=== PATIENT | male | born 1960 | race Caucasian/White ===

== ENCOUNTER 2023-04-08 11:30 | Outpatient (REF) | payer OTHER, SELFPAY ==
[2023-04-08 15:48] LABS: Bilirubin Urine NEGATIVE (NEGATIVE); Blood Urine TRACE-I (NEGATIVE); Clarity Urine CLEAR (CLEAR); Color Urine LT. YELLOW (YELLOW); Glucose Urine UA NEGATIVE (NEGATIVE); Ketones Urine NEGATIVE (NEGATIVE); Leukocyte Esterase Urine TRACE (NEGATIVE); Nitrite Urine NEGATIVE (NEGATIVE); Protein Urine NEGATIVE (NEG/TRACE); Specific Gravity Urine 1.025 (1.005-1.025); Urobilinogen Urine 0.2 EU/dL (0.2-1.0); pH Urine 5.5 (5.0-9.0)
[2023-04-08 15:54] LABS: Bacteria Urine TRACE #/HPF (NONE SEEN); Crystals Seen? Seen #/HPF (None Seen); Mucus Urine NONE SEEN (NONE SEEN); Squamous Epithelial Cell Urine RARE #/LPF (NONE/RARE)
[2023-04-08 15:55] LABS: Calcium Oxalate Crystals Urine FEW; Cast Seen? NONE SEEN #/LPF (NONE SEEN); Urine Culture Indicated ALREADY ORDERED
== END 2023-04-08 11:53 ==
LOC: LAB 11:30
PROVIDERS: PCP Family Medicine; Visit Provider Family Medicine
DX: N31.9 Neuromuscular dysfunction of bladder, unspecified (principal)
CPT/HCPCS: 81001; 81003; 87086

== ENCOUNTER 2023-04-22 08:00 | Outpatient (REF) | payer OTHER, SELFPAY | END 2023-04-22 08:01 | LOC: LAB 08:00 | PROVIDERS: PCP Family Medicine; Visit Provider Family Medicine | DX: N31.9 Neuromuscular dysfunction of bladder, unspecified (principal) | CPT/HCPCS: 87086; 87150; 87186 ==

== ENCOUNTER 2023-05-14 14:20 | Outpatient (REF) | payer OTHER, SELFPAY ==
[2023-05-14 15:00] LABS: Bilirubin Urine NEGATIVE (NEGATIVE); Blood Urine TRACE-I (NEGATIVE); Clarity Urine CLEAR (CLEAR); Color Urine LT. YELLOW (YELLOW); Glucose Urine UA NEGATIVE (NEGATIVE); Ketones Urine NEGATIVE (NEGATIVE); Leukocyte Esterase Urine SMALL (NEGATIVE); Nitrite Urine NEGATIVE (NEGATIVE); Protein Urine NEGATIVE (NEG/TRACE); Specific Gravity Urine 1.015 (1.005-1.025); Urobilinogen Urine 0.2 EU/dL (0.2-1.0); pH Urine 5.5 (5.0-9.0)
[2023-05-14 15:44] LABS: Bacteria Urine SMALL #/HPF (NONE SEEN); Mucus Urine NONE SEEN (NONE SEEN); Squamous Epithelial Cell Urine FEW #/LPF (NONE/RARE); WBC Urine 20-50 #/HPF (NONE SEEN)
[2023-05-14 15:45] LABS: Cast Seen? NONE SEEN #/LPF (NONE SEEN); Crystals Seen? None Seen #/HPF (None Seen)
[2023-05-14 15:46] LABS: Urine Culture Indicated ALREADY ORDERED
== END 2023-05-14 14:21 | disposition home or self-care (01) ==
LOC: LAB 14:20
PROVIDERS: PCP Family Medicine; Visit Provider Family Medicine
DX: N31.9 Neuromuscular dysfunction of bladder, unspecified (principal)
CPT/HCPCS: 81001; 87086; 87150; 87186

== ENCOUNTER 2023-06-05 12:43 | Outpatient (REF) | payer OTHER, SELFPAY ==
[2023-06-05 12:51] LABS: Bilirubin Urine NEGATIVE (NEGATIVE); Blood Urine MODERATE (NEGATIVE); Clarity Urine CLEAR (CLEAR); Color Urine LT. YELLOW (YELLOW); Glucose Urine UA NEGATIVE (NEGATIVE); Ketones Urine NEGATIVE (NEGATIVE); Leukocyte Esterase Urine LARGE (NEGATIVE); Nitrite Urine NEGATIVE (NEGATIVE); Protein Urine NEGATIVE (NEG/TRACE); Urobilinogen Urine 0.2 EU/dL (0.2-1.0); pH Urine 5.5 (5.0-9.0)
[2023-06-05 13:09] LABS: Bacteria Urine SMALL #/HPF (NONE SEEN); Mucus Urine NONE SEEN (NONE SEEN); Squamous Epithelial Cell Urine NONE SEEN #/LPF (NONE/RARE); WBC Urine 20-50 #/HPF (NONE SEEN)
[2023-06-05 13:10] LABS: Cast Seen? NONE SEEN #/LPF (NONE SEEN); Crystals Seen? None Seen #/HPF (None Seen)
== END 2023-06-05 12:44 | disposition home or self-care (01) ==
LOC: LAB 12:43
PROVIDERS: PCP Family Medicine; Visit Provider Family Medicine
DX: N31.9 Neuromuscular dysfunction of bladder, unspecified (principal)
CPT/HCPCS: 81001; 87086; 87150; 87186

== ENCOUNTER 2023-06-25 14:51 | Outpatient (REF) | payer OTHER, SELFPAY ==
[2023-06-25 15:01] LABS: Bilirubin Urine NEGATIVE (NEGATIVE); Blood Urine SMALL (NEGATIVE); Clarity Urine CLEAR (CLEAR); Color Urine LT. YELLOW (YELLOW); Glucose Urine UA NEGATIVE (NEGATIVE); Ketones Urine NEGATIVE (NEGATIVE); Leukocyte Esterase Urine LARGE (NEGATIVE); Nitrite Urine NEGATIVE (NEGATIVE); Protein Urine TRACE mg/dL (NEG/TRACE); Urobilinogen Urine 0.2 EU/dL (0.2-1.0); pH Urine 5.5 (5.0-9.0)
[2023-06-25 15:06] LABS: Bacteria Urine TRACE #/HPF (NONE SEEN); Mucus Urine NONE SEEN (NONE SEEN); RBC Urine 0-2 #/HPF (0-2); WBC Urine 75-100 #/HPF (NONE SEEN)
[2023-06-25 15:07] LABS: Cast Seen? NONE SEEN #/LPF (NONE SEEN); Crystals Seen? None Seen #/HPF (None Seen); Squamous Epithelial Cell Urine NONE SEEN #/LPF (NONE/RARE); Urine Culture Indicated ALREADY ORDERED
== END 2023-06-25 14:52 | disposition home or self-care (01) ==
LOC: LAB 14:51
PROVIDERS: PCP Family Medicine; Visit Provider Family Medicine
DX: N31.9 Neuromuscular dysfunction of bladder, unspecified (principal)
CPT/HCPCS: 81001; 87086

== ENCOUNTER 2023-07-10 10:06 | Outpatient (REF) | payer OTHER, SELFPAY ==
[2023-07-10 16:01] LABS: Bilirubin Urine NEGATIVE (NEGATIVE); Blood Urine TRACE-I (NEGATIVE); Clarity Urine CLEAR (CLEAR); Color Urine LT. YELLOW (YELLOW); Glucose Urine UA NEGATIVE (NEGATIVE); Ketones Urine NEGATIVE (NEGATIVE); Leukocyte Esterase Urine MODERATE (NEGATIVE); Nitrite Urine NEGATIVE (NEGATIVE); Protein Urine NEGATIVE (NEG/TRACE); Urobilinogen Urine 0.2 EU/dL (0.2-1.0); pH Urine 5.5 (5.0-9.0)
[2023-07-10 16:53] LABS: Bacteria Urine MODERATE #/HPF (NONE SEEN); Crystals Seen? None Seen #/HPF (None Seen); Mucus Urine NONE SEEN (NONE SEEN); RBC Urine 0-2 #/HPF (0-2); Squamous Epithelial Cell Urine FEW #/LPF (NONE/RARE); WBC Urine 20-50 #/HPF (NONE SEEN)
[2023-07-10 16:54] LABS: Cast Seen? NONE SEEN #/LPF (NONE SEEN); Urine Culture Indicated ALREADY ORDERED
== END 2023-07-10 10:07 | disposition home or self-care (01) ==
LOC: LAB 10:06
PROVIDERS: PCP Family Medicine; Visit Provider Family Medicine
DX: N31.9 Neuromuscular dysfunction of bladder, unspecified (principal); R82.998 Other abnormal findings in urine
CPT/HCPCS: 81001; 87086; 87150; 87186

== ENCOUNTER 2023-07-31 13:07 | Outpatient (REF) | payer OTHER, SELFPAY ==
[2023-07-31 13:26] LABS: Bilirubin Urine NEGATIVE (NEGATIVE); Blood Urine SMALL (NEGATIVE); Clarity Urine CLEAR (CLEAR); Color Urine LT. YELLOW (YELLOW); Glucose Urine UA NEGATIVE (NEGATIVE); Ketones Urine NEGATIVE (NEGATIVE); Leukocyte Esterase Urine LARGE (NEGATIVE); Nitrite Urine NEGATIVE (NEGATIVE); Protein Urine NEGATIVE (NEG/TRACE); Specific Gravity Urine <=1.005 (1.005-1.025); Urobilinogen Urine 0.2 EU/dL (0.2-1.0)
[2023-07-31 13:47] LABS: Bacteria Urine MODERATE #/HPF (NONE SEEN); WBC Urine >100 #/HPF (NONE SEEN)
[2023-07-31 13:48] LABS: Mucus Urine NONE SEEN (NONE SEEN); Squamous Epithelial Cell Urine FEW #/LPF (NONE/RARE); Urine Culture Indicated ALREADY ORDERED
== END 2023-07-31 13:08 | disposition home or self-care (01) ==
LOC: LAB 13:07
PROVIDERS: PCP Family Medicine; Visit Provider Family Medicine
DX: N31.9 Neuromuscular dysfunction of bladder, unspecified (principal)
CPT/HCPCS: 81001; 87086

== ENCOUNTER 2023-08-25 14:55 | Outpatient (OUT) | payer OTHER, SELFPAY ==
--- NOTE | 2023-08-25 14:59 | XR_ITS ---
The [address] [address] Patient Name: JESSICA PIZARRO MRN: [id number] date: 1960 Sex: M Assigned Patient Location: RAD Current Patient Location: Accession/Order Number: [id number] Exam Date: 08/25/2023 15:12 Report Date: 08/27/2023 09:15 At the request of: IHSAN PAREKH Procedure: XR foot LT min 3V PROCEDURE: XR foot LT min 3V HISTORY: Left Heel Ulcer COMPARISON: XR healed left 04/11/2021 FINDINGS: BONES:Multifocal mild degenerative joint disease. No appreciable bone destruction or bone erosion. SOFT TISSUES:Marked soft tissue swelling of the foot. Suspect skin surface defect along the plantar surface of heel. EFFUSION:None visible. OTHER: Negative. XR/XR foot LT min 3V IMPRESSION: 1. Marked soft tissue swelling. 2. No acute bone abnormality or findings to suggest osteomyelitis. Electronically authenticated by: ELENO PARKER Date: 08/27/2023 09:15
== END 2023-08-25 14:56 | disposition home or self-care (01) ==
LOC: RAD 14:55
PROVIDERS: PCP Family Medicine; Visit Provider Nurse Practitioner Adult Health
DX: L97.529 Non-pressure chronic ulcer of other part of left foot with unspecified severity (principal)
CPT/HCPCS: 73630

== ENCOUNTER 2023-09-08 13:49 | Outpatient (REF) | payer OTHER, SELFPAY ==
[2023-09-08 14:01] LABS: Bilirubin Urine NEGATIVE (NEGATIVE); Blood Urine SMALL (NEGATIVE); Color Urine LT. YELLOW (YELLOW); Glucose Urine UA NEGATIVE (NEGATIVE); Ketones Urine NEGATIVE (NEGATIVE); Leukocyte Esterase Urine LARGE (NEGATIVE); Nitrite Urine NEGATIVE (NEGATIVE); Protein Urine NEGATIVE (NEG/TRACE); Specific Gravity Urine 1.015 (1.005-1.025); Urobilinogen Urine 0.2 EU/dL (0.2-1.0)
[2023-09-08 14:02] LABS: Clarity Urine SLIGHTLY CLOUDY (CLEAR)
[2023-09-08 14:07] LABS: Bacteria Urine SMALL #/HPF (NONE SEEN); Cast Seen? NONE SEEN #/LPF (NONE SEEN); Crystals Seen? None Seen #/HPF (None Seen); Mucus Urine NONE SEEN (NONE SEEN); RBC Urine 0-2 #/HPF (0-2); Squamous Epithelial Cell Urine RARE #/LPF (NONE/RARE)
== END 2023-09-08 13:50 | disposition home or self-care (01) ==
LOC: LAB 13:49
PROVIDERS: PCP Family Medicine; Visit Provider Family Medicine
DX: N31.9 Neuromuscular dysfunction of bladder, unspecified (principal)
CPT/HCPCS: 81001; 87086; 87150; 87186

== ENCOUNTER 2023-09-24 13:42 | Outpatient (REF) | payer OTHER, SELFPAY ==
[2023-09-24 13:51] LABS: Bilirubin Urine NEGATIVE (NEGATIVE); Blood Urine TRACE-L (NEGATIVE); Clarity Urine CLEAR (CLEAR); Color Urine LT. YELLOW (YELLOW); Glucose Urine UA NEGATIVE (NEGATIVE); Ketones Urine NEGATIVE (NEGATIVE); Leukocyte Esterase Urine MODERATE (NEGATIVE); Nitrite Urine NEGATIVE (NEGATIVE); Protein Urine NEGATIVE (NEG/TRACE); Specific Gravity Urine 1.015 (1.005-1.025); Urobilinogen Urine 0.2 EU/dL (0.2-1.0)
[2023-09-24 13:57] LABS: Bacteria Urine TRACE #/HPF (NONE SEEN); Cast Seen? NONE SEEN #/LPF (NONE SEEN); Crystals Seen? None Seen #/HPF (None Seen); Mucus Urine NONE SEEN (NONE SEEN); Squamous Epithelial Cell Urine RARE #/LPF (NONE/RARE)
== END 2023-09-24 13:43 | disposition home or self-care (01) ==
LOC: LAB 13:42
PROVIDERS: PCP Family Medicine; Visit Provider Family Medicine
DX: N31.9 Neuromuscular dysfunction of bladder, unspecified (principal)
CPT/HCPCS: 81001; 87086

== ENCOUNTER 2023-10-02 14:23 | Outpatient (REF) | payer OTHER, SELFPAY ==
[2023-10-02 14:59] LABS: Bilirubin Urine NEGATIVE (NEGATIVE); Blood Urine SMALL (NEGATIVE); Clarity Urine CLEAR (CLEAR); Color Urine LT. YELLOW (YELLOW); Glucose Urine UA NEGATIVE (NEGATIVE); Ketones Urine NEGATIVE (NEGATIVE); Leukocyte Esterase Urine MODERATE (NEGATIVE); Nitrite Urine POSITIVE (NEGATIVE); Protein Urine NEGATIVE (NEG/TRACE); Specific Gravity Urine 1.015 (1.005-1.025); Urobilinogen Urine 0.2 EU/dL (0.2-1.0)
[2023-10-02 15:49] LABS: Bacteria Urine LARGE #/HPF (NONE SEEN); Mucus Urine NONE SEEN (NONE SEEN); Squamous Epithelial Cell Urine FEW #/LPF (NONE/RARE)
[2023-10-02 15:50] LABS: Cast Seen? NONE SEEN #/LPF (NONE SEEN); Crystals Seen? None Seen #/HPF (None Seen); Urine Culture Indicated ALREADY ORDERED
== END 2023-10-02 14:24 | disposition home or self-care (01) ==
LOC: LAB 14:23
PROVIDERS: PCP Family Medicine; Visit Provider Family Medicine
DX: N31.9 Neuromuscular dysfunction of bladder, unspecified (principal)
CPT/HCPCS: 81001; 87086; 87186

== ENCOUNTER 2023-10-21 12:59 | Outpatient (OUT) | payer OTHER, SELFPAY ==
[2023-10-21 13:11] LABS: Bilirubin Urine NEGATIVE (NEGATIVE); Blood Urine TRACE-I (NEGATIVE); Clarity Urine SLIGHTLY CLOUDY (CLEAR); Color Urine LT. YELLOW (YELLOW); Glucose Urine UA NEGATIVE (NEGATIVE); Ketones Urine NEGATIVE (NEGATIVE); Leukocyte Esterase Urine LARGE (NEGATIVE); Nitrite Urine NEGATIVE (NEGATIVE); Protein Urine NEGATIVE (NEG/TRACE); Urobilinogen Urine 0.2 EU/dL (0.2-1.0)
[2023-10-21 13:17] LABS: Bacteria Urine SMALL #/HPF (NONE SEEN); Cast Seen? NONE SEEN #/LPF (NONE SEEN); Crystals Seen? None Seen #/HPF (None Seen); Mucus Urine NONE SEEN (NONE SEEN); RBC Urine 0-2 #/HPF (0-2); Squamous Epithelial Cell Urine NONE SEEN #/LPF (NONE/RARE)
== END 2023-10-21 13:00 | disposition home or self-care (01) ==
LOC: LAB 10-22 13:00
PROVIDERS: PCP Family Medicine; Visit Provider Family Medicine
DX: N31.9 Neuromuscular dysfunction of bladder, unspecified (principal)
CPT/HCPCS: 81001; 87086; 87150; 87186

== ENCOUNTER 2023-11-10 14:34 | Outpatient (OUT) | payer OTHER, SELFPAY ==
--- OUTSIDE RECORDS SUMMARY | 2023-11-10 14:38 | XMS_ITS | CCD ---
Author Name Unknown Address [address] [facility] [facility] [address] [place] [address] Organization [facility] Care Team Providers Care Sprinkler Helper Name Role Phone HOY ., DR WEBBER Consulting Unavailable HOY ., DR WEBBER Admitting Unavailable HOY ., DR WEBBER Attending Unavailable HOY ., DR WEBBER Primary Care Unavailable HOY ., DR WEBBER Consulting Unavailable HOY ., DR WEBBER Attending Unavailable HOY ., DR WEBBER Admherman Unavailable HOY ., DR WEBBER Primary Care Unavailable HOY ., DR WEBBER Consulting Unavailable HOY ., DR WEBBER Attending Unavailable HOY ., DR WEBBER Primary Care Unavailable HOY ., DR WEBBER Admherman Unavailable WEST, DR MAGY [place] Consulting Unavailable HOY ., DR WEBBER Consulting Unavailable HOY ., DR WEBBER Attending Unavailable HOY ., DR WEBBER Admherman Unavailable HOY ., DR WEBBER Primary Care Unavailable HOY ., DR WEBBER Consulting Unavailable HOY ., DR WEBBER Attending Unavailable HOY ., DR WEBBER Admherman Unavailable HOY ., DR WEBBER Primary Care Unavailable HOY ., DR WEBBER Consulting Unavailable HOY ., DR WEBBER Admherman Unavailable HOY ., DR WEBBER Attending Unavailable HOY ., DR WEBBER Primary Care Unavailable HOY ., DR WEBBER Consulting Unavailable HOY ., DR WEBBER Attending Unavailable HOY ., DR WEBBER Primary Care Unavailable HOY ., DR WEBBER Admherman Unavailable HOY ., DR WEBBER Consulting Unavailable HOY ., DR WEBBER Attending Unavailable HOY ., DR WEBBER Primary Care Unavailable HOY ., DR WEBBER Admitting Unavailable HOY ., DR WEBBER Consulting Unavailable HOY ., DR WEBBER Admherman Unavailable HOY ., DR WEBBER Attending Unavailable HOY ., DR WEBBER Primary Care Unavailable HOY ., DR WEBBER Primary Care Unavailable HOY ., DR WEBBER Admherman Unavailable HOY ., DR WEBBER Attending Unavailable HOY ., DR WEBBER Consulting Unavailable HOY ., DR WEBBER Admitting Unavailable HOY ., DR WEBBER Attending Unavailable HOY ., DR WEBBER Primary Care Unavailable HOY ., DR WEBBER Consulting Unavailable HOY ., DR WEBBER Admitting Unavailable HOY ., DR WEBBER Attending Unavailable HOY ., DR WEBBER Consulting Unavailable HOY ., DR WEBBER Primary Care Unavailable HOY ., DR WEBBER Primary Care Unavailable HOY ., DR WEBBER Admitting Unavailable HOY ., DR WEBBER Attending Unavailable HOY ., DR WEBBER Consulting Unavailable HOY ., DR WEBBER Primary Care Unavailable HOY ., DR WEBBER Admitting Unavailable HOY ., DR WEBBER Attending Unavailable HOY ., DR WEBBER Consulting Unavailable HOY ., DR WEBBER Admitting Unavailable HOY ., DR WEBBER Attending Unavailable HOY ., DR WEBBER Primary Care Unavailable HOY ., DR WEBBER Consulting Unavailable HOY ., DR WEBBER Primary Care Unavailable HOY ., DR WEBBER Admitting Unavailable HOY ., DR WEBBER Attending Unavailable HOY ., DR WEBBER Consulting Unavailable HOY ., DR WEBBER Consulting Unavailable HOY ., DR WEBBER Attending Unavailable HOY ., DR WEBBER Primary Care Unavailable HOY ., DR WEBBER Admitting Unavailable ZIEBER, DR ELENO Vo Consulting Unavailable HOY ., DR WEBBER Consulting Unavailable HOY ., DR WEBBER Attending Unavailable HOY ., DR WEBBER Primary Care Unavailable HOY ., DR WEBBER Admitting Unavailable HOY ., DR WEBBER Consulting Unavailable HOY ., DR WEBBER Attending Unavailable HOY ., DR WEBBER Admitting Unavailable HOY ., DR WEBBER Primary Care Unavailable DAREN, FIRAS Referring Unavailable Allergies Allergy Classification Reported Allergen(s) Allergy Type Date of Onset Reaction(s) Facility (1 source) ceFAZolin Drug Allergy 04-21-[address] [facility] Repository (1 source) Cilastatin / Imipenem Drug Allergy 04-21-[address] [facility] Repository (1 source) Readi-Cat Drug allergy (disorder) 04-21-[address] [facility] Repository (1 source) ceFAZolin; Translations: [CEFAZOLIN] Drug Allergy 12-01-19 13 [facility] Repository (1 source) Cephalexin; Translations: [CEPHALEXIN MONOHYDRATE] Drug Allergy 08-03-20 09 [facility] Repository (1 source) Promazine; Translations: [PROMAZINE] Drug Allergy 12-01-19 13 [facility] Repository (1 source) Sulfamethoxazole / Trimethoprim; Translations: [SULFAMETHOXAZOLE-TR IMETHOPRIM] Drug Allergy 03-10-20 23 [facility] Repository (1 source) IODINATED CONTRAST MEDIA; Translations: [IODINATED CONTRAST MEDIA] Propensity to adverse reactions to drug (disorder) 12-01-19 13 [facility] Repository Problems Active Problems Problem Classification Problem Date Documented Date Episodic/Chronic Other diseases of bladder and urethra (5 sources) Neuromuscular dysfunction of bladder, unspecified; Translations: [NEUROMUSCULR DYSFNCTION BLADDER UNS] Onset: 10-01-2022 Chronic Other diseases of bladder and urethra (2 sources) Bladder disorder, unspecified; Translations: [Bladder disorder, unspecified] Onset: 03-10-2023 Chronic Other diseases of kidney and ureters (1 source) Disorder of kidney and ureter, unspecified; Translations: [DISORDER KIDNEY AND URETER UNS] Onset: 12-05-2022 Episodic Other liver diseases (1 source) Hepatomegaly, not elsewhere classified; Translations: [HEPATOMEGALY NEC] Onset: 12-05-2022 Episodic Other screening for suspected conditions (not mental disorders or infectious disease) (1 source) Abnormal findings on diagnostic imaging of other abdominal regions, including retroperitoneum; Translations: [ABN FIND DX IMAG OTH AB REGION W/RP] Onset: 12-05-2022 Episodic Past or Other Problems Problem Classification Problem Date Documented Da te Episodic/Chronic Urinary tract infections (5 sources) Urinary tract infection, site not specified; Translations: [UTI SITE NOT SPECIFIED] Onset: 09-24-2022 Episodic Results Test Name Value Interpretation Reference Range Facil ity Aerobic Cultureon 06-03-2023 Aerobic Culture ORGANISM: Staphylococcus aureus (O:STAAUR) Quantity of Growth Light Growth ORGANISM: Alcaligenes faecalis (O:ALCFAE) Quantity of Growth Light Growth No Anaerobes Isolated 3 Days Gram Stain Result No Bacteria Seen Aerobic GUSTABO Charge (PCMIC38) ---- SUSCEPTIBILITY --- ORGANISM: O:STAAUR ANTIBIOTIC INTERPRETATION GUSTABO Azithromycin R >4 Ceftaroline S <0.5 Ciprofloxacin R >2 Clindamycin S <0.25 Daptomycin S <0.5 Levofloxacin R >4 Linezolid S 2 Oxacillin S 0.5 Penicillin COREY >2 Tetracycline S <4 Trimethoprim/Sulfamet hoxazole R >2 Vancomycin S 1 Aerobic GUSTABO Charge (NMIC56) ---- SUSCEPTIBILITY --- ORGANISM: O:ALCFAE ANTIBIOTIC INTERPRETATION GUSTABO Amikacin S <16 Aztreonam R >16 Cefepime S 8 Ceftazidime S 4 Ceftriaxone S <1 Gentamicin S <2 Piperacillin/Tazobact am S <8 Tetracycline S <4 Tobramycin S 4 Trimethoprim/Sulfamet hoxazole S <0.5 S = SUSCEPTIBLE I = INTERMEDIATE R = RESISTANT BLANK = DATA NOT AVAILABLE, OR DRUG NOT ADVISABLE OR TESTED R* = RESISTANCE DUE TO EXTENDED SPECTRUM BETA-LACTAMASES ESBL = EXTENDED SPECTRUM BETA-LACTAMASE TFG = THYMIDINE-DEPENDENT STRAIN COREY = BETA-LACTAMASE POSITIVE IB = INDUCIBLE BETA-LACTAMASE. APPEARS IN PLACE OF 'S' WITH SPECIES KNOWN TO POSSESS INDUCIBLE BETA-LACTAMASES. POTENTIALLY THEY MAY BECOME RESISTANT TO ALL B-LACTAM DRUGS. PERFORMED BY: [place] [address] PATHOLOGIST RADIO TECHNICIAN MARLA VEGA M.D. [facility] Comment on above: Performed By: #### A MAI LAYNE #### [address] Gram Stainon 06-03-2023 Microscopic observation Gram stain Nom (Unsp spec) Gram Stain Result No Bacteria Seen PERFORMED BY: [place] [address] PATHOLOGIST RADIO TECHNICIAN MARLA VEGA M.D. [facility] Comment on above: Performed By: #### A MAI LAYNE #### [address] [place] [address] [facility] CULTURE URINEon 03-06-2023 CULTURE URINE Isolate 1 Serratia marcescens >100,000 cfu/mL of Isolate 2 Pseudomonas aeruginosa >100,000 cfu/mL of ORGANISM 1 Serratia marcescens ANTIBIOTIC M.I.C RX STATUS Cefazolin >=64 R F Ceftazidime <=1 S F Ceftriaxone <=1 S F Ertapenem <=0.5 S F Amikacin <=2 S F Gentamicin <=1 S F Tobramycin <=1 S F Ciprofloxacin <=0.25 S F Levofloxacin <=0.12 S F Nitrofurantoin 128 R F Trimethoprim/Sulfamet hoxazole <=20 S F ORGANISM 2 Pseudomonas aeruginosa ANTIBIOTIC M.I.C RX STATUS Piperacillin/Tazobact am 32 S F Ceftazidime 8 S F Imipenem 1 S F Amikacin <=2 S F Gentamicin <=1 S F Tobramycin <=1 S F Ciprofloxacin 0.5 S F Levofloxacin 2 S F Normal [facility] Comment on above: Performed By: #### U RCX #### [facility] [address] [place] [address] Dr. Marvin Reis UA RANDOM W/MICROSCOPICon BACTERIA SMALL Abnormal NONE SEEN [facility] Comment on above: Performed By: #### U AMIC #### [facility] [address] [place] [address] Dr. Marvin Reis Bilirubin Ql (U) Negative Normal NEGATIVE [facility] Comment on above: Performed By: #### U AMIC #### [facility] [address] [place] [address] Dr. Marvin Reis CAST NONE SEEN Normal NONE SEEN [facility] Comment on above: Performed By: #### U AMIC #### [facility] [address] [place] [address] Dr. Marvin Reis Clarity (U) CLEAR Normal CLEAR [facility] Comment on above: Performed By: #### U AMIC #### [facility] [address] [place] [address] Dr. Marvin Reis Color (U) LT. YELLOW Normal YELLOW [facility] Comment on above: Performed By: #### U AMIC #### [facility] [address] [address] [address] Marvin Reis Crystals LM Nom (Urine sed) NONE SEEN Normal NONE SEEN [facility] Comment on above: Performed By: #### U AMIC #### [facility] [address] [address] [address] Marvin Reis Epithelial cells LM Ql (Urine sed) RARE Normal NONE SEEN /RARE [facility] Comment on above: Performed By: #### U AMIC #### [facility] [address] [address] [address] Marvin Reis Glucose Ql (U) Negative Normal NEGATIVE [facility] Comment on above: Performed By: #### U AMIC #### [facility] [address] [address] [address] Marvin Reis Hemoglobin Ql (U) Negative Normal NEGATIVE [facility] Comment on above: Performed By: #### U AMIC #### [facility] [address] [address] [address] Marvin Reis Ketones Ql (U) Negative Normal NEGATIVE [facility] Comment on above: Performed By: #### U AMIC #### [facility] [address] [address] [address] Marvin Reis LEUKOCYTES SMALL Abnormal NEGATIVE [facility] Comment on above: Performed By: #### U AMIC #### [facility] [address] [address] [address] Marvin Reis MUCOUS NONE SEEN Normal NONE SEEN [facility] Comment on above: Performed By: #### U AMIC #### [facility] [address] [address] [address] Marvin Reis Nitrite Ql (U) Negative Normal NEGATIVE [facility] Comment on above: Performed By: #### U AMIC #### [facility] [address] [address] [address] Marvin Reis pH (U) 6.0 [pH] Normal 5-[address] [facility] Comment on above: Performed By: #### U AMIC #### [facility] [address] [place] [address] Dr. Marvin Reis RBC 0-2 Normal 0-[address] [facility] Comment on above: Performed By: #### U AMIC #### [facility] [address] [place] [address] Dr. Marvin Reis SPEC GRAVITY 1.010 Normal 1.005-<=1.025 [facility] Comment on above: Performed By: #### U AMIC #### [facility] [address] [place] [address] Dr. Marvin Reis UA PROTEIN Negative Normal NEGATIVE/ TRACE [facility] Comment on above: Performed By: #### U AMIC #### [facility] [address] [place] [address] Dr. Marvin Reis Urobilinogen Qn (U) 0.2 {Robbie'U}/dL Normal 0.2 - 1. 0 [facility] Comment on above: Performed By: #### U AMIC #### [facility] [address] [place] [address] Dr. Marvin Reis WBC 5-10 Abnormal NONE SEEN [facility] Comment on above: Performed By: #### U AMIC #### [facility] [address] [place] [address] Dr. Marvin Reis CULTURE URINEon 02-13-2023 CULTURE URINE Isolate 1 Klebsiella pneumoniae >100,000 cfu/mL of Isolate 2 Pseudomonas aeruginosa >100,000 cfu/ml of ORGANISM 1 Klebsiella pneumoniae ANTIBIOTIC M.I.C RX STATUS Ampicillin >=32 R F Ampicillin/Sulbactam 4 S F Piperacillin/Tazobact am 8 S F Cefazolin <=4 S F Ceftazidime <=1 S F Ceftriaxone <=1 S F Ertapenem <=0.5 S F Imipenem <=0.25 S F Amikacin <=2 S F Gentamicin <=1 S F Tobramycin <=1 S F Ciprofloxacin 1 S F Levofloxacin 1 S F Nitrofurantoin 128 R F Trimethoprim/Sulfamet hoxazole <=20 S F ORGANISM 2 Pseudomonas aeruginosa ANTIBIOTIC M.I.C RX STATUS Piperacillin/Tazobact am 32 S F Ceftazidime 4 S F Imipenem 1 S F Amikacin <=2 S F Gentamicin <=1 S F Tobramycin <=1 S F Ciprofloxacin 1 S F Levofloxacin 2 S F Normal [facility] Comment on above: Performed By: #### U RCX #### [facility] [address] [place] [address] Dr. Marvin Reis UA RANDOM W/MICROSCOPICon BACTERIA MODERATE Abnormal NONE SEEN [facility] Comment on above: Performed By: #### U AMIC #### [facility] [address] [place] [address] Dr. Marvin Reis Bilirubin Ql (U) Negative Normal NEGATIVE [facility] Comment on above: Performed By: #### U AMIC #### [facility] [address] [place] [address] Dr. Marvin Reis CAST NONE SEEN Normal NONE SEEN [facility] Comment on above: Performed By: #### U AMIC #### [facility] [address] [place] [address] Dr. Marvin Reis Clarity (U) CLEAR Normal CLEAR [facility] Comment on above: Performed By: #### U AMIC #### [facility] [address] [place] [address] Dr. Marvin Reis Color (U) LT. YELLOW Normal YELLOW [facility] Comment on above: Performed By: #### U AMIC #### [facility] [address] [place] [address] Dr. Marvin Reis Crystals LM Nom (Urine sed) NONE SEEN Normal NONE SEEN [facility] Comment on above: Performed By: #### U AMIC #### [facility] [address] [place] [address] Dr. Marvin Reis Epithelial cells LM Ql (Urine sed) MODERATE Abnormal NONE SEEN /RARE [facility] Comment on above: Performed By: #### U AMIC #### [facility] [address] [place] [address] Dr. Marvin Reis Glucose Ql (U) Negative Normal NEGATIVE [facility] Comment on above: Performed By: #### U AMIC #### [facility] [address] [address] [address] Marvin Reis Hemoglobin Ql (U) SMALL Abnormal NEGATIVE [facility] Comment on above: Performed By: #### U AMIC #### [facility] [address] [address] [address] Marvin Reis Ketones Ql (U) Negative Normal NEGATIVE [facility] Comment on above: Performed By: #### U AMIC #### [facility] [address] [place] [address] Dr. Marvin Reis LEUKOCYTES LARGE Abnormal NEGATIVE [facility] Comment on above: Performed By: #### U AMIC #### [facility] [address] [place] [address] Dr. Marvin Reis MUCOUS NONE SEEN Normal NONE SEEN [facility] Comment on above: Performed By: #### U AMIC #### [facility] [address] [place] [address] Dr. Marvin Reis Nitrite Ql (U) Positive Abnormal NEGATIVE [facility] Comment on above: Performed By: #### U AMIC #### [facility] [address] [place] [address] Dr. Marvin Reis pH (U) 5.5 [pH] Normal 5-[address] [facility] Comment on above: Performed By: #### U AMIC #### [facility] [address] [place] [address] Dr. Marvin Reis RBC 5-10 Abnormal 0-[address] [facility] Comment on above: Performed By: #### U AMIC #### [facility] [address] [place] [address] Dr. Marvin Reis SPEC GRAVITY 1.015 Normal 1.005-<=1.025 [facility] Comment on above: Performed By: #### U AMIC #### [facility] [address] [place] [address] Dr. Marvin Reis UA PROTEIN Negative Normal NEGATIVE/ TRACE [facility] Comment on above: Performed By: #### U AMIC #### [facility] [address] [place] [address] Dr. Marvin Reis Urobilinogen Qn (U) 0.2 {Robbie'U}/dL Normal 0.2 - 1. [address] [facility] Comment on above: Performed By: #### U AMIC #### [facility] [address] [place] [address] Dr. Marvin Reis WBC 50-75 Abnormal [address] SEEN [facility] Comment on above: Performed By: #### U AMIC #### [facility] [address] [place] [address] Dr. Marvin Reis CULTURE URINEon 01-23-2023 CULTURE URINE Isolate 1 Staphylococcus haemolyticus >100,000 cfu/mL of Isolate 2 Enterococcus faecium >100,000 cfu/mL of ORGANISM 2 Enterococcus faecium ANTIBIOTIC M.I.C RX STATUS Beta-Lactamase Neg NEG F Benzylpenicillin 1 S F Ampicillin <=2 S F Gentamicin High Level (synergy) SYN-S S F Streptomycin High Level (synergy) SYN-S S F Ciprofloxacin <=0.5 S F Levofloxacin 0.5 S F Quinupristin/Dalfopri stin 1 S F Linezolid 2 S F Vancomycin <=0.5 S F Tetracycline >=16 R F Nitrofurantoin 64 I F ORGANISM 1 Staphylococcus haemolyticus ANTIBIOTIC M.I.C RX STATUS Beta-Lactamase Pos POS F Cefoxitin Screen Pos POS F Benzylpenicillin >=0.5 R F Oxacillin >=4 R F Gentamicin <=0.5 S F Ciprofloxacin <=0.5 S F Levofloxacin <=0.12 S F Inducible Clindamycin Resistance Pos POS F Quinupristin/Dalfopri stin <=0.25 S F Linezolid 1 S F Vancomycin <=0.5 S F Tetracycline >=16 R F Nitrofurantoin <=16 S F Rifampicin <=0.5 S F Trimethoprim/Sulfamet hoxazole <=10 S F Normal [address] [facility] Comment on above: Performed By: #### U AMIC #### [facility] [address] [place] [address] Dr. Marvin Reis UA RANDOM W/MICROSCOPICon BACTERIA TRACE Abnormal NONE SEEN [facility] Comment on above: Performed By: #### U AMIC #### [facility] [address] [address] [address] Marvin Reis Bilirubin Ql (U) Negative Normal NEGATIVE [facility] Comment on above: Performed By: #### U AMIC #### [facility] [address] [address] [address] Marvin Reis CAST NONE SEEN Normal NONE SEEN [facility] Comment on above: Performed By: #### U AMIC #### [facility] [address] [address] [address] Marvin Reis Clarity (U) SL CLOUDY Abnormal CLEAR [facility] Comment on above: Performed By: #### U AMIC #### [facility] [address] [address] [address] Marvin Reis Color (U) LT. YELLOW Normal YELLOW [facility] Comment on above: Performed By: #### U AMIC #### [facility] [address] [place] [address] Dr. Marvin Reis Crystals LM Nom (Urine sed) NONE SEEN Normal NONE SEEN [facility] Comment on above: Performed By: #### U AMIC #### [facility] [address] [place] [address] Dr. Marvin Reis Epithelial cells LM Ql (Urine sed) NONE SEEN Normal NONE SEEN /RARE [facility] Comment on above: Performed By: #### U AMIC #### [facility] [address] [place] [address] Dr. Marvin Reis Glucose Ql (U) Negative Normal NEGATIVE [facility] Comment on above: Performed By: #### U AMIC #### [facility] [address] [place] [address] Dr. Marvin Reis Hemoglobin Ql (U) Negative Normal NEGATIVE [facility] Comment on above: Performed By: #### U AMIC #### [facility] [address] [place] [address] Dr. Marvin Reis Ketones Ql (U) Negative Normal NEGATIVE [facility] Comment on above: Performed By: #### U AMIC #### [facility] [address] [place] [address] Dr. Marvin Reis LEUKOCYTES TRACE Abnormal NEGATIVE [facility] Comment on above: Performed By: #### U AMIC #### [facility] [address] [address] [address] Marvin Reis MUCOUS NONE SEEN Normal NONE SEEN [facility] Comment on above: Performed By: #### U AMIC #### [facility] [address] [address] [address] Marvin Reis Nitrite Ql (U) Negative Normal NEGATIVE [facility] Comment on above: Performed By: #### U AMIC #### [facility] [address] [place] [address] Dr. Marvin Reis pH (U) 6.0 [pH] Normal 5-[address] [facility] Comment on above: Performed By: #### U AMIC #### [facility] [address] [place] [address] Dr. Marvin Reis RBC NONE SEEN Abnormal 0-[address] [facility] Comment on above: Performed By: #### U AMIC #### [facility] [address] [place] [address] Dr. Marvin Reis SPEC GRAVITY 1.020 Normal 1.005-<=1.025 [facility] Comment on above: Performed By: #### U AMIC #### [facility] [address] [place] [address] Dr. Marvin Reis UA PROTEIN Negative Normal NEGATIVE/ TRACE [facility] Comment on above: Performed By: #### U AMIC #### [facility] [address] [place] [address] Dr. Marvin Reis Urobilinogen Qn (U) 0.2 {Robbie'U}/dL Normal 0.2 - 1. [address] [facility] Comment on above: Performed By: #### U AMIC #### [facility] [address] [place] [address] Dr. Marvin Reis WBC 10-20 Abnormal N[address] SEEN [facility] Comment on above: Performed By: #### U AMIC #### [facility] [address] [place] [place] [address] Dr. Marvin Reis CULTURE URINEon 01-07-2023 CULTURE URINE Isolate 1 Dawna albicans 10,000 cfu/mL of Normal [facility] Comment on above: Performed By: #### U RCX #### [facility] [address] [place] [address] Dr. Marvin Reis UA RANDOM W/MICROSCOPICon BACTERIA TRACE Abnormal NONE SEEN [facility] Comment on above: Performed By: #### U AMIC #### [facility] [address] [place] [address] Dr. Marvin Reis Bilirubin Ql (U) Negative Normal NEGATIVE [facility] Comment on above: Performed By: #### U AMIC #### [facility] [address] [place] [address] Dr. Marvin Reis CA OX CRYSTALS RARE Normal [facility] Comment on above: Performed By: #### U AMIC #### [facility] [address] [place] [address] Dr. Marvin Reis CAST NONE SEEN Normal NONE SEEN [facility] Comment on above: Performed By: #### U AMIC #### [facility] [address] [place] [address] Dr. Marvin Reis Clarity (U) CLEAR Normal CLEAR [facility] Comment on above: Performed By: #### U AMIC #### [facility] [address] [place] [address] Dr. Marvin Reis Color (U) LT. YELLOW Normal YELLOW [facility] Comment on above: Performed By: #### U AMIC #### [facility] [address] [place] [address] Dr. Marvin Reis Crystals LM Nom (Urine sed) SEEN Abnormal NONE SEEN [facility] Comment on above: Performed By: #### U AMIC #### [facility] [address] [place] [address] Dr. Marvin Reis Epithelial cells LM Ql (Urine sed) FEW Abnormal NONE SEEN /RARE [facility] Comment on above: Performed By: #### U AMIC #### [facility] [address] [place] [address] Dr. Marvin Reis Glucose Ql (U) Negative Normal NEGATIVE [facility] Comment on above: Performed By: #### U AMIC #### [facility] [address] [address] [address] Marvin Reis Hemoglobin Ql (U) Negative Normal NEGATIVE [facility] Comment on above: Performed By: #### U AMIC #### [facility] [address] [address] [address] Marivn Reis Ketones Ql (U) Negative Normal NEGATIVE [facility] Comment on above: Performed By: #### U AMIC #### [facility] [address] [address] [address] Marvin Reis LEUKOCYTES SMALL Abnormal NEGATIVE [facility] Comment on above: Performed By: #### U AMIC #### [facility] [address] [address] [address] Marvin Reis MUCOUS NONE SEEN Normal NONE SEEN [facility] Comment on above: Performed By: #### U AMIC #### [facility] [address] [address] [address] Marvin Reis Nitrite Ql (U) Negative Normal NEGATIVE [facility] Comment on above: Performed By: #### U AMIC #### [facility] [address] [address] [address] Marvin Reis pH (U) 5.5 [pH] Normal 5-9 [facility] Comment on above: Performed By: #### U AMIC #### [facility] [address] [address] [address] Marvin Reis RBC 0-2 Normal 0-2 [facility] Comment on above: Performed By: #### U AMIC #### [facility] [address] [address] [address] Marvin Reis SPEC GRAVITY 1.015 Normal 1.005-<=1.025 [facility] Comment on above: Performed By: #### U AMIC #### [facility] [address] [address] [address] Marvin Reis UA PROTEIN Negative Normal NEGATIVE/ TRACE [facility] Comment on above: Performed By: #### U AMIC #### [facility] [address] [address] [address] Marvin Reis Urobilinogen Qn (U) 0.2 {Robbie'U}/dL Normal 0.2 - 1. [address] [facility] Comment on above: Performed By: #### U AMIC #### [facility] [address] [place] [address] Dr. Marvin Reis WBC 50-75 Abnormal NONE SEEN [facility] Comment on above: Performed By: #### U AMIC #### [facility] [address] [place] [address] Dr. Marvin Reis YEAST PRESENT Abnormal NONE SEEN [facility] Comment on above: Performed By: #### U AMIC #### [facility] [address] [place] [address] Dr. Marvin Reis CULTURE URINEon 12-25-2022 CULTURE URINE Culture Observations : METHICILLIN RESISTANT STAPH AUREUS ISOLATED. PLEASE FOLLOW APPROPRIATE ISOLATION PROCEDURES. Isolate 1 Staphylococcus aureus >100,000 cfu/mL of ORGANISM 1 Staphylococcus aureus ANTIBIOTIC M.I.C RX STATUS Beta-Lactamase Pos POS F Cefoxitin Screen Pos POS F Benzylpenicillin >=0.5 R F Oxacillin >=4 R F Ciprofloxacin >=8 R F Levofloxacin >=8 R F Inducible Clindamycin Resistance Neg NEG F Quinupristin/Dalfopri stin <=0.25 S F Linezolid 2 S F Vancomycin <=0.5 S F Tetracycline <=1 S F Nitrofurantoin <=16 S F Rifampicin <=0.5 S F Trimethoprim/Sulfamet hoxazole >=320 R F Normal [facility] Comment on above: Performed By: #### U RCX #### [facility] [address] [place] [address] Dr. Marvin Reis UA RANDOM W/MICROSCOPICon BACTERIA NONE SEEN Normal NONE SEEN [facility] Comment on above: Performed By: #### U AMIC #### [facility] [address] [place] [address] Dr. Marvin Reis Bilirubin Ql (U) Negative Normal NEGATIVE [facility] Comment on above: Performed By: #### U AMIC #### [facility] [address] [address] [address] Marvin Reis CAST NONE SEEN Normal NONE SEEN [facility] Comment on above: Performed By: #### U AMIC #### [facility] [address] [address] [address] Marvin Reis Clarity (U) CLEAR Normal CLEAR [facility] Comment on above: Performed By: #### U AMIC #### [facility] [address] [address] [address] Marvin Reis Color (U) LT. YELLOW Normal YELLOW [facility] Comment on above: Performed By: #### U AMIC #### [facility] [address] [address] [address] Marvin Reis Crystals LM Nom (Urine sed) NONE SEEN Normal NONE SEEN [facility] Comment on above: Performed By: #### U AMIC #### [facility] [address] [place] [address] Dr. Marvin Reis Epithelial cells LM Ql (Urine sed) RARE Normal NONE SEEN /RARE [facility] Comment on above: Performed By: #### U AMIC #### [facility] [address] [address] [address] Marvin Reis Glucose Ql (U) Negative Normal NEGATIVE [facility] Comment on above: Performed By: #### U AMIC #### [facility] [address] [place] [address] Dr. Marvin Reis Hemoglobin Ql (U) Negative Normal NEGATIVE [facility] Comment on above: Performed By: #### U AMIC #### [facility] [address] [address] [address] Marvin Reis Ketones Ql (U) Negative Normal NEGATIVE [facility] Comment on above: Performed By: #### U AMIC #### [facility] [address] [address] [address] Marvin Reis LEUKOCYTES MODERATE Abnormal NEGATIVE [facility] Comment on above: Performed By: #### U AMIC #### [facility] [address] [place] [address] Dr. Marvin Reis MUCOUS NONE SEEN Normal NONE SEEN [facility] Comment on above: Performed By: #### U AMIC #### [facility] [address] [address] [address] Marvin Reis Nitrite Ql (U) Negative Normal NEGATIVE [facility] Comment on above: Performed By: #### U AMIC #### [facility] [address] [place] [address] Dr. Marvin Reis pH (U) 5.5 [pH] Normal 5-[address] [facility] Comment on above: Performed By: #### U AMIC #### [facility] [address] [place] [address] Dr. Marvin Reis RBC NONE SEEN Abnormal 0-[address] [facility] Comment on above: Performed By: #### U AMIC #### [facility] [address] [place] [address] Dr. Marvin Reis SPEC GRAVITY 1.015 Normal 1.005-<=1.025 [facility] Comment on above: Performed By: #### U AMIC #### [facility] [address] [place] [address] Dr. Marvin Reis UA PROTEIN Negative Normal NEGATIVE/ TRACE [facility] Comment on above: Performed By: #### U AMIC #### [facility] [address] [place] [address] Dr. Marvin Reis Urobilinogen Qn (U) 0.2 {Robbie'U}/dL Normal 0.2 - 1. [address] [facility] Comment on above: Performed By: #### U AMIC #### [facility] [address] [place] [address] Dr. Marvin Reis WBC 10-20 Abnormal NONE SEEN [facility] Comment on above: Performed By: #### U AMIC #### [facility] [address] [place] [address] Dr. Marvin Reis CULTURE URINEon 12-05-2022 CULTURE URINE Isolate 1 Enterobacter aerogenes >100,000 cfu/ml of ORGANISM 1 Enterobacter aerogenes ANTIBIOTIC M.I.C RX STATUS Piperacillin/Tazobact am 32 I F Cefazolin >=64 R F Ceftazidime 16 I F Ceftriaxone 16 I F Ertapenem <=0.5 S F Imipenem 0.5 S F Amikacin <=2 S F Gentamicin <=1 S F Tobramycin <=1 S F Ciprofloxacin <=0.25 S F Levofloxacin <=0.12 S F Nitrofurantoin 128 R F Trimethoprim/Sulfamet hoxazole <=[address] F [address] [facility] Comment on above: Performed By: #### U RCX #### [facility] [address] [place] [address] Dr. Marvin Reis CREATININEon 12-03-2022 Creatinine [Mass/Vol] 0.88 mg/dL Normal 0.70-1.30 [facility] Comment on above: Performed By: #### U RCX #### [facility] [address] [place] [address] Dr. Marvin Reis EGFR-AF KOSOVAN >60 Normal >=60 [facility] Comment on above: Performed By: #### U RCX #### [facility] [address] [place] [address] Dr. Marvin Reis EGFR-NON AF KOSOVAN >60 Normal >=60 [facility] Comment on above: Performed By: #### U RCX #### [facility] [address] [place] [address] ABDOMEN WO/W CONon 2022 CT ABDOMEN WO/W CON EXAMINATION: CT ABDOMEN WO/W CON HISTORY: Liver structure ; right hepatic lobe lesion; right renal lesion COMPARISON: CT abdomen pelvis 11/20/2022 TECHNIQUE: Axial, Coronal, and Sagittal images were created without and with non-ionic intravenous contrast material. Dose reduction techniques were achieved by using automated exposure control and/or adjustment of mA and/or kV according to patient size and/or use of iterative reconstruction technique. FINDINGS: LUNG BASES: No visible pulmonary or pleural disease. LIVER: Small cleft within posterior lateral right hepatic lobe likely accounting for slightly decreased vascularity and appearance on prior study. No enlargement, atrophy, abnormal density, or significant focal lesion. BILIARY: A few tiny stones within noninflamed gallbladder. PANCREAS: No lesion, fluid collection, ductal dilatation, or atrophy. SPLEEN: No enlargement or focal lesion. ADRENALS: No mass or enlargement. KIDNEYS: Multiple small nonobstructing stones bilaterally. Multiple benign-appearing cysts bilaterally. 2.0 cm dense cysts within medial inferior pole of right kidney is nonenhancing and most compatible with a hemorrhagic cyst. Moderate-marked cortical thinning bilaterally. BOWEL/MESENTERY: No visible mass, obstruction, or bowel wall thickening. AORTA/VASCULAR: No aneurysm or dissection. Filter within the IVC. RETROPERITONEUM: No mass or adenopathy. ABDOMINAL WALL: No mass or hernia. BONES: No bony lesion or fracture. OTHER: Negative. IMPRESSION: 1. No suspicious liver lesion. 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 2. Multiple renal cysts bilaterally favoring benign etiology. 3. Bilateral nonobstructing nephrolithiasis. Electronically authenticated by: ELENO PARKER Date: 2022-12-03 14:[address] [facility] UA RANDOM W/MICROSCOPICon BACTERIA TRACE Abnormal NONE SEEN [facility] Comment on above: Performed By: #### U RCX #### [facility] [address] [place] [address] Dr. Marvin Reis Bilirubin Ql (U) Negative Normal NEGATIVE [facility] Comment on above: Performed By: #### U RCX #### [facility] [address] [place] [address] Dr. Marvin Reis CAST NONE SEEN Normal NONE SEEN [facility] Comment on above: Performed By: #### U RCX #### [facility] [address] [place] [address] Dr. Marvin Reis Clarity (U) CLEAR Normal CLEAR [facility] Comment on above: Performed By: #### U RCX #### [facility] [address] [place] [address] Dr. Marvin Reis Color (U) LT. YELLOW Normal YELLOW [facility] Comment on above: Performed By: #### U RCX #### [facility] [address] [place] [address] Dr. Marvin Reis Crystals LM Nom (Urine sed) NONE SEEN Normal NONE SEEN [facility] Comment on above: Performed By: #### U RCX #### [facility] [address] [place] [address] Dr. Marvin Reis Epithelial cells LM Ql (Urine sed) RARE Normal NONE SEEN /RARE [facility] Comment on above: Performed By: #### U RCX #### [facility] [address] [place] [address] Dr. Marvin Reis Glucose Ql (U) Negative Normal NEGATIVE [facility] Comment on above: Performed By: #### U RCX #### [facility] [address] [place] [address] Dr. Marvin Reis Hemoglobin Ql (U) TRACE-INTACT Abnormal NEGATIVE [facility] Comment on above: Performed By: #### U RCX #### [facility] [address] [place] [address] Dr. Marvin Reis Ketones Ql (U) Negative Normal NEGATIVE [facility] Comment on above: Performed By: #### U RCX #### [facility] [address] [place] [address] Dr. Marvin Reis LEUKOCYTES TRACE Abnormal NEGATIVE [facility] Comment on above: Performed By: #### U RCX #### [facility] [address] [place] [address] Dr. Marvin Reis MUCOUS TRACE Abnormal NONE SEEN [facility] Comment on above: Performed By: #### U RCX #### [facility] [address] [place] [address] Dr. Marvin Reis Nitrite Ql (U) Negative Normal NEGATIVE [facility] Comment on above: Performed By: #### U RCX #### [facility] [address] [place] [address] Dr. Marvin Reis pH (U) 5.0 [pH] Normal 5-9 [facility] Comment on above: Performed By: #### U RCX #### [facility] [address] [place] [address] Dr. Marvin Reis RBC 0-2 Normal 0-2 [facility] Comment on above: Performed By: #### U RCX #### [facility] [address] [place] [address] Dr. Marvin Reis SPEC GRAVITY 1.010 Normal 1.005-<=1.025 [facility] Comment on above: Performed By: #### U RCX #### [facility] [address] [address] [address] Marvin Reis UA PROTEIN TRACE Normal NEGATIVE/ TRACE [facility] Comment on above: Performed By: #### U RCX #### [facility] [address] [address] [address] Marvin Reis Urobilinogen Qn (U) 0.2 {Robbie'U}/dL Normal 0.2 - 1. [address] [facility] Comment on above: Performed By: #### U RCX #### [facility] [address] [address] [address] Marvin Reis WBC 2-5 Abnormal NONE SEEN [facility] Comment on above: Performed By: #### U RCX #### [facility] [address] [address] ABD/PELVIS WO CONon 11-20 CT ABD/PELVIS WO CON EXAMINATION: CT ABD/PELVIS WO CON, 11/20/2022 12:48 PM EST HISTORY: Neurogenic dysfunction of the urinary bladder , hematuria, urinary tract infection COMPARISON: None. TECHNIQUE: CT scan of the abdomen and pelvis was performed without IV contrast. CT dose reduction technique was used, including Automated Exposure Control. FINDINGS: LUNG BASES: Cardiomegaly. Mild bibasilar atelectasis LIVER: Contour deformity of the inferior right hepatic lobe with a focal area of hypodensity best seen on axial image 45 coronal image 37. Perihepatic loculated fluid collection measuring 11.1 x 2.2 cm in axial image 36 BILIARY: The gallbladder is nonvisualized PANCREAS: Diffuse atrophy SPLEEN: No enlargement or focal lesion. ADRENALS: No mass or enlargement. KIDNEYS: Bilateral renal cortical atrophy. Hyperdense lesion lower pole right cortex measuring 2.2 cm axial image 73. Bilateral cortical hypodensities, cysts are favored. No hydronephrosis or obstructing nephrolithiasis BOWEL/MESENTERY: Right lower quadrant diverting colostomy. Periosteal hernia containing colon and mesenteric fat without strangulation AORTA/VASCULAR: No aortic aneurysm. Moderate atherosclerosis. IVC filter. RETROPERITONEUM: No mass or adenopathy. LYMPH NODES: No adenopathy. URINARY BLADDER: 9 mm layering calcification axial image 132. Wall thickening measuring up to 10 mm on the left axial image 127 PELVIC ORGANS: Ill-defined prostate gland which appears lower in position with calcifications ABDOMINAL WALL: No mass or hernia. BONES: No bony lesion or fracture. OTHER: Bilateral presacral and left buttock skin thickening with left subcutaneous stranding partially visualized axial image 150. The skin measures up to 1.9 cm thick IMPRESSION: Hypodensity in the inferior right hepatic lobe. Consider multiphase CT scanning for further evaluation of enhancement characteristics Perihepatic fluid collection 2.1 cm right renal cortical hyperdense mass, postcontrast CT required for further evaluation Bladder wall thickening suggesting cystitis Ill-defined prostate gland Bilateral presacral and left buttocks skin thickening Electronically authenticated by: MAGY COMER Date: 2022-11-20 14:[address] [facility] CULTURE URINEon 11-11-2022 CULTURE URINE Culture Observations : GUSTABO TO FOLLOW. Isolate 1 Enterobacter aerogenes >100,000 cfu/mL of Normal [facility] Comment on above: Performed By: #### U RCX #### [facility] [address] [place] [address] Dr. Marvin Reis UA RANDOM W/MICROSCOPICon BACTERIA SMALL Abnormal NONE SEEN [facility] Comment on above: Performed By: #### U AMIC #### [facility] [address] [place] [address] Dr. Marvin Reis Bilirubin Ql (U) Negative Normal NEGATIVE [facility] Comment on above: Performed By: #### U AMIC #### [facility] [address] [place] [address] Dr. Marvin Reis CAST NONE SEEN Normal NONE SEEN [facility] Comment on above: Performed By: #### U AMIC #### [facility] [address] [place] [address] Dr. Marvin Reis Clarity (U) CLOUDY Abnormal CLEAR [facility] Comment on above: Performed By: #### U AMIC #### [facility] [address] [place] [address] Dr. Marvin Reis Color (U) LT. YELLOW Normal YELLOW [facility] Comment on above: Performed By: #### U AMIC #### [facility] [address] [address] [address] Marvin Reis Crystals LM Nom (Urine sed) NONE SEEN Normal NONE SEEN [facility] Comment on above: Performed By: #### U AMIC #### [facility] [address] [address] [address] Marvin Reis Epithelial cells LM Ql (Urine sed) NONE SEEN Normal NONE SEEN /RARE [facility] Comment on above: Performed By: #### U AMIC #### [facility] [address] [address] [address] Marvin Reis Glucose Ql (U) Negative Normal NEGATIVE [facility] Comment on above: Performed By: #### U AMIC #### [facility] [address] [address] [address] Marvin Reis Hemoglobin Ql (U) TRACE-INTACT Abnormal NEGATIVE [facility] Comment on above: Performed By: #### U AMIC #### [facility] [address] [address] [address] Marvin Reis Ketones Ql (U) Negative Normal NEGATIVE [facility] Comment on above: Performed By: #### U AMIC #### [facility] [address] [address] [address] Marvin Reis LEUKOCYTES LARGE Abnormal NEGATIVE [facility] Comment on above: Performed By: #### U AMIC #### [facility] [address] [address] [address] Marvin Reis MUCOUS NONE SEEN Normal NONE SEEN [facility] Comment on above: Performed By: #### U AMIC #### [facility] [address] [address] [address] Marvin Reis Nitrite Ql (U) Positive Abnormal NEGATIVE [facility] Comment on above: Performed By: #### U AMIC #### [facility] [address] [address] [address] Marvin Reis pH (U) 5.5 [pH] Normal 5-[address] [facility] Comment on above: Performed By: #### U AMIC #### [facility] [address] [address] [address] Marvin Reis RBC 0-2 Normal 0-2 [facility] Comment on above: Performed By: #### U AMIC #### [facility] [address] [address] [address] Marvin Reis SPEC GRAVITY 1.015 Normal 1.005-<=1.025 [facility] Comment on above: Performed By: #### U AMIC #### [facility] [address] [place] [address] Dr. Marvin Reis UA PROTEIN Negative Normal NEGATIVE/ TRACE [facility] Comment on above: Performed By: #### U AMIC #### [facility] [address] [place] [address] Dr. Marvin Reis Urobilinogen Qn (U) 0.2 {Robbie'U}/dL Normal 0.2 - 1. 0 [facility] Comment on above: Performed By: #### U AMIC #### [facility] [address] [place] [address] Dr. Marvin Reis WBC 10-20 Abnormal NONE SEEN The [facility] Comment on above: Performed By: #### U AMIC #### [facility] [address] [place] [address] Dr. Marvin Reis CULTURE URINEon 10-24-2022 CULTURE URINE Isolate 1 Serratia marcescens >100,000 cfu/mL of ORGANISM 1 Serratia marcescens ANTIBIOTIC M.I.C RX STATUS Cefazolin >=64 R F Ceftazidime <=1 S F Ceftriaxone <=1 S F Ertapenem <=0.5 S F Amikacin <=2 S F Gentamicin <=1 S F Tobramycin <=1 S F Ciprofloxacin <=0.25 S F Levofloxacin <=0.12 S F Nitrofurantoin 128 R F Trimethoprim/Sulfamet hoxazole <=20 S F Normal [address] [facility] Comment on above: Performed By: #### U RCX #### [facility] [address] [place] [address] Dr. Marvin Reis UA RANDOM W/MICROSCOPICon BACTERIA LARGE Abnormal NONE SEEN The [facility] Comment on above: Performed By: #### U AMIC #### [facility] [address] [place] [address] Dr. Marvin Reis Bilirubin Ql (U) Negative Normal NEGATIVE [facility] Comment on above: Performed By: #### U AMIC #### [facility] [address] [address] [address] Marvin Reis CAST NONE SEEN Normal NONE SEEN [facility] Comment on above: Performed By: #### U AMIC #### [facility] [address] [address] [address] Marvin Reis Clarity (U) SL CLOUDY Abnormal CLEAR [facility] Comment on above: Performed By: #### U AMIC #### [facility] [address] [place] [address] Dr. Marvin Reis Color (U) YELLOW Normal YELLOW [facility] Comment on above: Performed By: #### U AMIC #### [facility] [address] [place] [address] Dr. Marvin Reis Crystals LM Nom (Urine sed) NONE SEEN Normal NONE SEEN [facility] Comment on above: Performed By: #### U AMIC #### [facility] [address] [place] [address] Dr. Marvin Reis Epithelial cells LM Ql (Urine sed) FEW Abnormal NONE SEEN /RARE [facility] Comment on above: Performed By: #### U AMIC #### [facility] [address] [address] [address] Marvin Reis Glucose Ql (U) Negative Normal NEGATIVE [facility] Comment on above: Performed By: #### U AMIC #### [facility] [address] [place] [address] Dr. Marvin Reis Hemoglobin Ql (U) TRACE-INTACT Abnormal NEGATIVE [facility] Comment on above: Performed By: #### U AMIC #### [facility] [address] [place] [address] Dr. Marvin Reis Ketones Ql (U) Negative Normal NEGATIVE [facility] Comment on above: Performed By: #### U AMIC #### [facility] [address] [address] [address] Marvin Reis LEUKOCYTES LARGE Abnormal NEGATIVE [facility] Comment on above: Performed By: #### U AMIC #### [facility] [address] [address] [address] Marvin Reis MUCOUS NONE SEEN Normal NONE SEEN [facility] Comment on above: Performed By: #### U AMIC #### [facility] [address] [address] [address] Marvin Reis Nitrite Ql (U) Negative Normal NEGATIVE [facility] Comment on above: Performed By: #### U AMIC #### [facility] [address] [place] [address] Dr. Marvin Reis pH (U) 5.0 [pH] Normal 5-[address] [facility] Comment on above: Performed By: #### U AMIC #### [facility] [address] [address] [address] Marvin Reis RBC 5-10 Abnormal 0-2 [facility] Comment on above: Performed By: #### U AMIC #### [facility] [address] [place] [address] Dr. Marvin Reis SPEC GRAVITY 1.010 Normal 1.005-<=1.025 [facility] Comment on above: Performed By: #### U AMIC #### [facility] [address] [place] [address] Dr. Marvin Reis UA PROTEIN Negative Normal NEGATIVE/ TRACE [facility] Comment on above: Performed By: #### U AMIC #### [facility] [address] [place] [address] Dr. Marvin Reis Urobilinogen Qn (U) 0.2 {Robbie'U}/dL Normal 0.2 - 1. 0 [facility] Comment on above: Performed By: #### U AMIC #### [facility] [address] [place] [address] Dr. Marvin Reis WBC 50-75 Abnormal NONE SEEN [facility] Comment on above: Performed By: #### U AMIC #### [facility] [address] [address] [address] Marvin Reis CULTURE URINEon 10-01-2022 CULTURE URINE Culture Observations : NO GROWTH. Normal [facility] Comment on above: Performed By: #### U AMIC #### [facility] [address] [address] [address] Marvin Reis UA RANDOM W/MICROSCOPICon BACTERIA SMALL Abnormal NONE SEEN [facility] Comment on above: Performed By: #### U AMIC #### [facility] [address] [address] [address] Marvin Reis Bilirubin Ql (U) Negative Normal NEGATIVE [facility] Comment on above: Performed By: #### U AMIC #### [facility] [address] [address] [address] Marvin Reis CAST SEEN Abnormal NONE SEEN [facility] Comment on above: Performed By: #### U AMIC #### [facility] [address] [address] [address] Marvin Reis Clarity (U) CLEAR Normal CLEAR [facility] Comment on above: Performed By: #### U AMIC #### [facility] [address] [address] [address] Marvin Reis Color (U) LT. YELLOW Normal YELLOW [facility] Comment on above: Performed By: #### U AMIC #### [facility] [address] [address] [address] Marvin Reis Crystals LM Nom (Urine sed) NONE SEEN Normal NONE SEEN [facility] Comment on above: Performed By: #### U AMIC #### [facility] [address] [address] [address] Marvin Reis Epithelial cells LM Ql (Urine sed) FEW Abnormal NONE SEEN /RARE [facility] Comment on above: Performed By: #### U AMIC #### [facility] [address] [address] [address] Marvin Reis Glucose Ql (U) Negative Normal NEGATIVE [facility] Comment on above: Performed By: #### U AMIC #### [facility] [address] [address] [address] Marvin Reis Hemoglobin Ql (U) TRACE-INTACT Abnormal NEGATIVE [facility] Comment on above: Performed By: #### U AMIC #### [facility] [address] [address] [address] Marvin Resi HYALINE CAST FEW Normal [facility] Comment on above: Performed By: #### U AMIC #### [facility] [address] [address] [address] Marvin Reis Ketones Ql (U) Negative Normal NEGATIVE [facility] Comment on above: Performed By: #### U AMIC #### [facility] [address] [address] [address] Marvin Reis LEUKOCYTES MODERATE Abnormal NEGATIVE [facility] Comment on above: Performed By: #### U AMIC #### [facility] [address] [address] [address] Marvin Reis MUCOUS SMALL Abnormal NONE SEEN [facility] Comment on above: Performed By: #### U AMIC #### [facility] [address] [address] [address] Marvin Reis Nitrite Ql (U) Negative Normal NEGATIVE [facility] Comment on above: Performed By: #### U AMIC #### [facility] [address] [address] [address] Marvin Reis pH (U) 5.5 [pH] Normal 5-9 [facility] Comment on above: Performed By: #### U AMIC #### [facility] [address] [place] [address] Dr. Marvin Reis RBC 0-2 Normal 0-2 [facility] Comment on above: Performed By: #### U AMIC #### [facility] [address] [place] [address] Dr. Marvin Reis SPEC GRAVITY 1.020 Normal 1.005-<=1.025 [facility] Comment on above: Performed By: #### U AMIC #### [facility] [address] [place] [address] Dr. Marvin Reis UA PROTEIN Negative Normal NEGATIVE/ TRACE [facility] Comment on above: Performed By: #### U AMIC #### [facility] [address] [place] [address] Dr. Marvin Reis Urobilinogen Qn (U) 0.2 {Robbie'U}/dL Normal 0.2 - 1. [address] [facility] Comment on above: Performed By: #### U AMIC #### [facility] [address] [place] [address] Dr. Marvin Reis WBC 10-20 Abnormal NONE SEEN [facility] Comment on above: Performed By: #### U AMIC #### [facility] [address] [place] [address] Dr. Marvin Reis CULTURE URINEon 09-26-2022 CULTURE URINE Isolate 1 Enterobacter aerogenes >100,000 cfu/mL of ORGANISM 1 Enterobacter aerogenes ANTIBIOTIC M.I.C RX STATUS Piperacillin/Tazobact am 16 S F Cefazolin <=4 R F Ceftazidime <=1 S F Ceftriaxone <=1 S F Ertapenem <=0.5 S F Imipenem <=0.25 S F Amikacin <=2 S F Gentamicin <=1 S F Tobramycin <=1 S F Ciprofloxacin <=0.25 S F Levofloxacin 1 S F Nitrofurantoin 64 I F Trimethoprim/Sulfamet hoxazole <=20 S F Normal [address] [facility] Comment on above: Performed By: #### U RCX #### [facility] [address] [place] [address] Dr. Marvin Reis CBC W MANUAL DIFFon 09-25-20 ANISOCYTOSIS SLIGHT Normal [facility] Comment on above: Performed By: #### U RCX #### [facility] [address] [place] [address] Dr. Marvin Reis ATYPICAL LYMPH # Normal [facility] Comment on above: Performed By: #### U RCX #### [facility] [address] [place] [address] Dr. Marvin Reis ATYPICAL LYMPH % Normal [facility] Comment on above: Performed By: #### U RCX #### [facility] [address] [address] [address] Marvin Reis BAND # Normal 0.0-0.[address] [facility] Comment on above: Performed By: #### U RCX #### [facility] [address] [place] [address] Dr. Marvin Reis BAND % Normal 0-[address] [facility] Comment on above: Performed By: #### U RCX #### [facility] [address] [address] [address] Marvin Reis BASOM # 0.00 103/ul Normal 0.00-0.[address] [facility] Comment on above: Performed By: #### U RCX #### [facility] [address] [place] [address] Dr. Marvin Reis BASOM % 0.0 % Critically low 0.2-2.[address] [facility] Comment on above: Performed By: #### U RCX #### [facility] [address] [place] [address] Dr. Marvin Reis BLAST # Normal [facility] Comment on above: Performed By: #### U RCX #### [facility] [address] [place] [address] Dr. Marvin Reis BLAST % Normal [facility] Comment on above: Performed By: #### U RCX #### [facility] [address] [place] [address] Dr. Marvin Reis CORRECTED WBC Normal 4.0-11.0 [facility] Comment on above: Performed By: #### U RCX #### [facility] [address] [place] [address] Dr. Marvin Reis EOS # 0.00 103/ul Normal 0.00-0.[address] [facility] Comment on above: Performed By: #### U RCX #### [facility] [address] [place] [address] Dr. Marvin Reis EOS% 0.0 % Critically low 0.9-7.[address] [facility] Comment on above: Performed By: #### U RCX #### [facility] [address] [address] [address] Marvin Reis HCT 32.1 % Critically low 42.0-54.0 [facility] Comment on above: Performed By: #### U RCX #### [facility] [address] [address] [address] Marvin Reis HGB 10.2 g/dl Critically low 14.0-18.0 [facility] Comment on above: Performed By: #### U RCX #### [facility] [address] [address] [address] Marvin Reis LYMPHM # 0.76 103/ul Critically low 1.20-3.80 [facility] Comment on above: Performed By: #### U RCX #### [facility] [address] [place] [address] Dr. Marvin Reis LYMPHM% 14.0 % Critically low 20.5-60.0 [facility] Comment on above: Performed By: #### U RCX #### [facility] [address] [place] [address] Dr. Marvin Reis MCH 26.5 pg Normal 25.9-34.0 [facility] Comment on above: Performed By: #### U RCX #### [facility] [address] [place] [address] Dr. Marvin Reis MCHC 31.8 g/dl Normal 29.9-35.[address] [facility] Comment on above: Performed By: #### U RCX #### [facility] [address] [address] [address] Marvin Reis MCV 83.4 fL Normal 80.0-94.[address] [facility] Comment on above: Performed By: #### U RCX #### [facility] [address] [place] [address] Dr. Marvin Reis METAMYELOCYTE # Normal [facility] Comment on above: Performed By: #### U RCX #### [facility] [address] [address] [address] Marvin Reis METAMYELOCYTE % Normal [facility] Comment on above: Performed By: #### U RCX #### [facility] [address] [address] [address] Marvin Reis MONOM# 0.27 103/ul Critically low 0.30-0.80 [facility] Comment on above: Performed By: #### U RCX #### [facility] [address] [address] [address] Marvin Reis MONOM% 5.0 % Normal 1.7-12.0 [facility] Comment on above: Performed By: #### U RCX #### [facility] [address] [address] [address] Marvin Reis MPV 9.8 fL Normal 9.5-13.5 [facility] Comment on above: Performed By: #### U RCX #### [facility] [address] [place] [address] Dr. Marvin Reis MYELOCYTE # Normal [facility] Comment on above: Performed By: #### U RCX #### [facility] [address] [address] [address] Marvin Reis MYELOCYTE % Normal [facility] Comment on above: Performed By: #### U RCX #### [facility] [address] [address] [address] Marvin Reis NRBC Normal [facility] Comment on above: Performed By: #### U RCX #### [facility] [address] [address] [address] Marvin Reis PLT 78 103/ul Critically low 150-450 [facility] Comment on above: Performed By: #### U RCX #### [facility] [address] [address] [address] Marvin Reis RBC 3.85 106/ul Critically low 4.70-6.10 [facility] Comment on above: Performed By: #### U RCX #### [facility] [address] [place] [address] Dr. Marvin Reis RDW 15.8 % Critically high 11.0-15.0 [facility] Comment on above: Performed By: #### U RCX #### [facility] [address] [address] [address] Marvin Reis SEG # 4.37 103/ul Normal 1.40-6.50 [facility] Comment on above: Performed By: #### U RCX #### [facility] [address] [address] [address] Marvin Reis SEG % 81.0 % Critically high 43.0-75.0 [facility] Comment on above: Performed By: #### U RCX #### [facility] [address] [address] [address] Marvin Reis WBC 5.4 103/ul Normal 4.0-11.0 [facility] Comment on above: Performed By: #### U RCX #### [facility] [address] [place] [address] Dr. Marvin Reis CRPon 09-25-2022 CRP 8.9 mg/dL Critically high <=1.0 [facility] Comment on above: Performed By: #### U AMIC #### [facility] [address] [place] [address] Dr. Marvin Reis LACTATE/LACTIC ACIDon 2021 Lactate [Moles/Vol] 0.9 mmol/L Normal 0.4-1.9 [facility] Comment on above: Performed By: #### U RCX #### [facility] [address] [address] [address] Marvin Reis PROF 14(COMP METB)on 022 Albumin [Mass/Vol] 2.6 g/dL Critically low 3.4-5.0 [facility] Comment on above: Performed By: #### U AMIC #### [facility] [address] [place] [address] Dr. Marvin Reis Albumin/Globulin [Mass ratio] 0.7 {ratio} Normal [facility] Comment on above: Performed By: #### U AMIC #### [facility] [address] [place] [address] Dr. Marvin Reis ALP [Catalytic activity/Vol] 75 U/L Normal 46-116 [facility] Comment on above: Performed By: #### U AMIC #### [facility] [address] [address] [address] Marvin Reis ALT [Catalytic activity/Vol] 23 U/L Normal 16-63 [facility] Comment on above: Performed By: #### U AMIC #### [facility] [address] [address] [address] Marvin Reis Anion gap [Moles/Vol] 11.8 mmol/L Normal [facility] Comment on above: Performed By: #### U AMIC #### [facility] [address] [address] [address] Marvin Reis AST [Catalytic activity/Vol] 21 U/L Normal 15-37 [facility] Comment on above: Performed By: #### U AMIC #### [facility] [address] [address] [address] Marvin Reis Bilirubin [Mass/Vol] 0.8 mg/dL Normal 0.2-1.0 [facility] Comment on above: Performed By: #### U AMIC #### [facility] [address] [place] [address] Dr. Marvin Reis Calcium [Mass/Vol] 8.7 mg/dL Normal 8.5-10.1 [facility] Comment on above: Performed By: #### U AMIC #### [facility] [address] [address] [address] Marvin Reis Chloride [Moles/Vol] 105 mmol/L Normal 98-107 [facility] Comment on above: Performed By: #### U AMIC #### [facility] [address] [address] [address] Marvin Reis CO2 [Moles/Vol] 26.1 mmol/L Normal 21.0-32.0 [facility] Comment on above: Performed By: #### U AMIC #### [facility] [address] [address] [address] Marvin Reis Creatinine [Mass/Vol] 0.88 mg/dL Normal 0.70-1.30 [facility] Comment on above: Performed By: #### U AMIC #### [facility] [address] [address] [address] Marvin Reis EGFR-AF KOSOVAN >60 Normal >=60 [facility] Comment on above: Performed By: #### U AMIC #### [facility] [address] [address] [address] Marvin Reis EGFR-NON AF KOSOVAN >60 Normal >=60 [facility] Comment on above: Performed By: #### U AMIC #### [facility] [address] [address] [address] Marvin Reis Globulin (S) [Mass/Vol] 3.7 g/dL Normal [facility] Comment on above: Performed By: #### U AMIC #### [facility] [address] [address] [address] Marvin Reis Glucose [Mass/Vol] 93 mg/dL Normal 74-106 [facility] Comment on above: Performed By: #### U AMIC #### [facility] [address] [address] [address] Marvin Reis Potassium [Moles/Vol] 3.9 mmol/L Normal 3.5-5.1 [facility] Comment on above: Performed By: #### U AMIC #### [facility] [address] [address] [address] Marvin Reis Protein [Mass/Vol] 6.3 g/dL Critically low 6.4-8.2 [facility] Comment on above: Performed By: #### U AMIC #### [facility] [address] [address] [address] Marvin Reis Sodium [Moles/Vol] 139 mmol/L Normal 136-145 [facility] Comment on above: Performed By: #### U AMIC #### [facility] [address] [address] [address] Marvin Reis Urea nitrogen [Mass/Vol] 20.0 mg/dL Critically high 7.0-18.0 [facility] Comment on above: Performed By: #### U AMIC #### [facility] [address] [address] [address] Marvin Reis Urea nitrogen/Creatinine [Mass ratio] 22.7 mg/mg Normal [facility] Comment on above: Performed By: #### U AMIC #### [facility] [address] [address] [address] Marvin Reis SED RATE WESTERGREN 2021 SED RATE 49 mm/hr Critically high <=20 [facility] Comment on above: Performed By: #### U AMIC #### [facility] [address] [address] [address] Marvin Reis CBC W MANUAL DIFFon 09-24-20 ATYPICAL LYMPH # Normal [facility] Comment on above: Performed By: #### U RCX #### [facility] [address] [place] [address] Dr. Marvin Reis ATYPICAL LYMPH % Normal [facility] Comment on above: Performed By: #### U RCX #### [facility] [address] [place] [address] Dr. Marvin Reis BAND # Normal 0.0-0.[address] [facility] Comment on above: Performed By: #### U RCX #### [facility] [address] [place] [address] Dr. Marvin Reis BAND % Normal 0-[address] [facility] Comment on above: Performed By: #### U RCX #### [facility] [address] [address] [address] Marvin Reis BASOM # 0.00 103/ul Normal 0.00-0.[address] [facility] Comment on above: Performed By: #### U RCX #### [facility] [address] [place] [address] Dr. Marvin Reis BASOM % 0.0 % Critically low 0.2-2.0 [facility] Comment on above: Performed By: #### U RCX #### [facility] [address] [place] [address] Dr. Marvin Reis BLAST # Normal [facility] Comment on above: Performed By: #### U RCX #### [facility] [address] [address] [address] Marvin Reis BLAST % Normal [facility] Comment on above: Performed By: #### U RCX #### [facility] [address] [address] [address] Marvin Reis CORRECTED WBC Normal 4.0-11.0 [facility] Comment on above: Performed By: #### U RCX #### [facility] [address] [address] [address] Marvin Reis EOS # 0.00 103/ul Normal 0.00-0.70 [facility] Comment on above: Performed By: #### U RCX #### [facility] [address] [address] [address] Marvin Reis EOS% 0.0 % Critically low 0.9-7.0 [facility] Comment on above: Performed By: #### U RCX #### [facility] [address] [address] [address] Marvin Reis HCT 33.5 % Critically low 42.0-54.0 [facility] Comment on above: Performed By: #### U RCX #### [facility] [address] [place] [address] Dr. Marvin Reis HGB 10.9 g/dl Critically low 14.0-18.[address] [facility] Comment on above: Performed By: #### U RCX #### [facility] [address] [address] [address] Marvin Reis LYMPHM # 0.52 103/ul Critically low 1.20-3.80 [facility] Comment on above: Performed By: #### U RCX #### [facility] [address] [address] [address] Marvin Reis LYMPHM% 4.0 % Critically low 20.5-60.0 [facility] Comment on above: Performed By: #### U RCX #### [facility] [address] [address] [address] Marvin Reis MCH 27.2 pg Normal 25.9-34.0 [facility] Comment on above: Performed By: #### U RCX #### [facility] [address] [place] [address] Dr. Marvin Reis MCHC 32.5 g/dl Normal 29.9-35.2 [facility] Comment on above: Performed By: #### U RCX #### [facility] [address] [address] [address] Marvin Reis MCV 83.5 fL Normal 80.0-94.0 [facility] Comment on above: Performed By: #### U RCX #### [facility] [address] [place] [address] Dr. Marvin Reis METAMYELOCYTE # Normal [facility] Comment on above: Performed By: #### U RCX #### [facility] [address] [place] [address] Dr. Marvin Reis METAMYELOCYTE % Normal [facility] Comment on above: Performed By: #### U RCX #### [facility] [address] [place] [address] Dr. Marvin Reis MONOM# 0.39 103/ul Normal 0.30-0.80 [facility] Comment on above: Performed By: #### U RCX #### [facility] [address] [place] [address] Dr. Marvin Reis MONOM% 3.0 % Normal 1.7-12.0 [facility] Comment on above: Performed By: #### U RCX #### [facility] [address] [place] [address] Dr. Marvin Reis MPV 10.5 fL Normal 9.5-13.[address] [facility] Comment on above: Performed By: #### U RCX #### [facility] [address] [place] [address] Dr. Marvin Reis MYELOCYTE # Normal [facility] Comment on above: Performed By: #### U RCX #### [facility] [address] [place], [place] [id number] Dr. Marvin Reis MYELOCYTE % Normal [facility] Comment on above: Performed By: #### U RCX #### [facility] [address] [address] [address] Marvin Reis NRBC Normal [facility] Comment on above: Performed By: #### U RCX #### [facility] [address] [address] [address] Marvin Reis PLT 96 103/ul Critically low 150-450 [facility] Comment on above: Performed By: #### U RCX #### [facility] [address] [address] [address] Marvin Reis RBC 4.01 106/ul Critically low 4.70-6.10 [facility] Comment on above: Performed By: #### U RCX #### [facility] [address] [address] [address] Marvin Reis RDW 15.8 % Critically high 11.0-15.0 [facility] Comment on above: Performed By: #### U RCX #### [facility] [address] [address] [address] Marvin Reis SEG # 12.00 103/ul Critically high 1.40-6.50 [facility] Comment on above: Performed By: #### U RCX #### [facility] [address] [address] [address] Marvin Reis SEG % 93.0 % Critically high 43.0-75.0 [facility] Comment on above: Performed By: #### U RCX #### [facility] [address] [address] [address] Marvni Reis WBC 12.9 103/ul Critically high 4.0-11.0 [facility] Comment on above: Performed By: #### U RCX #### [facility] [address] [address] [address] Marvin Reis CRPon 09-24-2022 CRP 8.4 mg/dL Critically high <=1.0 [facility] Comment on above: Performed By: #### U AMIC #### [facility] [address] [place] [address] Dr. Marvin Reis LACTATE/LACTIC ACIDon 2021 Lactate [Moles/Vol] 2.2 mmol/L Critically high 0.4-1.9 [facility] Comment on above: Performed By: #### L ACT #### [facility] [address] [address] [address] Marvin Reis PROF 14(COMP METB)on 022 Albumin [Mass/Vol] 2.8 g/dL Critically low 3.4-5.0 [facility] Comment on above: Performed By: #### U AMIC #### [facility] [address] [place] [address] Dr. Marvin Reis Albumin/Globulin [Mass ratio] 0.7 {ratio} Normal [facility] Comment on above: Performed By: #### U AMIC #### [facility] [address] [place] [address] Dr. Marvin Reis ALP [Catalytic activity/Vol] 80 U/L Normal 46-116 [facility] Comment on above: Performed By: #### U AMIC #### [facility] [address] [place] [address] Dr. Marvin Reis ALT [Catalytic activity/Vol] 20 U/L Normal 16-63 [facility] Comment on above: Performed By: #### U AMIC #### [facility] [address] [place] [address] Dr. Marvin Reis Anion gap [Moles/Vol] 12.3 mmol/L Normal [facility] Comment on above: Performed By: #### U AMIC #### [facility] [address] [place] [address] Dr. Marvin Reis AST [Catalytic activity/Vol] 17 U/L Normal 15-37 [facility] Comment on above: Performed By: #### U AMIC #### [facility] [address] [place] [address] Dr. Marvin Reis Bilirubin [Mass/Vol] 1.0 mg/dL Normal 0.2-1.0 [facility] Comment on above: Performed By: #### U AMIC #### [facility] [address] [address] [address] Marvin Reis Calcium [Mass/Vol] 9.0 mg/dL Normal 8.5-10.1 [facility] Comment on above: Performed By: #### U AMIC #### [facility] [address] [address] [address] Marvin Reis Chloride [Moles/Vol] 106 mmol/L Normal 98-107 [facility] Comment on above: Performed By: #### U AMIC #### [facility] [address] [address] [address] Marvin Reis CO2 [Moles/Vol] 25.8 mmol/L Normal 21.0-32.0 [facility] Comment on above: Performed By: #### U AMIC #### [facility] [address] [address] [address] Marvin Reis Creatinine [Mass/Vol] 1.08 mg/dL Normal 0.70-1.30 [facility] Comment on above: Performed By: #### U AMIC #### [facility] [address] [address] [address] Marvin Reis EGFR-AF KOSOVAN >60 Normal >=60 [facility] Comment on above: Performed By: #### U AMIC #### [facility] [address] [address] [address] Marvin Reis EGFR-NON AF KOSOVAN >60 Normal >=60 [facility] Comment on above: Performed By: #### U AMIC #### [facility] [address] [address] [address] Marvin Reis Globulin (S) [Mass/Vol] 3.8 g/dL Normal [facility] Comment on above: Performed By: #### U AMIC #### [facility] [address] [address] [address] Marvin Reis Glucose [Mass/Vol] 117 mg/dL Critically high 74-106 [facility] Comment on above: Performed By: #### U AMIC #### [facility] [address] [address] [address] Marvin Reis Potassium [Moles/Vol] 4.1 mmol/L Normal 3.5-5.1 [facility] Comment on above: Performed By: #### U AMIC #### [facility] [address] [address] [address] Marvin Reis Protein [Mass/Vol] 6.6 g/dL Normal 6.4-8.2 [facility] Comment on above: Performed By: #### U AMIC #### [facility] [address] [address] [address] Marvin Reis Sodium [Moles/Vol] 140 mmol/L Normal 136-145 [facility] Comment on above: Performed By: #### U AMIC #### [facility] [address] [address] [address] Marvin Reis Urea nitrogen [Mass/Vol] 23.0 mg/dL Critically high 7.0-18.0 [facility] Comment on above: Performed By: #### U AMIC #### [facility] [address] [address] [address] Marvin Reis Urea nitrogen/Creatinine [Mass ratio] 21.3 mg/mg Normal [facility] Comment on above: Performed By: #### U AMIC #### [facility] [address] [address] [address] Marvin Reis SED RATE [facility] 2021 SED RATE 51 mm/hr Critically high <=20 [facility] Comment on above: Performed By: #### U RCX #### [facility] [address] [address] [address] Marvin Reis UA RANDOMon 09-24-2022 Bilirubin Ql (U) Negative Normal NEGATIVE [facility] Comment on above: Performed By: #### U AMIC #### [facility] [address] [address] [address] Marvin Reis Clarity (U) CLEAR Normal CLEAR [facility] Comment on above: Performed By: #### U AMIC #### [facility] [address] [address] [address] Marvin Reis Color (U) LT. YELLOW Normal YELLOW [facility] Comment on above: Performed By: #### U AMIC #### [facility] [address] [address] [address] Marvin Reis Glucose Ql (U) Negative Normal NEGATIVE [facility] Comment on above: Performed By: #### U AMIC #### [facility] [address] [address] [address] Marvin Reis Hemoglobin Ql (U) LARGE Abnormal NEGATIVE [facility] Comment on above: Performed By: #### U AMIC #### [facility] [address] [address] [address] Marvin Reis Ketones Ql (U) Negative Normal NEGATIVE [facility] Comment on above: Performed By: #### U AMIC #### [facility] [address] [place] [address] Dr. Marvin Reis LEUKOCYTES MODERATE Abnormal NEGATIVE [facility] Comment on above: Performed By: #### U AMIC #### [facility] [address] [address] [address] Marvin Reis Nitrite Ql (U) Negative Normal NEGATIVE [facility] Comment on above: Performed By: #### U AMIC #### [facility] [address] [place] [address] Dr. Marvin Reis pH (U) 5.5 [pH] Normal 5-[address] [facility] Comment on above: Performed By: #### U AMIC #### [facility] [address] [place] [address] Dr. Marvin Reis SPEC GRAVITY 1.020 Normal 1.005-<=1.025 [facility] Comment on above: Performed By: #### U AMIC #### [facility] [address] [place] [address] Dr. Marvin Reis UA PROTEIN Negative Normal NEGATIVE/ TRACE [facility] Comment on above: Performed By: #### U AMIC #### [facility] [address] [place] [address] Dr. Marvin Reis Urobilinogen Qn (U) 0.2 {Robbie'U}/dL Normal 0.2 - 1. [address] [facility] Comment on above: Performed By: #### U AMIC #### [facility] [address] [place] [address] Dr. Marvin Reis CULTURE URINEon 09-13-2022 CULTURE URINE Culture Observations : METHICILLIN RESISTANT STAPH AUREUS ISOLATED. PLEASE FOLLOW APPROPRIATE ISOLATION PROCEDURES. Isolate 1 Staphylococcus aureus <10,000 cfu/mL of ORGANISM 1 Staphylococcus aureus ANTIBIOTIC M.I.C RX STATUS Beta-Lactamase Pos POS F Cefoxitin Screen Pos POS F Benzylpenicillin >=0.5 R F Ciprofloxacin >=8 R F Levofloxacin >=8 R F Inducible Clindamycin Resistance Neg NEG F Quinupristin/Dalfopri stin <=0.25 S F Linezolid 1 S F Vancomycin <=0.5 S F Tetracycline <=1 S F Nitrofurantoin <=16 S F Rifampicin <=0.5 S F Trimethoprim/Sulfamet hoxazole >=320 R F Oxacillin >=4 R F Normal [address] [facility] Comment on above: Performed By: #### U RCX #### [facility] [address] [place] [address] Dr. Marvin Reis UA RANDOM W/MICROSCOPICon BACTERIA TRACE Abnormal NONE SEEN [facility] Comment on above: Performed By: #### U AMIC #### [facility] [address] [place] [address] Dr. Marvin Reis Bilirubin Ql (U) Negative Normal NEGATIVE [facility] Comment on above: Performed By: #### U AMIC #### [facility] [address] [place] [address] Dr. Marvin Reis CAST NONE SEEN Normal NONE SEEN [facility] Comment on above: Performed By: #### U AMIC #### [facility] [address] [place] [address] Dr. Marvin Reis Clarity (U) CLEAR Normal CLEAR [facility] Comment on above: Performed By: #### U AMIC #### [facility] [address] [place] [address] Dr. Marvin Reis Color (U) LT. YELLOW Normal YELLOW [facility] Comment on above: Performed By: #### U AMIC #### [facility] [address] [address] [address] Marvin Reis Crystals LM Nom (Urine sed) NONE SEEN Normal NONE SEEN [facility] Comment on above: Performed By: #### U AMIC #### [facility] [address] [address] [address] Marvin Reis Epithelial cells LM Ql (Urine sed) FEW Abnormal NONE SEEN /RARE [facility] Comment on above: Performed By: #### U AMIC #### [facility] [address] [address] [address] Marvin Reis Glucose Ql (U) Negative Normal NEGATIVE [facility] Comment on above: Performed By: #### U AMIC #### [facility] [address] [address] [address] Marvin Reis Hemoglobin Ql (U) Negative Normal NEGATIVE [facility] Comment on above: Performed By: #### U AMIC #### [facility] [address] [address] [address] Marvin Reis Ketones Ql (U) Negative Normal NEGATIVE [facility] Comment on above: Performed By: #### U AMIC #### [facility] [address] [address] [address] Marvin Reis LEUKOCYTES LARGE Abnormal NEGATIVE [facility] Comment on above: Performed By: #### U AMIC #### [facility] [address] [address] [address] Marvin Reis MUCOUS NONE SEEN Normal NONE SEEN [facility] Comment on above: Performed By: #### U AMIC #### [facility] [address] [address] [address] Marvin Reis Nitrite Ql (U) Negative Normal NEGATIVE [facility] Comment on above: Performed By: #### U AMIC #### [facility] [address] [address] [address] Marvin Reis pH (U) 5.5 [pH] Normal 5-[address] [facility] Comment on above: Performed By: #### U AMIC #### [facility] [address] [address] [address] Marvin Reis RBC 0-2 Normal 0-[address] [facility] Comment on above: Performed By: #### U AMIC #### [facility] [address] [address] [address] Marvin Reis SPEC GRAVITY 1.025 Normal 1.005-<=1.025 [facility] Comment on above: Performed By: #### U AMIC #### [facility] [address] [place] [address] Dr. Marvin COOLEY PROTEIN Negative Normal NEGATIVE/ TRACE [facility] Comment on above: Performed By: #### U AMIC #### [facility] [address] [place] [address] Dr. Marvin Reis Urobilinogen Qn (U) 0.2 {Robbie'U}/dL Normal 0.2 - 1. 0 [facility] Comment on above: Performed By: #### U AMIC #### [facility] [address] [place] [address] Dr. Marvin Reis WBC 10-20 Abnormal NONE SEEN [facility] Comment on above: Performed By: #### U AMIC #### [facility] [address] [place] [address] Dr. Marvin Reis CULTURE URINEon 08-17-2022 CULTURE URINE Isolate 1 Enterobacter aerogenes >100,000 cfu/ml of ORGANISM 1 Enterobacter aerogenes ANTIBIOTIC M.I.C RX STATUS Piperacillin/Tazobact am 32 I F Cefazolin >=64 R F Ceftazidime 16 I F Ceftriaxone 8 S F Imipenem 0.5 S F Amikacin <=2 S F Gentamicin <=1 S F Tobramycin <=1 S F Ciprofloxacin <=0.25 S F Levofloxacin 1 S F Nitrofurantoin 64 I F Trimethoprim/Sulfamet hoxazole <=20 S F Normal [address] [facility] Comment on above: Performed By: #### U RCX #### [facility] [address] [place] [address] Dr. Marvin Reis UA RANDOM W/MICROSCOPICon BACTERIA MODERATE Abnormal NONE SEEN [facility] Comment on above: Performed By: #### U RCX #### [facility] [address] [place] [address] Dr. Marvin Reis Bilirubin Ql (U) Negative Normal NEGATIVE [facility] Comment on above: Performed By: #### U RCX #### [facility] [address] [place] [address] Dr. Marvin Reis CAST NONE SEEN Normal NONE SEEN [facility] Comment on above: Performed By: #### U RCX #### [facility] [address] [address] [address] Marvin Reis Clarity (U) SL CLOUDY Abnormal CLEAR [facility] Comment on above: Performed By: #### U RCX #### [facility] [address] [place] [address] Dr. Marvin Reis Color (U) LT. YELLOW Normal YELLOW [facility] Comment on above: Performed By: #### U RCX #### [facility] [address] [place] [address] Dr. Marvin Reis Crystals LM Nom (Urine sed) NONE SEEN Normal NONE SEEN [facility] Comment on above: Performed By: #### U RCX #### [facility] [address] [place] [address] Dr. Marvin Reis Epithelial cells LM Ql (Urine sed) RARE Normal NONE SEEN /RARE [facility] Comment on above: Performed By: #### U RCX #### [facility] [address] [place] [address] Dr. Marvin Reis Glucose Ql (U) Negative Normal NEGATIVE [facility] Comment on above: Performed By: #### U RCX #### [facility] [address] [place] [address] Dr. Marvin Reis Hemoglobin Ql (U) SMALL Abnormal NEGATIVE [facility] Comment on above: Performed By: #### U RCX #### [facility] [address] [place] [address] Dr. Marvin Reis Ketones Ql (U) Negative Normal NEGATIVE [facility] Comment on above: Performed By: #### U RCX #### [facility] [address] [address] [address] Marvin Reis LEUKOCYTES MODERATE Abnormal NEGATIVE [facility] Comment on above: Performed By: #### U RCX #### [facility] [address] [address] [address] Marvin Reis MUCOUS NONE SEEN Normal NONE SEEN [facility] Comment on above: Performed By: #### U RCX #### [facility] [address] [place] [address] Dr. Marvin Reis Nitrite Ql (U) Positive Abnormal NEGATIVE [facility] Comment on above: Performed By: #### U RCX #### [facility] [address] [place] [address] Dr. Marvin Reis pH (U) 6.0 [pH] Normal 5-[address] [facility] Comment on above: Performed By: #### U RCX #### [facility] [address] [place] [address] Dr. Marvin Reis RBC 0-2 Normal 0-2 [facility] Comment on above: Performed By: #### U RCX #### [facility] [address] [place] [address] Dr. Marvin Reis SPEC GRAVITY 1.015 Normal 1.005-<=1.025 [facility] Comment on above: Performed By: #### U RCX #### [facility] [address] [place] [address] Dr. Marvin Reis UA PROTEIN Negative Normal NEGATIVE/ TRACE [facility] Comment on above: Performed By: #### U RCX #### [facility] [address] [place] [address] Dr. Marvin Reis Urobilinogen Qn (U) 0.2 {Robbie'U}/dL Normal 0.2 - 1. 0 [facility] Comment on above: Performed By: #### U RCX #### [facility] [address] [place] [address] Dr. Marvin Reis WBC 10-20 Abnormal NONE SEEN [facility] Comment on above: Performed By: #### U RCX #### [facility] [address] [place] [address] Dr. Marvin Reis CULTURE URINEon 08-02-2022 CULTURE URINE Isolate 1 Enterobacter aerogenes >100,000 cfu/mL of ORGANISM 1 Enterobacter aerogenes ANTIBIOTIC M.I.C RX STATUS Piperacillin/Tazobact am 16 S F Cefazolin <=4 R F Ceftazidime <=1 S F Ceftriaxone <=1 S F Ertapenem <=0.5 S F Imipenem <=0.25 S F Amikacin <=2 S F Gentamicin <=1 S F Tobramycin <=1 S F Ciprofloxacin <=0.25 S F Levofloxacin 1 S F Nitrofurantoin 64 I F Trimethoprim/Sulfamet hoxazole <=20 S F Normal [address] [facility] Comment on above: Performed By: #### U RCX #### [facility] [address] [place] [address] Dr. Marvin Reis UA RANDOM W/MICROSCOPICon BACTERIA MODERATE Abnormal NONE SEEN [facility] Comment on above: Performed By: #### U AMIC #### [facility] [address] [place] [address] Dr. Marvin Reis Bilirubin Ql (U) Negative Normal NEGATIVE [facility] Comment on above: Performed By: #### U AMIC #### [facility] [address] [place] [address] Dr. Marvin Reis CAST NONE SEEN Normal NONE SEEN [facility] Comment on above: Performed By: #### U AMIC #### [facility] [address] [place] [address] Dr. Marvin Reis Clarity (U) SL CLOUDY Abnormal CLEAR [facility] Comment on above: Performed By: #### U AMIC #### [facility] [address] [place] [address] Dr. Marvin Reis Color (U) LT. YELLOW Normal YELLOW [facility] Comment on above: Performed By: #### U AMIC #### [facility] [address] [place] [address] Dr. Marvin Reis Crystals LM Nom (Urine sed) NONE SEEN Normal NONE SEEN [facility] Comment on above: Performed By: #### U AMIC #### [facility] [address] [address] [address] Marvin Reis Epithelial cells LM Ql (Urine sed) NONE SEEN Normal NONE SEEN /RARE [facility] Comment on above: Performed By: #### U AMIC #### [facility] [address] [address] [address] Marvin Reis Glucose Ql (U) Negative Normal NEGATIVE [facility] Comment on above: Performed By: #### U AMIC #### [facility] [address] [address] [address] Marvin Reis Hemoglobin Ql (U) TRACE-INTACT Abnormal NEGATIVE [facility] Comment on above: Performed By: #### U AMIC #### [facility] [address] [place] [address] Dr. Marvin Reis Ketones Ql (U) Negative Normal NEGATIVE [facility] Comment on above: Performed By: #### U AMIC #### [facility] [address] [address] [address] Marvin Reis LEUKOCYTES MODERATE Abnormal NEGATIVE [facility] Comment on above: Performed By: #### U AMIC #### [facility] [address] [address] [address] Marvin Reis MUCOUS NONE SEEN Normal NONE SEEN [facility] Comment on above: Performed By: #### U AMIC #### [facility] [address] [address] [address] Marvin Reis Nitrite Ql (U) Positive Abnormal NEGATIVE [facility] Comment on above: Performed By: #### U AMIC #### [facility] [address] [address] [address] Marvin Reis pH (U) 6.0 [pH] Normal 5-9 [facility] Comment on above: Performed By: #### U AMIC #### [facility] [address] [place] [address] Dr. Marvin Reis RBC 0-2 Normal 0-2 [facility] Comment on above: Performed By: #### U AMIC #### [facility] [address] [address] [address] Marvin Reis SPEC GRAVITY 1.015 Normal 1.005-<=1.025 [facility] Comment on above: Performed By: #### U AMIC #### [facility] [address] [address] [address] Marvin Reis UA PROTEIN Negative Normal NEGATIVE/ TRACE [facility] Comment on above: Performed By: #### U AMIC #### [facility] [address] [address] [address] Mavrin Reis Urobilinogen Qn (U) 0.2 {Robbie'U}/dL Normal 0.2 - 1. 0 [facility] Comment on above: Performed By: #### U AMIC #### [facility] [address] [place] [address] Dr. Marvin Reis WBC 20-50 Abnormal NONE SEEN [facility] Comment on above: Performed By: #### U AMIC #### [facility] [address] [place] [address] Dr. Marvin Reis CULTURE URINEon 06-27-2022 CULTURE URINE Culture Observations : METHICILLIN RESISTANT STAPH AUREUS ISOLATED. PLEASE FOLLOW APPROPRIATE ISOLATION PROCEDURES. Isolate 1 Staphylococcus aureus 100,000 cfu/mL of ORGANISM 1 Staphylococcus aureus ANTIBIOTIC M.I.C RX STATUS Beta-Lactamase Pos POS F Cefoxitin Screen Pos POS F Benzylpenicillin >=0.5 R F Ciprofloxacin >=8 R F Levofloxacin >=8 R F Inducible Clindamycin Resistance Neg NEG F Quinupristin/Dalfopri stin <=0.25 S F Linezolid 2 S F Vancomycin <=0.5 S F Tetracycline <=1 S F Nitrofurantoin <=16 S F Rifampicin <=0.5 S F Trimethoprim/Sulfamet hoxazole >=320 R F Oxacillin >=4 R F Normal [address] [facility] Comment on above: Performed By: #### U AMIC #### [facility] [address] [place] [address] Dr. Marvin Reis UA RANDOM W/MICROSCOPICon BACTERIA LARGE Abnormal NONE SEEN [facility] Comment on above: Performed By: #### U RCX #### [facility] [address] [place] [address] Dr. Marvin Reis Bilirubin Ql (U) Negative Normal NEGATIVE [facility] Comment on above: Performed By: #### U RCX #### [facility] [address] [place] [address] Dr. Marvin Reis CAST NONE SEEN Normal NONE SEEN [facility] Comment on above: Performed By: #### U RCX #### [facility] [address] [place] [address] Dr. Marvin Reis Clarity (U) CLEAR Normal CLEAR [facility] Comment on above: Performed By: #### U RCX #### [facility] [address] [place] [address] Dr. Marvin Reis Color (U) LT. YELLOW Normal YELLOW [facility] Comment on above: Performed By: #### U RCX #### [facility] [address] [place] [address] Dr. Marvin Reis Crystals LM Nom (Urine sed) NONE SEEN Normal NONE SEEN [facility] Comment on above: Performed By: #### U RCX #### [facility] [address] [place] [address] Dr. Marvin Reis Epithelial cells LM Ql (Urine sed) FEW Abnormal NONE SEEN /RARE [facility] Comment on above: Performed By: #### U RCX #### [facility] [address] [place] [address] Dr. Marvin Reis Glucose Ql (U) Negative Normal NEGATIVE [facility] Comment on above: Performed By: #### U RCX #### [facility] [address] [place] [address] Dr. Marvin Reis Hemoglobin Ql (U) TRACE-INTACT Abnormal NEGATIVE [facility] Comment on above: Performed By: #### U RCX #### [facility] [address] [place] [address] Dr. Marvin Reis Ketones Ql (U) Negative Normal NEGATIVE [facility] Comment on above: Performed By: #### U RCX #### [facility] [address] [place] [address] Dr. Marvin Reis LEUKOCYTES LARGE Abnormal NEGATIVE [facility] Comment on above: Performed By: #### U RCX #### [facility] [address] [place] [address] Dr. Marvin Reis MUCOUS NONE SEEN Normal NONE SEEN [facility] Comment on above: Performed By: #### U RCX #### [facility] [address] [place] [address] Dr. Marvin Reis Nitrite Ql (U) Positive Abnormal NEGATIVE [facility] Comment on above: Performed By: #### U RCX #### [facility] [address] [place] [address] Dr. Marvin Reis pH (U) 5.5 [pH] Normal 5-9 [facility] Comment on above: Performed By: #### U RCX #### [facility] [address] [place] [address] Dr. Marvin Reis RBC 2-5 Abnormal 0-[address] [facility] Comment on above: Performed By: #### U RCX #### [facility] [address] [place] [address] Dr. Marvin Reis SPEC GRAVITY 1.015 Normal 1.005-<=1.025 [facility] Comment on above: Performed By: #### U RCX #### [facility] [address] [place] [address] Dr. Marvin Reis UA PROTEIN Negative Normal NEGATIVE/ TRACE [facility] Comment on above: Performed By: #### U RCX #### [facility] [address] [place] [address] Dr. Marvin Reis Urobilinogen Qn (U) 0.2 {Robbie'U}/dL Normal 0.2 - 1. 0 [facility] Comment on above: Performed By: #### U RCX #### [facility] [address] [place] [address] Dr. Marvin Reis WBC (U) [#/Vol] /uL Abnormal NONE SEEN [facility] Comment on above: Performed By: #### U RCX #### [facility] [address] [place] [address] Dr. Marvin Reis CULTURE URINEon 05-27-2022 CULTURE URINE Culture Observations : METHICILLIN RESISTANT STAPH AUREUS ISOLATED. PLEASE FOLLOW APPROPRIATE ISOLATION PROCEDURES. Isolate 1 Staphylococcus aureus >100,000 cfu/mL of ORGANISM 1 Staphylococcus aureus ANTIBIOTIC M.I.C RX STATUS Beta-Lactamase Pos POS F Cefoxitin Screen Pos POS F Benzylpenicillin >=0.5 R F Ciprofloxacin >=8 R F Levofloxacin >=8 R F Moxifloxacin 4 I F Inducible Clindamycin Resistance Neg NEG F Quinupristin/Dalfopri stin <=0.25 S F Linezolid 2 S F Vancomycin <=0.5 S F Tetracycline <=1 S F Nitrofurantoin <=16 S F Rifampicin <=0.5 S F Trimethoprim/Sulfamet hoxazole >=320 R F Oxacillin >=4 R F Normal [address] [facility] Comment on above: Performed By: #### U RCX #### [facility] [address] [place] [address] Dr. Marvin Reis UA RANDOM W/MICROSCOPICon BACTERIA MODERATE Abnormal NONE SEEN [facility] Comment on above: Performed By: #### U RCX #### [facility] [address] [place] [address] Dr. Marvin Reis Bilirubin Ql (U) Negative Normal NEGATIVE [facility] Comment on above: Performed By: #### U RCX #### [facility] [address] [place] [address] Dr. Marvin Reis CAST NONE SEEN Normal NONE SEEN [facility] Comment on above: Performed By: #### U RCX #### [facility] [address] [place] [address] Dr. Marvin Reis Clarity (U) SL CLOUDY Abnormal CLEAR [facility] Comment on above: Performed By: #### U RCX #### [facility] [address] [place] [address] Dr. Marvin Reis Color (U) LT. YELLOW Normal YELLOW [facility] Comment on above: Performed By: #### U RCX #### [facility] [address] [address] [address] Marvin Reis Crystals LM Nom (Urine sed) NONE SEEN Normal NONE SEEN [facility] Comment on above: Performed By: #### U RCX #### [facility] [address] [place] [address] Dr. Marvin Reis Epithelial cells LM Ql (Urine sed) FEW Abnormal NONE SEEN /RARE [facility] Comment on above: Performed By: #### U RCX #### [facility] [address] [place] [address] Dr. Marvin Reis Glucose Ql (U) Negative Normal NEGATIVE [facility] Comment on above: Performed By: #### U RCX #### [facility] [address] [place] [address] Dr. Marvin Reis Hemoglobin Ql (U) SMALL Abnormal NEGATIVE [facility] Comment on above: Performed By: #### U RCX #### [facility] [address] [place] [address] Dr. Marvin Reis Ketones Ql (U) Negative Normal NEGATIVE [facility] Comment on above: Performed By: #### U RCX #### [facility] [address] [address] [address] Marvin Reis LEUKOCYTES LARGE Abnormal NEGATIVE [facility] Comment on above: Performed By: #### U RCX #### [facility] [address] [address] [address] Marvin Reis MUCOUS TRACE Abnormal NONE SEEN [facility] Comment on above: Performed By: #### U RCX #### [facility] [address] [place] [address] Dr. Marvin Reis Nitrite Ql (U) Negative Normal NEGATIVE [facility] Comment on above: Performed By: #### U RCX #### [facility] [address] [place] [address] Dr. Marvin Reis pH (U) 6.0 [pH] Normal 5-[address] [facility] Comment on above: Performed By: #### U RCX #### [facility] [address] [place] [address] Dr. Marvin Reis RBC 2-5 Abnormal 0-[address] [facility] Comment on above: Performed By: #### U RCX #### [facility] [address] [place] [address] Dr. Marvin Reis SPEC GRAVITY 1.010 Normal 1.005-<=1.025 [facility] Comment on above: Performed By: #### U RCX #### [facility] [address] [place] [address] Dr. Marvin Reis UA PROTEIN Negative Normal NEGATIVE/ TRACE [facility] Comment on above: Performed By: #### U RCX #### [facility] [address] [place] [address] Dr. Marvin Reis Urobilinogen Qn (U) 0.2 {Robbie'U}/dL Normal 0.2 - 1. 0 [facility] Comment on above: Performed By: #### U RCX #### [facility] [address] [place] [address] Dr. Marvin Reis WBC 50-75 Abnormal NONE SEEN [facility] Comment on above: Performed By: #### U RCX #### [facility] [address] [place] [address] Dr. Marvin Reis CULTURE URINEon 04-18-2022 CULTURE URINE Culture Observations : METHICILLIN RESISTANT STAPH AUREUS ISOLATED. PLEASE FOLLOW APPROPRIATE ISOLATION PROCEDURES. Culture Observations: MRSA called to Sonal Tidwell LPN at office 04/18/22 @1112 Isolate 1 Staphylococcus aureus >100,000 cfu/mL of ORGANISM 1 Staphylococcus aureus ANTIBIOTIC M.I.C RX STATUS Beta-Lactamase Pos POS F Cefoxitin Screen Pos POS F Benzylpenicillin >=0.5 R F Gentamicin <=0.5 S F Ciprofloxacin >=8 R F Levofloxacin >=8 R F Moxifloxacin 4 I F Inducible Clindamycin Resistance Neg NEG F Quinupristin/Dalfopri stin <=0.25 S F Linezolid 2 S F Vancomycin 1 S F Tetracycline <=1 S F Nitrofurantoin <=16 S F Rifampicin <=0.5 S F Trimethoprim/Sulfamet hoxazole >=320 R F Oxacillin >=4 R F Normal [address] [facility] Comment on above: Performed By: #### U RCX #### [facility] [address] [address] [address] Marvin Reis UA RANDOM W/MICROSCOPICon BACTERIA TRACE Abnormal NONE SEEN [facility] Comment on above: Performed By: #### U AMIC #### [facility] [address] [place] [address] Dr. Marvin Reis Bilirubin Ql (U) Negative Normal NEGATIVE [facility] Comment on above: Performed By: #### U AMIC #### [facility] [address] [address] [address] Marvin Reis CAST NONE SEEN Normal NONE SEEN [facility] Comment on above: Performed By: #### U AMIC #### [facility] [address] [place] [address] Dr. Marvin Reis Clarity (U) CLEAR Normal CLEAR [facility] Comment on above: Performed By: #### U AMIC #### [facility] [address] [address] [address] Marvin Reis Color (U) LT. YELLOW Normal YELLOW [facility] Comment on above: Performed By: #### U AMIC #### [facility] [address] [address] [address] Marvin Reis Crystals LM Nom (Urine sed) NONE SEEN Normal NONE SEEN [facility] Comment on above: Performed By: #### U AMIC #### [facility] [address] [address] [address] Marvin Reis Epithelial cells LM Ql (Urine sed) FEW Abnormal NONE SEEN /RARE [facility] Comment on above: Performed By: #### U AMIC #### [facility] [address] [address] [address] Marivn Reis Glucose Ql (U) Negative Normal NEGATIVE [facility] Comment on above: Performed By: #### U AMIC #### [facility] [address] [place] [address] Dr. Marvin Reis Hemoglobin Ql (U) TRACE-INTACT Abnormal NEGATIVE [facility] Comment on above: Performed By: #### U AMIC #### [facility] [address] [address] [address] Marvin Reis Ketones Ql (U) Negative Normal NEGATIVE [facility] Comment on above: Performed By: #### U AMIC #### [facility] [address] [address] [address] Marvin Reis LEUKOCYTES SMALL Abnormal NEGATIVE [facility] Comment on above: Performed By: #### U AMIC #### [facility] [address] [address] [address] Marvin Reis MUCOUS NONE SEEN Normal NONE SEEN [facility] Comment on above: Performed By: #### U AMIC #### [facility] [address] [place] [address] Dr. Marvin Reis Nitrite Ql (U) Negative Normal NEGATIVE [facility] Comment on above: Performed By: #### U AMIC #### [facility] [address] [place] [address] Dr. Marvin Reis pH (U) 6.0 [pH] Normal 5-[address] [facility] Comment on above: Performed By: #### U AMIC #### [facility] [address] [address] [address] Marvin Reis RBC 0-2 Normal 0-2 [facility] Comment on above: Performed By: #### U AMIC #### [facility] [address] [place] [address] Dr. Marvin Reis SPEC GRAVITY 1.010 Normal 1.005-<=1.025 [facility] Comment on above: Performed By: #### U AMIC #### [facility] [address] [place] [address] Dr. Marvin Reis UA PROTEIN Negative Normal NEGATIVE/ TRACE [facility] Comment on above: Performed By: #### U AMIC #### [facility] [address] [place] [address] Dr. Marvin Reis Urobilinogen Qn (U) 0.2 {Robbie'U}/dL Normal 0.2 - 1. 0 [facility] Comment on above: Performed By: #### U AMIC #### [facility] [address] [address] [address] Marvin Reis WBC 2-5 Abnormal NONE SEEN [facility] Comment on above: Performed By: #### U AMIC #### [facility] [address] [address] [address] Marvin Reis CULTURE URINEon 03-27-2022 CULTURE URINE Culture Observations : METHICILLIN RESISTANT STAPH AUREUS ISOLATED. PLEASE FOLLOW APPROPRIATE ISOLATION PROCEDURES. Culture Observations: MRSA called to Sophy You LPN at office 03/27/22 @0820 Isolate 1 Staphylococcus aureus >100,000 cfu/ml of ORGANISM 1 Staphylococcus aureus ANTIBIOTIC M.I.C RX STATUS Beta-Lactamase Pos POS F Cefoxitin Screen Pos POS F Benzylpenicillin >=0.5 R F Gentamicin <=0.5 S F Ciprofloxacin >=8 R F Levofloxacin >=8 R F Moxifloxacin 4 I F Inducible Clindamycin Resistance Neg NEG F Quinupristin/Dalfopri stin <=0.25 S F Linezolid 2 S F Vancomycin 1 S F Tetracycline <=1 S F Nitrofurantoin <=16 S F Rifampicin <=0.5 S F Trimethoprim/Sulfamet hoxazole >=320 R F Normal [address] [facility] Comment on above: Performed By: #### U RCX #### [facility] [address] [place] [address] Dr. Marvin Reis UA RANDOM W/MICROSCOPICon BACTERIA TRACE Abnormal NONE SEEN [facility] Comment on above: Performed By: #### U RCX #### [facility] [address] [place] [address] Dr. Marvin Reis Bilirubin Ql (U) Negative Normal NEGATIVE [facility] Comment on above: Performed By: #### U RCX #### [facility] [address] [place] [address] Dr. Marvin Reis CAST NONE SEEN Normal NONE SEEN [facility] Comment on above: Performed By: #### U RCX #### [facility] [address] [place] [address] Dr. Marvin Reis Clarity (U) CLEAR Normal CLEAR [facility] Comment on above: Performed By: #### U RCX #### [facility] [facility] [address] [address] [address] Marvin Reis Color (U) LT. YELLOW Normal YELLOW [facility] Comment on above: Performed By: #### U RCX #### [facility] [address] [address] [address] Marvin Reis Crystals LM Nom (Urine sed) NONE SEEN Normal NONE SEEN [facility] Comment on above: Performed By: #### U RCX #### [facility] [address] [address] [address] Marvin Reis Epithelial cells LM Ql (Urine sed) FEW Abnormal NONE SEEN /RARE [facility] Comment on above: Performed By: #### U RCX #### [facility] [address] [place] [address] Dr. Marvin Reis Glucose Ql (U) Negative Normal NEGATIVE [facility] Comment on above: Performed By: #### U RCX #### [facility] [address] [place] [address] Dr. Marvin Reis Hemoglobin Ql (U) SMALL Abnormal NEGATIVE [facility] Comment on above: Performed By: #### U RCX #### [facility] [address] [address] [address] Marvin Reis Ketones Ql (U) Negative Normal NEGATIVE [facility] Comment on above: Performed By: #### U RCX #### [facility] [address] [address] [address] Marvin Reis LEUKOCYTES MODERATE Abnormal NEGATIVE [facility] Comment on above: Performed By: #### U RCX #### [facility] [address] [address] [address] Marvin Reis MUCOUS NONE SEEN Normal NONE SEEN [facility] Comment on above: Performed By: #### U RCX #### [facility] [address] [place] [address] Dr. Marvin Reis Nitrite Ql (U) Negative Normal NEGATIVE [facility] Comment on above: Performed By: #### U RCX #### [facility] [address] [place] [address] Dr. Marvin Reis pH (U) 5.5 [pH] Normal 5-[address] [facility] Comment on above: Performed By: #### U RCX #### [facility] [address] [place] [address] Dr. Marvin Reis RBC NONE SEEN Abnormal 0-[address] [facility] Comment on above: Performed By: #### U RCX #### [facility] [address] [place] [address] Dr. Marvin Reis SPEC GRAVITY 1.015 Normal 1.005-<=1.025 The [facility] Comment on above: Performed By: #### U RCX #### [facility] [address] [place] [address] Dr. Marvin Reis UA PROTEIN Negative Normal NEGATIVE/ TRACE [facility] Comment on above: Performed By: #### U RCX #### [facility] [address] [place] [address] Dr. Marvin Reis Urobilinogen Qn (U) 0.2 {Robbie'U}/dL Normal 0.2 - 1. 0 [facility] Comment on above: Performed By: #### U RCX #### [facility] [address] [place] [address] Dr. Marvin Reis WBC 20-50 Abnormal NONE SEEN [facility] Comment on above: Performed By: #### U RCX #### [facility] [address] [place] [address] Dr. Marvin Reis YEAST PRESENT Abnormal NONE SEEN [facility] Comment on above: Performed By: #### U RCX #### [facility] [address] [place] [address] Dr. Marvin Reis CULTURE URINEon 03-18-2022 CULTURE URINE Culture Observations : No growth Normal [facility] Comment on above: Performed By: #### U RCX #### [facility] [address] [place] [address] Dr. Marvin Reis UA RANDOM W/MICROSCOPICon BACTERIA NONE SEEN Normal NONE SEEN [facility] Comment on above: Performed By: #### U AMIC #### [facility] [address] [address] [address] Marvin Reis Bilirubin Ql (U) Negative Normal NEGATIVE [facility] Comment on above: Performed By: #### U AMIC #### [facility] [address] [address] [address] Marvin Reis CAST NONE SEEN Normal NONE SEEN [facility] Comment on above: Performed By: #### U AMIC #### [facility] [address] [address] [address] Marvin Reis Clarity (U) CLOUDY Abnormal CLEAR [facility] Comment on above: Performed By: #### U AMIC #### [facility] [address] [address] [address] Marvin Reis Color (U) LT. YELLOW Normal YELLOW [facility] Comment on above: Performed By: #### U AMIC #### [facility] [address] [address] [address] Marvin Reis Crystals LM Nom (Urine sed) NONE SEEN Normal NONE SEEN [facility] Comment on above: Performed By: #### U AMIC #### [facility] [address] [address] [address] Marvin Reis Epithelial cells LM Ql (Urine sed) RARE Normal NONE SEEN /RARE [facility] Comment on above: Performed By: #### U AMIC #### [facility] [address] [address] [address] Marvin Reis Glucose Ql (U) Negative Normal NEGATIVE [facility] Comment on above: Performed By: #### U AMIC #### [facility] [address] [address] [address] Marvin Reis Hemoglobin Ql (U) TRACE-INTACT Abnormal NEGATIVE [facility] Comment on above: Performed By: #### U AMIC #### [facility] [address] [address] [address] Marvin Reis Ketones Ql (U) Negative Normal NEGATIVE [facility] Comment on above: Performed By: #### U AMIC #### [facility] [address] [address] [address] Marvin Reis LEUKOCYTES MODERATE Abnormal NEGATIVE [facility] Comment on above: Performed By: #### U AMIC #### [facility] [address] [address] [address] Marvin Reis MUCOUS NONE SEEN Normal NONE SEEN [facility] Comment on above: Performed By: #### U AMIC #### [facility] [address] [address] [address] Marvin Reis Nitrite Ql (U) Negative Normal NEGATIVE [facility] Comment on above: Performed By: #### U AMIC #### [facility] [address] [place] [address] Dr. Marvin Reis pH (U) 6.0 [pH] Normal 5-[address] [facility] Comment on above: Performed By: #### U AMIC #### [facility] [address] [place] [address] Dr. Marvin Reis RBC NONE SEEN Abnormal 0-[address] [facility] Comment on above: Performed By: #### U AMIC #### [facility] [address] [place] [address] Dr. Marvin Reis SPEC GRAVITY 1.015 Normal 1.005-<=1.025 [facility] Comment on above: Performed By: #### U AMIC #### [facility] [address] [place] [address] Dr. Marvin Reis UA PROTEIN Negative Normal NEGATIVE/ TRACE [facility] Comment on above: Performed By: #### U AMIC #### [facility] [address] [place] [address] Dr. Marvin Reis Urobilinogen Qn (U) 0.2 {Robbie'U}/dL Normal 0.2 - 1. [address] [facility] Comment on above: Performed By: #### U AMIC #### [facility] [address] [place] [address] Dr. Marvin Reis WBC 10-20 Abnormal NONE SEEN [facility] Comment on above: Performed By: #### U AMIC #### [facility] [address] [place] [address] Dr. Marvin Reis Coding Summary.on 06-21-2020 Coding Summary. CODING DATE: 06/21/2020 FINAL [facility] STATUS: PAYOR: Worker's Compensation ADMIT DX: REASON FOR VISIT DX: G82.51 Quadriplegia, C1-C4 complete FINAL DX: PRINCIPAL: G82.51 Quadriplegia, C1-C4 complete SECONDARY: Z46.89 Encounter for fitting and adjustment of other specified devices PYMT PROC APC STAT DESCRIPTION DOCTOR NAME DATE NOTE: The code number assigned matches the documented diagnosis and / or procedure in the patient's chart. However, the narrative phrase printed from the coding software may appear abbreviated, or result in slightly different terminology. Coded By: Erika Hopper CphT Date Saved: 06/21/2020 12:01 pm [facility] PT - Assessmentson 0 PT - Assessments [id number]# 1.00CD:127 [facility] PT - Orderson 06-20-2020 PT - Orders [id number] 1.00CD:127 [facility] PT - Workers Compon 06-20-20 20 PT - Workers Comp [id number] 1.00CD:127 [facility] Encounters Encounter Date Encounter Type Care Provider Facility Start: 03-10-2023 End: 03-11-2023 ambulatory [facility] Start: 03-03-2023 End: 03-03-[address] LAWANDA GROVE . Facility[facility] Start: 02-10-2023 End: 02-10-[address] LAWANDA GROVE . Facility[facility] Start: 01-21-2023 End: 01-21-[address] LAWANDA GROVE . Facility[facility] Start: 01-07-2023 End: 01-07-[address] LAWANDA GROVE . Facility[facility] Start: 12-23-2022 End: 12-23-[address] LAWANDA GROVE . Facility:[facility] Start: 12-03-2022 End: 12-04-[address] LAWANDA GROVE . Facility:[facility] Start: 11-20-2022 End: 11-21-[address] LAWANDA GROVE . Facility:[facility] Start: 11-11-2022 End: 11-11-[address] LAWANDA GROVE . Facility:[facility] Start: 10-21-2022 End: 10-21-[address] LAWANDA GROVE . Facility:[facility] Start: 10-01-2022 End: 10-02-[address] LAWANDA GROVE . Facility:[facility] Start: 09-24-2022 End: 09-25-[address] LAWANDA GROVE . Facility:[facility] Start: 09-11-2022 End: 09-11-[address] LAWANDA GROVE . Facility:[facility] Start: 08-15-2022 End: 08-16-[address] LAWANDA GROVE . Facility:[facility] Start: 07-31-2022 End: 07-31-[address] LAWANDA GROVE . Facility:[facility] Start: 06-25-2022 End: 06-26-[address] LAWANDA GROVE . Facility:[facility] Start: 05-23-2022 End: 05-23-[address] LAWANDA GROVE . Facility:[facility] Start: 04-16-2022 End: 04-16-[address] LAWANDA GROVE . Facility:[facility] Start: 03-25-2022 End: 03-25-[address] LAWANDA GROVE . Facility:[facility] Start: 03-18-2022 End: 03-18-[address] LAWANDA GROVE . Facility[facility] Payers Date Payer Category Payer Medicare [id number] 1961 Unknown [id number] 1960 Unknown [id number] 2.16.84 0.1.912118.3.579.2.593 1960 Unknown [id number] 2.16.84 0.1.256648.3.579.2.593 1958 Unknown [id number] 2.16.84 0.1.671634.3.579.2.593 1958 Unknown [id number] 2.16.84 0.1.520040.3.579.2.593 1958 Unknown [id number] 2.16.84 0.1.182254.3.579.2.593 1958 Unknown [id number] 2.16.84 0.1.212297.3.579.2.593 1958 Unknown [id number] 2.16.84 0.1.590081.3.579.2.593 1958 Unknown [id number] 2.16.84 0.1.399811.3.579.2.593 1958 Unknown [id number] 2.16.84 0.1.195112.3.579.2.593 1958 Unknown [id number] 2.16.84 0.1.395099.3.579.2.593 1958 Unknown [id number] 2.16.84 0.1.461722.3.579.2.593 1958 Unknown [id number] 2.16.84 0.1.351029.3.579.2.593 1958 Unknown [id number] 2.16.84 0.1.866837.3.579.2.593 1958 Unknown [id number] 2.16.84 0.1.559489.3.579.2.593 1958 Unknown [id number] 2.16.84 0.1.560646.3.579.2.593 1958 Unknown [id number] 2.16.84 0.1.688182.3.579.2.593 1958 Unknown [id number] 2.16.84 0.1.020744.3.579.2.593 1958 Unknown [id number] 2.16.84 0.1.062090.3.579.2.593 1958 Unknown [id number] 2.16.84 0.1.007001.3.579.2.593 Summary Purpose Family History No Family History Records FoundNo Family History Records FoundNo Family History Records FoundNo Family History Records Found Advance Directives No Advanced Directives Records FoundNo Advanced Directives Records FoundNo Advanced Directives Records FoundNo Advanced Directives Records Found Additional Source Comments (unrecognized sect ion and content) No Status Records FoundNo Status Records FoundNo Status Records FoundNo Status Records Found INFORMATION SOURCE (unrecogn ized section and content) DATE CREATED AUTHOR 09/19/2020 [facility] DATE CREATED AUTHOR AUTHOR'S ORGANIZ ATION 03/06/2023 [facility] DATE CREATED AUTHOR AUTHOR'S ORGANIZ ATION 03/11/2023 [facility] DATE CREATED AUTHOR AUTHOR'S ORGANIZ ATION 06/07/2023 [facility] FOR RECORDS PERTAINING TO PATIENTS WHO ARE OR HAVE BEEN ENROLLED IN A CHEMICAL DEPENDENCY/SUBSTANCEABUSE PROGRAM, SOME INFORMATION MAY BE OMITTED. This clinical summary was aggregated from multiple sources. Caution should be exercised in using it in the provision of clinical care. This summary normalizes information from multiple sources, and as a consequence, information in this document may materially change the coding, format and clinical context of patient data. In addition, data may be omitted in some cases. CLINICAL DECISIONS SHOULD BE BASED ON THE PRIMARY CLINICAL RECORDS. [employer] provides no warranty or guarantee of the accuracy or completeness of information in this document.
[2023-11-10 14:40] LABS: Bilirubin Urine NEGATIVE (NEGATIVE); Blood Urine TRACE-I (NEGATIVE); Clarity Urine CLEAR (CLEAR); Color Urine LT. YELLOW (YELLOW); Glucose Urine UA NEGATIVE (NEGATIVE); Ketones Urine NEGATIVE (NEGATIVE); Leukocyte Esterase Urine MODERATE (NEGATIVE); Nitrite Urine NEGATIVE (NEGATIVE); Protein Urine TRACE mg/dL (NEG/TRACE); Urobilinogen Urine 0.2 EU/dL (0.2-1.0)
[2023-11-10 14:48] LABS: WBC Urine 20-50 #/HPF (NONE SEEN)
[2023-11-10 14:49] LABS: Bacteria Urine SMALL #/HPF (NONE SEEN); Cast Seen? NONE SEEN #/LPF (NONE SEEN); Crystals Seen? None Seen #/HPF (None Seen); Mucus Urine NONE SEEN (NONE SEEN); Squamous Epithelial Cell Urine FEW #/LPF (NONE/RARE)
== END 2023-11-10 14:35 | disposition home or self-care (01) ==
LOC: LAB 14:34
PROVIDERS: PCP Family Medicine; Visit Provider Family Medicine
DX: N31.2 Flaccid neuropathic bladder, not elsewhere classified (principal)
CPT/HCPCS: 81001; 87086; 87150; 87186

== ENCOUNTER 2023-11-25 14:53 | Outpatient (OUT) | payer OTHER, SELFPAY ==
--- OUTSIDE RECORDS SUMMARY | 2023-11-25 14:56 | XMS_ITS | CCD ---
Author Name Unknown Address [address] [place] [address] Organization [facility] Care Team Providers Care Tile Classifier Name Role Phone HOY ., DR WEBBER [...] source) ceFAZolin Drug Allergy 04-21-20 13 [facility] Repository (1 source) Cilastatin / Imipenem Drug Allergy 04-21-20 13 [facility] Rep[facility] (1 source) Readi-Cat Drug allergy (disorder) 04-21-20 13 [facility] Rep[facility] (1 source) ceFAZolin; Translations: [CEFAZOLIN] Drug Allergy 12-01-19 13 [facility] Repository (1 source) Cephalexin; Translations: [CEPHALEXIN MONOHYDRATE] Drug Allergy 08-03-20 09 [facility] Repository (1 source) Promazine; Translations: [PROMAZINE] Drug Allergy 12-01-19 13 [facility] Repository (1 source) Sulfamethoxazole / Trimethoprim; Translations: [SULFAMETHOXAZOLE-TR IMETHOPRIM] Drug Allergy 03-10-20 23 [facility] Repository (1 source) IODINATED CONTRAST MEDIA; Translations: [IODINATED CONTRAST MEDIA] Propensity to adverse reactions to drug (disorder) 12-01-19 13 [facility] Repository Problems Active Problems Problem Classification Problem [...] RESISTANT TO ALL B-LACTAM DRUGS. PERFORMED BY: [place] [address] PATHOLOGIST SENIOR MARKETING MANAGER MARLA VEGA M.D. [facility] Comment on above: Performed By: #### A MAI LAYNE #### [address] Gram Stainon 06-03-2023 Microscopic observation Gram stain Nom (Unsp spec) Gram Stain Result No Bacteria Seen PERFORMED BY: [place] [address] PATHOLOGIST SENIOR MARKETING MANAGER MARLA VEGA M.D. [facility] Comment on above: Performed By: #### A MAI LAYNE #### [address] [place] [address] [facility] CULTURE URINEon 03-06-2023 CULTURE URINE Isolate [...] F Levofloxacin 2 S F Normal [facility] Comment on above: Performed By: #### U RCX #### [facility] [address] [place] [address] Dr. Marvin Ries UA RANDOM W/MICROSCOPICon BACTERIA SMALL Abnormal NONE SEEN [facility] Comment on above: Performed By: #### U AMIC #### [facility] [address] [place] [address] Dr. Marvin Reis Bilirubin Ql (U) Negative Normal NEGATIVE [facility] Comment on above: Performed By: #### U AMIC #### [facility] [address] [place] [address] Dr. Marvin Reis CAST NONE SEEN Normal NONE SEEN [facility] Comment on above: Performed By: #### U AMIC #### [facility] [address] [place] [address] Dr. Marvin Reis Clarity (U) CLEAR Normal CLEAR [facility] Comment on above: Performed By: #### U AMIC #### [facility] [address] [place] [address] Dr. Marvin Reis Color (U) LT. YELLOW Normal YELLOW [facility] Comment on above: Performed By: #### U AMIC #### [facility] [address] [address] [address] Marvin Reis Crystals LM Nom (Urine sed) NONE SEEN Normal NONE SEEN [facility] Comment on above: Performed By: #### U AMIC #### [facility] [address] [address] [address] Marvin Reis Epithelial cells LM Ql (Urine sed) RARE Normal NONE SEEN /RARE [facility] Comment on above: Performed By: #### U AMIC #### [facility] [address] [address] [address] Marvin Reis Glucose Ql (U) Negative Normal NEGATIVE [facility] Comment on above: Performed By: #### U AMIC #### [facility] [address] [address] [address] Marvin Reis Hemoglobin Ql (U) Negative Normal NEGATIVE [facility] Comment on above: Performed By: #### U AMIC #### [facility] [address] [address] [address] Marvin Reis Ketones Ql (U) Negative Normal NEGATIVE [facility] Comment on above: Performed By: #### U AMIC #### [facility] [address] [address] [address] Marvin Reis LEUKOCYTES SMALL Abnormal NEGATIVE [facility] Comment on above: Performed By: #### U AMIC #### [facility] [address] [address] [address] Marvin Reis MUCOUS NONE SEEN Normal NONE SEEN [facility] Comment on above: Performed By: #### U AMIC #### [facility] [address] [address] [address] Marvin Reis Nitrite Ql (U) Negative Normal NEGATIVE [facility] Comment on above: Performed By: #### U AMIC #### [facility] [address] [address] [address] Marvin Reis pH (U) 6.0 [pH] Normal 5-9 [facility] Comment on above: Performed By: #### U AMIC #### [facility] [address] [place] [address] Dr. Marvin Reis RBC 0-2 Normal 0-2 [facility] Comment on above: Performed By: #### U AMIC #### [facility] [address] [place] [address] Dr. Marvin Reis SPEC GRAVITY 1.010 Normal 1.005-<=1.025 [facility] Comment on above: Performed By: #### U AMIC #### [facility] [address] [place] [address] Dr. Marvin Reis UA PROTEIN Negative Normal NEGATIVE/ TRACE [facility] Comment on above: Performed By: #### U AMIC #### [facility] [address] [place] [address] Dr. Marvin Reis Urobilinogen Qn (U) 0.2 {Robbie'U}/dL Normal 0.2 - 1. 0 [facility] Comment on above: Performed By: #### U AMIC #### [facility] [address] [place] [address] Dr. Marvin Reis WBC 5-10 Abnormal NONE SEEN [facility] Comment on above: Performed By: #### U AMIC #### [facility] [address] [place] [address] Dr. Marvin Reis CULTURE URINEon 02-13-2023 CULTURE [...] F Levofloxacin 2 S F Normal [facility] Comment on above: Performed By: #### U RCX #### [facility] [address] [place] [address] Dr. Marvin Reis UA RANDOM W/MICROSCOPICon BACTERIA MODERATE Abnormal NONE SEEN [facility] Comment on above: Performed By: #### U AMIC #### [facility] [address] [place] [address] Dr. Marvin Reis Bilirubin Ql (U) Negative Normal NEGATIVE [facility] Comment on above: Performed By: #### U AMIC #### [facility] [address] [place] [address] Dr. Marvin Reis CAST NONE SEEN Normal NONE SEEN [facility] Comment on above: Performed By: #### U AMIC #### [facility] [address] [place] [address] Dr. Marvin Reis Clarity (U) CLEAR Normal CLEAR [facility] Comment on above: Performed By: #### U AMIC #### [facility] [address] [place] [address] Dr. Marvin Reis Color (U) LT. YELLOW Normal YELLOW [facility] Comment on above: Performed By: #### U AMIC #### [facility] [address] [place] [address] Dr. Marvin Reis Crystals LM Nom (Urine sed) NONE SEEN Normal NONE SEEN [facility] Comment on above: Performed By: #### U AMIC #### [facility] [address] [place] [address] Dr. Marvin Resi Epithelial cells LM Ql (Urine sed) MODERATE Abnormal NONE SEEN /RARE [facility] Comment on above: Performed By: #### U AMIC #### [facility] [address] [place] [address] Dr. Marvin Reis Glucose Ql (U) Negative Normal NEGATIVE [facility] Comment on above: Performed By: #### U AMIC #### [facility] [address] [address] [address] Marvin Reis Hemoglobin Ql (U) SMALL Abnormal NEGATIVE [facility] Comment on above: Performed By: #### U AMIC #### [facility] [address] [address] [address] Marvin Reis Ketones Ql (U) Negative Normal NEGATIVE [facility] Comment on above: Performed By: #### U AMIC #### [facility] [address] [place] [address] Dr. Marvin Reis LEUKOCYTES LARGE Abnormal NEGATIVE [facility] Comment on above: Performed By: #### U AMIC #### [facility] [address] [place] [address] Dr. Marvin Reis MUCOUS NONE SEEN Normal NONE SEEN [facility] Comment on above: Performed By: #### U AMIC #### [facility] [address] [place] [address] Dr. Marvin Reis Nitrite Ql (U) Positive Abnormal NEGATIVE [facility] Comment on above: Performed By: #### U AMIC #### [facility] [address] [place] [address] Dr. Marvin Reis pH (U) 5.5 [pH] Normal 5-9 [facility] Comment on above: Performed By: #### U AMIC #### [facility] [address] [place] [address] Dr. Marvin Reis RBC 5-10 Abnormal 0-2 [facility] Comment on above: Performed By: #### U AMIC #### [facility] [address] [place] [address] Dr. Marvin Reis SPEC GRAVITY 1.015 Normal 1.005-<=1.025 [facility] Comment on above: Performed By: #### U AMIC #### [facility] [address] [place] [address] Dr. Marvin Reis UA PROTEIN Negative Normal NEGATIVE/ TRACE [facility] Comment on above: Performed By: #### U AMIC #### [facility] [address] [place] [address] Dr. Marvin Reis Urobilinogen Qn (U) 0.2 {Robbie'U}/dL Normal 0.2 - 1. 0 [facility] Comment on above: Performed By: #### U AMIC #### [facility] [address] [place] [address] Dr. Marvin Reis WBC 50-75 Abnormal NONE SEEN [facility] Comment on above: Performed By: #### U AMIC #### [facility] [address] [place] [address] Dr. Marvin Reis CULTURE URINEon 01-23-2023 CULTURE [...] Trimethoprim/Sulfamet hoxazole <=10 S F Normal [facility] Comment on above: Performed By: #### U AMIC #### [facility] [address] [place] [address] Dr. Marvin Reis UA RANDOM W/MICROSCOPICon BACTERIA TRACE Abnormal NONE SEEN [facility] Comment on above: Performed By: #### U AMIC #### [facility] [address] [address] [address] Marvin Reis Bilirubin Ql (U) Negative Normal NEGATIVE [facility] Comment on above: Performed By: #### U AMIC #### [facility] [address] [address] [address] Marvni Reis CAST NONE SEEN Normal NONE SEEN [facility] Comment on above: Performed By: #### U AMIC #### [facility] [address] [address] [address] Marvin Reis Clarity (U) SL CLOUDY Abnormal CLEAR [facility] Comment on above: Performed By: #### U AMIC #### [facility] [address] [address] [address] Marvin Reis Color (U) LT. YELLOW Normal YELLOW [facility] Comment on above: Performed By: #### U AMIC #### [facility] [address] [place] [address] Dr. Marvin Reis Crystals LM Nom (Urine sed) NONE SEEN Normal NONE SEEN [facility] Comment on above: Performed By: #### U AMIC #### [facility] [address] [place] [address] Dr. Marvin Reis Epithelial cells LM Ql (Urine sed) NONE SEEN Normal NONE SEEN /RARE [facility] Comment on above: Performed By: #### U AMIC #### [facility] [address] [place] [address] Dr. Marvin Reis Glucose Ql (U) Negative Normal NEGATIVE [facility] Comment on above: Performed By: #### U AMIC #### [facility] [address] [place] [address] Dr. Marvin Reis Hemoglobin Ql (U) Negative Normal NEGATIVE [facility] Comment on above: Performed By: #### U AMIC #### [facility] [address] [place] [address] Dr. Marvin Reis Ketones Ql (U) Negative Normal NEGATIVE [facility] Comment on above: Performed By: #### U AMIC #### [facility] [address] [place] [address] Dr. Marvin Reis LEUKOCYTES TRACE Abnormal NEGATIVE [facility] Comment on above: Performed By: #### U AMIC #### [facility] [address] [address] [address] Marvin Reis MUCOUS NONE SEEN Normal NONE SEEN [facility] Comment on above: Performed By: #### U AMIC #### [facility] [address] [address] [address] Marvin Reis Nitrite Ql (U) Negative Normal NEGATIVE [facility] Comment on above: Performed By: #### U AMIC #### [facility] [address] [place] [address] Dr. Marvin Reis pH (U) 6.0 [pH] Normal 5-9 [facility] Comment on above: Performed By: #### U AMIC #### [facility] [address] [place] [address] Dr. Marvin Reis RBC NONE SEEN Abnormal 0-2 [facility] Comment on above: Performed By: #### U AMIC #### [facility] [address] [place] [address] Dr. Marvin Reis SPEC GRAVITY 1.020 Normal 1.005-<=1.025 [facility] Comment on above: Performed By: #### U AMIC #### [facility] [address] [place] [address] Dr. Marvin Reis UA PROTEIN Negative Normal NEGATIVE/ TRACE [facility] Comment on above: Performed By: #### U AMIC #### [facility] [address] [place] [address] Dr. Marvin Reis Urobilinogen Qn (U) 0.2 {Robbie'U}/dL Normal 0.2 - 1. 0 [facility] Comment on above: Performed By: #### U AMIC #### [facility] [address] [place] [address] Dr. Marvin Reis WBC 10-20 Abnormal NONE SEEN [facility] Comment on above: Performed By: #### U AMIC #### [facility] [address] [place] [address] Dr. Marvin Reis CULTURE URINEon 01-07-2023 CULTURE URINE Isolate 1 Dawna albicans 10,000 cfu/mL of Normal [facility] Comment on above: Performed By: #### U RCX #### [facility] [address] [place] [address] Dr. Marvin Reis UA RANDOM W/MICROSCOPICon BACTERIA TRACE Abnormal NONE SEEN [facility] Comment on above: Performed By: #### U AMIC #### [facility] [address] [place] [address] Dr. Marvin Reis Bilirubin Ql (U) Negative Normal NEGATIVE [facility] Comment on above: Performed By: #### U AMIC #### [facility] [address] [place] [address] Dr. Marvin Reis CA OX CRYSTALS RARE Normal [facility] Comment on above: Performed By: #### U AMIC #### [facility] [address] [place] [address] Dr. Marvin Reis CAST NONE SEEN Normal NONE SEEN [facility] Comment on above: Performed By: #### U AMIC #### [facility] [address] [place] [address] Dr. Marvin Reis Clarity (U) CLEAR Normal CLEAR [facility] Comment on above: Performed By: #### U AMIC #### [facility] [address] [place] [address] Dr. Marvin Reis Color (U) LT. YELLOW Normal YELLOW [facility] Comment on above: Performed By: #### U AMIC #### [facility] [address] [place] [address] Dr. Marvin Reis Crystals LM Nom (Urine sed) SEEN Abnormal NONE SEEN [facility] Comment on above: Performed By: #### U AMIC #### [facility] [address] [place] [address] Dr. Marvin Reis Epithelial cells LM Ql (Urine sed) FEW Abnormal NONE SEEN /RARE [facility] Comment on above: Performed By: #### U AMIC #### [facility] [address] [place] [address] Dr. Marvin Reis Glucose Ql (U) Negative Normal NEGATIVE [facility] Comment on above: Performed By: #### U AMIC #### [facility] [address] [address] [address] Marvin Reis Hemoglobin Ql (U) Negative Normal NEGATIVE [facility] Comment on above: Performed By: #### U AMIC #### [facility] [address] [address] [address] Marvin eRis Ketones Ql (U) Negative Normal NEGATIVE [facility] Comment on above: Performed By: #### U AMIC #### [facility] [address] [address] [address] Marvin Reis LEUKOCYTES SMALL Abnormal NEGATIVE [facility] Comment on above: Performed By: #### U AMIC #### [facility] [address] [address] [address] Marvin Reis MUCOUS NONE SEEN Normal NONE SEEN [facility] Comment on above: Performed By: #### U AMIC #### [facility] [address] [address] [address] Marvin Reis Nitrite Ql (U) Negative Normal NEGATIVE [facility] Comment on above: Performed By: #### U AMIC #### [facility] [address] [address] [address] Marvin Reis pH (U) 5.5 [pH] Normal 5-9 [facility] Comment on above: Performed By: #### U AMIC #### [facility] [address] [address] [address] Marvin Reis RBC 0-2 Normal 0-2 [facility] Comment on above: Performed By: #### U AMIC #### [facility] [address] [address] [address] Marvin Reis SPEC GRAVITY 1.015 Normal 1.005-<=1.025 [facility] Comment on above: Performed By: #### U AMIC #### [facility] [address] [address] [address] Marvin Reis UA PROTEIN Negative Normal NEGATIVE/ TRACE [facility] Comment on above: Performed By: #### U AMIC #### [facility] [address] [address] [address] Marvin Reis Urobilinogen Qn (U) 0.2 {Robbie'U}/dL Normal 0.2 - 1. 0 [facility] Comment on above: Performed By: #### U AMIC #### [facility] [address] [place] [address] Dr. Marvin Reis WBC 50-75 Abnormal NONE SEEN [facility] Comment on above: Performed By: #### U AMIC #### [facility] [address] [place] [address] Dr. Marvin Reis YEAST PRESENT Abnormal NONE SEEN [facility] Comment on above: Performed By: #### U AMIC #### [facility] [address] [place] [address] Dr. Marvin Reis CULTURE URINEon 12-25-2022 CULTURE [...] Trimethoprim/Sulfamet hoxazole >=320 R F Normal [facility] Comment on above: Performed By: #### U RCX #### [facility] [address] [place] [address] Dr. Marvin Reis UA RANDOM W/MICROSCOPICon BACTERIA NONE SEEN Normal NONE SEEN [facility] Comment on above: Performed By: #### U AMIC #### [facility] [address] [place] [address] Dr. Marvin Reis Bilirubin Ql (U) Negative Normal NEGATIVE [facility] Comment on above: Performed By: #### U AMIC #### [facility] [address] [address] [address] Marvin Reis CAST NONE SEEN Normal NONE SEEN [facility] Comment on above: Performed By: #### U AMIC #### [facility] [address] [address] [address] Marvin Reis Clarity (U) CLEAR Normal CLEAR [facility] Comment on above: Performed By: #### U AMIC #### [facility] [address] [address] [address] Marvin Reis Color (U) LT. YELLOW Normal YELLOW [facility] Comment on above: Performed By: #### U AMIC #### [facility] [address] [address] [address] Marvin Reis Crystals LM Nom (Urine sed) NONE SEEN Normal NONE SEEN [facility] Comment on above: Performed By: #### U AMIC #### [facility] [address] [place] [address] Dr. Marvin Reis Epithelial cells LM Ql (Urine sed) RARE Normal NONE SEEN /RARE [facility] Comment on above: Performed By: #### U AMIC #### [facility] [address] [address] [address] Marvin Reis Glucose Ql (U) Negative Normal NEGATIVE [facility] Comment on above: Performed By: #### U AMIC #### [facility] [address] [place] [address] Dr. Marvin Reis Hemoglobin Ql (U) Negative Normal NEGATIVE [facility] Comment on above: Performed By: #### U AMIC #### [facility] [address] [address] [address] Marvin Reis Ketones Ql (U) Negative Normal NEGATIVE [facility] Comment on above: Performed By: #### U AMIC #### [facility] [address] [address] [address] Marvin Reis LEUKOCYTES MODERATE Abnormal NEGATIVE [facility] Comment on above: Performed By: #### U AMIC #### [facility] [address] [place] [address] Dr. Marvin Reis MUCOUS NONE SEEN Normal NONE SEEN [facility] Comment on above: Performed By: #### U AMIC #### [facility] [address] [address] [address] Marvin Reis Nitrite Ql (U) Negative Normal NEGATIVE [facility] Comment on above: Performed By: #### U AMIC #### [facility] [address] [place] [address] Dr. Marvin Reis pH (U) 5.5 [pH] Normal 5-9 [facility] Comment on above: Performed By: #### U AMIC #### [facility] [address] [place] [address] Dr. Marvin Reis RBC NONE SEEN Abnormal 0-2 [facility] Comment on above: Performed By: #### U AMIC #### [facility] [address] [place] [address] Dr. Marvin Reis SPEC GRAVITY 1.015 Normal 1.005-<=1.025 [facility] Comment on above: Performed By: #### U AMIC #### [facility] [address] [place] [address] Dr. Marvin Reis UA PROTEIN Negative Normal NEGATIVE/ TRACE [facility] Comment on above: Performed By: #### U AMIC #### [facility] [address] [place] [address] Dr. Marvin Reis Urobilinogen Qn (U) 0.2 {Robbie'U}/dL Normal 0.2 - 1. 0 [facility] [facility] Comment on above: Performed By: #### U AMIC #### [facility] [address] [place] [address] Dr. Marvin Reis WBC 10-20 Abnormal NONE SEEN [facility] Comment on above: Performed By: #### U AMIC #### [facility] [address] [place] [address] Dr. Marvin Reis CULTURE URINEon 12-05-2022 CULTURE [...] Trimethoprim/Sulfamet hoxazole <=20 S F Normal [facility] Comment on above: Performed By: #### U RCX #### [facility] [address] [place] [address] Dr. Marvin Reis CREATININEon 12-03-2022 Creatinine [Mass/Vol] 0.88 mg/dL Normal 0.70-1.30 [facility] Comment on above: Performed By: #### U RCX #### [facility] [address] [place] [address] Dr. Marvin Reis EGFR-AF BOTSWANAN >60 Normal >=60 [facility] Comment on above: Performed By: #### U RCX #### [facility] [address] [place] [address] Dr. Marvin Reis EGFR-NON AF BOTSWANAN >60 Normal >=60 [facility] Comment on above: Performed By: #### U RCX #### [facility] [address] [place] [address] ABDOMEN WO/W CONon [...] ELENO PARKER Date: 2022-12-03 14:51 Normal [facility] UA RANDOM W/MICROSCOPICon BACTERIA TRACE Abnormal NONE SEEN [facility] Comment on above: Performed By: #### U RCX #### [facility] [address] [place] [address] Dr. Marvin Ries Bilirubin Ql (U) Negative Normal NEGATIVE [facility] Comment on above: Performed By: #### U RCX #### [facility] [address] [place] [address] Dr. Marvin Reis CAST NONE SEEN Normal NONE SEEN [facility] Comment on above: Performed By: #### U RCX #### [facility] [address] [place] [address] Dr. Marvin Reis Clarity (U) CLEAR Normal CLEAR [facility] Comment on above: Performed By: #### U RCX #### [facility] [address] [place] [address] Dr. Marvin Reis Color (U) LT. YELLOW Normal YELLOW [facility] Comment on above: Performed By: #### U RCX #### [facility] [address] [place] [address] Dr. Marvin Reis Crystals LM Nom (Urine sed) NONE SEEN Normal NONE SEEN [facility] Comment on above: Performed By: #### U RCX #### [facility] [address] [place] [address] Dr. Marvin Reis Epithelial cells LM Ql (Urine sed) RARE Normal NONE SEEN /RARE [facility] Comment on above: Performed By: #### U RCX #### [facility] [address] [place] [address] Dr. Marvin Reis Glucose Ql (U) Negative Normal NEGATIVE [facility] Comment on above: Performed By: #### U RCX #### [facility] [address] [place] [address] Dr. Marvin Reis Hemoglobin Ql (U) TRACE-INTACT Abnormal NEGATIVE [facility] Comment on above: Performed By: #### U RCX #### [facility] [address] [place] [address] Dr. Marvin Reis Ketones Ql (U) Negative Normal NEGATIVE [facility] Comment on above: Performed By: #### U RCX #### [facility] [address] [place] [address] Dr. Marvin Reis LEUKOCYTES TRACE Abnormal NEGATIVE [facility] Comment on above: Performed By: #### U RCX #### [facility] [address] [place] [address] Dr. Marvin Reis MUCOUS TRACE Abnormal NONE SEEN [facility] Comment on above: Performed By: #### U RCX #### [facility] [address] [place] [address] Dr. Marvin Reis Nitrite Ql (U) Negative Normal NEGATIVE [facility] Comment on above: Performed By: #### U RCX #### [facility] [address] [place] [address] Dr. Marvin Reis pH (U) 5.0 [pH] Normal 5-9 [facility] Comment on above: Performed By: #### U RCX #### [facility] [address] [place] [address] Dr. Marvin Reis RBC 0-2 Normal 0-2 [facility] Comment on above: Performed By: #### U RCX #### [facility] [address] [place] [address] Dr. Marvin Reis SPEC GRAVITY 1.010 Normal 1.005-<=1.025 [facility] Comment on above: Performed By: #### U RCX #### [facility] [address] [address] [address] Marvin Reis UA PROTEIN TRACE Normal NEGATIVE/ TRACE [facility] Comment on above: Performed By: #### U RCX #### [facility] [address] [address] [address] Marvin Reis Urobilinogen Qn (U) 0.2 {Robbie'U}/dL Normal 0.2 - 1. 0 [facility] Comment on above: Performed By: #### U RCX #### [facility] [address] [address] [address] Marvin Reis WBC 2-5 Abnormal NONE SEEN [facility] Comment on above: Performed By: #### U RCX #### [facility] [address] [address] ABD/PELVIS WO CONon [...] MAGY COMER Date: 2022-11-20 14:51 Normal [facility] CULTURE URINEon 11-11-2022 CULTURE URINE Culture Observations : GUSTABO TO FOLLOW. Isolate 1 Enterobacter aerogenes >100,000 cfu/mL of Normal [facility] Comment on above: Performed By: #### U RCX #### [facility] [address] [place] [address] Dr. Marvin Reis UA RANDOM W/MICROSCOPICon BACTERIA SMALL Abnormal NONE SEEN [facility] Comment on above: Performed By: #### U AMIC #### [facility] [address] [place] [address] Dr. Marvin Reis Bilirubin Ql (U) Negative Normal NEGATIVE [facility] Comment on above: Performed By: #### U AMIC #### [facility] [address] [place] [address] Dr. Marvin Reis CAST NONE SEEN Normal NONE SEEN [facility] Comment on above: Performed By: #### U AMIC #### [facility] [address] [place] [address] Dr. Marvin Reis Clarity (U) CLOUDY Abnormal CLEAR [facility] Comment on above: Performed By: #### U AMIC #### [facility] [address] [place] [address] Dr. Marvin Reis Color (U) LT. YELLOW Normal YELLOW [facility] Comment on above: Performed By: #### U AMIC #### [facility] [address] [address] [address] Marvin Reis Crystals LM Nom (Urine sed) NONE SEEN Normal NONE SEEN [facility] Comment on above: Performed By: #### U AMIC #### [facility] [address] [address] [address] Marvin Reis Epithelial cells LM Ql (Urine sed) NONE SEEN Normal NONE SEEN /RARE [facility] Comment on above: Performed By: #### U AMIC #### [facility] [address] [address] [address] Marvin Reis Glucose Ql (U) Negative Normal NEGATIVE [facility] Comment on above: Performed By: #### U AMIC #### [facility] [address] [address] [address] Marvin Reis Hemoglobin Ql (U) TRACE-INTACT Abnormal NEGATIVE [facility] Comment on above: Performed By: #### U AMIC #### [facility] [address] [address] [address] Marvin Reis Ketones Ql (U) Negative Normal NEGATIVE [facility] Comment on above: Performed By: #### U AMIC #### [facility] [address] [address] [address] Marvin Reis LEUKOCYTES LARGE Abnormal NEGATIVE [facility] Comment on above: Performed By: #### U AMIC #### [facility] [address] [address] [address] Marvin Reis MUCOUS NONE SEEN Normal NONE SEEN [facility] Comment on above: Performed By: #### U AMIC #### [facility] [address] [address] [address] Marvin Reis Nitrite Ql (U) Positive Abnormal NEGATIVE [facility] Comment on above: Performed By: #### U AMIC #### [facility] [address] [address] [address] Marvin Reis pH (U) 5.5 [pH] Normal 5-9 [facility] Comment on above: Performed By: #### U AMIC #### [facility] [address] [address] [address] Marvin Reis RBC 0-2 Normal 0-2 [facility] Comment on above: Performed By: #### U AMIC #### [facility] [address] [address] [address] Marvin Reis SPEC GRAVITY 1.015 Normal 1.005-<=1.025 [facility] Comment on above: Performed By: #### U AMIC #### [facility] [address] [place] [address] Dr. Marvin Reis UA PROTEIN Negative Normal NEGATIVE/ TRACE [facility] Comment on above: Performed By: #### U AMIC #### [facility] [address] [place] [address] Dr. Marvin Reis Urobilinogen Qn (U) 0.2 {Robbie'U}/dL Normal 0.2 - 1. 0 [facility] Comment on above: Performed By: #### U AMIC #### [facility] [address] [place] [address] Dr. Marvin Reis WBC 10-20 Abnormal NONE SEEN [facility] Comment on above: Performed By: #### U AMIC #### [facility] [address] [place] [address] Dr. Marvin Reis CULTURE URINEon 10-24-2022 CULTURE [...] Trimethoprim/Sulfamet hoxazole <=20 S F Normal [facility] Comment on above: Performed By: #### U RCX #### [facility] [address] [place] [address] Dr. Marvin Reis UA RANDOM W/MICROSCOPICon BACTERIA LARGE Abnormal NONE SEEN [facility] Comment on above: Performed By: #### U AMIC #### [facility] [address] [place] [address] Dr. Marvin Reis Bilirubin Ql (U) Negative Normal NEGATIVE [facility] Comment on above: Performed By: #### U AMIC #### [facility] [address] [address] [address] Marvin Reis CAST NONE SEEN Normal NONE SEEN [facility] Comment on above: Performed By: #### U AMIC #### [facility] [address] [address] [address] Marvin Reis Clarity (U) SL CLOUDY Abnormal CLEAR [facility] Comment on above: Performed By: #### U AMIC #### [facility] [address] [place] [address] Dr. Marvin eRis Color (U) YELLOW Normal YELLOW [facility] Comment on above: Performed By: #### U AMIC #### [facility] [address] [place] [address] Dr. Marvin Reis Crystals LM Nom (Urine sed) NONE SEEN Normal NONE SEEN [facility] Comment on above: Performed By: #### U AMIC #### [facility] [address] [place] [address] Dr. Marvin Reis Epithelial cells LM Ql (Urine sed) FEW Abnormal NONE SEEN /RARE [facility] Comment on above: Performed By: #### U AMIC #### [facility] [address] [address] [address] Marvin Reis Glucose Ql (U) Negative Normal NEGATIVE [facility] Comment on above: Performed By: #### U AMIC #### [facility] [address] [place] [address] Dr. Marvin Reis Hemoglobin Ql (U) TRACE-INTACT Abnormal NEGATIVE [facility] Comment on above: Performed By: #### U AMIC #### [facility] [address] [place] [address] Dr. Marvin Reis Ketones Ql (U) Negative Normal NEGATIVE [facility] Comment on above: Performed By: #### U AMIC #### [facility] [address] [address] [address] Marvin Reis LEUKOCYTES LARGE Abnormal NEGATIVE [facility] Comment on above: Performed By: #### U AMIC #### [facility] [address] [address] [address] Marvin Reis MUCOUS NONE SEEN Normal NONE SEEN [facility] Comment on above: Performed By: #### U AMIC #### [facility] [address] [address] [address] Marvni Reis Nitrite Ql (U) Negative Normal NEGATIVE [facility] Comment on above: Performed By: #### U AMIC #### [facility] [address] [place] [address] Dr. Marvin Reis pH (U) 5.0 [pH] Normal 5-9 [facility] Comment on above: Performed By: #### U AMIC #### [facility] [address] [address] [address] Marvin Reis RBC 5-10 Abnormal 0-2 [facility] Comment on above: Performed By: #### U AMIC #### [facility] [address] [place] [address] Dr. Marvin Reis SPEC GRAVITY 1.010 Normal 1.005-<=1.025 [facility] Comment on above: Performed By: #### U AMIC #### [facility] [address] [place] [address] Dr. Marvin Reis UA PROTEIN Negative Normal NEGATIVE/ TRACE [facility] Comment on above: Performed By: #### U AMIC #### [facility] [address] [place] [address] Dr. Marvin Reis Urobilinogen Qn (U) 0.2 {Robbie'U}/dL Normal 0.2 - 1. 0 [facility] Comment on above: Performed By: #### U AMIC #### [facility] [address] [place] [address] Dr. Marvin Reis WBC 50-75 Abnormal NONE SEEN [facility] Comment on above: Performed By: #### U AMIC #### [facility] [address] [address] [address] Marvin Reis CULTURE URINEon 10-01-2022 CULTURE URINE Culture Observations : NO GROWTH. Normal [facility] Comment on above: Performed By: #### U AMIC #### [facility] [address] [address] [address] Marvin Reis UA RANDOM W/MICROSCOPICon BACTERIA SMALL Abnormal NONE SEEN [facility] Comment on above: Performed By: #### U AMIC #### [facility] [address] [address] [address] Marvin Reis Bilirubin Ql (U) Negative Normal NEGATIVE [facility] Comment on above: Performed By: #### U AMIC #### [facility] [address] [address] [address] Marvin Reis CAST SEEN Abnormal NONE SEEN [facility] Comment on above: Performed By: #### U AMIC #### [facility] [address] [address] [address] Marvin Reis Clarity (U) CLEAR Normal CLEAR [facility] Comment on above: Performed By: #### U AMIC #### [facility] [address] [address] [address] Marvin Reis Color (U) LT. YELLOW Normal YELLOW [facility] Comment on above: Performed By: #### U AMIC #### [facility] [address] [address] [address] Marvin Reis Crystals LM Nom (Urine sed) NONE SEEN Normal NONE SEEN [facility] Comment on above: Performed By: #### U AMIC #### [facility] [address] [address] [address] Marvin Reis Epithelial cells LM Ql (Urine sed) FEW Abnormal NONE SEEN /RARE [facility] Comment on above: Performed By: #### U AMIC #### [facility] [address] [address] [address] Marvin Reis Glucose Ql (U) Negative Normal NEGATIVE [facility] Comment on above: Performed By: #### U AMIC #### [facility] [address] [address] [address] Marvin Reis Hemoglobin Ql (U) TRACE-INTACT Abnormal NEGATIVE [facility] Comment on above: Performed By: #### U AMIC #### [facility] [address] [address] [address] Marvin Reis HYALINE CAST FEW Normal [facility] Comment on above: Performed By: #### U AMIC #### [facility] [address] [address] [address] Marvin Reis Ketones Ql (U) Negative Normal NEGATIVE [facility] Comment on above: Performed By: #### U AMIC #### [facility] [address] [address] [address] Marvin Reis LEUKOCYTES MODERATE Abnormal NEGATIVE [facility] Comment on above: Performed By: #### U AMIC #### [facility] [address] [address] [address] Marvin Reis MUCOUS SMALL Abnormal NONE SEEN [facility] Comment on above: Performed By: #### U AMIC #### [facility] [address] [address] [address] Marvin Reis Nitrite Ql (U) Negative Normal NEGATIVE [facility] Comment on above: Performed By: #### U AMIC #### [facility] [address] [address] [address] Marvin Reis pH (U) 5.5 [pH] Normal 5-9 [facility] Comment on above: Performed By: #### U AMIC #### [facility] [address] [place] [address] Dr. Marvin Reis RBC 0-2 Normal 0-2 [facility] Comment on above: Performed By: #### U AMIC #### [facility] [address] [place] [address] Dr. Marvin Reis SPEC GRAVITY 1.020 Normal 1.005-<=1.025 [facility] Comment on above: Performed By: #### U AMIC #### [facility] [address] [place] [address] Dr. Marvin Reis UA PROTEIN Negative Normal NEGATIVE/ TRACE [facility] Comment on above: Performed By: #### U AMIC #### [facility] [address] [place] [address] Dr. Marvin Reis Urobilinogen Qn (U) 0.2 {Robbie'U}/dL Normal 0.2 - 1. 0 [facility] Comment on above: Performed By: #### U AMIC #### [facility] [address] [place] [address] Dr. Marvin Reis WBC 10-20 Abnormal NONE SEEN [facility] Comment on above: Performed By: #### U AMIC #### [facility] [address] [place] [address] Dr. Marvin Reis CULTURE URINEon 09-26-2022 CULTURE [...] Trimethoprim/Sulfamet hoxazole <=20 S F Normal [facility] Comment on above: Performed By: #### U RCX #### [facility] [address] [place] [address] Dr. Marvin Reis CBC W MANUAL DIFFon 09-25-20 ANISOCYTOSIS SLIGHT Normal [facility] Comment on above: Performed By: #### U RCX #### [facility] [address] [place] [address] Dr. Marvin Reis ATYPICAL LYMPH # Normal [facility] Comment on above: Performed By: #### U RCX #### [facility] [address] [place] [address] Dr. Marvin Reis ATYPICAL LYMPH % Normal [facility] Comment on above: Performed By: #### U RCX #### [facility] [address] [address] [address] Marvin Reis BAND # Normal 0.0-0.3 [facility] Comment on above: Performed By: #### U RCX #### [facility] [address] [place] [address] Dr. Marvin Reis BAND % Normal 0-5 [facility] Comment on above: Performed By: #### U RCX #### [facility] [address] [address] [address] Marvin Reis BASOM # 0.00 103/ul Normal 0.00-0.10 [facility] Comment on above: Performed By: #### U RCX #### [facility] [address] [place] [address] Dr. Marvin Reis BASOM % 0.0 % Critically low 0.2-2.0 [facility] Comment on above: Performed By: #### U RCX #### [facility] [address] [place] [address] Dr. Marvin Reis BLAST # Normal [facility] Comment on above: Performed By: #### U RCX #### [facility] [address] [place] [address] Dr. Marvin Reis BLAST % Normal [facility] Comment on above: Performed By: #### U RCX #### [facility] [address] [place] [address] Dr. Marvin Reis CORRECTED WBC Normal 4.0-11.0 [facility] Comment on above: Performed By: #### U RCX #### [facility] [address] [place] [address] Dr. Marvin Reis EOS # 0.00 103/ul Normal 0.00-0.70 [facility] Comment on above: Performed By: #### U RCX #### [facility] [address] [place] [address] Dr. Marvin Reis EOS% 0.0 % Critically low 0.9-7.0 [facility] Comment on above: Performed By: #### U RCX #### [facility] [address] [address] [address] Marvin Reis HCT 32.1 % Critically low 42.0-54.0 [facility] Comment on above: Performed By: #### U RCX #### [facility] [address] [address] [address] Marvin Reis HGB 10.2 g/dl Critically low 14.0-18.0 [facility] Comment on above: Performed By: #### U RCX #### [facility] [address] [address] [address] Marvin Reis LYMPHM # 0.76 103/ul Critically low 1.20-3.80 [facility] Comment on above: Performed By: #### U RCX #### [facility] [address] [place] [address] Dr. Marvin Reis LYMPHM% 14.0 % Critically low 20.5-60.0 [facility] Comment on above: Performed By: #### U RCX #### [facility] [address] [place] [address] Dr. Marvin Reis MCH 26.5 pg Normal 25.9-34.0 [facility] Comment on above: Performed By: #### U RCX #### [facility] [address] [place] [address] Dr. Marvin Reis MCHC 31.8 g/dl Normal 29.9-35.2 [facility] Comment on above: Performed By: #### U RCX #### [facility] [address] [address] [address] Marvin Reis MCV 83.4 fL Normal 80.0-94.0 [facility] Comment on above: Performed By: #### U RCX #### [facility] [address] [place] [address] Dr. Marvin Reis METAMYELOCYTE # Normal [facility] Comment on above: Performed By: #### U RCX #### [facility] [address] [address] [address] Marvin Reis METAMYELOCYTE % Normal [facility] Comment on above: Performed By: #### U RCX #### [facility] [address] [address] [address] Marvin Reis MONOM# 0.27 103/ul Critically low 0.30-0.80 [facility] Comment on above: Performed By: #### U RCX #### [facility] [address] [address] [address] Marvin Reis MONOM% 5.0 % Normal 1.7-12.0 [facility] Comment on above: Performed By: #### U RCX #### [facility] [address] [address] [address] Marvin Reis MPV 9.8 fL Normal 9.5-13.5 [facility] Comment on above: Performed By: #### U RCX #### [facility] [address] [place] [address] Dr. Marvin Reis MYELOCYTE # Normal [facility] Comment on above: Performed By: #### U RCX #### [facility] [facility] [address] [address] [address] Marvin Reis MYELOCYTE % Normal [facility] Comment on above: Performed By: #### U RCX #### [facility] [address] [address] [address] Marvin Reis NRBC Normal [facility] Comment on above: Performed By: #### U RCX #### [facility] [address] [address] [address] Marvin Reis PLT 78 103/ul Critically low 150-450 [facility] Comment on above: Performed By: #### U RCX #### [facility] [address] [address] [address] Marvin Reis RBC 3.85 106/ul Critically low 4.70-6.10 [facility] Comment on above: Performed By: #### U RCX #### [facility] [address] [place] [address] Dr. Marvin Reis RDW 15.8 % Critically high 11.0-15.0 [facility] Comment on above: Performed By: #### U RCX #### [facility] [address] [address] [address] Marvin Reis SEG # 4.37 103/ul Normal 1.40-6.50 [facility] Comment on above: Performed By: #### U RCX #### [facility] [address] [address] [address] Marvin Reis SEG % 81.0 % Critically high 43.0-75.0 [facility] Comment on above: Performed By: #### U RCX #### [facility] [address] [address] [address] Marvin Reis WBC 5.4 103/ul Normal 4.0-11.0 [facility] Comment on above: Performed By: #### U RCX #### [facility] [address] [place] [address] Dr. Marvin Reis CRPon 09-25-2022 CRP 8.9 mg/dL Critically high <=1.0 [facility] Comment on above: Performed By: #### U AMIC #### [facility] [address] [place] [address] Dr. Marvin Reis LACTATE/LACTIC ACIDon 2021 Lactate [Moles/Vol] 0.9 mmol/L Normal 0.4-1.9 [facility] Comment on above: Performed By: #### U RCX #### [facility] [address] [address] [address] Marvin Reis PROF 14(COMP METB)on 022 Albumin [Mass/Vol] 2.6 g/dL Critically low 3.4-5.0 [facility] Comment on above: Performed By: #### U AMIC #### [facility] [address] [place] [address] Dr. Marvin Reis Albumin/Globulin [Mass ratio] 0.7 {ratio} Normal [facility] Comment on above: Performed By: #### U AMIC #### [facility] [address] [place] [address] Dr. Marvin Reis ALP [Catalytic activity/Vol] 75 U/L Normal 46-116 [facility] Comment on above: Performed By: #### U AMIC #### [facility] [address] [address] [address] Marvin Reis ALT [Catalytic activity/Vol] 23 U/L Normal 16-63 [facility] Comment on above: Performed By: #### U AMIC #### [facility] [address] [address] [address] Marvin Reis Anion gap [Moles/Vol] 11.8 mmol/L Normal [facility] Comment on above: Performed By: #### U AMIC #### [facility] [address] [address] [address] Marvin Reis AST [Catalytic activity/Vol] 21 U/L Normal 15-37 [facility] Comment on above: Performed By: #### U AMIC #### [facility] [address] [address] [address] Marvin Reis Bilirubin [Mass/Vol] 0.8 mg/dL Normal 0.2-1.0 [facility] Comment on above: Performed By: #### U AMIC #### [facility] [address] [place] [address] Dr. Marvin Reis Calcium [Mass/Vol] 8.7 mg/dL Normal 8.5-10.1 [facility] Comment on above: Performed By: #### U AMIC #### [facility] [address] [address] [address] Marvin Reis Chloride [Moles/Vol] 105 mmol/L Normal 98-107 [facility] Comment on above: Performed By: #### U AMIC #### [facility] [address] [address] [address] Marvin Reis CO2 [Moles/Vol] 26.1 mmol/L Normal 21.0-32.0 [facility] Comment on above: Performed By: #### U AMIC #### [facility] [address] [address] [address] Marvin Reis Creatinine [Mass/Vol] 0.88 mg/dL Normal 0.70-1.30 [facility] Comment on above: Performed By: #### U AMIC #### [facility] [address] [address] [address] Marvin Reis EGFR-AF BOTSWANAN >60 Normal >=60 [facility] Comment on above: Performed By: #### U AMIC #### [facility] [address] [address] [address] Marvin Reis EGFR-NON AF BOTSWANAN >60 Normal >=60 [facility] Comment on above: Performed By: #### U AMIC #### [facility] [address] [address] [address] Marvin Reis Globulin (S) [Mass/Vol] 3.7 g/dL Normal [facility] Comment on above: Performed By: #### U AMIC #### [facility] [address] [address] [address] Marvin Reis Glucose [Mass/Vol] 93 mg/dL Normal 74-106 [facility] Comment on above: Performed By: #### U AMIC #### [facility] [address] [address] [address] Mavrin Reis Potassium [Moles/Vol] 3.9 mmol/L Normal 3.5-5.1 [facility] Comment on above: Performed By: #### U AMIC #### [facility] [address] [address] [address] Marvin Reis Protein [Mass/Vol] 6.3 g/dL Critically low 6.4-8.2 [facility] Comment on above: Performed By: #### U AMIC #### [facility] [address] [address] [address] Marvin Reis Sodium [Moles/Vol] 139 mmol/L Normal 136-145 [facility] Comment on above: Performed By: #### U AMIC #### [facility] [address] [address] [address] Marvin Reis Urea nitrogen [Mass/Vol] 20.0 mg/dL Critically high 7.0-18.0 [facility] Comment on above: Performed By: #### U AMIC #### [facility] [address] [address] [address] Marvin Reis Urea nitrogen/Creatinine [Mass ratio] 22.7 mg/mg Normal [facility] Comment on above: Performed By: #### U AMIC #### [facility] [address] [address] [address] Marvin Reis SED RATE WESTERGREN 2021 SED RATE 49 mm/hr Critically high <=20 [facility] Comment on above: Performed By: #### U AMIC #### [facility] [address] [address] [address] Marvin Reis CBC W MANUAL DIFFon 09-24-20 ATYPICAL LYMPH # Normal [facility] Comment on above: Performed By: #### U RCX #### [facility] [address] [place] [address] Dr. Marvin Reis ATYPICAL LYMPH % Normal [facility] Comment on above: Performed By: #### U RCX #### [facility] [address] [place] [address] Dr. Marvin Reis BAND # Normal 0.0-0.3 [facility] Comment on above: Performed By: #### U RCX #### [facility] [address] [place] [address] Dr. Marvin Reis BAND % Normal 0-5 [facility] Comment on above: Performed By: #### U RCX #### [facility] [address] [address] [address] Marvin Reis BASOM # 0.00 103/ul Normal 0.00-0.10 [facility] Comment on above: Performed By: #### U RCX #### [facility] [address] [place] [address] Dr. Marvin Reis BASOM % 0.0 % Critically low 0.2-2.0 [facility] Comment on above: Performed By: #### U RCX #### [facility] [address] [place] [address] Dr. Marvin Reis BLAST # Normal [facility] Comment on above: Performed By: #### U RCX #### [facility] [address] [address] [address] Marvin Reis BLAST % Normal [facility] Comment on above: Performed By: #### U RCX #### [facility] [address] [address] [address] Marvin Reis CORRECTED WBC Normal 4.0-11.0 [facility] Comment on above: Performed By: #### U RCX #### [facility] [address] [address] [address] Marvin Reis EOS # 0.00 103/ul Normal 0.00-0.70 [facility] Comment on above: Performed By: #### U RCX #### [facility] [address] [address] [address] Marvin Reis EOS% 0.0 % Critically low 0.9-7.0 [facility] Comment on above: Performed By: #### U RCX #### [facility] [address] [address] [address] Marvin Reis HCT 33.5 % Critically low 42.0-54.0 [facility] Comment on above: Performed By: #### U RCX #### [facility] [address] [place] [address] Dr. Marvin Reis HGB 10.9 g/dl Critically low 14.0-18.0 [facility] Comment on above: Performed By: #### U RCX #### [facility] [address] [address] [address] Marvin Reis LYMPHM # 0.52 103/ul Critically low 1.20-3.80 [facility] Comment on above: Performed By: #### U RCX #### [facility] [address] [address] [address] Marvin Reis LYMPHM% 4.0 % Critically low 20.5-60.0 [facility] Comment on above: Performed By: #### U RCX #### [facility] [address] [address] [address] Marvin Reis MCH 27.2 pg Normal 25.9-34.0 [facility] Comment on above: Performed By: #### U RCX #### [facility] [address] [place] [address] Dr. Marvin Reis MCHC 32.5 g/dl Normal 29.9-35.2 [facility] Comment on above: Performed By: #### U RCX #### [facility] [address] [address] [address] Marvin Reis MCV 83.5 fL Normal 80.0-94.0 [facility] Comment on above: Performed By: #### U RCX #### [facility] [address] [place] [address] Dr. Marvin Reis METAMYELOCYTE # Normal [facility] Comment on above: Performed By: #### U RCX #### [facility] [address] [place] [address] Dr. Marvin Reis METAMYELOCYTE % Normal [facility] Comment on above: Performed By: #### U RCX #### [facility] [address] [place] [address] Dr. Marvin Reis MONOM# 0.39 103/ul Normal 0.30-0.80 [facility] Comment on above: Performed By: #### U RCX #### [facility] [address] [place] [address] Dr. Marvin Reis MONOM% 3.0 % Normal 1.7-12.0 [facility] Comment on above: Performed By: #### U RCX #### [facility] [address] [place] [address] Dr. Marvin Reis MPV 10.5 fL Normal 9.5-13.5 [facility] Comment on above: Performed By: #### U RCX #### [facility] [address] [place] [address] Dr. Marvin Reis MYELOCYTE # Normal [facility] Comment on above: Performed By: #### U RCX #### [facility] [address] [place], [place] [id number] Dr. Marvin Reis MYELOCYTE % Normal [facility] Comment on above: Performed By: #### U RCX #### [facility] [address] [address] [address] Marvin Reis NRBC Normal [facility] Comment on above: Performed By: #### U RCX #### [facility] [address] [address] [address] Marvin Reis PLT 96 103/ul Critically low 150-450 [facility] Comment on above: Performed By: #### U RCX #### [facility] [address] [address] [address] Marvin Reis RBC 4.01 106/ul Critically low 4.70-6.10 [facility] Comment on above: Performed By: #### U RCX #### [facility] [address] [address] [address] Marvin Reis RDW 15.8 % Critically high 11.0-15.0 [facility] Comment on above: Performed By: #### U RCX #### [facility] [address] [address] [address] Marvin Reis SEG # 12.00 103/ul Critically high 1.40-6.50 [facility] Comment on above: Performed By: #### U RCX #### [facility] [address] [address] [address] Marvin Reis SEG % 93.0 % Critically high 43.0-75.0 [facility] Comment on above: Performed By: #### U RCX #### [facility] [address] [address] [address] Marvin Reis WBC 12.9 103/ul Critically high 4.0-11.0 [facility] Comment on above: Performed By: #### U RCX #### [facility] [address] [address] [address] Marvin Reis CRPon 09-24-2022 CRP 8.4 mg/dL Critically high <=1.0 [facility] Comment on above: Performed By: #### U AMIC #### [facility] [address] [place] [address] Dr. Marvin Reis LACTATE/LACTIC ACIDon 2021 Lactate [Moles/Vol] 2.2 mmol/L Critically high 0.4-1.9 [facility] Comment on above: Performed By: #### L ACT #### [facility] [address] [address] [address] Marvin Reis PROF 14(COMP METB)on 022 Albumin [Mass/Vol] 2.8 g/dL Critically low 3.4-5.0 [facility] Comment on above: Performed By: #### U AMIC #### [facility] [address] [place] [address] Dr. Marvin Reis Albumin/Globulin [Mass ratio] 0.7 {ratio} Normal [facility] Comment on above: Performed By: #### U AMIC #### [facility] [address] [place] [address] Dr. Marvin Reis ALP [Catalytic activity/Vol] 80 U/L Normal 46-116 [facility] Comment on above: Performed By: #### U AMIC #### [facility] [address] [place] [address] Dr. Marvin Reis ALT [Catalytic activity/Vol] 20 U/L Normal 16-63 [facility] Comment on above: Performed By: #### U AMIC #### [facility] [address] [place] [address] Dr. Marvin Reis Anion gap [Moles/Vol] 12.3 mmol/L Normal [facility] Comment on above: Performed By: #### U AMIC #### [facility] [address] [place] [address] Dr. Marvin Reis AST [Catalytic activity/Vol] 17 U/L Normal 15-37 [facility] Comment on above: Performed By: #### U AMIC #### [facility] [address] [place] [address] Dr. Marvin Reis Bilirubin [Mass/Vol] 1.0 mg/dL Normal 0.2-1.0 [facility] Comment on above: Performed By: #### U AMIC #### [facility] [address] [address] [address] Marvin Reis Calcium [Mass/Vol] 9.0 mg/dL Normal 8.5-10.1 [facility] Comment on above: Performed By: #### U AMIC #### [facility] [address] [address] [address] Marvin Reis Chloride [Moles/Vol] 106 mmol/L Normal 98-107 [facility] Comment on above: Performed By: #### U AMIC #### [facility] [address] [address] [address] Marvin Reis CO2 [Moles/Vol] 25.8 mmol/L Normal 21.0-32.0 [facility] Comment on above: Performed By: #### U AMIC #### [facility] [address] [address] [address] Marvin Reis Creatinine [Mass/Vol] 1.08 mg/dL Normal 0.70-1.30 [facility] Comment on above: Performed By: #### U AMIC #### [facility] [address] [address] [address] Marvin Reis EGFR-AF BOTSWANAN >60 Normal >=60 [facility] Comment on above: Performed By: #### U AMIC #### [facility] [address] [address] [address] Marvin Reis EGFR-NON AF BOTSWANAN >60 Normal >=60 [facility] Comment on above: Performed By: #### U AMIC #### [facility] [address] [address] [address] Marvin Reis Globulin (S) [Mass/Vol] 3.8 g/dL Normal [facility] Comment on above: Performed By: #### U AMIC #### [facility] [address] [address] [address] Marvin Reis Glucose [Mass/Vol] 117 mg/dL Critically high 74-106 [facility] Comment on above: Performed By: #### U AMIC #### [facility] [address] [address] [address] Marvin Reis Potassium [Moles/Vol] 4.1 mmol/L Normal 3.5-5.1 [facility] Comment on above: Performed By: #### U AMIC #### [facility] [address] [address] [address] Marvin Reis Protein [Mass/Vol] 6.6 g/dL Normal 6.4-8.2 [facility] Comment on above: Performed By: #### U AMIC #### [facility] [address] [address] [address] Marvin Reis Sodium [Moles/Vol] 140 mmol/L Normal 136-145 [facility] Comment on above: Performed By: #### U AMIC #### [facility] [address] [address] [address] Marvin Reis Urea nitrogen [Mass/Vol] 23.0 mg/dL Critically high 7.0-18.0 [facility] Comment on above: Performed By: #### U AMIC #### [facility] [address] [address] [address] Marvin Reis Urea nitrogen/Creatinine [Mass ratio] 21.3 mg/mg Normal [facility] Comment on above: Performed By: #### U AMIC #### [facility] [address] [address] [address] Marvin Reis SED RATE Merged with [facility] 2021 SED RATE 51 mm/hr Critically high <=20 [facility] Comment on above: Performed By: #### U RCX #### [facility] [address] [address] [address] Marvin Reis UA RANDOMon 09-24-2022 Bilirubin Ql (U) Negative Normal NEGATIVE [facility] Comment on above: Performed By: #### U AMIC #### [facility] [address] [address] [address] Marvin Reis Clarity (U) CLEAR Normal CLEAR [facility] Comment on above: Performed By: #### U AMIC #### [facility] [address] [address] [address] Marvin Reis Color (U) LT. YELLOW Normal YELLOW [facility] Comment on above: Performed By: #### U AMIC #### [facility] [address] [address] [address] Marvin Reis Glucose Ql (U) Negative Normal NEGATIVE [facility] Comment on above: Performed By: #### U AMIC #### [facility] [address] [address] [address] Marvin Reis Hemoglobin Ql (U) LARGE Abnormal NEGATIVE [facility] Comment on above: Performed By: #### U AMIC #### [facility] [address] [address] [address] Marvin Reis Ketones Ql (U) Negative Normal NEGATIVE [facility] Comment on above: Performed By: #### U AMIC #### [facility] [address] [place] [address] Dr. Marvin Reis LEUKOCYTES MODERATE Abnormal NEGATIVE [facility] Comment on above: Performed By: #### U AMIC #### [facility] [address] [address] [address] Marvin Reis Nitrite Ql (U) Negative Normal NEGATIVE [facility] Comment on above: Performed By: #### U AMIC #### [facility] [address] [place] [address] Dr. Marvin Reis pH (U) 5.5 [pH] Normal 5-9 [facility] Comment on above: Performed By: #### U AMIC #### [facility] [address] [place] [address] Dr. Marvin Reis SPEC GRAVITY 1.020 Normal 1.005-<=1.025 [facility] Comment on above: Performed By: #### U AMIC #### [facility] [address] [place] [address] Dr. Marvin Reis UA PROTEIN Negative Normal NEGATIVE/ TRACE [facility] Comment on above: Performed By: #### U AMIC #### [facility] [address] [place] [address] Dr. Marvin Reis Urobilinogen Qn (U) 0.2 {Robbie'U}/dL Normal 0.2 - 1. 0 [facility] Comment on above: Performed By: #### U AMIC #### [facility] [address] [place] [address] Dr. Marvin Reis CULTURE URINEon 09-13-2022 CULTURE [...] F Oxacillin >=4 R F Normal [facility] Comment on above: Performed By: #### U RCX #### [facility] [address] [place] [address] Dr. Marvin Reis UA RANDOM W/MICROSCOPICon BACTERIA TRACE Abnormal NONE SEEN [facility] Comment on above: Performed By: #### U AMIC #### [facility] [address] [place] [address] Dr. Marvin Reis Bilirubin Ql (U) Negative Normal NEGATIVE [facility] Comment on above: Performed By: #### U AMIC #### [facility] [address] [place] [address] Dr. Marvin Reis CAST NONE SEEN Normal NONE SEEN [facility] Comment on above: Performed By: #### U AMIC #### [facility] [address] [place] [address] Dr. Marvin Reis Clarity (U) CLEAR Normal CLEAR [facility] Comment on above: Performed By: #### U AMIC #### [facility] [address] [place] [address] Dr. Marvin Reis Color (U) LT. YELLOW Normal YELLOW [facility] Comment on above: Performed By: #### U AMIC #### [facility] [address] [address] [address] Marvin Reis Crystals LM Nom (Urine sed) NONE SEEN Normal NONE SEEN [facility] Comment on above: Performed By: #### U AMIC #### [facility] [address] [address] [address] Marvin Reis Epithelial cells LM Ql (Urine sed) FEW Abnormal NONE SEEN /RARE [facility] Comment on above: Performed By: #### U AMIC #### [facility] [address] [address] [address] Marvin Reis Glucose Ql (U) Negative Normal NEGATIVE [facility] Comment on above: Performed By: #### U AMIC #### [facility] [address] [address] [address] Marvin Reis Hemoglobin Ql (U) Negative Normal NEGATIVE [facility] Comment on above: Performed By: #### U AMIC #### [facility] [address] [address] [address] Marvin Reis Ketones Ql (U) Negative Normal NEGATIVE [facility] Comment on above: Performed By: #### U AMIC #### [facility] [address] [address] [address] Marvin Reis LEUKOCYTES LARGE Abnormal NEGATIVE [facility] Comment on above: Performed By: #### U AMIC #### [facility] [address] [address] [address] Marvin Reis MUCOUS NONE SEEN Normal NONE SEEN [facility] Comment on above: Performed By: #### U AMIC #### [facility] [address] [address] [address] Marvin Reis Nitrite Ql (U) Negative Normal NEGATIVE [facility] Comment on above: Performed By: #### U AMIC #### [facility] [address] [address] [address] Marvin Reis pH (U) 5.5 [pH] Normal 5-9 [facility] Comment on above: Performed By: #### U AMIC #### [facility] [address] [address] [address] Marvin Reis RBC 0-2 Normal 0-2 [facility] Comment on above: Performed By: #### U AMIC #### [facility] [address] [address] [address] Marvin Reis SPEC GRAVITY 1.025 Normal 1.005-<=1.025 [facility] Comment on above: Performed By: #### U AMIC #### [facility] [address] [place] [address] Dr. Marvin COOLEY PROTEIN Negative Normal NEGATIVE/ TRACE [facility] Comment on above: Performed By: #### U AMIC #### [facility] [address] [place] [address] Dr. Marvin Reis Urobilinogen Qn (U) 0.2 {Robbie'U}/dL Normal 0.2 - 1. 0 [facility] Comment on above: Performed By: #### U AMIC #### [facility] [address] [place] [address] Dr. Marvin Reis WBC 10-20 Abnormal NONE SEEN [facility] Comment on above: Performed By: #### U AMIC #### [facility] [address] [place] [address] Dr. Marvin Reis CULTURE URINEon 08-17-2022 CULTURE [...] Trimethoprim/Sulfamet hoxazole <=20 S F Normal [facility] Comment on above: Performed By: #### U RCX #### [facility] [address] [place] [address] Dr. Marvin Reis UA RANDOM W/MICROSCOPICon BACTERIA MODERATE Abnormal NONE SEEN [facility] Comment on above: Performed By: #### U RCX #### [facility] [address] [place] [address] Dr. Marvin Reis Bilirubin Ql (U) Negative Normal NEGATIVE [facility] Comment on above: Performed By: #### U RCX #### [facility] [address] [place] [address] Dr. Marvin Reis CAST NONE SEEN Normal NONE SEEN [facility] Comment on above: Performed By: #### U RCX #### [facility] [address] [address] [address] Marvin Reis Clarity (U) SL CLOUDY Abnormal CLEAR [facility] Comment on above: Performed By: #### U RCX #### [facility] [address] [place] [address] Dr. Marvin Reis Color (U) LT. YELLOW Normal YELLOW [facility] Comment on above: Performed By: #### U RCX #### [facility] [address] [place] [address] Dr. Marvin Reis Crystals LM Nom (Urine sed) NONE SEEN Normal NONE SEEN [facility] Comment on above: Performed By: #### U RCX #### [facility] [address] [place] [address] Dr. Marvin Reis Epithelial cells LM Ql (Urine sed) RARE Normal NONE SEEN /RARE [facility] Comment on above: Performed By: #### U RCX #### [facility] [address] [place] [address] Dr. Marvin Reis Glucose Ql (U) Negative Normal NEGATIVE [facility] Comment on above: Performed By: #### U RCX #### [facility] [address] [place] [address] Dr. Marvin Reis Hemoglobin Ql (U) SMALL Abnormal NEGATIVE [facility] Comment on above: Performed By: #### U RCX #### [facility] [address] [place] [address] Dr. Marvin Reis Ketones Ql (U) Negative Normal NEGATIVE [facility] Comment on above: Performed By: #### U RCX #### [facility] [address] [address] [address] Marvin Reis LEUKOCYTES MODERATE Abnormal NEGATIVE [facility] Comment on above: Performed By: #### U RCX #### [facility] [address] [address] [address] Marvin Reis MUCOUS NONE SEEN Normal NONE SEEN [facility] Comment on above: Performed By: #### U RCX #### [facility] [address] [place] [address] Dr. Marvin Reis Nitrite Ql (U) Positive Abnormal NEGATIVE [facility] Comment on above: Performed By: #### U RCX #### [facility] [address] [place] [address] Dr. Marvin Reis pH (U) 6.0 [pH] Normal 5-9 [facility] Comment on above: Performed By: #### U RCX #### [facility] [address] [place] [address] Dr. Marvin Reis RBC 0-2 Normal 0-2 [facility] Comment on above: Performed By: #### U RCX #### [facility] [address] [place] [address] Dr. Marvin Reis SPEC GRAVITY 1.015 Normal 1.005-<=1.025 [facility] Comment on above: Performed By: #### U RCX #### [facility] [address] [place] [address] Dr. Marvin Reis UA PROTEIN Negative Normal NEGATIVE/ TRACE [facility] Comment on above: Performed By: #### U RCX #### [facility] [address] [place] [address] Dr. Marvin Reis Urobilinogen Qn (U) 0.2 {Robbie'U}/dL Normal 0.2 - 1. 0 [facility] Comment on above: Performed By: #### U RCX #### [facility] [address] [place] [address] Dr. Marvin Reis WBC 10-20 Abnormal NONE SEEN [facility] Comment on above: Performed By: #### U RCX #### [facility] [address] [place] [address] Dr. Marvin Reis CULTURE URINEon 08-02-2022 CULTURE [...] Trimethoprim/Sulfamet hoxazole <=20 S F Normal [facility] Comment on above: Performed By: #### U RCX #### [facility] [address] [place] [address] Dr. Marvin Reis UA RANDOM W/MICROSCOPICon BACTERIA MODERATE Abnormal NONE SEEN [facility] Comment on above: Performed By: #### U AMIC #### [facility] [address] [place] [address] Dr. Marvin Reis Bilirubin Ql (U) Negative Normal NEGATIVE [facility] Comment on above: Performed By: #### U AMIC #### [facility] [address] [place] [address] Dr. Marvin Reis CAST NONE SEEN Normal NONE SEEN [facility] Comment on above: Performed By: #### U AMIC #### [facility] [address] [place] [address] Dr. Marvin Reis Clarity (U) SL CLOUDY Abnormal CLEAR [facility] Comment on above: Performed By: #### U AMIC #### [facility] [address] [place] [address] Dr. Marvin Reis Color (U) LT. YELLOW Normal YELLOW [facility] Comment on above: Performed By: #### U AMIC #### [facility] [address] [place] [address] Dr. Marvin Reis Crystals LM Nom (Urine sed) NONE SEEN Normal NONE SEEN [facility] Comment on above: Performed By: #### U AMIC #### [facility] [address] [address] [address] Marvin Reis Epithelial cells LM Ql (Urine sed) NONE SEEN Normal NONE SEEN /RARE [facility] Comment on above: Performed By: #### U AMIC #### [facility] [address] [address] [address] Marvin Reis Glucose Ql (U) Negative Normal NEGATIVE [facility] Comment on above: Performed By: #### U AMIC #### [facility] [address] [address] [address] Marvin Reis Hemoglobin Ql (U) TRACE-INTACT Abnormal NEGATIVE [facility] Comment on above: Performed By: #### U AMIC #### [facility] [address] [place] [address] Dr. Marvin Reis Ketones Ql (U) Negative Normal NEGATIVE [facility] Comment on above: Performed By: #### U AMIC #### [facility] [address] [address] [address] Marvin Reis LEUKOCYTES MODERATE Abnormal NEGATIVE [facility] Comment on above: Performed By: #### U AMIC #### [facility] [address] [address] [address] Marvin Reis MUCOUS NONE SEEN Normal NONE SEEN [facility] Comment on above: Performed By: #### U AMIC #### [facility] [address] [address] [address] Marvin Reis Nitrite Ql (U) Positive Abnormal NEGATIVE [facility] Comment on above: Performed By: #### U AMIC #### [facility] [address] [address] [address] Marvin Reis pH (U) 6.0 [pH] Normal 5-9 [facility] Comment on above: Performed By: #### U AMIC #### [facility] [address] [place] [address] Dr. Marvin Reis RBC 0-2 Normal 0-2 [facility] Comment on above: Performed By: #### U AMIC #### [facility] [address] [address] [address] Marvin Reis SPEC GRAVITY 1.015 Normal 1.005-<=1.025 [facility] Comment on above: Performed By: #### U AMIC #### [facility] [address] [address] [address] Marvin Reis UA PROTEIN Negative Normal NEGATIVE/ TRACE [facility] Comment on above: Performed By: #### U AMIC #### [facility] [address] [address] [address] Marvin Reis Urobilinogen Qn (U) 0.2 {Robbie'U}/dL Normal 0.2 - 1. 0 [facility] Comment on above: Performed By: #### U AMIC #### [facility] [address] [place] [address] Dr. Marvin Reis WBC 20-50 Abnormal NONE SEEN [facility] Comment on above: Performed By: #### U AMIC #### [facility] [address] [place] [address] Dr. Marvin Reis CULTURE URINEon 06-27-2022 CULTURE [...] F Oxacillin >=4 R F Normal [facility] Comment on above: Performed By: #### U AMIC #### [facility] [address] [place] [address] Dr. Marvin Reis UA RANDOM W/MICROSCOPICon BACTERIA LARGE Abnormal NONE SEEN [facility] Comment on above: Performed By: #### U RCX #### [facility] [address] [place] [address] Dr. Marvin Reis Bilirubin Ql (U) Negative Normal NEGATIVE [facility] Comment on above: Performed By: #### U RCX #### [facility] [address] [place] [address] Dr. Marvin Reis CAST NONE SEEN Normal NONE SEEN [facility] Comment on above: Performed By: #### U RCX #### [facility] [address] [place] [address] Dr. Marvin Reis Clarity (U) CLEAR Normal CLEAR [facility] Comment on above: Performed By: #### U RCX #### [facility] [address] [place] [address] Dr. Marvin Reis Color (U) LT. YELLOW Normal YELLOW [facility] Comment on above: Performed By: #### U RCX #### [facility] [address] [place] [address] Dr. Marvin Reis Crystals LM Nom (Urine sed) NONE SEEN Normal NONE SEEN [facility] Comment on above: Performed By: #### U RCX #### [facility] [address] [place] [address] Dr. Marvin Reis Epithelial cells LM Ql (Urine sed) FEW Abnormal NONE SEEN /RARE [facility] Comment on above: Performed By: #### U RCX #### [facility] [address] [place] [address] Dr. Marvin Reis Glucose Ql (U) Negative Normal NEGATIVE [facility] Comment on above: Performed By: #### U RCX #### [facility] [address] [place] [address] Dr. Marvin Reis Hemoglobin Ql (U) TRACE-INTACT Abnormal NEGATIVE [facility] Comment on above: Performed By: #### U RCX #### [facility] [address] [place] [address] Dr. Marvin Reis Ketones Ql (U) Negative Normal NEGATIVE [facility] Comment on above: Performed By: #### U RCX #### [facility] [address] [place] [address] Dr. Marvin Reis LEUKOCYTES LARGE Abnormal NEGATIVE [facility] Comment on above: Performed By: #### U RCX #### [facility] [address] [place] [address] Dr. Marvin Reis MUCOUS NONE SEEN Normal NONE SEEN [facility] Comment on above: Performed By: #### U RCX #### [facility] [address] [place] [address] Dr. Marvin Reis Nitrite Ql (U) Positive Abnormal NEGATIVE [facility] Comment on above: Performed By: #### U RCX #### [facility] [address] [place] [address] Dr. Marvin Reis pH (U) 5.5 [pH] Normal 5-9 [facility] Comment on above: Performed By: #### U RCX #### [facility] [address] [place] [address] Dr. Marvin Reis RBC 2-5 Abnormal 0-2 [facility] Comment on above: Performed By: #### U RCX #### [facility] [address] [place] [address] Dr. Marvin Reis SPEC GRAVITY 1.015 Normal 1.005-<=1.025 [facility] Comment on above: Performed By: #### U RCX #### [facility] [address] [place] [address] Dr. Marvin Reis UA PROTEIN Negative Normal NEGATIVE/ TRACE [facility] Comment on above: Performed By: #### U RCX #### [facility] [address] [place] [address] Dr. Marvin Reis Urobilinogen Qn (U) 0.2 {Robbie'U}/dL Normal 0.2 - 1. 0 [facility] Comment on above: Performed By: #### U RCX #### [facility] [address] [place] [address] Dr. Marvin Reis WBC (U) [#/Vol] /uL Abnormal NONE SEEN [facility] Comment on above: Performed By: #### U RCX #### [facility] [address] [place] [address] Dr. Marvin Reis CULTURE URINEon 05-27-2022 CULTURE [...] F Oxacillin >=4 R F Normal [facility] Comment on above: Performed By: #### U RCX #### [facility] [address] [place] [address] Dr. Marvin Reis UA RANDOM W/MICROSCOPICon BACTERIA MODERATE Abnormal NONE SEEN [facility] Comment on above: Performed By: #### U RCX #### [facility] [address] [place] [address] Dr. Marvin Reis Bilirubin Ql (U) Negative Normal NEGATIVE [facility] Comment on above: Performed By: #### U RCX #### [facility] [address] [place] [address] Dr. Marvin Reis CAST NONE SEEN Normal NONE SEEN [facility] Comment on above: Performed By: #### U RCX #### [facility] [address] [place] [address] Dr. Marvin Reis Clarity (U) SL CLOUDY Abnormal CLEAR [facility] Comment on above: Performed By: #### U RCX #### [facility] [address] [place] [address] Dr. Marvin Reis Color (U) LT. YELLOW Normal YELLOW [facility] Comment on above: Performed By: #### U RCX #### [facility] [address] [address] [address] Marvin Reis Crystals LM Nom (Urine sed) NONE SEEN Normal NONE SEEN [facility] Comment on above: Performed By: #### U RCX #### [facility] [address] [place] [address] Dr. Marvin Reis Epithelial cells LM Ql (Urine sed) FEW Abnormal NONE SEEN /RARE [facility] Comment on above: Performed By: #### U RCX #### [facility] [address] [place] [address] Dr. Marvin Reis Glucose Ql (U) Negative Normal NEGATIVE [facility] Comment on above: Performed By: #### U RCX #### [facility] [address] [place] [address] Dr. Marvin Reis Hemoglobin Ql (U) SMALL Abnormal NEGATIVE [facility] Comment on above: Performed By: #### U RCX #### [facility] [address] [place] [address] Dr. Marvin Reis Ketones Ql (U) Negative Normal NEGATIVE [facility] Comment on above: Performed By: #### U RCX #### [facility] [address] [address] [address] Marvin Reis LEUKOCYTES LARGE Abnormal NEGATIVE [facility] Comment on above: Performed By: #### U RCX #### [facility] [address] [address] [address] Marvin Reis MUCOUS TRACE Abnormal NONE SEEN [facility] Comment on above: Performed By: #### U RCX #### [facility] [address] [place] [address] Dr. Marvin Reis Nitrite Ql (U) Negative Normal NEGATIVE [facility] Comment on above: Performed By: #### U RCX #### [facility] [address] [place] [address] Dr. Marvin Reis pH (U) 6.0 [pH] Normal 5-9 [facility] Comment on above: Performed By: #### U RCX #### [facility] [address] [place] [address] Dr. Marvin Reis RBC 2-5 Abnormal 0-2 [facility] Comment on above: Performed By: #### U RCX #### [facility] [address] [place] [address] Dr. Marvin Reis SPEC GRAVITY 1.010 Normal 1.005-<=1.025 [facility] Comment on above: Performed By: #### U RCX #### [facility] [address] [place] [address] Dr. Marvin Reis UA PROTEIN Negative Normal NEGATIVE/ TRACE [facility] Comment on above: Performed By: #### U RCX #### [facility] [address] [place] [address] Dr. Marvin Reis Urobilinogen Qn (U) 0.2 {Robbie'U}/dL Normal 0.2 - 1. 0 [facility] Comment on above: Performed By: #### U RCX #### [facility] [address] [place] [address] Dr. Marvin Reis WBC 50-75 Abnormal NONE SEEN [facility] Comment on above: Performed By: #### U RCX #### [facility] [address] [place] [address] Dr. Marvin Reis CULTURE URINEon 04-18-2022 CULTURE [...] F Oxacillin >=4 R F Normal [facility] Comment on above: Performed By: #### U RCX #### [facility] [address] [address] [address] Marvin Reis UA RANDOM W/MICROSCOPICon BACTERIA TRACE Abnormal NONE SEEN [facility] Comment on above: Performed By: #### U AMIC #### [facility] [address] [place] [address] Dr. Marvin Reis Bilirubin Ql (U) Negative Normal NEGATIVE [facility] Comment on above: Performed By: #### U AMIC #### [facility] [address] [address] [address] Marvin Reis CAST NONE SEEN Normal NONE SEEN [facility] Comment on above: Performed By: #### U AMIC #### [facility] [address] [place] [address] Dr. Marvin Reis Clarity (U) CLEAR Normal CLEAR [facility] Comment on above: Performed By: #### U AMIC #### [facility] [address] [address] [address] Marvin Reis Color (U) LT. YELLOW Normal YELLOW [facility] Comment on above: Performed By: #### U AMIC #### [facility] [address] [address] [address] Marvin Reis Crystals LM Nom (Urine sed) NONE SEEN Normal NONE SEEN [facility] Comment on above: Performed By: #### U AMIC #### [facility] [address] [address] [address] Marvin Reis Epithelial cells LM Ql (Urine sed) FEW Abnormal NONE SEEN /RARE [facility] Comment on above: Performed By: #### U AMIC #### [facility] [address] [address] [address] Marvin Reis Glucose Ql (U) Negative Normal NEGATIVE [facility] Comment on above: Performed By: #### U AMIC #### [facility] [address] [place] [address] Dr. Marvin Reis Hemoglobin Ql (U) TRACE-INTACT Abnormal NEGATIVE [facility] Comment on above: Performed By: #### U AMIC #### [facility] [address] [address] [address] Marvin Reis Ketones Ql (U) Negative Normal NEGATIVE [facility] Comment on above: Performed By: #### U AMIC #### [facility] [address] [address] [address] Marvin Reis LEUKOCYTES SMALL Abnormal NEGATIVE [facility] Comment on above: Performed By: #### U AMIC #### [facility] [address] [address] [address] Marvin Reis MUCOUS NONE SEEN Normal NONE SEEN [facility] Comment on above: Performed By: #### U AMIC #### [facility] [address] [place] [address] Dr. Marvin Reis Nitrite Ql (U) Negative Normal NEGATIVE [facility] Comment on above: Performed By: #### U AMIC #### [facility] [address] [place] [address] Dr. Marvin Reis pH (U) 6.0 [pH] Normal 5-9 [facility] Comment on above: Performed By: #### U AMIC #### [facility] [address] [address] [address] Marvin Reis RBC 0-2 Normal 0-2 [facility] Comment on above: Performed By: #### U AMIC #### [facility] [address] [place] [address] Dr. Marvin Reis SPEC GRAVITY 1.010 Normal 1.005-<=1.025 [facility] Comment on above: Performed By: #### U AMIC #### [facility] [address] [place] [address] Dr. Marvin Reis UA PROTEIN Negative Normal NEGATIVE/ TRACE [facility] Comment on above: Performed By: #### U AMIC #### [facility] [address] [place] [address] Dr. Marvin Reis Urobilinogen Qn (U) 0.2 {Robbie'U}/dL Normal 0.2 - 1. 0 [facility] Comment on above: Performed By: #### U AMIC #### [facility] [address] [address] [address] Marvin Reis WBC 2-5 Abnormal NONE SEEN [facility] Comment on above: Performed By: #### U AMIC #### [facility] [address] [address] [address] Marvin Reis CULTURE URINEon 03-27-2022 CULTURE [...] Trimethoprim/Sulfamet hoxazole >=320 R F Normal [facility] Comment on above: Performed By: #### U RCX #### [facility] [address] [place] [address] Dr. Marvin Reis UA RANDOM W/MICROSCOPICon BACTERIA TRACE Abnormal NONE SEEN [facility] Comment on above: Performed By: #### U RCX #### [facility] [address] [place] [address] Dr. Marvin Reis Bilirubin Ql (U) Negative Normal NEGATIVE [facility] Comment on above: Performed By: #### U RCX #### [facility] [address] [place] [address] Dr. Marvin Reis CAST NONE SEEN Normal NONE SEEN [facility] Comment on above: Performed By: #### U RCX #### [facility] [address] [place] [address] Dr. Marvin Reis Clarity (U) CLEAR Normal CLEAR [facility] Comment on above: Performed By: #### U RCX #### [facility] [address] [address] [address] Marvin Reis Color (U) LT. YELLOW Normal YELLOW [facility] Comment on above: Performed By: #### U RCX #### [facility] [address] [address] [address] Marvin Reis Crystals LM Nom (Urine sed) NONE SEEN Normal NONE SEEN [facility] Comment on above: Performed By: #### U RCX #### [facility] [address] [address] [address] Marvin Reis Epithelial cells LM Ql (Urine sed) FEW Abnormal NONE SEEN /RARE [facility] Comment on above: Performed By: #### U RCX #### [facility] [facility] [address] [place] [address] Dr. Marvin Reis Glucose Ql (U) Negative Normal NEGATIVE [facility] Comment on above: Performed By: #### U RCX #### [facility] [address] [place] [address] Dr. Marvin Reis Hemoglobin Ql (U) SMALL Abnormal NEGATIVE [facility] Comment on above: Performed By: #### U RCX #### [facility] [address] [address] [address] Marvin Reis Ketones Ql (U) Negative Normal NEGATIVE [facility] Comment on above: Performed By: #### U RCX #### [facility] [address] [address] [address] Marvin Reis LEUKOCYTES MODERATE Abnormal NEGATIVE [facility] Comment on above: Performed By: #### U RCX #### [facility] [address] [address] [address] Marvin Reis MUCOUS NONE SEEN Normal NONE SEEN [facility] Comment on above: Performed By: #### U RCX #### [facility] [address] [place] [address] Dr. Marvin Reis Nitrite Ql (U) Negative Normal NEGATIVE [facility] Comment on above: Performed By: #### U RCX #### [facility] [address] [place] [address] Dr. Marvin Reis pH (U) 5.5 [pH] Normal 5-9 [facility] Comment on above: Performed By: #### U RCX #### [facility] [address] [place] [address] Dr. Marvin Reis RBC NONE SEEN Abnormal 0-2 [facility] Comment on above: Performed By: #### U RCX #### [facility] [address] [place] [address] Dr. Marvin Reis SPEC GRAVITY 1.015 Normal 1.005-<=1.025 [facility] Comment on above: Performed By: #### U RCX #### [facility] [address] [place] [address] Dr. Marvin Reis UA PROTEIN Negative Normal NEGATIVE/ TRACE [facility] Comment on above: Performed By: #### U RCX #### [facility] [address] [place] [address] Dr. Marvin Reis Urobilinogen Qn (U) 0.2 {Robbie'U}/dL Normal 0.2 - 1. 0 [facility] Comment on above: Performed By: #### U RCX #### [facility] [address] [place] [address] Dr. Marvin Reis WBC 20-50 Abnormal NONE SEEN [facility] Comment on above: Performed By: #### U RCX #### [facility] [address] [place] [address] Dr. Marvin Reis YEAST PRESENT Abnormal NONE SEEN [facility] Comment on above: Performed By: #### U RCX #### [facility] [address] [place] [address] Dr. Marvin Reis CULTURE URINEon 03-18-2022 CULTURE URINE Culture Observations : No growth Normal [facility] Comment on above: Performed By: #### U RCX #### [facility] [address] [place] [address] Dr. Marvin Reis UA RANDOM W/MICROSCOPICon BACTERIA NONE SEEN Normal NONE SEEN [facility] Comment on above: Performed By: #### U AMIC #### [facility] [address] [address] [address] Marvin Reis Bilirubin Ql (U) Negative Normal NEGATIVE [facility] Comment on above: Performed By: #### U AMIC #### [facility] [address] [address] [address] Marvin Reis CAST NONE SEEN Normal NONE SEEN [facility] Comment on above: Performed By: #### U AMIC #### [facility] [address] [address] [address] Marvin Reis Clarity (U) CLOUDY Abnormal CLEAR [facility] Comment on above: Performed By: #### U AMIC #### [facility] [address] [address] [address] Marvin Reis Color (U) LT. YELLOW Normal YELLOW [facility] Comment on above: Performed By: #### U AMIC #### [facility] [address] [address] [address] Marvin Reis Crystals LM Nom (Urine sed) NONE SEEN Normal NONE SEEN [facility] Comment on above: Performed By: #### U AMIC #### [facility] [address] [address] [address] Marvin Reis Epithelial cells LM Ql (Urine sed) RARE Normal NONE SEEN /RARE [facility] Comment on above: Performed By: #### U AMIC #### [facility] [address] [address] [address] Marvin Reis Glucose Ql (U) Negative Normal NEGATIVE [facility] Comment on above: Performed By: #### U AMIC #### [facility] [address] [address] [address] Marvin Reis Hemoglobin Ql (U) TRACE-INTACT Abnormal NEGATIVE [facility] Comment on above: Performed By: #### U AMIC #### [facility] [address] [address] [address] Marvin Reis Ketones Ql (U) Negative Normal NEGATIVE [facility] Comment on above: Performed By: #### U AMIC #### [facility] [address] [address] [address] Marvin Reis LEUKOCYTES MODERATE Abnormal NEGATIVE [facility] Comment on above: Performed By: #### U AMIC #### [facility] [address] [address] [address] Marvin Reis MUCOUS NONE SEEN Normal NONE SEEN [facility] Comment on above: Performed By: #### U AMIC #### [facility] [address] [address] [address] Marvin Reis Nitrite Ql (U) Negative Normal NEGATIVE [facility] Comment on above: Performed By: #### U AMIC #### [facility] [address] [place] [address] Dr. Marvin Reis pH (U) 6.0 [pH] Normal 5-9 [facility] Comment on above: Performed By: #### U AMIC #### [facility] [address] [place] [address] Dr. Marvin Reis RBC NONE SEEN Abnormal 0-2 [facility] Comment on above: Performed By: #### U AMIC #### [facility] [address] [place] [address] Dr. Marvin Reis SPEC GRAVITY 1.015 Normal 1.005-<=1.025 [facility] Comment on above: Performed By: #### U AMIC #### [facility] [address] [place] [address] Dr. Marvin Reis UA PROTEIN Negative Normal NEGATIVE/ TRACE [facility] Comment on above: Performed By: #### U AMIC #### [facility] [address] [place] [address] Dr. Marvin Reis Urobilinogen Qn (U) 0.2 {Robbie'U}/dL Normal 0.2 - 1. 0 [facility] Comment on above: Performed By: #### U AMIC #### [facility] [address] [place] [address] Dr. Marvin Reis WBC 10-20 Abnormal NONE SEEN [facility] Comment on above: Performed By: #### U AMIC #### [facility] [address] [place] [address] Dr. Marvin Reis Coding Summary.on 06-21-2020 Coding Summary. CODING DATE: 06/21/2020 FINAL [facility] STATUS: PAYOR: Worker's Compensation ADMIT DX: [...] Hopper CphT Date Saved: 06/21/2020 12:01 pm [facility] PT - Assessmentson 0 PT - Assessments [id number]# 1.00CD:127 [facility] PT - Orderson 06-20-2020 PT - Orders [id number]# 1.00CD:127 [facility] PT - Workers Compon 06-20-20 20 PT - Workers Comp [id number]# 1.00CD:127 [facility] Encounters Encounter Date Encounter Type Care Provider Facility Start: 03-10-2023 End: 03-11-2023 ambulatory RACHEL [facility] Start: 03-03-2023 End: 03-03-[address] LAWANDA [...] Facility:[facility] Payers Date Payer Category Payer Medicare [id number] 1961 Unknown [id number] 1960 Unknown [id number] 2.16.84 0.1.113222.3.579.2.593 1960 Unknown [id number] 2.16.84 0.1.215690.3.579.2.593 1958 Unknown [id number] 2.16.84 0.1.770237.3.579.2.593 1958 Unknown [id number] 2.16.84 0.1.688897.3.579.2.593 1958 Unknown [id number] 2.16.84 0.1.092235.3.579.2.593 1958 Unknown [id number] 2.16.84 0.1.931219.3.579.2.593 1958 Unknown [id number] 2.16.84 0.1.703544.3.579.2.593 1958 Unknown [id number] 2.16.84 0.1.340305.3.579.2.593 1958 Unknown [id number] 2.16.84 0.1.964732.3.579.2.593 1958 Unknown [id number] 2.16.84 0.1.941495.3.579.2.593 1958 Unknown [id number] 2.16.84 0.1.650614.3.579.2.593 1958 Unknown [id number] 2.16.84 0.1.949792.3.579.2.593 1958 Unknown [id number] 2.16.84 0.1.754080.3.579.2.593 1958 Unknown [id number] 2.16.84 0.1.139062.3.579.2.593 1958 Unknown [id number] 2.16.84 0.1.959416.3.579.2.593 1958 Unknown [id number] 2.16.84 0.1.816406.3.579.2.593 1958 Unknown [id number] 2.16.84 0.1.293869.3.579.2.593 1958 Unknown [id number] 2.16.84 0.1.110998.3.579.2.593 1958 Unknown [id number] 2.16.84 0.1.509909.3.579.2.593 Summary Purpose Family History No Family History [...] section and content) DATE CREATED AUTHOR 09/19/2020 [facility] DATE CREATED AUTHOR AUTHOR'S ORGANIZ ATION 03/06/2023 [facility] DATE CREATED AUTHOR AUTHOR'S ORGANIZ ATION 03/11/2023 [facility] DATE CREATED AUTHOR AUTHOR'S ORGANIZ ATION 06/07/2023 [facility] FOR RECORDS PERTAINING TO PATIENTS WHO [...] BE BASED ON THE PRIMARY CLINICAL RECORDS. [employer] provides no warranty or guarantee of the accuracy or completeness of information in this document.
[2023-11-25 15:08] LABS: Bilirubin Urine NEGATIVE (NEGATIVE); Blood Urine TRACE-I (NEGATIVE); Clarity Urine SL CLOUDY (CLEAR); Color Urine LT. YELLOW (YELLOW); Glucose Urine UA NEGATIVE (NEGATIVE); Ketones Urine NEGATIVE (NEGATIVE); Leukocyte Esterase Urine MODERATE (NEGATIVE); Nitrite Urine NEGATIVE (NEGATIVE); Protein Urine NEGATIVE (NEG/TRACE); Specific Gravity Urine 1.015 (1.005-1.025); Urobilinogen Urine 0.2 EU/dL (0.2-1.0)
[2023-11-25 15:36] LABS: WBC Urine 50-75 #/HPF (NONE SEEN)
[2023-11-25 15:37] LABS: Bacteria Urine SMALL #/HPF (NONE SEEN); Cast Seen? NONE SEEN #/LPF (NONE SEEN); Crystals Seen? None Seen #/HPF (None Seen); Mucus Urine NONE SEEN (NONE SEEN); Squamous Epithelial Cell Urine FEW #/LPF (NONE/RARE)
== END 2023-11-25 14:54 | disposition home or self-care (01) ==
LOC: LAB 14:53
PROVIDERS: PCP Family Medicine; Visit Provider Family Medicine
DX: N31.9 Neuromuscular dysfunction of bladder, unspecified (principal)
CPT/HCPCS: 81001; 87086

== ENCOUNTER 2023-12-01 14:16 | Outpatient (OUT) | payer OTHER, SELFPAY ==
--- OUTSIDE RECORDS SUMMARY | 2023-12-01 14:21 | XMS_ITS | CCD ---
Author Name Unknown Address [address] [place] [address] Organization [facility] Care Team Providers Care Explosives Operator Name Role Phone HOY ., DR WEBBER [...] source) ceFAZolin Drug Allergy 04-21-20 13 [facility] Repository (1 source) Cilastatin / Imipenem Drug Allergy 04-21-20 13 [facility] Rep[facility] (1 source) Readi-Cat Drug allergy (disorder) 04-21-20 13 [facility] Repository (1 source) ceFAZolin; Translations: [CEFAZOLIN] Drug Allergy 12-01-19 13 [facility] Repository (1 source) Cephalexin; Translations: [CEPHALEXIN MONOHYDRATE] Drug Allergy 08-03-20 09 [facility] Repository (1 source) Promazine; Translations: [PROMAZINE] Drug Allergy 12-01-19 13 [facility] Repository (1 source) Sulfamethoxazole / Trimethoprim; Translations: [SULFAMETHOXAZOLE-TR IMETHOPRIM] Drug Allergy 03-10-20 23 [facility] Repository (1 source) IODINATED CONTRAST MEDIA; Translations: [IODINATED CONTRAST MEDIA] Propensity to adverse reactions to drug (disorder) 12-01-19 13 [facility] Repository Problems Active Problems Problem Classification [...] RESISTANT TO ALL B-LACTAM DRUGS. PERFORMED BY: [place] [address] PATHOLOGIST DOCTOR CHIROPRACTIC MARLA VEGA M.D. [facility] Comment on above: Performed By: #### A MAI LAYNE #### [address] Gram Stainon 06-03-2023 Microscopic observation Gram stain Nom (Unsp spec) Gram Stain Result No Bacteria Seen PERFORMED BY: [place] [address] PATHOLOGIST DOCTOR CHIROPRACTIC MARLA VEGA M.D. [facility] Comment on above: Performed By: #### A MAI LAYNE #### [address] [place] [address] [facility] CULTURE URINEon 03-06-2023 CULTURE URINE Isolate 1 [...] F Levofloxacin 2 S F Normal [facility] Comment on above: Performed By: #### U RCX #### [facility] [address] [place] [address] Dr. Marvin Reis UA RANDOM W/MICROSCOPICon BACTERIA SMALL Abnormal NONE SEEN [facility] Comment on above: Performed By: #### U AMIC #### [facility] [address] [place] [address] Dr. Marvin Reis Bilirubin Ql (U) Negative Normal NEGATIVE [facility] Comment on above: Performed By: #### U AMIC #### [facility] [address] [place] [address] Dr. Marvin Reis CAST NONE SEEN Normal NONE SEEN [facility] Comment on above: Performed By: #### U AMIC #### [facility] [address] [place] [address] Dr. Marvin Reis Clarity (U) CLEAR Normal CLEAR [facility] Comment on above: Performed By: #### U AMIC #### [facility] [address] [place] [address] Dr. Marvin Reis Color (U) LT. YELLOW Normal YELLOW [facility] Comment on above: Performed By: #### U AMIC #### [facility] [address] [address] [address] Marvin Reis Crystals LM Nom (Urine sed) NONE SEEN Normal NONE SEEN [facility] Comment on above: Performed By: #### U AMIC #### [facility] [address] [address] [address] Marvin Reis Epithelial cells LM Ql (Urine sed) RARE Normal NONE SEEN /RARE [facility] Comment on above: Performed By: #### U AMIC #### [facility] [address] [address] [address] Marvin Reis Glucose Ql (U) Negative Normal NEGATIVE [facility] Comment on above: Performed By: #### U AMIC #### [facility] [address] [address] [address] Marvin Reis Hemoglobin Ql (U) Negative Normal NEGATIVE The [facility] Comment on above: Performed By: #### U AMIC #### [facility] [address] [address] [address] Marvin Reis Ketones Ql (U) Negative Normal NEGATIVE [facility] Comment on above: Performed By: #### U AMIC #### [facility] [address] [address] [address] Marvin Reis LEUKOCYTES SMALL Abnormal NEGATIVE [facility] Comment on above: Performed By: #### U AMIC #### [facility] [address] [address] [address] Marvin Reis MUCOUS NONE SEEN Normal NONE SEEN [facility] Comment on above: Performed By: #### U AMIC #### [facility] [address] [address] [address] Marvin Reis Nitrite Ql (U) Negative Normal NEGATIVE [facility] Comment on above: Performed By: #### U AMIC #### [facility] [address] [address] [address] Marvin Reis pH (U) 6.0 [pH] Normal 5-9 [facility] Comment on above: Performed By: #### U AMIC #### [facility] [address] [place] [address] Dr. Marvin Reis RBC 0-2 Normal 0-2 [facility] Comment on above: Performed By: #### U AMIC #### [facility] [address] [place] [address] Dr. Marvin Reis SPEC GRAVITY 1.010 Normal 1.005-<=1.[address] [facility] Comment on above: Performed By: #### U AMIC #### [facility] [address] [place] [address] Dr. Marvin Reis UA PROTEIN Negative Normal NEGATIVE/ TRACE [facility] Comment on above: Performed By: #### U AMIC #### [facility] [address] [place] [address] Dr. Marvin Reis Urobilinogen Qn (U) 0.2 {Robbie'U}/dL Normal 0.2 - 1. 0 [facility] Comment on above: Performed By: #### U AMIC #### [facility] [address] [place] [address] Dr. Marvin Reis WBC 5-10 Abnormal NONE SEEN [facility] Comment on above: Performed By: #### U AMIC #### [facility] [address] [place] [address] Dr. Marvin Reis CULTURE URINEon 02-13-2023 CULTURE [...] F Levofloxacin 2 S F Normal [facility] Comment on above: Performed By: #### U RCX #### [facility] [address] [place] [address] Dr. Marvin Reis UA RANDOM W/MICROSCOPICon BACTERIA MODERATE Abnormal NONE SEEN [facility] Comment on above: Performed By: #### U AMIC #### [facility] [address] [place] [address] Dr. Marvin Reis Bilirubin Ql (U) Negative Normal NEGATIVE [facility] Comment on above: Performed By: #### U AMIC #### [facility] [address] [place] [address] Dr. Marvin Reis CAST NONE SEEN Normal NONE SEEN [facility] Comment on above: Performed By: #### U AMIC #### [facility] [address] [place] [address] Dr. Marvin Reis Clarity (U) CLEAR Normal CLEAR [facility] Comment on above: Performed By: #### U AMIC #### [facility] [address] [place] [address] Dr. Marvin Reis Color (U) LT. YELLOW Normal YELLOW [facility] Comment on above: Performed By: #### U AMIC #### [facility] [address] [place] [address] Dr. Marvin Reis Crystals LM Nom (Urine sed) NONE SEEN Normal NONE SEEN [facility] Comment on above: Performed By: #### U AMIC #### [facility] [address] [place] [address] Dr. Marvin Reis Epithelial cells LM Ql (Urine sed) MODERATE Abnormal NONE SEEN /RARE [facility] Comment on above: Performed By: #### U AMIC #### [facility] [address] [place] [address] Dr. Marvin Reis Glucose Ql (U) Negative Normal NEGATIVE [facility] Comment on above: Performed By: #### U AMIC #### [facility] [address] [address] [address] Marvin Reis Hemoglobin Ql (U) SMALL Abnormal NEGATIVE [facility] Comment on above: Performed By: #### U AMIC #### [facility] [address] [address] [address] Marvin Reis Ketones Ql (U) Negative Normal NEGATIVE [facility] Comment on above: Performed By: #### U AMIC #### [facility] [address] [place] [address] Dr. Marvin Reis LEUKOCYTES LARGE Abnormal NEGATIVE [facility] Comment on above: Performed By: #### U AMIC #### [facility] [address] [place] [address] Dr. Marvin Reis MUCOUS NONE SEEN Normal NONE SEEN [facility] Comment on above: Performed By: #### U AMIC #### [facility] [address] [place] [address] Dr. Marvin Reis Nitrite Ql (U) Positive Abnormal NEGATIVE [facility] Comment on above: Performed By: #### U AMIC #### [facility] [address] [place] [address] Dr. Marvin Reis pH (U) 5.5 [pH] Normal 5-9 [facility] Comment on above: Performed By: #### U AMIC #### [facility] [address] [place] [address] Dr. Marvin Reis RBC 5-10 Abnormal 0-2 [facility] Comment on above: Performed By: #### U AMIC #### [facility] [address] [place] [address] Dr. Marvin Reis SPEC GRAVITY 1.015 Normal 1.005-<=1.[address] [facility] Comment on above: Performed By: #### U AMIC #### [facility] [address] [place] [address] Dr. aMrvin Reis UA PROTEIN Negative Normal NEGATIVE/ TRACE [facility] Comment on above: Performed By: #### U AMIC #### [facility] [address] [place] [address] Dr. Marvin Reis Urobilinogen Qn (U) 0.2 {Robbie'U}/dL Normal 0.2 - 1. 0 [facility] Comment on above: Performed By: #### U AMIC #### [facility] [address] [place] [address] Dr. Marvin Reis WBC 50-75 Abnormal NONE SEEN [facility] Comment on above: Performed By: #### U AMIC #### [facility] [address] [place] [address] Dr. Marvin Reis CULTURE URINEon 01-23-2023 CULTURE [...] Trimethoprim/Sulfamet hoxazole <=10 S F Normal [facility] Comment on above: Performed By: #### U AMIC #### [facility] [address] [place] [address] Dr. Marvin Reis UA RANDOM W/MICROSCOPICon BACTERIA TRACE Abnormal NONE SEEN [facility] Comment on above: Performed By: #### U AMIC #### [facility] [address] [address] [address] Marvin Reis Bilirubin Ql (U) Negative Normal NEGATIVE [facility] Comment on above: Performed By: #### U AMIC #### [facility] [address] [address] [address] Marvin Reis CAST NONE SEEN Normal NONE SEEN [facility] Comment on above: Performed By: #### U AMIC #### [facility] [address] [address] [address] Marvin Reis Clarity (U) SL CLOUDY Abnormal CLEAR [facility] Comment on above: Performed By: #### U AMIC #### [facility] [address] [address] [address] Marvin Reis Color (U) LT. YELLOW Normal YELLOW [facility] Comment on above: Performed By: #### U AMIC #### [facility] [address] [place] [address] Dr. Marvin Reis Crystals LM Nom (Urine sed) NONE SEEN Normal NONE SEEN [facility] Comment on above: Performed By: #### U AMIC #### [facility] [address] [place] [address] Dr. Marvin Reis Epithelial cells LM Ql (Urine sed) NONE SEEN Normal NONE SEEN /RARE [facility] Comment on above: Performed By: #### U AMIC #### [facility] [address] [place] [address] Dr. Marvin Reis Glucose Ql (U) Negative Normal NEGATIVE [facility] Comment on above: Performed By: #### U AMIC #### [facility] [address] [place] [address] Dr. Marvin Reis Hemoglobin Ql (U) Negative Normal NEGATIVE [facility] Comment on above: Performed By: #### U AMIC #### [facility] [address] [place] [address] Dr. Marvin Reis Ketones Ql (U) Negative Normal NEGATIVE [facility] Comment on above: Performed By: #### U AMIC #### [facility] [address] [place] [address] Dr. Marvin Reis LEUKOCYTES TRACE Abnormal NEGATIVE [facility] Comment on above: Performed By: #### U AMIC #### [facility] [address] [address] [address] Marvin Reis MUCOUS NONE SEEN Normal NONE SEEN [facility] Comment on above: Performed By: #### U AMIC #### [facility] [address] [address] [address] Marvin Reis Nitrite Ql (U) Negative Normal NEGATIVE [facility] Comment on above: Performed By: #### U AMIC #### [facility] [address] [place] [address] Dr. Marvin Reis pH (U) 6.0 [pH] Normal 5-9 [facility] Comment on above: Performed By: #### U AMIC #### [facility] [address] [place] [address] Dr. Marvin Reis RBC NONE SEEN Abnormal 0-2 [facility] Comment on above: Performed By: #### U AMIC #### [facility] [address] [place] [address] Dr. Marvin Reis SPEC GRAVITY 1.020 Normal 1.005-<=1.[address] [facility] Comment on above: Performed By: #### U AMIC #### [facility] [address] [place] [address] Dr. Marvin Resi UA PROTEIN Negative Normal NEGATIVE/ TRACE [facility] Comment on above: Performed By: #### U AMIC #### [facility] [address] [place] [address] Dr. Marvin Reis Urobilinogen Qn (U) 0.2 {Robbie'U}/dL Normal 0.2 - 1. 0 [facility] Comment on above: Performed By: #### U AMIC #### [facility] [address] [place] [address] Dr. Marvin Reis WBC 10-20 Abnormal NONE SEEN [facility] Comment on above: Performed By: #### U AMIC #### [facility] [address] [place] [address] Dr. Marvin Reis CULTURE URINEon 01-07-2023 CULTURE URINE Isolate 1 Dawna albicans 10,000 cfu/mL of Normal [facility] Comment on above: Performed By: #### U RCX #### [facility] [address] [place] [address] Dr. Marvin Reis UA RANDOM W/MICROSCOPICon BACTERIA TRACE Abnormal NONE SEEN [facility] Comment on above: Performed By: #### U AMIC #### [facility] [address] [place] [address] Dr. Marvin Reis Bilirubin Ql (U) Negative Normal NEGATIVE [facility] Comment on above: Performed By: #### U AMIC #### [facility] [address] [place] [address] Dr. Marvin Reis CA OX CRYSTALS RARE Normal [facility] Comment on above: Performed By: #### U AMIC #### [facility] [address] [place] [address] Dr. Marvin Reis CAST NONE SEEN Normal NONE SEEN [facility] Comment on above: Performed By: #### U AMIC #### [facility] [address] [place] [address] Dr. Marvin Reis Clarity (U) CLEAR Normal CLEAR [facility] Comment on above: Performed By: #### U AMIC #### [facility] [address] [place] [address] Dr. Marvin Reis Color (U) LT. YELLOW Normal YELLOW [facility] Comment on above: Performed By: #### U AMIC #### [facility] [address] [place] [address] Dr. Marvin Reis Crystals LM Nom (Urine sed) SEEN Abnormal NONE SEEN [facility] Comment on above: Performed By: #### U AMIC #### [facility] [address] [place] [address] Dr. Marvin Reis Epithelial cells LM Ql (Urine sed) FEW Abnormal NONE SEEN /RARE [facility] Comment on above: Performed By: #### U AMIC #### [facility] [address] [place] [address] Dr. Marvin Reis Glucose Ql (U) Negative Normal NEGATIVE [facility] Comment on above: Performed By: #### U AMIC #### [facility] [address] [address] [address] Marvin Reis Hemoglobin Ql (U) Negative Normal NEGATIVE [facility] Comment on above: Performed By: #### U AMIC #### [facility] [address] [address] [address] Marvin Reis Ketones Ql (U) Negative Normal NEGATIVE [facility] Comment on above: Performed By: #### U AMIC #### [facility] [address] [address] [address] Marvin Reis LEUKOCYTES SMALL Abnormal NEGATIVE [facility] Comment on above: Performed By: #### U AMIC #### [facility] [address] [address] [address] Marvin Reis MUCOUS NONE SEEN Normal NONE SEEN [facility] Comment on above: Performed By: #### U AMIC #### [facility] [address] [address] [address] Marvin Reis Nitrite Ql (U) Negative Normal NEGATIVE [facility] Comment on above: Performed By: #### U AMIC #### [facility] [address] [address] [address] Marvin Reis pH (U) 5.5 [pH] Normal 5-9 [facility] Comment on above: Performed By: #### U AMIC #### [facility] [address] [address] [address] Marvin Reis RBC 0-2 Normal 0-2 [facility] Comment on above: Performed By: #### U AMIC #### [facility] [address] [address] [address] Marvin Reis SPEC GRAVITY 1.015 Normal 1.005-<=1.025 [facility] Comment on above: Performed By: #### U AMIC #### [facility] [address] [address] [address] Marvin Reis UA PROTEIN Negative Normal NEGATIVE/ TRACE [facility] Comment on above: Performed By: #### U AMIC #### [facility] [address] [address] [address] Marvin Reis Urobilinogen Qn (U) 0.2 {Robbie'U}/dL Normal 0.2 - 1. 0 [facility] Comment on above: Performed By: #### U AMIC #### [facility] [address] [place] [address] Dr. Marvin Reis WBC 50-75 Abnormal NONE SEEN [facility] Comment on above: Performed By: #### U AMIC #### [facility] [address] [place] [address] Dr. Marvin Reis YEAST PRESENT Abnormal NONE SEEN [facility] Comment on above: Performed By: #### U AMIC #### [facility] [address] [place] [address] Dr. Marvin Reis CULTURE URINEon 12-25-2022 CULTURE [...] Trimethoprim/Sulfamet hoxazole >=320 R F Normal [facility] Comment on above: Performed By: #### U RCX #### [facility] [address] [place] [address] Dr. Marvin Reis UA RANDOM W/MICROSCOPICon BACTERIA NONE SEEN Normal NONE SEEN [facility] Comment on above: Performed By: #### U AMIC #### [facility] [address] [place] [address] Dr. Marvin Reis Bilirubin Ql (U) Negative Normal NEGATIVE [facility] Comment on above: Performed By: #### U AMIC #### [facility] [address] [address] [address] Marvin Reis CAST NONE SEEN Normal NONE SEEN [facility] Comment on above: Performed By: #### U AMIC #### [facility] [address] [address] [address] Marvin Reis Clarity (U) CLEAR Normal CLEAR [facility] Comment on above: Performed By: #### U AMIC #### [facility] [address] [address] [address] Marvin Reis Color (U) LT. YELLOW Normal YELLOW [facility] Comment on above: Performed By: #### U AMIC #### [facility] [address] [address] [address] Marvin Reis Crystals LM Nom (Urine sed) NONE SEEN Normal NONE SEEN [facility] Comment on above: Performed By: #### U AMIC #### [facility] [address] [place] [address] Dr. Marvin Reis Epithelial cells LM Ql (Urine sed) RARE Normal NONE SEEN /RARE [facility] Comment on above: Performed By: #### U AMIC #### [facility] [address] [address] [address] Marvin Reis Glucose Ql (U) Negative Normal NEGATIVE [facility] Comment on above: Performed By: #### U AMIC #### [facility] [address] [place] [address] Dr. Marvin Reis Hemoglobin Ql (U) Negative Normal NEGATIVE [facility] Comment on above: Performed By: #### U AMIC #### [facility] [address] [address] [address] Marvin Reis Ketones Ql (U) Negative Normal NEGATIVE [facility] Comment on above: Performed By: #### U AMIC #### [facility] [address] [address] [address] Marvin Reis LEUKOCYTES MODERATE Abnormal NEGATIVE [facility] Comment on above: Performed By: #### U AMIC #### [facility] [address] [place] [address] Dr. Marvin Reis MUCOUS NONE SEEN Normal NONE SEEN [facility] Comment on above: Performed By: #### U AMIC #### [facility] [address] [address] [address] Marvin Reis Nitrite Ql (U) Negative Normal NEGATIVE [facility] Comment on above: Performed By: #### U AMIC #### [facility] [address] [place] [address] Dr. Marvin Reis pH (U) 5.5 [pH] Normal 5-9 [facility] Comment on above: Performed By: #### U AMIC #### [facility] [address] [place] [address] Dr. Marvin Reis RBC NONE SEEN Abnormal 0-2 [facility] Comment on above: Performed By: #### U AMIC #### [facility] [address] [place] [address] Dr. Marvin Reis SPEC GRAVITY 1.015 Normal 1.005-<=1.[address] [facility] Comment on above: Performed By: #### U AMIC #### [facility] [address] [place] [address] Dr. Marvin Reis UA PROTEIN Negative Normal NEGATIVE/ TRACE [facility] Comment on above: Performed By: #### U AMIC #### [facility] [address] [place] [address] Dr. Marvin Reis Urobilinogen Qn (U) 0.2 {Robbie'U}/dL Normal 0.2 - 1. 0 [facility] Comment on above: Performed By: #### U AMIC #### [facility] [address] [place] [address] Dr. Marvin Reis WBC 10-20 Abnormal NONE SEEN [facility] Comment on above: Performed By: #### U AMIC #### [facility] [address] [place] [address] Dr. Marvin Reis CULTURE URINEon 12-05-2022 CULTURE [...] Trimethoprim/Sulfamet hoxazole <=20 S F Normal [facility] Comment on above: Performed By: #### U RCX #### [facility] [address] [place] [address] Dr. Marvin Reis CREATININEon 12-03-2022 Creatinine [Mass/Vol] 0.88 mg/dL Normal 0.70-1.30 [facility] Comment on above: Performed By: #### U RCX #### [facility] [address] [place] [address] Dr. Marvin Reis EGFR-AF IRAQI >60 Normal >=60 [facility] Comment on above: Performed By: #### U RCX #### [facility] [address] [place] [address] Dr. Marvin Reis EGFR-NON AF IRAQI >60 Normal >=60 [facility] Comment on above: Performed By: #### U RCX #### [facility] [address] [place] [address] ABDOMEN WO/W CONon [...] ELENO PARKER Date: 2022-12-03 14:51 Normal [facility] UA RANDOM W/MICROSCOPICon BACTERIA TRACE Abnormal NONE SEEN [facility] Comment on above: Performed By: #### U RCX #### [facility] [address] [place] [address] Dr. Marvin Reis Bilirubin Ql (U) Negative Normal NEGATIVE [facility] Comment on above: Performed By: #### U RCX #### [facility] [address] [place] [address] Dr. Marvin Reis CAST NONE SEEN Normal NONE SEEN [facility] Comment on above: Performed By: #### U RCX #### [facility] [address] [place] [address] Dr. Marvin Reis Clarity (U) CLEAR Normal CLEAR [facility] Comment on above: Performed By: #### U RCX #### [facility] [address] [place] [address] Dr. Marvin Reis Color (U) LT. YELLOW Normal YELLOW [facility] Comment on above: Performed By: #### U RCX #### [facility] [address] [place] [address] Dr. Marvni Reis Crystals LM Nom (Urine sed) NONE SEEN Normal NONE SEEN [facility] Comment on above: Performed By: #### U RCX #### [facility] [address] [place] [address] Dr. Marvin Reis Epithelial cells LM Ql (Urine sed) RARE Normal NONE SEEN /RARE [facility] Comment on above: Performed By: #### U RCX #### [facility] [address] [place] [address] Dr. Marvin Reis Glucose Ql (U) Negative Normal NEGATIVE [facility] Comment on above: Performed By: #### U RCX #### [facility] [address] [place] [address] Dr. Marvin Reis Hemoglobin Ql (U) TRACE-INTACT Abnormal NEGATIVE [facility] Comment on above: Performed By: #### U RCX #### [facility] [address] [place] [address] Dr. Marvin Reis Ketones Ql (U) Negative Normal NEGATIVE [facility] Comment on above: Performed By: #### U RCX #### [facility] [address] [place] [address] Dr. Marvin Reis LEUKOCYTES TRACE Abnormal NEGATIVE [facility] Comment on above: Performed By: #### U RCX #### [facility] [address] [place] [address] Dr. Marvin Reis MUCOUS TRACE Abnormal NONE SEEN [facility] Comment on above: Performed By: #### U RCX #### [facility] [address] [place] [address] Dr. Marvin Reis Nitrite Ql (U) Negative Normal NEGATIVE [facility] Comment on above: Performed By: #### U RCX #### [facility] [address] [place] [address] Dr. Marvin Reis pH (U) 5.0 [pH] Normal 5-9 [facility] Comment on above: Performed By: #### U RCX #### [facility] [address] [place] [address] Dr. Marvin Reis RBC 0-2 Normal 0-2 [facility] Comment on above: Performed By: #### U RCX #### [facility] [address] [place] [address] Dr. Marvin Reis SPEC GRAVITY 1.010 Normal 1.005-<=1.[address] [facility] Comment on above: Performed By: #### U RCX #### [facility] [address] [address] [address] Marvin Reis UA PROTEIN TRACE Normal NEGATIVE/ TRACE [facility] Comment on above: Performed By: #### U RCX #### [facility] [address] [address] [address] Marvin Reis Urobilinogen Qn (U) 0.2 {Robbie'U}/dL Normal 0.2 - 1. 0 [facility] Comment on above: Performed By: #### U RCX #### [facility] [address] [address] [address] Marvin Reis WBC 2-5 Abnormal NONE SEEN [facility] Comment on above: Performed By: #### U RCX #### [facility] [address] ABD/PELVIS WO CONon [...] MAGY COMER Date: 2022-11-20 14:51 Normal [facility] CULTURE URINEon 11-11-2022 CULTURE URINE Culture Observations : GUSTABO TO FOLLOW. Isolate 1 Enterobacter aerogenes >100,000 cfu/mL of Normal [facility] Comment on above: Performed By: #### U RCX #### [facility] [address] [place] [address] Dr. Marvin Reis UA RANDOM W/MICROSCOPICon BACTERIA SMALL Abnormal NONE SEEN [facility] Comment on above: Performed By: #### U AMIC #### [facility] [address] [place] [address] Dr. Marvin Reis Bilirubin Ql (U) Negative Normal NEGATIVE [facility] Comment on above: Performed By: #### U AMIC #### [facility] [address] [place] [address] Dr. Marvin Reis CAST NONE SEEN Normal NONE SEEN [facility] Comment on above: Performed By: #### U AMIC #### [facility] [address] [place] [address] Dr. Marvin Reis Clarity (U) CLOUDY Abnormal CLEAR [facility] Comment on above: Performed By: #### U AMIC #### [facility] [address] [place] [address] Dr. Marvin Reis Color (U) LT. YELLOW Normal YELLOW [facility] Comment on above: Performed By: #### U AMIC #### [facility] [address] [address] [address] Marvin Reis Crystals LM Nom (Urine sed) NONE SEEN Normal NONE SEEN [facility] Comment on above: Performed By: #### U AMIC #### [facility] [address] [address] [address] Marvin Reis Epithelial cells LM Ql (Urine sed) NONE SEEN Normal NONE SEEN /RARE [facility] Comment on above: Performed By: #### U AMIC #### [facility] [address] [address] [address] Marvin Reis Glucose Ql (U) Negative Normal NEGATIVE [facility] Comment on above: Performed By: #### U AMIC #### [facility] [address] [address] [address] Marvin Reis Hemoglobin Ql (U) TRACE-INTACT Abnormal NEGATIVE [facility] Comment on above: Performed By: #### U AMIC #### [facility] [address] [address] [address] Marvin Reis Ketones Ql (U) Negative Normal NEGATIVE [facility] Comment on above: Performed By: #### U AMIC #### [facility] [address] [address] [address] Marvin Reis LEUKOCYTES LARGE Abnormal NEGATIVE [facility] Comment on above: Performed By: #### U AMIC #### [facility] [address] [address] [address] Marvin Reis MUCOUS NONE SEEN Normal NONE SEEN [facility] Comment on above: Performed By: #### U AMIC #### [facility] [address] [address] [address] Marvin Reis Nitrite Ql (U) Positive Abnormal NEGATIVE [facility] Comment on above: Performed By: #### U AMIC #### [facility] [address] [address] [address] Marvin Reis pH (U) 5.5 [pH] Normal 5-9 [facility] Comment on above: Performed By: #### U AMIC #### [facility] [address] [address] [address] Marvin Reis RBC 0-2 Normal 0-2 [facility] Comment on above: Performed By: #### U AMIC #### [facility] [address] [address] [address] Marvin Reis SPEC GRAVITY 1.015 Normal 1.005-<=1.[address] [facility] Comment on above: Performed By: #### U AMIC #### [facility] [address] [place] [address] Dr. Marvin Reis UA PROTEIN Negative Normal NEGATIVE/ TRACE [facility] Comment on above: Performed By: #### U AMIC #### [facility] [address] [place] [address] Dr. Marvin Reis Urobilinogen Qn (U) 0.2 {Robbie'U}/dL Normal 0.2 - 1. 0 [facility] Comment on above: Performed By: #### U AMIC #### [facility] [address] [place] [address] Dr. Marvin Reis WBC 10-20 Abnormal NONE SEEN [facility] Comment on above: Performed By: #### U AMIC #### [facility] [address] [place] [address] Dr. Marvin Reis CULTURE URINEon 10-24-2022 CULTURE [...] Trimethoprim/Sulfamet hoxazole <=20 S F Normal [facility] Comment on above: Performed By: #### U RCX #### [facility] [address] [place] [address] Dr. Marvin Reis UA RANDOM W/MICROSCOPICon BACTERIA LARGE Abnormal NONE SEEN [facility] Comment on above: Performed By: #### U AMIC #### [facility] [address] [place] [address] Dr. Marvin Reis Bilirubin Ql (U) Negative Normal NEGATIVE [facility] Comment on above: Performed By: #### U AMIC #### [facility] [address] [address] [address] Marvin Reis CAST NONE SEEN Normal NONE SEEN [facility] Comment on above: Performed By: #### U AMIC #### [facility] [address] [address] [address] Marvin Reis Clarity (U) SL CLOUDY Abnormal CLEAR [facility] Comment on above: Performed By: #### U AMIC #### [facility] [address] [place] [address] Dr. Marvin Reis Color (U) YELLOW Normal YELLOW [facility] Comment on above: Performed By: #### U AMIC #### [facility] [address] [place] [address] Dr. Marvin Reis Crystals LM Nom (Urine sed) NONE SEEN Normal NONE SEEN [facility] Comment on above: Performed By: #### U AMIC #### [facility] [address] [place] [address] Dr. Marvin Reis Epithelial cells LM Ql (Urine sed) FEW Abnormal NONE SEEN /RARE [facility] Comment on above: Performed By: #### U AMIC #### [facility] [address] [address] [address] Marvin Reis Glucose Ql (U) Negative Normal NEGATIVE [facility] Comment on above: Performed By: #### U AMIC #### [facility] [address] [place] [address] Dr. Marvin Reis Hemoglobin Ql (U) TRACE-INTACT Abnormal NEGATIVE [facility] Comment on above: Performed By: #### U AMIC #### [facility] [address] [place] [address] Dr. Marvin Reis Ketones Ql (U) Negative Normal NEGATIVE [facility] Comment on above: Performed By: #### U AMIC #### [facility] [address] [address] [address] Marvin Reis LEUKOCYTES LARGE Abnormal NEGATIVE [facility] Comment on above: Performed By: #### U AMIC #### [facility] [address] [address] [address] Marvin Reis MUCOUS NONE SEEN Normal NONE SEEN [facility] Comment on above: Performed By: #### U AMIC #### [facility] [address] [address] [address] Marvin Reis Nitrite Ql (U) Negative Normal NEGATIVE [facility] Comment on above: Performed By: #### U AMIC #### [facility] [address] [place] [address] Dr. Marvin Reis pH (U) 5.0 [pH] Normal 5-9 [facility] Comment on above: Performed By: #### U AMIC #### [facility] [address] [address] [address] Marvin Reis RBC 5-10 Abnormal 0-2 [facility] Comment on above: Performed By: #### U AMIC #### [facility] [address] [place] [address] Dr. Marvin Ries SPEC GRAVITY 1.010 Normal 1.005-<=1.025 [facility] Comment on above: Performed By: #### U AMIC #### [facility] [address] [place] [address] Dr. Marvin Resi UA PROTEIN Negative Normal NEGATIVE/ TRACE [facility] Comment on above: Performed By: #### U AMIC #### [facility] [address] [place] [address] Dr. Marvin Reis Urobilinogen Qn (U) 0.2 {Robbie'U}/dL Normal 0.2 - 1. 0 [facility] Comment on above: Performed By: #### U AMIC #### [facility] [address] [place] [address] Dr. Marvin Reis WBC 50-75 Abnormal NONE SEEN [facility] Comment on above: Performed By: #### U AMIC #### [facility] [address] [address] [address] Marvin Reis CULTURE URINEon 10-01-2022 CULTURE URINE Culture Observations : NO GROWTH. Normal [facility] Comment on above: Performed By: #### U AMIC #### [facility] [address] [address] [address] Marvin Reis UA RANDOM W/MICROSCOPICon BACTERIA SMALL Abnormal NONE SEEN [facility] Comment on above: Performed By: #### U AMIC #### [facility] [address] [address] [address] Marvin Reis Bilirubin Ql (U) Negative Normal NEGATIVE [facility] Comment on above: Performed By: #### U AMIC #### [facility] [address] [address] [address] Marvin Reis CAST SEEN Abnormal NONE SEEN [facility] Comment on above: Performed By: #### U AMIC #### [facility] [address] [address] [address] Marvin Reis Clarity (U) CLEAR Normal CLEAR [facility] Comment on above: Performed By: #### U AMIC #### [facility] [address] [address] [address] Marvin Reis Color (U) LT. YELLOW Normal YELLOW [facility] Comment on above: Performed By: #### U AMIC #### [facility] [address] [address] [address] Marvin Reis Crystals LM Nom (Urine sed) NONE SEEN Normal NONE SEEN [facility] Comment on above: Performed By: #### U AMIC #### [facility] [address] [address] [address] Marvin Reis Epithelial cells LM Ql (Urine sed) FEW Abnormal NONE SEEN /RARE [facility] Comment on above: Performed By: #### U AMIC #### [facility] [address] [address] [address] Marvin Reis Glucose Ql (U) Negative Normal NEGATIVE [facility] Comment on above: Performed By: #### U AMIC #### [facility] [address] [address] [address] Marvin Reis Hemoglobin Ql (U) TRACE-INTACT Abnormal NEGATIVE [facility] Comment on above: Performed By: #### U AMIC #### [facility] [address] [address] [address] Marvin Reis HYALINE CAST FEW Normal [facility] Comment on above: Performed By: #### U AMIC #### [facility] [address] [address] [address] Marvin Reis Ketones Ql (U) Negative Normal NEGATIVE [facility] Comment on above: Performed By: #### U AMIC #### [facility] [address] [address] [address] Marvin Reis LEUKOCYTES MODERATE Abnormal NEGATIVE [facility] Comment on above: Performed By: #### U AMIC #### [facility] [address] [address] [address] Marvin Reis MUCOUS SMALL Abnormal NONE SEEN [facility] Comment on above: Performed By: #### U AMIC #### [facility] [address] [address] [address] Marvin Reis Nitrite Ql (U) Negative Normal NEGATIVE [facility] Comment on above: Performed By: #### U AMIC #### [facility] [address] [address] [address] Marvin Reis pH (U) 5.5 [pH] Normal 5-9 [facility] Comment on above: Performed By: #### U AMIC #### [facility] [address] [place] [address] Dr. Marvin Reis RBC 0-2 Normal 0-2 [facility] Comment on above: Performed By: #### U AMIC #### [facility] [address] [place] [address] Dr. Mavrin Reis SPEC GRAVITY 1.020 Normal 1.005-<=1.025 [facility] Comment on above: Performed By: #### U AMIC #### [facility] [address] [place] [address] Dr. Marvin Reis UA PROTEIN Negative Normal NEGATIVE/ TRACE [facility] Comment on above: Performed By: #### U AMIC #### [facility] [address] [place] [address] Dr. Marvin Reis Urobilinogen Qn (U) 0.2 {Robbie'U}/dL Normal 0.2 - 1. 0 [facility] Comment on above: Performed By: #### U AMIC #### [facility] [address] [place] [address] Dr. Marvin Reis WBC 10-20 Abnormal NONE SEEN [facility] Comment on above: Performed By: #### U AMIC #### [facility] [address] [place] [address] Dr. Marvin Reis CULTURE URINEon 09-26-2022 CULTURE [...] Trimethoprim/Sulfamet hoxazole <=20 S F Normal [facility] Comment on above: Performed By: #### U RCX #### [facility] [address] [place] [address] Dr. Marvin Reis CBC W MANUAL DIFFon 09-25-20 ANISOCYTOSIS SLIGHT Normal [facility] Comment on above: Performed By: #### U RCX #### [facility] [address] [place] [address] Dr. Marvin Reis ATYPICAL LYMPH # Normal [facility] Comment on above: Performed By: #### U RCX #### [facility] [address] [place] [address] Dr. Marvin Reis ATYPICAL LYMPH % Normal [facility] Comment on above: Performed By: #### U RCX #### [facility] [address] [address] [address] Marvin Reis BAND # Normal 0.0-0.3 [facility] Comment on above: Performed By: #### U RCX #### [facility] [address] [place] [address] Dr. Marvin Reis BAND % Normal 0-5 [facility] Comment on above: Performed By: #### U RCX #### [facility] [address] [address] [address] Marvin Reis BASOM # 0.00 103/ul Normal 0.00-0.10 [facility] Comment on above: Performed By: #### U RCX #### [facility] [address] [place] [address] Dr. Marvin Reis BASOM % 0.0 % Critically low 0.2-2.0 [facility] Comment on above: Performed By: #### U RCX #### [facility] [address] [place] [address] Dr. Marvin Reis BLAST # Normal [facility] Comment on above: Performed By: #### U RCX #### [facility] [address] [place] [address] Dr. Marvin Reis BLAST % Normal [facility] Comment on above: Performed By: #### U RCX #### [facility] [address] [place] [address] Dr. Marvin Reis CORRECTED WBC Normal 4.0-11.0 [facility] Comment on above: Performed By: #### U RCX #### [facility] [address] [place] [address] Dr. Marvin Reis EOS # 0.00 103/ul Normal 0.00-0.70 [facility] Comment on above: Performed By: #### U RCX #### [facility] [address] [place] [address] Dr. Marvin Reis EOS% 0.0 % Critically low 0.9-7.0 [facility] Comment on above: Performed By: #### U RCX #### [facility] [address] [address] [address] Marvin Reis HCT 32.1 % Critically low 42.0-54.0 [facility] Comment on above: Performed By: #### U RCX #### [facility] [address] [address] [address] Marvin Reis HGB 10.2 g/dl Critically low 14.0-18.0 [facility] Comment on above: Performed By: #### U RCX #### [facility] [address] [address] [address] Marvin Reis LYMPHM # 0.76 103/ul Critically low 1.20-3.80 [facility] Comment on above: Performed By: #### U RCX #### [facility] [address] [place] [address] Dr. Marvin Reis LYMPHM% 14.0 % Critically low 20.5-60.0 [facility] Comment on above: Performed By: #### U RCX #### [facility] [address] [place] [address] Dr. Marvin Reis MCH 26.5 pg Normal 25.9-34.0 [facility] Comment on above: Performed By: #### U RCX #### [facility] [address] [place] [address] Dr. Marvin Reis MCHC 31.8 g/dl Normal 29.9-35.2 [facility] Comment on above: Performed By: #### U RCX #### [facility] [address] [address] [address] Marvin Reis MCV 83.4 fL Normal 80.0-94.0 [facility] Comment on above: Performed By: #### U RCX #### [facility] [address] [place] [address] Dr. Marvin Reis METAMYELOCYTE # Normal [facility] Comment on above: Performed By: #### U RCX #### [facility] [address] [address] [address] Marvin Reis METAMYELOCYTE % Normal [facility] Comment on above: Performed By: #### U RCX #### [facility] [address] [address] [address] Marvin Reis MONOM# 0.27 103/ul Critically low 0.30-0.80 [facility] Comment on above: Performed By: #### U RCX #### [facility] [address] [address] [address] Marvin Reis MONOM% 5.0 % Normal 1.7-12.0 [facility] Comment on above: Performed By: #### U RCX #### [facility] [address] [address] [address] Marvin Reis MPV 9.8 fL Normal 9.5-13.5 [facility] Comment on above: Performed By: #### U RCX #### [facility] [address] [place] [address] Dr. Marvin Reis MYELOCYTE # Normal [facility] Comment on above: Performed By: #### U RCX #### [facility] [address] [address] [address] Marvin Reis MYELOCYTE % Normal [facility] Comment on above: Performed By: #### U RCX #### [facility] [address] [address] [address] Marvin Reis NRBC Normal [facility] Comment on above: Performed By: #### U RCX #### [facility] [address] [address] [address] Marvin Reis PLT 78 103/ul Critically low 150-450 [facility] Comment on above: Performed By: #### U RCX #### [facility] [address] [address] [address] Marvin Reis RBC 3.85 106/ul Critically low 4.70-6.10 [facility] Comment on above: Performed By: #### U RCX #### [facility] [address] [place] [address] Dr. Marvin Reis RDW 15.8 % Critically high 11.0-15.0 [facility] Comment on above: Performed By: #### U RCX #### [facility] [address] [address] [address] Marvin Reis SEG # 4.37 103/ul Normal 1.40-6.50 [facility] Comment on above: Performed By: #### U RCX #### [facility] [address] [address] [address] Marvin Reis SEG % 81.0 % Critically high 43.0-75.0 [facility] Comment on above: Performed By: #### U RCX #### [facility] [address] [address] [address] Marvin Reis WBC 5.4 103/ul Normal 4.0-11.0 [facility] Comment on above: Performed By: #### U RCX #### [facility] [address] [place] [address] Dr. Marvin Reis CRPon 09-25-2022 CRP 8.9 mg/dL Critically high <=1.0 [facility] Comment on above: Performed By: #### U AMIC #### [facility] [address] [place] [address] Dr. Marvin Reis LACTATE/LACTIC ACIDon 2021 Lactate [Moles/Vol] 0.9 mmol/L Normal 0.4-1.9 [facility] Comment on above: Performed By: #### U RCX #### [facility] [address] [address] [address] Marvin Reis PROF 14(COMP METB)on 022 Albumin [Mass/Vol] 2.6 g/dL Critically low 3.4-5.0 [facility] Comment on above: Performed By: #### U AMIC #### [facility] [address] [place] [address] Dr. Marvin Reis Albumin/Globulin [Mass ratio] 0.7 {ratio} Normal [facility] Comment on above: Performed By: #### U AMIC #### [facility] [address] [place] [address] Dr. Marvin Reis ALP [Catalytic activity/Vol] 75 U/L Normal 46-116 [facility] Comment on above: Performed By: #### U AMIC #### [facility] [address] [address] [address] Marvin Reis ALT [Catalytic activity/Vol] 23 U/L Normal 16-63 [facility] Comment on above: Performed By: #### U AMIC #### [facility] [address] [address] [address] Marvin Reis Anion gap [Moles/Vol] 11.8 mmol/L Normal [facility] Comment on above: Performed By: #### U AMIC #### [facility] [address] [address] [address] Marvin Reis AST [Catalytic activity/Vol] 21 U/L Normal 15-37 [facility] Comment on above: Performed By: #### U AMIC #### [facility] [address] [address] [address] Marvin Reis Bilirubin [Mass/Vol] 0.8 mg/dL Normal 0.2-1.0 [facility] Comment on above: Performed By: #### U AMIC #### [facility] [address] [place] [address] Dr. Marvin Reis Calcium [Mass/Vol] 8.7 mg/dL Normal 8.5-10.1 [facility] Comment on above: Performed By: #### U AMIC #### [facility] [address] [address] [address] Marvin Reis Chloride [Moles/Vol] 105 mmol/L Normal 98-107 [facility] Comment on above: Performed By: #### U AMIC #### [facility] [address] [address] [address] Marvin Reis CO2 [Moles/Vol] 26.1 mmol/L Normal 21.0-32.0 [facility] Comment on above: Performed By: #### U AMIC #### [facility] [address] [address] [address] Marvin Reis Creatinine [Mass/Vol] 0.88 mg/dL Normal 0.70-1.30 [facility] Comment on above: Performed By: #### U AMIC #### [facility] [address] [address] [address] Marvin Reis EGFR-AF IRAQI >60 Normal >=60 [facility] Comment on above: Performed By: #### U AMIC #### [facility] [address] [address] [address] Marvin Reis EGFR-NON AF IRAQI >60 Normal >=60 [facility] Comment on above: Performed By: #### U AMIC #### [facility] [address] [address] [address] Marvin Reis Globulin (S) [Mass/Vol] 3.7 g/dL Normal [facility] Comment on above: Performed By: #### U AMIC #### [facility] [address] [address] [address] Marvin Reis Glucose [Mass/Vol] 93 mg/dL Normal 74-106 [facility] Comment on above: Performed By: #### U AMIC #### [facility] [address] [address] [address] Marvin Reis Potassium [Moles/Vol] 3.9 mmol/L Normal 3.5-5.1 [facility] Comment on above: Performed By: #### U AMIC #### [facility] [address] [address] [address] Marvin Reis Protein [Mass/Vol] 6.3 g/dL Critically low 6.4-8.2 [facility] Comment on above: Performed By: #### U AMIC #### [facility] [address] [address] [address] Marvin Reis Sodium [Moles/Vol] 139 mmol/L Normal 136-145 [facility] Comment on above: Performed By: #### U AMIC #### [facility] [address] [address] [address] Marvin Reis Urea nitrogen [Mass/Vol] 20.0 mg/dL Critically high 7.0-18.0 [facility] Comment on above: Performed By: #### U AMIC #### [facility] [address] [address] [address] Marvin Reis Urea nitrogen/Creatinine [Mass ratio] 22.7 mg/mg Normal [facility] Comment on above: Performed By: #### U AMIC #### [facility] [address] [address] [address] Marvin Reis SED RATE WESTERGREN 2021 SED RATE 49 mm/hr Critically high <=[address] [facility] Comment on above: Performed By: #### U AMIC #### [facility] [address] [address] [address] Marvin Reis CBC W MANUAL DIFFon 09-24-20 ATYPICAL LYMPH # Normal [facility] Comment on above: Performed By: #### U RCX #### [facility] [address] [place] [address] Dr. Marvin Reis ATYPICAL LYMPH % Normal [facility] Comment on above: Performed By: #### U RCX #### [facility] [address] [place] [address] Dr. Marvin Reis BAND # Normal 0.0-0.3 [facility] Comment on above: Performed By: #### U RCX #### [facility] [address] [place] [address] Dr. Marvin Reis BAND % Normal 0-5 [facility] Comment on above: Performed By: #### U RCX #### [facility] [address] [address] [address] Marvin Reis BASOM # 0.00 103/ul Normal 0.00-0.10 [facility] Comment on above: Performed By: #### U RCX #### [facility] [address] [place] [address] Dr. Marvin Reis BASOM % 0.0 % Critically low 0.2-2.0 [facility] Comment on above: Performed By: #### U RCX #### [facility] [address] [place] [address] Dr. Marvin Reis BLAST # Normal [facility] Comment on above: Performed By: #### U RCX #### [facility] [address] [address] [address] Marvin Reis BLAST % Normal [facility] Comment on above: Performed By: #### U RCX #### [facility] [address] [address] [address] Marvin Reis CORRECTED WBC Normal 4.0-11.0 [facility] Comment on above: Performed By: #### U RCX #### [facility] [address] [address] [address] Marvin Reis EOS # 0.00 103/ul Normal 0.00-0.70 [facility] Comment on above: Performed By: #### U RCX #### [facility] [address] [address] [address] Marvin Reis EOS% 0.0 % Critically low 0.9-7.0 [facility] Comment on above: Performed By: #### U RCX #### [facility] [address] [address] [address] Marvin Reis HCT 33.5 % Critically low 42.0-54.0 [facility] Comment on above: Performed By: #### U RCX #### [facility] [address] [place] [address] Dr. Marvin Reis HGB 10.9 g/dl Critically low 14.0-18.0 [facility] Comment on above: Performed By: #### U RCX #### [facility] [address] [address] [address] Marvin Reis LYMPHM # 0.52 103/ul Critically low 1.20-3.[address] [facility] Comment on above: Performed By: #### U RCX #### [facility] [address] [address] [address] Marvin Reis LYMPHM% 4.0 % Critically low 20.5-60.0 [facility] Comment on above: Performed By: #### U RCX #### [facility] [address] [address] [address] Marvin Reis MCH 27.2 pg Normal 25.9-34.0 [facility] Comment on above: Performed By: #### U RCX #### [facility] [address] [place] [address] Dr. Marvin Reis MCHC 32.5 g/dl Normal 29.9-35.2 [facility] Comment on above: Performed By: #### U RCX #### [facility] [address] [address] [address] Marvin Reis MCV 83.5 fL Normal 80.0-94.0 [facility] Comment on above: Performed By: #### U RCX #### [facility] [address] [place] [address] Dr. Marvin Reis METAMYELOCYTE # Normal [facility] Comment on above: Performed By: #### U RCX #### [facility] [address] [place] [address] Dr. Marvin Reis METAMYELOCYTE % Normal [facility] Comment on above: Performed By: #### U RCX #### [facility] [address] [place] [address] Dr. Marvin Reis MONOM# 0.39 103/ul Normal 0.30-0.80 [facility] Comment on above: Performed By: #### U RCX #### [facility] [address] [place] [address] Dr. Marvin Reis MONOM% 3.0 % Normal 1.7-12.0 [facility] Comment on above: Performed By: #### U RCX #### [facility] [address] [place] [address] Dr. Marvin Reis MPV 10.5 fL Normal 9.5-13.5 [facility] Comment on above: Performed By: #### U RCX #### [facility] [address] [place] [address] Dr. Marvin Reis MYELOCYTE # Normal [facility] Comment on above: Performed By: #### U RCX #### [facility] [address] [place], [place] [id number] Dr. Marvin Reis MYELOCYTE % Normal [facility] Comment on above: Performed By: #### U RCX #### [facility] [address] [address] [address] Marvin Reis NRBC Normal [facility] Comment on above: Performed By: #### U RCX #### [facility] [address] [address] [address] Marvin Reis PLT 96 103/ul Critically low 150-450 [facility] Comment on above: Performed By: #### U RCX #### [facility] [address] [address] [address] Marvin Reis RBC 4.01 106/ul Critically low 4.70-6.[address] [facility] Comment on above: Performed By: #### U RCX #### [facility] [address] [address] [address] Marvin Reis RDW 15.8 % Critically high 11.0-15.0 [facility] Comment on above: Performed By: #### U RCX #### [facility] [address] [address] [address] Marvin Reis SEG # 12.00 103/ul Critically high 1.40-6.50 [facility] Comment on above: Performed By: #### U RCX #### [facility] [address] [address] [address] Marvin Reis SEG % 93.0 % Critically high 43.0-75.0 [facility] Comment on above: Performed By: #### U RCX #### [facility] [address] [address] [address] Marvin Reis WBC 12.9 103/ul Critically high 4.0-11.0 [facility] Comment on above: Performed By: #### U RCX #### [facility] [address] [address] [address] Marvin Reis CRPon 09-24-2022 CRP 8.4 mg/dL Critically high <=1.0 [facility] Comment on above: Performed By: #### U AMIC #### [facility] [address] [place] [address] Dr. Marvin Reis LACTATE/LACTIC ACIDon 2021 Lactate [Moles/Vol] 2.2 mmol/L Critically high 0.4-1.9 [facility] Comment on above: Performed By: #### L ACT #### [facility] [address] [address] [address] Marvin Reis PROF 14(COMP METB)on 022 Albumin [Mass/Vol] 2.8 g/dL Critically low 3.4-5.0 [facility] Comment on above: Performed By: #### U AMIC #### [facility] [address] [place] [address] Dr. Marvin Reis Albumin/Globulin [Mass ratio] 0.7 {ratio} Normal [facility] Comment on above: Performed By: #### U AMIC #### [facility] [address] [place] [address] Dr. Marvin Reis ALP [Catalytic activity/Vol] 80 U/L Normal 46-116 [facility] Comment on above: Performed By: #### U AMIC #### [facility] [address] [place] [address] Dr. Marvin Reis ALT [Catalytic activity/Vol] 20 U/L Normal 16-63 [facility] Comment on above: Performed By: #### U AMIC #### [facility] [address] [place] [address] Dr. Marvin Reis Anion gap [Moles/Vol] 12.3 mmol/L Normal [facility] Comment on above: Performed By: #### U AMIC #### [facility] [address] [place] [address] Dr. Marvin Reis AST [Catalytic activity/Vol] 17 U/L Normal 15-37 [facility] Comment on above: Performed By: #### U AMIC #### [facility] [address] [place] [address] Dr. Marvin Reis Bilirubin [Mass/Vol] 1.0 mg/dL Normal 0.2-1.0 [facility] Comment on above: Performed By: #### U AMIC #### [facility] [address] [address] [address] Marvin Reis Calcium [Mass/Vol] 9.0 mg/dL Normal 8.5-10.1 [facility] Comment on above: Performed By: #### U AMIC #### [facility] [address] [address] [address] Marvin Reis Chloride [Moles/Vol] 106 mmol/L Normal 98-107 [facility] Comment on above: Performed By: #### U AMIC #### [facility] [address] [address] [address] Marvin Reis CO2 [Moles/Vol] 25.8 mmol/L Normal 21.0-32.0 [facility] Comment on above: Performed By: #### U AMIC #### [facility] [address] [address] [address] Marvin Reis Creatinine [Mass/Vol] 1.08 mg/dL Normal 0.70-1.30 [facility] Comment on above: Performed By: #### U AMIC #### [facility] [address] [address] [address] Marvin Reis EGFR-AF IRAQI >60 Normal >=60 [facility] Comment on above: Performed By: #### U AMIC #### [facility] [address] [address] [address] Marvin Reis EGFR-NON AF IRAQI >60 Normal >=60 [facility] Comment on above: Performed By: #### U AMIC #### [facility] [address] [address] [address] Marvin Reis Globulin (S) [Mass/Vol] 3.8 g/dL Normal [facility] Comment on above: Performed By: #### U AMIC #### [facility] [address] [address] [address] Marvin Ries Glucose [Mass/Vol] 117 mg/dL Critically high 74-106 [facility] Comment on above: Performed By: #### U AMIC #### [facility] [address] [address] [address] Marvin Reis Potassium [Moles/Vol] 4.1 mmol/L Normal 3.5-5.1 [facility] Comment on above: Performed By: #### U AMIC #### [facility] [address] [address] [address] Marvin Reis Protein [Mass/Vol] 6.6 g/dL Normal 6.4-8.2 [facility] Comment on above: Performed By: #### U AMIC #### [facility] [address] [address] [address] Marvin Reis Sodium [Moles/Vol] 140 mmol/L Normal 136-145 [facility] Comment on above: Performed By: #### U AMIC #### [facility] [address] [address] [address] Marvin Reis Urea nitrogen [Mass/Vol] 23.0 mg/dL Critically high 7.0-18.0 [facility] Comment on above: Performed By: #### U AMIC #### [facility] [address] [address] [address] Marvin Reis Urea nitrogen/Creatinine [Mass ratio] 21.3 mg/mg Normal [facility] Comment on above: Performed By: #### U AMIC #### [facility] [address] [address] [address] Marvin Reis SED RATE [facility] 2021 SED RATE 51 mm/hr Critically high <=[address] [facility] Comment on above: Performed By: #### U RCX #### [facility] [address] [address] [address] Marvin Reis UA RANDOMon 09-24-2022 Bilirubin Ql (U) Negative Normal NEGATIVE [facility] Comment on above: Performed By: #### U AMIC #### [facility] [address] [address] [address] Marvin Reis Clarity (U) CLEAR Normal CLEAR [facility] Comment on above: Performed By: #### U AMIC #### [facility] [address] [address] [address] Marvin Reis Color (U) LT. YELLOW Normal YELLOW [facility] Comment on above: Performed By: #### U AMIC #### [facility] [address] [address] [address] Marvin Reis Glucose Ql (U) Negative Normal NEGATIVE [facility] Comment on above: Performed By: #### U AMIC #### [facility] [address] [address] [address] Marvin Reis Hemoglobin Ql (U) LARGE Abnormal NEGATIVE [facility] Comment on above: Performed By: #### U AMIC #### [facility] [address] [address] [address] Marvin Reis Ketones Ql (U) Negative Normal NEGATIVE [facility] Comment on above: Performed By: #### U AMIC #### [facility] [address] [place] [address] Dr. Marvin Reis LEUKOCYTES MODERATE Abnormal NEGATIVE [facility] Comment on above: Performed By: #### U AMIC #### [facility] [address] [address] [address] Marvin Reis Nitrite Ql (U) Negative Normal NEGATIVE [facility] Comment on above: Performed By: #### U AMIC #### [facility] [address] [place] [address] Dr. Marvin Reis pH (U) 5.5 [pH] Normal 5-9 [facility] Comment on above: Performed By: #### U AMIC #### [facility] [address] [place] [address] Dr. Marvin Reis SPEC GRAVITY 1.020 Normal 1.005-<=1.[address] [facility] Comment on above: Performed By: #### U AMIC #### [facility] [address] [place] [address] Dr. Marvin Reis UA PROTEIN Negative Normal NEGATIVE/ TRACE [facility] Comment on above: Performed By: #### U AMIC #### [facility] [address] [place] [address] Dr. Marvin Reis Urobilinogen Qn (U) 0.2 {Robbie'U}/dL Normal 0.2 - 1. 0 [facility] Comment on above: Performed By: #### U AMIC #### [facility] [address] [place] [address] Dr. Marvin Reis CULTURE URINEon 09-13-2022 CULTURE [...] F Oxacillin >=4 R F Normal [facility] Comment on above: Performed By: #### U RCX #### [facility] [address] [place] [address] Dr. Marvin Reis UA RANDOM W/MICROSCOPICon BACTERIA TRACE Abnormal NONE SEEN [facility] Comment on above: Performed By: #### U AMIC #### [facility] [address] [place] [address] Dr. Marvin Reis Bilirubin Ql (U) Negative Normal NEGATIVE [facility] Comment on above: Performed By: #### U AMIC #### [facility] [address] [place] [address] Dr. Marvin Reis CAST NONE SEEN Normal NONE SEEN [facility] Comment on above: Performed By: #### U AMIC #### [facility] [address] [place] [address] Dr. Marvin Reis Clarity (U) CLEAR Normal CLEAR [facility] Comment on above: Performed By: #### U AMIC #### [facility] [address] [place] [address] Dr. Marvin Reis Color (U) LT. YELLOW Normal YELLOW [facility] Comment on above: Performed By: #### U AMIC #### [facility] [address] [address] [address] Marvin Reis Crystals LM Nom (Urine sed) NONE SEEN Normal NONE SEEN [facility] Comment on above: Performed By: #### U AMIC #### [facility] [address] [address] [address] Marvin Reis Epithelial cells LM Ql (Urine sed) FEW Abnormal NONE SEEN /RARE [facility] Comment on above: Performed By: #### U AMIC #### [facility] [address] [address] [address] Marvin Reis Glucose Ql (U) Negative Normal NEGATIVE [facility] Comment on above: Performed By: #### U AMIC #### [facility] [address] [address] [address] Marvin Reis Hemoglobin Ql (U) Negative Normal NEGATIVE [facility] Comment on above: Performed By: #### U AMIC #### [facility] [address] [address] [address] Marvin Reis Ketones Ql (U) Negative Normal NEGATIVE [facility] Comment on above: Performed By: #### U AMIC #### [facility] [address] [address] [address] Marvin Reis LEUKOCYTES LARGE Abnormal NEGATIVE [facility] Comment on above: Performed By: #### U AMIC #### [facility] [address] [address] [address] Marvin Reis MUCOUS NONE SEEN Normal NONE SEEN [facility] Comment on above: Performed By: #### U AMIC #### [facility] [address] [address] [address] Marvin Reis Nitrite Ql (U) Negative Normal NEGATIVE [facility] Comment on above: Performed By: #### U AMIC #### [facility] [address] [address] [address] Marvin Reis pH (U) 5.5 [pH] Normal 5-9 [facility] Comment on above: Performed By: #### U AMIC #### [facility] [address] [address] [address] Marvin Reis RBC 0-2 Normal 0-2 [facility] Comment on above: Performed By: #### U AMIC #### [facility] [address] [address] [address] Marvin Reis SPEC GRAVITY 1.025 Normal 1.005-<=1.[address] [facility] Comment on above: Performed By: #### U AMIC #### [facility] [address] [place] [address] Dr. Marvin COOLEY PROTEIN Negative Normal NEGATIVE/ TRACE [facility] Comment on above: Performed By: #### U AMIC #### [facility] [address] [place] [address] Dr. Marvin Reis Urobilinogen Qn (U) 0.2 {Robbie'U}/dL Normal 0.2 - 1. 0 [facility] Comment on above: Performed By: #### U AMIC #### [facility] [address] [place] [address] Dr. Marvin Reis WBC 10-20 Abnormal NONE SEEN [facility] Comment on above: Performed By: #### U AMIC #### [facility] [address] [place] [address] Dr. Marvin Reis CULTURE URINEon 08-17-2022 CULTURE [...] Trimethoprim/Sulfamet hoxazole <=20 S F Normal [facility] Comment on above: Performed By: #### U RCX #### [facility] [address] [place] [address] Dr. Marvin Reis UA RANDOM W/MICROSCOPICon BACTERIA MODERATE Abnormal NONE SEEN [facility] Comment on above: Performed By: #### U RCX #### [facility] [address] [place] [address] Dr. Marvin Reis Bilirubin Ql (U) Negative Normal NEGATIVE [facility] Comment on above: Performed By: #### U RCX #### [facility] [address] [place] [address] Dr. Marvin Reis CAST NONE SEEN Normal NONE SEEN [facility] Comment on above: Performed By: #### U RCX #### [facility] [address] [address] [address] Marvin Reis Clarity (U) SL CLOUDY Abnormal CLEAR [facility] Comment on above: Performed By: #### U RCX #### [facility] [address] [place] [address] Dr. Marvin Reis Color (U) LT. YELLOW Normal YELLOW [facility] Comment on above: Performed By: #### U RCX #### [facility] [address] [place] [address] Dr. Marvin Reis Crystals LM Nom (Urine sed) NONE SEEN Normal NONE SEEN [facility] Comment on above: Performed By: #### U RCX #### [facility] [address] [place] [address] Dr. Marvin Reis Epithelial cells LM Ql (Urine sed) RARE Normal NONE SEEN /RARE [facility] Comment on above: Performed By: #### U RCX #### [facility] [address] [place] [address] Dr. Marvin Reis Glucose Ql (U) Negative Normal NEGATIVE [facility] Comment on above: Performed By: #### U RCX #### [facility] [address] [place] [address] Dr. Marvin Reis Hemoglobin Ql (U) SMALL Abnormal NEGATIVE [facility] Comment on above: Performed By: #### U RCX #### [facility] [address] [place] [address] Dr. Marvin Reis Ketones Ql (U) Negative Normal NEGATIVE [facility] Comment on above: Performed By: #### U RCX #### [facility] [address] [address] [address] Marvin Reis LEUKOCYTES MODERATE Abnormal NEGATIVE [facility] Comment on above: Performed By: #### U RCX #### [facility] [address] [address] [address] Marvin Reis MUCOUS NONE SEEN Normal NONE SEEN [facility] Comment on above: Performed By: #### U RCX #### [facility] [address] [place] [address] Dr. Marvin Reis Nitrite Ql (U) Positive Abnormal NEGATIVE [facility] Comment on above: Performed By: #### U RCX #### [facility] [address] [place] [address] Dr. Marvin Reis pH (U) 6.0 [pH] Normal 5-9 [facility] Comment on above: Performed By: #### U RCX #### [facility] [address] [place] [address] Dr. Marvin Reis RBC 0-2 Normal 0-2 [facility] Comment on above: Performed By: #### U RCX #### [facility] [address] [place] [address] Dr. Marvin Reis SPEC GRAVITY 1.015 Normal 1.005-<=1.025 [facility] Comment on above: Performed By: #### U RCX #### [facility] [address] [place] [address] Dr. Marvin Reis UA PROTEIN Negative Normal NEGATIVE/ TRACE [facility] Comment on above: Performed By: #### U RCX #### [facility] [address] [place] [address] Dr. Marvin Reis Urobilinogen Qn (U) 0.2 {Robbie'U}/dL Normal 0.2 - 1. 0 [facility] Comment on above: Performed By: #### U RCX #### [facility] [address] [place] [address] Dr. Marvin Reis WBC 10-20 Abnormal NONE SEEN [facility] Comment on above: Performed By: #### U RCX #### [facility] [address] [place] [address] Dr. Marvin Reis CULTURE URINEon 08-02-2022 CULTURE [...] Trimethoprim/Sulfamet hoxazole <=20 S F Normal [facility] Comment on above: Performed By: #### U RCX #### [facility] [address] [place] [address] Dr. Marvin Reis UA RANDOM W/MICROSCOPICon BACTERIA MODERATE Abnormal NONE SEEN [facility] Comment on above: Performed By: #### U AMIC #### [facility] [address] [place] [address] Dr. Marvin Reis Bilirubin Ql (U) Negative Normal NEGATIVE [facility] Comment on above: Performed By: #### U AMIC #### [facility] [address] [place] [address] Dr. Marvin Reis CAST NONE SEEN Normal NONE SEEN [facility] Comment on above: Performed By: #### U AMIC #### [facility] [address] [place] [address] Dr. Marvin Reis Clarity (U) SL CLOUDY Abnormal CLEAR [facility] Comment on above: Performed By: #### U AMIC #### [facility] [address] [place] [address] Dr. Marvin Reis Color (U) LT. YELLOW Normal YELLOW [facility] Comment on above: Performed By: #### U AMIC #### [facility] [address] [place] [address] Dr. Marvin Reis Crystals LM Nom (Urine sed) NONE SEEN Normal NONE SEEN [facility] Comment on above: Performed By: #### U AMIC #### [facility] [address] [address] [address] Marvin Reis Epithelial cells LM Ql (Urine sed) NONE SEEN Normal NONE SEEN /RARE [facility] Comment on above: Performed By: #### U AMIC #### [facility] [address] [address] [address] Marvin Reis Glucose Ql (U) Negative Normal NEGATIVE [facility] Comment on above: Performed By: #### U AMIC #### [facility] [address] [address] [address] Marvin Reis Hemoglobin Ql (U) TRACE-INTACT Abnormal NEGATIVE [facility] Comment on above: Performed By: #### U AMIC #### [facility] [address] [place] [address] Dr. Marvin Reis Ketones Ql (U) Negative Normal NEGATIVE [facility] Comment on above: Performed By: #### U AMIC #### [facility] [address] [address] [address] Marvin Reis LEUKOCYTES MODERATE Abnormal NEGATIVE [facility] Comment on above: Performed By: #### U AMIC #### [facility] [address] [address] [address] Marvin Reis MUCOUS NONE SEEN Normal NONE SEEN [facility] Comment on above: Performed By: #### U AMIC #### [facility] [address] [address] [address] Marvin Reis Nitrite Ql (U) Positive Abnormal NEGATIVE [facility] Comment on above: Performed By: #### U AMIC #### [facility] [address] [address] [address] Marvin Reis pH (U) 6.0 [pH] Normal 5-9 [facility] Comment on above: Performed By: #### U AMIC #### [facility] [address] [place] [address] Dr. Marvin Reis RBC 0-2 Normal 0-2 [facility] Comment on above: Performed By: #### U AMIC #### [facility] [address] [address] [address] Marvin Reis SPEC GRAVITY 1.015 Normal 1.005-<=1.[address] [facility] Comment on above: Performed By: #### U AMIC #### [facility] [address] [address] [address] Marvin Reis UA PROTEIN Negative Normal NEGATIVE/ TRACE [facility] Comment on above: Performed By: #### U AMIC #### [facility] [address] [address] [address] Marvin Reis Urobilinogen Qn (U) 0.2 {Robbie'U}/dL Normal 0.2 - 1. 0 [facility] Comment on above: Performed By: #### U AMIC #### [facility] [address] [place] [address] Dr. Marvin Reis WBC 20-50 Abnormal NONE SEEN [facility] Comment on above: Performed By: #### U AMIC #### [facility] [address] [place] [address] Dr. Marvin Reis CULTURE URINEon 06-27-2022 CULTURE [...] F Oxacillin >=4 R F Normal [facility] Comment on above: Performed By: #### U AMIC #### [facility] [address] [place] [address] Dr. Marvin Reis UA RANDOM W/MICROSCOPICon BACTERIA LARGE Abnormal NONE SEEN [facility] Comment on above: Performed By: #### U RCX #### [facility] [address] [place] [address] Dr. Marvin Reis Bilirubin Ql (U) Negative Normal NEGATIVE [facility] Comment on above: Performed By: #### U RCX #### [facility] [address] [place] [address] Dr. Marvin Reis CAST NONE SEEN Normal NONE SEEN [facility] Comment on above: Performed By: #### U RCX #### [facility] [address] [place] [address] Dr. Marvin Reis Clarity (U) CLEAR Normal CLEAR [facility] Comment on above: Performed By: #### U RCX #### [facility] [address] [place] [address] Dr. Marvin Reis Color (U) LT. YELLOW Normal YELLOW [facility] Comment on above: Performed By: #### U RCX #### [facility] [address] [place] [address] Dr. Marvin Reis Crystals LM Nom (Urine sed) NONE SEEN Normal NONE SEEN [facility] Comment on above: Performed By: #### U RCX #### [facility] [address] [place] [address] Dr. Marvin Reis Epithelial cells LM Ql (Urine sed) FEW Abnormal NONE SEEN /RARE [facility] Comment on above: Performed By: #### U RCX #### [facility] [address] [place] [address] Dr. Marvin Reis Glucose Ql (U) Negative Normal NEGATIVE [facility] Comment on above: Performed By: #### U RCX #### [facility] [address] [place] [address] Dr. Marvin Reis Hemoglobin Ql (U) TRACE-INTACT Abnormal NEGATIVE [facility] Comment on above: Performed By: #### U RCX #### [facility] [address] [place] [address] Dr. Marvin Reis Ketones Ql (U) Negative Normal NEGATIVE [facility] Comment on above: Performed By: #### U RCX #### [facility] [address] [place] [address] Dr. Marvin Reis LEUKOCYTES LARGE Abnormal NEGATIVE [facility] Comment on above: Performed By: #### U RCX #### [facility] [address] [place] [address] Dr. Marvin Reis MUCOUS NONE SEEN Normal NONE SEEN [facility] Comment on above: Performed By: #### U RCX #### [facility] [address] [place] [address] Dr. Marvin Reis Nitrite Ql (U) Positive Abnormal NEGATIVE [facility] Comment on above: Performed By: #### U RCX #### [facility] [address] [place] [address] Dr. Marvin Reis pH (U) 5.5 [pH] Normal 5-9 [facility] Comment on above: Performed By: #### U RCX #### [facility] [address] [place] [address] Dr. Marvin Reis RBC 2-5 Abnormal 0-2 [facility] Comment on above: Performed By: #### U RCX #### [facility] [address] [place] [address] Dr. Marvin Reis SPEC GRAVITY 1.015 Normal 1.005-<=1.[address] [facility] Comment on above: Performed By: #### U RCX #### [facility] [address] [place] [address] Dr. Marvin Reis UA PROTEIN Negative Normal NEGATIVE/ TRACE [facility] Comment on above: Performed By: #### U RCX #### [facility] [address] [place] [address] Dr. Marvin Reis Urobilinogen Qn (U) 0.2 {Robbie'U}/dL Normal 0.2 - 1. 0 [facility] Comment on above: Performed By: #### U RCX #### [facility] [address] [place] [address] Dr. Marvin Reis WBC (U) [#/Vol] /uL Abnormal NONE SEEN [facility] Comment on above: Performed By: #### U RCX #### [facility] [address] [place] [address] Dr. Marvin Reis CULTURE URINEon 05-27-2022 CULTURE [...] F Oxacillin >=4 R F Normal [facility] Comment on above: Performed By: #### U RCX #### [facility] [address] [place] [address] Dr. Marvin Reis UA RANDOM W/MICROSCOPICon BACTERIA MODERATE Abnormal NONE SEEN [facility] Comment on above: Performed By: #### U RCX #### [facility] [address] [place] [address] Dr. Marvin Reis Bilirubin Ql (U) Negative Normal NEGATIVE [facility] Comment on above: Performed By: #### U RCX #### [facility] [address] [place] [address] Dr. Marvin Reis CAST NONE SEEN Normal NONE SEEN [facility] Comment on above: Performed By: #### U RCX #### [facility] [address] [place] [address] Dr. Marvin Reis Clarity (U) SL CLOUDY Abnormal CLEAR [facility] Comment on above: Performed By: #### U RCX #### [facility] [address] [place] [address] Dr. Marvin Reis Color (U) LT. YELLOW Normal YELLOW [facility] Comment on above: Performed By: #### U RCX #### [facility] [address] [address] [address] Marvin Reis Crystals LM Nom (Urine sed) NONE SEEN Normal NONE SEEN [facility] Comment on above: Performed By: #### U RCX #### [facility] [address] [place] [address] Dr. Marvin Reis Epithelial cells LM Ql (Urine sed) FEW Abnormal NONE SEEN /RARE [facility] Comment on above: Performed By: #### U RCX #### [facility] [address] [place] [address] Dr. Marvin Reis Glucose Ql (U) Negative Normal NEGATIVE [facility] Comment on above: Performed By: #### U RCX #### [facility] [address] [place] [address] Dr. Marvin Reis Hemoglobin Ql (U) SMALL Abnormal NEGATIVE [facility] Comment on above: Performed By: #### U RCX #### [facility] [address] [place] [address] Dr. Marvin Reis Ketones Ql (U) Negative Normal NEGATIVE [facility] Comment on above: Performed By: #### U RCX #### [facility] [address] [address] [address] Marvin Reis LEUKOCYTES LARGE Abnormal NEGATIVE [facility] Comment on above: Performed By: #### U RCX #### [facility] [address] [address] [address] Marvin Reis MUCOUS TRACE Abnormal NONE SEEN [facility] Comment on above: Performed By: #### U RCX #### [facility] [address] [place] [address] Dr. Marvin Reis Nitrite Ql (U) Negative Normal NEGATIVE [facility] Comment on above: Performed By: #### U RCX #### [facility] [address] [place] [address] Dr. Marvin Reis pH (U) 6.0 [pH] Normal 5-9 [facility] Comment on above: Performed By: #### U RCX #### [facility] [address] [place] [address] Dr. Marvin Reis RBC 2-5 Abnormal 0-2 [facility] Comment on above: Performed By: #### U RCX #### [facility] [address] [place] [address] Dr. Marvin Reis SPEC GRAVITY 1.010 Normal 1.005-<=1.025 [facility] Comment on above: Performed By: #### U RCX #### [facility] [address] [place] [address] Dr. Marvin Reis UA PROTEIN Negative Normal NEGATIVE/ TRACE [facility] Comment on above: Performed By: #### U RCX #### [facility] [address] [place] [address] Dr. Marvin Reis Urobilinogen Qn (U) 0.2 {Robbie'U}/dL Normal 0.2 - 1. 0 [facility] Comment on above: Performed By: #### U RCX #### [facility] [address] [place] [address] Dr. Marvin Reis WBC 50-75 Abnormal NONE SEEN [facility] Comment on above: Performed By: #### U RCX #### [facility] [address] [place] [address] Dr. Marvin Reis CULTURE URINEon 04-18-2022 CULTURE [...] F Oxacillin >=4 R F Normal [facility] Comment on above: Performed By: #### U RCX #### [facility] [address] [address] [address] Marvin Reis UA RANDOM W/MICROSCOPICon BACTERIA TRACE Abnormal NONE SEEN [facility] Comment on above: Performed By: #### U AMIC #### [facility] [address] [place] [address] Dr. Marvin Reis Bilirubin Ql (U) Negative Normal NEGATIVE [facility] Comment on above: Performed By: #### U AMIC #### [facility] [address] [address] [address] Marvin Reis CAST NONE SEEN Normal NONE SEEN [facility] Comment on above: Performed By: #### U AMIC #### [facility] [address] [place] [address] Dr. Marvin Reis Clarity (U) CLEAR Normal CLEAR [facility] Comment on above: Performed By: #### U AMIC #### [facility] [address] [address] [address] Marvin Reis Color (U) LT. YELLOW Normal YELLOW [facility] Comment on above: Performed By: #### U AMIC #### [facility] [address] [address] [address] Marvin Reis Crystals LM Nom (Urine sed) NONE SEEN Normal NONE SEEN [facility] Comment on above: Performed By: #### U AMIC #### [facility] [address] [address] [address] Marvin Reis Epithelial cells LM Ql (Urine sed) FEW Abnormal NONE SEEN /RARE [facility] Comment on above: Performed By: #### U AMIC #### [facility] [address] [address] [address] Marvin Reis Glucose Ql (U) Negative Normal NEGATIVE [facility] Comment on above: Performed By: #### U AMIC #### [facility] [address] [place] [address] Dr. Marvin Reis Hemoglobin Ql (U) TRACE-INTACT Abnormal NEGATIVE [facility] Comment on above: Performed By: #### U AMIC #### [facility] [address] [address] [address] Marvin Reis Ketones Ql (U) Negative Normal NEGATIVE [facility] Comment on above: Performed By: #### U AMIC #### [facility] [address] [address] [address] Marvin Reis LEUKOCYTES SMALL Abnormal NEGATIVE [facility] Comment on above: Performed By: #### U AMIC #### [facility] [address] [address] [address] Marvin Reis MUCOUS NONE SEEN Normal NONE SEEN [facility] Comment on above: Performed By: #### U AMIC #### [facility] [address] [place] [address] Dr. Marvin Reis Nitrite Ql (U) Negative Normal NEGATIVE [facility] Comment on above: Performed By: #### U AMIC #### [facility] [address] [place] [address] Dr. Marvin Reis pH (U) 6.0 [pH] Normal 5-9 [facility] Comment on above: Performed By: #### U AMIC #### [facility] [address] [address] [address] Marvin Reis RBC 0-2 Normal 0-2 [facility] Comment on above: Performed By: #### U AMIC #### [facility] [address] [place] [address] Dr. Marvin Reis SPEC GRAVITY 1.010 Normal 1.005-<=1.[address] [facility] Comment on above: Performed By: #### U AMIC #### [facility] [address] [place] [address] Dr. Marvin Reis UA PROTEIN Negative Normal NEGATIVE/ TRACE [facility] Comment on above: Performed By: #### U AMIC #### [facility] [address] [place] [address] Dr. Marvin Reis Urobilinogen Qn (U) 0.2 {Robbie'U}/dL Normal 0.2 - 1. 0 [facility] Comment on above: Performed By: #### U AMIC #### [facility] [address] [address] [address] Marvin Reis WBC 2-5 Abnormal NONE SEEN [facility] Comment on above: Performed By: #### U AMIC #### [facility] [address] [address] [address] Marvin Reis CULTURE URINEon 03-27-2022 CULTURE [...] Trimethoprim/Sulfamet hoxazole >=320 R F Normal [facility] Comment on above: Performed By: #### U RCX #### [facility] [address] [place] [address] Dr. Marvin Reis UA RANDOM W/MICROSCOPICon BACTERIA TRACE Abnormal NONE SEEN [facility] Comment on above: Performed By: #### U RCX #### [facility] [address] [place] [address] Dr. Marvin Reis Bilirubin Ql (U) Negative Normal NEGATIVE [facility] Comment on above: Performed By: #### U RCX #### [facility] [address] [place] [address] Dr. Marvin Reis CAST NONE SEEN Normal NONE SEEN [facility] Comment on above: Performed By: #### U RCX #### [facility] [address] [place] [address] Dr. Marvin Reis Clarity (U) CLEAR Normal CLEAR [facility] Comment on above: Performed By: #### U RCX #### [facility] [address] [address] [address] Marvin Reis Color (U) LT. YELLOW Normal YELLOW [facility] Comment on above: Performed By: #### U RCX #### [facility] [address] [address] [address] Marvin Reis Crystals LM Nom (Urine sed) NONE SEEN Normal NONE SEEN [facility] Comment on above: Performed By: #### U RCX #### [facility] [address] [address] [address] Marvin Reis Epithelial cells LM Ql (Urine sed) FEW Abnormal NONE SEEN /RARE [facility] Comment on above: Performed By: #### U RCX #### [facility] [address] [place] [address] Dr. Marvin Reis Glucose Ql (U) Negative Normal NEGATIVE [facility] Comment on above: Performed By: #### U RCX #### [facility] [address] [place] [address] Dr. Marvin Reis Hemoglobin Ql (U) SMALL Abnormal NEGATIVE [facility] Comment on above: Performed By: #### U RCX #### [facility] [address] [address] [address] Marvin Reis Ketones Ql (U) Negative Normal NEGATIVE [facility] Comment on above: Performed By: #### U RCX #### [facility] [address] [address] [address] Marvin Reis LEUKOCYTES MODERATE Abnormal NEGATIVE [facility] Comment on above: Performed By: #### U RCX #### [facility] [address] [address] [address] Marvin Reis MUCOUS NONE SEEN Normal NONE SEEN [facility] Comment on above: Performed By: #### U RCX #### [facility] [address] [place] [address] Dr. Marvin Reis Nitrite Ql (U) Negative Normal NEGATIVE [facility] Comment on above: Performed By: #### U RCX #### [facility] [address] [place] [address] Dr. Marvin Reis pH (U) 5.5 [pH] Normal 5-9 [facility] Comment on above: Performed By: #### U RCX #### [facility] [address] [place] [address] Dr. Marvin Reis RBC NONE SEEN Abnormal 0-2 [facility] Comment on above: Performed By: #### U RCX #### [facility] [address] [place] [address] Dr. Marvin Reis SPEC GRAVITY 1.015 Normal 1.005-<=1.[address] [facility] Comment on above: Performed By: #### U RCX #### [facility] [address] [place] [address] Dr. Marvin Reis UA PROTEIN Negative Normal NEGATIVE/ TRACE [facility] Comment on above: Performed By: #### U RCX #### [facility] [address] [place] [address] Dr. Marvin Reis Urobilinogen Qn (U) 0.2 {Robbie'U}/dL Normal 0.2 - 1. 0 [facility] Comment on above: Performed By: #### U RCX #### [facility] [address] [place] [address] Dr. Marvin Reis WBC 20-50 Abnormal NONE SEEN [facility] Comment on above: Performed By: #### U RCX #### [facility] [address] [place] [address] Dr. Marvin Reis YEAST PRESENT Abnormal NONE SEEN [facility] Comment on above: Performed By: #### U RCX #### [facility] [address] [place] [address] Dr. Marvin Reis CULTURE URINEon 03-18-2022 CULTURE URINE Culture Observations : No growth Normal [facility] Comment on above: Performed By: #### U RCX #### [facility] [address] [place] [address] Dr. Marvin Reis UA RANDOM W/MICROSCOPICon BACTERIA NONE SEEN Normal NONE SEEN [facility] Comment on above: Performed By: #### U AMIC #### [facility] [address] [address] [address] Marvin Reis Bilirubin Ql (U) Negative Normal NEGATIVE [facility] Comment on above: Performed By: #### U AMIC #### [facility] [address] [address] [address] Marvin Reis CAST NONE SEEN Normal NONE SEEN [facility] Comment on above: Performed By: #### U AMIC #### [facility] [address] [address] [address] Marvin Reis Clarity (U) CLOUDY Abnormal CLEAR [facility] Comment on above: Performed By: #### U AMIC #### [facility] [address] [address] [address] Marvin Reis Color (U) LT. YELLOW Normal YELLOW [facility] Comment on above: Performed By: #### U AMIC #### [facility] [address] [address] [address] Marvin Reis Crystals LM Nom (Urine sed) NONE SEEN Normal NONE SEEN [facility] Comment on above: Performed By: #### U AMIC #### [facility] [address] [address] [address] Marvin Reis Epithelial cells LM Ql (Urine sed) RARE Normal NONE SEEN /RARE [facility] Comment on above: Performed By: #### U AMIC #### [facility] [address] [address] [address] Marvin Reis Glucose Ql (U) Negative Normal NEGATIVE [facility] Comment on above: Performed By: #### U AMIC #### [facility] [address] [address] [address] Marvin Reis Hemoglobin Ql (U) TRACE-INTACT Abnormal NEGATIVE [facility] Comment on above: Performed By: #### U AMIC #### [facility] [address] [address] [address] Marvin Reis Ketones Ql (U) Negative Normal NEGATIVE [facility] Comment on above: Performed By: #### U AMIC #### [facility] [address] [address] [address] Marvin Reis LEUKOCYTES MODERATE Abnormal NEGATIVE [facility] Comment on above: Performed By: #### U AMIC #### [facility] [address] [address] [address] Marvin Reis MUCOUS NONE SEEN Normal NONE SEEN [facility] Comment on above: Performed By: #### U AMIC #### [facility] [address] [address] [address] Marvin Reis Nitrite Ql (U) Negative Normal NEGATIVE [facility] Comment on above: Performed By: #### U AMIC #### [facility] [address] [place] [address] Dr. Marvin Reis pH (U) 6.0 [pH] Normal 5-9 [facility] Comment on above: Performed By: #### U AMIC #### [facility] [address] [place] [address] Dr. Marvin Reis RBC NONE SEEN Abnormal 0-2 [facility] Comment on above: Performed By: #### U AMIC #### [facility] [address] [place] [address] Dr. Marvin Reis SPEC GRAVITY 1.015 Normal 1.005-<=1.[address] [facility] Comment on above: Performed By: #### U AMIC #### [facility] [address] [place] [address] Dr. Marvin Reis UA PROTEIN Negative Normal NEGATIVE/ TRACE [facility] Comment on above: Performed By: #### U AMIC #### [facility] [address] [place] [address] Dr. Marvin Reis Urobilinogen Qn (U) 0.2 {Robbie'U}/dL Normal 0.2 - 1. 0 [facility] Comment on above: Performed By: #### U AMIC #### [facility] [address] [place] [address] Dr. Marvin Reis WBC 10-20 Abnormal NONE SEEN [facility] Comment on above: Performed By: #### U AMIC #### [facility] [address] [place] [address] Dr. Marvin Reis Coding Summary.on 06-21-2020 Coding Summary. CODING DATE: 06/21/2020 FINAL [facility] STATUS: PAYOR: Worker's Compensation ADMIT DX: REASON [...] Hopper CphT Date Saved: 06/21/2020 12:01 pm [facility] PT - Assessmentson 0 PT - Assessments [id number]# 1.00CD:127 [facility] PT - Orderson 06-20-2020 PT - Orders [id number]# 1.00CD:127 [facility] PT - Workers Compon 06-20-20 20 PT - Workers Comp [id number]# 1.00CD:127 [facility] Encounters Encounter Date Encounter Type Care Provider Facility Start: 03-10-2023 End: 03-11-2023 ambulatory [facility] Start: 03-03-2023 End: 03-03-[address] [...] Facility:[facility] Payers Date Payer Category Payer Medicare [id number] 1961 Unknown [id number] 1960 Unknown [id number] 2.16.84 0.1.949473.3.579.2.593 1958 Unknown [id number] 2.16.84 0.1.127674.3.579.2.593 1958 Unknown [id number] 2.16.84 0.1.176839.3.579.2.593 1958 Unknown [id number] 2.16.84 0.1.404057.3.579.2.593 1958 Unknown [id number] 2.16.84 0.1.658653.3.579.2.593 1958 Unknown [id number] 2.16.84 0.1.631898.3.579.2.593 1958 Unknown [id number] 2.16.84 0.1.001912.3.579.2.593 1958 Unknown [id number] 2.16.84 0.1.429216.3.579.2.593 1958 Unknown [id number] 2.16.84 0.1.772953.3.579.2.593 1958 Unknown [id number] 2.16.84 0.1.101252.3.579.2.593 1958 Unknown [id number] 2.16.84 0.1.460169.3.579.2.593 1958 Unknown [id number] 2.16.84 0.1.647734.3.579.2.593 1958 Unknown [id number] 2.16.84 0.1.141292.3.579.2.593 1958 Unknown [id number] 2.16.84 0.1.918407.3.579.2.593 1958 Unknown [id number] 2.16.84 0.1.704288.3.579.2.593 1958 Unknown [id number] 2.16.84 0.1.875115.3.579.2.593 1958 Unknown [id number] 2.16.84 0.1.325262.3.579.2.593 1958 Unknown [id number] 2.16.84 0.1.693208.3.579.2.593 1958 Unknown [id number] 2.16.84 0.1.471902.3.579.2.593 Summary Purpose Family History No Family History [...] section and content) DATE CREATED AUTHOR 09/19/2020 [facility] DATE CREATED AUTHOR AUTHOR'S ORGANIZ ATION 03/06/2023 [facility] DATE CREATED AUTHOR AUTHOR'S ORGANIZ ATION 03/11/2023 [facility] DATE CREATED AUTHOR AUTHOR'S ORGANIZ ATION 06/07/2023 [facility] FOR RECORDS PERTAINING TO PATIENTS WHO ARE [...] BE BASED ON THE PRIMARY CLINICAL RECORDS. [employer] provides no warranty or guarantee of the accuracy or completeness of information in this document.
[2023-12-01 14:38] LABS: Bilirubin Urine NEGATIVE (NEGATIVE); Blood Urine NEGATIVE (NEGATIVE); Clarity Urine CLEAR (CLEAR); Color Urine LT. YELLOW (YELLOW); Glucose Urine UA NEGATIVE (NEGATIVE); Ketones Urine NEGATIVE (NEGATIVE); Leukocyte Esterase Urine SMALL (NEGATIVE); Nitrite Urine NEGATIVE (NEGATIVE); Protein Urine NEGATIVE (NEG/TRACE); Specific Gravity Urine 1.015 (1.005-1.025); Urobilinogen Urine 0.2 EU/dL (0.2-1.0)
[2023-12-01 14:51] LABS: Bacteria Urine MODERATE #/HPF (NONE SEEN); Mucus Urine NONE SEEN (NONE SEEN); RBC Urine NONE SEEN #/HPF (0-2)
[2023-12-01 14:52] LABS: Cast Seen? NONE SEEN #/LPF (NONE SEEN); Crystals Seen? None Seen #/HPF (None Seen); Squamous Epithelial Cell Urine RARE #/LPF (NONE/RARE)
== END 2023-12-01 14:17 | disposition home or self-care (01) ==
LOC: LAB 14:16
PROVIDERS: PCP Family Medicine; Visit Provider Family Medicine
DX: N31.9 Neuromuscular dysfunction of bladder, unspecified (principal)
CPT/HCPCS: 81001; 87086; 87150; 87186

== ENCOUNTER 2023-12-30 14:39 | Outpatient (OUT) | payer OTHER, SELFPAY ==
[2023-12-30 15:13] LABS: Bilirubin Urine NEGATIVE (NEGATIVE); Blood Urine MODERATE (NEGATIVE); Clarity Urine CLOUDY (CLEAR); Color Urine YELLOW (YELLOW); Glucose Urine UA NEGATIVE (NEGATIVE); Ketones Urine NEGATIVE (NEGATIVE); Leukocyte Esterase Urine LARGE (NEGATIVE); Nitrite Urine POSITIVE (NEGATIVE); Protein Urine 30 mg/dL (NEG/TRACE); Specific Gravity Urine 1.015 (1.005-1.025); Urobilinogen Urine 0.2 EU/dL (0.2-1.0)
[2023-12-30 15:26] LABS: Bacteria Urine LARGE #/HPF (NONE SEEN); Cast Seen? NONE SEEN #/LPF (NONE SEEN); Crystals Seen? None Seen #/HPF (None Seen); Mucus Urine NONE SEEN (NONE SEEN); Squamous Epithelial Cell Urine RARE #/LPF (NONE/RARE); WBC Urine >100 #/HPF (NONE SEEN)
== END 2023-12-30 14:40 | disposition home or self-care (01) ==
PROVIDERS: PCP Family Medicine; Visit Provider Family Medicine
DX: N31.9 Neuromuscular dysfunction of bladder, unspecified (principal)
CPT/HCPCS: 81001; 87086; 87150; 87186

== ENCOUNTER 2024-01-20 15:30 | Outpatient (REF) | payer OTHER, SELFPAY ==
[2024-01-20 15:54] LABS: Bilirubin Urine NEGATIVE (NEGATIVE); Blood Urine SMALL (NEGATIVE); Clarity Urine SL CLOUDY (CLEAR); Color Urine LT. YELLOW (YELLOW); Glucose Urine UA NEGATIVE (NEGATIVE); Ketones Urine NEGATIVE (NEGATIVE); Leukocyte Esterase Urine MODERATE (NEGATIVE); Nitrite Urine NEGATIVE (NEGATIVE); Protein Urine TRACE mg/dL (NEG/TRACE); Urobilinogen Urine 0.2 EU/dL (0.2-1.0); pH Urine 5.5 (5.0-9.0)
[2024-01-20 16:19] LABS: Bacteria Urine SMALL #/HPF (NONE SEEN); Crystals Seen? None Seen #/HPF (None Seen); Mucus Urine NONE SEEN (NONE SEEN); Squamous Epithelial Cell Urine FEW #/LPF (NONE/RARE); WBC Urine 75-100 #/HPF (NONE SEEN)
[2024-01-20 16:20] LABS: Cast Seen? NONE SEEN #/LPF (NONE SEEN)
== END 2024-01-20 15:31 | disposition home or self-care (01) ==
LOC: LAB 15:30
PROVIDERS: PCP Family Medicine; Visit Provider Family Medicine
DX: N31.9 Neuromuscular dysfunction of bladder, unspecified (principal)
CPT/HCPCS: 81001; 87086; 87106

== ENCOUNTER 2024-02-19 14:47 | Outpatient (REF) | payer SELFPAY ==
[2024-02-19 15:05] LABS: Bilirubin Urine NEGATIVE (NEGATIVE); Blood Urine TRACE-L (NEGATIVE); Clarity Urine CLEAR (CLEAR); Color Urine LT. YELLOW (YELLOW); Glucose Urine UA NEGATIVE (NEGATIVE); Ketones Urine NEGATIVE (NEGATIVE); Leukocyte Esterase Urine LARGE (NEGATIVE); Nitrite Urine POSITIVE (NEGATIVE); Protein Urine TRACE mg/dL (NEG/TRACE); Specific Gravity Urine 1.015 (1.005-1.025); Urobilinogen Urine 0.2 EU/dL (0.2-1.0); pH Urine 5.5 (5.0-9.0)
[2024-02-19 15:15] LABS: Bacteria Urine MODERATE #/HPF (NONE SEEN); Mucus Urine NONE SEEN (NONE SEEN); RBC Urine 0-2 #/HPF (0-2); Squamous Epithelial Cell Urine FEW #/LPF (NONE/RARE); WBC Urine 20-50 #/HPF (NONE SEEN)
[2024-02-19 15:16] LABS: Urine Culture Indicated ALREADY ORDERED
== END 2024-02-19 14:48 | disposition home or self-care (01) ==
LOC: LAB 14:47
PROVIDERS: PCP Family Medicine; Visit Provider Family Medicine
DX: N39.0 Urinary tract infection, site not specified (principal)
CPT/HCPCS: 81001; 87086; 87150; 87186

== ENCOUNTER 2024-03-09 14:30 | Outpatient (REF) | payer OTHER, SELFPAY ==
[2024-03-09 14:38] LABS: Bilirubin Urine NEGATIVE (NEGATIVE); Blood Urine TRACE-I (NEGATIVE); Clarity Urine CLEAR (CLEAR); Color Urine LT. YELLOW (YELLOW); Glucose Urine UA NEGATIVE (NEGATIVE); Ketones Urine NEGATIVE (NEGATIVE); Leukocyte Esterase Urine MODERATE (NEGATIVE); Nitrite Urine POSITIVE (NEGATIVE); Protein Urine NEGATIVE (NEG/TRACE); Specific Gravity Urine 1.015 (1.005-1.025); Urobilinogen Urine 0.2 EU/dL (0.2-1.0)
[2024-03-09 14:47] LABS: Bacteria Urine MODERATE #/HPF (NONE SEEN); Mucus Urine NONE SEEN (NONE SEEN); Squamous Epithelial Cell Urine FEW #/LPF (NONE/RARE)
[2024-03-09 14:48] LABS: Urine Culture Indicated ALREADY ORDERED
== END 2024-03-09 14:31 | disposition home or self-care (01) ==
LOC: LAB 14:30
PROVIDERS: PCP Family Medicine; Visit Provider Family Medicine
DX: N39.0 Urinary tract infection, site not specified (principal)
CPT/HCPCS: 81001; 87086; 87150; 87186

== ENCOUNTER 2024-03-26 13:02 | Outpatient (REF) | payer OTHER, SELFPAY ==
--- OUTSIDE RECORDS SUMMARY | 2024-03-26 13:15 | XMS_ITS | CCD ---
Author Organization [facility] Care Team Providers Care Straightening Machine Feeder Name Role Phone HOY ., DR WEBBER [...] Unavailable HOY ., DR WEBBER Admherman Unavailable [place], DR MAGY [employer] Unavailable HOY ., [...] source) ceFAZolin Drug Allergy 04-21-20 13 [facility] (1 source) Cilastatin / Imipenem Drug Allergy 04-21-20 13 [facility] (1 source) Readi-Cat Drug allergy (disorder) 04-21-20 13 [facility] (1 source) ceFAZolin; Translations: [CEFAZOLIN] Drug Allergy 12-01-19 13 [facility] (1 source) Cephalexin; Translations: [CEPHALEXIN MONOHYDRATE] Drug Allergy 08-03-20 09 [facility] (1 source) Promazine; Translations: [PROMAZINE] Drug Allergy 12-01-19 13 [facility] (1 source) Sulfamethoxazole / Trimethoprim; Translations: [SULFAMETHOXAZOLE-TR IMETHOPRIM] Drug Allergy 03-10-20 23 [facility] (1 source) IODINATED CONTRAST MEDIA; Translations: [IODINATED CONTRAST MEDIA] Propensity to adverse reactions to drug (disorder) 12-01-19 13 [facility] Problems Active Problems Problem Classification Problem [...] RESISTANT TO ALL B-LACTAM DRUGS. PERFORMED BY: [place] [address] PATHOLOGIST DIETARY AIDE MARLA VEGA M.D. [facility] Comment on above: Performed By: #### A MAI LAYNE #### [place] [id number] [place] Gram Stainon 06-03-2023 Microscopic observation Gram stain Nom (Unsp spec) Gram Stain Result No Bacteria Seen PERFORMED BY: [place] [address] PATHOLOGIST DIETARY AIDE MARLA VEAG M.D. [facility] Comment on above: Performed By: #### A MAI LAYNE #### [place] [id number] [place] CULTURE URINEon 03-06-2023 CULTURE URINE Isolate 1 [...] F Levofloxacin 2 S F Normal [facility] Comment on above: Performed By: #### U RCX #### [facility] [address] [place] [address] Dr. Marvin Reis UA RANDOM W/MICROSCOPICon BACTERIA SMALL Abnormal NONE SEEN [facility] Comment on above: Performed By: #### U AMIC #### [facility] [address] [place] [address] Dr. Marvin Reis Bilirubin Ql (U) Negative Normal NEGATIVE [facility] Comment on above: Performed By: #### U AMIC #### [facility] [address] [place] [address] Dr. Marvin Reis CAST NONE SEEN Normal NONE SEEN [facility] Comment on above: Performed By: #### U AMIC #### [facility] [address] [place] [address] Dr. Marvin Reis Clarity (U) CLEAR Normal CLEAR [facility] Comment on above: Performed By: #### U AMIC #### [facility] [address] [place] [address] Dr. Marvin Reis Color (U) LT. YELLOW Normal YELLOW [facility] Comment on above: Performed By: #### U AMIC #### [facility] [address] [address] [address] Marvin Reis Crystals LM Nom (Urine sed) NONE SEEN Normal NONE SEEN [facility] Comment on above: Performed By: #### U AMIC #### [facility] [address] [place] [address] Dr. Marvin Reis Epithelial cells LM Ql (Urine sed) RARE Normal NONE SEEN /RARE [facility] Comment on above: Performed By: #### U AMIC #### [facility] [address] [address] [address] Marvin Reis Glucose Ql (U) Negative Normal NEGATIVE [facility] Comment on above: Performed By: #### U AMIC #### [facility] [address] [place] [address] Dr. Marvin Reis Hemoglobin Ql (U) Negative Normal NEGATIVE [facility] Comment on above: Performed By: #### U AMIC #### [facility] [address] [place] [address] Dr. Marvin Reis Ketones Ql (U) Negative Normal NEGATIVE [facility] Comment on above: Performed By: #### U AMIC #### [facility] [address] [place] [address] Dr. Marvin Reis LEUKOCYTES SMALL Abnormal NEGATIVE [facility] Comment on above: Performed By: #### U AMIC #### [facility] [address] [place] [address] Dr. Marvin Reis MUCOUS NONE SEEN Normal NONE SEEN [facility] Comment on above: Performed By: #### U AMIC #### [facility] [address] [place] [address] Dr. Marvin Reis Nitrite Ql (U) Negative Normal NEGATIVE [facility] Comment on above: Performed By: #### U AMIC #### [facility] [address] [place] [address] Dr. Marvin Reis pH (U) 6.0 [pH] Normal 5-9 [facility] Comment on above: Performed By: #### U AMIC #### [facility] [address] [place] [address] Dr. Marvin Reis RBC 0-2 Normal 0-2 [facility] Comment on above: Performed By: #### U AMIC #### [facility] [address] [place] [address] Dr. Marvin Reis SPEC GRAVITY 1.010 Normal 1.005-<=1.025 [facility] Comment on above: Performed By: #### U AMIC #### [facility] [address] [address] [address] Marvin Reis UA PROTEIN Negative Normal NEGATIVE/ TRACE [facility] Comment on above: Performed By: #### U AMIC #### [facility] [address] [place] [address] Dr. Marvin Reis Urobilinogen Qn (U) 0.2 {Robbie'U}/dL Normal 0.2 - 1. 0 [facility] Comment on above: Performed By: #### U AMIC #### [facility] [address] [place] [address] Dr. Marvin Reis WBC 5-10 Abnormal NONE SEEN [facility] Comment on above: Performed By: #### U AMIC #### [facility] [address] [place] [address] Dr. Marvin Reis CULTURE URINEon 02-13-2023 CULTURE [...] F Levofloxacin 2 S F Normal [facility] Comment on above: Performed By: #### U RCX #### [facility] [address] [place] [address] Dr. Marvin Reis UA RANDOM W/MICROSCOPICon BACTERIA MODERATE Abnormal NONE SEEN [facility] Comment on above: Performed By: #### U AMIC #### [facility] [address] [place] [address] Dr. Marvin Reis Bilirubin Ql (U) Negative Normal NEGATIVE [facility] Comment on above: Performed By: #### U AMIC #### [facility] [address] [place] [address] Dr. Marvin Reis CAST NONE SEEN Normal NONE SEEN [facility] Comment on above: Performed By: #### U AMIC #### [facility] [address] [place] [address] Dr. Marvin Reis Clarity (U) CLEAR Normal CLEAR [facility] Comment on above: Performed By: #### U AMIC #### [facility] [address] [place] [address] Dr. Marvin Reis Color (U) LT. YELLOW Normal YELLOW [facility] Comment on above: Performed By: #### U AMIC #### [facility] [address] [place] [address] Dr. Marvin Reis Crystals LM Nom (Urine sed) NONE SEEN Normal NONE SEEN [facility] Comment on above: Performed By: #### U AMIC #### [facility] [address] [place] [address] Dr. Marvin Reis Epithelial cells LM Ql (Urine sed) MODERATE Abnormal NONE SEEN /RARE [facility] Comment on above: Performed By: #### U AMIC #### [facility] [address] [place] [address] Dr. Marvin Reis Glucose Ql (U) Negative Normal NEGATIVE [facility] Comment on above: Performed By: #### U AMIC #### [facility] [address] [place] [address] Dr. Marvin Reis Hemoglobin Ql (U) SMALL Abnormal NEGATIVE [facility] Comment on above: Performed By: #### U AMIC #### [facility] [address] [address] [address] Marvin Reis Ketones Ql (U) Negative Normal NEGATIVE [facility] Comment on above: Performed By: #### U AMIC #### [facility] [address] [address] [address] Marvin Reis LEUKOCYTES LARGE Abnormal NEGATIVE [facility] Comment on above: Performed By: #### U AMIC #### [facility] [address] [address] [address] Marvin Reis MUCOUS NONE SEEN Normal NONE SEEN [facility] Comment on above: Performed By: #### U AMIC #### [facility] [address] [place] [address] Dr. Marvin Reis Nitrite Ql (U) Positive Abnormal NEGATIVE [facility] Comment on above: Performed By: #### U AMIC #### [facility] [address] [address] [address] Marvin Reis pH (U) 5.5 [pH] Normal 5-9 [facility] Comment on above: Performed By: #### U AMIC #### [facility] [address] [address] [address] Marvin Reis RBC 5-10 Abnormal 0-2 [facility] Comment on above: Performed By: #### U AMIC #### [facility] [address] [address] [address] Marvin Reis SPEC GRAVITY 1.015 Normal 1.005-<=1.025 [facility] Comment on above: Performed By: #### U AMIC #### [facility] [address] [address] [address] Marvin Reis UA PROTEIN Negative Normal NEGATIVE/ TRACE [facility] Comment on above: Performed By: #### U AMIC #### [facility] [address] [place] [address] Dr. Marvin Reis Urobilinogen Qn (U) 0.2 {Robbie'U}/dL Normal 0.2 - 1. 0 [facility] Comment on above: Performed By: #### U AMIC #### [facility] [address] [place] [address] Dr. Marvin Reis WBC 50-75 Abnormal NONE SEEN [facility] Comment on above: Performed By: #### U AMIC #### [facility] [id number] Marvin Reis CULTURE URINEon 01-23-2023 CULTURE [...] Trimethoprim/Sulfamet hoxazole <=10 S F Normal [facility] Comment on above: Performed By: #### U AMIC #### [facility] [address] [place] [address] Dr. Marvin Reis UA RANDOM W/MICROSCOPICon BACTERIA TRACE Abnormal NONE SEEN [facility] Comment on above: Performed By: #### U AMIC #### [facility] [address] [place] [address] Dr. Marvin Reis Bilirubin Ql (U) Negative Normal NEGATIVE [facility] Comment on above: Performed By: #### U AMIC #### [facility] [address] [address] [address] Marvin Reis CAST NONE SEEN Normal NONE SEEN [facility] Comment on above: Performed By: #### U AMIC #### [facility] [address] [address] [address] Marvin Reis Clarity (U) SL CLOUDY Abnormal CLEAR [facility] Comment on above: Performed By: #### U AMIC #### [facility] [address] [address] [address] Marvin Reis Color (U) LT. YELLOW Normal YELLOW [facility] Comment on above: Performed By: #### U AMIC #### [facility] [address] [place] [address] Dr. Marvin Reis Crystals LM Nom (Urine sed) NONE SEEN Normal NONE SEEN [facility] Comment on above: Performed By: #### U AMIC #### [facility] [address] [place] [address] Dr. Marvin Reis Epithelial cells LM Ql (Urine sed) NONE SEEN Normal NONE SEEN /RARE [facility] Comment on above: Performed By: #### U AMIC #### [facility] [address] [place] [address] Dr. Marvin Reis Glucose Ql (U) Negative Normal NEGATIVE [facility] Comment on above: Performed By: #### U AMIC #### [facility] [address] [address] [address] Marvin Reis Hemoglobin Ql (U) Negative Normal NEGATIVE [facility] Comment on above: Performed By: #### U AMIC #### [facility] [address] [address] [address] Marvin Reis Ketones Ql (U) Negative Normal NEGATIVE [facility] Comment on above: Performed By: #### U AMIC #### [facility] [address] [place] [address] Dr. Marvin Reis LEUKOCYTES TRACE Abnormal NEGATIVE [facility] Comment on above: Performed By: #### U AMIC #### [facility] [address] [address] [address] Marvin Reis MUCOUS NONE SEEN Normal NONE SEEN [facility] Comment on above: Performed By: #### U AMIC #### [facility] [address] [place] [address] Dr. Marvin Reis Nitrite Ql (U) Negative Normal NEGATIVE [facility] Comment on above: Performed By: #### U AMIC #### [facility] [address] [place] [address] Dr. Marvin Reis pH (U) 6.0 [pH] Normal 5-9 [facility] Comment on above: Performed By: #### U AMIC #### [facility] [address] [place] [address] Dr. Marvin Reis RBC NONE SEEN Abnormal 0-2 [facility] Comment on above: Performed By: #### U AMIC #### [facility] [address] [place] [address] Dr. Marvin Reis SPEC GRAVITY 1.020 Normal 1.005-<=1.025 [facility] Comment on above: Performed By: #### U AMIC #### [facility] [address] [place] [address] Dr. Marvin Reis UA PROTEIN Negative Normal NEGATIVE/ TRACE [facility] Comment on above: Performed By: #### U AMIC #### [facility] [address] [place] [address] Dr. Marvin Reis Urobilinogen Qn (U) 0.2 {Robbie'U}/dL Normal 0.2 - 1. 0 [facility] Comment on above: Performed By: #### U AMIC #### [facility] [address] [place] [address] Dr. Marvin Reis WBC 10-20 Abnormal NONE SEEN [facility] Comment on above: Performed By: #### U AMIC #### [facility] [address] [place] [address] Dr. Marvin Reis CULTURE URINEon 01-07-2023 CULTURE URINE Isolate 1 Dawna albicans 10,000 cfu/mL of Normal [facility] Comment on above: Performed By: #### U RCX #### [facility] [address] [address] [address] Marvin Reis UA RANDOM W/MICROSCOPICon BACTERIA TRACE Abnormal NONE SEEN [facility] Comment on above: Performed By: #### U AMIC #### [facility] [address] [address] [address] Marvin Reis Bilirubin Ql (U) Negative Normal NEGATIVE [facility] Comment on above: Performed By: #### U AMIC #### [facility] [address] [address] [address] Marvin Reis CA OX CRYSTALS RARE Normal [facility] Comment on above: Performed By: #### U AMIC #### [facility] [address] [address] [address] Marvin Reis CAST NONE SEEN Normal NONE SEEN [facility] Comment on above: Performed By: #### U AMIC #### [facility] [address] [address] [address] Marvin Reis Clarity (U) CLEAR Normal CLEAR [facility] Comment on above: Performed By: #### U AMIC #### [facility] [address] [address] [address] Marvin Reis Color (U) LT. YELLOW Normal YELLOW [facility] Comment on above: Performed By: #### U AMIC #### [facility] [address] [address] [address] Marvin Reis Crystals LM Nom (Urine sed) SEEN Abnormal NONE SEEN [facility] Comment on above: Performed By: #### U AMIC #### [facility] [address] [address] [address] Marvin Reis Epithelial cells LM Ql (Urine sed) FEW Abnormal NONE SEEN /RARE [facility] Comment on above: Performed By: #### U AMIC #### [facility] [address] [address] [address] Marvin Reis Glucose Ql (U) Negative Normal NEGATIVE [facility] Comment on above: Performed By: #### U AMIC #### [facility] [address] [address] [address] Marvin Reis Hemoglobin Ql (U) Negative Normal NEGATIVE [facility] Comment on above: Performed By: #### U AMIC #### [facility] [address] [address] [address] Marvin Reis Ketones Ql (U) Negative Normal NEGATIVE [facility] Comment on above: Performed By: #### U AMIC #### [facility] [address] [address] [address] Marvin Reis LEUKOCYTES SMALL Abnormal NEGATIVE [facility] Comment on above: Performed By: #### U AMIC #### [facility] [address] [place] [address] Dr. Marvin Reis MUCOUS NONE SEEN Normal NONE SEEN [facility] Comment on above: Performed By: #### U AMIC #### [facility] [address] [place] [address] Dr. Marvin Reis Nitrite Ql (U) Negative Normal NEGATIVE [facility] Comment on above: Performed By: #### U AMIC #### [facility] [address] [place] [address] Dr. Marvin Reis pH (U) 5.5 [pH] Normal 5-9 [facility] Comment on above: Performed By: #### U AMIC #### [facility] [address] [place] [address] Dr. Marvin Reis RBC 0-2 Normal 0-2 [facility] Comment on above: Performed By: #### U AMIC #### [facility] [address] [place] [address] Dr. Marvin Reis SPEC GRAVITY 1.015 Normal 1.005-<=1.025 [facility] Comment on above: Performed By: #### U AMIC #### [facility] [address] [place] [address] Dr. Marvin Reis UA PROTEIN Negative Normal NEGATIVE/ TRACE [facility] Comment on above: Performed By: #### U AMIC #### [facility] [address] [place] [address] Dr. Marvin Reis Urobilinogen Qn (U) 0.2 {Robbie'U}/dL Normal 0.2 - 1. 0 [facility] Comment on above: Performed By: #### U AMIC #### [facility] [address] [place] [address] Dr. Marvin Reis WBC 50-75 Abnormal NONE SEEN [facility] Comment on above: Performed By: #### U AMIC #### [facility] [address] [place] [address] Dr. Marvin Reis YEAST PRESENT Abnormal NONE SEEN [facility] Comment on above: Performed By: #### U AMIC #### [facility] [address] [place] [address] Dr. Marvin Reis CULTURE URINEon 12-25-2022 CULTURE [...] Trimethoprim/Sulfamet hoxazole >=320 R F Normal [facility] Comment on above: Performed By: #### U RCX #### [facility] [address] [place] [address] Dr. Marvin Reis UA RANDOM W/MICROSCOPICon BACTERIA NONE SEEN Normal NONE SEEN [facility] Comment on above: Performed By: #### U AMIC #### [facility] [address] [place] [address] Dr. Marvin Reis Bilirubin Ql (U) Negative Normal NEGATIVE [facility] Comment on above: Performed By: #### U AMIC #### [facility] [address] [place] [address] Dr. Marvin Reis CAST NONE SEEN Normal NONE SEEN [facility] Comment on above: Performed By: #### U AMIC #### [facility] [address] [place] [address] Dr. Marvin Reis Clarity (U) CLEAR Normal CLEAR [facility] Comment on above: Performed By: #### U AMIC #### [facility] [address] [address] [address] Marvin Reis Color (U) LT. YELLOW Normal YELLOW [facility] Comment on above: Performed By: #### U AMIC #### [facility] [address] [place] [address] Dr. Marvin Reis Crystals LM Nom (Urine sed) NONE SEEN Normal NONE SEEN [facility] Comment on above: Performed By: #### U AMIC #### [facility] [address] [place] [address] Dr. Marvin Reis Epithelial cells LM Ql (Urine sed) RARE Normal NONE SEEN /RARE [facility] Comment on above: Performed By: #### U AMIC #### [facility] [address] [place] [address] Dr. Marvin Reis Glucose Ql (U) Negative Normal NEGATIVE [facility] Comment on above: Performed By: #### U AMIC #### [facility] [address] [place] [address] Dr. Marvin Reis Hemoglobin Ql (U) Negative Normal NEGATIVE [facility] Comment on above: Performed By: #### U AMIC #### [facility] [address] [address] [address] Marvin Reis Ketones Ql (U) Negative Normal NEGATIVE [facility] Comment on above: Performed By: #### U AMIC #### [facility] [address] [place] [address] Dr. Marvin Reis LEUKOCYTES MODERATE Abnormal NEGATIVE [facility] Comment on above: Performed By: #### U AMIC #### [facility] [address] [place] [address] Dr. Marvin Reis MUCOUS NONE SEEN Normal NONE SEEN [facility] Comment on above: Performed By: #### U AMIC #### [facility] [address] [place] [address] Dr. Marvin Reis Nitrite Ql (U) Negative Normal NEGATIVE [facility] Comment on above: Performed By: #### U AMIC #### [facility] [address] [place] [address] Dr. Marvin Reis pH (U) 5.5 [pH] Normal 5-9 [facility] Comment on above: Performed By: #### U AMIC #### [facility] [address] [place] [address] Dr. Marvin Reis RBC NONE SEEN Abnormal 0-2 [facility] Comment on above: Performed By: #### U AMIC #### [facility] [address] [place] [address] Dr. Marvin Reis SPEC GRAVITY 1.015 Normal 1.005-<=1.025 [facility] Comment on above: Performed By: #### U AMIC #### [facility] [address] [place] [address] Dr. Marvin Reis UA PROTEIN Negative Normal NEGATIVE/ TRACE [facility] Comment on above: Performed By: #### U AMIC #### [facility] [address] [place] [address] Dr. Marvin Reis Urobilinogen Qn (U) 0.2 {Robbie'U}/dL Normal 0.2 - 1. 0 [facility] Comment on above: Performed By: #### U AMIC #### [facility] [address] [place] [address] Dr. Marvin Reis WBC 10-20 Abnormal NONE SEEN [facility] Comment on above: Performed By: #### U AMIC #### [facility] [address] [place] [address] Dr. Marvin Reis CULTURE URINEon 12-05-2022 CULTURE [...] Trimethoprim/Sulfamet hoxazole <=20 S F Normal [facility] Comment on above: Performed By: #### U RCX #### [facility] [address] [place] [address] Dr. Marvin Reis CREATININEon 12-03-2022 Creatinine [Mass/Vol] 0.88 mg/dL Normal 0.70-1.30 [facility] Comment on above: Performed By: #### U RCX #### [facility] [address] [place] [address] Dr. Marvin Reis EGFR-AF MALAYSIAN >60 Normal >=60 [facility] Comment on above: Performed By: #### U RCX #### [facility] [address] [place] [address] Dr. Marvin Reis EGFR-NON AF MALAYSIAN >60 Normal >=60 [facility] Comment on above: Performed By: #### U RCX #### [facility] [address] [place] [address] ABDOMEN WO/W CONon [...] ELENO PARKER Date: 2022-12-03 14:51 Normal [facility] UA RANDOM W/MICROSCOPICon BACTERIA TRACE Abnormal NONE SEEN [facility] Comment on above: Performed By: #### U RCX #### [facility] [address] [place] [address] Dr. Marvin Reis Bilirubin Ql (U) Negative Normal NEGATIVE [facility] Comment on above: Performed By: #### U RCX #### [facility] [address] [place] [address] Dr. Marvin Reis CAST NONE SEEN Normal NONE SEEN [facility] Comment on above: Performed By: #### U RCX #### [facility] [address] [place] [address] Dr. Marvin Reis Clarity (U) CLEAR Normal CLEAR [facility] Comment on above: Performed By: #### U RCX #### [facility] [address] [place] [address] Dr. Marvin Reis Color (U) LT. YELLOW Normal YELLOW [facility] Comment on above: Performed By: #### U RCX #### [facility] [address] [place] [address] Dr. Marvin Reis Crystals LM Nom (Urine sed) NONE SEEN Normal NONE SEEN [facility] Comment on above: Performed By: #### U RCX #### [facility] [address] [place] [address] Dr. Marvin Reis Epithelial cells LM Ql (Urine sed) RARE Normal NONE SEEN /RARE [facility] Comment on above: Performed By: #### U RCX #### [facility] [address] [address] [address] Marvin Reis Glucose Ql (U) Negative Normal NEGATIVE [facility] Comment on above: Performed By: #### U RCX #### [facility] [address] [address] [address] Marvin Reis Hemoglobin Ql (U) TRACE-INTACT Abnormal NEGATIVE [facility] Comment on above: Performed By: #### U RCX #### [facility] [address] [address] [address] Marvin Reis Ketones Ql (U) Negative Normal NEGATIVE [facility] Comment on above: Performed By: #### U RCX #### [facility] [address] [place] [address] Dr. Marvin Reis LEUKOCYTES TRACE Abnormal NEGATIVE [facility] Comment on above: Performed By: #### U RCX #### [facility] [address] [address] [address] Marvin Reis MUCOUS TRACE Abnormal NONE SEEN [facility] Comment on above: Performed By: #### U RCX #### [facility] [address] [place] [address] Dr. Marvin Reis Nitrite Ql (U) Negative Normal NEGATIVE [facility] Comment on above: Performed By: #### U RCX #### [facility] [address] [address] [address] Marvin Reis pH (U) 5.0 [pH] Normal 5-9 [facility] Comment on above: Performed By: #### U RCX #### [facility] [address] [address] [address] Marvin Reis RBC 0-2 Normal 0-2 [facility] Comment on above: Performed By: #### U RCX #### [facility] [address] [place] [address] Dr. Marvin Reis SPEC GRAVITY 1.010 Normal 1.005-<=1.025 [facility] Comment on above: Performed By: #### U RCX #### [facility] [address], [place] [address] Dr. Marvin Reis UA PROTEIN TRACE Normal NEGATIVE/ TRACE [facility] Comment on above: Performed By: #### U RCX #### [facility] [address], [place] [address] Dr. Marvin Reis Urobilinogen Qn (U) 0.2 {Robbie'U}/dL Normal 0.2 - 1. 0 [facility] Comment on above: Performed By: #### U RCX #### [facility] [address] [address] [address] Marvin Reis WBC 2-5 Abnormal NONE SEEN [facility] Comment on above: Performed By: #### U RCX #### [facility] [address] ABD/PELVIS WO CONon [...] MAGY COMER Date: 2022-11-20 14:51 Normal [facility] CULTURE URINEon 11-11-2022 CULTURE URINE Culture Observations : GUSTABO TO FOLLOW. Isolate 1 Enterobacter aerogenes >100,000 cfu/mL of Normal [facility] Comment on above: Performed By: #### U RCX #### [facility] [address] [place] [address] Dr. Marvin Reis UA RANDOM W/MICROSCOPICon BACTERIA SMALL Abnormal NONE SEEN [facility] Comment on above: Performed By: #### U AMIC #### [facility] [address] [place] [address] Dr. Marvin Reis Bilirubin Ql (U) Negative Normal NEGATIVE [facility] Comment on above: Performed By: #### U AMIC #### [facility] [address] [place] [address] Dr. Marvin Reis CAST NONE SEEN Normal NONE SEEN [facility] Comment on above: Performed By: #### U AMIC #### [facility] [address] [place] [address] Dr. Marvin Reis Clarity (U) CLOUDY Abnormal CLEAR [facility] Comment on above: Performed By: #### U AMIC #### [facility] [address] [place] [address] Dr. Marvin Reis Color (U) LT. YELLOW Normal YELLOW [facility] Comment on above: Performed By: #### U AMIC #### [facility] [address] [address] [address] Marvin Reis Crystals LM Nom (Urine sed) NONE SEEN Normal NONE SEEN [facility] Comment on above: Performed By: #### U AMIC #### [facility] [address] [address] [address] Marvin Reis Epithelial cells LM Ql (Urine sed) NONE SEEN Normal NONE SEEN /RARE [facility] Comment on above: Performed By: #### U AMIC #### [facility] [address] [address] [address] Marvin Reis Glucose Ql (U) Negative Normal NEGATIVE [facility] Comment on above: Performed By: #### U AMIC #### [facility] [address] [place] [address] Dr. Marvin Reis Hemoglobin Ql (U) TRACE-INTACT Abnormal NEGATIVE [facility] Comment on above: Performed By: #### U AMIC #### [facility] [address] [address] [address] Marvin Reis Ketones Ql (U) Negative Normal NEGATIVE [facility] Comment on above: Performed By: #### U AMIC #### [facility] [address] [address] [address] Marvin Reis LEUKOCYTES LARGE Abnormal NEGATIVE [facility] Comment on above: Performed By: #### U AMIC #### [facility] [address] [address] [address] Marvin Reis MUCOUS NONE SEEN Normal NONE SEEN [facility] Comment on above: Performed By: #### U AMIC #### [facility] [address] [place] [address] Dr. Marvin Reis Nitrite Ql (U) Positive Abnormal NEGATIVE [facility] Comment on above: Performed By: #### U AMIC #### [facility] [address] [place] [address] Dr. Marvin Reis pH (U) 5.5 [pH] Normal 5-9 [facility] Comment on above: Performed By: #### U AMIC #### [facility] [address] [place] [address] Dr. Marvin Reis RBC 0-2 Normal 0-2 [facility] Comment on above: Performed By: #### U AMIC #### [facility] [address] [place] [address] Dr. Marvin Reis SPEC GRAVITY 1.015 Normal 1.005-<=1.025 [facility] Comment on above: Performed By: #### U AMIC #### [facility] [address] [place] [address] Dr. Marvin Reis UA PROTEIN Negative Normal NEGATIVE/ TRACE [facility] Comment on above: Performed By: #### U AMIC #### [facility] [address] [place] [address] Dr. Marvin Reis Urobilinogen Qn (U) 0.2 {Robbie'U}/dL Normal 0.2 - 1. 0 [facility] Comment on above: Performed By: #### U AMIC #### [facility] [address] [place] [address] Dr. Marvin Reis WBC 10-20 Abnormal NONE SEEN [facility] Comment on above: Performed By: #### U AMIC #### [facility] [address] [place] [address] Dr. Marvin Reis CULTURE URINEon 10-24-2022 CULTURE [...] Trimethoprim/Sulfamet hoxazole <=20 S F Normal [facility] Comment on above: Performed By: #### U RCX #### [facility] [address] [place] [address] Dr. Marvin Resi UA RANDOM W/MICROSCOPICon BACTERIA LARGE Abnormal NONE SEEN [facility] Comment on above: Performed By: #### U AMIC #### [facility] [address] [address] [address] Marvin Reis Bilirubin Ql (U) Negative Normal NEGATIVE [facility] Comment on above: Performed By: #### U AMIC #### [facility] [address] [address] [address] Marvin Reis CAST NONE SEEN Normal NONE SEEN [facility] Comment on above: Performed By: #### U AMIC #### [facility] [address] [address] [address] Marvin Reis Clarity (U) SL CLOUDY Abnormal CLEAR [facility] Comment on above: Performed By: #### U AMIC #### [facility] [address] [address] [address] Marvin Reis Color (U) YELLOW Normal YELLOW [facility] Comment on above: Performed By: #### U AMIC #### [facility] [address] [address] [address] Marvin Reis Crystals LM Nom (Urine sed) NONE SEEN Normal NONE SEEN [facility] Comment on above: Performed By: #### U AMIC #### [facility] [address] [address] [address] Marvin Reis Epithelial cells LM Ql (Urine sed) FEW Abnormal NONE SEEN /RARE [facility] Comment on above: Performed By: #### U AMIC #### [facility] [address] [address] [address] Marvin Reis Glucose Ql (U) Negative Normal NEGATIVE [facility] Comment on above: Performed By: #### U AMIC #### [facility] [address] [address] [address] Marvin Reis Hemoglobin Ql (U) TRACE-INTACT Abnormal NEGATIVE [facility] Comment on above: Performed By: #### U AMIC #### [facility] [address] [address] [address] Marvin Reis Ketones Ql (U) Negative Normal NEGATIVE [facility] Comment on above: Performed By: #### U AMIC #### [facility] [address] [address] [address] Marvin Reis LEUKOCYTES LARGE Abnormal NEGATIVE [facility] Comment on above: Performed By: #### U AMIC #### [facility] [address] [address] [address] Marvin Reis MUCOUS NONE SEEN Normal NONE SEEN [facility] Comment on above: Performed By: #### U AMIC #### [facility] [address] [address] [address] Marvin Reis Nitrite Ql (U) Negative Normal NEGATIVE [facility] Comment on above: Performed By: #### U AMIC #### [facility] [address] [address] [address] Marvin Reis pH (U) 5.0 [pH] Normal 5-9 [facility] Comment on above: Performed By: #### U AMIC #### [facility] [address] [address] [address] Marvin Reis RBC 5-10 Abnormal 0-2 [facility] Comment on above: Performed By: #### U AMIC #### [facility] [address] [address] [address] Marvin Reis SPEC GRAVITY 1.010 Normal 1.005-<=1.025 [facility] Comment on above: Performed By: #### U AMIC #### [facility] [address] [place] [address] Dr. Marvin Reis UA PROTEIN Negative Normal NEGATIVE/ TRACE [facility] Comment on above: Performed By: #### U AMIC #### [facility] [address] [place] [address] Dr. Marvin Reis Urobilinogen Qn (U) 0.2 {Robbie'U}/dL Normal 0.2 - 1. 0 [facility] Comment on above: Performed By: #### U AMIC #### [facility] [address] [address] [address] Marvin Reis WBC 50-75 Abnormal NONE SEEN [facility] Comment on above: Performed By: #### U AMIC #### [facility] [address] [address] [address] Marvin Reis CULTURE URINEon 10-01-2022 CULTURE URINE Culture Observations : NO GROWTH. Normal [facility] Comment on above: Performed By: #### U AMIC #### [facility] [address] [address] [address] Marvin Reis UA RANDOM W/MICROSCOPICon BACTERIA SMALL Abnormal NONE SEEN [facility] Comment on above: Performed By: #### U AMIC #### [facility] [address] [address] [address] Marvin Reis Bilirubin Ql (U) Negative Normal NEGATIVE [facility] Comment on above: Performed By: #### U AMIC #### [facility] [address] [address] [address] Marvin Reis CAST SEEN Abnormal NONE SEEN [facility] Comment on above: Performed By: #### U AMIC #### [facility] [address] [address] [address] Marvin Reis Clarity (U) CLEAR Normal CLEAR [facility] Comment on above: Performed By: #### U AMIC #### [facility] [address] [address] [address] Marvin Reis Color (U) LT. YELLOW Normal YELLOW [facility] Comment on above: Performed By: #### U AMIC #### [facility] [address] [address] [address] Marvin Reis Crystals LM Nom (Urine sed) NONE SEEN Normal NONE SEEN [facility] Comment on above: Performed By: #### U AMIC #### [facility] [address] [address] [address] Marvin Reis Epithelial cells LM Ql (Urine sed) FEW Abnormal NONE SEEN /RARE [facility] Comment on above: Performed By: #### U AMIC #### [facility] [address] [place] [address] Dr. Marvin Reis Glucose Ql (U) Negative Normal NEGATIVE [facility] Comment on above: Performed By: #### U AMIC #### [facility] [address] [place] [address] Dr. Marvin Reis Hemoglobin Ql (U) TRACE-INTACT Abnormal NEGATIVE [facility] Comment on above: Performed By: #### U AMIC #### [facility] [address] [address] [address] Marvin Reis HYALINE CAST FEW Normal [facility] Comment on above: Performed By: #### U AMIC #### [facility] [address] [place] [address] Dr. Marvin Reis Ketones Ql (U) Negative Normal NEGATIVE [facility] Comment on above: Performed By: #### U AMIC #### [facility] [address] [place] [address] Dr. Marvin Reis LEUKOCYTES MODERATE Abnormal NEGATIVE [facility] Comment on above: Performed By: #### U AMIC #### [facility] [address] [place] [address] Dr. Marvin Reis MUCOUS SMALL Abnormal NONE SEEN [facility] Comment on above: Performed By: #### U AMIC #### [facility] [address] [place] [address] Dr. Marvin Reis Nitrite Ql (U) Negative Normal NEGATIVE [facility] Comment on above: Performed By: #### U AMIC #### [facility] [address] [place] [address] Dr. Marvin Reis pH (U) 5.5 [pH] Normal 5-9 [facility] Comment on above: Performed By: #### U AMIC #### [facility] [address] [place] [address] Dr. Marvin Reis RBC 0-2 Normal 0-2 [facility] Comment on above: Performed By: #### U AMIC #### [facility] [address] [place] [address] Dr. Marvin Reis SPEC GRAVITY 1.020 Normal 1.005-<=1.025 [facility] Comment on above: Performed By: #### U AMIC #### [facility] [address] [place] [address] Dr. Marvin Reis UA PROTEIN Negative Normal NEGATIVE/ TRACE [facility] Comment on above: Performed By: #### U AMIC #### [facility] [address] [address] [address] Marvin Reis Urobilinogen Qn (U) 0.2 {Robbie'U}/dL Normal 0.2 - 1. 0 [facility] Comment on above: Performed By: #### U AMIC #### [facility] [address] [address] [address] Marvin Reis WBC 10-20 Abnormal NONE SEEN [facility] Comment on above: Performed By: #### U AMIC #### [facility] [address] [address] [address] Marvin Reis CULTURE URINEon 09-26-2022 CULTURE [...] Trimethoprim/Sulfamet hoxazole <=20 S F Normal [facility] Comment on above: Performed By: #### U RCX #### [facility] [address] [place] [address] Dr. Marvin Reis CBC W MANUAL DIFFon 09-25-20 ANISOCYTOSIS SLIGHT Normal [facility] Comment on above: Performed By: #### U RCX #### [facility] [address] [place] [address] Dr. Marvin Reis ATYPICAL LYMPH # Normal [facility] Comment on above: Performed By: #### U RCX #### [facility] [address] [place] [address] Dr. Marvin Reis ATYPICAL LYMPH % Normal [facility] Comment on above: Performed By: #### U RCX #### [facility] [address] [place] [address] Dr. Marvin Reis BAND # Normal 0.0-0.3 [facility] Comment on above: Performed By: #### U RCX #### [facility] [address] [place] [address] Dr. Marvin Reis BAND % Normal 0-5 [facility] Comment on above: Performed By: #### U RCX #### [facility] [address] [place] [address] Dr. Marvin Reis BASOM # 0.00 103/ul Normal 0.00-0.10 [facility] Comment on above: Performed By: #### U RCX #### [facility] [address] [place] [address] Dr. Marvin Reis BASOM % 0.0 % Critically low 0.2-2.0 [facility] Comment on above: Performed By: #### U RCX #### [facility] [address] [place] [address] Dr. Marvin Reis BLAST # Normal [facility] Comment on above: Performed By: #### U RCX #### [facility] [address] [place] [address] Dr. Marvin Reis BLAST % Normal [facility] Comment on above: Performed By: #### U RCX #### [facility] [address] [place] [address] Dr. Marvin Reis CORRECTED WBC Normal 4.0-11.0 [facility] Comment on above: Performed By: #### U RCX #### [facility] [address] [place] [address] Dr. Marvin Reis EOS # 0.00 103/ul Normal 0.00-0.70 [facility] Comment on above: Performed By: #### U RCX #### [facility] [address] [place] [address] Dr. Marvin Reis EOS% 0.0 % Critically low 0.9-7.0 [facility] Comment on above: Performed By: #### U RCX #### [facility] [address] [place] [address] Dr. Marvin Reis HCT 32.1 % Critically low 42.0-54.0 [facility] Comment on above: Performed By: #### U RCX #### [facility] [address] [address] [address] Marvin Reis HGB 10.2 g/dl Critically low 14.0-18.0 [facility] Comment on above: Performed By: #### U RCX #### [facility] [address] [address] [address] Marvin Reis LYMPHM # 0.76 103/ul Critically low 1.20-3.80 [facility] Comment on above: Performed By: #### U RCX #### [facility] [address] [place] [address] Dr. Marvin Reis LYMPHM% 14.0 % Critically low 20.5-60.0 [facility] Comment on above: Performed By: #### U RCX #### [facility] [address] [place] [address] Dr. Marvin Reis MCH 26.5 pg Normal 25.9-34.0 [facility] Comment on above: Performed By: #### U RCX #### [facility] [address] [place] [address] Dr. Marvin Reis MCHC 31.8 g/dl Normal 29.9-35.2 [facility] Comment on above: Performed By: #### U RCX #### [facility] [address] [place] [address] Dr. Marvin Reis MCV 83.4 fL Normal 80.0-94.0 [facility] Comment on above: Performed By: #### U RCX #### [facility] [address] [address] [address] Marvin Reis METAMYELOCYTE # Normal [facility] Comment on above: Performed By: #### U RCX #### [facility] [address] [place] [address] Dr. Marvin Reis METAMYELOCYTE % Normal [facility] Comment on above: Performed By: #### U RCX #### [facility] [address] [address] [address] Marvin Reis MONOM# 0.27 103/ul Critically low 0.30-0.80 [facility] Comment on above: Performed By: #### U RCX #### [facility] [address] [address] [address] Marvin Reis MONOM% 5.0 % Normal 1.7-12.0 [facility] Comment on above: Performed By: #### U RCX #### [facility] [address] [address] [address] Marvin Reis MPV 9.8 fL Normal 9.5-13.5 [facility] Comment on above: Performed By: #### U RCX #### [facility] [address] [place] [address] Dr. Marvin Reis MYELOCYTE # Normal [facility] Comment on above: Performed By: #### U RCX #### [facility] [address] [address] [address] Marvin Reis MYELOCYTE % Normal [facility] Comment on above: Performed By: #### U RCX #### [facility] [address] [place] [address] Dr. Marvin Reis NRBC Normal [facility] Comment on above: Performed By: #### U RCX #### [facility] [address] [place] [address] Dr. Marvin Reis PLT 78 103/ul Critically low 150-450 [facility] Comment on above: Performed By: #### U RCX #### [facility] [address] [address] [address] Marvin Reis RBC 3.85 106/ul Critically low 4.70-6.10 [facility] Comment on above: Performed By: #### U RCX #### [facility] [address] [place] [address] Dr. Marvin Reis RDW 15.8 % Critically high 11.0-15.0 [facility] Comment on above: Performed By: #### U RCX #### [facility] [address] [address] [address] Marvin Reis SEG # 4.37 103/ul Normal 1.40-6.50 [facility] Comment on above: Performed By: #### U RCX #### [facility] [address] [address] [address] Marvin Reis SEG % 81.0 % Critically high 43.0-75.0 [facility] Comment on above: Performed By: #### U RCX #### [facility] [address] [place] [address] Dr. Marvin Reis WBC 5.4 103/ul Normal 4.0-11.0 [facility] Comment on above: Performed By: #### U RCX #### [facility] [address] [place] [address] Dr. Marvin Reis CRPon 09-25-2022 CRP 8.9 mg/dL Critically high <=1.0 [facility] Comment on above: Performed By: #### U AMIC #### [facility] [address] [place] [address] Dr. Marvin Reis LACTATE/LACTIC ACIDon 2021 Lactate [Moles/Vol] 0.9 mmol/L Normal 0.4-1.9 [facility] Comment on above: Performed By: #### U RCX #### [facility] [address] [place] [address] Dr. Marvin Reis PROF 14(COMP METB)on 022 Albumin [Mass/Vol] 2.6 g/dL Critically low 3.4-5.0 [facility] Comment on above: Performed By: #### U AMIC #### [facility] [address] [address] [address] Marvin Reis Albumin/Globulin [Mass ratio] 0.7 {ratio} Normal [facility] Comment on above: Performed By: #### U AMIC #### [facility] [address] [address] [address] Marvin Reis ALP [Catalytic activity/Vol] 75 U/L Normal 46-116 [facility] Comment on above: Performed By: #### U AMIC #### [facility] [address] [address] [address] Marvin Reis ALT [Catalytic activity/Vol] 23 U/L Normal 16-63 [facility] Comment on above: Performed By: #### U AMIC #### [facility] [address] [address] [address] Marvin Reis Anion gap [Moles/Vol] 11.8 mmol/L Normal [facility] Comment on above: Performed By: #### U AMIC #### [facility] [address] [address] [address] Marvin Reis AST [Catalytic activity/Vol] 21 U/L Normal 15-37 [facility] Comment on above: Performed By: #### U AMIC #### [facility] [address] [address] [address] Marvin Reis Bilirubin [Mass/Vol] 0.8 mg/dL Normal 0.2-1.0 [facility] Comment on above: Performed By: #### U AMIC #### [facility] [address] [address] [address] Marvin Reis Calcium [Mass/Vol] 8.7 mg/dL Normal 8.5-10.1 [facility] Comment on above: Performed By: #### U AMIC #### [facility] [address] [address] [address] Marvin Reis Chloride [Moles/Vol] 105 mmol/L Normal 98-107 [facility] Comment on above: Performed By: #### U AMIC #### [facility] [address] [address] [address] Marvin Reis CO2 [Moles/Vol] 26.1 mmol/L Normal 21.0-32.0 [facility] Comment on above: Performed By: #### U AMIC #### [facility] [address] [address] [address] Marvin Reis Creatinine [Mass/Vol] 0.88 mg/dL Normal 0.70-1.30 [facility] Comment on above: Performed By: #### U AMIC #### [facility] [address] [address] [address] Marvin Reis EGFR-AF MALAYSIAN >60 Normal >=60 [facility] Comment on above: Performed By: #### U AMIC #### [facility] [address] [address] [address] Marvin Reis EGFR-NON AF MALAYSIAN >60 Normal >=60 [facility] Comment on above: Performed By: #### U AMIC #### [facility] [address] [address] [address] Marvin Reis Globulin (S) [Mass/Vol] 3.7 g/dL Normal [facility] Comment on above: Performed By: #### U AMIC #### [facility] [address] [address] [address] Marvin eRis Glucose [Mass/Vol] 93 mg/dL Normal 74-106 [facility] Comment on above: Performed By: #### U AMIC #### [facility] [address] [place] [address] Dr[address] Marvin Reis Potassium [Moles/Vol] 3.9 mmol/L Normal 3.5-5.1 [facility] Comment on above: Performed By: #### U AMIC #### [facility] [address] [address] [address] Marvin Reis Protein [Mass/Vol] 6.3 g/dL Critically low 6.4-8.[address] [facility] Comment on above: Performed By: #### U AMIC #### [facility] [address] [address] [address] Marvin Reis Sodium [Moles/Vol] 139 mmol/L Normal 136-145 [facility] Comment on above: Performed By: #### U AMIC #### [facility] [address] [address] [address] Marvin Reis Urea nitrogen [Mass/Vol] 20.0 mg/dL Critically high 7.0-18.0 [facility] Comment on above: Performed By: #### U AMIC #### [facility] [address] [place] [address] Dr. Marvin Reis Urea nitrogen/Creatinine [Mass ratio] 22.7 mg/mg Normal [facility] Comment on above: Performed By: #### U AMIC #### [facility] [address] [place] [address] Dr. Marvin Reis SED RATE WESTERGRENon 2021 SED RATE 49 mm/hr Critically high <=20 [facility] Comment on above: Performed By: #### U AMIC #### [facility] [address] [place] [address] Dr. Marvin Reis CBC W MANUAL DIFFon 09-24-20 ATYPICAL LYMPH # Normal [facility] Comment on above: Performed By: #### U RCX #### [facility] [address] [place] [address] Dr. Marvin Reis ATYPICAL LYMPH % Normal [facility] Comment on above: Performed By: #### U RCX #### [facility] [address] [place] [address] Dr. Marvin Reis BAND # Normal 0.0-0.3 [facility] Comment on above: Performed By: #### U RCX #### [facility] [address] [place] [address] Dr. Marvin Reis BAND % Normal 0-5 [facility] Comment on above: Performed By: #### U RCX #### [facility] [address] [place] [address] Dr. Marvin Reis BASOM # 0.00 103/ul Normal 0.00-0.10 [facility] Comment on above: Performed By: #### U RCX #### [facility] [address] [address] [address] Marvin Reis BASOM % 0.0 % Critically low 0.2-2.0 [facility] Comment on above: Performed By: #### U RCX #### [facility] [address] [place] [address] Dr. Marvin Reis BLAST # Normal [facility] Comment on above: Performed By: #### U RCX #### [facility] [address] [address] [address] Marvin Reis BLAST % Normal [facility] Comment on above: Performed By: #### U RCX #### [facility] [address] [place] [address] Dr. Marvin Reis CORRECTED WBC Normal 4.0-11.0 [facility] Comment on above: Performed By: #### U RCX #### [facility] [address] [address] [address] Marvin Reis EOS # 0.00 103/ul Normal 0.00-0.70 [facility] Comment on above: Performed By: #### U RCX #### [facility] [address] [place] [address] Dr. Marvin Reis EOS% 0.0 % Critically low 0.9-7.0 [facility] Comment on above: Performed By: #### U RCX #### [facility] [address] [place] [address] Dr. Marvin Reis HCT 33.5 % Critically low 42.0-54.0 [facility] Comment on above: Performed By: #### U RCX #### [facility] [address] [place] [address] Dr. Marvin Reis HGB 10.9 g/dl Critically low 14.0-18.0 [facility] Comment on above: Performed By: #### U RCX #### [facility] [address] [place] [address] Dr. Marvin Reis LYMPHM # 0.52 103/ul Critically low 1.20-3.80 [facility] Comment on above: Performed By: #### U RCX #### [facility] [address] [place] [address] Dr. Marvin Reis LYMPHM% 4.0 % Critically low 20.5-60.0 [facility] Comment on above: Performed By: #### U RCX #### [facility] [address] [place] [address] Dr. Marvin Reis MCH 27.2 pg Normal 25.9-34.0 [facility] Comment on above: Performed By: #### U RCX #### [facility] [address] [place] [address] Dr. Marvin Reis MCHC 32.5 g/dl Normal 29.9-35.2 [facility] Comment on above: Performed By: #### U RCX #### [facility] [address] [address] [address] Marvin Reis MCV 83.5 fL Normal 80.0-94.0 [facility] Comment on above: Performed By: #### U RCX #### [facility] [address] [place] [address] Dr. Marvin Reis METAMYELOCYTE # Normal [facility] Comment on above: Performed By: #### U RCX #### [facility] [address] [place] [address] Dr. Marvin Reis METAMYELOCYTE % Normal [facility] Comment on above: Performed By: #### U RCX #### [facility] [address] [place] [address] Dr. Marvin Reis MONOM# 0.39 103/ul Normal 0.30-0.80 [facility] Comment on above: Performed By: #### U RCX #### [facility] [address] [place] [address] Dr. Marvin Reis MONOM% 3.0 % Normal 1.7-12.0 [facility] Comment on above: Performed By: #### U RCX #### [facility] [address] [place] [address] Dr. Marvin Reis MPV 10.5 fL Normal 9.5-13.5 [facility] Comment on above: Performed By: #### U RCX #### [facility] [address] [place] [address] Dr. Marvin Reis MYELOCYTE # Normal [facility] Comment on above: Performed By: #### U RCX #### [facility] [address] [place] [address] Dr. Marvin Reis MYELOCYTE % Normal [facility] Comment on above: Performed By: #### U RCX #### [facility] [address] [address] [address] Marvin Reis NRBC Normal [facility] Comment on above: Performed By: #### U RCX #### [facility] [address] [address] [address] Marvin Reis PLT 96 103/ul Critically low 150-450 [facility] Comment on above: Performed By: #### U RCX #### [facility] [address] [address] [address] Marvin Reis RBC 4.01 106/ul Critically low 4.70-6.10 [facility] Comment on above: Performed By: #### U RCX #### [facility] [address] [address] [address] Marvin Reis RDW 15.8 % Critically high 11.0-15.0 [facility] Comment on above: Performed By: #### U RCX #### [facility] [address] [address] [address] Marvin Reis SEG # 12.00 103/ul Critically high 1.40-6.50 [facility] Comment on above: Performed By: #### U RCX #### [facility] [address] [address] [address] Marvin Reis SEG % 93.0 % Critically high 43.0-75.0 [facility] Comment on above: Performed By: #### U RCX #### [facility] [address] [address] [address] Marvin Reis WBC 12.9 103/ul Critically high 4.0-11.0 [facility] Comment on above: Performed By: #### U RCX #### [facility] [address] [address] [address] Marvin Reis CRPon 09-24-2022 CRP 8.4 mg/dL Critically high <=1.0 [facility] Comment on above: Performed By: #### U AMIC #### [facility] [address] [address] [address] Marvin Reis LACTATE/LACTIC ACIDon 2021 Lactate [Moles/Vol] 2.2 mmol/L Critically high 0.4-1.9 [facility] Comment on above: Performed By: #### L ACT #### [facility] [address] [address] [address] Marvin Reis PROF 14(COMP METB)on 022 Albumin [Mass/Vol] 2.8 g/dL Critically low 3.4-5.[address] [facility] Comment on above: Performed By: #### U AMIC #### [facility] [address] [place] [address] Dr. Marvin Reis Albumin/Globulin [Mass ratio] 0.7 {ratio} Normal [facility] Comment on above: Performed By: #### U AMIC #### [facility] [address] [place] [address] Dr. Marvin Reis ALP [Catalytic activity/Vol] 80 U/L Normal 46-116 [facility] Comment on above: Performed By: #### U AMIC #### [facility] [address] [place] [address] Dr. Marvin Reis ALT [Catalytic activity/Vol] 20 U/L Normal 16-63 [facility] Comment on above: Performed By: #### U AMIC #### [facility] [address] [place] [address] Dr. Marvin Reis Anion gap [Moles/Vol] 12.3 mmol/L Normal [facility] Comment on above: Performed By: #### U AMIC #### [facility] [address] [place] [address] Dr. Marvin Reis AST [Catalytic activity/Vol] 17 U/L Normal 15-37 [facility] Comment on above: Performed By: #### U AMIC #### [facility] [address] [place] [address] Dr. Marvin Reis Bilirubin [Mass/Vol] 1.0 mg/dL Normal 0.2-1.0 [facility] Comment on above: Performed By: #### U AMIC #### [facility] [address] [address] [address] Marvin Reis Calcium [Mass/Vol] 9.0 mg/dL Normal 8.5-10.1 [facility] Comment on above: Performed By: #### U AMIC #### [facility] [address] [address] [address] Marvin Reis Chloride [Moles/Vol] 106 mmol/L Normal 98-107 [facility] Comment on above: Performed By: #### U AMIC #### [facility] [address] [address] [address] Marvin Reis CO2 [Moles/Vol] 25.8 mmol/L Normal 21.0-32.0 [facility] Comment on above: Performed By: #### U AMIC #### [facility] [address] [place] [address] Dr. Marvin Reis Creatinine [Mass/Vol] 1.08 mg/dL Normal 0.70-1.30 [facility] Comment on above: Performed By: #### U AMIC #### [facility] [address] [address] [address] Marvin Reis EGFR-AF MALAYSIAN >60 Normal >=60 [facility] Comment on above: Performed By: #### U AMIC #### [facility] [address] [address] [address] Marvin Reis EGFR-NON AF MALAYSIAN >60 Normal >=60 [facility] Comment on above: Performed By: #### U AMIC #### [facility] [address] [address] [address] Marvin Reis Globulin (S) [Mass/Vol] 3.8 g/dL Normal [facility] Comment on above: Performed By: #### U AMIC #### [facility] [address] [address] [address] Marvin Reis Glucose [Mass/Vol] 117 mg/dL Critically high 74-106 [facility] Comment on above: Performed By: #### U AMIC #### [facility] [address] [address] [address] Marvin Reis Potassium [Moles/Vol] 4.1 mmol/L Normal 3.5-5.1 [facility] Comment on above: Performed By: #### U AMIC #### [facility] [address] [address] [address] Marvin Reis Protein [Mass/Vol] 6.6 g/dL Normal 6.4-8.2 [facility] Comment on above: Performed By: #### U AMIC #### [facility] [address] [address] [address] Marvin Reis Sodium [Moles/Vol] 140 mmol/L Normal 136-145 [facility] Comment on above: Performed By: #### U AMIC #### [facility] [address] [place] [address] Dr. Marvin Reis Urea nitrogen [Mass/Vol] 23.0 mg/dL Critically high 7.0-18.0 [facility] Comment on above: Performed By: #### U AMIC #### [facility] [address] [place] [address] Dr. Marvin Reis Urea nitrogen/Creatinine [Mass ratio] 21.3 mg/mg Normal [facility] Comment on above: Performed By: #### U AMIC #### [facility] [address] [place] [address] Dr. Marvin Reis SED RATE [facility] 2021 SED RATE 51 mm/hr Critically high <=20 [facility] Comment on above: Performed By: #### U RCX #### [facility] [address] [place] [address] Dr. Marvin Reis UA RANDOMon 09-24-2022 Bilirubin Ql (U) Negative Normal NEGATIVE [facility] Comment on above: Performed By: #### U AMIC #### [facility] [address] [place] [address] Dr. Marvin Reis Clarity (U) CLEAR Normal CLEAR [facility] Comment on above: Performed By: #### U AMIC #### [facility] [address] [place] [address] Dr. Marvin Reis Color (U) LT. YELLOW Normal YELLOW [facility] Comment on above: Performed By: #### U AMIC #### [facility] [address] [address] [address] Marvin Reis Glucose Ql (U) Negative Normal NEGATIVE [facility] Comment on above: Performed By: #### U AMIC #### [facility] [address] [address] [address] Marvin Reis Hemoglobin Ql (U) LARGE Abnormal NEGATIVE [facility] Comment on above: Performed By: #### U AMIC #### [facility] [address] [address] [address] Marvin Reis Ketones Ql (U) Negative Normal NEGATIVE [facility] Comment on above: Performed By: #### U AMIC #### [facility] [address] [place] [address] Dr. Marvin Reis LEUKOCYTES MODERATE Abnormal NEGATIVE [facility] Comment on above: Performed By: #### U AMIC #### [facility] [address] [place] [address] Dr. Marvin Reis Nitrite Ql (U) Negative Normal NEGATIVE [facility] Comment on above: Performed By: #### U AMIC #### [facility] [address] [address] [address] Marvin Reis pH (U) 5.5 [pH] Normal 5-9 [facility] Comment on above: Performed By: #### U AMIC #### [facility] [address] [address] [address] Marvin Reis SPEC GRAVITY 1.020 Normal 1.005-<=1.025 [facility] Comment on above: Performed By: #### U AMIC #### [facility] [address] [place] [address] Dr. Marvin Reis UA PROTEIN Negative Normal NEGATIVE/ TRACE [facility] Comment on above: Performed By: #### U AMIC #### [facility] [address] [place] [address] Dr. Marvin Reis Urobilinogen Qn (U) 0.2 {Robbie'U}/dL Normal 0.2 - 1. 0 [facility] Comment on above: Performed By: #### U AMIC #### [facility] [address] [place] [address] Dr. Marvin Reis CULTURE URINEon 09-13-2022 CULTURE [...] F Oxacillin >=4 R F Normal [facility] Comment on above: Performed By: #### U RCX #### [facility] [address] [place] [address] Dr. Marvin Reis UA RANDOM W/MICROSCOPICon BACTERIA TRACE Abnormal NONE SEEN [facility] Comment on above: Performed By: #### U AMIC #### [facility] [address] [place] [address] Dr. Marvin Reis Bilirubin Ql (U) Negative Normal NEGATIVE [facility] Comment on above: Performed By: #### U AMIC #### [facility] [address] [place] [address] Dr. Marvin Reis CAST NONE SEEN Normal NONE SEEN [facility] Comment on above: Performed By: #### U AMIC #### [facility] [address] [place] [address] Dr. Marvin Reis Clarity (U) CLEAR Normal CLEAR [facility] Comment on above: Performed By: #### U AMIC #### [facility] [address] [place] [address] Dr. Marvin Reis Color (U) LT. YELLOW Normal YELLOW [facility] Comment on above: Performed By: #### U AMIC #### [facility] [address] [address] [address] Marvin Reis Crystals LM Nom (Urine sed) NONE SEEN Normal NONE SEEN [facility] Comment on above: Performed By: #### U AMIC #### [facility] [address] [address] [address] Marvin Reis Epithelial cells LM Ql (Urine sed) FEW Abnormal NONE SEEN /RARE [facility] Comment on above: Performed By: #### U AMIC #### [facility] [address] [address] [address] Marvin Reis Glucose Ql (U) Negative Normal NEGATIVE [facility] Comment on above: Performed By: #### U AMIC #### [facility] [address] [address] [address] Marvin Reis Hemoglobin Ql (U) Negative Normal NEGATIVE [facility] Comment on above: Performed By: #### U AMIC #### [facility] [address] [address] [address] Marvin Reis Ketones Ql (U) Negative Normal NEGATIVE [facility] Comment on above: Performed By: #### U AMIC #### [facility] [address] [address] [address] Marvin Reis LEUKOCYTES LARGE Abnormal NEGATIVE [facility] Comment on above: Performed By: #### U AMIC #### [facility] [address] [address] [address] Marvin Reis MUCOUS NONE SEEN Normal NONE SEEN [facility] Comment on above: Performed By: #### U AMIC #### [facility] [address] [address] [address] Marvin Reis Nitrite Ql (U) Negative Normal NEGATIVE [facility] Comment on above: Performed By: #### U AMIC #### [facility] [address] [address] [address] Marvin Reis pH (U) 5.5 [pH] Normal 5-9 [facility] Comment on above: Performed By: #### U AMIC #### [facility] [address] [address] [address] Marvin Reis RBC 0-2 Normal 0-2 [facility] Comment on above: Performed By: #### U AMIC #### [facility] [address] [place] [address] Dr. Marvin Reis SPEC GRAVITY 1.025 Normal 1.005-<=1.025 [facility] Comment on above: Performed By: #### U AMIC #### [facility] [address] [place] [address] Dr. Marvin Reis UA PROTEIN Negative Normal NEGATIVE/ TRACE [facility] Comment on above: Performed By: #### U AMIC #### [facility] [address] [place] [address] Dr. Marvin Reis Urobilinogen Qn (U) 0.2 {Robbie'U}/dL Normal 0.2 - 1. 0 [facility] Comment on above: Performed By: #### U AMIC #### [facility] [address] [place] [address] Dr. Marvin Reis WBC 10-20 Abnormal NONE SEEN [facility] Comment on above: Performed By: #### U AMIC #### [facility] [address] [place] [address] Dr. Marvin Reis CULTURE URINEon 08-17-2022 CULTURE [...] Trimethoprim/Sulfamet hoxazole <=20 S F Normal [facility] Comment on above: Performed By: #### U RCX #### [facility] [address] [place] [address] Dr. Marvin Reis UA RANDOM W/MICROSCOPICon 10 -13-2022 BACTERIA MODERATE Abnormal NONE SEEN [facility] Comment on above: Performed By: #### U RCX #### [facility] [address] [address] [address] Marvin Reis Bilirubin Ql (U) Negative Normal NEGATIVE [facility] Comment on above: Performed By: #### U RCX #### [facility] [address] [place] [address] Dr. Marvin Reis CAST NONE SEEN Normal NONE SEEN [facility] Comment on above: Performed By: #### U RCX #### [facility] [address] [address] [address] Marvin Reis Clarity (U) SL CLOUDY Abnormal CLEAR [facility] Comment on above: Performed By: #### U RCX #### [facility] [address] [place] [address] Dr. Marvin Reis Color (U) LT. YELLOW Normal YELLOW [facility] Comment on above: Performed By: #### U RCX #### [facility] [address] [address] [address] Marvin Reis Crystals LM Nom (Urine sed) NONE SEEN Normal NONE SEEN [facility] Comment on above: Performed By: #### U RCX #### [facility] [address] [place] [address] Dr. Marvin Reis Epithelial cells LM Ql (Urine sed) RARE Normal NONE SEEN /RARE [facility] Comment on above: Performed By: #### U RCX #### [facility] [address] [place] [address] Dr. Marvin Reis Glucose Ql (U) Negative Normal NEGATIVE [facility] Comment on above: Performed By: #### U RCX #### [facility] [address] [address] [address] Marvin Reis Hemoglobin Ql (U) SMALL Abnormal NEGATIVE [facility] Comment on above: Performed By: #### U RCX #### [facility] [address] [place] [address] Dr. Marvin Reis Ketones Ql (U) Negative Normal NEGATIVE [facility] Comment on above: Performed By: #### U RCX #### [facility] [address] [address] [address] Marvin Reis LEUKOCYTES MODERATE Abnormal NEGATIVE [facility] Comment on above: Performed By: #### U RCX #### [facility] [address] [place] [address] Dr. Marvin Reis MUCOUS NONE SEEN Normal NONE SEEN [facility] Comment on above: Performed By: #### U RCX #### [facility] [address] [address] [address] Marvin Reis Nitrite Ql (U) Positive Abnormal NEGATIVE [facility] Comment on above: Performed By: #### U RCX #### [facility] [address] [place] [address] Dr. Marvin Reis pH (U) 6.0 [pH] Normal 5-9 [facility] Comment on above: Performed By: #### U RCX #### [facility] [address] [place] [address] Dr. Marvin Reis RBC 0-2 Normal 0-2 [facility] Comment on above: Performed By: #### U RCX #### [facility] [address] [address] [address] Marvin Reis SPEC GRAVITY 1.015 Normal 1.005-<=1.025 [facility] Comment on above: Performed By: #### U RCX #### [facility] [address] [place] [address] Dr. Marvin Reis UA PROTEIN Negative Normal NEGATIVE/ TRACE [facility] Comment on above: Performed By: #### U RCX #### [facility] [address] [place] [address] Dr. Marvin Reis Urobilinogen Qn (U) 0.2 {Robbie'U}/dL Normal 0.2 - 1. 0 [facility] Comment on above: Performed By: #### U RCX #### [facility] [address] [place] [address] Dr. Marvin Reis WBC 10-20 Abnormal NONE SEEN [facility] Comment on above: Performed By: #### U RCX #### [facility] [address] [place] [address] Dr. Marvin Reis CULTURE URINEon 08-02-2022 CULTURE [...] Trimethoprim/Sulfamet hoxazole <=20 S F Normal [facility] Comment on above: Performed By: #### U RCX #### [facility] [address] [place] [address] Dr. Marvin Reis UA RANDOM W/MICROSCOPICon BACTERIA MODERATE Abnormal NONE SEEN [facility] Comment on above: Performed By: #### U AMIC #### [facility] [address] [place] [address] Dr. Marvin Reis Bilirubin Ql (U) Negative Normal NEGATIVE [facility] Comment on above: Performed By: #### U AMIC #### [facility] [address] [place] [address] Dr. Marvin Reis CAST NONE SEEN Normal NONE SEEN [facility] Comment on above: Performed By: #### U AMIC #### [facility] [address] [place] [address] Dr. Marvin Reis Clarity (U) SL CLOUDY Abnormal CLEAR [facility] Comment on above: Performed By: #### U AMIC #### [facility] [address] [place] [address] Dr. Marvin Reis Color (U) LT. YELLOW Normal YELLOW [facility] Comment on above: Performed By: #### U AMIC #### [facility] [address] [place] [address] Dr. Marvin Reis Crystals LM Nom (Urine sed) NONE SEEN Normal NONE SEEN [facility] Comment on above: Performed By: #### U AMIC #### [facility] [address] [address] [address] Marvin Reis Epithelial cells LM Ql (Urine sed) NONE SEEN Normal NONE SEEN /RARE [facility] Comment on above: Performed By: #### U AMIC #### [facility] [address] [address] [address] Marvin Reis Glucose Ql (U) Negative Normal NEGATIVE [facility] Comment on above: Performed By: #### U AMIC #### [facility] [address] [address] [address] Marvin Reis Hemoglobin Ql (U) TRACE-INTACT Abnormal NEGATIVE [facility] Comment on above: Performed By: #### U AMIC #### [facility] [address] [place] [address] Dr. Marvin Reis Ketones Ql (U) Negative Normal NEGATIVE [facility] Comment on above: Performed By: #### U AMIC #### [facility] [address] [address] [address] Marvin Reis LEUKOCYTES MODERATE Abnormal NEGATIVE [facility] Comment on above: Performed By: #### U AMIC #### [facility] [address] [address] [address] Marvin Reis MUCOUS NONE SEEN Normal NONE SEEN [facility] Comment on above: Performed By: #### U AMIC #### [facility] [address] [address] [address] Marvin eRis Nitrite Ql (U) Positive Abnormal NEGATIVE [facility] Comment on above: Performed By: #### U AMIC #### [facility] [address] [address] [address] Marvin Reis pH (U) 6.0 [pH] Normal 5-9 [facility] Comment on above: Performed By: #### U AMIC #### [facility] [address] [address] [address] Marvin Reis RBC 0-2 Normal 0-2 [facility] Comment on above: Performed By: #### U AMIC #### [facility] [address] [place] [address] Dr. Marvin Reis SPEC GRAVITY 1.015 Normal 1.005-<=1.025 [facility] Comment on above: Performed By: #### U AMIC #### [facility] [address] [place] [address] Dr. Marvin Reis UA PROTEIN Negative Normal NEGATIVE/ TRACE [facility] Comment on above: Performed By: #### U AMIC #### [facility] [address] [place] [address] Dr. Marvin Reis Urobilinogen Qn (U) 0.2 {Robbie'U}/dL Normal 0.2 - 1. 0 [facility] Comment on above: Performed By: #### U AMIC #### [facility] [address] [place] [address] Dr. Marvin Reis WBC 20-50 Abnormal NONE SEEN [facility] Comment on above: Performed By: #### U AMIC #### [facility] [address] [place] [address] Dr. Marvin Reis CULTURE URINEon 06-27-2022 CULTURE [...] F Oxacillin >=4 R F Normal [facility] Comment on above: Performed By: #### U AMIC #### [facility] [address] [place] [address] Dr. Marvin Reis UA RANDOM W/MICROSCOPICon BACTERIA LARGE Abnormal NONE SEEN [facility] Comment on above: Performed By: #### U RCX #### [facility] [address] [address] [address] Marvin Reis Bilirubin Ql (U) Negative Normal NEGATIVE [facility] Comment on above: Performed By: #### U RCX #### [facility] [address] [address] [address] Marvin Reis CAST NONE SEEN Normal NONE SEEN [facility] Comment on above: Performed By: #### U RCX #### [facility] [address] [address] [address] Marvin Reis Clarity (U) CLEAR Normal CLEAR [facility] Comment on above: Performed By: #### U RCX #### [facility] [address] [place] [address] Dr. Marvin Reis Color (U) LT. YELLOW Normal YELLOW [facility] Comment on above: Performed By: #### U RCX #### [facility] [address] [place] [address] Dr. Marvin Reis Crystals LM Nom (Urine sed) NONE SEEN Normal NONE SEEN [facility] Comment on above: Performed By: #### U RCX #### [facility] [address] [address] [address] Marvin Reis Epithelial cells LM Ql (Urine sed) FEW Abnormal NONE SEEN /RARE [facility] Comment on above: Performed By: #### U RCX #### [facility] [address] [place] [address] Dr. Marvin Reis Glucose Ql (U) Negative Normal NEGATIVE [facility] Comment on above: Performed By: #### U RCX #### [facility] [address] [address] [address] Marvin Reis Hemoglobin Ql (U) TRACE-INTACT Abnormal NEGATIVE [facility] Comment on above: Performed By: #### U RCX #### [facility] [address] [place] [address] Dr. Marvin Reis Ketones Ql (U) Negative Normal NEGATIVE [facility] Comment on above: Performed By: #### U RCX #### [facility] [address] [address] [address] Marvin Reis LEUKOCYTES LARGE Abnormal NEGATIVE [facility] Comment on above: Performed By: #### U RCX #### [facility] [address] [place] [address] Dr. Marvin Reis MUCOUS NONE SEEN Normal NONE SEEN [facility] Comment on above: Performed By: #### U RCX #### [facility] [address] [place] [address] Dr. Marvin Reis Nitrite Ql (U) Positive Abnormal NEGATIVE [facility] Comment on above: Performed By: #### U RCX #### [facility] [address] [place] [address] Dr. Marvin Reis pH (U) 5.5 [pH] Normal 5-9 [facility] Comment on above: Performed By: #### U RCX #### [facility] [address] [place] [address] Dr. Marvin Reis RBC 2-5 Abnormal 0-2 [facility] Comment on above: Performed By: #### U RCX #### [facility] [address] [place] [address] Dr. Marvin Reis SPEC GRAVITY 1.015 Normal 1.005-<=1.025 [facility] Comment on above: Performed By: #### U RCX #### [facility] [address] [place] [address] Dr. Marvin Reis UA PROTEIN Negative Normal NEGATIVE/ TRACE [facility] Comment on above: Performed By: #### U RCX #### [facility] [address] [place] [address] Dr. Marvin Reis Urobilinogen Qn (U) 0.2 {Robbie'U}/dL Normal 0.2 - 1. 0 [facility] Comment on above: Performed By: #### U RCX #### [facility] [address] [place] [address] Dr. Marvin Reis WBC (U) [#/Vol] /uL Abnormal NONE SEEN [facility] Comment on above: Performed By: #### U RCX #### [facility] [address] [place] [address] Dr. Marvin Reis CULTURE URINEon 05-27-2022 CULTURE [...] F Oxacillin >=4 R F Normal [facility] Comment on above: Performed By: #### U RCX #### [facility] [address] [place] [address] Dr. Marvin Reis UA RANDOM W/MICROSCOPICon BACTERIA MODERATE Abnormal NONE SEEN [facility] Comment on above: Performed By: #### U RCX #### [facility] [address] [place] [address] Dr. Marvin Reis Bilirubin Ql (U) Negative Normal NEGATIVE [facility] Comment on above: Performed By: #### U RCX #### [facility] [address] [place] [address] Dr. Marvin Reis CAST NONE SEEN Normal NONE SEEN [facility] Comment on above: Performed By: #### U RCX #### [facility] [address] [place] [address] Dr. Marvin Reis Clarity (U) SL CLOUDY Abnormal CLEAR [facility] Comment on above: Performed By: #### U RCX #### [facility] [address] [place] [address] Dr. Marvin Reis Color (U) LT. YELLOW Normal YELLOW [facility] Comment on above: Performed By: #### U RCX #### [facility] [address] [place] [address] Dr. Marvin Reis Crystals LM Nom (Urine sed) NONE SEEN Normal NONE SEEN [facility] Comment on above: Performed By: #### U RCX #### [facility] [address] [address] [address] Marvin Reis Epithelial cells LM Ql (Urine sed) FEW Abnormal NONE SEEN /RARE [facility] Comment on above: Performed By: #### U RCX #### [facility] [address] [address] [address] Marvin Reis Glucose Ql (U) Negative Normal NEGATIVE [facility] Comment on above: Performed By: #### U RCX #### [facility] [address] [address] [address] Marvin Reis Hemoglobin Ql (U) SMALL Abnormal NEGATIVE [facility] Comment on above: Performed By: #### U RCX #### [facility] [address] [place] [address] Dr. Marvin Reis Ketones Ql (U) Negative Normal NEGATIVE [facility] Comment on above: Performed By: #### U RCX #### [facility] [address] [address] [address] Marvin Reis LEUKOCYTES LARGE Abnormal NEGATIVE [facility] Comment on above: Performed By: #### U RCX #### [facility] [address] [address] [address] Marvin Reis MUCOUS TRACE Abnormal NONE SEEN [facility] Comment on above: Performed By: #### U RCX #### [facility] [address] [address] [address] Marvin Reis Nitrite Ql (U) Negative Normal NEGATIVE [facility] Comment on above: Performed By: #### U RCX #### [facility] [address] [address] [address] Marvin Reis pH (U) 6.0 [pH] Normal 5-9 [facility] Comment on above: Performed By: #### U RCX #### [facility] [address] [address] [address] Marvin Reis RBC 2-5 Abnormal 0-2 [facility] Comment on above: Performed By: #### U RCX #### [facility] [address] [address] [address] Marvin Reis SPEC GRAVITY 1.010 Normal 1.005-<=1.025 [facility] Comment on above: Performed By: #### U RCX #### [facility] [address] [address] [address] Marvin Reis UA PROTEIN Negative Normal NEGATIVE/ TRACE [facility] Comment on above: Performed By: #### U RCX #### [facility] [address] [address] [address] Marvin Reis Urobilinogen Qn (U) 0.2 {Robbie'U}/dL Normal 0.2 - 1. 0 [facility] Comment on above: Performed By: #### U RCX #### [facility] [address] [place] [address] Dr. Marvin Reis WBC 50-75 Abnormal NONE SEEN [facility] Comment on above: Performed By: #### U RCX #### [facility] [address] [place] [address] Dr. Marvin Reis CULTURE URINEon 04-18-2022 CULTURE [...] F Oxacillin >=4 R F Normal [facility] Comment on above: Performed By: #### U RCX #### [facility] [address] [address] [address] Marvin Reis UA RANDOM W/MICROSCOPICon BACTERIA TRACE Abnormal NONE SEEN [facility] Comment on above: Performed By: #### U AMIC #### [facility] [address] [address] [address] Marvin Reis Bilirubin Ql (U) Negative Normal NEGATIVE [facility] Comment on above: Performed By: #### U AMIC #### [facility] [address] [address] [address] Marvin Reis CAST NONE SEEN Normal NONE SEEN [facility] Comment on above: Performed By: #### U AMIC #### [facility] [address] [address] [address] Marvin Reis Clarity (U) CLEAR Normal CLEAR [facility] Comment on above: Performed By: #### U AMIC #### [facility] [address] [address] [address] Marvin Reis Color (U) LT. YELLOW Normal YELLOW [facility] Comment on above: Performed By: #### U AMIC #### [facility] [address] [address] [address] Marvin Reis Crystals LM Nom (Urine sed) NONE SEEN Normal NONE SEEN [facility] Comment on above: Performed By: #### U AMIC #### [facility] [address] [address] [address] Marvin Reis Epithelial cells LM Ql (Urine sed) FEW Abnormal NONE SEEN /RARE [facility] Comment on above: Performed By: #### U AMIC #### [facility] [address] [address] [address] Marvin Reis Glucose Ql (U) Negative Normal NEGATIVE [facility] Comment on above: Performed By: #### U AMIC #### [facility] [address] [address] [address] Marvin Reis Hemoglobin Ql (U) TRACE-INTACT Abnormal NEGATIVE [facility] Comment on above: Performed By: #### U AMIC #### [facility] [address] [address] [address] Marvin Reis Ketones Ql (U) Negative Normal NEGATIVE [facility] Comment on above: Performed By: #### U AMIC #### [facility] [address] [place] [address] Dr. Marvin Reis LEUKOCYTES SMALL Abnormal NEGATIVE [facility] Comment on above: Performed By: #### U AMIC #### [facility] [address] [place] [address] Dr. Marvin Reis MUCOUS NONE SEEN Normal NONE SEEN [facility] Comment on above: Performed By: #### U AMIC #### [facility] [address] [place] [address] Dr. Marvin Reis Nitrite Ql (U) Negative Normal NEGATIVE [facility] Comment on above: Performed By: #### U AMIC #### [facility] [address] [place] [address] Dr. Marvin Reis pH (U) 6.0 [pH] Normal 5-9 [facility] Comment on above: Performed By: #### U AMIC #### [facility] [address] [place] [address] Dr. Marvin Reis RBC 0-2 Normal 0-2 [facility] Comment on above: Performed By: #### U AMIC #### [facility] [address] [place] [address] Dr. Marvin Reis SPEC GRAVITY 1.010 Normal 1.005-<=1.025 [facility] Comment on above: Performed By: #### U AMIC #### [facility] [address] [place] [address] Dr. Marvin Reis UA PROTEIN Negative Normal NEGATIVE/ TRACE [facility] Comment on above: Performed By: #### U AMIC #### [facility] [address] [place] [address] Dr. Marvin Reis Urobilinogen Qn (U) 0.2 {Robbie'U}/dL Normal 0.2 - 1. 0 [facility] Comment on above: Performed By: #### U AMIC #### [facility] [address] [place] [address] Dr. Marvin Reis WBC 2-5 Abnormal NONE SEEN [facility] Comment on above: Performed By: #### U AMIC #### [facility] [address] [place] [address] Dr. Marvin Reis CULTURE URINEon 03-27-2022 CULTURE [...] Trimethoprim/Sulfamet hoxazole >=320 R F Normal [facility] Comment on above: Performed By: #### U RCX #### [facility] [address] [place] [address] Dr. Marvin Reis UA RANDOM W/MICROSCOPICon BACTERIA TRACE Abnormal NONE SEEN [facility] Comment on above: Performed By: #### U RCX #### [facility] [address] [place] [address] Dr. Marvin Reis Bilirubin Ql (U) Negative Normal NEGATIVE [facility] Comment on above: Performed By: #### U RCX #### [facility] [address] [place] [address] Dr. Marvin Reis CAST NONE SEEN Normal NONE SEEN [facility] Comment on above: Performed By: #### U RCX #### [facility] [address] [place] [address] Dr. Marvin Reis Clarity (U) CLEAR Normal CLEAR [facility] Comment on above: Performed By: #### U RCX #### [facility] [address] [address] [address] Marvin Reis Color (U) LT. YELLOW Normal YELLOW [facility] Comment on above: Performed By: #### U RCX #### [facility] [address] [place] [address] Dr. Marvin Reis Crystals LM Nom (Urine sed) NONE SEEN Normal NONE SEEN [facility] Comment on above: Performed By: #### U RCX #### [facility] [address] [address] [address] Marvin Reis Epithelial cells LM Ql (Urine sed) FEW Abnormal NONE SEEN /RARE [facility] Comment on above: Performed By: #### U RCX #### [facility] [address] [place] [address] Dr. Marvin Reis Glucose Ql (U) Negative Normal NEGATIVE [facility] Comment on above: Performed By: #### U RCX #### [facility] [address] [place] [address] Dr. Marvin Reis Hemoglobin Ql (U) SMALL Abnormal NEGATIVE [facility] Comment on above: Performed By: #### U RCX #### [facility] [address] [place] [address] Dr. Marvin Reis Ketones Ql (U) Negative Normal NEGATIVE [facility] Comment on above: Performed By: #### U RCX #### [facility] [address] [place] [address] Dr. Marvin Reis LEUKOCYTES MODERATE Abnormal NEGATIVE [facility] Comment on above: Performed By: #### U RCX #### [facility] [address] [place] [address] Dr. Marvin Reis MUCOUS NONE SEEN Normal NONE SEEN [facility] Comment on above: Performed By: #### U RCX #### [facility] [address] [place] [address] Dr. Marvin Reis Nitrite Ql (U) Negative Normal NEGATIVE [facility] Comment on above: Performed By: #### U RCX #### [facility] [address] [place] [address] Dr. Marvin Reis pH (U) 5.5 [pH] Normal 5-9 [facility] Comment on above: Performed By: #### U RCX #### [facility] [address] [place] [address] Dr. Marvin Reis RBC NONE SEEN Abnormal 0-2 [facility] Comment on above: Performed By: #### U RCX #### [facility] [address] [place] [address] Dr. Marvin Reis SPEC GRAVITY 1.015 Normal 1.005-<=1.025 [facility] Comment on above: Performed By: #### U RCX #### [facility] [address] [place] [address] Dr. Marvin Reis UA PROTEIN Negative Normal NEGATIVE/ TRACE [facility] Comment on above: Performed By: #### U RCX #### [facility] [address] [place] [address] Dr. Marvin Reis Urobilinogen Qn (U) 0.2 {Robbie'U}/dL Normal 0.2 - 1. 0 [facility] Comment on above: Performed By: #### U RCX #### [facility] [address] [place] [address] Dr. Marvin Reis WBC 20-50 Abnormal NONE SEEN [facility] Comment on above: Performed By: #### U RCX #### [facility] [address] [place] [address] Dr. Marvin Reis YEAST PRESENT Abnormal NONE SEEN [facility] Comment on above: Performed By: #### U RCX #### [facility] [address] [place] [address] Dr. Marvin Reis CULTURE URINEon 03-18-2022 CULTURE URINE Culture Observations : No growth Normal [facility] Comment on above: Performed By: #### U RCX #### [facility] [address] [place] [address] Dr. Marvin Reis UA RANDOM W/MICROSCOPICon BACTERIA NONE SEEN Normal NONE SEEN [facility] Comment on above: Performed By: #### U AMIC #### [facility] [address] [address] [address] Marvin Reis Bilirubin Ql (U) Negative Normal NEGATIVE [facility] Comment on above: Performed By: #### U AMIC #### [facility] [address] [address] [address] Marvin Reis CAST NONE SEEN Normal NONE SEEN [facility] Comment on above: Performed By: #### U AMIC #### [facility] [address] [place] [address] Dr. Marvin Reis Clarity (U) CLOUDY Abnormal CLEAR [facility] Comment on above: Performed By: #### U AMIC #### [facility] [address] [address] [address] Marvin Reis Color (U) LT. YELLOW Normal YELLOW [facility] Comment on above: Performed By: #### U AMIC #### [facility] [address] [place] [address] Dr. Marvin Reis Crystals LM Nom (Urine sed) NONE SEEN Normal NONE SEEN [facility] Comment on above: Performed By: #### U AMIC #### [facility] [address] [place] [address] Dr. Marvin Reis Epithelial cells LM Ql (Urine sed) RARE Normal NONE SEEN /RARE [facility] Comment on above: Performed By: #### U AMIC #### [facility] [address] [place] [address] Dr. Marvin Reis Glucose Ql (U) Negative Normal NEGATIVE [facility] Comment on above: Performed By: #### U AMIC #### [facility] [address] [place] [address] Dr. Marvin Reis Hemoglobin Ql (U) TRACE-INTACT Abnormal NEGATIVE [facility] Comment on above: Performed By: #### U AMIC #### [facility] [address] [place] [address] Dr. Marvin Reis Ketones Ql (U) Negative Normal NEGATIVE [facility] Comment on above: Performed By: #### U AMIC #### [facility] [address] [place] [address] Dr. Marvin Reis LEUKOCYTES MODERATE Abnormal NEGATIVE [facility] Comment on above: Performed By: #### U AMIC #### [facility] [address] [address] [address] Marvin Reis MUCOUS NONE SEEN Normal NONE SEEN [facility] Comment on above: Performed By: #### U AMIC #### [facility] [address] [address] [address] Marvin Reis Nitrite Ql (U) Negative Normal NEGATIVE [facility] Comment on above: Performed By: #### U AMIC #### [facility] [address] [address] [address] Marvin Reis pH (U) 6.0 [pH] Normal 5-9 [facility] Comment on above: Performed By: #### U AMIC #### [facility] [address] [place] [address] Dr. Marvin Reis RBC NONE SEEN Abnormal 0-2 [facility] Comment on above: Performed By: #### U AMIC #### [facility] [address] [place] [address] Dr. Marvin Reis SPEC GRAVITY 1.015 Normal 1.005-<=1.025 [facility] Comment on above: Performed By: #### U AMIC #### [facility] [address] [address] [address] Marvin Reis UA PROTEIN Negative Normal NEGATIVE/ TRACE [facility] Comment on above: Performed By: #### U AMIC #### [facility] [address] [address] [address] Marvin Reis Urobilinogen Qn (U) 0.2 {Robbie'U}/dL Normal 0.2 - 1. 0 [facility] Comment on above: Performed By: #### U AMIC #### [facility] [address] [place] [address] Dr. Marvin Reis WBC 10-20 Abnormal NONE SEEN [facility] Comment on above: Performed By: #### U AMIC #### [facility] [address] [place] [address] Dr. Marvin Reis Coding Summary.on 06-21-2020 Coding Summary. CODING DATE: 06/21/2020 FINAL [facility] STATUS: PAYOR: Worker's Compensation ADMIT DX: [...] Hopper CphT Date Saved: 06/21/2020 12:01 pm [facility] PT - Assessmentson 0 PT - Assessments [id number]# 1.00CD:127 [facility] PT - Orderson 06-20-2020 PT - Orders [id number]# 1.00CD:127 [facility] PT - Workers Compon 06-20-20 20 PT - Workers Comp [id number] 1.00CD:127 [facility] Encounters Encounter Date Encounter Type Care Provider Facility Start: 03-10-2023 End: 03-11-2023 [facility] Start: 03-03-2023 End: 03-03-[address] [...] Facility:[facility] Payers Date Payer Category Payer Medicare [id number] 1961 Unknown [id number] 1960 Unknown [id number] 2.16.84 0.1.868552.3.579.2.593 1960 Unknown [id number] 2.16.84 0.1.695108.3.579.2.593 1958 Unknown [id number] 2.16.84 0.1.841169.3.579.2.593 1958 Unknown [id number] 2.16.84 0.1.749071.3.579.2.593 1958 Unknown [id number] 2.16.84 0.1.129977.3.579.2.593 1958 Unknown [id number] 2.16.84 0.1.981868.3.579.2.593 1958 Unknown [id number] 2.16.84 0.1.474216.3.579.2.593 1958 Unknown [id number] 2.16.84 0.1.307358.3.579.2.593 1958 Unknown [id number] 2.16.84 0.1.362848.3.579.2.593 1958 Unknown [id number] 2.16.84 0.1.700837.3.579.2.593 1958 Unknown [id number] 2.16.84 0.1.985435.3.579.2.593 1958 Unknown [id number] 2.16.84 0.1.520985.3.579.2.593 1958 Unknown [id number] 2.16.84 0.1.492720.3.579.2.593 1958 Unknown [id number] 2.16.84 0.1.335135.3.579.2.593 1958 Unknown [id number] 2.16.84 0.1.836491.3.579.2.593 1958 Unknown [id number] 2.16.84 0.1.616324.3.579.2.593 1958 Unknown [id number] 2.16.84 0.1.451514.3.579.2.593 1958 Unknown [id number] 2.16.84 0.1.250967.3.579.2.593 1958 Unknown [id number] 2.16.84 0.1.882496.3.579.2.593 Summary Purpose Family History No Family History [...] section and content) DATE CREATED AUTHOR 09/19/2020 [facility] DATE CREATED AUTHOR AUTHOR'S ORGANIZ ATION 03/06/2023 [facility] DATE CREATED AUTHOR AUTHOR'S ORGANIZ ATION 03/11/[address] [facility] DATE CREATED AUTHOR AUTHOR'S ORGANIZ ATION 06/07/2023 [facility] FOR RECORDS PERTAINING TO PATIENTS WHO [...] BE BASED ON THE PRIMARY CLINICAL RECORDS. [facility]. provides no warranty or guarantee [id number] the accuracy [phone] completeness of information in this [id number]
--- OUTSIDE RECORDS SUMMARY | 2024-03-26 13:16 | XMS_ITS ---
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 Name Role Phone HOY ., DR WEBBER [...] DR WEBBER Attending Unavailable HOY ., DR LAWANDA Rincon Unavailable HOY ., DR WEBBER Primary Care [...] source) ceFAZolin Drug Allergy 04-21-20 13 [facility] (1 source) Cilastatin / Imipenem Drug Allergy 04-21-20 13 [facility] (1 source) Readi-Cat Drug allergy (disorder) 04-21-20 13 [facility] (1 source) ceFAZolin; Translations: [CEFAZOLIN] Drug Allergy 12-01-19 13 [facility] (1 source) Cephalexin; Translations: [CEPHALEXIN MONOHYDRATE] Drug Allergy 08-03-20 09 [facility] (1 source) Promazine; Translations: [PROMAZINE] Drug Allergy 12-01-19 13 [facility] (1 source) Sulfamethoxazole / Trimethoprim; Translations: [SULFAMETHOXAZOLE-TR IMETHOPRIM] Drug Allergy 03-10-20 23 [facility] (1 source) IODINATED CONTRAST MEDIA; Translations: [IODINATED CONTRAST MEDIA] Propensity to adverse reactions to drug (disorder) 12-01-19 13 [facility] Encounters Encounter Date Encounter Type Care Provider Facility Start: 03-10-2023 End: 03-11-2023 ambulatory RACHEL MERCEDES [facility] Start: 03-03-2023 End: 03-03-[address] LAWANDA GROVE . Facility:[facility] Start: 02-10-2023 End: 02-10-[address] LAWANDA GROVE . Facility:[facility] Start: 01-21-2023 End: 01-21-[address] LAWANDA GROVE . Facility:[facility] Start: 01-07-2023 End: 01-07-[address] LAWANDA GROVE . Facility:[facility] Start: 12-23-2022 End: 12-23-[address] LAWANDA GROVE . Facility:[facility] Start: 12-03-2022 End: 12-04-[address] LAWANAD GROVE . Facility:[facility] Start: 11-20-2022 End: 11-21-2022 [...] Facility:[facility] Payers Date Payer Category Payer Medicare [id number] 1961 Unknown [id number] 1960 Unknown [id number] 2.16.84 [id number] 1960 Unknown [id number] 2.16.84 0.1.512747.3.579.2.593 1960 Unknown [id number] 2.16.84 0.1.884483.3.579.2.593 1960 Unknown [id number] 2.16.84 0.1.407265.3.579.2.593 1960 Unknown [id number] 2.16.84 0.1.064148.3.579.2.593 1960 Unknown [id number] 2.16.84 0.1.552914.3.579.2.593 1960 Unknown [id number] 2.16.84 0.1.941424.3.579.2.593 1960 Unknown [id number] 2.16.84 0.1.058075.3.579.2.593 1960 Unknown [id number] 2.16.84 0.1.688313.3.579.2.593 1960 Unknown [id number] 2.16.84 0.1.323007.3.579.2.593 1960 Unknown [id number] 2.16.84 0.1.449273.3.579.2.593 1960 Unknown [id number] 2.16.84 0.1.853250.3.579.2.593 1960 Unknown [id number] 2.16.84 0.1.520715.3.579.2.593 1960 Unknown [id number] 2.16.84 0.1.148115.3.579.2.593 1960 Unknown [id number] 2.16.84 0.1.564275.3.579.2.593 1960 Unknown [id number] 2.16.84 0.1.779321.3.579.2.593 1960 Unknown [id number] 2.16.84 0.1.316768.3.579.2.593 1958 Unknown [id number] 2.16.84 0.1.356604.3.579.2.593 1960 Unknown [id number] 2.16.84 0.1.243821.3.579.2.593 Problems Active Problems Problem Classification Problem Date [...] RESISTANT TO ALL B-LACTAM DRUGS. PERFORMED BY: [facility] [address] [place] [address] PATHOLOGIST PHYSICIAN PEDIATRICIAN MARLA VEGA M.D. [facility] [place] Comment on above: Performed By: #### A MAI LAYNE #### [address] Gram Stainon 06-03-2023 Microscopic observation Gram stain Nom (Unsp spec) Gram Stain Result No Bacteria Seen PERFORMED BY: [place] [address] PATHOLOGIST PHYSICIAN PEDIATRICIAN MARLA VEGA M.D. [facility] [place] Comment on above: Performed By: #### A ROVERTO, MAI #### [address] CULTURE URINEon 03-06-2023 CULTURE URINE Isolate 1 [...] F Levofloxacin 2 S F Normal [facility] Comment on above: Performed By: #### U RCX #### [facility] [address] [place] [address] Dr. Marvin Reis UA RANDOM W/MICROSCOPICon BACTERIA SMALL Abnormal NONE SEEN [facility] Comment on above: Performed By: #### U AMIC #### [facility] [id number] Marvin Reis Bilirubin Ql (U) Negative Normal NEGATIVE [facility] Comment on above: Performed By: #### U AMIC #### [facility] [address] [address] [address] Marvin Reis CAST NONE SEEN Normal NONE SEEN [facility] Comment on above: Performed By: #### U AMIC #### [facility] [address] [address] [address] Marvin Reis Clarity (U) CLEAR Normal CLEAR [facility] Comment on above: Performed By: #### U AMIC #### [facility] [address] [address] [address] Marvin Reis Color (U) LT. YELLOW Normal YELLOW [facility] Comment on above: Performed By: #### U AMIC #### [facility] [address] [address] [address] Marvin Reis Crystals LM Nom (Urine sed) NONE SEEN Normal NONE SEEN [facility] Comment on above: Performed By: #### U AMIC #### [facility] [address] [address] [address] Marvin Reis Epithelial cells LM Ql (Urine sed) RARE Normal NONE SEEN /RARE [facility] Comment on above: Performed By: #### U AMIC #### [facility] [address] [place] [address] Dr. Marvin Reis Glucose Ql (U) Negative Normal NEGATIVE [facility] Comment on above: Performed By: #### U AMIC #### [facility] [address] [place] [address] Dr. Marvin Reis Hemoglobin Ql (U) Negative Normal NEGATIVE [facility] Comment on above: Performed By: #### U AMIC #### [facility] [address] [address] [address] Marvin Reis Ketones Ql (U) Negative Normal NEGATIVE [facility] Comment on above: Performed By: #### U AMIC #### [facility] [address] [address] [address] Marvin Reis LEUKOCYTES SMALL Abnormal NEGATIVE [facility] Comment on above: Performed By: #### U AMIC #### [facility] [address] [address] [address] Marvin Reis MUCOUS NONE SEEN Normal NONE SEEN [facility] Comment on above: Performed By: #### U AMIC #### [facility] [address] [address] [address] Marvin Reis Nitrite Ql (U) Negative Normal NEGATIVE [facility] Comment on above: Performed By: #### U AMIC #### [facility] [address] [place] [address] Dr. Marvin Reis pH (U) 6.0 [pH] Normal 5-9 [facility] Comment on above: Performed By: #### U AMIC #### [facility] [address] [place] [address] Dr. Marvin Reis RBC 0-2 Normal 0-2 [facility] Comment on above: Performed By: #### U AMIC #### [facility] [address] [place] [address] Dr. Marvin Reis SPEC GRAVITY 1.010 Normal 1.005-<=1.025 [facility] Comment on above: Performed By: #### U AMIC #### [facility] [address] [address] [address] Marvin Reis UA PROTEIN Negative Normal NEGATIVE/ TRACE [facility] Comment on above: Performed By: #### U AMIC #### [facility] [address] [place] [address] Dr. Marvin Reis Urobilinogen Qn (U) 0.2 {Robbie'U}/dL Normal 0.2 - 1. 0 [facility] Comment on above: Performed By: #### U AMIC #### [facility] [address] [place] [address] Dr. Marvin Reis WBC 5-10 Abnormal NONE SEEN [facility] Comment on above: Performed By: #### U AMIC #### [facility] [address] [place] [address] Dr. Marvin Reis CULTURE URINEon 02-13-2023 CULTURE [...] F Levofloxacin 2 S F Normal [facility] Comment on above: Performed By: #### U RCX #### [facility] [address] [place] [address] Dr. Marvin Reis UA RANDOM W/MICROSCOPICon BACTERIA MODERATE Abnormal NONE SEEN [facility] Comment on above: Performed By: #### U AMIC #### [facility] [address] [place] [address] Dr. Marvin Reis Bilirubin Ql (U) Negative Normal NEGATIVE [facility] Comment on above: Performed By: #### U AMIC #### [facility] [address] [place] [address] Dr. Marvin Reis CAST NONE SEEN Normal NONE SEEN [facility] Comment on above: Performed By: #### U AMIC #### [facility] [address] [place] [address] Dr. Marvin Reis Clarity (U) CLEAR Normal CLEAR [facility] Comment on above: Performed By: #### U AMIC #### [facility] [address] [place] [address] Dr. Marvin Reis Color (U) LT. YELLOW Normal YELLOW [facility] Comment on above: Performed By: #### U AMIC #### [facility] [address] [place] [address] Dr. Marvin Reis Crystals LM Nom (Urine sed) NONE SEEN Normal NONE SEEN [facility] Comment on above: Performed By: #### U AMIC #### [facility] [address] [address] [address] Marvin Reis Epithelial cells LM Ql (Urine sed) MODERATE Abnormal NONE SEEN /RARE [facility] Comment on above: Performed By: #### U AMIC #### [facility] [address] [address] [address] Marvin Reis Glucose Ql (U) Negative Normal NEGATIVE [facility] Comment on above: Performed By: #### U AMIC #### [facility] [address] [address] [address] Marvin Reis Hemoglobin Ql (U) SMALL Abnormal NEGATIVE [facility] Comment on above: Performed By: #### U AMIC #### [facility] [address] [place] [address] Dr. Marvin Reis Ketones Ql (U) Negative Normal NEGATIVE [facility] Comment on above: Performed By: #### U AMIC #### [facility] [address] [address] [address] Marvin Reis LEUKOCYTES LARGE Abnormal NEGATIVE [facility] Comment on above: Performed By: #### U AMIC #### [facility] [address] [address] [address] Marvin Reis MUCOUS NONE SEEN Normal NONE SEEN [facility] Comment on above: Performed By: #### U AMIC #### [facility] [address] [address] [address] Marvin Reis Nitrite Ql (U) Positive Abnormal NEGATIVE [facility] Comment on above: Performed By: #### U AMIC #### [facility] [address] [address] [address] Marvin Reis pH (U) 5.5 [pH] Normal 5-9 [facility] Comment on above: Performed By: #### U AMIC #### [facility] [address] [address] [address] Marvin Reis RBC 5-10 Abnormal 0-2 [facility] Comment on above: Performed By: #### U AMIC #### [facility] [address] [address] [address] Marvin Reis SPEC GRAVITY 1.015 Normal 1.005-<=1.025 [facility] Comment on above: Performed By: #### U AMIC #### [facility] [address] [address] [address] Marvin Reis UA PROTEIN Negative Normal NEGATIVE/ TRACE [facility] Comment on above: Performed By: #### U AMIC #### [facility] [address] [address] [address] Marvin Reis Urobilinogen Qn (U) 0.2 {Robbie'U}/dL Normal 0.2 - 1. 0 [facility] Comment on above: Performed By: #### U AMIC #### [facility] [address] [place] [address] Dr. Marvin Reis WBC 50-75 Abnormal NONE SEEN [facility] Comment on above: Performed By: #### U AMIC #### [facility] [address] [address] [address] Marvin Reis CULTURE URINEon 01-23-2023 CULTURE [...] Trimethoprim/Sulfamet hoxazole <=10 S F Normal [facility] Comment on above: Performed By: #### U AMIC #### [facility] [address] [address] [address] Marvin Reis UA RANDOM W/MICROSCOPICon BACTERIA TRACE Abnormal NONE SEEN [facility] Comment on above: Performed By: #### U AMIC #### [facility] [address] [address] [address] Marvin Reis Bilirubin Ql (U) Negative Normal NEGATIVE [facility] Comment on above: Performed By: #### U AMIC #### [facility] [address] [place] [address] Dr. Marvin Reis CAST NONE SEEN Normal NONE SEEN [facility] Comment on above: Performed By: #### U AMIC #### [facility] [address] [address] [address] Marvin Reis Clarity (U) SL CLOUDY Abnormal CLEAR [facility] Comment on above: Performed By: #### U AMIC #### [facility] [address] [address] [address] Marvin Reis Color (U) LT. YELLOW Normal YELLOW [facility] Comment on above: Performed By: #### U AMIC #### [facility] [address] [address] [address] Marvin Reis Crystals LM Nom (Urine sed) NONE SEEN Normal NONE SEEN [facility] Comment on above: Performed By: #### U AMIC #### [facility] [address] [place] [address] Dr. Marvin Reis Epithelial cells LM Ql (Urine sed) NONE SEEN Normal NONE SEEN /RARE [facility] Comment on above: Performed By: #### U AMIC #### [facility] [address] [place] [address] Dr. Marvin Reis Glucose Ql (U) Negative Normal NEGATIVE [facility] Comment on above: Performed By: #### U AMIC #### [facility] [address] [address] [address] Marvin Reis Hemoglobin Ql (U) Negative Normal NEGATIVE [facility] Comment on above: Performed By: #### U AMIC #### [facility] [address] [place] [address] Dr. Marvin Reis Ketones Ql (U) Negative Normal NEGATIVE [facility] Comment on above: Performed By: #### U AMIC #### [facility] [address] [address] [address] Marvin Reis LEUKOCYTES TRACE Abnormal NEGATIVE [facility] Comment on above: Performed By: #### U AMIC #### [facility] [address] [place] [address] Dr. Marvin Reis MUCOUS NONE SEEN Normal NONE SEEN [facility] Comment on above: Performed By: #### U AMIC #### [facility] [address] [address] [address] Marvin Reis Nitrite Ql (U) Negative Normal NEGATIVE [facility] Comment on above: Performed By: #### U AMIC #### [facility] [address] [place] [address] Dr. Marvin Reis pH (U) 6.0 [pH] Normal 5-9 [facility] Comment on above: Performed By: #### U AMIC #### [facility] [address] [place] [address] Dr. Marvin Reis RBC NONE SEEN Abnormal 0-2 [facility] Comment on above: Performed By: #### U AMIC #### [facility] [address] [place] [address] Dr. Marvin Reis SPEC GRAVITY 1.020 Normal 1.005-<=1.025 [facility] Comment on above: Performed By: #### U AMIC #### [facility] [address] [place] [address] Dr. Marvin Reis UA PROTEIN Negative Normal NEGATIVE/ TRACE [facility] Comment on above: Performed By: #### U AMIC #### [facility] [address] [place] [address] Dr. Marvin Reis Urobilinogen Qn (U) 0.2 {Robbie'U}/dL Normal 0.2 - 1. 0 [facility] Comment on above: Performed By: #### U AMIC #### [facility] [address] [place] [address] Dr. Marvin Reis WBC 10-20 Abnormal NONE SEEN [facility] Comment on above: Performed By: #### U AMIC #### [facility] [address] [place] [address] Dr. Marvin Reis CULTURE URINEon 01-07-2023 CULTURE URINE Isolate 1 Dawna albicans 10,000 cfu/mL of Normal [facility] Comment on above: Performed By: #### U RCX #### [facility] [address] [place] [address] Dr. Marvin Reis UA RANDOM W/MICROSCOPICon BACTERIA TRACE Abnormal NONE SEEN [facility] Comment on above: Performed By: #### U AMIC #### [facility] [address] [place] [address] Dr. Marvin Reis Bilirubin Ql (U) Negative Normal NEGATIVE [facility] Comment on above: Performed By: #### U AMIC #### [facility] [address] [place] [address] Dr. Marvin Reis CA OX CRYSTALS RARE Normal [facility] Comment on above: Performed By: #### U AMIC #### [facility] [address] [place] [address] Dr. Marvin Reis CAST NONE SEEN Normal NONE SEEN [facility] Comment on above: Performed By: #### U AMIC #### [facility] [address] [place] [address] Dr. Marvin Reis Clarity (U) CLEAR Normal CLEAR [facility] Comment on above: Performed By: #### U AMIC #### [facility] [address] [place] [address] Dr. Marvin Reis Color (U) LT. YELLOW Normal YELLOW [facility] Comment on above: Performed By: #### U AMIC #### [facility] [address] [address] [address] Marvin Reis Crystals LM Nom (Urine sed) SEEN Abnormal NONE SEEN [facility] Comment on above: Performed By: #### U AMIC #### [facility] [address] [address] [address] Marvin Reis Epithelial cells LM Ql (Urine sed) FEW Abnormal NONE SEEN /RARE [facility] Comment on above: Performed By: #### U AMIC #### [facility] [address] [address] [address] Marvin Reis Glucose Ql (U) Negative Normal NEGATIVE [facility] Comment on above: Performed By: #### U AMIC #### [facility] [address] [place] [address] Dr. Marvin Reis Hemoglobin Ql (U) Negative Normal NEGATIVE [facility] Comment on above: Performed By: #### U AMIC #### [facility] [address] [address] [address] Marvin Reis Ketones Ql (U) Negative Normal NEGATIVE [facility] Comment on above: Performed By: #### U AMIC #### [facility] [address] [address] [address] Marvin Reis LEUKOCYTES SMALL Abnormal NEGATIVE [facility] Comment on above: Performed By: #### U AMIC #### [facility] [address] [address] [address] Marvin Reis MUCOUS NONE SEEN Normal NONE SEEN [facility] Comment on above: Performed By: #### U AMIC #### [facility] [address] [address] [address] Marvin Reis Nitrite Ql (U) Negative Normal NEGATIVE [facility] Comment on above: Performed By: #### U AMIC #### [facility] [address] [place] [address] Dr. Marvin Reis pH (U) 5.5 [pH] Normal 5-9 [facility] Comment on above: Performed By: #### U AMIC #### [facility] [address] [place] [address] Dr. Marvin Reis RBC 0-2 Normal 0-2 [facility] Comment on above: Performed By: #### U AMIC #### [facility] [address] [place] [address] Dr. Marvin Reis SPEC GRAVITY 1.015 Normal 1.005-<=1.025 [facility] Comment on above: Performed By: #### U AMIC #### [facility] [address] [place] [address] Dr. Marvin Reis UA PROTEIN Negative Normal NEGATIVE/ TRACE [facility] Comment on above: Performed By: #### U AMIC #### [facility] [address] [place] [address] Dr. Marvin Reis Urobilinogen Qn (U) 0.2 {Robbie'U}/dL Normal 0.2 - 1. 0 [facility] Comment on above: Performed By: #### U AMIC #### [facility] [address] [place] [address] Dr. Marvin Reis WBC 50-75 Abnormal NONE SEEN [facility] Comment on above: Performed By: #### U AMIC #### [facility] [address] [place] [address] Dr. Marvin Reis YEAST PRESENT Abnormal NONE SEEN [facility] Comment on above: Performed By: #### U AMIC #### [facility] [address] [place] [address] Dr. Marvin Reis CULTURE URINEon 12-25-2022 CULTURE [...] Trimethoprim/Sulfamet hoxazole >=320 R F Normal [facility] Comment on above: Performed By: #### U RCX #### [facility] [address] [place] [address] Dr. Marvin Reis UA RANDOM W/MICROSCOPICon BACTERIA NONE SEEN Normal NONE SEEN [facility] Comment on above: Performed By: #### U AMIC #### [facility] [address] [place] [address] Dr. Marvin Reis Bilirubin Ql (U) Negative Normal NEGATIVE [facility] Comment on above: Performed By: #### U AMIC #### [facility] [address] [place] [address] Dr. Marvin Reis CAST NONE SEEN Normal NONE SEEN [facility] Comment on above: Performed By: #### U AMIC #### [facility] [address] [place] [address] Dr. Marvin Reis Clarity (U) CLEAR Normal CLEAR [facility] Comment on above: Performed By: #### U AMIC #### [facility] [address] [place] [address] Dr. Marvin Reis Color (U) LT. YELLOW Normal YELLOW [facility] Comment on above: Performed By: #### U AMIC #### [facility] [address] [place] [address] Dr. Marvin Reis Crystals LM Nom (Urine sed) NONE SEEN Normal NONE SEEN [facility] Comment on above: Performed By: #### U AMIC #### [facility] [address] [place] [address] Dr. Marvin Reis Epithelial cells LM Ql (Urine sed) RARE Normal NONE SEEN /RARE [facility] Comment on above: Performed By: #### U AMIC #### [facility] [address] [place] [address] Dr. Marvin Reis Glucose Ql (U) Negative Normal NEGATIVE [facility] Comment on above: Performed By: #### U AMIC #### [facility] [address] [place] [address] Dr. Marvin Reis Hemoglobin Ql (U) Negative Normal NEGATIVE [facility] Comment on above: Performed By: #### U AMIC #### [facility] [address] [address] [address] Marvin Reis Ketones Ql (U) Negative Normal NEGATIVE [facility] Comment on above: Performed By: #### U AMIC #### [facility] [address] [address] [address] Marvin Reis LEUKOCYTES MODERATE Abnormal NEGATIVE [facility] Comment on above: Performed By: #### U AMIC #### [facility] [address] [address] [address] Marvin Reis MUCOUS NONE SEEN Normal NONE SEEN [facility] Comment on above: Performed By: #### U AMIC #### [facility] [address] [place] [address] Dr. Marvin Reis Nitrite Ql (U) Negative Normal NEGATIVE [facility] Comment on above: Performed By: #### U AMIC #### [facility] [address] [place] [address] Dr. Marvin Reis pH (U) 5.5 [pH] Normal 5-9 [facility] Comment on above: Performed By: #### U AMIC #### [facility] [address] [address] [address] Marvin Reis RBC NONE SEEN Abnormal 0-2 [facility] Comment on above: Performed By: #### U AMIC #### [facility] [address] [place] [address] Dr. Marvin Reis SPEC GRAVITY 1.015 Normal 1.005-<=1.025 [facility] Comment on above: Performed By: #### U AMIC #### [facility] [address] [address] [address] Marvin Reis UA PROTEIN Negative Normal NEGATIVE/ TRACE [facility] Comment on above: Performed By: #### U AMIC #### [facility] [address] [place] [address] Dr. Marvin Reis Urobilinogen Qn (U) 0.2 {Robbie'U}/dL Normal 0.2 - 1. 0 [facility] Comment on above: Performed By: #### U AMIC #### [facility] [address] [place] [address] Dr. Marvin Reis WBC 10-20 Abnormal NONE SEEN [facility] Comment on above: Performed By: #### U AMIC #### [facility] [address] [place] [address] Dr. Marvin Reis CULTURE URINEon 12-05-2022 CULTURE [...] Trimethoprim/Sulfamet hoxazole <=20 S F Normal [facility] Comment on above: Performed By: #### U RCX #### [facility] [address] [place] [address] Dr. Marvin Reis CREATININEon 12-03-2022 Creatinine [Mass/Vol] 0.88 mg/dL Normal 0.70-1.30 [facility] Comment on above: Performed By: #### U RCX #### [facility] [address] [place] [address] Dr. Marvin Reis EGFR-AF COLOMBIAN >60 Normal >=60 [facility] Comment on above: Performed By: #### U RCX #### [facility] [address] [place] [address] Dr. Marvin Reis EGFR-NON AF COLOMBIAN >60 Normal >=60 [facility] Comment on above: Performed By: #### U RCX #### [facility] [address] [place] [address] ABDOMEN WO/W CONon [...] ELENO PARKER Date: 2022-12-03 14:51 Normal [facility] UA RANDOM W/MICROSCOPICon BACTERIA TRACE Abnormal NONE SEEN [facility] Comment on above: Performed By: #### U RCX #### [facility] [address], [place] [address] Dr. Marvin Reis Bilirubin Ql (U) Negative Normal NEGATIVE [facility] Comment on above: Performed By: #### U RCX #### [facility] [address], [place] [address] Dr. Marvin Reis CAST NONE SEEN Normal NONE SEEN [facility] Comment on above: Performed By: #### U RCX #### [facility] [address] [address] [address] Marvin Reis Clarity (U) CLEAR Normal CLEAR [facility] Comment on above: Performed By: #### U RCX #### [facility] [address] [place] [address] Dr. Marvin Reis Color (U) LT. YELLOW Normal YELLOW [facility] Comment on above: Performed By: #### U RCX #### [facility] [address] [place] [address] Dr. Marvin Reis Crystals LM Nom (Urine sed) NONE SEEN Normal NONE SEEN [facility] Comment on above: Performed By: #### U RCX #### [facility] [address] [place] [address] Dr. Marvin Reis Epithelial cells LM Ql (Urine sed) RARE Normal NONE SEEN /RARE [facility] Comment on above: Performed By: #### U RCX #### [facility] [address] [place] [address] Dr. Marvin Reis Glucose Ql (U) Negative Normal NEGATIVE [facility] Comment on above: Performed By: #### U RCX #### [facility] [address] [place] [address] Dr. Marvin Reis Hemoglobin Ql (U) TRACE-INTACT Abnormal NEGATIVE [facility] Comment on above: Performed By: #### U RCX #### [facility] [address] [place] [address] Dr. Marvin Reis Ketones Ql (U) Negative Normal NEGATIVE [facility] Comment on above: Performed By: #### U RCX #### [facility] [address] [place] [address] Dr. Marvin Reis LEUKOCYTES TRACE Abnormal NEGATIVE [facility] Comment on above: Performed By: #### U RCX #### [facility] [address] [place] [address] Dr. Marvin Reis MUCOUS TRACE Abnormal NONE SEEN [facility] Comment on above: Performed By: #### U RCX #### [facility] [address] [place] [address] Dr. Marvin Reis Nitrite Ql (U) Negative Normal NEGATIVE [facility] Comment on above: Performed By: #### U RCX #### [facility] [address] [place] [address] Dr. Marvin Reis pH (U) 5.0 [pH] Normal 5-9 [facility] Comment on above: Performed By: #### U RCX #### [facility] [address] [place] [address] Dr. Marvin Reis RBC 0-2 Normal 0-2 [facility] Comment on above: Performed By: #### U RCX #### [facility] [address] [place] [address] Dr. Marvin Reis SPEC GRAVITY 1.010 Normal 1.005-<=1.025 [facility] Comment on above: Performed By: #### U RCX #### [facility] [address] [place] [address] Dr. Marvin Reis UA PROTEIN TRACE Normal NEGATIVE/ TRACE [facility] Comment on above: Performed By: #### U RCX #### [facility] [address] [place] [address] Dr. Marvin Reis Urobilinogen Qn (U) 0.2 {Robbie'U}/dL Normal 0.2 - 1. 0 [facility] Comment on above: Performed By: #### U RCX #### [facility] [address] [place] [address] Dr. Marvin Reis WBC 2-5 Abnormal NONE SEEN [facility] Comment on above: Performed By: #### U RCX #### [facility] [address] [place] [address] ABD/PELVIS WO CONon [...] MAGY COMER Date: 2022-11-20 14:51 Normal [facility] CULTURE URINEon 11-11-2022 CULTURE URINE Culture Observations : GUSTABO TO FOLLOW. Isolate 1 Enterobacter aerogenes >100,000 cfu/mL of Normal [facility] Comment on above: Performed By: #### U RCX #### [facility] [address] [address] [address] Marvin Reis UA RANDOM W/MICROSCOPICon BACTERIA SMALL Abnormal NONE SEEN [facility] Comment on above: Performed By: #### U AMIC #### [facility] [address] [place], [place] [id number] Dr. Marvin Reis Bilirubin Ql (U) Negative Normal NEGATIVE [facility] Comment on above: Performed By: #### U AMIC #### [facility] [address] [address] [address] Marvin Reis CAST NONE SEEN Normal NONE SEEN [facility] Comment on above: Performed By: #### U AMIC #### [facility] [address] [place] [address] Dr. Marvin Reis Clarity (U) CLOUDY Abnormal CLEAR [facility] Comment on above: Performed By: #### U AMIC #### [facility] [address] [address] [address] Marvin Reis Color (U) LT. YELLOW Normal YELLOW [facility] Comment on above: Performed By: #### U AMIC #### [facility] [address] [place] [address] Dr. Marvin Reis Crystals LM Nom (Urine sed) NONE SEEN Normal NONE SEEN [facility] Comment on above: Performed By: #### U AMIC #### [facility] [address] [place] [address] Dr. Marvin Reis Epithelial cells LM Ql (Urine sed) NONE SEEN Normal NONE SEEN /RARE [facility] Comment on above: Performed By: #### U AMIC #### [facility] [address] [place] [address] Dr. Marvin Reis Glucose Ql (U) Negative Normal NEGATIVE [facility] Comment on above: Performed By: #### U AMIC #### [facility] [address] [place] [address] Dr. Marvin Reis Hemoglobin Ql (U) TRACE-INTACT Abnormal NEGATIVE [facility] Comment on above: Performed By: #### U AMIC #### [facility] [address] [address] [address] Marvin Reis Ketones Ql (U) Negative Normal NEGATIVE [facility] Comment on above: Performed By: #### U AMIC #### [facility] [address] [place] [address] Dr. Marvin Reis LEUKOCYTES LARGE Abnormal NEGATIVE [facility] Comment on above: Performed By: #### U AMIC #### [facility] [address] [address] [address] Marvin Reis MUCOUS NONE SEEN Normal NONE SEEN [facility] Comment on above: Performed By: #### U AMIC #### [facility] [address] [place] [address] Dr. Marvin Reis Nitrite Ql (U) Positive Abnormal NEGATIVE [facility] Comment on above: Performed By: #### U AMIC #### [facility] [address] [place] [address] Dr. Marvin Reis pH (U) 5.5 [pH] Normal 5-9 [facility] Comment on above: Performed By: #### U AMIC #### [facility] [address] [place] [address] Dr. Marvin Reis RBC 0-2 Normal 0-2 [facility] Comment on above: Performed By: #### U AMIC #### [facility] [address] [place] [address] Dr. Marvin Reis SPEC GRAVITY 1.015 Normal 1.005-<=1.025 [facility] Comment on above: Performed By: #### U AMIC #### [facility] [address] [place] [address] Dr. Marvin Reis UA PROTEIN Negative Normal NEGATIVE/ TRACE [facility] Comment on above: Performed By: #### U AMIC #### [facility] [address] [place] [address] Dr. Marvin Reis Urobilinogen Qn (U) 0.2 {Robbie'U}/dL Normal 0.2 - 1. 0 [facility] Comment on above: Performed By: #### U AMIC #### [facility] [address] [place] [address] Dr. Marvin Reis WBC 10-20 Abnormal NONE SEEN [facility] Comment on above: Performed By: #### U AMIC #### [facility] [address] [place] [address] Dr. Marvin Reis CULTURE URINEon 10-24-2022 CULTURE [...] Trimethoprim/Sulfamet hoxazole <=20 S F Normal [facility] Comment on above: Performed By: #### U RCX #### [facility] [address] [place] [address] Dr. Marvin Reis UA RANDOM W/MICROSCOPICon BACTERIA LARGE Abnormal NONE SEEN [facility] Comment on above: Performed By: #### U AMIC #### [facility] [address] [place] [address] Dr. Marvin Reis Bilirubin Ql (U) Negative Normal NEGATIVE [facility] Comment on above: Performed By: #### U AMIC #### [facility] [address] [place] [address] Dr. Marvin Reis CAST NONE SEEN Normal NONE SEEN [facility] Comment on above: Performed By: #### U AMIC #### [facility] [address] [place] [address] Dr. Marvin Reis Clarity (U) SL CLOUDY Abnormal CLEAR [facility] Comment on above: Performed By: #### U AMIC #### [facility] [address] [place] [address] Dr. Marvin Reis Color (U) YELLOW Normal YELLOW [facility] Comment on above: Performed By: #### U AMIC #### [facility] [address] [place] [address] Dr. Marvin Reis Crystals LM Nom (Urine sed) NONE SEEN Normal NONE SEEN [facility] Comment on above: Performed By: #### U AMIC #### [facility] [address] [place] [address] Dr. Marvin Reis Epithelial cells LM Ql (Urine sed) FEW Abnormal NONE SEEN /RARE [facility] Comment on above: Performed By: #### U AMIC #### [facility] [address] [address] [address] Marvin Reis Glucose Ql (U) Negative Normal NEGATIVE [facility] Comment on above: Performed By: #### U AMIC #### [facility] [address] [address] [address] Marvin Reis Hemoglobin Ql (U) TRACE-INTACT Abnormal NEGATIVE [facility] Comment on above: Performed By: #### U AMIC #### [facility] [address] [address] [address] Marvin Reis Ketones Ql (U) Negative Normal NEGATIVE [facility] Comment on above: Performed By: #### U AMIC #### [facility] [address] [address] [address] Marvin Reis LEUKOCYTES LARGE Abnormal NEGATIVE [facility] Comment on above: Performed By: #### U AMIC #### [facility] [address] [address] [address] Marvin Reis MUCOUS NONE SEEN Normal NONE SEEN [facility] Comment on above: Performed By: #### U AMIC #### [facility] [address] [address] [address] Marvin Reis Nitrite Ql (U) Negative Normal NEGATIVE [facility] Comment on above: Performed By: #### U AMIC #### [facility] [address] [address] [address] Marvin Reis pH (U) 5.0 [pH] Normal 5-9 [facility] Comment on above: Performed By: #### U AMIC #### [facility] [address] [address] [address] Marvin Reis RBC 5-10 Abnormal 0-2 [facility] Comment on above: Performed By: #### U AMIC #### [facility] [address] [place] [address] Dr. Marvin Reis SPEC GRAVITY 1.010 Normal 1.005-<=1.025 [facility] Comment on above: Performed By: #### U AMIC #### [facility] [address] [address] [address] Marvin Reis UA PROTEIN Negative Normal NEGATIVE/ TRACE [facility] Comment on above: Performed By: #### U AMIC #### [facility] [address] [address] [address] Marvin Reis Urobilinogen Qn (U) 0.2 {Robbie'U}/dL Normal 0.2 - 1. 0 [facility] Comment on above: Performed By: #### U AMIC #### [facility] [address] [place] [address] Dr. Marvin Reis WBC 50-75 Abnormal NONE SEEN [facility] Comment on above: Performed By: #### U AMIC #### [facility] [address] [place] [address] Dr. Marvin Reis CULTURE URINEon 10-01-2022 CULTURE URINE Culture Observations : NO GROWTH. Normal [facility] Comment on above: Performed By: #### U AMIC #### [facility] [address] [place] [address] Dr. Marvin Reis UA RANDOM W/MICROSCOPICon BACTERIA SMALL Abnormal NONE SEEN [facility] Comment on above: Performed By: #### U AMIC #### [facility] [address] [place] [address] Dr. Marvin Reis Bilirubin Ql (U) Negative Normal NEGATIVE [facility] Comment on above: Performed By: #### U AMIC #### [facility] [address] [place] [address] Dr. Marvin Reis CAST SEEN Abnormal NONE SEEN [facility] Comment on above: Performed By: #### U AMIC #### [facility] [address] [place] [address] Dr. Marvin Reis Clarity (U) CLEAR Normal CLEAR [facility] Comment on above: Performed By: #### U AMIC #### [facility] [address] [place] [address] Dr. Marvin Reis Color (U) LT. YELLOW Normal YELLOW [facility] Comment on above: Performed By: #### U AMIC #### [facility] [address] [address] [address] Marvin Reis Crystals LM Nom (Urine sed) NONE SEEN Normal NONE SEEN [facility] Comment on above: Performed By: #### U AMIC #### [facility] [address] [address] [address] Marvin Reis Epithelial cells LM Ql (Urine sed) FEW Abnormal NONE SEEN /RARE [facility] Comment on above: Performed By: #### U AMIC #### [facility] [address] [address] [address] Marvin Reis Glucose Ql (U) Negative Normal NEGATIVE [facility] Comment on above: Performed By: #### U AMIC #### [facility] [address] [address] [address] Marvin Reis Hemoglobin Ql (U) TRACE-INTACT Abnormal NEGATIVE [facility] Comment on above: Performed By: #### U AMIC #### [facility] [address] [address] [address] Marvin Reis HYALINE CAST FEW Normal [facility] Comment on above: Performed By: #### U AMIC #### [facility] [address] [address] [address] Marvin Reis Ketones Ql (U) Negative Normal NEGATIVE [facility] Comment on above: Performed By: #### U AMIC #### [facility] [address] [address] [address] Marvin Reis LEUKOCYTES MODERATE Abnormal NEGATIVE [facility] Comment on above: Performed By: #### U AMIC #### [facility] [address] [place] [address] Dr. Marvin Reis MUCOUS SMALL Abnormal NONE SEEN [facility] Comment on above: Performed By: #### U AMIC #### [facility] [address] [address] [address] Marvin Reis Nitrite Ql (U) Negative Normal NEGATIVE [facility] Comment on above: Performed By: #### U AMIC #### [facility] [address] [address] [address] Marvin Reis pH (U) 5.5 [pH] Normal 5-9 [facility] Comment on above: Performed By: #### U AMIC #### [facility] [address] [address] [address] Marvin Reis RBC 0-2 Normal 0-2 [facility] Comment on above: Performed By: #### U AMIC #### [facility] [address] [address] [address] Marvin Reis SPEC GRAVITY 1.020 Normal 1.005-<=1.025 [facility] Comment on above: Performed By: #### U AMIC #### [facility] [address] [address] [address] Marvin Reis UA PROTEIN Negative Normal NEGATIVE/ TRACE [facility] Comment on above: Performed By: #### U AMIC #### [facility] [address] [place] [address] Dr. Marvin Reis Urobilinogen Qn (U) 0.2 {Robbie'U}/dL Normal 0.2 - 1. 0 [facility] Comment on above: Performed By: #### U AMIC #### [facility] [address] [address] [address] Marvin Reis WBC 10-20 Abnormal NONE SEEN [facility] Comment on above: Performed By: #### U AMIC #### [facility] [address] [address] [address] Marvin Reis CULTURE URINEon 09-26-2022 CULTURE [...] Trimethoprim/Sulfamet hoxazole <=20 S F Normal [facility] Comment on above: Performed By: #### U RCX #### [facility] [address] [address] [address] Marvin Reis CBC W MANUAL DIFFon 09-25-20 ANISOCYTOSIS SLIGHT Normal [facility] Comment on above: Performed By: #### U RCX #### [facility] [address] [address] [address] Marvin Reis ATYPICAL LYMPH # Normal [facility] Comment on above: Performed By: #### U RCX #### [facility] [address] [address] [address] Marvin Reis ATYPICAL LYMPH % Normal [facility] Comment on above: Performed By: #### U RCX #### [facility] [address] [place] [address] Dr. Marvin Reis BAND # Normal 0.0-0.3 [facility] Comment on above: Performed By: #### U RCX #### [facility] [address] [place] [address] Dr. Marvin Reis BAND % Normal 0-5 [facility] Comment on above: Performed By: #### U RCX #### [facility] [address] [place] [address] Dr. Marvin Reis BASOM # 0.00 103/ul Normal 0.00-0.10 [facility] Comment on above: Performed By: #### U RCX #### [facility] [address] [place] [address] Dr. Marvin Reis BASOM % 0.0 % Critically low 0.2-2.0 [facility] Comment on above: Performed By: #### U RCX #### [facility] [address] [place] [address] Dr. Marvin Reis BLAST # Normal [facility] Comment on above: Performed By: #### U RCX #### [facility] [address] [place] [address] Dr. Marvin Reis BLAST % Normal [facility] Comment on above: Performed By: #### U RCX #### [facility] [address] [place] [address] Dr. Marvin Reis CORRECTED WBC Normal 4.0-11.0 [facility] Comment on above: Performed By: #### U RCX #### [facility] [address] [place] [address] Dr. Marvin Reis EOS # 0.00 103/ul Normal 0.00-0.70 [facility] Comment on above: Performed By: #### U RCX #### [facility] [address] [address] [address] Marvin Reis EOS% 0.0 % Critically low 0.9-7.0 [facility] Comment on above: Performed By: #### U RCX #### [facility] [address] [place] [address] Dr. Marvin Reis HCT 32.1 % Critically low 42.0-54.0 [facility] Comment on above: Performed By: #### U RCX #### [facility] [address] [place] [address] Dr. Marvin Reis HGB 10.2 g/dl Critically low 14.0-18.0 [facility] Comment on above: Performed By: #### U RCX #### [facility] [address] [place] [address] Dr. Marvin Reis LYMPHM # 0.76 103/ul Critically low 1.20-3.80 [facility] Comment on above: Performed By: #### U RCX #### [facility] [address] [address] [address] Marvin Reis LYMPHM% 14.0 % Critically low 20.5-60.0 [facility] Comment on above: Performed By: #### U RCX #### [facility] [address] [address] [address] Marvin Reis MCH 26.5 pg Normal 25.9-34.0 [facility] Comment on above: Performed By: #### U RCX #### [facility] [address] [place] [address] Dr. Marvin Reis MCHC 31.8 g/dl Normal 29.9-35.2 [facility] Comment on above: Performed By: #### U RCX #### [facility] [address] [address] [address] Marvin Reis MCV 83.4 fL Normal 80.0-94.0 [facility] Comment on above: Performed By: #### U RCX #### [facility] [address] [address] [address] Marvin Reis METAMYELOCYTE # Normal [facility] Comment on above: Performed By: #### U RCX #### [facility] [address] [address] [address] Marvin Reis METAMYELOCYTE % Normal [facility] Comment on above: Performed By: #### U RCX #### [facility] [address] [place] [address] Dr. Marvin Reis MONOM# 0.27 103/ul Critically low 0.30-0.80 [facility] Comment on above: Performed By: #### U RCX #### [facility] [address] [place] [address] Dr. Marvin Reis MONOM% 5.0 % Normal 1.7-12.0 [facility] Comment on above: Performed By: #### U RCX #### [facility] [address] [place] [address] Dr. Marvin Reis MPV 9.8 fL Normal 9.5-13.5 [facility] Comment on above: Performed By: #### U RCX #### [facility] [address] [place] [address] Dr. Marvin Reis MYELOCYTE # Normal [facility] Comment on above: Performed By: #### U RCX #### [facility] [address] [place] [address] Dr. Marvin Reis MYELOCYTE % Normal [facility] Comment on above: Performed By: #### U RCX #### [facility] [address] [place] [address] Dr. Marvin Reis NRBC Normal [facility] Comment on above: Performed By: #### U RCX #### [facility] [address] [address] [address] Marvin Reis PLT 78 103/ul Critically low 150-450 [facility] Comment on above: Performed By: #### U RCX #### [facility] [address] [address] [address] Marvin Reis RBC 3.85 106/ul Critically low 4.70-6.10 [facility] Comment on above: Performed By: #### U RCX #### [facility] [address] [address] [address] Marvin Reis RDW 15.8 % Critically high 11.0-15.0 [facility] Comment on above: Performed By: #### U RCX #### [facility] [address] [address] [address] Marvin Reis SEG # 4.37 103/ul Normal 1.40-6.50 [facility] Comment on above: Performed By: #### U RCX #### [facility] [address] [address] [address] Marvin Reis SEG % 81.0 % Critically high 43.0-75.0 [facility] Comment on above: Performed By: #### U RCX #### [facility] [address] [address] [address] Marvin Reis WBC 5.4 103/ul Normal 4.0-11.0 [facility] Comment on above: Performed By: #### U RCX #### [facility] [address] [address] [address] Marvin Reis CRPon 09-25-2022 CRP 8.9 mg/dL Critically high <=1.0 [facility] Comment on above: Performed By: #### U AMIC #### [facility] [address] [address] [address] Marvin Reis LACTATE/LACTIC ACIDon 2021 Lactate [Moles/Vol] 0.9 mmol/L Normal 0.4-1.9 [facility] Comment on above: Performed By: #### U RCX #### [facility] [address] [address] [address] Marvin Reis PROF 14(COMP METB)on 022 Albumin [Mass/Vol] 2.6 g/dL Critically low 3.4-5.0 [facility] e [facility] Comment on above: Performed By: #### U AMIC #### [facility] [address] [address] [address] Marvin Reis Albumin/Globulin [Mass ratio] 0.7 {ratio} Normal [facility] Comment on above: Performed By: #### U AMIC #### [facility] [address] [address] [address] Marvin Reis ALP [Catalytic activity/Vol] 75 U/L Normal 46-116 [facility] Comment on above: Performed By: #### U AMIC #### [facility] [address] [place] [address] Dr. Marvin Reis ALT [Catalytic activity/Vol] 23 U/L Normal 16-63 [facility] Comment on above: Performed By: #### U AMIC #### [facility] [address] [place] [address] Dr. Marvin Reis Anion gap [Moles/Vol] 11.8 mmol/L Normal [facility] Comment on above: Performed By: #### U AMIC #### [facility] [address] [address] [address] Marvin Reis AST [Catalytic activity/Vol] 21 U/L Normal 15-37 [facility] Comment on above: Performed By: #### U AMIC #### [facility] [address] [place] [address] Dr. Marvin Reis Bilirubin [Mass/Vol] 0.8 mg/dL Normal 0.2-1.0 [facility] Comment on above: Performed By: #### U AMIC #### [facility] [address] [address] [address] Marvin Reis Calcium [Mass/Vol] 8.7 mg/dL Normal 8.5-10.1 [facility] Comment on above: Performed By: #### U AMIC #### [facility] [address] [address] [address] Marvin Reis Chloride [Moles/Vol] 105 mmol/L Normal 98-107 [facility] Comment on above: Performed By: #### U AMIC #### [facility] [address] [address] [address] Marvin Reis CO2 [Moles/Vol] 26.1 mmol/L Normal 21.0-32.0 [facility] Comment on above: Performed By: #### U AMIC #### [facility] [address] [address] [address] Marvin Reis Creatinine [Mass/Vol] 0.88 mg/dL Normal 0.70-1.30 [facility] Comment on above: Performed By: #### U AMIC #### [facility] [address] [address] [address] Marvin Reis EGFR-AF COLOMBIAN >60 Normal >=60 [facility] Comment on above: Performed By: #### U AMIC #### [facility] [address] [address] [address] Marvin Reis EGFR-NON AF COLOMBIAN >60 Normal >=60 [facility] Comment on above: Performed By: #### U AMIC #### [facility] [address] [address] [address] Marvin Reis Globulin (S) [Mass/Vol] 3.7 g/dL Normal [facility] Comment on above: Performed By: #### U AMIC #### [facility] [address] [address] [address] Marvin Reis Glucose [Mass/Vol] 93 mg/dL Normal 74-106 [facility] Comment on above: Performed By: #### U AMIC #### [facility] [address] [address] [address] Marvin Reis Potassium [Moles/Vol] 3.9 mmol/L Normal 3.5-5.1 [facility] Comment on above: Performed By: #### U AMIC #### [facility] [address] [address] [address] Marvin Reis Protein [Mass/Vol] 6.3 g/dL Critically low 6.4-8.2 [facility] Comment on above: Performed By: #### U AMIC #### [facility] [address] [address] [address] Marvin Reis Sodium [Moles/Vol] 139 mmol/L Normal 136-145 [facility] Comment on above: Performed By: #### U AMIC #### [facility] [address] [address] [address] Marvin Reis Urea nitrogen [Mass/Vol] 20.0 mg/dL Critically high 7.0-18.0 [facility] Comment on above: Performed By: #### U AMIC #### [facility] [address] [place] [address] Dr. Marvin Reis Urea nitrogen/Creatinine [Mass ratio] 22.7 mg/mg Normal [facility] Comment on above: Performed By: #### U AMIC #### [facility] [address] [place] [address] Dr. Marvin Reis SED RATE [facility] 2021 SED RATE 49 mm/hr Critically high <=20 [facility] Comment on above: Performed By: #### U AMIC #### [facility] [address] [place] [address] Dr. Marvin Reis CBC W MANUAL DIFFon 09-24-20 22 ATYPICAL LYMPH # Normal [facility] Comment on above: Performed By: #### U RCX #### [facility] [address] [place] [address] Dr. Marvin Reis ATYPICAL LYMPH % Normal [facility] Comment on above: Performed By: #### U RCX #### [facility] [address] [place] [address] Dr. Marvin Reis BAND # Normal 0.0-0.3 [facility] Comment on above: Performed By: #### U RCX #### [facility] [address] [place] [address] Dr. Marvin Reis BAND % Normal 0-5 [facility] Comment on above: Performed By: #### U RCX #### [facility] [address] [address] [address] Marvin Reis BASOM # 0.00 103/ul Normal 0.00-0.10 [facility] Comment on above: Performed By: #### U RCX #### [facility] [address] [address] [address] Marvin Reis BASOM % 0.0 % Critically low 0.2-2.0 [facility] Comment on above: Performed By: #### U RCX #### [facility] [address] [address] [address] Marvin Reis BLAST # Normal [facility] Comment on above: Performed By: #### U RCX #### [facility] [address] [place] [address] Dr. Marvin Reis BLAST % Normal [facility] Comment on above: Performed By: #### U RCX #### [facility] [address] [address] [address] Marvin Reis CORRECTED WBC Normal 4.0-11.0 [facility] Comment on above: Performed By: #### U RCX #### [facility] [address] [place] [address] Dr. Marvin Reis EOS # 0.00 103/ul Normal 0.00-0.70 [facility] Comment on above: Performed By: #### U RCX #### [facility] [address] [place] [address] Dr. Marvin Reis EOS% 0.0 % Critically low 0.9-7.0 [facility] Comment on above: Performed By: #### U RCX #### [facility] [address] [address] [address] Marvin Reis HCT 33.5 % Critically low 42.0-54.0 [facility] Comment on above: Performed By: #### U RCX #### [facility] [address] [place] [address] Dr. Marvin Reis HGB 10.9 g/dl Critically low 14.0-18.0 [facility] Comment on above: Performed By: #### U RCX #### [facility] [address] [address] [address] Marvin Reis LYMPHM # 0.52 103/ul Critically low 1.20-3.80 [facility] Comment on above: Performed By: #### U RCX #### [facility] [address] [address] [address] Marvin Reis LYMPHM% 4.0 % Critically low 20.5-60.0 [facility] Comment on above: Performed By: #### U RCX #### [facility] [address] [address] [address] Marvin Reis MCH 27.2 pg Normal 25.9-34.0 [facility] Comment on above: Performed By: #### U RCX #### [facility] [address] [place] [address] Dr. Marvin Reis MCHC 32.5 g/dl Normal 29.9-35.2 [facility] Comment on above: Performed By: #### U RCX #### [facility] [address] [place] [address] Dr. Marvin Reis MCV 83.5 fL Normal 80.0-94.0 [facility] Comment on above: Performed By: #### U RCX #### [facility] [address] [place] [address] Dr. Marvin Reis METAMYELOCYTE # Normal [facility] Comment on above: Performed By: #### U RCX #### [facility] [address] [place] [address] Dr. Marvin Reis METAMYELOCYTE % Normal [facility] Comment on above: Performed By: #### U RCX #### [facility] [address] [place] [address] Dr. Marvin Reis MONOM# 0.39 103/ul Normal 0.30-0.80 [facility] Comment on above: Performed By: #### U RCX #### [facility] [address] [place] [address] Dr. Marvin Reis MONOM% 3.0 % Normal 1.7-12.0 [facility] Comment on above: Performed By: #### U RCX #### [facility] [address] [place] [address] Dr. Marvin Reis MPV 10.5 fL Normal 9.5-13.5 [facility] Comment on above: Performed By: #### U RCX #### [facility] [address] [place] [address] Dr. Marvin Reis MYELOCYTE # Normal [facility] Comment on above: Performed By: #### U RCX #### [facility] [address] [place] [address] Dr. Marvin Reis MYELOCYTE % Normal [facility] Comment on above: Performed By: #### U RCX #### [facility] [address] [place] [address] Dr. Marvin Reis NRBC Normal [facility] Comment on above: Performed By: #### U RCX #### [facility] [address] [place] [address] Dr. Marvin Reis PLT 96 103/ul Critically low 150-450 [facility] Comment on above: Performed By: #### U RCX #### [facility] [address] [place] [address] Dr. Marvin Reis RBC 4.01 106/ul Critically low 4.70-6.10 [facility] Comment on above: Performed By: #### U RCX #### [facility] [address] [place] [address] Dr. Marvin Reis RDW 15.8 % Critically high 11.0-15.0 [facility] Comment on above: Performed By: #### U RCX #### [facility] [address] [place] [address] Dr. Marvin Reis SEG # 12.00 103/ul Critically high 1.40-6.50 [facility] Comment on above: Performed By: #### U RCX #### [facility] [address] [place] [address] Dr. Marvin Reis SEG % 93.0 % Critically high 43.0-75.0 [facility] Comment on above: Performed By: #### U RCX #### [facility] [address] [place] [address] Dr. Marvin Reis WBC 12.9 103/ul Critically high 4.0-11.0 [facility] Comment on above: Performed By: #### U RCX #### [facility] [address] [place] [address] Dr. Marvin Reis CRPon 09-24-2022 CRP 8.4 mg/dL Critically high <=1.0 [facility] Comment on above: Performed By: #### U AMIC #### [facility] [address] [place] [address] Dr. Marvin Reis LACTATE/LACTIC ACIDon 2021 Lactate [Moles/Vol] 2.2 mmol/L Critically high 0.4-1.9 [facility] Comment on above: Performed By: #### L ACT #### [facility] [address] [place] [address] Dr. Marvin Reis PROF 14(COMP METB)on 022 Albumin [Mass/Vol] 2.8 g/dL Critically low 3.4-5.0 [facility] Comment on above: Performed By: #### U AMIC #### [facility] [address] [place] [address] Dr. Marvin Reis Albumin/Globulin [Mass ratio] 0.7 {ratio} Normal [facility] Comment on above: Performed By: #### U AMIC #### [facility] [address] [place] [address] Dr. Marvin Reis ALP [Catalytic activity/Vol] 80 U/L Normal 46-116 [facility] Comment on above: Performed By: #### U AMIC #### [facility] [address] [place] [address] Dr. Marvin Reis ALT [Catalytic activity/Vol] 20 U/L Normal 16-63 [facility] Comment on above: Performed By: #### U AMIC #### [facility] [address] [address] [address] Marvin Reis Anion gap [Moles/Vol] 12.3 mmol/L Normal [facility] Comment on above: Performed By: #### U AMIC #### [facility] [address] [address] [address] Marvin Reis AST [Catalytic activity/Vol] 17 U/L Normal 15-37 [facility] Comment on above: Performed By: #### U AMIC #### [facility] [address] [address] [address] Marvin Reis Bilirubin [Mass/Vol] 1.0 mg/dL Normal 0.2-1.0 [facility] Comment on above: Performed By: #### U AMIC #### [facility] [address] [place] [address] Dr. Marvin Reis Calcium [Mass/Vol] 9.0 mg/dL Normal 8.5-10.1 [facility] Comment on above: Performed By: #### U AMIC #### [facility] [address] [place] [address] Dr. Marvin Reis Chloride [Moles/Vol] 106 mmol/L Normal 98-107 [facility] Comment on above: Performed By: #### U AMIC #### [facility] [address] [place] [address] Dr. Marvin Reis CO2 [Moles/Vol] 25.8 mmol/L Normal 21.0-32.0 [facility] Comment on above: Performed By: #### U AMIC #### [facility] [address] [place] [address] Dr. Marvin Reis Creatinine [Mass/Vol] 1.08 mg/dL Normal 0.70-1.30 [facility] Comment on above: Performed By: #### U AMIC #### [facility] [address] [place] [address] Dr. Marvin Reis EGFR-AF COLOMBIAN >60 Normal >=60 [facility] Comment on above: Performed By: #### U AMIC #### [facility] [address] [place] [address] Dr. Marvin Reis EGFR-NON AF COLOMBIAN >60 Normal >=60 [facility] Comment on above: Performed By: #### U AMIC #### [facility] [address] [address] [address] Marvin Reis Globulin (S) [Mass/Vol] 3.8 g/dL Normal [facility] Comment on above: Performed By: #### U AMIC #### [facility] [address] [address] [address] Marvin Reis Glucose [Mass/Vol] 117 mg/dL Critically high 74-106 [facility] Comment on above: Performed By: #### U AMIC #### [facility] [address] [address] [address] Marvin Reis Potassium [Moles/Vol] 4.1 mmol/L Normal 3.5-5.1 [facility] Comment on above: Performed By: #### U AMIC #### [facility] [address] [address] [address] Marvin Reis Protein [Mass/Vol] 6.6 g/dL Normal 6.4-8.2 [facility] Comment on above: Performed By: #### U AMIC #### [facility] [address] [place] [address] Dr. Marvin Reis Sodium [Moles/Vol] 140 mmol/L Normal 136-145 [facility] Comment on above: Performed By: #### U AMIC #### [facility] [address] [address] [address] Marvin Reis Urea nitrogen [Mass/Vol] 23.0 mg/dL Critically high 7.0-18.0 [facility] Comment on above: Performed By: #### U AMIC #### [facility] [address] [place] [address] Dr. Marvin Reis Urea nitrogen/Creatinine [Mass ratio] 21.3 mg/mg Normal [facility] Comment on above: Performed By: #### U AMIC #### [facility] [address] [address] [address] Marvin Reis SED RATE [facility] 2021 SED RATE 51 mm/hr Critically high <=20 [facility] Comment on above: Performed By: #### U RCX #### [facility] [address] [place] [address] Dr. Marvin Reis UA RANDOMon 09-24-2022 Bilirubin Ql (U) Negative Normal NEGATIVE [facility] Comment on above: Performed By: #### U AMIC #### [facility] [address] [address] [address] Marvin Reis Clarity (U) CLEAR Normal CLEAR [facility] Comment on above: Performed By: #### U AMIC #### [facility] [address] [address] [address] Marvin Reis Color (U) LT. YELLOW Normal YELLOW [facility] Comment on above: Performed By: #### U AMIC #### [facility] [address] [address] [address] Marvin Reis Glucose Ql (U) Negative Normal NEGATIVE [facility] Comment on above: Performed By: #### U AMIC #### [facility] [address] [address] [address] Marvin Reis Hemoglobin Ql (U) LARGE Abnormal NEGATIVE [facility] Comment on above: Performed By: #### U AMIC #### [facility] [address] [address] [address] Marvin Reis Ketones Ql (U) Negative Normal NEGATIVE [facility] Comment on above: Performed By: #### U AMIC #### [facility] [address] [address] [address] Marvin Reis LEUKOCYTES MODERATE Abnormal NEGATIVE [facility] Comment on above: Performed By: #### U AMIC #### [facility] [address] [place] [address] Dr. Marvin Reis Nitrite Ql (U) Negative Normal NEGATIVE [facility] Comment on above: Performed By: #### U AMIC #### [facility] [address] [address] [address] Marvin Reis pH (U) 5.5 [pH] Normal 5-9 [facility] Comment on above: Performed By: #### U AMIC #### [facility] [address] [address] [address] Marvin Reis SPEC GRAVITY 1.020 Normal 1.005-<=1.025 [facility] Comment on above: Performed By: #### U AMIC #### [facility] [address] [address] [address] Marvin Reis UA PROTEIN Negative Normal NEGATIVE/ TRACE [facility] Comment on above: Performed By: #### U AMIC #### [facility] [address] [address] [address] Marvin Reis Urobilinogen Qn (U) 0.2 {Robbie'U}/dL Normal 0.2 - 1. 0 [facility] Comment on above: Performed By: #### U AMIC #### [facility] [address] [place] [address] Dr. Marvin Reis CULTURE URINEon 09-13-2022 CULTURE [...] F Oxacillin >=4 R F Normal [facility] Comment on above: Performed By: #### U RCX #### [facility] [address] [place] [address] Dr. Marvin Reis UA RANDOM W/MICROSCOPICon BACTERIA TRACE Abnormal NONE SEEN [facility] Comment on above: Performed By: #### U AMIC #### [facility] [address] [place] [address] Dr. Marvin Reis Bilirubin Ql (U) Negative Normal NEGATIVE [facility] Comment on above: Performed By: #### U AMIC #### [facility] [address] [address] [address] Marvin Reis CAST NONE SEEN Normal NONE SEEN [facility] Comment on above: Performed By: #### U AMIC #### [facility] [address] [address] [address] Marvin Reis Clarity (U) CLEAR Normal CLEAR [facility] Comment on above: Performed By: #### U AMIC #### [facility] [address] [address] [address] Marvin Reis Color (U) LT. YELLOW Normal YELLOW [facility] Comment on above: Performed By: #### U AMIC #### [facility] [address] [place] [address] Dr. Marvin Reis Crystals LM Nom (Urine sed) NONE SEEN Normal NONE SEEN [facility] Comment on above: Performed By: #### U AMIC #### [facility] [address] [address] [address] Marvin Reis Epithelial cells LM Ql (Urine sed) FEW Abnormal NONE SEEN /RARE [facility] Comment on above: Performed By: #### U AMIC #### [facility] [address] [address] [address] Marvin Reis Glucose Ql (U) Negative Normal NEGATIVE [facility] Comment on above: Performed By: #### U AMIC #### [facility] [address] [address] [address] Marvin Reis Hemoglobin Ql (U) Negative Normal NEGATIVE [facility] Comment on above: Performed By: #### U AMIC #### [facility] [address] [address] [address] Marvin Reis Ketones Ql (U) Negative Normal NEGATIVE [facility] [facility] Comment on above: Performed By: #### U AMIC #### [facility] [address] [address] [address] Marvin Reis LEUKOCYTES LARGE Abnormal NEGATIVE [facility] Comment on above: Performed By: #### U AMIC #### [facility] [address] [address] [address] Marvin Reis MUCOUS NONE SEEN Normal NONE SEEN [facility] Comment on above: Performed By: #### U AMIC #### [facility] [address] [address] [address] Marvin Reis Nitrite Ql (U) Negative Normal NEGATIVE [facility] Comment on above: Performed By: #### U AMIC #### [facility] [address] [place] [address] Dr. Marvin Reis pH (U) 5.5 [pH] Normal 5-9 [facility] Comment on above: Performed By: #### U AMIC #### [facility] [address] [place] [address] Dr. Marvin Reis RBC 0-2 Normal 0-2 [facility] Comment on above: Performed By: #### U AMIC #### [facility] [address] [place] [address] Dr. Marvin Reis SPEC GRAVITY 1.025 Normal 1.005-<=1.025 [facility] Comment on above: Performed By: #### U AMIC #### [facility] [address] [place] [address] Dr. Marvin Reis UA PROTEIN Negative Normal NEGATIVE/ TRACE [facility] Comment on above: Performed By: #### U AMIC #### [facility] [address] [place] [address] Dr. Marvin Reis Urobilinogen Qn (U) 0.2 {Robbie'U}/dL Normal 0.2 - 1. 0 [facility] Comment on above: Performed By: #### U AMIC #### [facility] [address] [place] [address] Dr. Marvin Reis WBC 10-20 Abnormal NONE SEEN [facility] Comment on above: Performed By: #### U AMIC #### [facility] [address] [place] [address] Dr. Marvin Reis CULTURE URINEon 08-17-2022 CULTURE [...] Trimethoprim/Sulfamet hoxazole <=20 S F Normal [facility] Comment on above: Performed By: #### U RCX #### [facility] [address] [place] [address] Dr. Marvin Reis UA RANDOM W/MICROSCOPICon BACTERIA MODERATE Abnormal NONE SEEN [facility] Comment on above: Performed By: #### U RCX #### [facility] [address] [place] [address] Dr. Marvin Reis Bilirubin Ql (U) Negative Normal NEGATIVE [facility] Comment on above: Performed By: #### U RCX #### [facility] [address] [place] [address] Dr. Marvin Reis CAST NONE SEEN Normal NONE SEEN [facility] Comment on above: Performed By: #### U RCX #### [facility] [address] [place] [address] Dr. Marvin Reis Clarity (U) SL CLOUDY Abnormal CLEAR [facility] Comment on above: Performed By: #### U RCX #### [facility] [address] [place] [address] Dr. Marvin Reis Color (U) LT. YELLOW Normal YELLOW [facility] Comment on above: Performed By: #### U RCX #### [facility] [address] [place] [address] Dr. Marvin Reis Crystals LM Nom (Urine sed) NONE SEEN Normal NONE SEEN [facility] Comment on above: Performed By: #### U RCX #### [facility] [address] [place] [address] Dr. Marvin Reis Epithelial cells LM Ql (Urine sed) RARE Normal NONE SEEN /RARE [facility] Comment on above: Performed By: #### U RCX #### [facility] [address] [address] [address] Marvin Reis Glucose Ql (U) Negative Normal NEGATIVE [facility] Comment on above: Performed By: #### U RCX #### [facility] [address] [address] [address] Marvin Reis Hemoglobin Ql (U) SMALL Abnormal NEGATIVE [facility] Comment on above: Performed By: #### U RCX #### [facility] [address] [address] [address] Marvin Reis Ketones Ql (U) Negative Normal NEGATIVE [facility] Comment on above: Performed By: #### U RCX #### [facility] [address] [address] [address] Marvin Reis LEUKOCYTES MODERATE Abnormal NEGATIVE [facility] Comment on above: Performed By: #### U RCX #### [facility] [address] [address] [address] Marvin Reis MUCOUS NONE SEEN Normal NONE SEEN [facility] Comment on above: Performed By: #### U RCX #### [facility] [address] [address] [address] Marvin Reis Nitrite Ql (U) Positive Abnormal NEGATIVE [facility] Comment on above: Performed By: #### U RCX #### [facility] [address] [address] [address] Marvin Reis pH (U) 6.0 [pH] Normal 5-9 [facility] Comment on above: Performed By: #### U RCX #### [facility] [address] [address] [address] Marvin Reis RBC 0-2 Normal 0-2 [facility] Comment on above: Performed By: #### U RCX #### [facility] [address] [address] [address] Marvin Reis SPEC GRAVITY 1.015 Normal 1.005-<=1.025 [facility] Comment on above: Performed By: #### U RCX #### [facility] [address] [place] [address] Dr. Marvin Reis UA PROTEIN Negative Normal NEGATIVE/ TRACE [facility] Comment on above: Performed By: #### U RCX #### [facility] [address] [place] [address] Dr. Marvin Reis Urobilinogen Qn (U) 0.2 {Robbie'U}/dL Normal 0.2 - 1. 0 [facility] Comment on above: Performed By: #### U RCX #### [facility] [address] [place] [address] Dr. Marvin Reis WBC 10-20 Abnormal NONE SEEN [facility] Comment on above: Performed By: #### U RCX #### [facility] [address] [place] [address] Dr. Marvin Reis CULTURE URINEon 08-02-2022 CULTURE [...] Trimethoprim/Sulfamet hoxazole <=20 S F Normal [facility] Comment on above: Performed By: #### U RCX #### [facility] [address] [place] [address] Dr. Marvin Reis UA RANDOM W/MICROSCOPICon BACTERIA MODERATE Abnormal NONE SEEN [facility] Comment on above: Performed By: #### U AMIC #### [facility] [address] [place] [address] Dr. Marvin Reis Bilirubin Ql (U) Negative Normal NEGATIVE [facility] Comment on above: Performed By: #### U AMIC #### [facility] [address] [place] [address] Dr. Marvin Reis CAST NONE SEEN Normal NONE SEEN [facility] Comment on above: Performed By: #### U AMIC #### [facility] [address] [address] [address] Marvin Reis Clarity (U) SL CLOUDY Abnormal CLEAR [facility] Comment on above: Performed By: #### U AMIC #### [facility] [address] [place] [address] Dr. Marvin Reis Color (U) LT. YELLOW Normal YELLOW [facility] Comment on above: Performed By: #### U AMIC #### [facility] [address] [address] [address] Marvin Reis Crystals LM Nom (Urine sed) NONE SEEN Normal NONE SEEN [facility] Comment on above: Performed By: #### U AMIC #### [facility] [address] [place] [address] Dr. Marvin Reis Epithelial cells LM Ql (Urine sed) NONE SEEN Normal NONE SEEN /RARE [facility] Comment on above: Performed By: #### U AMIC #### [facility] [address] [place] [address] Dr. Marvin Reis Glucose Ql (U) Negative Normal NEGATIVE [facility] Comment on above: Performed By: #### U AMIC #### [facility] [address] [place] [address] Dr. Marvin Reis Hemoglobin Ql (U) TRACE-INTACT Abnormal NEGATIVE The [facility] Comment on above: Performed By: #### U AMIC #### [facility] [address] [address] [address] Marvin Reis Ketones Ql (U) Negative Normal NEGATIVE [facility] Comment on above: Performed By: #### U AMIC #### [facility] [address] [place] [address] Dr. Marvin Reis LEUKOCYTES MODERATE Abnormal NEGATIVE [facility] Comment on above: Performed By: #### U AMIC #### [facility] [address] [place] [address] Dr. Marvin Reis MUCOUS NONE SEEN Normal NONE SEEN [facility] Comment on above: Performed By: #### U AMIC #### [facility] [address] [address] [address] Marvin Reis Nitrite Ql (U) Positive Abnormal NEGATIVE [facility] Comment on above: Performed By: #### U AMIC #### [facility] [address] [place] [address] Dr. Marvin Reis pH (U) 6.0 [pH] Normal 5-9 [facility] Comment on above: Performed By: #### U AMIC #### [facility] [address] [place] [address] Dr. Marvin Reis RBC 0-2 Normal 0-2 [facility] Comment on above: Performed By: #### U AMIC #### [facility] [address] [place] [address] Dr. Marvin Reis SPEC GRAVITY 1.015 Normal 1.005-<=1.025 [facility] Comment on above: Performed By: #### U AMIC #### [facility] [address] [place] [address] Dr. Marvin Reis UA PROTEIN Negative Normal NEGATIVE/ TRACE [facility] Comment on above: Performed By: #### U AMIC #### [facility] [address] [place] [address] Dr. Marvin Reis Urobilinogen Qn (U) 0.2 {Robbie'U}/dL Normal 0.2 - 1. 0 [facility] Comment on above: Performed By: #### U AMIC #### [facility] [address] [place] [address] Dr. Marvin Reis WBC 20-50 Abnormal NONE SEEN [facility] Comment on above: Performed By: #### U AMIC #### [facility] [address] [place] [address] Dr. Marvin Reis CULTURE URINEon 06-27-2022 CULTURE [...] F Oxacillin >=4 R F Normal [facility] Comment on above: Performed By: #### U AMIC #### [facility] [address] [place] [address] Dr. Marvin Reis UA RANDOM W/MICROSCOPICon BACTERIA LARGE Abnormal NONE SEEN [facility] Comment on above: Performed By: #### U RCX #### [facility] [address] [place] [address] Dr. Marvin Reis Bilirubin Ql (U) Negative Normal NEGATIVE [facility] Comment on above: Performed By: #### U RCX #### [facility] [address] [address] [address] Marvin Reis CAST NONE SEEN Normal NONE SEEN [facility] Comment on above: Performed By: #### U RCX #### [facility] [address] [address] [address] Marvin Reis Clarity (U) CLEAR Normal CLEAR [facility] Comment on above: Performed By: #### U RCX #### [facility] [address] [address] [address] Marvin Reis Color (U) LT. YELLOW Normal YELLOW [facility] Comment on above: Performed By: #### U RCX #### [facility] [address] [address] [address] Marvin Reis Crystals LM Nom (Urine sed) NONE SEEN Normal NONE SEEN [facility] Comment on above: Performed By: #### U RCX #### [facility] [address] [place] [address] Dr. Marvin Reis Epithelial cells LM Ql (Urine sed) FEW Abnormal NONE SEEN /RARE [facility] Comment on above: Performed By: #### U RCX #### [facility] [address] [place] [address] Dr. Marvin Reis Glucose Ql (U) Negative Normal NEGATIVE [facility] Comment on above: Performed By: #### U RCX #### [facility] [address] [place] [address] Dr. Marvin Reis Hemoglobin Ql (U) TRACE-INTACT Abnormal NEGATIVE [facility] Comment on above: Performed By: #### U RCX #### [facility] [address] [address] [address] Marivn Reis Ketones Ql (U) Negative Normal NEGATIVE [facility] Comment on above: Performed By: #### U RCX #### [facility] [address] [place] [address] Dr. Marvin Reis LEUKOCYTES LARGE Abnormal NEGATIVE [facility] Comment on above: Performed By: #### U RCX #### [facility] [address] [place] [address] Dr. Marvin Reis MUCOUS NONE SEEN Normal NONE SEEN [facility] Comment on above: Performed By: #### U RCX #### [facility] [address] [place] [address] Dr. Marvin Reis Nitrite Ql (U) Positive Abnormal NEGATIVE [facility] Comment on above: Performed By: #### U RCX #### [facility] [address] [place] [address] Dr. Marvin Reis pH (U) 5.5 [pH] Normal 5-9 [facility] Comment on above: Performed By: #### U RCX #### [facility] [address] [place] [address] Dr. Marvin Reis RBC 2-5 Abnormal 0-2 [facility] Comment on above: Performed By: #### U RCX #### [facility] [address] [place] [address] Dr. Marvin Reis SPEC GRAVITY 1.015 Normal 1.005-<=1.025 [facility] Comment on above: Performed By: #### U RCX #### [facility] [address] [place] [address] Dr. Marvin Reis UA PROTEIN Negative Normal NEGATIVE/ TRACE [facility] Comment on above: Performed By: #### U RCX #### [facility] [address] [place] [address] Dr. Marvin Reis Urobilinogen Qn (U) 0.2 {Robbie'U}/dL Normal 0.2 - 1. 0 [facility] Comment on above: Performed By: #### U RCX #### [facility] [address] [address] [address] Marvin Reis WBC (U) [#/Vol] /uL Abnormal NONE SEEN [facility] Comment on above: Performed By: #### U RCX #### [facility] [address] [place] [address] Dr. Marvin Reis CULTURE URINEon 05-27-2022 CULTURE [...] F Oxacillin >=4 R F Normal [facility] Comment on above: Performed By: #### U RCX #### [facility] [address] [place] [address] Dr. Marvin Reis UA RANDOM W/MICROSCOPICon BACTERIA MODERATE Abnormal NONE SEEN [facility] Comment on above: Performed By: #### U RCX #### [facility] [address] [place] [address] Dr. Marvin Reis Bilirubin Ql (U) Negative Normal NEGATIVE [facility] Comment on above: Performed By: #### U RCX #### [facility] [address] [address] [address] Marvin Reis CAST NONE SEEN Normal NONE SEEN [facility] Comment on above: Performed By: #### U RCX #### [facility] [address] [address] [address] Marvin Reis Clarity (U) SL CLOUDY Abnormal CLEAR [facility] Comment on above: Performed By: #### U RCX #### [facility] [address] [address] [address] Marvin Reis Color (U) LT. YELLOW Normal YELLOW [facility] Comment on above: Performed By: #### U RCX #### [facility] [address] [place] [address] Dr. Marvin Reis Crystals LM Nom (Urine sed) NONE SEEN Normal NONE SEEN [facility] Comment on above: Performed By: #### U RCX #### [facility] [address] [place] [address] Dr. Marvin Reis Epithelial cells LM Ql (Urine sed) FEW Abnormal NONE SEEN /RARE [facility] Comment on above: Performed By: #### U RCX #### [facility] [address] [place] [address] Dr. Marvin Reis Glucose Ql (U) Negative Normal NEGATIVE [facility] Comment on above: Performed By: #### U RCX #### [facility] [address] [place] [address] Dr. Marvin Reis Hemoglobin Ql (U) SMALL Abnormal NEGATIVE [facility] Comment on above: Performed By: #### U RCX #### [facility] [address] [place] [address] Dr. Marvin Reis Ketones Ql (U) Negative Normal NEGATIVE [facility] Comment on above: Performed By: #### U RCX #### [facility] [address] [place] [address] Dr. Marvin Reis LEUKOCYTES LARGE Abnormal NEGATIVE [facility] Comment on above: Performed By: #### U RCX #### [facility] [address] [place] [address] Dr. Marvin Reis MUCOUS TRACE Abnormal NONE SEEN [facility] Comment on above: Performed By: #### U RCX #### [facility] [address] [address] [address] Marvin Reis Nitrite Ql (U) Negative Normal NEGATIVE [facility] Comment on above: Performed By: #### U RCX #### [facility] [address] [address] [address] Marvin Reis pH (U) 6.0 [pH] Normal 5-9 [facility] Comment on above: Performed By: #### U RCX #### [facility] [address] [address] [address] Marvin Reis RBC 2-5 Abnormal 0-2 [facility] Comment on above: Performed By: #### U RCX #### [facility] [address] [place] [address] Dr. Marvin Reis SPEC GRAVITY 1.010 Normal 1.005-<=1.025 [facility] Comment on above: Performed By: #### U RCX #### [facility] [address] [address] [address] Marvin Reis UA PROTEIN Negative Normal NEGATIVE/ TRACE [facility] Comment on above: Performed By: #### U RCX #### [facility] [address] [place] [address] Dr. Marvin Reis Urobilinogen Qn (U) 0.2 {Robbie'U}/dL Normal 0.2 - 1. 0 [facility] Comment on above: Performed By: #### U RCX #### [facility] [address] [place] [address] Dr. Marvin Reis WBC 50-75 Abnormal NONE SEEN [facility] Comment on above: Performed By: #### U RCX #### [facility] [address] [place] [address] Dr. Marvin Reis CULTURE URINEon 04-18-2022 CULTURE URINE Culture Observations : METHICILLIN RESISTANT STAPH AUREUS ISOLATED. PLEASE FOLLOW APPROPRIATE ISOLATION PROCEDURES. Culture Observations: MRSA called to Sonal Tidwell LPN at office 04/18/22 @1112 bl Isolate 1 Staphylococcus aureus >100,000 cfu/mL of [...] F Oxacillin >=4 R F Normal [facility] Comment on above: Performed By: #### U RCX #### [facility] [address] [place] [address] Dr. Marvin Reis UA RANDOM W/MICROSCOPICon BACTERIA TRACE Abnormal NONE SEEN [facility] Comment on above: Performed By: #### U AMIC #### [facility] [address] [place] [address] Dr. Marvin Reis Bilirubin Ql (U) Negative Normal NEGATIVE [facility] Comment on above: Performed By: #### U AMIC #### [facility] [address] [place] [address] Dr. Marvin Reis CAST NONE SEEN Normal NONE SEEN [facility] Comment on above: Performed By: #### U AMIC #### [facility] [address] [place] [address] Dr. Marvin Reis Clarity (U) CLEAR Normal CLEAR [facility] Comment on above: Performed By: #### U AMIC #### [facility] [address] [place] [address] Dr. Marvin Reis Color (U) LT. YELLOW Normal YELLOW [facility] Comment on above: Performed By: #### U AMIC #### [facility] [address] [place] [address] Dr. Marvin Reis Crystals LM Nom (Urine sed) NONE SEEN Normal NONE SEEN [facility] Comment on above: Performed By: #### U AMIC #### [facility] [address] [address] [address] Marvin Reis Epithelial cells LM Ql (Urine sed) FEW Abnormal NONE SEEN /RARE [facility] Comment on above: Performed By: #### U AMIC #### [facility] [address] [place] [address] Dr. Marvin Reis Glucose Ql (U) Negative Normal NEGATIVE [facility] Comment on above: Performed By: #### U AMIC #### [facility] [address] [address] [address] Marvin Reis Hemoglobin Ql (U) TRACE-INTACT Abnormal NEGATIVE [facility] Comment on above: Performed By: #### U AMIC #### [facility] [address] [place] [address] Dr. Marvin Reis Ketones Ql (U) Negative Normal NEGATIVE [facility] Comment on above: Performed By: #### U AMIC #### [facility] [address] [place] [address] Dr. Marvin Reis LEUKOCYTES SMALL Abnormal NEGATIVE [facility] Comment on above: Performed By: #### U AMIC #### [facility] [address] [address] [address] Marvin Reis MUCOUS NONE SEEN Normal NONE SEEN [facility] Comment on above: Performed By: #### U AMIC #### [facility] [address] [place] [address] Dr. Marvin Reis Nitrite Ql (U) Negative Normal NEGATIVE [facility] Comment on above: Performed By: #### U AMIC #### [facility] [address] [place] [address] Dr. Marvin Reis pH (U) 6.0 [pH] Normal 5-9 [facility] Comment on above: Performed By: #### U AMIC #### [facility] [address] [place] [address] Dr. Marvin Reis RBC 0-2 Normal 0-2 [facility] Comment on above: Performed By: #### U AMIC #### [facility] [address] [place] [address] Dr. Marvin Reis SPEC GRAVITY 1.010 Normal 1.005-<=1.025 [facility] Comment on above: Performed By: #### U AMIC #### [facility] [address] [place] [address] Dr. Marvin Reis UA PROTEIN Negative Normal NEGATIVE/ TRACE [facility] Comment on above: Performed By: #### U AMIC #### [facility] [address] [address] [address] Marvin Reis Urobilinogen Qn (U) 0.2 {Robbie'U}/dL Normal 0.2 - 1. 0 [facility] Comment on above: Performed By: #### U AMIC #### [facility] [address] [place] [address] Dr. Marvin Reis WBC 2-5 Abnormal NONE SEEN [facility] Comment on above: Performed By: #### U AMIC #### [facility] [address] [place] [address] Dr. Marvin Reis CULTURE URINEon 03-27-2022 CULTURE URINE Culture Observations : METHICILLIN RESISTANT STAPH AUREUS ISOLATED. PLEASE FOLLOW APPROPRIATE ISOLATION PROCEDURES. Culture Observations: MRSA called to Sophy You LPN at office 03/27/22 @0820 bl Isolate 1 Staphylococcus aureus >100,000 cfu/ml of [...] Trimethoprim/Sulfamet hoxazole >=320 R F Normal The [facility] Comment on above: Performed By: #### U RCX #### [facility] [address] [place] [address] Dr. Marvin Reis UA RANDOM W/MICROSCOPICon BACTERIA TRACE Abnormal NONE SEEN [facility] Comment on above: Performed By: #### U RCX #### [facility] [address] [address] [address] Marvin Reis Bilirubin Ql (U) Negative Normal NEGATIVE The [facility] Comment on above: Performed By: #### U RCX #### [facility] [address] [address] [address] Marvin Reis CAST NONE SEEN Normal NONE SEEN [facility] Comment on above: Performed By: #### U RCX #### [facility] [address] [address] [address] Marvin Reis Clarity (U) CLEAR Normal CLEAR [facility] Comment on above: Performed By: #### U RCX #### [facility] [address] [address] [address] Marvin Reis Color (U) LT. YELLOW Normal YELLOW [facility] Comment on above: Performed By: #### U RCX #### [facility] [address] [address] [address] Marvin Reis Crystals LM Nom (Urine sed) NONE SEEN Normal NONE SEEN [facility] Comment on above: Performed By: #### U RCX #### [facility] [address] [place] [address] Dr. Marvin Reis Epithelial cells LM Ql (Urine sed) FEW Abnormal NONE SEEN /RARE [facility] Comment on above: Performed By: #### U RCX #### [facility] [address] [place] [address] Dr. Marvin Reis Glucose Ql (U) Negative Normal NEGATIVE The [facility] Comment on above: Performed By: #### U RCX #### [facility] [address] [address] [address] Marvin Reis Hemoglobin Ql (U) SMALL Abnormal NEGATIVE The [facility] Comment on above: Performed By: #### U RCX #### [facility] [address] [address] [address] Marvin Reis Ketones Ql (U) Negative Normal NEGATIVE [facility] Comment on above: Performed By: #### U RCX #### [facility] [address] [place] [address] Dr. Marvin Reis LEUKOCYTES MODERATE Abnormal NEGATIVE [facility] Comment on above: Performed By: #### U RCX #### [facility] [address] [address] [address] Marvin Reis MUCOUS NONE SEEN Normal NONE SEEN [facility] Comment on above: Performed By: #### U RCX #### [facility] [address] [place] [address] Dr. Marvin Reis Nitrite Ql (U) Negative Normal NEGATIVE [facility] Comment on above: Performed By: #### U RCX #### [facility] [address] [place] [address] Dr. Marvin Reis pH (U) 5.5 [pH] Normal 5-9 [facility] Comment on above: Performed By: #### U RCX #### [facility] [address] [place] [address] Dr. Marvin Reis RBC NONE SEEN Abnormal 0-2 [facility] Comment on above: Performed By: #### U RCX #### [facility] [address] [place] [address] Dr. Marvin Reis SPEC GRAVITY 1.015 Normal 1.005-<=1.025 The [facility] Comment on above: Performed By: #### U RCX #### [facility] [address] [place] [address] Dr. Marvin Reis UA PROTEIN Negative Normal NEGATIVE/ TRACE [facility] Comment on above: Performed By: #### U RCX #### [facility] [address] [place] [address] Dr. Marvin Reis Urobilinogen Qn (U) 0.2 {Robbie'U}/dL Normal 0.2 - 1. 0 [facility] Comment on above: Performed By: #### U RCX #### [facility] [address] [place] [address] Dr. Marvin Reis WBC 20-50 Abnormal NONE SEEN [facility] Comment on above: Performed By: #### U RCX #### [facility] [address] [place] [address] Dr. Marvin Reis YEAST PRESENT Abnormal NONE SEEN [facility] Comment on above: Performed By: #### U RCX #### [facility] [address] [place] [address] Dr. Marvin Reis CULTURE URINEon 03-18-2022 CULTURE URINE Culture Observations : No growth Normal [facility] Comment on above: Performed By: #### U RCX #### [facility] [address] [place] [address] Dr. Marvin Reis UA RANDOM W/MICROSCOPICon BACTERIA NONE SEEN Normal NONE SEEN [facility] Comment on above: Performed By: #### U AMIC #### [facility] [address] [place] [address] Dr. Marvin Reis Bilirubin Ql (U) Negative Normal NEGATIVE [facility] Comment on above: Performed By: #### U AMIC #### [facility] [address] [place] [address] Dr. Marvin Reis CAST NONE SEEN Normal NONE SEEN [facility] Comment on above: Performed By: #### U AMIC #### [facility] [address] [place] [address] Dr. Marvin Reis Clarity (U) CLOUDY Abnormal CLEAR [facility] Comment on above: Performed By: #### U AMIC #### [facility] [address] [place] [address] Dr. Marvin Reis Color (U) LT. YELLOW Normal YELLOW [facility] Comment on above: Performed By: #### U AMIC #### [facility] [address] [place] [address] Dr. Marvin Reis Crystals LM Nom (Urine sed) NONE SEEN Normal NONE SEEN [facility] Comment on above: Performed By: #### U AMIC #### [facility] [address] [place] [address] Dr. Marvin Reis Epithelial cells LM Ql (Urine sed) RARE Normal NONE SEEN /RARE [facility] Comment on above: Performed By: #### U AMIC #### [facility] [address] [place] [address] Dr. Marvin Reis Glucose Ql (U) Negative Normal NEGATIVE [facility] Comment on above: Performed By: #### U AMIC #### [facility] [address] [address] [address] Marvin Reis Hemoglobin Ql (U) TRACE-INTACT Abnormal NEGATIVE [facility] Comment on above: Performed By: #### U AMIC #### [facility] [address] [address] [address] Marvin Reis Ketones Ql (U) Negative Normal NEGATIVE [facility] Comment on above: Performed By: #### U AMIC #### [facility] [address] [address] [address] Marvin Reis LEUKOCYTES MODERATE Abnormal NEGATIVE [facility] Comment on above: Performed By: #### U AMIC #### [facility] [address] [place] [address] Dr. Marvin Reis MUCOUS NONE SEEN Normal NONE SEEN [facility] Comment on above: Performed By: #### U AMIC #### [facility] [address] [place] [address] Dr. Marvin Reis Nitrite Ql (U) Negative Normal NEGATIVE [facility] Comment on above: Performed By: #### U AMIC #### [facility] [address] [place] [address] Dr. Marvin Reis pH (U) 6.0 [pH] Normal 5-9 [facility] Comment on above: Performed By: #### U AMIC #### [facility] [address] [address] [address] Marvin Reis RBC NONE SEEN Abnormal 0-2 [facility] Comment on above: Performed By: #### U AMIC #### [facility] [address] [place] [address] Dr. Marvin eRis SPEC GRAVITY 1.015 Normal 1.005-<=1.025 [facility] Comment on above: Performed By: #### U AMIC #### [facility] [address] [place] [address] Dr. Marvin Reis UA PROTEIN Negative Normal NEGATIVE/ TRACE [facility] Comment on above: Performed By: #### U AMIC #### [facility] [address], [place] [address] Dr. Marvin Reis Urobilinogen Qn (U) 0.2 {Robbie'U}/dL Normal 0.2 - 1. 0 [facility] Comment on above: Performed By: #### U AMIC #### [facility] [id number] Marvin Reis WBC 10-20 Abnormal NONE SEEN [facility] Comment on above: Performed By: #### U AMIC #### [facility] [address], [place] [address] Dr. Marvin Reis Coding Summary.on 06-21-2020 Coding Summary. CODING DATE: 06/21/[address] [facility] STATUS: PAYOR: Worker's Compensation ADMIT DX: [...] Hopper CphT Date Saved: 06/21/2020 12:01 pm [facility] PT - Assessmentson 0 PT - Assessments [id number]# 1.00CD:127 [facility] PT - Orderson 06-20-2020 PT - Orders [id number]# 1.00CD:127 [facility] PT - Workers Compon 06-20-20 20 PT - Workers Comp [id number] [phone] [id number]# 1.00CD:127 [facility] Summary Purpose Family History No Family History [...] section and content) DATE CREATED AUTHOR 09/19/2020 Larry [facility] DATE CREATED AUTHOR AUTHOR'S ORGANIZ ATION 03/06/2023 [facility] DATE CREATED AUTHOR AUTHOR'S ORGANIZ ATION 03/11/2023 [facility] DATE CREATED AUTHOR AUTHOR'S ORGANIZ ATION 06/07/2023 [facility] FOR RECORDS PERTAINING TO PATIENTS WHO [...] BE BASED ON THE PRIMARY CLINICAL RECORDS. [facility] provides no warranty or guarantee of the accuracy or completeness of information in this document.
[2024-03-26 15:00] LABS: Bilirubin Urine NEGATIVE (NEGATIVE); Blood Urine TRACE-I (NEGATIVE); Clarity Urine CLEAR (CLEAR); Color Urine LT. YELLOW (YELLOW); Glucose Urine UA NEGATIVE (NEGATIVE); Ketones Urine NEGATIVE (NEGATIVE); Leukocyte Esterase Urine MODERATE (NEGATIVE); Nitrite Urine NEGATIVE (NEGATIVE); Protein Urine NEGATIVE (NEG/TRACE); Specific Gravity Urine 1.015 (1.005-1.025); Urobilinogen Urine 0.2 EU/dL (0.2-1.0)
[2024-03-26 15:34] LABS: Bacteria Urine SMALL #/HPF (NONE SEEN); Cast Seen? NONE SEEN #/LPF (NONE SEEN); Crystals Seen? None Seen #/HPF (None Seen); Mucus Urine NONE SEEN (NONE SEEN); Squamous Epithelial Cell Urine FEW #/LPF (NONE/RARE); WBC Urine 50-75 #/HPF (NONE SEEN)
== END 2024-03-26 13:03 | disposition home or self-care (01) ==
LOC: LAB 13:02
PROVIDERS: PCP Family Medicine; Visit Provider Family Medicine
DX: N31.8 Other neuromuscular dysfunction of bladder (principal); N39.0 Urinary tract infection, site not specified
CPT/HCPCS: 81001; 87086; 87150; 87186

== ENCOUNTER 2024-04-13 15:10 | Outpatient (OUT) | payer OTHER, SELFPAY ==
[2024-04-13 15:22] LABS: Bilirubin Urine NEGATIVE (NEGATIVE); Blood Urine MODERATE (NEGATIVE); Clarity Urine CLEAR (CLEAR); Color Urine LT. YELLOW (YELLOW); Glucose Urine UA NEGATIVE (NEGATIVE); Ketones Urine NEGATIVE (NEGATIVE); Leukocyte Esterase Urine LARGE (NEGATIVE); Nitrite Urine NEGATIVE (NEGATIVE); Protein Urine 100 mg/dL (NEG/TRACE); Urobilinogen Urine 0.2 EU/dL (0.2-1.0)
[2024-04-13 15:29] LABS: Bacteria Urine LARGE #/HPF (NONE SEEN); Mucus Urine NONE SEEN (NONE SEEN); Squamous Epithelial Cell Urine FEW #/LPF (NONE/RARE); Urine Culture Indicated ALREADY ORDERED; WBC Urine >100 #/HPF (NONE SEEN)
--- OUTSIDE RECORDS SUMMARY | 2024-04-13 15:29 | XMS_ITS | CCD ---
Author Organization [facility] Care Team Providers Care Etiology Teacher Name Role Phone HOY ., DR WEBBER [...] Unavailable HOY ., DR WEBBER Admherman Unavailable [place], DR MAGY [employer] Unavailable HOY ., [...] source) ceFAZolin Drug Allergy 04-21-20 13 [facility] (1 source) Cilastatin / Imipenem Drug Allergy 04-21-20 13 [facility] (1 source) Readi-Cat Drug allergy (disorder) 04-21-20 13 [facility] (1 source) ceFAZolin; Translations: [CEFAZOLIN] Drug Allergy 12-01-19 13 [facility] (1 source) Cephalexin; Translations: [CEPHALEXIN MONOHYDRATE] Drug Allergy 08-03-20 09 [facility] (1 source) Promazine; Translations: [PROMAZINE] Drug Allergy 12-01-19 13 [facility] (1 source) Sulfamethoxazole / Trimethoprim; Translations: [SULFAMETHOXAZOLE-TR IMETHOPRIM] Drug Allergy 03-10-20 23 [facility] (1 source) IODINATED CONTRAST MEDIA; Translations: [IODINATED CONTRAST MEDIA] Propensity to adverse reactions to drug (disorder) 12-01-19 13 [facility] Problems Active Problems Problem Classification [...] RESISTANT TO ALL B-LACTAM DRUGS. PERFORMED BY: [place] [address] PATHOLOGIST BELT LOOP MACHINE OPERATOR MARLA VEGA M.D. [facility] Comment on above: Performed By: #### A MAI LAYNE #### [place] [id number] [place] Gram Stainon 06-03-2023 Microscopic observation Gram stain Nom (Unsp spec) Gram Stain Result No Bacteria Seen PERFORMED BY: [place] [address] PATHOLOGIST BELT LOOP MACHINE OPERATOR MARLA VEGA M.D. [facility] Comment on above: Performed By: #### A MAI LAYNE #### [place] [id number] [place] CULTURE URINEon 03-06-2023 CULTURE URINE Isolate [...] F Levofloxacin 2 S F Normal [facility] Comment on above: Performed By: #### U RCX #### [facility] [address] [place] [address] Dr. Marvin Reis UA RANDOM W/MICROSCOPICon BACTERIA SMALL Abnormal NONE SEEN [facility] Comment on above: Performed By: #### U AMIC #### [facility] [address] [place] [address] Dr. Marvin Reis Bilirubin Ql (U) Negative Normal NEGATIVE [facility] Comment on above: Performed By: #### U AMIC #### [facility] [address] [place] [address] Dr. Marvin Reis CAST NONE SEEN Normal NONE SEEN [facility] Comment on above: Performed By: #### U AMIC #### [facility] [address] [place] [address] Dr. Marvin Reis Clarity (U) CLEAR Normal CLEAR [facility] Comment on above: Performed By: #### U AMIC #### [facility] [address] [place] [address] Dr. Marvin Reis Color (U) LT. YELLOW Normal YELLOW [facility] Comment on above: Performed By: #### U AMIC #### [facility] [address] [address] [address] Marvin Reis Crystals LM Nom (Urine sed) NONE SEEN Normal NONE SEEN [facility] Comment on above: Performed By: #### U AMIC #### [facility] [address] [place] [address] Dr. Marvin Reis Epithelial cells LM Ql (Urine sed) RARE Normal NONE SEEN /RARE [facility] Comment on above: Performed By: #### U AMIC #### [facility] [address] [address] [address] Marvin Reis Glucose Ql (U) Negative Normal NEGATIVE The [facility] Comment on above: Performed By: #### U AMIC #### [facility] [address] [place] [address] Dr. Marvin Reis Hemoglobin Ql (U) Negative Normal NEGATIVE [facility] Comment on above: Performed By: #### U AMIC #### [facility] [address] [place] [address] Dr. Marvin Reis Ketones Ql (U) Negative Normal NEGATIVE The [facility] Comment on above: Performed By: #### U AMIC #### [facility] [address] [place] [address] Dr. Marvin Reis LEUKOCYTES SMALL Abnormal NEGATIVE [facility] Comment on above: Performed By: #### U AMIC #### [facility] [address] [place] [address] Dr. Marvin Reis MUCOUS NONE SEEN Normal NONE SEEN [facility] Comment on above: Performed By: #### U AMIC #### [facility] [address] [place] [address] Dr. Marvin Reis Nitrite Ql (U) Negative Normal NEGATIVE The [facility] Comment on above: Performed By: #### U AMIC #### [facility] [address] [place] [address] Dr. Marvin Reis pH (U) 6.0 [pH] Normal 5-9 [facility] Comment on above: Performed By: #### U AMIC #### [facility] [address] [place] [address] Dr. Marvin Reis RBC 0-2 Normal 0-2 [facility] Comment on above: Performed By: #### U AMIC #### [facility] [address] [place] [address] Dr. Marvin Reis SPEC GRAVITY 1.010 Normal 1.005-<=1.025 [facility] Comment on above: Performed By: #### U AMIC #### [facility] [address] [address] [address] Marvin Reis UA PROTEIN Negative Normal NEGATIVE/ TRACE [facility] Comment on above: Performed By: #### U AMIC #### [facility] [address] [place] [address] Dr. Marvin Reis Urobilinogen Qn (U) 0.2 {Robbie'U}/dL Normal 0.2 - 1. 0 [facility] Comment on above: Performed By: #### U AMIC #### [facility] [address] [place] [address] Dr. Marvin Reis WBC 5-10 Abnormal NONE SEEN [facility] Comment on above: Performed By: #### U AMIC #### [facility] [address] [place] [address] Dr. Marvin Reis CULTURE URINEon 02-13-2023 CULTURE [...] F Levofloxacin 2 S F Normal [facility] Comment on above: Performed By: #### U RCX #### [facility] [address] [place] [address] Dr. Marvin Reis UA RANDOM W/MICROSCOPICon BACTERIA MODERATE Abnormal NONE SEEN [facility] Comment on above: Performed By: #### U AMIC #### [facility] [address] [place] [address] Dr. Marvin Reis Bilirubin Ql (U) Negative Normal NEGATIVE [facility] Comment on above: Performed By: #### U AMIC #### [facility] [address] [place] [address] Dr. Marvin Reis CAST NONE SEEN Normal NONE SEEN [facility] Comment on above: Performed By: #### U AMIC #### [facility] [address] [place] [address] Dr. Marvin Reis Clarity (U) CLEAR Normal CLEAR [facility] Comment on above: Performed By: #### U AMIC #### [facility] [address] [place] [address] Dr. Marvin Reis Color (U) LT. YELLOW Normal YELLOW [facility] Comment on above: Performed By: #### U AMIC #### [facility] [address] [place] [address] Dr. Marvin Reis Crystals LM Nom (Urine sed) NONE SEEN Normal NONE SEEN [facility] Comment on above: Performed By: #### U AMIC #### [facility] [address] [place] [address] Dr. Marvin Reis Epithelial cells LM Ql (Urine sed) MODERATE Abnormal NONE SEEN /RARE [facility] Comment on above: Performed By: #### U AMIC #### [facility] [address] [place] [address] Dr. Marvin Reis Glucose Ql (U) Negative Normal NEGATIVE The [facility] Comment on above: Performed By: #### U AMIC #### [facility] [address] [place] [address] Dr. Marvin Reis Hemoglobin Ql (U) SMALL Abnormal NEGATIVE [facility] Comment on above: Performed By: #### U AMIC #### [facility] [address] [address] [address] Marvin Reis Ketones Ql (U) Negative Normal NEGATIVE The [facility] Comment on above: Performed By: #### U AMIC #### [facility] [address] [address] [address] Marvin Reis LEUKOCYTES LARGE Abnormal NEGATIVE [facility] Comment on above: Performed By: #### U AMIC #### [facility] [address] [address] [address] Marvin Reis MUCOUS NONE SEEN Normal NONE SEEN [facility] Comment on above: Performed By: #### U AMIC #### [facility] [address] [place] [address] Dr. Marvin Reis Nitrite Ql (U) Positive Abnormal NEGATIVE The [facility] Comment on above: Performed By: #### U AMIC #### [facility] [address] [address] [address] Marvin Reis pH (U) 5.5 [pH] Normal 5-9 [facility] Comment on above: Performed By: #### U AMIC #### [facility] [address] [address] [address] Marvin Reis RBC 5-10 Abnormal 0-2 [facility] Comment on above: Performed By: #### U AMIC #### [facility] [address] [address] [address] Marvin Reis SPEC GRAVITY 1.015 Normal 1.005-<=1.025 [facility] Comment on above: Performed By: #### U AMIC #### [facility] [address] [address] [address] Marvin Reis UA PROTEIN Negative Normal NEGATIVE/ TRACE [facility] Comment on above: Performed By: #### U AMIC #### [facility] [address] [place] [address] Dr. Marvin Reis Urobilinogen Qn (U) 0.2 {Robbie'U}/dL Normal 0.2 - 1. 0 [facility] Comment on above: Performed By: #### U AMIC #### [facility] [address] [place] [address] Dr. Marvin Reis WBC 50-75 Abnormal NONE SEEN [facility] Comment on above: Performed By: #### U AMIC #### [facility] [id number] Marvin Reis CULTURE URINEon 01-23-2023 CULTURE [...] Trimethoprim/Sulfamet hoxazole <=10 S F Normal [facility] Comment on above: Performed By: #### U AMIC #### [facility] [address] [place] [address] Dr. Marvin Reis UA RANDOM W/MICROSCOPICon BACTERIA TRACE Abnormal NONE SEEN [facility] Comment on above: Performed By: #### U AMIC #### [facility] [address] [place] [address] Dr. Marvin Reis Bilirubin Ql (U) Negative Normal NEGATIVE [facility] Comment on above: Performed By: #### U AMIC #### [facility] [address] [address] [address] Marvin Reis CAST NONE SEEN Normal NONE SEEN [facility] Comment on above: Performed By: #### U AMIC #### [facility] [address] [address] [address] Marvin Reis Clarity (U) SL CLOUDY Abnormal CLEAR [facility] Comment on above: Performed By: #### U AMIC #### [facility] [address] [address] [address] Marvin Reis Color (U) LT. YELLOW Normal YELLOW [facility] Comment on above: Performed By: #### U AMIC #### [facility] [address] [place] [address] Dr. Marvin Reis Crystals LM Nom (Urine sed) NONE SEEN Normal NONE SEEN [facility] Comment on above: Performed By: #### U AMIC #### [facility] [address] [place] [address] Dr. Marvin Reis Epithelial cells LM Ql (Urine sed) NONE SEEN Normal NONE SEEN /RARE [facility] Comment on above: Performed By: #### U AMIC #### [facility] [address] [place] [address] Dr. Marvin Reis Glucose Ql (U) Negative Normal NEGATIVE The [facility] Comment on above: Performed By: #### U AMIC #### [facility] [address] [address] [address] Marvin Reis Hemoglobin Ql (U) Negative Normal NEGATIVE [facility] Comment on above: Performed By: #### U AMIC #### [facility] [address] [address] [address] Marvin Reis Ketones Ql (U) Negative Normal NEGATIVE The [facility] Comment on above: Performed By: #### U AMIC #### [facility] [address] [place] [address] Dr. Marvin Reis LEUKOCYTES TRACE Abnormal NEGATIVE [facility] Comment on above: Performed By: #### U AMIC #### [facility] [address] [address] [address] Marvin Reis MUCOUS NONE SEEN Normal NONE SEEN [facility] Comment on above: Performed By: #### U AMIC #### [facility] [address] [place] [address] Dr. Marvin Reis Nitrite Ql (U) Negative Normal NEGATIVE The [facility] Comment on above: Performed By: #### U AMIC #### [facility] [address] [place] [address] Dr. Marvin Reis pH (U) 6.0 [pH] Normal 5-9 [facility] Comment on above: Performed By: #### U AMIC #### [facility] [address] [place] [address] Dr. Marvin Reis RBC NONE SEEN Abnormal 0-2 [facility] Comment on above: Performed By: #### U AMIC #### [facility] [address] [place] [address] Dr. Marvin Reis SPEC GRAVITY 1.020 Normal 1.005-<=1.025 [facility] Comment on above: Performed By: #### U AMIC #### [facility] [address] [place] [address] Dr. Marvin Reis UA PROTEIN Negative Normal NEGATIVE/ TRACE [facility] Comment on above: Performed By: #### U AMIC #### [facility] [address] [place] [address] Dr. Marvin Reis Urobilinogen Qn (U) 0.2 {Robbie'U}/dL Normal 0.2 - 1. 0 [facility] Comment on above: Performed By: #### U AMIC #### [facility] [address] [place] [address] Dr. Marvin Reis WBC 10-20 Abnormal NONE SEEN [facility] Comment on above: Performed By: #### U AMIC #### [facility] [address] [place] [address] Dr. Marvin Reis CULTURE URINEon 01-07-2023 CULTURE URINE Isolate 1 Dawna albicans 10,000 cfu/mL of Normal [facility] Comment on above: Performed By: #### U RCX #### [facility] [address] [address] [address] Marvin Reis UA RANDOM W/MICROSCOPICon BACTERIA TRACE Abnormal NONE SEEN [facility] Comment on above: Performed By: #### U AMIC #### [facility] [address] [address] [address] Marvin Reis Bilirubin Ql (U) Negative Normal NEGATIVE [facility] Comment on above: Performed By: #### U AMIC #### [facility] [address] [address] [address] Marvin Reis CA OX CRYSTALS RARE Normal The [facility] Comment on above: Performed By: #### U AMIC #### [facility] [address] [address] [address] Marvin Reis CAST NONE SEEN Normal NONE SEEN [facility] Comment on above: Performed By: #### U AMIC #### [facility] [address] [address] [address] Marvin Reis Clarity (U) CLEAR Normal CLEAR [facility] Comment on above: Performed By: #### U AMIC #### [facility] [address] [address] [address] Marvin Reis Color (U) LT. YELLOW Normal YELLOW [facility] Comment on above: Performed By: #### U AMIC #### [facility] [address] [address] [address] Marvin Reis Crystals LM Nom (Urine sed) SEEN Abnormal NONE SEEN [facility] Comment on above: Performed By: #### U AMIC #### [facility] [address] [address] [address] Marvin Reis Epithelial cells LM Ql (Urine sed) FEW Abnormal NONE SEEN /RARE [facility] Comment on above: Performed By: #### U AMIC #### [facility] [address] [address] [address] Marvin Reis Glucose Ql (U) Negative Normal NEGATIVE The [facility] Comment on above: Performed By: #### U AMIC #### [facility] [address] [address] [address] Marivn Reis Hemoglobin Ql (U) Negative Normal NEGATIVE [facility] Comment on above: Performed By: #### U AMIC #### [facility] [address] [address] [address] Marvin Reis Ketones Ql (U) Negative Normal NEGATIVE The [facility] Comment on above: Performed By: #### U AMIC #### [facility] [address] [address] [address] Marvin Reis LEUKOCYTES SMALL Abnormal NEGATIVE [facility] Comment on above: Performed By: #### U AMIC #### [facility] [address] [place] [address] Dr. Marvin Reis MUCOUS NONE SEEN Normal NONE SEEN [facility] Comment on above: Performed By: #### U AMIC #### [facility] [address] [place] [address] Dr. Marvin Reis Nitrite Ql (U) Negative Normal NEGATIVE The [facility] Comment on above: Performed By: #### U AMIC #### [facility] [address] [place] [address] Dr. Marvin Reis pH (U) 5.5 [pH] Normal 5-9 [facility] Comment on above: Performed By: #### U AMIC #### [facility] [address] [place] [address] Dr. Marvin Reis RBC 0-2 Normal 0-2 [facility] Comment on above: Performed By: #### U AMIC #### [facility] [address] [place] [address] Dr. Marvin Reis SPEC GRAVITY 1.015 Normal 1.005-<=1.025 [facility] Comment on above: Performed By: #### U AMIC #### [facility] [address] [place] [address] Dr. Marvin Reis UA PROTEIN Negative Normal NEGATIVE/ TRACE [facility] Comment on above: Performed By: #### U AMIC #### [facility] [address] [place] [address] Dr. Marvin Reis Urobilinogen Qn (U) 0.2 {Robbie'U}/dL Normal 0.2 - 1. 0 [facility] Comment on above: Performed By: #### U AMIC #### [facility] [address] [place] [address] Dr. Marvin Reis WBC 50-75 Abnormal NONE SEEN [facility] Comment on above: Performed By: #### U AMIC #### [facility] [address] [place] [address] Dr. Marvin Reis YEAST PRESENT Abnormal NONE SEEN [facility] Comment on above: Performed By: #### U AMIC #### [facility] [address] [place] [address] Dr. Marvin Reis CULTURE URINEon 12-25-2022 CULTURE [...] Trimethoprim/Sulfamet hoxazole >=320 R F Normal [facility] Comment on above: Performed By: #### U RCX #### [facility] [address] [place] [address] Dr. Marvin Reis UA RANDOM W/MICROSCOPICon BACTERIA NONE SEEN Normal NONE SEEN [facility] Comment on above: Performed By: #### U AMIC #### [facility] [address] [place] [address] Dr. Marvin Reis Bilirubin Ql (U) Negative Normal NEGATIVE [facility] Comment on above: Performed By: #### U AMIC #### [facility] [address] [place] [address] Dr. Marvin Reis CAST NONE SEEN Normal NONE SEEN [facility] Comment on above: Performed By: #### U AMIC #### [facility] [address] [place] [address] Dr. Marvin Reis Clarity (U) CLEAR Normal CLEAR [facility] Comment on above: Performed By: #### U AMIC #### [facility] [address] [address] [address] Marvin Reis Color (U) LT. YELLOW Normal YELLOW [facility] Comment on above: Performed By: #### U AMIC #### [facility] [address] [place] [address] Dr. Marvin Reis Crystals LM Nom (Urine sed) NONE SEEN Normal NONE SEEN [facility] Comment on above: Performed By: #### U AMIC #### [facility] [address] [place] [address] Dr. Marvin Reis Epithelial cells LM Ql (Urine sed) RARE Normal NONE SEEN /RARE [facility] Comment on above: Performed By: #### U AMIC #### [facility] [address] [place] [address] Dr. Marvin Reis Glucose Ql (U) Negative Normal NEGATIVE The [facility] Comment on above: Performed By: #### U AMIC #### [facility] [address] [place] [address] Dr. Marvin Reis Hemoglobin Ql (U) Negative Normal NEGATIVE [facility] Comment on above: Performed By: #### U AMIC #### [facility] [address] [address] [address] Marvin Reis Ketones Ql (U) Negative Normal NEGATIVE The [facility] Comment on above: Performed By: #### U AMIC #### [facility] [address] [place] [address] Dr. Marvin Reis LEUKOCYTES MODERATE Abnormal NEGATIVE [facility] Comment on above: Performed By: #### U AMIC #### [facility] [address] [place] [address] Dr. Marvin Reis MUCOUS NONE SEEN Normal NONE SEEN [facility] Comment on above: Performed By: #### U AMIC #### [facility] [address] [place] [address] Dr. Marvin Reis Nitrite Ql (U) Negative Normal NEGATIVE The [facility] Comment on above: Performed By: #### U AMIC #### [facility] [address] [place] [address] Dr. Marvin Reis pH (U) 5.5 [pH] Normal 5-9 [facility] Comment on above: Performed By: #### U AMIC #### [facility] [address] [place] [address] Dr. Marvin Reis RBC NONE SEEN Abnormal 0-2 [facility] Comment on above: Performed By: #### U AMIC #### [facility] [address] [place] [address] Dr. Marvin Reis SPEC GRAVITY 1.015 Normal 1.005-<=1.025 [facility] Comment on above: Performed By: #### U AMIC #### [facility] [address] [place] [address] Dr. Marvin Reis UA PROTEIN Negative Normal NEGATIVE/ TRACE [facility] Comment on above: Performed By: #### U AMIC #### [facility] [address] [place] [address] Dr. Marvin Reis Urobilinogen Qn (U) 0.2 {Robbie'U}/dL Normal 0.2 - 1. 0 [facility] Comment on above: Performed By: #### U AMIC #### [facility] [address] [place] [address] Dr. Marvin Reis WBC 10-20 Abnormal NONE SEEN [facility] Comment on above: Performed By: #### U AMIC #### [facility] [address] [place] [address] Dr. Marvin Reis CULTURE URINEon 12-05-2022 CULTURE [...] Trimethoprim/Sulfamet hoxazole <=20 S F Normal [facility] Comment on above: Performed By: #### U RCX #### [facility] [address] [place] [address] Dr. Marvin Reis CREATININEon 12-03-2022 Creatinine [Mass/Vol] 0.88 mg/dL Normal 0.70-1.30 [facility] Comment on above: Performed By: #### U RCX #### [facility] [address] [place] [address] Dr. Marvin Resi EGFR-AF GHANAIAN >60 Normal >=60 [facility] Comment on above: Performed By: #### U RCX #### [facility] [address] [place] [address] Dr. Marvin Reis EGFR-NON AF GHANAIAN >60 Normal >=60 [facility] Comment on above: Performed By: #### U RCX #### [facility] [address] [place] [address] ABDOMEN WO/W CONon [...] ELENO PARKER Date: 2022-12-03 14:51 Normal [facility] UA RANDOM W/MICROSCOPICon BACTERIA TRACE Abnormal NONE SEEN [facility] Comment on above: Performed By: #### U RCX #### [facility] [address] [place] [address] Dr. Marvin Reis Bilirubin Ql (U) Negative Normal NEGATIVE [facility] Comment on above: Performed By: #### U RCX #### [facility] [address] [place] [address] Dr. Marvin Reis CAST NONE SEEN Normal NONE SEEN [facility] Comment on above: Performed By: #### U RCX #### [facility] [address] [place] [address] Dr. Marvin Reis Clarity (U) CLEAR Normal CLEAR [facility] Comment on above: Performed By: #### U RCX #### [facility] [address] [place] [address] Dr. Marvin Reis Color (U) LT. YELLOW Normal YELLOW [facility] Comment on above: Performed By: #### U RCX #### [facility] [address] [place] [address] Dr. Marvin Reis Crystals LM Nom (Urine sed) NONE SEEN Normal NONE SEEN [facility] Comment on above: Performed By: #### U RCX #### [facility] [address] [place] [address] Dr. Marvin Reis Epithelial cells LM Ql (Urine sed) RARE Normal NONE SEEN /RARE [facility] Comment on above: Performed By: #### U RCX #### [facility] [address] [address] [address] Marvin Reis Glucose Ql (U) Negative Normal NEGATIVE The [facility] Comment on above: Performed By: #### U RCX #### [facility] [address] [address] [address] Marvin Reis Hemoglobin Ql (U) TRACE-INTACT Abnormal NEGATIVE [facility] Comment on above: Performed By: #### U RCX #### [facility] [address] [address] [address] Marvin Reis Ketones Ql (U) Negative Normal NEGATIVE The [facility] Comment on above: Performed By: #### U RCX #### [facility] [address] [place] [address] Dr. Marvin Reis LEUKOCYTES TRACE Abnormal NEGATIVE [facility] Comment on above: Performed By: #### U RCX #### [facility] [address] [address] [address] Marvin Reis MUCOUS TRACE Abnormal NONE SEEN [facility] Comment on above: Performed By: #### U RCX #### [facility] [address] [place] [address] Dr. Marvin Reis Nitrite Ql (U) Negative Normal NEGATIVE [facility] Comment on above: Performed By: #### U RCX #### [facility] [address] [address] [address] Marvin Reis pH (U) 5.0 [pH] Normal 5-9 [facility] Comment on above: Performed By: #### U RCX #### [facility] [address] [address] [address] Marvin Reis RBC 0-2 Normal 0-2 [facility] Comment on above: Performed By: #### U RCX #### [facility] [address] [place] [address] Dr. Marvin Reis SPEC GRAVITY 1.010 Normal 1.005-<=1.025 [facility] Comment on above: Performed By: #### U RCX #### [facility] [address] [place], [place] [address] Dr. Marvin Reis UA PROTEIN TRACE Normal NEGATIVE/ TRACE The [facility] Comment on above: Performed By: #### U RCX #### [facility] [address] [place], [place] [address] Dr. Marvin Reis Urobilinogen Qn (U) 0.2 {Robbie'U}/dL Normal 0.2 - 1. 0 [facility] Comment on above: Performed By: #### U RCX #### [facility] [address] [address] [address] Marvin Reis WBC 2-5 Abnormal NONE SEEN [facility] Comment on above: Performed By: #### U RCX #### [facility] [address] ABD/PELVIS WO CONon [...] MAGY COMER Date: 2022-11-20 14:51 Normal [facility] CULTURE URINEon 11-11-2022 CULTURE URINE Culture Observations : GUSTABO TO FOLLOW. Isolate 1 Enterobacter aerogenes >100,000 cfu/mL of Normal [facility] Comment on above: Performed By: #### U RCX #### [facility] [address] [place] [address] Dr. Marvin Reis UA RANDOM W/MICROSCOPICon BACTERIA SMALL Abnormal NONE SEEN [facility] Comment on above: Performed By: #### U AMIC #### [facility] [address] [place] [address] Dr. Marvin Reis Bilirubin Ql (U) Negative Normal NEGATIVE [facility] Comment on above: Performed By: #### U AMIC #### [facility] [address] [place] [address] Dr. Marvin Reis CAST NONE SEEN Normal NONE SEEN [facility] Comment on above: Performed By: #### U AMIC #### [facility] [address] [place] [address] Dr. Marvin Reis Clarity (U) CLOUDY Abnormal CLEAR [facility] Comment on above: Performed By: #### U AMIC #### [facility] [address] [place] [address] Dr. Marvin Reis Color (U) LT. YELLOW Normal YELLOW [facility] Comment on above: Performed By: #### U AMIC #### [facility] [address] [address] [address] Marvin Reis Crystals LM Nom (Urine sed) NONE SEEN Normal NONE SEEN [facility] Comment on above: Performed By: #### U AMIC #### [facility] [address] [address] [address] Marvin Reis Epithelial cells LM Ql (Urine sed) NONE SEEN Normal NONE SEEN /RARE [facility] Comment on above: Performed By: #### U AMIC #### [facility] [address] [address] [address] Marvin Reis Glucose Ql (U) Negative Normal NEGATIVE The [facility] Comment on above: Performed By: #### U AMIC #### [facility] [address] [place] [address] Dr. Marvin Reis Hemoglobin Ql (U) TRACE-INTACT Abnormal NEGATIVE [facility] Comment on above: Performed By: #### U AMIC #### [facility] [address] [address] [address] Marvin Reis Ketones Ql (U) Negative Normal NEGATIVE The [facility] Comment on above: Performed By: #### U AMIC #### [facility] [address] [address] [address] Marvin Reis LEUKOCYTES LARGE Abnormal NEGATIVE [facility] Comment on above: Performed By: #### U AMIC #### [facility] [address] [address] [address] Marvin Reis MUCOUS NONE SEEN Normal NONE SEEN [facility] Comment on above: Performed By: #### U AMIC #### [facility] [address] [place] [address] Dr. Marvin Reis Nitrite Ql (U) Positive Abnormal NEGATIVE The [facility] Comment on above: Performed By: #### U AMIC #### [facility] [address] [place] [address] Dr. Marvin Reis pH (U) 5.5 [pH] Normal 5-9 [facility] Comment on above: Performed By: #### U AMIC #### [facility] [address] [place] [address] Dr. Marvin Reis RBC 0-2 Normal 0-2 [facility] Comment on above: Performed By: #### U AMIC #### [facility] [address] [place] [address] Dr. Marvin Reis SPEC GRAVITY 1.015 Normal 1.005-<=1.025 [facility] Comment on above: Performed By: #### U AMIC #### [facility] [address] [place] [address] Dr. Marvin Reis UA PROTEIN Negative Normal NEGATIVE/ TRACE [facility] Comment on above: Performed By: #### U AMIC #### [facility] [address] [place] [address] Dr. Marvin Reis Urobilinogen Qn (U) 0.2 {Robbie'U}/dL Normal 0.2 - 1. 0 [facility] Comment on above: Performed By: #### U AMIC #### [facility] [address] [place] [address] Dr. Marvin Reis WBC 10-20 Abnormal NONE SEEN [facility] Comment on above: Performed By: #### U AMIC #### [facility] [address] [place] [address] Dr. Marvin Reis CULTURE URINEon 10-24-2022 CULTURE [...] Trimethoprim/Sulfamet hoxazole <=20 S F Normal [facility] Comment on above: Performed By: #### U RCX #### [facility] [address] [place] [address] Dr. Marvin Reis UA RANDOM W/MICROSCOPICon BACTERIA LARGE Abnormal NONE SEEN [facility] Comment on above: Performed By: #### U AMIC #### [facility] [address] [address] [address] Marvin Reis Bilirubin Ql (U) Negative Normal NEGATIVE [facility] Comment on above: Performed By: #### U AMIC #### [facility] [address] [address] [address] Marvin Reis CAST NONE SEEN Normal NONE SEEN [facility] Comment on above: Performed By: #### U AMIC #### [facility] [address] [address] [address] Marvin Reis Clarity (U) SL CLOUDY Abnormal CLEAR [facility] Comment on above: Performed By: #### U AMIC #### [facility] [address] [address] [address] Marvin Reis Color (U) YELLOW Normal YELLOW [facility] Comment on above: Performed By: #### U AMIC #### [facility] [address] [address] [address] Marvin Reis Crystals LM Nom (Urine sed) NONE SEEN Normal NONE SEEN [facility] Comment on above: Performed By: #### U AMIC #### [facility] [address] [address] [address] Marvin Reis Epithelial cells LM Ql (Urine sed) FEW Abnormal NONE SEEN /RARE [facility] Comment on above: Performed By: #### U AMIC #### [facility] [address] [address] [address] Marvin Reis Glucose Ql (U) Negative Normal NEGATIVE The [facility] Comment on above: Performed By: #### U AMIC #### [facility] [address] [address] [address] Marvin Reis Hemoglobin Ql (U) TRACE-INTACT Abnormal NEGATIVE [facility] Comment on above: Performed By: #### U AMIC #### [facility] [address] [address] [address] Marvin Reis Ketones Ql (U) Negative Normal NEGATIVE The [facility] Comment on above: Performed By: #### U AMIC #### [facility] [address] [address] [address] Marvin Reis LEUKOCYTES LARGE Abnormal NEGATIVE [facility] Comment on above: Performed By: #### U AMIC #### [facility] [address] [address] [address] Marvin Reis MUCOUS NONE SEEN Normal NONE SEEN [facility] Comment on above: Performed By: #### U AMIC #### [facility] [address] [address] [address] Marvin Reis Nitrite Ql (U) Negative Normal NEGATIVE The [facility] Comment on above: Performed By: #### U AMIC #### [facility] [address] [address] [address] Marvin Reis pH (U) 5.0 [pH] Normal 5-9 [facility] Comment on above: Performed By: #### U AMIC #### [facility] [address] [address] [address] Marvin Reis RBC 5-10 Abnormal 0-2 [facility] Comment on above: Performed By: #### U AMIC #### [facility] [address] [address] [address] Marvin Reis SPEC GRAVITY 1.010 Normal 1.005-<=1.025 [facility] Comment on above: Performed By: #### U AMIC #### [facility] [address] [place] [address] Dr. Marvin Reis UA PROTEIN Negative Normal NEGATIVE/ TRACE [facility] Comment on above: Performed By: #### U AMIC #### [facility] [address] [place] [address] Dr. Marvin Reis Urobilinogen Qn (U) 0.2 {Robbie'U}/dL Normal 0.2 - 1. 0 [facility] Comment on above: Performed By: #### U AMIC #### [facility] [address] [address] [address] Marvin Reis WBC 50-75 Abnormal NONE SEEN [facility] Comment on above: Performed By: #### U AMIC #### [facility] [address] [address] [address] Marvin Reis CULTURE URINEon 10-01-2022 CULTURE URINE Culture Observations : NO GROWTH. Normal [facility] Comment on above: Performed By: #### U AMIC #### [facility] [address] [address] [address] Marvin Reis UA RANDOM W/MICROSCOPICon BACTERIA SMALL Abnormal NONE SEEN [facility] Comment on above: Performed By: #### U AMIC #### [facility] [address] [address] [address] Marvin Reis Bilirubin Ql (U) Negative Normal NEGATIVE [facility] Comment on above: Performed By: #### U AMIC #### [facility] [address] [address] [address] Marvin Reis CAST SEEN Abnormal NONE SEEN [facility] Comment on above: Performed By: #### U AMIC #### [facility] [address] [address] [address] Marvin Reis Clarity (U) CLEAR Normal CLEAR [facility] Comment on above: Performed By: #### U AMIC #### [facility] [address] [address] [address] Marvin Reis Color (U) LT. YELLOW Normal YELLOW [facility] Comment on above: Performed By: #### U AMIC #### [facility] [address] [address] [address] Marvin Reis Crystals LM Nom (Urine sed) NONE SEEN Normal NONE SEEN [facility] Comment on above: Performed By: #### U AMIC #### [facility] [address] [address] [address] Marvin Reis Epithelial cells LM Ql (Urine sed) FEW Abnormal NONE SEEN /RARE [facility] Comment on above: Performed By: #### U AMIC #### [facility] [address] [place] [address] Dr. Marvin Reis Glucose Ql (U) Negative Normal NEGATIVE The [facility] Comment on above: Performed By: #### U AMIC #### [facility] [address] [place] [address] Dr. Marvin Reis Hemoglobin Ql (U) TRACE-INTACT Abnormal NEGATIVE [facility] Comment on above: Performed By: #### U AMIC #### [facility] [address] [address] [address] Marvin Reis HYALINE CAST FEW Normal [facility] Comment on above: Performed By: #### U AMIC #### [facility] [address] [place] [address] Dr. Marvin Reis Ketones Ql (U) Negative Normal NEGATIVE [facility] Comment on above: Performed By: #### U AMIC #### [facility] [address] [place] [address] Dr. Marvin Reis LEUKOCYTES MODERATE Abnormal NEGATIVE [facility] Comment on above: Performed By: #### U AMIC #### [facility] [address] [place] [address] Dr. Marvin Reis MUCOUS SMALL Abnormal NONE SEEN [facility] Comment on above: Performed By: #### U AMIC #### [facility] [address] [place] [address] Dr. Marvin Reis Nitrite Ql (U) Negative Normal NEGATIVE The [facility] Comment on above: Performed By: #### U AMIC #### [facility] [address] [place] [address] Dr. Marvin Reis pH (U) 5.5 [pH] Normal 5-9 [facility] Comment on above: Performed By: #### U AMIC #### [facility] [address] [place] [address] Dr. Marvin Reis RBC 0-2 Normal 0-2 [facility] Comment on above: Performed By: #### U AMIC #### [facility] [address] [place] [address] Dr. Marvin Reis SPEC GRAVITY 1.020 Normal 1.005-<=1.025 [facility] Comment on above: Performed By: #### U AMIC #### [facility] [address] [place] [address] Dr. Marvin Reis UA PROTEIN Negative Normal NEGATIVE/ TRACE [facility] Comment on above: Performed By: #### U AMIC #### [facility] [address] [address] [address] Marvin Reis Urobilinogen Qn (U) 0.2 {Robbie'U}/dL Normal 0.2 - 1. 0 [facility] Comment on above: Performed By: #### U AMIC #### [facility] [address] [address] [address] Marvin Reis WBC 10-20 Abnormal NONE SEEN [facility] Comment on above: Performed By: #### U AMIC #### [facility] [address] [address] [address] Marvin Reis CULTURE URINEon 09-26-2022 CULTURE [...] Trimethoprim/Sulfamet hoxazole <=20 S F Normal [facility] Comment on above: Performed By: #### U RCX #### [facility] [address] [place] [address] Dr. Marvin Reis CBC W MANUAL DIFFon 09-25-20 ANISOCYTOSIS SLIGHT Normal [facility] Comment on above: Performed By: #### U RCX #### [facility] [address] [place] [address] Dr. Marvin Reis ATYPICAL LYMPH # Normal [facility] Comment on above: Performed By: #### U RCX #### [facility] [address] [place] [address] Dr. Marvin Reis ATYPICAL LYMPH % Normal [facility] Comment on above: Performed By: #### U RCX #### [facility] [address] [place] [address] Dr. Marvin Reis BAND # Normal 0.0-0.3 [facility] Comment on above: Performed By: #### U RCX #### [facility] [address] [place] [address] Dr. Marvin Reis BAND % Normal 0-5 [facility] Comment on above: Performed By: #### U RCX #### [facility] [address] [place] [address] Dr. Marvin Reis BASOM # 0.00 103/ul Normal 0.00-0.10 [facility] Comment on above: Performed By: #### U RCX #### [facility] [address] [place] [address] Dr. Marvin Reis BASOM % 0.0 % Critically low 0.2-2.0 [facility] Comment on above: Performed By: #### U RCX #### [facility] [address] [place] [address] Dr. Marvin Reis BLAST # Normal [facility] Comment on above: Performed By: #### U RCX #### [facility] [address] [place] [address] Dr. Marvin Reis BLAST % Normal [facility] Comment on above: Performed By: #### U RCX #### [facility] [address] [place] [address] Dr. Marvin Reis CORRECTED WBC Normal 4.0-11.0 [facility] Comment on above: Performed By: #### U RCX #### [facility] [address] [place] [address] Dr. Marvin Reis EOS # 0.00 103/ul Normal 0.00-0.70 [facility] Comment on above: Performed By: #### U RCX #### [facility] [address] [place] [address] Dr. Marvin Reis EOS% 0.0 % Critically low 0.9-7.0 [facility] Comment on above: Performed By: #### U RCX #### [facility] [address] [place] [address] Dr. Marvin Reis HCT 32.1 % Critically low 42.0-54.0 [facility] Comment on above: Performed By: #### U RCX #### [facility] [address] [address] [address] Marvin Reis HGB 10.2 g/dl Critically low 14.0-18.0 [facility] Comment on above: Performed By: #### U RCX #### [facility] [address] [address] [address] Marvin Reis LYMPHM # 0.76 103/ul Critically low 1.20-3.80 [facility] Comment on above: Performed By: #### U RCX #### [facility] [address] [place] [address] Dr. Marvin Reis LYMPHM% 14.0 % Critically low 20.5-60.0 [facility] Comment on above: Performed By: #### U RCX #### [facility] [address] [place] [address] Dr. Marvin Reis MCH 26.5 pg Normal 25.9-34.0 [facility] Comment on above: Performed By: #### U RCX #### [facility] [address] [place] [address] Dr. Marvin Reis MCHC 31.8 g/dl Normal 29.9-35.2 [facility] Comment on above: Performed By: #### U RCX #### [facility] [address] [place] [address] Dr. Marvin Reis MCV 83.4 fL Normal 80.0-94.0 [facility] Comment on above: Performed By: #### U RCX #### [facility] [address] [address] [address] Marvin Reis METAMYELOCYTE # Normal [facility] Comment on above: Performed By: #### U RCX #### [facility] [address] [place] [address] Dr. Marvin Reis METAMYELOCYTE % Normal [facility] Comment on above: Performed By: #### U RCX #### [facility] [address] [address] [address] Marvin Reis MONOM# 0.27 103/ul Critically low 0.30-0.80 [facility] Comment on above: Performed By: #### U RCX #### [facility] [address] [address] [address] Marvin Reis MONOM% 5.0 % Normal 1.7-12.0 [facility] Comment on above: Performed By: #### U RCX #### [facility] [address] [address] [address] Marvin Reis MPV 9.8 fL Normal 9.5-13.5 [facility] Comment on above: Performed By: #### U RCX #### [facility] [address] [place] [address] Dr. Marvin Reis MYELOCYTE # Normal [facility] Comment on above: Performed By: #### U RCX #### [facility] [address] [address] [address] Marvin Reis MYELOCYTE % Normal [facility] Comment on above: Performed By: #### U RCX #### [facility] [address] [place] [address] Dr. Marvin Reis NRBC Normal [facility] Comment on above: Performed By: #### U RCX #### [facility] [address] [place] [address] Dr. Marvin Reis PLT 78 103/ul Critically low 150-450 [facility] Comment on above: Performed By: #### U RCX #### [facility] [address] [address] [address] Marvin Reis RBC 3.85 106/ul Critically low 4.70-6.10 [facility] Comment on above: Performed By: #### U RCX #### [facility] [address] [place] [address] Dr. Marvin Reis RDW 15.8 % Critically high 11.0-15.0 [facility] Comment on above: Performed By: #### U RCX #### [facility] [address] [address] [address] Marvin Reis SEG # 4.37 103/ul Normal 1.40-6.50 [facility] Comment on above: Performed By: #### U RCX #### [facility] [address] [address] [address] Marvin Reis SEG % 81.0 % Critically high 43.0-75.0 [facility] Comment on above: Performed By: #### U RCX #### [facility] [address] [place] [address] Dr. Marvin Reis WBC 5.4 103/ul Normal 4.0-11.0 [facility] Comment on above: Performed By: #### U RCX #### [facility] [address] [place] [address] Dr. Marvin Reis CRPon 09-25-2022 CRP 8.9 mg/dL Critically high <=1.0 [facility] Comment on above: Performed By: #### U AMIC #### [facility] [address] [place] [address] Dr. Marvin Reis LACTATE/LACTIC ACIDon 2021 Lactate [Moles/Vol] 0.9 mmol/L Normal 0.4-1.9 [facility] Comment on above: Performed By: #### U RCX #### [facility] [address] [place] [address] Dr. Marvin Reis PROF 14(COMP METB)on 022 Albumin [Mass/Vol] 2.6 g/dL Critically low 3.4-5.0 [facility] Comment on above: Performed By: #### U AMIC #### [facility] [address] [address] [address] Marvin Reis Albumin/Globulin [Mass ratio] 0.7 {ratio} Normal [facility] Comment on above: Performed By: #### U AMIC #### [facility] [address] [address] [address] Marvin Reis ALP [Catalytic activity/Vol] 75 U/L Normal 46-116 [facility] Comment on above: Performed By: #### U AMIC #### [facility] [address] [address] [address] Marvin Reis ALT [Catalytic activity/Vol] 23 U/L Normal 16-63 [facility] Comment on above: Performed By: #### U AMIC #### [facility] [address] [address] [address] Marvin Reis Anion gap [Moles/Vol] 11.8 mmol/L Normal [facility] Comment on above: Performed By: #### U AMIC #### [facility] [address] [address] [address] Marvin Reis AST [Catalytic activity/Vol] 21 U/L Normal 15-37 [facility] Comment on above: Performed By: #### U AMIC #### [facility] [address] [address] [address] Marvin Reis Bilirubin [Mass/Vol] 0.8 mg/dL Normal 0.2-1.0 [facility] Comment on above: Performed By: #### U AMIC #### [facility] [address] [address] [address] Marvin Reis Calcium [Mass/Vol] 8.7 mg/dL Normal 8.5-10.1 [facility] Comment on above: Performed By: #### U AMIC #### [facility] [address] [address] [address] Marvin Reis Chloride [Moles/Vol] 105 mmol/L Normal 98-107 [facility] Comment on above: Performed By: #### U AMIC #### [facility] [address] [address] [address] Marvin Reis CO2 [Moles/Vol] 26.1 mmol/L Normal 21.0-32.0 [facility] Comment on above: Performed By: #### U AMIC #### [facility] [address] [address] [address] Marvin Reis Creatinine [Mass/Vol] 0.88 mg/dL Normal 0.70-1.30 [facility] Comment on above: Performed By: #### U AMIC #### [facility] [address] [address] [address] Marvin Reis EGFR-AF GHANAIAN >60 Normal >=60 [facility] Comment on above: Performed By: #### U AMIC #### [facility] [address] [address] [address] Marvin Reis EGFR-NON AF GHANAIAN >60 Normal >=60 [facility] Comment on above: Performed By: #### U AMIC #### [facility] [address] [address] [address] Marvin Reis Globulin (S) [Mass/Vol] 3.7 g/dL Normal [facility] Comment on above: Performed By: #### U AMIC #### [facility] [address] [address] [address] Marvin Reis Glucose [Mass/Vol] 93 mg/dL Normal 74-106 [facility] Comment on above: Performed By: #### U AMIC #### [facility] [address] [address] [address] Marvin Reis Potassium [Moles/Vol] 3.9 mmol/L Normal 3.5-5.1 [facility] Comment on above: Performed By: #### U AMIC #### [facility] [address] [address] [address] Marvin Reis Protein [Mass/Vol] 6.3 g/dL Critically low 6.4-8.2 [facility] Comment on above: Performed By: #### U AMIC #### [facility] [address] [address] [address] Marvin Reis Sodium [Moles/Vol] 139 mmol/L Normal 136-145 [facility] Comment on above: Performed By: #### U AMIC #### [facility] [address] [address] [address] Marvin Reis Urea nitrogen [Mass/Vol] 20.0 mg/dL Critically high 7.0-18.0 [facility] Comment on above: Performed By: #### U AMIC #### [facility] [address] [place] [address] Dr. Marvin Reis Urea nitrogen/Creatinine [Mass ratio] 22.7 mg/mg Normal [facility] Comment on above: Performed By: #### U AMIC #### [facility] [address] [place] [address] Dr. Marvin Reis SED RATE WESTERGRENon 2021 SED RATE 49 mm/hr Critically high <=20 [facility] Comment on above: Performed By: #### U AMIC #### [facility] [address] [place] [address] Dr. Marvin Reis CBC W MANUAL DIFFon 09-24-20 ATYPICAL LYMPH # Normal [facility] Comment on above: Performed By: #### U RCX #### [facility] [address] [place] [address] Dr. Marvin Reis ATYPICAL LYMPH % Normal [facility] Comment on above: Performed By: #### U RCX #### [facility] [address] [place] [address] Dr. Marvin Reis BAND # Normal 0.0-0.3 [facility] Comment on above: Performed By: #### U RCX #### [facility] [address] [place] [address] Dr. Marvin Reis BAND % Normal 0-5 [facility] Comment on above: Performed By: #### U RCX #### [facility] [address] [place] [address] Dr. Marvin Reis BASOM # 0.00 103/ul Normal 0.00-0.10 [facility] Comment on above: Performed By: #### U RCX #### [facility] [address] [address] [address] Marvin Reis BASOM % 0.0 % Critically low 0.2-2.0 [facility] Comment on above: Performed By: #### U RCX #### [facility] [address] [place] [address] Dr. Marvin Reis BLAST # Normal [facility] Comment on above: Performed By: #### U RCX #### [facility] [address] [address] [address] Marvin Reis BLAST % Normal [facility] Comment on above: Performed By: #### U RCX #### [facility] [address] [place] [address] Dr. Marvin Reis CORRECTED WBC Normal 4.0-11.0 [facility] Comment on above: Performed By: #### U RCX #### [facility] [address] [address] [address] Marvin Reis EOS # 0.00 103/ul Normal 0.00-0.70 [facility] Comment on above: Performed By: #### U RCX #### [facility] [address] [place] [address] Dr. Marvin Reis EOS% 0.0 % Critically low 0.9-7.0 [facility] Comment on above: Performed By: #### U RCX #### [facility] [address] [place] [address] Dr. Marvin Reis HCT 33.5 % Critically low 42.0-54.0 [facility] Comment on above: Performed By: #### U RCX #### [facility] [address] [place] [address] Dr. Marvin Reis HGB 10.9 g/dl Critically low 14.0-18.0 [facility] Comment on above: Performed By: #### U RCX #### [facility] [address] [place] [address] Dr. Marvin Reis LYMPHM # 0.52 103/ul Critically low 1.20-3.80 [facility] Comment on above: Performed By: #### U RCX #### [facility] [address] [place] [address] Dr. Marvin Reis LYMPHM% 4.0 % Critically low 20.5-60.0 [facility] Comment on above: Performed By: #### U RCX #### [facility] [address] [place] [address] Dr. Marvin Reis MCH 27.2 pg Normal 25.9-34.0 [facility] Comment on above: Performed By: #### U RCX #### [facility] [address] [place] [address] Dr. Marvin Reis MCHC 32.5 g/dl Normal 29.9-35.2 [facility] Comment on above: Performed By: #### U RCX #### [facility] [address] [address] [address] Marvin Reis MCV 83.5 fL Normal 80.0-94.0 [facility] Comment on above: Performed By: #### U RCX #### [facility] [address] [place] [address] Dr. Marvin Reis METAMYELOCYTE # Normal [facility] Comment on above: Performed By: #### U RCX #### [facility] [address] [place] [address] Dr. Marvin Reis METAMYELOCYTE % Normal [facility] Comment on above: Performed By: #### U RCX #### [facility] [address] [place] [address] Dr. Marvin Reis MONOM# 0.39 103/ul Normal 0.30-0.80 [facility] Comment on above: Performed By: #### U RCX #### [facility] [address] [place] [address] Dr. Marvin Reis MONOM% 3.0 % Normal 1.7-12.0 [facility] Comment on above: Performed By: #### U RCX #### [facility] [address] [place] [address] Dr. Marvin Reis MPV 10.5 fL Normal 9.5-13.5 [facility] Comment on above: Performed By: #### U RCX #### [facility] [address] [place] [address] Dr. Marvin Reis MYELOCYTE # Normal [facility] Comment on above: Performed By: #### U RCX #### [facility] [address] [place] [address] Dr. Marvin Reis MYELOCYTE % Normal [facility] Comment on above: Performed By: #### U RCX #### [facility] [address] [address] [address] Marvin Reis NRBC Normal [facility] Comment on above: Performed By: #### U RCX #### [facility] [address] [address] [address] Marvin Reis PLT 96 103/ul Critically low 150-450 [facility] Comment on above: Performed By: #### U RCX #### [facility] [address] [address] [address] Marvin Reis RBC 4.01 106/ul Critically low 4.70-6.10 [facility] Comment on above: Performed By: #### U RCX #### [facility] [address] [address] [address] Marvin Reis RDW 15.8 % Critically high 11.0-15.0 [facility] Comment on above: Performed By: #### U RCX #### [facility] [address] [address] [address] Marvin Reis SEG # 12.00 103/ul Critically high 1.40-6.50 [facility] Comment on above: Performed By: #### U RCX #### [facility] [address] [address] [address] Marvin Reis SEG % 93.0 % Critically high 43.0-75.0 [facility] Comment on above: Performed By: #### U RCX #### [facility] [address] [address] [address] Marvin Reis WBC 12.9 103/ul Critically high 4.0-11.0 [facility] Comment on above: Performed By: #### U RCX #### [facility] [address] [address] [address] Marvin Reis CRPon 09-24-2022 CRP 8.4 mg/dL Critically high <=1.0 [facility] Comment on above: Performed By: #### U AMIC #### [facility] [address] [address] [address] Marvin Reis LACTATE/LACTIC ACIDon 2021 Lactate [Moles/Vol] 2.2 mmol/L Critically high 0.4-1.9 [facility] Comment on above: Performed By: #### L ACT #### [facility] [address] [address] [address] Marvin Reis PROF 14(COMP METB)on 022 Albumin [Mass/Vol] 2.8 g/dL Critically low 3.4-5.0 [facility] Comment on above: Performed By: #### U AMIC #### [facility] [address] [place] [address] Dr. Marvin Reis Albumin/Globulin [Mass ratio] 0.7 {ratio} Normal [facility] Comment on above: Performed By: #### U AMIC #### [facility] [address] [place] [address] Dr. Marvin Reis ALP [Catalytic activity/Vol] 80 U/L Normal 46-116 [facility] Comment on above: Performed By: #### U AMIC #### [facility] [address] [place] [address] Dr. Marvin Reis ALT [Catalytic activity/Vol] 20 U/L Normal 16-63 [facility] Comment on above: Performed By: #### U AMIC #### [facility] [address] [place] [address] Dr. Marvin Reis Anion gap [Moles/Vol] 12.3 mmol/L Normal [facility] Comment on above: Performed By: #### U AMIC #### [facility] [address] [place] [address] Dr. Marvin Reis AST [Catalytic activity/Vol] 17 U/L Normal 15-37 [facility] Comment on above: Performed By: #### U AMIC #### [facility] [address] [place] [address] Dr. Marvin Reis Bilirubin [Mass/Vol] 1.0 mg/dL Normal 0.2-1.0 [facility] Comment on above: Performed By: #### U AMIC #### [facility] [address] [address] [address] Marvin Reis Calcium [Mass/Vol] 9.0 mg/dL Normal 8.5-10.1 [facility] Comment on above: Performed By: #### U AMIC #### [facility] [address] [address] [address] Marvin Reis Chloride [Moles/Vol] 106 mmol/L Normal 98-107 [facility] Comment on above: Performed By: #### U AMIC #### [facility] [address] [address] [address] Marvin Reis CO2 [Moles/Vol] 25.8 mmol/L Normal 21.0-32.0 [facility] Comment on above: Performed By: #### U AMIC #### [facility] [address] [place] [address] Dr. Marvin Reis Creatinine [Mass/Vol] 1.08 mg/dL Normal 0.70-1.30 [facility] Comment on above: Performed By: #### U AMIC #### [facility] [address] [address] [address] Marvin Reis EGFR-AF GHANAIAN >60 Normal >=60 [facility] Comment on above: Performed By: #### U AMIC #### [facility] [address] [address] [address] Marvin Reis EGFR-NON AF GHANAIAN >60 Normal >=60 [facility] Comment on above: Performed By: #### U AMIC #### [facility] [address] [address] [address] Marvin Reis Globulin (S) [Mass/Vol] 3.8 g/dL Normal [facility] Comment on above: Performed By: #### U AMIC #### [facility] [address] [address] [address] Marvin Reis Glucose [Mass/Vol] 117 mg/dL Critically high 74-106 [facility] Comment on above: Performed By: #### U AMIC #### [facility] [address] [address] [address] Marvin Reis Potassium [Moles/Vol] 4.1 mmol/L Normal 3.5-5.1 [facility] Comment on above: Performed By: #### U AMIC #### [facility] [address] [address] [address] Marvin Reis Protein [Mass/Vol] 6.6 g/dL Normal 6.4-8.2 [facility] Comment on above: Performed By: #### U AMIC #### [facility] [address] [address] [address] Marvin Reis Sodium [Moles/Vol] 140 mmol/L Normal 136-145 [facility] Comment on above: Performed By: #### U AMIC #### [facility] [address] [place] [address] Dr. Marvin Reis Urea nitrogen [Mass/Vol] 23.0 mg/dL Critically high 7.0-18.0 [facility] Comment on above: Performed By: #### U AMIC #### [facility] [address] [place] [address] Dr. Marvin Reis Urea nitrogen/Creatinine [Mass ratio] 21.3 mg/mg Normal [facility] Comment on above: Performed By: #### U AMIC #### [facility] [address] [place] [address] Dr. Marvin Reis SED RATE [facility] 2021 SED RATE 51 mm/hr Critically high <=20 [facility] Comment on above: Performed By: #### U RCX #### [facility] [address] [place] [address] Dr. Marvin Reis UA RANDOMon 09-24-2022 Bilirubin Ql (U) Negative Normal NEGATIVE [facility] Comment on above: Performed By: #### U AMIC #### [facility] [address] [place] [address] Dr. Marvin Reis Clarity (U) CLEAR Normal CLEAR [facility] Comment on above: Performed By: #### U AMIC #### [facility] [address] [place] [address] Dr. Marvin Reis Color (U) LT. YELLOW Normal YELLOW [facility] Comment on above: Performed By: #### U AMIC #### [facility] [address] [address] [address] Marvin Reis Glucose Ql (U) Negative Normal NEGATIVE [facility] Comment on above: Performed By: #### U AMIC #### [facility] [address] [address] [address] Marvin Reis Hemoglobin Ql (U) LARGE Abnormal NEGATIVE [facility] Comment on above: Performed By: #### U AMIC #### [facility] [address] [address] [address] Marvin Reis Ketones Ql (U) Negative Normal NEGATIVE [facility] Comment on above: Performed By: #### U AMIC #### [facility] [address] [place] [address] Dr. Marvin Reis LEUKOCYTES MODERATE Abnormal NEGATIVE [facility] Comment on above: Performed By: #### U AMIC #### [facility] [address] [place] [address] Dr. Marvin Reis Nitrite Ql (U) Negative Normal NEGATIVE [facility] Comment on above: Performed By: #### U AMIC #### [facility] [address] [address] [address] Marvin Reis pH (U) 5.5 [pH] Normal 5-9 [facility] Comment on above: Performed By: #### U AMIC #### [facility] [address] [address] [address] Marvin Reis SPEC GRAVITY 1.020 Normal 1.005-<=1.025 [facility] Comment on above: Performed By: #### U AMIC #### [facility] [address] [place] [address] Dr. Marvin Reis UA PROTEIN Negative Normal NEGATIVE/ TRACE [facility] Comment on above: Performed By: #### U AMIC #### [facility] [address] [place] [address] Dr. Marvin Reis Urobilinogen Qn (U) 0.2 {Robbie'U}/dL Normal 0.2 - 1. 0 [facility] Comment on above: Performed By: #### U AMIC #### [facility] [address] [place] [address] Dr. Marvin Reis CULTURE URINEon 09-13-2022 CULTURE [...] F Oxacillin >=4 R F Normal [facility] Comment on above: Performed By: #### U RCX #### [facility] [address] [place] [address] Dr. Marvin Reis UA RANDOM W/MICROSCOPICon BACTERIA TRACE Abnormal NONE SEEN [facility] Comment on above: Performed By: #### U AMIC #### [facility] [address] [place] [address] Dr. Marvin Reis Bilirubin Ql (U) Negative Normal NEGATIVE [facility] Comment on above: Performed By: #### U AMIC #### [facility] [address] [place] [address] Dr. Marvin Reis CAST NONE SEEN Normal NONE SEEN [facility] Comment on above: Performed By: #### U AMIC #### [facility] [address] [place] [address] Dr. Marvin Reis Clarity (U) CLEAR Normal CLEAR [facility] Comment on above: Performed By: #### U AMIC #### [facility] [address] [place] [address] Dr. Marvin Reis Color (U) LT. YELLOW Normal YELLOW [facility] Comment on above: Performed By: #### U AMIC #### [facility] [address] [address] [address] Marvin Reis Crystals LM Nom (Urine sed) NONE SEEN Normal NONE SEEN [facility] Comment on above: Performed By: #### U AMIC #### [facility] [address] [address] [address] Marvin Reis Epithelial cells LM Ql (Urine sed) FEW Abnormal NONE SEEN /RARE [facility] Comment on above: Performed By: #### U AMIC #### [facility] [address] [address] [address] Marvin Reis Glucose Ql (U) Negative Normal NEGATIVE [facility] Comment on above: Performed By: #### U AMIC #### [facility] [address] [address] [address] Marvin Reis Hemoglobin Ql (U) Negative Normal NEGATIVE [facility] Comment on above: Performed By: #### U AMIC #### [facility] [address] [address] [address] Marvin Reis Ketones Ql (U) Negative Normal NEGATIVE [facility] Comment on above: Performed By: #### U AMIC #### [facility] [address] [address] [address] Marvin Reis LEUKOCYTES LARGE Abnormal NEGATIVE [facility] Comment on above: Performed By: #### U AMIC #### [facility] [address] [address] [address] Marvin Reis MUCOUS NONE SEEN Normal NONE SEEN [facility] Comment on above: Performed By: #### U AMIC #### [facility] [address] [address] [address] Marvin Reis Nitrite Ql (U) Negative Normal NEGATIVE [facility] Comment on above: Performed By: #### U AMIC #### [facility] [address] [address] [address] Marvin Reis pH (U) 5.5 [pH] Normal 5-9 [facility] Comment on above: Performed By: #### U AMIC #### [facility] [address] [address] [address] Marvin Reis RBC 0-2 Normal 0-2 [facility] Comment on above: Performed By: #### U AMIC #### [facility] [address] [place] [address] Dr. Marvin Reis SPEC GRAVITY 1.025 Normal 1.005-<=1.025 [facility] Comment on above: Performed By: #### U AMIC #### [facility] [address] [place] [address] Dr. Marvin Reis UA PROTEIN Negative Normal NEGATIVE/ TRACE [facility] Comment on above: Performed By: #### U AMIC #### [facility] [address] [place] [address] Dr. Marvin Reis Urobilinogen Qn (U) 0.2 {Robbie'U}/dL Normal 0.2 - 1. 0 [facility] Comment on above: Performed By: #### U AMIC #### [facility] [address] [place] [address] Dr. Marvin Reis WBC 10-20 Abnormal NONE SEEN [facility] Comment on above: Performed By: #### U AMIC #### [facility] [address] [place] [address] Dr. Marvin Reis CULTURE URINEon 08-17-2022 CULTURE [...] Trimethoprim/Sulfamet hoxazole <=20 S F Normal [facility] Comment on above: Performed By: #### U RCX #### [facility] [address] [place] [address] Dr. Mavrin Reis UA RANDOM W/MICROSCOPICon 10 -13-2022 BACTERIA MODERATE Abnormal NONE SEEN [facility] Comment on above: Performed By: #### U RCX #### [facility] [address] [address] [address] Marvin Reis Bilirubin Ql (U) Negative Normal NEGATIVE [facility] Comment on above: Performed By: #### U RCX #### [facility] [address] [place] [address] Dr. Marvin Reis CAST NONE SEEN Normal NONE SEEN [facility] Comment on above: Performed By: #### U RCX #### [facility] [address] [address] [address] Marvin Reis Clarity (U) SL CLOUDY Abnormal CLEAR [facility] Comment on above: Performed By: #### U RCX #### [facility] [address] [place] [address] Dr. Marvin Reis Color (U) LT. YELLOW Normal YELLOW [facility] Comment on above: Performed By: #### U RCX #### [facility] [address] [address] [address] Marvin Reis Crystals LM Nom (Urine sed) NONE SEEN Normal NONE SEEN [facility] Comment on above: Performed By: #### U RCX #### [facility] [address] [place] [address] Dr. Marvin Reis Epithelial cells LM Ql (Urine sed) RARE Normal NONE SEEN /RARE [facility] Comment on above: Performed By: #### U RCX #### [facility] [address] [place] [address] Dr. Marvin Reis Glucose Ql (U) Negative Normal NEGATIVE [facility] Comment on above: Performed By: #### U RCX #### [facility] [address] [address] [address] Marvin Reis Hemoglobin Ql (U) SMALL Abnormal NEGATIVE [facility] Comment on above: Performed By: #### U RCX #### [facility] [address] [place] [address] Dr. Marvin Reis Ketones Ql (U) Negative Normal NEGATIVE [facility] Comment on above: Performed By: #### U RCX #### [facility] [address] [address] [address] Marvin Reis LEUKOCYTES MODERATE Abnormal NEGATIVE [facility] Comment on above: Performed By: #### U RCX #### [facility] [address] [place] [address] Dr. Marvin Reis MUCOUS NONE SEEN Normal NONE SEEN [facility] Comment on above: Performed By: #### U RCX #### [facility] [address] [address] [address] Marvin Reis Nitrite Ql (U) Positive Abnormal NEGATIVE [facility] Comment on above: Performed By: #### U RCX #### [facility] [address] [place] [address] Dr. Marvin Reis pH (U) 6.0 [pH] Normal 5-9 [facility] Comment on above: Performed By: #### U RCX #### [facility] [address] [place] [address] Dr. Marvin Reis RBC 0-2 Normal 0-2 [facility] Comment on above: Performed By: #### U RCX #### [facility] [address] [address] [address] Marvin Reis SPEC GRAVITY 1.015 Normal 1.005-<=1.025 [facility] Comment on above: Performed By: #### U RCX #### [facility] [address] [place] [address] Dr. Marvin Reis UA PROTEIN Negative Normal NEGATIVE/ TRACE [facility] Comment on above: Performed By: #### U RCX #### [facility] [address] [place] [address] Dr. Marvin Reis Urobilinogen Qn (U) 0.2 {Robbie'U}/dL Normal 0.2 - 1. 0 [facility] Comment on above: Performed By: #### U RCX #### [facility] [address] [place] [address] Dr. Marvin Reis WBC 10-20 Abnormal NONE SEEN [facility] Comment on above: Performed By: #### U RCX #### [facility] [address] [place] [address] Dr. Marvin Reis CULTURE URINEon 08-02-2022 CULTURE [...] Trimethoprim/Sulfamet hoxazole <=20 S F Normal [facility] Comment on above: Performed By: #### U RCX #### [facility] [address] [place] [address] Dr. Marvin Reis UA RANDOM W/MICROSCOPICon BACTERIA MODERATE Abnormal NONE SEEN [facility] Comment on above: Performed By: #### U AMIC #### [facility] [address] [place] [address] Dr. Marvin Reis Bilirubin Ql (U) Negative Normal NEGATIVE [facility] Comment on above: Performed By: #### U AMIC #### [facility] [address] [place] [address] Dr. Marvin Reis CAST NONE SEEN Normal NONE SEEN [facility] Comment on above: Performed By: #### U AMIC #### [facility] [address] [place] [address] Dr. Marvin Reis Clarity (U) SL CLOUDY Abnormal CLEAR [facility] Comment on above: Performed By: #### U AMIC #### [facility] [address] [place] [address] Dr. Marvin Reis Color (U) LT. YELLOW Normal YELLOW [facility] Comment on above: Performed By: #### U AMIC #### [facility] [address] [place] [address] Dr. Marvin Reis Crystals LM Nom (Urine sed) NONE SEEN Normal NONE SEEN [facility] Comment on above: Performed By: #### U AMIC #### [facility] [address] [address] [address] Marvin Reis Epithelial cells LM Ql (Urine sed) NONE SEEN Normal NONE SEEN /RARE [facility] Comment on above: Performed By: #### U AMIC #### [facility] [address] [address] [address] Marvin Reis Glucose Ql (U) Negative Normal NEGATIVE The [facility] Comment on above: Performed By: #### U AMIC #### [facility] [address] [address] [address] Marvin Reis Hemoglobin Ql (U) TRACE-INTACT Abnormal NEGATIVE [facility] Comment on above: Performed By: #### U AMIC #### [facility] [address] [place] [address] Dr. Marvin Reis Ketones Ql (U) Negative Normal NEGATIVE The [facility] Comment on above: Performed By: #### U AMIC #### [facility] [address] [address] [address] Marvin Reis LEUKOCYTES MODERATE Abnormal NEGATIVE [facility] Comment on above: Performed By: #### U AMIC #### [facility] [address] [address] [address] Marvin Reis MUCOUS NONE SEEN Normal NONE SEEN [facility] Comment on above: Performed By: #### U AMIC #### [facility] [address] [address] [address] Marvin Reis Nitrite Ql (U) Positive Abnormal NEGATIVE The [facility] Comment on above: Performed By: #### U AMIC #### [facility] [address] [address] [address] Marvin Reis pH (U) 6.0 [pH] Normal 5-9 [facility] Comment on above: Performed By: #### U AMIC #### [facility] [address] [address] [address] Marvin Reis RBC 0-2 Normal 0-2 [facility] Comment on above: Performed By: #### U AMIC #### [facility] [address] [place] [address] Dr. Marvin Reis SPEC GRAVITY 1.015 Normal 1.005-<=1.025 [facility] Comment on above: Performed By: #### U AMIC #### [facility] [address] [place] [address] Dr. Marvin Reis UA PROTEIN Negative Normal NEGATIVE/ TRACE [facility] Comment on above: Performed By: #### U AMIC #### [facility] [address] [place] [address] Dr. Marvin Reis Urobilinogen Qn (U) 0.2 {Robbie'U}/dL Normal 0.2 - 1. 0 [facility] Comment on above: Performed By: #### U AMIC #### [facility] [address] [place] [address] Dr. Marvin Reis WBC 20-50 Abnormal NONE SEEN [facility] Comment on above: Performed By: #### U AMIC #### [facility] [address] [place] [address] Dr. Marvin Reis CULTURE URINEon 06-27-2022 CULTURE [...] F Oxacillin >=4 R F Normal [facility] Comment on above: Performed By: #### U AMIC #### [facility] [address] [place] [address] Dr. Marvin Reis UA RANDOM W/MICROSCOPICon BACTERIA LARGE Abnormal NONE SEEN [facility] Comment on above: Performed By: #### U RCX #### [facility] [address] [address] [address] Marvin Reis Bilirubin Ql (U) Negative Normal NEGATIVE [facility] Comment on above: Performed By: #### U RCX #### [facility] [address] [address] [address] Marvin Reis CAST NONE SEEN Normal NONE SEEN [facility] Comment on above: Performed By: #### U RCX #### [facility] [address] [address] [address] Marvin Reis Clarity (U) CLEAR Normal CLEAR [facility] Comment on above: Performed By: #### U RCX #### [facility] [address] [place] [address] Dr. Marvin Reis Color (U) LT. YELLOW Normal YELLOW [facility] Comment on above: Performed By: #### U RCX #### [facility] [address] [place] [address] Dr. Marvin Reis Crystals LM Nom (Urine sed) NONE SEEN Normal NONE SEEN [facility] Comment on above: Performed By: #### U RCX #### [facility] [address] [address] [address] Marvin Reis Epithelial cells LM Ql (Urine sed) FEW Abnormal NONE SEEN /RARE [facility] Comment on above: Performed By: #### U RCX #### [facility] [address] [place] [address] Dr. Marvin Reis Glucose Ql (U) Negative Normal NEGATIVE The [facility] Comment on above: Performed By: #### U RCX #### [facility] [address] [address] [address] Marvin Reis Hemoglobin Ql (U) TRACE-INTACT Abnormal NEGATIVE [facility] Comment on above: Performed By: #### U RCX #### [facility] [address] [place] [address] Dr. Marvin Reis Ketones Ql (U) Negative Normal NEGATIVE The [facility] Comment on above: Performed By: #### U RCX #### [facility] [address] [address] [address] Marvin Reis LEUKOCYTES LARGE Abnormal NEGATIVE [facility] Comment on above: Performed By: #### U RCX #### [facility] [address] [place] [address] Dr. Marvin Reis MUCOUS NONE SEEN Normal NONE SEEN [facility] Comment on above: Performed By: #### U RCX #### [facility] [address] [place] [address] Dr. Marvin Reis Nitrite Ql (U) Positive Abnormal NEGATIVE The [facility] Comment on above: Performed By: #### U RCX #### [facility] [address] [place] [address] Dr. Marvin Reis pH (U) 5.5 [pH] Normal 5-9 [facility] Comment on above: Performed By: #### U RCX #### [facility] [address] [place] [address] Dr. Marvin Reis RBC 2-5 Abnormal 0-2 [facility] Comment on above: Performed By: #### U RCX #### [facility] [address] [place] [address] Dr. Marvin Reis SPEC GRAVITY 1.015 Normal 1.005-<=1.025 [facility] Comment on above: Performed By: #### U RCX #### [facility] [address] [place] [address] Dr. Marvin Reis UA PROTEIN Negative Normal NEGATIVE/ TRACE [facility] Comment on above: Performed By: #### U RCX #### [facility] [address] [place] [address] Dr. Marvin Reis Urobilinogen Qn (U) 0.2 {Robbie'U}/dL Normal 0.2 - 1. 0 [facility] Comment on above: Performed By: #### U RCX #### [facility] [address] [place] [address] Dr. Marvin Reis WBC (U) [#/Vol] /uL Abnormal NONE SEEN [facility] Comment on above: Performed By: #### U RCX #### [facility] [address] [place] [address] Dr. Marvin Reis CULTURE URINEon 05-27-2022 CULTURE [...] F Oxacillin >=4 R F Normal [facility] Comment on above: Performed By: #### U RCX #### [facility] [address] [place] [address] Dr. Marvin Reis UA RANDOM W/MICROSCOPICon BACTERIA MODERATE Abnormal NONE SEEN [facility] Comment on above: Performed By: #### U RCX #### [facility] [address] [place] [address] Dr. Marvin Reis Bilirubin Ql (U) Negative Normal NEGATIVE [facility] Comment on above: Performed By: #### U RCX #### [facility] [address] [place] [address] Dr. Marvin Reis CAST NONE SEEN Normal NONE SEEN [facility] Comment on above: Performed By: #### U RCX #### [facility] [address] [place] [address] Dr. Marvin Reis Clarity (U) SL CLOUDY Abnormal CLEAR [facility] Comment on above: Performed By: #### U RCX #### [facility] [address] [place] [address] Dr. Marvin Reis Color (U) LT. YELLOW Normal YELLOW [facility] Comment on above: Performed By: #### U RCX #### [facility] [address] [place] [address] Dr. Marvin Reis Crystals LM Nom (Urine sed) NONE SEEN Normal NONE SEEN [facility] Comment on above: Performed By: #### U RCX #### [facility] [address] [address] [address] Marvin Reis Epithelial cells LM Ql (Urine sed) FEW Abnormal NONE SEEN /RARE [facility] Comment on above: Performed By: #### U RCX #### [facility] [address] [address] [address] Marvin Reis Glucose Ql (U) Negative Normal NEGATIVE The [facility] Comment on above: Performed By: #### U RCX #### [facility] [address] [address] [address] Marvin Reis Hemoglobin Ql (U) SMALL Abnormal NEGATIVE [facility] Comment on above: Performed By: #### U RCX #### [facility] [address] [place] [address] Dr. Marvin Reis Ketones Ql (U) Negative Normal NEGATIVE The [facility] Comment on above: Performed By: #### U RCX #### [facility] [address] [address] [address] Marvin Reis LEUKOCYTES LARGE Abnormal NEGATIVE [facility] Comment on above: Performed By: #### U RCX #### [facility] [address] [address] [address] Marvin Reis MUCOUS TRACE Abnormal NONE SEEN [facility] Comment on above: Performed By: #### U RCX #### [facility] [address] [address] [address] Marvin Reis Nitrite Ql (U) Negative Normal NEGATIVE The [facility] Comment on above: Performed By: #### U RCX #### [facility] [address] [address] [address] Marvin Reis pH (U) 6.0 [pH] Normal 5-9 [facility] Comment on above: Performed By: #### U RCX #### [facility] [address] [address] [address] Marvin Reis RBC 2-5 Abnormal 0-2 [facility] Comment on above: Performed By: #### U RCX #### [facility] [address] [address] [address] Marvin Reis SPEC GRAVITY 1.010 Normal 1.005-<=1.025 [facility] Comment on above: Performed By: #### U RCX #### [facility] [address] [address] [address] Marvin Reis UA PROTEIN Negative Normal NEGATIVE/ TRACE [facility] Comment on above: Performed By: #### U RCX #### [facility] [address] [address] [address] Marvin Reis Urobilinogen Qn (U) 0.2 {Robbie'U}/dL Normal 0.2 - 1. 0 [facility] Comment on above: Performed By: #### U RCX #### [facility] [address] [place] [address] Dr. Marvin Reis WBC 50-75 Abnormal NONE SEEN [facility] Comment on above: Performed By: #### U RCX #### [facility] [address] [place] [address] Dr. Marvin Reis CULTURE URINEon 04-18-2022 CULTURE [...] F Oxacillin >=4 R F Normal [facility] Comment on above: Performed By: #### U RCX #### [facility] [address] [address] [address] Marvin Reis UA RANDOM W/MICROSCOPICon BACTERIA TRACE Abnormal NONE SEEN [facility] Comment on above: Performed By: #### U AMIC #### [facility] [address] [address] [address] Marvin Reis Bilirubin Ql (U) Negative Normal NEGATIVE [facility] Comment on above: Performed By: #### U AMIC #### [facility] [address] [address] [address] Marvin Reis CAST NONE SEEN Normal NONE SEEN [facility] Comment on above: Performed By: #### U AMIC #### [facility] [address] [address] [address] Marvin Reis Clarity (U) CLEAR Normal CLEAR [facility] Comment on above: Performed By: #### U AMIC #### [facility] [address] [address] [address] Marvin Reis Color (U) LT. YELLOW Normal YELLOW [facility] Comment on above: Performed By: #### U AMIC #### [facility] [address] [address] [address] Marvin Reis Crystals LM Nom (Urine sed) NONE SEEN Normal NONE SEEN [facility] Comment on above: Performed By: #### U AMIC #### [facility] [address] [address] [address] Marvin Reis Epithelial cells LM Ql (Urine sed) FEW Abnormal NONE SEEN /RARE [facility] Comment on above: Performed By: #### U AMIC #### [facility] [address] [address] [address] Marvin Reis Glucose Ql (U) Negative Normal NEGATIVE The [facility] Comment on above: Performed By: #### U AMIC #### [facility] [address] [address] [address] Marvin Reis Hemoglobin Ql (U) TRACE-INTACT Abnormal NEGATIVE [facility] Comment on above: Performed By: #### U AMIC #### [facility] [address] [address] [address] Marvin Reis Ketones Ql (U) Negative Normal NEGATIVE The [facility] Comment on above: Performed By: #### U AMIC #### [facility] [address] [place] [address] Dr. Marvin Reis LEUKOCYTES SMALL Abnormal NEGATIVE [facility] Comment on above: Performed By: #### U AMIC #### [facility] [address] [place] [address] Dr. Marvin Reis MUCOUS NONE SEEN Normal NONE SEEN [facility] Comment on above: Performed By: #### U AMIC #### [facility] [address] [place] [address] Dr. Marvin Reis Nitrite Ql (U) Negative Normal NEGATIVE The [facility] Comment on above: Performed By: #### U AMIC #### [facility] [address] [place] [address] Dr. Marvin Reis pH (U) 6.0 [pH] Normal 5-9 [facility] Comment on above: Performed By: #### U AMIC #### [facility] [address] [place] [address] Dr. Marvin Reis RBC 0-2 Normal 0-2 [facility] Comment on above: Performed By: #### U AMIC #### [facility] [address] [place] [address] Dr. Marvin Reis SPEC GRAVITY 1.010 Normal 1.005-<=1.025 [facility] Comment on above: Performed By: #### U AMIC #### [facility] [address] [place] [address] Dr. Marvin Reis UA PROTEIN Negative Normal NEGATIVE/ TRACE [facility] Comment on above: Performed By: #### U AMIC #### [facility] [address] [place] [address] Dr. Marvin Reis Urobilinogen Qn (U) 0.2 {Robbie'U}/dL Normal 0.2 - 1. 0 [facility] Comment on above: Performed By: #### U AMIC #### [facility] [address] [place] [address] Dr. Marvin Reis WBC 2-5 Abnormal NONE SEEN [facility] Comment on above: Performed By: #### U AMIC #### [facility] [address] [place] [address] Dr. Marvin Reis CULTURE URINEon 03-27-2022 CULTURE [...] Trimethoprim/Sulfamet hoxazole >=320 R F Normal [facility] Comment on above: Performed By: #### U RCX #### [facility] [address] [place] [address] Dr. Marvin Reis UA RANDOM W/MICROSCOPICon BACTERIA TRACE Abnormal NONE SEEN [facility] Comment on above: Performed By: #### U RCX #### [facility] [address] [place] [address] Dr. Marvin Reis Bilirubin Ql (U) Negative Normal NEGATIVE [facility] Comment on above: Performed By: #### U RCX #### [facility] [address] [place] [address] Dr. Marvin Reis CAST NONE SEEN Normal NONE SEEN [facility] Comment on above: Performed By: #### U RCX #### [facility] [address] [place] [address] Dr. Marvin Reis Clarity (U) CLEAR Normal CLEAR [facility] Comment on above: Performed By: #### U RCX #### [facility] [address] [address] [address] Marvin Reis Color (U) LT. YELLOW Normal YELLOW [facility] Comment on above: Performed By: #### U RCX #### [facility] [address] [place] [address] Dr. Marvin Reis Crystals LM Nom (Urine sed) NONE SEEN Normal NONE SEEN [facility] Comment on above: Performed By: #### U RCX #### [facility] [address] [address] [address] Marvin Reis Epithelial cells LM Ql (Urine sed) FEW Abnormal NONE SEEN /RARE [facility] Comment on above: Performed By: #### U RCX #### [facility] [address] [place] [address] Dr. Marvin Reis Glucose Ql (U) Negative Normal NEGATIVE The [facility] Comment on above: Performed By: #### U RCX #### [facility] [address] [place] [address] Dr. Marvin Reis Hemoglobin Ql (U) SMALL Abnormal NEGATIVE [facility] Comment on above: Performed By: #### U RCX #### [facility] [address] [place] [address] Dr. Marvin Reis Ketones Ql (U) Negative Normal NEGATIVE The [facility] Comment on above: Performed By: #### U RCX #### [facility] [address] [place] [address] Dr. Marvin Reis LEUKOCYTES MODERATE Abnormal NEGATIVE [facility] Comment on above: Performed By: #### U RCX #### [facility] [address] [place] [address] Dr. Marvin Reis MUCOUS NONE SEEN Normal NONE SEEN [facility] Comment on above: Performed By: #### U RCX #### [facility] [address] [place] [address] Dr. Marvin Reis Nitrite Ql (U) Negative Normal NEGATIVE The [facility] Comment on above: Performed By: #### U RCX #### [facility] [address] [place] [address] Dr. Marvin Reis pH (U) 5.5 [pH] Normal 5-9 [facility] Comment on above: Performed By: #### U RCX #### [facility] [address] [place] [address] Dr. Marvin Reis RBC NONE SEEN Abnormal 0-2 [facility] Comment on above: Performed By: #### U RCX #### [facility] [address] [place] [address] Dr. Marvin Reis SPEC GRAVITY 1.015 Normal 1.005-<=1.025 [facility] Comment on above: Performed By: #### U RCX #### [facility] [address] [place] [address] Dr. Marvin Reis UA PROTEIN Negative Normal NEGATIVE/ TRACE [facility] Comment on above: Performed By: #### U RCX #### [facility] [address] [place] [address] Dr. Marvin Reis Urobilinogen Qn (U) 0.2 {Robbie'U}/dL Normal 0.2 - 1. 0 [facility] Comment on above: Performed By: #### U RCX #### [facility] [address] [place] [address] Dr. Marvin Reis WBC 20-50 Abnormal NONE SEEN [facility] Comment on above: Performed By: #### U RCX #### [facility] [address] [place] [address] Dr. Marvin Reis YEAST PRESENT Abnormal NONE SEEN [facility] Comment on above: Performed By: #### U RCX #### [facility] [address] [place] [address] Dr. Marvin Reis CULTURE URINEon 03-18-2022 CULTURE URINE Culture Observations : No growth Normal [facility] Comment on above: Performed By: #### U RCX #### [facility] [address] [place] [address] Dr. Marvin Reis UA RANDOM W/MICROSCOPICon BACTERIA NONE SEEN Normal NONE SEEN [facility] Comment on above: Performed By: #### U AMIC #### [facility] [address] [address] [address] Marvin Reis Bilirubin Ql (U) Negative Normal NEGATIVE [facility] Comment on above: Performed By: #### U AMIC #### [facility] [address] [address] [address] Marvin Reis CAST NONE SEEN Normal NONE SEEN [facility] Comment on above: Performed By: #### U AMIC #### [facility] [address] [place] [address] Dr. Marvin Reis Clarity (U) CLOUDY Abnormal CLEAR [facility] Comment on above: Performed By: #### U AMIC #### [facility] [address] [address] [address] Marvin Reis Color (U) LT. YELLOW Normal YELLOW [facility] Comment on above: Performed By: #### U AMIC #### [facility] [address] [place] [address] Dr. Marvin Reis Crystals LM Nom (Urine sed) NONE SEEN Normal NONE SEEN [facility] Comment on above: Performed By: #### U AMIC #### [facility] [address] [place] [address] Dr. Marvin Reis Epithelial cells LM Ql (Urine sed) RARE Normal NONE SEEN /RARE [facility] Comment on above: Performed By: #### U AMIC #### [facility] [address] [place] [address] Dr. Marvin Reis Glucose Ql (U) Negative Normal NEGATIVE The [facility] Comment on above: Performed By: #### U AMIC #### [facility] [address] [place] [address] Dr. Marvin Reis Hemoglobin Ql (U) TRACE-INTACT Abnormal NEGATIVE [facility] Comment on above: Performed By: #### U AMIC #### [facility] [address] [place] [address] Dr. Marvin Reis Ketones Ql (U) Negative Normal NEGATIVE The [facility] Comment on above: Performed By: #### U AMIC #### [facility] [address] [place] [address] Dr. Marvin Reis LEUKOCYTES MODERATE Abnormal NEGATIVE [facility] Comment on above: Performed By: #### U AMIC #### [facility] [address] [address] [address] Marvin Reis MUCOUS NONE SEEN Normal NONE SEEN [facility] Comment on above: Performed By: #### U AMIC #### [facility] [address] [address] [address] Marvin Reis Nitrite Ql (U) Negative Normal NEGATIVE The [facility] Comment on above: Performed By: #### U AMIC #### [facility] [address] [address] [address] Marvin Reis pH (U) 6.0 [pH] Normal 5-9 [facility] Comment on above: Performed By: #### U AMIC #### [facility] [address] [place] [address] Dr. Marvin Reis RBC NONE SEEN Abnormal 0-2 [facility] Comment on above: Performed By: #### U AMIC #### [facility] [address] [place] [address] Dr. Marvin Reis SPEC GRAVITY 1.015 Normal 1.005-<=1.025 The [facility] Comment on above: Performed By: #### U AMIC #### [facility] [address] [address] [address] Marvin Reis UA PROTEIN Negative Normal NEGATIVE/ TRACE [facility] Comment on above: Performed By: #### U AMIC #### [facility] [address] [address] [address] Marvin Reis Urobilinogen Qn (U) 0.2 {Robbie'U}/dL Normal 0.2 - 1. 0 [facility] Comment on above: Performed By: #### U AMIC #### [facility] [address] [place] [address] Dr. Marvin Reis WBC 10-20 Abnormal NONE SEEN [facility] Comment on above: Performed By: #### U AMIC #### [facility] [address] [place] [address] Dr. Marvin Reis Coding Summary.on 06-21-2020 Coding Summary. CODING DATE: 06/21/2020 FINAL [facility] STATUS: PAYOR: Worker's Compensation ADMIT [...] Hopper CphT Date Saved: 06/21/2020 12:[address] [facility] PT - Assessmentson 0 PT - Assessments [id number]# 1.00CD:[address] [facility] PT - Orderson 06-20-2020 PT - Orders [id number]# 1.00CD:[address] [facility] PT - Workers Compon 06-20-20 20 PT - Workers Comp [id number]# 1.00CD:[address] [facility] Encounters Encounter Date Encounter Type Care Provider Facility Start: 03-10-2023 End: 03-11-2023 ambulatory [facility] Start: 03-03-2023 End: 03-03-[address] [...] Facility:[facility] Payers Date Payer Category Payer Medicare [id number] 1961 Unknown [id number] 1960 Unknown [id number] 2.16.84 0.1.039266.3.579.2.593 1958 Unknown [id number] 2.16.84 0.1.253788.3.579.2.593 1958 Unknown [id number] 2.16.84 0.1.818540.3.579.2.593 1958 Unknown [id number] 2.16.84 0.1.700894.3.579.2.593 1958 Unknown [id number] 2.16.84 0.1.138969.3.579.2.593 1958 Unknown [id number] 2.16.84 0.1.226783.3.579.2.593 1958 Unknown [id number] 2.16.84 0.1.118142.3.579.2.593 1958 Unknown [id number] 2.16.84 0.1.739957.3.579.2.593 1958 Unknown [id number] 2.16.84 0.1.880481.3.579.2.593 1958 Unknown [id number] 2.16.84 0.1.406315.3.579.2.593 1958 Unknown [id number] 2.16.84 0.1.717253.3.579.2.593 1958 Unknown [id number] 2.16.84 0.1.081083.3.579.2.593 1958 Unknown [id number] 2.16.84 0.1.217137.3.579.2.593 1958 Unknown [id number] 2.16.84 0.1.465569.3.579.2.593 1958 Unknown [id number] 2.16.84 0.1.531153.3.579.2.593 1958 Unknown [id number] 2.16.84 0.1.374229.3.579.2.593 1958 Unknown [id number] 2.16.84 0.1.513182.3.579.2.593 1958 Unknown [id number] 2.16.84 0.1.087466.3.579.2.593 1958 Unknown [id number] 2.16.84 0.1.043189.3.579.2.593 Summary Purpose Family History No Family History [...] and content) DATE CREATED AUTHOR 09/19/2020 [facility] DATE CREATED AUTHOR AUTHOR'S ORGANIZ ATION 03/06/2023 [facility] DATE CREATED AUTHOR AUTHOR'S ORGANIZ ATION 03/11/[address] [facility] DATE CREATED AUTHOR AUTHOR'S ORGANIZ ATION 06/07/2023 [facility] FOR RECORDS PERTAINING TO PATIENTS WHO [...] BE BASED ON THE PRIMARY CLINICAL RECORDS. [employer] [facility]. provides no warranty or guarantee of the accuracy or completeness of information in this document.
== END 2024-04-13 15:11 | disposition home or self-care (01) ==
LOC: LAB 15:10
PROVIDERS: PCP Family Medicine; Visit Provider Family Medicine
DX: N31.9 Neuromuscular dysfunction of bladder, unspecified (principal); N39.0 Urinary tract infection, site not specified
CPT/HCPCS: 81001; 87086; 87106

== ENCOUNTER 2024-04-16 12:03 | Outpatient (REF) | payer SELFPAY ==
--- OUTSIDE RECORDS SUMMARY | 2024-04-16 12:24 | XMS_ITS | CCD ---
Author Organization [facility] Care Team Providers Care Safety Professional Name Role Phone HOY ., DR WEBBER [...] Unavailable HOY ., DR WEBBER Admherman Unavailable KEASBEY, DR MAGY [employer] Unavailable HOY ., [...] source) ceFAZolin Drug Allergy 04-21-20 13 [facility] (1 source) Cilastatin / Imipenem Drug Allergy 04-21-20 13 [facility] (1 source) Readi-Cat Drug allergy (disorder) 04-21-20 13 [facility] (1 source) ceFAZolin; Translations: [CEFAZOLIN] Drug Allergy 12-01-19 13 [facility] Rep[facility] (1 source) Cephalexin; Translations: [CEPHALEXIN MONOHYDRATE] Drug Allergy 08-03-20 09 [facility] Rep[facility] (1 source) Promazine; Translations: [PROMAZINE] Drug Allergy 12-01-19 13 [facility] (1 source) Sulfamethoxazole / Trimethoprim; Translations: [SULFAMETHOXAZOLE-TR IMETHOPRIM] Drug Allergy 03-10-20 23 [facility] Rep[facility] (1 source) IODINATED CONTRAST MEDIA; Translations: [IODINATED CONTRAST MEDIA] Propensity to adverse reactions to drug (disorder) 12-01-19 13 [facility] Repository Problems Active Problems Problem Classification [...] RESISTANT TO ALL B-LACTAM DRUGS. PERFORMED BY: [place] [id number] PATHOLOGIST [employer]IPPING AND RECEIVING MATERIAL HANDLER MARLA VEGA M.D. [facility] Comment on above: Performed By: #### A MAI LAYNE #### [place] [id number] [place] Gram Stainon 06-03-2023 Microscopic observation Gram stain Nom (Unsp spec) Gram Stain Result No Bacteria Seen PERFORMED BY: [place] [id number] PATHOLOGIST SHIPPING AND RECEIVING MATERIAL HANDLER MARLA VEGA M.D. [facility] Comment on above: Performed By: #### A MAI LAYNE #### [place] [id number] [place] CULTURE URINEon 03-06-2023 CULTURE URINE Isolate [...] F Levofloxacin 2 S F Normal [facility] Comment on above: Performed By: #### U RCX #### [facility] [address] [place] [address] Dr. Marvin Reis UA RANDOM W/MICROSCOPICon BACTERIA SMALL Abnormal NONE SEEN [facility] Comment on above: Performed By: #### U AMIC #### [facility] [address] [place] [address] Dr. Marvin Reis Bilirubin Ql (U) Negative Normal NEGATIVE [facility] Comment on above: Performed By: #### U AMIC #### [facility] [address] [place] [address] Dr. Marvin Reis CAST NONE SEEN Normal NONE SEEN [facility] Comment on above: Performed By: #### U AMIC #### [facility] [address] [place] [address] Dr. Marvin Reis Clarity (U) CLEAR Normal CLEAR [facility] Comment on above: Performed By: #### U AMIC #### [facility] [address] [place] [address] Dr. Marvin Reis Color (U) LT. YELLOW Normal YELLOW [facility] Comment on above: Performed By: #### U AMIC #### [facility] [address] [address] [address] Marvin Reis Crystals LM Nom (Urine sed) NONE SEEN Normal NONE SEEN [facility] Comment on above: Performed By: #### U AMIC #### [facility] [address] [place] [address] Dr. Marvin Reis Epithelial cells LM Ql (Urine sed) RARE Normal NONE SEEN /RARE [facility] Comment on above: Performed By: #### U AMIC #### [facility] [address] [address] [address] Marvin Reis Glucose Ql (U) Negative Normal NEGATIVE [facility] Comment on above: Performed By: #### U AMIC #### [facility] [address] [place] [address] Dr. Marvin Reis Hemoglobin Ql (U) Negative Normal NEGATIVE [facility] Comment on above: Performed By: #### U AMIC #### [facility] [address] [place] [address] Dr. Marvin Reis Ketones Ql (U) Negative Normal NEGATIVE [facility] Comment on above: Performed By: #### U AMIC #### [facility] [address] [place] [address] Dr. Marvin Reis LEUKOCYTES SMALL Abnormal NEGATIVE [facility] Comment on above: Performed By: #### U AMIC #### [facility] [address] [place] [address] Dr. Marvin Reis MUCOUS NONE SEEN Normal NONE SEEN [facility] Comment on above: Performed By: #### U AMIC #### [facility] [address] [place] [address] Dr. Marvin Reis Nitrite Ql (U) Negative Normal NEGATIVE [facility] Comment on above: Performed By: #### U AMIC #### [facility] [address] [place] [address] Dr. Marvin Reis pH (U) 6.0 [pH] Normal 5-9 [facility] Comment on above: Performed By: #### U AMIC #### [facility] [address] [place] [address] Dr. Marvin Reis RBC 0-2 Normal 0-2 [facility] Comment on above: Performed By: #### U AMIC #### [facility] [address] [place] [address] Dr. Marvin Reis SPEC GRAVITY 1.010 Normal 1.005-<=1.025 [facility] Comment on above: Performed By: #### U AMIC #### [facility] [address] [address] [address] Marvin Reis UA PROTEIN Negative Normal NEGATIVE/ TRACE [facility] Comment on above: Performed By: #### U AMIC #### [facility] [address] [place] [address] Dr. Marvin Reis Urobilinogen Qn (U) 0.2 {Robbie'U}/dL Normal 0.2 - 1. 0 [facility] Comment on above: Performed By: #### U AMIC #### [facility] [address] [place] [address] Dr. Marvin Reis WBC 5-10 Abnormal NONE SEEN [facility] Comment on above: Performed By: #### U AMIC #### [facility] [address] [place] [address] Dr. Marvin Reis CULTURE URINEon 02-13-2023 CULTURE [...] F Levofloxacin 2 S F Normal [facility] Comment on above: Performed By: #### U RCX #### [facility] [address] [place] [address] Dr. Marvin Reis UA RANDOM W/MICROSCOPICon BACTERIA MODERATE Abnormal NONE SEEN [facility] Comment on above: Performed By: #### U AMIC #### [facility] [address] [place] [address] Dr. Marvin Reis Bilirubin Ql (U) Negative Normal NEGATIVE [facility] Comment on above: Performed By: #### U AMIC #### [facility] [address] [place] [address] Dr. Marvin Reis CAST NONE SEEN Normal NONE SEEN [facility] Comment on above: Performed By: #### U AMIC #### [facility] [address] [place] [address] Dr. Marvin Reis Clarity (U) CLEAR Normal CLEAR [facility] Comment on above: Performed By: #### U AMIC #### [facility] [address] [place] [address] Dr. Marvin Reis Color (U) LT. YELLOW Normal YELLOW [facility] Comment on above: Performed By: #### U AMIC #### [facility] [address] [place] [address] Dr. Marvin Reis Crystals LM Nom (Urine sed) NONE SEEN Normal NONE SEEN [facility] Comment on above: Performed By: #### U AMIC #### [facility] [address] [place] [address] Dr. Marvin Reis Epithelial cells LM Ql (Urine sed) MODERATE Abnormal NONE SEEN /RARE [facility] Comment on above: Performed By: #### U AMIC #### [facility] [address] [place] [address] Dr. Marvin Reis Glucose Ql (U) Negative Normal NEGATIVE [facility] Comment on above: Performed By: #### U AMIC #### [facility] [address] [place] [address] Dr. Marvin Reis Hemoglobin Ql (U) SMALL Abnormal NEGATIVE [facility] Comment on above: Performed By: #### U AMIC #### [facility] [address] [address] [address] Marvin Reis Ketones Ql (U) Negative Normal NEGATIVE [facility] Comment on above: Performed By: #### U AMIC #### [facility] [address] [address] [address] Marvin Reis LEUKOCYTES LARGE Abnormal NEGATIVE [facility] Comment on above: Performed By: #### U AMIC #### [facility] [address] [address] [address] Marvin Reis MUCOUS NONE SEEN Normal NONE SEEN [facility] Comment on above: Performed By: #### U AMIC #### [facility] [address] [place] [address] Dr. Marvin Reis Nitrite Ql (U) Positive Abnormal NEGATIVE [facility] Comment on above: Performed By: #### U AMIC #### [facility] [address] [address] [address] Marvin Reis pH (U) 5.5 [pH] Normal 5-9 [facility] Comment on above: Performed By: #### U AMIC #### [facility] [address] [address] [address] Marvin Reis RBC 5-10 Abnormal 0-2 [facility] Comment on above: Performed By: #### U AMIC #### [facility] [address] [address] [address] Marvin Reis SPEC GRAVITY 1.015 Normal 1.005-<=1.025 [facility] Comment on above: Performed By: #### U AMIC #### [facility] [address] [address] [address] Marvin Reis UA PROTEIN Negative Normal NEGATIVE/ TRACE [facility] Comment on above: Performed By: #### U AMIC #### [facility] [address] [place] [address] Dr. Marvin Reis Urobilinogen Qn (U) 0.2 {Robbie'U}/dL Normal 0.2 - 1. 0 [facility] Comment on above: Performed By: #### U AMIC #### [facility] [address] [place] [address] Dr. Marvin Reis WBC 50-75 Abnormal NONE SEEN [facility] Comment on above: Performed By: #### U AMIC #### [facility] [id number] Marvin Reis CULTURE URINEon 01-23-2023 CULTURE [...] Trimethoprim/Sulfamet hoxazole <=10 S F Normal [facility] Comment on above: Performed By: #### U AMIC #### [facility] [address] [place] [address] Dr. Marvin Reis UA RANDOM W/MICROSCOPICon BACTERIA TRACE Abnormal NONE SEEN [facility] Comment on above: Performed By: #### U AMIC #### [facility] [address] [place] [address] Dr. Marvin Reis Bilirubin Ql (U) Negative Normal NEGATIVE [facility] Comment on above: Performed By: #### U AMIC #### [facility] [address] [address] [address] Marvin Reis CAST NONE SEEN Normal NONE SEEN [facility] Comment on above: Performed By: #### U AMIC #### [facility] [address] [address] [address] Marvin Reis Clarity (U) SL CLOUDY Abnormal CLEAR [facility] Comment on above: Performed By: #### U AMIC #### [facility] [address] [address] [address] Marvin Reis Color (U) LT. YELLOW Normal YELLOW [facility] Comment on above: Performed By: #### U AMIC #### [facility] [address] [place] [address] Dr. Marvin Reis Crystals LM Nom (Urine sed) NONE SEEN Normal NONE SEEN [facility] Comment on above: Performed By: #### U AMIC #### [facility] [address] [place] [address] Dr. Marvin Reis Epithelial cells LM Ql (Urine sed) NONE SEEN Normal NONE SEEN /RARE [facility] Comment on above: Performed By: #### U AMIC #### [facility] [address] [place] [address] Dr. Marvin Reis Glucose Ql (U) Negative Normal NEGATIVE [facility] Comment on above: Performed By: #### U AMIC #### [facility] [address] [address] [address] Marvin Reis Hemoglobin Ql (U) Negative Normal NEGATIVE [facility] Comment on above: Performed By: #### U AMIC #### [facility] [address] [address] [address] Marvin Reis Ketones Ql (U) Negative Normal NEGATIVE [facility] Comment on above: Performed By: #### U AMIC #### [facility] [address] [place] [address] Dr. Marvin Reis LEUKOCYTES TRACE Abnormal NEGATIVE [facility] Comment on above: Performed By: #### U AMIC #### [facility] [address] [address] [address] Marvin Reis MUCOUS NONE SEEN Normal NONE SEEN [facility] Comment on above: Performed By: #### U AMIC #### [facility] [address] [place] [address] Dr. Marvin Reis Nitrite Ql (U) Negative Normal NEGATIVE [facility] Comment on above: Performed By: #### U AMIC #### [facility] [address] [place] [address] Dr. Marvin Reis pH (U) 6.0 [pH] Normal 5-9 [facility] Comment on above: Performed By: #### U AMIC #### [facility] [address] [place] [address] Dr. Marvin Reis RBC NONE SEEN Abnormal 0-2 [facility] Comment on above: Performed By: #### U AMIC #### [facility] [address] [place] [address] Dr. Marvin Reis SPEC GRAVITY 1.020 Normal 1.005-<=1.025 [facility] Comment on above: Performed By: #### U AMIC #### [facility] [address] [place] [address] Dr. Marvin Reis UA PROTEIN Negative Normal NEGATIVE/ TRACE [facility] Comment on above: Performed By: #### U AMIC #### [facility] [address] [place] [address] Dr. Marvin Reis Urobilinogen Qn (U) 0.2 {Robbie'U}/dL Normal 0.2 - 1. 0 [facility] Comment on above: Performed By: #### U AMIC #### [facility] [address] [place] [address] Dr. Marvin Reis WBC 10-20 Abnormal NONE SEEN [facility] Comment on above: Performed By: #### U AMIC #### [facility] [address] [place] [address] Dr. Marvin Reis CULTURE URINEon 01-07-2023 CULTURE URINE Isolate 1 Dawna albicans 10,000 cfu/mL of Normal [facility] Comment on above: Performed By: #### U RCX #### [facility] [address] [address] [address] Marvin Reis UA RANDOM W/MICROSCOPICon BACTERIA TRACE Abnormal NONE SEEN [facility] Comment on above: Performed By: #### U AMIC #### [facility] [address] [address] [address] Marvin Reis Bilirubin Ql (U) Negative Normal NEGATIVE [facility] Comment on above: Performed By: #### U AMIC #### [facility] [address] [address] [address] Marvin Reis CA OX CRYSTALS RARE Normal [facility] Comment on above: Performed By: #### U AMIC #### [facility] [address] [address] [address] Marvin Reis CAST NONE SEEN Normal NONE SEEN [facility] Comment on above: Performed By: #### U AMIC #### [facility] [address] [address] [address] Marvin Reis Clarity (U) CLEAR Normal CLEAR [facility] Comment on above: Performed By: #### U AMIC #### [facility] [address] [address] [address] Marvin Reis Color (U) LT. YELLOW Normal YELLOW [facility] Comment on above: Performed By: #### U AMIC #### [facility] [address] [address] [address] Marvin Reis Crystals LM Nom (Urine sed) SEEN Abnormal NONE SEEN [facility] Comment on above: Performed By: #### U AMIC #### [facility] [address] [address] [address] Marvin Reis Epithelial cells LM Ql (Urine sed) FEW Abnormal NONE SEEN /RARE [facility] Comment on above: Performed By: #### U AMIC #### [facility] [address] [address] [address] Marvin Reis Glucose Ql (U) Negative Normal NEGATIVE [facility] Comment on above: Performed By: #### U AMIC #### [facility] [address] [address] [address] Marvin Reis Hemoglobin Ql (U) Negative Normal NEGATIVE [facility] Comment on above: Performed By: #### U AMIC #### [facility] [address] [address] [address] Marvin Reis Ketones Ql (U) Negative Normal NEGATIVE [facility] Comment on above: Performed By: #### U AMIC #### [facility] [address] [address] [address] Marvin Reis LEUKOCYTES SMALL Abnormal NEGATIVE [facility] Comment on above: Performed By: #### U AMIC #### [facility] [address] [place] [address] Dr. Marvin Reis MUCOUS NONE SEEN Normal NONE SEEN [facility] Comment on above: Performed By: #### U AMIC #### [facility] [address] [place] [address] Dr. Marvin Reis Nitrite Ql (U) Negative Normal NEGATIVE [facility] Comment on above: Performed By: #### U AMIC #### [facility] [address] [place] [address] Dr. Marvin Reis pH (U) 5.5 [pH] Normal 5-9 [facility] Comment on above: Performed By: #### U AMIC #### [facility] [address] [place] [address] Dr. Marvin Reis RBC 0-2 Normal 0-2 [facility] Comment on above: Performed By: #### U AMIC #### [facility] [address] [place] [address] Dr. Marvin Reis SPEC GRAVITY 1.015 Normal 1.005-<=1.025 [facility] Comment on above: Performed By: #### U AMIC #### [facility] [address] [place] [address] Dr. Marvin Reis UA PROTEIN Negative Normal NEGATIVE/ TRACE [facility] Comment on above: Performed By: #### U AMIC #### [facility] [address] [place] [address] Dr. Marvin Reis Urobilinogen Qn (U) 0.2 {Robbie'U}/dL Normal 0.2 - 1. 0 [facility] Comment on above: Performed By: #### U AMIC #### [facility] [address] [place] [address] Dr. Marvin Reis WBC 50-75 Abnormal NONE SEEN [facility] Comment on above: Performed By: #### U AMIC #### [facility] [address] [place] [address] Dr. Marvin Reis YEAST PRESENT Abnormal NONE SEEN [facility] Comment on above: Performed By: #### U AMIC #### [facility] [address] [place] [address] Dr. Marvin Reis CULTURE URINEon 12-25-2022 CULTURE [...] Trimethoprim/Sulfamet hoxazole >=320 R F Normal [facility] Comment on above: Performed By: #### U RCX #### [facility] [address] [place] [address] Dr. Marvin Reis UA RANDOM W/MICROSCOPICon BACTERIA NONE SEEN Normal NONE SEEN [facility] Comment on above: Performed By: #### U AMIC #### [facility] [address] [place] [address] Dr. Marvin Reis Bilirubin Ql (U) Negative Normal NEGATIVE [facility] Comment on above: Performed By: #### U AMIC #### [facility] [address] [place] [address] Dr. Marvin Reis CAST NONE SEEN Normal NONE SEEN [facility] Comment on above: Performed By: #### U AMIC #### [facility] [address] [place] [address] Dr. Marvin Reis Clarity (U) CLEAR Normal CLEAR [facility] Comment on above: Performed By: #### U AMIC #### [facility] [address] [address] [address] Marvin Reis Color (U) LT. YELLOW Normal YELLOW [facility] Comment on above: Performed By: #### U AMIC #### [facility] [address] [place] [address] Dr. Marvin Reis Crystals LM Nom (Urine sed) NONE SEEN Normal NONE SEEN [facility] Comment on above: Performed By: #### U AMIC #### [facility] [address] [place] [address] Dr. Marvin Reis Epithelial cells LM Ql (Urine sed) RARE Normal NONE SEEN /RARE [facility] Comment on above: Performed By: #### U AMIC #### [facility] [address] [place] [address] Dr. Marvin Reis Glucose Ql (U) Negative Normal NEGATIVE [facility] Comment on above: Performed By: #### U AMIC #### [facility] [address] [place] [address] Dr. Marvin Reis Hemoglobin Ql (U) Negative Normal NEGATIVE [facility] Comment on above: Performed By: #### U AMIC #### [facility] [address] [address] [address] Marvin Reis Ketones Ql (U) Negative Normal NEGATIVE [facility] Comment on above: Performed By: #### U AMIC #### [facility] [address] [place] [address] Dr. Marvin Reis LEUKOCYTES MODERATE Abnormal NEGATIVE [facility] Comment on above: Performed By: #### U AMIC #### [facility] [address] [place] [address] Dr. Marvin Reis MUCOUS NONE SEEN Normal NONE SEEN [facility] Comment on above: Performed By: #### U AMIC #### [facility] [address] [place] [address] Dr. Marvin Reis Nitrite Ql (U) Negative Normal NEGATIVE [facility] Comment on above: Performed By: #### U AMIC #### [facility] [address] [place] [address] Dr. Marvin Reis pH (U) 5.5 [pH] Normal 5-9 [facility] Comment on above: Performed By: #### U AMIC #### [facility] [address] [place] [address] Dr. Marvin Reis RBC NONE SEEN Abnormal 0-2 [facility] Comment on above: Performed By: #### U AMIC #### [facility] [address] [place] [address] Dr. Marvin Reis SPEC GRAVITY 1.015 Normal 1.005-<=1.025 [facility] Comment on above: Performed By: #### U AMIC #### [facility] [address] [place] [address] Dr. Marvin Reis UA PROTEIN Negative Normal NEGATIVE/ TRACE [facility] Comment on above: Performed By: #### U AMIC #### [facility] [address] [place] [address] Dr. Marvin Reis Urobilinogen Qn (U) 0.2 {Robbie'U}/dL Normal 0.2 - 1. 0 [facility] Comment on above: Performed By: #### U AMIC #### [facility] [address] [place] [address] Dr. Marvin Reis WBC 10-20 Abnormal NONE SEEN [facility] Comment on above: Performed By: #### U AMIC #### [facility] [address] [place] [address] Dr. Marvin Reis CULTURE URINEon 12-05-2022 CULTURE [...] Trimethoprim/Sulfamet hoxazole <=20 S F Normal [facility] Comment on above: Performed By: #### U RCX #### [facility] [address] [place] [address] Dr. Marvin Reis CREATININEon 12-03-2022 Creatinine [Mass/Vol] 0.88 mg/dL Normal 0.70-1.30 [facility] Comment on above: Performed By: #### U RCX #### [facility] [address] [place] [address] Dr. Marvin Reis EGFR-AF MOZAMBICAN >60 Normal >=60 [facility] Comment on above: Performed By: #### U RCX #### [facility] [address] [place] [address] Dr. Marvin Reis EGFR-NON AF MOZAMBICAN >60 Normal >=60 [facility] Comment on above: Performed By: #### U RCX #### [facility] [address] [place] [address] ABDOMEN WO/W CONon [...] ELENO PARKER Date: 2022-12-03 14:51 Normal [facility] UA RANDOM W/MICROSCOPICon BACTERIA TRACE Abnormal NONE SEEN [facility] Comment on above: Performed By: #### U RCX #### [facility] [address] [place] [address] Dr. Marvin Reis Bilirubin Ql (U) Negative Normal NEGATIVE [facility] Comment on above: Performed By: #### U RCX #### [facility] [address] [place] [address] Dr. Marvin Reis CAST NONE SEEN Normal NONE SEEN [facility] Comment on above: Performed By: #### U RCX #### [facility] [address] [place] [address] Dr. Marvin Reis Clarity (U) CLEAR Normal CLEAR [facility] Comment on above: Performed By: #### U RCX #### [facility] [address] [place] [address] Dr. Marvin Reis Color (U) LT. YELLOW Normal YELLOW [facility] Comment on above: Performed By: #### U RCX #### [facility] [address] [place] [address] Dr. Marvin Reis Crystals LM Nom (Urine sed) NONE SEEN Normal NONE SEEN [facility] Comment on above: Performed By: #### U RCX #### [facility] [address] [place] [address] Dr. Marvin Reis Epithelial cells LM Ql (Urine sed) RARE Normal NONE SEEN /RARE [facility] Comment on above: Performed By: #### U RCX #### [facility] [address] [address] [address] Marvin Reis Glucose Ql (U) Negative Normal NEGATIVE [facility] Comment on above: Performed By: #### U RCX #### [facility] [address] [address] [address] Marvin Reis Hemoglobin Ql (U) TRACE-INTACT Abnormal NEGATIVE [facility] Comment on above: Performed By: #### U RCX #### [facility] [address] [address] [address] Marvin Reis Ketones Ql (U) Negative Normal NEGATIVE [facility] [facility] Comment on above: Performed By: #### U RCX #### [facility] [address] [place] [address] Dr. Marvin Reis LEUKOCYTES TRACE Abnormal NEGATIVE [facility] Comment on above: Performed By: #### U RCX #### [facility] [address] [address] [address] Marvin Reis MUCOUS TRACE Abnormal NONE SEEN [facility] Comment on above: Performed By: #### U RCX #### [facility] [address] [place] [address] Dr. Marvin Reis Nitrite Ql (U) Negative Normal NEGATIVE [facility] Comment on above: Performed By: #### U RCX #### [facility] [address] [address] [address] Marvin Reis pH (U) 5.0 [pH] Normal 5-9 [facility] Comment on above: Performed By: #### U RCX #### [facility] [address] [address] [address] Marvin Reis RBC 0-2 Normal 0-2 [facility] Comment on above: Performed By: #### U RCX #### [facility] [address] [place] [address] Dr. Marvin Reis SPEC GRAVITY 1.010 Normal 1.005-<=1.025 [facility] Comment on above: Performed By: #### U RCX #### [facility] [address] [place], [place] [address] Dr. Marvin Reis UA PROTEIN TRACE Normal NEGATIVE/ TRACE [facility] Comment on above: Performed By: #### U RCX #### [facility] [address] [place], [place] [address] Dr. Marvin Reis Urobilinogen Qn (U) 0.2 {Robbie'U}/dL Normal 0.2 - 1. 0 [facility] Comment on above: Performed By: #### U RCX #### [facility] [address] [address] [address] Marvin Reis WBC 2-5 Abnormal NONE SEEN [facility] Comment on above: Performed By: #### U RCX #### [facility] [address] ABD/PELVIS WO CONon [...] MAGY COMER Date: 2022-11-20 14:51 Normal [facility] CULTURE URINEon 11-11-2022 CULTURE URINE Culture Observations : GUSTABO TO FOLLOW. Isolate 1 Enterobacter aerogenes >100,000 cfu/mL of Normal [facility] Comment on above: Performed By: #### U RCX #### [facility] [address] [place] [address] Dr. Marvin Reis UA RANDOM W/MICROSCOPICon BACTERIA SMALL Abnormal NONE SEEN [facility] Comment on above: Performed By: #### U AMIC #### [facility] [address] [place] [address] Dr. Marvin Reis Bilirubin Ql (U) Negative Normal NEGATIVE [facility] Comment on above: Performed By: #### U AMIC #### [facility] [address] [place] [address] Dr. Marvin Reis CAST NONE SEEN Normal NONE SEEN [facility] Comment on above: Performed By: #### U AMIC #### [facility] [address] [place] [address] Dr. Marvin Reis Clarity (U) CLOUDY Abnormal CLEAR [facility] Comment on above: Performed By: #### U AMIC #### [facility] [address] [place] [address] Dr. Marvin Reis Color (U) LT. YELLOW Normal YELLOW [facility] Comment on above: Performed By: #### U AMIC #### [facility] [address] [address] [address] Marvin Reis Crystals LM Nom (Urine sed) NONE SEEN Normal NONE SEEN [facility] Comment on above: Performed By: #### U AMIC #### [facility] [address] [address] [address] Marvin Reis Epithelial cells LM Ql (Urine sed) NONE SEEN Normal NONE SEEN /RARE [facility] Comment on above: Performed By: #### U AMIC #### [facility] [address] [address] [address] Marvin Reis Glucose Ql (U) Negative Normal NEGATIVE [facility] Comment on above: Performed By: #### U AMIC #### [facility] [address] [place] [address] Dr. Marvin Reis Hemoglobin Ql (U) TRACE-INTACT Abnormal NEGATIVE [facility] Comment on above: Performed By: #### U AMIC #### [facility] [address] [address] [address] Marvin Reis Ketones Ql (U) Negative Normal NEGATIVE [facility] Comment on above: Performed By: #### U AMIC #### [facility] [address] [address] [address] Marvin Reis LEUKOCYTES LARGE Abnormal NEGATIVE [facility] Comment on above: Performed By: #### U AMIC #### [facility] [address] [address] [address] Marvin Reis MUCOUS NONE SEEN Normal NONE SEEN [facility] Comment on above: Performed By: #### U AMIC #### [facility] [address] [place] [address] Dr. Marvin Reis Nitrite Ql (U) Positive Abnormal NEGATIVE [facility] Comment on above: Performed By: #### U AMIC #### [facility] [address] [place] [address] Dr. Marvin Reis pH (U) 5.5 [pH] Normal 5-9 [facility] Comment on above: Performed By: #### U AMIC #### [facility] [address] [place] [address] Dr. Marvin Reis RBC 0-2 Normal 0-2 [facility] Comment on above: Performed By: #### U AMIC #### [facility] [address] [place] [address] Dr. Marvin Reis SPEC GRAVITY 1.015 Normal 1.005-<=1.025 [facility] Comment on above: Performed By: #### U AMIC #### [facility] [address] [place] [address] Dr. Marvin Reis UA PROTEIN Negative Normal NEGATIVE/ TRACE [facility] Comment on above: Performed By: #### U AMIC #### [facility] [address] [place] [address] Dr. Marvin Reis Urobilinogen Qn (U) 0.2 {Robbie'U}/dL Normal 0.2 - 1. 0 [facility] Comment on above: Performed By: #### U AMIC #### [facility] [address] [place] [address] Dr. Marvin Reis WBC 10-20 Abnormal NONE SEEN [facility] Comment on above: Performed By: #### U AMIC #### [facility] [address] [place] [address] Dr. Marvin Reis CULTURE URINEon 10-24-2022 CULTURE [...] Trimethoprim/Sulfamet hoxazole <=20 S F Normal [facility] Comment on above: Performed By: #### U RCX #### [facility] [address] [place] [address] Dr. Marvin Reis UA RANDOM W/MICROSCOPICon BACTERIA LARGE Abnormal NONE SEEN [facility] Comment on above: Performed By: #### U AMIC #### [facility] [address] [address] [address] Marvin Reis Bilirubin Ql (U) Negative Normal NEGATIVE [facility] Comment on above: Performed By: #### U AMIC #### [facility] [address] [address] [address] Marvin Reis CAST NONE SEEN Normal NONE SEEN [facility] Comment on above: Performed By: #### U AMIC #### [facility] [address] [address] [address] Marvin Reis Clarity (U) SL CLOUDY Abnormal CLEAR [facility] Comment on above: Performed By: #### U AMIC #### [facility] [address] [address] [address] Marvin Reis Color (U) YELLOW Normal YELLOW [facility] Comment on above: Performed By: #### U AMIC #### [facility] [address] [address] [address] Marvin Reis Crystals LM Nom (Urine sed) NONE SEEN Normal NONE SEEN [facility] Comment on above: Performed By: #### U AMIC #### [facility] [address] [address] [address] Marvin Reis Epithelial cells LM Ql (Urine sed) FEW Abnormal NONE SEEN /RARE [facility] Comment on above: Performed By: #### U AMIC #### [facility] [address] [address] [address] Marvin Reis Glucose Ql (U) Negative Normal NEGATIVE [facility] Comment on above: Performed By: #### U AMIC #### [facility] [address] [address] [address] Marvin Reis Hemoglobin Ql (U) TRACE-INTACT Abnormal NEGATIVE [facility] Comment on above: Performed By: #### U AMIC #### [facility] [address] [address] [address] Marvin Reis Ketones Ql (U) Negative Normal NEGATIVE [facility] Comment on above: Performed By: #### U AMIC #### [facility] [address] [address] [address] Marvin Reis LEUKOCYTES LARGE Abnormal NEGATIVE [facility] Comment on above: Performed By: #### U AMIC #### [facility] [address] [address] [address] Marvin Reis MUCOUS NONE SEEN Normal NONE SEEN [facility] Comment on above: Performed By: #### U AMIC #### [facility] [address] [address] [address] Marvin Reis Nitrite Ql (U) Negative Normal NEGATIVE [facility] Comment on above: Performed By: #### U AMIC #### [facility] [address] [address] [address] Marvin Reis pH (U) 5.0 [pH] Normal 5-9 [facility] Comment on above: Performed By: #### U AMIC #### [facility] [address] [address] [address] Marvin Reis RBC 5-10 Abnormal 0-2 [facility] Comment on above: Performed By: #### U AMIC #### [facility] [address] [address] [address] Marvin Reis SPEC GRAVITY 1.010 Normal 1.005-<=1.025 [facility] Comment on above: Performed By: #### U AMIC #### [facility] [address] [place] [address] Dr. Marvin Reis UA PROTEIN Negative Normal NEGATIVE/ TRACE [facility] Comment on above: Performed By: #### U AMIC #### [facility] [address] [place] [address] Dr. Marvin Reis Urobilinogen Qn (U) 0.2 {Robbie'U}/dL Normal 0.2 - 1. 0 [facility] Comment on above: Performed By: #### U AMIC #### [facility] [address] [address] [address] Marvin Reis WBC 50-75 Abnormal NONE SEEN [facility] Comment on above: Performed By: #### U AMIC #### [facility] [address] [address] [address] Marvin Reis CULTURE URINEon 10-01-2022 CULTURE URINE Culture Observations : NO GROWTH. Normal [facility] Comment on above: Performed By: #### U AMIC #### [facility] [address] [address] [address] Marvin Reis UA RANDOM W/MICROSCOPICon BACTERIA SMALL Abnormal NONE SEEN [facility] Comment on above: Performed By: #### U AMIC #### [facility] [address] [address] [address] Marvin Reis Bilirubin Ql (U) Negative Normal NEGATIVE [facility] Comment on above: Performed By: #### U AMIC #### [facility] [address] [address] [address] Marvin Reis CAST SEEN Abnormal NONE SEEN [facility] Comment on above: Performed By: #### U AMIC #### [facility] [address] [address] [address] Marvin Reis Clarity (U) CLEAR Normal CLEAR [facility] Comment on above: Performed By: #### U AMIC #### [facility] [address] [address] [address] Marvin Reis Color (U) LT. YELLOW Normal YELLOW [facility] Comment on above: Performed By: #### U AMIC #### [facility] [address] [address] [address] Marvin Reis Crystals LM Nom (Urine sed) NONE SEEN Normal NONE SEEN [facility] Comment on above: Performed By: #### U AMIC #### [facility] [address] [address] [address] Marvin Reis Epithelial cells LM Ql (Urine sed) FEW Abnormal NONE SEEN /RARE [facility] Comment on above: Performed By: #### U AMIC #### [facility] [address] [place] [address] Dr. Marvin Reis Glucose Ql (U) Negative Normal NEGATIVE [facility] Comment on above: Performed By: #### U AMIC #### [facility] [address] [place] [address] Dr. Marvin Reis Hemoglobin Ql (U) TRACE-INTACT Abnormal NEGATIVE [facility] Comment on above: Performed By: #### U AMIC #### [facility] [address] [address] [address] Marvin Reis HYALINE CAST FEW Normal [facility] Comment on above: Performed By: #### U AMIC #### [facility] [address] [place] [address] Dr. Marvin Reis Ketones Ql (U) Negative Normal NEGATIVE [facility] Comment on above: Performed By: #### U AMIC #### [facility] [address] [place] [address] Dr. Marvin Reis LEUKOCYTES MODERATE Abnormal NEGATIVE [facility] Comment on above: Performed By: #### U AMIC #### [facility] [address] [place] [address] Dr. Marvin Reis MUCOUS SMALL Abnormal NONE SEEN [facility] Comment on above: Performed By: #### U AMIC #### [facility] [address] [place] [address] Dr. Marvin Reis Nitrite Ql (U) Negative Normal NEGATIVE [facility] Comment on above: Performed By: #### U AMIC #### [facility] [address] [place] [address] Dr. Marvin Reis pH (U) 5.5 [pH] Normal 5-9 [facility] Comment on above: Performed By: #### U AMIC #### [facility] [address] [place] [address] Dr. Marvin Reis RBC 0-2 Normal 0-2 [facility] Comment on above: Performed By: #### U AMIC #### [facility] [address] [place] [address] Dr. Marvin Reis SPEC GRAVITY 1.020 Normal 1.005-<=1.025 [facility] Comment on above: Performed By: #### U AMIC #### [facility] [address] [place] [address] Dr. Marvin Reis UA PROTEIN Negative Normal NEGATIVE/ TRACE [facility] Comment on above: Performed By: #### U AMIC #### [facility] [address] [address] [address] Marvin Reis Urobilinogen Qn (U) 0.2 {Robbie'U}/dL Normal 0.2 - 1. 0 [facility] Comment on above: Performed By: #### U AMIC #### [facility] [address] [address] [address] Marvin Reis WBC 10-20 Abnormal NONE SEEN [facility] Comment on above: Performed By: #### U AMIC #### [facility] [address] [address] [address] Marvin Reis CULTURE URINEon 09-26-2022 CULTURE [...] Trimethoprim/Sulfamet hoxazole <=20 S F Normal [facility] Comment on above: Performed By: #### U RCX #### [facility] [address] [place] [address] Dr. Marvin Reis CBC W MANUAL DIFFon 09-25-20 ANISOCYTOSIS SLIGHT Normal [facility] Comment on above: Performed By: #### U RCX #### [facility] [address] [place] [address] Dr. Marvin Reis ATYPICAL LYMPH # Normal [facility] Comment on above: Performed By: #### U RCX #### [facility] [address] [place] [address] Dr. Marvin Reis ATYPICAL LYMPH % Normal [facility] Comment on above: Performed By: #### U RCX #### [facility] [address] [place] [address] Dr. Marvin Reis BAND # Normal 0.0-0.3 [facility] Comment on above: Performed By: #### U RCX #### [facility] [address] [place] [address] Dr. Marvin Reis BAND % Normal 0-5 [facility] Comment on above: Performed By: #### U RCX #### [facility] [address] [place] [address] Dr. Marvin Reis BASOM # 0.00 103/ul Normal 0.00-0.10 [facility] Comment on above: Performed By: #### U RCX #### [facility] [address] [place] [address] Dr. Marvin Reis BASOM % 0.0 % Critically low 0.2-2.0 [facility] Comment on above: Performed By: #### U RCX #### [facility] [address] [place] [address] Dr. Marvin Reis BLAST # Normal [facility] Comment on above: Performed By: #### U RCX #### [facility] [address] [place] [address] Dr. Marvin Reis BLAST % Normal [facility] Comment on above: Performed By: #### U RCX #### [facility] [address] [place] [address] Dr. Marvin Reis CORRECTED WBC Normal 4.0-11.0 [facility] Comment on above: Performed By: #### U RCX #### [facility] [address] [place] [address] Dr. Marvin Reis EOS # 0.00 103/ul Normal 0.00-0.70 [facility] Comment on above: Performed By: #### U RCX #### [facility] [address] [place] [address] Dr. Marvin Reis EOS% 0.0 % Critically low 0.9-7.0 [facility] Comment on above: Performed By: #### U RCX #### [facility] [address] [place] [address] Dr. Marvin Reis HCT 32.1 % Critically low 42.0-54.0 [facility] Comment on above: Performed By: #### U RCX #### [facility] [address] [address] [address] Marvin Reis HGB 10.2 g/dl Critically low 14.0-18.0 [facility] Comment on above: Performed By: #### U RCX #### [facility] [address] [address] [address] Marvin Reis LYMPHM # 0.76 103/ul Critically low 1.20-3.80 [facility] Comment on above: Performed By: #### U RCX #### [facility] [address] [place] [address] Dr. Marvin Reis LYMPHM% 14.0 % Critically low 20.5-60.0 [facility] Comment on above: Performed By: #### U RCX #### [facility] [address] [place] [address] Dr. Marvin Reis MCH 26.5 pg Normal 25.9-34.0 [facility] Comment on above: Performed By: #### U RCX #### [facility] [address] [place] [address] Dr. Marvin Reis MCHC 31.8 g/dl Normal 29.9-35.2 [facility] Comment on above: Performed By: #### U RCX #### [facility] [address] [place] [address] Dr. Marvin Reis MCV 83.4 fL Normal 80.0-94.0 [facility] Comment on above: Performed By: #### U RCX #### [facility] [address] [address] [address] Marvin Reis METAMYELOCYTE # Normal [facility] Comment on above: Performed By: #### U RCX #### [facility] [address] [place] [address] Dr. Marvin Reis METAMYELOCYTE % Normal [facility] Comment on above: Performed By: #### U RCX #### [facility] [address] [address] [address] Marvin Reis MONOM# 0.27 103/ul Critically low 0.30-0.80 [facility] Comment on above: Performed By: #### U RCX #### [facility] [address] [address] [address] Marvin Reis MONOM% 5.0 % Normal 1.7-12.0 [facility] Comment on above: Performed By: #### U RCX #### [facility] [address] [address] [address] Marvin Reis MPV 9.8 fL Normal 9.5-13.5 [facility] Comment on above: Performed By: #### U RCX #### [facility] [address] [place] [address] Dr. Marvin Reis MYELOCYTE # Normal [facility] Comment on above: Performed By: #### U RCX #### [facility] [address] [address] [address] Marvin Reis MYELOCYTE % Normal [facility] Comment on above: Performed By: #### U RCX #### [facility] [address] [place] [address] Dr. Marvin Reis NRBC Normal [facility] Comment on above: Performed By: #### U RCX #### [facility] [address] [place] [address] Dr. Marvin Reis PLT 78 103/ul Critically low 150-450 [facility] Comment on above: Performed By: #### U RCX #### [facility] [address] [address] [address] Marvin Reis RBC 3.85 106/ul Critically low 4.70-6.10 [facility] Comment on above: Performed By: #### U RCX #### [facility] [address] [place] [address] Dr. Marvin Reis RDW 15.8 % Critically high 11.0-15.0 [facility] Comment on above: Performed By: #### U RCX #### [facility] [address] [address] [address] Marvin Reis SEG # 4.37 103/ul Normal 1.40-6.50 [facility] Comment on above: Performed By: #### U RCX #### [facility] [address] [address] [address] Marvin Reis SEG % 81.0 % Critically high 43.0-75.0 [facility] Comment on above: Performed By: #### U RCX #### [facility] [address] [place] [address] Dr. Marvin Reis WBC 5.4 103/ul Normal 4.0-11.0 [facility] Comment on above: Performed By: #### U RCX #### [facility] [address] [place] [address] Dr. Marvin Reis CRPon 09-25-2022 CRP 8.9 mg/dL Critically high <=1.0 [facility] Comment on above: Performed By: #### U AMIC #### [facility] [address] [place] [address] Dr. Marvin Reis LACTATE/LACTIC ACIDon 2021 Lactate [Moles/Vol] 0.9 mmol/L Normal 0.4-1.9 [facility] Comment on above: Performed By: #### U RCX #### [facility] [address] [place] [address] Dr. Marvin Reis PROF 14(COMP METB)on 022 Albumin [Mass/Vol] 2.6 g/dL Critically low 3.4-5.0 [facility] Comment on above: Performed By: #### U AMIC #### [facility] [address] [address] [address] Marvin Reis Albumin/Globulin [Mass ratio] 0.7 {ratio} Normal [facility] Comment on above: Performed By: #### U AMIC #### [facility] [address] [address] [address] Marvin Reis ALP [Catalytic activity/Vol] 75 U/L Normal 46-116 [facility] Comment on above: Performed By: #### U AMIC #### [facility] [address] [address] [address] Marvin Reis ALT [Catalytic activity/Vol] 23 U/L Normal 16-63 [facility] Comment on above: Performed By: #### U AMIC #### [facility] [address] [address] [address] Marvin Reis Anion gap [Moles/Vol] 11.8 mmol/L Normal [facility] Comment on above: Performed By: #### U AMIC #### [facility] [address] [address] [address] Marvin Reis AST [Catalytic activity/Vol] 21 U/L Normal 15-37 [facility] Comment on above: Performed By: #### U AMIC #### [facility] [address] [address] [address] Marvin Reis Bilirubin [Mass/Vol] 0.8 mg/dL Normal 0.2-1.0 [facility] Comment on above: Performed By: #### U AMIC #### [facility] [address] [address] [address] Marvin Reis Calcium [Mass/Vol] 8.7 mg/dL Normal 8.5-10.1 [facility] Comment on above: Performed By: #### U AMIC #### [facility] [address] [address] [address] Marvin Reis Chloride [Moles/Vol] 105 mmol/L Normal 98-107 [facility] Comment on above: Performed By: #### U AMIC #### [facility] [address] [address] [address] Marvin Reis CO2 [Moles/Vol] 26.1 mmol/L Normal 21.0-32.0 [facility] Comment on above: Performed By: #### U AMIC #### [facility] [address] [address] [address] Marvin Reis Creatinine [Mass/Vol] 0.88 mg/dL Normal 0.70-1.30 [facility] Comment on above: Performed By: #### U AMIC #### [facility] [address] [address] [address] Marvin Reis EGFR-AF MOZAMBICAN >60 Normal >=60 [facility] Comment on above: Performed By: #### U AMIC #### [facility] [address] [address] [address] Marvin Reis EGFR-NON AF MOZAMBICAN >60 Normal >=60 [facility] Comment on above: Performed By: #### U AMIC #### [facility] [address] [address] [address] Marvin Reis Globulin (S) [Mass/Vol] 3.7 g/dL Normal [facility] Comment on above: Performed By: #### U AMIC #### [facility] [address] [address] [address] Marvin Reis Glucose [Mass/Vol] 93 mg/dL Normal 74-106 [facility] Comment on above: Performed By: #### U AMIC #### [facility] [address] [address] [address] Marvin Reis Potassium [Moles/Vol] 3.9 mmol/L Normal 3.5-5.1 [facility] Comment on above: Performed By: #### U AMIC #### [facility] [address] [address] [address] Marvin Reis Protein [Mass/Vol] 6.3 g/dL Critically low 6.4-8.2 [facility] Comment on above: Performed By: #### U AMIC #### [facility] [address] [address] [address] Marvin Reis Sodium [Moles/Vol] 139 mmol/L Normal 136-145 [facility] Comment on above: Performed By: #### U AMIC #### [facility] [address] [address] [address] Marvin Reis Urea nitrogen [Mass/Vol] 20.0 mg/dL Critically high 7.0-18.0 [facility] Comment on above: Performed By: #### U AMIC #### [facility] [address] [place] [address] Dr. Marvin Reis Urea nitrogen/Creatinine [Mass ratio] 22.7 mg/mg Normal [facility] Comment on above: Performed By: #### U AMIC #### [facility] [address] [place] [address] Dr. Marvin Reis SED RATE WESTERGRENon 2021 SED RATE 49 mm/hr Critically high <=20 [facility] Comment on above: Performed By: #### U AMIC #### [facility] [address] [place] [address] Dr. Marvin Reis CBC W MANUAL DIFFon 09-24-20 ATYPICAL LYMPH # Normal [facility] Comment on above: Performed By: #### U RCX #### [facility] [address] [place] [address] Dr. Marvin Reis ATYPICAL LYMPH % Normal [facility] Comment on above: Performed By: #### U RCX #### [facility] [address] [place] [address] Dr. Marvin Reis BAND # Normal 0.0-0.3 [facility] Comment on above: Performed By: #### U RCX #### [facility] [address] [place] [address] Dr. Marvin Reis BAND % Normal 0-5 [facility] Comment on above: Performed By: #### U RCX #### [facility] [address] [place] [address] Dr. Marvin Reis BASOM # 0.00 103/ul Normal 0.00-0.10 [facility] Comment on above: Performed By: #### U RCX #### [facility] [address] [address] [address] Marvin Reis BASOM % 0.0 % Critically low 0.2-2.0 [facility] Comment on above: Performed By: #### U RCX #### [facility] [address] [place] [address] Dr. Marvin Reis BLAST # Normal [facility] Comment on above: Performed By: #### U RCX #### [facility] [address] [address] [address] Marvin Reis BLAST % Normal [facility] Comment on above: Performed By: #### U RCX #### [facility] [address] [place] [address] Dr. Marvin Reis CORRECTED WBC Normal 4.0-11.0 [facility] Comment on above: Performed By: #### U RCX #### [facility] [address] [address] [address] Marvin Reis EOS # 0.00 103/ul Normal 0.00-0.70 [facility] Comment on above: Performed By: #### U RCX #### [facility] [address] [place] [address] Dr. Marvin Reis EOS% 0.0 % Critically low 0.9-7.0 [facility] Comment on above: Performed By: #### U RCX #### [facility] [address] [place] [address] Dr. Marvin Reis HCT 33.5 % Critically low 42.0-54.0 [facility] Comment on above: Performed By: #### U RCX #### [facility] [address] [place] [address] Dr. Marvin Reis HGB 10.9 g/dl Critically low 14.0-18.0 [facility] Comment on above: Performed By: #### U RCX #### [facility] [address] [place] [address] Dr. Marvin Reis LYMPHM # 0.52 103/ul Critically low 1.20-3.80 [facility] Comment on above: Performed By: #### U RCX #### [facility] [address] [place] [address] Dr. Marvin Reis LYMPHM% 4.0 % Critically low 20.5-60.0 [facility] Comment on above: Performed By: #### U RCX #### [facility] [address] [place] [address] Dr. Marvin Reis MCH 27.2 pg Normal 25.9-34.0 [facility] Comment on above: Performed By: #### U RCX #### [facility] [address] [place] [address] Dr. Marvin Reis MCHC 32.5 g/dl Normal 29.9-35.2 [facility] Comment on above: Performed By: #### U RCX #### [facility] [address] [address] [address] Marvin Reis MCV 83.5 fL Normal 80.0-94.0 [facility] Comment on above: Performed By: #### U RCX #### [facility] [address] [place] [address] Dr. Marvin Reis METAMYELOCYTE # Normal [facility] Comment on above: Performed By: #### U RCX #### [facility] [address] [place] [address] Dr. Marvin Reis METAMYELOCYTE % Normal [facility] Comment on above: Performed By: #### U RCX #### [facility] [address] [place] [address] Dr. Marvin Reis MONOM# 0.39 103/ul Normal 0.30-0.80 [facility] Comment on above: Performed By: #### U RCX #### [facility] [address] [place] [address] Dr. Marvin Reis MONOM% 3.0 % Normal 1.7-12.0 [facility] Comment on above: Performed By: #### U RCX #### [facility] [address] [place] [address] Dr. Marvin Reis MPV 10.5 fL Normal 9.5-13.5 [facility] Comment on above: Performed By: #### U RCX #### [facility] [address] [place] [address] Dr. Marvin Reis MYELOCYTE # Normal [facility] Comment on above: Performed By: #### U RCX #### [facility] [address] [place] [address] Dr. Marvin Reis MYELOCYTE % Normal [facility] Comment on above: Performed By: #### U RCX #### [facility] [address] [address] [address] Marvin Reis NRBC Normal [facility] Comment on above: Performed By: #### U RCX #### [facility] [address] [address] [address] Marvin Reis PLT 96 103/ul Critically low 150-450 [facility] Comment on above: Performed By: #### U RCX #### [facility] [address] [address] [address] Marvin Reis RBC 4.01 106/ul Critically low 4.70-6.10 [facility] Comment on above: Performed By: #### U RCX #### [facility] [address] [address] [address] Marvin Reis RDW 15.8 % Critically high 11.0-15.0 [facility] Comment on above: Performed By: #### U RCX #### [facility] [address] [address] [address] Marvin Reis SEG # 12.00 103/ul Critically high 1.40-6.50 [facility] Comment on above: Performed By: #### U RCX #### [facility] [address] [address] [address] Marvin Reis SEG % 93.0 % Critically high 43.0-75.0 [facility] Comment on above: Performed By: #### U RCX #### [facility] [address] [address] [address] Marvin Reis WBC 12.9 103/ul Critically high 4.0-11.0 [facility] Comment on above: Performed By: #### U RCX #### [facility] [address] [address] [address] Marvin Reis CRPon 09-24-2022 CRP 8.4 mg/dL Critically high <=1.0 [facility] Comment on above: Performed By: #### U AMIC #### [facility] [address] [address] [address] Marvin Reis LACTATE/LACTIC ACIDon 2021 Lactate [Moles/Vol] 2.2 mmol/L Critically high 0.4-1.9 [facility] Comment on above: Performed By: #### L ACT #### [facility] [address] [address] [address] Marvin Reis PROF 14(COMP METB)on 022 Albumin [Mass/Vol] 2.8 g/dL Critically low 3.4-5.0 [facility] Comment on above: Performed By: #### U AMIC #### [facility] [address] [place] [address] Dr. Marvin Reis Albumin/Globulin [Mass ratio] 0.7 {ratio} Normal [facility] Comment on above: Performed By: #### U AMIC #### [facility] [address] [place] [address] Dr. Marvin Reis ALP [Catalytic activity/Vol] 80 U/L Normal 46-116 [facility] Comment on above: Performed By: #### U AMIC #### [facility] [address] [place] [address] Dr. Marvin Reis ALT [Catalytic activity/Vol] 20 U/L Normal 16-63 [facility] Comment on above: Performed By: #### U AMIC #### [facility] [address] [place] [address] Dr. Marvin Reis Anion gap [Moles/Vol] 12.3 mmol/L Normal [facility] Comment on above: Performed By: #### U AMIC #### [facility] [address] [place] [address] Dr. Marvin Reis AST [Catalytic activity/Vol] 17 U/L Normal 15-37 [facility] Comment on above: Performed By: #### U AMIC #### [facility] [address] [place] [address] Dr. Marvin Reis Bilirubin [Mass/Vol] 1.0 mg/dL Normal 0.2-1.0 [facility] Comment on above: Performed By: #### U AMIC #### [facility] [address] [address] [address] Marvin Reis Calcium [Mass/Vol] 9.0 mg/dL Normal 8.5-10.1 [facility] Comment on above: Performed By: #### U AMIC #### [facility] [address] [address] [address] Marvin Reis Chloride [Moles/Vol] 106 mmol/L Normal 98-107 [facility] Comment on above: Performed By: #### U AMIC #### [facility] [address] [address] [address] Marvin Reis CO2 [Moles/Vol] 25.8 mmol/L Normal 21.0-32.0 [facility] Comment on above: Performed By: #### U AMIC #### [facility] [address] [place] [address] Dr. Marvin Reis Creatinine [Mass/Vol] 1.08 mg/dL Normal 0.70-1.30 [facility] Comment on above: Performed By: #### U AMIC #### [facility] [address] [address] [address] Marvin Reis EGFR-AF MOZAMBICAN >60 Normal >=60 [facility] Comment on above: Performed By: #### U AMIC #### [facility] [address] [address] [address] Marvin Reis EGFR-NON AF MOZAMBICAN >60 Normal >=60 [facility] Comment on above: Performed By: #### U AMIC #### [facility] [address] [address] [address] Marvin Reis Globulin (S) [Mass/Vol] 3.8 g/dL Normal [facility] Comment on above: Performed By: #### U AMIC #### [facility] [address] [address] [address] Marvin Reis Glucose [Mass/Vol] 117 mg/dL Critically high 74-106 [facility] Comment on above: Performed By: #### U AMIC #### [facility] [address] [address] [address] Marvin Reis Potassium [Moles/Vol] 4.1 mmol/L Normal 3.5-5.1 [facility] Comment on above: Performed By: #### U AMIC #### [facility] [address] [address] [address] Marvin Reis Protein [Mass/Vol] 6.6 g/dL Normal 6.4-8.2 [facility] Comment on above: Performed By: #### U AMIC #### [facility] [address] [address] [address] Marvin Reis Sodium [Moles/Vol] 140 mmol/L Normal 136-145 [facility] Comment on above: Performed By: #### U AMIC #### [facility] [address] [place] [address] Dr. Marvin Reis Urea nitrogen [Mass/Vol] 23.0 mg/dL Critically high 7.0-18.0 [facility] Comment on above: Performed By: #### U AMIC #### [facility] [address] [place] [address] Dr. Marvin Reis Urea nitrogen/Creatinine [Mass ratio] 21.3 mg/mg Normal [facility] Comment on above: Performed By: #### U AMIC #### [facility] [address] [place] [address] Dr. Marvin Reis SED RATE [facility] 2021 SED RATE 51 mm/hr Critically high <=20 [facility] Comment on above: Performed By: #### U RCX #### [facility] [address] [place] [address] Dr. Marvin Reis UA RANDOMon 09-24-2022 Bilirubin Ql (U) Negative Normal NEGATIVE [facility] Comment on above: Performed By: #### U AMIC #### [facility] [address] [place] [address] Dr. Marvin Reis Clarity (U) CLEAR Normal CLEAR [facility] Comment on above: Performed By: #### U AMIC #### [facility] [address] [place] [address] Dr. Marvin Reis Color (U) LT. YELLOW Normal YELLOW [facility] Comment on above: Performed By: #### U AMIC #### [facility] [address] [address] [address] Marvin Reis Glucose Ql (U) Negative Normal NEGATIVE [facility] Comment on above: Performed By: #### U AMIC #### [facility] [address] [address] [address] Marvin Reis Hemoglobin Ql (U) LARGE Abnormal NEGATIVE [facility] Comment on above: Performed By: #### U AMIC #### [facility] [address] [address] [address] Marvin Reis Ketones Ql (U) Negative Normal NEGATIVE [facility] Comment on above: Performed By: #### U AMIC #### [facility] [address] [place] [address] Dr. Marvin Reis LEUKOCYTES MODERATE Abnormal NEGATIVE [facility] Comment on above: Performed By: #### U AMIC #### [facility] [address] [place] [address] Dr. Marvin Reis Nitrite Ql (U) Negative Normal NEGATIVE [facility] Comment on above: Performed By: #### U AMIC #### [facility] [address] [address] [address] Marvin Reis pH (U) 5.5 [pH] Normal 5-9 [facility] Comment on above: Performed By: #### U AMIC #### [facility] [address] [address] [address] Marvin Reis SPEC GRAVITY 1.020 Normal 1.005-<=1.025 [facility] Comment on above: Performed By: #### U AMIC #### [facility] [address] [place] [address] Dr. Marvin Reis UA PROTEIN Negative Normal NEGATIVE/ TRACE [facility] Comment on above: Performed By: #### U AMIC #### [facility] [address] [place] [address] Dr. Marvin Reis Urobilinogen Qn (U) 0.2 {Robbie'U}/dL Normal 0.2 - 1. 0 [facility] Comment on above: Performed By: #### U AMIC #### [facility] [address] [place] [address] Dr. Marvin Reis CULTURE URINEon 09-13-2022 CULTURE [...] F Oxacillin >=4 R F Normal [facility] Comment on above: Performed By: #### U RCX #### [facility] [address] [place] [address] Dr. Marvin Reis UA RANDOM W/MICROSCOPICon BACTERIA TRACE Abnormal NONE SEEN [facility] Comment on above: Performed By: #### U AMIC #### [facility] [address] [place] [address] Dr. Marvin Reis Bilirubin Ql (U) Negative Normal NEGATIVE [facility] Comment on above: Performed By: #### U AMIC #### [facility] [address] [place] [address] Dr. Marvin Reis CAST NONE SEEN Normal NONE SEEN [facility] Comment on above: Performed By: #### U AMIC #### [facility] [address] [place] [address] Dr. Marvin Reis Clarity (U) CLEAR Normal CLEAR [facility] Comment on above: Performed By: #### U AMIC #### [facility] [address] [place] [address] Dr. Marvin Reis Color (U) LT. YELLOW Normal YELLOW [facility] Comment on above: Performed By: #### U AMIC #### [facility] [address] [address] [address] Marvin Reis Crystals LM Nom (Urine sed) NONE SEEN Normal NONE SEEN [facility] Comment on above: Performed By: #### U AMIC #### [facility] [address] [address] [address] Marvin Reis Epithelial cells LM Ql (Urine sed) FEW Abnormal NONE SEEN /RARE [facility] Comment on above: Performed By: #### U AMIC #### [facility] [address] [address] [address] Marvin Reis Glucose Ql (U) Negative Normal NEGATIVE [facility] Comment on above: Performed By: #### U AMIC #### [facility] [address] [address] [address] Marvin Reis Hemoglobin Ql (U) Negative Normal NEGATIVE [facility] Comment on above: Performed By: #### U AMIC #### [facility] [address] [address] [address] Marvin Reis Ketones Ql (U) Negative Normal NEGATIVE [facility] Comment on above: Performed By: #### U AMIC #### [facility] [address] [address] [address] Marvin Reis LEUKOCYTES LARGE Abnormal NEGATIVE [facility] Comment on above: Performed By: #### U AMIC #### [facility] [address] [address] [address] Marvin Reis MUCOUS NONE SEEN Normal NONE SEEN [facility] Comment on above: Performed By: #### U AMIC #### [facility] [address] [address] [address] Marvin Reis Nitrite Ql (U) Negative Normal NEGATIVE [facility] Comment on above: Performed By: #### U AMIC #### [facility] [address] [address] [address] Marvin Reis pH (U) 5.5 [pH] Normal 5-9 [facility] Comment on above: Performed By: #### U AMIC #### [facility] [address] [address] [address] Marvin Reis RBC 0-2 Normal 0-2 [facility] Comment on above: Performed By: #### U AMIC #### [facility] [address] [place] [address] Dr. Marvin Reis SPEC GRAVITY 1.025 Normal 1.005-<=1.025 [facility] Comment on above: Performed By: #### U AMIC #### [facility] [address] [place] [address] Dr. Marvin Reis UA PROTEIN Negative Normal NEGATIVE/ TRACE [facility] Comment on above: Performed By: #### U AMIC #### [facility] [address] [place] [address] Dr. Marvin Reis Urobilinogen Qn (U) 0.2 {Robbie'U}/dL Normal 0.2 - 1. 0 [facility] Comment on above: Performed By: #### U AMIC #### [facility] [address] [place] [address] Dr. Marvin Reis WBC 10-20 Abnormal NONE SEEN [facility] Comment on above: Performed By: #### U AMIC #### [facility] [address] [place] [address] Dr. Marvin Reis CULTURE URINEon 08-17-2022 CULTURE [...] Trimethoprim/Sulfamet hoxazole <=20 S F Normal [facility] Comment on above: Performed By: #### U RCX #### [facility] [address] [place] [address] Dr. Marvin Reis UA RANDOM W/MICROSCOPICon 10 -13-2022 BACTERIA MODERATE Abnormal NONE SEEN [facility] Comment on above: Performed By: #### U RCX #### [facility] [address] [address] [address] Marvin Reis Bilirubin Ql (U) Negative Normal NEGATIVE [facility] Comment on above: Performed By: #### U RCX #### [facility] [address] [place] [address] Dr. Marvin Reis CAST NONE SEEN Normal NONE SEEN [facility] Comment on above: Performed By: #### U RCX #### [facility] [address] [address] [address] Marvin Reis Clarity (U) SL CLOUDY Abnormal CLEAR [facility] Comment on above: Performed By: #### U RCX #### [facility] [address] [place] [address] Dr. Marvin Reis Color (U) LT. YELLOW Normal YELLOW [facility] Comment on above: Performed By: #### U RCX #### [facility] [address] [address] [address] Marvin Reis Crystals LM Nom (Urine sed) NONE SEEN Normal NONE SEEN [facility] Comment on above: Performed By: #### U RCX #### [facility] [address] [place] [address] Dr. Marvin Reis Epithelial cells LM Ql (Urine sed) RARE Normal NONE SEEN /RARE [facility] Comment on above: Performed By: #### U RCX #### [facility] [address] [place] [address] Dr. Marvin Reis Glucose Ql (U) Negative Normal NEGATIVE [facility] Comment on above: Performed By: #### U RCX #### [facility] [address] [address] [address] Marvin Reis Hemoglobin Ql (U) SMALL Abnormal NEGATIVE [facility] Comment on above: Performed By: #### U RCX #### [facility] [address] [place] [address] Dr. Marvin Reis Ketones Ql (U) Negative Normal NEGATIVE [facility] Comment on above: Performed By: #### U RCX #### [facility] [address] [address] [address] Marvin Reis LEUKOCYTES MODERATE Abnormal NEGATIVE [facility] Comment on above: Performed By: #### U RCX #### [facility] [address] [place] [address] Dr. Marvin Reis MUCOUS NONE SEEN Normal NONE SEEN [facility] Comment on above: Performed By: #### U RCX #### [facility] [address] [address] [address] Marvin Reis Nitrite Ql (U) Positive Abnormal NEGATIVE [facility] Comment on above: Performed By: #### U RCX #### [facility] [address] [place] [address] Dr. Marvin Reis pH (U) 6.0 [pH] Normal 5-9 [facility] Comment on above: Performed By: #### U RCX #### [facility] [address] [place] [address] Dr. Marvin Reis RBC 0-2 Normal 0-2 [facility] Comment on above: Performed By: #### U RCX #### [facility] [address] [address] [address] Marvin Reis SPEC GRAVITY 1.015 Normal 1.005-<=1.025 [facility] Comment on above: Performed By: #### U RCX #### [facility] [address] [place] [address] Dr. Marvin Reis UA PROTEIN Negative Normal NEGATIVE/ TRACE [facility] Comment on above: Performed By: #### U RCX #### [facility] [address] [place] [address] Dr. Marvin Reis Urobilinogen Qn (U) 0.2 {Robbie'U}/dL Normal 0.2 - 1. 0 [facility] Comment on above: Performed By: #### U RCX #### [facility] [address] [place] [address] Dr. Marvin Reis WBC 10-20 Abnormal NONE SEEN [facility] Comment on above: Performed By: #### U RCX #### [facility] [address] [place] [address] Dr. Marvin Reis CULTURE URINEon 08-02-2022 CULTURE [...] Trimethoprim/Sulfamet hoxazole <=20 S F Normal [facility] Comment on above: Performed By: #### U RCX #### [facility] [address] [place] [address] Dr. Marvin Reis UA RANDOM W/MICROSCOPICon BACTERIA MODERATE Abnormal NONE SEEN [facility] Comment on above: Performed By: #### U AMIC #### [facility] [address] [place] [address] Dr. Marvin Reis Bilirubin Ql (U) Negative Normal NEGATIVE [facility] Comment on above: Performed By: #### U AMIC #### [facility] [address] [place] [address] Dr. Marvin Reis CAST NONE SEEN Normal NONE SEEN [facility] Comment on above: Performed By: #### U AMIC #### [facility] [address] [place] [address] Dr. Marvin Reis Clarity (U) SL CLOUDY Abnormal CLEAR [facility] Comment on above: Performed By: #### U AMIC #### [facility] [address] [place] [address] Dr. Marvin Reis Color (U) LT. YELLOW Normal YELLOW [facility] Comment on above: Performed By: #### U AMIC #### [facility] [address] [place] [address] Dr. Marvin Reis Crystals LM Nom (Urine sed) NONE SEEN Normal NONE SEEN [facility] Comment on above: Performed By: #### U AMIC #### [facility] [address] [address] [address] Marvin Reis Epithelial cells LM Ql (Urine sed) NONE SEEN Normal NONE SEEN /RARE [facility] Comment on above: Performed By: #### U AMIC #### [facility] [address] [address] [address] Marvin Reis Glucose Ql (U) Negative Normal NEGATIVE [facility] Comment on above: Performed By: #### U AMIC #### [facility] [address] [address] [address] Marvin Reis Hemoglobin Ql (U) TRACE-INTACT Abnormal NEGATIVE [facility] Comment on above: Performed By: #### U AMIC #### [facility] [address] [place] [address] Dr. Marvin Reis Ketones Ql (U) Negative Normal NEGATIVE [facility] Comment on above: Performed By: #### U AMIC #### [facility] [address] [address] [address] Marvin Reis LEUKOCYTES MODERATE Abnormal NEGATIVE [facility] Comment on above: Performed By: #### U AMIC #### [facility] [address] [address] [address] Marvin Reis MUCOUS NONE SEEN Normal NONE SEEN [facility] Comment on above: Performed By: #### U AMIC #### [facility] [address] [address] [address] Marvin Reis Nitrite Ql (U) Positive Abnormal NEGATIVE [facility] Comment on above: Performed By: #### U AMIC #### [facility] [address] [address] [address] Marvin Reis pH (U) 6.0 [pH] Normal 5-9 [facility] Comment on above: Performed By: #### U AMIC #### [facility] [address] [address] [address] Marvin Reis RBC 0-2 Normal 0-2 [facility] Comment on above: Performed By: #### U AMIC #### [facility] [address] [place] [address] Dr. Marvin Reis SPEC GRAVITY 1.015 Normal 1.005-<=1.025 [facility] Comment on above: Performed By: #### U AMIC #### [facility] [address] [place] [address] Dr. Marvin Reis UA PROTEIN Negative Normal NEGATIVE/ TRACE [facility] Comment on above: Performed By: #### U AMIC #### [facility] [address] [place] [address] Dr. Marvin Reis Urobilinogen Qn (U) 0.2 {Robbie'U}/dL Normal 0.2 - 1. 0 [facility] Comment on above: Performed By: #### U AMIC #### [facility] [address] [place] [address] Dr. Marvin Reis WBC 20-50 Abnormal NONE SEEN [facility] Comment on above: Performed By: #### U AMIC #### [facility] [address] [place] [address] Dr. Marvin Reis CULTURE URINEon 06-27-2022 CULTURE [...] F Oxacillin >=4 R F Normal [facility] Comment on above: Performed By: #### U AMIC #### [facility] [address] [place] [address] Dr. Marvin Reis UA RANDOM W/MICROSCOPICon BACTERIA LARGE Abnormal NONE SEEN [facility] Comment on above: Performed By: #### U RCX #### [facility] [address] [address] [address] Marvin Reis Bilirubin Ql (U) Negative Normal NEGATIVE [facility] Comment on above: Performed By: #### U RCX #### [facility] [address] [address] [address] Marvin Reis CAST NONE SEEN Normal NONE SEEN [facility] Comment on above: Performed By: #### U RCX #### [facility] [address] [address] [address] Marvin Reis Clarity (U) CLEAR Normal CLEAR [facility] Comment on above: Performed By: #### U RCX #### [facility] [address] [place] [address] Dr. Marvin Reis Color (U) LT. YELLOW Normal YELLOW [facility] Comment on above: Performed By: #### U RCX #### [facility] [address] [place] [address] Dr. Marvin Reis Crystals LM Nom (Urine sed) NONE SEEN Normal NONE SEEN [facility] Comment on above: Performed By: #### U RCX #### [facility] [address] [address] [address] Marvin Reis Epithelial cells LM Ql (Urine sed) FEW Abnormal NONE SEEN /RARE [facility] Comment on above: Performed By: #### U RCX #### [facility] [address] [place] [address] Dr. Marvin Reis Glucose Ql (U) Negative Normal NEGATIVE [facility] Comment on above: Performed By: #### U RCX #### [facility] [address] [address] [address] Marvin Reis Hemoglobin Ql (U) TRACE-INTACT Abnormal NEGATIVE [facility] Comment on above: Performed By: #### U RCX #### [facility] [address] [place] [address] Dr. Marvin Reis Ketones Ql (U) Negative Normal NEGATIVE [facility] Comment on above: Performed By: #### U RCX #### [facility] [address] [address] [address] Marvin Reis LEUKOCYTES LARGE Abnormal NEGATIVE [facility] Comment on above: Performed By: #### U RCX #### [facility] [address] [place] [address] Dr. Marvin Reis MUCOUS NONE SEEN Normal NONE SEEN [facility] Comment on above: Performed By: #### U RCX #### [facility] [address] [place] [address] Dr. Marvin Reis Nitrite Ql (U) Positive Abnormal NEGATIVE [facility] Comment on above: Performed By: #### U RCX #### [facility] [address] [place] [address] Dr. Marvin Reis pH (U) 5.5 [pH] Normal 5-9 [facility] Comment on above: Performed By: #### U RCX #### [facility] [address] [place] [address] Dr. Marvin Reis RBC 2-5 Abnormal 0-2 [facility] Comment on above: Performed By: #### U RCX #### [facility] [address] [place] [address] Dr. Marvin Reis SPEC GRAVITY 1.015 Normal 1.005-<=1.025 [facility] Comment on above: Performed By: #### U RCX #### [facility] [address] [place] [address] Dr. Marvin Reis UA PROTEIN Negative Normal NEGATIVE/ TRACE [facility] Comment on above: Performed By: #### U RCX #### [facility] [address] [place] [address] Dr. Marvin Reis Urobilinogen Qn (U) 0.2 {Robbie'U}/dL Normal 0.2 - 1. 0 [facility] Comment on above: Performed By: #### U RCX #### [facility] [address] [place] [address] Dr. Marvin Reis WBC (U) [#/Vol] /uL Abnormal NONE SEEN [facility] Comment on above: Performed By: #### U RCX #### [facility] [address] [place] [address] Dr. Marvin Reis CULTURE URINEon 05-27-2022 CULTURE [...] F Oxacillin >=4 R F Normal [facility] Comment on above: Performed By: #### U RCX #### [facility] [address] [place] [address] Dr. Marvin Reis UA RANDOM W/MICROSCOPICon BACTERIA MODERATE Abnormal NONE SEEN [facility] Comment on above: Performed By: #### U RCX #### [facility] [address] [place] [address] Dr. Marvin Reis Bilirubin Ql (U) Negative Normal NEGATIVE [facility] Comment on above: Performed By: #### U RCX #### [facility] [address] [place] [address] Dr. Marvin Reis CAST NONE SEEN Normal NONE SEEN [facility] Comment on above: Performed By: #### U RCX #### [facility] [address] [place] [address] Dr. Marvin Reis Clarity (U) SL CLOUDY Abnormal CLEAR [facility] Comment on above: Performed By: #### U RCX #### [facility] [address] [place] [address] Dr. Marvin Reis Color (U) LT. YELLOW Normal YELLOW [facility] Comment on above: Performed By: #### U RCX #### [facility] [address] [place] [address] Dr. Marvin Reis Crystals LM Nom (Urine sed) NONE SEEN Normal NONE SEEN [facility] Comment on above: Performed By: #### U RCX #### [facility] [address] [address] [address] Marvin Reis Epithelial cells LM Ql (Urine sed) FEW Abnormal NONE SEEN /RARE [facility] Comment on above: Performed By: #### U RCX #### [facility] [address] [address] [address] Marvin Reis Glucose Ql (U) Negative Normal NEGATIVE [facility] Comment on above: Performed By: #### U RCX #### [facility] [address] [address] [address] Marvin Reis Hemoglobin Ql (U) SMALL Abnormal NEGATIVE [facility] Comment on above: Performed By: #### U RCX #### [facility] [address] [place] [address] Dr. Marvin Reis Ketones Ql (U) Negative Normal NEGATIVE [facility] Comment on above: Performed By: #### U RCX #### [facility] [address] [address] [address] Marvin Reis LEUKOCYTES LARGE Abnormal NEGATIVE [facility] Comment on above: Performed By: #### U RCX #### [facility] [address] [address] [address] Marvin Reis MUCOUS TRACE Abnormal NONE SEEN [facility] Comment on above: Performed By: #### U RCX #### [facility] [address] [address] [address] Marvin Reis Nitrite Ql (U) Negative Normal NEGATIVE [facility] Comment on above: Performed By: #### U RCX #### [facility] [address] [address] [address] Marvin Reis pH (U) 6.0 [pH] Normal 5-9 [facility] Comment on above: Performed By: #### U RCX #### [facility] [address] [address] [address] Marvin Reis RBC 2-5 Abnormal 0-2 [facility] Comment on above: Performed By: #### U RCX #### [facility] [address] [address] [address] Marvin Reis SPEC GRAVITY 1.010 Normal 1.005-<=1.025 [facility] Comment on above: Performed By: #### U RCX #### [facility] [address] [address] [address] Marvin Reis UA PROTEIN Negative Normal NEGATIVE/ TRACE [facility] Comment on above: Performed By: #### U RCX #### [facility] [address] [address] [address] Marvin Reis Urobilinogen Qn (U) 0.2 {Robbie'U}/dL Normal 0.2 - 1. 0 [facility] Comment on above: Performed By: #### U RCX #### [facility] [address] [place] [address] Dr. Marvin Reis WBC 50-75 Abnormal NONE SEEN [facility] Comment on above: Performed By: #### U RCX #### [facility] [address] [place] [address] Dr. Marvin Reis CULTURE URINEon 04-18-2022 CULTURE [...] F Oxacillin >=4 R F Normal [facility] Comment on above: Performed By: #### U RCX #### [facility] [address] [address] [address] Marvin Reis UA RANDOM W/MICROSCOPICon BACTERIA TRACE Abnormal NONE SEEN [facility] Comment on above: Performed By: #### U AMIC #### [facility] [address] [address] [address] Marvin Reis Bilirubin Ql (U) Negative Normal NEGATIVE [facility] Comment on above: Performed By: #### U AMIC #### [facility] [address] [address] [address] Marvin Reis CAST NONE SEEN Normal NONE SEEN [facility] Comment on above: Performed By: #### U AMIC #### [facility] [address] [address] [address] Marvin Reis Clarity (U) CLEAR Normal CLEAR [facility] Comment on above: Performed By: #### U AMIC #### [facility] [address] [address] [address] Marvin Reis Color (U) LT. YELLOW Normal YELLOW [facility] Comment on above: Performed By: #### U AMIC #### [facility] [address] [address] [address] Marvin Reis Crystals LM Nom (Urine sed) NONE SEEN Normal NONE SEEN [facility] Comment on above: Performed By: #### U AMIC #### [facility] [address] [address] [address] Marvin Reis Epithelial cells LM Ql (Urine sed) FEW Abnormal NONE SEEN /RARE [facility] Comment on above: Performed By: #### U AMIC #### [facility] [address] [address] [address] Marvin Reis Glucose Ql (U) Negative Normal NEGATIVE [facility] Comment on above: Performed By: #### U AMIC #### [facility] [address] [address] [address] Marvin Reis Hemoglobin Ql (U) TRACE-INTACT Abnormal NEGATIVE [facility] Comment on above: Performed By: #### U AMIC #### [facility] [address] [address] [address] Marvin Reis Ketones Ql (U) Negative Normal NEGATIVE [facility] Comment on above: Performed By: #### U AMIC #### [facility] [address] [place] [address] Dr. Marvin Reis LEUKOCYTES SMALL Abnormal NEGATIVE [facility] Comment on above: Performed By: #### U AMIC #### [facility] [address] [place] [address] Dr. Marvin Reis MUCOUS NONE SEEN Normal NONE SEEN [facility] Comment on above: Performed By: #### U AMIC #### [facility] [address] [place] [address] Dr. Marvin Reis Nitrite Ql (U) Negative Normal NEGATIVE [facility] Comment on above: Performed By: #### U AMIC #### [facility] [address] [place] [address] Dr. Marvin Reis pH (U) 6.0 [pH] Normal 5-9 [facility] Comment on above: Performed By: #### U AMIC #### [facility] [address] [place] [address] Dr. Marvin Reis RBC 0-2 Normal 0-2 [facility] Comment on above: Performed By: #### U AMIC #### [facility] [address] [place] [address] Dr. Marvin Reis SPEC GRAVITY 1.010 Normal 1.005-<=1.025 [facility] Comment on above: Performed By: #### U AMIC #### [facility] [address] [place] [address] Dr. Marvin Reis UA PROTEIN Negative Normal NEGATIVE/ TRACE [facility] Comment on above: Performed By: #### U AMIC #### [facility] [address] [place] [address] Dr. Marvin Reis Urobilinogen Qn (U) 0.2 {Robbie'U}/dL Normal 0.2 - 1. 0 [facility] Comment on above: Performed By: #### U AMIC #### [facility] [address] [place] [address] Dr. Marvin Reis WBC 2-5 Abnormal NONE SEEN [facility] Comment on above: Performed By: #### U AMIC #### [facility] [address] [place] [address] Dr. Marvin Reis CULTURE URINEon 03-27-2022 CULTURE [...] Trimethoprim/Sulfamet hoxazole >=320 R F Normal [facility] Comment on above: Performed By: #### U RCX #### [facility] [address] [place] [address] Dr. Marvin Reis UA RANDOM W/MICROSCOPICon BACTERIA TRACE Abnormal NONE SEEN [facility] Comment on above: Performed By: #### U RCX #### [facility] [address] [place] [address] Dr. Marvin Reis Bilirubin Ql (U) Negative Normal NEGATIVE [facility] Comment on above: Performed By: #### U RCX #### [facility] [address] [place] [address] Dr. Marvin Reis CAST NONE SEEN Normal NONE SEEN [facility] Comment on above: Performed By: #### U RCX #### [facility] [address] [place] [address] Dr. Marvin Reis Clarity (U) CLEAR Normal CLEAR [facility] Comment on above: Performed By: #### U RCX #### [facility] [address] [address] [address] Marvin Reis Color (U) LT. YELLOW Normal YELLOW [facility] Comment on above: Performed By: #### U RCX #### [facility] [address] [place] [address] Dr. Marvin Reis Crystals LM Nom (Urine sed) NONE SEEN Normal NONE SEEN [facility] Comment on above: Performed By: #### U RCX #### [facility] [address] [address] [address] Marvin Reis Epithelial cells LM Ql (Urine sed) FEW Abnormal NONE SEEN /RARE [facility] Comment on above: Performed By: #### U RCX #### [facility] [address] [place] [address] Dr. Marvin Reis Glucose Ql (U) Negative Normal NEGATIVE [facility] Comment on above: Performed By: #### U RCX #### [facility] [address] [place] [address] Dr. Marvin Reis Hemoglobin Ql (U) SMALL Abnormal NEGATIVE [facility] Comment on above: Performed By: #### U RCX #### [facility] [address] [place] [address] Dr. Marvin Reis Ketones Ql (U) Negative Normal NEGATIVE [facility] Comment on above: Performed By: #### U RCX #### [facility] [address] [place] [address] Dr. Marvin Reis LEUKOCYTES MODERATE Abnormal NEGATIVE [facility] Comment on above: Performed By: #### U RCX #### [facility] [address] [place] [address] Dr. Marvin Reis MUCOUS NONE SEEN Normal NONE SEEN [facility] Comment on above: Performed By: #### U RCX #### [facility] [address] [place] [address] Dr. Marvin Reis Nitrite Ql (U) Negative Normal NEGATIVE [facility] Comment on above: Performed By: #### U RCX #### [facility] [address] [place] [address] Dr. Marvin Reis pH (U) 5.5 [pH] Normal 5-9 [facility] Comment on above: Performed By: #### U RCX #### [facility] [address] [place] [address] Dr. Marvin Reis RBC NONE SEEN Abnormal 0-2 [facility] Comment on above: Performed By: #### U RCX #### [facility] [address] [place] [address] Dr. Marvin eRis SPEC GRAVITY 1.015 Normal 1.005-<=1.025 [facility] Comment on above: Performed By: #### U RCX #### [facility] [address] [place] [address] Dr. Marvin Reis UA PROTEIN Negative Normal NEGATIVE/ TRACE [facility] Comment on above: Performed By: #### U RCX #### [facility] [address] [place] [address] Dr. Marvin Reis Urobilinogen Qn (U) 0.2 {Robbie'U}/dL Normal 0.2 - 1. 0 [facility] Comment on above: Performed By: #### U RCX #### [facility] [address] [place] [address] Dr. Marvin Reis WBC 20-50 Abnormal NONE SEEN [facility] Comment on above: Performed By: #### U RCX #### [facility] [address] [place] [address] Dr. Marvin Reis YEAST PRESENT Abnormal NONE SEEN [facility] Comment on above: Performed By: #### U RCX #### [facility] [address] [place] [address] Dr. Marvin Reis CULTURE URINEon 03-18-2022 CULTURE URINE Culture Observations : No growth Normal [facility] Comment on above: Performed By: #### U RCX #### [facility] [address] [place] [address] Dr. Marvin Reis UA RANDOM W/MICROSCOPICon BACTERIA NONE SEEN Normal NONE SEEN [facility] Comment on above: Performed By: #### U AMIC #### [facility] [address] [address] [address] Marvin Reis Bilirubin Ql (U) Negative Normal NEGATIVE [facility] Comment on above: Performed By: #### U AMIC #### [facility] [address] [address] [address] Marvin Reis CAST NONE SEEN Normal NONE SEEN [facility] Comment on above: Performed By: #### U AMIC #### [facility] [address] [place] [address] Dr. Marvin Reis Clarity (U) CLOUDY Abnormal CLEAR [facility] Comment on above: Performed By: #### U AMIC #### [facility] [address] [address] [address] Marvin Reis Color (U) LT. YELLOW Normal YELLOW [facility] Comment on above: Performed By: #### U AMIC #### [facility] [address] [place] [address] Dr. Marvin Reis Crystals LM Nom (Urine sed) NONE SEEN Normal NONE SEEN [facility] Comment on above: Performed By: #### U AMIC #### [facility] [address] [place] [address] Dr. Marvin Reis Epithelial cells LM Ql (Urine sed) RARE Normal NONE SEEN /RARE [facility] Comment on above: Performed By: #### U AMIC #### [facility] [address] [place] [address] Dr. Marvin Reis Glucose Ql (U) Negative Normal NEGATIVE [facility] Comment on above: Performed By: #### U AMIC #### [facility] [address] [place] [address] Dr. Marvin Reis Hemoglobin Ql (U) TRACE-INTACT Abnormal NEGATIVE [facility] Comment on above: Performed By: #### U AMIC #### [facility] [address] [place] [address] Dr. Marvin Reis Ketones Ql (U) Negative Normal NEGATIVE [facility] Comment on above: Performed By: #### U AMIC #### [facility] [address] [place] [address] Dr. Marvin Reis LEUKOCYTES MODERATE Abnormal NEGATIVE [facility] Comment on above: Performed By: #### U AMIC #### [facility] [address] [address] [address] Marvin Reis MUCOUS NONE SEEN Normal NONE SEEN [facility] Comment on above: Performed By: #### U AMIC #### [facility] [address] [address] [address] Marvin Reis Nitrite Ql (U) Negative Normal NEGATIVE [facility] Comment on above: Performed By: #### U AMIC #### [facility] [address] [address] [address] Marvin Reis pH (U) 6.0 [pH] Normal 5-9 [facility] Comment on above: Performed By: #### U AMIC #### [facility] [address] [place] [address] Dr. Marvin Reis RBC NONE SEEN Abnormal 0-2 [facility] Comment on above: Performed By: #### U AMIC #### [facility] [address] [place] [address] Dr. Marvin Reis SPEC GRAVITY 1.015 Normal 1.005-<=1.025 [facility] Comment on above: Performed By: #### U AMIC #### [facility] [address] [address] [address] Marvin Reis UA PROTEIN Negative Normal NEGATIVE/ TRACE [facility] Comment on above: Performed By: #### U AMIC #### [facility] [address] [address] [address] Marvin Reis Urobilinogen Qn (U) 0.2 {Robbie'U}/dL Normal 0.2 - 1. 0 [facility] Comment on above: Performed By: #### U AMIC #### [facility] [address] [place] [address] Dr. Marvin Reis WBC 10-20 Abnormal NONE SEEN [facility] Comment on above: Performed By: #### U AMIC #### [facility] [address] [place] [address] Dr. Marvin Reis Coding Summary.on 06-21-2020 Coding Summary. CODING DATE: 06/21/2020 FINAL [facility] STATUS: PAYOR: Worker's Compensation ADMIT DX: [...] Hopper CphT Date Saved: 06/21/2020 12:01 pm [facility] PT - Assessmentson 0 PT - Assessments [id number]# 1.00CD:127 [facility] PT - Orderson 06-20-2020 PT - Orders [id number]# 1.00CD:127 [facility] PT - Workers Compon 06-20-20 20 PT - Workers Comp [id number]# 1.00CD:127 [facility] Encounters Encounter Date Encounter Type Care Provider Facility Start: 03-10-2023 End: 03-11-2023 ambulatory [facility] Start: 03-03-2023 End: 03-03-[address] [...] Facility:[facility] Payers Date Payer Category Payer Medicare [id number] 1961 Unknown [id number] 1960 Unknown [id number] 2.16.84 0.1.361262.3.579.2.593 1958 Unknown [id number] 2.16.84 0.1.153688.3.579.2.593 1958 Unknown [id number] 2.16.84 0.1.284121.3.579.2.593 1958 Unknown [id number] 2.16.84 0.1.289145.3.579.2.593 1958 Unknown [id number] 2.16.84 0.1.285409.3.579.2.593 1958 Unknown [id number] 2.16.84 0.1.588046.3.579.2.593 1958 Unknown [id number] 2.16.84 0.1.594869.3.579.2.593 1958 Unknown [id number] 2.16.84 0.1.902402.3.579.2.593 1958 Unknown [id number] 2.16.84 0.1.641153.3.579.2.593 1958 Unknown [id number] 2.16.84 0.1.880489.3.579.2.593 1958 Unknown [id number] 2.16.84 0.1.010154.3.579.2.593 1958 Unknown [id number] 2.16.84 0.1.552292.3.579.2.593 1958 Unknown [id number] 2.16.84 0.1.170138.3.579.2.593 1958 Unknown [id number] 2.16.84 0.1.574364.3.579.2.593 1958 Unknown [id number] 2.16.84 0.1.853696.3.579.2.593 1958 Unknown [id number] 2.16.84 0.1.732428.3.579.2.593 1958 Unknown [id number] 2.16.84 0.1.523852.3.579.2.593 1958 Unknown [id number] 2.16.84 0.1.015114.3.579.2.593 1958 Unknown [id number] 2.16.84 0.1.881655.3.579.2.593 Summary Purpose Family History No Family History [...] and content) DATE CREATED AUTHOR 09/19/2020 [facility] DATE CREATED AUTHOR AUTHOR'S ORGANIZ ATION 03/06/2023 [facility] DATE CREATED AUTHOR AUTHOR'S ORGANIZ ATION 03/11/2023 [facility] DATE CREATED AUTHOR AUTHOR'S ORGANIZ ATION 06/07/2023 [facility] FOR RECORDS PERTAINING TO PATIENTS WHO [...] BE BASED ON THE PRIMARY CLINICAL RECORDS. [employer] [facility] provides no warranty or guarantee of the accuracy or completeness of information in this document.
[2024-04-16 12:57] LABS: Bilirubin Urine NEGATIVE (NEGATIVE); Blood Urine MODERATE (NEGATIVE); Clarity Urine CLEAR (CLEAR); Color Urine LT. YELLOW (YELLOW); Glucose Urine UA NEGATIVE (NEGATIVE); Ketones Urine NEGATIVE (NEGATIVE); Leukocyte Esterase Urine LARGE (NEGATIVE); Nitrite Urine NEGATIVE (NEGATIVE); Protein Urine 30 mg/dL (NEG/TRACE); Specific Gravity Urine 1.015 (1.005-1.025); Urobilinogen Urine 0.2 EU/dL (0.2-1.0)
[2024-04-16 13:27] LABS: WBC Urine >100 #/HPF (NONE SEEN)
[2024-04-16 13:28] LABS: Bacteria Urine MODERATE #/HPF (NONE SEEN); Mucus Urine NONE SEEN (NONE SEEN); Squamous Epithelial Cell Urine FEW #/LPF (NONE/RARE); Urine Culture Indicated ALREADY ORDERED
== END 2024-04-16 12:04 | disposition home or self-care (01) ==
LOC: LAB 12:03
PROVIDERS: PCP Family Medicine; Visit Provider Family Medicine
DX: N31.9 Neuromuscular dysfunction of bladder, unspecified (principal); N39.0 Urinary tract infection, site not specified
CPT/HCPCS: 81001; 87086

== ENCOUNTER 2024-04-23 13:28 | Outpatient (OUT) | payer OTHER, SELFPAY ==
--- OUTSIDE RECORDS SUMMARY | 2024-04-23 13:44 | XMS_ITS | CCD ---
Author Organization [facility] Care Team Providers Care Rn Social Work Name Role Phone HOY ., DR WEBBER [...] Unavailable HOY ., DR WEBBER Admherman Unavailable [place], DR MAGY [employer] Unavailable HOY ., [...] source) ceFAZolin Drug Allergy 04-21-20 13 [facility] (1 source) Cilastatin / Imipenem Drug Allergy 04-21-20 13 [facility] (1 source) Readi-Cat Drug allergy (disorder) 04-21-20 13 [facility] (1 source) ceFAZolin; Translations: [CEFAZOLIN] Drug Allergy 12-01-19 13 [facility] Repository (1 source) Cephalexin; Translations: [CEPHALEXIN MONOHYDRATE] Drug Allergy 08-03-20 09 [facility] Repository (1 source) Promazine; Translations: [PROMAZINE] Drug Allergy 12-01-19 13 [facility] Repository (1 source) Sulfamethoxazole / Trimethoprim; Translations: [SULFAMETHOXAZOLE-TR IMETHOPRIM] Drug Allergy 03-10-20 23 [facility] Repository (1 source) IODINATED CONTRAST MEDIA; Translations: [IODINATED CONTRAST MEDIA] Propensity to adverse reactions to drug (disorder) 12-01-19 13 [facility] Repository Problems Active Problems Problem Classification [...] RESISTANT TO ALL B-LACTAM DRUGS. PERFORMED BY: [place] [address] PATHOLOGIST ROLLER INSPECTOR AND MENDER MARLA VEGA M.D. [facility] Comment on above: Performed By: #### A MAI LAYNE #### [place] [id number] [place] Gram Stainon 06-03-2023 Microscopic observation Gram stain Nom (Unsp spec) Gram Stain Result No Bacteria Seen PERFORMED BY: [place] [address] PATHOLOGIST ROLLER INSPECTOR AND MENDER MARLA VEGA M.D. [facility] Comment on above: Performed By: #### A MAI LAYNE #### [place] [id number] [place] CULTURE URINEon 03-06-2023 CULTURE URINE Isolate [...] F Levofloxacin 2 S F Normal The Comment on above: Performed By: #### U RCX #### Laboratory [address] [place] [address] Dr. Marvin Reis UA RANDOM W/MICROSCOPICon BACTERIA SMALL Abnormal NONE SEEN The Comment on above: Performed By: #### U AMIC #### Laboratory [address] [place] [address] Dr. Marvin Reis Bilirubin Ql (U) Negative Normal NEGATIVE The [facility] Comment on above: Performed By: #### U AMIC #### Laboratory [address] [place] [address] Dr. Marvin Reis CAST NONE SEEN Normal NONE SEEN [facility] Comment on above: Performed By: #### U AMIC #### Laboratory [address] [place] [address] Dr. Marvin Reis Clarity (U) CLEAR Normal CLEAR The Comment on above: Performed By: #### U AMIC #### Laboratory [address] [place] [address] Dr. Marvin Reis Color (U) LT. YELLOW Normal YELLOW The Comment on above: Performed By: #### U AMIC #### Laboratory [address] [address] [address] Marvin Reis Crystals LM Nom (Urine sed) NONE SEEN Normal NONE SEEN [facility] Comment on above: Performed By: #### U AMIC #### Laboratory [address] [place] [address] Dr. Marvin Reis Epithelial cells LM Ql (Urine sed) RARE Normal NONE SEEN /RARE The Comment on above: Performed By: #### U AMIC #### Laboratory [address] [address] [address] Marvin Reis Glucose Ql (U) Negative Normal NEGATIVE The [facility] Comment on above: Performed By: #### U AMIC #### Laboratory [address] [place] [address] Dr. Marvin Reis Hemoglobin Ql (U) Negative Normal NEGATIVE The [facility] Comment on above: Performed By: #### U AMIC #### Laboratory [address] [place] [address] Dr. Marvin Reis Ketones Ql (U) Negative Normal NEGATIVE The [facility] Comment on above: Performed By: #### U AMIC #### Laboratory [address] [place] [address] Dr. Marvin Reis LEUKOCYTES SMALL Abnormal NEGATIVE The Comment on above: Performed By: #### U AMIC #### Laboratory [address] [place] [address] Dr. Marvin Reis MUCOUS NONE SEEN Normal NONE SEEN [facility] Comment on above: Performed By: #### U AMIC #### Laboratory [address] [place] [address] Dr. Marvin Reis Nitrite Ql (U) Negative Normal NEGATIVE The [facility] Comment on above: Performed By: #### U AMIC #### Laboratory [address] [place] [address] Dr. Marvin Reis pH (U) 6.0 [pH] Normal 5-9 The Comment on above: Performed By: #### U AMIC #### Laboratory [address] [place] [address] Dr. Marvin Reis RBC 0-2 Normal 0-2 The Comment on above: Performed By: #### U AMIC #### Laboratory [address] [place] [address] Dr. Marvin Reis SPEC GRAVITY 1.010 Normal 1.005-<=1.025 [facility] Comment on above: Performed By: #### U AMIC #### Laboratory [address] [address] [address] Marvin Reis UA PROTEIN Negative Normal NEGATIVE/ TRACE [facility] Comment on above: Performed By: #### U AMIC #### Laboratory [address] [place] [address] Dr. Marvin Reis Urobilinogen Qn (U) 0.2 {Robbie'U}/dL Normal 0.2 - 1. 0 [facility] Comment on above: Performed By: #### U AMIC #### Laboratory [address] [place] [address] Dr. Marvin Reis WBC 5-10 Abnormal NONE SEEN The Comment on above: Performed By: #### U AMIC #### Laboratory [address] [place] [address] Dr. Marvin Reis CULTURE URINEon 02-13-2023 CULTURE [...] F Levofloxacin 2 S F Normal The Comment on above: Performed By: #### U RCX #### Laboratory [address] [place] [address] Dr. Marvin Reis UA RANDOM W/MICROSCOPICon BACTERIA MODERATE Abnormal NONE SEEN The Comment on above: Performed By: #### U AMIC #### Laboratory [address] [place] [address] Dr. Marvin Reis Bilirubin Ql (U) Negative Normal NEGATIVE [facility] Comment on above: Performed By: #### U AMIC #### Laboratory [address] [place] [address] Dr. Marvin Reis CAST NONE SEEN Normal NONE SEEN The Comment on above: Performed By: #### U AMIC #### Laboratory [address] [place] [address] Dr. Marvin Reis Clarity (U) CLEAR Normal CLEAR The Comment on above: Performed By: #### U AMIC #### Laboratory [address] [place] [address] Dr. Marvin Reis Color (U) LT. YELLOW Normal YELLOW The Comment on above: Performed By: #### U AMIC #### Laboratory [address] [place] [address] Dr. Marvin Reis Crystals LM Nom (Urine sed) NONE SEEN Normal NONE SEEN The Comment on above: Performed By: #### U AMIC #### Laboratory [address] [place] [address] Dr. Marvin Reis Epithelial cells LM Ql (Urine sed) MODERATE Abnormal NONE SEEN /RARE The Comment on above: Performed By: #### U AMIC #### Laboratory [address] [place] [address] Dr. Marvin Reis Glucose Ql (U) Negative Normal NEGATIVE The [facility] Comment on above: Performed By: #### U AMIC #### Laboratory [address] [place] [address] Dr. Marvin Reis Hemoglobin Ql (U) SMALL Abnormal NEGATIVE [facility] Comment on above: Performed By: #### U AMIC #### Laboratory [address] [address] [address] Marvin Reis Ketones Ql (U) Negative Normal NEGATIVE The [facility] Comment on above: Performed By: #### U AMIC #### Laboratory [address] [address] [address] Marvin Reis LEUKOCYTES LARGE Abnormal NEGATIVE The Comment on above: Performed By: #### U AMIC #### Laboratory [address] [address] [address] Marvin Reis MUCOUS NONE SEEN Normal NONE SEEN The Comment on above: Performed By: #### U AMIC #### Laboratory [address] [place] [address] Dr. Marvin Resi Nitrite Ql (U) Positive Abnormal NEGATIVE The [facility] Comment on above: Performed By: #### U AMIC #### Laboratory [address] [address] [address] Marvin Reis pH (U) 5.5 [pH] Normal 5-9 The Comment on above: Performed By: #### U AMIC #### Laboratory [address] [address] [address] Marvin Reis RBC 5-10 Abnormal 0-2 [facility] Comment on above: Performed By: #### U AMIC #### Laboratory [address] [address] [address] Marvin Reis SPEC GRAVITY 1.015 Normal 1.005-<=1.025 [facility] Comment on above: Performed By: #### U AMIC #### Laboratory [address] [address] [address] Marvin Reis UA PROTEIN Negative Normal NEGATIVE/ TRACE [facility] Comment on above: Performed By: #### U AMIC #### Laboratory [address] [place] [address] Dr. Marvin Reis Urobilinogen Qn (U) 0.2 {Robbie'U}/dL Normal 0.2 - 1. 0 [facility] Comment on above: Performed By: #### U AMIC #### Laboratory [address] [place] [address] Dr. Marvin Reis WBC 50-75 Abnormal NONE SEEN The Comment on above: Performed By: #### U AMIC #### Laboratory [id number] Marvin Reis CULTURE URINEon 01-23-2023 CULTURE [...] Trimethoprim/Sulfamet hoxazole <=10 S F Normal The Comment on above: Performed By: #### U AMIC #### Laboratory [address] [place] [address] Dr. Marvin Reis UA RANDOM W/MICROSCOPICon BACTERIA TRACE Abnormal NONE SEEN The Comment on above: Performed By: #### U AMIC #### Laboratory [address] [place] [address] Dr. Marvin Reis Bilirubin Ql (U) Negative Normal NEGATIVE [facility] Comment on above: Performed By: #### U AMIC #### Laboratory [address] [address] [address] Marvin Reis CAST NONE SEEN Normal NONE SEEN The Comment on above: Performed By: #### U AMIC #### Laboratory [address] [address] [address] Marvin Reis Clarity (U) SL CLOUDY Abnormal CLEAR The Comment on above: Performed By: #### U AMIC #### Laboratory [address] [address] [address] Marvin Reis Color (U) LT. YELLOW Normal YELLOW The Comment on above: Performed By: #### U AMIC #### Laboratory [address] [place] [address] Dr. Marvin Reis Crystals LM Nom (Urine sed) NONE SEEN Normal NONE SEEN [facility] Comment on above: Performed By: #### U AMIC #### Laboratory [address] [place] [address] Dr. Marvin Reis Epithelial cells LM Ql (Urine sed) NONE SEEN Normal NONE SEEN /RARE The Comment on above: Performed By: #### U AMIC #### Laboratory [address] [place] [address] Dr. Marvin Reis Glucose Ql (U) Negative Normal NEGATIVE The [facility] Comment on above: Performed By: #### U AMIC #### Laboratory [address] [address] [address] Marvin Reis Hemoglobin Ql (U) Negative Normal NEGATIVE [facility] Comment on above: Performed By: #### U AMIC #### Laboratory [address] [address] [address] Marvin Reis Ketones Ql (U) Negative Normal NEGATIVE The [facility] Comment on above: Performed By: #### U AMIC #### Laboratory [address] [place] [address] Dr. Marvin Reis LEUKOCYTES TRACE Abnormal NEGATIVE The Comment on above: Performed By: #### U AMIC #### Laboratory [address] [address] [address] Marvin Reis MUCOUS NONE SEEN Normal NONE SEEN The Comment on above: Performed By: #### U AMIC #### Laboratory [address] [place] [address] Dr. Marvin Reis Nitrite Ql (U) Negative Normal NEGATIVE The [facility] Comment on above: Performed By: #### U AMIC #### Laboratory [address] [place] [address] Dr. Marvin Reis pH (U) 6.0 [pH] Normal 5-9 The Comment on above: Performed By: #### U AMIC #### Laboratory [address] [place] [address] Dr. Marvin Reis RBC NONE SEEN Abnormal 0-2 [facility] Comment on above: Performed By: #### U AMIC #### Laboratory [address] [place] [address] Dr. Marvin Reis SPEC GRAVITY 1.020 Normal 1.005-<=1.025 [facility] Comment on above: Performed By: #### U AMIC #### Laboratory [address] [place] [address] Dr. Marvin Reis UA PROTEIN Negative Normal NEGATIVE/ TRACE [facility] Comment on above: Performed By: #### U AMIC #### Laboratory [address] [place] [address] Dr. Marvin Reis Urobilinogen Qn (U) 0.2 {Robbie'U}/dL Normal 0.2 - 1. 0 The Comment on above: Performed By: #### U AMIC #### Laboratory [address] [place] [address] Dr. Marvin Reis WBC 10-20 Abnormal NONE SEEN The Comment on above: Performed By: #### U AMIC #### Laboratory [address] [place] [address] Dr. Marvin Reis CULTURE URINEon 01-07-2023 CULTURE URINE Isolate 1 Dawna albicans 10,000 cfu/mL of Normal The Comment on above: Performed By: #### U RCX #### Laboratory [address] [address] [address] Marvin Reis UA RANDOM W/MICROSCOPICon BACTERIA TRACE Abnormal NONE SEEN The Comment on above: Performed By: #### U AMIC #### Laboratory [address] [address] [address] Marvin Reis Bilirubin Ql (U) Negative Normal NEGATIVE [facility] Comment on above: Performed By: #### U AMIC #### Laboratory [address] [address] [address] Marvin Reis CA OX CRYSTALS RARE Normal The [facility] Comment on above: Performed By: #### U AMIC #### Laboratory [address] [address] [address] Marvin Reis CAST NONE SEEN Normal NONE SEEN The Comment on above: Performed By: #### U AMIC #### Laboratory [address] [address] [address] Marvin Reis Clarity (U) CLEAR Normal CLEAR The Comment on above: Performed By: #### U AMIC #### Laboratory [address] [address] [address] Marvin Reis Color (U) LT. YELLOW Normal YELLOW The Comment on above: Performed By: #### U AMIC #### Laboratory [address] [address] [address] Marvin Reis Crystals LM Nom (Urine sed) SEEN Abnormal NONE SEEN The Comment on above: Performed By: #### U AMIC #### Laboratory [address] [address] [address] Marvin Reis Epithelial cells LM Ql (Urine sed) FEW Abnormal NONE SEEN /RARE The Comment on above: Performed By: #### U AMIC #### Laboratory [address] [address] [address] Marvin Reis Glucose Ql (U) Negative Normal NEGATIVE The [facility] Comment on above: Performed By: #### U AMIC #### Laboratory [address] [address] [address] Marvin Reis Hemoglobin Ql (U) Negative Normal NEGATIVE [facility] Comment on above: Performed By: #### U AMIC #### Laboratory [address] [address] [address] Marvin Reis Ketones Ql (U) Negative Normal NEGATIVE The [facility] Comment on above: Performed By: #### U AMIC #### Laboratory [address] [address] [address] Marvin Reis LEUKOCYTES SMALL Abnormal NEGATIVE The Comment on above: Performed By: #### U AMIC #### Laboratory [address] [place] [address] Dr. Marvin Reis MUCOUS NONE SEEN Normal NONE SEEN The Comment on above: Performed By: #### U AMIC #### Laboratory [address] [place] [address] Dr. Marvin Reis Nitrite Ql (U) Negative Normal NEGATIVE The [facility] Comment on above: Performed By: #### U AMIC #### Laboratory [address] [place] [address] Dr. Marvin Reis pH (U) 5.5 [pH] Normal 5-9 [facility] Comment on above: Performed By: #### U AMIC #### Laboratory [address] [place] [address] Dr. Marvin Reis RBC 0-2 Normal 0-2 The Comment on above: Performed By: #### U AMIC #### Laboratory [address] [place] [address] Dr. Marvin Reis SPEC GRAVITY 1.015 Normal 1.005-<=1.025 [facility] Comment on above: Performed By: #### U AMIC #### Laboratory [address] [place] [address] Dr. Marvin Reis UA PROTEIN Negative Normal NEGATIVE/ TRACE [facility] Comment on above: Performed By: #### U AMIC #### Laboratory [address] [place] [address] Dr. Marvin Reis Urobilinogen Qn (U) 0.2 {Robbie'U}/dL Normal 0.2 - 1. 0 The Comment on above: Performed By: #### U AMIC #### Laboratory [address] [place] [address] Dr. Marvin Reis WBC 50-75 Abnormal NONE SEEN The Comment on above: Performed By: #### U AMIC #### Laboratory [address] [place] [address] Dr. Marvin Reis YEAST PRESENT Abnormal NONE SEEN The Comment on above: Performed By: #### U AMIC #### Laboratory [address] [place] [address] Dr. Marvin Reis CULTURE URINEon 12-25-2022 CULTURE [...] Trimethoprim/Sulfamet hoxazole >=320 R F Normal The Comment on above: Performed By: #### U RCX #### Laboratory [address] [place] [address] Dr. Marvin Reis UA RANDOM W/MICROSCOPICon BACTERIA NONE SEEN Normal NONE SEEN The Comment on above: Performed By: #### U AMIC #### Laboratory [address] [place] [address] Dr. Marvin Reis Bilirubin Ql (U) Negative Normal NEGATIVE [facility] Comment on above: Performed By: #### U AMIC #### Laboratory [address] [place] [address] Dr. Marvin Reis CAST NONE SEEN Normal NONE SEEN The Comment on above: Performed By: #### U AMIC #### Laboratory [address] [place] [address] Dr. Marvin Reis Clarity (U) CLEAR Normal CLEAR The Comment on above: Performed By: #### U AMIC #### Laboratory [address] [address] [address] Marvin Reis Color (U) LT. YELLOW Normal YELLOW The Comment on above: Performed By: #### U AMIC #### Laboratory [address] [place] [address] Dr. Marvin Reis Crystals LM Nom (Urine sed) NONE SEEN Normal NONE SEEN [facility] Comment on above: Performed By: #### U AMIC #### Laboratory [address] [place] [address] Dr. Marvin Reis Epithelial cells LM Ql (Urine sed) RARE Normal NONE SEEN /RARE The Comment on above: Performed By: #### U AMIC #### Laboratory [address] [place] [address] Dr. Marvin Reis Glucose Ql (U) Negative Normal NEGATIVE The [facility] Comment on above: Performed By: #### U AMIC #### Laboratory [address] [place] [address] Dr. Marvin Reis Hemoglobin Ql (U) Negative Normal NEGATIVE [facility] Comment on above: Performed By: #### U AMIC #### Laboratory [address] [address] [address] Marvin Reis Ketones Ql (U) Negative Normal NEGATIVE The [facility] Comment on above: Performed By: #### U AMIC #### Laboratory [address] [place] [address] Dr. Marvin Reis LEUKOCYTES MODERATE Abnormal NEGATIVE The Comment on above: Performed By: #### U AMIC #### Laboratory [address] [place] [address] Dr. Marvin Reis MUCOUS NONE SEEN Normal NONE SEEN [facility] Comment on above: Performed By: #### U AMIC #### Laboratory [address] [place] [address] Dr. Marvin Reis Nitrite Ql (U) Negative Normal NEGATIVE The [facility] Comment on above: Performed By: #### U AMIC #### Laboratory [address] [place] [address] Dr. Marvin Reis pH (U) 5.5 [pH] Normal 5-9 The Comment on above: Performed By: #### U AMIC #### Laboratory [address] [place] [address] Dr. Marvin Reis RBC NONE SEEN Abnormal 0-2 [facility] Comment on above: Performed By: #### U AMIC #### Laboratory [address] [place] [address] Dr. Marvin Reis SPEC GRAVITY 1.015 Normal 1.005-<=1.025 [facility] Comment on above: Performed By: #### U AMIC #### Laboratory [address] [place] [address] Dr. Marvin Reis UA PROTEIN Negative Normal NEGATIVE/ TRACE [facility] Comment on above: Performed By: #### U AMIC #### Laboratory [address] [place] [address] Dr. Marvin Reis Urobilinogen Qn (U) 0.2 {Robbie'U}/dL Normal 0.2 - 1. 0 [facility] Comment on above: Performed By: #### U AMIC #### Laboratory [address] [place] [address] Dr. Marvin Reis WBC 10-20 Abnormal NONE SEEN The Comment on above: Performed By: #### U AMIC #### Laboratory [address] [place] [address] Dr. Marvin Reis CULTURE URINEon 12-05-2022 CULTURE [...] Trimethoprim/Sulfamet hoxazole <=20 S F Normal The Comment on above: Performed By: #### U RCX #### Laboratory [address] [place] [address] Dr. Marvin Reis CREATININEon 12-03-2022 Creatinine [Mass/Vol] 0.88 mg/dL Normal 0.70-1.30 [facility] Comment on above: Performed By: #### U RCX #### Laboratory [address] [place] [address] Dr. Marvin Reis EGFR-AF GHANAIAN >60 Normal >=60 [facility] Comment on above: Performed By: #### U RCX #### Laboratory [address] [place] [address] Dr. Marvin Reis EGFR-NON AF GHANAIAN >60 Normal >=60 [facility] Comment on above: Performed By: #### U RCX #### Laboratory [address] [place] [address] ABDOMEN WO/W CONon [...] ELENO PARKER Date: 2022-12-03 14:51 Normal The UA RANDOM W/MICROSCOPICon BACTERIA TRACE Abnormal NONE SEEN The Comment on above: Performed By: #### U RCX #### Laboratory [address] [place] [address] Dr. Marvin Reis Bilirubin Ql (U) Negative Normal NEGATIVE [facility] Comment on above: Performed By: #### U RCX #### Laboratory [address] [place] [address] Dr. Marvin Reis CAST NONE SEEN Normal NONE SEEN The Comment on above: Performed By: #### U RCX #### Laboratory [address] [place] [address] Dr. Marvin Reis Clarity (U) CLEAR Normal CLEAR The Comment on above: Performed By: #### U RCX #### Laboratory [address] [place] [address] Dr. Marvin Reis Color (U) LT. YELLOW Normal YELLOW The Comment on above: Performed By: #### U RCX #### Laboratory [address] [place] [address] Dr. Marvin Reis Crystals LM Nom (Urine sed) NONE SEEN Normal NONE SEEN [facility] Comment on above: Performed By: #### U RCX #### Laboratory [address] [place] [address] Dr. Marvin Reis Epithelial cells LM Ql (Urine sed) RARE Normal NONE SEEN /RARE The Comment on above: Performed By: #### U RCX #### Laboratory [address] [address] [address] Marvin Reis Glucose Ql (U) Negative Normal NEGATIVE [facility] Comment on above: Performed By: #### U RCX #### Laboratory [address] [address] [address] Marvin Reis Hemoglobin Ql (U) TRACE-INTACT Abnormal NEGATIVE [facility] Comment on above: Performed By: #### U RCX #### Laboratory [address] [address] [address] Marvin Reis Ketones Ql (U) Negative Normal NEGATIVE [facility] Comment on above: Performed By: #### U RCX #### Laboratory [address] [place] [address] Dr. Marvin Reis LEUKOCYTES TRACE Abnormal NEGATIVE [facility] Comment on above: Performed By: #### U RCX #### Laboratory [address] [address] [address] Marvin Reis MUCOUS TRACE Abnormal NONE SEEN [facility] Comment on above: Performed By: #### U RCX #### Laboratory [address] [place] [address] Dr. Marvin Reis Nitrite Ql (U) Negative Normal NEGATIVE [facility] Comment on above: Performed By: #### U RCX #### Laboratory [address] [address] [address] Marvin Reis pH (U) 5.0 [pH] Normal 5-9 [facility] Comment on above: Performed By: #### U RCX #### Laboratory [address] [address] [address] Marvin Reis RBC 0-2 Normal 0-2 [facility] Comment on above: Performed By: #### U RCX #### Laboratory [address] [place] [address] Dr. aMrvin Reis SPEC GRAVITY 1.010 Normal 1.005-<=1.025 [facility] Comment on above: Performed By: #### U RCX #### Laboratory [address] [place], [place] [address] Dr. Marvin Reis UA PROTEIN TRACE Normal NEGATIVE/ TRACE [facility] Comment on above: Performed By: #### U RCX #### Laboratory [address] [place], [place] [address] Dr. Marvin Reis Urobilinogen Qn (U) 0.2 {Robbie'U}/dL Normal 0.2 - 1. 0 The Comment on above: Performed By: #### U RCX #### Laboratory [address] [address] [address] Marvin Reis WBC 2-5 Abnormal NONE SEEN The Comment on above: Performed By: #### U RCX #### Laboratory [address] ABD/PELVIS WO CONon [...] MAGY COMER Date: 2022-11-20 14:51 Normal The CULTURE URINEon 11-11-2022 CULTURE URINE Culture Observations : GUSTABO TO FOLLOW. Isolate 1 Enterobacter aerogenes >100,000 cfu/mL of Normal The Comment on above: Performed By: #### U RCX #### Laboratory [address] [place] [address] Dr. Marvin Reis UA RANDOM W/MICROSCOPICon BACTERIA SMALL Abnormal NONE SEEN The Comment on above: Performed By: #### U AMIC #### Laboratory [address] [place] [address] Dr. Marvin Reis Bilirubin Ql (U) Negative Normal NEGATIVE [facility] Comment on above: Performed By: #### U AMIC #### Laboratory [address] [place] [address] Dr. Marvin Reis CAST NONE SEEN Normal NONE SEEN The Comment on above: Performed By: #### U AMIC #### Laboratory [address] [place] [address] Dr. Marvin Reis Clarity (U) CLOUDY Abnormal CLEAR The Comment on above: Performed By: #### U AMIC #### Laboratory [address] [place] [address] Dr. Marvin Reis Color (U) LT. YELLOW Normal YELLOW The Comment on above: Performed By: #### U AMIC #### Laboratory [address] [address] [address] Marvin Reis Crystals LM Nom (Urine sed) NONE SEEN Normal NONE SEEN [facility] Comment on above: Performed By: #### U AMIC #### Laboratory [address] [address] [address] Marvin Reis Epithelial cells LM Ql (Urine sed) NONE SEEN Normal NONE SEEN /RARE The Comment on above: Performed By: #### U AMIC #### Laboratory [address] [address] [address] Marvin Reis Glucose Ql (U) Negative Normal NEGATIVE [facility] Comment on above: Performed By: #### U AMIC #### Laboratory [address] [place] [address] Dr. Marvin Reis Hemoglobin Ql (U) TRACE-INTACT Abnormal NEGATIVE [facility] Comment on above: Performed By: #### U AMIC #### Laboratory [address] [address] [address] Marvin Reis Ketones Ql (U) Negative Normal NEGATIVE [facility] Comment on above: Performed By: #### U AMIC #### Laboratory [address] [address] [address] Marvin Reis LEUKOCYTES LARGE Abnormal NEGATIVE [facility] Comment on above: Performed By: #### U AMIC #### Laboratory [address] [address] [address] Marvin Reis MUCOUS NONE SEEN Normal NONE SEEN [facility] Comment on above: Performed By: #### U AMIC #### Laboratory [address] [place] [address] Dr. Marvin Reis Nitrite Ql (U) Positive Abnormal NEGATIVE [facility] Comment on above: Performed By: #### U AMIC #### Laboratory [address] [place] [address] Dr. Marvin Reis pH (U) 5.5 [pH] Normal 5-9 The Comment on above: Performed By: #### U AMIC #### Laboratory [address] [place] [address] Dr. Marvin Reis RBC 0-2 Normal 0-2 The Comment on above: Performed By: #### U AMIC #### Laboratory [address] [place] [address] Dr. Marvin Reis SPEC GRAVITY 1.015 Normal 1.005-<=1.025 [facility] Comment on above: Performed By: #### U AMIC #### Laboratory [address] [place] [address] Dr. Marvin Reis UA PROTEIN Negative Normal NEGATIVE/ TRACE [facility] Comment on above: Performed By: #### U AMIC #### Laboratory [address] [place] [address] Dr. Marvin Reis Urobilinogen Qn (U) 0.2 {Robbie'U}/dL Normal 0.2 - 1. 0 [facility] Comment on above: Performed By: #### U AMIC #### Laboratory [address] [place] [address] Dr. Marvin Reis WBC 10-20 Abnormal NONE SEEN [facility] Comment on above: Performed By: #### U AMIC #### Laboratory [address] [place] [address] Dr. Marvin Reis CULTURE URINEon 10-24-2022 CULTURE [...] Trimethoprim/Sulfamet hoxazole <=20 S F Normal The Comment on above: Performed By: #### U RCX #### Laboratory [address] [place] [address] Dr. Marvin Reis UA RANDOM W/MICROSCOPICon BACTERIA LARGE Abnormal NONE SEEN The Comment on above: Performed By: #### U AMIC #### Laboratory [address] [address] [address] Marvin Reis Bilirubin Ql (U) Negative Normal NEGATIVE [facility] Comment on above: Performed By: #### U AMIC #### Laboratory [address] [address] [address] Marvin Reis CAST NONE SEEN Normal NONE SEEN The Comment on above: Performed By: #### U AMIC #### Laboratory [address] [address] [address] Marvin Reis Clarity (U) SL CLOUDY Abnormal CLEAR The Comment on above: Performed By: #### U AMIC #### Laboratory [address] [address] [address] Marvin Reis Color (U) YELLOW Normal YELLOW The Comment on above: Performed By: #### U AMIC #### Laboratory [address] [address] [address] Marvin Reis Crystals LM Nom (Urine sed) NONE SEEN Normal NONE SEEN The Comment on above: Performed By: #### U AMIC #### Laboratory [address] [address] [address] Marvin Reis Epithelial cells LM Ql (Urine sed) FEW Abnormal NONE SEEN /RARE The Comment on above: Performed By: #### U AMIC #### Laboratory [address] [address] [address] Marvin Reis Glucose Ql (U) Negative Normal NEGATIVE [facility] Comment on above: Performed By: #### U AMIC #### Laboratory [address] [address] [address] Marvin Reis Hemoglobin Ql (U) TRACE-INTACT Abnormal NEGATIVE [facility] Comment on above: Performed By: #### U AMIC #### Laboratory [address] [address] [address] Marvin Reis Ketones Ql (U) Negative Normal NEGATIVE [facility] Comment on above: Performed By: #### U AMIC #### Laboratory [address] [address] [address] Marvin Reis LEUKOCYTES LARGE Abnormal NEGATIVE The Comment on above: Performed By: #### U AMIC #### Laboratory [address] [address] [address] Marvin Reis MUCOUS NONE SEEN Normal NONE SEEN The Comment on above: Performed By: #### U AMIC #### Laboratory [address] [address] [address] Marvin Reis Nitrite Ql (U) Negative Normal NEGATIVE [facility] Comment on above: Performed By: #### U AMIC #### Laboratory [address] [address] [address] Marvin Reis pH (U) 5.0 [pH] Normal 5-9 [facility] Comment on above: Performed By: #### U AMIC #### Laboratory [address] [address] [address] Marvin Reis RBC 5-10 Abnormal 0-2 The Comment on above: Performed By: #### U AMIC #### Laboratory [address] [address] [address] Marvin Reis SPEC GRAVITY 1.010 Normal 1.005-<=1.025 [facility] Comment on above: Performed By: #### U AMIC #### Laboratory [address] [place] [address] Dr. Marvin Reis UA PROTEIN Negative Normal NEGATIVE/ TRACE [facility] Comment on above: Performed By: #### U AMIC #### Laboratory [address] [place] [address] Dr. Marvin Reis Urobilinogen Qn (U) 0.2 {Robbie'U}/dL Normal 0.2 - 1. 0 [facility] Comment on above: Performed By: #### U AMIC #### Laboratory [address] [address] [address] Marvin Reis WBC 50-75 Abnormal NONE SEEN The Comment on above: Performed By: #### U AMIC #### Laboratory [address] [address] [address] Marvin Reis CULTURE URINEon 10-01-2022 CULTURE URINE Culture Observations : NO GROWTH. Normal The Comment on above: Performed By: #### U AMIC #### Laboratory [address] [address] [address] Marvin Reis UA RANDOM W/MICROSCOPICon BACTERIA SMALL Abnormal NONE SEEN The Comment on above: Performed By: #### U AMIC #### Laboratory [address] [address] [address] Marvin Reis Bilirubin Ql (U) Negative Normal NEGATIVE [facility] Comment on above: Performed By: #### U AMIC #### Laboratory [address] [address] [address] Marvin Reis CAST SEEN Abnormal NONE SEEN [facility] Comment on above: Performed By: #### U AMIC #### Laboratory [address] [address] [address] Marvin Reis Clarity (U) CLEAR Normal CLEAR The Comment on above: Performed By: #### U AMIC #### Laboratory [address] [address] [address] Marvin Reis Color (U) LT. YELLOW Normal YELLOW The Comment on above: Performed By: #### U AMIC #### Laboratory [address] [address] [address] Marvin Reis Crystals LM Nom (Urine sed) NONE SEEN Normal NONE SEEN The Comment on above: Performed By: #### U AMIC #### Laboratory [address] [address] [address] Marvin Reis Epithelial cells LM Ql (Urine sed) FEW Abnormal NONE SEEN /RARE The Comment on above: Performed By: #### U AMIC #### Laboratory [address] [place] [address] Dr. Marvin Reis Glucose Ql (U) Negative Normal NEGATIVE [facility] Comment on above: Performed By: #### U AMIC #### Laboratory [address] [place] [address] Dr. Marvin Reis Hemoglobin Ql (U) TRACE-INTACT Abnormal NEGATIVE [facility] Comment on above: Performed By: #### U AMIC #### Laboratory [address] [address] [address] Marvin Reis HYALINE CAST FEW Normal [facility] Comment on above: Performed By: #### U AMIC #### Laboratory [address] [place] [address] Dr. Marvin Reis Ketones Ql (U) Negative Normal NEGATIVE [facility] Comment on above: Performed By: #### U AMIC #### Laboratory [address] [place] [address] Dr. Marvin Reis LEUKOCYTES MODERATE Abnormal NEGATIVE [facility] Comment on above: Performed By: #### U AMIC #### Laboratory [address] [place] [address] Dr. Marvin Reis MUCOUS SMALL Abnormal NONE SEEN The Comment on above: Performed By: #### U AMIC #### Laboratory [address] [place] [address] Dr. Marvin Reis Nitrite Ql (U) Negative Normal NEGATIVE [facility] Comment on above: Performed By: #### U AMIC #### Laboratory [address] [place] [address] Dr. Marvin Reis pH (U) 5.5 [pH] Normal 5-9 [facility] Comment on above: Performed By: #### U AMIC #### Laboratory [address] [place] [address] Dr. Marvin Reis RBC 0-2 Normal 0-2 [facility] Comment on above: Performed By: #### U AMIC #### Laboratory [address] [place] [address] Dr. Marvin Reis SPEC GRAVITY 1.020 Normal 1.005-<=1.025 [facility] Comment on above: Performed By: #### U AMIC #### Laboratory [address] [place] [address] Dr. Marvin Reis UA PROTEIN Negative Normal NEGATIVE/ TRACE [facility] Comment on above: Performed By: #### U AMIC #### Laboratory [address] [address] [address] Marvin Reis Urobilinogen Qn (U) 0.2 {Robbie'U}/dL Normal 0.2 - 1. 0 [facility] Comment on above: Performed By: #### U AMIC #### Laboratory [address] [address] [address] Marvin Reis WBC 10-20 Abnormal NONE SEEN The Comment on above: Performed By: #### U AMIC #### Laboratory [address] [address] [address] Marvin Reis CULTURE URINEon 09-26-2022 CULTURE [...] Trimethoprim/Sulfamet hoxazole <=20 S F Normal The Comment on above: Performed By: #### U RCX #### Laboratory [address] [place] [address] Dr. Marvin Reis CBC W MANUAL DIFFon 09-25-20 ANISOCYTOSIS SLIGHT Normal The Comment on above: Performed By: #### U RCX #### Laboratory [address] [place] [address] Dr. Marvin Reis ATYPICAL LYMPH # Normal [facility] Comment on above: Performed By: #### U RCX #### Laboratory [address] [place] [address] Dr. Marvin Reis ATYPICAL LYMPH % Normal [facility] Comment on above: Performed By: #### U RCX #### Laboratory [address] [place] [address] Dr. Marvin Reis BAND # Normal 0.0-0.3 [facility] Comment on above: Performed By: #### U RCX #### Laboratory [address] [place] [address] Dr. Marvin Reis BAND % Normal 0-5 [facility] Comment on above: Performed By: #### U RCX #### Laboratory [address] [place] [address] Dr. Marvin Reis BASOM # 0.00 103/ul Normal 0.00-0.10 [facility] Comment on above: Performed By: #### U RCX #### Laboratory [address] [place] [address] Dr. Marvin Reis BASOM % 0.0 % Critically low 0.2-2.0 [facility] Comment on above: Performed By: #### U RCX #### Laboratory [address] [place] [address] Dr. Marvin Reis BLAST # Normal [facility] Comment on above: Performed By: #### U RCX #### Laboratory [address] [place] [address] Dr. Marvin Reis BLAST % Normal [facility] Comment on above: Performed By: #### U RCX #### Laboratory [address] [place] [address] Dr. Marvin Reis CORRECTED WBC Normal 4.0-11.0 [facility] Comment on above: Performed By: #### U RCX #### Laboratory [address] [place] [address] Dr. Marvin Reis EOS # 0.00 103/ul Normal 0.00-0.70 [facility] Comment on above: Performed By: #### U RCX #### Laboratory [address] [place] [address] Dr. Marvin Reis EOS% 0.0 % Critically low 0.9-7.0 [facility] Comment on above: Performed By: #### U RCX #### Laboratory [address] [place] [address] Dr. Marvin Reis HCT 32.1 % Critically low 42.0-54.0 [facility] Comment on above: Performed By: #### U RCX #### Laboratory [address] [address] [address] Marvin Reis HGB 10.2 g/dl Critically low 14.0-18.0 [facility] Comment on above: Performed By: #### U RCX #### Laboratory [address] [address] [address] Marvin Reis LYMPHM # 0.76 103/ul Critically low 1.20-3.80 [facility] Comment on above: Performed By: #### U RCX #### Laboratory [address] [place] [address] Dr. Marvin Reis LYMPHM% 14.0 % Critically low 20.5-60.0 [facility] Comment on above: Performed By: #### U RCX #### Laboratory [address] [place] [address] Dr. Marvin Reis MCH 26.5 pg Normal 25.9-34.0 [facility] Comment on above: Performed By: #### U RCX #### Laboratory [address] [place] [address] Dr. Marvin Reis MCHC 31.8 g/dl Normal 29.9-35.2 [facility] Comment on above: Performed By: #### U RCX #### Laboratory [address] [place] [address] Dr. Marvin Reis MCV 83.4 fL Normal 80.0-94.0 [facility] Comment on above: Performed By: #### U RCX #### Laboratory [address] [address] [address] Marvin Reis METAMYELOCYTE # Normal [facility] Comment on above: Performed By: #### U RCX #### Laboratory [address] [place] [address] Dr. Marvin Reis METAMYELOCYTE % Normal [facility] Comment on above: Performed By: #### U RCX #### Laboratory [address] [address] [address] Marvin Reis MONOM# 0.27 103/ul Critically low 0.30-0.80 [facility] Comment on above: Performed By: #### U RCX #### Laboratory [address] [address] [address] Marvin Reis MONOM% 5.0 % Normal 1.7-12.0 [facility] Comment on above: Performed By: #### U RCX #### Laboratory [address] [address] [address] Marvin Reis MPV 9.8 fL Normal 9.5-13.5 [facility] Comment on above: Performed By: #### U RCX #### Laboratory [address] [place] [address] Dr. Marvin Reis MYELOCYTE # Normal The Comment on above: Performed By: #### U RCX #### Laboratory [address] [address] [address] Marvin Reis MYELOCYTE % Normal The Comment on above: Performed By: #### U RCX #### Laboratory [address] [place] [address] Dr. Marvin Reis NRBC Normal [facility] Comment on above: Performed By: #### U RCX #### Laboratory [address] [place] [address] Dr. Marvin Reis PLT 78 103/ul Critically low 150-450 [facility] Comment on above: Performed By: #### U RCX #### Laboratory [address] [address] [address] Marvin Reis RBC 3.85 106/ul Critically low 4.70-6.10 [facility] Comment on above: Performed By: #### U RCX #### Laboratory [address] [place] [address] Dr. Marvin Reis RDW 15.8 % Critically high 11.0-15.0 [facility] Comment on above: Performed By: #### U RCX #### Laboratory [address] [address] [address] Marvin Reis SEG # 4.37 103/ul Normal 1.40-6.50 [facility] Comment on above: Performed By: #### U RCX #### Laboratory [address] [address] [address] Marvin Reis SEG % 81.0 % Critically high 43.0-75.0 [facility] Comment on above: Performed By: #### U RCX #### Laboratory [address] [place] [address] Dr. Marvin Reis WBC 5.4 103/ul Normal 4.0-11.0 [facility] Comment on above: Performed By: #### U RCX #### Laboratory [address] [place] [address] Dr. Marvin Reis CRPon 09-25-2022 CRP 8.9 mg/dL Critically high <=1.0 [facility] Comment on above: Performed By: #### U AMIC #### Laboratory [address] [place] [address] Dr. Marvin Reis LACTATE/LACTIC ACIDon 2021 Lactate [Moles/Vol] 0.9 mmol/L Normal 0.4-1.9 [facility] Comment on above: Performed By: #### U RCX #### Laboratory [address] [place] [address] Dr. Marvin Reis PROF 14(COMP METB)on 022 Albumin [Mass/Vol] 2.6 g/dL Critically low 3.4-5.0 [facility] Comment on above: Performed By: #### U AMIC #### Laboratory [address] [address] [address] Marvin Reis Albumin/Globulin [Mass ratio] 0.7 {ratio} Normal [facility] Comment on above: Performed By: #### U AMIC #### Laboratory [address] [address] [address] Marvin Reis ALP [Catalytic activity/Vol] 75 U/L Normal 46-116 [facility] Comment on above: Performed By: #### U AMIC #### Laboratory [address] [address] [address] Marvin Reis ALT [Catalytic activity/Vol] 23 U/L Normal 16-63 [facility] Comment on above: Performed By: #### U AMIC #### Laboratory [address] [address] [address] Marvin Reis Anion gap [Moles/Vol] 11.8 mmol/L Normal [facility] Comment on above: Performed By: #### U AMIC #### Laboratory [address] [address] [address] Marvin Reis AST [Catalytic activity/Vol] 21 U/L Normal 15-37 [facility] Comment on above: Performed By: #### U AMIC #### Laboratory [address] [address] [address] Marvin Reis Bilirubin [Mass/Vol] 0.8 mg/dL Normal 0.2-1.0 [facility] Comment on above: Performed By: #### U AMIC #### Laboratory [address] [address] [address] Marvin Reis Calcium [Mass/Vol] 8.7 mg/dL Normal 8.5-10.1 [facility] Comment on above: Performed By: #### U AMIC #### Laboratory [address] [address] [address] Marvin Reis Chloride [Moles/Vol] 105 mmol/L Normal 98-107 The Comment on above: Performed By: #### U AMIC #### Laboratory [address] [address] [address] Marvin Reis CO2 [Moles/Vol] 26.1 mmol/L Normal 21.0-32.0 [facility] Comment on above: Performed By: #### U AMIC #### Laboratory [address] [address] [address] Marvin Reis Creatinine [Mass/Vol] 0.88 mg/dL Normal 0.70-1.30 [facility] Comment on above: Performed By: #### U AMIC #### Laboratory [address] [address] [address] Marvin Reis EGFR-AF GHANAIAN >60 Normal >=60 [facility] Comment on above: Performed By: #### U AMIC #### Laboratory [address] [address] [address] Marvin Reis EGFR-NON AF GHANAIAN >60 Normal >=60 [facility] Comment on above: Performed By: #### U AMIC #### Laboratory [address] [address] [address] Marvin Reis Globulin (S) [Mass/Vol] 3.7 g/dL Normal [facility] Comment on above: Performed By: #### U AMIC #### Laboratory [address] [address] [address] Marvin Reis Glucose [Mass/Vol] 93 mg/dL Normal 74-106 [facility] Comment on above: Performed By: #### U AMIC #### Laboratory [address] [address] [address] Marvin Reis Potassium [Moles/Vol] 3.9 mmol/L Normal 3.5-5.1 [facility] Comment on above: Performed By: #### U AMIC #### Laboratory [address] [address] [address] Marvin Reis Protein [Mass/Vol] 6.3 g/dL Critically low 6.4-8.2 [facility] Comment on above: Performed By: #### U AMIC #### Laboratory [address] [address] [address] Marvin Reis Sodium [Moles/Vol] 139 mmol/L Normal 136-145 [facility] Comment on above: Performed By: #### U AMIC #### Laboratory [address] [address] [address] Marvin Reis Urea nitrogen [Mass/Vol] 20.0 mg/dL Critically high 7.0-18.0 [facility] Comment on above: Performed By: #### U AMIC #### Laboratory [address] [place] [address] Dr. Marvin Reis Urea nitrogen/Creatinine [Mass ratio] 22.7 mg/mg Normal [facility] Comment on above: Performed By: #### U AMIC #### Laboratory [address] [place] [address] Dr. Marvin Reis SED RATE WESTERGRENon 2021 SED RATE 49 mm/hr Critically high <=20 [facility] Comment on above: Performed By: #### U AMIC #### Laboratory [address] [place] [address] Dr. Marvin Reis CBC W MANUAL DIFFon 09-24-20 ATYPICAL LYMPH # Normal [facility] Comment on above: Performed By: #### U RCX #### Laboratory [address] [place] [address] Dr. Marvin Reis ATYPICAL LYMPH % Normal [facility] Comment on above: Performed By: #### U RCX #### Laboratory [address] [place] [address] Dr. Marvin Reis BAND # Normal 0.0-0.3 [facility] Comment on above: Performed By: #### U RCX #### Laboratory [address] [place] [address] Dr. Marvin Reis BAND % Normal 0-5 [facility] Comment on above: Performed By: #### U RCX #### Laboratory [address] [place] [address] Dr. Marvin Reis BASOM # 0.00 103/ul Normal 0.00-0.10 [facility] Comment on above: Performed By: #### U RCX #### Laboratory [address] [address] [address] Marvin Reis BASOM % 0.0 % Critically low 0.2-2.0 [facility] Comment on above: Performed By: #### U RCX #### Laboratory [address] [place] [address] Dr. Marvin Reis BLAST # Normal [facility] Comment on above: Performed By: #### U RCX #### Laboratory [address] [address] [address] Marvin Reis BLAST % Normal [facility] Comment on above: Performed By: #### U RCX #### Laboratory [address] [place] [address] Dr. Marvin Reis CORRECTED WBC Normal 4.0-11.0 [facility] Comment on above: Performed By: #### U RCX #### Laboratory [address] [address] [address] Marvin Reis EOS # 0.00 103/ul Normal 0.00-0.70 [facility] Comment on above: Performed By: #### U RCX #### Laboratory [address] [place] [address] Dr. Marvin Reis EOS% 0.0 % Critically low 0.9-7.0 [facility] Comment on above: Performed By: #### U RCX #### Laboratory [address] [place] [address] Dr. Marvin Reis HCT 33.5 % Critically low 42.0-54.0 [facility] Comment on above: Performed By: #### U RCX #### Laboratory [address] [place] [address] Dr. Marvin Reis HGB 10.9 g/dl Critically low 14.0-18.0 [facility] Comment on above: Performed By: #### U RCX #### Laboratory [address] [place] [address] Dr. Marvin Reis LYMPHM # 0.52 103/ul Critically low 1.20-3.80 [facility] Comment on above: Performed By: #### U RCX #### Laboratory [address] [place] [address] Dr. Marvin Reis LYMPHM% 4.0 % Critically low 20.5-60.0 [facility] Comment on above: Performed By: #### U RCX #### Laboratory [address] [place] [address] Dr. Marvin Reis MCH 27.2 pg Normal 25.9-34.0 [facility] Comment on above: Performed By: #### U RCX #### Laboratory [address] [place] [address] Dr. Marvin Reis MCHC 32.5 g/dl Normal 29.9-35.2 [facility] Comment on above: Performed By: #### U RCX #### Laboratory [address] [address] [address] Marvin Reis MCV 83.5 fL Normal 80.0-94.0 [facility] Comment on above: Performed By: #### U RCX #### Laboratory [address] [place] [address] Dr. Marvin Reis METAMYELOCYTE # Normal [facility] Comment on above: Performed By: #### U RCX #### Laboratory [address] [place] [address] Dr. Marvin Reis METAMYELOCYTE % Normal [facility] Comment on above: Performed By: #### U RCX #### Laboratory [address] [place] [address] Dr. Marvin Reis MONOM# 0.39 103/ul Normal 0.30-0.80 [facility] Comment on above: Performed By: #### U RCX #### Laboratory [address] [place] [address] Dr. Marvin Reis MONOM% 3.0 % Normal 1.7-12.0 [facility] Comment on above: Performed By: #### U RCX #### Laboratory [address] [place] [address] Dr. Marvin Reis MPV 10.5 fL Normal 9.5-13.5 [facility] Comment on above: Performed By: #### U RCX #### Laboratory [address] [place] [address] Dr. Marvin Reis MYELOCYTE # Normal The Comment on above: Performed By: #### U RCX #### Laboratory [address] [place] [address] Dr. Marvin Reis MYELOCYTE % Normal The Comment on above: Performed By: #### U RCX #### Laboratory [address] [address] [address] Marvin Reis NRBC Normal [facility] Comment on above: Performed By: #### U RCX #### Laboratory [address] [address] [address] Marvin Reis PLT 96 103/ul Critically low 150-450 [facility] Comment on above: Performed By: #### U RCX #### Laboratory [address] [address] [address] Marvin Reis RBC 4.01 106/ul Critically low 4.70-6.10 [facility] Comment on above: Performed By: #### U RCX #### Laboratory [address] [address] [address] Marvin Reis RDW 15.8 % Critically high 11.0-15.0 [facility] Comment on above: Performed By: #### U RCX #### Laboratory [address] [address] [address] Marvin Reis SEG # 12.00 103/ul Critically high 1.40-6.50 [facility] Comment on above: Performed By: #### U RCX #### Laboratory [address] [address] [address] Marvin Reis SEG % 93.0 % Critically high 43.0-75.0 [facility] Comment on above: Performed By: #### U RCX #### Laboratory [address] [address] [address] Marvin Reis WBC 12.9 103/ul Critically high 4.0-11.0 [facility] Comment on above: Performed By: #### U RCX #### Laboratory [address] [address] [address] Marvin Reis CRPon 09-24-2022 CRP 8.4 mg/dL Critically high <=1.0 [facility] Comment on above: Performed By: #### U AMIC #### Laboratory [address] [address] [address] Marvin Reis LACTATE/LACTIC ACIDon 2021 Lactate [Moles/Vol] 2.2 mmol/L Critically high 0.4-1.9 [facility] Comment on above: Performed By: #### L ACT #### Laboratory [address] [address] [address] Marvin Reis PROF 14(COMP METB)on 022 Albumin [Mass/Vol] 2.8 g/dL Critically low 3.4-5.0 [facility] Comment on above: Performed By: #### U AMIC #### Laboratory [address] [place] [address] Dr. Marvin Reis Albumin/Globulin [Mass ratio] 0.7 {ratio} Normal [facility] Comment on above: Performed By: #### U AMIC #### Laboratory [address] [place] [address] Dr. Marvin Reis ALP [Catalytic activity/Vol] 80 U/L Normal 46-116 [facility] Comment on above: Performed By: #### U AMIC #### Laboratory [address] [place] [address] Dr. Marvin Reis ALT [Catalytic activity/Vol] 20 U/L Normal 16-63 [facility] Comment on above: Performed By: #### U AMIC #### Laboratory [address] [place] [address] Dr. Marvin Reis Anion gap [Moles/Vol] 12.3 mmol/L Normal [facility] Comment on above: Performed By: #### U AMIC #### Laboratory [address] [place] [address] Dr. Marvin Reis AST [Catalytic activity/Vol] 17 U/L Normal 15-37 [facility] Comment on above: Performed By: #### U AMIC #### Laboratory [address] [place] [address] Dr. Marvin Reis Bilirubin [Mass/Vol] 1.0 mg/dL Normal 0.2-1.0 [facility] Comment on above: Performed By: #### U AMIC #### Laboratory [address] [address] [address] Marvin Reis Calcium [Mass/Vol] 9.0 mg/dL Normal 8.5-10.1 [facility] Comment on above: Performed By: #### U AMIC #### Laboratory [address] [address] [address] Marvin Reis Chloride [Moles/Vol] 106 mmol/L Normal 98-107 [facility] Comment on above: Performed By: #### U AMIC #### Laboratory [address] [address] [address] Marvin Reis CO2 [Moles/Vol] 25.8 mmol/L Normal 21.0-32.0 [facility] Comment on above: Performed By: #### U AMIC #### Laboratory [address] [place] [address] Dr. Marvin Reis Creatinine [Mass/Vol] 1.08 mg/dL Normal 0.70-1.30 [facility] Comment on above: Performed By: #### U AMIC #### Laboratory [address] [address] [address] Marvin Reis EGFR-AF GHANAIAN >60 Normal >=60 [facility] Comment on above: Performed By: #### U AMIC #### Laboratory [address] [address] [address] Marvin Reis EGFR-NON AF GHANAIAN >60 Normal >=60 [facility] Comment on above: Performed By: #### U AMIC #### Laboratory [address] [address] [address] Marvin Reis Globulin (S) [Mass/Vol] 3.8 g/dL Normal [facility] Comment on above: Performed By: #### U AMIC #### Laboratory [address] [address] [address] Marvin Reis Glucose [Mass/Vol] 117 mg/dL Critically high 74-106 T [facility] Comment on above: Performed By: #### U AMIC #### Laboratory [address] [address] [address] Marvin Reis Potassium [Moles/Vol] 4.1 mmol/L Normal 3.5-5.1 [facility] Comment on above: Performed By: #### U AMIC #### Laboratory [address] [address] [address] Marvin Reis Protein [Mass/Vol] 6.6 g/dL Normal 6.4-8.2 [facility] Comment on above: Performed By: #### U AMIC #### Laboratory [address] [address] [address] Marvin Reis Sodium [Moles/Vol] 140 mmol/L Normal 136-145 [facility] Comment on above: Performed By: #### U AMIC #### Laboratory [address] [place] [address] Dr. Marvin Reis Urea nitrogen [Mass/Vol] 23.0 mg/dL Critically high 7.0-18.0 [facility] Comment on above: Performed By: #### U AMIC #### Laboratory [address] [place] [address] Dr. Marvin Reis Urea nitrogen/Creatinine [Mass ratio] 21.3 mg/mg Normal [facility] Comment on above: Performed By: #### U AMIC #### Laboratory [address] [place] [address] Dr. Marvni Reis SED RATE [facility] 2021 SED RATE 51 mm/hr Critically high <=20 [facility] Comment on above: Performed By: #### U RCX #### Laboratory [address] [place] [address] Dr. Marvin Reis UA RANDOMon 09-24-2022 Bilirubin Ql (U) Negative Normal NEGATIVE [facility] Comment on above: Performed By: #### U AMIC #### Laboratory [address] [place] [address] Dr. Marvin Reis Clarity (U) CLEAR Normal CLEAR [facility] Comment on above: Performed By: #### U AMIC #### Laboratory [address] [place] [address] Dr. Marvin Reis Color (U) LT. YELLOW Normal YELLOW The Comment on above: Performed By: #### U AMIC #### Laboratory [address] [address] [address] Marvin Reis Glucose Ql (U) Negative Normal NEGATIVE [facility] Comment on above: Performed By: #### U AMIC #### Laboratory [address] [address] [address] Marvin Reis Hemoglobin Ql (U) LARGE Abnormal NEGATIVE [facility] Comment on above: Performed By: #### U AMIC #### Laboratory [address] [address] [address] Marvin Reis Ketones Ql (U) Negative Normal NEGATIVE [facility] Comment on above: Performed By: #### U AMIC #### Laboratory [address] [place] [address] Dr. Marivn Reis LEUKOCYTES MODERATE Abnormal NEGATIVE [facility] Comment on above: Performed By: #### U AMIC #### Laboratory [address] [place] [address] Dr. Marvin Reis Nitrite Ql (U) Negative Normal NEGATIVE [facility] Comment on above: Performed By: #### U AMIC #### Laboratory [address] [address] [address] Marvin Reis pH (U) 5.5 [pH] Normal 5-9 [facility] Comment on above: Performed By: #### U AMIC #### Laboratory [address] [address] [address] Marvin Reis SPEC GRAVITY 1.020 Normal 1.005-<=1.025 [facility] Comment on above: Performed By: #### U AMIC #### Laboratory [address] [place] [address] Dr. Marvin Reis UA PROTEIN Negative Normal NEGATIVE/ TRACE [facility] Comment on above: Performed By: #### U AMIC #### Laboratory [address] [place] [address] Dr. Marvin Reis Urobilinogen Qn (U) 0.2 {Robbie'U}/dL Normal 0.2 - 1. 0 The Comment on above: Performed By: #### U AMIC #### Laboratory [address] [place] [address] Dr. Marvin Reis CULTURE URINEon 09-13-2022 CULTURE [...] F Oxacillin >=4 R F Normal The Comment on above: Performed By: #### U RCX #### Laboratory [address] [place] [address] Dr. Marvin Reis UA RANDOM W/MICROSCOPICon BACTERIA TRACE Abnormal NONE SEEN The Comment on above: Performed By: #### U AMIC #### Laboratory [address] [place] [address] Dr. Marvin Reis Bilirubin Ql (U) Negative Normal NEGATIVE [facility] Comment on above: Performed By: #### U AMIC #### Laboratory [address] [place] [address] Dr. Marvin Reis CAST NONE SEEN Normal NONE SEEN The Comment on above: Performed By: #### U AMIC #### Laboratory [address] [place] [address] Dr. Marvin Reis Clarity (U) CLEAR Normal CLEAR The Comment on above: Performed By: #### U AMIC #### Laboratory [address] [place] [address] Dr. Marvin Reis Color (U) LT. YELLOW Normal YELLOW The Comment on above: Performed By: #### U AMIC #### Laboratory [address] [address] [address] Marvin Reis Crystals LM Nom (Urine sed) NONE SEEN Normal NONE SEEN [facility] Comment on above: Performed By: #### U AMIC #### Laboratory [address] [address] [address] Marvin Reis Epithelial cells LM Ql (Urine sed) FEW Abnormal NONE SEEN /RARE The Comment on above: Performed By: #### U AMIC #### Laboratory [address] [address] [address] Marvin Reis Glucose Ql (U) Negative Normal NEGATIVE [facility] Comment on above: Performed By: #### U AMIC #### Laboratory [address] [address] [address] Marvin Reis Hemoglobin Ql (U) Negative Normal NEGATIVE [facility] Comment on above: Performed By: #### U AMIC #### Laboratory [address] [address] [address] Marvin Reis Ketones Ql (U) Negative Normal NEGATIVE [facility] Comment on above: Performed By: #### U AMIC #### Laboratory [address] [address] [address] Marvin Reis LEUKOCYTES LARGE Abnormal NEGATIVE The Comment on above: Performed By: #### U AMIC #### Laboratory [address] [address] [address] Marvin Reis MUCOUS NONE SEEN Normal NONE SEEN [facility] Comment on above: Performed By: #### U AMIC #### Laboratory [address] [address] [address] Marvin Reis Nitrite Ql (U) Negative Normal NEGATIVE [facility] Comment on above: Performed By: #### U AMIC #### Laboratory [address] [address] [address] Marvin Reis pH (U) 5.5 [pH] Normal 5-9 The Comment on above: Performed By: #### U AMIC #### Laboratory [address] [address] [address] Marvin Reis RBC 0-2 Normal 0-2 The Comment on above: Performed By: #### U AMIC #### Laboratory [address] [place] [address] Dr. Marvin Reis SPEC GRAVITY 1.025 Normal 1.005-<=1.025 [facility] Comment on above: Performed By: #### U AMIC #### Laboratory [address] [place] [address] Dr. Marvin Reis UA PROTEIN Negative Normal NEGATIVE/ TRACE [facility] Comment on above: Performed By: #### U AMIC #### Laboratory [address] [place] [address] Dr. Marvin Reis Urobilinogen Qn (U) 0.2 {Robbie'U}/dL Normal 0.2 - 1. 0 [facility] Comment on above: Performed By: #### U AMIC #### Laboratory [address] [place] [address] Dr. Marvin Reis WBC 10-20 Abnormal NONE SEEN [facility] Comment on above: Performed By: #### U AMIC #### Laboratory [address] [place] [address] Dr. Marvin Reis CULTURE URINEon 08-17-2022 CULTURE [...] Trimethoprim/Sulfamet hoxazole <=20 S F Normal The Comment on above: Performed By: #### U RCX #### Laboratory [address] [place] [address] Dr. Marvin Reis UA RANDOM W/MICROSCOPICon 10 -13-2022 BACTERIA MODERATE Abnormal NONE SEEN The Comment on above: Performed By: #### U RCX #### Laboratory [address] [address] [address] Marvin Reis Bilirubin Ql (U) Negative Normal NEGATIVE [facility] Comment on above: Performed By: #### U RCX #### Laboratory [address] [place] [address] Dr. Marvin Reis CAST NONE SEEN Normal NONE SEEN The Comment on above: Performed By: #### U RCX #### Laboratory [address] [address] [address] Marvin Reis Clarity (U) SL CLOUDY Abnormal CLEAR The Comment on above: Performed By: #### U RCX #### Laboratory [address] [place] [address] Dr. Marvin Reis Color (U) LT. YELLOW Normal YELLOW The Comment on above: Performed By: #### U RCX #### Laboratory [address] [address] [address] Marvin Reis Crystals LM Nom (Urine sed) NONE SEEN Normal NONE SEEN [facility] Comment on above: Performed By: #### U RCX #### Laboratory [address] [place] [address] Dr. Marvin Reis Epithelial cells LM Ql (Urine sed) RARE Normal NONE SEEN /RARE The Comment on above: Performed By: #### U RCX #### Laboratory [address] [place] [address] Dr. Marvin Reis Glucose Ql (U) Negative Normal NEGATIVE [facility] Comment on above: Performed By: #### U RCX #### Laboratory [address] [address] [address] Marvin Reis Hemoglobin Ql (U) SMALL Abnormal NEGATIVE [facility] Comment on above: Performed By: #### U RCX #### Laboratory [address] [place] [address] Dr. Marvin Reis Ketones Ql (U) Negative Normal NEGATIVE [facility] Comment on above: Performed By: #### U RCX #### Laboratory [address] [address] [address] Marvin Reis LEUKOCYTES MODERATE Abnormal NEGATIVE The Comment on above: Performed By: #### U RCX #### Laboratory [address] [place] [address] Dr. Marvin Reis MUCOUS NONE SEEN Normal NONE SEEN The Comment on above: Performed By: #### U RCX #### Laboratory [address] [address] [address] Marvin Reis Nitrite Ql (U) Positive Abnormal NEGATIVE [facility] Comment on above: Performed By: #### U RCX #### Laboratory [address] [place] [address] Dr. Marvin Reis pH (U) 6.0 [pH] Normal 5-9 [facility] Comment on above: Performed By: #### U RCX #### Laboratory [address] [place] [address] Dr. Marvin Reis RBC 0-2 Normal 0-2 The Comment on above: Performed By: #### U RCX #### Laboratory [address] [address] [address] Marvin Reis SPEC GRAVITY 1.015 Normal 1.005-<=1.025 [facility] Comment on above: Performed By: #### U RCX #### Laboratory [address] [place] [address] Dr. Marvin Reis UA PROTEIN Negative Normal NEGATIVE/ TRACE [facility] Comment on above: Performed By: #### U RCX #### Laboratory [address] [place] [address] Dr. Marvin Reis Urobilinogen Qn (U) 0.2 {Robbie'U}/dL Normal 0.2 - 1. 0 [facility] Comment on above: Performed By: #### U RCX #### Laboratory [address] [place] [address] Dr. Marvin Reis WBC 10-20 Abnormal NONE SEEN The Comment on above: Performed By: #### U RCX #### Laboratory [address] [place] [address] Dr. Marvin Reis CULTURE URINEon 08-02-2022 CULTURE [...] Trimethoprim/Sulfamet hoxazole <=20 S F Normal The Comment on above: Performed By: #### U RCX #### Laboratory [address] [place] [address] Dr. Marvin Reis UA RANDOM W/MICROSCOPICon BACTERIA MODERATE Abnormal NONE SEEN [facility] Comment on above: Performed By: #### U AMIC #### Laboratory [address] [place] [address] Dr. Marvin Reis Bilirubin Ql (U) Negative Normal NEGATIVE [facility] Comment on above: Performed By: #### U AMIC #### Laboratory [address] [place] [address] Dr. Marvin Reis CAST NONE SEEN Normal NONE SEEN [facility] Comment on above: Performed By: #### U AMIC #### Laboratory [address] [place] [address] Dr. Marvin Reis Clarity (U) SL CLOUDY Abnormal CLEAR The Comment on above: Performed By: #### U AMIC #### Laboratory [address] [place] [address] Dr. Marvin Reis Color (U) LT. YELLOW Normal YELLOW The Comment on above: Performed By: #### U AMIC #### Laboratory [address] [place] [address] Dr. Marvin Reis Crystals LM Nom (Urine sed) NONE SEEN Normal NONE SEEN [facility] Comment on above: Performed By: #### U AMIC #### Laboratory [address] [address] [address] Marvin Ries Epithelial cells LM Ql (Urine sed) NONE SEEN Normal NONE SEEN /RARE The Comment on above: Performed By: #### U AMIC #### Laboratory [address] [address] [address] Marvin Reis Glucose Ql (U) Negative Normal NEGATIVE [facility] Comment on above: Performed By: #### U AMIC #### Laboratory [address] [address] [address] Marvin Reis Hemoglobin Ql (U) TRACE-INTACT Abnormal NEGATIVE [facility] Comment on above: Performed By: #### U AMIC #### Laboratory [address] [place] [address] Dr. Marvin Reis Ketones Ql (U) Negative Normal NEGATIVE [facility] Comment on above: Performed By: #### U AMIC #### Laboratory [address] [address] [address] Marvin Reis LEUKOCYTES MODERATE Abnormal NEGATIVE [facility] Comment on above: Performed By: #### U AMIC #### Laboratory [address] [address] [address] Marvin Reis MUCOUS NONE SEEN Normal NONE SEEN [facility] Comment on above: Performed By: #### U AMIC #### Laboratory [address] [address] [address] Marvin Reis Nitrite Ql (U) Positive Abnormal NEGATIVE [facility] Comment on above: Performed By: #### U AMIC #### Laboratory [address] [address] [address] Marvin Reis pH (U) 6.0 [pH] Normal 5-9 The Comment on above: Performed By: #### U AMIC #### Laboratory [address] [address] [address] Marvin Reis RBC 0-2 Normal 0-2 [facility] Comment on above: Performed By: #### U AMIC #### Laboratory [address] [place] [address] Dr. Marvin Reis SPEC GRAVITY 1.015 Normal 1.005-<=1.025 [facility] Comment on above: Performed By: #### U AMIC #### Laboratory [address] [place] [address] Dr. Marvin Reis UA PROTEIN Negative Normal NEGATIVE/ TRACE [facility] Comment on above: Performed By: #### U AMIC #### Laboratory [address] [place] [address] Dr. Marvin Reis Urobilinogen Qn (U) 0.2 {Robbie'U}/dL Normal 0.2 - 1. 0 [facility] Comment on above: Performed By: #### U AMIC #### Laboratory [address] [place] [address] Dr. Marvin Reis WBC 20-50 Abnormal NONE SEEN The Comment on above: Performed By: #### U AMIC #### Laboratory [address] [place] [address] Dr. Marvin Reis CULTURE URINEon 06-27-2022 CULTURE [...] F Oxacillin >=4 R F Normal The Comment on above: Performed By: #### U AMIC #### Laboratory [address] [place] [address] Dr. Marvin Reis UA RANDOM W/MICROSCOPICon BACTERIA LARGE Abnormal NONE SEEN The Comment on above: Performed By: #### U RCX #### Laboratory [address] [address] [address] Marvin Reis Bilirubin Ql (U) Negative Normal NEGATIVE [facility] Comment on above: Performed By: #### U RCX #### Laboratory [address] [address] [address] Marvin Reis CAST NONE SEEN Normal NONE SEEN [facility] Comment on above: Performed By: #### U RCX #### Laboratory [address] [address] [address] Marvin Reis Clarity (U) CLEAR Normal CLEAR The Comment on above: Performed By: #### U RCX #### Laboratory [address] [place] [address] Dr. Marvin Reis Color (U) LT. YELLOW Normal YELLOW The Comment on above: Performed By: #### U RCX #### Laboratory [address] [place] [address] Dr. Marvin Reis Crystals LM Nom (Urine sed) NONE SEEN Normal NONE SEEN [facility] Comment on above: Performed By: #### U RCX #### Laboratory [address] [address] [address] Marvin Reis Epithelial cells LM Ql (Urine sed) FEW Abnormal NONE SEEN /RARE The Comment on above: Performed By: #### U RCX #### Laboratory [address] [place] [address] Dr. Marvin Reis Glucose Ql (U) Negative Normal NEGATIVE [facility] Comment on above: Performed By: #### U RCX #### Laboratory [address] [address] [address] Marvin Reis Hemoglobin Ql (U) TRACE-INTACT Abnormal NEGATIVE [facility] Comment on above: Performed By: #### U RCX #### Laboratory [address] [place] [address] Dr. Marvin Reis Ketones Ql (U) Negative Normal NEGATIVE [facility] Comment on above: Performed By: #### U RCX #### Laboratory [address] [address] [address] Marvin Reis LEUKOCYTES LARGE Abnormal NEGATIVE The Comment on above: Performed By: #### U RCX #### Laboratory [address] [place] [address] Dr. Marvin Reis MUCOUS NONE SEEN Normal NONE SEEN The Comment on above: Performed By: #### U RCX #### Laboratory [address] [place] [address] Dr. Marvin Reis Nitrite Ql (U) Positive Abnormal NEGATIVE [facility] Comment on above: Performed By: #### U RCX #### Laboratory [address] [place] [address] Dr. Marvin Reis pH (U) 5.5 [pH] Normal 5-9 The Comment on above: Performed By: #### U RCX #### Laboratory [address] [place] [address] Dr. Marvin Reis RBC 2-5 Abnormal 0-2 The Comment on above: Performed By: #### U RCX #### Laboratory [address] [place] [address] Dr. Marvin Reis SPEC GRAVITY 1.015 Normal 1.005-<=1.025 [facility] Comment on above: Performed By: #### U RCX #### Laboratory [address] [place] [address] Dr. Marvin Reis UA PROTEIN Negative Normal NEGATIVE/ TRACE [facility] Comment on above: Performed By: #### U RCX #### Laboratory [address] [place] [address] Dr. Marvin Reis Urobilinogen Qn (U) 0.2 {Robbie'U}/dL Normal 0.2 - 1. 0 The Comment on above: Performed By: #### U RCX #### Laboratory [address] [place] [address] Dr. Marvin Reis WBC (U) [#/Vol] /uL Abnormal NONE SEEN [facility] Comment on above: Performed By: #### U RCX #### Laboratory [address] [place] [address] Dr. Marvin Reis CULTURE URINEon 05-27-2022 CULTURE [...] F Oxacillin >=4 R F Normal The Comment on above: Performed By: #### U RCX #### Laboratory [address] [place] [address] Dr. Marvin Reis UA RANDOM W/MICROSCOPICon BACTERIA MODERATE Abnormal NONE SEEN The Comment on above: Performed By: #### U RCX #### Laboratory [address] [place] [address] Dr. Marvin Reis Bilirubin Ql (U) Negative Normal NEGATIVE [facility] Comment on above: Performed By: #### U RCX #### Laboratory [address] [place] [address] Dr. Marvin Reis CAST NONE SEEN Normal NONE SEEN [facility] Comment on above: Performed By: #### U RCX #### Laboratory [address] [place] [address] Dr. Marvin Reis Clarity (U) SL CLOUDY Abnormal CLEAR The Comment on above: Performed By: #### U RCX #### Laboratory [address] [place] [address] Dr. Marvin Reis Color (U) LT. YELLOW Normal YELLOW The Comment on above: Performed By: #### U RCX #### Laboratory [address] [place] [address] Dr. Marvin Reis Crystals LM Nom (Urine sed) NONE SEEN Normal NONE SEEN The Comment on above: Performed By: #### U RCX #### Laboratory [address] [address] [address] Marvin Reis Epithelial cells LM Ql (Urine sed) FEW Abnormal NONE SEEN /RARE The Comment on above: Performed By: #### U RCX #### Laboratory [address] [address] [address] Marvin Reis Glucose Ql (U) Negative Normal NEGATIVE [facility] Comment on above: Performed By: #### U RCX #### Laboratory [address] [address] [address] Marvin Reis Hemoglobin Ql (U) SMALL Abnormal NEGATIVE [facility] Comment on above: Performed By: #### U RCX #### Laboratory [address] [place] [address] Dr. Marvin Reis Ketones Ql (U) Negative Normal NEGATIVE [facility] Comment on above: Performed By: #### U RCX #### Laboratory [address] [address] [address] Marvin Reis LEUKOCYTES LARGE Abnormal NEGATIVE [facility] Comment on above: Performed By: #### U RCX #### Laboratory [address] [address] [address] Marvin Reis MUCOUS TRACE Abnormal NONE SEEN [facility] [facility] Comment on above: Performed By: #### U RCX #### Laboratory [address] [address] [address] Marvin Reis Nitrite Ql (U) Negative Normal NEGATIVE [facility] Comment on above: Performed By: #### U RCX #### Laboratory [address] [address] [address] Marvin Reis pH (U) 6.0 [pH] Normal 5-9 The Comment on above: Performed By: #### U RCX #### Laboratory [address] [address] [address] Marvin Reis RBC 2-5 Abnormal 0-2 [facility] Comment on above: Performed By: #### U RCX #### Laboratory [address] [address] [address] Marvin Reis SPEC GRAVITY 1.010 Normal 1.005-<=1.025 [facility] Comment on above: Performed By: #### U RCX #### Laboratory [address] [address] [address] Marvin Reis UA PROTEIN Negative Normal NEGATIVE/ TRACE [facility] Comment on above: Performed By: #### U RCX #### Laboratory [address] [address] [address] Marvin Reis Urobilinogen Qn (U) 0.2 {Robbie'U}/dL Normal 0.2 - 1. 0 [facility] Comment on above: Performed By: #### U RCX #### Laboratory [address] [place] [address] Dr. Marvin Reis WBC 50-75 Abnormal NONE SEEN The Comment on above: Performed By: #### U RCX #### Laboratory [address] [place] [address] Dr. Marvin Reis CULTURE URINEon 04-18-2022 CULTURE [...] F Oxacillin >=4 R F Normal The Comment on above: Performed By: #### U RCX #### Laboratory [address] [address] [address] Marvin Reis UA RANDOM W/MICROSCOPICon BACTERIA TRACE Abnormal NONE SEEN The Comment on above: Performed By: #### U AMIC #### Laboratory [address] [address] [address] Marvin Reis Bilirubin Ql (U) Negative Normal NEGATIVE [facility] Comment on above: Performed By: #### U AMIC #### Laboratory [address] [address] [address] Marvin Reis CAST NONE SEEN Normal NONE SEEN The Comment on above: Performed By: #### U AMIC #### Laboratory [address] [address] [address] Marvin Reis Clarity (U) CLEAR Normal CLEAR The Comment on above: Performed By: #### U AMIC #### Laboratory [address] [address] [address] Marvin Reis Color (U) LT. YELLOW Normal YELLOW The Comment on above: Performed By: #### U AMIC #### Laboratory [address] [address] [address] Marvin Reis Crystals LM Nom (Urine sed) NONE SEEN Normal NONE SEEN The Comment on above: Performed By: #### U AMIC #### Laboratory [address] [address] [address] Marvin Reis Epithelial cells LM Ql (Urine sed) FEW Abnormal NONE SEEN /RARE The Comment on above: Performed By: #### U AMIC #### Laboratory [address] [address] [address] Marvin Reis Glucose Ql (U) Negative Normal NEGATIVE [facility] Comment on above: Performed By: #### U AMIC #### Laboratory [address] [address] [address] Marvin Reis Hemoglobin Ql (U) TRACE-INTACT Abnormal NEGATIVE [facility] Comment on above: Performed By: #### U AMIC #### Laboratory [address] [address] [address] Marvin Reis Ketones Ql (U) Negative Normal NEGATIVE [facility] Comment on above: Performed By: #### U AMIC #### Laboratory [address] [place] [address] Dr. Marvin Reis LEUKOCYTES SMALL Abnormal NEGATIVE The Comment on above: Performed By: #### U AMIC #### Laboratory [address] [place] [address] Dr. Marvin Reis MUCOUS NONE SEEN Normal NONE SEEN The Comment on above: Performed By: #### U AMIC #### Laboratory [address] [place] [address] Dr. Marvin Reis Nitrite Ql (U) Negative Normal NEGATIVE [facility] Comment on above: Performed By: #### U AMIC #### Laboratory [address] [place] [address] Dr. Marvin Reis pH (U) 6.0 [pH] Normal 5-9 The Comment on above: Performed By: #### U AMIC #### Laboratory [address] [place] [address] Dr. Marvin Reis RBC 0-2 Normal 0-2 The Comment on above: Performed By: #### U AMIC #### Laboratory [address] [place] [address] Dr. Marvin Reis SPEC GRAVITY 1.010 Normal 1.005-<=1.025 [facility] Comment on above: Performed By: #### U AMIC #### Laboratory [address] [place] [address] Dr. Marvin Reis UA PROTEIN Negative Normal NEGATIVE/ TRACE [facility] Comment on above: Performed By: #### U AMIC #### Laboratory [address] [place] [address] Dr. Marvin Reis Urobilinogen Qn (U) 0.2 {Robbie'U}/dL Normal 0.2 - 1. 0 [facility] Comment on above: Performed By: #### U AMIC #### Laboratory [address] [place] [address] Dr. Marvin Reis WBC 2-5 Abnormal NONE SEEN The Comment on above: Performed By: #### U AMIC #### Laboratory [address] [place] [address] Dr. Marvin Reis CULTURE URINEon 03-27-2022 CULTURE [...] Trimethoprim/Sulfamet hoxazole >=320 R F Normal The Comment on above: Performed By: #### U RCX #### Laboratory [address] [place] [address] Dr. Marvin Reis UA RANDOM W/MICROSCOPICon BACTERIA TRACE Abnormal NONE SEEN The Comment on above: Performed By: #### U RCX #### Laboratory [address] [place] [address] Dr. Marvin Reis Bilirubin Ql (U) Negative Normal NEGATIVE [facility] Comment on above: Performed By: #### U RCX #### Laboratory [address] [place] [address] Dr. Marvin Reis CAST NONE SEEN Normal NONE SEEN The Comment on above: Performed By: #### U RCX #### Laboratory [address] [place] [address] Dr. Marvin Reis Clarity (U) CLEAR Normal CLEAR The Comment on above: Performed By: #### U RCX #### Laboratory [address] [address] [address] Marvin Reis Color (U) LT. YELLOW Normal YELLOW The Comment on above: Performed By: #### U RCX #### Laboratory [address] [place] [address] Dr. Marvin Reis Crystals LM Nom (Urine sed) NONE SEEN Normal NONE SEEN The Comment on above: Performed By: #### U RCX #### Laboratory [address] [address] [address] Marvin Reis Epithelial cells LM Ql (Urine sed) FEW Abnormal NONE SEEN /RARE The Comment on above: Performed By: #### U RCX #### Laboratory [address] [place] [address] Dr. Marvin Reis Glucose Ql (U) Negative Normal NEGATIVE [facility] Comment on above: Performed By: #### U RCX #### Laboratory [address] [place] [address] Dr. Marvin Reis Hemoglobin Ql (U) SMALL Abnormal NEGATIVE [facility] Comment on above: Performed By: #### U RCX #### Laboratory [address] [place] [address] Dr. Marvin Reis Ketones Ql (U) Negative Normal NEGATIVE [facility] Comment on above: Performed By: #### U RCX #### Laboratory [address] [place] [address] Dr. Marvin Reis LEUKOCYTES MODERATE Abnormal NEGATIVE The Comment on above: Performed By: #### U RCX #### Laboratory [address] [place] [address] Dr. Marvin Reis MUCOUS NONE SEEN Normal NONE SEEN [facility] Comment on above: Performed By: #### U RCX #### Laboratory [address] [place] [address] Dr. Marvin Reis Nitrite Ql (U) Negative Normal NEGATIVE [facility] Comment on above: Performed By: #### U RCX #### Laboratory [address] [place] [address] Dr. Marvin Reis pH (U) 5.5 [pH] Normal 5-9 The Comment on above: Performed By: #### U RCX #### Laboratory [address] [place] [address] Dr. Marvin Reis RBC NONE SEEN Abnormal 0-2 The Comment on above: Performed By: #### U RCX #### Laboratory [address] [place] [address] Dr. Marvin Reis SPEC GRAVITY 1.015 Normal 1.005-<=1.025 [facility] Comment on above: Performed By: #### U RCX #### Laboratory [address] [place] [address] Dr. Marvin Reis UA PROTEIN Negative Normal NEGATIVE/ TRACE [facility] Comment on above: Performed By: #### U RCX #### Laboratory [address] [place] [address] Dr. Marvin Reis Urobilinogen Qn (U) 0.2 {Robbie'U}/dL Normal 0.2 - 1. 0 [facility] Comment on above: Performed By: #### U RCX #### Laboratory [address] [place] [address] Dr. Marvin Reis WBC 20-50 Abnormal NONE SEEN [facility] Comment on above: Performed By: #### U RCX #### Laboratory [address] [place] [address] Dr. Marvin Reis YEAST PRESENT Abnormal NONE SEEN [facility] Comment on above: Performed By: #### U RCX #### Laboratory [address] [place] [address] Dr. Marvin Reis CULTURE URINEon 03-18-2022 CULTURE URINE Culture Observations : No growth Normal The Comment on above: Performed By: #### U RCX #### Laboratory [address] [place] [address] Dr. Marvin Reis UA RANDOM W/MICROSCOPICon BACTERIA NONE SEEN Normal NONE SEEN [facility] Comment on above: Performed By: #### U AMIC #### Laboratory [address] [address] [address] Marvin Reis Bilirubin Ql (U) Negative Normal NEGATIVE [facility] Comment on above: Performed By: #### U AMIC #### Laboratory [address] [address] [address] Marvin Reis CAST NONE SEEN Normal NONE SEEN [facility] Comment on above: Performed By: #### U AMIC #### Laboratory [address] [place] [address] Dr. Marvin Reis Clarity (U) CLOUDY Abnormal CLEAR [facility] Comment on above: Performed By: #### U AMIC #### Laboratory [address] [address] [address] Marvin Reis Color (U) LT. YELLOW Normal YELLOW [facility] Comment on above: Performed By: #### U AMIC #### Laboratory [address] [place] [address] Dr. Marvin Reis Crystals LM Nom (Urine sed) NONE SEEN Normal NONE SEEN [facility] Comment on above: Performed By: #### U AMIC #### Laboratory [address] [place] [address] Dr. Marvin Reis Epithelial cells LM Ql (Urine sed) RARE Normal NONE SEEN /RARE The Comment on above: Performed By: #### U AMIC #### Laboratory [address] [place] [address] Dr. Marvin Reis Glucose Ql (U) Negative Normal NEGATIVE [facility] Comment on above: Performed By: #### U AMIC #### Laboratory [address] [place] [address] Dr. Marvin Reis Hemoglobin Ql (U) TRACE-INTACT Abnormal NEGATIVE [facility] Comment on above: Performed By: #### U AMIC #### Laboratory [address] [place] [address] Dr. Marvin Reis Ketones Ql (U) Negative Normal NEGATIVE [facility] Comment on above: Performed By: #### U AMIC #### Laboratory [address] [place] [address] Dr. Marvin Reis LEUKOCYTES MODERATE Abnormal NEGATIVE The Comment on above: Performed By: #### U AMIC #### Laboratory [address] [address] [address] Marvin Reis MUCOUS NONE SEEN Normal NONE SEEN The Comment on above: Performed By: #### U AMIC #### Laboratory [address] [address] [address] Marvin Reis Nitrite Ql (U) Negative Normal NEGATIVE [facility] Comment on above: Performed By: #### U AMIC #### Laboratory [address] [address] [address] Marvin Reis pH (U) 6.0 [pH] Normal 5-9 The Comment on above: Performed By: #### U AMIC #### Laboratory [address] [place] [address] Dr. Marvin Reis RBC NONE SEEN Abnormal 0-2 The Comment on above: Performed By: #### U AMIC #### Laboratory [address] [place] [address] Dr. Marvin Reis SPEC GRAVITY 1.015 Normal 1.005-<=1.025 [facility] Comment on above: Performed By: #### U AMIC #### Laboratory [address] [address] [address] Marvin eRis UA PROTEIN Negative Normal NEGATIVE/ TRACE [facility] Comment on above: Performed By: #### U AMIC #### Laboratory [address] [address] [address] Marvin Reis Urobilinogen Qn (U) 0.2 {Robbie'U}/dL Normal 0.2 - 1. 0 The Comment on above: Performed By: #### U AMIC #### Laboratory [address] [place] [address] Dr. Marvin Reis WBC 10-20 Abnormal NONE SEEN The Comment on above: Performed By: #### U AMIC #### Laboratory [address] [place] [address] Dr. Marvin Reis Coding Summary.on 06-21-2020 Coding Summary. CODING DATE: 06/21/2020 FINAL [facility] STATUS: PAYOR: Worker's Compensation ADMIT DX: [...] Hopper CphT Date Saved: 06/21/2020 12:01 pm [facility] PT - Assessmentson 0 PT - Assessments [id number]# 1.00CD:127 [facility] PT - Orderson 06-20-2020 PT - Orders [id number]# 1.00CD:127 [facility] PT - Workers Compon 06-20-20 20 PT - Workers Comp [id number]# 1.00CD:127 [facility] Encounters Encounter Date Encounter Type Care Provider Facility Start: 03-10-2023 End: 03-11-2023 [facility] Start: 03-03-2023 End: 03-03-[address] [...] Facility:[facility] Payers Date Payer Category Payer Medicare [id number] 1961 Unknown [id number] 1960 Unknown [id number] 2.16.84 0.1.737527.3.579.2.593 1958 Unknown [id number] 2.16.84 0.1.760859.3.579.2.593 1958 Unknown [id number] 2.16.84 0.1.586230.3.579.2.593 1958 Unknown [id number] 2.16.84 0.1.247629.3.579.2.593 1958 Unknown [id number] 2.16.84 0.1.349951.3.579.2.593 1958 Unknown [id number] 2.16.84 0.1.193192.3.579.2.593 1958 Unknown [id number] 2.16.84 0.1.941268.3.579.2.593 1958 Unknown [id number] 2.16.84 0.1.761977.3.579.2.593 1958 Unknown [id number] 2.16.84 0.1.233689.3.579.2.593 1958 Unknown [id number] 2.16.84 0.1.611969.3.579.2.593 1958 Unknown [id number] 2.16.84 0.1.690275.3.579.2.593 1958 Unknown [id number] 2.16.84 0.1.839953.3.579.2.593 1958 Unknown [id number] 2.16.84 0.1.418361.3.579.2.593 1958 Unknown [id number] 2.16.84 0.1.922038.3.579.2.593 1958 Unknown [id number] 2.16.84 0.1.972348.3.579.2.593 1958 Unknown [id number] 2.16.84 0.1.255395.3.579.2.593 1958 Unknown [id number] 2.16.84 0.1.260417.3.579.2.593 1958 Unknown [id number] 2.16.84 0.1.032467.3.579.2.593 1958 Unknown [id number] 2.16.84 0.1.414749.3.579.2.593 Summary Purpose Family History No Family History [...] and content) DATE CREATED AUTHOR 09/19/2020 [facility] DATE CREATED AUTHOR AUTHOR'S ORGANIZ ATION 03/06/2023 [facility] DATE CREATED AUTHOR AUTHOR'S ORGANIZ ATION 03/11/2023 [facility] DATE CREATED AUTHOR AUTHOR'S ORGANIZ ATION 06/07/2023 [facility] FOR RECORDS PERTAINING TO PATIENTS WHO [...] BE BASED ON THE PRIMARY CLINICAL RECORDS. [employer] [facility]. provides no warranty or guarantee of the accuracy or completeness of information in this document.
[2024-04-23 14:55] LABS: Bilirubin Urine NEGATIVE (NEGATIVE); Blood Urine MODERATE (NEGATIVE); Clarity Urine CLEAR (CLEAR); Color Urine LT. YELLOW (YELLOW); Glucose Urine UA NEGATIVE (NEGATIVE); Ketones Urine NEGATIVE (NEGATIVE); Leukocyte Esterase Urine LARGE (NEGATIVE); Nitrite Urine NEGATIVE (NEGATIVE); Protein Urine 100 mg/dL (NEG/TRACE); Urobilinogen Urine 0.2 EU/dL (0.2-1.0)
[2024-04-23 15:06] LABS: Bacteria Urine MODERATE #/HPF (NONE SEEN); Mucus Urine NONE SEEN (NONE SEEN); Squamous Epithelial Cell Urine RARE #/LPF (NONE/RARE); WBC Urine >100 #/HPF (NONE SEEN)
[2024-04-23 15:07] LABS: Urine Culture Indicated ALREADY ORDERED
== END 2024-04-23 13:29 | disposition home or self-care (01) ==
LOC: LAB 13:29
PROVIDERS: PCP Family Medicine; Visit Provider Family Medicine
DX: N31.9 Neuromuscular dysfunction of bladder, unspecified (principal); N39.0 Urinary tract infection, site not specified
CPT/HCPCS: 81001; 87086; 87106

== ENCOUNTER 2024-05-07 14:11 | Outpatient (REF) | payer OTHER, SELFPAY ==
--- OUTSIDE RECORDS SUMMARY | 2024-05-07 14:17 | XMS_ITS | CCD ---
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 Role Phone HOY ., DR [...] Unavailable HOY ., DR WEBBER Admherman Unavailable [place], DR MAGY [employer] Unavailable HOY ., [...] source) ceFAZolin Drug Allergy 04-21-20 13 [facility] (1 source) Cilastatin / Imipenem Drug Allergy 04-21-20 13 [facility] (1 source) Readi-Cat Drug allergy (disorder) 04-21-20 13 [facility] (1 source) ceFAZolin; Translations: [CEFAZOLIN] Drug Allergy 12-01-19 13 [facility] (1 source) Cephalexin; Translations: [CEPHALEXIN MONOHYDRATE] Drug Allergy 08-03-20 09 [facility] (1 source) Promazine; Translations: [PROMAZINE] Drug Allergy 12-01-19 13 [facility] (1 source) Sulfamethoxazole / Trimethoprim; Translations: [SULFAMETHOXAZOLE-TR IMETHOPRIM] Drug Allergy 03-10-20 23 [facility] (1 source) IODINATED CONTRAST MEDIA; Translations: [IODINATED CONTRAST MEDIA] Propensity to adverse reactions to drug (disorder) 12-01-19 13 [facility] Problems Active Problems Problem Classification Problem [...] RESISTANT TO ALL B-LACTAM DRUGS. PERFORMED BY: [place] [address] PATHOLOGIST BRIM STRETCHER MARLA VEGA M.D. [facility] Comment on above: Performed By: #### A MAI LAYNE #### [place] [id number] [place] Gram Stainon 06-03-2023 Microscopic observation Gram stain Nom (Unsp spec) Gram Stain Result No Bacteria Seen PERFORMED BY: [place] [address] PATHOLOGIST BRIM STRETCHER MARLA VEGA M.D. [facility] Comment on above: Performed By: #### A MAI LAYNE #### [place] [id number] [place] CULTURE URINEon 03-06-2023 CULTURE URINE Isolate [...] F Levofloxacin 2 S F Normal [facility] Comment on above: Performed By: #### U RCX #### [facility] [address] [place] [address] Dr. Marvin Reis UA RANDOM W/MICROSCOPICon BACTERIA SMALL Abnormal NONE SEEN [facility] Comment on above: Performed By: #### U AMIC #### [facility] [address] [place] [address] Dr. Marvin Reis Bilirubin Ql (U) Negative Normal NEGATIVE [facility] Comment on above: Performed By: #### U AMIC #### [facility] [address] [place] [address] Dr. Marvin Reis CAST NONE SEEN Normal NONE SEEN [facility] Comment on above: Performed By: #### U AMIC #### [facility] [address] [place] [address] Dr. Marvin Reis Clarity (U) CLEAR Normal CLEAR [facility] Comment on above: Performed By: #### U AMIC #### [facility] [address] [place] [address] Dr. Marvin Reis Color (U) LT. YELLOW Normal YELLOW [facility] Comment on above: Performed By: #### U AMIC #### [facility] [address] [address] [address] Marvin Reis Crystals LM Nom (Urine sed) NONE SEEN Normal NONE SEEN [facility] Comment on above: Performed By: #### U AMIC #### [facility] [address] [place] [address] Dr. Marvin Reis Epithelial cells LM Ql (Urine sed) RARE Normal NONE SEEN /RARE [facility] Comment on above: Performed By: #### U AMIC #### [facility] [address] [address] [address] Marvin Reis Glucose Ql (U) Negative Normal NEGATIVE [facility] Comment on above: Performed By: #### U AMIC #### [facility] [address] [place] [address] Dr. Marvin Reis Hemoglobin Ql (U) Negative Normal NEGATIVE [facility] Comment on above: Performed By: #### U AMIC #### [facility] [address] [place] [address] Dr. Marvin Reis Ketones Ql (U) Negative Normal NEGATIVE [facility] Comment on above: Performed By: #### U AMIC #### [facility] [address] [place] [address] Dr. Marvin Reis LEUKOCYTES SMALL Abnormal NEGATIVE [facility] Comment on above: Performed By: #### U AMIC #### [facility] [address] [place] [address] Dr. Marvin Reis MUCOUS NONE SEEN Normal NONE SEEN [facility] Comment on above: Performed By: #### U AMIC #### [facility] [address] [place] [address] Dr. Marvin Reis Nitrite Ql (U) Negative Normal NEGATIVE [facility] Comment on above: Performed By: #### U AMIC #### [facility] [address] [place] [address] Dr. Marvin Reis pH (U) 6.0 [pH] Normal 5-9 [facility] Comment on above: Performed By: #### U AMIC #### [facility] [address] [place] [address] Dr. Marvin Reis RBC 0-2 Normal 0-2 [facility] Comment on above: Performed By: #### U AMIC #### [facility] [address] [place] [address] Dr. Marvin Reis SPEC GRAVITY 1.010 Normal 1.005-<=1.025 [facility] Comment on above: Performed By: #### U AMIC #### [facility] [address] [address] [address] Marvin Reis UA PROTEIN Negative Normal NEGATIVE/ TRACE [facility] Comment on above: Performed By: #### U AMIC #### [facility] [address] [place] [address] Dr. Marvin Reis Urobilinogen Qn (U) 0.2 {Robbie'U}/dL Normal 0.2 - 1. 0 [facility] Comment on above: Performed By: #### U AMIC #### [facility] [address] [place] [address] Dr. Marvin Reis WBC 5-10 Abnormal NONE SEEN [facility] Comment on above: Performed By: #### U AMIC #### [facility] [address] [place] [address] Dr. Marvin Reis CULTURE URINEon 02-13-2023 CULTURE [...] F Levofloxacin 2 S F Normal [facility] Comment on above: Performed By: #### U RCX #### [facility] [address] [place] [address] Dr. Marvin Reis UA RANDOM W/MICROSCOPICon BACTERIA MODERATE Abnormal NONE SEEN [facility] Comment on above: Performed By: #### U AMIC #### [facility] [address] [place] [address] Dr. Marvin Reis Bilirubin Ql (U) Negative Normal NEGATIVE [facility] Comment on above: Performed By: #### U AMIC #### [facility] [address] [place] [address] Dr. Marvin Reis CAST NONE SEEN Normal NONE SEEN [facility] Comment on above: Performed By: #### U AMIC #### [facility] [address] [place] [address] Dr. Marvin Reis Clarity (U) CLEAR Normal CLEAR [facility] Comment on above: Performed By: #### U AMIC #### [facility] [address] [place] [address] Dr. Marvin Reis Color (U) LT. YELLOW Normal YELLOW [facility] Comment on above: Performed By: #### U AMIC #### [facility] [address] [place] [address] Dr. Marvin Reis Crystals LM Nom (Urine sed) NONE SEEN Normal NONE SEEN [facility] Comment on above: Performed By: #### U AMIC #### [facility] [address] [place] [address] Dr. Marvin Reis Epithelial cells LM Ql (Urine sed) MODERATE Abnormal NONE SEEN /RARE [facility] Comment on above: Performed By: #### U AMIC #### [facility] [address] [place] [address] Dr. Marvin Reis Glucose Ql (U) Negative Normal NEGATIVE [facility] Comment on above: Performed By: #### U AMIC #### [facility] [address] [place] [address] Dr. Marvin Reis Hemoglobin Ql (U) SMALL Abnormal NEGATIVE [facility] Comment on above: Performed By: #### U AMIC #### [facility] [address] [address] [address] Marvin Reis Ketones Ql (U) Negative Normal NEGATIVE [facility] Comment on above: Performed By: #### U AMIC #### [facility] [address] [address] [address] Marvin Reis LEUKOCYTES LARGE Abnormal NEGATIVE [facility] Comment on above: Performed By: #### U AMIC #### [facility] [address] [address] [address] Marvin Reis MUCOUS NONE SEEN Normal NONE SEEN [facility] Comment on above: Performed By: #### U AMIC #### [facility] [address] [place] [address] Dr. Marvin Reis Nitrite Ql (U) Positive Abnormal NEGATIVE [facility] Comment on above: Performed By: #### U AMIC #### [facility] [address] [address] [address] Marvin Reis pH (U) 5.5 [pH] Normal 5-9 [facility] Comment on above: Performed By: #### U AMIC #### [facility] [address] [address] [address] Marvin Reis RBC 5-10 Abnormal 0-2 [facility] Comment on above: Performed By: #### U AMIC #### [facility] [address] [address] [address] Marvin Reis SPEC GRAVITY 1.015 Normal 1.005-<=1.025 [facility] Comment on above: Performed By: #### U AMIC #### [facility] [address] [address] [address] Marvin Reis UA PROTEIN Negative Normal NEGATIVE/ TRACE [facility] Comment on above: Performed By: #### U AMIC #### [facility] [address] [place] [address] Dr. Marvin Reis Urobilinogen Qn (U) 0.2 {Robbie'U}/dL Normal 0.2 - 1. 0 [facility] Comment on above: Performed By: #### U AMIC #### [facility] [address] [place] [address] Dr. Marvin Reis WBC 50-75 Abnormal NONE SEEN [facility] Comment on above: Performed By: #### U AMIC #### [facility] [id number] Marvin Reis CULTURE URINEon 01-23-2023 CULTURE [...] Trimethoprim/Sulfamet hoxazole <=10 S F Normal [facility] Comment on above: Performed By: #### U AMIC #### [facility] [address] [place] [address] Dr. Marvin Reis UA RANDOM W/MICROSCOPICon BACTERIA TRACE Abnormal NONE SEEN [facility] Comment on above: Performed By: #### U AMIC #### [facility] [address] [place] [address] Dr. Marvin Reis Bilirubin Ql (U) Negative Normal NEGATIVE [facility] Comment on above: Performed By: #### U AMIC #### [facility] [address] [address] [address] Marvin Reis CAST NONE SEEN Normal NONE SEEN [facility] Comment on above: Performed By: #### U AMIC #### [facility] [address] [address] [address] Marvin Reis Clarity (U) SL CLOUDY Abnormal CLEAR [facility] Comment on above: Performed By: #### U AMIC #### [facility] [address] [address] [address] Marvin Reis Color (U) LT. YELLOW Normal YELLOW [facility] Comment on above: Performed By: #### U AMIC #### [facility] [address] [place] [address] Dr. Marvin Reis Crystals LM Nom (Urine sed) NONE SEEN Normal NONE SEEN [facility] Comment on above: Performed By: #### U AMIC #### [facility] [address] [place] [address] Dr. Marvin Reis Epithelial cells LM Ql (Urine sed) NONE SEEN Normal NONE SEEN /RARE [facility] Comment on above: Performed By: #### U AMIC #### [facility] [address] [place] [address] Dr. Marvin Reis Glucose Ql (U) Negative Normal NEGATIVE [facility] Comment on above: Performed By: #### U AMIC #### [facility] [address] [address] [address] Marvin Reis Hemoglobin Ql (U) Negative Normal NEGATIVE [facility] Comment on above: Performed By: #### U AMIC #### [facility] [address] [address] [address] Marvin Reis Ketones Ql (U) Negative Normal NEGATIVE [facility] Comment on above: Performed By: #### U AMIC #### [facility] [address] [place] [address] Dr. Marvin Reis LEUKOCYTES TRACE Abnormal NEGATIVE [facility] Comment on above: Performed By: #### U AMIC #### [facility] [address] [address] [address] Marvin Reis MUCOUS NONE SEEN Normal NONE SEEN [facility] Comment on above: Performed By: #### U AMIC #### [facility] [address] [place] [address] Dr. Marvin Reis Nitrite Ql (U) Negative Normal NEGATIVE [facility] Comment on above: Performed By: #### U AMIC #### [facility] [address] [place] [address] Dr. Marvin Reis pH (U) 6.0 [pH] Normal 5-9 [facility] Comment on above: Performed By: #### U AMIC #### [facility] [address] [place] [address] Dr. Marvin Reis RBC NONE SEEN Abnormal 0-2 [facility] Comment on above: Performed By: #### U AMIC #### [facility] [address] [place] [address] Dr. Marvin Reis SPEC GRAVITY 1.020 Normal 1.005-<=1.025 [facility] Comment on above: Performed By: #### U AMIC #### [facility] [address] [place] [address] Dr. Marvin Reis UA PROTEIN Negative Normal NEGATIVE/ TRACE [facility] Comment on above: Performed By: #### U AMIC #### [facility] [address] [place] [address] Dr. Marvin Reis Urobilinogen Qn (U) 0.2 {Robbie'U}/dL Normal 0.2 - 1. 0 [facility] Comment on above: Performed By: #### U AMIC #### [facility] [address] [place] [address] Dr. Marvin Reis WBC 10-20 Abnormal NONE SEEN [facility] Comment on above: Performed By: #### U AMIC #### [facility] [address] [place] [address] Dr. Marvin Reis CULTURE URINEon 01-07-2023 CULTURE URINE Isolate 1 Dawna albicans 10,000 cfu/mL of Normal [facility] Comment on above: Performed By: #### U RCX #### [facility] [address] [address] [address] Marvin Reis UA RANDOM W/MICROSCOPICon BACTERIA TRACE Abnormal NONE SEEN [facility] Comment on above: Performed By: #### U AMIC #### [facility] [address] [address] [address] Marvin Reis Bilirubin Ql (U) Negative Normal NEGATIVE [facility] Comment on above: Performed By: #### U AMIC #### [facility] [address] [address] [address] Marvin Reis CA OX CRYSTALS RARE Normal [facility] Comment on above: Performed By: #### U AMIC #### [facility] [address] [address] [address] Marvin Reis CAST NONE SEEN Normal NONE SEEN [facility] Comment on above: Performed By: #### U AMIC #### [facility] [address] [address] [address] Marvin Reis Clarity (U) CLEAR Normal CLEAR [facility] Comment on above: Performed By: #### U AMIC #### [facility] [address] [address] [address] Marvin Reis Color (U) LT. YELLOW Normal YELLOW [facility] Comment on above: Performed By: #### U AMIC #### [facility] [address] [address] [address] Marvin Reis Crystals LM Nom (Urine sed) SEEN Abnormal NONE SEEN [facility] Comment on above: Performed By: #### U AMIC #### [facility] [address] [address] [address] Marvin Reis Epithelial cells LM Ql (Urine sed) FEW Abnormal NONE SEEN /RARE [facility] Comment on above: Performed By: #### U AMIC #### [facility] [address] [address] [address] Marvin Reis Glucose Ql (U) Negative Normal NEGATIVE [facility] Comment on above: Performed By: #### U AMIC #### [facility] [address] [address] [address] Marvin Reis Hemoglobin Ql (U) Negative Normal NEGATIVE [facility] Comment on above: Performed By: #### U AMIC #### [facility] [address] [address] [address] Marvin Reis Ketones Ql (U) Negative Normal NEGATIVE [facility] Comment on above: Performed By: #### U AMIC #### [facility] [address] [address] [address] Marvin Reis LEUKOCYTES SMALL Abnormal NEGATIVE [facility] Comment on above: Performed By: #### U AMIC #### [facility] [address] [place] [address] Dr. Marvin Reis MUCOUS NONE SEEN Normal NONE SEEN [facility] Comment on above: Performed By: #### U AMIC #### [facility] [address] [place] [address] Dr. Marvin Reis Nitrite Ql (U) Negative Normal NEGATIVE [facility] Comment on above: Performed By: #### U AMIC #### [facility] [address] [place] [address] Dr. Marvin Reis pH (U) 5.5 [pH] Normal 5-9 [facility] Comment on above: Performed By: #### U AMIC #### [facility] [address] [place] [address] Dr. Marvin Reis RBC 0-2 Normal 0-2 [facility] Comment on above: Performed By: #### U AMIC #### [facility] [address] [place] [address] Dr. Marvin Reis SPEC GRAVITY 1.015 Normal 1.005-<=1.025 [facility] Comment on above: Performed By: #### U AMIC #### [facility] [address] [place] [address] Dr. Marvin Reis UA PROTEIN Negative Normal NEGATIVE/ TRACE [facility] Comment on above: Performed By: #### U AMIC #### [facility] [address] [place] [address] Dr. Marvin Reis Urobilinogen Qn (U) 0.2 {Robbie'U}/dL Normal 0.2 - 1. 0 [facility] Comment on above: Performed By: #### U AMIC #### [facility] [address] [place] [address] Dr. Marvin Reis WBC 50-75 Abnormal NONE SEEN [facility] Comment on above: Performed By: #### U AMIC #### [facility] [address] [place] [address] Dr. Marvin Reis YEAST PRESENT Abnormal NONE SEEN [facility] Comment on above: Performed By: #### U AMIC #### [facility] [address] [place] [address] Dr. Marvin Reis CULTURE URINEon 12-25-2022 CULTURE [...] Trimethoprim/Sulfamet hoxazole >=320 R F Normal [facility] Comment on above: Performed By: #### U RCX #### [facility] [address] [place] [address] Dr. Marvin Reis UA RANDOM W/MICROSCOPICon BACTERIA NONE SEEN Normal NONE SEEN [facility] Comment on above: Performed By: #### U AMIC #### [facility] [address] [place] [address] Dr. Marvin Reis Bilirubin Ql (U) Negative Normal NEGATIVE [facility] Comment on above: Performed By: #### U AMIC #### [facility] [address] [place] [address] Dr. Marvin Reis CAST NONE SEEN Normal NONE SEEN [facility] Comment on above: Performed By: #### U AMIC #### [facility] [address] [place] [address] Dr. Marvin Reis Clarity (U) CLEAR Normal CLEAR [facility] Comment on above: Performed By: #### U AMIC #### [facility] [address] [address] [address] Marvin Reis Color (U) LT. YELLOW Normal YELLOW [facility] Comment on above: Performed By: #### U AMIC #### [facility] [address] [place] [address] Dr. Marvin Reis Crystals LM Nom (Urine sed) NONE SEEN Normal NONE SEEN [facility] Comment on above: Performed By: #### U AMIC #### [facility] [address] [place] [address] Dr. Marvin Reis Epithelial cells LM Ql (Urine sed) RARE Normal NONE SEEN /RARE [facility] Comment on above: Performed By: #### U AMIC #### [facility] [address] [place] [address] Dr. Marvin Reis Glucose Ql (U) Negative Normal NEGATIVE [facility] Comment on above: Performed By: #### U AMIC #### [facility] [address] [place] [address] Dr. Marvin Reis Hemoglobin Ql (U) Negative Normal NEGATIVE [facility] Comment on above: Performed By: #### U AMIC #### [facility] [address] [address] [address] Marvin Reis Ketones Ql (U) Negative Normal NEGATIVE [facility] Comment on above: Performed By: #### U AMIC #### [facility] [address] [place] [address] Dr. Marvin Reis LEUKOCYTES MODERATE Abnormal NEGATIVE [facility] Comment on above: Performed By: #### U AMIC #### [facility] [address] [place] [address] Dr. Marvin Reis MUCOUS NONE SEEN Normal NONE SEEN [facility] Comment on above: Performed By: #### U AMIC #### [facility] [address] [place] [address] Dr. Marvin Reis Nitrite Ql (U) Negative Normal NEGATIVE [facility] Comment on above: Performed By: #### U AMIC #### [facility] [address] [place] [address] Dr. Marvin Reis pH (U) 5.5 [pH] Normal 5-9 [facility] Comment on above: Performed By: #### U AMIC #### [facility] [address] [place] [address] Dr. Marvin Reis RBC NONE SEEN Abnormal 0-2 [facility] Comment on above: Performed By: #### U AMIC #### [facility] [address] [place] [address] Dr. Marvin Reis SPEC GRAVITY 1.015 Normal 1.005-<=1.025 [facility] Comment on above: Performed By: #### U AMIC #### [facility] [address] [place] [address] Dr. Marvin Reis UA PROTEIN Negative Normal NEGATIVE/ TRACE [facility] Comment on above: Performed By: #### U AMIC #### [facility] [address] [place] [address] Dr. Marvin Reis Urobilinogen Qn (U) 0.2 {Robbie'U}/dL Normal 0.2 - 1. 0 [facility] Comment on above: Performed By: #### U AMIC #### [facility] [address] [place] [address] Dr. Marvin Reis WBC 10-20 Abnormal NONE SEEN [facility] Comment on above: Performed By: #### U AMIC #### [facility] [address] [place] [address] Dr. Marvin Reis CULTURE URINEon 12-05-2022 CULTURE [...] Trimethoprim/Sulfamet hoxazole <=20 S F Normal [facility] Comment on above: Performed By: #### U RCX #### [facility] [address] [place] [address] Dr. Marvin Reis CREATININEon 12-03-2022 Creatinine [Mass/Vol] 0.88 mg/dL Normal 0.70-1.30 [facility] Comment on above: Performed By: #### U RCX #### [facility] [address] [place] [address] Dr. Marvin Reis EGFR-AF MONEGASQUE >60 Normal >=60 [facility] Comment on above: Performed By: #### U RCX #### [facility] [address] [place] [address] Dr. Marvin Reis EGFR-NON AF MONEGASQUE >60 Normal >=60 [facility] Comment on above: Performed By: #### U RCX #### [facility] [address] [place] [address] ABDOMEN WO/W CONon [...] ELENO PARKER Date: 2022-12-03 14:51 Normal [facility] UA RANDOM W/MICROSCOPICon BACTERIA TRACE Abnormal NONE SEEN [facility] Comment on above: Performed By: #### U RCX #### [facility] [address] [place] [address] Dr. Marvin Reis Bilirubin Ql (U) Negative Normal NEGATIVE [facility] Comment on above: Performed By: #### U RCX #### [facility] [address] [place] [address] Dr. Marvin Reis CAST NONE SEEN Normal NONE SEEN [facility] Comment on above: Performed By: #### U RCX #### [facility] [address] [place] [address] Dr. Marvin Reis Clarity (U) CLEAR Normal CLEAR [facility] Comment on above: Performed By: #### U RCX #### [facility] [address] [place] [address] Dr. Marvin Reis Color (U) LT. YELLOW Normal YELLOW [facility] Comment on above: Performed By: #### U RCX #### [facility] [address] [place] [address] Dr. Marvin Reis Crystals LM Nom (Urine sed) NONE SEEN Normal NONE SEEN [facility] Comment on above: Performed By: #### U RCX #### [facility] [address] [place] [address] Dr. Marvin Reis Epithelial cells LM Ql (Urine sed) RARE Normal NONE SEEN /RARE [facility] Comment on above: Performed By: #### U RCX #### [facility] [address] [address] [address] Marvin Reis Glucose Ql (U) Negative Normal NEGATIVE [facility] Comment on above: Performed By: #### U RCX #### [facility] [address] [address] [address] Marvin Reis Hemoglobin Ql (U) TRACE-INTACT Abnormal NEGATIVE [facility] Comment on above: Performed By: #### U RCX #### [facility] [address] [address] [address] Marvin Reis Ketones Ql (U) Negative Normal NEGATIVE [facility] Comment on above: Performed By: #### U RCX #### [facility] [address] [place] [address] Dr. Marvin Reis LEUKOCYTES TRACE Abnormal NEGATIVE [facility] Comment on above: Performed By: #### U RCX #### [facility] [address] [address] [address] Marvin Reis MUCOUS TRACE Abnormal NONE SEEN [facility] Comment on above: Performed By: #### U RCX #### [facility] [address] [place] [address] Dr. Marvin Reis Nitrite Ql (U) Negative Normal NEGATIVE [facility] Comment on above: Performed By: #### U RCX #### [facility] [address] [address] [address] Marvin Reis pH (U) 5.0 [pH] Normal 5-9 [facility] Comment on above: Performed By: #### U RCX #### [facility] [address] [address] [address] Marvin Reis RBC 0-2 Normal 0-2 [facility] Comment on above: Performed By: #### U RCX #### [facility] [address] [place] [address] Dr. Marvin Reis SPEC GRAVITY 1.010 Normal 1.005-<=1.025 [facility] Comment on above: Performed By: #### U RCX #### [facility] [address] [place], [place] [address] Dr. Marvin Reis UA PROTEIN TRACE Normal NEGATIVE/ TRACE [facility] Comment on above: Performed By: #### U RCX #### [facility] [address] [place], [place] [address] Dr. Marvin Reis Urobilinogen Qn (U) 0.2 {Robbie'U}/dL Normal 0.2 - 1. 0 [facility] Comment on above: Performed By: #### U RCX #### [facility] [address] [address] [address] Marvin Reis WBC 2-5 Abnormal NONE SEEN [facility] Comment on above: Performed By: #### U RCX #### [facility] [address] [address] ABD/PELVIS WO CONon [...] MAGY COMER Date: 2022-11-20 14:51 Normal [facility] CULTURE URINEon 11-11-2022 CULTURE URINE Culture Observations : GUSTABO TO FOLLOW. Isolate 1 Enterobacter aerogenes >100,000 cfu/mL of Normal [facility] Comment on above: Performed By: #### U RCX #### [facility] [address] [place] [address] Dr. Marvin Reis UA RANDOM W/MICROSCOPICon BACTERIA SMALL Abnormal NONE SEEN [facility] Comment on above: Performed By: #### U AMIC #### [facility] [address] [place] [address] Dr. Marvin Reis Bilirubin Ql (U) Negative Normal NEGATIVE [facility] Comment on above: Performed By: #### U AMIC #### [facility] [address] [place] [address] Dr. Marvin Reis CAST NONE SEEN Normal NONE SEEN [facility] Comment on above: Performed By: #### U AMIC #### [facility] [address] [place] [address] Dr. Marvin Reis Clarity (U) CLOUDY Abnormal CLEAR [facility] Comment on above: Performed By: #### U AMIC #### [facility] [address] [place] [address] Dr. Marvin Reis Color (U) LT. YELLOW Normal YELLOW [facility] Comment on above: Performed By: #### U AMIC #### [facility] [address] [address] [address] Marvin Reis Crystals LM Nom (Urine sed) NONE SEEN Normal NONE SEEN [facility] Comment on above: Performed By: #### U AMIC #### [facility] [address] [address] [address] Marvin Reis Epithelial cells LM Ql (Urine sed) NONE SEEN Normal NONE SEEN /RARE [facility] Comment on above: Performed By: #### U AMIC #### [facility] [address] [address] [address] Marvin Reis Glucose Ql (U) Negative Normal NEGATIVE [facility] Comment on above: Performed By: #### U AMIC #### [facility] [address] [place] [address] Dr. Marvin Reis Hemoglobin Ql (U) TRACE-INTACT Abnormal NEGATIVE [facility] Comment on above: Performed By: #### U AMIC #### [facility] [address] [address] [address] Marvin Reis Ketones Ql (U) Negative Normal NEGATIVE [facility] Comment on above: Performed By: #### U AMIC #### [facility] [address] [address] [address] Marvin Reis LEUKOCYTES LARGE Abnormal NEGATIVE [facility] Comment on above: Performed By: #### U AMIC #### [facility] [address] [address] [address] Marvin Reis MUCOUS NONE SEEN Normal NONE SEEN [facility] Comment on above: Performed By: #### U AMIC #### [facility] [address] [place] [address] Dr. Marvin Reis Nitrite Ql (U) Positive Abnormal NEGATIVE [facility] Comment on above: Performed By: #### U AMIC #### [facility] [address] [place] [address] Dr. Marvin Reis pH (U) 5.5 [pH] Normal 5-9 [facility] Comment on above: Performed By: #### U AMIC #### [facility] [address] [place] [address] Dr. Marvin Reis RBC 0-2 Normal 0-2 [facility] Comment on above: Performed By: #### U AMIC #### [facility] [address] [place] [address] Dr. Marvin Reis SPEC GRAVITY 1.015 Normal 1.005-<=1.025 [facility] Comment on above: Performed By: #### U AMIC #### [facility] [address] [place] [address] Dr. Marvin Reis UA PROTEIN Negative Normal NEGATIVE/ TRACE [facility] Comment on above: Performed By: #### U AMIC #### [facility] [address] [place] [address] Dr. Marvin Reis Urobilinogen Qn (U) 0.2 {Robbie'U}/dL Normal 0.2 - 1. 0 [facility] Comment on above: Performed By: #### U AMIC #### [facility] [address] [place] [address] Dr. Marvin Reis WBC 10-20 Abnormal NONE SEEN [facility] Comment on above: Performed By: #### U AMIC #### [facility] [address] [place] [address] Dr. Marvin Reis CULTURE URINEon 10-24-2022 CULTURE [...] Trimethoprim/Sulfamet hoxazole <=20 S F Normal [facility] Comment on above: Performed By: #### U RCX #### [facility] [address] [place] [address] Dr. Marvin Reis UA RANDOM W/MICROSCOPICon BACTERIA LARGE Abnormal NONE SEEN [facility] Comment on above: Performed By: #### U AMIC #### [facility] [address] [address] [address] Marvin Reis Bilirubin Ql (U) Negative Normal NEGATIVE [facility] Comment on above: Performed By: #### U AMIC #### [facility] [address] [address] [address] Marvin Reis CAST NONE SEEN Normal NONE SEEN [facility] Comment on above: Performed By: #### U AMIC #### [facility] [address] [address] [address] Marvin Reis Clarity (U) SL CLOUDY Abnormal CLEAR [facility] Comment on above: Performed By: #### U AMIC #### [facility] [address] [address] [address] Marvin Reis Color (U) YELLOW Normal YELLOW [facility] Comment on above: Performed By: #### U AMIC #### [facility] [address] [address] [address] Marvin Reis Crystals LM Nom (Urine sed) NONE SEEN Normal NONE SEEN [facility] Comment on above: Performed By: #### U AMIC #### [facility] [address] [address] [address] Marvin Reis Epithelial cells LM Ql (Urine sed) FEW Abnormal NONE SEEN /RARE [facility] Comment on above: Performed By: #### U AMIC #### [facility] [address] [address] [address] Marvin Reis Glucose Ql (U) Negative Normal NEGATIVE [facility] Comment on above: Performed By: #### U AMIC #### [facility] [address] [address] [address] Marvin Reis Hemoglobin Ql (U) TRACE-INTACT Abnormal NEGATIVE [facility] Comment on above: Performed By: #### U AMIC #### [facility] [address] [address] [address] Marvin Reis Ketones Ql (U) Negative Normal NEGATIVE [facility] Comment on above: Performed By: #### U AMIC #### [facility] [address] [address] [address] Marvin Reis LEUKOCYTES LARGE Abnormal NEGATIVE [facility] Comment on above: Performed By: #### U AMIC #### [facility] [address] [address] [address] Marvin Reis MUCOUS NONE SEEN Normal NONE SEEN [facility] Comment on above: Performed By: #### U AMIC #### [facility] [address] [address] [address] Marvin Reis Nitrite Ql (U) Negative Normal NEGATIVE [facility] Comment on above: Performed By: #### U AMIC #### [facility] [address] [address] [address] Marvin Reis pH (U) 5.0 [pH] Normal 5-9 [facility] Comment on above: Performed By: #### U AMIC #### [facility] [address] [address] [address] Marvin Reis RBC 5-10 Abnormal 0-2 [facility] Comment on above: Performed By: #### U AMIC #### [facility] [address] [address] [address] Marvin Reis SPEC GRAVITY 1.010 Normal 1.005-<=1.025 [facility] Comment on above: Performed By: #### U AMIC #### [facility] [address] [place] [address] Dr. Marvin Reis UA PROTEIN Negative Normal NEGATIVE/ TRACE [facility] Comment on above: Performed By: #### U AMIC #### [facility] [address] [place] [address] Dr. Marvin Reis Urobilinogen Qn (U) 0.2 {Robbie'U}/dL Normal 0.2 - 1. 0 [facility] Comment on above: Performed By: #### U AMIC #### [facility] [address] [address] [address] Marvin Reis WBC 50-75 Abnormal NONE SEEN [facility] Comment on above: Performed By: #### U AMIC #### [facility] [address] [address] [address] Marvin Reis CULTURE URINEon 10-01-2022 CULTURE URINE Culture Observations : NO GROWTH. Normal [facility] Comment on above: Performed By: #### U AMIC #### [facility] [address] [address] [address] Marvin Reis UA RANDOM W/MICROSCOPICon BACTERIA SMALL Abnormal NONE SEEN [facility] Comment on above: Performed By: #### U AMIC #### [facility] [address] [address] [address] Marvin Reis Bilirubin Ql (U) Negative Normal NEGATIVE [facility] Comment on above: Performed By: #### U AMIC #### [facility] [address] [address] [address] Marvin Reis CAST SEEN Abnormal NONE SEEN [facility] Comment on above: Performed By: #### U AMIC #### [facility] [address] [address] [address] Marvin Reis Clarity (U) CLEAR Normal CLEAR [facility] Comment on above: Performed By: #### U AMIC #### [facility] [address] [address] [address] Marvin Reis Color (U) LT. YELLOW Normal YELLOW [facility] Comment on above: Performed By: #### U AMIC #### [facility] [address] [address] [address] Marvin Reis Crystals LM Nom (Urine sed) NONE SEEN Normal NONE SEEN [facility] Comment on above: Performed By: #### U AMIC #### [facility] [address] [address] [address] Marvin Reis Epithelial cells LM Ql (Urine sed) FEW Abnormal NONE SEEN /RARE [facility] Comment on above: Performed By: #### U AMIC #### [facility] [address] [place] [address] Dr. Marvin Reis Glucose Ql (U) Negative Normal NEGATIVE [facility] Comment on above: Performed By: #### U AMIC #### [facility] [address] [place] [address] Dr. Marvin Reis Hemoglobin Ql (U) TRACE-INTACT Abnormal NEGATIVE [facility] Comment on above: Performed By: #### U AMIC #### [facility] [address] [address] [address] Marvin Reis HYALINE CAST FEW Normal [facility] Comment on above: Performed By: #### U AMIC #### [facility] [address] [place] [address] Dr. Marvin Reis Ketones Ql (U) Negative Normal NEGATIVE [facility] Comment on above: Performed By: #### U AMIC #### [facility] [address] [place] [address] Dr. Marvin Reis LEUKOCYTES MODERATE Abnormal NEGATIVE [facility] Comment on above: Performed By: #### U AMIC #### [facility] [address] [place] [address] Dr. Marvin Reis MUCOUS SMALL Abnormal NONE SEEN [facility] Comment on above: Performed By: #### U AMIC #### [facility] [address] [place] [address] Dr. Marvin Reis Nitrite Ql (U) Negative Normal NEGATIVE [facility] Comment on above: Performed By: #### U AMIC #### [facility] [address] [place] [address] Dr. Marvin Reis pH (U) 5.5 [pH] Normal 5-9 [facility] Comment on above: Performed By: #### U AMIC #### [facility] [address] [place] [address] Dr. Marvin Reis RBC 0-2 Normal 0-2 [facility] Comment on above: Performed By: #### U AMIC #### [facility] [address] [place] [address] Dr. Marvin Reis SPEC GRAVITY 1.020 Normal 1.005-<=1.025 [facility] Comment on above: Performed By: #### U AMIC #### [facility] [address] [place] [address] Dr. Marvin Reis UA PROTEIN Negative Normal NEGATIVE/ TRACE [facility] Comment on above: Performed By: #### U AMIC #### [facility] [address] [address] [address] Marvin Reis Urobilinogen Qn (U) 0.2 {Robbie'U}/dL Normal 0.2 - 1. 0 [facility] Comment on above: Performed By: #### U AMIC #### [facility] [address] [address] [address] Marvin Reis WBC 10-20 Abnormal NONE SEEN [facility] Comment on above: Performed By: #### U AMIC #### [facility] [address] [address] [address] Marvin Reis CULTURE URINEon 09-26-2022 CULTURE [...] Trimethoprim/Sulfamet hoxazole <=20 S F Normal [facility] Comment on above: Performed By: #### U RCX #### [facility] [address] [place] [address] Dr. Marvin Reis CBC W MANUAL DIFFon 09-25-20 ANISOCYTOSIS SLIGHT Normal [facility] Comment on above: Performed By: #### U RCX #### [facility] [address] [place] [address] Dr. Marvin Reis ATYPICAL LYMPH # Normal [facility] Comment on above: Performed By: #### U RCX #### [facility] [address] [place] [address] Dr. Marvin Reis ATYPICAL LYMPH % Normal [facility] Comment on above: Performed By: #### U RCX #### [facility] [address] [place] [address] Dr. Marvin Reis BAND # Normal 0.0-0.3 [facility] Comment on above: Performed By: #### U RCX #### [facility] [address] [place] [address] Dr. Marvin Reis BAND % Normal 0-5 [facility] Comment on above: Performed By: #### U RCX #### [facility] [address] [place] [address] Dr. Marvin Reis BASOM # 0.00 103/ul Normal 0.00-0.10 [facility] Comment on above: Performed By: #### U RCX #### [facility] [address] [place] [address] Dr. Marvin Reis BASOM % 0.0 % Critically low 0.2-2.0 [facility] Comment on above: Performed By: #### U RCX #### [facility] [address] [place] [address] Dr. Marvin Reis BLAST # Normal [facility] Comment on above: Performed By: #### U RCX #### [facility] [address] [place] [address] Dr. Marvin Reis BLAST % Normal [facility] Comment on above: Performed By: #### U RCX #### [facility] [address] [place] [address] Dr. Marvin Reis CORRECTED WBC Normal 4.0-11.0 [facility] Comment on above: Performed By: #### U RCX #### [facility] [address] [place] [address] Dr. Marvin Reis EOS # 0.00 103/ul Normal 0.00-0.70 [facility] Comment on above: Performed By: #### U RCX #### [facility] [address] [place] [address] Dr. Marvin Reis EOS% 0.0 % Critically low 0.9-7.0 [facility] Comment on above: Performed By: #### U RCX #### [facility] [address] [place] [address] Dr. Marvin Reis HCT 32.1 % Critically low 42.0-54.0 [facility] Comment on above: Performed By: #### U RCX #### [facility] [address] [address] [address] Marvin Reis HGB 10.2 g/dl Critically low 14.0-18.0 [facility] Comment on above: Performed By: #### U RCX #### [facility] [address] [address] [address] Marvin Reis LYMPHM # 0.76 103/ul Critically low 1.20-3.80 [facility] Comment on above: Performed By: #### U RCX #### [facility] [address] [place] [address] Dr. Marvin Reis LYMPHM% 14.0 % Critically low 20.5-60.0 [facility] Comment on above: Performed By: #### U RCX #### [facility] [address] [place] [address] Dr. Marvin Reis MCH 26.5 pg Normal 25.9-34.0 [facility] Comment on above: Performed By: #### U RCX #### [facility] [address] [place] [address] Dr. Marvin Reis MCHC 31.8 g/dl Normal 29.9-35.2 [facility] Comment on above: Performed By: #### U RCX #### [facility] [address] [place] [address] Dr. Marvin Reis MCV 83.4 fL Normal 80.0-94.0 [facility] Comment on above: Performed By: #### U RCX #### [facility] [address] [address] [address] Marvin Reis METAMYELOCYTE # Normal [facility] Comment on above: Performed By: #### U RCX #### [facility] [address] [place] [address] Dr. Marvin Reis METAMYELOCYTE % Normal [facility] Comment on above: Performed By: #### U RCX #### [facility] [address] [address] [address] Marvin Reis MONOM# 0.27 103/ul Critically low 0.30-0.80 [facility] Comment on above: Performed By: #### U RCX #### [facility] [address] [address] [address] Marvin Reis MONOM% 5.0 % Normal 1.7-12.0 [facility] Comment on above: Performed By: #### U RCX #### [facility] [address] [address] [address] Marvin Reis MPV 9.8 fL Normal 9.5-13.5 [facility] Comment on above: Performed By: #### U RCX #### [facility] [address] [place] [address] Dr. Marvin Reis MYELOCYTE # Normal [facility] Comment on above: Performed By: #### U RCX #### [facility] [address] [address] [address] Marvin Reis MYELOCYTE % Normal [facility] Comment on above: Performed By: #### U RCX #### [facility] [address] [place] [address] Dr. Marvin Reis NRBC Normal [facility] Comment on above: Performed By: #### U RCX #### [facility] [address] [place] [address] Dr. Marvin Reis PLT 78 103/ul Critically low 150-450 [facility] Comment on above: Performed By: #### U RCX #### [facility] [address] [address] [address] Marvin Reis RBC 3.85 106/ul Critically low 4.70-6.10 [facility] Comment on above: Performed By: #### U RCX #### [facility] [address] [place] [address] Dr. Marvin Reis RDW 15.8 % Critically high 11.0-15.0 [facility] Comment on above: Performed By: #### U RCX #### [facility] [address] [address] [address] Marvin Reis SEG # 4.37 103/ul Normal 1.40-6.50 [facility] Comment on above: Performed By: #### U RCX #### [facility] [address] [address] [address] Marvin Reis SEG % 81.0 % Critically high 43.0-75.0 [facility] Comment on above: Performed By: #### U RCX #### [facility] [address] [place] [address] Dr. Marvin Reis WBC 5.4 103/ul Normal 4.0-11.0 [facility] Comment on above: Performed By: #### U RCX #### [facility] [address] [place] [address] Dr. Marvin Reis CRPon 09-25-2022 CRP 8.9 mg/dL Critically high <=1.0 [facility] Comment on above: Performed By: #### U AMIC #### [facility] [address] [place] [address] Dr. Marvin Reis LACTATE/LACTIC ACIDon 2021 Lactate [Moles/Vol] 0.9 mmol/L Normal 0.4-1.9 [facility] Comment on above: Performed By: #### U RCX #### [facility] [address] [place] [address] Dr. Marvin Reis PROF 14(COMP METB)on 022 Albumin [Mass/Vol] 2.6 g/dL Critically low 3.4-5.0 [facility] Comment on above: Performed By: #### U AMIC #### [facility] [address] [address] [address] Marvin Reis Albumin/Globulin [Mass ratio] 0.7 {ratio} Normal [facility] Comment on above: Performed By: #### U AMIC #### [facility] [address] [address] [address] Marvin Reis ALP [Catalytic activity/Vol] 75 U/L Normal 46-116 [facility] Comment on above: Performed By: #### U AMIC #### [facility] [address] [address] [address] Marvin Reis ALT [Catalytic activity/Vol] 23 U/L Normal 16-63 [facility] Comment on above: Performed By: #### U AMIC #### [facility] [address] [address] [address] Marvin Reis Anion gap [Moles/Vol] 11.8 mmol/L Normal [facility] Comment on above: Performed By: #### U AMIC #### [facility] [address] [address] [address] Marvin Reis AST [Catalytic activity/Vol] 21 U/L Normal 15-37 [facility] Comment on above: Performed By: #### U AMIC #### [facility] [facility] [address] [address] [address] Marvin Reis Bilirubin [Mass/Vol] 0.8 mg/dL Normal 0.2-1.0 [facility] Comment on above: Performed By: #### U AMIC #### [facility] [address] [address] [address] Marvin Reis Calcium [Mass/Vol] 8.7 mg/dL Normal 8.5-10.1 [facility] Comment on above: Performed By: #### U AMIC #### [facility] [address] [address] [address] Marvin Reis Chloride [Moles/Vol] 105 mmol/L Normal 98-107 [facility] Comment on above: Performed By: #### U AMIC #### [facility] [address] [address] [address] Marvin Reis CO2 [Moles/Vol] 26.1 mmol/L Normal 21.0-32.0 [facility] Comment on above: Performed By: #### U AMIC #### [facility] [address] [address] [address] Marvin Reis Creatinine [Mass/Vol] 0.88 mg/dL Normal 0.70-1.30 [facility] Comment on above: Performed By: #### U AMIC #### [facility] [address] [address] [address] Marvin Reis EGFR-AF MONEGASQUE >60 Normal >=60 [facility] Comment on above: Performed By: #### U AMIC #### [facility] [address] [address] [address] Marvin Reis EGFR-NON AF MONEGASQUE >60 Normal >=60 [facility] Comment on above: Performed By: #### U AMIC #### [facility] [address] [address] [address] Marvin Reis Globulin (S) [Mass/Vol] 3.7 g/dL Normal [facility] Comment on above: Performed By: #### U AMIC #### [facility] [address] [address] [address] Marvin Reis Glucose [Mass/Vol] 93 mg/dL Normal 74-106 [facility] Comment on above: Performed By: #### U AMIC #### [facility] [address] [address] [address] Marvin Reis Potassium [Moles/Vol] 3.9 mmol/L Normal 3.5-5.1 [facility] Comment on above: Performed By: #### U AMIC #### [facility] [address] [address] [address] Marvin Reis Protein [Mass/Vol] 6.3 g/dL Critically low 6.4-8.2 [facility] Comment on above: Performed By: #### U AMIC #### [facility] [address] [address] [address] Marvin Reis Sodium [Moles/Vol] 139 mmol/L Normal 136-145 [facility] Comment on above: Performed By: #### U AMIC #### [facility] [address] [address] [address] Marvin Reis Urea nitrogen [Mass/Vol] 20.0 mg/dL Critically high 7.0-18.0 [facility] Comment on above: Performed By: #### U AMIC #### [facility] [address] [place] [address] Dr. Marvin Reis Urea nitrogen/Creatinine [Mass ratio] 22.7 mg/mg Normal [facility] Comment on above: Performed By: #### U AMIC #### [facility] [address] [place] [address] Dr. Marvin Reis SED RATE WESTERGRENon 2021 SED RATE 49 mm/hr Critically high <=20 [facility] Comment on above: Performed By: #### U AMIC #### [facility] [address] [place] [address] Dr. Marvin Reis CBC W MANUAL DIFFon 09-24-20 ATYPICAL LYMPH # Normal [facility] Comment on above: Performed By: #### U RCX #### [facility] [address] [place] [address] Dr. Marvin Reis ATYPICAL LYMPH % Normal [facility] Comment on above: Performed By: #### U RCX #### [facility] [address] [place] [address] Dr. Marvin Reis BAND # Normal 0.0-0.3 [facility] Comment on above: Performed By: #### U RCX #### [facility] [address] [place] [address] Dr. Marvin Reis BAND % Normal 0-5 [facility] Comment on above: Performed By: #### U RCX #### [facility] [address] [place] [address] Dr. Marvin Reis BASOM # 0.00 103/ul Normal 0.00-0.10 [facility] Comment on above: Performed By: #### U RCX #### [facility] [address] [address] [address] Marvin Reis BASOM % 0.0 % Critically low 0.2-2.0 [facility] Comment on above: Performed By: #### U RCX #### [facility] [address] [place] [address] Dr. Marvin Reis BLAST # Normal [facility] Comment on above: Performed By: #### U RCX #### [facility] [address] [address] [address] Marvin Reis BLAST % Normal [facility] Comment on above: Performed By: #### U RCX #### [facility] [address] [place] [address] Dr. Marvin Reis CORRECTED WBC Normal 4.0-11.0 [facility] Comment on above: Performed By: #### U RCX #### [facility] [address] [address] [address] Marvin Reis EOS # 0.00 103/ul Normal 0.00-0.70 [facility] Comment on above: Performed By: #### U RCX #### [facility] [address] [place] [address] Dr. Marvin Reis EOS% 0.0 % Critically low 0.9-7.0 [facility] Comment on above: Performed By: #### U RCX #### [facility] [address] [place] [address] Dr. Marvin Reis HCT 33.5 % Critically low 42.0-54.0 [facility] Comment on above: Performed By: #### U RCX #### [facility] [address] [place] [address] Dr. Marvin Reis HGB 10.9 g/dl Critically low 14.0-18.0 [facility] Comment on above: Performed By: #### U RCX #### [facility] [address] [place] [address] Dr. Marvin Reis LYMPHM # 0.52 103/ul Critically low 1.20-3.80 [facility] Comment on above: Performed By: #### U RCX #### [facility] [address] [place] [address] Dr. Marvin Reis LYMPHM% 4.0 % Critically low 20.5-60.0 [facility] Comment on above: Performed By: #### U RCX #### [facility] [address] [place] [address] Dr. Mravin Reis MCH 27.2 pg Normal 25.9-34.0 [facility] Comment on above: Performed By: #### U RCX #### [facility] [address] [place] [address] Dr. Marvin Reis MCHC 32.5 g/dl Normal 29.9-35.2 [facility] Comment on above: Performed By: #### U RCX #### [facility] [address] [address] [address] Marvin Reis MCV 83.5 fL Normal 80.0-94.0 [facility] Comment on above: Performed By: #### U RCX #### [facility] [address] [place] [address] Dr. Marvin Reis METAMYELOCYTE # Normal [facility] Comment on above: Performed By: #### U RCX #### [facility] [address] [place] [address] Dr. Marvin Reis METAMYELOCYTE % Normal [facility] Comment on above: Performed By: #### U RCX #### [facility] [address] [place] [address] Dr. Marvin Reis MONOM# 0.39 103/ul Normal 0.30-0.80 [facility] Comment on above: Performed By: #### U RCX #### [facility] [address] [place] [address] Dr. Marvin Reis MONOM% 3.0 % Normal 1.7-12.0 [facility] Comment on above: Performed By: #### U RCX #### [facility] [address] [place] [address] Dr. Marvin Reis MPV 10.5 fL Normal 9.5-13.5 [facility] Comment on above: Performed By: #### U RCX #### [facility] [address] [place] [address] Dr. Marvin Reis MYELOCYTE # Normal [facility] Comment on above: Performed By: #### U RCX #### [facility] [address] [place] [address] Dr. Marvin Reis MYELOCYTE % Normal [facility] Comment on above: Performed By: #### U RCX #### [facility] [address] [address] [address] Marvin Reis NRBC Normal [facility] Comment on above: Performed By: #### U RCX #### [facility] [address] [address] [address] Marvin Reis PLT 96 103/ul Critically low 150-450 [facility] Comment on above: Performed By: #### U RCX #### [facility] [address] [address] [address] Marvin Reis RBC 4.01 106/ul Critically low 4.70-6.10 [facility] Comment on above: Performed By: #### U RCX #### [facility] [address] [address] [address] Marvin Reis RDW 15.8 % Critically high 11.0-15.0 [facility] Comment on above: Performed By: #### U RCX #### [facility] [address] [address] [address] Marvin Reis SEG # 12.00 103/ul Critically high 1.40-6.50 [facility] Comment on above: Performed By: #### U RCX #### [facility] [address] [address] [address] Marvin Reis SEG % 93.0 % Critically high 43.0-75.0 [facility] Comment on above: Performed By: #### U RCX #### [facility] [address] [address] [address] Marvin Reis WBC 12.9 103/ul Critically high 4.0-11.0 [facility] Comment on above: Performed By: #### U RCX #### [facility] [address] [address] [address] Marvin Reis CRPon 09-24-2022 CRP 8.4 mg/dL Critically high <=1.0 [facility] Comment on above: Performed By: #### U AMIC #### [facility] [address] [address] [address] Marvin Reis LACTATE/LACTIC ACIDon 2021 Lactate [Moles/Vol] 2.2 mmol/L Critically high 0.4-1.9 [facility] Comment on above: Performed By: #### L ACT #### [facility] [address] [address] [address] Marvin Reis PROF 14(COMP METB)on 022 Albumin [Mass/Vol] 2.8 g/dL Critically low 3.4-5.0 [facility] Comment on above: Performed By: #### U AMIC #### [facility] [address] [place] [address] Dr. Marvin Reis Albumin/Globulin [Mass ratio] 0.7 {ratio} Normal [facility] Comment on above: Performed By: #### U AMIC #### [facility] [address] [place] [address] Dr. Marvin Reis ALP [Catalytic activity/Vol] 80 U/L Normal 46-116 [facility] Comment on above: Performed By: #### U AMIC #### [facility] [address] [place] [address] Dr. Marvin Reis ALT [Catalytic activity/Vol] 20 U/L Normal 16-63 [facility] Comment on above: Performed By: #### U AMIC #### [facility] [address] [place] [address] Dr. Marvin Reis Anion gap [Moles/Vol] 12.3 mmol/L Normal [facility] Comment on above: Performed By: #### U AMIC #### [facility] [address] [place] [address] Dr. Marvin Reis AST [Catalytic activity/Vol] 17 U/L Normal 15-37 [facility] Comment on above: Performed By: #### U AMIC #### [facility] [address] [place] [address] Dr. Marvin Reis Bilirubin [Mass/Vol] 1.0 mg/dL Normal 0.2-1.0 [facility] Comment on above: Performed By: #### U AMIC #### [facility] [address] [address] [address] Marvin Reis Calcium [Mass/Vol] 9.0 mg/dL Normal 8.5-10.1 [facility] Comment on above: Performed By: #### U AMIC #### [facility] [address] [address] [address] Marvin Reis Chloride [Moles/Vol] 106 mmol/L Normal 98-107 [facility] Comment on above: Performed By: #### U AMIC #### [facility] [address] [address] [address] Marvin Reis CO2 [Moles/Vol] 25.8 mmol/L Normal 21.0-32.0 [facility] Comment on above: Performed By: #### U AMIC #### [facility] [address] [place] [address] Dr. Marvin Reis Creatinine [Mass/Vol] 1.08 mg/dL Normal 0.70-1.30 [facility] Comment on above: Performed By: #### U AMIC #### [facility] [address] [address] [address] Marvin Reis EGFR-AF MONEGASQUE >60 Normal >=60 [facility] Comment on above: Performed By: #### U AMIC #### [facility] [address] [address] [address] Marvin Reis EGFR-NON AF MONEGASQUE >60 Normal >=60 [facility] Comment on above: Performed By: #### U AMIC #### [facility] [address] [address] [address] Marvin Reis Globulin (S) [Mass/Vol] 3.8 g/dL Normal [facility] Comment on above: Performed By: #### U AMIC #### [facility] [address] [address] [address] Marvin Reis Glucose [Mass/Vol] 117 mg/dL Critically high 74-106 [facility] Comment on above: Performed By: #### U AMIC #### [facility] [address] [address] [address] Marvin Reis Potassium [Moles/Vol] 4.1 mmol/L Normal 3.5-5.1 [facility] Comment on above: Performed By: #### U AMIC #### [facility] [address] [address] [address] Marvin Reis Protein [Mass/Vol] 6.6 g/dL Normal 6.4-8.2 [facility] Comment on above: Performed By: #### U AMIC #### [facility] [address] [address] [address] Marvin Reis Sodium [Moles/Vol] 140 mmol/L Normal 136-145 [facility] Comment on above: Performed By: #### U AMIC #### [facility] [address] [place] [address] Dr. Marvin Reis Urea nitrogen [Mass/Vol] 23.0 mg/dL Critically high 7.0-18.0 [facility] Comment on above: Performed By: #### U AMIC #### [facility] [address] [place] [address] Dr. Marvin Reis Urea nitrogen/Creatinine [Mass ratio] 21.3 mg/mg Normal [facility] Comment on above: Performed By: #### U AMIC #### [facility] [address] [place] [address] Dr. Marvin Reis SED RATE [facility] 2021 SED RATE 51 mm/hr Critically high <=20 [facility] Comment on above: Performed By: #### U RCX #### [facility] [address] [place] [address] Dr. Marvin Reis UA RANDOMon 09-24-2022 Bilirubin Ql (U) Negative Normal NEGATIVE [facility] Comment on above: Performed By: #### U AMIC #### [facility] [address] [place] [address] Dr. Marvin Reis Clarity (U) CLEAR Normal CLEAR [facility] Comment on above: Performed By: #### U AMIC #### [facility] [address] [place] [address] Dr. Marvin Reis Color (U) LT. YELLOW Normal YELLOW [facility] Comment on above: Performed By: #### U AMIC #### [facility] [address] [address] [address] Marvin Reis Glucose Ql (U) Negative Normal NEGATIVE [facility] Comment on above: Performed By: #### U AMIC #### [facility] [address] [address] [address] Marvin Reis Hemoglobin Ql (U) LARGE Abnormal NEGATIVE [facility] Comment on above: Performed By: #### U AMIC #### [facility] [address] [address] [address] Marvin Reis Ketones Ql (U) Negative Normal NEGATIVE [facility] Comment on above: Performed By: #### U AMIC #### [facility] [address] [place] [address] Dr. Marvin Reis LEUKOCYTES MODERATE Abnormal NEGATIVE [facility] Comment on above: Performed By: #### U AMIC #### [facility] [address] [place] [address] Dr. Marvin Reis Nitrite Ql (U) Negative Normal NEGATIVE [facility] Comment on above: Performed By: #### U AMIC #### [facility] [address] [address] [address] Marvin Reis pH (U) 5.5 [pH] Normal 5-9 [facility] Comment on above: Performed By: #### U AMIC #### [facility] [address] [address] [address] Marvin Reis SPEC GRAVITY 1.020 Normal 1.005-<=1.025 [facility] Comment on above: Performed By: #### U AMIC #### [facility] [address] [place] [address] Dr. Marvin Reis UA PROTEIN Negative Normal NEGATIVE/ TRACE [facility] Comment on above: Performed By: #### U AMIC #### [facility] [address] [place] [address] Dr. Marvin Reis Urobilinogen Qn (U) 0.2 {Robbie'U}/dL Normal 0.2 - 1. 0 [facility] Comment on above: Performed By: #### U AMIC #### [facility] [address] [place] [address] Dr. Marvin Reis CULTURE URINEon 09-13-2022 CULTURE [...] F Oxacillin >=4 R F Normal [facility] Comment on above: Performed By: #### U RCX #### [facility] [address] [place] [address] Dr. Marvin Reis UA RANDOM W/MICROSCOPICon BACTERIA TRACE Abnormal NONE SEEN [facility] Comment on above: Performed By: #### U AMIC #### [facility] [address] [place] [address] Dr. Marvin eRis Bilirubin Ql (U) Negative Normal NEGATIVE [facility] Comment on above: Performed By: #### U AMIC #### [facility] [address] [place] [address] Dr. Marvin Reis CAST NONE SEEN Normal NONE SEEN [facility] Comment on above: Performed By: #### U AMIC #### [facility] [address] [place] [address] Dr. Marvin Reis Clarity (U) CLEAR Normal CLEAR [facility] Comment on above: Performed By: #### U AMIC #### [facility] [address] [place] [address] Dr. Marvin Reis Color (U) LT. YELLOW Normal YELLOW [facility] Comment on above: Performed By: #### U AMIC #### [facility] [address] [address] [address] Marvin Reis Crystals LM Nom (Urine sed) NONE SEEN Normal NONE SEEN [facility] Comment on above: Performed By: #### U AMIC #### [facility] [address] [address] [address] Marvin Reis Epithelial cells LM Ql (Urine sed) FEW Abnormal NONE SEEN /RARE [facility] Comment on above: Performed By: #### U AMIC #### [facility] [address] [address] [address] Marvin Reis Glucose Ql (U) Negative Normal NEGATIVE [facility] Comment on above: Performed By: #### U AMIC #### [facility] [address] [address] [address] Marvin Reis Hemoglobin Ql (U) Negative Normal NEGATIVE [facility] Comment on above: Performed By: #### U AMIC #### [facility] [address] [address] [address] Marvin Reis Ketones Ql (U) Negative Normal NEGATIVE [facility] Comment on above: Performed By: #### U AMIC #### [facility] [address] [address] [address] Marvin Reis LEUKOCYTES LARGE Abnormal NEGATIVE [facility] Comment on above: Performed By: #### U AMIC #### [facility] [address] [address] [address] Marvin Reis MUCOUS NONE SEEN Normal NONE SEEN [facility] Comment on above: Performed By: #### U AMIC #### [facility] [address] [address] [address] Marvin Reis Nitrite Ql (U) Negative Normal NEGATIVE [facility] Comment on above: Performed By: #### U AMIC #### [facility] [address] [address] [address] Marvin Reis pH (U) 5.5 [pH] Normal 5-9 [facility] Comment on above: Performed By: #### U AMIC #### [facility] [address] [address] [address] Marvin Reis RBC 0-2 Normal 0-2 [facility] Comment on above: Performed By: #### U AMIC #### [facility] [address] [place] [address] Dr. Marvin Reis SPEC GRAVITY 1.025 Normal 1.005-<=1.025 [facility] Comment on above: Performed By: #### U AMIC #### [facility] [address] [place] [address] Dr. Marvin Reis UA PROTEIN Negative Normal NEGATIVE/ TRACE [facility] Comment on above: Performed By: #### U AMIC #### [facility] [address] [place] [address] Dr. Marvin Reis Urobilinogen Qn (U) 0.2 {Robbie'U}/dL Normal 0.2 - 1. 0 [facility] Comment on above: Performed By: #### U AMIC #### [facility] [address] [place] [address] Dr. Marvin Reis WBC 10-20 Abnormal NONE SEEN [facility] Comment on above: Performed By: #### U AMIC #### [facility] [address] [place] [address] Dr. Marvin Reis CULTURE URINEon 08-17-2022 CULTURE [...] Trimethoprim/Sulfamet hoxazole <=20 S F Normal [facility] Comment on above: Performed By: #### U RCX #### [facility] [address] [place] [address] Dr. Marvin Reis UA RANDOM W/MICROSCOPICon 10 -13-2022 BACTERIA MODERATE Abnormal NONE SEEN [facility] Comment on above: Performed By: #### U RCX #### [facility] [address] [address] [address] Marvin Reis Bilirubin Ql (U) Negative Normal NEGATIVE [facility] Comment on above: Performed By: #### U RCX #### [facility] [address] [place] [address] Dr. Marvin Reis CAST NONE SEEN Normal NONE SEEN [facility] Comment on above: Performed By: #### U RCX #### [facility] [address] [address] [address] Marvin Reis Clarity (U) SL CLOUDY Abnormal CLEAR [facility] Comment on above: Performed By: #### U RCX #### [facility] [address] [place] [address] Dr. Marvin Reis Color (U) LT. YELLOW Normal YELLOW [facility] Comment on above: Performed By: #### U RCX #### [facility] [address] [address] [address] Marvin Reis Crystals LM Nom (Urine sed) NONE SEEN Normal NONE SEEN [facility] Comment on above: Performed By: #### U RCX #### [facility] [address] [place] [address] Dr. Marvin Reis Epithelial cells LM Ql (Urine sed) RARE Normal NONE SEEN /RARE [facility] Comment on above: Performed By: #### U RCX #### [facility] [address] [place] [address] Dr. Marvin Reis Glucose Ql (U) Negative Normal NEGATIVE [facility] Comment on above: Performed By: #### U RCX #### [facility] [address] [address] [address] Marvin Reis Hemoglobin Ql (U) SMALL Abnormal NEGATIVE [facility] Comment on above: Performed By: #### U RCX #### [facility] [address] [place] [address] Dr. Marvin Reis Ketones Ql (U) Negative Normal NEGATIVE [facility] Comment on above: Performed By: #### U RCX #### [facility] [address] [address] [address] Marvin Reis LEUKOCYTES MODERATE Abnormal NEGATIVE [facility] Comment on above: Performed By: #### U RCX #### [facility] [address] [place] [address] Dr. Marvin Reis MUCOUS NONE SEEN Normal NONE SEEN [facility] Comment on above: Performed By: #### U RCX #### [facility] [address] [address] [address] Marvin Reis Nitrite Ql (U) Positive Abnormal NEGATIVE [facility] Comment on above: Performed By: #### U RCX #### [facility] [address] [place] [address] Dr. Marvin Reis pH (U) 6.0 [pH] Normal 5-9 [facility] Comment on above: Performed By: #### U RCX #### [facility] [address] [place] [address] Dr. Marvin Reis RBC 0-2 Normal 0-2 [facility] Comment on above: Performed By: #### U RCX #### [facility] [address] [address] [address] Marvin Reis SPEC GRAVITY 1.015 Normal 1.005-<=1.025 [facility] Comment on above: Performed By: #### U RCX #### [facility] [address] [place] [address] Dr. Marvin Reis UA PROTEIN Negative Normal NEGATIVE/ TRACE [facility] Comment on above: Performed By: #### U RCX #### [facility] [address] [place] [address] Dr. Marvin Reis Urobilinogen Qn (U) 0.2 {Robbie'U}/dL Normal 0.2 - 1. 0 [facility] Comment on above: Performed By: #### U RCX #### [facility] [address] [place] [address] Dr. Marvin Reis WBC 10-20 Abnormal NONE SEEN [facility] Comment on above: Performed By: #### U RCX #### [facility] [address] [place] [address] Dr. Marvin Reis CULTURE URINEon 08-02-2022 CULTURE [...] Trimethoprim/Sulfamet hoxazole <=20 S F Normal [facility] Comment on above: Performed By: #### U RCX #### [facility] [address] [place] [address] Dr. Marvin Reis UA RANDOM W/MICROSCOPICon BACTERIA MODERATE Abnormal NONE SEEN [facility] Comment on above: Performed By: #### U AMIC #### [facility] [address] [place] [address] Dr. Marvin Reis Bilirubin Ql (U) Negative Normal NEGATIVE [facility] Comment on above: Performed By: #### U AMIC #### [facility] [address] [place] [address] Dr. Marvin Reis CAST NONE SEEN Normal NONE SEEN [facility] Comment on above: Performed By: #### U AMIC #### [facility] [address] [place] [address] Dr. Marvin Reis Clarity (U) SL CLOUDY Abnormal CLEAR [facility] Comment on above: Performed By: #### U AMIC #### [facility] [address] [place] [address] Dr. Marvin Reis Color (U) LT. YELLOW Normal YELLOW [facility] Comment on above: Performed By: #### U AMIC #### [facility] [address] [place] [address] Dr. Marvin Reis Crystals LM Nom (Urine sed) NONE SEEN Normal NONE SEEN [facility] Comment on above: Performed By: #### U AMIC #### [facility] [address] [address] [address] Marvin Reis Epithelial cells LM Ql (Urine sed) NONE SEEN Normal NONE SEEN /RARE [facility] Comment on above: Performed By: #### U AMIC #### [facility] [address] [address] [address] Marvin Reis Glucose Ql (U) Negative Normal NEGATIVE [facility] Comment on above: Performed By: #### U AMIC #### [facility] [address] [address] [address] Marvin Reis Hemoglobin Ql (U) TRACE-INTACT Abnormal NEGATIVE [facility] Comment on above: Performed By: #### U AMIC #### [facility] [address] [place] [address] Dr. Marvin Reis Ketones Ql (U) Negative Normal NEGATIVE [facility] Comment on above: Performed By: #### U AMIC #### [facility] [address] [address] [address] Marvin Reis LEUKOCYTES MODERATE Abnormal NEGATIVE [facility] Comment on above: Performed By: #### U AMIC #### [facility] [address] [address] [address] Marvin Reis MUCOUS NONE SEEN Normal NONE SEEN [facility] Comment on above: Performed By: #### U AMIC #### [facility] [address] [address] [address] Marvin Reis Nitrite Ql (U) Positive Abnormal NEGATIVE [facility] Comment on above: Performed By: #### U AMIC #### [facility] [address] [address] [address] Marvin Reis pH (U) 6.0 [pH] Normal 5-9 [facility] Comment on above: Performed By: #### U AMIC #### [facility] [address] [address] [address] Marvin Reis RBC 0-2 Normal 0-2 [facility] Comment on above: Performed By: #### U AMIC #### [facility] [address] [place] [address] Dr. Marvin Reis SPEC GRAVITY 1.015 Normal 1.005-<=1.025 [facility] Comment on above: Performed By: #### U AMIC #### [facility] [address] [place] [address] Dr. Marvin Reis UA PROTEIN Negative Normal NEGATIVE/ TRACE [facility] Comment on above: Performed By: #### U AMIC #### [facility] [address] [place] [address] Dr. Marvin Reis Urobilinogen Qn (U) 0.2 {Robbie'U}/dL Normal 0.2 - 1. 0 [facility] Comment on above: Performed By: #### U AMIC #### [facility] [address] [place] [address] Dr. Marvin Reis WBC 20-50 Abnormal NONE SEEN [facility] Comment on above: Performed By: #### U AMIC #### [facility] [address] [place] [address] Dr. Marvin Reis CULTURE URINEon 06-27-2022 CULTURE [...] F Oxacillin >=4 R F Normal [facility] Comment on above: Performed By: #### U AMIC #### [facility] [address] [place] [address] Dr. Marvin Reis UA RANDOM W/MICROSCOPICon BACTERIA LARGE Abnormal NONE SEEN [facility] Comment on above: Performed By: #### U RCX #### [facility] [address] [address] [address] Marvin Reis Bilirubin Ql (U) Negative Normal NEGATIVE [facility] Comment on above: Performed By: #### U RCX #### [facility] [address] [address] [address] Marvin Reis CAST NONE SEEN Normal NONE SEEN [facility] Comment on above: Performed By: #### U RCX #### [facility] [address] [address] [address] Marvin Reis Clarity (U) CLEAR Normal CLEAR [facility] Comment on above: Performed By: #### U RCX #### [facility] [address] [place] [address] Dr. Marvin Reis Color (U) LT. YELLOW Normal YELLOW [facility] Comment on above: Performed By: #### U RCX #### [facility] [address] [place] [address] Dr. Marvin Reis Crystals LM Nom (Urine sed) NONE SEEN Normal NONE SEEN [facility] Comment on above: Performed By: #### U RCX #### [facility] [address] [address] [address] Marvin Reis Epithelial cells LM Ql (Urine sed) FEW Abnormal NONE SEEN /RARE [facility] Comment on above: Performed By: #### U RCX #### [facility] [address] [place] [address] Dr. Marvin Reis Glucose Ql (U) Negative Normal NEGATIVE [facility] Comment on above: Performed By: #### U RCX #### [facility] [address] [address] [address] Marvin Reis Hemoglobin Ql (U) TRACE-INTACT Abnormal NEGATIVE [facility] Comment on above: Performed By: #### U RCX #### [facility] [address] [place] [address] Dr. Marvin Reis Ketones Ql (U) Negative Normal NEGATIVE [facility] Comment on above: Performed By: #### U RCX #### [facility] [address] [address] [address] Marvin Reis LEUKOCYTES LARGE Abnormal NEGATIVE [facility] Comment on above: Performed By: #### U RCX #### [facility] [address] [place] [address] Dr. Marvin Reis MUCOUS NONE SEEN Normal NONE SEEN [facility] Comment on above: Performed By: #### U RCX #### [facility] [address] [place] [address] Dr. Marvin Reis Nitrite Ql (U) Positive Abnormal NEGATIVE [facility] Comment on above: Performed By: #### U RCX #### [facility] [address] [place] [address] Dr. Marvin Reis pH (U) 5.5 [pH] Normal 5-9 [facility] Comment on above: Performed By: #### U RCX #### [facility] [address] [place] [address] Dr. Marvin Reis RBC 2-5 Abnormal 0-2 [facility] Comment on above: Performed By: #### U RCX #### [facility] [address] [place] [address] Dr. Marvin Reis SPEC GRAVITY 1.015 Normal 1.005-<=1.025 [facility] Comment on above: Performed By: #### U RCX #### [facility] [address] [place] [address] Dr. Marvin Reis UA PROTEIN Negative Normal NEGATIVE/ TRACE [facility] Comment on above: Performed By: #### U RCX #### [facility] [address] [place] [address] Dr. Marvin Reis Urobilinogen Qn (U) 0.2 {Robbie'U}/dL Normal 0.2 - 1. 0 [facility] Comment on above: Performed By: #### U RCX #### [facility] [address] [place] [address] Dr. Marvin Reis WBC (U) [#/Vol] /uL Abnormal NONE SEEN [facility] Comment on above: Performed By: #### U RCX #### [facility] [address] [place] [address] Dr. Marvin Reis CULTURE URINEon 05-27-2022 CULTURE [...] F Oxacillin >=4 R F Normal [facility] Comment on above: Performed By: #### U RCX #### [facility] [address] [place] [address] Dr. Marvin Reis UA RANDOM W/MICROSCOPICon BACTERIA MODERATE Abnormal NONE SEEN [facility] Comment on above: Performed By: #### U RCX #### [facility] [address] [place] [address] Dr. Marvin Reis Bilirubin Ql (U) Negative Normal NEGATIVE [facility] Comment on above: Performed By: #### U RCX #### [facility] [address] [place] [address] Dr. Marvin Reis CAST NONE SEEN Normal NONE SEEN [facility] Comment on above: Performed By: #### U RCX #### [facility] [address] [place] [address] Dr. Marvin Reis Clarity (U) SL CLOUDY Abnormal CLEAR [facility] Comment on above: Performed By: #### U RCX #### [facility] [address] [place] [address] Dr. Marvin Reis Color (U) LT. YELLOW Normal YELLOW [facility] Comment on above: Performed By: #### U RCX #### [facility] [address] [place] [address] Dr. Marvin Reis Crystals LM Nom (Urine sed) NONE SEEN Normal NONE SEEN [facility] Comment on above: Performed By: #### U RCX #### [facility] [address] [address] [address] Marvin Reis Epithelial cells LM Ql (Urine sed) FEW Abnormal NONE SEEN /RARE [facility] Comment on above: Performed By: #### U RCX #### [facility] [address] [address] [address] Marvin Reis Glucose Ql (U) Negative Normal NEGATIVE [facility] Comment on above: Performed By: #### U RCX #### [facility] [address] [address] [address] Marvin Reis Hemoglobin Ql (U) SMALL Abnormal NEGATIVE [facility] Comment on above: Performed By: #### U RCX #### [facility] [address] [place] [address] Dr. Marvin Reis Ketones Ql (U) Negative Normal NEGATIVE [facility] Comment on above: Performed By: #### U RCX #### [facility] [address] [address] [address] Marvin Reis LEUKOCYTES LARGE Abnormal NEGATIVE [facility] Comment on above: Performed By: #### U RCX #### [facility] [address] [address] [address] Marvin Reis MUCOUS TRACE Abnormal NONE SEEN [facility] Comment on above: Performed By: #### U RCX #### [facility] [address] [address] [address] Marvin Reis Nitrite Ql (U) Negative Normal NEGATIVE [facility] Comment on above: Performed By: #### U RCX #### [facility] [address] [address] [address] Marvin Reis pH (U) 6.0 [pH] Normal 5-9 [facility] Comment on above: Performed By: #### U RCX #### [facility] [address] [address] [address] Marvin Reis RBC 2-5 Abnormal 0-2 [facility] Comment on above: Performed By: #### U RCX #### [facility] [address] [address] [address] Marvin Reis SPEC GRAVITY 1.010 Normal 1.005-<=1.025 [facility] Comment on above: Performed By: #### U RCX #### [facility] [address] [address] [address] Marvin Reis UA PROTEIN Negative Normal NEGATIVE/ TRACE [facility] Comment on above: Performed By: #### U RCX #### [facility] [address] [address] [address] Marvin Reis Urobilinogen Qn (U) 0.2 {Robbie'U}/dL Normal 0.2 - 1. 0 [facility] Comment on above: Performed By: #### U RCX #### [facility] [address] [place] [address] Dr. Marvin Reis WBC 50-75 Abnormal NONE SEEN [facility] Comment on above: Performed By: #### U RCX #### [facility] [address] [place] [address] Dr. Marvin Reis CULTURE URINEon 04-18-2022 CULTURE [...] F Oxacillin >=4 R F Normal [facility] Comment on above: Performed By: #### U RCX #### [facility] [address] [address] [address] Marvin Reis UA RANDOM W/MICROSCOPICon BACTERIA TRACE Abnormal NONE SEEN [facility] Comment on above: Performed By: #### U AMIC #### [facility] [address] [address] [address] Marvin Reis Bilirubin Ql (U) Negative Normal NEGATIVE [facility] Comment on above: Performed By: #### U AMIC #### [facility] [address] [address] [address] Marvin Reis CAST NONE SEEN Normal NONE SEEN [facility] Comment on above: Performed By: #### U AMIC #### [facility] [address] [address] [address] Marvin Reis Clarity (U) CLEAR Normal CLEAR [facility] Comment on above: Performed By: #### U AMIC #### [facility] [address] [address] [address] Marvin Reis Color (U) LT. YELLOW Normal YELLOW [facility] Comment on above: Performed By: #### U AMIC #### [facility] [address] [address] [address] Marvin Reis Crystals LM Nom (Urine sed) NONE SEEN Normal NONE SEEN [facility] Comment on above: Performed By: #### U AMIC #### [facility] [address] [address] [address] Marvin Reis Epithelial cells LM Ql (Urine sed) FEW Abnormal NONE SEEN /RARE [facility] Comment on above: Performed By: #### U AMIC #### [facility] [address] [address] [address] Marvin Reis Glucose Ql (U) Negative Normal NEGATIVE [facility] Comment on above: Performed By: #### U AMIC #### [facility] [address] [address] [address] Marvin Reis Hemoglobin Ql (U) TRACE-INTACT Abnormal NEGATIVE [facility] Comment on above: Performed By: #### U AMIC #### [facility] [address] [address] [address] Marvin Reis Ketones Ql (U) Negative Normal NEGATIVE [facility] Comment on above: Performed By: #### U AMIC #### [facility] [address] [place] [address] Dr. Marvin Reis LEUKOCYTES SMALL Abnormal NEGATIVE [facility] Comment on above: Performed By: #### U AMIC #### [facility] [address] [place] [address] Dr. Marvin Reis MUCOUS NONE SEEN Normal NONE SEEN [facility] Comment on above: Performed By: #### U AMIC #### [facility] [address] [place] [address] Dr. Marvin Reis Nitrite Ql (U) Negative Normal NEGATIVE [facility] Comment on above: Performed By: #### U AMIC #### [facility] [address] [place] [address] Dr. Marvin Reis pH (U) 6.0 [pH] Normal 5-9 [facility] Comment on above: Performed By: #### U AMIC #### [facility] [address] [place] [address] Dr. Marvin Reis RBC 0-2 Normal 0-2 [facility] Comment on above: Performed By: #### U AMIC #### [facility] [address] [place] [address] Dr. Marvin Reis SPEC GRAVITY 1.010 Normal 1.005-<=1.025 [facility] Comment on above: Performed By: #### U AMIC #### [facility] [address] [place] [address] Dr. Marvin Reis UA PROTEIN Negative Normal NEGATIVE/ TRACE [facility] Comment on above: Performed By: #### U AMIC #### [facility] [address] [place] [address] Dr. Marvin Reis Urobilinogen Qn (U) 0.2 {Robbie'U}/dL Normal 0.2 - 1. 0 [facility] Comment on above: Performed By: #### U AMIC #### [facility] [address] [place] [address] Dr. Marvin Reis WBC 2-5 Abnormal NONE SEEN [facility] Comment on above: Performed By: #### U AMIC #### [facility] [address] [place] [address] Dr. Marvin Reis CULTURE URINEon 03-27-2022 CULTURE [...] Trimethoprim/Sulfamet hoxazole >=320 R F Normal [facility] Comment on above: Performed By: #### U RCX #### [facility] [address] [place] [address] Dr. Marvin Reis UA RANDOM W/MICROSCOPICon BACTERIA TRACE Abnormal NONE SEEN [facility] Comment on above: Performed By: #### U RCX #### [facility] [address] [place] [address] Dr. Marvin Reis Bilirubin Ql (U) Negative Normal NEGATIVE [facility] Comment on above: Performed By: #### U RCX #### [facility] [address] [place] [address] Dr. Marvin Reis CAST NONE SEEN Normal NONE SEEN [facility] Comment on above: Performed By: #### U RCX #### [facility] [address] [place] [address] Dr. Marvin Reis Clarity (U) CLEAR Normal CLEAR [facility] Comment on above: Performed By: #### U RCX #### [facility] [address] [address] [address] Marvin Reis Color (U) LT. YELLOW Normal YELLOW [facility] Comment on above: Performed By: #### U RCX #### [facility] [address] [place] [address] Dr. Marvin Reis Crystals LM Nom (Urine sed) NONE SEEN Normal NONE SEEN [facility] Comment on above: Performed By: #### U RCX #### [facility] [address] [address] [address] Marvin Reis Epithelial cells LM Ql (Urine sed) FEW Abnormal NONE SEEN /RARE [facility] Comment on above: Performed By: #### U RCX #### [facility] [address] [place] [address] Dr. Marvin Reis Glucose Ql (U) Negative Normal NEGATIVE [facility] Comment on above: Performed By: #### U RCX #### [facility] [address] [place] [address] Dr. Marvin Reis Hemoglobin Ql (U) SMALL Abnormal NEGATIVE [facility] Comment on above: Performed By: #### U RCX #### [facility] [address] [place] [address] Dr. Marvin Reis Ketones Ql (U) Negative Normal NEGATIVE [facility] Comment on above: Performed By: #### U RCX #### [facility] [address] [place] [address] Dr. Marvin Reis LEUKOCYTES MODERATE Abnormal NEGATIVE [facility] Comment on above: Performed By: #### U RCX #### [facility] [address] [place] [address] Dr. Marvin Reis MUCOUS NONE SEEN Normal NONE SEEN [facility] Comment on above: Performed By: #### U RCX #### [facility] [address] [place] [address] Dr. Marvin Reis Nitrite Ql (U) Negative Normal NEGATIVE [facility] Comment on above: Performed By: #### U RCX #### [facility] [address] [place] [address] Dr. Marvin Reis pH (U) 5.5 [pH] Normal 5-9 [facility] Comment on above: Performed By: #### U RCX #### [facility] [address] [place] [address] Dr. Marvin Reis RBC NONE SEEN Abnormal 0-2 [facility] Comment on above: Performed By: #### U RCX #### [facility] [address] [place] [address] Dr. Marvin Reis SPEC GRAVITY 1.015 Normal 1.005-<=1.025 [facility] Comment on above: Performed By: #### U RCX #### [facility] [address] [place] [address] Dr. Marvin Reis UA PROTEIN Negative Normal NEGATIVE/ TRACE [facility] Comment on above: Performed By: #### U RCX #### [facility] [address] [place] [address] Dr. Marvin Reis Urobilinogen Qn (U) 0.2 {Robbie'U}/dL Normal 0.2 - 1. 0 [facility] Comment on above: Performed By: #### U RCX #### [facility] [address] [place] [address] Dr. Marvin Reis WBC 20-50 Abnormal NONE SEEN [facility] Comment on above: Performed By: #### U RCX #### [facility] [address] [place] [address] Dr. Marvin Reis YEAST PRESENT Abnormal NONE SEEN [facility] Comment on above: Performed By: #### U RCX #### [facility] [address] [place] [address] Dr. Marvin Reis CULTURE URINEon 03-18-2022 CULTURE URINE Culture Observations : No growth Normal [facility] Comment on above: Performed By: #### U RCX #### [facility] [address] [place] [address] Dr. Marvin Reis UA RANDOM W/MICROSCOPICon BACTERIA NONE SEEN Normal NONE SEEN [facility] Comment on above: Performed By: #### U AMIC #### [facility] [address] [address] [address] Marvin Reis Bilirubin Ql (U) Negative Normal NEGATIVE [facility] Comment on above: Performed By: #### U AMIC #### [facility] [address] [address] [address] Marvin Reis CAST NONE SEEN Normal NONE SEEN [facility] Comment on above: Performed By: #### U AMIC #### [facility] [address] [place] [address] Dr. Marvin Reis Clarity (U) CLOUDY Abnormal CLEAR [facility] Comment on above: Performed By: #### U AMIC #### [facility] [address] [address] [address] Marvin Reis Color (U) LT. YELLOW Normal YELLOW [facility] Comment on above: Performed By: #### U AMIC #### [facility] [address] [place] [address] Dr. Marvin Reis Crystals LM Nom (Urine sed) NONE SEEN Normal NONE SEEN [facility] Comment on above: Performed By: #### U AMIC #### [facility] [address] [place] [address] Dr. Marvin Reis Epithelial cells LM Ql (Urine sed) RARE Normal NONE SEEN /RARE [facility] Comment on above: Performed By: #### U AMIC #### [facility] [address] [place] [address] Dr. Marvin Reis Glucose Ql (U) Negative Normal NEGATIVE [facility] Comment on above: Performed By: #### U AMIC #### [facility] [address] [place] [address] Dr. Marvin Reis Hemoglobin Ql (U) TRACE-INTACT Abnormal NEGATIVE [facility] Comment on above: Performed By: #### U AMIC #### [facility] [address] [place] [address] Dr. Marvin Reis Ketones Ql (U) Negative Normal NEGATIVE [facility] Comment on above: Performed By: #### U AMIC #### [facility] [address] [place] [address] Dr. Marvin Reis LEUKOCYTES MODERATE Abnormal NEGATIVE [facility] Comment on above: Performed By: #### U AMIC #### [facility] [address] [address] [address] Marvin Reis MUCOUS NONE SEEN Normal NONE SEEN [facility] [facility] Comment on above: Performed By: #### U AMIC #### [facility] [address] [address] [address] Marvin Reis Nitrite Ql (U) Negative Normal NEGATIVE [facility] Comment on above: Performed By: #### U AMIC #### [facility] [address] [address] [address] Marvin Reis pH (U) 6.0 [pH] Normal 5-9 [facility] Comment on above: Performed By: #### U AMIC #### [facility] [address] [place] [address] Dr. Marvin Reis RBC NONE SEEN Abnormal 0-2 [facility] Comment on above: Performed By: #### U AMIC #### [facility] [address] [place] [address] Dr. Marvin Reis SPEC GRAVITY 1.015 Normal 1.005-<=1.025 [facility] Comment on above: Performed By: #### U AMIC #### [facility] [address] [address] [address] Marvin Reis UA PROTEIN Negative Normal NEGATIVE/ TRACE [facility] Comment on above: Performed By: #### U AMIC #### [facility] [address] [address] [address] Marvin Reis Urobilinogen Qn (U) 0.2 {Robbie'U}/dL Normal 0.2 - 1. 0 [facility] Comment on above: Performed By: #### U AMIC #### [facility] [address] [place] [address] Dr. Marvin Reis WBC 10-20 Abnormal NONE SEEN [facility] Comment on above: Performed By: #### U AMIC #### [facility] [address] [place] [address] Dr. Marvin Reis Coding Summary.on 06-21-2020 Coding Summary. CODING DATE: 06/21/2020 FINAL [facility] STATUS: PAYOR: Worker's Compensation ADMIT [...] Hopper CphT Date Saved: 06/21/2020 12:01 pm [facility] PT - Assessmentson 0 PT - Assessments [id number] 0 [id number]# 1.00CD:127 [facility] PT - Orderson 06-20-2020 PT - Orders [id number]# 1.00CD:127 [facility] PT - Workers Compon 06-20-20 20 PT - Workers Comp [id number]# 1.00CD:127 [facility] Encounters Encounter Date Encounter Type Care Provider Facility Start: 03-10-2023 End: 03-11-2023 [facility] Start: 03-03-2023 End: 03-03-[address] LAWANDA [...] Facility:[facility] Payers Date Payer Category Payer Medicare [id number] 1961 Unknown [id number] 1960 Unknown [id number] 2.16.84 0.1.165823.3.579.2.593 1958 Unknown [id number] 2.16.84 0.1.282765.3.579.2.593 1958 Unknown [id number] 2.16.84 0.1.499102.3.579.2.593 1958 Unknown [id number] 2.16.84 0.1.786802.3.579.2.593 1958 Unknown [id number] 2.16.84 0.1.474726.3.579.2.593 1958 Unknown [id number] 2.16.84 0.1.482122.3.579.2.593 1958 Unknown [id number] 2.16.84 0.1.703522.3.579.2.593 1958 Unknown [id number] 2.16.84 0.1.249785.3.579.2.593 1958 Unknown [id number] 2.16.84 0.1.473308.3.579.2.593 1958 Unknown [id number] 2.16.84 0.1.856784.3.579.2.593 1958 Unknown [id number] 2.16.84 0.1.741588.3.579.2.593 1958 Unknown [id number] 2.16.84 0.1.254750.3.579.2.593 1958 Unknown [id number] 2.16.84 0.1.685731.3.579.2.593 1958 Unknown [id number] 2.16.84 0.1.427893.3.579.2.593 1958 Unknown [id number] 2.16.84 0.1.286696.3.579.2.593 1958 Unknown [id number] 2.16.84 0.1.250042.3.579.2.593 1958 Unknown [id number] 2.16.84 0.1.541187.3.579.2.593 1958 Unknown [id number] 2.16.84 0.1.423527.3.579.2.593 1958 Unknown [id number] 2.16.84 0.1.589045.3.579.2.593 Summary Purpose Family History No Family History [...] and content) DATE CREATED AUTHOR 09/19/2020 [facility] DATE CREATED AUTHOR AUTHOR'S ORGANIZ ATION 03/06/2023 [facility] DATE CREATED AUTHOR AUTHOR'S ORGANIZ ATION 03/11/2023 [facility] DATE CREATED AUTHOR AUTHOR'S ORGANIZ ATION 06/07/2023 [facility] FOR RECORDS PERTAINING TO PATIENTS [...] BE BASED ON THE PRIMARY CLINICAL RECORDS. [employer] [facility]. provides no warranty or guarantee of the accuracy or completeness of information in this document.
[2024-05-07 14:32] LABS: Bilirubin Urine NEGATIVE (NEGATIVE); Blood Urine TRACE-I (NEGATIVE); Clarity Urine CLEAR (CLEAR); Color Urine LT. YELLOW (YELLOW); Glucose Urine UA NEGATIVE (NEGATIVE); Ketones Urine NEGATIVE (NEGATIVE); Leukocyte Esterase Urine MODERATE (NEGATIVE); Nitrite Urine NEGATIVE (NEGATIVE); Protein Urine TRACE mg/dL (NEG/TRACE); Specific Gravity Urine 1.015 (1.005-1.025); Urobilinogen Urine 0.2 EU/dL (0.2-1.0)
[2024-05-07 14:41] LABS: Bacteria Urine TRACE #/HPF (NONE SEEN); Mucus Urine TRACE (NONE SEEN); WBC Urine >100 #/HPF (NONE SEEN)
[2024-05-07 14:42] LABS: Cast Seen? NONE SEEN #/LPF (NONE SEEN); Crystals Seen? None Seen #/HPF (None Seen); Squamous Epithelial Cell Urine MODERATE #/LPF (NONE/RARE); Urine Culture Indicated ALREADY ORDERED
[2024-05-07 14:44] LABS: RBC Urine 0-2 #/HPF (0-2)
== END 2024-05-07 14:12 | disposition home or self-care (01) ==
LOC: LAB 14:11
PROVIDERS: PCP Family Medicine; Visit Provider Family Medicine
DX: N39.0 Urinary tract infection, site not specified (principal)
CPT/HCPCS: 81001; 87086; 87150; 87186

== ENCOUNTER 2024-05-31 14:55 | Outpatient (REF) | payer OTHER, SELFPAY ==
[2024-05-31 15:16] LABS: Bilirubin Urine NEGATIVE (NEGATIVE); Blood Urine SMALL (NEGATIVE); Clarity Urine CLOUDY (CLEAR); Color Urine LT. YELLOW (YELLOW); Glucose Urine UA NEGATIVE (NEGATIVE); Ketones Urine NEGATIVE (NEGATIVE); Leukocyte Esterase Urine LARGE (NEGATIVE); Nitrite Urine POSITIVE (NEGATIVE); Protein Urine 30 mg/dL (NEG/TRACE); Specific Gravity Urine 1.015 (1.005-1.025); Urobilinogen Urine 0.2 EU/dL (0.2-1.0)
[2024-05-31 15:39] LABS: WBC Urine >100 #/HPF (NONE SEEN)
[2024-05-31 15:41] LABS: Bacteria Urine LARGE #/HPF (NONE SEEN); Mucus Urine NONE SEEN (NONE SEEN); RBC Urine 0-2 #/HPF (0-2)
[2024-05-31 15:42] LABS: Cast Seen? NONE SEEN #/LPF (NONE SEEN); Crystals Seen? None Seen #/HPF (None Seen); Squamous Epithelial Cell Urine RARE #/LPF (NONE/RARE)
== END 2024-05-31 14:56 | disposition home or self-care (01) ==
LOC: LAB 14:55
PROVIDERS: PCP Family Medicine; Visit Provider Family Medicine
DX: N39.0 Urinary tract infection, site not specified (principal)
CPT/HCPCS: 81001; 87086

== ENCOUNTER 2024-06-03 15:44 | Outpatient (REF) | payer SELFPAY | END 2024-06-03 15:45 | disposition home or self-care (01) | LOC: LAB 15:44 | PROVIDERS: PCP Family Medicine; Visit Provider Family Medicine | DX: G82.50 Quadriplegia, unspecified (principal) | CPT/HCPCS: 36415; 80307 ==

== ENCOUNTER 2024-06-04 14:39 | Outpatient (REF) | payer OTHER, SELFPAY ==
--- OUTSIDE RECORDS SUMMARY | 2024-06-04 14:43 | XMS_ITS | CCD ---
Author Organization [facility] Care Team Providers Care Allergy And Immunology Chief Name Role Phone HOY ., DR WEBBER [...] Unavailable HOY ., DR WEBBER Admherman Unavailable [place], DR MAGY [employer] Unavailable HOY ., [...] Drug Allergy 04-21-[address] [facility] Repository (1 source) Cilastatin / Imipenem Drug Allergy 04-21-[address] [facility] Repository (1 source) Readi-Cat Drug allergy (disorder) 04-21-[address] [facility] Repository (1 source) ceFAZolin; Translations: [CEFAZOLIN] Drug Allergy 12-01-19 13 [facility] Repository (1 source) Cephalexin; Translations: [CEPHALEXIN MONOHYDRATE] Drug Allergy 08-03-20 09 [facility] Repository (1 source) Promazine; Translations: [PROMAZINE] Drug Allergy 12-01-19 13 [facility] Repository (1 source) Sulfamethoxazole / Trimethoprim; Translations: [SULFAMETHOXAZOLE-TR IMETHOPRIM] Drug Allergy 03-10-20 23 [facility] Repository (1 source) IODINATED CONTRAST MEDIA; Translations: [IODINATED CONTRAST MEDIA] Propensity to adverse reactions to drug (disorder) 12-01-19 13 [facility] Repository Problems Active Problems Problem Classification Problem [...] RESISTANT TO ALL B-LACTAM DRUGS. PERFORMED BY: [place] [address] PATHOLOGIST [employer] SUPPORT WORKER MARLA VEGA M.D. [facility] Comment on above: Performed By: #### A MAI LAYNE #### [place] [id number] [place] Gram Stainon 06-03-2023 Microscopic observation Gram stain Nom (Unsp spec) Gram Stain Result No Bacteria Seen PERFORMED BY: [place] [address] PATHOLOGIST [employer]ANA[employer] SUPPORT WORKER MARLA VEGA M.D. [facility] Comment on above: Performed By: #### A MAI LAYNE #### [place] [id number] [place] CULTURE URINEon 03-06-2023 CULTURE URINE Isolate [...] 2 S F Normal [facility] Comment on above: Performed By: #### U RCX #### [facility] [address] [place] [address] Dr. Marvin Reis UA RANDOM W/MICROSCOPICon BACTERIA SMALL Abnormal NONE SEEN The [facility] Comment on above: Performed By: #### U AMIC #### [facility] [address] [place] [address] Dr. Marvin Reis Bilirubin Ql (U) Negative Normal NEGATIVE The [facility] Comment on above: Performed By: #### U AMIC #### [facility] [address] [place] [address] Dr. Marvin Reis CAST NONE SEEN Normal NONE SEEN [facility] Comment on above: Performed By: #### U AMIC #### [facility] [address] [place] [address] Dr. Marvin Reis Clarity (U) CLEAR Normal CLEAR [facility] Comment on above: Performed By: #### U AMIC #### [facility] [address] [place] [address] Dr. Marvin Reis Color (U) LT. YELLOW Normal YELLOW [facility] Comment on above: Performed By: #### U AMIC #### [facility] [address] [address] [address] Marvin Reis Crystals LM Nom (Urine sed) NONE SEEN Normal NONE SEEN [facility] Comment on above: Performed By: #### U AMIC #### [facility] [address] [place] [address] Dr. Marvin Reis Epithelial cells LM Ql (Urine sed) RARE Normal NONE SEEN /RARE [facility] Comment on above: Performed By: #### U AMIC #### [facility] [address] [address] [address] Marvin Reis Glucose Ql (U) Negative Normal NEGATIVE The [facility] Comment on above: Performed By: #### U AMIC #### [facility] [address] [place] [address] Dr. Marvin Reis Hemoglobin Ql (U) Negative Normal NEGATIVE The [facility] Comment on above: Performed By: #### U AMIC #### [facility] [address] [place] [address] Dr. Marvin Reis Ketones Ql (U) Negative Normal NEGATIVE The [facility] Comment on above: Performed By: #### U AMIC #### [facility] [address] [place] [address] Dr. Marvin Reis LEUKOCYTES SMALL Abnormal NEGATIVE The [facility] Comment on above: Performed By: #### U AMIC #### [facility] [address] [place] [address] Dr. Marvin Reis MUCOUS NONE SEEN Normal NONE SEEN [facility] Comment on above: Performed By: #### U AMIC #### [facility] [address] [place] [address] Dr. Marvin Reis Nitrite Ql (U) Negative Normal NEGATIVE The [facility] Comment on above: Performed By: #### U AMIC #### [facility] [address] [place] [address] Dr. Marvin Reis pH (U) 6.0 [pH] Normal 5-[address] [facility] Comment on above: Performed By: #### U AMIC #### [facility] [address] [place] [address] Dr. Marvin Reis RBC 0-2 Normal 0-[address] [facility] Comment on above: Performed By: #### U AMIC #### [facility] [address] [place] [address] Dr. Marvin Reis SPEC GRAVITY 1.010 Normal 1.005-<=1.025 [facility] Comment on above: Performed By: #### U AMIC #### [facility] [address] [address] [address] Marvin Reis UA PROTEIN Negative Normal NEGATIVE/ TRACE The [facility] Comment on above: Performed By: #### U AMIC #### [facility] [address] [place] [address] Dr. Marvin Reis Urobilinogen Qn (U) 0.2 {Robbie'U}/dL Normal 0.2 - 1. 0 The [facility] Comment on above: Performed By: #### U AMIC #### [facility] [address] [place] [address] Dr. Marvin Reis WBC 5-10 Abnormal NONE SEEN The [facility] Comment on above: Performed By: #### U AMIC #### [facility] [address] [place] [address] Dr. Marvin Reis CULTURE URINEon 02-13-2023 CULTURE [...] 2 S F Normal [facility] Comment on above: Performed By: #### U RCX #### [facility] [address] [place] [address] Dr. Marvin Reis UA RANDOM W/MICROSCOPICon BACTERIA MODERATE Abnormal NONE SEEN The [facility] Comment on above: Performed By: #### U AMIC #### [facility] [address] [place] [address] Dr. Marvin Reis Bilirubin Ql (U) Negative Normal NEGATIVE The [facility] Comment on above: Performed By: #### U AMIC #### [facility] [address] [place] [address] Dr. Marvin Reis CAST NONE SEEN Normal NONE SEEN [facility] Comment on above: Performed By: #### U AMIC #### [facility] [address] [place] [address] Dr. Marvin Reis Clarity (U) CLEAR Normal CLEAR [facility] Comment on above: Performed By: #### U AMIC #### [facility] [address] [place] [address] Dr. Marvin Reis Color (U) LT. YELLOW Normal YELLOW [facility] Comment on above: Performed By: #### U AMIC #### [facility] [address] [place] [address] Dr. Marvin Reis Crystals LM Nom (Urine sed) NONE SEEN Normal NONE SEEN The [facility] Comment on above: Performed By: #### U AMIC #### [facility] [address] [place] [address] Dr. Marvin Reis Epithelial cells LM Ql (Urine sed) MODERATE Abnormal NONE SEEN /RARE The [facility] Comment on above: Performed By: #### U AMIC #### [facility] [address] [place] [address] Dr. Marvin Reis Glucose Ql (U) Negative Normal NEGATIVE The [facility] Comment on above: Performed By: #### U AMIC #### [facility] [address] [place] [address] Dr. Marvin Reis Hemoglobin Ql (U) SMALL Abnormal NEGATIVE The [facility] Comment on above: Performed By: #### U AMIC #### [facility] [address] [address] [address] Marvin Reis Ketones Ql (U) Negative Normal NEGATIVE The [facility] Comment on above: Performed By: #### U AMIC #### [facility] [address] [address] [address] Marvin Reis LEUKOCYTES LARGE Abnormal NEGATIVE The [facility] Comment on above: Performed By: #### U AMIC #### [facility] [address] [address] [address] Marvin Reis MUCOUS NONE SEEN Normal NONE SEEN [facility] Comment on above: Performed By: #### U AMIC #### [facility] [address] [place] [address] Dr. Marvin Reis Nitrite Ql (U) Positive Abnormal NEGATIVE The [facility] Comment on above: Performed By: #### U AMIC #### [facility] [address] [address] [address] Marvin Reis pH (U) 5.5 [pH] Normal 5-[address] [facility] Comment on above: Performed By: #### U AMIC #### [facility] [address] [address] [address] Marvin Reis RBC 5-10 Abnormal 0-2 [facility] Comment on above: Performed By: #### U AMIC #### [facility] [address] [address] [address] Marvin Reis SPEC GRAVITY 1.015 Normal 1.005-<=1.[address] [facility] Comment on above: Performed By: #### U AMIC #### [facility] [address] [address] [address] Marvin Reis UA PROTEIN Negative Normal NEGATIVE/ TRACE The [facility] Comment on above: Performed By: #### U AMIC #### [facility] [address] [place] [address] Dr. Marvin Reis Urobilinogen Qn (U) 0.2 {Robbie'U}/dL Normal 0.2 - 1. 0 The [facility] Comment on above: Performed By: #### U AMIC #### [facility] [address] [place] [address] Dr. Marvin Reis WBC 50-75 Abnormal NONE SEEN The [facility] Comment on above: Performed By: #### U AMIC #### [facility] [id number] Marvin Reis CULTURE URINEon 01-23-2023 CULTURE [...] <=10 S F Normal [facility] Comment on above: Performed By: #### U AMIC #### [facility] [address] [place] [address] Dr. Marvin Reis UA RANDOM W/MICROSCOPICon BACTERIA TRACE Abnormal NONE SEEN The [facility] Comment on above: Performed By: #### U AMIC #### [facility] [address] [place] [address] Dr. Marvin Reis Bilirubin Ql (U) Negative Normal NEGATIVE The [facility] Comment on above: Performed By: #### U AMIC #### [facility] [address] [address] [address] Marvin Reis CAST NONE SEEN Normal NONE SEEN The [facility] Comment on above: Performed By: #### U AMIC #### [facility] [address] [address] [address] Marvin Reis Clarity (U) SL CLOUDY Abnormal CLEAR The [facility] Comment on above: Performed By: #### U AMIC #### [facility] [address] [address] [address] Marvin Reis Color (U) LT. YELLOW Normal YELLOW [facility] Comment on above: Performed By: #### U AMIC #### [facility] [address] [place] [address] Dr. Marvin Reis Crystals LM Nom (Urine sed) NONE SEEN Normal NONE SEEN [facility] Comment on above: Performed By: #### U AMIC #### [facility] [address] [place] [address] Dr. Marvin Reis Epithelial cells LM Ql (Urine sed) NONE SEEN Normal NONE SEEN /RARE The [facility] Comment on above: Performed By: #### U AMIC #### [facility] [address] [place] [address] Dr. Marvin Reis Glucose Ql (U) Negative Normal NEGATIVE The [facility] Comment on above: Performed By: #### U AMIC #### [facility] [address] [address] [address] Marvin Reis Hemoglobin Ql (U) Negative Normal NEGATIVE The [facility] Comment on above: Performed By: #### U AMIC #### [facility] [address] [address] [address] Marvin Reis Ketones Ql (U) Negative Normal NEGATIVE The [facility] Comment on above: Performed By: #### U AMIC #### [facility] [address] [place] [address] Dr. Marvin Reis LEUKOCYTES TRACE Abnormal NEGATIVE The [facility] Comment on above: Performed By: #### U AMIC #### [facility] [address] [address] [address] Marvin Reis MUCOUS NONE SEEN Normal NONE SEEN [facility] Comment on above: Performed By: #### U AMIC #### [facility] [address] [place] [address] Dr. Marvin Reis Nitrite Ql (U) Negative Normal NEGATIVE The [facility] Comment on above: Performed By: #### U AMIC #### [facility] [address] [place] [address] Dr. Marvin Reis pH (U) 6.0 [pH] Normal 5-[address] [facility] Comment on above: Performed By: #### U AMIC #### [facility] [address] [place] [address] Dr. Marvin Reis RBC NONE SEEN Abnormal 0-2 [facility] Comment on above: Performed By: #### U AMIC #### [facility] [address] [place] [address] Dr. Marvin Reis SPEC GRAVITY 1.020 Normal 1.005-<=1.[address] [facility] Comment on above: Performed By: #### U AMIC #### [facility] [address] [place] [address] Dr. Marvin Reis UA PROTEIN Negative Normal NEGATIVE/ TRACE The [facility] Comment on above: Performed By: #### U AMIC #### [facility] [address] [place] [address] Dr. Marvin Reis Urobilinogen Qn (U) 0.2 {Robbie'U}/dL Normal 0.2 - 1. [address] [facility] Comment on above: Performed By: #### U AMIC #### [facility] [address] [place] [address] Dr. Marvin Reis WBC 10-20 Abnormal NONE SEEN [facility] Comment on above: Performed By: #### U AMIC #### [facility] [address] [place] [address] Dr. Marvin Reis CULTURE URINEon 01-07-2023 CULTURE URINE Isolate 1 Dawna albicans 10,000 cfu/mL of Normal [facility] Comment on above: Performed By: #### U RCX #### [facility] [address] [address] [address] Marvin Reis UA RANDOM W/MICROSCOPICon BACTERIA TRACE Abnormal NONE SEEN The [facility] Comment on above: Performed By: #### U AMIC #### [facility] [address] [address] [address] Marvin Reis Bilirubin Ql (U) Negative Normal NEGATIVE The [facility] Comment on above: Performed By: #### U AMIC #### [facility] [address] [address] [address] Marvin Reis CA OX CRYSTALS RARE Normal The [facility] Comment on above: Performed By: #### U AMIC #### [facility] [address] [address] [address] Marvin Reis CAST NONE SEEN Normal NONE SEEN [facility] Comment on above: Performed By: #### U AMIC #### [facility] [address] [address] [address] Marvni Reis Clarity (U) CLEAR Normal CLEAR [facility] Comment on above: Performed By: #### U AMIC #### [facility] [address] [address] [address] Marvin Reis Color (U) LT. YELLOW Normal YELLOW [facility] Comment on above: Performed By: #### U AMIC #### [facility] [address] [address] [address] Marvin Reis Crystals LM Nom (Urine sed) SEEN Abnormal NONE SEEN The [facility] Comment on above: Performed By: #### U AMIC #### [facility] [address] [address] [address] Marvin Reis Epithelial cells LM Ql (Urine sed) FEW Abnormal NONE SEEN /RARE [facility] Comment on above: Performed By: #### U AMIC #### [facility] [address] [address] [address] Marvin Reis Glucose Ql (U) Negative Normal NEGATIVE The [facility] Comment on above: Performed By: #### U AMIC #### [facility] [address] [address] [address] Marvin Reis Hemoglobin Ql (U) Negative Normal NEGATIVE The [facility] Comment on above: Performed By: #### U AMIC #### [facility] [address] [address] [address] Marvin Reis Ketones Ql (U) Negative Normal NEGATIVE The [facility] Comment on above: Performed By: #### U AMIC #### [facility] [address] [address] [address] Marvin Reis LEUKOCYTES SMALL Abnormal NEGATIVE The [facility] Comment on above: Performed By: #### U AMIC #### [facility] [address] [place] [address] Dr. Marvin Reis MUCOUS NONE SEEN Normal NONE SEEN The [facility] Comment on above: Performed By: #### U AMIC #### [facility] [address] [place] [address] Dr. Marvin Reis Nitrite Ql (U) Negative Normal NEGATIVE The [facility] Comment on above: Performed By: #### U AMIC #### [facility] [address] [place] [address] Dr. Marvin Reis pH (U) 5.5 [pH] Normal 5-9 [facility] Comment on above: Performed By: #### U AMIC #### [facility] [address] [place] [address] Dr. Marvin Reis RBC 0-2 Normal 0-[address] [facility] Comment on above: Performed By: #### U AMIC #### [facility] [address] [place] [address] Dr. Marvin Reis SPEC GRAVITY 1.015 Normal 1.005-<=1.[address] [facility] Comment on above: Performed By: #### U AMIC #### [facility] [address] [place] [address] Dr. Marvin Reis UA PROTEIN Negative Normal NEGATIVE/ TRACE The [facility] Comment on above: Performed By: #### U AMIC #### [facility] [address] [place] [address] Dr. Marvin Reis Urobilinogen Qn (U) 0.2 {Robbie'U}/dL Normal 0.2 - 1. [address] [facility] Comment on above: Performed By: #### U AMIC #### [facility] [address] [place] [address] Dr. Marvin Reis WBC 50-75 Abnormal NONE SEEN The [facility] Comment on above: Performed By: #### U AMIC #### [facility] [address] [place] [address] Dr. Marvin Reis YEAST PRESENT Abnormal NONE SEEN The [facility] Comment on above: Performed By: #### U AMIC #### [facility] [address] [place] [address] Dr. Marvin Reis CULTURE URINEon 12-25-2022 CULTURE [...] >=320 R F Normal [facility] Comment on above: Performed By: #### U RCX #### [facility] [address] [place] [address] Dr. Marvin Reis UA RANDOM W/MICROSCOPICon BACTERIA NONE SEEN Normal NONE SEEN The [facility] Comment on above: Performed By: #### U AMIC #### [facility] [address] [place] [address] Dr. Marvin Reis Bilirubin Ql (U) Negative Normal NEGATIVE [facility] Comment on above: Performed By: #### U AMIC #### [facility] [address] [place] [address] Dr. Marvin Reis CAST NONE SEEN Normal NONE SEEN [facility] Comment on above: Performed By: #### U AMIC #### [facility] [address] [place] [address] Dr. Marvin Reis Clarity (U) CLEAR Normal CLEAR [facility] Comment on above: Performed By: #### U AMIC #### [facility] [address] [address] [address] Marvin Reis Color (U) LT. YELLOW Normal YELLOW [facility] Comment on above: Performed By: #### U AMIC #### [facility] [address] [place] [address] Dr. Marvin Reis Crystals LM Nom (Urine sed) NONE SEEN Normal NONE SEEN [facility] Comment on above: Performed By: #### U AMIC #### [facility] [address] [place] [address] Dr. Marvin Reis Epithelial cells LM Ql (Urine sed) RARE Normal NONE SEEN /RARE [facility] Comment on above: Performed By: #### U AMIC #### [facility] [address] [place] [address] Dr. Marvin Reis Glucose Ql (U) Negative Normal NEGATIVE The [facility] Comment on above: Performed By: #### U AMIC #### [facility] [address] [place] [address] Dr. Marvin Reis Hemoglobin Ql (U) Negative Normal NEGATIVE [facility] Comment on above: Performed By: #### U AMIC #### [facility] [address] [address] [address] Marvin Reis Ketones Ql (U) Negative Normal NEGATIVE [facility] Comment on above: Performed By: #### U AMIC #### [facility] [address] [place] [address] Dr. Marvin Reis LEUKOCYTES MODERATE Abnormal NEGATIVE The [facility] Comment on above: Performed By: #### U AMIC #### [facility] [address] [place] [address] Dr. Marvin Reis MUCOUS NONE SEEN Normal NONE SEEN [facility] Comment on above: Performed By: #### U AMIC #### [facility] [address] [place] [address] Dr. Marvin Reis Nitrite Ql (U) Negative Normal NEGATIVE The [facility] Comment on above: Performed By: #### U AMIC #### [facility] [address] [place] [address] Dr. Marvin Reis pH (U) 5.5 [pH] Normal 5-[address] [facility] Comment on above: Performed By: #### U AMIC #### [facility] [address] [place] [address] Dr. Marvin Reis RBC NONE SEEN Abnormal 0-2 [facility] Comment on above: Performed By: #### U AMIC #### [facility] [address] [place] [address] Dr. Marvin Reis SPEC GRAVITY 1.015 Normal 1.005-<=1.[address] [facility] Comment on above: Performed By: #### U AMIC #### [facility] [address] [place] [address] Dr. Marvin Reis UA PROTEIN Negative Normal NEGATIVE/ TRACE [facility] Comment on above: Performed By: #### U AMIC #### [facility] [address] [place] [address] Dr. Marvin Reis Urobilinogen Qn (U) 0.2 {Robbie'U}/dL Normal 0.2 - 1. 0 [facility] Comment on above: Performed By: #### U AMIC #### [facility] [address] [place] [address] Dr. Marvin Reis WBC 10-20 Abnormal NONE SEEN The [facility] Comment on above: Performed By: #### U AMIC #### [facility] [address] [place] [address] Dr. Marvin Reis CULTURE URINEon 12-05-2022 CULTURE [...] <=20 S F Normal The [facility] Comment on above: Performed By: #### U RCX #### [facility] [address] [place] [address] Dr. Marvin Resi CREATININEon 12-03-2022 Creatinine [Mass/Vol] 0.88 mg/dL Normal 0.70-1.30 [facility] Comment on above: Performed By: #### U RCX #### [facility] [address] [place] [address] Dr. Marvin Reis EGFR-AF NIUEAN >60 Normal >=60 [facility] Comment on above: Performed By: #### U RCX #### [facility] [address] [place] [address] Dr. Marvin Reis EGFR-NON AF NIUEAN >60 Normal >=60 [facility] Comment on above: Performed By: #### U RCX #### [facility] [address] [place] [address] ABDOMEN WO/W CONon [...] Date: 2022-12-03 14:51 Normal [address] [facility] UA RANDOM W/MICROSCOPICon BACTERIA TRACE Abnormal NONE SEEN The [facility] Comment on above: Performed By: #### U RCX #### [facility] [address] [place] [address] Dr. Marvin Reis Bilirubin Ql (U) Negative Normal NEGATIVE [facility] Comment on above: Performed By: #### U RCX #### [facility] [address] [place] [address] Dr. Marvin Reis CAST NONE SEEN Normal NONE SEEN The [facility] Comment on above: Performed By: #### U RCX #### [facility] [address] [place] [address] Dr. Marvin Reis Clarity (U) CLEAR Normal CLEAR The [facility] Comment on above: Performed By: #### U RCX #### [facility] [address] [place] [address] Dr. Marvin Reis Color (U) LT. YELLOW Normal YELLOW The [facility] Comment on above: Performed By: #### U RCX #### [facility] [address] [place] [address] Dr. Marvin Reis Crystals LM Nom (Urine sed) NONE SEEN Normal NONE SEEN [facility] Comment on above: Performed By: #### U RCX #### [facility] [address] [place] [address] Dr. Marvin Reis Epithelial cells LM Ql (Urine sed) RARE Normal NONE SEEN /RARE The [facility] Comment on above: Performed By: #### U RCX #### [facility] [address] [address] [address] Marvin Reis Glucose Ql (U) Negative Normal NEGATIVE The [facility] Comment on above: Performed By: #### U RCX #### [facility] [address] [address] [address] Marvin Reis Hemoglobin Ql (U) TRACE-INTACT Abnormal NEGATIVE [facility] Comment on above: Performed By: #### U RCX #### [facility] [address] [address] [address] Marvin Reis Ketones Ql (U) Negative Normal NEGATIVE [facility] Comment on above: Performed By: #### U RCX #### [facility] [address] [place] [address] Dr. Marvin Reis LEUKOCYTES TRACE Abnormal NEGATIVE [facility] Comment on above: Performed By: #### U RCX #### [facility] [address] [address] [address] Marvin Reis MUCOUS TRACE Abnormal NONE SEEN [facility] Comment on above: Performed By: #### U RCX #### [facility] [address] [place] [address] Dr. Marvin Reis Nitrite Ql (U) Negative Normal NEGATIVE [facility] Comment on above: Performed By: #### U RCX #### [facility] [address] [address] [address] Marvin Reis pH (U) 5.0 [pH] Normal 5-9 [facility] Comment on above: Performed By: #### U RCX #### [facility] [address] [address] [address] Marvin Reis RBC 0-2 Normal 0-2 [facility] Comment on above: Performed By: #### U RCX #### [facility] [address] [place] [address] Dr. Marvin Reis SPEC GRAVITY 1.010 Normal 1.005-<=1.025 [facility] Comment on above: Performed By: #### U RCX #### [facility] [address] [place], [place] [address] Dr. Marvin Reis UA PROTEIN TRACE Normal NEGATIVE/ TRACE [facility] Comment on above: Performed By: #### U RCX #### [facility] [address] [place], [place] [address] Dr. Marvin Reis Urobilinogen Qn (U) 0.2 {Robbie'U}/dL Normal 0.2 - 1. [address] [facility] Comment on above: Performed By: #### U RCX #### [facility] [address] [address] [address] Marvin Reis WBC 2-5 Abnormal NONE SEEN The [facility] Comment on above: Performed By: #### U RCX #### [facility] [address] ABD/PELVIS WO CONon [...] Date: 2022-11-20 14:51 [address] [facility] CULTURE URINEon 11-11-2022 CULTURE URINE Culture Observations : GUSTABO TO FOLLOW. Isolate 1 Enterobacter aerogenes >100,000 cfu/mL of Normal [facility] Comment on above: Performed By: #### U RCX #### [facility] [address] [place] [address] Dr. Marvin Reis UA RANDOM W/MICROSCOPICon BACTERIA SMALL Abnormal NONE SEEN The [facility] Comment on above: Performed By: #### U AMIC #### [facility] [address] [place] [address] Dr. Marvin Reis Bilirubin Ql (U) Negative Normal NEGATIVE [facility] Comment on above: Performed By: #### U AMIC #### [facility] [address] [place] [address] Dr. Marvin Reis CAST NONE SEEN Normal NONE SEEN [facility] Comment on above: Performed By: #### U AMIC #### [facility] [address] [place] [address] Dr. Marvin Reis Clarity (U) CLOUDY Abnormal CLEAR [facility] Comment on above: Performed By: #### U AMIC #### [facility] [address] [place] [address] Dr. Marvin Reis Color (U) LT. YELLOW Normal YELLOW [facility] Comment on above: Performed By: #### U AMIC #### [facility] [address] [address] [address] Marvin Reis Crystals LM Nom (Urine sed) NONE SEEN Normal NONE SEEN [facility] Comment on above: Performed By: #### U AMIC #### [facility] [address] [address] [address] Marvin Reis Epithelial cells LM Ql (Urine sed) NONE SEEN Normal NONE SEEN /RARE [facility] Comment on above: Performed By: #### U AMIC #### [facility] [address] [address] [address] Marvin Reis Glucose Ql (U) Negative Normal NEGATIVE [facility] Comment on above: Performed By: #### U AMIC #### [facility] [address] [place] [address] Dr. Marvin Reis Hemoglobin Ql (U) TRACE-INTACT Abnormal NEGATIVE [facility] Comment on above: Performed By: #### U AMIC #### [facility] [address] [address] [address] Marvin Reis Ketones Ql (U) Negative Normal NEGATIVE [facility] Comment on above: Performed By: #### U AMIC #### [facility] [address] [address] [address] Marvin Reis LEUKOCYTES LARGE Abnormal NEGATIVE [facility] Comment on above: Performed By: #### U AMIC #### [facility] [address] [address] [address] Marvin Reis MUCOUS NONE SEEN Normal NONE SEEN [facility] Comment on above: Performed By: #### U AMIC #### [facility] [address] [place] [address] Dr. Marvin Reis Nitrite Ql (U) Positive Abnormal NEGATIVE [facility] Comment on above: Performed By: #### U AMIC #### [facility] [address] [place] [address] Dr. Marvin Reis pH (U) 5.5 [pH] Normal 5-[address] [facility] Comment on above: Performed By: #### U AMIC #### [facility] [address] [place] [address] Dr. Marvin Reis RBC 0-2 Normal 0-[address] [facility] Comment on above: Performed By: #### U AMIC #### [facility] [address] [place] [address] Dr. Marvin Reis SPEC GRAVITY 1.015 Normal 1.005-<=1.[address] [facility] Comment on above: Performed By: #### U AMIC #### [facility] [address] [place] [address] Dr. Marvin Reis UA PROTEIN Negative Normal NEGATIVE/ TRACE [facility] Comment on above: Performed By: #### U AMIC #### [facility] [address] [place] [address] Dr. Marvin Reis Urobilinogen Qn (U) 0.2 {Robbie'U}/dL Normal 0.2 - 1. 0 [facility] Comment on above: Performed By: #### U AMIC #### [facility] [address] [place] [address] Dr. Marvin Reis WBC 10-20 Abnormal NONE SEEN [facility] Comment on above: Performed By: #### U AMIC #### [facility] [address] [place] [address] Dr. Marvin Reis CULTURE URINEon 10-24-2022 CULTURE [...] <=20 S F Normal [facility] Comment on above: Performed By: #### U RCX #### [facility] [address] [place] [address] Dr. Marvin Reis UA RANDOM W/MICROSCOPICon BACTERIA LARGE Abnormal NONE SEEN The [facility] Comment on above: Performed By: #### U AMIC #### [facility] [address] [address] [address] Marvin Reis Bilirubin Ql (U) Negative Normal NEGATIVE [facility] Comment on above: Performed By: #### U AMIC #### [facility] [address] [address] [address] Marvin Reis CAST NONE SEEN Normal NONE SEEN [facility] Comment on above: Performed By: #### U AMIC #### [facility] [address] [address] [address] Marvin Reis Clarity (U) SL CLOUDY Abnormal CLEAR [facility] Comment on above: Performed By: #### U AMIC #### [facility] [address] [address] [address] Marvin Reis Color (U) YELLOW Normal YELLOW [facility] Comment on above: Performed By: #### U AMIC #### [facility] [address] [address] [address] Marvin Reis Crystals LM Nom (Urine sed) NONE SEEN Normal NONE SEEN [facility] Comment on above: Performed By: #### U AMIC #### [facility] [address] [address] [address] Marvin Reis Epithelial cells LM Ql (Urine sed) FEW Abnormal NONE SEEN /RARE [facility] Comment on above: Performed By: #### U AMIC #### [facility] [address] [address] [address] Marvin Reis Glucose Ql (U) Negative Normal NEGATIVE [facility] Comment on above: Performed By: #### U AMIC #### [facility] [address] [address] [address] Marvin Reis Hemoglobin Ql (U) TRACE-INTACT Abnormal NEGATIVE [facility] Comment on above: Performed By: #### U AMIC #### [facility] [address] [address] [address] Marvin Reis Ketones Ql (U) Negative Normal NEGATIVE [facility] Comment on above: Performed By: #### U AMIC #### [facility] [address] [address] [address] Marvin Reis LEUKOCYTES LARGE Abnormal NEGATIVE [facility] Comment on above: Performed By: #### U AMIC #### [facility] [address] [address] [address] Marvin Reis MUCOUS NONE SEEN Normal NONE SEEN [facility] Comment on above: Performed By: #### U AMIC #### [facility] [address] [address] [address] Marvin Reis Nitrite Ql (U) Negative Normal NEGATIVE [facility] Comment on above: Performed By: #### U AMIC #### [facility] [address] [address] [address] Marvin Reis pH (U) 5.0 [pH] Normal 5-9 [facility] Comment on above: Performed By: #### U AMIC #### [facility] [address] [address] [address] Marvin Reis RBC 5-10 Abnormal 0-[address] [facility] Comment on above: Performed By: #### U AMIC #### [facility] [address] [address] [address] Marvin Reis SPEC GRAVITY 1.010 Normal 1.005-<=1.[address] [facility] Comment on above: Performed By: #### U AMIC #### [facility] [address] [place] [address] Dr. Marvin Reis UA PROTEIN Negative Normal NEGATIVE/ TRACE [facility] Comment on above: Performed By: #### U AMIC #### [facility] [address] [place] [address] Dr. Marvin Reis Urobilinogen Qn (U) 0.2 {Robbie'U}/dL Normal 0.2 - 1. 0 [facility] Comment on above: Performed By: #### U AMIC #### [facility] [address] [address] [address] Marvin Reis WBC 50-75 Abnormal NONE SEEN [facility] Comment on above: Performed By: #### U AMIC #### [facility] [address] [address] [address] Marvin Reis CULTURE URINEon 10-01-2022 CULTURE URINE Culture Observations : NO GROWTH. Normal [facility] Comment on above: Performed By: #### U AMIC #### [facility] [address] [address] [address] Marvin Reis UA RANDOM W/MICROSCOPICon BACTERIA SMALL Abnormal NONE SEEN [facility] Comment on above: Performed By: #### U AMIC #### [facility] [address] [address] [address] Marvin Reis Bilirubin Ql (U) Negative Normal NEGATIVE [facility] Comment on above: Performed By: #### U AMIC #### [facility] [address] [address] [address] Marvin Reis CAST SEEN Abnormal NONE SEEN [facility] Comment on above: Performed By: #### U AMIC #### [facility] [address] [address] [address] Marvin Reis Clarity (U) CLEAR Normal CLEAR [facility] Comment on above: Performed By: #### U AMIC #### [facility] [address] [address] [address] Marvin Reis Color (U) LT. YELLOW Normal YELLOW [facility] Comment on above: Performed By: #### U AMIC #### [facility] [address] [address] [address] Marvin Reis Crystals LM Nom (Urine sed) NONE SEEN Normal NONE SEEN [facility] Comment on above: Performed By: #### U AMIC #### [facility] [address] [address] [address] Marvin Reis Epithelial cells LM Ql (Urine sed) FEW Abnormal NONE SEEN /RARE [facility] Comment on above: Performed By: #### U AMIC #### [facility] [address] [place] [address] Dr. Marvin Reis Glucose Ql (U) Negative Normal NEGATIVE [facility] Comment on above: Performed By: #### U AMIC #### [facility] [address] [place] [address] Dr. Marvin Reis Hemoglobin Ql (U) TRACE-INTACT Abnormal NEGATIVE [facility] Comment on above: Performed By: #### U AMIC #### [facility] [address] [address] [address] Marvin Reis HYALINE CAST FEW Normal [facility] Comment on above: Performed By: #### U AMIC #### [facility] [address] [place] [address] Dr. Marvin Reis Ketones Ql (U) Negative Normal NEGATIVE [facility] Comment on above: Performed By: #### U AMIC #### [facility] [address] [place] [address] Dr. Marvin Reis LEUKOCYTES MODERATE Abnormal NEGATIVE [facility] Comment on above: Performed By: #### U AMIC #### [facility] [address] [place] [address] Dr. Marvin Reis MUCOUS SMALL Abnormal NONE SEEN [facility] Comment on above: Performed By: #### U AMIC #### [facility] [address] [place] [address] Dr. Marvin Reis Nitrite Ql (U) Negative Normal NEGATIVE [facility] Comment on above: Performed By: #### U AMIC #### [facility] [address] [place] [address] Dr. Marvin Reis pH (U) 5.5 [pH] Normal 5-9 [facility] Comment on above: Performed By: #### U AMIC #### [facility] [address] [place] [address] Dr. Marvin Reis RBC 0-2 Normal 0-2 [facility] Comment on above: Performed By: #### U AMIC #### [facility] [address] [place] [address] Dr. Marvin Reis SPEC GRAVITY 1.020 Normal 1.005-<=1.[address] [facility] Comment on above: Performed By: #### U AMIC #### [facility] [address] [place] [address] Dr. Marvin Reis UA PROTEIN Negative Normal NEGATIVE/ TRACE [facility] Comment on above: Performed By: #### U AMIC #### [facility] [address] [address] [address] Marvin Reis Urobilinogen Qn (U) 0.2 {Robbie'U}/dL Normal 0.2 - 1. 0 [facility] Comment on above: Performed By: #### U AMIC #### [facility] [address] [address] [address] Marvin Reis WBC 10-20 Abnormal NONE SEEN [facility] Comment on above: Performed By: #### U AMIC #### [facility] [address] [address] [address] Marvin Reis CULTURE URINEon 09-26-2022 CULTURE [...] <=20 S F Normal [facility] Comment on above: Performed By: #### U RCX #### [facility] [address] [place] [address] Dr. Marvin Reis CBC W MANUAL DIFFon 09-25-20 ANISOCYTOSIS SLIGHT Normal [facility] Comment on above: Performed By: #### U RCX #### [facility] [address] [place] [address] Dr. Marvin Reis ATYPICAL LYMPH # Normal [facility] Comment on above: Performed By: #### U RCX #### [facility] [address] [place] [address] Dr. Marvin Reis ATYPICAL LYMPH % Normal [facility] Comment on above: Performed By: #### U RCX #### [facility] [address] [place] [address] Dr. Marvin Reis BAND # Normal 0.0-0.3 [facility] Comment on above: Performed By: #### U RCX #### [facility] [address] [place] [address] Dr. Marvin Reis BAND % Normal 0-5 [facility] Comment on above: Performed By: #### U RCX #### [facility] [address] [place] [address] Dr. Marvin Reis BASOM # 0.00 103/ul Normal 0.00-0.10 [facility] Comment on above: Performed By: #### U RCX #### [facility] [address] [place] [address] Dr. Marvin Reis BASOM % 0.0 % Critically low 0.2-2.[address] [facility] Comment on above: Performed By: #### U RCX #### [facility] [address] [place] [address] Dr. Marvin Reis BLAST # Normal [facility] Comment on above: Performed By: #### U RCX #### [facility] [address] [place] [address] Dr. Marvin Reis BLAST % Normal [facility] Comment on above: Performed By: #### U RCX #### [facility] [address] [place] [address] Dr. Marvin Reis CORRECTED WBC Normal 4.0-11.0 [facility] Comment on above: Performed By: #### U RCX #### [facility] [address] [place] [address] Dr. Marvin Reis EOS # 0.00 103/ul Normal 0.00-0.70 [facility] Comment on above: Performed By: #### U RCX #### [facility] [address] [place] [address] Dr. Marvin Reis EOS% 0.0 % Critically low 0.9-7.[address] [facility] Comment on above: Performed By: #### U RCX #### [facility] [address] [place] [address] Dr. Marvin Reis HCT 32.1 % Critically low 42.0-54.[address] [facility] Comment on above: Performed By: #### U RCX #### [facility] [address] [address] [address] Marvin Reis HGB 10.2 g/dl Critically low 14.0-18.[address] [facility] Comment on above: Performed By: #### U RCX #### [facility] [address] [address] [address] Marvin Reis LYMPHM # 0.76 103/ul Critically low 1.20-3.80 [facility] Comment on above: Performed By: #### U RCX #### [facility] [address] [place] [address] Dr. Marvin Reis LYMPHM% 14.0 % Critically low 20.5-60.[address] [facility] Comment on above: Performed By: #### U RCX #### [facility] [address] [place] [address] Dr. Marvin Reis MCH 26.5 pg Normal 25.9-34.0 [facility] Comment on above: Performed By: #### U RCX #### [facility] [address] [place] [address] Dr. Marvin Reis MCHC 31.8 g/dl Normal 29.9-35.2 [facility] Comment on above: Performed By: #### U RCX #### [facility] [address] [place] [address] Dr. Marvin Reis MCV 83.4 fL Normal 80.0-94.0 [facility] Comment on above: Performed By: #### U RCX #### [facility] [address] [address] [address] Marvin Reis METAMYELOCYTE # Normal [facility] Comment on above: Performed By: #### U RCX #### [facility] [address] [place] [address] Dr. Marvin Reis METAMYELOCYTE % Normal [facility] Comment on above: Performed By: #### U RCX #### [facility] [address] [address] [address] Marvin Reis MONOM# 0.27 103/ul Critically low 0.30-0.80 [facility] Comment on above: Performed By: #### U RCX #### [facility] [address] [address] [address] Marvin Reis MONOM% 5.0 % Normal 1.7-12.0 [facility] Comment on above: Performed By: #### U RCX #### [facility] [address] [address] [address] Marvin Reis MPV 9.8 fL Normal 9.5-13.5 [facility] Comment on above: Performed By: #### U RCX #### [facility] [address] [place] [address] Dr. Marvin Reis MYELOCYTE # Normal [facility] Comment on above: Performed By: #### U RCX #### [facility] [address] [address] [address] Marvin Reis MYELOCYTE % Normal [facility] Comment on above: Performed By: #### U RCX #### [facility] [address] [place] [address] Dr. Marvin Reis NRBC Normal [facility] Comment on above: Performed By: #### U RCX #### [facility] [address] [place] [address] Dr. Marvin Reis PLT 78 103/ul Critically low 150-450 [facility] Comment on above: Performed By: #### U RCX #### [facility] [address] [address] [address] Marvin Reis RBC 3.85 106/ul Critically low 4.70-6.[address] [facility] Comment on above: Performed By: #### U RCX #### [facility] [address] [place] [address] Dr. Marvin Reis RDW 15.8 % Critically high 11.0-15.[address] [facility] Comment on above: Performed By: #### U RCX #### [facility] [address] [address] [address] Marvin Reis SEG # 4.37 103/ul Normal 1.40-6.50 [facility] Comment on above: Performed By: #### U RCX #### [facility] [address] [address] [address] Marvin Reis SEG % 81.0 % Critically high 43.0-75.0 [facility] Comment on above: Performed By: #### U RCX #### [facility] [address] [place] [address] Dr. Marvin Reis WBC 5.4 103/ul Normal 4.0-11.0 [facility] Comment on above: Performed By: #### U RCX #### [facility] [address] [place] [address] Dr. Marvin Reis CRPon 09-25-2022 CRP 8.9 mg/dL Critically high <=1.0 [facility] Comment on above: Performed By: #### U AMIC #### [facility] [address] [place] [address] Dr. Marvin Reis LACTATE/LACTIC ACIDon 2021 Lactate [Moles/Vol] 0.9 mmol/L Normal 0.4-1.9 [facility] Comment on above: Performed By: #### U RCX #### [facility] [address] [place] [address] Dr. Marvin Reis PROF 14(COMP METB)on 022 Albumin [Mass/Vol] 2.6 g/dL Critically low 3.4-5.0 [facility] Comment on above: Performed By: #### U AMIC #### [facility] [address] [address] [address] Marvin Reis Albumin/Globulin [Mass ratio] 0.7 {ratio} Normal [facility] Comment on above: Performed By: #### U AMIC #### [facility] [address] [address] [address] Marvin Reis ALP [Catalytic activity/Vol] 75 U/L Normal 46-116 [facility] Comment on above: Performed By: #### U AMIC #### [facility] [address] [address] [address] Marvin Reis ALT [Catalytic activity/Vol] 23 U/L Normal 16-63 [facility] Comment on above: Performed By: #### U AMIC #### [facility] [address] [address] [address] Marvin Reis Anion gap [Moles/Vol] 11.8 mmol/L Normal [facility] Comment on above: Performed By: #### U AMIC #### [facility] [address] [address] [address] Marvin Reis AST [Catalytic activity/Vol] 21 U/L Normal 15-37 [facility] Comment on above: Performed By: #### U AMIC #### [facility] [address] [address] [address] Marvin Reis Bilirubin [Mass/Vol] 0.8 mg/dL Normal 0.2-1.0 [facility] Comment on above: Performed By: #### U AMIC #### [facility] [address] [address] [address] Marvin Reis Calcium [Mass/Vol] 8.7 mg/dL Normal 8.5-10.1 [facility] Comment on above: Performed By: #### U AMIC #### [facility] [address] [address] [address] Marvin Reis Chloride [Moles/Vol] 105 mmol/L Normal 98-[address] [facility] Comment on above: Performed By: #### U AMIC #### [facility] [address] [address] [address] Marvin Reis CO2 [Moles/Vol] 26.1 mmol/L Normal 21.0-32.0 [facility] Comment on above: Performed By: #### U AMIC #### [facility] [address] [address] [address] Marvin Reis Creatinine [Mass/Vol] 0.88 mg/dL Normal 0.70-1.30 [facility] Comment on above: Performed By: #### U AMIC #### [facility] [address] [address] [address] Marvin Reis EGFR-AF NIUEAN >60 Normal >=60 [facility] Comment on above: Performed By: #### U AMIC #### [facility] [address] [address] [address] Marvin Reis EGFR-NON AF NIUEAN >60 Normal >=60 [facility] Comment on above: Performed By: #### U AMIC #### [facility] [address] [address] [address] Marvin Reis Globulin (S) [Mass/Vol] 3.7 g/dL Normal [facility] Comment on above: Performed By: #### U AMIC #### [facility] [address] [address] [address] Marvin Reis Glucose [Mass/Vol] 93 mg/dL Normal 74-106 [facility] Comment on above: Performed By: #### U AMIC #### [facility] [address] [address] [address] Marvin Reis Potassium [Moles/Vol] 3.9 mmol/L Normal 3.5-5.1 [facility] Comment on above: Performed By: #### U AMIC #### [facility] [address] [address] [address] Marvin Reis Protein [Mass/Vol] 6.3 g/dL Critically low 6.4-8.[address] [facility] Comment on above: Performed By: #### U AMIC #### [facility] [address] [address] [address] Marvin Reis Sodium [Moles/Vol] 139 mmol/L Normal 136-145 [facility] Comment on above: Performed By: #### U AMIC #### [facility] [address] [address] [address] Marvin Reis Urea nitrogen [Mass/Vol] 20.0 mg/dL Critically high 7.0-18.0 [facility] Comment on above: Performed By: #### U AMIC #### [facility] [address] [place] [address] Dr. Marvin Reis Urea nitrogen/Creatinine [Mass ratio] 22.7 mg/mg Normal [facility] Comment on above: Performed By: #### U AMIC #### [facility] [address] [place] [address] Dr. Marvin Reis SED RATE WESTERGRENon 2021 SED RATE 49 mm/hr Critically high <=[address] [facility] Comment on above: Performed By: #### U AMIC #### [facility] [address] [place] [address] Dr. Marvin Reis CBC W MANUAL DIFFon 09-24-20 ATYPICAL LYMPH # Normal [facility] Comment on above: Performed By: #### U RCX #### [facility] [address] [place] [address] Dr. Marvin Reis ATYPICAL LYMPH % Normal [facility] Comment on above: Performed By: #### U RCX #### [facility] [address] [place] [address] Dr. Marvin Reis BAND # Normal 0.0-0.3 [facility] Comment on above: Performed By: #### U RCX #### [facility] [address] [place] [address] Dr. Marvin Reis BAND % Normal 0-5 [facility] Comment on above: Performed By: #### U RCX #### [facility] [address] [place] [address] Dr. Marvin Reis BASOM # 0.00 103/ul Normal 0.00-0.10 [facility] Comment on above: Performed By: #### U RCX #### [facility] [address] [address] [address] Marvin Reis BASOM % 0.0 % Critically low 0.2-2.[address] [facility] Comment on above: Performed By: #### U RCX #### [facility] [address] [place] [address] Dr. Marvin Reis BLAST # Normal [facility] Comment on above: Performed By: #### U RCX #### [facility] [address] [address] [address] Marvin Reis BLAST % Normal [facility] Comment on above: Performed By: #### U RCX #### [facility] [address] [place] [address] Dr. Marvin Reis CORRECTED WBC Normal 4.0-11.0 [facility] Comment on above: Performed By: #### U RCX #### [facility] [address] [address] [address] Marvin Reis EOS # 0.00 103/ul Normal 0.00-0.70 [facility] Comment on above: Performed By: #### U RCX #### [facility] [address] [place] [address] Dr. Marvin Reis EOS% 0.0 % Critically low 0.9-7.[address] [facility] Comment on above: Performed By: #### U RCX #### [facility] [address] [place] [address] Dr. Marvin Reis HCT 33.5 % Critically low 42.0-54.[address] [facility] Comment on above: Performed By: #### U RCX #### [facility] [address] [place] [address] Dr. Marvin Reis HGB 10.9 g/dl Critically low 14.0-18.[address] [facility] Comment on above: Performed By: #### U RCX #### [facility] [address] [place] [address] Dr. Marvin Reis LYMPHM # 0.52 103/ul Critically low 1.20-3.[address] [facility] Comment on above: Performed By: #### U RCX #### [facility] [address] [place] [address] Dr. Marvin Reis LYMPHM% 4.0 % Critically low 20.5-60.[address] [facility] Comment on above: Performed By: #### U RCX #### [facility] [address] [place] [address] Dr. Marvin Ries MCH 27.2 pg Normal 25.9-34.0 [facility] Comment on above: Performed By: #### U RCX #### [facility] [address] [place] [address] Dr. Marvin Reis MCHC 32.5 g/dl Normal 29.9-35.2 [facility] Comment on above: Performed By: #### U RCX #### [facility] [address] [address] [address] Marvin Reis MCV 83.5 fL Normal 80.0-94.0 [facility] Comment on above: Performed By: #### U RCX #### [facility] [address] [place] [address] Dr. Marvin Reis METAMYELOCYTE # Normal [facility] Comment on above: Performed By: #### U RCX #### [facility] [address] [place] [address] Dr. Marvin Reis METAMYELOCYTE % Normal [facility] Comment on above: Performed By: #### U RCX #### [facility] [address] [place] [address] Dr. Marvin Reis MONOM# 0.39 103/ul Normal 0.30-0.80 [facility] Comment on above: Performed By: #### U RCX #### [facility] [address] [place] [address] Dr. Marvin Reis MONOM% 3.0 % Normal 1.7-12.0 [facility] Comment on above: Performed By: #### U RCX #### [facility] [address] [place] [address] Dr. Marvin Reis MPV 10.5 fL Normal 9.5-13.5 [facility] Comment on above: Performed By: #### U RCX #### [facility] [address] [place] [address] Dr. Marvin Reis MYELOCYTE # Normal [facility] Comment on above: Performed By: #### U RCX #### [facility] [address] [place] [address] Dr. Marvin Reis MYELOCYTE % Normal [facility] Comment on above: Performed By: #### U RCX #### [facility] [address] [address] [address] Marvin Reis NRBC Normal [facility] Comment on above: Performed By: #### U RCX #### [facility] [address] [address] [address] Marvin Reis PLT 96 103/ul Critically low 150-450 [facility] Comment on above: Performed By: #### U RCX #### [facility] [address] [address] [address] Marvin Reis RBC 4.01 106/ul Critically low 4.70-6.[address] [facility] Comment on above: Performed By: #### U RCX #### [facility] [address] [address] [address] Marvin Reis RDW 15.8 % Critically high 11.0-15.0 [facility] Comment on above: Performed By: #### U RCX #### [facility] [address] [address] [address] Marvin Reis SEG # 12.00 103/ul Critically high 1.40-6.50 [facility] Comment on above: Performed By: #### U RCX #### [facility] [address] [address] [address] Marvin Reis SEG % 93.0 % Critically high 43.0-75.[address] [facility] Comment on above: Performed By: #### U RCX #### [facility] [address] [address] [address] Marvin Reis WBC 12.9 103/ul Critically high 4.0-11.0 [facility] Comment on above: Performed By: #### U RCX #### [facility] [address] [address] [address] Marvin Reis CRPon 09-24-2022 CRP 8.4 mg/dL Critically high <=1.[address] [facility] Comment on above: Performed By: #### U AMIC #### [facility] [address] [address] [address] Marvin Reis LACTATE/LACTIC ACIDon 2021 Lactate [Moles/Vol] 2.2 mmol/L Critically high 0.4-1.9 [facility] Comment on above: Performed By: #### L ACT #### [facility] [address] [address] [address] Marvin Reis PROF 14(COMP METB)on 022 Albumin [Mass/Vol] 2.8 g/dL Critically low 3.4-5.[address] [facility] Comment on above: Performed By: #### U AMIC #### [facility] [address] [place] [address] Dr. Marvin Reis Albumin/Globulin [Mass ratio] 0.7 {ratio} Normal [facility] Comment on above: Performed By: #### U AMIC #### [facility] [address] [place] [address] Dr. Marvin Reis ALP [Catalytic activity/Vol] 80 U/L Normal 46-116 [facility] Comment on above: Performed By: #### U AMIC #### [facility] [address] [place] [address] Dr. Marvin Reis ALT [Catalytic activity/Vol] 20 U/L Normal 16-63 [facility] Comment on above: Performed By: #### U AMIC #### [facility] [address] [place] [address] Dr. Marvin Reis Anion gap [Moles/Vol] 12.3 mmol/L Normal [facility] Comment on above: Performed By: #### U AMIC #### [facility] [address] [place] [address] Dr. Marvin Reis AST [Catalytic activity/Vol] 17 U/L Normal 15-37 [facility] Comment on above: Performed By: #### U AMIC #### [facility] [address] [place] [address] Dr. Marvin Reis Bilirubin [Mass/Vol] 1.0 mg/dL Normal 0.2-1.0 [facility] Comment on above: Performed By: #### U AMIC #### [facility] [address] [address] [address] Marvin Reis Calcium [Mass/Vol] 9.0 mg/dL Normal 8.5-10.1 [facility] Comment on above: Performed By: #### U AMIC #### [facility] [address] [address] [address] Marvin Reis Chloride [Moles/Vol] 106 mmol/L Normal 98-107 [facility] Comment on above: Performed By: #### U AMIC #### [facility] [address] [address] [address] Marvin Reis CO2 [Moles/Vol] 25.8 mmol/L Normal 21.0-32.0 [facility] Comment on above: Performed By: #### U AMIC #### [facility] [address] [place] [address] Dr. Marvin Reis Creatinine [Mass/Vol] 1.08 mg/dL Normal 0.70-1.30 [facility] Comment on above: Performed By: #### U AMIC #### [facility] [address] [address] [address] Marvin Reis EGFR-AF NIUEAN >60 Normal >=60 [facility] Comment on above: Performed By: #### U AMIC #### [facility] [address] [address] [address] Marvin Reis EGFR-NON AF NIUEAN >60 Normal >=60 [facility] Comment on above: Performed By: #### U AMIC #### [facility] [address] [address] [address] Marvin Reis Globulin (S) [Mass/Vol] 3.8 g/dL Normal [facility] Comment on above: Performed By: #### U AMIC #### [facility] [address] [address] [address] Marvin Reis Glucose [Mass/Vol] 117 mg/dL Critically high 74-106 [facility] Comment on above: Performed By: #### U AMIC #### [facility] [address] [address] [address] Marvin Reis Potassium [Moles/Vol] 4.1 mmol/L Normal 3.5-5.1 [facility] Comment on above: Performed By: #### U AMIC #### [facility] [address] [address] [address] Marvin Reis Protein [Mass/Vol] 6.6 g/dL Normal 6.4-8.2 [facility] Comment on above: Performed By: #### U AMIC #### [facility] [address] [address] [address] Marvin Reis Sodium [Moles/Vol] 140 mmol/L Normal 136-145 [facility] Comment on above: Performed By: #### U AMIC #### [facility] [address] [place] [address] Dr. Marvin Reis Urea nitrogen [Mass/Vol] 23.0 mg/dL Critically high 7.0-18.0 [facility] Comment on above: Performed By: #### U AMIC #### [facility] [address] [place] [address] Dr. Marvin Reis Urea nitrogen/Creatinine [Mass ratio] 21.3 mg/mg Normal [facility] Comment on above: Performed By: #### U AMIC #### [facility] [address] [place] [address] Dr. Marvin Reis SED RATE [facility] 2021 SED RATE 51 mm/hr Critically high <=[address] [facility] Comment on above: Performed By: #### U RCX #### [facility] [address] [place] [address] Dr. Marvin Reis UA RANDOMon 09-24-2022 Bilirubin Ql (U) Negative Normal NEGATIVE [facility] Comment on above: Performed By: #### U AMIC #### [facility] [address] [place] [address] Dr. Marvin Reis Clarity (U) CLEAR Normal CLEAR [facility] Comment on above: Performed By: #### U AMIC #### [facility] [address] [place] [address] Dr. Marvin Reis Color (U) LT. YELLOW Normal YELLOW [facility] Comment on above: Performed By: #### U AMIC #### [facility] [address] [address] [address] Marvin Reis Glucose Ql (U) Negative Normal NEGATIVE [facility] Comment on above: Performed By: #### U AMIC #### [facility] [address] [address] [address] Marvin Reis Hemoglobin Ql (U) LARGE Abnormal NEGATIVE [facility] Comment on above: Performed By: #### U AMIC #### [facility] [address] [address] [address] Marvin Reis Ketones Ql (U) Negative Normal NEGATIVE [facility] Comment on above: Performed By: #### U AMIC #### [facility] [address] [place] [address] Dr. Marvin Reis LEUKOCYTES MODERATE Abnormal NEGATIVE [facility] Comment on above: Performed By: #### U AMIC #### [facility] [address] [place] [address] Dr. Marvin Reis Nitrite Ql (U) Negative Normal NEGATIVE [facility] Comment on above: Performed By: #### U AMIC #### [facility] [address] [address] [address] Marvin Reis pH (U) 5.5 [pH] Normal 5-9 [facility] Comment on above: Performed By: #### U AMIC #### [facility] [address] [address] [address] Marvin Reis SPEC GRAVITY 1.020 Normal 1.005-<=1.[address] [facility] Comment on above: Performed By: #### U AMIC #### [facility] [address] [place] [address] Dr. Marvin Reis UA PROTEIN Negative Normal NEGATIVE/ TRACE [facility] Comment on above: Performed By: #### U AMIC #### [facility] [address] [place] [address] Dr. Marvin Reis Urobilinogen Qn (U) 0.2 {Robbie'U}/dL Normal 0.2 - 1. [address] [facility] Comment on above: Performed By: #### U AMIC #### [facility] [address] [place] [address] Dr. Marvin Reis CULTURE URINEon 09-13-2022 CULTURE [...] >=4 R F Normal [facility] Comment on above: Performed By: #### U RCX #### [facility] [address] [place] [address] Dr. Marvin Reis UA RANDOM W/MICROSCOPICon BACTERIA TRACE Abnormal NONE SEEN [facility] Comment on above: Performed By: #### U AMIC #### [facility] [address] [place] [address] Dr. Marvin Reis Bilirubin Ql (U) Negative Normal NEGATIVE [facility] Comment on above: Performed By: #### U AMIC #### [facility] [address] [place] [address] Dr. Marvin Reis CAST NONE SEEN Normal NONE SEEN [facility] Comment on above: Performed By: #### U AMIC #### [facility] [address] [place] [address] Dr. Marvin Reis Clarity (U) CLEAR Normal CLEAR [facility] Comment on above: Performed By: #### U AMIC #### [facility] [address] [place] [address] Dr. Marvin Reis Color (U) LT. YELLOW Normal YELLOW [facility] Comment on above: Performed By: #### U AMIC #### [facility] [address] [address] [address] Marvin Reis Crystals LM Nom (Urine sed) NONE SEEN Normal NONE SEEN [facility] Comment on above: Performed By: #### U AMIC #### [facility] [address] [address] [address] Marvin Reis Epithelial cells LM Ql (Urine sed) FEW Abnormal NONE SEEN /RARE [facility] Comment on above: Performed By: #### U AMIC #### [facility] [address] [address] [address] Marvin Reis Glucose Ql (U) Negative Normal NEGATIVE [facility] Comment on above: Performed By: #### U AMIC #### [facility] [address] [address] Dr. Marvin Reis Hemoglobin Ql (U) Negative Normal NEGATIVE [facility] Comment on above: Performed By: #### U AMIC #### [facility] [address] [address] [address] Marvin Reis Ketones Ql (U) Negative Normal NEGATIVE The [facility] Comment on above: Performed By: #### U AMIC #### [facility] [address] [address] [address] Marvin Reis LEUKOCYTES LARGE Abnormal NEGATIVE The [facility] Comment on above: Performed By: #### U AMIC #### [facility] [address] [address] [address] Marvin Reis MUCOUS NONE SEEN Normal NONE SEEN [facility] Comment on above: Performed By: #### U AMIC #### [facility] [address] [address] [address] Marvin Reis Nitrite Ql (U) Negative Normal NEGATIVE [facility] Comment on above: Performed By: #### U AMIC #### [facility] [address] [address] [address] Marvin Reis pH (U) 5.5 [pH] Normal 5-[address] [facility] Comment on above: Performed By: #### U AMIC #### [facility] [address] [address] [address] Marvin Reis RBC 0-2 Normal 0-[address] [facility] Comment on above: Performed By: #### U AMIC #### [facility] [address] [place] [address] Dr. Marvin Reis SPEC GRAVITY 1.025 Normal 1.005-<=1.[address] [facility] Comment on above: Performed By: #### U AMIC #### [facility] [address] [place] [address] Dr. Marvin Reis UA PROTEIN Negative Normal NEGATIVE/ TRACE The [facility] Comment on above: Performed By: #### U AMIC #### [facility] [address] [place] [address] Dr. Marvin Reis Urobilinogen Qn (U) 0.2 {Robbie'U}/dL Normal 0.2 - 1. 0 [facility] Comment on above: Performed By: #### U AMIC #### [facility] [address] [place] [address] Dr. Marvin Reis WBC 10-20 Abnormal NONE SEEN [facility] Comment on above: Performed By: #### U AMIC #### [facility] [address] [place] [address] Dr. Marvin Reis CULTURE URINEon 08-17-2022 CULTURE [...] <=20 S F Normal The [facility] Comment on above: Performed By: #### U RCX #### [facility] [address] [place] [address] Dr. Marvin Reis UA RANDOM W/MICROSCOPICon 10 -13-2022 BACTERIA MODERATE Abnormal NONE SEEN The [facility] Comment on above: Performed By: #### U RCX #### [facility] [address] [address] [address] Marvin Reis Bilirubin Ql (U) Negative Normal NEGATIVE The [facility] Comment on above: Performed By: #### U RCX #### [facility] [address] [place] [address] Dr. Marvin Reis CAST NONE SEEN Normal NONE SEEN The [facility] Comment on above: Performed By: #### U RCX #### [facility] [address] [address] [address] Marvin Reis Clarity (U) SL CLOUDY Abnormal CLEAR The [facility] Comment on above: Performed By: #### U RCX #### [facility] [address] [place] [address] Dr. Marvin Reis Color (U) LT. YELLOW Normal YELLOW The [facility] Comment on above: Performed By: #### U RCX #### [facility] [address] [address] [address] Marvin Reis Crystals LM Nom (Urine sed) NONE SEEN Normal NONE SEEN [facility] Comment on above: Performed By: #### U RCX #### [facility] [address] [place] [address] Dr. Marvin Reis Epithelial cells LM Ql (Urine sed) RARE Normal NONE SEEN /RARE The [facility] Comment on above: Performed By: #### U RCX #### [facility] [address] [place] [address] Dr. Marvin Reis Glucose Ql (U) Negative Normal NEGATIVE [facility] Comment on above: Performed By: #### U RCX #### [facility] [address] [address] [address] Marvin Reis Hemoglobin Ql (U) SMALL Abnormal NEGATIVE [facility] Comment on above: Performed By: #### U RCX #### [facility] [address] [place] [address] Dr. Marvin Reis Ketones Ql (U) Negative Normal NEGATIVE [facility] Comment on above: Performed By: #### U RCX #### [facility] [address] [address] [address] Marvin Reis LEUKOCYTES MODERATE Abnormal NEGATIVE The [facility] Comment on above: Performed By: #### U RCX #### [facility] [address] [place] [address] Dr. Marvin Reis MUCOUS NONE SEEN Normal NONE SEEN The [facility] Comment on above: Performed By: #### U RCX #### [facility] [address] [address] [address] Marvin Reis Nitrite Ql (U) Positive Abnormal NEGATIVE [facility] Comment on above: Performed By: #### U RCX #### [facility] [address] [place] [address] Dr. Marvin Reis pH (U) 6.0 [pH] Normal 5-9 [facility] Comment on above: Performed By: #### U RCX #### [facility] [address] [place] [address] Dr. Marvin Reis RBC 0-2 Normal 0-[address] [facility] Comment on above: Performed By: #### U RCX #### [facility] [address] [address] [address] Marvin Reis SPEC GRAVITY 1.015 Normal 1.005-<=1.[address] [facility] Comment on above: Performed By: #### U RCX #### [facility] [address] [place] [address] Dr. Marvin Reis UA PROTEIN Negative Normal NEGATIVE/ TRACE The [facility] Comment on above: Performed By: #### U RCX #### [facility] [address] [place] [address] Dr. Marvin Reis Urobilinogen Qn (U) 0.2 {Robbie'U}/dL Normal 0.2 - 1. 0 [facility] Comment on above: Performed By: #### U RCX #### [facility] [address] [place] [address] Dr. Marvin Reis WBC 10-20 Abnormal NONE SEEN The [facility] Comment on above: Performed By: #### U RCX #### [facility] [address] [place] [address] Dr. Marvin Reis CULTURE URINEon 08-02-2022 CULTURE [...] <=20 S F Normal The [facility] Comment on above: Performed By: #### U RCX #### [facility] [address] [place] [address] Dr. Marvin Reis UA RANDOM W/MICROSCOPICon BACTERIA MODERATE Abnormal NONE SEEN [facility] Comment on above: Performed By: #### U AMIC #### [facility] [address] [place] [address] Dr. Marvin Reis Bilirubin Ql (U) Negative Normal NEGATIVE [facility] Comment on above: Performed By: #### U AMIC #### [facility] [address] [place] [address] Dr. Marvin Reis CAST NONE SEEN Normal NONE SEEN [facility] Comment on above: Performed By: #### U AMIC #### [facility] [address] [place] [address] Dr. Marvin Reis Clarity (U) SL CLOUDY Abnormal CLEAR The [facility] Comment on above: Performed By: #### U AMIC #### [facility] [address] [place] [address] Dr. Marvin Reis Color (U) LT. YELLOW Normal YELLOW The [facility] Comment on above: Performed By: #### U AMIC #### [facility] [address] [place] [address] Dr. Marvin Reis Crystals LM Nom (Urine sed) NONE SEEN Normal NONE SEEN [facility] Comment on above: Performed By: #### U AMIC #### [facility] [address] [address] [address] Marvin Reis Epithelial cells LM Ql (Urine sed) NONE SEEN Normal NONE SEEN /RARE The [facility] Comment on above: Performed By: #### U AMIC #### [facility] [address] [address] [address] Marvin Reis Glucose Ql (U) Negative Normal NEGATIVE [facility] Comment on above: Performed By: #### U AMIC #### [facility] [address] [address] [address] Marvin Reis Hemoglobin Ql (U) TRACE-INTACT Abnormal NEGATIVE [facility] Comment on above: Performed By: #### U AMIC #### [facility] [address] [place] [address] Dr. Marvin Reis Ketones Ql (U) Negative Normal NEGATIVE [facility] Comment on above: Performed By: #### U AMIC #### [facility] [address] [address] [address] Marvin Reis LEUKOCYTES MODERATE Abnormal NEGATIVE [facility] Comment on above: Performed By: #### U AMIC #### [facility] [address] [address] [address] Marvin Reis MUCOUS NONE SEEN Normal NONE SEEN [facility] Comment on above: Performed By: #### U AMIC #### [facility] [address] [address] [address] Marvin Reis Nitrite Ql (U) Positive Abnormal NEGATIVE [facility] Comment on above: Performed By: #### U AMIC #### [facility] [address] [address] [address] Marvin Reis pH (U) 6.0 [pH] Normal 5-[address] [facility] Comment on above: Performed By: #### U AMIC #### [facility] [address] [address] [address] Marvin Reis RBC 0-2 Normal 0-2 [facility] Comment on above: Performed By: #### U AMIC #### [facility] [address] [place] [address] Dr. Marvin Reis SPEC GRAVITY 1.015 Normal 1.005-<=1.[address] [facility] Comment on above: Performed By: #### U AMIC #### [facility] [address] [place] [address] Dr. Marvin Reis UA PROTEIN Negative Normal NEGATIVE/ TRACE The [facility] Comment on above: Performed By: #### U AMIC #### [facility] [address] [place] [address] Dr. Marvin Reis Urobilinogen Qn (U) 0.2 {Robbie'U}/dL Normal 0.2 - 1. 0 [facility] Comment on above: Performed By: #### U AMIC #### [facility] [address] [place] [address] Dr. Marvin Reis WBC 20-50 Abnormal NONE SEEN The [facility] Comment on above: Performed By: #### U AMIC #### [facility] [address] [place] [address] Dr. Marvin Reis CULTURE URINEon 06-27-2022 CULTURE [...] >=4 R F Normal [facility] Comment on above: Performed By: #### U AMIC #### [facility] [address] [place] [address] Dr. Marvin Reis UA RANDOM W/MICROSCOPICon BACTERIA LARGE Abnormal NONE SEEN The [facility] Comment on above: Performed By: #### U RCX #### [facility] [address] [address] [address] Marvin Reis Bilirubin Ql (U) Negative Normal NEGATIVE [facility] Comment on above: Performed By: #### U RCX #### [facility] [address] [address] [address] Marvin Reis CAST NONE SEEN Normal NONE SEEN [facility] Comment on above: Performed By: #### U RCX #### [facility] [address] [address] [address] Marvin Reis Clarity (U) CLEAR Normal CLEAR The [facility] Comment on above: Performed By: #### U RCX #### [facility] [address] [place] [address] Dr. Marvin Reis Color (U) LT. YELLOW Normal YELLOW The [facility] Comment on above: Performed By: #### U RCX #### [facility] [address] [place] [address] Dr. Marvin Reis Crystals LM Nom (Urine sed) NONE SEEN Normal NONE SEEN [facility] Comment on above: Performed By: #### U RCX #### [facility] [address] [address] [address] Marvin Reis Epithelial cells LM Ql (Urine sed) FEW Abnormal NONE SEEN /RARE The [facility] Comment on above: Performed By: #### U RCX #### [facility] [address] [place] [address] Dr. Marvin Reis Glucose Ql (U) Negative Normal NEGATIVE [facility] Comment on above: Performed By: #### U RCX #### [facility] [address] [address] [address] Marvin Reis Hemoglobin Ql (U) TRACE-INTACT Abnormal NEGATIVE [facility] Comment on above: Performed By: #### U RCX #### [facility] [address] [place] [address] Dr. Marvin Reis Ketones Ql (U) Negative Normal NEGATIVE [facility] Comment on above: Performed By: #### U RCX #### [facility] [address] [address] [address] Marvin Reis LEUKOCYTES LARGE Abnormal NEGATIVE The [facility] Comment on above: Performed By: #### U RCX #### [facility] [address] [place] [address] Dr. Marvin Reis MUCOUS NONE SEEN Normal NONE SEEN [facility] Comment on above: Performed By: #### U RCX #### [facility] [address] [place] [address] Dr. Marvin Reis Nitrite Ql (U) Positive Abnormal NEGATIVE [facility] Comment on above: Performed By: #### U RCX #### [facility] [address] [place] [address] Dr. Marvin Reis pH (U) 5.5 [pH] Normal 5-[address] [facility] Comment on above: Performed By: #### U RCX #### [facility] [address] [place] [address] Dr. Marvin Reis RBC 2-5 Abnormal 0-[address] [facility] Comment on above: Performed By: #### U RCX #### [facility] [address] [place] [address] Dr. Marvin Reis SPEC GRAVITY 1.015 Normal 1.005-<=1.[address] [facility] Comment on above: Performed By: #### U RCX #### [facility] [address] [place] [address] Dr. Marvin Reis UA PROTEIN Negative Normal NEGATIVE/ TRACE The [facility] Comment on above: Performed By: #### U RCX #### [facility] [address] [place] [address] Dr. Marvin Reis Urobilinogen Qn (U) 0.2 {Robbie'U}/dL Normal 0.2 - 1. [address] [facility] Comment on above: Performed By: #### U RCX #### [facility] [address] [place] [address] Dr. Marvin Reis WBC (U) [#/Vol] /uL Abnormal NONE SEEN The [facility] Comment on above: Performed By: #### U RCX #### [facility] [address] [place] [address] Dr. Marvin Reis CULTURE URINEon 05-27-2022 CULTURE [...] >=4 R F Normal [facility] Comment on above: Performed By: #### U RCX #### [facility] [address] [place] [address] Dr. Marvin Reis UA RANDOM W/MICROSCOPICon BACTERIA MODERATE Abnormal NONE SEEN The [facility] Comment on above: Performed By: #### U RCX #### [facility] [address] [place] [address] Dr. Marvin Reis Bilirubin Ql (U) Negative Normal NEGATIVE [facility] Comment on above: Performed By: #### U RCX #### [facility] [address] [place] [address] Dr. Marvin Reis CAST NONE SEEN Normal NONE SEEN [facility] Comment on above: Performed By: #### U RCX #### [facility] [address] [place] [address] Dr. Marvin Reis Clarity (U) SL CLOUDY Abnormal CLEAR [facility] Comment on above: Performed By: #### U RCX #### [facility] [address] [place] [address] Dr. Marvin Reis Color (U) LT. YELLOW Normal YELLOW [facility] Comment on above: Performed By: #### U RCX #### [facility] [address] [place] [address] Dr. Marvin Reis Crystals LM Nom (Urine sed) NONE SEEN Normal NONE SEEN [facility] Comment on above: Performed By: #### U RCX #### [facility] [address] [address] [address] Marvin Reis Epithelial cells LM Ql (Urine sed) FEW Abnormal NONE SEEN /RARE [facility] Comment on above: Performed By: #### U RCX #### [facility] [address] [address] [address] Marvin Reis Glucose Ql (U) Negative Normal NEGATIVE [facility] Comment on above: Performed By: #### U RCX #### [facility] [address] [address] [address] Marvin Reis Hemoglobin Ql (U) SMALL Abnormal NEGATIVE [facility] Comment on above: Performed By: #### U RCX #### [facility] [address] [place] [address] Dr. Marvin Reis Ketones Ql (U) Negative Normal NEGATIVE [facility] Comment on above: Performed By: #### U RCX #### [facility] [address] [address] [address] Marvin Reis LEUKOCYTES LARGE Abnormal NEGATIVE [facility] Comment on above: Performed By: #### U RCX #### [facility] [address] [address] [address] Marvin Reis MUCOUS TRACE Abnormal NONE SEEN [facility] Comment on above: Performed By: #### U RCX #### [facility] [address] [address] [address] Marvin Reis Nitrite Ql (U) Negative Normal NEGATIVE [facility] Comment on above: Performed By: #### U RCX #### [facility] [address] [address] [address] Marvin Reis pH (U) 6.0 [pH] Normal 5-[address] [facility] Comment on above: Performed By: #### U RCX #### [facility] [address] [address] [address] Marvin Reis RBC 2-5 Abnormal 0-2 [facility] Comment on above: Performed By: #### U RCX #### [facility] [address] [address] [address] Marvin Reis SPEC GRAVITY 1.010 Normal 1.005-<=1.[address] [facility] Comment on above: Performed By: #### U RCX #### [facility] [address] [address] [address] Marvin Reis UA PROTEIN Negative Normal NEGATIVE/ TRACE The [facility] Comment on above: Performed By: #### U RCX #### [facility] [address] [address] [address] Marvin Reis Urobilinogen Qn (U) 0.2 {Robbie'U}/dL Normal 0.2 - 1. 0 [facility] Comment on above: Performed By: #### U RCX #### [facility] [address] [place] [address] Dr. Marvin Reis WBC 50-75 Abnormal NONE SEEN The [facility] Comment on above: Performed By: #### U RCX #### [facility] [address] [place] [address] Dr. Marvin Reis CULTURE URINEon 04-18-2022 CULTURE [...] >=4 R F Normal [facility] Comment on above: Performed By: #### U RCX #### [facility] [address] [address] [address] Marvin Reis UA RANDOM W/MICROSCOPICon BACTERIA TRACE Abnormal NONE SEEN [facility] Comment on above: Performed By: #### U AMIC #### [facility] [address] [address] [address] Marvin Reis Bilirubin Ql (U) Negative Normal NEGATIVE [facility] Comment on above: Performed By: #### U AMIC #### [facility] [address] [address] [address] Marvin Reis CAST NONE SEEN Normal NONE SEEN [facility] Comment on above: Performed By: #### U AMIC #### [facility] [address] [address] [address] Marvin Reis Clarity (U) CLEAR Normal CLEAR [facility] Comment on above: Performed By: #### U AMIC #### [facility] [address] [address] [address] Marvin Reis Color (U) LT. YELLOW Normal YELLOW [facility] Comment on above: Performed By: #### U AMIC #### [facility] [address] [address] [address] Marvin Reis Crystals LM Nom (Urine sed) NONE SEEN Normal NONE SEEN [facility] Comment on above: Performed By: #### U AMIC #### [facility] [address] [address] [address] Marvin Reis Epithelial cells LM Ql (Urine sed) FEW Abnormal NONE SEEN /RARE [facility] Comment on above: Performed By: #### U AMIC #### [facility] [address] [address] [address] Marvin Reis Glucose Ql (U) Negative Normal NEGATIVE [facility] Comment on above: Performed By: #### U AMIC #### [facility] [address] [address] [address] Marvin Reis Hemoglobin Ql (U) TRACE-INTACT Abnormal NEGATIVE [facility] Comment on above: Performed By: #### U AMIC #### [facility] [address] [address] [address] Marvni Reis Ketones Ql (U) Negative Normal NEGATIVE [facility] Comment on above: Performed By: #### U AMIC #### [facility] [address] [place] [address] Dr. Marvin Reis LEUKOCYTES SMALL Abnormal NEGATIVE [facility] Comment on above: Performed By: #### U AMIC #### [facility] [address] [place] [address] Dr. Marvin Reis MUCOUS NONE SEEN Normal NONE SEEN [facility] Comment on above: Performed By: #### U AMIC #### [facility] [address] [place] [address] Dr. Marvin Reis Nitrite Ql (U) Negative Normal NEGATIVE [facility] Comment on above: Performed By: #### U AMIC #### [facility] [address] [place] [address] Dr. Marvin Reis pH (U) 6.0 [pH] Normal 5-[address] [facility] Comment on above: Performed By: #### U AMIC #### [facility] [address] [place] [address] Dr. Marvin Reis RBC 0-2 Normal 0-[address] [facility] Comment on above: Performed By: #### U AMIC #### [facility] [address] [place] [address] Dr. Marvin Reis SPEC GRAVITY 1.010 Normal 1.005-<=1.[address] [facility] Comment on above: Performed By: #### U AMIC #### [facility] [address] [place] [address] Dr. Marvin Reis UA PROTEIN Negative Normal NEGATIVE/ TRACE [facility] Comment on above: Performed By: #### U AMIC #### [facility] [address] [place] [address] Dr. Marvin Reis Urobilinogen Qn (U) 0.2 {Robbie'U}/dL Normal 0.2 - 1. 0 [facility] Comment on above: Performed By: #### U AMIC #### [facility] [address] [place] [address] Dr. Marvin Reis WBC 2-5 Abnormal NONE SEEN The [facility] Comment on above: Performed By: #### U AMIC #### [facility] [address] [place] [address] Dr. Marvin Reis CULTURE URINEon 03-27-2022 CULTURE [...] >=320 R F Normal The [facility] Comment on above: Performed By: #### U RCX #### [facility] [address] [place] [address] Dr. Marvin Reis UA RANDOM W/MICROSCOPICon BACTERIA TRACE Abnormal NONE SEEN The [facility] Comment on above: Performed By: #### U RCX #### [facility] [address] [place] [address] Dr. Marvin Reis Bilirubin Ql (U) Negative Normal NEGATIVE The [facility] Comment on above: Performed By: #### U RCX #### [facility] [address] [place] [address] Dr. Marvin Reis CAST NONE SEEN Normal NONE SEEN The [facility] Comment on above: Performed By: #### U RCX #### [facility] [address] [place] [address] Dr. Marvin Reis Clarity (U) CLEAR Normal CLEAR The [facility] Comment on above: Performed By: #### U RCX #### [facility] [address] [address] [address] Marvin Reis Color (U) LT. YELLOW Normal YELLOW The [facility] Comment on above: Performed By: #### U RCX #### [facility] [address] [place] [address] Dr. Marvin Reis Crystals LM Nom (Urine sed) NONE SEEN Normal NONE SEEN The [facility] Comment on above: Performed By: #### U RCX #### [facility] [address] [address] [address] Marvin Reis Epithelial cells LM Ql (Urine sed) FEW Abnormal NONE SEEN /RARE The [facility] Comment on above: Performed By: #### U RCX #### [facility] [address] [place] [address] Dr. Marvin Reis Glucose Ql (U) Negative Normal NEGATIVE The [facility] Comment on above: Performed By: #### U RCX #### [facility] [address] [place] [address] Dr. Marvin Reis Hemoglobin Ql (U) SMALL Abnormal NEGATIVE The [facility] Comment on above: Performed By: #### U RCX #### [facility] [address] [place] [address] Dr. Marvin Reis Ketones Ql (U) Negative Normal NEGATIVE The [facility] Comment on above: Performed By: #### U RCX #### [facility] [address] [place] [address] Dr. Marvin Reis LEUKOCYTES MODERATE Abnormal NEGATIVE The [facility] Comment on above: Performed By: #### U RCX #### [facility] [address] [place] [address] Dr. Marvin Reis MUCOUS NONE SEEN Normal NONE SEEN [facility] Comment on above: Performed By: #### U RCX #### [facility] [address] [place] [address] Dr. Marvin Reis Nitrite Ql (U) Negative Normal NEGATIVE The [facility] Comment on above: Performed By: #### U RCX #### [facility] [address] [place] [address] Dr. Marvin Reis pH (U) 5.5 [pH] Normal 5-[address] [facility] Comment on above: Performed By: #### U RCX #### [facility] [address] [place] [address] Dr. Marvin Reis RBC NONE SEEN Abnormal 0-[address] [facility] Comment on above: Performed By: #### U RCX #### [facility] [address] [place] [address] Dr. Marvin Reis SPEC GRAVITY 1.015 Normal 1.005-<=1.[address] [facility] Comment on above: Performed By: #### U RCX #### [facility] [address] [place] [address] Dr. Marvin Reis UA PROTEIN Negative Normal NEGATIVE/ TRACE The [facility] Comment on above: Performed By: #### U RCX #### [facility] [address] [place] [address] Dr. Marvin Reis Urobilinogen Qn (U) 0.2 {Robbie'U}/dL Normal 0.2 - 1. 0 [facility] Comment on above: Performed By: #### U RCX #### [facility] [address] [place] [address] Dr. Marvin Reis WBC 20-50 Abnormal NONE SEEN [facility] Comment on above: Performed By: #### U RCX #### [facility] [address] [place] [address] Dr. Marvin Reis YEAST PRESENT Abnormal NONE SEEN [facility] Comment on above: Performed By: #### U RCX #### [facility] [address] [place] [address] Dr. Marvin Reis CULTURE URINEon 03-18-2022 CULTURE URINE Culture Observations : No growth Normal The [facility] Comment on above: Performed By: #### U RCX #### [facility] [address] [place] [address] Dr. Marvin Reis UA RANDOM W/MICROSCOPICon BACTERIA NONE SEEN Normal NONE SEEN [facility] Comment on above: Performed By: #### U AMIC #### [facility] [address] [address] [address] Marvin Reis Bilirubin Ql (U) Negative Normal NEGATIVE The [facility] Comment on above: Performed By: #### U AMIC #### [facility] [address] [address] [address] Marvin Reis CAST NONE SEEN Normal NONE SEEN [facility] Comment on above: Performed By: #### U AMIC #### [facility] [address] [place] [address] Dr. Marvin Reis Clarity (U) CLOUDY Abnormal CLEAR [facility] Comment on above: Performed By: #### U AMIC #### [facility] [address] [address] [address] Marvin Reis Color (U) LT. YELLOW Normal YELLOW [facility] Comment on above: Performed By: #### U AMIC #### [facility] [address] [place] [address] Dr. Marvin Reis Crystals LM Nom (Urine sed) NONE SEEN Normal NONE SEEN [facility] Comment on above: Performed By: #### U AMIC #### [facility] [address] [place] [address] Dr. Marvin Reis Epithelial cells LM Ql (Urine sed) RARE Normal NONE SEEN /RARE The [facility] Comment on above: Performed By: #### U AMIC #### [facility] [address] [place] [address] Dr. Marvin Reis Glucose Ql (U) Negative Normal NEGATIVE The [facility] Comment on above: Performed By: #### U AMIC #### [facility] [address] [place] [address] Dr. Marvin Reis Hemoglobin Ql (U) TRACE-INTACT Abnormal NEGATIVE [facility] Comment on above: Performed By: #### U AMIC #### [facility] [address] [place] [address] Dr. Marvin Reis Ketones Ql (U) Negative Normal NEGATIVE The [facility] Comment on above: Performed By: #### U AMIC #### [facility] [address] [place] [address] Dr. Marvin Reis LEUKOCYTES MODERATE Abnormal NEGATIVE The [facility] Comment on above: Performed By: #### U AMIC #### [facility] [address] [address] [address] Marvin Reis MUCOUS NONE SEEN Normal NONE SEEN The [facility] Comment on above: Performed By: #### U AMIC #### [facility] [address] [address] [address] Marvin Reis Nitrite Ql (U) Negative Normal NEGATIVE The [facility] Comment on above: Performed By: #### U AMIC #### [facility] [address] [address] [address] Marvin Reis pH (U) 6.0 [pH] Normal 5-[address] [facility] Comment on above: Performed By: #### U AMIC #### [facility] [address] [place] [address] Dr. Marvin Reis RBC NONE SEEN Abnormal 0-[address] [facility] Comment on above: Performed By: #### U AMIC #### [facility] [address] [place] [address] Dr. Marvin Reis SPEC GRAVITY 1.015 Normal 1.005-<=1.[address] [facility] Comment on above: Performed By: #### U AMIC #### [facility] [address] [address] [address] Marvin Reis UA PROTEIN Negative Normal NEGATIVE/ TRACE The [facility] Comment on above: Performed By: #### U AMIC #### [facility] [address] [address] [address] Marvin Reis Urobilinogen Qn (U) 0.2 {Robbie'U}/dL Normal 0.2 - 1. [address] [facility] Comment on above: Performed By: #### U AMIC #### [facility] [address] [place] [address] Dr. Marvin Reis WBC 10-20 Abnormal NONE SEEN The [facility] Comment on above: Performed By: #### U AMIC #### [facility] [address] [place] [address] Dr. Marvin Reis Coding Summary.on 06-21-2020 Coding Summary. CODING DATE: 06/21/2020 FINAL [facility] STATUS: PAYOR: Worker's Compensation ADMIT DX: [...] 12:01 pm [facility] PT - Assessmentson 0 PT - Assessments [id number]# 1.00CD:127 [facility] PT - Orderson 06-20-2020 PT - Orders [id number]# 1.00CD:127 [facility] PT - Workers Compon 06-20-20 20 PT - Workers Comp [id number]# 1.00CD:127 [facility] Encounters Encounter Date Encounter Type Care Provider Facility Start: 03-10-2023 End: 03-11-2023 ambulatory [facility] Start: 03-03-2023 End: 03-03-[address] LAWANDA [...] Facility:[facility] Payers Date Payer Category Payer Medicare [id number] 1961 Unknown [id number] 1960 Unknown [id number] 2.16.84 0.1.512529.3.579.2.593 1960 Unknown [id number] 2.16.84 0.1.696598.3.579.2.593 1958 Unknown [id number] 2.16.84 0.1.991471.3.579.2.593 1958 Unknown [id number] 2.16.84 0.1.087898.3.579.2.593 1958 Unknown [id number] 2.16.84 0.1.878632.3.579.2.593 1958 Unknown [id number] 2.16.84 0.1.993562.3.579.2.593 1958 Unknown [id number] 2.16.84 0.1.434291.3.579.2.593 1958 Unknown [id number] 2.16.84 0.1.757516.3.579.2.593 1958 Unknown [id number] 2.16.84 0.1.724561.3.579.2.593 1958 Unknown [id number] 2.16.84 0.1.669956.3.579.2.593 1958 Unknown [id number] 2.16.84 0.1.830593.3.579.2.593 1958 Unknown [id number] 2.16.84 0.1.475153.3.579.2.593 1958 Unknown [id number] 2.16.84 0.1.030316.3.579.2.593 1958 Unknown [id number] 2.16.84 0.1.572610.3.579.2.593 1958 Unknown [id number] 2.16.84 0.1.244277.3.579.2.593 1958 Unknown [id number] 2.16.84 0.1.140265.3.579.2.593 1958 Unknown [id number] 2.16.84 0.1.810426.3.579.2.593 1958 Unknown [id number] 2.16.84 0.1.984141.3.579.2.593 1958 Unknown [id number] 2.16.84 0.1.518656.3.579.2.593 Summary Purpose Family History No Family History [...] and content) DATE CREATED AUTHOR 09/19/2020 [facility] DATE CREATED AUTHOR AUTHOR'S ORGANIZ ATION 03/06/2023 [facility] DATE CREATED AUTHOR AUTHOR'S ORGANIZ ATION 03/11/2023 [facility] DATE CREATED AUTHOR AUTHOR'S ORGANIZ ATION 06/07/2023 [facility] FOR RECORDS PERTAINING TO PATIENTS WHO ARE [...] BE BASED ON THE PRIMARY CLINICAL RECORDS. [employer] [facility]. provides no warranty or guarantee of the accuracy or completeness of information in this document.
[2024-06-04 14:55] LABS: Bilirubin Urine NEGATIVE (NEGATIVE); Blood Urine SMALL (NEGATIVE); Clarity Urine CLOUDY (CLEAR); Color Urine LT. YELLOW (YELLOW); Glucose Urine UA NEGATIVE (NEGATIVE); Ketones Urine NEGATIVE (NEGATIVE); Leukocyte Esterase Urine LARGE (NEGATIVE); Nitrite Urine NEGATIVE (NEGATIVE); Protein Urine 100 mg/dL (NEG/TRACE); Specific Gravity Urine 1.015 (1.005-1.025); Urobilinogen Urine 0.2 EU/dL (0.2-1.0)
[2024-06-04 15:33] LABS: Bacteria Urine LARGE #/HPF (NONE SEEN); WBC Urine >100 #/HPF (NONE SEEN)
[2024-06-04 15:34] LABS: Mucus Urine TRACE (NONE SEEN); Squamous Epithelial Cell Urine FEW #/LPF (NONE/RARE)
[2024-06-04 15:36] LABS: Crystals Seen? None Seen #/HPF (None Seen)
[2024-06-04 15:37] LABS: Cast Seen? NONE SEEN #/LPF (NONE SEEN)
== END 2024-06-04 14:40 | disposition home or self-care (01) ==
LOC: LAB 14:39
PROVIDERS: PCP Family Medicine; Visit Provider Family Medicine
DX: N39.0 Urinary tract infection, site not specified (principal)
CPT/HCPCS: 81001; 87086; 87150; 87186

== ENCOUNTER 2024-06-22 08:42 | Outpatient (REF) | payer OTHER, SELFPAY ==
[2024-06-22 14:38] LABS: Bilirubin Urine NEGATIVE (NEGATIVE); Blood Urine SMALL (NEGATIVE); Clarity Urine CLEAR (CLEAR); Color Urine YELLOW (YELLOW); Glucose Urine UA NEGATIVE (NEGATIVE); Ketones Urine NEGATIVE (NEGATIVE); Leukocyte Esterase Urine LARGE (NEGATIVE); Nitrite Urine NEGATIVE (NEGATIVE); Protein Urine TRACE mg/dL (NEG/TRACE); Urobilinogen Urine 0.2 EU/dL (0.2-1.0)
[2024-06-22 14:44] LABS: WBC Urine 75-100 #/HPF (NONE SEEN)
[2024-06-22 14:45] LABS: Bacteria Urine LARGE #/HPF (NONE SEEN); Cast Seen? NONE SEEN #/LPF (NONE SEEN); Crystals Seen? None Seen #/HPF (None Seen); Mucus Urine TRACE (NONE SEEN); Squamous Epithelial Cell Urine RARE #/LPF (NONE/RARE); Urine Culture Indicated ALREADY ORDERED
--- OUTSIDE RECORDS SUMMARY | 2024-06-23 08:59 | XMS_ITS | CCD ---
Author Organization [facility] Care Team Providers Care Car Pincher Name Role Phone HOY ., DR WEBBER [...] Unavailable HOY ., DR WEBBER Admherman Unavailable TOMALES, DR MAGY [place] Consult[employer] Unavailable HOY ., [...] DR WEBBER Admitting Unavailable HOY ., DR WBEBER Consulting Unavailable HOY ., DR WEBBER Attending Unavailable HOY ., DR WEBBER Admitting Unavailable HOY ., DR WEBBER Primary Care Unavailable DAREN, FIRAS Referring Unavailable Allergies Allergy Classification Reported Allergen(s) Allergy Type Date of Onset Reaction(s) Facility (1 source) ceFAZolin Drug Allergy 04-21-20 13 [facility] Repository (1 source) Cilastatin / Imipenem Drug Allergy 04-21-20 13 [facility] Repository (1 source) Readi-Cat Drug allergy (disorder) 04-21-20 13 [facility] Repository (1 source) ceFAZolin; Translations: [CEFAZOLIN] Drug Allergy 12-01-19 13 [facility] Repository (1 source) Cephalexin; Translations: [CEPHALEXIN MONOHYDRATE] Drug Allergy 08-03-20 09 [facility] Repository (1 source) Promazine; Translations: [PROMAZINE] Drug Allergy 12-01-19 13 [facility] Repository (1 source) Sulfamethoxazole / Trimethoprim; Translations: [SULFAMETHOXAZOLE-TR IMETHOPRIM] Drug Allergy 03-10-20 23 [facility] Repository (1 source) IODINATED CONTRAST MEDIA; Translations: [IODINATED CONTRAST MEDIA] Propensity to adverse reactions to drug (disorder) 12-01-19 13 [facility] Repository Problems Active Problems Problem Classification [...] RESISTANT TO ALL B-LACTAM DRUGS. PERFORMED BY: [place] [address] PATHOLOGIST STAMPS OR COINS SALESPERSON MARLA VEGA M.D. [facility] Comment on above: Performed By: #### A MAI LAYNE #### [place] [id number] [place] Gram Stainon 06-03-2023 Microscopic observation Gram stain Nom (Unsp spec) Gram Stain Result No Bacteria Seen PERFORMED BY: [place] [address] PATHOLOGIST STAMPS OR COINS SALESPERSON MARLA VEGA M.D. [facility] Comment on above: Performed By: #### A MAI LAYNE #### [place] [id number] [place] CULTURE URINEon 03-06-2023 CULTURE URINE Isolate [...] F Levofloxacin 2 S F Normal [facility] Comment on above: Performed By: #### U RCX #### [facility] [address] [place] [address] Dr. Marvin Reis UA RANDOM W/MICROSCOPICon BACTERIA SMALL Abnormal NONE SEEN [facility] Comment on above: Performed By: #### U AMIC #### [facility] [address] [place] [address] Dr. Marvin Reis Bilirubin Ql (U) Negative Normal NEGATIVE The [facility] Comment on above: Performed By: #### U AMIC #### [facility] [address] [place] [address] Dr. Marvin Reis CAST NONE SEEN Normal NONE SEEN [facility] Comment on above: Performed By: #### U AMIC #### [facility] [address] [place] [address] Dr. Marvin Reis Clarity (U) CLEAR Normal CLEAR [facility] Comment on above: Performed By: #### U AMIC #### [facility] [address] [place] [address] Dr. Marvin Reis Color (U) LT. YELLOW Normal YELLOW [facility] Comment on above: Performed By: #### U AMIC #### [facility] [address] [address] [address] Marvin Reis Crystals LM Nom (Urine sed) NONE SEEN Normal NONE SEEN [facility] Comment on above: Performed By: #### U AMIC #### [facility] [address] [place] [address] Dr. Marvin Reis Epithelial cells LM Ql (Urine sed) RARE Normal NONE SEEN /RARE [facility] Comment on above: Performed By: #### U AMIC #### [facility] [address] [address] [address] Marvin Reis Glucose Ql (U) Negative Normal NEGATIVE [facility] Comment on above: Performed By: #### U AMIC #### [facility] [address] [place] [address] Dr. Marvin Reis Hemoglobin Ql (U) Negative Normal NEGATIVE [facility] Comment on above: Performed By: #### U AMIC #### [facility] [address] [place] [address] Dr. Marvin Reis Ketones Ql (U) Negative Normal NEGATIVE The [facility] Comment on above: Performed By: #### U AMIC #### [facility] [address] [place] [address] Dr. Marvin Reis LEUKOCYTES SMALL Abnormal NEGATIVE [facility] Comment on above: Performed By: #### U AMIC #### [facility] [address] [place] [address] Dr. Marvin Reis MUCOUS NONE SEEN Normal NONE SEEN [facility] Comment on above: Performed By: #### U AMIC #### [facility] [address] [place] [address] Dr. Marvin Reis Nitrite Ql (U) Negative Normal NEGATIVE [facility] Comment on above: Performed By: #### U AMIC #### [facility] [address] [place] [address] Dr. Marvin Reis pH (U) 6.0 [pH] Normal 5-9 [facility] Comment on above: Performed By: #### U AMIC #### [facility] [address] [place] [address] Dr. Marvin Reis RBC 0-2 Normal 0-2 [facility] Comment on above: Performed By: #### U AMIC #### [facility] [address] [place] [address] Dr. Marvin Reis SPEC GRAVITY 1.010 Normal 1.005-<=1.025 [facility] Comment on above: Performed By: #### U AMIC #### [facility] [address] [address] [address] Marvin Reis UA PROTEIN Negative Normal NEGATIVE/ TRACE The [facility] Comment on above: Performed By: #### U AMIC #### [facility] [address] [place] [address] Dr. Marvin Reis Urobilinogen Qn (U) 0.2 {Robbie'U}/dL Normal 0.2 - 1. 0 [facility] Comment on above: Performed By: #### U AMIC #### [facility] [address] [place] [address] Dr. Marvin Reis WBC 5-10 Abnormal NONE SEEN [facility] Comment on above: Performed By: #### U AMIC #### [facility] [address] [place] [address] Dr. Marvin Reis CULTURE URINEon 02-13-2023 CULTURE [...] F Levofloxacin 2 S F Normal [facility] Comment on above: Performed By: #### U RCX #### [facility] [address] [place] [address] Dr. Marvin Reis UA RANDOM W/MICROSCOPICon BACTERIA MODERATE Abnormal NONE SEEN [facility] Comment on above: Performed By: #### U AMIC #### [facility] [address] [place] [address] Dr. Marvin Reis Bilirubin Ql (U) Negative Normal NEGATIVE The [facility] Comment on above: Performed By: #### U AMIC #### [facility] [address] [place] [address] Dr. Marvin Reis CAST NONE SEEN Normal NONE SEEN [facility] Comment on above: Performed By: #### U AMIC #### [facility] [address] [place] [address] Dr. Marvin Reis Clarity (U) CLEAR Normal CLEAR [facility] Comment on above: Performed By: #### U AMIC #### [facility] [address] [place] [address] Dr. Marvin Reis Color (U) LT. YELLOW Normal YELLOW [facility] Comment on above: Performed By: #### U AMIC #### [facility] [address] [place] [address] Dr. Marvin Reis Crystals LM Nom (Urine sed) NONE SEEN Normal NONE SEEN [facility] Comment on above: Performed By: #### U AMIC #### [facility] [address] [place] [address] Dr. Marvin Reis Epithelial cells LM Ql (Urine sed) MODERATE Abnormal NONE SEEN /RARE [facility] Comment on above: Performed By: #### U AMIC #### [facility] [address] [place] [address] Dr. Marvin Reis Glucose Ql (U) Negative Normal NEGATIVE The [facility] Comment on above: Performed By: #### U AMIC #### [facility] [address] [place] [address] Dr. Marvin Reis Hemoglobin Ql (U) SMALL Abnormal NEGATIVE [facility] Comment on above: Performed By: #### U AMIC #### [facility] [address] [address] [address] Marvin Reis Ketones Ql (U) Negative Normal NEGATIVE [facility] Comment on above: Performed By: #### U AMIC #### [facility] [address] [address] [address] Marvin Reis LEUKOCYTES LARGE Abnormal NEGATIVE [facility] Comment on above: Performed By: #### U AMIC #### [facility] [address] [address] [address] Marvin Reis MUCOUS NONE SEEN Normal NONE SEEN [facility] Comment on above: Performed By: #### U AMIC #### [facility] [address] [place] [address] Dr. Marvin Reis Nitrite Ql (U) Positive Abnormal NEGATIVE The [facility] Comment on above: Performed By: #### U AMIC #### [facility] [address] [address] [address] Marvin Reis pH (U) 5.5 [pH] Normal 5-9 [facility] Comment on above: Performed By: #### U AMIC #### [facility] [address] [address] [address] Marvin Reis RBC 5-10 Abnormal 0-2 [facility] Comment on above: Performed By: #### U AMIC #### [facility] [address] [address] [address] Marvin Reis SPEC GRAVITY 1.015 Normal 1.005-<=1.025 [facility] Comment on above: Performed By: #### U AMIC #### [facility] [address] [address] [address] Marvin Reis UA PROTEIN Negative Normal NEGATIVE/ TRACE [facility] Comment on above: Performed By: #### U AMIC #### [facility] [address] [place] [address] Dr. Mravin Reis Urobilinogen Qn (U) 0.2 {Robbie'U}/dL Normal 0.2 - 1. 0 [facility] Comment on above: Performed By: #### U AMIC #### [facility] [address] [place] [address] Dr. Marvin Reis WBC 50-75 Abnormal NONE SEEN [facility] Comment on above: Performed By: #### U AMIC #### [facility] [id number] Marvin Reis CULTURE URINEon 01-23-2023 CULTURE [...] Trimethoprim/Sulfamet hoxazole <=10 S F Normal [facility] Comment on above: Performed By: #### U AMIC #### [facility] [address] [place] [address] Dr. Marvin Reis UA RANDOM W/MICROSCOPICon BACTERIA TRACE Abnormal NONE SEEN [facility] Comment on above: Performed By: #### U AMIC #### [facility] [address] [place] [address] Dr. Marvin Reis Bilirubin Ql (U) Negative Normal NEGATIVE [facility] Comment on above: Performed By: #### U AMIC #### [facility] [address] [address] [address] Marvin Reis CAST NONE SEEN Normal NONE SEEN [facility] Comment on above: Performed By: #### U AMIC #### [facility] [address] [address] [address] Marvin Reis Clarity (U) SL CLOUDY Abnormal CLEAR [facility] Comment on above: Performed By: #### U AMIC #### [facility] [address] [address] [address] Marvin Reis Color (U) LT. YELLOW Normal YELLOW [facility] Comment on above: Performed By: #### U AMIC #### [facility] [address] [place] [address] Dr. Marvin Reis Crystals LM Nom (Urine sed) NONE SEEN Normal NONE SEEN [facility] Comment on above: Performed By: #### U AMIC #### [facility] [address] [place] [address] Dr. Marvin Reis Epithelial cells LM Ql (Urine sed) NONE SEEN Normal NONE SEEN /RARE [facility] Comment on above: Performed By: #### U AMIC #### [facility] [address] [place] [address] Dr. Marvin Reis Glucose Ql (U) Negative Normal NEGATIVE The [facility] Comment on above: Performed By: #### U AMIC #### [facility] [address] [address] [address] Marvin Reis Hemoglobin Ql (U) Negative Normal NEGATIVE [facility] Comment on above: Performed By: #### U AMIC #### [facility] [address] [address] [address] Marvin Reis Ketones Ql (U) Negative Normal NEGATIVE The [facility] Comment on above: Performed By: #### U AMIC #### [facility] [address] [place] [address] Dr. Marvin Reis LEUKOCYTES TRACE Abnormal NEGATIVE [facility] Comment on above: Performed By: #### U AMIC #### [facility] [address] [address] [address] Marvin Reis MUCOUS NONE SEEN Normal NONE SEEN [facility] Comment on above: Performed By: #### U AMIC #### [facility] [address] [place] [address] Dr. Marvin Reis Nitrite Ql (U) Negative Normal NEGATIVE The [facility] Comment on above: Performed By: #### U AMIC #### [facility] [address] [place] [address] Dr. Marvin Reis pH (U) 6.0 [pH] Normal 5-9 [facility] Comment on above: Performed By: #### U AMIC #### [facility] [address] [place] [address] Dr. Marvin Reis RBC NONE SEEN Abnormal 0-2 [facility] Comment on above: Performed By: #### U AMIC #### [facility] [address] [place] [address] Dr. Marvin Reis SPEC GRAVITY 1.020 Normal 1.005-<=1.025 [facility] Comment on above: Performed By: #### U AMIC #### [facility] [address] [place] [address] Dr. Marvin Reis UA PROTEIN Negative Normal NEGATIVE/ TRACE [facility] Comment on above: Performed By: #### U AMIC #### [facility] [address] [place] [address] Dr. Marvin Reis Urobilinogen Qn (U) 0.2 {Robbie'U}/dL Normal 0.2 - 1. 0 [facility] Comment on above: Performed By: #### U AMIC #### [facility] [address] [place] [address] Dr. Marvin Reis WBC 10-20 Abnormal NONE SEEN [facility] Comment on above: Performed By: #### U AMIC #### [facility] [address] [place] [address] Dr. Marvin Reis CULTURE URINEon 01-07-2023 CULTURE URINE Isolate 1 Dawna albicans 10,000 cfu/mL of Normal [facility] Comment on above: Performed By: #### U RCX #### [facility] [address] [address] [address] Marvin Reis UA RANDOM W/MICROSCOPICon BACTERIA TRACE Abnormal NONE SEEN [facility] Comment on above: Performed By: #### U AMIC #### [facility] [address] [address] [address] Marvin Reis Bilirubin Ql (U) Negative Normal NEGATIVE [facility] Comment on above: Performed By: #### U AMIC #### [facility] [address] [address] [address] Marvin Reis CA OX CRYSTALS RARE Normal The [facility] Comment on above: Performed By: #### U AMIC #### [facility] [address] [address] [address] Marvin Reis CAST NONE SEEN Normal NONE SEEN [facility] Comment on above: Performed By: #### U AMIC #### [facility] [address] [address] [address] Marvin Reis Clarity (U) CLEAR Normal CLEAR [facility] Comment on above: Performed By: #### U AMIC #### [facility] [address] [address] [address] Marvin Reis Color (U) LT. YELLOW Normal YELLOW [facility] Comment on above: Performed By: #### U AMIC #### [facility] [address] [address] [address] Marvin Reis Crystals LM Nom (Urine sed) SEEN Abnormal NONE SEEN [facility] Comment on above: Performed By: #### U AMIC #### [facility] [address] [address] [address] Marvin Reis Epithelial cells LM Ql (Urine sed) FEW Abnormal NONE SEEN /RARE [facility] Comment on above: Performed By: #### U AMIC #### [facility] [address] [address] [address] Marvin Reis Glucose Ql (U) Negative Normal NEGATIVE [facility] Comment on above: Performed By: #### U AMIC #### [facility] [address] [address] [address] Marvin Reis Hemoglobin Ql (U) Negative Normal NEGATIVE [facility] Comment on above: Performed By: #### U AMIC #### [facility] [address] [address] [address] Marvin Reis Ketones Ql (U) Negative Normal NEGATIVE [facility] Comment on above: Performed By: #### U AMIC #### [facility] [address] [address] [address] Marvin Reis LEUKOCYTES SMALL Abnormal NEGATIVE [facility] Comment on above: Performed By: #### U AMIC #### [facility] [address] [place] [address] Dr. Marvin Reis MUCOUS NONE SEEN Normal NONE SEEN [facility] Comment on above: Performed By: #### U AMIC #### [facility] [address] [place] [address] Dr. Marvin Reis Nitrite Ql (U) Negative Normal NEGATIVE [facility] Comment on above: Performed By: #### U AMIC #### [facility] [address] [place] [address] Dr. Marvin Reis pH (U) 5.5 [pH] Normal 5-9 [facility] Comment on above: Performed By: #### U AMIC #### [facility] [address] [place] [address] Dr. Marvin Reis RBC 0-2 Normal 0-2 [facility] Comment on above: Performed By: #### U AMIC #### [facility] [address] [place] [address] Dr. Marvin Reis SPEC GRAVITY 1.015 Normal 1.005-<=1.025 [facility] Comment on above: Performed By: #### U AMIC #### [facility] [address] [place] [address] Dr. Marvin Reis UA PROTEIN Negative Normal NEGATIVE/ TRACE [facility] Comment on above: Performed By: #### U AMIC #### [facility] [address] [place] [address] Dr. Marvin Reis Urobilinogen Qn (U) 0.2 {Robbie'U}/dL Normal 0.2 - 1. 0 [facility] Comment on above: Performed By: #### U AMIC #### [facility] [address] [place] [address] Dr. Marvin Reis WBC 50-75 Abnormal NONE SEEN [facility] Comment on above: Performed By: #### U AMIC #### [facility] [address] [place] [address] Dr. Marvin Reis YEAST PRESENT Abnormal NONE SEEN [facility] Comment on above: Performed By: #### U AMIC #### [facility] [address] [place] [address] Dr. Marvin Reis CULTURE URINEon 12-25-2022 CULTURE [...] Trimethoprim/Sulfamet hoxazole >=320 R F Normal [facility] Comment on above: Performed By: #### U RCX #### [facility] [address] [place] [address] Dr. Marvin Reis UA RANDOM W/MICROSCOPICon BACTERIA NONE SEEN Normal NONE SEEN [facility] Comment on above: Performed By: #### U AMIC #### [facility] [address] [place] [address] Dr. Marvin Reis Bilirubin Ql (U) Negative Normal NEGATIVE [facility] Comment on above: Performed By: #### U AMIC #### [facility] [address] [place] [address] Dr. Marvin eRis CAST NONE SEEN Normal NONE SEEN [facility] Comment on above: Performed By: #### U AMIC #### [facility] [address] [place] [address] Dr. Marvin Reis Clarity (U) CLEAR Normal CLEAR [facility] Comment on above: Performed By: #### U AMIC #### [facility] [address] [address] [address] Marvin Reis Color (U) LT. YELLOW Normal YELLOW [facility] Comment on above: Performed By: #### U AMIC #### [facility] [address] [place] [address] Dr. Marvin Reis Crystals LM Nom (Urine sed) NONE SEEN Normal NONE SEEN [facility] Comment on above: Performed By: #### U AMIC #### [facility] [address] [place] [address] Dr. Marvin Reis Epithelial cells LM Ql (Urine sed) RARE Normal NONE SEEN /RARE [facility] Comment on above: Performed By: #### U AMIC #### [facility] [address] [place] [address] Dr. Marvin Reis Glucose Ql (U) Negative Normal NEGATIVE [facility] Comment on above: Performed By: #### U AMIC #### [facility] [address] [place] [address] Dr. Marvin Reis Hemoglobin Ql (U) Negative Normal NEGATIVE [facility] Comment on above: Performed By: #### U AMIC #### [facility] [address] [address] [address] Marvin Reis Ketones Ql (U) Negative Normal NEGATIVE [facility] Comment on above: Performed By: #### U AMIC #### [facility] [address] [place] [address] Dr. Marvin Reis LEUKOCYTES MODERATE Abnormal NEGATIVE [facility] Comment on above: Performed By: #### U AMIC #### [facility] [address] [place] [address] Dr. Marvin Reis MUCOUS NONE SEEN Normal NONE SEEN [facility] Comment on above: Performed By: #### U AMIC #### [facility] [address] [place] [address] Dr. Marvin Reis Nitrite Ql (U) Negative Normal NEGATIVE [facility] Comment on above: Performed By: #### U AMIC #### [facility] [address] [place] [address] Dr. Marvin Reis pH (U) 5.5 [pH] Normal 5-9 [facility] Comment on above: Performed By: #### U AMIC #### [facility] [address] [place] [address] Dr. Marvin Reis RBC NONE SEEN Abnormal 0-2 [facility] Comment on above: Performed By: #### U AMIC #### [facility] [address] [place] [address] Dr. Marvin Reis SPEC GRAVITY 1.015 Normal 1.005-<=1.025 [facility] Comment on above: Performed By: #### U AMIC #### [facility] [address] [place] [address] Dr. Marvin Reis UA PROTEIN Negative Normal NEGATIVE/ TRACE [facility] Comment on above: Performed By: #### U AMIC #### [facility] [address] [place] [address] Dr. Marvin Reis Urobilinogen Qn (U) 0.2 {Robbie'U}/dL Normal 0.2 - 1. 0 [facility] Comment on above: Performed By: #### U AMIC #### [facility] [address] [place] [address] Dr. Marvin Reis WBC 10-20 Abnormal NONE SEEN [facility] Comment on above: Performed By: #### U AMIC #### [facility] [address] [place] [address] Dr. Marvin Reis CULTURE URINEon 12-05-2022 CULTURE [...] Trimethoprim/Sulfamet hoxazole <=20 S F Normal The [facility] Comment on above: Performed By: #### U RCX #### [facility] [address] [place] [address] Dr. Marvin Reis CREATININEon 12-03-2022 Creatinine [Mass/Vol] 0.88 mg/dL Normal 0.70-1.30 [facility] Comment on above: Performed By: #### U RCX #### [facility] [address] [place] [address] Dr. Marvin Reis EGFR-AF GHANAIAN >60 Normal >=60 [facility] Comment on above: Performed By: #### U RCX #### [facility] [address] [place] [address] Dr. Marvin Reis EGFR-NON AF GHANAIAN >60 Normal >=60 [facility] Comment on above: Performed By: #### U RCX #### [facility] [address] [place] [address] ABDOMEN WO/W CONon [...] ELENO PARKER Date: 2022-12-03 14:51 Normal The [facility] UA RANDOM W/MICROSCOPICon BACTERIA TRACE Abnormal NONE SEEN The [facility] Comment on above: Performed By: #### U RCX #### [facility] [address] [place] [address] Dr. Marvin Reis Bilirubin Ql (U) Negative Normal NEGATIVE [facility] Comment on above: Performed By: #### U RCX #### [facility] [address] [place] [address] Dr. Marvin Reis CAST NONE SEEN Normal NONE SEEN [facility] Comment on above: Performed By: #### U RCX #### [facility] [address] [place] [address] Dr. Marvin Reis Clarity (U) CLEAR Normal CLEAR [facility] Comment on above: Performed By: #### U RCX #### [facility] [address] [place] [address] Dr. Marvin Reis Color (U) LT. YELLOW Normal YELLOW [facility] Comment on above: Performed By: #### U RCX #### [facility] [address] [place] [address] Dr. Marvin Reis Crystals LM Nom (Urine sed) NONE SEEN Normal NONE SEEN [facility] Comment on above: Performed By: #### U RCX #### [facility] [address] [place] [address] Dr. Marvin Reis Epithelial cells LM Ql (Urine sed) RARE Normal NONE SEEN /RARE The [facility] Comment on above: Performed By: #### U RCX #### [facility] [address] [address] [address] Marvin Reis Glucose Ql (U) Negative Normal NEGATIVE [facility] Comment on above: Performed By: #### U RCX #### [facility] [address] [address] [address] Marvin Reis Hemoglobin Ql (U) TRACE-INTACT Abnormal NEGATIVE [facility] Comment on above: Performed By: #### U RCX #### [facility] [address] [address] [address] Marvin Reis Ketones Ql (U) Negative Normal NEGATIVE [facility] Comment on above: Performed By: #### U RCX #### [facility] [address] [place] [address] Dr. Marvin Reis LEUKOCYTES TRACE Abnormal NEGATIVE [facility] Comment on above: Performed By: #### U RCX #### [facility] [address] [address] [address] Marvin Reis MUCOUS TRACE Abnormal NONE SEEN [facility] Comment on above: Performed By: #### U RCX #### [facility] [address] [place] [address] Dr. Marvin Reis Nitrite Ql (U) Negative Normal NEGATIVE [facility] Comment on above: Performed By: #### U RCX #### [facility] [address] [address] [address] Marvin Reis pH (U) 5.0 [pH] Normal 5-9 [facility] Comment on above: Performed By: #### U RCX #### [facility] [address] [address] [address] Marvin Reis RBC 0-2 Normal 0-2 [facility] Comment on above: Performed By: #### U RCX #### [facility] [address] [place] [address] Dr. Marvin Reis SPEC GRAVITY 1.010 Normal 1.005-<=1.025 [facility] Comment on above: Performed By: #### U RCX #### [facility] [address] [place], [place] [address] Dr. Marvin Reis UA PROTEIN TRACE Normal NEGATIVE/ TRACE [facility] Comment on above: Performed By: #### U RCX #### [facility] [address] [place], [place] [address] Dr. Marvin Reis Urobilinogen Qn (U) 0.2 {Robbie'U}/dL Normal 0.2 - 1. 0 [facility] Comment on above: Performed By: #### U RCX #### [facility] [address] [address] [address] Marvin Reis WBC 2-5 Abnormal NONE SEEN [facility] Comment on above: Performed By: #### U RCX #### [facility] [address] ABD/PELVIS WO CONon [...] MAGY COMER Date: 2022-11-20 14:51 Normal [facility] CULTURE URINEon 11-11-2022 CULTURE URINE Culture Observations : GUSTABO TO FOLLOW. Isolate 1 Enterobacter aerogenes >100,000 cfu/mL of Normal [facility] Comment on above: Performed By: #### U RCX #### [facility] [address] [place] [address] Dr. Marvin Reis UA RANDOM W/MICROSCOPICon BACTERIA SMALL Abnormal NONE SEEN [facility] Comment on above: Performed By: #### U AMIC #### [facility] [address] [place] [address] Dr. Marvin Reis Bilirubin Ql (U) Negative Normal NEGATIVE [facility] Comment on above: Performed By: #### U AMIC #### [facility] [address] [place] [address] Dr. Marvin Reis CAST NONE SEEN Normal NONE SEEN [facility] Comment on above: Performed By: #### U AMIC #### [facility] [address] [place] [address] Dr. Marvin Reis Clarity (U) CLOUDY Abnormal CLEAR [facility] Comment on above: Performed By: #### U AMIC #### [facility] [address] [place] [address] Dr. Marvin Reis Color (U) LT. YELLOW Normal YELLOW [facility] Comment on above: Performed By: #### U AMIC #### [facility] [address] [address] [address] Marvin Reis Crystals LM Nom (Urine sed) NONE SEEN Normal NONE SEEN [facility] Comment on above: Performed By: #### U AMIC #### [facility] [address] [address] [address] Marvin Reis Epithelial cells LM Ql (Urine sed) NONE SEEN Normal NONE SEEN /RARE [facility] Comment on above: Performed By: #### U AMIC #### [facility] [address] [address] [address] Marvin Reis Glucose Ql (U) Negative Normal NEGATIVE [facility] Comment on above: Performed By: #### U AMIC #### [facility] [address] [place] [address] Dr. Marvin Reis Hemoglobin Ql (U) TRACE-INTACT Abnormal NEGATIVE [facility] Comment on above: Performed By: #### U AMIC #### [facility] [address] [address] [address] Marvin Reis Ketones Ql (U) Negative Normal NEGATIVE [facility] Comment on above: Performed By: #### U AMIC #### [facility] [address] [address] [address] Marvin Reis LEUKOCYTES LARGE Abnormal NEGATIVE [facility] Comment on above: Performed By: #### U AMIC #### [facility] [address] [address] [address] Marvin Reis MUCOUS NONE SEEN Normal NONE SEEN [facility] Comment on above: Performed By: #### U AMIC #### [facility] [address] [place] [address] Dr. Marvin Reis Nitrite Ql (U) Positive Abnormal NEGATIVE [facility] Comment on above: Performed By: #### U AMIC #### [facility] [address] [place] [address] Dr. Marvin Reis pH (U) 5.5 [pH] Normal 5-9 [facility] Comment on above: Performed By: #### U AMIC #### [facility] [address] [place] [address] Dr. Marvin Reis RBC 0-2 Normal 0-2 [facility] Comment on above: Performed By: #### U AMIC #### [facility] [address] [place] [address] Dr. Marvin Reis SPEC GRAVITY 1.015 Normal 1.005-<=1.025 [facility] Comment on above: Performed By: #### U AMIC #### [facility] [address] [place] [address] Dr. Marvin Reis UA PROTEIN Negative Normal NEGATIVE/ TRACE [facility] Comment on above: Performed By: #### U AMIC #### [facility] [address] [place] [address] Dr. Marvin Reis Urobilinogen Qn (U) 0.2 {Robbie'U}/dL Normal 0.2 - 1. 0 [facility] Comment on above: Performed By: #### U AMIC #### [facility] [address] [place] [address] Dr. Marvin Reis WBC 10-20 Abnormal NONE SEEN [facility] Comment on above: Performed By: #### U AMIC #### [facility] [address] [place] [address] Dr. Marvin Reis CULTURE URINEon 10-24-2022 CULTURE [...] Trimethoprim/Sulfamet hoxazole <=20 S F Normal [facility] Comment on above: Performed By: #### U RCX #### [facility] [address] [place] [address] Dr. Marvin Reis UA RANDOM W/MICROSCOPICon BACTERIA LARGE Abnormal NONE SEEN [facility] Comment on above: Performed By: #### U AMIC #### [facility] [address] [address] [address] Marvin Reis Bilirubin Ql (U) Negative Normal NEGATIVE [facility] Comment on above: Performed By: #### U AMIC #### [facility] [address] [address] [address] Marvin Reis CAST NONE SEEN Normal NONE SEEN [facility] Comment on above: Performed By: #### U AMIC #### [facility] [address] [address] [address] Marvin Reis Clarity (U) SL CLOUDY Abnormal CLEAR [facility] Comment on above: Performed By: #### U AMIC #### [facility] [address] [address] [address] Marvin Reis Color (U) YELLOW Normal YELLOW [facility] Comment on above: Performed By: #### U AMIC #### [facility] [address] [address] [address] Marvin Reis Crystals LM Nom (Urine sed) NONE SEEN Normal NONE SEEN [facility] Comment on above: Performed By: #### U AMIC #### [facility] [address] [address] [address] Marvin Reis Epithelial cells LM Ql (Urine sed) FEW Abnormal NONE SEEN /RARE [facility] Comment on above: Performed By: #### U AMIC #### [facility] [address] [address] [address] Marvin Reis Glucose Ql (U) Negative Normal NEGATIVE [facility] Comment on above: Performed By: #### U AMIC #### [facility] [address] [address] [address] Marvin Reis Hemoglobin Ql (U) TRACE-INTACT Abnormal NEGATIVE [facility] Comment on above: Performed By: #### U AMIC #### [facility] [address] [address] [address] Marvin Reis Ketones Ql (U) Negative Normal NEGATIVE [facility] Comment on above: Performed By: #### U AMIC #### [facility] [address] [address] [address] Marvin Reis LEUKOCYTES LARGE Abnormal NEGATIVE [facility] Comment on above: Performed By: #### U AMIC #### [facility] [address] [address] [address] Marvin Reis MUCOUS NONE SEEN Normal NONE SEEN [facility] Comment on above: Performed By: #### U AMIC #### [facility] [address] [address] [address] Marvin Reis Nitrite Ql (U) Negative Normal NEGATIVE [facility] Comment on above: Performed By: #### U AMIC #### [facility] [address] [address] [address] Marvin Reis pH (U) 5.0 [pH] Normal 5-9 [facility] Comment on above: Performed By: #### U AMIC #### [facility] [address] [address] [address] Marvin Reis RBC 5-10 Abnormal 0-2 [facility] Comment on above: Performed By: #### U AMIC #### [facility] [address] [address] [address] Marvin Reis SPEC GRAVITY 1.010 Normal 1.005-<=1.025 [facility] Comment on above: Performed By: #### U AMIC #### [facility] [address] [place] [address] Dr. Marvin Reis UA PROTEIN Negative Normal NEGATIVE/ TRACE [facility] Comment on above: Performed By: #### U AMIC #### [facility] [address] [place] [address] Dr. Marvin Reis Urobilinogen Qn (U) 0.2 {Robbie'U}/dL Normal 0.2 - 1. 0 [facility] Comment on above: Performed By: #### U AMIC #### [facility] [address] [address] [address] Marvin Reis WBC 50-75 Abnormal NONE SEEN [facility] Comment on above: Performed By: #### U AMIC #### [facility] [address] [address] [address] Marvin Reis CULTURE URINEon 10-01-2022 CULTURE URINE Culture Observations : NO GROWTH. Normal [facility] Comment on above: Performed By: #### U AMIC #### [facility] [address] [address] [address] Marvin Reis UA RANDOM W/MICROSCOPICon BACTERIA SMALL Abnormal NONE SEEN [facility] Comment on above: Performed By: #### U AMIC #### [facility] [address] [address] [address] Marvin Reis Bilirubin Ql (U) Negative Normal NEGATIVE [facility] Comment on above: Performed By: #### U AMIC #### [facility] [address] [address] [address] Marvin Reis CAST SEEN Abnormal NONE SEEN [facility] Comment on above: Performed By: #### U AMIC #### [facility] [address] [address] [address] Marvin Reis Clarity (U) CLEAR Normal CLEAR [facility] Comment on above: Performed By: #### U AMIC #### [facility] [address] [address] [address] Marvin Reis Color (U) LT. YELLOW Normal YELLOW [facility] Comment on above: Performed By: #### U AMIC #### [facility] [address] [address] [address] Marvin Reis Crystals LM Nom (Urine sed) NONE SEEN Normal NONE SEEN [facility] Comment on above: Performed By: #### U AMIC #### [facility] [address] [address] [address] Marvin Reis Epithelial cells LM Ql (Urine sed) FEW Abnormal NONE SEEN /RARE [facility] Comment on above: Performed By: #### U AMIC #### [facility] [address] [place] [address] Dr. Marvin Reis Glucose Ql (U) Negative Normal NEGATIVE [facility] Comment on above: Performed By: #### U AMIC #### [facility] [address] [place] [address] Dr. Marvin Reis Hemoglobin Ql (U) TRACE-INTACT Abnormal NEGATIVE [facility] Comment on above: Performed By: #### U AMIC #### [facility] [address] [address] [address] Marvin Reis HYALINE CAST FEW Normal [facility] Comment on above: Performed By: #### U AMIC #### [facility] [address] [place] [address] Dr. Marvin Reis Ketones Ql (U) Negative Normal NEGATIVE [facility] Comment on above: Performed By: #### U AMIC #### [facility] [address] [place] [address] Dr. Marvin Reis LEUKOCYTES MODERATE Abnormal NEGATIVE [facility] Comment on above: Performed By: #### U AMIC #### [facility] [address] [place] [address] Dr. Marvin Reis MUCOUS SMALL Abnormal NONE SEEN [facility] Comment on above: Performed By: #### U AMIC #### [facility] [address] [place] [address] Dr. Marvin Reis Nitrite Ql (U) Negative Normal NEGATIVE [facility] Comment on above: Performed By: #### U AMIC #### [facility] [address] [place] [address] Dr. Marvin Reis pH (U) 5.5 [pH] Normal 5-9 [facility] Comment on above: Performed By: #### U AMIC #### [facility] [address] [place] [address] Dr. Marvin Reis RBC 0-2 Normal 0-2 [facility] Comment on above: Performed By: #### U AMIC #### [facility] [address] [place] [address] Dr. Marvin Reis SPEC GRAVITY 1.020 Normal 1.005-<=1.025 [facility] Comment on above: Performed By: #### U AMIC #### [facility] [address] [place] [address] Dr. Marvin Reis UA PROTEIN Negative Normal NEGATIVE/ TRACE [facility] Comment on above: Performed By: #### U AMIC #### [facility] [address] [address] [address] Marvin Reis Urobilinogen Qn (U) 0.2 {Robbie'U}/dL Normal 0.2 - 1. 0 [facility] Comment on above: Performed By: #### U AMIC #### [facility] [address] [address] [address] Marvin Reis WBC 10-20 Abnormal NONE SEEN [facility] Comment on above: Performed By: #### U AMIC #### [facility] [address] [address] [address] Marvin Reis CULTURE URINEon 09-26-2022 CULTURE [...] Trimethoprim/Sulfamet hoxazole <=20 S F Normal [facility] Comment on above: Performed By: #### U RCX #### [facility] [address] [place] [address] Dr. Marvin Reis CBC W MANUAL DIFFon 09-25-20 ANISOCYTOSIS SLIGHT Normal [facility] Comment on above: Performed By: #### U RCX #### [facility] [address] [place] [address] Dr. Marvin Reis ATYPICAL LYMPH # Normal [facility] Comment on above: Performed By: #### U RCX #### [facility] [address] [place] [address] Dr. Marvin Reis ATYPICAL LYMPH % Normal [facility] Comment on above: Performed By: #### U RCX #### [facility] [address] [place] [address] Dr. Marvin Reis BAND # Normal 0.0-0.3 [facility] Comment on above: Performed By: #### U RCX #### [facility] [address] [place] [address] Dr. Marvin Reis BAND % Normal 0-5 [facility] Comment on above: Performed By: #### U RCX #### [facility] [address] [place] [address] Dr. Marvin Reis BASOM # 0.00 103/ul Normal 0.00-0.10 [facility] Comment on above: Performed By: #### U RCX #### [facility] [address] [place] [address] Dr. Marvin Reis BASOM % 0.0 % Critically low 0.2-2.0 [facility] Comment on above: Performed By: #### U RCX #### [facility] [address] [place] [address] Dr. Marvin Reis BLAST # Normal [facility] Comment on above: Performed By: #### U RCX #### [facility] [address] [place] [address] Dr. Marvin Reis BLAST % Normal [facility] Comment on above: Performed By: #### U RCX #### [facility] [address] [place] [address] Dr. Marvin Reis CORRECTED WBC Normal 4.0-11.0 [facility] Comment on above: Performed By: #### U RCX #### [facility] [address] [place] [address] Dr. Marvin Reis EOS # 0.00 103/ul Normal 0.00-0.70 [facility] Comment on above: Performed By: #### U RCX #### [facility] [address] [place] [address] Dr. Marvin Reis EOS% 0.0 % Critically low 0.9-7.0 [facility] Comment on above: Performed By: #### U RCX #### [facility] [address] [place] [address] Dr. Marvin Reis HCT 32.1 % Critically low 42.0-54.0 [facility] Comment on above: Performed By: #### U RCX #### [facility] [address] [address] [address] Marvin Reis HGB 10.2 g/dl Critically low 14.0-18.0 [facility] Comment on above: Performed By: #### U RCX #### [facility] [address] [address] [address] Marvin Reis LYMPHM # 0.76 103/ul Critically low 1.20-3.80 [facility] Comment on above: Performed By: #### U RCX #### [facility] [address] [place] [address] Dr. Marvin Reis LYMPHM% 14.0 % Critically low 20.5-60.0 [facility] Comment on above: Performed By: #### U RCX #### [facility] [address] [place] [address] Dr. Marvin Reis MCH 26.5 pg Normal 25.9-34.0 [facility] Comment on above: Performed By: #### U RCX #### [facility] [address] [place] [address] Dr. Marvin Reis MCHC 31.8 g/dl Normal 29.9-35.2 [facility] Comment on above: Performed By: #### U RCX #### [facility] [address] [place] [address] Dr. Marvin Reis MCV 83.4 fL Normal 80.0-94.0 [facility] Comment on above: Performed By: #### U RCX #### [facility] [address] [address] [address] Marvin Reis METAMYELOCYTE # Normal [facility] Comment on above: Performed By: #### U RCX #### [facility] [address] [place] [address] Dr. Marvin Reis METAMYELOCYTE % Normal [facility] Comment on above: Performed By: #### U RCX #### [facility] [address] [address] [address] Marvin Reis MONOM# 0.27 103/ul Critically low 0.30-0.80 [facility] Comment on above: Performed By: #### U RCX #### [facility] [address] [address] [address] Marvin Reis MONOM% 5.0 % Normal 1.7-12.0 [facility] Comment on above: Performed By: #### U RCX #### [facility] [address] [address] [address] Marvin Reis MPV 9.8 fL Normal 9.5-13.5 [facility] Comment on above: Performed By: #### U RCX #### [facility] [address] [place] [address] Dr. Marvin Reis MYELOCYTE # Normal [facility] Comment on above: Performed By: #### U RCX #### [facility] [address] [address] [address] Marvin Reis MYELOCYTE % Normal [facility] Comment on above: Performed By: #### U RCX #### [facility] [address] [place] [address] Dr. Marvin Reis NRBC Normal [facility] Comment on above: Performed By: #### U RCX #### [facility] [address] [place] [address] Dr. Marvin Reis PLT 78 103/ul Critically low 150-450 [facility] Comment on above: Performed By: #### U RCX #### [facility] [address] [address] [address] Marvin Reis RBC 3.85 106/ul Critically low 4.70-6.10 [facility] Comment on above: Performed By: #### U RCX #### [facility] [address] [place] [address] Dr. Marvin Reis RDW 15.8 % Critically high 11.0-15.0 [facility] Comment on above: Performed By: #### U RCX #### [facility] [address] [address] [address] Marvin Reis SEG # 4.37 103/ul Normal 1.40-6.50 [facility] Comment on above: Performed By: #### U RCX #### [facility] [address] [address] [address] Marvin Reis SEG % 81.0 % Critically high 43.0-75.0 [facility] Comment on above: Performed By: #### U RCX #### [facility] [address] [place] [address] Dr. Marvin Reis WBC 5.4 103/ul Normal 4.0-11.0 [facility] Comment on above: Performed By: #### U RCX #### [facility] [address] [place] [address] Dr. Marvin Reis CRPon 09-25-2022 CRP 8.9 mg/dL Critically high <=1.0 [facility] Comment on above: Performed By: #### U AMIC #### [facility] [address] [place] [address] Dr. Marvin Reis LACTATE/LACTIC ACIDon 2021 Lactate [Moles/Vol] 0.9 mmol/L Normal 0.4-1.9 [facility] Comment on above: Performed By: #### U RCX #### [facility] [address] [place] [address] Dr. Marvin Reis PROF 14(COMP METB)on 022 Albumin [Mass/Vol] 2.6 g/dL Critically low 3.4-5.0 [facility] Comment on above: Performed By: #### U AMIC #### [facility] [address] [address] [address] Marvin Reis Albumin/Globulin [Mass ratio] 0.7 {ratio} Normal [facility] Comment on above: Performed By: #### U AMIC #### [facility] [address] [address] [address] Marvin Reis ALP [Catalytic activity/Vol] 75 U/L Normal 46-116 [facility] Comment on above: Performed By: #### U AMIC #### [facility] [address] [address] [address] Marvin Reis ALT [Catalytic activity/Vol] 23 U/L Normal 16-63 [facility] Comment on above: Performed By: #### U AMIC #### [facility] [address] [address] [address] Marvin Reis Anion gap [Moles/Vol] 11.8 mmol/L Normal [facility] Comment on above: Performed By: #### U AMIC #### [facility] [address] [address] [address] Marvin Reis AST [Catalytic activity/Vol] 21 U/L Normal 15-37 [facility] Comment on above: Performed By: #### U AMIC #### [facility] [address] [address] [address] Marvin Reis Bilirubin [Mass/Vol] 0.8 mg/dL Normal 0.2-1.0 [facility] Comment on above: Performed By: #### U AMIC #### [facility] [address] [address] [address] Marivn Reis Calcium [Mass/Vol] 8.7 mg/dL Normal 8.5-10.1 [facility] Comment on above: Performed By: #### U AMIC #### [facility] [address] [address] [address] Marvin Reis Chloride [Moles/Vol] 105 mmol/L Normal 98-107 [facility] Comment on above: Performed By: #### U AMIC #### [facility] [address] [address] [address] Marvin Reis CO2 [Moles/Vol] 26.1 mmol/L Normal 21.0-32.0 [facility] Comment on above: Performed By: #### U AMIC #### [facility] [address] [address] [address] Marvin Reis Creatinine [Mass/Vol] 0.88 mg/dL Normal 0.70-1.30 [facility] Comment on above: Performed By: #### U AMIC #### [facility] [address] [address] [address] Marvin Reis EGFR-AF GHANAIAN >60 Normal >=60 [facility] Comment on above: Performed By: #### U AMIC #### [facility] [address] [address] [address] Marvin Reis EGFR-NON AF GHANAIAN >60 Normal >=60 [facility] Comment on above: Performed By: #### U AMIC #### [facility] [address] [address] [address] Marvin Reis Globulin (S) [Mass/Vol] 3.7 g/dL Normal [facility] Comment on above: Performed By: #### U AMIC #### [facility] [address] [address] [address] Marvin Reis Glucose [Mass/Vol] 93 mg/dL Normal 74-106 [facility] Comment on above: Performed By: #### U AMIC #### [facility] [address] [address] [address] Marvin Reis Potassium [Moles/Vol] 3.9 mmol/L Normal 3.5-5.1 [facility] Comment on above: Performed By: #### U AMIC #### [facility] [address] [address] [address] Marvin Reis Protein [Mass/Vol] 6.3 g/dL Critically low 6.4-8.2 [facility] Comment on above: Performed By: #### U AMIC #### [facility] [address] [address] [address] Marvin Reis Sodium [Moles/Vol] 139 mmol/L Normal 136-145 [facility] Comment on above: Performed By: #### U AMIC #### [facility] [address] [address] [address] Marvin Reis Urea nitrogen [Mass/Vol] 20.0 mg/dL Critically high 7.0-18.0 [facility] Comment on above: Performed By: #### U AMIC #### [facility] [address] [place] [address] Dr. Marvin Reis Urea nitrogen/Creatinine [Mass ratio] 22.7 mg/mg Normal [facility] Comment on above: Performed By: #### U AMIC #### [facility] [address] [place] [address] Dr. Marvin Reis SED RATE WESTERGRENon 2021 SED RATE 49 mm/hr Critically high <=20 [facility] Comment on above: Performed By: #### U AMIC #### [facility] [address] [place] [address] Dr. Marvin Reis CBC W MANUAL DIFFon 09-24-20 ATYPICAL LYMPH # Normal [facility] Comment on above: Performed By: #### U RCX #### [facility] [address] [place] [address] Dr. Marvin Reis ATYPICAL LYMPH % Normal [facility] Comment on above: Performed By: #### U RCX #### [facility] [address] [place] [address] Dr. Marvin Reis BAND # Normal 0.0-0.3 [facility] Comment on above: Performed By: #### U RCX #### [facility] [address] [place] [address] Dr. Marvin Reis BAND % Normal 0-5 [facility] Comment on above: Performed By: #### U RCX #### [facility] [address] [place] [address] Dr. Marvin Reis BASOM # 0.00 103/ul Normal 0.00-0.10 [facility] Comment on above: Performed By: #### U RCX #### [facility] [address] [address] [address] Marvin Reis BASOM % 0.0 % Critically low 0.2-2.0 [facility] Comment on above: Performed By: #### U RCX #### [facility] [address] [place] [address] Dr. Marvin Reis BLAST # Normal [facility] Comment on above: Performed By: #### U RCX #### [facility] [address] [address] [address] Marvin Reis BLAST % Normal [facility] Comment on above: Performed By: #### U RCX #### [facility] [address] [place] [address] Dr. Marvin Reis CORRECTED WBC Normal 4.0-11.0 [facility] Comment on above: Performed By: #### U RCX #### [facility] [address] [address] [address] Marvin Reis EOS # 0.00 103/ul Normal 0.00-0.70 [facility] Comment on above: Performed By: #### U RCX #### [facility] [address] [place] [address] Dr. Marvin Reis EOS% 0.0 % Critically low 0.9-7.0 [facility] Comment on above: Performed By: #### U RCX #### [facility] [address] [place] [address] Dr. Marvin Reis HCT 33.5 % Critically low 42.0-54.0 [facility] Comment on above: Performed By: #### U RCX #### [facility] [address] [place] [address] Dr. Marvin Reis HGB 10.9 g/dl Critically low 14.0-18.0 [facility] Comment on above: Performed By: #### U RCX #### [facility] [address] [place] [address] Dr. Marvin Reis LYMPHM # 0.52 103/ul Critically low 1.20-3.80 [facility] Comment on above: Performed By: #### U RCX #### [facility] [address] [place] [address] Dr. Marvin Reis LYMPHM% 4.0 % Critically low 20.5-60.0 [facility] Comment on above: Performed By: #### U RCX #### [facility] [address] [place] [address] Dr. Marvin Reis MCH 27.2 pg Normal 25.9-34.0 [facility] Comment on above: Performed By: #### U RCX #### [facility] [address] [place] [address] Dr. Marvin Reis MCHC 32.5 g/dl Normal 29.9-35.2 [facility] Comment on above: Performed By: #### U RCX #### [facility] [address] [address] [address] Marvin Reis MCV 83.5 fL Normal 80.0-94.0 [facility] Comment on above: Performed By: #### U RCX #### [facility] [address] [place] [address] Dr. Marvin Reis METAMYELOCYTE # Normal [facility] Comment on above: Performed By: #### U RCX #### [facility] [address] [place] [address] Dr. Marvin Reis METAMYELOCYTE % Normal [facility] Comment on above: Performed By: #### U RCX #### [facility] [address] [place] [address] Dr. Marvin Reis MONOM# 0.39 103/ul Normal 0.30-0.80 [facility] Comment on above: Performed By: #### U RCX #### [facility] [address] [place] [address] Dr. Marvin Reis MONOM% 3.0 % Normal 1.7-12.0 [facility] Comment on above: Performed By: #### U RCX #### [facility] [address] [place] [address] Dr. Marvin Reis MPV 10.5 fL Normal 9.5-13.5 [facility] Comment on above: Performed By: #### U RCX #### [facility] [address] [place] [address] Dr. Marvin Reis MYELOCYTE # Normal [facility] Comment on above: Performed By: #### U RCX #### [facility] [address] [place] [address] Dr. Marvin Reis MYELOCYTE % Normal [facility] Comment on above: Performed By: #### U RCX #### [facility] [address] [address] [address] Marvin Reis NRBC Normal [facility] Comment on above: Performed By: #### U RCX #### [facility] [address] [address] [address] Marvin Reis PLT 96 103/ul Critically low 150-450 [facility] Comment on above: Performed By: #### U RCX #### [facility] [address] [address] [address] Marvin Reis RBC 4.01 106/ul Critically low 4.70-6.10 [facility] Comment on above: Performed By: #### U RCX #### [facility] [address] [address] [address] Marvin Reis RDW 15.8 % Critically high 11.0-15.0 [facility] Comment on above: Performed By: #### U RCX #### [facility] [address] [address] [address] Marvin Reis SEG # 12.00 103/ul Critically high 1.40-6.50 [facility] Comment on above: Performed By: #### U RCX #### [facility] [address] [address] [address] Marvin Reis SEG % 93.0 % Critically high 43.0-75.0 [facility] Comment on above: Performed By: #### U RCX #### [facility] [address] [address] [address] Marvin Reis WBC 12.9 103/ul Critically high 4.0-11.[address] [facility] Comment on above: Performed By: #### U RCX #### [facility] [address] [address] [address] Marvin Reis CRPon 09-24-2022 CRP 8.4 mg/dL Critically high <=1.0 [facility] Comment on above: Performed By: #### U AMIC #### [facility] [address] [address] [address] Marvin Reis LACTATE/LACTIC ACIDon 2021 Lactate [Moles/Vol] 2.2 mmol/L Critically high 0.4-1.9 [facility] Comment on above: Performed By: #### L ACT #### [facility] [address] [address] [address] Marvin Reis PROF 14(COMP METB)on 022 Albumin [Mass/Vol] 2.8 g/dL Critically low 3.4-5.0 [facility] Comment on above: Performed By: #### U AMIC #### [facility] [address] [place] [address] Dr. Marvin Reis Albumin/Globulin [Mass ratio] 0.7 {ratio} Normal [facility] Comment on above: Performed By: #### U AMIC #### [facility] [address] [place] [address] Dr. Marvin Reis ALP [Catalytic activity/Vol] 80 U/L Normal 46-116 [facility] Comment on above: Performed By: #### U AMIC #### [facility] [address] [place] [address] Dr. Marvin Reis ALT [Catalytic activity/Vol] 20 U/L Normal 16-63 [facility] Comment on above: Performed By: #### U AMIC #### [facility] [address] [place] [address] Dr. Marvin Reis Anion gap [Moles/Vol] 12.3 mmol/L Normal [facility] Comment on above: Performed By: #### U AMIC #### [facility] [address] [place] [address] Dr. Marvin Reis AST [Catalytic activity/Vol] 17 U/L Normal 15-37 [facility] Comment on above: Performed By: #### U AMIC #### [facility] [address] [place] [address] Dr. Marvin Reis Bilirubin [Mass/Vol] 1.0 mg/dL Normal 0.2-1.0 [facility] Comment on above: Performed By: #### U AMIC #### [facility] [address] [address] [address] Marvin Reis Calcium [Mass/Vol] 9.0 mg/dL Normal 8.5-10.1 [facility] Comment on above: Performed By: #### U AMIC #### [facility] [address] [address] [address] Marvin Reis Chloride [Moles/Vol] 106 mmol/L Normal 98-107 [facility] Comment on above: Performed By: #### U AMIC #### [facility] [address] [address] [address] Marvin Reis CO2 [Moles/Vol] 25.8 mmol/L Normal 21.0-32.0 [facility] Comment on above: Performed By: #### U AMIC #### [facility] [address] [place] [address] Dr. Marvin Reis Creatinine [Mass/Vol] 1.08 mg/dL Normal 0.70-1.30 [facility] Comment on above: Performed By: #### U AMIC #### [facility] [address] [address] [address] Marvin Reis EGFR-AF GHANAIAN >60 Normal >=60 [facility] Comment on above: Performed By: #### U AMIC #### [facility] [address] [address] [address] Marvin Reis EGFR-NON AF GHANAIAN >60 Normal >=60 [facility] Comment on above: Performed By: #### U AMIC #### [facility] [address] [address] [address] Marvin Reis Globulin (S) [Mass/Vol] 3.8 g/dL Normal [facility] Comment on above: Performed By: #### U AMIC #### [facility] [address] [address] [address] Marvin Reis Glucose [Mass/Vol] 117 mg/dL Critically high 74-106 [facility] Comment on above: Performed By: #### U AMIC #### [facility] [address] [address] [address] Marvin Reis Potassium [Moles/Vol] 4.1 mmol/L Normal 3.5-5.1 [facility] Comment on above: Performed By: #### U AMIC #### [facility] [address] [address] [address] Marvin Reis Protein [Mass/Vol] 6.6 g/dL Normal 6.4-8.2 [facility] Comment on above: Performed By: #### U AMIC #### [facility] [address] [address] [address] Marvin Reis Sodium [Moles/Vol] 140 mmol/L Normal 136-145 [facility] Comment on above: Performed By: #### U AMIC #### [facility] [address] [place] [address] Dr. Marvin Reis Urea nitrogen [Mass/Vol] 23.0 mg/dL Critically high 7.0-18.0 [facility] Comment on above: Performed By: #### U AMIC #### [facility] [address] [place] [address] Dr. Marvin Reis Urea nitrogen/Creatinine [Mass ratio] 21.3 mg/mg Normal [facility] Comment on above: Performed By: #### U AMIC #### [facility] [address] [place] [address] Dr. Marvin Reis SED RATE [facility] 2021 SED RATE 51 mm/hr Critically high <=20 [facility] Comment on above: Performed By: #### U RCX #### [facility] [facility] [address] [place] [address] Dr. Marvin Reis UA RANDOMon 09-24-2022 Bilirubin Ql (U) Negative Normal NEGATIVE [facility] Comment on above: Performed By: #### U AMIC #### [facility] [address] [place] [address] Dr. Marvin Reis Clarity (U) CLEAR Normal CLEAR [facility] Comment on above: Performed By: #### U AMIC #### [facility] [address] [place] [address] Dr. Marvin Reis Color (U) LT. YELLOW Normal YELLOW [facility] Comment on above: Performed By: #### U AMIC #### [facility] [address] [address] [address] Marvin Reis Glucose Ql (U) Negative Normal NEGATIVE [facility] Comment on above: Performed By: #### U AMIC #### [facility] [address] [address] [address] Marvin Reis Hemoglobin Ql (U) LARGE Abnormal NEGATIVE [facility] Comment on above: Performed By: #### U AMIC #### [facility] [address] [address] [address] Marvin Reis Ketones Ql (U) Negative Normal NEGATIVE [facility] Comment on above: Performed By: #### U AMIC #### [facility] [address] [place] [address] Dr. Marvin Reis LEUKOCYTES MODERATE Abnormal NEGATIVE [facility] Comment on above: Performed By: #### U AMIC #### [facility] [address] [place] [address] Dr. Marvin Reis Nitrite Ql (U) Negative Normal NEGATIVE [facility] Comment on above: Performed By: #### U AMIC #### [facility] [address] [address] [address] Marvin Reis pH (U) 5.5 [pH] Normal 5-9 [facility] Comment on above: Performed By: #### U AMIC #### [facility] [address] [address] [address] Marvin Reis SPEC GRAVITY 1.020 Normal 1.005-<=1.025 [facility] Comment on above: Performed By: #### U AMIC #### [facility] [address] [place] [address] Dr. Marvin Reis UA PROTEIN Negative Normal NEGATIVE/ TRACE [facility] Comment on above: Performed By: #### U AMIC #### [facility] [address] [place] [address] Dr. Marvin Reis Urobilinogen Qn (U) 0.2 {Robbie'U}/dL Normal 0.2 - 1. 0 [facility] Comment on above: Performed By: #### U AMIC #### [facility] [address] [place] [address] Dr. Marvin Reis CULTURE URINEon 09-13-2022 CULTURE [...] F Oxacillin >=4 R F Normal [facility] Comment on above: Performed By: #### U RCX #### [facility] [address] [place] [address] Dr. Marvin Reis UA RANDOM W/MICROSCOPICon BACTERIA TRACE Abnormal NONE SEEN The [facility] Comment on above: Performed By: #### U AMIC #### [facility] [address] [place] [address] Dr. Marvin Reis Bilirubin Ql (U) Negative Normal NEGATIVE [facility] Comment on above: Performed By: #### U AMIC #### [facility] [address] [place] [address] Dr. Marvin Reis CAST NONE SEEN Normal NONE SEEN [facility] Comment on above: Performed By: #### U AMIC #### [facility] [address] [place] [address] Dr. Marvin Reis Clarity (U) CLEAR Normal CLEAR [facility] Comment on above: Performed By: #### U AMIC #### [facility] [address] [place] [address] Dr. Marvin Reis Color (U) LT. YELLOW Normal YELLOW [facility] Comment on above: Performed By: #### U AMIC #### [facility] [address] [address] [address] Marvin Reis Crystals LM Nom (Urine sed) NONE SEEN Normal NONE SEEN [facility] Comment on above: Performed By: #### U AMIC #### [facility] [address] [address] [address] Marvin Reis Epithelial cells LM Ql (Urine sed) FEW Abnormal NONE SEEN /RARE [facility] Comment on above: Performed By: #### U AMIC #### [facility] [address] [address] [address] Marvin Reis Glucose Ql (U) Negative Normal NEGATIVE [facility] Comment on above: Performed By: #### U AMIC #### [facility] [address] [address] [address] Marvin Reis Hemoglobin Ql (U) Negative Normal NEGATIVE [facility] Comment on above: Performed By: #### U AMIC #### [facility] [address] [address] [address] Marvin Reis Ketones Ql (U) Negative Normal NEGATIVE [facility] Comment on above: Performed By: #### U AMIC #### [facility] [address] [address] [address] Marvin Reis LEUKOCYTES LARGE Abnormal NEGATIVE [facility] Comment on above: Performed By: #### U AMIC #### [facility] [address] [address] [address] Marvin Reis MUCOUS NONE SEEN Normal NONE SEEN [facility] Comment on above: Performed By: #### U AMIC #### [facility] [address] [address] [address] Marvin Reis Nitrite Ql (U) Negative Normal NEGATIVE [facility] Comment on above: Performed By: #### U AMIC #### [facility] [address] [address] [address] Marvin Reis pH (U) 5.5 [pH] Normal 5-9 [facility] Comment on above: Performed By: #### U AMIC #### [facility] [address] [address] [address] Marvin Reis RBC 0-2 Normal 0-2 [facility] Comment on above: Performed By: #### U AMIC #### [facility] [address] [place] [address] Dr. Marvin Reis SPEC GRAVITY 1.025 Normal 1.005-<=1.025 [facility] Comment on above: Performed By: #### U AMIC #### [facility] [address] [place] [address] Dr. Marvin Reis UA PROTEIN Negative Normal NEGATIVE/ TRACE [facility] Comment on above: Performed By: #### U AMIC #### [facility] [address] [place] [address] Dr. Marvin Reis Urobilinogen Qn (U) 0.2 {Robbie'U}/dL Normal 0.2 - 1. 0 [facility] Comment on above: Performed By: #### U AMIC #### [facility] [address] [place] [address] Dr. Marvin Reis WBC 10-20 Abnormal NONE SEEN [facility] Comment on above: Performed By: #### U AMIC #### [facility] [address] [place] [address] Dr. Marvin Reis CULTURE URINEon 08-17-2022 CULTURE [...] Trimethoprim/Sulfamet hoxazole <=20 S F Normal [facility] Comment on above: Performed By: #### U RCX #### [facility] [address] [place] [address] Dr. Marvin Reis UA RANDOM W/MICROSCOPICon 10 -13-2022 BACTERIA MODERATE Abnormal NONE SEEN [facility] Comment on above: Performed By: #### U RCX #### [facility] [address] [address] [address] Marvin Reis Bilirubin Ql (U) Negative Normal NEGATIVE [facility] Comment on above: Performed By: #### U RCX #### [facility] [address] [place] [address] Dr. Marvin Reis CAST NONE SEEN Normal NONE SEEN [facility] Comment on above: Performed By: #### U RCX #### [facility] [address] [address] [address] Marvin Reis Clarity (U) SL CLOUDY Abnormal CLEAR [facility] Comment on above: Performed By: #### U RCX #### [facility] [address] [place] [address] Dr. Marvin Reis Color (U) LT. YELLOW Normal YELLOW [facility] Comment on above: Performed By: #### U RCX #### [facility] [address] [address] [address] Marvin Reis Crystals LM Nom (Urine sed) NONE SEEN Normal NONE SEEN [facility] Comment on above: Performed By: #### U RCX #### [facility] [address] [place] [address] Dr. Marvin Reis Epithelial cells LM Ql (Urine sed) RARE Normal NONE SEEN /RARE [facility] Comment on above: Performed By: #### U RCX #### [facility] [address] [place] [address] Dr. Marvin Reis Glucose Ql (U) Negative Normal NEGATIVE [facility] Comment on above: Performed By: #### U RCX #### [facility] [address] [address] [address] Marvin Reis Hemoglobin Ql (U) SMALL Abnormal NEGATIVE [facility] Comment on above: Performed By: #### U RCX #### [facility] [address] [place] [address] Dr. Marvin Reis Ketones Ql (U) Negative Normal NEGATIVE [facility] Comment on above: Performed By: #### U RCX #### [facility] [address] [address] [address] Marvin Reis LEUKOCYTES MODERATE Abnormal NEGATIVE [facility] Comment on above: Performed By: #### U RCX #### [facility] [address] [place] [address] Dr. Marvin Reis MUCOUS NONE SEEN Normal NONE SEEN [facility] Comment on above: Performed By: #### U RCX #### [facility] [address] [address] [address] Marvin Reis Nitrite Ql (U) Positive Abnormal NEGATIVE [facility] Comment on above: Performed By: #### U RCX #### [facility] [address] [place] [address] Dr. Marvin Reis pH (U) 6.0 [pH] Normal 5-9 [facility] Comment on above: Performed By: #### U RCX #### [facility] [address] [place] [address] Dr. Marvin Reis RBC 0-2 Normal 0-2 [facility] Comment on above: Performed By: #### U RCX #### [facility] [address] [address] [address] Marvin Reis SPEC GRAVITY 1.015 Normal 1.005-<=1.025 [facility] Comment on above: Performed By: #### U RCX #### [facility] [address] [place] [address] Dr. Marvin Reis UA PROTEIN Negative Normal NEGATIVE/ TRACE [facility] Comment on above: Performed By: #### U RCX #### [facility] [address] [place] [address] Dr. Marvin Reis Urobilinogen Qn (U) 0.2 {Robbie'U}/dL Normal 0.2 - 1. 0 [facility] Comment on above: Performed By: #### U RCX #### [facility] [address] [place] [address] Dr. Marvin Reis WBC 10-20 Abnormal NONE SEEN [facility] Comment on above: Performed By: #### U RCX #### [facility] [address] [place] [address] Dr. Marvin Reis CULTURE URINEon 08-02-2022 CULTURE [...] Trimethoprim/Sulfamet hoxazole <=20 S F Normal [facility] Comment on above: Performed By: #### U RCX #### [facility] [address] [place] [address] Dr. Marvin Reis UA RANDOM W/MICROSCOPICon BACTERIA MODERATE Abnormal NONE SEEN [facility] Comment on above: Performed By: #### U AMIC #### [facility] [address] [place] [address] Dr. Marvin Reis Bilirubin Ql (U) Negative Normal NEGATIVE [facility] Comment on above: Performed By: #### U AMIC #### [facility] [address] [place] [address] Dr. Marvin Reis CAST NONE SEEN Normal NONE SEEN [facility] Comment on above: Performed By: #### U AMIC #### [facility] [address] [place] [address] Dr. Marvin Reis Clarity (U) SL CLOUDY Abnormal CLEAR [facility] Comment on above: Performed By: #### U AMIC #### [facility] [address] [place] [address] Dr. Marvin Reis Color (U) LT. YELLOW Normal YELLOW [facility] Comment on above: Performed By: #### U AMIC #### [facility] [address] [place] [address] Dr. Marvin Reis Crystals LM Nom (Urine sed) NONE SEEN Normal NONE SEEN [facility] Comment on above: Performed By: #### U AMIC #### [facility] [address] [address] [address] Marvin Reis Epithelial cells LM Ql (Urine sed) NONE SEEN Normal NONE SEEN /RARE [facility] Comment on above: Performed By: #### U AMIC #### [facility] [address] [address] [address] Marvin Reis Glucose Ql (U) Negative Normal NEGATIVE [facility] Comment on above: Performed By: #### U AMIC #### [facility] [address] [address] [address] Marvin Reis Hemoglobin Ql (U) TRACE-INTACT Abnormal NEGATIVE [facility] Comment on above: Performed By: #### U AMIC #### [facility] [address] [place] [address] Dr. Marvin Reis Ketones Ql (U) Negative Normal NEGATIVE [facility] Comment on above: Performed By: #### U AMIC #### [facility] [address] [address] [address] Marvin Reis LEUKOCYTES MODERATE Abnormal NEGATIVE [facility] Comment on above: Performed By: #### U AMIC #### [facility] [address] [address] [address] Marvin Reis MUCOUS NONE SEEN Normal NONE SEEN [facility] Comment on above: Performed By: #### U AMIC #### [facility] [address] [address] [address] Marvin Reis Nitrite Ql (U) Positive Abnormal NEGATIVE [facility] Comment on above: Performed By: #### U AMIC #### [facility] [address] [address] [address] Marvin Reis pH (U) 6.0 [pH] Normal 5-9 [facility] Comment on above: Performed By: #### U AMIC #### [facility] [address] [address] [address] Marvin Reis RBC 0-2 Normal 0-2 [facility] Comment on above: Performed By: #### U AMIC #### [facility] [address] [place] [address] Dr. Marvin Reis SPEC GRAVITY 1.015 Normal 1.005-<=1.025 [facility] Comment on above: Performed By: #### U AMIC #### [facility] [address] [place] [address] Dr. Marvin Reis UA PROTEIN Negative Normal NEGATIVE/ TRACE [facility] Comment on above: Performed By: #### U AMIC #### [facility] [address] [place] [address] Dr. Marvin Reis Urobilinogen Qn (U) 0.2 {Robbie'U}/dL Normal 0.2 - 1. 0 [facility] Comment on above: Performed By: #### U AMIC #### [facility] [address] [place] [address] Dr. Marvin Reis WBC 20-50 Abnormal NONE SEEN [facility] Comment on above: Performed By: #### U AMIC #### [facility] [address] [place] [address] Dr. Marvin Reis CULTURE URINEon 06-27-2022 CULTURE [...] F Oxacillin >=4 R F Normal [facility] Comment on above: Performed By: #### U AMIC #### [facility] [address] [place] [address] Dr. Marvin Reis UA RANDOM W/MICROSCOPICon BACTERIA LARGE Abnormal NONE SEEN [facility] Comment on above: Performed By: #### U RCX #### [facility] [address] [address] [address] Marvin Reis Bilirubin Ql (U) Negative Normal NEGATIVE [facility] Comment on above: Performed By: #### U RCX #### [facility] [address] [address] [address] Marvin Reis CAST NONE SEEN Normal NONE SEEN [facility] Comment on above: Performed By: #### U RCX #### [facility] [address] [address] [address] Marvin Reis Clarity (U) CLEAR Normal CLEAR [facility] Comment on above: Performed By: #### U RCX #### [facility] [address] [place] [address] Dr. Marvin Reis Color (U) LT. YELLOW Normal YELLOW [facility] Comment on above: Performed By: #### U RCX #### [facility] [address] [place] [address] Dr. Marvin Reis Crystals LM Nom (Urine sed) NONE SEEN Normal NONE SEEN [facility] Comment on above: Performed By: #### U RCX #### [facility] [address] [address] [address] Marvin Reis Epithelial cells LM Ql (Urine sed) FEW Abnormal NONE SEEN /RARE [facility] Comment on above: Performed By: #### U RCX #### [facility] [address] [place] [address] Dr. Marvin Reis Glucose Ql (U) Negative Normal NEGATIVE [facility] Comment on above: Performed By: #### U RCX #### [facility] [address] [address] [address] Marvin Reis Hemoglobin Ql (U) TRACE-INTACT Abnormal NEGATIVE [facility] Comment on above: Performed By: #### U RCX #### [facility] [address] [place] [address] Dr. Marvin Reis Ketones Ql (U) Negative Normal NEGATIVE [facility] Comment on above: Performed By: #### U RCX #### [facility] [address] [address] [address] Marvin Reis LEUKOCYTES LARGE Abnormal NEGATIVE [facility] Comment on above: Performed By: #### U RCX #### [facility] [address] [place] [address] Dr. Marvin Reis MUCOUS NONE SEEN Normal NONE SEEN [facility] Comment on above: Performed By: #### U RCX #### [facility] [address] [place] [address] Dr. Marvin Reis Nitrite Ql (U) Positive Abnormal NEGATIVE [facility] Comment on above: Performed By: #### U RCX #### [facility] [address] [place] [address] Dr. Marvin Reis pH (U) 5.5 [pH] Normal 5-9 [facility] Comment on above: Performed By: #### U RCX #### [facility] [address] [place] [address] Dr. Marvin Reis RBC 2-5 Abnormal 0-2 [facility] Comment on above: Performed By: #### U RCX #### [facility] [address] [place] [address] Dr. Marvin Reis SPEC GRAVITY 1.015 Normal 1.005-<=1.025 [facility] Comment on above: Performed By: #### U RCX #### [facility] [address] [place] [address] Dr. Marvin Reis UA PROTEIN Negative Normal NEGATIVE/ TRACE [facility] Comment on above: Performed By: #### U RCX #### [facility] [address] [place] [address] Dr. Marvin Reis Urobilinogen Qn (U) 0.2 {Robbie'U}/dL Normal 0.2 - 1. 0 [facility] Comment on above: Performed By: #### U RCX #### [facility] [address] [place] [address] Dr. Marvin Reis WBC (U) [#/Vol] /uL Abnormal NONE SEEN [facility] Comment on above: Performed By: #### U RCX #### [facility] [address] [place] [address] Dr. Marvin Reis CULTURE URINEon 05-27-2022 CULTURE [...] F Oxacillin >=4 R F Normal [facility] Comment on above: Performed By: #### U RCX #### [facility] [address] [place] [address] Dr. Marvin Reis UA RANDOM W/MICROSCOPICon BACTERIA MODERATE Abnormal NONE SEEN [facility] Comment on above: Performed By: #### U RCX #### [facility] [address] [place] [address] Dr. Marvin Reis Bilirubin Ql (U) Negative Normal NEGATIVE [facility] Comment on above: Performed By: #### U RCX #### [facility] [address] [place] [address] Dr. Marvin Reis CAST NONE SEEN Normal NONE SEEN [facility] Comment on above: Performed By: #### U RCX #### [facility] [address] [place] [address] Dr. Marvin Reis Clarity (U) SL CLOUDY Abnormal CLEAR [facility] Comment on above: Performed By: #### U RCX #### [facility] [address] [place] [address] Dr. Marvin Reis Color (U) LT. YELLOW Normal YELLOW [facility] Comment on above: Performed By: #### U RCX #### [facility] [address] [place] [address] Dr. Marvin Reis Crystals LM Nom (Urine sed) NONE SEEN Normal NONE SEEN [facility] Comment on above: Performed By: #### U RCX #### [facility] [address] [address] [address] Marvin Reis Epithelial cells LM Ql (Urine sed) FEW Abnormal NONE SEEN /RARE [facility] Comment on above: Performed By: #### U RCX #### [facility] [address] [address] [address] Marvin Reis Glucose Ql (U) Negative Normal NEGATIVE [facility] Comment on above: Performed By: #### U RCX #### [facility] [address] [address] [address] Marvin Reis Hemoglobin Ql (U) SMALL Abnormal NEGATIVE [facility] Comment on above: Performed By: #### U RCX #### [facility] [address] [place] [address] Dr. Marvin Reis Ketones Ql (U) Negative Normal NEGATIVE [facility] Comment on above: Performed By: #### U RCX #### [facility] [address] [address] [address] Marvin Reis LEUKOCYTES LARGE Abnormal NEGATIVE [facility] Comment on above: Performed By: #### U RCX #### [facility] [address] [address] [address] Marvin Reis MUCOUS TRACE Abnormal NONE SEEN [facility] Comment on above: Performed By: #### U RCX #### [facility] [address] [address] [address] Marvin Reis Nitrite Ql (U) Negative Normal NEGATIVE [facility] Comment on above: Performed By: #### U RCX #### [facility] [address] [address] [address] Marvin Reis pH (U) 6.0 [pH] Normal 5-9 [facility] Comment on above: Performed By: #### U RCX #### [facility] [address] [address] [address] Marvin Reis RBC 2-5 Abnormal 0-2 [facility] Comment on above: Performed By: #### U RCX #### [facility] [address] [address] [address] Marvin Reis SPEC GRAVITY 1.010 Normal 1.005-<=1.025 [facility] Comment on above: Performed By: #### U RCX #### [facility] [address] [address] [address] Marvin Reis UA PROTEIN Negative Normal NEGATIVE/ TRACE [facility] Comment on above: Performed By: #### U RCX #### [facility] [address] [address] [address] Marvin Reis Urobilinogen Qn (U) 0.2 {Robbie'U}/dL Normal 0.2 - 1. 0 [facility] Comment on above: Performed By: #### U RCX #### [facility] [address] [place] [address] Dr. Marvin Reis WBC 50-75 Abnormal NONE SEEN [facility] Comment on above: Performed By: #### U RCX #### [facility] [address] [place] [address] Dr. Marvin Reis CULTURE URINEon 04-18-2022 CULTURE [...] F Oxacillin >=4 R F Normal [facility] Comment on above: Performed By: #### U RCX #### [facility] [address] [address] [address] Marvin Reis UA RANDOM W/MICROSCOPICon BACTERIA TRACE Abnormal NONE SEEN [facility] Comment on above: Performed By: #### U AMIC #### [facility] [address] [address] [address] Marvin Reis Bilirubin Ql (U) Negative Normal NEGATIVE [facility] Comment on above: Performed By: #### U AMIC #### [facility] [address] [address] [address] Marvin Reis CAST NONE SEEN Normal NONE SEEN [facility] Comment on above: Performed By: #### U AMIC #### [facility] [address] [address] [address] Marvin Reis Clarity (U) CLEAR Normal CLEAR [facility] Comment on above: Performed By: #### U AMIC #### [facility] [address] [address] [address] Marvin Reis Color (U) LT. YELLOW Normal YELLOW [facility] Comment on above: Performed By: #### U AMIC #### [facility] [address] [address] [address] Marvin Reis Crystals LM Nom (Urine sed) NONE SEEN Normal NONE SEEN [facility] Comment on above: Performed By: #### U AMIC #### [facility] [address] [address] [address] Marvin Reis Epithelial cells LM Ql (Urine sed) FEW Abnormal NONE SEEN /RARE [facility] Comment on above: Performed By: #### U AMIC #### [facility] [address] [address] [address] Marvin Reis Glucose Ql (U) Negative Normal NEGATIVE [facility] Comment on above: Performed By: #### U AMIC #### [facility] [address] [address] [address] Marvin Reis Hemoglobin Ql (U) TRACE-INTACT Abnormal NEGATIVE [facility] Comment on above: Performed By: #### U AMIC #### [facility] [address] [address] [address] Marvin Reis Ketones Ql (U) Negative Normal NEGATIVE [facility] Comment on above: Performed By: #### U AMIC #### [facility] [address] [place] [address] Dr. Marvin Reis LEUKOCYTES SMALL Abnormal NEGATIVE [facility] Comment on above: Performed By: #### U AMIC #### [facility] [address] [place] [address] Dr. Marvin Reis MUCOUS NONE SEEN Normal NONE SEEN [facility] Comment on above: Performed By: #### U AMIC #### [facility] [address] [place] [address] Dr. Marvin Reis Nitrite Ql (U) Negative Normal NEGATIVE [facility] Comment on above: Performed By: #### U AMIC #### [facility] [address] [place] [address] Dr. Marvin Reis pH (U) 6.0 [pH] Normal 5-9 [facility] Comment on above: Performed By: #### U AMIC #### [facility] [address] [place] [address] Dr. Marvin Reis RBC 0-2 Normal 0-2 [facility] Comment on above: Performed By: #### U AMIC #### [facility] [address] [place] [address] Dr. Marvin Reis SPEC GRAVITY 1.010 Normal 1.005-<=1.025 [facility] Comment on above: Performed By: #### U AMIC #### [facility] [address] [place] [address] Dr. Marvin Reis UA PROTEIN Negative Normal NEGATIVE/ TRACE [facility] Comment on above: Performed By: #### U AMIC #### [facility] [address] [place] [address] Dr. Marvin Reis Urobilinogen Qn (U) 0.2 {Robbie'U}/dL Normal 0.2 - 1. 0 [facility] Comment on above: Performed By: #### U AMIC #### [facility] [address] [place] [address] Dr. Marvin Reis WBC 2-5 Abnormal NONE SEEN [facility] Comment on above: Performed By: #### U AMIC #### [facility] [address] [place] [address] Dr. Marvin Reis CULTURE URINEon 03-27-2022 CULTURE [...] Trimethoprim/Sulfamet hoxazole >=320 R F Normal [facility] Comment on above: Performed By: #### U RCX #### [facility] [address] [place] [address] Dr. Marvin Reis UA RANDOM W/MICROSCOPICon BACTERIA TRACE Abnormal NONE SEEN [facility] Comment on above: Performed By: #### U RCX #### [facility] [address] [place] [address] Dr. Marvin Reis Bilirubin Ql (U) Negative Normal NEGATIVE [facility] Comment on above: Performed By: #### U RCX #### [facility] [address] [place] [address] Dr. Marvin Reis CAST NONE SEEN Normal NONE SEEN [facility] Comment on above: Performed By: #### U RCX #### [facility] [address] [place] [address] Dr. Marvin Reis Clarity (U) CLEAR Normal CLEAR [facility] Comment on above: Performed By: #### U RCX #### [facility] [address] [address] [address] Marvin Reis Color (U) LT. YELLOW Normal YELLOW [facility] Comment on above: Performed By: #### U RCX #### [facility] [address] [place] [address] Dr. Marvin Reis Crystals LM Nom (Urine sed) NONE SEEN Normal NONE SEEN [facility] Comment on above: Performed By: #### U RCX #### [facility] [address] [address] [address] Marvin Reis Epithelial cells LM Ql (Urine sed) FEW Abnormal NONE SEEN /RARE [facility] Comment on above: Performed By: #### U RCX #### [facility] [address] [place] [address] Dr. Marvin Reis Glucose Ql (U) Negative Normal NEGATIVE [facility] Comment on above: Performed By: #### U RCX #### [facility] [address] [place] [address] Dr. Marvin Reis Hemoglobin Ql (U) SMALL Abnormal NEGATIVE [facility] Comment on above: Performed By: #### U RCX #### [facility] [address] [place] [address] Dr. Marvin Reis Ketones Ql (U) Negative Normal NEGATIVE [facility] Comment on above: Performed By: #### U RCX #### [facility] [address] [place] [address] Dr. Marvin Reis LEUKOCYTES MODERATE Abnormal NEGATIVE [facility] Comment on above: Performed By: #### U RCX #### [facility] [address] [place] [address] Dr. Marvin Reis MUCOUS NONE SEEN Normal NONE SEEN [facility] Comment on above: Performed By: #### U RCX #### [facility] [address] [place] [address] Dr. Marvin Reis Nitrite Ql (U) Negative Normal NEGATIVE [facility] Comment on above: Performed By: #### U RCX #### [facility] [address] [place] [address] Dr. Marvin Reis pH (U) 5.5 [pH] Normal 5-9 [facility] Comment on above: Performed By: #### U RCX #### [facility] [address] [place] [address] Dr. Marvin Reis RBC NONE SEEN Abnormal 0-2 [facility] Comment on above: Performed By: #### U RCX #### [facility] [address] [place] [address] Dr. Marvin Reis SPEC GRAVITY 1.015 Normal 1.005-<=1.025 [facility] Comment on above: Performed By: #### U RCX #### [facility] [address] [place] [address] Dr. Marvin Reis UA PROTEIN Negative Normal NEGATIVE/ TRACE [facility] Comment on above: Performed By: #### U RCX #### [facility] [address] [place] [address] Dr. Marvin Reis Urobilinogen Qn (U) 0.2 {Robbie'U}/dL Normal 0.2 - 1. 0 [facility] Comment on above: Performed By: #### U RCX #### [facility] [address] [place] [address] Dr. Marvin Reis WBC 20-50 Abnormal NONE SEEN [facility] Comment on above: Performed By: #### U RCX #### [facility] [address] [place] [address] Dr. Marvin Reis YEAST PRESENT Abnormal NONE SEEN [facility] Comment on above: Performed By: #### U RCX #### [facility] [address] [place] [address] Dr. Marvin Reis CULTURE URINEon 03-18-2022 CULTURE URINE Culture Observations : No growth Normal [facility] Comment on above: Performed By: #### U RCX #### [facility] [address] [place] [address] Dr. Marvin Reis UA RANDOM W/MICROSCOPICon BACTERIA NONE SEEN Normal NONE SEEN [facility] Comment on above: Performed By: #### U AMIC #### [facility] [address] [address] [address] Marvin Reis Bilirubin Ql (U) Negative Normal NEGATIVE [facility] Comment on above: Performed By: #### U AMIC #### [facility] [address] [address] [address] Marvin Reis CAST NONE SEEN Normal NONE SEEN [facility] Comment on above: Performed By: #### U AMIC #### [facility] [address] [place] [address] Dr. Marvin Reis Clarity (U) CLOUDY Abnormal CLEAR [facility] Comment on above: Performed By: #### U AMIC #### [facility] [address] [address] [address] Marvin Reis Color (U) LT. YELLOW Normal YELLOW [facility] Comment on above: Performed By: #### U AMIC #### [facility] [address] [place] [address] Dr. Marvin Reis Crystals LM Nom (Urine sed) NONE SEEN Normal NONE SEEN [facility] Comment on above: Performed By: #### U AMIC #### [facility] [address] [place] [address] Dr. Marvin Reis Epithelial cells LM Ql (Urine sed) RARE Normal NONE SEEN /RARE [facility] Comment on above: Performed By: #### U AMIC #### [facility] [address] [place] [address] Dr. Marvin Reis Glucose Ql (U) Negative Normal NEGATIVE [facility] Comment on above: Performed By: #### U AMIC #### [facility] [address] [place] [address] Dr. Marvin Reis Hemoglobin Ql (U) TRACE-INTACT Abnormal NEGATIVE [facility] Comment on above: Performed By: #### U AMIC #### [facility] [address] [place] [address] Dr. Marvin Reis Ketones Ql (U) Negative Normal NEGATIVE [facility] Comment on above: Performed By: #### U AMIC #### [facility] [address] [place] [address] Dr. Marvin Reis LEUKOCYTES MODERATE Abnormal NEGATIVE [facility] Comment on above: Performed By: #### U AMIC #### [facility] [address] [address] [address] Marvin Reis MUCOUS NONE SEEN Normal NONE SEEN [facility] Comment on above: Performed By: #### U AMIC #### [facility] [address] [address] [address] Marvin Reis Nitrite Ql (U) Negative Normal NEGATIVE [facility] Comment on above: Performed By: #### U AMIC #### [facility] [address] [address] [address] Marvin Reis pH (U) 6.0 [pH] Normal 5-9 [facility] Comment on above: Performed By: #### U AMIC #### [facility] [address] [place] [address] Dr. Marvin Reis RBC NONE SEEN Abnormal 0-2 [facility] Comment on above: Performed By: #### U AMIC #### [facility] [address] [place] [address] Dr. Marvin Reis SPEC GRAVITY 1.015 Normal 1.005-<=1.025 [facility] Comment on above: Performed By: #### U AMIC #### [facility] [address] [address] [address] Marvin Reis UA PROTEIN Negative Normal NEGATIVE/ TRACE [facility] Comment on above: Performed By: #### U AMIC #### [facility] [address] [address] [address] Marvin Reis Urobilinogen Qn (U) 0.2 {Robbie'U}/dL Normal 0.2 - 1. 0 [facility] Comment on above: Performed By: #### U AMIC #### [facility] [address] [place] [address] Dr. Marvin Reis WBC 10-20 Abnormal NONE SEEN [facility] Comment on above: Performed By: #### U AMIC #### [facility] [address] [place] [address] Dr. Marvin Reis Coding Summary.on 06-21-2020 Coding Summary. CODING DATE: 06/21/2020 FINAL [facility] STATUS: PAYOR: Worker's Compensation ADMIT DX: REASON [...] Hopper CphT Date Saved: 06/21/2020 12:01 pm [facility] PT - Assessmentson 0 PT - Assessments [id number]# 1.00CD:127 [facility] PT - Orderson 06-20-2020 PT - Orders [id number] 1.00CD:127 [facility] PT - Workers Compon 06-20-20 20 PT - Workers Comp [id number] 1.00CD:127 [facility] Encounters Encounter Date Encounter Type Care Provider Facility Start: 03-10-2023 End: 03-11-2023 [facility] Start: 03-03-2023 End: 03-03-[address] [...] Facility:[facility] Payers Date Payer Category Payer Medicare [id number] 1961 Unknown [id number] 1960 Unknown [id number] 2.16.84 0.1.286913.3.579.2.593 1958 Unknown [id number] 2.16.84 0.1.504104.3.579.2.593 1958 Unknown [id number] 2.16.84 0.1.109238.3.579.2.593 1958 Unknown [id number] 2.16.84 0.1.344061.3.579.2.593 1958 Unknown [id number] 2.16.84 0.1.152143.3.579.2.593 1958 Unknown [id number] 2.16.84 0.1.622106.3.579.2.593 1958 Unknown [id number] 2.16.84 0.1.624215.3.579.2.593 1958 Unknown [id number] 2.16.84 0.1.510154.3.579.2.593 1958 Unknown [id number] 2.16.84 0.1.151079.3.579.2.593 1958 Unknown [id number] 2.16.84 0.1.687302.3.579.2.593 1958 Unknown [id number] 2.16.84 0.1.875427.3.579.2.593 1958 Unknown [id number] 2.16.84 0.1.874754.3.579.2.593 1958 Unknown [id number] 2.16.84 0.1.882177.3.579.2.593 1958 Unknown [id number] 2.16.84 0.1.561102.3.579.2.593 1958 Unknown [id number] 2.16.84 0.1.171365.3.579.2.593 1958 Unknown [id number] 2.16.84 0.1.371703.3.579.2.593 1958 Unknown [id number] 2.16.84 0.1.786656.3.579.2.593 1958 Unknown [id number] 2.16.84 0.1.083716.3.579.2.593 1958 Unknown [id number] 2.16.84 0.1.695425.3.579.2.593 Summary Purpose Family History No Family History [...] and content) DATE CREATED AUTHOR 09/19/2020 [facility] DATE CREATED AUTHOR AUTHOR'S ORGANIZ ATION 03/06/2023 [facility] DATE CREATED AUTHOR AUTHOR'S ORGANIZ ATION 03/11/2023 [facility] DATE CREATED AUTHOR AUTHOR'S ORGANIZ ATION 06/07/[address] [facility] FOR RECORDS PERTAINING TO PATIENTS WHO [...] BE BASED ON THE PRIMARY CLINICAL RECORDS. [employer] [facility]. provides no warranty or guarantee of the accuracy or completeness of information in this document.
== END 2024-06-22 08:43 | disposition home or self-care (01) ==
LOC: LAB 08:42
PROVIDERS: PCP Family Medicine; Visit Provider Family Medicine
DX: N39.0 Urinary tract infection, site not specified (principal)
CPT/HCPCS: 81001; 87086; 87186

== ENCOUNTER 2024-07-12 10:34 | Outpatient (REF) | payer OTHER, SELFPAY ==
[2024-07-12 10:40] LABS: Bilirubin Urine NEGATIVE (NEGATIVE); Blood Urine MODERATE (NEGATIVE); Color Urine LT. YELLOW (YELLOW); Glucose Urine UA NEGATIVE (NEGATIVE); Ketones Urine NEGATIVE (NEGATIVE); Leukocyte Esterase Urine LARGE (NEGATIVE); Nitrite Urine POSITIVE (NEGATIVE); Protein Urine 100 mg/dL (NEG/TRACE); Urobilinogen Urine 0.2 EU/dL (0.2-1.0)
[2024-07-12 10:49] LABS: Clarity Urine CLOUDY (CLEAR)
--- OUTSIDE RECORDS SUMMARY | 2024-07-12 10:54 | XMS_ITS | CCD ---
Author Organization [facility] Care Team Providers Care Nuisance Wildlife Trapper Name Role Phone HOY ., DR WEBBER [...] Unavailable HOY ., DR WEBBER Admherman Unavailable [place], DR MAGY [employer] Unavailable HOY ., [...] DR WEBBER Consulting Unavailable HOY ., DR WEBBRE Primary Care Unavailable HOY ., DR WEBBER [...] source) ceFAZolin Drug Allergy 04-21-20 13 [facility] (1 source) Cilastatin / Imipenem Drug Allergy 04-21-20 13 [facility] (1 source) Readi-Cat Drug allergy (disorder) 04-21-20 13 [facility] (1 source) ceFAZolin; Translations: [CEFAZOLIN] Drug Allergy 12-01-19 13 [facility] (1 source) Cephalexin; Translations: [CEPHALEXIN MONOHYDRATE] Drug Allergy 08-03-20 09 [facility] (1 source) Promazine; Translations: [PROMAZINE] Drug Allergy 12-01-19 13 [facility] (1 source) Sulfamethoxazole / Trimethoprim; Translations: [SULFAMETHOXAZOLE-TR IMETHOPRIM] Drug Allergy 03-10-20 23 [facility] (1 source) IODINATED CONTRAST MEDIA; Translations: [IODINATED CONTRAST MEDIA] Propensity to adverse reactions to drug (disorder) 12-01-19 13 [facility] Problems Active Problems Problem Classification [...] RESISTANT TO ALL B-LACTAM DRUGS. PERFORMED BY: [place] [address] PATHOLOGIST THERMOSCREW OPERATOR MARLA VEGA M.D. [facility] Comment on above: Performed By: #### A MAI LAYNE #### [place] [id number] [place] Gram Stainon 06-03-2023 Microscopic observation Gram stain Nom (Unsp spec) Gram Stain Result No Bacteria Seen PERFORMED BY: [place] [address] PATHOLOGIST THERMOSCREW OPERATOR MARLA VEGA M.D. [facility] Comment on above: Performed By: #### A MAI LAYNE #### [place] [id number] [place] CULTURE URINEon 03-06-2023 CULTURE URINE Isolate [...] F Levofloxacin 2 S F Normal [facility] Comment on above: Performed By: #### U RCX #### [facility] [address] [place] [address] Dr. Marvin Reis UA RANDOM W/MICROSCOPICon BACTERIA SMALL Abnormal NONE SEEN [facility] Comment on above: Performed By: #### U AMIC #### [facility] [address] [place] [address] Dr. Marvin Reis Bilirubin Ql (U) Negative Normal NEGATIVE [facility] Comment on above: Performed By: #### U AMIC #### [facility] [address] [place] [address] Dr. Marvin Reis CAST NONE SEEN Normal NONE SEEN [facility] Comment on above: Performed By: #### U AMIC #### [facility] [address] [place] [address] Dr. Marvin Reis Clarity (U) CLEAR Normal CLEAR [facility] Comment on above: Performed By: #### U AMIC #### [facility] [address] [place] [address] Dr. Marvin Reis Color (U) LT. YELLOW Normal YELLOW [facility] Comment on above: Performed By: #### U AMIC #### [facility] [address] [address] [address] Marvin Reis Crystals LM Nom (Urine sed) NONE SEEN Normal NONE SEEN [facility] Comment on above: Performed By: #### U AMIC #### [facility] [address] [place] [address] Dr. Marvin Reis Epithelial cells LM Ql (Urine sed) RARE Normal NONE SEEN /RARE [facility] Comment on above: Performed By: #### U AMIC #### [facility] [address] [address] [address] Marvin Reis Glucose Ql (U) Negative Normal NEGATIVE [facility] Comment on above: Performed By: #### U AMIC #### [facility] [address] [place] [address] Dr. Marvin Reis Hemoglobin Ql (U) Negative Normal NEGATIVE [facility] Comment on above: Performed By: #### U AMIC #### [facility] [address] [place] [address] Dr. Marvin Reis Ketones Ql (U) Negative Normal NEGATIVE [facility] Comment on above: Performed By: #### U AMIC #### [facility] [address] [place] [address] Dr. Marvin Reis LEUKOCYTES SMALL Abnormal NEGATIVE [facility] Comment on above: Performed By: #### U AMIC #### [facility] [address] [place] [address] Dr. Marvin Reis MUCOUS NONE SEEN Normal NONE SEEN [facility] Comment on above: Performed By: #### U AMIC #### [facility] [address] [place] [address] Dr. Marvin Reis Nitrite Ql (U) Negative Normal NEGATIVE [facility] Comment on above: Performed By: #### U AMIC #### [facility] [address] [place] [address] Dr. Marvin Reis pH (U) 6.0 [pH] Normal 5-9 [facility] Comment on above: Performed By: #### U AMIC #### [facility] [address] [place] [address] Dr. Marvin Reis RBC 0-2 Normal 0-2 [facility] Comment on above: Performed By: #### U AMIC #### [facility] [address] [place] [address] Dr. Marvin Reis SPEC GRAVITY 1.010 Normal 1.005-<=1.025 [facility] Comment on above: Performed By: #### U AMIC #### [facility] [address] [address] [address] Marvin Reis UA PROTEIN Negative Normal NEGATIVE/ TRACE [facility] Comment on above: Performed By: #### U AMIC #### [facility] [address] [place] [address] Dr. Marvin Reis Urobilinogen Qn (U) 0.2 {Robbie'U}/dL Normal 0.2 - 1. 0 [facility] Comment on above: Performed By: #### U AMIC #### [facility] [address] [place] [address] Dr. Marvin Reis WBC 5-10 Abnormal NONE SEEN [facility] Comment on above: Performed By: #### U AMIC #### [facility] [address] [place] [address] Dr. Marvin Reis CULTURE URINEon 02-13-2023 CULTURE [...] F Levofloxacin 2 S F Normal [facility] Comment on above: Performed By: #### U RCX #### [facility] [address] [place] [address] Dr. Marvin Reis UA RANDOM W/MICROSCOPICon BACTERIA MODERATE Abnormal NONE SEEN [facility] Comment on above: Performed By: #### U AMIC #### [facility] [address] [place] [address] Dr. Marvin Reis Bilirubin Ql (U) Negative Normal NEGATIVE [facility] Comment on above: Performed By: #### U AMIC #### [facility] [address] [place] [address] Dr. Marvin Reis CAST NONE SEEN Normal NONE SEEN [facility] Comment on above: Performed By: #### U AMIC #### [facility] [address] [place] [address] Dr. Marvin Reis Clarity (U) CLEAR Normal CLEAR [facility] Comment on above: Performed By: #### U AMIC #### [facility] [address] [place] [address] Dr. Marvin Reis Color (U) LT. YELLOW Normal YELLOW [facility] Comment on above: Performed By: #### U AMIC #### [facility] [address] [place] [address] Dr. Marvin Reis Crystals LM Nom (Urine sed) NONE SEEN Normal NONE SEEN [facility] Comment on above: Performed By: #### U AMIC #### [facility] [address] [place] [address] Dr. Marvin Reis Epithelial cells LM Ql (Urine sed) MODERATE Abnormal NONE SEEN /RARE [facility] Comment on above: Performed By: #### U AMIC #### [facility] [address] [place] [address] Dr. Marvin Reis Glucose Ql (U) Negative Normal NEGATIVE [facility] Comment on above: Performed By: #### U AMIC #### [facility] [address] [place] [address] Dr. Marvin Reis Hemoglobin Ql (U) SMALL Abnormal NEGATIVE [facility] Comment on above: Performed By: #### U AMIC #### [facility] [address] [address] [address] Marvin Reis Ketones Ql (U) Negative Normal NEGATIVE [facility] Comment on above: Performed By: #### U AMIC #### [facility] [address] [address] [address] Marvin Reis LEUKOCYTES LARGE Abnormal NEGATIVE [facility] Comment on above: Performed By: #### U AMIC #### [facility] [address] [address] [address] Marvin Reis MUCOUS NONE SEEN Normal NONE SEEN [facility] Comment on above: Performed By: #### U AMIC #### [facility] [address] [place] [address] Dr. Marvin Reis Nitrite Ql (U) Positive Abnormal NEGATIVE [facility] Comment on above: Performed By: #### U AMIC #### [facility] [address] [address] [address] Marvin Reis pH (U) 5.5 [pH] Normal 5-9 [facility] Comment on above: Performed By: #### U AMIC #### [facility] [address] [address] [address] Marvin Reis RBC 5-10 Abnormal 0-2 [facility] Comment on above: Performed By: #### U AMIC #### [facility] [address] [address] [address] Marvin Reis SPEC GRAVITY 1.015 Normal 1.005-<=1.025 [facility] Comment on above: Performed By: #### U AMIC #### [facility] [address] [address] [address] Marvin Reis UA PROTEIN Negative Normal NEGATIVE/ TRACE [facility] Comment on above: Performed By: #### U AMIC #### [facility] [address] [place] [address] Dr. Marvin Reis Urobilinogen Qn (U) 0.2 {Robbie'U}/dL Normal 0.2 - 1. 0 [facility] Comment on above: Performed By: #### U AMIC #### [facility] [address] [place] [address] Dr. Marvin Reis WBC 50-75 Abnormal NONE SEEN [facility] Comment on above: Performed By: #### U AMIC #### [facility] [id number] Marvin Reis CULTURE URINEon 01-23-2023 CULTURE [...] Trimethoprim/Sulfamet hoxazole <=10 S F Normal [facility] Comment on above: Performed By: #### U AMIC #### [facility] [address] [place] [address] Dr. Marvin Reis UA RANDOM W/MICROSCOPICon BACTERIA TRACE Abnormal NONE SEEN [facility] Comment on above: Performed By: #### U AMIC #### [facility] [address] [place] [address] Dr. Marvin Reis Bilirubin Ql (U) Negative Normal NEGATIVE [facility] Comment on above: Performed By: #### U AMIC #### [facility] [address] [address] [address] Marvin Reis CAST NONE SEEN Normal NONE SEEN [facility] Comment on above: Performed By: #### U AMIC #### [facility] [address] [address] [address] Marvin Reis Clarity (U) SL CLOUDY Abnormal CLEAR [facility] Comment on above: Performed By: #### U AMIC #### [facility] [address] [address] [address] Marvin Reis Color (U) LT. YELLOW Normal YELLOW [facility] Comment on above: Performed By: #### U AMIC #### [facility] [address] [place] [address] Dr. Marvin Reis Crystals LM Nom (Urine sed) NONE SEEN Normal NONE SEEN [facility] Comment on above: Performed By: #### U AMIC #### [facility] [address] [place] [address] Dr. Marvin Reis Epithelial cells LM Ql (Urine sed) NONE SEEN Normal NONE SEEN /RARE [facility] Comment on above: Performed By: #### U AMIC #### [facility] [address] [place] [address] Dr. Marvin Reis Glucose Ql (U) Negative Normal NEGATIVE [facility] Comment on above: Performed By: #### U AMIC #### [facility] [address] [address] [address] Marvin Reis Hemoglobin Ql (U) Negative Normal NEGATIVE [facility] Comment on above: Performed By: #### U AMIC #### [facility] [address] [address] [address] Marvin Reis Ketones Ql (U) Negative Normal NEGATIVE [facility] Comment on above: Performed By: #### U AMIC #### [facility] [address] [place] [address] Dr. Marvin Reis LEUKOCYTES TRACE Abnormal NEGATIVE [facility] Comment on above: Performed By: #### U AMIC #### [facility] [address] [address] [address] Marvin Reis MUCOUS NONE SEEN Normal NONE SEEN [facility] Comment on above: Performed By: #### U AMIC #### [facility] [address] [place] [address] Dr. Marvin Reis Nitrite Ql (U) Negative Normal NEGATIVE [facility] Comment on above: Performed By: #### U AMIC #### [facility] [address] [place] [address] Dr. Marvin Reis pH (U) 6.0 [pH] Normal 5-9 [facility] Comment on above: Performed By: #### U AMIC #### [facility] [address] [place] [address] Dr. Marvin Reis RBC NONE SEEN Abnormal 0-2 [facility] Comment on above: Performed By: #### U AMIC #### [facility] [address] [place] [address] Dr. Marvin Reis SPEC GRAVITY 1.020 Normal 1.005-<=1.025 [facility] Comment on above: Performed By: #### U AMIC #### [facility] [address] [place] [address] Dr. Marvin Reis UA PROTEIN Negative Normal NEGATIVE/ TRACE [facility] Comment on above: Performed By: #### U AMIC #### [facility] [address] [place] [address] Dr. Marvin Reis Urobilinogen Qn (U) 0.2 {Robbie'U}/dL Normal 0.2 - 1. 0 [facility] Comment on above: Performed By: #### U AMIC #### [facility] [address] [place] [address] Dr. Marvin Reis WBC 10-20 Abnormal NONE SEEN [facility] Comment on above: Performed By: #### U AMIC #### [facility] [address] [place] [address] Dr. Marvin Reis CULTURE URINEon 01-07-2023 CULTURE URINE Isolate 1 Dawna albicans 10,000 cfu/mL of Normal [facility] Comment on above: Performed By: #### U RCX #### [facility] [address] [address] [address] Marvin Reis UA RANDOM W/MICROSCOPICon BACTERIA TRACE Abnormal NONE SEEN [facility] Comment on above: Performed By: #### U AMIC #### [facility] [address] [address] [address] Marvin Reis Bilirubin Ql (U) Negative Normal NEGATIVE [facility] Comment on above: Performed By: #### U AMIC #### [facility] [address] [address] [address] Marvin Reis CA OX CRYSTALS RARE Normal [facility] Comment on above: Performed By: #### U AMIC #### [facility] [address] [address] [address] Marvin Reis CAST NONE SEEN Normal NONE SEEN [facility] Comment on above: Performed By: #### U AMIC #### [facility] [address] [address] [address] Marvin Reis Clarity (U) CLEAR Normal CLEAR [facility] Comment on above: Performed By: #### U AMIC #### [facility] [address] [address] [address] Marvin Reis Color (U) LT. YELLOW Normal YELLOW [facility] Comment on above: Performed By: #### U AMIC #### [facility] [address] [address] [address] Marvin Reis Crystals LM Nom (Urine sed) SEEN Abnormal NONE SEEN [facility] Comment on above: Performed By: #### U AMIC #### [facility] [address] [address] [address] Marvin Reis Epithelial cells LM Ql (Urine sed) FEW Abnormal NONE SEEN /RARE [facility] Comment on above: Performed By: #### U AMIC #### [facility] [address] [address] [address] Marvin Reis Glucose Ql (U) Negative Normal NEGATIVE [facility] Comment on above: Performed By: #### U AMIC #### [facility] [address] [address] [address] Marvin Reis Hemoglobin Ql (U) Negative Normal NEGATIVE [facility] Comment on above: Performed By: #### U AMIC #### [facility] [address] [address] [address] Marvin Reis Ketones Ql (U) Negative Normal NEGATIVE [facility] Comment on above: Performed By: #### U AMIC #### [facility] [address] [address] [address] Marvin Reis LEUKOCYTES SMALL Abnormal NEGATIVE [facility] Comment on above: Performed By: #### U AMIC #### [facility] [address] [place] [address] Dr. Marvin Reis MUCOUS NONE SEEN Normal NONE SEEN [facility] Comment on above: Performed By: #### U AMIC #### [facility] [address] [place] [address] Dr. Marvin Reis Nitrite Ql (U) Negative Normal NEGATIVE [facility] Comment on above: Performed By: #### U AMIC #### [facility] [address] [place] [address] Dr. Marvin Reis pH (U) 5.5 [pH] Normal 5-9 [facility] Comment on above: Performed By: #### U AMIC #### [facility] [address] [place] [address] Dr. Marvin Reis RBC 0-2 Normal 0-2 [facility] Comment on above: Performed By: #### U AMIC #### [facility] [address] [place] [address] Dr. Marvin Reis SPEC GRAVITY 1.015 Normal 1.005-<=1.025 [facility] Comment on above: Performed By: #### U AMIC #### [facility] [address] [place] [address] Dr. Marvin Reis UA PROTEIN Negative Normal NEGATIVE/ TRACE [facility] Comment on above: Performed By: #### U AMIC #### [facility] [address] [place] [address] Dr. Marvin Reis Urobilinogen Qn (U) 0.2 {Robbie'U}/dL Normal 0.2 - 1. 0 [facility] Comment on above: Performed By: #### U AMIC #### [facility] [address] [place] [address] Dr. Marvin Reis WBC 50-75 Abnormal NONE SEEN [facility] Comment on above: Performed By: #### U AMIC #### [facility] [address] [place] [address] Dr. Marvin Reis YEAST PRESENT Abnormal NONE SEEN [facility] Comment on above: Performed By: #### U AMIC #### [facility] [address] [place] [address] Dr. Marvin Reis CULTURE URINEon 12-25-2022 CULTURE [...] Trimethoprim/Sulfamet hoxazole >=320 R F Normal [facility] Comment on above: Performed By: #### U RCX #### [facility] [address] [place] [address] Dr. Marvin Reis UA RANDOM W/MICROSCOPICon BACTERIA NONE SEEN Normal NONE SEEN [facility] Comment on above: Performed By: #### U AMIC #### [facility] [address] [place] [address] Dr. Marvin Reis Bilirubin Ql (U) Negative Normal NEGATIVE [facility] Comment on above: Performed By: #### U AMIC #### [facility] [address] [place] [address] Dr. Marvin Reis CAST NONE SEEN Normal NONE SEEN [facility] Comment on above: Performed By: #### U AMIC #### [facility] [address] [place] [address] Dr. Marvin Reis Clarity (U) CLEAR Normal CLEAR [facility] Comment on above: Performed By: #### U AMIC #### [facility] [address] [address] [address] Marvin Reis Color (U) LT. YELLOW Normal YELLOW [facility] Comment on above: Performed By: #### U AMIC #### [facility] [address] [place] [address] Dr. Marvin Reis Crystals LM Nom (Urine sed) NONE SEEN Normal NONE SEEN [facility] Comment on above: Performed By: #### U AMIC #### [facility] [address] [place] [address] Dr. Marvin Reis Epithelial cells LM Ql (Urine sed) RARE Normal NONE SEEN /RARE [facility] Comment on above: Performed By: #### U AMIC #### [facility] [address] [place] [address] Dr. Marvin Reis Glucose Ql (U) Negative Normal NEGATIVE [facility] Comment on above: Performed By: #### U AMIC #### [facility] [address] [place] [address] Dr. Marvin Reis Hemoglobin Ql (U) Negative Normal NEGATIVE [facility] Comment on above: Performed By: #### U AMIC #### [facility] [address] [address] [address] Marvin Reis Ketones Ql (U) Negative Normal NEGATIVE [facility] Comment on above: Performed By: #### U AMIC #### [facility] [address] [place] [address] Dr. Marvin Reis LEUKOCYTES MODERATE Abnormal NEGATIVE [facility] Comment on above: Performed By: #### U AMIC #### [facility] [address] [place] [address] Dr. Marvin Reis MUCOUS NONE SEEN Normal NONE SEEN [facility] Comment on above: Performed By: #### U AMIC #### [facility] [address] [place] [address] Dr. Marvin Reis Nitrite Ql (U) Negative Normal NEGATIVE [facility] Comment on above: Performed By: #### U AMIC #### [facility] [address] [place] [address] Dr. Marvin Reis pH (U) 5.5 [pH] Normal 5-9 [facility] Comment on above: Performed By: #### U AMIC #### [facility] [address] [place] [address] Dr. Marvin Reis RBC NONE SEEN Abnormal 0-2 [facility] Comment on above: Performed By: #### U AMIC #### [facility] [address] [place] [address] Dr. Marvin Reis SPEC GRAVITY 1.015 Normal 1.005-<=1.025 [facility] Comment on above: Performed By: #### U AMIC #### [facility] [address] [place] [address] Dr. Marvin Reis UA PROTEIN Negative Normal NEGATIVE/ TRACE [facility] Comment on above: Performed By: #### U AMIC #### [facility] [address] [place] [address] Dr. Marvin Reis Urobilinogen Qn (U) 0.2 {Robbie'U}/dL Normal 0.2 - 1. 0 [facility] Comment on above: Performed By: #### U AMIC #### [facility] [address] [place] [address] Dr. Marvin Reis WBC 10-20 Abnormal NONE SEEN [facility] Comment on above: Performed By: #### U AMIC #### [facility] [address] [place] [address] Dr. Marvin Reis CULTURE URINEon 12-05-2022 CULTURE [...] Trimethoprim/Sulfamet hoxazole <=20 S F Normal [facility] Comment on above: Performed By: #### U RCX #### [facility] [address] [place] [address] Dr. Marvin Reis CREATININEon 12-03-2022 Creatinine [Mass/Vol] 0.88 mg/dL Normal 0.70-1.30 [facility] Comment on above: Performed By: #### U RCX #### [facility] [address] [place] [address] Dr. Marvin Reis EGFR-AF GREEK >60 Normal >=60 [facility] Comment on above: Performed By: #### U RCX #### [facility] [address] [place] [address] Dr. Marvin Reis EGFR-NON AF GREEK >60 Normal >=60 [facility] Comment on above: Performed By: #### U RCX #### [facility] [address] [place] [address] ABDOMEN WO/W CONon [...] ELENO PARKER Date: 2022-12-03 14:51 Normal [facility] UA RANDOM W/MICROSCOPICon BACTERIA TRACE Abnormal NONE SEEN [facility] Comment on above: Performed By: #### U RCX #### [facility] [address] [place] [address] Dr. Marvin Reis Bilirubin Ql (U) Negative Normal NEGATIVE [facility] Comment on above: Performed By: #### U RCX #### [facility] [address] [place] [address] Dr. Marvin Reis CAST NONE SEEN Normal NONE SEEN [facility] Comment on above: Performed By: #### U RCX #### [facility] [address] [place] [address] Dr. Marvin Reis Clarity (U) CLEAR Normal CLEAR [facility] Comment on above: Performed By: #### U RCX #### [facility] [address] [place] [address] Dr. Marvin Reis Color (U) LT. YELLOW Normal YELLOW [facility] Comment on above: Performed By: #### U RCX #### [facility] [address] [place] [address] Dr. Marvin Reis Crystals LM Nom (Urine sed) NONE SEEN Normal NONE SEEN [facility] Comment on above: Performed By: #### U RCX #### [facility] [address] [place] [address] Dr. Marvin Reis Epithelial cells LM Ql (Urine sed) RARE Normal NONE SEEN /RARE [facility] Comment on above: Performed By: #### U RCX #### [facility] [address] [address] [address] Marvin Reis Glucose Ql (U) Negative Normal NEGATIVE [facility] Comment on above: Performed By: #### U RCX #### [facility] [address] [address] [address] Marvin Reis Hemoglobin Ql (U) TRACE-INTACT Abnormal NEGATIVE [facility] Comment on above: Performed By: #### U RCX #### [facility] [address] [address] [address] Marvin Reis Ketones Ql (U) Negative Normal NEGATIVE [facility] Comment on above: Performed By: #### U RCX #### [facility] [address] [place] [address] Dr. Marvin Reis LEUKOCYTES TRACE Abnormal NEGATIVE [facility] Comment on above: Performed By: #### U RCX #### [facility] [address] [address] [address] Marvin Reis MUCOUS TRACE Abnormal NONE SEEN [facility] Comment on above: Performed By: #### U RCX #### [facility] [address] [place] [address] Dr. Marvin Reis Nitrite Ql (U) Negative Normal NEGATIVE [facility] Comment on above: Performed By: #### U RCX #### [facility] [address] [address] [address] Marvin Reis pH (U) 5.0 [pH] Normal 5-9 [facility] Comment on above: Performed By: #### U RCX #### [facility] [address] [address] [address] Marvin Reis RBC 0-2 Normal 0-2 [facility] Comment on above: Performed By: #### U RCX #### [facility] [address] [place] [address] Dr. Marvin Reis SPEC GRAVITY 1.010 Normal 1.005-<=1.025 [facility] Comment on above: Performed By: #### U RCX #### [facility] [address] [place], [place] [address] Dr[address] Marvin Reis UA PROTEIN TRACE Normal NEGATIVE/ TRACE [facility] Comment on above: Performed By: #### U RCX #### [facility] [address] [place], [place] [address] Dr. Marvin Reis Urobilinogen Qn (U) 0.2 {Robbie'U}/dL Normal 0.2 - 1. 0 [facility] Comment on above: Performed By: #### U RCX #### [facility] [address] [address] [address] Marvin Reis WBC 2-5 Abnormal NONE SEEN [facility] Comment on above: Performed By: #### U RCX #### [facility] [address] ABD/PELVIS WO CONon [...] MAGY COMER Date: 2022-11-20 14:51 Normal [facility] CULTURE URINEon 11-11-2022 CULTURE URINE Culture Observations : GUSTABO TO FOLLOW. Isolate 1 Enterobacter aerogenes >100,000 cfu/mL of Normal [facility] Comment on above: Performed By: #### U RCX #### [facility] [address] [place] [address] Dr. Marvin Reis UA RANDOM W/MICROSCOPICon BACTERIA SMALL Abnormal NONE SEEN [facility] Comment on above: Performed By: #### U AMIC #### [facility] [address] [place] [address] Dr. Marvin Reis Bilirubin Ql (U) Negative Normal NEGATIVE [facility] Comment on above: Performed By: #### U AMIC #### [facility] [address] [place] [address] Dr. Marvin Reis CAST NONE SEEN Normal NONE SEEN [facility] Comment on above: Performed By: #### U AMIC #### [facility] [address] [place] [address] Dr. Marvin Reis Clarity (U) CLOUDY Abnormal CLEAR [facility] Comment on above: Performed By: #### U AMIC #### [facility] [address] [place] [address] Dr. Marvin Reis Color (U) LT. YELLOW Normal YELLOW [facility] Comment on above: Performed By: #### U AMIC #### [facility] [address] [address] [address] Marvin Reis Crystals LM Nom (Urine sed) NONE SEEN Normal NONE SEEN [facility] Comment on above: Performed By: #### U AMIC #### [facility] [address] [address] [address] Marvin Reis Epithelial cells LM Ql (Urine sed) NONE SEEN Normal NONE SEEN /RARE [facility] Comment on above: Performed By: #### U AMIC #### [facility] [address] [address] [address] Marvin Reis Glucose Ql (U) Negative Normal NEGATIVE [facility] Comment on above: Performed By: #### U AMIC #### [facility] [address] [place] [address] Dr. Marvin Reis Hemoglobin Ql (U) TRACE-INTACT Abnormal NEGATIVE [facility] Comment on above: Performed By: #### U AMIC #### [facility] [address] [address] [address] Marvin Reis Ketones Ql (U) Negative Normal NEGATIVE [facility] Comment on above: Performed By: #### U AMIC #### [facility] [address] [address] [address] Marvin Reis LEUKOCYTES LARGE Abnormal NEGATIVE [facility] Comment on above: Performed By: #### U AMIC #### [facility] [address] [address] [address] Marvin Reis MUCOUS NONE SEEN Normal NONE SEEN [facility] Comment on above: Performed By: #### U AMIC #### [facility] [address] [place] [address] Dr. Marvin Reis Nitrite Ql (U) Positive Abnormal NEGATIVE [facility] Comment on above: Performed By: #### U AMIC #### [facility] [address] [place] [address] Dr. Marvin Reis pH (U) 5.5 [pH] Normal 5-9 [facility] Comment on above: Performed By: #### U AMIC #### [facility] [address] [place] [address] Dr. Marvin Reis RBC 0-2 Normal 0-2 [facility] Comment on above: Performed By: #### U AMIC #### [facility] [address] [place] [address] Dr. Marvin Reis SPEC GRAVITY 1.015 Normal 1.005-<=1.025 [facility] Comment on above: Performed By: #### U AMIC #### [facility] [address] [place] [address] Dr. Marvin Reis UA PROTEIN Negative Normal NEGATIVE/ TRACE [facility] Comment on above: Performed By: #### U AMIC #### [facility] [address] [place] [address] Dr. Marvin Reis Urobilinogen Qn (U) 0.2 {Robbie'U}/dL Normal 0.2 - 1. 0 [facility] Comment on above: Performed By: #### U AMIC #### [facility] [address] [place] [address] Dr. Marvin Reis WBC 10-20 Abnormal NONE SEEN [facility] Comment on above: Performed By: #### U AMIC #### [facility] [address] [place] [address] Dr. Marvin Reis CULTURE URINEon 10-24-2022 CULTURE [...] Trimethoprim/Sulfamet hoxazole <=20 S F Normal [facility] Comment on above: Performed By: #### U RCX #### [facility] [address] [place] [address] Dr. Marvin Reis UA RANDOM W/MICROSCOPICon BACTERIA LARGE Abnormal NONE SEEN [facility] Comment on above: Performed By: #### U AMIC #### [facility] [address] [address] [address] Marvin Reis Bilirubin Ql (U) Negative Normal NEGATIVE [facility] Comment on above: Performed By: #### U AMIC #### [facility] [address] [address] [address] Marvin Reis CAST NONE SEEN Normal NONE SEEN [facility] Comment on above: Performed By: #### U AMIC #### [facility] [address] [address] [address] Marvin Reis Clarity (U) SL CLOUDY Abnormal CLEAR [facility] Comment on above: Performed By: #### U AMIC #### [facility] [address] [address] [address] Marvin Reis Color (U) YELLOW Normal YELLOW [facility] Comment on above: Performed By: #### U AMIC #### [facility] [address] [address] [address] Marvin Reis Crystals LM Nom (Urine sed) NONE SEEN Normal NONE SEEN [facility] Comment on above: Performed By: #### U AMIC #### [facility] [address] [address] [address] Marvin Reis Epithelial cells LM Ql (Urine sed) FEW Abnormal NONE SEEN /RARE [facility] Comment on above: Performed By: #### U AMIC #### [facility] [address] [address] [address] Marvin Reis Glucose Ql (U) Negative Normal NEGATIVE [facility] Comment on above: Performed By: #### U AMIC #### [facility] [address] [address] [address] Marvin Reis Hemoglobin Ql (U) TRACE-INTACT Abnormal NEGATIVE [facility] Comment on above: Performed By: #### U AMIC #### [facility] [address] [address] [address] Marvin Reis Ketones Ql (U) Negative Normal NEGATIVE [facility] Comment on above: Performed By: #### U AMIC #### [facility] [address] [address] [address] Marvin Ries LEUKOCYTES LARGE Abnormal NEGATIVE [facility] Comment on above: Performed By: #### U AMIC #### [facility] [address] [address] [address] Marvin Reis MUCOUS NONE SEEN Normal NONE SEEN [facility] Comment on above: Performed By: #### U AMIC #### [facility] [address] [address] [address] Marvin Reis Nitrite Ql (U) Negative Normal NEGATIVE [facility] Comment on above: Performed By: #### U AMIC #### [facility] [address] [address] [address] Marvin Reis pH (U) 5.0 [pH] Normal 5-9 [facility] Comment on above: Performed By: #### U AMIC #### [facility] [address] [address] [address] Marvin Reis RBC 5-10 Abnormal 0-2 [facility] Comment on above: Performed By: #### U AMIC #### [facility] [address] [address] [address] Marvin Reis SPEC GRAVITY 1.010 Normal 1.005-<=1.025 [facility] Comment on above: Performed By: #### U AMIC #### [facility] [address] [place] [address] Dr. Marvin Reis UA PROTEIN Negative Normal NEGATIVE/ TRACE [facility] Comment on above: Performed By: #### U AMIC #### [facility] [address] [place] [address] Dr. Marvin Reis Urobilinogen Qn (U) 0.2 {Robbie'U}/dL Normal 0.2 - 1. 0 [facility] Comment on above: Performed By: #### U AMIC #### [facility] [address] [address] [address] Marvin Reis WBC 50-75 Abnormal NONE SEEN [facility] Comment on above: Performed By: #### U AMIC #### [facility] [address] [address] [address] Marvin Reis CULTURE URINEon 10-01-2022 CULTURE URINE Culture Observations : NO GROWTH. Normal [facility] Comment on above: Performed By: #### U AMIC #### [facility] [address] [address] [address] Marvin Reis UA RANDOM W/MICROSCOPICon BACTERIA SMALL Abnormal NONE SEEN [facility] Comment on above: Performed By: #### U AMIC #### [facility] [address] [address] [address] Marvin Reis Bilirubin Ql (U) Negative Normal NEGATIVE [facility] Comment on above: Performed By: #### U AMIC #### [facility] [address] [address] [address] Marvin Reis CAST SEEN Abnormal NONE SEEN [facility] Comment on above: Performed By: #### U AMIC #### [facility] [address] [address] [address] Marvin Reis Clarity (U) CLEAR Normal CLEAR [facility] Comment on above: Performed By: #### U AMIC #### [facility] [address] [address] [address] Marvin Reis Color (U) LT. YELLOW Normal YELLOW [facility] Comment on above: Performed By: #### U AMIC #### [facility] [address] [address] [address] Marvin Reis Crystals LM Nom (Urine sed) NONE SEEN Normal NONE SEEN [facility] Comment on above: Performed By: #### U AMIC #### [facility] [address] [address] [address] Marvin Reis Epithelial cells LM Ql (Urine sed) FEW Abnormal NONE SEEN /RARE [facility] Comment on above: Performed By: #### U AMIC #### [facility] [address] [place] [address] Dr. Marvin Reis Glucose Ql (U) Negative Normal NEGATIVE [facility] Comment on above: Performed By: #### U AMIC #### [facility] [address] [place] [address] Dr. Marvin Reis Hemoglobin Ql (U) TRACE-INTACT Abnormal NEGATIVE [facility] Comment on above: Performed By: #### U AMIC #### [facility] [address] [address] [address] Marvin Reis HYALINE CAST FEW Normal [facility] Comment on above: Performed By: #### U AMIC #### [facility] [address] [place] [address] Dr. Marvin Reis Ketones Ql (U) Negative Normal NEGATIVE [facility] Comment on above: Performed By: #### U AMIC #### [facility] [address] [place] [address] Dr. Marvni Reis LEUKOCYTES MODERATE Abnormal NEGATIVE [facility] Comment on above: Performed By: #### U AMIC #### [facility] [address] [place] [address] Dr. Marvin Reis MUCOUS SMALL Abnormal NONE SEEN [facility] Comment on above: Performed By: #### U AMIC #### [facility] [address] [place] [address] Dr. Marvin Reis Nitrite Ql (U) Negative Normal NEGATIVE [facility] Comment on above: Performed By: #### U AMIC #### [facility] [address] [place] [address] Dr. Marvin Reis pH (U) 5.5 [pH] Normal 5-9 [facility] Comment on above: Performed By: #### U AMIC #### [facility] [address] [place] [address] Dr. Marvin Reis RBC 0-2 Normal 0-2 [facility] Comment on above: Performed By: #### U AMIC #### [facility] [address] [place] [address] Dr. Marvin Reis SPEC GRAVITY 1.020 Normal 1.005-<=1.025 [facility] Comment on above: Performed By: #### U AMIC #### [facility] [address] [place] [address] Dr. Marvin Reis UA PROTEIN Negative Normal NEGATIVE/ TRACE [facility] Comment on above: Performed By: #### U AMIC #### [facility] [address] [address] [address] Marvin Reis Urobilinogen Qn (U) 0.2 {Robbie'U}/dL Normal 0.2 - 1. 0 [facility] Comment on above: Performed By: #### U AMIC #### [facility] [address] [address] [address] Marvin Reis WBC 10-20 Abnormal NONE SEEN [facility] Comment on above: Performed By: #### U AMIC #### [facility] [address] [address] [address] Marvin Reis CULTURE URINEon 09-26-2022 CULTURE [...] Trimethoprim/Sulfamet hoxazole <=20 S F Normal [facility] Comment on above: Performed By: #### U RCX #### [facility] [address] [place] [address] Dr. Marvin Reis CBC W MANUAL DIFFon 09-25-20 ANISOCYTOSIS SLIGHT Normal [facility] Comment on above: Performed By: #### U RCX #### [facility] [address] [place] [address] Dr. Marvin Reis ATYPICAL LYMPH # Normal [facility] Comment on above: Performed By: #### U RCX #### [facility] [address] [place] [address] Dr. Marvin Reis ATYPICAL LYMPH % Normal [facility] Comment on above: Performed By: #### U RCX #### [facility] [address] [place] [address] Dr. Marvin Reis BAND # Normal 0.0-0.3 [facility] Comment on above: Performed By: #### U RCX #### [facility] [address] [place] [address] Dr. Marvin Reis BAND % Normal 0-5 [facility] Comment on above: Performed By: #### U RCX #### [facility] [address] [place] [address] Dr. Marvin Reis BASOM # 0.00 103/ul Normal 0.00-0.10 [facility] Comment on above: Performed By: #### U RCX #### [facility] [address] [place] [address] Dr. Marvin Reis BASOM % 0.0 % Critically low 0.2-2.0 [facility] Comment on above: Performed By: #### U RCX #### [facility] [address] [place] [address] Dr. Marvin Reis BLAST # Normal [facility] Comment on above: Performed By: #### U RCX #### [facility] [address] [place] [address] Dr. Marvin Reis BLAST % Normal [facility] Comment on above: Performed By: #### U RCX #### [facility] [address] [place] [address] Dr. Marvin Reis CORRECTED WBC Normal 4.0-11.0 [facility] Comment on above: Performed By: #### U RCX #### [facility] [address] [place] [address] Dr. Marvin Reis EOS # 0.00 103/ul Normal 0.00-0.70 [facility] Comment on above: Performed By: #### U RCX #### [facility] [address] [place] [address] Dr. Marvin Reis EOS% 0.0 % Critically low 0.9-7.0 [facility] Comment on above: Performed By: #### U RCX #### [facility] [address] [place] [address] Dr. Marvin Reis HCT 32.1 % Critically low 42.0-54.0 [facility] Comment on above: Performed By: #### U RCX #### [facility] [address] [address] [address] Marvin Reis HGB 10.2 g/dl Critically low 14.0-18.0 [facility] Comment on above: Performed By: #### U RCX #### [facility] [address] [address] [address] Marvin Reis LYMPHM # 0.76 103/ul Critically low 1.20-3.80 [facility] Comment on above: Performed By: #### U RCX #### [facility] [address] [place] [address] Dr. Marvin Reis LYMPHM% 14.0 % Critically low 20.5-60.0 [facility] Comment on above: Performed By: #### U RCX #### [facility] [address] [place] [address] Dr. Marvin Reis MCH 26.5 pg Normal 25.9-34.0 [facility] Comment on above: Performed By: #### U RCX #### [facility] [address] [place] [address] Dr. Marvin Reis MCHC 31.8 g/dl Normal 29.9-35.2 [facility] Comment on above: Performed By: #### U RCX #### [facility] [address] [place] [address] Dr. Marvin Reis MCV 83.4 fL Normal 80.0-94.0 [facility] Comment on above: Performed By: #### U RCX #### [facility] [address] [address] [address] Marvin Reis METAMYELOCYTE # Normal [facility] Comment on above: Performed By: #### U RCX #### [facility] [address] [place] [address] Dr. Marvin Reis METAMYELOCYTE % Normal [facility] Comment on above: Performed By: #### U RCX #### [facility] [address] [address] [address] Marvin Reis MONOM# 0.27 103/ul Critically low 0.30-0.80 [facility] Comment on above: Performed By: #### U RCX #### [facility] [address] [address] [address] Marvin Reis MONOM% 5.0 % Normal 1.7-12.0 [facility] Comment on above: Performed By: #### U RCX #### [facility] [address] [address] [address] Marvin Reis MPV 9.8 fL Normal 9.5-13.5 [facility] Comment on above: Performed By: #### U RCX #### [facility] [address] [place] [address] Dr. Marvin Reis MYELOCYTE # Normal [facility] Comment on above: Performed By: #### U RCX #### [facility] [address] [address] [address] Marvin Reis MYELOCYTE % Normal [facility] Comment on above: Performed By: #### U RCX #### [facility] [address] [place] [address] Dr. Marvin Reis NRBC Normal [facility] Comment on above: Performed By: #### U RCX #### [facility] [address] [place] [address] Dr. Marvin Reis PLT 78 103/ul Critically low 150-450 [facility] Comment on above: Performed By: #### U RCX #### [facility] [address] [address] [address] Marvin Reis RBC 3.85 106/ul Critically low 4.70-6.10 [facility] Comment on above: Performed By: #### U RCX #### [facility] [address] [place] [address] Dr. Marvin Reis RDW 15.8 % Critically high 11.0-15.0 [facility] [facility] Comment on above: Performed By: #### U RCX #### [facility] [address] [address] [address] Marvin Reis SEG # 4.37 103/ul Normal 1.40-6.50 [facility] Comment on above: Performed By: #### U RCX #### [facility] [address] [address] [address] Marvin Reis SEG % 81.0 % Critically high 43.0-75.0 [facility] Comment on above: Performed By: #### U RCX #### [facility] [address] [place] [address] Dr. Marvin Reis WBC 5.4 103/ul Normal 4.0-11.0 [facility] Comment on above: Performed By: #### U RCX #### [facility] [address] [place] [address] Dr. Marvin Reis CRPon 09-25-2022 CRP 8.9 mg/dL Critically high <=1.0 [facility] Comment on above: Performed By: #### U AMIC #### [facility] [address] [place] [address] Dr. Marvin Reis LACTATE/LACTIC ACIDon 2021 Lactate [Moles/Vol] 0.9 mmol/L Normal 0.4-1.9 [facility] Comment on above: Performed By: #### U RCX #### [facility] [address] [place] [address] Dr. Marvin Reis PROF 14(COMP METB)on 022 Albumin [Mass/Vol] 2.6 g/dL Critically low 3.4-5.0 [facility] Comment on above: Performed By: #### U AMIC #### [facility] [address] [address] [address] Marvin Reis Albumin/Globulin [Mass ratio] 0.7 {ratio} Normal [facility] Comment on above: Performed By: #### U AMIC #### [facility] [address] [address] [address] Marvin Reis ALP [Catalytic activity/Vol] 75 U/L Normal 46-116 [facility] Comment on above: Performed By: #### U AMIC #### [facility] [address] [address] [address] Marvin Reis ALT [Catalytic activity/Vol] 23 U/L Normal 16-63 [facility] Comment on above: Performed By: #### U AMIC #### [facility] [address] [address] [address] Marvin Reis Anion gap [Moles/Vol] 11.8 mmol/L Normal [facility] Comment on above: Performed By: #### U AMIC #### [facility] [address] [address] [address] Marvin Reis AST [Catalytic activity/Vol] 21 U/L Normal 15-37 [facility] Comment on above: Performed By: #### U AMIC #### [facility] [address] [address] [address] Marvin Reis Bilirubin [Mass/Vol] 0.8 mg/dL Normal 0.2-1.0 [facility] Comment on above: Performed By: #### U AMIC #### [facility] [address] [address] [address] Marvin Reis Calcium [Mass/Vol] 8.7 mg/dL Normal 8.5-10.1 [facility] Comment on above: Performed By: #### U AMIC #### [facility] [address] [address] [address] Marvin Reis Chloride [Moles/Vol] 105 mmol/L Normal 98-107 [facility] Comment on above: Performed By: #### U AMIC #### [facility] [address] [address] [address] Marvin Reis CO2 [Moles/Vol] 26.1 mmol/L Normal 21.0-32.0 [facility] Comment on above: Performed By: #### U AMIC #### [facility] [address] [address] [address] Marvin Reis Creatinine [Mass/Vol] 0.88 mg/dL Normal 0.70-1.30 [facility] Comment on above: Performed By: #### U AMIC #### [facility] [address] [address] [address] Marvin Reis EGFR-AF GREEK >60 Normal >=60 [facility] Comment on above: Performed By: #### U AMIC #### [facility] [address] [address] [address] Marvin Reis EGFR-NON AF GREEK >60 Normal >=60 [facility] Comment on above: Performed By: #### U AMIC #### [facility] [address] [address] [address] Marvin Reis Globulin (S) [Mass/Vol] 3.7 g/dL Normal [facility] Comment on above: Performed By: #### U AMIC #### [facility] [address] [address] [address] Marvin Reis Glucose [Mass/Vol] 93 mg/dL Normal 74-106 [facility] Comment on above: Performed By: #### U AMIC #### [facility] [address] [address] [address] Marvin Reis Potassium [Moles/Vol] 3.9 mmol/L Normal 3.5-5.1 [facility] Comment on above: Performed By: #### U AMIC #### [facility] [address] [address] [address] Marvin Reis Protein [Mass/Vol] 6.3 g/dL Critically low 6.4-8.2 [facility] Comment on above: Performed By: #### U AMIC #### [facility] [address] [address] [address] Marvin Reis Sodium [Moles/Vol] 139 mmol/L Normal 136-145 [facility] Comment on above: Performed By: #### U AMIC #### [facility] [address] [address] [address] Marvin Reis Urea nitrogen [Mass/Vol] 20.0 mg/dL Critically high 7.0-18.0 [facility] Comment on above: Performed By: #### U AMIC #### [facility] [address] [place] [address] Dr. Marvin Reis Urea nitrogen/Creatinine [Mass ratio] 22.7 mg/mg Normal [facility] Comment on above: Performed By: #### U AMIC #### [facility] [address] [place] [address] Dr. Marvin Reis SED RATE WESTERGRENon 2021 SED RATE 49 mm/hr Critically high <=20 [facility] Comment on above: Performed By: #### U AMIC #### [facility] [address] [place] [address] Dr. Marvin Reis CBC W MANUAL DIFFon 09-24-20 ATYPICAL LYMPH # Normal [facility] Comment on above: Performed By: #### U RCX #### [facility] [address] [place] [address] Dr. Marvin Reis ATYPICAL LYMPH % Normal [facility] Comment on above: Performed By: #### U RCX #### [facility] [address] [place] [address] Dr. Marvin Reis BAND # Normal 0.0-0.3 [facility] Comment on above: Performed By: #### U RCX #### [facility] [address] [place] [address] Dr. Marvin Reis BAND % Normal 0-5 [facility] Comment on above: Performed By: #### U RCX #### [facility] [address] [place] [address] Dr. Marvin Reis BASOM # 0.00 103/ul Normal 0.00-0.10 [facility] Comment on above: Performed By: #### U RCX #### [facility] [address] [address] [address] Marvin Reis BASOM % 0.0 % Critically low 0.2-2.0 [facility] Comment on above: Performed By: #### U RCX #### [facility] [address] [place] [address] Dr. Marvin Reis BLAST # Normal [facility] Comment on above: Performed By: #### U RCX #### [facility] [address] [address] [address] Marvin Reis BLAST % Normal [facility] Comment on above: Performed By: #### U RCX #### [facility] [address] [place] [address] Dr. Marvin Reis CORRECTED WBC Normal 4.0-11.0 [facility] Comment on above: Performed By: #### U RCX #### [facility] [address] [address] [address] Marvin Reis EOS # 0.00 103/ul Normal 0.00-0.70 [facility] Comment on above: Performed By: #### U RCX #### [facility] [address] [place] [address] Dr. Marvin Reis EOS% 0.0 % Critically low 0.9-7.0 [facility] Comment on above: Performed By: #### U RCX #### [facility] [address] [place] [address] Dr. Marvin Reis HCT 33.5 % Critically low 42.0-54.0 [facility] Comment on above: Performed By: #### U RCX #### [facility] [address] [place] [address] Dr. Marvin Reis HGB 10.9 g/dl Critically low 14.0-18.0 [facility] Comment on above: Performed By: #### U RCX #### [facility] [address] [place] [address] Dr. Marvin Reis LYMPHM # 0.52 103/ul Critically low 1.20-3.80 [facility] Comment on above: Performed By: #### U RCX #### [facility] [address] [place] [address] Dr. Marvin Reis LYMPHM% 4.0 % Critically low 20.5-60.0 [facility] Comment on above: Performed By: #### U RCX #### [facility] [address] [place] [address] Dr. Marvin Reis MCH 27.2 pg Normal 25.9-34.0 [facility] Comment on above: Performed By: #### U RCX #### [facility] [address] [place] [address] Dr. Marvin Reis MCHC 32.5 g/dl Normal 29.9-35.2 [facility] Comment on above: Performed By: #### U RCX #### [facility] [address] [address] [address] Marvin Reis MCV 83.5 fL Normal 80.0-94.0 [facility] Comment on above: Performed By: #### U RCX #### [facility] [address] [place] [address] Dr. Marvin Reis METAMYELOCYTE # Normal [facility] Comment on above: Performed By: #### U RCX #### [facility] [address] [place] [address] Dr. Marvin Reis METAMYELOCYTE % Normal [facility] Comment on above: Performed By: #### U RCX #### [facility] [address] [place] [address] Dr. Marvin Reis MONOM# 0.39 103/ul Normal 0.30-0.80 [facility] Comment on above: Performed By: #### U RCX #### [facility] [address] [place] [address] Dr. Marvin Reis MONOM% 3.0 % Normal 1.7-12.0 [facility] Comment on above: Performed By: #### U RCX #### [facility] [address] [place] [address] Dr. Marvin Reis MPV 10.5 fL Normal 9.5-13.5 [facility] Comment on above: Performed By: #### U RCX #### [facility] [address] [place] [address] Dr. Marvin Reis MYELOCYTE # Normal [facility] Comment on above: Performed By: #### U RCX #### [facility] [address] [place] [address] Dr. Marvin Reis MYELOCYTE % Normal [facility] Comment on above: Performed By: #### U RCX #### [facility] [address] [address] [address] Marvin Reis NRBC Normal [facility] Comment on above: Performed By: #### U RCX #### [facility] [address] [address] [address] Marvin Reis PLT 96 103/ul Critically low 150-450 [facility] Comment on above: Performed By: #### U RCX #### [facility] [address] [address] [address] Marvin Reis RBC 4.01 106/ul Critically low 4.70-6.10 [facility] Comment on above: Performed By: #### U RCX #### [facility] [address] [address] [address] Marvin Reis RDW 15.8 % Critically high 11.0-15.0 [facility] Comment on above: Performed By: #### U RCX #### [facility] [address] [address] [address] Marvin Reis SEG # 12.00 103/ul Critically high 1.40-6.50 [facility] Comment on above: Performed By: #### U RCX #### [facility] [address] [address] [address] Marvin Reis SEG % 93.0 % Critically high 43.0-75.0 [facility] Comment on above: Performed By: #### U RCX #### [facility] [address] [address] [address] Marvin Reis WBC 12.9 103/ul Critically high 4.0-11.0 [facility] Comment on above: Performed By: #### U RCX #### [facility] [address] [address] [address] Marvin Reis CRPon 09-24-2022 CRP 8.4 mg/dL Critically high <=1.0 [facility] Comment on above: Performed By: #### U AMIC #### [facility] [address] [address] [address] Marvin Reis LACTATE/LACTIC ACIDon 2021 Lactate [Moles/Vol] 2.2 mmol/L Critically high 0.4-1.9 [facility] Comment on above: Performed By: #### L ACT #### [facility] [address] [address] [address] Marvin Reis PROF 14(COMP METB)on 022 Albumin [Mass/Vol] 2.8 g/dL Critically low 3.4-5.0 [facility] Comment on above: Performed By: #### U AMIC #### [facility] [address] [place] [address] Dr. Marvin Reis Albumin/Globulin [Mass ratio] 0.7 {ratio} Normal [facility] Comment on above: Performed By: #### U AMIC #### [facility] [address] [place] [address] Dr. Marvin Reis ALP [Catalytic activity/Vol] 80 U/L Normal 46-116 [facility] Comment on above: Performed By: #### U AMIC #### [facility] [address] [place] [address] Dr. Marvin Reis ALT [Catalytic activity/Vol] 20 U/L Normal 16-63 [facility] Comment on above: Performed By: #### U AMIC #### [facility] [address] [place] [address] Dr. Marvin Reis Anion gap [Moles/Vol] 12.3 mmol/L Normal [facility] Comment on above: Performed By: #### U AMIC #### [facility] [address] [place] [address] Dr. Marvin Reis AST [Catalytic activity/Vol] 17 U/L Normal 15-37 [facility] Comment on above: Performed By: #### U AMIC #### [facility] [address] [place] [address] Dr. Marvin Reis Bilirubin [Mass/Vol] 1.0 mg/dL Normal 0.2-1.0 [facility] Comment on above: Performed By: #### U AMIC #### [facility] [address] [address] [address] Marvin Reis Calcium [Mass/Vol] 9.0 mg/dL Normal 8.5-10.1 [facility] Comment on above: Performed By: #### U AMIC #### [facility] [address] [address] [address] Marvin Reis Chloride [Moles/Vol] 106 mmol/L Normal 98-107 [facility] Comment on above: Performed By: #### U AMIC #### [facility] [address] [address] [address] Marvin Reis CO2 [Moles/Vol] 25.8 mmol/L Normal 21.0-32.0 [facility] Comment on above: Performed By: #### U AMIC #### [facility] [address] [place] [address] Dr. Marvin Reis Creatinine [Mass/Vol] 1.08 mg/dL Normal 0.70-1.30 [facility] Comment on above: Performed By: #### U AMIC #### [facility] [address] [address] [address] Marvin Reis EGFR-AF GREEK >60 Normal >=60 [facility] Comment on above: Performed By: #### U AMIC #### [facility] [address] [address] [address] Marvin Reis EGFR-NON AF GREEK >60 Normal >=60 [facility] Comment on above: Performed By: #### U AMIC #### [facility] [address] [address] [address] Marvin Reis Globulin (S) [Mass/Vol] 3.8 g/dL Normal [facility] Comment on above: Performed By: #### U AMIC #### [facility] [address] [address] [address] Marvin Reis Glucose [Mass/Vol] 117 mg/dL Critically high 74-106 [facility] Comment on above: Performed By: #### U AMIC #### [facility] [address] [address] [address] Marvin Reis Potassium [Moles/Vol] 4.1 mmol/L Normal 3.5-5.1 [facility] Comment on above: Performed By: #### U AMIC #### [facility] [address] [address] [address] Marvin Reis Protein [Mass/Vol] 6.6 g/dL Normal 6.4-8.2 [facility] Comment on above: Performed By: #### U AMIC #### [facility] [address] [address] [address] Marvin Reis Sodium [Moles/Vol] 140 mmol/L Normal 136-145 [facility] Comment on above: Performed By: #### U AMIC #### [facility] [address] [place] [address] Dr. Marvin Reis Urea nitrogen [Mass/Vol] 23.0 mg/dL Critically high 7.0-18.0 [facility] Comment on above: Performed By: #### U AMIC #### [facility] [address] [place] [address] Dr. Marvin Reis Urea nitrogen/Creatinine [Mass ratio] 21.3 mg/mg Normal [facility] Comment on above: Performed By: #### U AMIC #### [facility] [address] [place] [address] Dr. Marvin Reis SED RATE [facility] 2021 SED RATE 51 mm/hr Critically high <=20 [facility] Comment on above: Performed By: #### U RCX #### [facility] [address] [place] [address] Dr. Marvin Reis UA RANDOMon 09-24-2022 Bilirubin Ql (U) Negative Normal NEGATIVE [facility] Comment on above: Performed By: #### U AMIC #### [facility] [address] [place] [address] Dr. Marvin Reis Clarity (U) CLEAR Normal CLEAR [facility] Comment on above: Performed By: #### U AMIC #### [facility] [address] [place] [address] Dr. Marvin Reis Color (U) LT. YELLOW Normal YELLOW [facility] Comment on above: Performed By: #### U AMIC #### [facility] [address] [address] [address] Marvin Reis Glucose Ql (U) Negative Normal NEGATIVE [facility] Comment on above: Performed By: #### U AMIC #### [facility] [address] [address] [address] Marvin Reis Hemoglobin Ql (U) LARGE Abnormal NEGATIVE [facility] Comment on above: Performed By: #### U AMIC #### [facility] [address] [address] [address] Marvin Reis Ketones Ql (U) Negative Normal NEGATIVE [facility] Comment on above: Performed By: #### U AMIC #### [facility] [address] [place] [address] Dr. Marvin Reis LEUKOCYTES MODERATE Abnormal NEGATIVE [facility] Comment on above: Performed By: #### U AMIC #### [facility] [address] [place] [address] Dr. Marvin Reis Nitrite Ql (U) Negative Normal NEGATIVE [facility] Comment on above: Performed By: #### U AMIC #### [facility] [address] [address] [address] Marvin Reis pH (U) 5.5 [pH] Normal 5-9 [facility] Comment on above: Performed By: #### U AMIC #### [facility] [address] [address] [address] Marvin Reis SPEC GRAVITY 1.020 Normal 1.005-<=1.025 [facility] Comment on above: Performed By: #### U AMIC #### [facility] [address] [place] [address] Dr. Marvin Reis UA PROTEIN Negative Normal NEGATIVE/ TRACE [facility] Comment on above: Performed By: #### U AMIC #### [facility] [address] [place] [address] Dr. Marvin Reis Urobilinogen Qn (U) 0.2 {Robbie'U}/dL Normal 0.2 - 1. 0 [facility] Comment on above: Performed By: #### U AMIC #### [facility] [address] [place] [address] Dr. Marvin Reis CULTURE URINEon 09-13-2022 CULTURE [...] F Oxacillin >=4 R F Normal [facility] Comment on above: Performed By: #### U RCX #### [facility] [address] [place] [address] Dr. Marvin Reis UA RANDOM W/MICROSCOPICon BACTERIA TRACE Abnormal NONE SEEN [facility] Comment on above: Performed By: #### U AMIC #### [facility] [address] [place] [address] Dr. Marvin Reis Bilirubin Ql (U) Negative Normal NEGATIVE [facility] Comment on above: Performed By: #### U AMIC #### [facility] [address] [place] [address] Dr. Marvin Reis CAST NONE SEEN Normal NONE SEEN [facility] Comment on above: Performed By: #### U AMIC #### [facility] [address] [place] [address] Dr. Marvin Reis Clarity (U) CLEAR Normal CLEAR [facility] Comment on above: Performed By: #### U AMIC #### [facility] [address] [place] [address] Dr. Marvin Reis Color (U) LT. YELLOW Normal YELLOW [facility] Comment on above: Performed By: #### U AMIC #### [facility] [address] [address] [address] Marvin Reis Crystals LM Nom (Urine sed) NONE SEEN Normal NONE SEEN [facility] Comment on above: Performed By: #### U AMIC #### [facility] [address] [address] [address] Marvin Reis Epithelial cells LM Ql (Urine sed) FEW Abnormal NONE SEEN /RARE [facility] Comment on above: Performed By: #### U AMIC #### [facility] [address] [address] [address] Marvin Reis Glucose Ql (U) Negative Normal NEGATIVE [facility] Comment on above: Performed By: #### U AMIC #### [facility] [address] [address] [address] Marvin Reis Hemoglobin Ql (U) Negative Normal NEGATIVE [facility] Comment on above: Performed By: #### U AMIC #### [facility] [address] [address] [address] Marvin Reis Ketones Ql (U) Negative Normal NEGATIVE [facility] Comment on above: Performed By: #### U AMIC #### [facility] [address] [address] [address] Marvin Reis LEUKOCYTES LARGE Abnormal NEGATIVE [facility] Comment on above: Performed By: #### U AMIC #### [facility] [address] [address] [address] Marvin Reis MUCOUS NONE SEEN Normal NONE SEEN [facility] Comment on above: Performed By: #### U AMIC #### [facility] [address] [address] [address] Marvin Reis Nitrite Ql (U) Negative Normal NEGATIVE [facility] Comment on above: Performed By: #### U AMIC #### [facility] [address] [address] [address] Marvin Reis pH (U) 5.5 [pH] Normal 5-9 [facility] Comment on above: Performed By: #### U AMIC #### [facility] [address] [address] [address] Marvin Reis RBC 0-2 Normal 0-2 [facility] Comment on above: Performed By: #### U AMIC #### [facility] [address] [place] [address] Dr. Marvin Reis SPEC GRAVITY 1.025 Normal 1.005-<=1.025 [facility] Comment on above: Performed By: #### U AMIC #### [facility] [address] [place] [address] Dr. Marvin Reis UA PROTEIN Negative Normal NEGATIVE/ TRACE [facility] Comment on above: Performed By: #### U AMIC #### [facility] [address] [place] [address] Dr. Marvin Reis Urobilinogen Qn (U) 0.2 {Robbie'U}/dL Normal 0.2 - 1. 0 [facility] Comment on above: Performed By: #### U AMIC #### [facility] [address] [place] [address] Dr. Marvin Reis WBC 10-20 Abnormal NONE SEEN [facility] Comment on above: Performed By: #### U AMIC #### [facility] [address] [place] [address] Dr. Marvin Reis CULTURE URINEon 08-17-2022 CULTURE [...] Trimethoprim/Sulfamet hoxazole <=20 S F Normal [facility] Comment on above: Performed By: #### U RCX #### [facility] [address] [place] [address] Dr. Marvin Reis UA RANDOM W/MICROSCOPICon 10 -13-2022 BACTERIA MODERATE Abnormal NONE SEEN [facility] Comment on above: Performed By: #### U RCX #### [facility] [address] [address] [address] Marvin Reis Bilirubin Ql (U) Negative Normal NEGATIVE [facility] [facility] Comment on above: Performed By: #### U RCX #### [facility] [address] [place] [address] Dr. Marvin Reis CAST NONE SEEN Normal NONE SEEN [facility] Comment on above: Performed By: #### U RCX #### [facility] [address] [address] [address] Marvin Reis Clarity (U) SL CLOUDY Abnormal CLEAR [facility] Comment on above: Performed By: #### U RCX #### [facility] [address] [place] [address] Dr. Marvin Reis Color (U) LT. YELLOW Normal YELLOW [facility] Comment on above: Performed By: #### U RCX #### [facility] [address] [address] [address] Marvin Reis Crystals LM Nom (Urine sed) NONE SEEN Normal NONE SEEN [facility] Comment on above: Performed By: #### U RCX #### [facility] [address] [place] [address] Dr. Marvin Reis Epithelial cells LM Ql (Urine sed) RARE Normal NONE SEEN /RARE [facility] Comment on above: Performed By: #### U RCX #### [facility] [address] [place] [address] Dr. Marvin Reis Glucose Ql (U) Negative Normal NEGATIVE [facility] Comment on above: Performed By: #### U RCX #### [facility] [address] [address] [address] Marvin Reis Hemoglobin Ql (U) SMALL Abnormal NEGATIVE [facility] Comment on above: Performed By: #### U RCX #### [facility] [address] [place] [address] Dr. Marvin Reis Ketones Ql (U) Negative Normal NEGATIVE [facility] Comment on above: Performed By: #### U RCX #### [facility] [address] [address] [address] Marvin Reis LEUKOCYTES MODERATE Abnormal NEGATIVE [facility] Comment on above: Performed By: #### U RCX #### [facility] [address] [place] [address] Dr. Marvin Reis MUCOUS NONE SEEN Normal NONE SEEN [facility] Comment on above: Performed By: #### U RCX #### [facility] [address] [address] [address] Marvin Reis Nitrite Ql (U) Positive Abnormal NEGATIVE [facility] Comment on above: Performed By: #### U RCX #### [facility] [address] [place] [address] Dr. Marvin Reis pH (U) 6.0 [pH] Normal 5-9 [facility] Comment on above: Performed By: #### U RCX #### [facility] [address] [place] [address] Dr. Marvin Reis RBC 0-2 Normal 0-2 [facility] Comment on above: Performed By: #### U RCX #### [facility] [address] [address] [address] Marvin Reis SPEC GRAVITY 1.015 Normal 1.005-<=1.025 [facility] Comment on above: Performed By: #### U RCX #### [facility] [address] [place] [address] Dr. Marvin Reis UA PROTEIN Negative Normal NEGATIVE/ TRACE [facility] Comment on above: Performed By: #### U RCX #### [facility] [address] [place] [address] Dr. Marvin Reis Urobilinogen Qn (U) 0.2 {Robbie'U}/dL Normal 0.2 - 1. 0 [facility] Comment on above: Performed By: #### U RCX #### [facility] [address] [place] [address] Dr. Marvin Reis WBC 10-20 Abnormal NONE SEEN [facility] Comment on above: Performed By: #### U RCX #### [facility] [address] [place] [address] Dr. Marvin Reis CULTURE URINEon 08-02-2022 CULTURE [...] Trimethoprim/Sulfamet hoxazole <=20 S F Normal [facility] Comment on above: Performed By: #### U RCX #### [facility] [address] [place] [address] Dr. Marvin Reis UA RANDOM W/MICROSCOPICon BACTERIA MODERATE Abnormal NONE SEEN [facility] Comment on above: Performed By: #### U AMIC #### [facility] [address] [place] [address] Dr. Marvin Reis Bilirubin Ql (U) Negative Normal NEGATIVE [facility] Comment on above: Performed By: #### U AMIC #### [facility] [address] [place] [address] Dr. Marvin Reis CAST NONE SEEN Normal NONE SEEN [facility] Comment on above: Performed By: #### U AMIC #### [facility] [address] [place] [address] Dr. Marvin Reis Clarity (U) SL CLOUDY Abnormal CLEAR [facility] Comment on above: Performed By: #### U AMIC #### [facility] [address] [place] [address] Dr. Marvin Reis Color (U) LT. YELLOW Normal YELLOW [facility] Comment on above: Performed By: #### U AMIC #### [facility] [address] [place] [address] Dr. Marvin Reis Crystals LM Nom (Urine sed) NONE SEEN Normal NONE SEEN [facility] Comment on above: Performed By: #### U AMIC #### [facility] [address] [address] [address] Marvin Reis Epithelial cells LM Ql (Urine sed) NONE SEEN Normal NONE SEEN /RARE [facility] Comment on above: Performed By: #### U AMIC #### [facility] [address] [address] [address] Marvin Reis Glucose Ql (U) Negative Normal NEGATIVE [facility] Comment on above: Performed By: #### U AMIC #### [facility] [address] [address] [address] Marvin Reis Hemoglobin Ql (U) TRACE-INTACT Abnormal NEGATIVE [facility] Comment on above: Performed By: #### U AMIC #### [facility] [address] [place] [address] Dr. Marvin Reis Ketones Ql (U) Negative Normal NEGATIVE [facility] Comment on above: Performed By: #### U AMIC #### [facility] [address] [address] [address] Marvin Reis LEUKOCYTES MODERATE Abnormal NEGATIVE [facility] Comment on above: Performed By: #### U AMIC #### [facility] [address] [address] [address] Marvin Reis MUCOUS NONE SEEN Normal NONE SEEN [facility] Comment on above: Performed By: #### U AMIC #### [facility] [address] [address] [address] Marvin Reis Nitrite Ql (U) Positive Abnormal NEGATIVE [facility] Comment on above: Performed By: #### U AMIC #### [facility] [address] [address] [address] Marvin Reis pH (U) 6.0 [pH] Normal 5-9 [facility] Comment on above: Performed By: #### U AMIC #### [facility] [address] [address] [address] Marvin Reis RBC 0-2 Normal 0-2 [facility] Comment on above: Performed By: #### U AMIC #### [facility] [address] [place] [address] Dr. Marvin Reis SPEC GRAVITY 1.015 Normal 1.005-<=1.025 [facility] Comment on above: Performed By: #### U AMIC #### [facility] [address] [place] [address] Dr. Marvin Reis UA PROTEIN Negative Normal NEGATIVE/ TRACE [facility] Comment on above: Performed By: #### U AMIC #### [facility] [address] [place] [address] Dr. Marvin Reis Urobilinogen Qn (U) 0.2 {Robbie'U}/dL Normal 0.2 - 1. 0 [facility] Comment on above: Performed By: #### U AMIC #### [facility] [address] [place] [address] Dr. Marvin Reis WBC 20-50 Abnormal NONE SEEN [facility] Comment on above: Performed By: #### U AMIC #### [facility] [address] [place] [address] Dr. Marvin Reis CULTURE URINEon 06-27-2022 CULTURE [...] F Oxacillin >=4 R F Normal [facility] Comment on above: Performed By: #### U AMIC #### [facility] [address] [place] [address] Dr. Marvin Reis UA RANDOM W/MICROSCOPICon BACTERIA LARGE Abnormal NONE SEEN [facility] Comment on above: Performed By: #### U RCX #### [facility] [address] [address] [address] Marvin Reis Bilirubin Ql (U) Negative Normal NEGATIVE [facility] Comment on above: Performed By: #### U RCX #### [facility] [address] [address] [address] Marvin Reis CAST NONE SEEN Normal NONE SEEN [facility] Comment on above: Performed By: #### U RCX #### [facility] [address] [address] [address] Marvin Reis Clarity (U) CLEAR Normal CLEAR [facility] Comment on above: Performed By: #### U RCX #### [facility] [address] [place] [address] Dr. Marvin Reis Color (U) LT. YELLOW Normal YELLOW [facility] Comment on above: Performed By: #### U RCX #### [facility] [address] [place] [address] Dr. Marvin Reis Crystals LM Nom (Urine sed) NONE SEEN Normal NONE SEEN [facility] Comment on above: Performed By: #### U RCX #### [facility] [address] [address] [address] Marvin Reis Epithelial cells LM Ql (Urine sed) FEW Abnormal NONE SEEN /RARE [facility] Comment on above: Performed By: #### U RCX #### [facility] [address] [place] [address] Dr. Marvin Reis Glucose Ql (U) Negative Normal NEGATIVE [facility] Comment on above: Performed By: #### U RCX #### [facility] [address] [address] [address] Marvin Reis Hemoglobin Ql (U) TRACE-INTACT Abnormal NEGATIVE [facility] Comment on above: Performed By: #### U RCX #### [facility] [address] [place] [address] Dr. Marvin Reis Ketones Ql (U) Negative Normal NEGATIVE [facility] Comment on above: Performed By: #### U RCX #### [facility] [address] [address] [address] Marvin Reis LEUKOCYTES LARGE Abnormal NEGATIVE [facility] Comment on above: Performed By: #### U RCX #### [facility] [address] [place] [address] Dr. Marvin Reis MUCOUS NONE SEEN Normal NONE SEEN [facility] Comment on above: Performed By: #### U RCX #### [facility] [address] [place] [address] Dr. Marvin Reis Nitrite Ql (U) Positive Abnormal NEGATIVE [facility] Comment on above: Performed By: #### U RCX #### [facility] [address] [place] [address] Dr. Marvin Reis pH (U) 5.5 [pH] Normal 5-9 [facility] Comment on above: Performed By: #### U RCX #### [facility] [address] [place] [address] Dr. Marvin Reis RBC 2-5 Abnormal 0-2 [facility] Comment on above: Performed By: #### U RCX #### [facility] [address] [place] [address] Dr. Marvin Reis SPEC GRAVITY 1.015 Normal 1.005-<=1.025 [facility] Comment on above: Performed By: #### U RCX #### [facility] [address] [place] [address] Dr. Marvin Reis UA PROTEIN Negative Normal NEGATIVE/ TRACE [facility] Comment on above: Performed By: #### U RCX #### [facility] [address] [place] [address] Dr. Marvin Reis Urobilinogen Qn (U) 0.2 {Robbie'U}/dL Normal 0.2 - 1. 0 [facility] Comment on above: Performed By: #### U RCX #### [facility] [address] [place] [address] Dr. Marvin Reis WBC (U) [#/Vol] /uL Abnormal NONE SEEN [facility] Comment on above: Performed By: #### U RCX #### [facility] [address] [place] [address] Dr. Marvin Reis CULTURE URINEon 05-27-2022 CULTURE [...] F Oxacillin >=4 R F Normal [facility] Comment on above: Performed By: #### U RCX #### [facility] [address] [place] [address] Dr. Marvin Reis UA RANDOM W/MICROSCOPICon BACTERIA MODERATE Abnormal NONE SEEN [facility] Comment on above: Performed By: #### U RCX #### [facility] [address] [place] [address] Dr. Marvin Reis Bilirubin Ql (U) Negative Normal NEGATIVE [facility] Comment on above: Performed By: #### U RCX #### [facility] [address] [place] [address] Dr. Marvin Reis CAST NONE SEEN Normal NONE SEEN [facility] Comment on above: Performed By: #### U RCX #### [facility] [address] [place] [address] Dr. Marvin Reis Clarity (U) SL CLOUDY Abnormal CLEAR [facility] Comment on above: Performed By: #### U RCX #### [facility] [address] [place] [address] Dr. Marvin Reis Color (U) LT. YELLOW Normal YELLOW [facility] Comment on above: Performed By: #### U RCX #### [facility] [address] [place] [address] Dr. Marvin Reis Crystals LM Nom (Urine sed) NONE SEEN Normal NONE SEEN [facility] Comment on above: Performed By: #### U RCX #### [facility] [address] [address] [address] Marvin Reis Epithelial cells LM Ql (Urine sed) FEW Abnormal NONE SEEN /RARE [facility] Comment on above: Performed By: #### U RCX #### [facility] [address] [address] [address] Marvin Reis Glucose Ql (U) Negative Normal NEGATIVE [facility] Comment on above: Performed By: #### U RCX #### [facility] [address] [address] [address] Marvin Reis Hemoglobin Ql (U) SMALL Abnormal NEGATIVE [facility] Comment on above: Performed By: #### U RCX #### [facility] [address] [place] [address] Dr. Marvin Reis Ketones Ql (U) Negative Normal NEGATIVE [facility] Comment on above: Performed By: #### U RCX #### [facility] [address] [address] [address] Marvin Reis LEUKOCYTES LARGE Abnormal NEGATIVE [facility] Comment on above: Performed By: #### U RCX #### [facility] [address] [address] [address] Marvin Reis MUCOUS TRACE Abnormal NONE SEEN [facility] Comment on above: Performed By: #### U RCX #### [facility] [address] [address] [address] Marvin Reis Nitrite Ql (U) Negative Normal NEGATIVE [facility] Comment on above: Performed By: #### U RCX #### [facility] [address] [address] [address] Marvin Reis pH (U) 6.0 [pH] Normal 5-9 [facility] Comment on above: Performed By: #### U RCX #### [facility] [address] [address] [address] Marvin Reis RBC 2-5 Abnormal 0-2 [facility] Comment on above: Performed By: #### U RCX #### [facility] [address] [address] [address] Marvin Reis SPEC GRAVITY 1.010 Normal 1.005-<=1.025 [facility] Comment on above: Performed By: #### U RCX #### [facility] [address] [address] [address] Marvin Reis UA PROTEIN Negative Normal NEGATIVE/ TRACE [facility] Comment on above: Performed By: #### U RCX #### [facility] [address] [address] [address] Marvin Reis Urobilinogen Qn (U) 0.2 {Robbie'U}/dL Normal 0.2 - 1. 0 [facility] Comment on above: Performed By: #### U RCX #### [facility] [address] [place] [address] Dr. Marvin Reis WBC 50-75 Abnormal NONE SEEN [facility] Comment on above: Performed By: #### U RCX #### [facility] [address] [place] [address] Dr. Marvin Reis CULTURE URINEon 04-18-2022 CULTURE [...] F Oxacillin >=4 R F Normal [facility] Comment on above: Performed By: #### U RCX #### [facility] [address] [address] [address] Marvin Reis UA RANDOM W/MICROSCOPICon BACTERIA TRACE Abnormal NONE SEEN [facility] Comment on above: Performed By: #### U AMIC #### [facility] [address] [address] [address] Marvin Reis Bilirubin Ql (U) Negative Normal NEGATIVE [facility] Comment on above: Performed By: #### U AMIC #### [facility] [address] [address] [address] Marvin Reis CAST NONE SEEN Normal NONE SEEN [facility] Comment on above: Performed By: #### U AMIC #### [facility] [address] [address] [address] Marvin Reis Clarity (U) CLEAR Normal CLEAR [facility] Comment on above: Performed By: #### U AMIC #### [facility] [address] [address] [address] Marvin Reis Color (U) LT. YELLOW Normal YELLOW [facility] Comment on above: Performed By: #### U AMIC #### [facility] [address] [address] [address] Marvin Reis Crystals LM Nom (Urine sed) NONE SEEN Normal NONE SEEN [facility] Comment on above: Performed By: #### U AMIC #### [facility] [address] [address] [address] Marvin Reis Epithelial cells LM Ql (Urine sed) FEW Abnormal NONE SEEN /RARE [facility] Comment on above: Performed By: #### U AMIC #### [facility] [address] [address] [address] Marvin Reis Glucose Ql (U) Negative Normal NEGATIVE [facility] Comment on above: Performed By: #### U AMIC #### [facility] [address] [address] [address] Marvin Reis Hemoglobin Ql (U) TRACE-INTACT Abnormal NEGATIVE [facility] Comment on above: Performed By: #### U AMIC #### [facility] [address] [address] [address] Marvin Reis Ketones Ql (U) Negative Normal NEGATIVE [facility] Comment on above: Performed By: #### U AMIC #### [facility] [address] [place] [address] Dr. Marvin Reis LEUKOCYTES SMALL Abnormal NEGATIVE [facility] Comment on above: Performed By: #### U AMIC #### [facility] [address] [place] [address] Dr. Marvin Reis MUCOUS NONE SEEN Normal NONE SEEN [facility] Comment on above: Performed By: #### U AMIC #### [facility] [address] [place] [address] Dr. Marvin Reis Nitrite Ql (U) Negative Normal NEGATIVE [facility] Comment on above: Performed By: #### U AMIC #### [facility] [address] [place] [address] Dr. Marvin Reis pH (U) 6.0 [pH] Normal 5-9 [facility] Comment on above: Performed By: #### U AMIC #### [facility] [address] [place] [address] Dr. Marvin Reis RBC 0-2 Normal 0-2 [facility] Comment on above: Performed By: #### U AMIC #### [facility] [address] [place] [address] Dr. Marvin Reis SPEC GRAVITY 1.010 Normal 1.005-<=1.025 [facility] Comment on above: Performed By: #### U AMIC #### [facility] [address] [place] [address] Dr. Marvin Reis UA PROTEIN Negative Normal NEGATIVE/ TRACE [facility] Comment on above: Performed By: #### U AMIC #### [facility] [address] [place] [address] Dr. Marvin Reis Urobilinogen Qn (U) 0.2 {Robbie'U}/dL Normal 0.2 - 1. 0 [facility] Comment on above: Performed By: #### U AMIC #### [facility] [address] [place] [address] Dr. Marvin Reis WBC 2-5 Abnormal NONE SEEN [facility] Comment on above: Performed By: #### U AMIC #### [facility] [address] [place] [address] Dr. Marvin Reis CULTURE URINEon 03-27-2022 CULTURE [...] Trimethoprim/Sulfamet hoxazole >=320 R F Normal [facility] Comment on above: Performed By: #### U RCX #### [facility] [address] [place] [address] Dr. Marvin Reis UA RANDOM W/MICROSCOPICon BACTERIA TRACE Abnormal NONE SEEN [facility] Comment on above: Performed By: #### U RCX #### [facility] [address] [place] [address] Dr. Marvin Reis Bilirubin Ql (U) Negative Normal NEGATIVE [facility] Comment on above: Performed By: #### U RCX #### [facility] [address] [place] [address] Dr. Marvin Reis CAST NONE SEEN Normal NONE SEEN [facility] Comment on above: Performed By: #### U RCX #### [facility] [address] [place] [address] Dr. Marvin Reis Clarity (U) CLEAR Normal CLEAR [facility] Comment on above: Performed By: #### U RCX #### [facility] [address] [address] [address] Marvin Reis Color (U) LT. YELLOW Normal YELLOW [facility] Comment on above: Performed By: #### U RCX #### [facility] [address] [place] [address] Dr. Marvin Reis Crystals LM Nom (Urine sed) NONE SEEN Normal NONE SEEN [facility] Comment on above: Performed By: #### U RCX #### [facility] [address] [address] [address] Marvin Reis Epithelial cells LM Ql (Urine sed) FEW Abnormal NONE SEEN /RARE [facility] Comment on above: Performed By: #### U RCX #### [facility] [address] [place] [address] Dr. Marvin Reis Glucose Ql (U) Negative Normal NEGATIVE [facility] Comment on above: Performed By: #### U RCX #### [facility] [address] [place] [address] Dr. Marvin Reis Hemoglobin Ql (U) SMALL Abnormal NEGATIVE [facility] Comment on above: Performed By: #### U RCX #### [facility] [address] [place] [address] Dr. Marvin Reis Ketones Ql (U) Negative Normal NEGATIVE [facility] Comment on above: Performed By: #### U RCX #### [facility] [address] [place] [address] Dr. Marvin Reis LEUKOCYTES MODERATE Abnormal NEGATIVE [facility] Comment on above: Performed By: #### U RCX #### [facility] [address] [place] [address] Dr. Marvin Reis MUCOUS NONE SEEN Normal NONE SEEN [facility] Comment on above: Performed By: #### U RCX #### [facility] [address] [place] [address] Dr. Marvin Reis Nitrite Ql (U) Negative Normal NEGATIVE [facility] Comment on above: Performed By: #### U RCX #### [facility] [address] [place] [address] Dr. Marvin Reis pH (U) 5.5 [pH] Normal 5-9 [facility] Comment on above: Performed By: #### U RCX #### [facility] [address] [place] [address] Dr. Marvin Reis RBC NONE SEEN Abnormal 0-2 [facility] Comment on above: Performed By: #### U RCX #### [facility] [address] [place] [address] Dr. Marvin Reis SPEC GRAVITY 1.015 Normal 1.005-<=1.025 [facility] Comment on above: Performed By: #### U RCX #### [facility] [address] [place] [address] Dr. Marvin Reis UA PROTEIN Negative Normal NEGATIVE/ TRACE [facility] Comment on above: Performed By: #### U RCX #### [facility] [address] [place] [address] Dr. Marvin Reis Urobilinogen Qn (U) 0.2 {Robbie'U}/dL Normal 0.2 - 1. 0 [facility] Comment on above: Performed By: #### U RCX #### [facility] [address] [place] [address] Dr. Marvin Reis WBC 20-50 Abnormal NONE SEEN [facility] Comment on above: Performed By: #### U RCX #### [facility] [address] [place] [address] Dr. Marvin Reis YEAST PRESENT Abnormal NONE SEEN [facility] Comment on above: Performed By: #### U RCX #### [facility] [address] [place] [address] Dr. Marvin Reis CULTURE URINEon 03-18-2022 CULTURE URINE Culture Observations : No growth Normal [facility] Comment on above: Performed By: #### U RCX #### [facility] [address] [place] [address] Dr. Marvin Reis UA RANDOM W/MICROSCOPICon BACTERIA NONE SEEN Normal NONE SEEN [facility] Comment on above: Performed By: #### U AMIC #### [facility] [address] [address] [address] Marvin Reis Bilirubin Ql (U) Negative Normal NEGATIVE [facility] Comment on above: Performed By: #### U AMIC #### [facility] [address] [address] [address] Marvin Reis CAST NONE SEEN Normal NONE SEEN [facility] Comment on above: Performed By: #### U AMIC #### [facility] [address] [place] [address] Dr. Marvin Reis Clarity (U) CLOUDY Abnormal CLEAR [facility] Comment on above: Performed By: #### U AMIC #### [facility] [address] [address] [address] Marvin Reis Color (U) LT. YELLOW Normal YELLOW [facility] Comment on above: Performed By: #### U AMIC #### [facility] [address] [place] [address] Dr. Marvin Reis Crystals LM Nom (Urine sed) NONE SEEN Normal NONE SEEN [facility] Comment on above: Performed By: #### U AMIC #### [facility] [address] [place] [address] Dr. Marvin Reis Epithelial cells LM Ql (Urine sed) RARE Normal NONE SEEN /RARE [facility] Comment on above: Performed By: #### U AMIC #### [facility] [address] [place] [address] Dr. Marvin Reis Glucose Ql (U) Negative Normal NEGATIVE [facility] Comment on above: Performed By: #### U AMIC #### [facility] [address] [place] [address] Dr. Marvin Reis Hemoglobin Ql (U) TRACE-INTACT Abnormal NEGATIVE [facility] Comment on above: Performed By: #### U AMIC #### [facility] [address] [place] [address] Dr. Marvin Reis Ketones Ql (U) Negative Normal NEGATIVE [facility] Comment on above: Performed By: #### U AMIC #### [facility] [address] [place] [address] Dr. Marvin Reis LEUKOCYTES MODERATE Abnormal NEGATIVE [facility] Comment on above: Performed By: #### U AMIC #### [facility] [address] [address] [address] Marvin Reis MUCOUS NONE SEEN Normal NONE SEEN [facility] Comment on above: Performed By: #### U AMIC #### [facility] [address] [address] [address] Marvin Reis Nitrite Ql (U) Negative Normal NEGATIVE [facility] Comment on above: Performed By: #### U AMIC #### [facility] [address] [address] [address] Marvin Reis pH (U) 6.0 [pH] Normal 5-9 [facility] Comment on above: Performed By: #### U AMIC #### [facility] [address] [place] [address] Dr. Marvin Reis RBC NONE SEEN Abnormal 0-2 [facility] Comment on above: Performed By: #### U AMIC #### [facility] [address] [place] [address] Dr. Marvin Reis SPEC GRAVITY 1.015 Normal 1.005-<=1.025 [facility] Comment on above: Performed By: #### U AMIC #### [facility] [address] [address] [address] Marvin Reis UA PROTEIN Negative Normal NEGATIVE/ TRACE [facility] Comment on above: Performed By: #### U AMIC #### [facility] [address] [address] [address] Marvin Reis Urobilinogen Qn (U) 0.2 {Robbie'U}/dL Normal 0.2 - 1. 0 [facility] Comment on above: Performed By: #### U AMIC #### [facility] [address] [place] [address] Dr. Marvin Reis WBC 10-20 Abnormal NONE SEEN [facility] Comment on above: Performed By: #### U AMIC #### [facility] [address] [place] [address] Dr. Marvin Reis Coding Summary.on 06-21-2020 Coding Summary. CODING DATE: 06/21/2020 FINAL [facility] STATUS: PAYOR: Worker's Compensation ADMIT [...] Hopper CphT Date Saved: 06/21/2020 12:01 pm [facility] PT - Assessmentson 0 PT - Assessments [id number]# 1.00CD:127 [facility] PT - Orderson 06-20-2020 PT - Orders [id number]# 1.00CD:127 [facility] PT - Workers Compon 06-20-20 20 PT - Workers Comp [id number]# 1.00CD:127 [facility] Encounters Encounter Date Encounter Type Care Provider Facility Start: 03-10-2023 End: 03-11-2023 [facility] Start: 03-03-2023 End: 03-03-[address] LAWANDA [...] Facility:[facility] Payers Date Payer Category Payer Medicare [id number] 1961 Unknown [id number] 1960 Unknown [id number] 2.16.84 0.1.784502.3.579.2.593 1960 Unknown [id number] 2.16.84 0.1.016016.3.579.2.593 1960 Unknown [id number] 2.16.84 0.1.341585.3.579.2.593 1960 Unknown [id number] 2.16.84 0.1.471420.3.579.2.593 1958 Unknown [id number] 2.16.84 0.1.766776.3.579.2.593 1960 Unknown [id number] 2.16.84 0.1.738923.3.579.2.593 1958 Unknown [id number] 2.16.84 0.1.216976.3.579.2.593 1958 Unknown [id number] 2.16.84 0.1.955237.3.579.2.593 1958 Unknown [id number] 2.16.84 0.1.740224.3.579.2.593 1958 Unknown [id number] 2.16.84 0.1.733659.3.579.2.593 1958 Unknown [id number] 2.16.84 0.1.632284.3.579.2.593 1958 Unknown [id number] 2.16.84 0.1.235658.3.579.2.593 1958 Unknown [id number] 2.16.84 0.1.436834.3.579.2.593 1958 Unknown [id number] 2.16.84 0.1.376223.3.579.2.593 1958 Unknown [id number] 2.16.84 0.1.712407.3.579.2.593 1958 Unknown [id number] 2.16.84 0.1.985180.3.579.2.593 1958 Unknown [id number] 2.16.84 0.1.520860.3.579.2.593 1958 Unknown [id number] 2.16.84 0.1.267404.3.579.2.593 1960 Unknown [id number] 2.16.84 0.1.975981.3.579.2.593 Summary Purpose Family History No Family History [...] and content) DATE CREATED AUTHOR 09/19/2020 [facility] DATE CREATED AUTHOR AUTHOR'S ORGANIZ ATION 03/06/2023 [facility] DATE CREATED AUTHOR AUTHOR'S ORGANIZ ATION 03/11/2023 [facility] DATE CREATED AUTHOR AUTHOR'S ORGANIZ ATION 06/07/2023 [facility] FOR RECORDS PERTAINING TO PATIENTS [...] BE BASED ON THE PRIMARY CLINICAL RECORDS. [employer] [facility]. provides no warranty or guarantee of the accuracy or completeness of information in this document.
[2024-07-12 11:00] LABS: WBC Urine >100 #/HPF (NONE SEEN)
[2024-07-12 11:01] LABS: Bacteria Urine LARGE #/HPF (NONE SEEN); Mucus Urine NONE SEEN (NONE SEEN); Squamous Epithelial Cell Urine RARE #/LPF (NONE/RARE)
[2024-07-12 11:02] LABS: Urine Culture Indicated ALREADY ORDERED
== END 2024-07-12 10:35 | disposition home or self-care (01) ==
LOC: LAB 10:34
PROVIDERS: PCP Family Medicine; Visit Provider Family Medicine
DX: N39.0 Urinary tract infection, site not specified (principal)
CPT/HCPCS: 81001; 87086

== ENCOUNTER 2024-08-12 14:54 | Outpatient (OUT) | payer SELFPAY ==
--- NOTE | 2024-08-12 15:00 | US_ITS ---
The [address] [address] Patient Name: JESSICA PIZARRO MRN: [id number] date: 1960 Sex: M Assigned Patient Location: Current Patient Location: [facility] Accession/Order Number: [id number] Exam Date: 08/12/2024 15:01 Report Date: 08/13/2024 10:08 At the request of: LAWANDA GROVE Procedure: US renal BI EXAMINATION: US renal BI HISTORY: Abnormal Renal Function COMPARISON: No relevant comparison available. TECHNIQUE: Ultrasound examination was performed of the bladder. FINDINGS: Right Kidney: Normal in size. Lobular contour. Diffuse increase in cortical echotexture. The cortex measures 1.0 cm. No solid cortical mass, hydronephrosis or obstructing nephrolithiasis. Height: 5.49 cm Length: 10.48 cm Width: 6.85 cm Left Kidney: Normal in size. Lobular contour. Diffuse increase in cortical echotexture. The cortex measures 0.9 cm. No solid cortical mass, hydronephrosis or obstructing nephrolithiasis. Multiple areas of anechoic echogenicity measuring up to 4.1 cm, simple cyst. Height: 6.13 cm Length: 11.29 cm Width: 6.43 cm Urinary bladder volume 145 mL. Suspected layering sludge Heterogeneous prostate with calcifications US/US renal BI IMPRESSION: Bilateral renal cortical atrophy and increased echotexture consistent with medical renal disease Small amount of sludge in the urinary bladder Electronically authenticated by: MAGY COMER Date: 08/13/2024 10:08
--- OUTSIDE RECORDS SUMMARY | 2024-08-12 15:17 | XMS_ITS | CCD ---
Author Organization [facility] Care Team Providers Care Incident Handler Name Role Phone HOY ., DR WEBBER [...] Unavailable HOY ., DR WEBBER Admherman Unavailable BARNET, DR MAGY [employer] Unavailable HOY ., [...] source) ceFAZolin Drug Allergy 04-21-20 13 [facility] Repository (1 source) Cilastatin / Imipenem Drug Allergy 04-21-20 13 [facility] Repository (1 source) Readi-Cat Drug allergy (disorder) 04-21-20 13 [facility] Repository (1 source) ceFAZolin; Translations: [CEFAZOLIN] Drug Allergy 12-01-19 13 [facility] Repository (1 source) Cephalexin; Translations: [CEPHALEXIN MONOHYDRATE] Drug Allergy 08-03-20 09 [facility] Repository (1 source) Promazine; Translations: [PROMAZINE] Drug Allergy 12-01-19 13 [facility] Repository (1 source) Sulfamethoxazole / Trimethoprim; Translations: [SULFAMETHOXAZOLE-TR IMETHOPRIM] Drug Allergy 03-10-20 23 [facility] Repository (1 source) IODINATED CONTRAST MEDIA; Translations: [IODINATED CONTRAST MEDIA] Propensity to adverse reactions to drug (disorder) 12-01-19 13 [facility] Repository Problems Active Problems Problem Classification [...] RESISTANT TO ALL B-LACTAM DRUGS. PERFORMED BY: [id number] PATHOLOGIST JAVASCRIPT PROGRAMMER MARLA VEGA M.D. [facility] Comment on above: Performed By: #### A MAI LAYNE #### [place] [id number] [place] Gram Stainon 06-03-2023 Microscopic observation Gram stain Nom (Unsp spec) Gram Stain Result No Bacteria Seen PERFORMED BY: [id number] PATHOLOGIST JAVASCRIPT PROGRAMMER MARLA VEGA M.D. [facility] Comment on above: Performed By: #### A MAI LAYNE #### [place] [id number] [place] CULTURE URINEon 03-06-2023 CULTURE URINE Isolate [...] F Levofloxacin 2 S F Normal [facility] Comment on above: Performed By: #### U RCX #### [facility] [address] [place] [address] Dr. Marvin Reis UA RANDOM W/MICROSCOPICon BACTERIA SMALL Abnormal NONE SEEN [facility] Comment on above: Performed By: #### U AMIC #### [facility] [address] [place] [address] Dr. Marvin Reis Bilirubin Ql (U) Negative Normal NEGATIVE [facility] Comment on above: Performed By: #### U AMIC #### [facility] [address] [place] [address] Dr. Marvin Reis CAST NONE SEEN Normal NONE SEEN [facility] Comment on above: Performed By: #### U AMIC #### [facility] [address] [place] [address] Dr. Marvin Reis Clarity (U) CLEAR Normal CLEAR [facility] Comment on above: Performed By: #### U AMIC #### [facility] [address] [place] [address] Dr. Marvin Reis Color (U) LT. YELLOW Normal YELLOW [facility] Comment on above: Performed By: #### U AMIC #### [facility] [address] [address] [address] Marvin Reis Crystals LM Nom (Urine sed) NONE SEEN Normal NONE SEEN [facility] Comment on above: Performed By: #### U AMIC #### [facility] [address] [place] [address] Dr. Marvin Reis Epithelial cells LM Ql (Urine sed) RARE Normal NONE SEEN /RARE [facility] Comment on above: Performed By: #### U AMIC #### [facility] [address] [address] [address] Marvin Reis Glucose Ql (U) Negative Normal NEGATIVE [facility] Comment on above: Performed By: #### U AMIC #### [facility] [address] [place] [address] Dr. Marvin Reis Hemoglobin Ql (U) Negative Normal NEGATIVE The [facility] Comment on above: Performed By: #### U AMIC #### [facility] [address] [place] [address] Dr. Marvin Reis Ketones Ql (U) Negative Normal NEGATIVE [facility] Comment on above: Performed By: #### U AMIC #### [facility] [address] [place] [address] Dr. Marvin Reis LEUKOCYTES SMALL Abnormal NEGATIVE [facility] Comment on above: Performed By: #### U AMIC #### [facility] [address] [place] [address] Dr. Marvin Reis MUCOUS NONE SEEN Normal NONE SEEN [facility] Comment on above: Performed By: #### U AMIC #### [facility] [address] [place] [address] Dr. Marvin Reis Nitrite Ql (U) Negative Normal NEGATIVE [facility] Comment on above: Performed By: #### U AMIC #### [facility] [address] [place] [address] Dr. Marvin Reis pH (U) 6.0 [pH] Normal 5-9 [facility] Comment on above: Performed By: #### U AMIC #### [facility] [address] [place] [address] Dr. Marvin Reis RBC 0-2 Normal 0-2 [facility] Comment on above: Performed By: #### U AMIC #### [facility] [address] [place] [address] Dr. Marvin Reis SPEC GRAVITY 1.010 Normal 1.005-<=1.025 [facility] Comment on above: Performed By: #### U AMIC #### [facility] [address] [address] [address] Marvin Reis UA PROTEIN Negative Normal NEGATIVE/ TRACE [facility] Comment on above: Performed By: #### U AMIC #### [facility] [address] [place] [address] Dr. Marvin Reis Urobilinogen Qn (U) 0.2 {Robbie'U}/dL Normal 0.2 - 1. 0 [facility] Comment on above: Performed By: #### U AMIC #### [facility] [address] [place] [address] Dr. Marvin Reis WBC 5-10 Abnormal NONE SEEN [facility] Comment on above: Performed By: #### U AMIC #### [facility] [address] [place] [address] Dr. Marvin Reis CULTURE URINEon 02-13-2023 CULTURE [...] F Levofloxacin 2 S F Normal [facility] Comment on above: Performed By: #### U RCX #### [facility] [address] [place] [address] Dr. Marvin Reis UA RANDOM W/MICROSCOPICon BACTERIA MODERATE Abnormal NONE SEEN [facility] Comment on above: Performed By: #### U AMIC #### [facility] [address] [place] [address] Dr. Marvin Reis Bilirubin Ql (U) Negative Normal NEGATIVE [facility] Comment on above: Performed By: #### U AMIC #### [facility] [address] [place] [address] Dr. Marvin Reis CAST NONE SEEN Normal NONE SEEN [facility] Comment on above: Performed By: #### U AMIC #### [facility] [address] [place] [address] Dr. Marvin Reis Clarity (U) CLEAR Normal CLEAR [facility] Comment on above: Performed By: #### U AMIC #### [facility] [address] [place] [address] Dr. Marvin Reis Color (U) LT. YELLOW Normal YELLOW [facility] Comment on above: Performed By: #### U AMIC #### [facility] [address] [place] [address] Dr. Marvin Reis Crystals LM Nom (Urine sed) NONE SEEN Normal NONE SEEN [facility] Comment on above: Performed By: #### U AMIC #### [facility] [address] [place] [address] Dr. Marvin Reis Epithelial cells LM Ql (Urine sed) MODERATE Abnormal NONE SEEN /RARE [facility] Comment on above: Performed By: #### U AMIC #### [facility] [address] [place] [address] Dr. Marvin Reis Glucose Ql (U) Negative Normal NEGATIVE [facility] Comment on above: Performed By: #### U AMIC #### [facility] [address] [place] [address] Dr. Marvin Reis Hemoglobin Ql (U) SMALL Abnormal NEGATIVE The [facility] Comment on above: Performed By: #### U AMIC #### [facility] [address] [address] [address] Marvin Reis Ketones Ql (U) Negative Normal NEGATIVE [facility] Comment on above: Performed By: #### U AMIC #### [facility] [address] [address] [address] Marvin Reis LEUKOCYTES LARGE Abnormal NEGATIVE [facility] Comment on above: Performed By: #### U AMIC #### [facility] [address] [address] [address] Marvin Reis MUCOUS NONE SEEN Normal NONE SEEN [facility] Comment on above: Performed By: #### U AMIC #### [facility] [address] [place] [address] Dr. Marvin Reis Nitrite Ql (U) Positive Abnormal NEGATIVE [facility] Comment on above: Performed By: #### U AMIC #### [facility] [address] [address] [address] Marvin Reis pH (U) 5.5 [pH] Normal 5-9 [facility] Comment on above: Performed By: #### U AMIC #### [facility] [address] [address] [address] Marvin Reis RBC 5-10 Abnormal 0-2 [facility] Comment on above: Performed By: #### U AMIC #### [facility] [address] [address] [address] Marvin Reis SPEC GRAVITY 1.015 Normal 1.005-<=1.025 [facility] Comment on above: Performed By: #### U AMIC #### [facility] [address] [address] [address] Marvin Reis UA PROTEIN Negative Normal NEGATIVE/ TRACE [facility] Comment on above: Performed By: #### U AMIC #### [facility] [address] [place] [address] Dr. Marvin Reis Urobilinogen Qn (U) 0.2 {Robbie'U}/dL Normal 0.2 - 1. 0 [facility] Comment on above: Performed By: #### U AMIC #### [facility] [address] [place] [address] Dr. Marvin Reis WBC 50-75 Abnormal NONE SEEN [facility] Comment on above: Performed By: #### U AMIC #### [facility] [address] [id number] Marvin Reis CULTURE URINEon 01-23-2023 CULTURE [...] Trimethoprim/Sulfamet hoxazole <=10 S F Normal [facility] Comment on above: Performed By: #### U AMIC #### [facility] [address] [place] [address] Dr. Marvin Reis UA RANDOM W/MICROSCOPICon BACTERIA TRACE Abnormal NONE SEEN [facility] Comment on above: Performed By: #### U AMIC #### [facility] [address] [place] [address] Dr. Marvin Reis Bilirubin Ql (U) Negative Normal NEGATIVE [facility] Comment on above: Performed By: #### U AMIC #### [facility] [address] [address] [address] Marvin Reis CAST NONE SEEN Normal NONE SEEN [facility] Comment on above: Performed By: #### U AMIC #### [facility] [address] [address] [address] Marvin Reis Clarity (U) SL CLOUDY Abnormal CLEAR [facility] Comment on above: Performed By: #### U AMIC #### [facility] [address] [address] [address] Marvin Reis Color (U) LT. YELLOW Normal YELLOW [facility] Comment on above: Performed By: #### U AMIC #### [facility] [address] [place] [address] Dr. Marvin Reis Crystals LM Nom (Urine sed) NONE SEEN Normal NONE SEEN [facility] Comment on above: Performed By: #### U AMIC #### [facility] [address] [place] [address] Dr. Marvin Reis Epithelial cells LM Ql (Urine sed) NONE SEEN Normal NONE SEEN /RARE [facility] Comment on above: Performed By: #### U AMIC #### [facility] [address] [place] [address] Dr. Marvin Reis Glucose Ql (U) Negative Normal NEGATIVE [facility] Comment on above: Performed By: #### U AMIC #### [facility] [address] [address] [address] Marvin Reis Hemoglobin Ql (U) Negative Normal NEGATIVE The [facility] Comment on above: Performed By: #### U AMIC #### [facility] [address] [address] [address] Marvin Reis Ketones Ql (U) Negative Normal NEGATIVE [facility] Comment on above: Performed By: #### U AMIC #### [facility] [address] [place] [address] Dr. Marvin Reis LEUKOCYTES TRACE Abnormal NEGATIVE [facility] Comment on above: Performed By: #### U AMIC #### [facility] [address] [address] [address] Marvin Reis MUCOUS NONE SEEN Normal NONE SEEN [facility] Comment on above: Performed By: #### U AMIC #### [facility] [address] [place] [address] Dr. Marvin Reis Nitrite Ql (U) Negative Normal NEGATIVE [facility] Comment on above: Performed By: #### U AMIC #### [facility] [address] [place] [address] Dr. Marvin Reis pH (U) 6.0 [pH] Normal 5-9 [facility] Comment on above: Performed By: #### U AMIC #### [facility] [address] [place] [address] Dr. Marvin Reis RBC NONE SEEN Abnormal 0-2 [facility] Comment on above: Performed By: #### U AMIC #### [facility] [address] [place] [address] Dr. Marvin Reis SPEC GRAVITY 1.020 Normal 1.005-<=1.025 [facility] Comment on above: Performed By: #### U AMIC #### [facility] [address] [place] [address] Dr. Marvin Reis UA PROTEIN Negative Normal NEGATIVE/ TRACE [facility] Comment on above: Performed By: #### U AMIC #### [facility] [address] [place] [address] Dr. Marvin Reis Urobilinogen Qn (U) 0.2 {Robbie'U}/dL Normal 0.2 - 1. 0 [facility] Comment on above: Performed By: #### U AMIC #### [facility] [address] [place] [address] Dr. Marvin Reis WBC 10-20 Abnormal NONE SEEN [facility] Comment on above: Performed By: #### U AMIC #### [facility] [address] [place] [address] Dr. Marvin Reis CULTURE URINEon 01-07-2023 CULTURE URINE Isolate 1 Dawna albicans 10,000 cfu/mL of Normal [facility] Comment on above: Performed By: #### U RCX #### [facility] [address] [address] [address] Marvin Reis UA RANDOM W/MICROSCOPICon BACTERIA TRACE Abnormal NONE SEEN [facility] Comment on above: Performed By: #### U AMIC #### [facility] [address] [address] [address] Marvin Reis Bilirubin Ql (U) Negative Normal NEGATIVE [facility] Comment on above: Performed By: #### U AMIC #### [facility] [address] [address] [address] Marvin Reis CA OX CRYSTALS RARE Normal [facility] Comment on above: Performed By: #### U AMIC #### [facility] [address] [address] [address] Marvin Reis CAST NONE SEEN Normal NONE SEEN [facility] Comment on above: Performed By: #### U AMIC #### [facility] [address] [address] [address] Marvin Reis Clarity (U) CLEAR Normal CLEAR [facility] Comment on above: Performed By: #### U AMIC #### [facility] [address] [address] [address] Marvin Reis Color (U) LT. YELLOW Normal YELLOW [facility] Comment on above: Performed By: #### U AMIC #### [facility] [address] [address] [address] Marvin Reis Crystals LM Nom (Urine sed) SEEN Abnormal NONE SEEN [facility] Comment on above: Performed By: #### U AMIC #### [facility] [address] [address] [address] Marvin Reis Epithelial cells LM Ql (Urine sed) FEW Abnormal NONE SEEN /RARE [facility] Comment on above: Performed By: #### U AMIC #### [facility] [address] [address] [address] Marvin Reis Glucose Ql (U) Negative Normal NEGATIVE [facility] Comment on above: Performed By: #### U AMIC #### [facility] [address] [address] [address] Marvin Reis Hemoglobin Ql (U) Negative Normal NEGATIVE The [facility] Comment on above: Performed By: #### U AMIC #### [facility] [address] [address] [address] Marvin Reis Ketones Ql (U) Negative Normal NEGATIVE [facility] Comment on above: Performed By: #### U AMIC #### [facility] [address] [address] [address] Marvin Reis LEUKOCYTES SMALL Abnormal NEGATIVE [facility] Comment on above: Performed By: #### U AMIC #### [facility] [address] [place] [address] Dr. Marvin Reis MUCOUS NONE SEEN Normal NONE SEEN [facility] Comment on above: Performed By: #### U AMIC #### [facility] [address] [place] [address] Dr. Marvin Reis Nitrite Ql (U) Negative Normal NEGATIVE [facility] Comment on above: Performed By: #### U AMIC #### [facility] [address] [place] [address] Dr. Marvin Reis pH (U) 5.5 [pH] Normal 5-9 [facility] Comment on above: Performed By: #### U AMIC #### [facility] [address] [place] [address] Dr. Marvin Reis RBC 0-2 Normal 0-2 [facility] Comment on above: Performed By: #### U AMIC #### [facility] [address] [place] [address] Dr. Marvin Reis SPEC GRAVITY 1.015 Normal 1.005-<=1.025 [facility] Comment on above: Performed By: #### U AMIC #### [facility] [address] [place] [address] Dr. Marvin Reis UA PROTEIN Negative Normal NEGATIVE/ TRACE [facility] Comment on above: Performed By: #### U AMIC #### [facility] [address] [place] [address] Dr. Marvin Reis Urobilinogen Qn (U) 0.2 {Robbie'U}/dL Normal 0.2 - 1. 0 [facility] Comment on above: Performed By: #### U AMIC #### [facility] [address] [place] [address] Dr. Marvin Reis WBC 50-75 Abnormal NONE SEEN [facility] Comment on above: Performed By: #### U AMIC #### [facility] [address] [place] [address] Dr. Marvin Reis YEAST PRESENT Abnormal NONE SEEN [facility] Comment on above: Performed By: #### U AMIC #### [facility] [address] [place] [address] Dr. Marvin Reis CULTURE URINEon 12-25-2022 CULTURE [...] Trimethoprim/Sulfamet hoxazole >=320 R F Normal [facility] Comment on above: Performed By: #### U RCX #### [facility] [address] [place] [address] Dr. Marvin Reis UA RANDOM W/MICROSCOPICon BACTERIA NONE SEEN Normal NONE SEEN [facility] Comment on above: Performed By: #### U AMIC #### [facility] [address] [place] [address] Dr. Marvin Reis Bilirubin Ql (U) Negative Normal NEGATIVE [facility] Comment on above: Performed By: #### U AMIC #### [facility] [address] [place] [address] Dr. Marvin Reis CAST NONE SEEN Normal NONE SEEN [facility] Comment on above: Performed By: #### U AMIC #### [facility] [address] [place] [address] Dr. Marvin Reis Clarity (U) CLEAR Normal CLEAR [facility] Comment on above: Performed By: #### U AMIC #### [facility] [address] [address] [address] Marvin Reis Color (U) LT. YELLOW Normal YELLOW [facility] Comment on above: Performed By: #### U AMIC #### [facility] [address] [place] [address] Dr. Marvin Reis Crystals LM Nom (Urine sed) NONE SEEN Normal NONE SEEN [facility] Comment on above: Performed By: #### U AMIC #### [facility] [address] [place] [address] Dr. Marvin Reis Epithelial cells LM Ql (Urine sed) RARE Normal NONE SEEN /RARE [facility] Comment on above: Performed By: #### U AMIC #### [facility] [address] [place] [address] Dr. Marvin Reis Glucose Ql (U) Negative Normal NEGATIVE [facility] Comment on above: Performed By: #### U AMIC #### [facility] [address] [place] [address] Dr. Marvin Reis Hemoglobin Ql (U) Negative Normal NEGATIVE The [facility] Comment on above: Performed By: #### U AMIC #### [facility] [address] [address] [address] Marvin Reis Ketones Ql (U) Negative Normal NEGATIVE [facility] Comment on above: Performed By: #### U AMIC #### [facility] [address] [place] [address] Dr. Marvin Reis LEUKOCYTES MODERATE Abnormal NEGATIVE [facility] Comment on above: Performed By: #### U AMIC #### [facility] [address] [place] [address] Dr. Marvin Reis MUCOUS NONE SEEN Normal NONE SEEN [facility] Comment on above: Performed By: #### U AMIC #### [facility] [address] [place] [address] Dr. Marvin Reis Nitrite Ql (U) Negative Normal NEGATIVE [facility] Comment on above: Performed By: #### U AMIC #### [facility] [address] [place] [address] Dr. Marvin Reis pH (U) 5.5 [pH] Normal 5-9 [facility] Comment on above: Performed By: #### U AMIC #### [facility] [address] [place] [address] Dr. Marvin Reis RBC NONE SEEN Abnormal 0-2 [facility] Comment on above: Performed By: #### U AMIC #### [facility] [address] [place] [address] Dr. Marvin Reis SPEC GRAVITY 1.015 Normal 1.005-<=1.025 [facility] Comment on above: Performed By: #### U AMIC #### [facility] [address] [place] [address] Dr. Marvin Reis UA PROTEIN Negative Normal NEGATIVE/ TRACE [facility] Comment on above: Performed By: #### U AMIC #### [facility] [address] [place] [address] Dr. Marvin Reis Urobilinogen Qn (U) 0.2 {Robbie'U}/dL Normal 0.2 - 1. 0 [facility] Comment on above: Performed By: #### U AMIC #### [facility] [address] [place] [address] Dr. Marvin Reis WBC 10-20 Abnormal NONE SEEN [facility] Comment on above: Performed By: #### U AMIC #### [facility] [address] [place] [address] Dr. Marvin Reis CULTURE URINEon 12-05-2022 CULTURE [...] Trimethoprim/Sulfamet hoxazole <=20 S F Normal The [facility] Comment on above: Performed By: #### U RCX #### [facility] [address] [place] [address] Dr. Marvin Reis CREATININEon 12-03-2022 Creatinine [Mass/Vol] 0.88 mg/dL Normal 0.70-1.30 [facility] Comment on above: Performed By: #### U RCX #### [facility] [address] [place] [address] Dr. Marvin Reis EGFR-AF TRISTANIAN >60 Normal >=60 [facility] Comment on above: Performed By: #### U RCX #### [facility] [address] [place] [address] Dr. Marvin Reis EGFR-NON AF TRISTANIAN >60 Normal >=60 [facility] Comment on above: Performed By: #### U RCX #### [facility] [address] [place] [address] ABDOMEN WO/W CONon [...] ELENO PARKER Date: 2022-12-03 14:51 Normal The [facility] UA RANDOM W/MICROSCOPICon BACTERIA TRACE Abnormal NONE SEEN The [facility] Comment on above: Performed By: #### U RCX #### [facility] [address] [place] [address] Dr. Marvin Reis Bilirubin Ql (U) Negative Normal NEGATIVE [facility] Comment on above: Performed By: #### U RCX #### [facility] [address] [place] [address] Dr. Marvin Reis CAST NONE SEEN Normal NONE SEEN The [facility] Comment on above: Performed By: #### U RCX #### [facility] [address] [place] [address] Dr. Marvin Reis Clarity (U) CLEAR Normal CLEAR [facility] Comment on above: Performed By: #### U RCX #### [facility] [address] [place] [address] Dr. Marvin Reis Color (U) LT. YELLOW Normal YELLOW The [facility] Comment on above: Performed By: #### U RCX #### [facility] [address] [place] [address] Dr. Marvin Reis Crystals LM Nom (Urine sed) NONE SEEN Normal NONE SEEN [facility] Comment on above: Performed By: #### U RCX #### [facility] [address] [place] [address] Dr. Marvin Reis Epithelial cells LM Ql (Urine sed) RARE Normal NONE SEEN /RARE The [facility] Comment on above: Performed By: #### U RCX #### [facility] [address] [address] [address] Marvin Reis Glucose Ql (U) Negative Normal NEGATIVE [facility] Comment on above: Performed By: #### U RCX #### [facility] [address] [address] [address] Marvin Reis Hemoglobin Ql (U) TRACE-INTACT Abnormal NEGATIVE [facility] Comment on above: Performed By: #### U RCX #### [facility] [address] [address] [address] Marvin Reis Ketones Ql (U) Negative Normal NEGATIVE [facility] Comment on above: Performed By: #### U RCX #### [facility] [address] [place] [address] Dr. Marvin Reis LEUKOCYTES TRACE Abnormal NEGATIVE [facility] Comment on above: Performed By: #### U RCX #### [facility] [address] [address] [address] aMrvin Reis MUCOUS TRACE Abnormal NONE SEEN [facility] Comment on above: Performed By: #### U RCX #### [facility] [address] [place] [address] Dr. Marvin Reis Nitrite Ql (U) Negative Normal NEGATIVE [facility] Comment on above: Performed By: #### U RCX #### [facility] [address] [address] [address] Marvin Reis pH (U) 5.0 [pH] Normal 5-9 [facility] Comment on above: Performed By: #### U RCX #### [facility] [address] [address] [address] Marvin Reis RBC 0-2 Normal 0-2 [facility] Comment on above: Performed By: #### U RCX #### [facility] [address] [place] [address] Dr. Marvin Reis SPEC GRAVITY 1.010 Normal 1.005-<=1.025 [facility] Comment on above: Performed By: #### U RCX #### [facility] [address] [place], [place] [address] Dr. Marvin Reis UA PROTEIN TRACE Normal NEGATIVE/ TRACE [facility] Comment on above: Performed By: #### U RCX #### [facility] [address] [place], [place] [address] Dr. Marvin Reis Urobilinogen Qn (U) 0.2 {Robbie'U}/dL Normal 0.2 - 1. 0 [facility] Comment on above: Performed By: #### U RCX #### [facility] [address] [address] [address] Marvin Reis WBC 2-5 Abnormal NONE SEEN The [facility] Comment on above: Performed By: #### U RCX #### [facility] [address] [address] [address] ABD/PELVIS WO CONon [...] MAGY COMER Date: 2022-11-20 14:51 Normal The [facility] CULTURE URINEon 11-11-2022 CULTURE URINE Culture Observations : GUSTABO TO FOLLOW. Isolate 1 Enterobacter aerogenes >100,000 cfu/mL of Normal The [facility] Comment on above: Performed By: #### U RCX #### [facility] [address] [place] [address] Dr. Marvin Reis UA RANDOM W/MICROSCOPICon BACTERIA SMALL Abnormal NONE SEEN The [facility] Comment on above: Performed By: #### U AMIC #### [facility] [address] [place] [address] Dr. Marvin Reis Bilirubin Ql (U) Negative Normal NEGATIVE [facility] Comment on above: Performed By: #### U AMIC #### [facility] [address] [place] [address] Dr. Marvin Reis CAST NONE SEEN Normal NONE SEEN The [facility] Comment on above: Performed By: #### U AMIC #### [facility] [address] [place] [address] Dr. Marvin Reis Clarity (U) CLOUDY Abnormal CLEAR The [facility] Comment on above: Performed By: #### U AMIC #### [facility] [address] [place] [address] Dr. Marvin Reis Color (U) LT. YELLOW Normal YELLOW The [facility] Comment on above: Performed By: #### U AMIC #### [facility] [address] [address] [address] Marvin Reis Crystals LM Nom (Urine sed) NONE SEEN Normal NONE SEEN [facility] Comment on above: Performed By: #### U AMIC #### [facility] [address] [address] [address] Marvin Reis Epithelial cells LM Ql (Urine sed) NONE SEEN Normal NONE SEEN /RARE [facility] Comment on above: Performed By: #### U AMIC #### [facility] [address] [address] [address] Marvin Reis Glucose Ql (U) Negative Normal NEGATIVE [facility] Comment on above: Performed By: #### U AMIC #### [facility] [address] [place] [address] Dr. Marvin Reis Hemoglobin Ql (U) TRACE-INTACT Abnormal NEGATIVE [facility] Comment on above: Performed By: #### U AMIC #### [facility] [address] [address] [address] Marvin Reis Ketones Ql (U) Negative Normal NEGATIVE [facility] Comment on above: Performed By: #### U AMIC #### [facility] [address] [address] [address] Marvin Reis LEUKOCYTES LARGE Abnormal NEGATIVE [facility] Comment on above: Performed By: #### U AMIC #### [facility] [address] [address] [address] Marvin Reis MUCOUS NONE SEEN Normal NONE SEEN [facility] Comment on above: Performed By: #### U AMIC #### [facility] [address] [place] [address] Dr. Marvin Reis Nitrite Ql (U) Positive Abnormal NEGATIVE [facility] Comment on above: Performed By: #### U AMIC #### [facility] [address] [place] [address] Dr. Marvin Reis pH (U) 5.5 [pH] Normal 5-9 [facility] Comment on above: Performed By: #### U AMIC #### [facility] [address] [place] [address] Dr. Marvin Reis RBC 0-2 Normal 0-2 [facility] Comment on above: Performed By: #### U AMIC #### [facility] [address] [place] [address] Dr. Marvin Reis SPEC GRAVITY 1.015 Normal 1.005-<=1.025 [facility] Comment on above: Performed By: #### U AMIC #### [facility] [address] [place] [address] Dr. Marvin Reis UA PROTEIN Negative Normal NEGATIVE/ TRACE [facility] Comment on above: Performed By: #### U AMIC #### [facility] [address] [place] [address] Dr. Marvin Reis Urobilinogen Qn (U) 0.2 {Robbie'U}/dL Normal 0.2 - 1. 0 [facility] Comment on above: Performed By: #### U AMIC #### [facility] [address] [place] [address] Dr. Marvin Reis WBC 10-20 Abnormal NONE SEEN [facility] Comment on above: Performed By: #### U AMIC #### [facility] [address] [place] [address] Dr. Marvin Reis CULTURE URINEon 10-24-2022 CULTURE [...] Trimethoprim/Sulfamet hoxazole <=20 S F Normal The [facility] Comment on above: Performed By: #### U RCX #### [facility] [address] [place] [address] Dr. Marvin Reis UA RANDOM W/MICROSCOPICon BACTERIA LARGE Abnormal NONE SEEN The [facility] Comment on above: Performed By: #### U AMIC #### [facility] [address] [address] [address] Marvin Reis Bilirubin Ql (U) Negative Normal NEGATIVE [facility] Comment on above: Performed By: #### U AMIC #### [facility] [address] [address] [address] Marvin Reis CAST NONE SEEN Normal NONE SEEN The [facility] Comment on above: Performed By: #### U AMIC #### [facility] [address] [address] [address] Marvin Reis Clarity (U) SL CLOUDY Abnormal CLEAR The [facility] Comment on above: Performed By: #### U AMIC #### [facility] [address] [address] [address] Marvin Reis Color (U) YELLOW Normal YELLOW The [facility] Comment on above: Performed By: #### U AMIC #### [facility] [address] [address] [address] Marvin Reis Crystals LM Nom (Urine sed) NONE SEEN Normal NONE SEEN The [facility] Comment on above: Performed By: #### U AMIC #### [facility] [address] [address] [address] Marvin Reis Epithelial cells LM Ql (Urine sed) FEW Abnormal NONE SEEN /RARE The [facility] Comment on above: Performed By: #### U AMIC #### [facility] [address] [address] [address] Marvin Reis Glucose Ql (U) Negative Normal NEGATIVE [facility] Comment on above: Performed By: #### U AMIC #### [facility] [address] [address] [address] Marvin Reis Hemoglobin Ql (U) TRACE-INTACT Abnormal NEGATIVE The [facility] Comment on above: Performed By: #### U AMIC #### [facility] [address] [address] [address] Marvin Reis Ketones Ql (U) Negative Normal NEGATIVE [facility] Comment on above: Performed By: #### U AMIC #### [facility] [address] [address] [address] Marvin Reis LEUKOCYTES LARGE Abnormal NEGATIVE The [facility] Comment on above: Performed By: #### U AMIC #### [facility] [address] [address] [address] Marvin Reis MUCOUS NONE SEEN Normal NONE SEEN The [facility] Comment on above: Performed By: #### U AMIC #### [facility] [address] [address] [address] Marvin Reis Nitrite Ql (U) Negative Normal NEGATIVE [facility] Comment on above: Performed By: #### U AMIC #### [facility] [address] [address] [address] Marvin Reis pH (U) 5.0 [pH] Normal 5-9 [facility] Comment on above: Performed By: #### U AMIC #### [facility] [address] [address] [address] Marvin Reis RBC 5-10 Abnormal 0-2 [facility] Comment on above: Performed By: #### U AMIC #### [facility] [address] [address] [address] Marvin Reis SPEC GRAVITY 1.010 Normal 1.005-<=1.025 [facility] Comment on above: Performed By: #### U AMIC #### [facility] [address] [place] [address] Dr. Marvin Reis UA PROTEIN Negative Normal NEGATIVE/ TRACE [facility] Comment on above: Performed By: #### U AMIC #### [facility] [address] [place] [address] Dr. Marvin Reis Urobilinogen Qn (U) 0.2 {Robbie'U}/dL Normal 0.2 - 1. 0 [facility] Comment on above: Performed By: #### U AMIC #### [facility] [address] [address] [address] Marvin Reis WBC 50-75 Abnormal NONE SEEN The [facility] Comment on above: Performed By: #### U AMIC #### [facility] [address] [address] [address] Marvin Reis CULTURE URINEon 10-01-2022 CULTURE URINE Culture Observations : NO GROWTH. Normal The [facility] Comment on above: Performed By: #### U AMIC #### [facility] [address] [address] [address] Marvin Reis UA RANDOM W/MICROSCOPICon BACTERIA SMALL Abnormal NONE SEEN The [facility] Comment on above: Performed By: #### U AMIC #### [facility] [address] [address] [address] Marvin Reis Bilirubin Ql (U) Negative Normal NEGATIVE [facility] Comment on above: Performed By: #### U AMIC #### [facility] [address] [address] [address] Marvin Reis CAST SEEN Abnormal NONE SEEN [facility] Comment on above: Performed By: #### U AMIC #### [facility] [address] [address] [address] Marvin Reis Clarity (U) CLEAR Normal CLEAR [facility] Comment on above: Performed By: #### U AMIC #### [facility] [address] [address] [address] Marvin Reis Color (U) LT. YELLOW Normal YELLOW [facility] Comment on above: Performed By: #### U AMIC #### [facility] [address] [address] [address] Marvin Reis Crystals LM Nom (Urine sed) NONE SEEN Normal NONE SEEN The [facility] Comment on above: Performed By: #### U AMIC #### [facility] [address] [address] [address] Marvin Reis Epithelial cells LM Ql (Urine sed) FEW Abnormal NONE SEEN /RARE The [facility] Comment on above: Performed By: #### U AMIC #### [facility] [address] [place] [address] Dr. Marvin Reis Glucose Ql (U) Negative Normal NEGATIVE [facility] Comment on above: Performed By: #### U AMIC #### [facility] [address] [place] [address] Dr. Marvin Reis Hemoglobin Ql (U) TRACE-INTACT Abnormal NEGATIVE [facility] Comment on above: Performed By: #### U AMIC #### [facility] [address] [address] [address] Marvin Reis HYALINE CAST FEW Normal [facility] Comment on above: Performed By: #### U AMIC #### [facility] [address] [place] [address] Dr. Marvin Reis Ketones Ql (U) Negative Normal NEGATIVE [facility] Comment on above: Performed By: #### U AMIC #### [facility] [address] [place] [address] Dr. Marvin Reis LEUKOCYTES MODERATE Abnormal NEGATIVE [facility] Comment on above: Performed By: #### U AMIC #### [facility] [address] [place] [address] Dr. Marvin Reis MUCOUS SMALL Abnormal NONE SEEN The [facility] Comment on above: Performed By: #### U AMIC #### [facility] [address] [place] [address] Dr. Marvin Reis Nitrite Ql (U) Negative Normal NEGATIVE [facility] Comment on above: Performed By: #### U AMIC #### [facility] [address] [place] [address] Dr. Marvin Reis pH (U) 5.5 [pH] Normal 5-9 [facility] Comment on above: Performed By: #### U AMIC #### [facility] [address] [place] [address] Dr. Marvin Reis RBC 0-2 Normal 0-2 [facility] Comment on above: Performed By: #### U AMIC #### [facility] [address] [place] [address] Dr. Marvin Reis SPEC GRAVITY 1.020 Normal 1.005-<=1.025 [facility] Comment on above: Performed By: #### U AMIC #### [facility] [address] [place] [address] Dr. Marvin Reis UA PROTEIN Negative Normal NEGATIVE/ TRACE [facility] Comment on above: Performed By: #### U AMIC #### [facility] [address] [address] [address] Marvin Reis Urobilinogen Qn (U) 0.2 {Robbie'U}/dL Normal 0.2 - 1. 0 [facility] Comment on above: Performed By: #### U AMIC #### [facility] [address] [address] [address] Marvin Reis WBC 10-20 Abnormal NONE SEEN The [facility] Comment on above: Performed By: #### U AMIC #### [facility] [address] [address] [address] Marvin Reis CULTURE URINEon 09-26-2022 CULTURE [...] Trimethoprim/Sulfamet hoxazole <=20 S F Normal The [facility] Comment on above: Performed By: #### U RCX #### [facility] [address] [place] [address] Dr. Marvin Reis CBC W MANUAL DIFFon 09-25-20 ANISOCYTOSIS SLIGHT Normal The [facility] Comment on above: Performed By: #### U RCX #### [facility] [address] [place] [address] Dr. Marvin Reis ATYPICAL LYMPH # Normal [facility] Comment on above: Performed By: #### U RCX #### [facility] [address] [place] [address] Dr. Marvin Reis ATYPICAL LYMPH % Normal [facility] Comment on above: Performed By: #### U RCX #### [facility] [address] [place] [address] Dr. Marvin Reis BAND # Normal 0.0-0.3 [facility] Comment on above: Performed By: #### U RCX #### [facility] [address] [place] [address] Dr. Marvin Reis BAND % Normal 0-5 [facility] Comment on above: Performed By: #### U RCX #### [facility] [address] [place] [address] Dr. Marvin Reis BASOM # 0.00 103/ul Normal 0.00-0.10 [facility] Comment on above: Performed By: #### U RCX #### [facility] [address] [place] [address] Dr. Marvin Reis BASOM % 0.0 % Critically low 0.2-2.0 [facility] Comment on above: Performed By: #### U RCX #### [facility] [address] [place] [address] Dr. Marvin Reis BLAST # Normal [facility] Comment on above: Performed By: #### U RCX #### [facility] [address] [place] [address] Dr. Marvin Reis BLAST % Normal [facility] Comment on above: Performed By: #### U RCX #### [facility] [address] [place] [address] Dr. Marvin Reis CORRECTED WBC Normal 4.0-11.0 [facility] Comment on above: Performed By: #### U RCX #### [facility] [address] [place] [address] Dr. Marvin Reis EOS # 0.00 103/ul Normal 0.00-0.70 [facility] Comment on above: Performed By: #### U RCX #### [facility] [address] [place] [address] Dr. Marvin Reis EOS% 0.0 % Critically low 0.9-7.0 [facility] Comment on above: Performed By: #### U RCX #### [facility] [address] [place] [address] Dr. Marvin Reis HCT 32.1 % Critically low 42.0-54.0 [facility] Comment on above: Performed By: #### U RCX #### [facility] [address] [address] [address] Marvin Reis HGB 10.2 g/dl Critically low 14.0-18.0 [facility] Comment on above: Performed By: #### U RCX #### [facility] [address] [address] [address] Marvin Reis LYMPHM # 0.76 103/ul Critically low 1.20-3.80 [facility] Comment on above: Performed By: #### U RCX #### [facility] [address] [place] [address] Dr. Marvin Reis LYMPHM% 14.0 % Critically low 20.5-60.0 [facility] Comment on above: Performed By: #### U RCX #### [facility] [address] [place] [address] Dr. Marvin Reis MCH 26.5 pg Normal 25.9-34.0 [facility] Comment on above: Performed By: #### U RCX #### [facility] [address] [place] [address] Dr. Marvin Reis MCHC 31.8 g/dl Normal 29.9-35.2 [facility] Comment on above: Performed By: #### U RCX #### [facility] [address] [place] [address] Dr. Marvin Reis MCV 83.4 fL Normal 80.0-94.0 [facility] Comment on above: Performed By: #### U RCX #### [facility] [address] [address] [address] Marvin Reis METAMYELOCYTE # Normal [facility] Comment on above: Performed By: #### U RCX #### [facility] [address] [place] [address] Dr. Marvin Reis METAMYELOCYTE % Normal [facility] Comment on above: Performed By: #### U RCX #### [facility] [address] [address] [address] Marvin Reis MONOM# 0.27 103/ul Critically low 0.30-0.80 [facility] Comment on above: Performed By: #### U RCX #### [facility] [address] [address] [address] Marvin Reis MONOM% 5.0 % Normal 1.7-12.0 [facility] Comment on above: Performed By: #### U RCX #### [facility] [address] [address] [address] Marvin Reis MPV 9.8 fL Normal 9.5-13.5 [facility] Comment on above: Performed By: #### U RCX #### [facility] [address] [place] [address] Dr. Marvin Reis MYELOCYTE # Normal [facility] Comment on above: Performed By: #### U RCX #### [facility] [address] [address] [address] Marvin Reis MYELOCYTE % Normal [facility] Comment on above: Performed By: #### U RCX #### [facility] [address] [place] [address] Dr. Marvin Reis NRBC Normal [facility] Comment on above: Performed By: #### U RCX #### [facility] [address] [place] [address] Dr. Marvin Reis PLT 78 103/ul Critically low 150-450 [facility] Comment on above: Performed By: #### U RCX #### [facility] [address] [address] [address] Marvin Reis RBC 3.85 106/ul Critically low 4.70-6.10 [facility] Comment on above: Performed By: #### U RCX #### [facility] [address] [place] [address] Dr. Marvin Reis RDW 15.8 % Critically high 11.0-15.0 [facility] Comment on above: Performed By: #### U RCX #### [facility] [address] [address] [address] Marvin Reis SEG # 4.37 103/ul Normal 1.40-6.50 [facility] Comment on above: Performed By: #### U RCX #### [facility] [address] [address] [address] Marvin Reis SEG % 81.0 % Critically high 43.0-75.0 [facility] Comment on above: Performed By: #### U RCX #### [facility] [address] [place] [address] Dr. Marvin Reis WBC 5.4 103/ul Normal 4.0-11.0 [facility] Comment on above: Performed By: #### U RCX #### [facility] [address] [place] [address] Dr. Marvin Reis CRPon 09-25-2022 CRP 8.9 mg/dL Critically high <=1.0 [facility] Comment on above: Performed By: #### U AMIC #### [facility] [address] [place] [address] Dr. Marvin Reis LACTATE/LACTIC ACIDon 2021 Lactate [Moles/Vol] 0.9 mmol/L Normal 0.4-1.9 [facility] Comment on above: Performed By: #### U RCX #### [facility] [address] [place] [address] Dr. Marvin Reis PROF 14(COMP METB)on 022 Albumin [Mass/Vol] 2.6 g/dL Critically low 3.4-5.0 [facility] Comment on above: Performed By: #### U AMIC #### [facility] [address] [address] [address] Marvin Reis Albumin/Globulin [Mass ratio] 0.7 {ratio} Normal [facility] Comment on above: Performed By: #### U AMIC #### [facility] [address] [address] [address] Marvin Reis ALP [Catalytic activity/Vol] 75 U/L Normal 46-116 [facility] Comment on above: Performed By: #### U AMIC #### [facility] [address] [address] [address] Marvin Reis ALT [Catalytic activity/Vol] 23 U/L Normal 16-63 [facility] Comment on above: Performed By: #### U AMIC #### [facility] [address] [address] [address] Marvin Reis Anion gap [Moles/Vol] 11.8 mmol/L Normal [facility] Comment on above: Performed By: #### U AMIC #### [facility] [address] [address] [address] Marvin Reis AST [Catalytic activity/Vol] 21 U/L Normal 15-37 [facility] Comment on above: Performed By: #### U AMIC #### [facility] [address] [address] [address] Marvin Reis Bilirubin [Mass/Vol] 0.8 mg/dL Normal 0.2-1.0 [facility] Comment on above: Performed By: #### U AMIC #### [facility] [address] [address] [address] Marvin Reis Calcium [Mass/Vol] 8.7 mg/dL Normal 8.5-10.1 [facility] Comment on above: Performed By: #### U AMIC #### [facility] [address] [address] [address] Marvin Reis Chloride [Moles/Vol] 105 mmol/L Normal 98-107 [facility] Comment on above: Performed By: #### U AMIC #### [facility] [address] [address] [address] Marvin Reis CO2 [Moles/Vol] 26.1 mmol/L Normal 21.0-32.0 [facility] Comment on above: Performed By: #### U AMIC #### [facility] [address] [address] [address] Marvin Reis Creatinine [Mass/Vol] 0.88 mg/dL Normal 0.70-1.30 [facility] Comment on above: Performed By: #### U AMIC #### [facility] [address] [address] [address] Marvin Reis EGFR-AF TRISTANIAN >60 Normal >=60 [facility] Comment on above: Performed By: #### U AMIC #### [facility] [address] [address] [address] Marvin Reis EGFR-NON AF TRISTANIAN >60 Normal >=60 [facility] Comment on above: Performed By: #### U AMIC #### [facility] [address] [address] [address] Marvin Reis Globulin (S) [Mass/Vol] 3.7 g/dL Normal [facility] Comment on above: Performed By: #### U AMIC #### [facility] [address] [address] [address] Marvin Reis Glucose [Mass/Vol] 93 mg/dL Normal 74-106 [facility] Comment on above: Performed By: #### U AMIC #### [facility] [address] [address] [address] Marvin Reis Potassium [Moles/Vol] 3.9 mmol/L Normal 3.5-5.1 [facility] Comment on above: Performed By: #### U AMIC #### [facility] [address] [address] [address] Marvin Reis Protein [Mass/Vol] 6.3 g/dL Critically low 6.4-8.2 [facility] Comment on above: Performed By: #### U AMIC #### [facility] [address] [address] [address] Marvin Reis Sodium [Moles/Vol] 139 mmol/L Normal 136-145 [facility] Comment on above: Performed By: #### U AMIC #### [facility] [address] [address] [address] Marvin Reis Urea nitrogen [Mass/Vol] 20.0 mg/dL Critically high 7.0-18.0 [facility] Comment on above: Performed By: #### U AMIC #### [facility] [address] [place] [address] Dr. Marvin Reis Urea nitrogen/Creatinine [Mass ratio] 22.7 mg/mg Normal [facility] Comment on above: Performed By: #### U AMIC #### [facility] [address] [place] [address] Dr. Marvin Reis SED RATE WESTERGRENon 2021 SED RATE 49 mm/hr Critically high <=20 [facility] Comment on above: Performed By: #### U AMIC #### [facility] [address] [place] [address] Dr. Marvin Reis CBC W MANUAL DIFFon 09-24-20 ATYPICAL LYMPH # Normal [facility] Comment on above: Performed By: #### U RCX #### [facility] [address] [place] [address] Dr. Marvin Reis ATYPICAL LYMPH % Normal [facility] Comment on above: Performed By: #### U RCX #### [facility] [address] [place] [address] Dr. Marvin Reis BAND # Normal 0.0-0.3 [facility] Comment on above: Performed By: #### U RCX #### [facility] [address] [place] [address] Dr. Marvin Reis BAND % Normal 0-5 [facility] Comment on above: Performed By: #### U RCX #### [facility] [address] [place] [address] Dr. Marvin Reis BASOM # 0.00 103/ul Normal 0.00-0.10 [facility] Comment on above: Performed By: #### U RCX #### [facility] [address] [address] [address] Marvin Reis BASOM % 0.0 % Critically low 0.2-2.0 [facility] Comment on above: Performed By: #### U RCX #### [facility] [address] [place] [address] Dr. Marvin Reis BLAST # Normal [facility] Comment on above: Performed By: #### U RCX #### [facility] [address] [address] [address] Marvin Reis BLAST % Normal [facility] Comment on above: Performed By: #### U RCX #### [facility] [address] [place] [address] Dr. Marvin Reis CORRECTED WBC Normal 4.0-11.0 [facility] Comment on above: Performed By: #### U RCX #### [facility] [address] [address] [address] Marvin Reis EOS # 0.00 103/ul Normal 0.00-0.70 [facility] Comment on above: Performed By: #### U RCX #### [facility] [address] [place] [address] Dr. Marvin Reis EOS% 0.0 % Critically low 0.9-7.0 [facility] Comment on above: Performed By: #### U RCX #### [facility] [address] [place] [address] Dr. Marvin Reis HCT 33.5 % Critically low 42.0-54.0 [facility] Comment on above: Performed By: #### U RCX #### [facility] [address] [place] [address] Dr. Marvin Reis HGB 10.9 g/dl Critically low 14.0-18.0 [facility] Comment on above: Performed By: #### U RCX #### [facility] [address] [place] [address] Dr. Marvin Reis LYMPHM # 0.52 103/ul Critically low 1.20-3.80 [facility] Comment on above: Performed By: #### U RCX #### [facility] [address] [place] [address] Dr. Marvin Reis LYMPHM% 4.0 % Critically low 20.5-60.0 [facility] Comment on above: Performed By: #### U RCX #### [facility] [address] [place] [address] Dr. Marvin Reis MCH 27.2 pg Normal 25.9-34.0 [facility] Comment on above: Performed By: #### U RCX #### [facility] [address] [place] [address] Dr. Marvin Reis MCHC 32.5 g/dl Normal 29.9-35.2 [facility] Comment on above: Performed By: #### U RCX #### [facility] [address] [address] [address] Marvin Reis MCV 83.5 fL Normal 80.0-94.0 [facility] Comment on above: Performed By: #### U RCX #### [facility] [address] [place] [address] Dr. Marvin Reis METAMYELOCYTE # Normal [facility] Comment on above: Performed By: #### U RCX #### [facility] [address] [place] [address] Dr. Marvin Reis METAMYELOCYTE % Normal [facility] Comment on above: Performed By: #### U RCX #### [facility] [address] [place] [address] Dr. Marvin Reis MONOM# 0.39 103/ul Normal 0.30-0.80 [facility] Comment on above: Performed By: #### U RCX #### [facility] [address] [place] [address] Dr. Marvin Reis MONOM% 3.0 % Normal 1.7-12.0 [facility] Comment on above: Performed By: #### U RCX #### [facility] [address] [place] [address] Dr. Marvin Reis MPV 10.5 fL Normal 9.5-13.5 [facility] Comment on above: Performed By: #### U RCX #### [facility] [address] [place] [address] Dr. Marvin Reis MYELOCYTE # Normal [facility] Comment on above: Performed By: #### U RCX #### [facility] [address] [place] [address] Dr. Marvin Reis MYELOCYTE % Normal [facility] Comment on above: Performed By: #### U RCX #### [facility] [address] [address] [address] Marvin Reis NRBC Normal [facility] Comment on above: Performed By: #### U RCX #### [facility] [address] [address] [address] Marvin Reis PLT 96 103/ul Critically low 150-450 [facility] Comment on above: Performed By: #### U RCX #### [facility] [address] [address] [address] Marvin Reis RBC 4.01 106/ul Critically low 4.70-6.10 [facility] Comment on above: Performed By: #### U RCX #### [facility] [address] [address] [address] Marvin Reis RDW 15.8 % Critically high 11.0-15.0 [facility] Comment on above: Performed By: #### U RCX #### [facility] [address] [address] [address] Marvin Reis SEG # 12.00 103/ul Critically high 1.40-6.50 [facility] Comment on above: Performed By: #### U RCX #### [facility] [address] [address] [address] Marvin Reis SEG % 93.0 % Critically high 43.0-75.0 [facility] Comment on above: Performed By: #### U RCX #### [facility] [address] [address] [address] Marvin Reis WBC 12.9 103/ul Critically high 4.0-11.0 [facility] Comment on above: Performed By: #### U RCX #### [facility] [address] [address] [address] Marvin Reis CRPon 09-24-2022 CRP 8.4 mg/dL Critically high <=1.0 [facility] Comment on above: Performed By: #### U AMIC #### [facility] [address] [address] [address] Marvin Reis LACTATE/LACTIC ACIDon 2021 Lactate [Moles/Vol] 2.2 mmol/L Critically high 0.4-1.9 [facility] Comment on above: Performed By: #### L ACT #### [facility] [address] [address] [address] Marvin Reis PROF 14(COMP METB)on 022 Albumin [Mass/Vol] 2.8 g/dL Critically low 3.4-5.0 [facility] Comment on above: Performed By: #### U AMIC #### [facility] [address] [place] [address] Dr. Marvin Reis Albumin/Globulin [Mass ratio] 0.7 {ratio} Normal [facility] Comment on above: Performed By: #### U AMIC #### [facility] [address] [place] [address] Dr. Marvin Reis ALP [Catalytic activity/Vol] 80 U/L Normal 46-116 [facility] Comment on above: Performed By: #### U AMIC #### [facility] [address] [place] [address] Dr. Marvin Reis ALT [Catalytic activity/Vol] 20 U/L Normal 16-63 [facility] Comment on above: Performed By: #### U AMIC #### [facility] [address] [place] [address] Dr. Marvin Reis Anion gap [Moles/Vol] 12.3 mmol/L Normal [facility] Comment on above: Performed By: #### U AMIC #### [facility] [address] [place] [address] Dr. Marvin Reis AST [Catalytic activity/Vol] 17 U/L Normal 15-37 [facility] Comment on above: Performed By: #### U AMIC #### [facility] [address] [place] [address] Dr. Marvin Reis Bilirubin [Mass/Vol] 1.0 mg/dL Normal 0.2-1.0 [facility] Comment on above: Performed By: #### U AMIC #### [facility] [address] [address] [address] Marvin Reis Calcium [Mass/Vol] 9.0 mg/dL Normal 8.5-10.1 [facility] Comment on above: Performed By: #### U AMIC #### [facility] [address] [address] [address] Marvin Reis Chloride [Moles/Vol] 106 mmol/L Normal 98-107 [facility] Comment on above: Performed By: #### U AMIC #### [facility] [address] [address] [address] Marvin Reis CO2 [Moles/Vol] 25.8 mmol/L Normal 21.0-32.0 [facility] Comment on above: Performed By: #### U AMIC #### [facility] [address] [place] [address] Dr. Marvin Reis Creatinine [Mass/Vol] 1.08 mg/dL Normal 0.70-1.30 [facility] Comment on above: Performed By: #### U AMIC #### [facility] [address] [address] [address] Marvin Reis EGFR-AF TRISTANIAN >60 Normal >=60 [facility] Comment on above: Performed By: #### U AMIC #### [facility] [address] [address] [address] Marvin Reis EGFR-NON AF TRISTANIAN >60 Normal >=60 [facility] Comment on above: Performed By: #### U AMIC #### [facility] [address] [address] [address] Marvin Reis Globulin (S) [Mass/Vol] 3.8 g/dL Normal [facility] Comment on above: Performed By: #### U AMIC #### [facility] [address] [address] [address] Marvin Reis Glucose [Mass/Vol] 117 mg/dL Critically high 74-106 [facility] Comment on above: Performed By: #### U AMIC #### [facility] [address] [address] [address] Marvin Reis Potassium [Moles/Vol] 4.1 mmol/L Normal 3.5-5.1 [facility] Comment on above: Performed By: #### U AMIC #### [facility] [address] [address] [address] Marvin Reis Protein [Mass/Vol] 6.6 g/dL Normal 6.4-8.2 [facility] Comment on above: Performed By: #### U AMIC #### [facility] [address] [address] [address] Marvin Reis Sodium [Moles/Vol] 140 mmol/L Normal 136-145 [facility] Comment on above: Performed By: #### U AMIC #### [facility] [address] [place] [address] Dr. Marvin Reis Urea nitrogen [Mass/Vol] 23.0 mg/dL Critically high 7.0-18.0 [facility] Comment on above: Performed By: #### U AMIC #### [facility] [address] [place] [address] Dr. Marvin Reis Urea nitrogen/Creatinine [Mass ratio] 21.3 mg/mg Normal [facility] Comment on above: Performed By: #### U AMIC #### [facility] [address] [place] [address] Dr. Marvin Reis SED RATE [facility] 2021 SED RATE 51 mm/hr Critically high <=20 [facility] Comment on above: Performed By: #### U RCX #### [facility] [address] [place] [address] Dr. Marvin Reis UA RANDOMon 09-24-2022 Bilirubin Ql (U) Negative Normal NEGATIVE [facility] Comment on above: Performed By: #### U AMIC #### [facility] [address] [place] [address] Dr. Marvin Reis Clarity (U) CLEAR Normal CLEAR [facility] Comment on above: Performed By: #### U AMIC #### [facility] [address] [place] [address] Dr. Marvin Reis Color (U) LT. YELLOW Normal YELLOW The [facility] Comment on above: Performed By: #### U AMIC #### [facility] [address] [address] [address] Marvin Reis Glucose Ql (U) Negative Normal NEGATIVE [facility] Comment on above: Performed By: #### U AMIC #### [facility] [address] [address] [address] Marvin Reis Hemoglobin Ql (U) LARGE Abnormal NEGATIVE The [facility] Comment on above: Performed By: #### U AMIC #### [facility] [address] [address] [address] Marvin Reis Ketones Ql (U) Negative Normal NEGATIVE [facility] Comment on above: Performed By: #### U AMIC #### [facility] [address] [place] [address] Dr. Marvin Reis LEUKOCYTES MODERATE Abnormal NEGATIVE [facility] Comment on above: Performed By: #### U AMIC #### [facility] [address] [place] [address] Dr. Marvin Reis Nitrite Ql (U) Negative Normal NEGATIVE [facility] Comment on above: Performed By: #### U AMIC #### [facility] [address] [address] [address] Marvin Reis pH (U) 5.5 [pH] Normal 5-9 [facility] Comment on above: Performed By: #### U AMIC #### [facility] [address] [address] [address] Marvin Reis SPEC GRAVITY 1.020 Normal 1.005-<=1.025 [facility] Comment on above: Performed By: #### U AMIC #### [facility] [address] [place] [address] Dr. Marvin Reis UA PROTEIN Negative Normal NEGATIVE/ TRACE [facility] Comment on above: Performed By: #### U AMIC #### [facility] [address] [place] [address] Dr. Marvin Reis Urobilinogen Qn (U) 0.2 {Robbie'U}/dL Normal 0.2 - 1. 0 [facility] Comment on above: Performed By: #### U AMIC #### [facility] [address] [place] [address] Dr. Marvin Reis CULTURE URINEon 09-13-2022 CULTURE [...] F Oxacillin >=4 R F Normal The [facility] Comment on above: Performed By: #### U RCX #### [facility] [address] [place] [address] Dr. Marvin Reis UA RANDOM W/MICROSCOPICon BACTERIA TRACE Abnormal NONE SEEN The [facility] Comment on above: Performed By: #### U AMIC #### [facility] [address] [place] [address] Dr. Marvin Reis Bilirubin Ql (U) Negative Normal NEGATIVE [facility] Comment on above: Performed By: #### U AMIC #### [facility] [address] [place] [address] Dr. Marvin Reis CAST NONE SEEN Normal NONE SEEN The [facility] Comment on above: Performed By: #### U AMIC #### [facility] [address] [place] [address] Dr. Marvin Reis Clarity (U) CLEAR Normal CLEAR The [facility] Comment on above: Performed By: #### U AMIC #### [facility] [address] [place] [address] Dr. Marvin Reis Color (U) LT. YELLOW Normal YELLOW The [facility] Comment on above: Performed By: #### U AMIC #### [facility] [address] [address] [address] Marvin Reis Crystals LM Nom (Urine sed) NONE SEEN Normal NONE SEEN [facility] Comment on above: Performed By: #### U AMIC #### [facility] [address] [address] [address] Marvin Reis Epithelial cells LM Ql (Urine sed) FEW Abnormal NONE SEEN /RARE The [facility] Comment on above: Performed By: #### U AMIC #### [facility] [address] [address] [address] Marvin Reis Glucose Ql (U) Negative Normal NEGATIVE [facility] Comment on above: Performed By: #### U AMIC #### [facility] [address] [address] [address] Marvin Reis Hemoglobin Ql (U) Negative Normal NEGATIVE The [facility] Comment on above: Performed By: #### U AMIC #### [facility] [address] [address] [address] Marvin Reis Ketones Ql (U) Negative Normal NEGATIVE [facility] Comment on above: Performed By: #### U AMIC #### [facility] [address] [address] [address] Marvin Reis LEUKOCYTES LARGE Abnormal NEGATIVE The [facility] Comment on above: Performed By: #### U AMIC #### [facility] [address] [address] [address] Marvin Reis MUCOUS NONE SEEN Normal NONE SEEN [facility] Comment on above: Performed By: #### U AMIC #### [facility] [address] [address] [address] Marvin Reis Nitrite Ql (U) Negative Normal NEGATIVE [facility] Comment on above: Performed By: #### U AMIC #### [facility] [address] [address] [address] Marvin Reis pH (U) 5.5 [pH] Normal 5-9 [facility] Comment on above: Performed By: #### U AMIC #### [facility] [address] [address] [address] Marvin Reis RBC 0-2 Normal 0-2 [facility] Comment on above: Performed By: #### U AMIC #### [facility] [address] [place] [address] Dr. Marvin Reis SPEC GRAVITY 1.025 Normal 1.005-<=1.025 [facility] Comment on above: Performed By: #### U AMIC #### [facility] [address] [place] [address] Dr. Marvin Reis UA PROTEIN Negative Normal NEGATIVE/ TRACE [facility] Comment on above: Performed By: #### U AMIC #### [facility] [address] [place] [address] Dr. Marvin Reis Urobilinogen Qn (U) 0.2 {Robbie'U}/dL Normal 0.2 - 1. 0 [facility] Comment on above: Performed By: #### U AMIC #### [facility] [address] [place] [address] Dr. Marvin Reis WBC 10-20 Abnormal NONE SEEN [facility] Comment on above: Performed By: #### U AMIC #### [facility] [address] [place] [address] Dr. Marvin Reis CULTURE URINEon 08-17-2022 CULTURE [...] Trimethoprim/Sulfamet hoxazole <=20 S F Normal The [facility] Comment on above: Performed By: #### U RCX #### [facility] [address] [place] [address] Dr. Marvin Reis UA RANDOM W/MICROSCOPICon 10 -13-2022 BACTERIA MODERATE Abnormal NONE SEEN The [facility] Comment on above: Performed By: #### U RCX #### [facility] [address] [address] [address] Marvin Reis Bilirubin Ql (U) Negative Normal NEGATIVE [facility] Comment on above: Performed By: #### U RCX #### [facility] [address] [place] [address] Dr. Marvin Reis CAST NONE SEEN Normal NONE SEEN The [facility] Comment on above: Performed By: #### U RCX #### [facility] [address] [address] [address] Marvin Reis Clarity (U) SL CLOUDY Abnormal CLEAR The [facility] Comment on above: Performed By: #### U RCX #### [facility] [address] [place] [address] Dr. Marvin Reis Color (U) LT. YELLOW Normal YELLOW The [facility] Comment on above: Performed By: #### U RCX #### [facility] [address] [address] [address] Marvin Reis Crystals LM Nom (Urine sed) NONE SEEN Normal NONE SEEN [facility] Comment on above: Performed By: #### U RCX #### [facility] [address] [place] [address] Dr. Marvin Reis Epithelial cells LM Ql (Urine sed) RARE Normal NONE SEEN /RARE The [facility] Comment on above: Performed By: #### U RCX #### [facility] [address] [place] [address] Dr. Marvin Reis Glucose Ql (U) Negative Normal NEGATIVE [facility] Comment on above: Performed By: #### U RCX #### [facility] [address] [address] [address] Marvin Reis Hemoglobin Ql (U) SMALL Abnormal NEGATIVE The [facility] Comment on above: Performed By: #### U RCX #### [facility] [address] [place] [address] Dr. Marvin Reis Ketones Ql (U) Negative Normal NEGATIVE [facility] Comment on above: Performed By: #### U RCX #### [facility] [address] [address] [address] Marvin Reis LEUKOCYTES MODERATE Abnormal NEGATIVE The [facility] Comment on above: Performed By: #### U RCX #### [facility] [address] [place] [address] Dr. Marvin Reis MUCOUS NONE SEEN Normal NONE SEEN The [facility] Comment on above: Performed By: #### U RCX #### [facility] [address] [address] [address] Marvin Reis Nitrite Ql (U) Positive Abnormal NEGATIVE [facility] Comment on above: Performed By: #### U RCX #### [facility] [address] [place] [address] Dr. Marvin Reis pH (U) 6.0 [pH] Normal 5-9 [facility] Comment on above: Performed By: #### U RCX #### [facility] [address] [place] [address] Dr. Marvin Reis RBC 0-2 Normal 0-2 [facility] Comment on above: Performed By: #### U RCX #### [facility] [address] [address] [address] Marvin Reis SPEC GRAVITY 1.015 Normal 1.005-<=1.025 [facility] Comment on above: Performed By: #### U RCX #### [facility] [address] [place] [address] Dr. Marvin Reis UA PROTEIN Negative Normal NEGATIVE/ TRACE [facility] Comment on above: Performed By: #### U RCX #### [facility] [address] [place] [address] Dr. Marvin Reis Urobilinogen Qn (U) 0.2 {Robbie'U}/dL Normal 0.2 - 1. 0 [facility] Comment on above: Performed By: #### U RCX #### [facility] [address] [place] [address] Dr. Marvin Reis WBC 10-20 Abnormal NONE SEEN The [facility] Comment on above: Performed By: #### U RCX #### [facility] [address] [place] [address] Dr. Marvin Reis CULTURE URINEon 08-02-2022 CULTURE [...] Trimethoprim/Sulfamet hoxazole <=20 S F Normal The [facility] Comment on above: Performed By: #### U RCX #### [facility] [address] [place] [address] Dr. Marvin Reis UA RANDOM W/MICROSCOPICon BACTERIA MODERATE Abnormal NONE SEEN [facility] Comment on above: Performed By: #### U AMIC #### [facility] [address] [place] [address] Dr. Marvin Reis Bilirubin Ql (U) Negative Normal NEGATIVE [facility] Comment on above: Performed By: #### U AMIC #### [facility] [address] [place] [address] Dr. Marvin Reis CAST NONE SEEN Normal NONE SEEN [facility] Comment on above: Performed By: #### U AMIC #### [facility] [address] [place] [address] Dr. Marvin Reis Clarity (U) SL CLOUDY Abnormal CLEAR The [facility] Comment on above: Performed By: #### U AMIC #### [facility] [address] [place] [address] Dr. Marvin Reis Color (U) LT. YELLOW Normal YELLOW The [facility] Comment on above: Performed By: #### U AMIC #### [facility] [address] [place] [address] Dr. Marvin Reis Crystals LM Nom (Urine sed) NONE SEEN Normal NONE SEEN [facility] Comment on above: Performed By: #### U AMIC #### [facility] [address] [address] [address] Marvin Reis Epithelial cells LM Ql (Urine sed) NONE SEEN Normal NONE SEEN /RARE The [facility] Comment on above: Performed By: #### U AMIC #### [facility] [address] [address] [address] Marvin Reis Glucose Ql (U) Negative Normal NEGATIVE [facility] Comment on above: Performed By: #### U AMIC #### [facility] [address] [address] [address] Marvin Reis Hemoglobin Ql (U) TRACE-INTACT Abnormal NEGATIVE [facility] Comment on above: Performed By: #### U AMIC #### [facility] [address] [place] [address] Dr. Marvin Reis Ketones Ql (U) Negative Normal NEGATIVE [facility] Comment on above: Performed By: #### U AMIC #### [facility] [address] [address] [address] Marvin Reis LEUKOCYTES MODERATE Abnormal NEGATIVE [facility] Comment on above: Performed By: #### U AMIC #### [facility] [address] [address] [address] Marvin Reis MUCOUS NONE SEEN Normal NONE SEEN [facility] Comment on above: Performed By: #### U AMIC #### [facility] [address] [address] [address] Marvin Reis Nitrite Ql (U) Positive Abnormal NEGATIVE [facility] Comment on above: Performed By: #### U AMIC #### [facility] [address] [address] [address] Marvin Reis pH (U) 6.0 [pH] Normal 5-9 [facility] Comment on above: Performed By: #### U AMIC #### [facility] [address] [address] [address] Marvin Reis RBC 0-2 Normal 0-2 [facility] Comment on above: Performed By: #### U AMIC #### [facility] [address] [place] [address] Dr. Marvin Reis SPEC GRAVITY 1.015 Normal 1.005-<=1.025 [facility] Comment on above: Performed By: #### U AMIC #### [facility] [address] [place] [address] Dr. Marvin Reis UA PROTEIN Negative Normal NEGATIVE/ TRACE [facility] Comment on above: Performed By: #### U AMIC #### [facility] [address] [place] [address] Dr. Marvin Reis Urobilinogen Qn (U) 0.2 {Robbie'U}/dL Normal 0.2 - 1. 0 [facility] Comment on above: Performed By: #### U AMIC #### [facility] [address] [place] [address] Dr. Marvin Reis WBC 20-50 Abnormal NONE SEEN The [facility] Comment on above: Performed By: #### U AMIC #### [facility] [address] [place] [address] Dr. Marvin Reis CULTURE URINEon 06-27-2022 CULTURE [...] F Oxacillin >=4 R F Normal The [facility] Comment on above: Performed By: #### U AMIC #### [facility] [address] [place] [address] Dr. Marvin Reis UA RANDOM W/MICROSCOPICon BACTERIA LARGE Abnormal NONE SEEN The [facility] Comment on above: Performed By: #### U RCX #### [facility] [address] [address] [address] Marvin Reis Bilirubin Ql (U) Negative Normal NEGATIVE [facility] Comment on above: Performed By: #### U RCX #### [facility] [address] [address] [address] Marvin Reis CAST NONE SEEN Normal NONE SEEN [facility] Comment on above: Performed By: #### U RCX #### [facility] [address] [address] [address] Marvin Reis Clarity (U) CLEAR Normal CLEAR The [facility] Comment on above: Performed By: #### U RCX #### [facility] [address] [place] [address] Dr. Marvin Reis Color (U) LT. YELLOW Normal YELLOW The [facility] Comment on above: Performed By: #### U RCX #### [facility] [address] [place] [address] Dr. Marvin Reis Crystals LM Nom (Urine sed) NONE SEEN Normal NONE SEEN [facility] Comment on above: Performed By: #### U RCX #### [facility] [address] [address] [address] Marvin Reis Epithelial cells LM Ql (Urine sed) FEW Abnormal NONE SEEN /RARE The [facility] Comment on above: Performed By: #### U RCX #### [facility] [address] [place] [address] Dr. Marvin Reis Glucose Ql (U) Negative Normal NEGATIVE [facility] Comment on above: Performed By: #### U RCX #### [facility] [address] [address] [address] Marvin Reis Hemoglobin Ql (U) TRACE-INTACT Abnormal NEGATIVE [facility] Comment on above: Performed By: #### U RCX #### [facility] [address] [place] [address] Dr. Marvin Reis Ketones Ql (U) Negative Normal NEGATIVE [facility] Comment on above: Performed By: #### U RCX #### [facility] [address] [address] [address] Marvin Reis LEUKOCYTES LARGE Abnormal NEGATIVE The [facility] Comment on above: Performed By: #### U RCX #### [facility] [address] [place] [address] Dr. Marvni Reis MUCOUS NONE SEEN Normal NONE SEEN The [facility] Comment on above: Performed By: #### U RCX #### [facility] [address] [place] [address] Dr. Marvin Reis Nitrite Ql (U) Positive Abnormal NEGATIVE [facility] Comment on above: Performed By: #### U RCX #### [facility] [address] [place] [address] Dr. Marvin Reis pH (U) 5.5 [pH] Normal 5-9 [facility] Comment on above: Performed By: #### U RCX #### [facility] [address] [place] [address] Dr. Marvin Reis RBC 2-5 Abnormal 0-2 The [facility] Comment on above: Performed By: #### U RCX #### [facility] [address] [place] [address] Dr. Marvin Reis SPEC GRAVITY 1.015 Normal 1.005-<=1.025 [facility] Comment on above: Performed By: #### U RCX #### [facility] [address] [place] [address] Dr. Marvin Reis UA PROTEIN Negative Normal NEGATIVE/ TRACE [facility] Comment on above: Performed By: #### U RCX #### [facility] [address] [place] [address] Dr. Marvin Reis Urobilinogen Qn (U) 0.2 {Robbie'U}/dL Normal 0.2 - 1. 0 The [facility] Comment on above: Performed By: #### U RCX #### [facility] [address] [place] [address] Dr. Marvin Reis WBC (U) [#/Vol] /uL Abnormal NONE SEEN [facility] Comment on above: Performed By: #### U RCX #### [facility] [address] [place] [address] Dr. Marvin Reis CULTURE URINEon 05-27-2022 CULTURE [...] F Oxacillin >=4 R F Normal The [facility] Comment on above: Performed By: #### U RCX #### [facility] [address] [place] [address] Dr. Marvin Reis UA RANDOM W/MICROSCOPICon BACTERIA MODERATE Abnormal NONE SEEN The [facility] Comment on above: Performed By: #### U RCX #### [facility] [address] [place] [address] Dr. Marvin Reis Bilirubin Ql (U) Negative Normal NEGATIVE [facility] Comment on above: Performed By: #### U RCX #### [facility] [address] [place] [address] Dr. Marvin Reis CAST NONE SEEN Normal NONE SEEN [facility] Comment on above: Performed By: #### U RCX #### [facility] [address] [place] [address] Dr. Marvin Reis Clarity (U) SL CLOUDY Abnormal CLEAR The [facility] Comment on above: Performed By: #### U RCX #### [facility] [address] [place] [address] Dr. Marvin Reis Color (U) LT. YELLOW Normal YELLOW The [facility] Comment on above: Performed By: #### U RCX #### [facility] [address] [place] [address] Dr. Marvin Reis Crystals LM Nom (Urine sed) NONE SEEN Normal NONE SEEN The [facility] Comment on above: Performed By: #### U RCX #### [facility] [address] [address] [address] Marvin Reis Epithelial cells LM Ql (Urine sed) FEW Abnormal NONE SEEN /RARE The [facility] Comment on above: Performed By: #### U RCX #### [facility] [address] [address] [address] Marvin Reis Glucose Ql (U) Negative Normal NEGATIVE [facility] Comment on above: Performed By: #### U RCX #### [facility] [address] [address] [address] Marvin Reis Hemoglobin Ql (U) SMALL Abnormal NEGATIVE The [facility] Comment on above: Performed By: #### U RCX #### [facility] [address] [place] [address] Dr. Marvin Reis Ketones Ql (U) Negative Normal NEGATIVE The [facility] Comment on above: Performed By: #### U RCX #### [facility] [address] [address] [address] Marvin Reis LEUKOCYTES LARGE Abnormal NEGATIVE [facility] Comment on above: Performed By: #### U RCX #### [facility] [address] [address] [address] Marvin Reis MUCOUS TRACE Abnormal NONE SEEN [facility] Comment on above: Performed By: #### U RCX #### [facility] [address] [address] [address] Marvin Reis Nitrite Ql (U) Negative Normal NEGATIVE [facility] Comment on above: Performed By: #### U RCX #### [facility] [address] [address] [address] Marvin Reis pH (U) 6.0 [pH] Normal 5-9 [facility] Comment on above: Performed By: #### U RCX #### [facility] [address] [address] [address] Marvin Reis RBC 2-5 Abnormal 0-2 [facility] Comment on above: Performed By: #### U RCX #### [facility] [address] [address] [address] Marvin Reis SPEC GRAVITY 1.010 Normal 1.005-<=1.025 [facility] Comment on above: Performed By: #### U RCX #### [facility] [address] [address] [address] Marvin Reis UA PROTEIN Negative Normal NEGATIVE/ TRACE [facility] Comment on above: Performed By: #### U RCX #### [facility] [address] [address] [address] Marvin Reis Urobilinogen Qn (U) 0.2 {Robbie'U}/dL Normal 0.2 - 1. 0 [facility] Comment on above: Performed By: #### U RCX #### [facility] [address] [place] [address] Dr. Marvin Reis WBC 50-75 Abnormal NONE SEEN The [facility] Comment on above: Performed By: #### U RCX #### [facility] [address] [place] [address] Dr. Marvin Reis CULTURE URINEon 04-18-2022 CULTURE [...] F Oxacillin >=4 R F Normal The [facility] Comment on above: Performed By: #### U RCX #### [facility] [address] [address] [address] Marvin Reis UA RANDOM W/MICROSCOPICon BACTERIA TRACE Abnormal NONE SEEN The [facility] Comment on above: Performed By: #### U AMIC #### [facility] [address] [address] [address] Marvin Reis Bilirubin Ql (U) Negative Normal NEGATIVE [facility] Comment on above: Performed By: #### U AMIC #### [facility] [address] [address] [address] Marvin Reis CAST NONE SEEN Normal NONE SEEN The [facility] Comment on above: Performed By: #### U AMIC #### [facility] [address] [address] [address] Marvin Reis Clarity (U) CLEAR Normal CLEAR The [facility] Comment on above: Performed By: #### U AMIC #### [facility] [address] [address] [address] Marvin Reis Color (U) LT. YELLOW Normal YELLOW The [facility] Comment on above: Performed By: #### U AMIC #### [facility] [address] [address] [address] Marvin Reis Crystals LM Nom (Urine sed) NONE SEEN Normal NONE SEEN The [facility] Comment on above: Performed By: #### U AMIC #### [facility] [address] [address] [address] Marvin Reis Epithelial cells LM Ql (Urine sed) FEW Abnormal NONE SEEN /RARE The [facility] Comment on above: Performed By: #### U AMIC #### [facility] [address] [address] [address] Marvin Reis Glucose Ql (U) Negative Normal NEGATIVE [facility] Comment on above: Performed By: #### U AMIC #### [facility] [address] [address] [address] Marvin Reis Hemoglobin Ql (U) TRACE-INTACT Abnormal NEGATIVE [facility] Comment on above: Performed By: #### U AMIC #### [facility] [address] [address] [address] Marvin Reis Ketones Ql (U) Negative Normal NEGATIVE [facility] Comment on above: Performed By: #### U AMIC #### [facility] [address] [place] [address] Dr. Marvin Reis LEUKOCYTES SMALL Abnormal NEGATIVE The [facility] Comment on above: Performed By: #### U AMIC #### [facility] [address] [place] [address] Dr. Marvin Reis MUCOUS NONE SEEN Normal NONE SEEN The [facility] Comment on above: Performed By: #### U AMIC #### [facility] [address] [place] [address] Dr. Marvin Reis Nitrite Ql (U) Negative Normal NEGATIVE [facility] Comment on above: Performed By: #### U AMIC #### [facility] [address] [place] [address] Dr. Marvin Reis pH (U) 6.0 [pH] Normal 5-9 [facility] Comment on above: Performed By: #### U AMIC #### [facility] [address] [place] [address] Dr. Marvin Reis RBC 0-2 Normal 0-2 The [facility] Comment on above: Performed By: #### U AMIC #### [facility] [address] [place] [address] Dr. Marvin Reis SPEC GRAVITY 1.010 Normal 1.005-<=1.025 [facility] Comment on above: Performed By: #### U AMIC #### [facility] [address] [place] [address] Dr. Marvin Reis UA PROTEIN Negative Normal NEGATIVE/ TRACE [facility] Comment on above: Performed By: #### U AMIC #### [facility] [address] [place] [address] Dr. Marvin Reis Urobilinogen Qn (U) 0.2 {Robbie'U}/dL Normal 0.2 - 1. 0 [facility] Comment on above: Performed By: #### U AMIC #### [facility] [address] [place] [address] Dr. Marvin Reis WBC 2-5 Abnormal NONE SEEN The [facility] Comment on above: Performed By: #### U AMIC #### [facility] [address] [place] [address] Dr. Marvin Ries CULTURE URINEon 03-27-2022 CULTURE URINE Culture Observations [...] Trimethoprim/Sulfamet hoxazole >=320 R F Normal The [facility] Comment on above: Performed By: #### U RCX #### [facility] [address] [place] [address] Dr. Marvin Reis UA RANDOM W/MICROSCOPICon BACTERIA TRACE Abnormal NONE SEEN The [facility] Comment on above: Performed By: #### U RCX #### [facility] [address] [place] [address] Dr. Marvin Reis Bilirubin Ql (U) Negative Normal NEGATIVE [facility] Comment on above: Performed By: #### U RCX #### [facility] [address] [place] [address] Dr. Marvin Reis CAST NONE SEEN Normal NONE SEEN The [facility] Comment on above: Performed By: #### U RCX #### [facility] [address] [place] [address] Dr. Marvin Reis Clarity (U) CLEAR Normal CLEAR The [facility] Comment on above: Performed By: #### U RCX #### [facility] [address] [address] [address] Marvin Reis Color (U) LT. YELLOW Normal YELLOW The [facility] Comment on above: Performed By: #### U RCX #### [facility] [address] [place] [address] Dr. Marvin Reis Crystals LM Nom (Urine sed) NONE SEEN Normal NONE SEEN The [facility] Comment on above: Performed By: #### U RCX #### [facility] [address] [address] [address] Marvin Reis Epithelial cells LM Ql (Urine sed) FEW Abnormal NONE SEEN /RARE The [facility] Comment on above: Performed By: #### U RCX #### [facility] [address] [place] [address] Dr. Marvin Ries Glucose Ql (U) Negative Normal NEGATIVE [facility] Comment on above: Performed By: #### U RCX #### [facility] [address] [place] [address] Dr. Marvin Reis Hemoglobin Ql (U) SMALL Abnormal NEGATIVE The [facility] Comment on above: Performed By: #### U RCX #### [facility] [address] [place] [address] Dr. Marvin Reis Ketones Ql (U) Negative Normal NEGATIVE [facility] Comment on above: Performed By: #### U RCX #### [facility] [address] [place] [address] Dr. Marvin Reis LEUKOCYTES MODERATE Abnormal NEGATIVE The [facility] Comment on above: Performed By: #### U RCX #### [facility] [address] [place] [address] Dr. Marvin Reis MUCOUS NONE SEEN Normal NONE SEEN [facility] Comment on above: Performed By: #### U RCX #### [facility] [address] [place] [address] Dr. Marvin Reis Nitrite Ql (U) Negative Normal NEGATIVE [facility] Comment on above: Performed By: #### U RCX #### [facility] [address] [place] [address] Dr. Marvin Reis pH (U) 5.5 [pH] Normal 5-9 [facility] Comment on above: Performed By: #### U RCX #### [facility] [address] [place] [address] Dr. Marvin Reis RBC NONE SEEN Abnormal 0-2 The [facility] Comment on above: Performed By: #### U RCX #### [facility] [address] [place] [address] Dr. Marvin Reis SPEC GRAVITY 1.015 Normal 1.005-<=1.025 [facility] Comment on above: Performed By: #### U RCX #### [facility] [address] [place] [address] Dr. Marvin Reis UA PROTEIN Negative Normal NEGATIVE/ TRACE [facility] Comment on above: Performed By: #### U RCX #### [facility] [address] [place] [address] Dr. Marvin Reis Urobilinogen Qn (U) 0.2 {Robbie'U}/dL Normal 0.2 - 1. 0 [facility] Comment on above: Performed By: #### U RCX #### [facility] [address] [place] [address] Dr. Marvin Reis WBC 20-50 Abnormal NONE SEEN [facility] Comment on above: Performed By: #### U RCX #### [facility] [address] [place] [address] Dr. Marvin Reis YEAST PRESENT Abnormal NONE SEEN [facility] Comment on above: Performed By: #### U RCX #### [facility] [address] [place] [address] Dr. Marvin Reis CULTURE URINEon 03-18-2022 CULTURE URINE Culture Observations : No growth Normal The [facility] Comment on above: Performed By: #### U RCX #### [facility] [address] [place] [address] Dr. Marvin Reis UA RANDOM W/MICROSCOPICon BACTERIA NONE SEEN Normal NONE SEEN [facility] Comment on above: Performed By: #### U AMIC #### [facility] [address] [address] [address] Marvin Reis Bilirubin Ql (U) Negative Normal NEGATIVE [facility] Comment on above: Performed By: #### U AMIC #### [facility] [address] [address] [address] Marvin Reis CAST NONE SEEN Normal NONE SEEN [facility] Comment on above: Performed By: #### U AMIC #### [facility] [address] [place] [address] Dr. Marvin Reis Clarity (U) CLOUDY Abnormal CLEAR [facility] Comment on above: Performed By: #### U AMIC #### [facility] [address] [address] [address] Marvin Reis Color (U) LT. YELLOW Normal YELLOW [facility] Comment on above: Performed By: #### U AMIC #### [facility] [address] [place] [address] Dr. Marvin Reis Crystals LM Nom (Urine sed) NONE SEEN Normal NONE SEEN [facility] Comment on above: Performed By: #### U AMIC #### [facility] [address] [place] [address] Dr. Marvin Reis Epithelial cells LM Ql (Urine sed) RARE Normal NONE SEEN /RARE The [facility] Comment on above: Performed By: #### U AMIC #### [facility] [address] [place] [address] Dr. Marvin Reis Glucose Ql (U) Negative Normal NEGATIVE [facility] Comment on above: Performed By: #### U AMIC #### [facility] [address] [place] [address] Dr. Marvin Reis Hemoglobin Ql (U) TRACE-INTACT Abnormal NEGATIVE [facility] Comment on above: Performed By: #### U AMIC #### [facility] [address] [place] [address] Dr. Marvin Reis Ketones Ql (U) Negative Normal NEGATIVE [facility] Comment on above: Performed By: #### U AMIC #### [facility] [address] [place] [address] Dr. Marvin Reis LEUKOCYTES MODERATE Abnormal NEGATIVE The [facility] Comment on above: Performed By: #### U AMIC #### [facility] [address] [address] [address] Marvin Reis MUCOUS NONE SEEN Normal NONE SEEN The [facility] Comment on above: Performed By: #### U AMIC #### [facility] [address] [address] [address] Marvin Reis Nitrite Ql (U) Negative Normal NEGATIVE [facility] Comment on above: Performed By: #### U AMIC #### [facility] [address] [address] [address] Marvin Reis pH (U) 6.0 [pH] Normal 5-9 [facility] Comment on above: Performed By: #### U AMIC #### [facility] [address] [place] [address] Dr. Marvin Reis RBC NONE SEEN Abnormal 0-2 The [facility] Comment on above: Performed By: #### U AMIC #### [facility] [address] [place] [address] Dr. Marvin Reis SPEC GRAVITY 1.015 Normal 1.005-<=1.025 [facility] Comment on above: Performed By: #### U AMIC #### [facility] [address] [address] [address] Marvin Reis UA PROTEIN Negative Normal NEGATIVE/ TRACE [facility] Comment on above: Performed By: #### U AMIC #### [facility] [address] [address] [address] Marvin Reis Urobilinogen Qn (U) 0.2 {Robbie'U}/dL Normal 0.2 - 1. 0 [facility] Comment on above: Performed By: #### U AMIC #### [facility] [address] [place] [address] Dr. Marvin Reis WBC 10-20 Abnormal NONE SEEN The [facility] Comment on above: Performed By: #### U AMIC #### [facility] [address] [place] [address] Dr. Marvin Reis Coding Summary.on 06-21-2020 Coding Summary. CODING DATE: 06/21/2020 FINAL [facility] STATUS: PAYOR: Worker's Compensation ADMIT DX: [...] Hopper CphT Date Saved: 06/21/2020 12:01 pm [facility] PT - Assessmentson 0 PT - Assessments [id number]# 1.00CD:127 [facility] PT - Orderson 06-20-2020 PT - Orders [id number]# 1.00CD:127 [facility] PT - Workers Compon 06-20-20 20 PT - Workers Comp [id number]# 1.00CD:127 [facility] Encounters Encounter Date Encounter Type Care Provider Facility Start: 03-10-2023 End: 03-11-2023 [facility] Start: 03-03-2023 End: 03-03-[address] [...] Facility:[facility] Payers Date Payer Category Payer Medicare [id number] 1961 Unknown [id number] 1960 Unknown [id number] 2.16.84 0.1.932511.3.579.2.593 1960 Unknown [id number] 2.16.84 0.1.344016.3.579.2.593 1958 Unknown [id number] 2.16.84 0.1.487988.3.579.2.593 1958 Unknown [id number] 2.16.84 0.1.233346.3.579.2.593 1958 Unknown [id number] 2.16.84 0.1.383443.3.579.2.593 1958 Unknown [id number] 2.16.84 0.1.976546.3.579.2.593 1958 Unknown [id number] 2.16.84 0.1.308280.3.579.2.593 1958 Unknown [id number] 2.16.84 0.1.659818.3.579.2.593 1958 Unknown [id number] 2.16.84 0.1.016030.3.579.2.593 1958 Unknown [id number] 2.16.84 0.1.144822.3.579.2.593 1958 Unknown [id number] 2.16.84 0.1.547203.3.579.2.593 1958 Unknown [id number] 2.16.84 0.1.114671.3.579.2.593 1958 Unknown [id number] 2.16.84 0.1.091524.3.579.2.593 1958 Unknown [id number] 2.16.84 0.1.102447.3.579.2.593 1958 Unknown [id number] 2.16.84 0.1.381181.3.579.2.593 1958 Unknown [id number] 2.16.84 0.1.807285.3.579.2.593 1958 Unknown [id number] 2.16.84 0.1.855585.3.579.2.593 1958 Unknown [id number] 2.16.84 0.1.110179.3.579.2.593 1958 Unknown [id number] 2.16.84 0.1.409092.3.579.2.593 Summary Purpose Family History No Family History [...] and content) DATE CREATED AUTHOR 09/19/2020 [facility] DATE CREATED AUTHOR AUTHOR'S ORGANIZ ATION 03/06/2023 [facility] DATE CREATED AUTHOR AUTHOR'S ORGANIZ ATION 03/11/2023 [facility] DATE CREATED AUTHOR AUTHOR'S ORGANIZ ATION 06/07/2023 [facility] FOR RECORDS PERTAINING TO PATIENTS WHO ARE [...] BE BASED ON THE PRIMARY CLINICAL RECORDS. [employer] [facility]. provides no warranty or guarantee of the accuracy or completeness of information in this document.
== END 2024-08-12 14:55 | disposition home or self-care (01) ==
LOC: US 14:54
PROVIDERS: PCP Family Medicine; Visit Provider Family Medicine
DX: N28.9 Disorder of kidney and ureter, unspecified (principal)
CPT/HCPCS: 76775

== ENCOUNTER 2024-08-14 11:29 | Outpatient (REF) | payer SELFPAY ==
--- OUTSIDE RECORDS SUMMARY | 2024-08-14 11:32 | XMS_ITS | CCD ---
Author Organization [facility] Care Team Providers Care Credit Collection Specialist Name Role Phone HOY ., DR WEBBER [...] Unavailable HOY ., DR WEBBER Admherman Unavailable [place] ROBLES, DR MAGY [employer] Unavailable HOY ., [...] DR WEBBER Attending Unavailable HOY ., DR WEBBRE Primary Care [...] source) ceFAZolin Drug Allergy 04-21-20 13 [facility] (1 source) Cilastatin / Imipenem Drug Allergy 04-21-20 13 [facility] (1 source) Readi-Cat Drug allergy (disorder) 04-21-20 13 [facility] (1 source) ceFAZolin; Translations: [CEFAZOLIN] Drug Allergy 12-01-19 13 [facility] (1 source) Cephalexin; Translations: [CEPHALEXIN MONOHYDRATE] Drug Allergy 08-03-20 09 [facility] (1 source) Promazine; Translations: [PROMAZINE] Drug Allergy 12-01-19 13 [facility] (1 source) Sulfamethoxazole / Trimethoprim; Translations: [SULFAMETHOXAZOLE-TR IMETHOPRIM] Drug Allergy 03-10-20 23 [facility] (1 source) IODINATED CONTRAST MEDIA; Translations: [IODINATED CONTRAST MEDIA] Propensity to adverse reactions to drug (disorder) 12-01-19 13 [facility] Repository Problems Active Problems Problem [...] RESISTANT TO ALL B-LACTAM DRUGS. PERFORMED BY: [place] [address] PATHOLOGIST SUPERVISOR CUTTING AND BONING MARLA VEGA M.D. [facility] Comment on above: Performed By: #### A MAI LAYNE #### [place] [id number] [place] Gram Stainon 06-03-2023 Microscopic observation Gram stain Nom (Unsp spec) Gram Stain Result No Bacteria Seen PERFORMED BY: [place] [address] PATHOLOGIST SUPERVISOR CUTTING AND BONING MARLA VEGA M.D. [facility] Comment on above: Performed By: #### A MAI LAYNE #### [place] [id number] [place] CULTURE URINEon 03-06-2023 CULTURE URINE Isolate [...] F Levofloxacin 2 S F Normal [facility] Comment on above: Performed By: #### U RCX #### [facility] [address] [place] [address] Dr. Marvin eRis UA RANDOM W/MICROSCOPICon BACTERIA SMALL Abnormal NONE SEEN [facility] Comment on above: Performed By: #### U AMIC #### [facility] [address] [place] [address] Dr. Marvin Reis Bilirubin Ql (U) Negative Normal NEGATIVE [facility] Comment on above: Performed By: #### U AMIC #### [facility] [address] [place] [address] Dr. Marvin Reis CAST NONE SEEN Normal NONE SEEN [facility] Comment on above: Performed By: #### U AMIC #### [facility] [address] [place] [address] Dr. Marvin Reis Clarity (U) CLEAR Normal CLEAR [facility] Comment on above: Performed By: #### U AMIC #### [facility] [address] [place] [address] Dr. Marvin Reis Color (U) LT. YELLOW Normal YELLOW [facility] Comment on above: Performed By: #### U AMIC #### [facility] [address] [address] [address] Marvin Reis Crystals LM Nom (Urine sed) NONE SEEN Normal NONE SEEN [facility] Comment on above: Performed By: #### U AMIC #### [facility] [address] [place] [address] Dr. Marvin Reis Epithelial cells LM Ql (Urine sed) RARE Normal NONE SEEN /RARE [facility] Comment on above: Performed By: #### U AMIC #### [facility] [address] [address] [address] Marvin Reis Glucose Ql (U) Negative Normal NEGATIVE [facility] Comment on above: Performed By: #### U AMIC #### [facility] [address] [place] [address] Dr. Marvin Reis Hemoglobin Ql (U) Negative Normal NEGATIVE [facility] Comment on above: Performed By: #### U AMIC #### [facility] [address] [place] [address] Dr. Marvin Reis Ketones Ql (U) Negative Normal NEGATIVE [facility] Comment on above: Performed By: #### U AMIC #### [facility] [address] [place] [address] Dr. Marvin Reis LEUKOCYTES SMALL Abnormal NEGATIVE [facility] Comment on above: Performed By: #### U AMIC #### [facility] [address] [place] [address] Dr. Marvin Reis MUCOUS NONE SEEN Normal NONE SEEN [facility] Comment on above: Performed By: #### U AMIC #### [facility] [address] [place] [address] Dr. Marvin Reis Nitrite Ql (U) Negative Normal NEGATIVE [facility] Comment on above: Performed By: #### U AMIC #### [facility] [address] [place] [address] Dr. Marvin Reis pH (U) 6.0 [pH] Normal 5-9 [facility] Comment on above: Performed By: #### U AMIC #### [facility] [address] [place] [address] Dr. Marvin Reis RBC 0-2 Normal 0-2 [facility] Comment on above: Performed By: #### U AMIC #### [facility] [address] [place] [address] Dr. Marvin Reis SPEC GRAVITY 1.010 Normal 1.005-<=1.025 [facility] Comment on above: Performed By: #### U AMIC #### [facility] [address] [address] [address] Marvin Reis UA PROTEIN Negative Normal NEGATIVE/ TRACE [facility] Comment on above: Performed By: #### U AMIC #### [facility] [address] [place] [address] Dr. Marvin Reis Urobilinogen Qn (U) 0.2 {Robbie'U}/dL Normal 0.2 - 1. 0 [facility] Comment on above: Performed By: #### U AMIC #### [facility] [address] [place] [address] Dr. Marvin Reis WBC 5-10 Abnormal NONE SEEN [facility] Comment on above: Performed By: #### U AMIC #### [facility] [address] [place] [address] Dr. Marvin Reis CULTURE URINEon 02-13-2023 CULTURE [...] F Levofloxacin 2 S F Normal [facility] Comment on above: Performed By: #### U RCX #### [facility] [address] [place] [address] Dr. Marvin Reis UA RANDOM W/MICROSCOPICon BACTERIA MODERATE Abnormal NONE SEEN [facility] Comment on above: Performed By: #### U AMIC #### [facility] [address] [place] [address] Dr. Marvin Reis Bilirubin Ql (U) Negative Normal NEGATIVE [facility] Comment on above: Performed By: #### U AMIC #### [facility] [address] [place] [address] Dr. Marvin Reis CAST NONE SEEN Normal NONE SEEN [facility] Comment on above: Performed By: #### U AMIC #### [facility] [address] [place] [address] Dr. Marvin Reis Clarity (U) CLEAR Normal CLEAR [facility] Comment on above: Performed By: #### U AMIC #### [facility] [address] [place] [address] Dr. Marvin Reis Color (U) LT. YELLOW Normal YELLOW [facility] Comment on above: Performed By: #### U AMIC #### [facility] [address] [place] [address] Dr. Marvin Reis Crystals LM Nom (Urine sed) NONE SEEN Normal NONE SEEN [facility] Comment on above: Performed By: #### U AMIC #### [facility] [address] [place] [address] Dr. Marvin Reis Epithelial cells LM Ql (Urine sed) MODERATE Abnormal NONE SEEN /RARE [facility] Comment on above: Performed By: #### U AMIC #### [facility] [address] [place] [address] Dr. Marvin Reis Glucose Ql (U) Negative Normal NEGATIVE [facility] Comment on above: Performed By: #### U AMIC #### [facility] [address] [place] [address] Dr. Marvin Reis Hemoglobin Ql (U) SMALL Abnormal NEGATIVE [facility] Comment on above: Performed By: #### U AMIC #### [facility] [address] [address] [address] Marvin Reis Ketones Ql (U) Negative Normal NEGATIVE [facility] Comment on above: Performed By: #### U AMIC #### [facility] [address] [address] [address] Marvin Reis LEUKOCYTES LARGE Abnormal NEGATIVE [facility] Comment on above: Performed By: #### U AMIC #### [facility] [address] [address] [address] Marvin Reis MUCOUS NONE SEEN Normal NONE SEEN [facility] Comment on above: Performed By: #### U AMIC #### [facility] [address] [place] [address] Dr. Marvin Reis Nitrite Ql (U) Positive Abnormal NEGATIVE [facility] Comment on above: Performed By: #### U AMIC #### [facility] [address] [address] [address] Marvin Reis pH (U) 5.5 [pH] Normal 5-9 [facility] Comment on above: Performed By: #### U AMIC #### [facility] [address] [address] [address] Marvin Reis RBC 5-10 Abnormal 0-2 [facility] Comment on above: Performed By: #### U AMIC #### [facility] [address] [address] [address] Marvin Reis SPEC GRAVITY 1.015 Normal 1.005-<=1.025 [facility] Comment on above: Performed By: #### U AMIC #### [facility] [address] [address] [address] Marvin Reis UA PROTEIN Negative Normal NEGATIVE/ TRACE [facility] Comment on above: Performed By: #### U AMIC #### [facility] [address] [place] [address] Dr. Marvin Reis Urobilinogen Qn (U) 0.2 {Robbie'U}/dL Normal 0.2 - 1. 0 [facility] Comment on above: Performed By: #### U AMIC #### [facility] [address] [place] [address] Dr. Marvin Reis WBC 50-75 Abnormal NONE SEEN [facility] Comment on above: Performed By: #### U AMIC #### [facility] [id number] Marvin Reis CULTURE URINEon 01-23-2023 CULTURE [...] Trimethoprim/Sulfamet hoxazole <=10 S F Normal [facility] Comment on above: Performed By: #### U AMIC #### [facility] [address] [place] [address] Dr. Marvin Reis UA RANDOM W/MICROSCOPICon BACTERIA TRACE Abnormal NONE SEEN [facility] Comment on above: Performed By: #### U AMIC #### [facility] [address] [place] [address] Dr. Marvin Reis Bilirubin Ql (U) Negative Normal NEGATIVE [facility] Comment on above: Performed By: #### U AMIC #### [facility] [address] [address] [address] Marvin Reis CAST NONE SEEN Normal NONE SEEN [facility] Comment on above: Performed By: #### U AMIC #### [facility] [address] [address] [address] Marvin Reis Clarity (U) SL CLOUDY Abnormal CLEAR [facility] Comment on above: Performed By: #### U AMIC #### [facility] [address] [address] [address] Marvin Reis Color (U) LT. YELLOW Normal YELLOW [facility] Comment on above: Performed By: #### U AMIC #### [facility] [address] [place] [address] Dr. Marvin Reis Crystals LM Nom (Urine sed) NONE SEEN Normal NONE SEEN [facility] Comment on above: Performed By: #### U AMIC #### [facility] [address] [place] [address] Dr. Marvin Reis Epithelial cells LM Ql (Urine sed) NONE SEEN Normal NONE SEEN /RARE [facility] Comment on above: Performed By: #### U AMIC #### [facility] [address] [place] [address] Dr. Marvin Reis Glucose Ql (U) Negative Normal NEGATIVE [facility] Comment on above: Performed By: #### U AMIC #### [facility] [address] [address] [address] Marvin Reis Hemoglobin Ql (U) Negative Normal NEGATIVE [facility] Comment on above: Performed By: #### U AMIC #### [facility] [address] [address] [address] Marvin Reis Ketones Ql (U) Negative Normal NEGATIVE [facility] Comment on above: Performed By: #### U AMIC #### [facility] [address] [place] [address] Dr. Marvin Reis LEUKOCYTES TRACE Abnormal NEGATIVE [facility] Comment on above: Performed By: #### U AMIC #### [facility] [address] [address] [address] Marvin Reis MUCOUS NONE SEEN Normal NONE SEEN [facility] Comment on above: Performed By: #### U AMIC #### [facility] [address] [place] [address] Dr. Marvin Reis Nitrite Ql (U) Negative Normal NEGATIVE [facility] Comment on above: Performed By: #### U AMIC #### [facility] [address] [place] [address] Dr. Marvin Reis pH (U) 6.0 [pH] Normal 5-9 [facility] Comment on above: Performed By: #### U AMIC #### [facility] [address] [place] [address] Dr. Marvin Reis RBC NONE SEEN Abnormal 0-2 [facility] Comment on above: Performed By: #### U AMIC #### [facility] [address] [place] [address] Dr. Marvin Reis SPEC GRAVITY 1.020 Normal 1.005-<=1.025 [facility] Comment on above: Performed By: #### U AMIC #### [facility] [address] [place] [address] Dr. Marvin Reis UA PROTEIN Negative Normal NEGATIVE/ TRACE [facility] Comment on above: Performed By: #### U AMIC #### [facility] [address] [place] [address] Dr. Marvin Reis Urobilinogen Qn (U) 0.2 {Robbie'U}/dL Normal 0.2 - 1. 0 [facility] Comment on above: Performed By: #### U AMIC #### [facility] [address] [place] [address] Dr. Marvin Reis WBC 10-20 Abnormal NONE SEEN [facility] Comment on above: Performed By: #### U AMIC #### [facility] [address] [place] [address] Dr. Marvin Reis CULTURE URINEon 01-07-2023 CULTURE URINE Isolate 1 Dawna albicans 10,000 cfu/mL of Normal [facility] Comment on above: Performed By: #### U RCX #### [facility] [address] [address] [address] Marvin Reis UA RANDOM W/MICROSCOPICon BACTERIA TRACE Abnormal NONE SEEN [facility] Comment on above: Performed By: #### U AMIC #### [facility] [address] [address] [address] Marvin Reis Bilirubin Ql (U) Negative Normal NEGATIVE [facility] Comment on above: Performed By: #### U AMIC #### [facility] [address] [address] [address] Marvin Reis CA OX CRYSTALS RARE Normal [facility] Comment on above: Performed By: #### U AMIC #### [facility] [address] [address] [address] Marvin Reis CAST NONE SEEN Normal NONE SEEN [facility] Comment on above: Performed By: #### U AMIC #### [facility] [address] [address] [address] Marvin Reis Clarity (U) CLEAR Normal CLEAR [facility] Comment on above: Performed By: #### U AMIC #### [facility] [address] [address] [address] Marvin Reis Color (U) LT. YELLOW Normal YELLOW [facility] Comment on above: Performed By: #### U AMIC #### [facility] [address] [address] [address] Marvin Reis Crystals LM Nom (Urine sed) SEEN Abnormal NONE SEEN [facility] Comment on above: Performed By: #### U AMIC #### [facility] [address] [address] [address] Marvin Reis Epithelial cells LM Ql (Urine sed) FEW Abnormal NONE SEEN /RARE [facility] Comment on above: Performed By: #### U AMIC #### [facility] [address] [address] [address] Marvin Reis Glucose Ql (U) Negative Normal NEGATIVE [facility] Comment on above: Performed By: #### U AMIC #### [facility] [address] [address] [address] Marvin Reis Hemoglobin Ql (U) Negative Normal NEGATIVE [facility] Comment on above: Performed By: #### U AMIC #### [facility] [address] [address] [address] Marvin Reis Ketones Ql (U) Negative Normal NEGATIVE [facility] Comment on above: Performed By: #### U AMIC #### [facility] [address] [address] [address] Marvin Reis LEUKOCYTES SMALL Abnormal NEGATIVE [facility] Comment on above: Performed By: #### U AMIC #### [facility] [address] [place] [address] Dr. Marvin Reis MUCOUS NONE SEEN Normal NONE SEEN [facility] Comment on above: Performed By: #### U AMIC #### [facility] [address] [place] [address] Dr. Marvin Reis Nitrite Ql (U) Negative Normal NEGATIVE [facility] Comment on above: Performed By: #### U AMIC #### [facility] [address] [place] [address] Dr. Marvin Reis pH (U) 5.5 [pH] Normal 5-9 [facility] Comment on above: Performed By: #### U AMIC #### [facility] [address] [place] [address] Dr. Marvin Reis RBC 0-2 Normal 0-2 [facility] Comment on above: Performed By: #### U AMIC #### [facility] [address] [place] [address] Dr. Marvin Reis SPEC GRAVITY 1.015 Normal 1.005-<=1.025 [facility] Comment on above: Performed By: #### U AMIC #### [facility] [address] [place] [address] Dr. Marvin Reis UA PROTEIN Negative Normal NEGATIVE/ TRACE [facility] Comment on above: Performed By: #### U AMIC #### [facility] [address] [place] [address] Dr. Marvin Reis Urobilinogen Qn (U) 0.2 {Robbie'U}/dL Normal 0.2 - 1. 0 [facility] Comment on above: Performed By: #### U AMIC #### [facility] [address] [place] [address] Dr. Marvin Reis WBC 50-75 Abnormal NONE SEEN [facility] Comment on above: Performed By: #### U AMIC #### [facility] [address] [place] [address] Dr. Marvin Reis YEAST PRESENT Abnormal NONE SEEN [facility] Comment on above: Performed By: #### U AMIC #### [facility] [address] [place] [address] Dr. Marvin Reis CULTURE URINEon 12-25-2022 CULTURE [...] Trimethoprim/Sulfamet hoxazole >=320 R F Normal [facility] Comment on above: Performed By: #### U RCX #### [facility] [address] [place] [address] Dr. Marvin Reis UA RANDOM W/MICROSCOPICon BACTERIA NONE SEEN Normal NONE SEEN [facility] Comment on above: Performed By: #### U AMIC #### [facility] [address] [place] [address] Dr. Marvin Reis Bilirubin Ql (U) Negative Normal NEGATIVE [facility] Comment on above: Performed By: #### U AMIC #### [facility] [address] [place] [address] Dr. Marvin Reis CAST NONE SEEN Normal NONE SEEN [facility] Comment on above: Performed By: #### U AMIC #### [facility] [address] [place] [address] Dr. Marvin Reis Clarity (U) CLEAR Normal CLEAR [facility] Comment on above: Performed By: #### U AMIC #### [facility] [address] [address] [address] Marvin Reis Color (U) LT. YELLOW Normal YELLOW [facility] Comment on above: Performed By: #### U AMIC #### [facility] [address] [place] [address] Dr. Marvin Reis Crystals LM Nom (Urine sed) NONE SEEN Normal NONE SEEN [facility] Comment on above: Performed By: #### U AMIC #### [facility] [address] [place] [address] Dr. Marvin Reis Epithelial cells LM Ql (Urine sed) RARE Normal NONE SEEN /RARE [facility] Comment on above: Performed By: #### U AMIC #### [facility] [address] [place] [address] Dr. Marvin Reis Glucose Ql (U) Negative Normal NEGATIVE [facility] Comment on above: Performed By: #### U AMIC #### [facility] [address] [place] [address] Dr. Marvin Reis Hemoglobin Ql (U) Negative Normal NEGATIVE [facility] Comment on above: Performed By: #### U AMIC #### [facility] [address] [address] [address] Marvin Reis Ketones Ql (U) Negative Normal NEGATIVE [facility] Comment on above: Performed By: #### U AMIC #### [facility] [address] [place] [address] Dr. Marvin Reis LEUKOCYTES MODERATE Abnormal NEGATIVE [facility] Comment on above: Performed By: #### U AMIC #### [facility] [address] [place] [address] Dr. Marivn Reis MUCOUS NONE SEEN Normal NONE SEEN [facility] Comment on above: Performed By: #### U AMIC #### [facility] [address] [place] [address] Dr. Marvin Reis Nitrite Ql (U) Negative Normal NEGATIVE [facility] Comment on above: Performed By: #### U AMIC #### [facility] [address] [place] [address] Dr. Marvin Reis pH (U) 5.5 [pH] Normal 5-9 [facility] Comment on above: Performed By: #### U AMIC #### [facility] [address] [place] [address] Dr. Marvin Reis RBC NONE SEEN Abnormal 0-2 [facility] Comment on above: Performed By: #### U AMIC #### [facility] [address] [place] [address] Dr. Marvin Reis SPEC GRAVITY 1.015 Normal 1.005-<=1.025 [facility] Comment on above: Performed By: #### U AMIC #### [facility] [address] [place] [address] Dr. Marvin Reis UA PROTEIN Negative Normal NEGATIVE/ TRACE [facility] Comment on above: Performed By: #### U AMIC #### [facility] [address] [place] [address] Dr. Marvin Reis Urobilinogen Qn (U) 0.2 {Robbie'U}/dL Normal 0.2 - 1. 0 [facility] Comment on above: Performed By: #### U AMIC #### [facility] [address] [place] [address] Dr. Marvin Reis WBC 10-20 Abnormal NONE SEEN [facility] Comment on above: Performed By: #### U AMIC #### [facility] [address] [place] [address] Dr. Marvin Reis CULTURE URINEon 12-05-2022 CULTURE [...] Trimethoprim/Sulfamet hoxazole <=20 S F Normal [facility] Comment on above: Performed By: #### U RCX #### [facility] [address] [place] [address] Dr. Marvin Reis CREATININEon 12-03-2022 Creatinine [Mass/Vol] 0.88 mg/dL Normal 0.70-1.30 [facility] Comment on above: Performed By: #### U RCX #### [facility] [address] [place] [address] Dr. Marvin Reis EGFR-AF FRENCH >60 Normal >=60 [facility] Comment on above: Performed By: #### U RCX #### [facility] [address] [place] [address] Dr. Marvin Reis EGFR-NON AF FRENCH >60 Normal >=60 [facility] Comment on above: Performed By: #### U RCX #### [facility] [address] [place] [address] ABDOMEN WO/W CONon [...] ELENO PARKER Date: 2022-12-03 14:51 Normal [facility] UA RANDOM W/MICROSCOPICon BACTERIA TRACE Abnormal NONE SEEN [facility] Comment on above: Performed By: #### U RCX #### [facility] [address] [place] [address] Dr. Marvin Reis Bilirubin Ql (U) Negative Normal NEGATIVE [facility] Comment on above: Performed By: #### U RCX #### [facility] [address] [place] [address] Dr. Marvin Reis CAST NONE SEEN Normal NONE SEEN [facility] Comment on above: Performed By: #### U RCX #### [facility] [address] [place] [address] Dr. Marvin Reis Clarity (U) CLEAR Normal CLEAR [facility] Comment on above: Performed By: #### U RCX #### [facility] [address] [place] [address] Dr. Marvin Reis Color (U) LT. YELLOW Normal YELLOW [facility] Comment on above: Performed By: #### U RCX #### [facility] [address] [place] [address] Dr. Marvin Reis Crystals LM Nom (Urine sed) NONE SEEN Normal NONE SEEN [facility] Comment on above: Performed By: #### U RCX #### [facility] [address] [place] [address] Dr. Marvin Reis Epithelial cells LM Ql (Urine sed) RARE Normal NONE SEEN /RARE [facility] Comment on above: Performed By: #### U RCX #### [facility] [address] [address] [address] Marvin Reis Glucose Ql (U) Negative Normal NEGATIVE [facility] Comment on above: Performed By: #### U RCX #### [facility] [address] [address] [address] Marvin Reis Hemoglobin Ql (U) TRACE-INTACT Abnormal NEGATIVE [facility] Comment on above: Performed By: #### U RCX #### [facility] [address] [address] [address] Marvin Reis Ketones Ql (U) Negative Normal NEGATIVE [facility] Comment on above: Performed By: #### U RCX #### [facility] [address] [place] [address] Dr. Marvin Reis LEUKOCYTES TRACE Abnormal NEGATIVE [facility] Comment on above: Performed By: #### U RCX #### [facility] [address] [address] [address] Marvin Reis MUCOUS TRACE Abnormal NONE SEEN [facility] Comment on above: Performed By: #### U RCX #### [facility] [address] [place] [address] Dr. Marvin Reis Nitrite Ql (U) Negative Normal NEGATIVE [facility] Comment on above: Performed By: #### U RCX #### [facility] [address] [address] [address] Marvin Reis pH (U) 5.0 [pH] Normal 5-9 [facility] Comment on above: Performed By: #### U RCX #### [facility] [address] [address] [address] Marvin Reis RBC 0-2 Normal 0-2 [facility] Comment on above: Performed By: #### U RCX #### [facility] [address] [place] [address] Dr. Marvin Reis SPEC GRAVITY 1.010 Normal 1.005-<=1.025 [facility] Comment on above: Performed By: #### U RCX #### [facility] [address], [place] [address] Dr. Marvin Reis UA PROTEIN TRACE Normal NEGATIVE/ TRACE [facility] Comment on above: Performed By: #### U RCX #### [facility] [address], [place] [address] Dr. Marvin Reis Urobilinogen Qn (U) 0.2 {Robbie'U}/dL Normal 0.2 - 1. 0 [facility] Comment on above: Performed By: #### U RCX #### [facility] [address] [address] [address] Marvin Reis WBC 2-5 Abnormal NONE SEEN [facility] Comment on above: Performed By: #### U RCX #### [facility] [address] ABD/PELVIS WO CONon [...] MAGY COMER Date: 2022-11-20 14:51 Normal [facility] CULTURE URINEon 11-11-2022 CULTURE URINE Culture Observations : GUSTABO TO FOLLOW. Isolate 1 Enterobacter aerogenes >100,000 cfu/mL of Normal [facility] Comment on above: Performed By: #### U RCX #### [facility] [address] [place] [address] Dr. Marvin Reis UA RANDOM W/MICROSCOPICon BACTERIA SMALL Abnormal NONE SEEN [facility] Comment on above: Performed By: #### U AMIC #### [facility] [address] [place] [address] Dr. Marvin Reis Bilirubin Ql (U) Negative Normal NEGATIVE [facility] Comment on above: Performed By: #### U AMIC #### [facility] [address] [place] [address] Dr. Marvin Reis CAST NONE SEEN Normal NONE SEEN [facility] Comment on above: Performed By: #### U AMIC #### [facility] [address] [place] [address] Dr. Marvin Reis Clarity (U) CLOUDY Abnormal CLEAR [facility] Comment on above: Performed By: #### U AMIC #### [facility] [address] [place] [address] Dr. Marvin Reis Color (U) LT. YELLOW Normal YELLOW [facility] Comment on above: Performed By: #### U AMIC #### [facility] [address] [address] [address] Marvin Reis Crystals LM Nom (Urine sed) NONE SEEN Normal NONE SEEN [facility] Comment on above: Performed By: #### U AMIC #### [facility] [address] [address] [address] Marvin Reis Epithelial cells LM Ql (Urine sed) NONE SEEN Normal NONE SEEN /RARE [facility] Comment on above: Performed By: #### U AMIC #### [facility] [address] [address] [address] Marvin Reis Glucose Ql (U) Negative Normal NEGATIVE [facility] Comment on above: Performed By: #### U AMIC #### [facility] [address] [place] [address] Dr. Marvin Reis Hemoglobin Ql (U) TRACE-INTACT Abnormal NEGATIVE [facility] Comment on above: Performed By: #### U AMIC #### [facility] [address] [address] [address] Marvin Reis Ketones Ql (U) Negative Normal NEGATIVE [facility] Comment on above: Performed By: #### U AMIC #### [facility] [address] [address] [address] Marvin Reis LEUKOCYTES LARGE Abnormal NEGATIVE [facility] Comment on above: Performed By: #### U AMIC #### [facility] [address] [address] [address] Marvin Reis MUCOUS NONE SEEN Normal NONE SEEN [facility] Comment on above: Performed By: #### U AMIC #### [facility] [address] [place] [address] Dr. Marvin Reis Nitrite Ql (U) Positive Abnormal NEGATIVE [facility] Comment on above: Performed By: #### U AMIC #### [facility] [address] [place] [address] Dr. Marvin Reis pH (U) 5.5 [pH] Normal 5-9 [facility] Comment on above: Performed By: #### U AMIC #### [facility] [address] [place] [address] Dr. Marvin Reis RBC 0-2 Normal 0-2 [facility] Comment on above: Performed By: #### U AMIC #### [facility] [address] [place] [address] Dr. Marvin Reis SPEC GRAVITY 1.015 Normal 1.005-<=1.025 [facility] Comment on above: Performed By: #### U AMIC #### [facility] [address] [place] [address] Dr. Marvin Reis UA PROTEIN Negative Normal NEGATIVE/ TRACE [facility] Comment on above: Performed By: #### U AMIC #### [facility] [address] [place] [address] Dr. Marvin Reis Urobilinogen Qn (U) 0.2 {Robbie'U}/dL Normal 0.2 - 1. 0 [facility] Comment on above: Performed By: #### U AMIC #### [facility] [address] [place] [address] Dr. Marvin Reis WBC 10-20 Abnormal NONE SEEN [facility] Comment on above: Performed By: #### U AMIC #### [facility] [address] [place] [address] Dr. Marvin Reis CULTURE URINEon 10-24-2022 CULTURE [...] Trimethoprim/Sulfamet hoxazole <=20 S F Normal [facility] Comment on above: Performed By: #### U RCX #### [facility] [address] [place] [address] Dr. Marvin Reis UA RANDOM W/MICROSCOPICon BACTERIA LARGE Abnormal NONE SEEN [facility] Comment on above: Performed By: #### U AMIC #### [facility] [address] [address] [address] Marvin Reis Bilirubin Ql (U) Negative Normal NEGATIVE [facility] Comment on above: Performed By: #### U AMIC #### [facility] [address] [address] [address] Marvin Reis CAST NONE SEEN Normal NONE SEEN [facility] Comment on above: Performed By: #### U AMIC #### [facility] [address] [address] [address] Marvin Reis Clarity (U) SL CLOUDY Abnormal CLEAR [facility] Comment on above: Performed By: #### U AMIC #### [facility] [address] [address] [address] Marvin Reis Color (U) YELLOW Normal YELLOW [facility] Comment on above: Performed By: #### U AMIC #### [facility] [address] [address] [address] Marvin Reis Crystals LM Nom (Urine sed) NONE SEEN Normal NONE SEEN [facility] Comment on above: Performed By: #### U AMIC #### [facility] [address] [address] [address] Marvin Reis Epithelial cells LM Ql (Urine sed) FEW Abnormal NONE SEEN /RARE [facility] Comment on above: Performed By: #### U AMIC #### [facility] [address] [address] [address] Marvin Reis Glucose Ql (U) Negative Normal NEGATIVE [facility] Comment on above: Performed By: #### U AMIC #### [facility] [address] [address] [address] Marvin Reis Hemoglobin Ql (U) TRACE-INTACT Abnormal NEGATIVE [facility] Comment on above: Performed By: #### U AMIC #### [facility] [address] [address] [address] Marvin Reis Ketones Ql (U) Negative Normal NEGATIVE [facility] Comment on above: Performed By: #### U AMIC #### [facility] [address] [address] [address] Marvin Reis LEUKOCYTES LARGE Abnormal NEGATIVE [facility] Comment on above: Performed By: #### U AMIC #### [facility] [address] [address] [address] Marvin Reis MUCOUS NONE SEEN Normal NONE SEEN [facility] Comment on above: Performed By: #### U AMIC #### [facility] [address] [address] [address] Marvin Reis Nitrite Ql (U) Negative Normal NEGATIVE [facility] Comment on above: Performed By: #### U AMIC #### [facility] [address] [address] [address] Marvin Reis pH (U) 5.0 [pH] Normal 5-9 [facility] Comment on above: Performed By: #### U AMIC #### [facility] [address] [address] [address] Marvin Reis RBC 5-10 Abnormal 0-2 [facility] Comment on above: Performed By: #### U AMIC #### [facility] [address] [address] [address] Marvin Reis SPEC GRAVITY 1.010 Normal 1.005-<=1.025 [facility] Comment on above: Performed By: #### U AMIC #### [facility] [address] [place] [address] Dr. Marvin Reis UA PROTEIN Negative Normal NEGATIVE/ TRACE [facility] Comment on above: Performed By: #### U AMIC #### [facility] [address] [place] [address] Dr. Marvin Reis Urobilinogen Qn (U) 0.2 {Robbie'U}/dL Normal 0.2 - 1. 0 [facility] Comment on above: Performed By: #### U AMIC #### [facility] [address] [address] [address] Marvin Reis WBC 50-75 Abnormal NONE SEEN [facility] Comment on above: Performed By: #### U AMIC #### [facility] [address] [address] [address] Marvin Reis CULTURE URINEon 10-01-2022 CULTURE URINE Culture Observations : NO GROWTH. Normal [facility] Comment on above: Performed By: #### U AMIC #### [facility] [address] [address] [address] Marvin Reis UA RANDOM W/MICROSCOPICon BACTERIA SMALL Abnormal NONE SEEN [facility] Comment on above: Performed By: #### U AMIC #### [facility] [address] [address] [address] Marvin Reis Bilirubin Ql (U) Negative Normal NEGATIVE [facility] Comment on above: Performed By: #### U AMIC #### [facility] [address] [address] [address] Marvin Reis CAST SEEN Abnormal NONE SEEN [facility] Comment on above: Performed By: #### U AMIC #### [facility] [address] [address] [address] Marvin Reis Clarity (U) CLEAR Normal CLEAR [facility] Comment on above: Performed By: #### U AMIC #### [facility] [address] [address] [address] Marvin Reis Color (U) LT. YELLOW Normal YELLOW [facility] Comment on above: Performed By: #### U AMIC #### [facility] [address] [address] [address] Marvin Reis Crystals LM Nom (Urine sed) NONE SEEN Normal NONE SEEN [facility] Comment on above: Performed By: #### U AMIC #### [facility] [address] [address] [address] Marvin Reis Epithelial cells LM Ql (Urine sed) FEW Abnormal NONE SEEN /RARE [facility] Comment on above: Performed By: #### U AMIC #### [facility] [address] [place] [address] Dr. Marvin Reis Glucose Ql (U) Negative Normal NEGATIVE [facility] Comment on above: Performed By: #### U AMIC #### [facility] [address] [place] [address] Dr. Marvin Reis Hemoglobin Ql (U) TRACE-INTACT Abnormal NEGATIVE [facility] Comment on above: Performed By: #### U AMIC #### [facility] [address] [address] [address] Marvin Reis HYALINE CAST FEW Normal [facility] Comment on above: Performed By: #### U AMIC #### [facility] [address] [place] [address] Dr. Marvin Reis Ketones Ql (U) Negative Normal NEGATIVE [facility] Comment on above: Performed By: #### U AMIC #### [facility] [address] [place] [address] Dr. Marvin Reis LEUKOCYTES MODERATE Abnormal NEGATIVE [facility] Comment on above: Performed By: #### U AMIC #### [facility] [address] [place] [address] Dr. Marvin Reis MUCOUS SMALL Abnormal NONE SEEN [facility] Comment on above: Performed By: #### U AMIC #### [facility] [address] [place] [address] Dr. Marvin Reis Nitrite Ql (U) Negative Normal NEGATIVE [facility] Comment on above: Performed By: #### U AMIC #### [facility] [address] [place] [address] Dr. Marvin Reis pH (U) 5.5 [pH] Normal 5-9 [facility] Comment on above: Performed By: #### U AMIC #### [facility] [address] [place] [address] Dr. Marvin Reis RBC 0-2 Normal 0-2 [facility] Comment on above: Performed By: #### U AMIC #### [facility] [address] [place] [address] Dr. Marvin Reis SPEC GRAVITY 1.020 Normal 1.005-<=1.025 [facility] Comment on above: Performed By: #### U AMIC #### [facility] [address] [place] [address] Dr. Marvin Reis UA PROTEIN Negative Normal NEGATIVE/ TRACE [facility] Comment on above: Performed By: #### U AMIC #### [facility] [address] [address] [address] Marvin Reis Urobilinogen Qn (U) 0.2 {Robbie'U}/dL Normal 0.2 - 1. 0 [facility] Comment on above: Performed By: #### U AMIC #### [facility] [address] [address] [address] Marvin Reis WBC 10-20 Abnormal NONE SEEN [facility] Comment on above: Performed By: #### U AMIC #### [facility] [address] [address] [address] Marvin Reis CULTURE URINEon 09-26-2022 CULTURE [...] Trimethoprim/Sulfamet hoxazole <=20 S F Normal [facility] Comment on above: Performed By: #### U RCX #### [facility] [address] [place] [address] Dr. Marvin Reis CBC W MANUAL DIFFon 09-25-20 ANISOCYTOSIS SLIGHT Normal [facility] Comment on above: Performed By: #### U RCX #### [facility] [address] [place] [address] Dr. Marvin Reis ATYPICAL LYMPH # Normal [facility] Comment on above: Performed By: #### U RCX #### [facility] [address] [place] [address] Dr. Marvin Reis ATYPICAL LYMPH % Normal [facility] Comment on above: Performed By: #### U RCX #### [facility] [address] [place] [address] Dr. Marvin Reis BAND # Normal 0.0-0.3 [facility] Comment on above: Performed By: #### U RCX #### [facility] [address] [place] [address] Dr. Marvin Reis BAND % Normal 0-5 [facility] Comment on above: Performed By: #### U RCX #### [facility] [address] [place] [address] Dr. Marvin Reis BASOM # 0.00 103/ul Normal 0.00-0.10 [facility] Comment on above: Performed By: #### U RCX #### [facility] [address] [place] [address] Dr. Marvin Reis BASOM % 0.0 % Critically low 0.2-2.0 [facility] Comment on above: Performed By: #### U RCX #### [facility] [address] [place] [address] Dr. Marvin Reis BLAST # Normal [facility] Comment on above: Performed By: #### U RCX #### [facility] [address] [place] [address] Dr. Marvin Reis BLAST % Normal [facility] Comment on above: Performed By: #### U RCX #### [facility] [address] [place] [address] Dr. Marvin Reis CORRECTED WBC Normal 4.0-11.0 [facility] Comment on above: Performed By: #### U RCX #### [facility] [address] [place] [address] Dr. Marvin Reis EOS # 0.00 103/ul Normal 0.00-0.70 [facility] Comment on above: Performed By: #### U RCX #### [facility] [address] [place] [address] Dr. Marvin Reis EOS% 0.0 % Critically low 0.9-7.0 [facility] Comment on above: Performed By: #### U RCX #### [facility] [address] [place] [address] Dr. Marvin Reis HCT 32.1 % Critically low 42.0-54.0 [facility] Comment on above: Performed By: #### U RCX #### [facility] [address] [address] [address] Marvin Reis HGB 10.2 g/dl Critically low 14.0-18.0 [facility] Comment on above: Performed By: #### U RCX #### [facility] [address] [address] [address] Marvin Reis LYMPHM # 0.76 103/ul Critically low 1.20-3.80 [facility] Comment on above: Performed By: #### U RCX #### [facility] [address] [place] [address] Dr. Marvin Reis LYMPHM% 14.0 % Critically low 20.5-60.0 [facility] Comment on above: Performed By: #### U RCX #### [facility] [address] [place] [address] Dr. Marvin Reis MCH 26.5 pg Normal 25.9-34.0 [facility] Comment on above: Performed By: #### U RCX #### [facility] [address] [place] [address] Dr. Marvin Reis MCHC 31.8 g/dl Normal 29.9-35.2 [facility] Comment on above: Performed By: #### U RCX #### [facility] [address] [place] [address] Dr. Marvin Reis MCV 83.4 fL Normal 80.0-94.0 [facility] Comment on above: Performed By: #### U RCX #### [facility] [address] [address] [address] Marvin Reis METAMYELOCYTE # Normal [facility] Comment on above: Performed By: #### U RCX #### [facility] [address] [place] [address] Dr. Marvin Reis METAMYELOCYTE % Normal [facility] Comment on above: Performed By: #### U RCX #### [facility] [address] [address] [address] Marvin Reis MONOM# 0.27 103/ul Critically low 0.30-0.80 [facility] Comment on above: Performed By: #### U RCX #### [facility] [address] [address] [address] Marvin Reis MONOM% 5.0 % Normal 1.7-12.0 [facility] Comment on above: Performed By: #### U RCX #### [facility] [address] [address] [address] Marvin Reis MPV 9.8 fL Normal 9.5-13.5 [facility] Comment on above: Performed By: #### U RCX #### [facility] [address] [place] [address] Dr. Marvin Reis MYELOCYTE # Normal [facility] Comment on above: Performed By: #### U RCX #### [facility] [address] [address] [address] Marvin Reis MYELOCYTE % Normal [facility] Comment on above: Performed By: #### U RCX #### [facility] [address] [place] [address] Dr. Marvin Reis NRBC Normal [facility] Comment on above: Performed By: #### U RCX #### [facility] [address] [place] [address] Dr. Marvin Reis PLT 78 103/ul Critically low 150-450 [facility] Comment on above: Performed By: #### U RCX #### [facility] [address] [address] [address] Marvin Reis RBC 3.85 106/ul Critically low 4.70-6.10 [facility] Comment on above: Performed By: #### U RCX #### [facility] [address] [place] [address] Dr. Marvin Reis RDW 15.8 % Critically high 11.0-15.0 [facility] Comment on above: Performed By: #### U RCX #### [facility] [address] [address] [address] Marvin Reis SEG # 4.37 103/ul Normal 1.40-6.50 [facility] Comment on above: Performed By: #### U RCX #### [facility] [address] [address] [address] Marvin Reis SEG % 81.0 % Critically high 43.0-75.0 [facility] Comment on above: Performed By: #### U RCX #### [facility] [address] [place] [address] Dr. Marvin Reis WBC 5.4 103/ul Normal 4.0-11.0 [facility] Comment on above: Performed By: #### U RCX #### [facility] [address] [place] [address] Dr. Marvin Reis CRPon 09-25-2022 CRP 8.9 mg/dL Critically high <=1.0 [facility] Comment on above: Performed By: #### U AMIC #### [facility] [address] [place] [address] Dr. Marvin Reis LACTATE/LACTIC ACIDon 2021 Lactate [Moles/Vol] 0.9 mmol/L Normal 0.4-1.9 [facility] Comment on above: Performed By: #### U RCX #### [facility] [address] [place] [address] Dr. Marvin Reis PROF 14(COMP METB)on 022 Albumin [Mass/Vol] 2.6 g/dL Critically low 3.4-5.[address] [facility] Comment on above: Performed By: #### U AMIC #### [facility] [address] [address] [address] Marvin Reis Albumin/Globulin [Mass ratio] 0.7 {ratio} Normal [facility] Comment on above: Performed By: #### U AMIC #### [facility] [address] [address] [address] Marvin Reis ALP [Catalytic activity/Vol] 75 U/L Normal 46-116 [facility] Comment on above: Performed By: #### U AMIC #### [facility] [address] [address] [address] Marvin Reis ALT [Catalytic activity/Vol] 23 U/L Normal 16-63 [facility] Comment on above: Performed By: #### U AMIC #### [facility] [address] [address] [address] Marvin Reis Anion gap [Moles/Vol] 11.8 mmol/L Normal [facility] Comment on above: Performed By: #### U AMIC #### [facility] [address] [address] [address] Marvin Reis AST [Catalytic activity/Vol] 21 U/L Normal 15-37 [facility] Comment on above: Performed By: #### U AMIC #### [facility] [address] [address] [address] Marvin Reis Bilirubin [Mass/Vol] 0.8 mg/dL Normal 0.2-1.0 [facility] Comment on above: Performed By: #### U AMIC #### [facility] [address] [address] [address] Marvin Reis Calcium [Mass/Vol] 8.7 mg/dL Normal 8.5-10.1 [facility] Comment on above: Performed By: #### U AMIC #### [facility] [address] [address] [address] Marvin Reis Chloride [Moles/Vol] 105 mmol/L Normal 98-107 [facility] Comment on above: Performed By: #### U AMIC #### [facility] [address] [address] [address] Marvin Reis CO2 [Moles/Vol] 26.1 mmol/L Normal 21.0-32.0 [facility] Comment on above: Performed By: #### U AMIC #### [facility] [address] [address] [address] Marvin Reis Creatinine [Mass/Vol] 0.88 mg/dL Normal 0.70-1.30 [facility] Comment on above: Performed By: #### U AMIC #### [facility] [address] [address] [address] Marvin Reis EGFR-AF FRENCH >60 Normal >=60 [facility] Comment on above: Performed By: #### U AMIC #### [facility] [address] [address] [address] Marvin Reis EGFR-NON AF FRENCH >60 Normal >=60 [facility] Comment on above: Performed By: #### U AMIC #### [facility] [address] [address] [address] Marvin Reis Globulin (S) [Mass/Vol] 3.7 g/dL Normal [facility] Comment on above: Performed By: #### U AMIC #### [facility] [address] [address] [address] Marvin Reis Glucose [Mass/Vol] 93 mg/dL Normal 74-106 [facility] Comment on above: Performed By: #### U AMIC #### [facility] [address] [address] [address] Marvin Reis Potassium [Moles/Vol] 3.9 mmol/L Normal 3.5-5.1 [facility] Comment on above: Performed By: #### U AMIC #### [facility] [address] [address] [address] Marvin Reis Protein [Mass/Vol] 6.3 g/dL Critically low 6.4-8.2 [facility] Comment on above: Performed By: #### U AMIC #### [facility] [address] [address] [address] Marvin Reis Sodium [Moles/Vol] 139 mmol/L Normal 136-145 [facility] Comment on above: Performed By: #### U AMIC #### [facility] [address] [address] [address] Marvin Reis Urea nitrogen [Mass/Vol] 20.0 mg/dL Critically high 7.0-18.0 [facility] Comment on above: Performed By: #### U AMIC #### [facility] [address] [place] [address] Dr. Marvin Reis Urea nitrogen/Creatinine [Mass ratio] 22.7 mg/mg Normal [facility] Comment on above: Performed By: #### U AMIC #### [facility] [address] [place] [address] Dr. Marvin Reis SED RATE WESTERGRENon 2021 SED RATE 49 mm/hr Critically high <=20 [facility] Comment on above: Performed By: #### U AMIC #### [facility] [address] [place] [address] Dr. Marvin Reis CBC W MANUAL DIFFon 09-24-20 ATYPICAL LYMPH # Normal [facility] Comment on above: Performed By: #### U RCX #### [facility] [address] [place] [address] Dr. Marvin Reis ATYPICAL LYMPH % Normal [facility] Comment on above: Performed By: #### U RCX #### [facility] [address] [place] [address] Dr. Marvin Reis BAND # Normal 0.0-0.3 [facility] Comment on above: Performed By: #### U RCX #### [facility] [address] [place] [address] Dr. Marvin Reis BAND % Normal 0-5 [facility] Comment on above: Performed By: #### U RCX #### [facility] [address] [place] [address] Dr. Marvin Reis BASOM # 0.00 103/ul Normal 0.00-0.10 [facility] Comment on above: Performed By: #### U RCX #### [facility] [address] [address] [address] Marvin Reis BASOM % 0.0 % Critically low 0.2-2.0 [facility] Comment on above: Performed By: #### U RCX #### [facility] [address] [place] [address] Dr. Marvin Reis BLAST # Normal [facility] Comment on above: Performed By: #### U RCX #### [facility] [address] [address] [address] Marvin Reis BLAST % Normal [facility] Comment on above: Performed By: #### U RCX #### [facility] [address] [place] [address] Dr. Marvin Reis CORRECTED WBC Normal 4.0-11.0 [facility] Comment on above: Performed By: #### U RCX #### [facility] [address] [address] [address] Marvin Reis EOS # 0.00 103/ul Normal 0.00-0.70 [facility] Comment on above: Performed By: #### U RCX #### [facility] [address] [place] [address] Dr. Marvin Reis EOS% 0.0 % Critically low 0.9-7.0 [facility] Comment on above: Performed By: #### U RCX #### [facility] [address] [place] [address] Dr. Marvin Reis HCT 33.5 % Critically low 42.0-54.0 [facility] Comment on above: Performed By: #### U RCX #### [facility] [address] [place] [address] Dr. Marvin Reis HGB 10.9 g/dl Critically low 14.0-18.0 [facility] Comment on above: Performed By: #### U RCX #### [facility] [address] [place] [address] Dr. Marvin Reis LYMPHM # 0.52 103/ul Critically low 1.20-3.80 [facility] Comment on above: Performed By: #### U RCX #### [facility] [address] [place] [address] Dr. Marvin Reis LYMPHM% 4.0 % Critically low 20.5-60.0 [facility] Comment on above: Performed By: #### U RCX #### [facility] [address] [place] [address] Dr. Marvin Reis MCH 27.2 pg Normal 25.9-34.0 [facility] Comment on above: Performed By: #### U RCX #### [facility] [address] [place] [address] Dr. Marvin Reis MCHC 32.5 g/dl Normal 29.9-35.2 [facility] Comment on above: Performed By: #### U RCX #### [facility] [address] [address] [address] Marvin Reis MCV 83.5 fL Normal 80.0-94.0 [facility] Comment on above: Performed By: #### U RCX #### [facility] [address] [place] [address] Dr. Marvin Reis METAMYELOCYTE # Normal [facility] Comment on above: Performed By: #### U RCX #### [facility] [address] [place] [address] Dr. Marvin Reis METAMYELOCYTE % Normal [facility] Comment on above: Performed By: #### U RCX #### [facility] [address] [place] [address] Dr. Marvin Reis MONOM# 0.39 103/ul Normal 0.30-0.80 [facility] Comment on above: Performed By: #### U RCX #### [facility] [address] [place] [address] Dr. Marvin Reis MONOM% 3.0 % Normal 1.7-12.0 [facility] Comment on above: Performed By: #### U RCX #### [facility] [address] [place] [address] Dr. Marvin Reis MPV 10.5 fL Normal 9.5-13.5 [facility] Comment on above: Performed By: #### U RCX #### [facility] [address] [place] [address] Dr. Marvin Reis MYELOCYTE # Normal [facility] Comment on above: Performed By: #### U RCX #### [facility] [address] [place] [address] Dr. Marvin Reis MYELOCYTE % Normal [facility] Comment on above: Performed By: #### U RCX #### [facility] [address] [address] [address] Marvin Reis NRBC Normal [facility] Comment on above: Performed By: #### U RCX #### [facility] [address] [address] [address] Marvin Reis PLT 96 103/ul Critically low 150-450 [facility] Comment on above: Performed By: #### U RCX #### [facility] [address] [address] [address] Marvin Reis RBC 4.01 106/ul Critically low 4.70-6.10 [facility] Comment on above: Performed By: #### U RCX #### [facility] [address] [address] [address] Marvin Reis RDW 15.8 % Critically high 11.0-15.0 [facility] Comment on above: Performed By: #### U RCX #### [facility] [address] [address] [address] Marvin Reis SEG # 12.00 103/ul Critically high 1.40-6.50 [facility] Comment on above: Performed By: #### U RCX #### [facility] [address] [address] [address] Marvin Reis SEG % 93.0 % Critically high 43.0-75.0 [facility] Comment on above: Performed By: #### U RCX #### [facility] [address] [address] [address] Marvin Reis WBC 12.9 103/ul Critically high 4.0-11.0 [facility] Comment on above: Performed By: #### U RCX #### [facility] [address] [address] [address] Marvin Reis CRPon 09-24-2022 CRP 8.4 mg/dL Critically high <=1.0 [facility] Comment on above: Performed By: #### U AMIC #### [facility] [address] [address] [address] Marvin Reis LACTATE/LACTIC ACIDon 2021 Lactate [Moles/Vol] 2.2 mmol/L Critically high 0.4-1.9 [facility] Comment on above: Performed By: #### L ACT #### [facility] [address] [address] [address] Marvin Reis PROF 14(COMP METB)on 022 Albumin [Mass/Vol] 2.8 g/dL Critically low 3.4-5.0 [facility] Comment on above: Performed By: #### U AMIC #### [facility] [address] [place] [address] Dr. Marvin Reis Albumin/Globulin [Mass ratio] 0.7 {ratio} Normal [facility] Comment on above: Performed By: #### U AMIC #### [facility] [address] [place] [address] Dr. Marvin Reis ALP [Catalytic activity/Vol] 80 U/L Normal 46-116 [facility] Comment on above: Performed By: #### U AMIC #### [facility] [address] [place] [address] Dr. Marvin Reis ALT [Catalytic activity/Vol] 20 U/L Normal 16-63 [facility] Comment on above: Performed By: #### U AMIC #### [facility] [address] [place] [address] Dr. Marvin Reis Anion gap [Moles/Vol] 12.3 mmol/L Normal [facility] Comment on above: Performed By: #### U AMIC #### [facility] [address] [place] [address] Dr. Marvin Reis AST [Catalytic activity/Vol] 17 U/L Normal 15-37 [facility] Comment on above: Performed By: #### U AMIC #### [facility] [address] [place] [address] Dr. Marvin Reis Bilirubin [Mass/Vol] 1.0 mg/dL Normal 0.2-1.0 [facility] Comment on above: Performed By: #### U AMIC #### [facility] [address] [address] [address] Marvin Reis Calcium [Mass/Vol] 9.0 mg/dL Normal 8.5-10.1 [facility] Comment on above: Performed By: #### U AMIC #### [facility] [address] [address] [address] Marvin Reis Chloride [Moles/Vol] 106 mmol/L Normal 98-107 [facility] Comment on above: Performed By: #### U AMIC #### [facility] [address] [address] [address] Marvin Reis CO2 [Moles/Vol] 25.8 mmol/L Normal 21.0-32.0 [facility] Comment on above: Performed By: #### U AMIC #### [facility] [address] [place] [address] Dr. Marvin Reis Creatinine [Mass/Vol] 1.08 mg/dL Normal 0.70-1.30 [facility] Comment on above: Performed By: #### U AMIC #### [facility] [address] [address] [address] Marvin Reis EGFR-AF FRENCH >60 Normal >=60 [facility] Comment on above: Performed By: #### U AMIC #### [facility] [address] [address] [address] Marvin Reis EGFR-NON AF FRENCH >60 Normal >=60 [facility] Comment on above: Performed By: #### U AMIC #### [facility] [address] [address] [address] Marvin Reis Globulin (S) [Mass/Vol] 3.8 g/dL Normal [facility] Comment on above: Performed By: #### U AMIC #### [facility] [address] [address] [address] Marvin Reis Glucose [Mass/Vol] 117 mg/dL Critically high 74-106 [facility] Comment on above: Performed By: #### U AMIC #### [facility] [address] [address] [address] Marvin Reis Potassium [Moles/Vol] 4.1 mmol/L Normal 3.5-5.1 [facility] Comment on above: Performed By: #### U AMIC #### [facility] [address] [address] [address] Marvin Reis Protein [Mass/Vol] 6.6 g/dL Normal 6.4-8.2 [facility] Comment on above: Performed By: #### U AMIC #### [facility] [address] [address] [address] Marvin Reis Sodium [Moles/Vol] 140 mmol/L Normal 136-145 [facility] Comment on above: Performed By: #### U AMIC #### [facility] [address] [place] [address] Dr. Marvin Reis Urea nitrogen [Mass/Vol] 23.0 mg/dL Critically high 7.0-18.0 [facility] Comment on above: Performed By: #### U AMIC #### [facility] [address] [place] [address] Dr. Marvin Reis Urea nitrogen/Creatinine [Mass ratio] 21.3 mg/mg Normal [facility] Comment on above: Performed By: #### U AMIC #### [facility] [address] [place] [address] Dr. Marvin Reis SED RATE [facility] 2021 SED RATE 51 mm/hr Critically high <=20 [facility] Comment on above: Performed By: #### U RCX #### [facility] [address] [place] [address] Dr. Marvin Reis UA RANDOMon 09-24-2022 Bilirubin Ql (U) Negative Normal NEGATIVE [facility] Comment on above: Performed By: #### U AMIC #### [facility] [address] [place] [address] Dr. Marvin Reis Clarity (U) CLEAR Normal CLEAR [facility] Comment on above: Performed By: #### U AMIC #### [facility] [address] [place] [address] Dr. Marvin Reis Color (U) LT. YELLOW Normal YELLOW [facility] Comment on above: Performed By: #### U AMIC #### [facility] [address] [address] [address] Marvin Reis Glucose Ql (U) Negative Normal NEGATIVE [facility] Comment on above: Performed By: #### U AMIC #### [facility] [address] [address] [address] Marvin Reis Hemoglobin Ql (U) LARGE Abnormal NEGATIVE [facility] Comment on above: Performed By: #### U AMIC #### [facility] [address] [address] [address] Marvin Reis Ketones Ql (U) Negative Normal NEGATIVE [facility] Comment on above: Performed By: #### U AMIC #### [facility] [address] [place] [address] Dr. Marvin Reis LEUKOCYTES MODERATE Abnormal NEGATIVE [facility] Comment on above: Performed By: #### U AMIC #### [facility] [address] [place] [address] Dr. Marvin Reis Nitrite Ql (U) Negative Normal NEGATIVE [facility] Comment on above: Performed By: #### U AMIC #### [facility] [address] [address] [address] Marvin Reis pH (U) 5.5 [pH] Normal 5-9 [facility] Comment on above: Performed By: #### U AMIC #### [facility] [address] [address] [address] Marvin Reis SPEC GRAVITY 1.020 Normal 1.005-<=1.025 [facility] Comment on above: Performed By: #### U AMIC #### [facility] [address] [place] [address] Dr. Marvin Reis UA PROTEIN Negative Normal NEGATIVE/ TRACE [facility] Comment on above: Performed By: #### U AMIC #### [facility] [address] [place] [address] Dr. Marvin Reis Urobilinogen Qn (U) 0.2 {Robbie'U}/dL Normal 0.2 - 1. 0 [facility] Comment on above: Performed By: #### U AMIC #### [facility] [address] [place] [address] Dr. Marvin Reis CULTURE URINEon 09-13-2022 CULTURE [...] F Oxacillin >=4 R F Normal [facility] Comment on above: Performed By: #### U RCX #### [facility] [address] [place] [address] Dr. Marvin Reis UA RANDOM W/MICROSCOPICon BACTERIA TRACE Abnormal NONE SEEN [facility] Comment on above: Performed By: #### U AMIC #### [facility] [address] [place] [address] Dr. Marvin Reis Bilirubin Ql (U) Negative Normal NEGATIVE [facility] Comment on above: Performed By: #### U AMIC #### [facility] [address] [place] [address] Dr. Marvin Reis CAST NONE SEEN Normal NONE SEEN [facility] Comment on above: Performed By: #### U AMIC #### [facility] [address] [place] [address] Dr. Marvin Reis Clarity (U) CLEAR Normal CLEAR [facility] Comment on above: Performed By: #### U AMIC #### [facility] [address] [place] [address] Dr. Marvin Reis Color (U) LT. YELLOW Normal YELLOW [facility] Comment on above: Performed By: #### U AMIC #### [facility] [address] [address] [address] Marvin Reis Crystals LM Nom (Urine sed) NONE SEEN Normal NONE SEEN [facility] Comment on above: Performed By: #### U AMIC #### [facility] [address] [address] [address] Marvin Reis Epithelial cells LM Ql (Urine sed) FEW Abnormal NONE SEEN /RARE [facility] Comment on above: Performed By: #### U AMIC #### [facility] [address] [address] [address] Marvin Reis Glucose Ql (U) Negative Normal NEGATIVE [facility] Comment on above: Performed By: #### U AMIC #### [facility] [address] [address] [address] Marvin Reis Hemoglobin Ql (U) Negative Normal NEGATIVE [facility] Comment on above: Performed By: #### U AMIC #### [facility] [address] [address] [address] Marvin Reis Ketones Ql (U) Negative Normal NEGATIVE [facility] Comment on above: Performed By: #### U AMIC #### [facility] [address] [address] [address] Marvin Reis LEUKOCYTES LARGE Abnormal NEGATIVE [facility] Comment on above: Performed By: #### U AMIC #### [facility] [address] [address] [address] Marivn Reis MUCOUS NONE SEEN Normal NONE SEEN [facility] Comment on above: Performed By: #### U AMIC #### [facility] [address] [address] [address] Marvin Reis Nitrite Ql (U) Negative Normal NEGATIVE [facility] Comment on above: Performed By: #### U AMIC #### [facility] [address] [address] [address] Marvin Reis pH (U) 5.5 [pH] Normal 5-9 [facility] Comment on above: Performed By: #### U AMIC #### [facility] [address] [address] [address] Marvin Reis RBC 0-2 Normal 0-2 [facility] Comment on above: Performed By: #### U AMIC #### [facility] [address] [place] [address] Dr. Marvin Reis SPEC GRAVITY 1.025 Normal 1.005-<=1.025 [facility] Comment on above: Performed By: #### U AMIC #### [facility] [address] [place] [address] Dr. Marvin Reis UA PROTEIN Negative Normal NEGATIVE/ TRACE [facility] Comment on above: Performed By: #### U AMIC #### [facility] [address] [place] [address] Dr. Marvin Reis Urobilinogen Qn (U) 0.2 {Robbie'U}/dL Normal 0.2 - 1. 0 [facility] Comment on above: Performed By: #### U AMIC #### [facility] [address] [place] [address] Dr. Marvin Reis WBC 10-20 Abnormal NONE SEEN [facility] Comment on above: Performed By: #### U AMIC #### [facility] [address] [place] [address] Dr. Marvin Reis CULTURE URINEon 08-17-2022 CULTURE [...] Trimethoprim/Sulfamet hoxazole <=20 S F Normal [facility] Comment on above: Performed By: #### U RCX #### [facility] [address] [place] [address] Dr. Marvin Reis UA RANDOM W/MICROSCOPICon 10 -13-2022 BACTERIA MODERATE Abnormal NONE SEEN [facility] Comment on above: Performed By: #### U RCX #### [facility] [address] [address] [address] Marvin Reis Bilirubin Ql (U) Negative Normal NEGATIVE [facility] Comment on above: Performed By: #### U RCX #### [facility] [address] [place] [address] Dr. Marvin Reis CAST NONE SEEN Normal NONE SEEN [facility] Comment on above: Performed By: #### U RCX #### [facility] [address] [address] [address] Marvin Reis Clarity (U) SL CLOUDY Abnormal CLEAR [facility] Comment on above: Performed By: #### U RCX #### [facility] [address] [place] [address] Dr. Marvin Reis Color (U) LT. YELLOW Normal YELLOW [facility] Comment on above: Performed By: #### U RCX #### [facility] [address] [address] [address] Marvin Reis Crystals LM Nom (Urine sed) NONE SEEN Normal NONE SEEN [facility] Comment on above: Performed By: #### U RCX #### [facility] [address] [place] [address] Dr. Marvin Reis Epithelial cells LM Ql (Urine sed) RARE Normal NONE SEEN /RARE [facility] Comment on above: Performed By: #### U RCX #### [facility] [address] [place] [address] Dr. Marvin Resi Glucose Ql (U) Negative Normal NEGATIVE [facility] Comment on above: Performed By: #### U RCX #### [facility] [address] [address] [address] Marvin Reis Hemoglobin Ql (U) SMALL Abnormal NEGATIVE [facility] Comment on above: Performed By: #### U RCX #### [facility] [address] [place] [address] Dr. Marvin Reis Ketones Ql (U) Negative Normal NEGATIVE [facility] Comment on above: Performed By: #### U RCX #### [facility] [address] [address] [address] Marvin Reis LEUKOCYTES MODERATE Abnormal NEGATIVE [facility] Comment on above: Performed By: #### U RCX #### [facility] [address] [place] [address] Dr. Marvin Reis MUCOUS NONE SEEN Normal NONE SEEN [facility] Comment on above: Performed By: #### U RCX #### [facility] [address] [address] [address] Marvin Reis Nitrite Ql (U) Positive Abnormal NEGATIVE [facility] Comment on above: Performed By: #### U RCX #### [facility] [address] [place] [address] Dr. Marvin Reis pH (U) 6.0 [pH] Normal 5-9 [facility] Comment on above: Performed By: #### U RCX #### [facility] [address] [place] [address] Dr. Marvin Reis RBC 0-2 Normal 0-2 [facility] Comment on above: Performed By: #### U RCX #### [facility] [address] [address] [address] Marvin Reis SPEC GRAVITY 1.015 Normal 1.005-<=1.025 [facility] Comment on above: Performed By: #### U RCX #### [facility] [address] [place] [address] Dr. Marvin Reis UA PROTEIN Negative Normal NEGATIVE/ TRACE [facility] Comment on above: Performed By: #### U RCX #### [facility] [address] [place] [address] Dr. Marvin Reis Urobilinogen Qn (U) 0.2 {Robbie'U}/dL Normal 0.2 - 1. 0 [facility] Comment on above: Performed By: #### U RCX #### [facility] [address] [place] [address] Dr. Marvin Reis WBC 10-20 Abnormal NONE SEEN [facility] Comment on above: Performed By: #### U RCX #### [facility] [address] [place] [address] Dr. Marvin Reis CULTURE URINEon 08-02-2022 CULTURE [...] Trimethoprim/Sulfamet hoxazole <=20 S F Normal [facility] Comment on above: Performed By: #### U RCX #### [facility] [address] [place] [address] Dr. Marvin Reis UA RANDOM W/MICROSCOPICon BACTERIA MODERATE Abnormal NONE SEEN [facility] Comment on above: Performed By: #### U AMIC #### [facility] [address] [place] [address] Dr. Marvin Reis Bilirubin Ql (U) Negative Normal NEGATIVE [facility] Comment on above: Performed By: #### U AMIC #### [facility] [address] [place] [address] Dr. Marvin Reis CAST NONE SEEN Normal NONE SEEN [facility] Comment on above: Performed By: #### U AMIC #### [facility] [address] [place] [address] Dr. Marvin Reis Clarity (U) SL CLOUDY Abnormal CLEAR [facility] Comment on above: Performed By: #### U AMIC #### [facility] [address] [place] [address] Dr. Marvin Reis Color (U) LT. YELLOW Normal YELLOW [facility] Comment on above: Performed By: #### U AMIC #### [facility] [address] [place] [address] Dr. Marvin Reis Crystals LM Nom (Urine sed) NONE SEEN Normal NONE SEEN [facility] Comment on above: Performed By: #### U AMIC #### [facility] [address] [address] [address] Marvin Reis Epithelial cells LM Ql (Urine sed) NONE SEEN Normal NONE SEEN /RARE [facility] Comment on above: Performed By: #### U AMIC #### [facility] [address] [address] [address] Marvin Reis Glucose Ql (U) Negative Normal NEGATIVE [facility] Comment on above: Performed By: #### U AMIC #### [facility] [address] [address] [address] Marvin Reis Hemoglobin Ql (U) TRACE-INTACT Abnormal NEGATIVE [facility] Comment on above: Performed By: #### U AMIC #### [facility] [address] [place] [address] Dr. Marvin Reis Ketones Ql (U) Negative Normal NEGATIVE [facility] Comment on above: Performed By: #### U AMIC #### [facility] [address] [address] [address] Marvin Reis LEUKOCYTES MODERATE Abnormal NEGATIVE [facility] Comment on above: Performed By: #### U AMIC #### [facility] [address] [address] [address] Marvin Reis MUCOUS NONE SEEN Normal NONE SEEN [facility] Comment on above: Performed By: #### U AMIC #### [facility] [address] [address] [address] Marvin Reis Nitrite Ql (U) Positive Abnormal NEGATIVE [facility] Comment on above: Performed By: #### U AMIC #### [facility] [address] [address] [address] Marvin Reis pH (U) 6.0 [pH] Normal 5-9 [facility] Comment on above: Performed By: #### U AMIC #### [facility] [address] [address] [address] Marvin Reis RBC 0-2 Normal 0-2 [facility] Comment on above: Performed By: #### U AMIC #### [facility] [address] [place] [address] Dr. Marvin Reis SPEC GRAVITY 1.015 Normal 1.005-<=1.025 [facility] Comment on above: Performed By: #### U AMIC #### [facility] [address] [place] [address] Dr. Marvin Reis UA PROTEIN Negative Normal NEGATIVE/ TRACE [facility] Comment on above: Performed By: #### U AMIC #### [facility] [address] [place] [address] Dr. Marvin Reis Urobilinogen Qn (U) 0.2 {Robbie'U}/dL Normal 0.2 - 1. 0 [facility] Comment on above: Performed By: #### U AMIC #### [facility] [address] [place] [address] Dr. Marvin Reis WBC 20-50 Abnormal NONE SEEN [facility] Comment on above: Performed By: #### U AMIC #### [facility] [address] [place] [address] Dr. Marvin Reis CULTURE URINEon 06-27-2022 CULTURE [...] F Oxacillin >=4 R F Normal [facility] Comment on above: Performed By: #### U AMIC #### [facility] [address] [place] [address] Dr. Marvin Reis UA RANDOM W/MICROSCOPICon BACTERIA LARGE Abnormal NONE SEEN [facility] Comment on above: Performed By: #### U RCX #### [facility] [address] [address] [address] Marvin Reis Bilirubin Ql (U) Negative Normal NEGATIVE [facility] Comment on above: Performed By: #### U RCX #### [facility] [address] [address] [address] Marvin Reis CAST NONE SEEN Normal NONE SEEN [facility] Comment on above: Performed By: #### U RCX #### [facility] [address] [address] [address] Marvin Reis Clarity (U) CLEAR Normal CLEAR [facility] Comment on above: Performed By: #### U RCX #### [facility] [address] [place] [address] Dr. Marvin Reis Color (U) LT. YELLOW Normal YELLOW [facility] Comment on above: Performed By: #### U RCX #### [facility] [address] [place] [address] Dr. Marvin Reis Crystals LM Nom (Urine sed) NONE SEEN Normal NONE SEEN [facility] Comment on above: Performed By: #### U RCX #### [facility] [address] [address] [address] Marvin Reis Epithelial cells LM Ql (Urine sed) FEW Abnormal NONE SEEN /RARE [facility] Comment on above: Performed By: #### U RCX #### [facility] [address] [place] [address] Dr. Marvin Reis Glucose Ql (U) Negative Normal NEGATIVE [facility] Comment on above: Performed By: #### U RCX #### [facility] [address] [address] [address] Marvin Reis Hemoglobin Ql (U) TRACE-INTACT Abnormal NEGATIVE [facility] Comment on above: Performed By: #### U RCX #### [facility] [address] [place] [address] Dr. Marvin Reis Ketones Ql (U) Negative Normal NEGATIVE [facility] Comment on above: Performed By: #### U RCX #### [facility] [address] [address] [address] Marvin Reis LEUKOCYTES LARGE Abnormal NEGATIVE [facility] Comment on above: Performed By: #### U RCX #### [facility] [address] [place] [address] Dr. Marvin Reis MUCOUS NONE SEEN Normal NONE SEEN [facility] Comment on above: Performed By: #### U RCX #### [facility] [address] [place] [address] Dr. Marvin Reis Nitrite Ql (U) Positive Abnormal NEGATIVE [facility] Comment on above: Performed By: #### U RCX #### [facility] [address] [place] [address] Dr. Marvin Reis pH (U) 5.5 [pH] Normal 5-9 [facility] Comment on above: Performed By: #### U RCX #### [facility] [address] [place] [address] Dr. Marvin Reis RBC 2-5 Abnormal 0-2 [facility] Comment on above: Performed By: #### U RCX #### [facility] [address] [place] [address] Dr. Marvin Reis SPEC GRAVITY 1.015 Normal 1.005-<=1.025 [facility] Comment on above: Performed By: #### U RCX #### [facility] [address] [place] [address] Dr. Marvin Reis UA PROTEIN Negative Normal NEGATIVE/ TRACE [facility] Comment on above: Performed By: #### U RCX #### [facility] [address] [place] [address] Dr. Marvin Reis Urobilinogen Qn (U) 0.2 {Robbie'U}/dL Normal 0.2 - 1. 0 [facility] Comment on above: Performed By: #### U RCX #### [facility] [address] [place] [address] Dr. Marvin Reis WBC (U) [#/Vol] /uL Abnormal NONE SEEN [facility] Comment on above: Performed By: #### U RCX #### [facility] [address] [place] [address] Dr. Marvin Reis CULTURE URINEon 05-27-2022 CULTURE [...] F Oxacillin >=4 R F Normal [facility] Comment on above: Performed By: #### U RCX #### [facility] [address] [place] [address] Dr. Marvin Reis UA RANDOM W/MICROSCOPICon BACTERIA MODERATE Abnormal NONE SEEN [facility] Comment on above: Performed By: #### U RCX #### [facility] [address] [place] [address] Dr. Marvin Reis Bilirubin Ql (U) Negative Normal NEGATIVE [facility] Comment on above: Performed By: #### U RCX #### [facility] [address] [place] [address] Dr. Marvin Reis CAST NONE SEEN Normal NONE SEEN [facility] Comment on above: Performed By: #### U RCX #### [facility] [address] [place] [address] Dr. Marvin Reis Clarity (U) SL CLOUDY Abnormal CLEAR [facility] Comment on above: Performed By: #### U RCX #### [facility] [address] [place] [address] Dr. Marvin Reis Color (U) LT. YELLOW Normal YELLOW [facility] Comment on above: Performed By: #### U RCX #### [facility] [address] [place] [address] Dr. Marvin Reis Crystals LM Nom (Urine sed) NONE SEEN Normal NONE SEEN [facility] Comment on above: Performed By: #### U RCX #### [facility] [address] [address] [address] Marvin Reis Epithelial cells LM Ql (Urine sed) FEW Abnormal NONE SEEN /RARE [facility] Comment on above: Performed By: #### U RCX #### [facility] [address] [address] [address] Marvin Reis Glucose Ql (U) Negative Normal NEGATIVE [facility] Comment on above: Performed By: #### U RCX #### [facility] [address] [address] [address] Marvin Reis Hemoglobin Ql (U) SMALL Abnormal NEGATIVE [facility] Comment on above: Performed By: #### U RCX #### [facility] [address] [place] [address] Dr. Marvin Reis Ketones Ql (U) Negative Normal NEGATIVE [facility] Comment on above: Performed By: #### U RCX #### [facility] [address] [address] [address] Marvin Reis LEUKOCYTES LARGE Abnormal NEGATIVE [facility] Comment on above: Performed By: #### U RCX #### [facility] [address] [address] [address] Marvin Reis MUCOUS TRACE Abnormal NONE SEEN [facility] Comment on above: Performed By: #### U RCX #### [facility] [address] [address] [address] Marvin Reis Nitrite Ql (U) Negative Normal NEGATIVE [facility] Comment on above: Performed By: #### U RCX #### [facility] [address] [address] [address] Marvin Reis pH (U) 6.0 [pH] Normal 5-9 [facility] Comment on above: Performed By: #### U RCX #### [facility] [address] [address] [address] Marvin Reis RBC 2-5 Abnormal 0-2 [facility] Comment on above: Performed By: #### U RCX #### [facility] [address] [address] [address] Marvin Reis SPEC GRAVITY 1.010 Normal 1.005-<=1.025 [facility] Comment on above: Performed By: #### U RCX #### [facility] [address] [address] [address] Marvin Reis UA PROTEIN Negative Normal NEGATIVE/ TRACE [facility] Comment on above: Performed By: #### U RCX #### [facility] [address] [address] [address] Marvin Reis Urobilinogen Qn (U) 0.2 {Robbie'U}/dL Normal 0.2 - 1. 0 [facility] Comment on above: Performed By: #### U RCX #### [facility] [address] [place] [address] Dr. Marvin Reis WBC 50-75 Abnormal NONE SEEN [facility] Comment on above: Performed By: #### U RCX #### [facility] [address] [place] [address] Dr. Marvin Reis CULTURE URINEon 04-18-2022 CULTURE [...] F Oxacillin >=4 R F Normal [facility] Comment on above: Performed By: #### U RCX #### [facility] [address] [address] [address] Marvin Reis UA RANDOM W/MICROSCOPICon BACTERIA TRACE Abnormal NONE SEEN [facility] Comment on above: Performed By: #### U AMIC #### [facility] [address] [address] [address] Marvin Reis Bilirubin Ql (U) Negative Normal NEGATIVE [facility] Comment on above: Performed By: #### U AMIC #### [facility] [address] [address] [address] Marvin Reis CAST NONE SEEN Normal NONE SEEN [facility] Comment on above: Performed By: #### U AMIC #### [facility] [address] [address] [address] Marvin Reis Clarity (U) CLEAR Normal CLEAR [facility] Comment on above: Performed By: #### U AMIC #### [facility] [address] [address] [address] Marvin Reis Color (U) LT. YELLOW Normal YELLOW [facility] Comment on above: Performed By: #### U AMIC #### [facility] [address] [address] [address] Marvin Reis Crystals LM Nom (Urine sed) NONE SEEN Normal NONE SEEN [facility] Comment on above: Performed By: #### U AMIC #### [facility] [address] [address] [address] Marvin Reis Epithelial cells LM Ql (Urine sed) FEW Abnormal NONE SEEN /RARE [facility] Comment on above: Performed By: #### U AMIC #### [facility] [address] [address] [address] Marvin Reis Glucose Ql (U) Negative Normal NEGATIVE [facility] Comment on above: Performed By: #### U AMIC #### [facility] [address] [address] [address] Marvin Reis Hemoglobin Ql (U) TRACE-INTACT Abnormal NEGATIVE [facility] Comment on above: Performed By: #### U AMIC #### [facility] [address] [address] [address] Marvin Reis Ketones Ql (U) Negative Normal NEGATIVE [facility] Comment on above: Performed By: #### U AMIC #### [facility] [address] [place] [address] Dr. Marvin Reis LEUKOCYTES SMALL Abnormal NEGATIVE [facility] Comment on above: Performed By: #### U AMIC #### [facility] [address] [place] [address] Dr. Marvin Reis MUCOUS NONE SEEN Normal NONE SEEN [facility] Comment on above: Performed By: #### U AMIC #### [facility] [address] [place] [address] Dr. Marvin Reis Nitrite Ql (U) Negative Normal NEGATIVE [facility] Comment on above: Performed By: #### U AMIC #### [facility] [address] [place] [address] Dr. Marvin Reis pH (U) 6.0 [pH] Normal 5-9 [facility] Comment on above: Performed By: #### U AMIC #### [facility] [address] [place] [address] Dr. Marvin Reis RBC 0-2 Normal 0-2 [facility] Comment on above: Performed By: #### U AMIC #### [facility] [address] [place] [address] Dr. Marvin Reis SPEC GRAVITY 1.010 Normal 1.005-<=1.025 [facility] Comment on above: Performed By: #### U AMIC #### [facility] [address] [place] [address] Dr. Marvin Reis UA PROTEIN Negative Normal NEGATIVE/ TRACE [facility] Comment on above: Performed By: #### U AMIC #### [facility] [address] [place] [address] Dr. Marvin Reis Urobilinogen Qn (U) 0.2 {Robbie'U}/dL Normal 0.2 - 1. 0 [facility] Comment on above: Performed By: #### U AMIC #### [facility] [address] [place] [address] Dr. Marvin Reis WBC 2-5 Abnormal NONE SEEN [facility] Comment on above: Performed By: #### U AMIC #### [facility] [address] [place] [address] Dr. Marvin Reis CULTURE URINEon 03-27-2022 CULTURE [...] Trimethoprim/Sulfamet hoxazole >=320 R F Normal [facility] Comment on above: Performed By: #### U RCX #### [facility] [address] [place] [address] Dr. Marvin Reis UA RANDOM W/MICROSCOPICon BACTERIA TRACE Abnormal NONE SEEN [facility] Comment on above: Performed By: #### U RCX #### [facility] [address] [place] [address] Dr. Marvin Reis Bilirubin Ql (U) Negative Normal NEGATIVE [facility] Comment on above: Performed By: #### U RCX #### [facility] [address] [place] [address] Dr. Marvin Reis CAST NONE SEEN Normal NONE SEEN [facility] Comment on above: Performed By: #### U RCX #### [facility] [address] [place] [address] Dr. Marvin Reis Clarity (U) CLEAR Normal CLEAR [facility] Comment on above: Performed By: #### U RCX #### [facility] [address] [address] [address] Marvin Reis Color (U) LT. YELLOW Normal YELLOW [facility] Comment on above: Performed By: #### U RCX #### [facility] [address] [place] [address] Dr. Marvin Reis Crystals LM Nom (Urine sed) NONE SEEN Normal NONE SEEN [facility] Comment on above: Performed By: #### U RCX #### [facility] [address] [address] [address] Marvin Reis Epithelial cells LM Ql (Urine sed) FEW Abnormal NONE SEEN /RARE [facility] Comment on above: Performed By: #### U RCX #### [facility] [address] [place] [address] Dr. Marvin Reis Glucose Ql (U) Negative Normal NEGATIVE [facility] Comment on above: Performed By: #### U RCX #### [facility] [address] [place] [address] Dr. Marvin Reis Hemoglobin Ql (U) SMALL Abnormal NEGATIVE [facility] Comment on above: Performed By: #### U RCX #### [facility] [address] [place] [address] Dr. Marvin Reis Ketones Ql (U) Negative Normal NEGATIVE [facility] Comment on above: Performed By: #### U RCX #### [facility] [address] [place] [address] Dr. Marvin Reis LEUKOCYTES MODERATE Abnormal NEGATIVE [facility] Comment on above: Performed By: #### U RCX #### [facility] [address] [place] [address] Dr. Marvin Reis MUCOUS NONE SEEN Normal NONE SEEN [facility] Comment on above: Performed By: #### U RCX #### [facility] [address] [place] [address] Dr. Marvin Reis Nitrite Ql (U) Negative Normal NEGATIVE [facility] Comment on above: Performed By: #### U RCX #### [facility] [address] [place] [address] Dr. Marvin Reis pH (U) 5.5 [pH] Normal 5-9 [facility] Comment on above: Performed By: #### U RCX #### [facility] [address] [place] [address] Dr. Marvin Reis RBC NONE SEEN Abnormal 0-2 [facility] Comment on above: Performed By: #### U RCX #### [facility] [address] [place] [address] Dr. Marvin Reis SPEC GRAVITY 1.015 Normal 1.005-<=1.025 [facility] Comment on above: Performed By: #### U RCX #### [facility] [address] [place] [address] Dr. Marvin Reis UA PROTEIN Negative Normal NEGATIVE/ TRACE [facility] Comment on above: Performed By: #### U RCX #### [facility] [address] [place] [address] Dr. Marvin Reis Urobilinogen Qn (U) 0.2 {Robbie'U}/dL Normal 0.2 - 1. 0 [facility] Comment on above: Performed By: #### U RCX #### [facility] [address] [place] [address] Dr. Marvin Reis WBC 20-50 Abnormal NONE SEEN [facility] Comment on above: Performed By: #### U RCX #### [facility] [address] [place] [address] Dr. Marvin Reis YEAST PRESENT Abnormal NONE SEEN [facility] Comment on above: Performed By: #### U RCX #### [facility] [address] [place] [address] Dr. Marvin Reis CULTURE URINEon 03-18-2022 CULTURE URINE Culture Observations : No growth Normal [facility] Comment on above: Performed By: #### U RCX #### [facility] [address] [place] [address] Dr. Marvin Reis UA RANDOM W/MICROSCOPICon BACTERIA NONE SEEN Normal NONE SEEN [facility] Comment on above: Performed By: #### U AMIC #### [facility] [address] [address] [address] Marvin Reis Bilirubin Ql (U) Negative Normal NEGATIVE [facility] Comment on above: Performed By: #### U AMIC #### [facility] [address] [address] [address] Marvin Reis CAST NONE SEEN Normal NONE SEEN [facility] Comment on above: Performed By: #### U AMIC #### [facility] [address] [place] [address] Dr. Marvin Reis Clarity (U) CLOUDY Abnormal CLEAR [facility] Comment on above: Performed By: #### U AMIC #### [facility] [address] [address] [address] Marvin Reis Color (U) LT. YELLOW Normal YELLOW [facility] Comment on above: Performed By: #### U AMIC #### [facility] [address] [place] [address] Dr. Marvin Reis Crystals LM Nom (Urine sed) NONE SEEN Normal NONE SEEN [facility] Comment on above: Performed By: #### U AMIC #### [facility] [address] [place] [address] Dr. Marvin Reis Epithelial cells LM Ql (Urine sed) RARE Normal NONE SEEN /RARE [facility] Comment on above: Performed By: #### U AMIC #### [facility] [address] [place] [address] Dr. Marvin Reis Glucose Ql (U) Negative Normal NEGATIVE [facility] Comment on above: Performed By: #### U AMIC #### [facility] [address] [place] [address] Dr. Marvin Reis Hemoglobin Ql (U) TRACE-INTACT Abnormal NEGATIVE [facility] Comment on above: Performed By: #### U AMIC #### [facility] [address] [place] [address] Dr. Marvin Reis Ketones Ql (U) Negative Normal NEGATIVE [facility] Comment on above: Performed By: #### U AMIC #### [facility] [address] [place] [address] Dr. Marvin Reis LEUKOCYTES MODERATE Abnormal NEGATIVE [facility] Comment on above: Performed By: #### U AMIC #### [facility] [address] [address] [address] Marvin Reis MUCOUS NONE SEEN Normal NONE SEEN [facility] Comment on above: Performed By: #### U AMIC #### [facility] [address] [address] [address] Marvin Reis Nitrite Ql (U) Negative Normal NEGATIVE [facility] Comment on above: Performed By: #### U AMIC #### [facility] [address] [address] [address] Marvin Reis pH (U) 6.0 [pH] Normal 5-9 [facility] Comment on above: Performed By: #### U AMIC #### [facility] [address] [place] [address] Dr. Marvin Reis RBC NONE SEEN Abnormal 0-2 [facility] Comment on above: Performed By: #### U AMIC #### [facility] [address] [place] [address] Dr. Marvin Reis SPEC GRAVITY 1.015 Normal 1.005-<=1.025 [facility] Comment on above: Performed By: #### U AMIC #### [facility] [address] [address] [address] Marvin Reis UA PROTEIN Negative Normal NEGATIVE/ TRACE [facility] Comment on above: Performed By: #### U AMIC #### [facility] [address] [address] [address] Marvin Reis Urobilinogen Qn (U) 0.2 {Robbie'U}/dL Normal 0.2 - 1. 0 [facility] Comment on above: Performed By: #### U AMIC #### [facility] [address] [place] [address] Dr. Marvin Reis WBC 10-20 Abnormal NONE SEEN [facility] Comment on above: Performed By: #### U AMIC #### [facility] [address] [place] [address] Dr. Marvin Reis Coding Summary.on 06-21-2020 Coding Summary. CODING DATE: 06/21/[address] [facility] STATUS: PAYOR: Worker's Compensation ADMIT DX: [...] Date Saved: 06/21/2020 12:01 pm [facility] PT - Assessmentson 0 PT - Assessments [id number]# 1.00CD:127 [facility] PT - Orderson 06-20-2020 PT - Orders [id number]# 1.00CD:127 [facility] PT - Workers Compon 06-20-20 20 PT - Workers Comp [id number]# 1.00CD:127 [facility] Encounters Encounter Date Encounter Type Care Provider Facility Start: 03-10-2023 End: 03-11-2023 ambulatory [facility] Start: 03-03-2023 End: 03-03-[address] [...] Facility:[facility] Payers Date Payer Category Payer Medicare [id number] 1961 Unknown [id number] 1960 Unknown [id number] 2.16.84 [id number] 1960 Unknown [id number] 2.16.84 0.1.879829.3.579.2.593 1958 Unknown [id number] 2.16.84 0.1.336497.3.579.2.593 1958 Unknown [id number] 2.16.84 0.1.282705.3.579.2.593 1958 Unknown [id number] 2.16.84 0.1.164959.3.579.2.593 1958 Unknown [id number] 2.16.84 0.1.459859.3.579.2.593 1958 Unknown [id number] 2.16.84 0.1.685989.3.579.2.593 1958 Unknown [id number] 2.16.84 0.1.570785.3.579.2.593 1958 Unknown [id number] 2.16.84 0.1.538338.3.579.2.593 1958 Unknown [id number] 2.16.84 0.1.677628.3.579.2.593 1958 Unknown [id number] 2.16.84 0.1.873781.3.579.2.593 1958 Unknown [id number] 2.16.84 0.1.851570.3.579.2.593 1958 Unknown [id number] 2.16.84 0.1.090495.3.579.2.593 1958 Unknown [id number] 2.16.84 0.1.195264.3.579.2.593 1958 Unknown [id number] 2.16.84 0.1.417084.3.579.2.593 1958 Unknown [id number] 2.16.84 0.1.671045.3.579.2.593 1958 Unknown [id number] 2.16.84 0.1.900820.3.579.2.593 1958 Unknown [id number] 2.16.84 0.1.426109.3.579.2.593 1958 Unknown [id number] 2.16.84 0.1.061142.3.579.2.593 Summary Purpose Family History No Family History [...] and content) DATE CREATED AUTHOR 09/19/2020 [facility] DATE CREATED AUTHOR AUTHOR'S ORGANIZ ATION 03/06/2023 [facility] DATE CREATED AUTHOR AUTHOR'S ORGANIZ ATION 03/11/2023 [facility] DATE CREATED AUTHOR AUTHOR'S ORGANIZ ATION 06/07/2023 [facility] FOR RECORDS PERTAINING TO PATIENTS [...] BE BASED ON THE PRIMARY CLINICAL RECORDS. [facility]. provides no warranty or guarantee of the accuracy or completeness of information in this document.
[2024-08-14 12:17] LABS: Bilirubin Urine NEGATIVE (NEGATIVE); Blood Urine MODERATE (NEGATIVE); Color Urine YELLOW (YELLOW); Glucose Urine UA NEGATIVE (NEGATIVE); Ketones Urine NEGATIVE (NEGATIVE); Leukocyte Esterase Urine MODERATE (NEGATIVE); Nitrite Urine NEGATIVE (NEGATIVE); Protein Urine 100 mg/dL (NEG/TRACE); Urobilinogen Urine 0.2 EU/dL (0.2-1.0)
[2024-08-14 12:19] LABS: Clarity Urine CLOUDY (CLEAR)
[2024-08-14 12:35] LABS: RBC Urine NONE SEEN #/HPF (0-2); WBC Urine >100 #/HPF (NONE SEEN)
[2024-08-14 12:36] LABS: Bacteria Urine MODERATE #/HPF (NONE SEEN); Cast Seen? NONE SEEN #/LPF (NONE SEEN); Crystals Seen? None Seen #/HPF (None Seen); Mucus Urine NONE SEEN (NONE SEEN); Squamous Epithelial Cell Urine NONE SEEN #/LPF (NONE/RARE); Urine Culture Indicated ALREADY ORDERED
== END 2024-08-14 11:30 | disposition home or self-care (01) ==
LOC: LAB 11:29
PROVIDERS: PCP Family Medicine; Visit Provider Family Medicine
DX: N31.9 Neuromuscular dysfunction of bladder, unspecified (principal)
CPT/HCPCS: 81001; 87086

== ENCOUNTER 2024-08-17 07:52 | Outpatient (RCR) | payer OTHER, SELFPAY ==
[2024-08-09 10:53] VITALS: BP 96/61; PULSE 76; TEMP 36.2; O2SAT 94
[2024-08-09] MEDS: SODIUM CHLORIDE 0.9% IV (11:20)
[2024-08-09] MEDS: TOBRAMYCIN SULFATE IV (11:20)
[2024-08-09 11:30] LABS: Anion Gap 16.7; BUN Creatinine Ratio 21.4; Calcium 8.3 mg/dL (8.5-10.1); Carbon Dioxide 15.7 mmol/L (21.0-32.0); Chloride 112 mmol/L (98-107); Estimated GFR (African America 25 (>=60 mL/min/1.73m^2); Estimated GFR (Non-African Ame 20 (>=60 mL/min/1.73m^2); Glucose 88 mg/dL (74-106); Potassium 4.4 mmol/L (3.5-5.1); Sodium 140 mmol/L (136-145)
--- NOTE | 2024-08-09 11:32 | PC.NURSE ---
1120: IV Tobramycin initiated at this time. Pt. denies needs or c/o. at chairside.
--- NOTE | 2024-08-09 12:14 | PC.NURSE ---
1203: IV Tobramycin completed without adverse reaction. IV to SLF and wrapped with Coban dressing. Pt and pt's instructed to return this evening at 2130 for lab draw. Both relay understanding. Pt. d/c'd via w/c to home with .
--- NOTE | 2024-08-09 21:49 | PC.NURSE ---
Patient arrived via patient specialized wheelchair and patient's in accompaniment. Unable to draw lab from established IV. Blood draw via venapuncture to left wrist. Pressure applied and 2x2 with band aid applied over site. Patient without any complaints. Patient left with .
[2024-08-12 12:20] VITALS: BP 90/50; PULSE 64; TEMP 36.4; O2SAT 94
--- NOTE | 2024-08-12 13:43 | PC.NURSE ---
1220: Pt. to [facility] via electric w/c accompanied by . Pt with existing SLF to left hand. Flushes easily and without s&s of infiltration or infection. Blood drawn for Tobramycin trough. VSS. Given juice and warm blanket. 1254: No trough results at this time. Lab phoned per this RN and states machine to run it broke down and currently being repaired. Pt. and notified. Both understanding. 1346: No results at this time. cath lab radiology technician states specimen is running at this time. Pt. updated. Remains pleasant and understanding.
[2024-08-12 14:29] LABS: Tobramycin Trough 5.5 ug/mL (<=2.0)
[2024-08-12 15:10] LABS: Anion Gap 19.6; BUN Creatinine Ratio 20.9; Calcium 7.8 mg/dL (8.5-10.1); Chloride 111 mmol/L (98-107); Estimated GFR (African America 22 (>=60 mL/min/1.73m^2); Estimated GFR (Non-African Ame 18 (>=60 mL/min/1.73m^2); Glucose 94 mg/dL (74-106); Potassium 4.6 mmol/L (3.5-5.1); Sodium 140 mmol/L (136-145)
[2024-08-14 11:40] LABS: Anion Gap 18.5; BUN Creatinine Ratio 20.6; Calcium 7.9 mg/dL (8.5-10.1); Carbon Dioxide 13.5 mmol/L (21.0-32.0); Chloride 115 mmol/L (98-107); Estimated GFR (African America 19 (>=60 mL/min/1.73m^2); Estimated GFR (Non-African Ame 16 (>=60 mL/min/1.73m^2); Glucose 99 mg/dL (74-106); Sodium 142 mmol/L (136-145)
[2024-08-17] MEDS: LEVOFLOXACIN IN DEXTROSE 5 % 750 MG/150 ML PREMIX 100 MG IV (11:34)
[2024-08-17 11:44] VITALS: BP 71/38; PULSE 58; TEMP 35.9; O2SAT 94
--- NOTE | 2024-08-17 14:13 | PC.NURSE ---
8416 infusion completed, tolerated well. IV site left hand flushed with ns, wrapped site with coban. Released per wheelchair accompanied by
== END 2024-09-02 23:59 | disposition home or self-care (01) ==
LOC: INF 07:52
PROVIDERS: PCP Family Medicine; Visit Provider Family Medicine
DX: N28.9 Disorder of kidney and ureter, unspecified (principal); N39.0 Urinary tract infection, site not specified
CPT/HCPCS: 36415; 76775; 80048; 80200; 96365; J3260

== ENCOUNTER 2024-08-18 16:41 | Inpatient (IN) | payer OTHER, SELFPAY ==
[2024-08-18] VITALS (40 sets, daily range): BP systolic 67–100; BP diastolic 32–57; PULSE 68–108; TEMP 36.6; O2SAT 91–100; BMI 35.9; BMI 28.0
--- OUTSIDE RECORDS SUMMARY | 2024-08-18 16:48 | XMS_ITS | CCD ---
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 Name Role Phone HOY ., DR WEBBER [...] Unavailable HOY ., DR WEBBER Admherman Unavailable LENGBY, DR MAGY [employer] Unavailable HOY ., [...] ceFAZolin Drug Allergy 04-21-20 13 [facility] Repository (1 source) Cilastatin / Imipenem Drug Allergy 04-21-20 13 [facility] Repository (1 source) Readi-Cat Drug allergy (disorder) 04-21-20 13 [facility] Repository (1 source) ceFAZolin; Translations: [CEFAZOLIN] Drug Allergy 12-01-19 13 [facility] Repository (1 source) Cephalexin; Translations: [CEPHALEXIN MONOHYDRATE] Drug Allergy 08-03-20 09 [facility] Repository (1 source) Promazine; Translations: [PROMAZINE] Drug Allergy 12-01-19 13 [facility] Repository (1 source) Sulfamethoxazole / Trimethoprim; Translations: [SULFAMETHOXAZOLE-TR IMETHOPRIM] Drug Allergy 03-10-20 23 [facility] Repository (1 source) IODINATED CONTRAST MEDIA; Translations: [IODINATED CONTRAST MEDIA] Propensity to adverse reactions to drug (disorder) 12-01-19 13 [facility] Repository Problems Active Problems Problem [...] RESISTANT TO ALL B-LACTAM DRUGS. PERFORMED BY: [place] [address] PATHOLOGIST ROLLER MECHANIC MARLA VEGA M.D. [facility] Comment on above: Performed By: #### A MAI LAYNE #### [place] [id number] [place] Gram Stainon 06-03-2023 Microscopic observation Gram stain Nom (Unsp spec) Gram Stain Result No Bacteria Seen PERFORMED BY: [place] [address] PATHOLOGIST ROLLER MECHANIC MARLA VEGA M.D. [facility] Comment on above: Performed By: #### A MAI LAYNE #### [place] [id number] [place] CULTURE URINEon 03-06-2023 CULTURE URINE Isolate [...] Levofloxacin 2 S F Normal [facility] Comment on above: Performed By: #### U RCX #### [facility] [address] [place] [address] Dr. Marvin Reis UA RANDOM W/MICROSCOPICon BACTERIA SMALL Abnormal NONE SEEN [facility] Comment on above: Performed By: #### U AMIC #### [facility] [address] [place] [address] Dr. Marvin Reis Bilirubin Ql (U) Negative Normal NEGATIVE The [facility] Comment on above: Performed By: #### U AMIC #### [facility] [address] [place] [address] Dr. Marvin Reis CAST NONE SEEN Normal NONE SEEN [facility] Comment on above: Performed By: #### U AMIC #### [facility] [address] [place] [address] Dr. Marvin Reis Clarity (U) CLEAR Normal CLEAR [facility] Comment on above: Performed By: #### U AMIC #### [facility] [address] [place] [address] Dr. Marvin Reis Color (U) LT. YELLOW Normal YELLOW [facility] Comment on above: Performed By: #### U AMIC #### [facility] [address] [address] [address] Marvin Reis Crystals LM Nom (Urine sed) NONE SEEN Normal NONE SEEN [facility] Comment on above: Performed By: #### U AMIC #### [facility] [address] [place] [address] Dr. Marvin Reis Epithelial cells LM Ql (Urine sed) RARE Normal NONE SEEN /RARE [facility] Comment on above: Performed By: #### U AMIC #### [facility] [address] [address] [address] Marvin Reis Glucose Ql (U) Negative Normal NEGATIVE [facility] Comment on above: Performed By: #### U AMIC #### [facility] [address] [place] [address] Dr. Marvin Reis Hemoglobin Ql (U) Negative Normal NEGATIVE The [facility] Comment on above: Performed By: #### U AMIC #### [facility] [address] [place] [address] Dr. Marvin Reis Ketones Ql (U) Negative Normal NEGATIVE [facility] Comment on above: Performed By: #### U AMIC #### [facility] [address] [place] [address] Dr. Marvin Reis LEUKOCYTES SMALL Abnormal NEGATIVE [facility] Comment on above: Performed By: #### U AMIC #### [facility] [address] [place] [address] Dr. Marvin Reis MUCOUS NONE SEEN Normal NONE SEEN [facility] Comment on above: Performed By: #### U AMIC #### [facility] [address] [place] [address] Dr. Marvin Reis Nitrite Ql (U) Negative Normal NEGATIVE [facility] Comment on above: Performed By: #### U AMIC #### [facility] [address] [place] [address] Dr. Marvin Reis pH (U) 6.0 [pH] Normal 5-9 [facility] Comment on above: Performed By: #### U AMIC #### [facility] [address] [place] [address] Dr. Marvin Reis RBC 0-2 Normal 0-2 [facility] Comment on above: Performed By: #### U AMIC #### [facility] [address] [place] [address] Dr. Marvin Reis SPEC GRAVITY 1.010 Normal 1.005-<=1.025 [facility] Comment on above: Performed By: #### U AMIC #### [facility] [address] [address] [address] Marvin Reis UA PROTEIN Negative Normal NEGATIVE/ TRACE The [facility] Comment on above: Performed By: #### U AMIC #### [facility] [address] [place] [address] Dr. Marvin Reis Urobilinogen Qn (U) 0.2 {Robbie'U}/dL Normal 0.2 - 1. 0 [facility] Comment on above: Performed By: #### U AMIC #### [facility] [address] [place] [address] Dr. Marvin Reis WBC 5-10 Abnormal NONE SEEN [facility] Comment on above: Performed By: #### U AMIC #### [facility] [address] [place] [address] Dr. Marvin Reis CULTURE URINEon 02-13-2023 CULTURE [...] Levofloxacin 2 S F Normal [facility] Comment on above: Performed By: #### U RCX #### [facility] [address] [place] [address] Dr. Marvin Reis UA RANDOM W/MICROSCOPICon BACTERIA MODERATE Abnormal NONE SEEN [facility] Comment on above: Performed By: #### U AMIC #### [facility] [address] [place] [address] Dr. Marvin Reis Bilirubin Ql (U) Negative Normal NEGATIVE The [facility] Comment on above: Performed By: #### U AMIC #### [facility] [address] [place] [address] Dr. Marvin Reis CAST NONE SEEN Normal NONE SEEN [facility] Comment on above: Performed By: #### U AMIC #### [facility] [address] [place] [address] Dr. Marvin Reis Clarity (U) CLEAR Normal CLEAR [facility] Comment on above: Performed By: #### U AMIC #### [facility] [address] [place] [address] Dr. Marvin Reis Color (U) LT. YELLOW Normal YELLOW [facility] Comment on above: Performed By: #### U AMIC #### [facility] [address] [place] [address] Dr. Marvin Reis Crystals LM Nom (Urine sed) NONE SEEN Normal NONE SEEN [facility] Comment on above: Performed By: #### U AMIC #### [facility] [address] [place] [address] Dr. Marvin Reis Epithelial cells LM Ql (Urine sed) MODERATE Abnormal NONE SEEN /RARE [facility] Comment on above: Performed By: #### U AMIC #### [facility] [address] [place] [address] Dr. Marvin Reis Glucose Ql (U) Negative Normal NEGATIVE [facility] Comment on above: Performed By: #### U AMIC #### [facility] [address] [place] [address] Dr. Marvin Reis Hemoglobin Ql (U) SMALL Abnormal NEGATIVE [facility] Comment on above: Performed By: #### U AMIC #### [facility] [address] [address] [address] Marvin Reis Ketones Ql (U) Negative Normal NEGATIVE [facility] Comment on above: Performed By: #### U AMIC #### [facility] [address] [address] [address] Marvin Reis LEUKOCYTES LARGE Abnormal NEGATIVE [facility] Comment on above: Performed By: #### U AMIC #### [facility] [address] [address] [address] Marvin Reis MUCOUS NONE SEEN Normal NONE SEEN [facility] Comment on above: Performed By: #### U AMIC #### [facility] [address] [place] [address] Dr. Marvin Reis Nitrite Ql (U) Positive Abnormal NEGATIVE [facility] Comment on above: Performed By: #### U AMIC #### [facility] [address] [address] [address] Marvin Reis pH (U) 5.5 [pH] Normal 5-9 [facility] Comment on above: Performed By: #### U AMIC #### [facility] [address] [address] [address] Marvin Reis RBC 5-10 Abnormal 0-2 [facility] Comment on above: Performed By: #### U AMIC #### [facility] [address] [address] [address] Marvin Reis SPEC GRAVITY 1.015 Normal 1.005-<=1.025 [facility] Comment on above: Performed By: #### U AMIC #### [facility] [address] [address] [address] Marvin Reis UA PROTEIN Negative Normal NEGATIVE/ TRACE [facility] Comment on above: Performed By: #### U AMIC #### [facility] [address] [place] [address] Dr. Marvin Reis Urobilinogen Qn (U) 0.2 {Robbie'U}/dL Normal 0.2 - 1. 0 [facility] Comment on above: Performed By: #### U AMIC #### [facility] [address] [place] [address] Dr. Marvin Reis WBC 50-75 Abnormal NONE SEEN [facility] Comment on above: Performed By: #### U AMIC #### [facility] [id number] Marvin Reis CULTURE URINEon 01-23-2023 CULTURE [...] hoxazole <=10 S F Normal [facility] Comment on above: Performed By: #### U AMIC #### [facility] [address] [place] [address] Dr. Marvin Reis UA RANDOM W/MICROSCOPICon BACTERIA TRACE Abnormal NONE SEEN [facility] Comment on above: Performed By: #### U AMIC #### [facility] [address] [place] [address] Dr. Marvin Reis Bilirubin Ql (U) Negative Normal NEGATIVE [facility] Comment on above: Performed By: #### U AMIC #### [facility] [address] [address] [address] Marvin Reis CAST NONE SEEN Normal NONE SEEN [facility] Comment on above: Performed By: #### U AMIC #### [facility] [address] [address] [address] Marvin Reis Clarity (U) SL CLOUDY Abnormal CLEAR [facility] Comment on above: Performed By: #### U AMIC #### [facility] [address] [address] [address] Marvin Reis Color (U) LT. YELLOW Normal YELLOW [facility] Comment on above: Performed By: #### U AMIC #### [facility] [address] [place] [address] Dr. Marvin Reis Crystals LM Nom (Urine sed) NONE SEEN Normal NONE SEEN [facility] Comment on above: Performed By: #### U AMIC #### [facility] [address] [place] [address] Dr. Marvin Reis Epithelial cells LM Ql (Urine sed) NONE SEEN Normal NONE SEEN /RARE [facility] Comment on above: Performed By: #### U AMIC #### [facility] [address] [place] [address] Dr. Marvin Reis Glucose Ql (U) Negative Normal NEGATIVE [facility] Comment on above: Performed By: #### U AMIC #### [facility] [address] [address] [address] Marvin Reis Hemoglobin Ql (U) Negative Normal NEGATIVE [facility] Comment on above: Performed By: #### U AMIC #### [facility] [address] [address] [address] Marvin Reis Ketones Ql (U) Negative Normal NEGATIVE [facility] Comment on above: Performed By: #### U AMIC #### [facility] [address] [place] [address] Dr. Marvin Reis LEUKOCYTES TRACE Abnormal NEGATIVE [facility] Comment on above: Performed By: #### U AMIC #### [facility] [address] [address] [address] Marvin Reis MUCOUS NONE SEEN Normal NONE SEEN [facility] Comment on above: Performed By: #### U AMIC #### [facility] [address] [place] [address] Dr. Marvin Reis Nitrite Ql (U) Negative Normal NEGATIVE [facility] Comment on above: Performed By: #### U AMIC #### [facility] [address] [place] [address] Dr. Marvin Reis pH (U) 6.0 [pH] Normal 5-9 [facility] Comment on above: Performed By: #### U AMIC #### [facility] [address] [place] [address] Dr. Marvin Reis RBC NONE SEEN Abnormal 0-2 [facility] Comment on above: Performed By: #### U AMIC #### [facility] [address] [place] [address] Dr. Marvin Reis SPEC GRAVITY 1.020 Normal 1.005-<=1.025 [facility] Comment on above: Performed By: #### U AMIC #### [facility] [address] [place] [address] Dr. Marvin Reis UA PROTEIN Negative Normal NEGATIVE/ TRACE [facility] Comment on above: Performed By: #### U AMIC #### [facility] [address] [place] [address] Dr. Marvin Reis Urobilinogen Qn (U) 0.2 {Robbie'U}/dL Normal 0.2 - 1. 0 [facility] Comment on above: Performed By: #### U AMIC #### [facility] [address] [place] [address] Dr. Marvin Reis WBC 10-20 Abnormal NONE SEEN [facility] Comment on above: Performed By: #### U AMIC #### [facility] [address] [place] [address] Dr. Marvin Reis CULTURE URINEon 01-07-2023 CULTURE URINE Isolate 1 Dawna albicans 10,000 cfu/mL of Normal [facility] Comment on above: Performed By: #### U RCX #### [facility] [address] [address] [address] Marvin Reis UA RANDOM W/MICROSCOPICon BACTERIA TRACE Abnormal NONE SEEN [facility] Comment on above: Performed By: #### U AMIC #### [facility] [address] [address] [address] Marvin Reis Bilirubin Ql (U) Negative Normal NEGATIVE The [facility] Comment on above: Performed By: #### U AMIC #### [facility] [address] [address] [address] Marvin Reis CA OX CRYSTALS RARE Normal [facility] Comment on above: Performed By: #### U AMIC #### [facility] [address] [address] [address] Marvin Reis CAST NONE SEEN Normal NONE SEEN [facility] Comment on above: Performed By: #### U AMIC #### [facility] [address] [address] [address] Marvin Reis Clarity (U) CLEAR Normal CLEAR [facility] Comment on above: Performed By: #### U AMIC #### [facility] [address] [address] [address] Marvin Reis Color (U) LT. YELLOW Normal YELLOW [facility] Comment on above: Performed By: #### U AMIC #### [facility] [address] [address] [address] Marvin Reis Crystals LM Nom (Urine sed) SEEN Abnormal NONE SEEN [facility] Comment on above: Performed By: #### U AMIC #### [facility] [address] [address] [address] Marvin Reis Epithelial cells LM Ql (Urine sed) FEW Abnormal NONE SEEN /RARE [facility] Comment on above: Performed By: #### U AMIC #### [facility] [address] [address] [address] Marvin Reis Glucose Ql (U) Negative Normal NEGATIVE [facility] Comment on above: Performed By: #### U AMIC #### [facility] [address] [address] [address] Marvin Reis Hemoglobin Ql (U) Negative Normal NEGATIVE [facility] Comment on above: Performed By: #### U AMIC #### [facility] [address] [address] [address] Marvin Reis Ketones Ql (U) Negative Normal NEGATIVE [facility] Comment on above: Performed By: #### U AMIC #### [facility] [address] [address] [address] Marvin Reis LEUKOCYTES SMALL Abnormal NEGATIVE [facility] Comment on above: Performed By: #### U AMIC #### [facility] [address] [place] [address] Dr. Marvin Reis MUCOUS NONE SEEN Normal NONE SEEN [facility] Comment on above: Performed By: #### U AMIC #### [facility] [address] [place] [address] Dr. Marvin Reis Nitrite Ql (U) Negative Normal NEGATIVE [facility] Comment on above: Performed By: #### U AMIC #### [facility] [address] [place] [address] Dr. Marvin Reis pH (U) 5.5 [pH] Normal 5-9 [facility] Comment on above: Performed By: #### U AMIC #### [facility] [address] [place] [address] Dr. Marvin Reis RBC 0-2 Normal 0-2 [facility] Comment on above: Performed By: #### U AMIC #### [facility] [address] [place] [address] Dr. Marvin Reis SPEC GRAVITY 1.015 Normal 1.005-<=1.025 [facility] Comment on above: Performed By: #### U AMIC #### [facility] [address] [place] [address] Dr. Marvin Reis UA PROTEIN Negative Normal NEGATIVE/ TRACE [facility] Comment on above: Performed By: #### U AMIC #### [facility] [address] [place] [address] Dr. Marvin Reis Urobilinogen Qn (U) 0.2 {Robbie'U}/dL Normal 0.2 - 1. 0 [facility] Comment on above: Performed By: #### U AMIC #### [facility] [address] [place] [address] Dr. Marvin Reis WBC 50-75 Abnormal NONE SEEN [facility] Comment on above: Performed By: #### U AMIC #### [facility] [address] [place] [address] Dr. Marvin Reis YEAST PRESENT Abnormal NONE SEEN [facility] Comment on above: Performed By: #### U AMIC #### [facility] [address] [place] [address] Dr. Marvin Reis CULTURE URINEon 12-25-2022 CULTURE [...] hoxazole >=320 R F Normal [facility] Comment on above: Performed By: #### U RCX #### [facility] [address] [place] [address] Dr. Marvin Reis UA RANDOM W/MICROSCOPICon BACTERIA NONE SEEN Normal NONE SEEN [facility] Comment on above: Performed By: #### U AMIC #### [facility] [address] [place] [address] Dr. Marvin Reis Bilirubin Ql (U) Negative Normal NEGATIVE The [facility] Comment on above: Performed By: #### U AMIC #### [facility] [address] [place] [address] Dr. Marvin Reis CAST NONE SEEN Normal NONE SEEN [facility] Comment on above: Performed By: #### U AMIC #### [facility] [address] [place] [address] Dr. Marvin Reis Clarity (U) CLEAR Normal CLEAR [facility] Comment on above: Performed By: #### U AMIC #### [facility] [address] [address] [address] Marvin Reis Color (U) LT. YELLOW Normal YELLOW [facility] Comment on above: Performed By: #### U AMIC #### [facility] [address] [place] [address] Dr. Marvin Reis Crystals LM Nom (Urine sed) NONE SEEN Normal NONE SEEN [facility] Comment on above: Performed By: #### U AMIC #### [facility] [address] [place] [address] Dr. Marvin Reis Epithelial cells LM Ql (Urine sed) RARE Normal NONE SEEN /RARE [facility] Comment on above: Performed By: #### U AMIC #### [facility] [address] [place] [address] Dr. Marvin Reis Glucose Ql (U) Negative Normal NEGATIVE [facility] Comment on above: Performed By: #### U AMIC #### [facility] [address] [place] [address] Dr. Marvin Reis Hemoglobin Ql (U) Negative Normal NEGATIVE [facility] Comment on above: Performed By: #### U AMIC #### [facility] [address] [address] [address] Marvin Reis Ketones Ql (U) Negative Normal NEGATIVE [facility] Comment on above: Performed By: #### U AMIC #### [facility] [address] [place] [address] Dr. Marvin Reis LEUKOCYTES MODERATE Abnormal NEGATIVE [facility] Comment on above: Performed By: #### U AMIC #### [facility] [address] [place] [address] Dr. Marvin Reis MUCOUS NONE SEEN Normal NONE SEEN [facility] Comment on above: Performed By: #### U AMIC #### [facility] [address] [place] [address] Dr. Marvin Reis Nitrite Ql (U) Negative Normal NEGATIVE [facility] Comment on above: Performed By: #### U AMIC #### [facility] [address] [place] [address] Dr. Marvin Reis pH (U) 5.5 [pH] Normal 5-9 [facility] Comment on above: Performed By: #### U AMIC #### [facility] [address] [place] [address] Dr. Marvin Reis RBC NONE SEEN Abnormal 0-2 [facility] Comment on above: Performed By: #### U AMIC #### [facility] [address] [place] [address] Dr. Marvin Reis SPEC GRAVITY 1.015 Normal 1.005-<=1.025 [facility] Comment on above: Performed By: #### U AMIC #### [facility] [address] [place] [address] Dr. Marvin Reis UA PROTEIN Negative Normal NEGATIVE/ TRACE [facility] Comment on above: Performed By: #### U AMIC #### [facility] [address] [place] [address] Dr. Marvin Reis Urobilinogen Qn (U) 0.2 {Robbie'U}/dL Normal 0.2 - 1. 0 [facility] Comment on above: Performed By: #### U AMIC #### [facility] [address] [place] [address] Dr. Marvin Reis WBC 10-20 Abnormal NONE SEEN [facility] Comment on above: Performed By: #### U AMIC #### [facility] [address] [place] [address] Dr. Marvin Reis CULTURE URINEon 12-05-2022 CULTURE [...] hoxazole <=20 S F Normal [facility] Comment on above: Performed By: #### U RCX #### [facility] [address] [place] [address] Dr. Marvin Reis CREATININEon 12-03-2022 Creatinine [Mass/Vol] 0.88 mg/dL Normal 0.70-1.30 [facility] Comment on above: Performed By: #### U RCX #### [facility] [address] [place] [address] Dr. Marvin Reis EGFR-AF COSTA RICAN >60 Normal >=60 [facility] Comment on above: Performed By: #### U RCX #### [facility] [address] [place] [address] Dr. Marvin Reis EGFR-NON AF [place] >60 Normal >=60 [facility] Comment on above: Performed By: #### U RCX #### [facility] [address] [place] [address] ABDOMEN WO/W CONon [...] PARKER Date: 2022-12-03 14:51 Normal [facility] UA RANDOM W/MICROSCOPICon BACTERIA TRACE Abnormal NONE SEEN [facility] Comment on above: Performed By: #### U RCX #### [facility] [address] [place] [address] Dr. Marvin Reis Bilirubin Ql (U) Negative Normal NEGATIVE [facility] Comment on above: Performed By: #### U RCX #### [facility] [address] [place] [address] Dr. Marvin Reis CAST NONE SEEN Normal NONE SEEN [facility] Comment on above: Performed By: #### U RCX #### [facility] [address] [place] [address] Dr. Marvin Reis Clarity (U) CLEAR Normal CLEAR [facility] Comment on above: Performed By: #### U RCX #### [facility] [address] [place] [address] Dr. Marvin Reis Color (U) LT. YELLOW Normal YELLOW [facility] Comment on above: Performed By: #### U RCX #### [facility] [address] [place] [address] Dr. Marvin eRis Crystals LM Nom (Urine sed) NONE SEEN Normal NONE SEEN [facility] Comment on above: Performed By: #### U RCX #### [facility] [address] [place] [address] Dr. Marvin Reis Epithelial cells LM Ql (Urine sed) RARE Normal NONE SEEN /RARE [facility] Comment on above: Performed By: #### U RCX #### [facility] [address] [address] [address] Marvin Reis Glucose Ql (U) Negative Normal NEGATIVE [facility] Comment on above: Performed By: #### U RCX #### [facility] [address] [address] [address] Marvin Reis Hemoglobin Ql (U) TRACE-INTACT Abnormal NEGATIVE [facility] Comment on above: Performed By: #### U RCX #### [facility] [address] [address] [address] Marvin Reis Ketones Ql (U) Negative Normal NEGATIVE [facility] Comment on above: Performed By: #### U RCX #### [facility] [address] [place] [address] Dr. Marvin Reis LEUKOCYTES TRACE Abnormal NEGATIVE [facility] Comment on above: Performed By: #### U RCX #### [facility] [address] [address] [address] Marvin Reis MUCOUS TRACE Abnormal NONE SEEN [facility] Comment on above: Performed By: #### U RCX #### [facility] [address] [place] [address] Dr. Marvin Reis Nitrite Ql (U) Negative Normal NEGATIVE [facility] Comment on above: Performed By: #### U RCX #### [facility] [address] [address] [address] Marvin Reis pH (U) 5.0 [pH] Normal 5-9 [facility] Comment on above: Performed By: #### U RCX #### [facility] [address] [address] [address] Marvin Reis RBC 0-2 Normal 0-2 [facility] Comment on above: Performed By: #### U RCX #### [facility] [address] [place] [address] Dr. Marvin Reis SPEC GRAVITY 1.010 Normal 1.005-<=1.025 [facility] Comment on above: Performed By: #### U RCX #### [facility] [address] [place], [place] [address] Dr. Marvin Reis UA PROTEIN TRACE Normal NEGATIVE/ TRACE [facility] Comment on above: Performed By: #### U RCX #### [facility] [address] [place], [place] [address] Dr. Marvin Reis Urobilinogen Qn (U) 0.2 {Robbie'U}/dL Normal 0.2 - 1. 0 [facility] Comment on above: Performed By: #### U RCX #### [facility] [address] [address] [address] Marvin Reis WBC 2-5 Abnormal NONE SEEN [facility] Comment on above: Performed By: #### U RCX #### [facility] [address] [address] ABD/PELVIS WO CONon [...] COMER Date: 2022-11-20 14:51 Normal [facility] CULTURE URINEon 11-11-2022 CULTURE URINE Culture Observations : GUSTABO TO FOLLOW. Isolate 1 Enterobacter aerogenes >100,000 cfu/mL of Normal [facility] Comment on above: Performed By: #### U RCX #### [facility] [address] [place] [address] Dr. Marvin Reis UA RANDOM W/MICROSCOPICon BACTERIA SMALL Abnormal NONE SEEN [facility] Comment on above: Performed By: #### U AMIC #### [facility] [address] [place] [address] Dr. Marvin Reis Bilirubin Ql (U) Negative Normal NEGATIVE [facility] Comment on above: Performed By: #### U AMIC #### [facility] [address] [place] [address] Dr. Marvin Reis CAST NONE SEEN Normal NONE SEEN [facility] Comment on above: Performed By: #### U AMIC #### [facility] [address] [place] [address] Dr. Marvin Reis Clarity (U) CLOUDY Abnormal CLEAR [facility] Comment on above: Performed By: #### U AMIC #### [facility] [address] [place] [address] Dr. Marvin Reis Color (U) LT. YELLOW Normal YELLOW [facility] Comment on above: Performed By: #### U AMIC #### [facility] [address] [address] [address] Marvin Reis Crystals LM Nom (Urine sed) NONE SEEN Normal NONE SEEN [facility] Comment on above: Performed By: #### U AMIC #### [facility] [address] [address] [address] Marvin Reis Epithelial cells LM Ql (Urine sed) NONE SEEN Normal NONE SEEN /RARE [facility] Comment on above: Performed By: #### U AMIC #### [facility] [address] [address] [address] Marvin Reis Glucose Ql (U) Negative Normal NEGATIVE [facility] Comment on above: Performed By: #### U AMIC #### [facility] [address] [place] [address] Dr. Marvin Reis Hemoglobin Ql (U) TRACE-INTACT Abnormal NEGATIVE [facility] Comment on above: Performed By: #### U AMIC #### [facility] [address] [address] [address] Marvin Reis Ketones Ql (U) Negative Normal NEGATIVE [facility] Comment on above: Performed By: #### U AMIC #### [facility] [address] [address] [address] Marvin Reis LEUKOCYTES LARGE Abnormal NEGATIVE [facility] Comment on above: Performed By: #### U AMIC #### [facility] [address] [address] [address] Marvin Reis MUCOUS NONE SEEN Normal NONE SEEN [facility] Comment on above: Performed By: #### U AMIC #### [facility] [address] [place] [address] Dr. Marvin Reis Nitrite Ql (U) Positive Abnormal NEGATIVE [facility] Comment on above: Performed By: #### U AMIC #### [facility] [address] [place] [address] Dr. Marvin Resi pH (U) 5.5 [pH] Normal 5-9 [facility] Comment on above: Performed By: #### U AMIC #### [facility] [address] [place] [address] Dr. Marvin Reis RBC 0-2 Normal 0-2 [facility] Comment on above: Performed By: #### U AMIC #### [facility] [address] [place] [address] Dr. Marvin Reis SPEC GRAVITY 1.015 Normal 1.005-<=1.025 [facility] Comment on above: Performed By: #### U AMIC #### [facility] [address] [place] [address] Dr. Marvin Reis UA PROTEIN Negative Normal NEGATIVE/ TRACE [facility] Comment on above: Performed By: #### U AMIC #### [facility] [address] [place] [address] Dr. Marvin Reis Urobilinogen Qn (U) 0.2 {Robbie'U}/dL Normal 0.2 - 1. 0 [facility] Comment on above: Performed By: #### U AMIC #### [facility] [address] [place] [address] Dr. Marvin Reis WBC 10-20 Abnormal NONE SEEN [facility] Comment on above: Performed By: #### U AMIC #### [facility] [address] [place] [address] Dr. Marvin Reis CULTURE URINEon 10-24-2022 CULTURE [...] hoxazole <=20 S F Normal [facility] Comment on above: Performed By: #### U RCX #### [facility] [address] [place] [address] Dr. Marvin Reis UA RANDOM W/MICROSCOPICon BACTERIA LARGE Abnormal NONE SEEN [facility] Comment on above: Performed By: #### U AMIC #### [facility] [address] [address] [address] Marvin Reis Bilirubin Ql (U) Negative Normal NEGATIVE [facility] Comment on above: Performed By: #### U AMIC #### [facility] [address] [address] [address] Marvin Reis CAST NONE SEEN Normal NONE SEEN [facility] Comment on above: Performed By: #### U AMIC #### [facility] [address] [address] [address] Marvin Reis Clarity (U) SL CLOUDY Abnormal CLEAR [facility] Comment on above: Performed By: #### U AMIC #### [facility] [address] [address] [address] Marvin Reis Color (U) YELLOW Normal YELLOW [facility] Comment on above: Performed By: #### U AMIC #### [facility] [address] [address] [address] Marvin Reis Crystals LM Nom (Urine sed) NONE SEEN Normal NONE SEEN [facility] Comment on above: Performed By: #### U AMIC #### [facility] [address] [address] [address] aMrvin Reis Epithelial cells LM Ql (Urine sed) FEW Abnormal NONE SEEN /RARE [facility] Comment on above: Performed By: #### U AMIC #### [facility] [address] [address] [address] Marvin Reis Glucose Ql (U) Negative Normal NEGATIVE [facility] Comment on above: Performed By: #### U AMIC #### [facility] [address] [address] [address] Marvin Reis Hemoglobin Ql (U) TRACE-INTACT Abnormal NEGATIVE [facility] Comment on above: Performed By: #### U AMIC #### [facility] [address] [address] [address] Marvin Reis Ketones Ql (U) Negative Normal NEGATIVE [facility] Comment on above: Performed By: #### U AMIC #### [facility] [address] [address] [address] Marvin Reis LEUKOCYTES LARGE Abnormal NEGATIVE [facility] Comment on above: Performed By: #### U AMIC #### [facility] [address] [address] [address] Marvin Reis MUCOUS NONE SEEN Normal NONE SEEN [facility] Comment on above: Performed By: #### U AMIC #### [facility] [address] [address] [address] Marvin Reis Nitrite Ql (U) Negative Normal NEGATIVE [facility] Comment on above: Performed By: #### U AMIC #### [facility] [address] [address] [address] Marvin Reis pH (U) 5.0 [pH] Normal 5-9 [facility] Comment on above: Performed By: #### U AMIC #### [facility] [address] [address] [address] Marvin Reis RBC 5-10 Abnormal 0-2 [facility] Comment on above: Performed By: #### U AMIC #### [facility] [address] [address] [address] Marvin Reis SPEC GRAVITY 1.010 Normal 1.005-<=1.025 [facility] Comment on above: Performed By: #### U AMIC #### [facility] [address] [place] [address] Dr. Marvin Reis UA PROTEIN Negative Normal NEGATIVE/ TRACE [facility] Comment on above: Performed By: #### U AMIC #### [facility] [address] [place] [address] Dr. Marvin Reis Urobilinogen Qn (U) 0.2 {Robbie'U}/dL Normal 0.2 - 1. 0 [facility] Comment on above: Performed By: #### U AMIC #### [facility] [address] [address] [address] Marvin Reis WBC 50-75 Abnormal NONE SEEN [facility] Comment on above: Performed By: #### U AMIC #### [facility] [address] [address] [address] Marvin Reis CULTURE URINEon 10-01-2022 CULTURE URINE Culture Observations : NO GROWTH. Normal [facility] Comment on above: Performed By: #### U AMIC #### [facility] [address] [address] [address] Marvin Reis UA RANDOM W/MICROSCOPICon BACTERIA SMALL Abnormal NONE SEEN [facility] Comment on above: Performed By: #### U AMIC #### [facility] [address] [address] [address] Marvin Reis Bilirubin Ql (U) Negative Normal NEGATIVE [facility] Comment on above: Performed By: #### U AMIC #### [facility] [address] [address] [address] Marvin Reis CAST SEEN Abnormal NONE SEEN [facility] Comment on above: Performed By: #### U AMIC #### [facility] [address] [address] [address] Marvin Reis Clarity (U) CLEAR Normal CLEAR [facility] Comment on above: Performed By: #### U AMIC #### [facility] [address] [address] [address] Marvin Reis Color (U) LT. YELLOW Normal YELLOW [facility] Comment on above: Performed By: #### U AMIC #### [facility] [address] [address] [address] Marvin Reis Crystals LM Nom (Urine sed) NONE SEEN Normal NONE SEEN [facility] Comment on above: Performed By: #### U AMIC #### [facility] [address] [address] [address] Marvin Reis Epithelial cells LM Ql (Urine sed) FEW Abnormal NONE SEEN /RARE [facility] Comment on above: Performed By: #### U AMIC #### [facility] [address] [place] [address] Dr. Marvin Reis Glucose Ql (U) Negative Normal NEGATIVE [facility] Comment on above: Performed By: #### U AMIC #### [facility] [address] [place] [address] Dr. Marvin Reis Hemoglobin Ql (U) TRACE-INTACT Abnormal NEGATIVE [facility] Comment on above: Performed By: #### U AMIC #### [facility] [address] [address] [address] Marvin Reis HYALINE CAST FEW Normal [facility] Comment on above: Performed By: #### U AMIC #### [facility] [address] [place] [address] Dr. Mravin Reis Ketones Ql (U) Negative Normal NEGATIVE [facility] Comment on above: Performed By: #### U AMIC #### [facility] [address] [place] [address] Dr. Marvin Reis LEUKOCYTES MODERATE Abnormal NEGATIVE [facility] Comment on above: Performed By: #### U AMIC #### [facility] [address] [place] [address] Dr. Marvin Reis MUCOUS SMALL Abnormal NONE SEEN [facility] Comment on above: Performed By: #### U AMIC #### [facility] [address] [place] [address] Dr. Marvin Reis Nitrite Ql (U) Negative Normal NEGATIVE [facility] Comment on above: Performed By: #### U AMIC #### [facility] [address] [place] [address] Dr. Marvin Reis pH (U) 5.5 [pH] Normal 5-9 [facility] Comment on above: Performed By: #### U AMIC #### [facility] [address] [place] [address] Dr. Marvin Reis RBC 0-2 Normal 0-2 [facility] Comment on above: Performed By: #### U AMIC #### [facility] [address] [place] [address] Dr. Marvin Reis SPEC GRAVITY 1.020 Normal 1.005-<=1.025 [facility] Comment on above: Performed By: #### U AMIC #### [facility] [address] [place] [address] Dr. Marvin Reis UA PROTEIN Negative Normal NEGATIVE/ TRACE [facility] Comment on above: Performed By: #### U AMIC #### [facility] [address] [address] [address] Marvin Reis Urobilinogen Qn (U) 0.2 {Robbie'U}/dL Normal 0.2 - 1. 0 [facility] Comment on above: Performed By: #### U AMIC #### [facility] [address] [address] [address] Marvin Reis WBC 10-20 Abnormal NONE SEEN [facility] Comment on above: Performed By: #### U AMIC #### [facility] [address] [address] [address] Marvin Reis CULTURE URINEon 09-26-2022 CULTURE [...] hoxazole <=20 S F Normal [facility] Comment on above: Performed By: #### U RCX #### [facility] [address] [place] [address] Dr. Marvin Reis CBC W MANUAL DIFFon 09-25-20 ANISOCYTOSIS SLIGHT Normal [facility] Comment on above: Performed By: #### U RCX #### [facility] [address] [place] [address] Dr. Marvin Reis ATYPICAL LYMPH # Normal [facility] Comment on above: Performed By: #### U RCX #### [facility] [address] [place] [address] Dr. Marvin Reis ATYPICAL LYMPH % Normal [facility] Comment on above: Performed By: #### U RCX #### [facility] [address] [place] [address] Dr. Marvin Reis BAND # Normal 0.0-0.3 [facility] Comment on above: Performed By: #### U RCX #### [facility] [address] [place] [address] Dr. Marvin Reis BAND % Normal 0-5 [facility] Comment on above: Performed By: #### U RCX #### [facility] [address] [place] [address] Dr. Marvin Reis BASOM # 0.00 103/ul Normal 0.00-0.10 [facility] Comment on above: Performed By: #### U RCX #### [facility] [address] [place] [address] Dr. Marvin Reis BASOM % 0.0 % Critically low 0.2-2.0 [facility] Comment on above: Performed By: #### U RCX #### [facility] [address] [place] [address] Dr. Marvin Reis BLAST # Normal [facility] Comment on above: Performed By: #### U RCX #### [facility] [address] [place] [address] Dr. Marvin Reis BLAST % Normal [facility] Comment on above: Performed By: #### U RCX #### [facility] [address] [place] [address] Dr. Marvin Reis CORRECTED WBC Normal 4.0-11.0 [facility] Comment on above: Performed By: #### U RCX #### [facility] [address] [place] [address] Dr. Marvin Reis EOS # 0.00 103/ul Normal 0.00-0.70 [facility] Comment on above: Performed By: #### U RCX #### [facility] [address] [place] [address] Dr. Marvin Reis EOS% 0.0 % Critically low 0.9-7.0 [facility] Comment on above: Performed By: #### U RCX #### [facility] [address] [place] [address] Dr. Marvin Reis HCT 32.1 % Critically low 42.0-54.0 [facility] Comment on above: Performed By: #### U RCX #### [facility] [address] [address] [address] Marvin Reis HGB 10.2 g/dl Critically low 14.0-18.0 [facility] Comment on above: Performed By: #### U RCX #### [facility] [address] [address] [address] Marvin Reis LYMPHM # 0.76 103/ul Critically low 1.20-3.80 [facility] Comment on above: Performed By: #### U RCX #### [facility] [address] [place] [address] Dr. Marvin Reis LYMPHM% 14.0 % Critically low 20.5-60.0 [facility] Comment on above: Performed By: #### U RCX #### [facility] [address] [place] [address] Dr. Marvin Reis MCH 26.5 pg Normal 25.9-34.0 [facility] Comment on above: Performed By: #### U RCX #### [facility] [address] [place] [address] Dr. Marvin Reis MCHC 31.8 g/dl Normal 29.9-35.2 [facility] [facility] Comment on above: Performed By: #### U RCX #### [facility] [address] [place] [address] Dr. Marvin Reis MCV 83.4 fL Normal 80.0-94.0 [facility] Comment on above: Performed By: #### U RCX #### [facility] [address] [address] [address] Marvin Reis METAMYELOCYTE # Normal [facility] Comment on above: Performed By: #### U RCX #### [facility] [address] [place] [address] Dr. Marvin Reis METAMYELOCYTE % Normal [facility] Comment on above: Performed By: #### U RCX #### [facility] [address] [address] [address] Marvin Reis MONOM# 0.27 103/ul Critically low 0.30-0.80 [facility] Comment on above: Performed By: #### U RCX #### [facility] [address] [address] [address] Marvin Reis MONOM% 5.0 % Normal 1.7-12.0 [facility] Comment on above: Performed By: #### U RCX #### [facility] [address] [address] [address] Marvin Reis MPV 9.8 fL Normal 9.5-13.5 [facility] Comment on above: Performed By: #### U RCX #### [facility] [address] [place] [address] Dr. Marvin Reis MYELOCYTE # Normal [facility] Comment on above: Performed By: #### U RCX #### [facility] [address] [address] [address] Marvin Reis MYELOCYTE % Normal [facility] Comment on above: Performed By: #### U RCX #### [facility] [address] [place] [address] Dr. Marvin Reis NRBC Normal [facility] Comment on above: Performed By: #### U RCX #### [facility] [address] [place] [address] Dr. Marvin Reis PLT 78 103/ul Critically low 150-450 [facility] Comment on above: Performed By: #### U RCX #### [facility] [address] [address] [address] Marvin Reis RBC 3.85 106/ul Critically low 4.70-6.10 [facility] Comment on above: Performed By: #### U RCX #### [facility] [address] [place] [address] Dr. Marvin Reis RDW 15.8 % Critically high 11.0-15.0 [facility] Comment on above: Performed By: #### U RCX #### [facility] [address] [address] [address] Marvin Reis SEG # 4.37 103/ul Normal 1.40-6.50 [facility] Comment on above: Performed By: #### U RCX #### [facility] [address] [address] [address] Marvin Reis SEG % 81.0 % Critically high 43.0-75.0 [facility] Comment on above: Performed By: #### U RCX #### [facility] [address] [place] [address] Dr. Marvin Reis WBC 5.4 103/ul Normal 4.0-11.0 [facility] Comment on above: Performed By: #### U RCX #### [facility] [address] [place] [address] Dr. Marvin Reis CRPon 09-25-2022 CRP 8.9 mg/dL Critically high <=1.0 [facility] Comment on above: Performed By: #### U AMIC #### [facility] [address] [place] [address] Dr. Marvin Reis LACTATE/LACTIC ACIDon 2021 Lactate [Moles/Vol] 0.9 mmol/L Normal 0.4-1.9 [facility] Comment on above: Performed By: #### U RCX #### [facility] [address] [place] [address] Dr. Marvin Reis PROF 14(COMP METB)on 022 Albumin [Mass/Vol] 2.6 g/dL Critically low 3.4-5.0 [facility] Comment on above: Performed By: #### U AMIC #### [facility] [address] [address] [address] Marvin Reis Albumin/Globulin [Mass ratio] 0.7 {ratio} Normal [facility] Comment on above: Performed By: #### U AMIC #### [facility] [address] [address] [address] Marvin Reis ALP [Catalytic activity/Vol] 75 U/L Normal 46-116 [facility] Comment on above: Performed By: #### U AMIC #### [facility] [address] [address] [address] Marvin Reis ALT [Catalytic activity/Vol] 23 U/L Normal 16-63 [facility] Comment on above: Performed By: #### U AMIC #### [facility] [address] [address] [address] Marvin Reis Anion gap [Moles/Vol] 11.8 mmol/L Normal [facility] Comment on above: Performed By: #### U AMIC #### [facility] [address] [address] [address] Marvin Reis AST [Catalytic activity/Vol] 21 U/L Normal 15-37 [facility] Comment on above: Performed By: #### U AMIC #### [facility] [address] [address] [address] Marvin Reis Bilirubin [Mass/Vol] 0.8 mg/dL Normal 0.2-1.0 [facility] Comment on above: Performed By: #### U AMIC #### [facility] [address] [address] [address] Marvin Reis Calcium [Mass/Vol] 8.7 mg/dL Normal 8.5-10.1 [facility] Comment on above: Performed By: #### U AMIC #### [facility] [address] [address] [address] Marvin Reis Chloride [Moles/Vol] 105 mmol/L Normal 98-107 [facility] Comment on above: Performed By: #### U AMIC #### [facility] [address] [address] [address] Marvin Reis CO2 [Moles/Vol] 26.1 mmol/L Normal 21.0-32.0 [facility] Comment on above: Performed By: #### U AMIC #### [facility] [address] [address] [address] Marvin Reis Creatinine [Mass/Vol] 0.88 mg/dL Normal 0.70-1.30 [facility] Comment on above: Performed By: #### U AMIC #### [facility] [address] [address] [address] Marvin Reis EGFR-AF [place] >60 Normal >=60 [facility] Comment on above: Performed By: #### U AMIC #### [facility] [address] [address] [address] Marvin Reis EGFR-NON AF [place] >60 Normal >=60 [facility] Comment on above: Performed By: #### U AMIC #### [facility] [address] [address] [address] Marvin Reis Globulin (S) [Mass/Vol] 3.7 g/dL Normal [facility] Comment on above: Performed By: #### U AMIC #### [facility] [address] [address] [address] Marvin Reis Glucose [Mass/Vol] 93 mg/dL Normal 74-106 [facility] Comment on above: Performed By: #### U AMIC #### [facility] [address] [address] [address] Marvin Reis Potassium [Moles/Vol] 3.9 mmol/L Normal 3.5-5.1 [facility] Comment on above: Performed By: #### U AMIC #### [facility] [address] [address] [address] Marvin Reis Protein [Mass/Vol] 6.3 g/dL Critically low 6.4-8.2 [facility] Comment on above: Performed By: #### U AMIC #### [facility] [address] [address] [address] Marvin Reis Sodium [Moles/Vol] 139 mmol/L Normal 136-145 [facility] Comment on above: Performed By: #### U AMIC #### [facility] [address] [address] [address] Marvin Reis Urea nitrogen [Mass/Vol] 20.0 mg/dL Critically high 7.0-18.0 [facility] Comment on above: Performed By: #### U AMIC #### [facility] [address] [place] [address] Dr. Marvin Reis Urea nitrogen/Creatinine [Mass ratio] 22.7 mg/mg Normal [facility] Comment on above: Performed By: #### U AMIC #### [facility] [address] [place] [address] Dr. Marvin Reis SED RATE WESTERGRENon 2021 SED RATE 49 mm/hr Critically high <=20 [facility] Comment on above: Performed By: #### U AMIC #### [facility] [address] [place] [address] Dr. Marvin Reis CBC W MANUAL DIFFon 09-24-20 ATYPICAL LYMPH # Normal [facility] Comment on above: Performed By: #### U RCX #### [facility] [address] [place] [address] Dr. Marvin Reis ATYPICAL LYMPH % Normal [facility] Comment on above: Performed By: #### U RCX #### [facility] [address] [place] [address] Dr. Marvin Reis BAND # Normal 0.0-0.3 [facility] Comment on above: Performed By: #### U RCX #### [facility] [address] [place] [address] Dr. Marvin Reis BAND % Normal 0-5 [facility] Comment on above: Performed By: #### U RCX #### [facility] [address] [place] [address] Dr. Marvin Reis BASOM # 0.00 103/ul Normal 0.00-0.10 [facility] Comment on above: Performed By: #### U RCX #### [facility] [address] [address] [address] Marvin Reis BASOM % 0.0 % Critically low 0.2-2.0 [facility] Comment on above: Performed By: #### U RCX #### [facility] [address] [place] [address] Dr. Marvin Reis BLAST # Normal [facility] Comment on above: Performed By: #### U RCX #### [facility] [address] [address] [address] Marvin Reis BLAST % Normal [facility] Comment on above: Performed By: #### U RCX #### [facility] [address] [place] [address] Dr. Marvin Reis CORRECTED WBC Normal 4.0-11.0 [facility] Comment on above: Performed By: #### U RCX #### [facility] [address] [address] [address] Marvin Reis EOS # 0.00 103/ul Normal 0.00-0.70 [facility] Comment on above: Performed By: #### U RCX #### [facility] [address] [place] [address] Dr. Marvin Reis EOS% 0.0 % Critically low 0.9-7.0 [facility] Comment on above: Performed By: #### U RCX #### [facility] [address] [place] [address] Dr. Marvin Reis HCT 33.5 % Critically low 42.0-54.0 [facility] Comment on above: Performed By: #### U RCX #### [facility] [address] [place] [address] Dr. Marvin Reis HGB 10.9 g/dl Critically low 14.0-18.0 [facility] Comment on above: Performed By: #### U RCX #### [facility] [address] [place] [address] Dr. Marvin Reis LYMPHM # 0.52 103/ul Critically low 1.20-3.80 [facility] Comment on above: Performed By: #### U RCX #### [facility] [address] [place] [address] Dr. Marvin Reis LYMPHM% 4.0 % Critically low 20.5-60.0 [facility] Comment on above: Performed By: #### U RCX #### [facility] [address] [place] [address] Dr. Marvin Reis MCH 27.2 pg Normal 25.9-34.0 [facility] Comment on above: Performed By: #### U RCX #### [facility] [address] [place] [address] Dr. Marvin Reis MCHC 32.5 g/dl Normal 29.9-35.2 [facility] Comment on above: Performed By: #### U RCX #### [facility] [address] [address] [address] Marvin Reis MCV 83.5 fL Normal 80.0-94.0 [facility] Comment on above: Performed By: #### U RCX #### [facility] [address] [place] [address] Dr. Marvin Reis METAMYELOCYTE # Normal [facility] Comment on above: Performed By: #### U RCX #### [facility] [address] [place] [address] Dr. Marvin Reis METAMYELOCYTE % Normal [facility] Comment on above: Performed By: #### U RCX #### [facility] [address] [place] [address] Dr. Marvin Reis MONOM# 0.39 103/ul Normal 0.30-0.80 [facility] Comment on above: Performed By: #### U RCX #### [facility] [address] [place] [address] Dr. Marvin Reis MONOM% 3.0 % Normal 1.7-12.0 [facility] Comment on above: Performed By: #### U RCX #### [facility] [address] [place] [address] Dr. Marvin Reis MPV 10.5 fL Normal 9.5-13.5 [facility] Comment on above: Performed By: #### U RCX #### [facility] [address] [place] [address] Dr. Marvin Reis MYELOCYTE # Normal [facility] Comment on above: Performed By: #### U RCX #### [facility] [address] [place] [address] Dr. Marvin Reis MYELOCYTE % Normal [facility] Comment on above: Performed By: #### U RCX #### [facility] [address] [address] [address] Marvin Reis NRBC Normal [facility] Comment on above: Performed By: #### U RCX #### [facility] [address] [address] [address] Marvin Reis PLT 96 103/ul Critically low 150-450 [facility] Comment on above: Performed By: #### U RCX #### [facility] [address] [address] [address] Marvin Reis RBC 4.01 106/ul Critically low 4.70-6.10 [facility] Comment on above: Performed By: #### U RCX #### [facility] [address] [address] [address] Marvin Reis RDW 15.8 % Critically high 11.0-15.0 [facility] Comment on above: Performed By: #### U RCX #### [facility] [address] [address] [address] Marvin Reis SEG # 12.00 103/ul Critically high 1.40-6.50 [facility] Comment on above: Performed By: #### U RCX #### [facility] [address] [address] [address] Marvin Reis SEG % 93.0 % Critically high 43.0-75.0 [facility] Comment on above: Performed By: #### U RCX #### [facility] [address] [address] [address] Marvin Reis WBC 12.9 103/ul Critically high 4.0-11.0 [facility] Comment on above: Performed By: #### U RCX #### [facility] [address] [address] [address] Marvin Reis CRPon 09-24-2022 CRP 8.4 mg/dL Critically high <=1.0 [facility] Comment on above: Performed By: #### U AMIC #### [facility] [address] [address] [address] Marvin Reis LACTATE/LACTIC ACIDon 2021 Lactate [Moles/Vol] 2.2 mmol/L Critically high 0.4-1.9 [facility] Comment on above: Performed By: #### L ACT #### [facility] [address] [address] [address] Marvin Reis PROF 14(COMP METB)on 022 Albumin [Mass/Vol] 2.8 g/dL Critically low 3.4-5.0 [facility] Comment on above: Performed By: #### U AMIC #### [facility] [address] [place] [address] Dr. Marvin Reis Albumin/Globulin [Mass ratio] 0.7 {ratio} Normal [facility] Comment on above: Performed By: #### U AMIC #### [facility] [address] [place] [address] Dr. Marvin Reis ALP [Catalytic activity/Vol] 80 U/L Normal 46-116 [facility] Comment on above: Performed By: #### U AMIC #### [facility] [address] [place] [address] Dr. Marvin Reis ALT [Catalytic activity/Vol] 20 U/L Normal 16-63 [facility] Comment on above: Performed By: #### U AMIC #### [facility] [address] [place] [address] Dr. Marvin Reis Anion gap [Moles/Vol] 12.3 mmol/L Normal [facility] Comment on above: Performed By: #### U AMIC #### [facility] [address] [place] [address] Dr. Marvin Reis AST [Catalytic activity/Vol] 17 U/L Normal 15-37 [facility] Comment on above: Performed By: #### U AMIC #### [facility] [address] [place] [address] Dr. Marvin Reis Bilirubin [Mass/Vol] 1.0 mg/dL Normal 0.2-1.0 [facility] Comment on above: Performed By: #### U AMIC #### [facility] [address] [address] [address] Marvin Reis Calcium [Mass/Vol] 9.0 mg/dL Normal 8.5-10.1 [facility] Comment on above: Performed By: #### U AMIC #### [facility] [address] [address] [address] Marvin Reis Chloride [Moles/Vol] 106 mmol/L Normal 98-107 [facility] Comment on above: Performed By: #### U AMIC #### [facility] [address] [address] [address] Marvin Reis CO2 [Moles/Vol] 25.8 mmol/L Normal 21.0-32.0 [facility] Comment on above: Performed By: #### U AMIC #### [facility] [address] [place] [address] Dr. Marvin Reis Creatinine [Mass/Vol] 1.08 mg/dL Normal 0.70-1.30 [facility] Comment on above: Performed By: #### U AMIC #### [facility] [address] [address] [address] Marvin Reis EGFR-AF [place] >60 Normal >=60 [facility] Comment on above: Performed By: #### U AMIC #### [facility] [address] [address] [address] Marvin Reis EGFR-NON AF [place] >60 Normal >=60 [facility] Comment on above: Performed By: #### U AMIC #### [facility] [address] [address] [address] Marvin Reis Globulin (S) [Mass/Vol] 3.8 g/dL Normal [facility] Comment on above: Performed By: #### U AMIC #### [facility] [address] [address] [address] Marvin Reis Glucose [Mass/Vol] 117 mg/dL Critically high 74-106 [facility] Comment on above: Performed By: #### U AMIC #### [facility] [address] [address] [address] Marvin Reis Potassium [Moles/Vol] 4.1 mmol/L Normal 3.5-5.1 [facility] Comment on above: Performed By: #### U AMIC #### [facility] [address] [address] [address] Marvin Reis Protein [Mass/Vol] 6.6 g/dL Normal 6.4-8.2 [facility] Comment on above: Performed By: #### U AMIC #### [facility] [address] [address] [address] Marvin Reis Sodium [Moles/Vol] 140 mmol/L Normal 136-145 [facility] Comment on above: Performed By: #### U AMIC #### [facility] [address] [place] [address] Dr. Marvin Reis Urea nitrogen [Mass/Vol] 23.0 mg/dL Critically high 7.0-18.0 [facility] Comment on above: Performed By: #### U AMIC #### [facility] [address] [place] [address] Dr. Marvin Reis Urea nitrogen/Creatinine [Mass ratio] 21.3 mg/mg Normal [facility] Comment on above: Performed By: #### U AMIC #### [facility] [address] [place] [address] Dr. Marvin Reis SED RATE [facility] 2021 SED RATE 51 mm/hr Critically high <=20 [facility] Comment on above: Performed By: #### U RCX #### [facility] [address] [place] [address] Dr. Marvin Reis UA RANDOMon 09-24-2022 Bilirubin Ql (U) Negative Normal NEGATIVE [facility] Comment on above: Performed By: #### U AMIC #### [facility] [address] [place] [address] Dr. Marvin Reis Clarity (U) CLEAR Normal CLEAR [facility] Comment on above: Performed By: #### U AMIC #### [facility] [address] [place] [address] Dr. Marvin Reis Color (U) LT. YELLOW Normal YELLOW [facility] Comment on above: Performed By: #### U AMIC #### [facility] [address] [address] [address] Marvin Reis Glucose Ql (U) Negative Normal NEGATIVE [facility] Comment on above: Performed By: #### U AMIC #### [facility] [address] [address] [address] Marvin Reis Hemoglobin Ql (U) LARGE Abnormal NEGATIVE [facility] Comment on above: Performed By: #### U AMIC #### [facility] [address] [address] [address] Marvin Reis Ketones Ql (U) Negative Normal NEGATIVE [facility] Comment on above: Performed By: #### U AMIC #### [facility] [address] [place] [address] Dr. Marvin Reis LEUKOCYTES MODERATE Abnormal NEGATIVE [facility] Comment on above: Performed By: #### U AMIC #### [facility] [address] [place] [address] Dr. Marvin Reis Nitrite Ql (U) Negative Normal NEGATIVE [facility] Comment on above: Performed By: #### U AMIC #### [facility] [address] [address] [address] Marvin Reis pH (U) 5.5 [pH] Normal 5-9 [facility] Comment on above: Performed By: #### U AMIC #### [facility] [address] [address] [address] Marvin Reis SPEC GRAVITY 1.020 Normal 1.005-<=1.025 [facility] Comment on above: Performed By: #### U AMIC #### [facility] [address] [place] [address] Dr. Marvin Reis UA PROTEIN Negative Normal NEGATIVE/ TRACE [facility] Comment on above: Performed By: #### U AMIC #### [facility] [address] [place] [address] Dr. Marvin Reis Urobilinogen Qn (U) 0.2 {Robbie'U}/dL Normal 0.2 - 1. 0 [facility] Comment on above: Performed By: #### U AMIC #### [facility] [address] [place] [address] Dr. Marvin Reis CULTURE URINEon 09-13-2022 CULTURE [...] Oxacillin >=4 R F Normal [facility] Comment on above: Performed By: #### U RCX #### [facility] [address] [place] [address] Dr. Marvin Reis UA RANDOM W/MICROSCOPICon BACTERIA TRACE Abnormal NONE SEEN [facility] Comment on above: Performed By: #### U AMIC #### [facility] Laboratory [address] [place] [address] Dr. Marvin Reis Bilirubin Ql (U) Negative Normal NEGATIVE The [facility] Comment on above: Performed By: #### U AMIC #### [facility] [address] [place] [address] Dr. Marvin Reis CAST NONE SEEN Normal NONE SEEN [facility] Comment on above: Performed By: #### U AMIC #### [facility] [address] [place] [address] Dr. Marvin Reis Clarity (U) CLEAR Normal CLEAR [facility] Comment on above: Performed By: #### U AMIC #### [facility] [address] [place] [address] Dr. Marvin Reis Color (U) LT. YELLOW Normal YELLOW [facility] Comment on above: Performed By: #### U AMIC #### [facility] [address] [address] [address] Marvin Reis Crystals LM Nom (Urine sed) NONE SEEN Normal NONE SEEN [facility] Comment on above: Performed By: #### U AMIC #### [facility] [address] [address] [address] Marvin Reis Epithelial cells LM Ql (Urine sed) FEW Abnormal NONE SEEN /RARE [facility] Comment on above: Performed By: #### U AMIC #### [facility] [address] [address] [address] Marvin Reis Glucose Ql (U) Negative Normal NEGATIVE The [facility] Comment on above: Performed By: #### U AMIC #### [facility] [address] [address] [address] Marvin Reis Hemoglobin Ql (U) Negative Normal NEGATIVE The [facility] Comment on above: Performed By: #### U AMIC #### [facility] [address] [address] [address] Marvin Reis Ketones Ql (U) Negative Normal NEGATIVE [facility] Comment on above: Performed By: #### U AMIC #### [facility] [address] [address] [address] Marvin Reis LEUKOCYTES LARGE Abnormal NEGATIVE [facility] Comment on above: Performed By: #### U AMIC #### [facility] [address] [address] [address] Marvin Reis MUCOUS NONE SEEN Normal NONE SEEN [facility] Comment on above: Performed By: #### U AMIC #### [facility] [address] [address] [address] Marvin Reis Nitrite Ql (U) Negative Normal NEGATIVE [facility] Comment on above: Performed By: #### U AMIC #### [facility] [address] [address] [address] Marvin Reis pH (U) 5.5 [pH] Normal 5-9 [facility] Comment on above: Performed By: #### U AMIC #### [facility] [address] [address] [address] Marvin Reis RBC 0-2 Normal 0-2 [facility] Comment on above: Performed By: #### U AMIC #### [facility] [address] [place] [address] Dr. Marvin Reis SPEC GRAVITY 1.025 Normal 1.005-<=1.025 [facility] Comment on above: Performed By: #### U AMIC #### [facility] [address] [place] [address] Dr. Marvin Reis UA PROTEIN Negative Normal NEGATIVE/ TRACE [facility] Comment on above: Performed By: #### U AMIC #### [facility] [address] [place] [address] Dr. Marvin Reis Urobilinogen Qn (U) 0.2 {Robbie'U}/dL Normal 0.2 - 1. 0 [facility] Comment on above: Performed By: #### U AMIC #### [facility] [address] [place] [address] Dr. Marvin Reis WBC 10-20 Abnormal NONE SEEN [facility] Comment on above: Performed By: #### U AMIC #### [facility] [address] [place] [address] Dr. Marvin Reis CULTURE URINEon 08-17-2022 CULTURE [...] hoxazole <=20 S F Normal [facility] Comment on above: Performed By: #### U RCX #### [facility] [address] [place] [address] Dr. Marvin Reis UA RANDOM W/MICROSCOPICon 10 -13-2022 BACTERIA MODERATE Abnormal NONE SEEN [facility] Comment on above: Performed By: #### U RCX #### [facility] [address] [address] [address] Marvin Reis Bilirubin Ql (U) Negative Normal NEGATIVE [facility] Comment on above: Performed By: #### U RCX #### [facility] [address] [place] [address] Dr. Marvin Reis CAST NONE SEEN Normal NONE SEEN [facility] Comment on above: Performed By: #### U RCX #### [facility] [address] [address] [address] Mavrin Reis Clarity (U) SL CLOUDY Abnormal CLEAR [facility] Comment on above: Performed By: #### U RCX #### [facility] [address] [place] [address] Dr. Marvin Reis Color (U) LT. YELLOW Normal YELLOW [facility] Comment on above: Performed By: #### U RCX #### [facility] [address] [address] [address] Marvin Reis Crystals LM Nom (Urine sed) NONE SEEN Normal NONE SEEN [facility] Comment on above: Performed By: #### U RCX #### [facility] [address] [place] [address] Dr. Marvin Reis Epithelial cells LM Ql (Urine sed) RARE Normal NONE SEEN /RARE [facility] Comment on above: Performed By: #### U RCX #### [facility] [address] [place] [address] Dr. Marvin Reis Glucose Ql (U) Negative Normal NEGATIVE [facility] Comment on above: Performed By: #### U RCX #### [facility] [address] [address] [address] Marvin Reis Hemoglobin Ql (U) SMALL Abnormal NEGATIVE [facility] Comment on above: Performed By: #### U RCX #### [facility] [address] [place] [address] Dr. Marvin Reis Ketones Ql (U) Negative Normal NEGATIVE [facility] Comment on above: Performed By: #### U RCX #### [facility] [address] [address] [address] Marvin Reis LEUKOCYTES MODERATE Abnormal NEGATIVE [facility] Comment on above: Performed By: #### U RCX #### [facility] [address] [place] [address] Dr. Marvin Reis MUCOUS NONE SEEN Normal NONE SEEN [facility] Comment on above: Performed By: #### U RCX #### [facility] [address] [address] [address] Marvin Reis Nitrite Ql (U) Positive Abnormal NEGATIVE [facility] Comment on above: Performed By: #### U RCX #### [facility] [address] [place] [address] Dr. Marvin Reis pH (U) 6.0 [pH] Normal 5-9 [facility] Comment on above: Performed By: #### U RCX #### [facility] [address] [place] [address] Dr. Marvin Reis RBC 0-2 Normal 0-2 [facility] Comment on above: Performed By: #### U RCX #### [facility] [address] [address] [address] Marvin Reis SPEC GRAVITY 1.015 Normal 1.005-<=1.025 [facility] Comment on above: Performed By: #### U RCX #### [facility] [address] [place] [address] Dr. Marvin Reis UA PROTEIN Negative Normal NEGATIVE/ TRACE [facility] Comment on above: Performed By: #### U RCX #### [facility] [address] [place] [address] Dr. Marvin Reis Urobilinogen Qn (U) 0.2 {Robbie'U}/dL Normal 0.2 - 1. 0 [facility] Comment on above: Performed By: #### U RCX #### [facility] [address] [place] [address] Dr. Marvin Reis WBC 10-20 Abnormal NONE SEEN [facility] Comment on above: Performed By: #### U RCX #### [facility] [address] [place] [address] Dr. Marvin Reis CULTURE URINEon 08-02-2022 CULTURE [...] hoxazole <=20 S F Normal [facility] Comment on above: Performed By: #### U RCX #### [facility] [address] [place] [address] Dr. Marvin Reis UA RANDOM W/MICROSCOPICon BACTERIA MODERATE Abnormal NONE SEEN [facility] Comment on above: Performed By: #### U AMIC #### [facility] [address] [place] [address] Dr. Marvin Reis Bilirubin Ql (U) Negative Normal NEGATIVE [facility] Comment on above: Performed By: #### U AMIC #### [facility] [address] [place] [address] Dr. Marvin Reis CAST NONE SEEN Normal NONE SEEN [facility] Comment on above: Performed By: #### U AMIC #### [facility] [address] [place] [address] Dr. Marvin Reis Clarity (U) SL CLOUDY Abnormal CLEAR [facility] Comment on above: Performed By: #### U AMIC #### [facility] [address] [place] [address] Dr. Marvin Reis Color (U) LT. YELLOW Normal YELLOW [facility] Comment on above: Performed By: #### U AMIC #### [facility] [address] [place] [address] Dr. Marvin Reis Crystals LM Nom (Urine sed) NONE SEEN Normal NONE SEEN [facility] Comment on above: Performed By: #### U AMIC #### [facility] [address] [address] [address] Marvin Reis Epithelial cells LM Ql (Urine sed) NONE SEEN Normal NONE SEEN /RARE [facility] Comment on above: Performed By: #### U AMIC #### [facility] [address] [address] [address] Marvin Reis Glucose Ql (U) Negative Normal NEGATIVE [facility] Comment on above: Performed By: #### U AMIC #### [facility] [address] [address] [address] Marvin Reis Hemoglobin Ql (U) TRACE-INTACT Abnormal NEGATIVE [facility] Comment on above: Performed By: #### U AMIC #### [facility] [address] [place] [address] Dr. Marvin Reis Ketones Ql (U) Negative Normal NEGATIVE [facility] Comment on above: Performed By: #### U AMIC #### [facility] [address] [address] [address] Marvin Reis LEUKOCYTES MODERATE Abnormal NEGATIVE [facility] Comment on above: Performed By: #### U AMIC #### [facility] [address] [address] [address] Marvin Reis MUCOUS NONE SEEN Normal NONE SEEN [facility] Comment on above: Performed By: #### U AMIC #### [facility] [address] [address] [address] Marvin Reis Nitrite Ql (U) Positive Abnormal NEGATIVE [facility] Comment on above: Performed By: #### U AMIC #### [facility] [address] [address] [address] Marvin Reis pH (U) 6.0 [pH] Normal 5-9 [facility] Comment on above: Performed By: #### U AMIC #### [facility] [address] [address] [address] Marvin Reis RBC 0-2 Normal 0-2 [facility] Comment on above: Performed By: #### U AMIC #### [facility] [address] [place] [address] Dr. Marvin Reis SPEC GRAVITY 1.015 Normal 1.005-<=1.025 [facility] Comment on above: Performed By: #### U AMIC #### [facility] [address] [place] [address] Dr. Marvin Reis UA PROTEIN Negative Normal NEGATIVE/ TRACE [facility] Comment on above: Performed By: #### U AMIC #### [facility] [address] [place] [address] Dr. Marvin Reis Urobilinogen Qn (U) 0.2 {Robbie'U}/dL Normal 0.2 - 1. 0 [facility] Comment on above: Performed By: #### U AMIC #### [facility] [address] [place] [address] Dr. Marvin Reis WBC 20-50 Abnormal NONE SEEN [facility] Comment on above: Performed By: #### U AMIC #### [facility] [address] [place] [address] Dr. Marvin Reis CULTURE URINEon 06-27-2022 CULTURE [...] Oxacillin >=4 R F Normal [facility] Comment on above: Performed By: #### U AMIC #### [facility] [address] [place] [address] Dr. Marvin Reis UA RANDOM W/MICROSCOPICon BACTERIA LARGE Abnormal NONE SEEN [facility] Comment on above: Performed By: #### U RCX #### [facility] [address] [address] [address] Marvin Reis Bilirubin Ql (U) Negative Normal NEGATIVE [facility] Comment on above: Performed By: #### U RCX #### [facility] [address] [address] [address] Marvin Reis CAST NONE SEEN Normal NONE SEEN [facility] Comment on above: Performed By: #### U RCX #### [facility] [address] [address] [address] Marvin Reis Clarity (U) CLEAR Normal CLEAR [facility] Comment on above: Performed By: #### U RCX #### [facility] [address] [place] [address] Dr. Marvin Reis Color (U) LT. YELLOW Normal YELLOW [facility] Comment on above: Performed By: #### U RCX #### [facility] [address] [place] [address] Dr. Marvin Reis Crystals LM Nom (Urine sed) NONE SEEN Normal NONE SEEN [facility] Comment on above: Performed By: #### U RCX #### [facility] [address] [address] [address] Marvin Reis Epithelial cells LM Ql (Urine sed) FEW Abnormal NONE SEEN /RARE [facility] Comment on above: Performed By: #### U RCX #### [facility] [address] [place] [address] Dr. Marvin Reis Glucose Ql (U) Negative Normal NEGATIVE [facility] Comment on above: Performed By: #### U RCX #### [facility] [address] [address] [address] Marvin Reis Hemoglobin Ql (U) TRACE-INTACT Abnormal NEGATIVE [facility] Comment on above: Performed By: #### U RCX #### [facility] [address] [place] [address] Dr. Marvin Reis Ketones Ql (U) Negative Normal NEGATIVE [facility] Comment on above: Performed By: #### U RCX #### [facility] [address] [address] [address] Marvin Reis LEUKOCYTES LARGE Abnormal NEGATIVE [facility] Comment on above: Performed By: #### U RCX #### [facility] [address] [place] [address] Dr. Marvin Reis MUCOUS NONE SEEN Normal NONE SEEN [facility] Comment on above: Performed By: #### U RCX #### [facility] [address] [place] [address] Dr. Marvin Reis Nitrite Ql (U) Positive Abnormal NEGATIVE [facility] Comment on above: Performed By: #### U RCX #### [facility] [address] [place] [address] Dr. Marvin Reis pH (U) 5.5 [pH] Normal 5-9 [facility] Comment on above: Performed By: #### U RCX #### [facility] [address] [place] [address] Dr. Marvin Reis RBC 2-5 Abnormal 0-2 [facility] Comment on above: Performed By: #### U RCX #### [facility] [address] [place] [address] Dr. Marvin Reis SPEC GRAVITY 1.015 Normal 1.005-<=1.025 [facility] Comment on above: Performed By: #### U RCX #### [facility] [address] [place] [address] Dr. Marvin Reis UA PROTEIN Negative Normal NEGATIVE/ TRACE [facility] Comment on above: Performed By: #### U RCX #### [facility] [address] [place] [address] Dr. Marvin Reis Urobilinogen Qn (U) 0.2 {Robbie'U}/dL Normal 0.2 - 1. 0 [facility] Comment on above: Performed By: #### U RCX #### [facility] [address] [place] [address] Dr. Marvin Reis WBC (U) [#/Vol] /uL Abnormal NONE SEEN [facility] Comment on above: Performed By: #### U RCX #### [facility] [address] [place] [address] Dr. Marvin Reis CULTURE URINEon 05-27-2022 CULTURE [...] Oxacillin >=4 R F Normal [facility] Comment on above: Performed By: #### U RCX #### [facility] [address] [place] [address] Dr. Marvin Reis UA RANDOM W/MICROSCOPICon BACTERIA MODERATE Abnormal NONE SEEN [facility] Comment on above: Performed By: #### U RCX #### [facility] [address] [place] [address] Dr. Marvin Reis Bilirubin Ql (U) Negative Normal NEGATIVE [facility] Comment on above: Performed By: #### U RCX #### [facility] [address] [place] [address] Dr. Marvin Reis CAST NONE SEEN Normal NONE SEEN [facility] Comment on above: Performed By: #### U RCX #### [facility] [address] [place] [address] Dr. Marvin Reis Clarity (U) SL CLOUDY Abnormal CLEAR [facility] Comment on above: Performed By: #### U RCX #### [facility] [address] [place] [address] Dr. Marvin Reis Color (U) LT. YELLOW Normal YELLOW [facility] Comment on above: Performed By: #### U RCX #### [facility] [address] [place] [address] Dr. Marvin Reis Crystals LM Nom (Urine sed) NONE SEEN Normal NONE SEEN [facility] Comment on above: Performed By: #### U RCX #### [facility] [address] [address] [address] Marvin Reis Epithelial cells LM Ql (Urine sed) FEW Abnormal NONE SEEN /RARE [facility] Comment on above: Performed By: #### U RCX #### [facility] [address] [address] [address] Marvin Reis Glucose Ql (U) Negative Normal NEGATIVE [facility] Comment on above: Performed By: #### U RCX #### [facility] [address] [address] [address] Marvin Reis Hemoglobin Ql (U) SMALL Abnormal NEGATIVE [facility] Comment on above: Performed By: #### U RCX #### [facility] [address] [place] [address] Dr. Marvin Reis Ketones Ql (U) Negative Normal NEGATIVE [facility] Comment on above: Performed By: #### U RCX #### [facility] [address] [address] [address] Marvin Reis LEUKOCYTES LARGE Abnormal NEGATIVE [facility] Comment on above: Performed By: #### U RCX #### [facility] [address] [address] [address] Marvin Reis MUCOUS TRACE Abnormal NONE SEEN [facility] Comment on above: Performed By: #### U RCX #### [facility] [address] [address] [address] Marvin Reis Nitrite Ql (U) Negative Normal NEGATIVE [facility] Comment on above: Performed By: #### U RCX #### [facility] [address] [address] [address] Marvin Reis pH (U) 6.0 [pH] Normal 5-9 [facility] Comment on above: Performed By: #### U RCX #### [facility] [address] [address] [address] Marvin Reis RBC 2-5 Abnormal 0-2 [facility] Comment on above: Performed By: #### U RCX #### [facility] [address] [address] [address] Marvin Reis SPEC GRAVITY 1.010 Normal 1.005-<=1.025 [facility] Comment on above: Performed By: #### U RCX #### [facility] [address] [address] [address] Marvin Reis UA PROTEIN Negative Normal NEGATIVE/ TRACE [facility] Comment on above: Performed By: #### U RCX #### [facility] [address] [address] [address] Marvin Reis Urobilinogen Qn (U) 0.2 {Robbie'U}/dL Normal 0.2 - 1. 0 [facility] Comment on above: Performed By: #### U RCX #### [facility] [address] [place] [address] Dr. Marvin Reis WBC 50-75 Abnormal NONE SEEN [facility] Comment on above: Performed By: #### U RCX #### [facility] [address] [place] [address] Dr. Marvin Reis CULTURE URINEon 04-18-2022 CULTURE [...] Oxacillin >=4 R F Normal [facility] Comment on above: Performed By: #### U RCX #### [facility] [address] [address] [address] Marvin Reis UA RANDOM W/MICROSCOPICon BACTERIA TRACE Abnormal NONE SEEN [facility] Comment on above: Performed By: #### U AMIC #### [facility] [address] [address] [address] Marvin Reis Bilirubin Ql (U) Negative Normal NEGATIVE [facility] Comment on above: Performed By: #### U AMIC #### [facility] [address] [address] [address] Marvin Reis CAST NONE SEEN Normal NONE SEEN [facility] Comment on above: Performed By: #### U AMIC #### [facility] [address] [address] [address] Marvin Reis Clarity (U) CLEAR Normal CLEAR [facility] Comment on above: Performed By: #### U AMIC #### [facility] [address] [address] [address] Marvin Reis Color (U) LT. YELLOW Normal YELLOW [facility] Comment on above: Performed By: #### U AMIC #### [facility] [address] [address] [address] Marvin Reis Crystals LM Nom (Urine sed) NONE SEEN Normal NONE SEEN [facility] Comment on above: Performed By: #### U AMIC #### [facility] [address] [address] [address] Marvin Reis Epithelial cells LM Ql (Urine sed) FEW Abnormal NONE SEEN /RARE [facility] Comment on above: Performed By: #### U AMIC #### [facility] [address] [address] [address] Marvin Reis Glucose Ql (U) Negative Normal NEGATIVE [facility] Comment on above: Performed By: #### U AMIC #### [facility] [address] [address] [address] Marvin Reis Hemoglobin Ql (U) TRACE-INTACT Abnormal NEGATIVE [facility] Comment on above: Performed By: #### U AMIC #### [facility] [address] [address] [address] Marvin Reis Ketones Ql (U) Negative Normal NEGATIVE [facility] Comment on above: Performed By: #### U AMIC #### [facility] [address] [place] [address] Dr. Marvin Reis LEUKOCYTES SMALL Abnormal NEGATIVE [facility] Comment on above: Performed By: #### U AMIC #### [facility] [address] [place] [address] Dr. Marvin Reis MUCOUS NONE SEEN Normal NONE SEEN [facility] Comment on above: Performed By: #### U AMIC #### [facility] [address] [place] [address] Dr. Marvin Reis Nitrite Ql (U) Negative Normal NEGATIVE [facility] Comment on above: Performed By: #### U AMIC #### [facility] [address] [place] [address] Dr. Marvin Reis pH (U) 6.0 [pH] Normal 5-9 [facility] Comment on above: Performed By: #### U AMIC #### [facility] [address] [place] [address] Dr. Marvin Reis RBC 0-2 Normal 0-2 [facility] Comment on above: Performed By: #### U AMIC #### [facility] [address] [place] [address] Dr. Marvin Reis SPEC GRAVITY 1.010 Normal 1.005-<=1.025 [facility] Comment on above: Performed By: #### U AMIC #### [facility] [address] [place] [address] Dr. Marvin Reis UA PROTEIN Negative Normal NEGATIVE/ TRACE [facility] Comment on above: Performed By: #### U AMIC #### [facility] [address] [place] [address] Dr. Marvin Reis Urobilinogen Qn (U) 0.2 {Robbie'U}/dL Normal 0.2 - 1. 0 [facility] Comment on above: Performed By: #### U AMIC #### [facility] [address] [place] [address] Dr. Marvin Reis WBC 2-5 Abnormal NONE SEEN [facility] Comment on above: Performed By: #### U AMIC #### [facility] [address] [place] [address] Dr. Marvin Reis CULTURE URINEon 03-27-2022 CULTURE [...] hoxazole >=320 R F Normal [facility] Comment on above: Performed By: #### U RCX #### [facility] [address] [place] [address] Dr. Marvin Reis UA RANDOM W/MICROSCOPICon BACTERIA TRACE Abnormal NONE SEEN [facility] Comment on above: Performed By: #### U RCX #### [facility] [address] [place] [address] Dr. Marvin Reis Bilirubin Ql (U) Negative Normal NEGATIVE The [facility] Comment on above: Performed By: #### U RCX #### [facility] [address] [place] [address] Dr. Marvin Reis CAST NONE SEEN Normal NONE SEEN [facility] Comment on above: Performed By: #### U RCX #### [facility] [address] [place] [address] Dr. Marvin Reis Clarity (U) CLEAR Normal CLEAR [facility] Comment on above: Performed By: #### U RCX #### [facility] [address] [address] [address] Marvin Reis Color (U) LT. YELLOW Normal YELLOW [facility] Comment on above: Performed By: #### U RCX #### [facility] [address] [place] [address] Dr. Marvin Reis Crystals LM Nom (Urine sed) NONE SEEN Normal NONE SEEN [facility] Comment on above: Performed By: #### U RCX #### [facility] [address] [address] [address] Marvin Reis Epithelial cells LM Ql (Urine sed) FEW Abnormal NONE SEEN /RARE [facility] Comment on above: Performed By: #### U RCX #### [facility] [address] [place] [address] Dr. Marvin Reis Glucose Ql (U) Negative Normal NEGATIVE [facility] Comment on above: Performed By: #### U RCX #### [facility] [address] [place] [address] Dr. Marvin Reis Hemoglobin Ql (U) SMALL Abnormal NEGATIVE The [facility] Comment on above: Performed By: #### U RCX #### [facility] [address] [place] [address] Dr. Marvin Reis Ketones Ql (U) Negative Normal NEGATIVE [facility] Comment on above: Performed By: #### U RCX #### [facility] [address] [place] [address] Dr. Marvin Reis LEUKOCYTES MODERATE Abnormal NEGATIVE [facility] Comment on above: Performed By: #### U RCX #### [facility] [address] [place] [address] Dr. Marvin Reis MUCOUS NONE SEEN Normal NONE SEEN [facility] Comment on above: Performed By: #### U RCX #### [facility] [address] [place] [address] Dr. Marvin Reis Nitrite Ql (U) Negative Normal NEGATIVE [facility] Comment on above: Performed By: #### U RCX #### [facility] [address] [place] [address] Dr. Marvin Reis pH (U) 5.5 [pH] Normal 5-9 [facility] Comment on above: Performed By: #### U RCX #### [facility] [address] [place] [address] Dr. Marvin Reis RBC NONE SEEN Abnormal 0-2 [facility] Comment on above: Performed By: #### U RCX #### [facility] [address] [place] [address] Dr. Marvin Reis SPEC GRAVITY 1.015 Normal 1.005-<=1.025 [facility] Comment on above: Performed By: #### U RCX #### [facility] [address] [place] [address] Dr. Marvin Reis UA PROTEIN Negative Normal NEGATIVE/ TRACE [facility] Comment on above: Performed By: #### U RCX #### [facility] [address] [place] [address] Dr. Marvin Reis Urobilinogen Qn (U) 0.2 {Robbie'U}/dL Normal 0.2 - 1. 0 [facility] Comment on above: Performed By: #### U RCX #### [facility] [address] [place] [address] Dr. Marvin Reis WBC 20-50 Abnormal NONE SEEN [facility] Comment on above: Performed By: #### U RCX #### [facility] [address] [place] [address] Dr. Marvin Reis YEAST PRESENT Abnormal NONE SEEN [facility] Comment on above: Performed By: #### U RCX #### [facility] [address] [place] [address] Dr. Marvin Reis CULTURE URINEon 03-18-2022 CULTURE URINE Culture Observations : No growth Normal [facility] Comment on above: Performed By: #### U RCX #### [facility] [address] [place] [address] Dr. Marvin Reis UA RANDOM W/MICROSCOPICon BACTERIA NONE SEEN Normal NONE SEEN [facility] Comment on above: Performed By: #### U AMIC #### [facility] [address] [address] [address] Marvin Reis Bilirubin Ql (U) Negative Normal NEGATIVE [facility] Comment on above: Performed By: #### U AMIC #### [facility] [address] [address] [address] Marvin Reis CAST NONE SEEN Normal NONE SEEN [facility] Comment on above: Performed By: #### U AMIC #### [facility] [address] [place] [address] Dr. Marvin Reis Clarity (U) CLOUDY Abnormal CLEAR [facility] Comment on above: Performed By: #### U AMIC #### [facility] [address] [address] [address] Marvin Reis Color (U) LT. YELLOW Normal YELLOW [facility] Comment on above: Performed By: #### U AMIC #### [facility] [address] [place] [address] Dr. Marvin Reis Crystals LM Nom (Urine sed) NONE SEEN Normal NONE SEEN [facility] Comment on above: Performed By: #### U AMIC #### [facility] [address] [place] [address] Dr. Marvin Reis Epithelial cells LM Ql (Urine sed) RARE Normal NONE SEEN /RARE [facility] Comment on above: Performed By: #### U AMIC #### [facility] [address] [place] [address] Dr. Marvin Reis Glucose Ql (U) Negative Normal NEGATIVE [facility] Comment on above: Performed By: #### U AMIC #### [facility] [address] [place] [address] Dr. Marvin Reis Hemoglobin Ql (U) TRACE-INTACT Abnormal NEGATIVE [facility] Comment on above: Performed By: #### U AMIC #### [facility] [address] [place] [address] Dr. Marvin Reis Ketones Ql (U) Negative Normal NEGATIVE [facility] Comment on above: Performed By: #### U AMIC #### [facility] [address] [place] [address] Dr. Marvin Reis LEUKOCYTES MODERATE Abnormal NEGATIVE [facility] Comment on above: Performed By: #### U AMIC #### [facility] [address] [address] [address] Marvin Reis MUCOUS NONE SEEN Normal NONE SEEN [facility] Comment on above: Performed By: #### U AMIC #### [facility] [address] [address] [address] Marvin Reis Nitrite Ql (U) Negative Normal NEGATIVE [facility] Comment on above: Performed By: #### U AMIC #### [facility] [address] [address] [address] Marvin Reis pH (U) 6.0 [pH] Normal 5-9 [facility] Comment on above: Performed By: #### U AMIC #### [facility] [address] [place] [address] Dr. Marvin Reis RBC NONE SEEN Abnormal 0-2 [facility] Comment on above: Performed By: #### U AMIC #### [facility] [address] [place] [address] Dr. Marvin Reis SPEC GRAVITY 1.015 Normal 1.005-<=1.025 [facility] Comment on above: Performed By: #### U AMIC #### [facility] [address] [address] [address] Marvin Reis UA PROTEIN Negative Normal NEGATIVE/ TRACE [facility] Comment on above: Performed By: #### U AMIC #### [facility] [address] [address] [address] Marvin Reis Urobilinogen Qn (U) 0.2 {Robbie'U}/dL Normal 0.2 - 1. 0 [facility] Comment on above: Performed By: #### U AMIC #### [facility] [address] [place] [address] Dr. Marvin Reis WBC 10-20 Abnormal NONE SEEN [facility] Comment on above: Performed By: #### U AMIC #### [facility] [address] [place] [address] Dr. Marvin Reis Coding Summary.on 06-21-2020 Coding Summary. CODING DATE: 06/21/2020 FINAL [facility] STATUS: PAYOR: Worker's Compensation [...] Hopper CphT Date Saved: 06/21/2020 12:01 pm [facility] PT - Assessmentson 0 PT - Assessments [id number]# 1.00CD:127 [facility] PT - Orderson 06-20-2020 PT - Orders [id number]# 1.00CD:127 [facility] PT - Workers Compon 06-20-20 20 PT - Workers Comp [id number]# 1.00CD:127 [facility] Encounters Encounter Date Encounter Type Care Provider Facility Start: 03-10-2023 End: 03-11-2023 [facility] Start: 03-03-2023 End: 03-03-[address] LAWANDA [...] Facility:[facility] Payers Date Payer Category Payer Medicare [id number] 1961 Unknown [id number] 1960 Unknown [id number] 2.16.84 0.1.774804.3.579.2.593 1960 Unknown [id number] 2.16.84 0.1.672098.3.579.2.593 1960 Unknown [id number] 2.16.84 0.1.636036.3.579.2.593 1960 Unknown [id number] 2.16.84 0.1.390371.3.579.2.593 1958 Unknown [id number] 2.16.84 0.1.234255.3.579.2.593 1960 Unknown [id number] 2.16.84 0.1.751336.3.579.2.593 1958 Unknown [id number] 2.16.84 0.1.883718.3.579.2.593 1958 Unknown [id number] 2.16.84 0.1.048454.3.579.2.593 1958 Unknown [id number] 2.16.84 0.1.129087.3.579.2.593 1958 Unknown [id number] 2.16.84 0.1.721568.3.579.2.593 1958 Unknown [id number] 2.16.84 0.1.665515.3.579.2.593 1958 Unknown [id number] 2.16.84 0.1.423424.3.579.2.593 1958 Unknown [id number] 2.16.84 0.1.318939.3.579.2.593 1958 Unknown [id number] 2.16.84 0.1.808028.3.579.2.593 1958 Unknown [id number] 2.16.84 0.1.336716.3.579.2.593 1958 Unknown [id number] 2.16.84 0.1.956635.3.579.2.593 1958 Unknown [id number] 2.16.84 0.1.632584.3.579.2.593 1958 Unknown [id number] 2.16.84 0.1.782638.3.579.2.593 1958 Unknown [id number] 2.16.84 0.1.867289.3.579.2.593 Summary Purpose Family History No Family History [...] CREATED AUTHOR AUTHOR'S ORGANIZ ATION 03/06/2023 [facility] DATE CREATED AUTHOR AUTHOR'S ORGANIZ ATION 03/11/2023 [facility] DATE CREATED AUTHOR AUTHOR'S ORGANIZ ATION 06/07/2023 [facility] FOR RECORDS PERTAINING TO PATIENTS WHO [...] BE BASED ON THE PRIMARY CLINICAL RECORDS. [employer] [facility]. provides no warranty or guarantee of the accuracy or completeness of information in this document.
--- NOTE | 2024-08-18 17:03 | ECG_ITS ---
The [facility] Test Date: 2024-08-18 Pat Name: JESSICA PIZARRO Department: Room: - Gender: Male Cut Order Hand: : 1960 Requested By: LAWANDA GROVE Order Number: [id number] Reading MD: LAWANDA GROVE Measurements Intervals [place] Rate: 82 P: 51 TN: 148 QRS: 81 QRSD: 84 T: 70 QT: 390 QTc: 429 Interpretive Statements 1100 Sinus rhythm 2420 RSR (QR) in lead V1/V2, consistent with right ventricular conduction delay 9130 borderline ECG No previous ECG available for comparison Electronically Signed On 08-19-2024 5:12:21 EDT by LAWANDA GROVE
--- NOTE | 2024-08-18 17:03 | XR_ITS ---
The [address] [address] Patient Name: JESSICA PIZARRO MRN: [id number] date: 1960 Sex: M Assigned Patient Location: ER Current Patient Location: ED.MAIN Accession/Order Number: [id number] Exam Date: 08/18/2024 18:40 Report Date: 08/18/2024 19:50 At the request of: GRETCHEN LÓPEZ Procedure: XR chest 1V CXR HISTORY: Shortness of breath. COMPARISON: None. TECHNIQUE: 1 view of the chest submitted for review. FINDINGS: Evaluation of the apices is limited due to patient's chin positioning. Lines and tubes: None Lungs are hyperaerated. No acute infiltrate. No effusion. The cardiac silhouette measures within normal. Pulmonary vascularity is unremarkable. Osseous structures are normal for age. XR/XR chest 1V IMPRESSION: No plain film evidence for acute cardiopulmonary disease. Electronically authenticated by: TEDDY SHARMA Date: 08/18/2024 19:50
--- NOTE | 2024-08-18 17:04 | CT_ITS ---
The [address] [address] Patient Name: JESSICA PIZARRO MRN: [id number] date: 1960 Sex: M Assigned Patient Location: ER Current Patient Location: ER Accession/Order Number: [id number] Exam Date: 08/18/2024 18:40 Report Date: 08/18/2024 19:13 At the request of: GRETCHEN LÓPEZ Procedure: CT head/brain wo con EXAM: CT head/brain wo con HISTORY: Confusion COMPARISON: None. TECHNIQUE: Axial CT scans through the head were obtained without IV contrast administration. Dose reduction techniques were achieved by using: automated exposure control and/or adjustment of mA and /or kV according to patient size and/or use of iterative reconstruction technique. FINDINGS: There is no evidence of acute intracranial hemorrhage or abnormal extra-axial fluid collection. No mass effect or midline shift is seen. There is no evidence of large acute territorial infarction. There is no hydrocephalus. There is age appropriate mild cerebral atrophy. To the limit of CT, the posterior fossa appears unremarkable. There are minimal atherosclerotic calcifications of cavernous and supraclinoid segments of bilateral internal carotid arteries. No definite acute fracture is identified. Soft tissues are unremarkable. The visualized orbits show no abnormality. The visualized paranasal sinuses show no air-fluid level. Mastoid air cells are clear. CT/CT head/brain wo con IMPRESSION: No CT evidence of acute intracranial abnormality. If there is sufficient clinical concern for acute ischemia, consider MRI for further evaluation. Mild senescent changes, as described Electronically authenticated by: ABBI PFEIFFER Date: 08/18/2024 19:13
--- NOTE | 2024-08-18 17:08 | ED.GENADUL1 ---
Documented by User: BRIAN Vidal 08/18/24 19:31 HPI HPI - General Adult General Chief complaint: Weakness Stated complaint: Dr Mckeon sent patient over Time Seen by Provider: 08/18/24 16:42 Source: patient Mode of arrival: walk-in Limitations: physical limitation History of Present Illness HPI narrative: Patient is a 63-year-old male with a history of quadriplegia brought to the emergency department for increasing weakness and confusion. His is at bedside and is an excellent historian, she states the patient has had a longstanding history of urinary tract infections and has been treated with oral antibiotics in the past. He was found to have antibiotic resistant bacteria in his urine specimen and has been receiving IV antibiotics in the infusion center every other day. He received an infusion yesterday and is due to have 1 tomorrow. states starting yesterday and worsening today, the patient has been more confused and not himself. She states that he did not know how to use his wheelchair and he is typically proficient in using the wheelchair for mobility. He denies chest pain, states he has not had any fevers or upper respiratory symptoms. No vomiting or diarrhea. She is concerned that he is dehydrated as they do straight caths for urine and he has had decreased urine output. He was noted to have outpatient labs 3 days ago showing worsening renal function and critical BUN. Related Data Home Medications ?Medication ?Instructions ?Recorded ?Confirmed celecoxib 100 mg capsule 100 mg PO Q24H 08/18/24 08/18/24 fentanyl 100 mcg/hr transdermal 1 patch transdermal Q72H 08/18/24 08/18/24 patch fentanyl 50 mcg/hr transdermal 1 patch transdermal Q72H 08/18/24 08/18/24 patch gabapentin 300 mg capsule 300 mg PO .qhs 08/18/24 08/18/24 pregabalin 100 mg capsule 100 mg PO QAM 08/18/24 08/18/24 tizanidine 2 mg capsule (Zanaflex) 3 mg PO .qhs 08/18/24 08/18/24 tolterodine 1 mg tablet 2 mg PO Q12H 08/18/24 08/18/24 Allergies Allergy/AdvReac Type Severity Reaction Status Date / Time cilastatin (From Primaxin) Allergy Unknown Unknown Verified 08/09/24 11:07 ciprofloxacin (From Cipro) Allergy Unknown Unknown Verified 08/09/24 11:07 imipenem (From Primaxin) Allergy Unknown Unknown Verified 08/09/24 11:07 Iodinated Contrast Media Allergy Unknown Unknown Verified 08/09/24 11:07 Opioid HPI Opioid Management Most Recent Opioid Data: Last Pain Scale 10 08/18/24 17:07 08/18/24 Last Pain Assessment 08/19/24 04:00 Last ED Pain Assessment 08/18/24 17:07 Last ORT Total Score 1 08/18/24 22:48 08/18/24 Last ORT Risk Category Low Risk 08/18/24 22:48 08/18/24 Review of Systems ROS Constitutional Denies: fever or chills Ears, nose, mouth, and throat Denies: throat pain Cardiovascular Denies: chest pain Respiratory Denies: shortness of breath or cough Gastrointestinal Denies: abdominal pain, nausea or vomiting Genitourinary Reports: decreased urine ouput Musculoskeletal Denies: back pain or neck pain Integumentary/Breast Denies: rash Neurological Denies: numbness in extremities or weakness in extremities Hematologic/Lymphatic Denies: easy bruising or easy bleeding PFSH PFSH Social History Little interest or pleasure in doing things: not at all Feeling down, depressed, or hopeless: not at all Exam Narrative Exam Narrative: Gen.: Awake, alert, in no distress; quadriplegic in a wheelchair Head: Normocephalic, atraumatic ENT: Moist mucous membranes Respiratory: No respiratory distress, lungs clear bilaterally Cardio: Regular rate and rhythm Gastrointestinal: Abdomen is soft, nondistended and nontender to palpation Extremities: Limited mobility of the upper extremities, no mobility of the lower extremities, contractures noted to the fingers Psych: Normal mood and affect Neuro: No focal neuro deficit Skin: Warm, dry, intact Constitutional Vital Signs, click to edit/add: Last Vital Signs Temp 95.5 F L 08/19/24 04:00 Pulse 89 08/19/24 04:00 Resp 18 08/19/24 04:00 BP 111/57 08/19/24 04:00 Pulse Ox 97 08/19/24 04:00 O2 Del Method Room Air 08/19/24 02:00 Course Vital Signs Vital signs: Vital Signs Temperature 97.9 F 08/18/24 17:03 Pulse Rate 79 08/18/24 17:03 Respiratory Rate 18 08/18/24 17:03 Blood Pressure 81/39 L 08/18/24 17:03 Pulse Oximetry 98 08/18/24 17:03 Oxygen Delivery Method Room Air 08/18/24 17:03 Temperature 95.5 F L 08/19/24 04:00 Pulse Rate 89 08/19/24 04:00 Respiratory Rate 18 08/19/24 04:00 Blood Pressure 111/57 08/19/24 04:00 Pulse Oximetry 97 08/19/24 04:00 Oxygen Delivery Method Room Air 08/19/24 02:00 Medical Decision Making MDM Narrative Medical decision making narrative: Patient hypotensive at initial interview, IV fluids were started with septic workup including blood cultures. Patient with a normal white blood cell count, however he was found to have a hemoglobin of 6.2. Blood consent was obtained from the patient's , she states the patient has required a transfusion in the past, he was noted to have anemia previously although that they do not know why. CT of the brain was read by the radiologist, negative for acute process. Chest x-ray is unremarkable. Blood pressure improved with IV fluids, blood was ordered for the patient, however he was found to have an antibody and the blood will need to be sent to the [facility] and matched at [facility]. There will be a delay in transfusing the patient. He is hemodynamically stable at this time. Patient admitted for acute renal failure, anemia, weakness and confusion. Patient was seen by Dr. Mckeon in the emergency department prior to admission in the course of his workup. SHARED APC VISIT, PHYSICIAN ATTESTATION: [id number] I performed a substantive part of the MDM during the patient?s E/M visit. I personally evaluated and examined the patient. I personally made or approved the documented management plan and acknowledge its risk of complications. Medical Records Medical records reviewed: Yes I reviewed the patient's medical records Lab Data Lab results reviewed: Yes I reviewed the patient's lab results Labs: Lab Results 08/18/24 08/18/24 08/18/24 Range/Units 17:17 18:00 18:40 WBC 7.6 (4.0-11.0) 10^3/uL RBC 2.34 L (4.70-6.10) 10^6/uL Hgb 6.2 L* (14.0-18.0) g/dL Hct 22.0 L* (42.0-54.0) % MCV 94.0 (80.0-94.0) fL MCH 26.5 (25.9-34.0) pg MCHC 28.2 L (29.9-35.2) g/dL RDW 17.6 H (11.0-15.0) % Plt Count 90 L (150-450) 10^3/uL MPV 10.5 (9.5-13.5) fL Seg Neuts % (Manual) 90.0 H (43.0-75.0) Lymphocytes % (Manual) 7.0 L (20.5-60.0) % Monocytes % (Manual) 2.0 (1.7-12.0) % Eosinophils % (Manual) 1.0 (0.9-7.0) % Basophils % (Manual) 0.0 L (0.2-2.0) % Neutrophils # (Manual) 6.84 H (1.4-6.5) 10^3/uL Lymphocytes # (Manual) 0.53 L (1.20-3.80) 10^3/uL Monocytes # (Manual) 0.15 L (0.30-0.80) 10^3/uL Eosinophils # (Manual) 0.07 (0.00-0.70) 10^3/uL Basophils # (Manual) 0.00 (0.00-0.10) 10^3/uL Hypochromasia 1+ Poikilocytosis 1+ Ovalocytes 1+ Shivam Cells 1+ PT 12.6 H (9.0-11.6) sec INR 1.21 VBG pH 7.180 L (7.330-7.430) VBG pCO2 27.9 L (40.0-52.0) mmHg Sodium 140 (136-145) mmol/L Potassium 5.0 (3.5-5.1) mmol/L Chloride 113 H (98-107) mmol/L Carbon Dioxide 12.0 L (21.0-32.0) mmol/L Anion Gap 20.0 BUN 91.0 H* (7.0-18.0) mg/dL Creatinine 4.82 H (0.70-1.30) mg/dL Est GFR ( Amer) 15 L (>=60 mL/min/1.73m^2) Est GFR (Non-Af Amer) 12 L (>=60 mL/min/1.73m^2) BUN/Creatinine Ratio 18.9 Glucose 107 H (74-106) mg/dL Lactate 1.7 (0.4-2.0) mmol/L Calcium 8.4 L (8.5-10.1) mg/dL Phosphorus (2.6-4.7) mg/dL Magnesium (1.8-2.4) mg/dL Total Bilirubin 0.2 (0.2-1.0) mg/dL AST 11 L (15-37) U/L ALT <6 L (16-63) U/L Alkaline Phosphatase 81 (46-116) U/L Troponin I High Sens 6.6 (4.0-76.1) pg/mL NT-Pro-B Natriuret Pep 1909.0 H* (<=900.0) pg/mL Total Protein 5.9 L (6.4-8.2) g/dL Albumin 1.8 L (3.4-5.0) g/dL Globulin 4.1 g/dL Albumin/Globulin Ratio 0.4 TSH (0.358-3.740) uIU/mL Urine Color Lt. yellow (YELLOW) Urine Clarity Clear (CLEAR) Urine pH 6.0 (5.0-9.0) Ur Specific [place] 1.020 (1.005-1.025) Urine Protein >=300 A (NEG/TRACE) mg/dL Urine Glucose (UA) Negative (NEGATIVE) mg/dL Urine Ketones Negative (NEGATIVE) mg/dL Urine Occult Blood Moderate A (NEGATIVE) Urine Nitrite Negative (NEGATIVE) Urine Bilirubin Negative (NEGATIVE) Urine Urobilinogen 0.2 (0.2-1.0) EU/dL Ur Leukocyte Esterase Large A (NEGATIVE) Urine RBC 5-10 A (0-2) #/HPF Urine WBC >100 A (NONE SEEN) #/HPF Ur Squamous Epith Cells None seen (NONE/RARE) #/LPF Urine Crystals None seen (None Seen) #/HPF Urine Bacteria Moderate A (NONE SEEN) #/HPF Urine Casts None seen (NONE SEEN) #/LPF Urine Mucus None seen (NONE SEEN) Ur Culture Indicated? Yes Blood Type O Positive Antibody Screen Positive Crossmatch See Detail 08/18/24 Range/Units 22:00 WBC (4.0-11.0) 10^3/uL RBC (4.70-6.10) 10^6/uL Hgb (14.0-18.0) g/dL Hct (42.0-54.0) % MCV (80.0-94.0) fL MCH (25.9-34.0) pg MCHC (29.9-35.2) g/dL RDW (11.0-15.0) % Plt Count (150-450) 10^3/uL MPV (9.5-13.5) fL Seg Neuts % (Manual) (43.0-75.0) Lymphocytes % (Manual) (20.5-60.0) % Monocytes % (Manual) (1.7-12.0) % Eosinophils % (Manual) (0.9-7.0) % Basophils % (Manual) (0.2-2.0) % Neutrophils # (Manual) (1.4-6.5) 10^3/uL Lymphocytes # (Manual) (1.20-3.80) 10^3/uL Monocytes # (Manual) (0.30-0.80) 10^3/uL Eosinophils # (Manual) (0.00-0.70) 10^3/uL Basophils # (Manual) (0.00-0.10) 10^3/uL Hypochromasia Poikilocytosis Ovalocytes [place] Cells PT (9.0-11.6) sec INR VBG pH 7.122 L (7.330-7.430) VBG pCO2 34.5 L (40.0-52.0) mmHg Sodium (136-145) mmol/L Potassium (3.5-5.1) mmol/L Chloride (98-107) mmol/L Carbon Dioxide (21.0-32.0) mmol/L Anion Gap BUN (7.0-18.0) mg/dL Creatinine (0.70-1.30) mg/dL Est GFR ( Amer) (>=60 mL/min/1.73m^2) Est GFR (Non-Af Amer) (>=60 mL/min/1.73m^2) BUN/Creatinine Ratio Glucose (74-106) mg/dL Lactate 0.7 (0.4-2.0) mmol/L Calcium (8.5-10.1) mg/dL Phosphorus 8.4 H* (2.6-4.7) mg/dL Magnesium 2.0 (1.8-2.4) mg/dL Total Bilirubin (0.2-1.0) mg/dL AST (15-37) U/L ALT (16-63) U/L Alkaline Phosphatase (46-116) U/L Troponin I High Sens 11.0 (4.0-76.1) pg/mL NT-Pro-B Natriuret Pep (<=900.0) pg/mL Total Protein (6.4-8.2) g/dL Albumin (3.4-5.0) g/dL Globulin g/dL Albumin/Globulin Ratio TSH 2.756 (0.358-3.740) uIU/mL Urine Color (YELLOW) Urine Clarity (CLEAR) Urine pH (5.0-9.0) Ur Specific [place] (1.005-1.025) Urine Protein (NEG/TRACE) mg/dL Urine Glucose (UA) (NEGATIVE) mg/dL Urine Ketones (NEGATIVE) mg/dL Urine Occult Blood (NEGATIVE) Urine Nitrite (NEGATIVE) Urine Bilirubin (NEGATIVE) Urine Urobilinogen (0.2-1.0) EU/dL Ur Leukocyte Esterase (NEGATIVE) Urine RBC (0-2) #/HPF Urine WBC (NONE SEEN) #/HPF Ur Squamous Epith Cells (NONE/RARE) #/LPF Urine Crystals (None Seen) #/HPF Urine Bacteria (NONE SEEN) #/HPF Urine Casts (NONE SEEN) #/LPF Urine Mucus (NONE SEEN) Ur Culture Indicated? Blood Type Antibody Screen Crossmatch Imaging Data CT scan - head: Attestation: I have reviewed the pertinent imaging results. Radiologist's impression: ITS Impressions Chest X-Ray 08/18/24 17:03 IMPRESSION: No plain film evidence for acute cardiopulmonary disease. Electronically authenticated by: TEDDY SHARMA Date: 08/18/2024 19:[address] 08/18/24 17:04 IMPRESSION: No CT evidence of acute intracranial abnormality. If there is sufficient clinical concern for acute ischemia, consider MRI for further evaluation. Mild senescent changes, as described Electronically authenticated by: ABBI PFEIFFER Date: 08/18/2024 19:13 ECG Data Attestation: I personally reviewed and interpreted this ECG as follows: (Normal sinus rhythm at a rate of 82, no acute ST elevation or ectopy. EKG reviewed by attending physician) Discharge Plan Discharge Chief Complaint: Weakness Clinical Impression: Anemia requiring transfusions, Dehydration, Acute renal failure, Weakness Patient Disposition: Admitted As Inpatient Time of Disposition Decision: 19:26 Condition: Fair Discharge Date/Time: 08/18/24 22:07 Documented by User: Dawson Thurman MD 08/19/24 06:55 HPI HPI - General Adult General Chief complaint: Weakness Stated complaint: Dr Mckeon sent patient over Time Seen by Provider: 08/18/24 16:42 Related Data Home Medications ?Medication ?Instructions ?Recorded ?Confirmed celecoxib 100 mg capsule 100 mg PO Q24H 08/18/24 08/18/24 fentanyl 100 mcg/hr transdermal 1 patch transdermal Q72H 08/18/24 08/18/24 patch fentanyl 50 mcg/hr transdermal 1 patch transdermal Q72H 08/18/24 08/18/24 patch gabapentin 300 mg capsule 300 mg PO .qhs 08/18/24 08/18/24 pregabalin 100 mg capsule 100 mg PO QAM 08/18/24 08/18/24 tizanidine 2 mg capsule (Zanaflex) 3 mg PO .qhs 08/18/24 08/18/24 tolterodine 1 mg tablet 2 mg PO Q12H 08/18/24 08/18/24 Allergies Allergy/AdvReac Type Severity Reaction Status Date / Time cilastatin (From Primaxin) Allergy Unknown Unknown Verified 08/09/24 11:07 ciprofloxacin (From Cipro) Allergy Unknown Unknown Verified 08/09/24 11:07 imipenem (From Primaxin) Allergy Unknown Unknown Verified 08/09/24 11:07 Iodinated Contrast Media Allergy Unknown Unknown Verified 08/09/24 11:07 Opioid HPI Opioid Management Most Recent Opioid Data: Last Pain Scale 10 08/18/24 17:07 08/18/24 Last Pain Assessment 08/19/24 04:00 Last ED Pain Assessment 08/18/24 17:07 Last ORT Total Score 1 08/18/24 22:48 08/18/24 Last ORT Risk Category Low Risk 08/18/24 22:48 08/18/24 PFSH PFSH Social History Little interest or pleasure in doing things: not at all Feeling down, depressed, or hopeless: not at all Exam Constitutional Vital Signs, click to edit/add: Last Vital Signs Temp 95.5 F L 08/19/24 04:00 Pulse 89 08/19/24 04:00 Resp 18 08/19/24 04:00 BP 111/57 08/19/24 04:00 Pulse Ox 97 08/19/24 04:00 O2 Del Method Room Air 08/19/24 02:00 Course Vital Signs Vital signs: Vital Signs Temperature 97.9 F 08/18/24 17:03 Pulse Rate 79 08/18/24 17:03 Respiratory Rate 18 08/18/24 17:03 Blood Pressure 81/39 L 08/18/24 17:03 Pulse Oximetry 98 08/18/24 17:03 Oxygen Delivery Method Room Air 08/18/24 17:03 Temperature 95.5 F L 08/19/24 04:00 Pulse Rate 89 08/19/24 04:00 Respiratory Rate 18 08/19/24 04:00 Blood Pressure 111/57 08/19/24 04:00 Pulse Oximetry 97 08/19/24 04:00 Oxygen Delivery Method Room Air 08/19/24 02:00 Medical Decision Making Lab Data Labs: Lab Results 08/18/24 08/18/24 08/18/24 Range/Units 17:17 18:00 18:40 WBC 7.6 (4.0-11.0) 10^3/uL RBC 2.34 L (4.70-6.10) 10^6/uL Hgb 6.2 L* (14.0-18.0) g/dL Hct 22.0 L* (42.0-54.0) % MCV 94.0 (80.0-94.0) fL MCH 26.5 (25.9-34.0) pg MCHC 28.2 L (29.9-35.2) g/dL RDW 17.6 H (11.0-15.0) % Plt Count 90 L (150-450) 10^3/uL MPV 10.5 (9.5-13.5) fL Seg Neuts % (Manual) 90.0 H (43.0-75.0) Lymphocytes % (Manual) 7.0 L (20.5-60.0) % Monocytes % (Manual) 2.0 (1.7-12.0) % Eosinophils % (Manual) 1.0 (0.9-7.0) % Basophils % (Manual) 0.0 L (0.2-2.0) % Neutrophils # (Manual) 6.84 H (1.4-6.5) 10^3/uL Lymphocytes # (Manual) 0.53 L (1.20-3.80) 10^3/uL Monocytes # (Manual) 0.15 L (0.30-0.80) 10^3/uL Eosinophils # (Manual) 0.07 (0.00-0.70) 10^3/uL Basophils # (Manual) 0.00 (0.00-0.10) 10^3/uL Hypochromasia 1+ Poikilocytosis 1+ Ovalocytes 1+ Shivam Cells 1+ PT 12.6 H (9.0-11.6) sec INR 1.21 VBG pH 7.180 L (7.330-7.430) VBG pCO2 27.9 L (40.0-52.0) mmHg Sodium 140 (136-145) mmol/L Potassium 5.0 (3.5-5.1) mmol/L Chloride 113 H (98-107) mmol/L Carbon Dioxide 12.0 L (21.0-32.0) mmol/L Anion Gap 20.0 BUN 91.0 H* (7.0-18.0) mg/dL Creatinine 4.82 H (0.70-1.30) mg/dL Est GFR ( Amer) 15 L (>=60 mL/min/1.73m^2) Est GFR (Non-Af Amer) 12 L (>=60 mL/min/1.73m^2) BUN/Creatinine Ratio 18.9 Glucose 107 H (74-106) mg/dL Lactate 1.7 (0.4-2.0) mmol/L Calcium 8.4 L (8.5-10.1) mg/dL Phosphorus (2.6-4.7) mg/dL Magnesium (1.8-2.4) mg/dL Total Bilirubin 0.2 (0.2-1.0) mg/dL AST 11 L (15-37) U/L ALT <6 L (16-63) U/L Alkaline Phosphatase 81 (46-116) U/L Troponin I High Sens 6.6 (4.0-76.1) pg/mL NT-Pro-B Natriuret Pep 1909.0 H* (<=900.0) pg/mL Total Protein 5.9 L (6.4-8.2) g/dL Albumin 1.8 L (3.4-5.0) g/dL Globulin 4.1 g/dL Albumin/Globulin Ratio 0.4 TSH (0.358-3.740) uIU/mL Urine Color Lt. yellow (YELLOW) Urine Clarity Clear (CLEAR) Urine pH 6.0 (5.0-9.0) Ur Specific [place] 1.020 (1.005-1.025) Urine Protein >=300 A (NEG/TRACE) mg/dL Urine Glucose (UA) Negative (NEGATIVE) mg/dL Urine Ketones Negative (NEGATIVE) mg/dL Urine Occult Blood Moderate A (NEGATIVE) Urine Nitrite Negative (NEGATIVE) Urine Bilirubin Negative (NEGATIVE) Urine Urobilinogen 0.2 (0.2-1.0) EU/dL Ur Leukocyte Esterase Large A (NEGATIVE) Urine RBC 5-10 A (0-2) #/HPF Urine WBC >100 A (NONE SEEN) #/HPF Ur Squamous Epith Cells None seen (NONE/RARE) #/LPF Urine Crystals None seen (None Seen) #/HPF Urine Bacteria Moderate A (NONE SEEN) #/HPF Urine Casts None seen (NONE SEEN) #/LPF Urine Mucus None seen (NONE SEEN) Ur Culture Indicated? Yes Blood Type O Positive Antibody Screen Positive Crossmatch See Detail 08/18/24 Range/Units 22:00 WBC (4.0-11.0) 10^3/uL RBC (4.70-6.10) 10^6/uL Hgb (14.0-18.0) g/dL Hct (42.0-54.0) % MCV (80.0-94.0) fL MCH (25.9-34.0) pg MCHC (29.9-35.2) g/dL RDW (11.0-15.0) % Plt Count (150-450) 10^3/uL MPV (9.5-13.5) fL Seg Neuts % (Manual) (43.0-75.0) Lymphocytes % (Manual) (20.5-60.0) % Monocytes % (Manual) (1.7-12.0) % Eosinophils % (Manual) (0.9-7.0) % Basophils % (Manual) (0.2-2.0) % Neutrophils # (Manual) (1.4-6.5) 10^3/uL Lymphocytes # (Manual) (1.20-3.80) 10^3/uL Monocytes # (Manual) (0.30-0.80) 10^3/uL Eosinophils # (Manual) (0.00-0.70) 10^3/uL Basophils # (Manual) (0.00-0.10) 10^3/uL Hypochromasia Poikilocytosis Ovalocytes Shivam Cells PT (9.0-11.6) sec INR VBG pH 7.122 L (7.330-7.430) VBG pCO2 34.5 L (40.0-52.0) mmHg Sodium (136-145) mmol/L Potassium (3.5-5.1) mmol/L Chloride (98-107) mmol/L Carbon Dioxide (21.0-32.0) mmol/L Anion Gap BUN (7.0-18.0) mg/dL Creatinine (0.70-1.30) mg/dL Est GFR ( Amer) (>=60 mL/min/1.73m^2) Est GFR (Non-Af Amer) (>=60 mL/min/1.73m^2) BUN/Creatinine Ratio Glucose (74-106) mg/dL Lactate 0.7 (0.4-2.0) mmol/L Calcium (8.5-10.1) mg/dL Phosphorus 8.4 H* (2.6-4.7) mg/dL Magnesium 2.0 (1.8-2.4) mg/dL Total Bilirubin (0.2-1.0) mg/dL AST (15-37) U/L ALT (16-63) U/L Alkaline Phosphatase (46-116) U/L Troponin I High Sens 11.0 (4.0-76.1) pg/mL NT-Pro-B Natriuret Pep (<=900.0) pg/mL Total Protein (6.4-8.2) g/dL Albumin (3.4-5.0) g/dL Globulin g/dL Albumin/Globulin Ratio TSH 2.756 (0.358-3.740) uIU/mL Urine Color (YELLOW) Urine Clarity (CLEAR) Urine pH (5.0-9.0) Ur Specific [place] (1.005-1.025) Urine Protein (NEG/TRACE) mg/dL Urine Glucose (UA) (NEGATIVE) mg/dL Urine Ketones (NEGATIVE) mg/dL Urine Occult Blood (NEGATIVE) Urine Nitrite (NEGATIVE) Urine Bilirubin (NEGATIVE) Urine Urobilinogen (0.2-1.0) EU/dL Ur Leukocyte Esterase (NEGATIVE) Urine RBC (0-2) #/HPF Urine WBC (NONE SEEN) #/HPF Ur Squamous Epith Cells (NONE/RARE) #/LPF Urine Crystals (None Seen) #/HPF Urine Bacteria (NONE SEEN) #/HPF Urine Casts (NONE SEEN) #/LPF Urine Mucus (NONE SEEN) Ur Culture Indicated? Blood Type Antibody Screen Crossmatch Imaging Data CT scan - head: Radiologist's impression: ITS Impressions Chest X-Ray 08/18/24 17:03 IMPRESSION: No plain film evidence for acute cardiopulmonary disease. Electronically authenticated by: TEDDY SHARMA Date: 08/18/2024 19:[address] 08/18/24 17:04 IMPRESSION: No CT evidence of acute intracranial abnormality. If there is sufficient clinical concern for acute ischemia, consider MRI for further evaluation. Mild senescent changes, as described Electronically authenticated by: ABBI PFEIFFER Date: 08/18/2024 19:13 Discharge Plan Discharge Chief Complaint: Weakness Clinical Impression: Anemia requiring transfusions, Dehydration, Acute renal failure, Weakness Patient Disposition: Admitted As Inpatient Time of Disposition Decision: 19:26 Condition: Fair Discharge Date/Time: 08/18/24 22:07 Procedures ED Procedure Instructions Procedures Procedures: call from Dr Mckeon who would like central line placed in the patient sterile conditions applied to right groin. triple lumen central line placed using the Seldinger technique. Successful on the first attempt. Patient tolerated the procedure well
[2024-08-18] MEDS: 0.9 % SODIUM CHLORIDE 1,000 ML 999 ML IV (17:28)
[2024-08-18 17:37] LABS: PCO2 VBG 27.9 mmHg (40.0-52.0)
[2024-08-18 17:40] LABS: Mean Corpuscular HGB Conc 28.2 g/dL (29.9-35.2); Mean Corpuscular Hemoglobin 26.5 pg (25.9-34.0); Mean Platelet Volume 10.5 fL (9.5-13.5); Platelet Count 90 10^3/uL (150-450); Red Blood Count 2.34 10^6/uL (4.70-6.10); Red Cell Distribution Width 17.6 % (11.0-15.0); White Blood Count 7.6 10^3/uL (4.0-11.0)
[2024-08-18 17:48] LABS: Hemoglobin 6.2 g/dL (14.0-18.0)
[2024-08-18 17:51] LABS: INR 1.21; Prothrombin Time 12.6 sec (9.0-11.6)
[2024-08-18 17:54] LABS: Lactate/Lactic Acid 1.7 mmol/L (0.4-2.0)
[2024-08-18 18:00] LABS: Alanine Aminotransferase <6 U/L (16-63); Albumin Globulin Ratio 0.4; Albumin Level 1.8 g/dL (3.4-5.0); Alkaline Phosphatase 81 U/L (46-116); Aspartate Amino Transferase 11 U/L (15-37); BUN Creatinine Ratio 18.9; Bilirubin Total 0.2 mg/dL (0.2-1.0); Calcium 8.4 mg/dL (8.5-10.1); Chloride 113 mmol/L (98-107); Estimated GFR (African America 15 (>=60 mL/min/1.73m^2); Estimated GFR (Non-African Ame 12 (>=60 mL/min/1.73m^2); Globulin 4.1 g/dL; Glucose 107 mg/dL (74-106); Sodium 140 mmol/L (136-145); Total Protein 5.9 g/dL (6.4-8.2); Troponin I High Sensitivity 6.6 pg/mL (4.0-76.1)
[2024-08-18 18:07] LABS: Eosinophils Absolute Manual 0.07 10^3/uL (0.00-0.70); Hypochromasia 1+; Lymphocytes Absolute Manual 0.53 10^3/uL (1.20-3.80); Monocytes Absolute Manual 0.15 10^3/uL (0.30-0.80); Poikilocytosis 1+; Segmented Neut Absolute Manual 6.84 10^3/uL (1.4-6.5)
[2024-08-18 18:08] LABS: Burr Cells 1+; Ovalocytes 1+
--- NOTE | 2024-08-18 18:11 | P.HP_ITS ---
HPI H&P: HPI History of Present Illness Chief complaint: Dr Mckeon sent patient over Narrative: Pt well known to me after caring for him for over 20 years, is a quadraplegic - some function of arms - with recurrent UTI. Most recent was resistant to multiple oral antibiotics, requiring tobramycin. Over last several days patient with decreased PT intake, decrease output, today, was having issues with altered mental status, could not operate is wheelchair and normally has full control of that. We recommended referral to ER. In Er with significant anemia, acidosis consistent with sepsis - Pt to be admitted to the ICU When I saw the patient in the ER, he was in moderate distress due to pain which is usualy his sign of being quite ill. no resp complaint. no chest pain. Opioid HPI Opioid Management Most Recent Pain and Opioid Data: Last Pain Scale 10 08/18/24 17:07 08/18/24 Last ED Pain Assessment 08/18/24 17:07 Review of Systems ROS Status of ROS 10 or more systems reviewed and unremark able except as noted in history and below PFSH PFSH Social History Little interest or pleasure in doing things: not at all Feeling down, depressed, or hopeless: not at all Meds Home Medications and Allergies Home Medications ?Medication ?Instructions ?Recorded ?Confirmed ?Type celecoxib 100 mg capsule 100 mg PO Q24H 08/18/24 08/18/24 History fentanyl 100 mcg/hr transdermal 1 patch transdermal Q72H 08/18/24 08/18/24 History patch fentanyl 50 mcg/hr transdermal 1 patch transdermal Q72H 08/18/24 08/18/24 History patch gabapentin 300 mg capsule 300 mg PO .qhs 08/18/24 08/18/24 History pregabalin 100 mg capsule 100 mg PO QAM 08/18/24 08/18/24 History tizanidine 2 mg capsule (Zanaflex) 3 mg PO .qhs 08/18/24 08/18/24 History tolterodine 1 mg tablet 2 mg PO Q12H 08/18/24 08/18/24 History Allergies Allergy/AdvReac Type Severity Reaction Status Date / Time cilastatin (From Primaxin) Allergy Unknown Unknown Verified 08/09/24 11:07 ciprofloxacin (From Cipro) Allergy Unknown Unknown Verified 08/09/24 11:07 imipenem (From Primaxin) Allergy Unknown Unknown Verified 08/09/24 11:07 Iodinated Contrast Media Allergy Unknown Unknown Verified 08/09/24 11:07 Exam Constitutional Vital Signs, click to edit/add: Last Vital Signs Temp 97.9 F 08/18/24 17:03 Pulse 108 H 08/18/24 18:00 Resp 18 08/18/24 18:00 BP 91/41 L 08/18/24 17:06 Pulse Ox 96 08/18/24 18:00 O2 Del Method Room Air 08/18/24 17:03 Documenting provider has reviewed patient's vital signs: yes Common normals: no apparent distress (moderate to at times severe distress due to pain) Exam limitations: altered mental status (but slow in mentation) HENMT Common normals: head/scalp atraumatic Mouth: tongue not normal (dry) Chest Common normals: inspection of chest normal Respiratory Common normals: normal respiratory effort Cardio Common normals: regular rate Neuro Common normals: CN's II-XII intact bilaterally Sensorium/orientation: awake and alert (but slow in mentation) Motor exam: abnormal strength (some movement of arms, no movement of legs - his baseline) Results Labs Labs: Short CBC 08/18/24 Range/Units 17:17 WBC 7.6 (4.0-11.0) 10^3/uL Hgb 6.2 L* (14.0-18.0) g/dL Hct 22.0 L* (42.0-54.0) % Plt Count 90 L (150-450) 10^3/uL BMP 08/18/24 17:17 Sodium 140 Potassium 5.0 Chloride 113 H Carbon Dioxide 12.0 L BUN 91.0 H* Creatinine 4.82 H Glucose 107 H Calcium 8.4 L Liver Function 08/18/24 Range/Units 17:17 Total Bilirubin 0.2 (0.2-1.0) mg/dL AST 11 L (15-37) U/L ALT <6 L (16-63) U/L Alkaline Phosphatase 81 (46-116) U/L Albumin 1.8 L (3.4-5.0) g/dL ABG ABG results: 08/18/24 17:17 VBG pH 7.180 L VBG pCO2 27.9 L Assessment and Plan Assessment and Plan (1) Weakness: (2) Acute renal failure: (3) Dehydration: (4) Anemia requiring transfusions: (5) Sepsis associated hypotension: (6) Multisystem organ failure: (7) Altered mental status: (8) Chronic complete quadriplegia: (9) Thrombocytopenia: (10) Acute anemia: (11) Sinus tachycardia: (12) Hypotension: (13) Coagulopathy: (14) Hyperchloremic metabolic acidosis: (15) Severe protein-calorie malnutrition: Plan Admission assessment: AMS, Hypotension, tchycardia, resp distress, hyperchloremic metabolic acidosis resulting in sepsis with multisystem organ dysfunctiuon. (AMS, Renal failure, cardiac) Sepsis with MSOD: IV AB, blood cx, urine cx, Fluid boluses, PRN levophed, albumin for BP support , consider steroids. Based on previous culture results, and resistance patter of the ecoli and pseudomonas, dora start with levofloxacin and fortaz. due to severity of illness and hx of MRSA, adding linezolid Acute blood loss anemia - type, cross and transfuse 2 U [facility], IV protonix Coagulopathy - due to the above- repeat labs, not severe - holding on ffp L Severe hypotension due to the above - see above Quadriplegia - cont with home PT regime Thrombocytopenia due to bone marrow suppression due to sepsis - monitor daily Admission Status: Sepsis with MSOD due to urinary tract infection with hs of infection from mrsa, and recently pseudomonas and ecoli. Medically neccessary treatment in the ICU will span two midnights. Inpatient status
[2024-08-18 19:03] LABS: Bilirubin Urine NEGATIVE (NEGATIVE); Blood Urine MODERATE (NEGATIVE); Clarity Urine CLEAR (CLEAR); Color Urine LT. YELLOW (YELLOW); Glucose Urine UA NEGATIVE (NEGATIVE); Ketones Urine NEGATIVE (NEGATIVE); Leukocyte Esterase Urine LARGE (NEGATIVE); Nitrite Urine NEGATIVE (NEGATIVE); Protein Urine >=300 mg/dL (NEG/TRACE); Urine Microscopic Indicated YES; Urobilinogen Urine 0.2 EU/dL (0.2-1.0)
[2024-08-18 19:39] LABS: WBC Urine >100 #/HPF (NONE SEEN)
[2024-08-18 19:40] LABS: Bacteria Urine MODERATE #/HPF (NONE SEEN); Mucus Urine NONE SEEN (NONE SEEN)
[2024-08-18 19:41] LABS: Cast Seen? NONE SEEN #/LPF (NONE SEEN); Crystals Seen? None Seen #/HPF (None Seen); Squamous Epithelial Cell Urine NONE SEEN #/LPF (NONE/RARE); Urine Culture Indicated YES
[2024-08-18] MEDS: 0.9 % SODIUM CHLORIDE 1,000 ML 1000 ML IV (21:35)
--- OUTSIDE RECORDS SUMMARY | 2024-08-18 22:13 | XMS_ITS | CCD ---
Author Organization [facility] Care Team Providers Care Banking Representative Name Role Phone HOY ., DR WEBBER [...] Unavailable HOY ., DR WEBBER Admherman Unavailable FREDERICK, DR MAGY [employer] Unavailable HOY ., [...] source) ceFAZolin Drug Allergy 04-21-20 13 [facility] Repository (1 source) Cilastatin / Imipenem Drug Allergy 04-21-20 13 [facility] Repository (1 source) Readi-Cat Drug allergy (disorder) 04-21-20 13 [facility] Repository (1 source) ceFAZolin; Translations: [CEFAZOLIN] Drug Allergy 12-01-19 13 [facility] Repository (1 source) Cephalexin; Translations: [CEPHALEXIN MONOHYDRATE] Drug Allergy 08-03-20 09 [facility] Repository (1 source) Promazine; Translations: [PROMAZINE] Drug Allergy 12-01-19 13 [facility] Repository (1 source) Sulfamethoxazole / Trimethoprim; Translations: [SULFAMETHOXAZOLE-TR IMETHOPRIM] Drug Allergy 03-10-20 23 [facility] Repository (1 source) IODINATED CONTRAST MEDIA; Translations: [IODINATED CONTRAST MEDIA] Propensity to adverse reactions to drug (disorder) 12-01-19 13 [facility] Repository Problems Active Problems Problem [...] RESISTANT TO ALL B-LACTAM DRUGS. PERFORMED BY: [place] [address] PATHOLOGIST FASHION MERCHANDISER MARLA VEGA M.D. [facility] Comment on above: Performed By: #### A MAI LAYNE #### [place] [id number] [place] Gram Stainon 06-03-2023 Microscopic observation Gram stain Nom (Unsp spec) Gram Stain Result No Bacteria Seen PERFORMED BY: [place] [address] PATHOLOGIST FASHION MERCHANDISER MARLA VEGA M.D. [facility] Comment on above: Performed By: #### A MAI LAYNE #### [place] [id number] [place] CULTURE URINEon 03-06-2023 CULTURE URINE Isolate [...] F Levofloxacin 2 S F Normal [facility] Comment on above: Performed By: #### U RCX #### [facility] [address] [place] [address] Dr. Marvin Reis UA RANDOM W/MICROSCOPICon BACTERIA SMALL Abnormal NONE SEEN [facility] Comment on above: Performed By: #### U AMIC #### [facility] [address] [place] [address] Dr. Marvin Reis Bilirubin Ql (U) Negative Normal NEGATIVE The [facility] Comment on above: Performed By: #### U AMIC #### [facility] [address] [place] [address] Dr. Marvin Reis CAST NONE SEEN Normal NONE SEEN [facility] Comment on above: Performed By: #### U AMIC #### [facility] [address] [place] [address] Dr. Marvin Reis Clarity (U) CLEAR Normal CLEAR [facility] Comment on above: Performed By: #### U AMIC #### [facility] [address] [place] [address] Dr. Marvin Reis Color (U) LT. YELLOW Normal YELLOW [facility] Comment on above: Performed By: #### U AMIC #### [facility] [address] [address] [address] Marvin Reis Crystals LM Nom (Urine sed) NONE SEEN Normal NONE SEEN [facility] Comment on above: Performed By: #### U AMIC #### [facility] [address] [place] [address] Dr. Marvin Reis Epithelial cells LM Ql (Urine sed) RARE Normal NONE SEEN /RARE [facility] Comment on above: Performed By: #### U AMIC #### [facility] [address] [address] [address] Marvin Reis Glucose Ql (U) Negative Normal NEGATIVE [facility] Comment on above: Performed By: #### U AMIC #### [facility] [address] [place] [address] Dr. Marvin Reis Hemoglobin Ql (U) Negative Normal NEGATIVE The [facility] Comment on above: Performed By: #### U AMIC #### [facility] [address] [place] [address] Dr. Marvin Reis Ketones Ql (U) Negative Normal NEGATIVE [facility] Comment on above: Performed By: #### U AMIC #### [facility] [address] [place] [address] Dr. Marvin Reis LEUKOCYTES SMALL Abnormal NEGATIVE [facility] Comment on above: Performed By: #### U AMIC #### [facility] [address] [place] [address] Dr. Marvin Reis MUCOUS NONE SEEN Normal NONE SEEN [facility] Comment on above: Performed By: #### U AMIC #### [facility] [address] [place] [address] Dr. Marvin Reis Nitrite Ql (U) Negative Normal NEGATIVE [facility] Comment on above: Performed By: #### U AMIC #### [facility] [address] [place] [address] Dr. Marvin Reis pH (U) 6.0 [pH] Normal 5-9 [facility] Comment on above: Performed By: #### U AMIC #### [facility] [address] [place] [address] Dr. Marvin Reis RBC 0-2 Normal 0-2 [facility] Comment on above: Performed By: #### U AMIC #### [facility] [address] [place] [address] Dr. Marvin Reis SPEC GRAVITY 1.010 Normal 1.005-<=1.025 [facility] Comment on above: Performed By: #### U AMIC #### [facility] [address] [address] [address] Marvin Reis UA PROTEIN Negative Normal NEGATIVE/ TRACE [facility] Comment on above: Performed By: #### U AMIC #### [facility] [address] [place] [address] Dr. Marvin Reis Urobilinogen Qn (U) 0.2 {Robbie'U}/dL Normal 0.2 - 1. 0 [facility] Comment on above: Performed By: #### U AMIC #### [facility] [address] [place] [address] Dr. Marvin Reis WBC 5-10 Abnormal NONE SEEN [facility] Comment on above: Performed By: #### U AMIC #### [facility] [address] [place] [address] Dr. Marvin Reis CULTURE URINEon 02-13-2023 CULTURE [...] F Levofloxacin 2 S F Normal [facility] Comment on above: Performed By: #### U RCX #### [facility] [address] [place] [address] Dr. Marvin Reis UA RANDOM W/MICROSCOPICon BACTERIA MODERATE Abnormal NONE SEEN [facility] Comment on above: Performed By: #### U AMIC #### [facility] [address] [place] [address] Dr. Marvin Reis Bilirubin Ql (U) Negative Normal NEGATIVE [facility] Comment on above: Performed By: #### U AMIC #### [facility] [address] [place] [address] Dr. Marvin Reis CAST NONE SEEN Normal NONE SEEN [facility] Comment on above: Performed By: #### U AMIC #### [facility] [address] [place] [address] Dr. Marvin Reis Clarity (U) CLEAR Normal CLEAR [facility] Comment on above: Performed By: #### U AMIC #### [facility] [address] [place] [address] Dr. Marvin Reis Color (U) LT. YELLOW Normal YELLOW [facility] Comment on above: Performed By: #### U AMIC #### [facility] [address] [place] [address] Dr. Marvin Reis Crystals LM Nom (Urine sed) NONE SEEN Normal NONE SEEN [facility] Comment on above: Performed By: #### U AMIC #### [facility] [address] [place] [address] Dr. Marvin Reis Epithelial cells LM Ql (Urine sed) MODERATE Abnormal NONE SEEN /RARE [facility] Comment on above: Performed By: #### U AMIC #### [facility] [address] [place] [address] Dr. Marvin Reis Glucose Ql (U) Negative Normal NEGATIVE [facility] Comment on above: Performed By: #### U AMIC #### [facility] [address] [place] [address] Dr. Marvin Reis Hemoglobin Ql (U) SMALL Abnormal NEGATIVE The [facility] Comment on above: Performed By: #### U AMIC #### [facility] [address] [address] [address] Marvin Reis Ketones Ql (U) Negative Normal NEGATIVE [facility] Comment on above: Performed By: #### U AMIC #### [facility] [address] [address] [address] Marvin Reis LEUKOCYTES LARGE Abnormal NEGATIVE [facility] Comment on above: Performed By: #### U AMIC #### [facility] [address] [address] [address] Marvin Reis MUCOUS NONE SEEN Normal NONE SEEN [facility] Comment on above: Performed By: #### U AMIC #### [facility] [address] [place] [address] Dr. Marvin Reis Nitrite Ql (U) Positive Abnormal NEGATIVE [facility] Comment on above: Performed By: #### U AMIC #### [facility] [address] [address] [address] Marvin Reis pH (U) 5.5 [pH] Normal 5-9 [facility] Comment on above: Performed By: #### U AMIC #### [facility] [address] [address] [address] Marvin Reis RBC 5-10 Abnormal 0-2 [facility] Comment on above: Performed By: #### U AMIC #### [facility] [address] [address] [address] Marvin Reis SPEC GRAVITY 1.015 Normal 1.005-<=1.025 [facility] Comment on above: Performed By: #### U AMIC #### [facility] [address] [address] [address] Marvin Reis UA PROTEIN Negative Normal NEGATIVE/ TRACE [facility] Comment on above: Performed By: #### U AMIC #### [facility] [address] [place] [address] Dr. Marvin Reis Urobilinogen Qn (U) 0.2 {Robbie'U}/dL Normal 0.2 - 1. 0 [facility] Comment on above: Performed By: #### U AMIC #### [facility] [address] [place] [address] Dr. Marvin Reis WBC 50-75 Abnormal NONE SEEN [facility] Comment on above: Performed By: #### U AMIC #### [facility] [address] [id number] Marvin Reis CULTURE URINEon 01-23-2023 CULTURE [...] Trimethoprim/Sulfamet hoxazole <=10 S F Normal [facility] Comment on above: Performed By: #### U AMIC #### [facility] [address] [place] [address] Dr. Marvin Reis UA RANDOM W/MICROSCOPICon BACTERIA TRACE Abnormal NONE SEEN [facility] Comment on above: Performed By: #### U AMIC #### [facility] [address] [place] [address] Dr. Marvin Reis Bilirubin Ql (U) Negative Normal NEGATIVE The [facility] Comment on above: Performed By: #### U AMIC #### [facility] [address] [address] [address] Marvin Reis CAST NONE SEEN Normal NONE SEEN [facility] Comment on above: Performed By: #### U AMIC #### [facility] [address] [address] [address] Marvin Reis Clarity (U) SL CLOUDY Abnormal CLEAR [facility] Comment on above: Performed By: #### U AMIC #### [facility] [address] [address] [address] Marvin Reis Color (U) LT. YELLOW Normal YELLOW [facility] Comment on above: Performed By: #### U AMIC #### [facility] [address] [place] [address] Dr. Marvin Reis Crystals LM Nom (Urine sed) NONE SEEN Normal NONE SEEN [facility] Comment on above: Performed By: #### U AMIC #### [facility] [address] [place] [address] Dr. Marvin Reis Epithelial cells LM Ql (Urine sed) NONE SEEN Normal NONE SEEN /RARE [facility] Comment on above: Performed By: #### U AMIC #### [facility] [address] [place] [address] Dr. Marvin Reis Glucose Ql (U) Negative Normal NEGATIVE The [facility] Comment on above: Performed By: #### U AMIC #### [facility] [address] [address] [address] Marvin Reis Hemoglobin Ql (U) Negative Normal NEGATIVE The [facility] Comment on above: Performed By: #### U AMIC #### [facility] [address] [address] [address] Marvin Reis Ketones Ql (U) Negative Normal NEGATIVE The [facility] Comment on above: Performed By: #### U AMIC #### [facility] [address] [place] [address] Dr. Marvin Reis LEUKOCYTES TRACE Abnormal NEGATIVE The [facility] Comment on above: Performed By: #### U AMIC #### [facility] [address] [address] [address] Marvin Reis MUCOUS NONE SEEN Normal NONE SEEN [facility] Comment on above: Performed By: #### U AMIC #### [facility] [address] [place] [address] Dr. Marvin Reis Nitrite Ql (U) Negative Normal NEGATIVE [facility] Comment on above: Performed By: #### U AMIC #### [facility] [address] [place] [address] Dr. Marvin Reis pH (U) 6.0 [pH] Normal 5-9 [facility] Comment on above: Performed By: #### U AMIC #### [facility] [address] [place] [address] Dr. Marvin Reis RBC NONE SEEN Abnormal 0-2 [facility] Comment on above: Performed By: #### U AMIC #### [facility] [address] [place] [address] Dr. Marvin Reis SPEC GRAVITY 1.020 Normal 1.005-<=1.025 [facility] Comment on above: Performed By: #### U AMIC #### [facility] [address] [place] [address] Dr. Marvin Reis UA PROTEIN Negative Normal NEGATIVE/ TRACE [facility] Comment on above: Performed By: #### U AMIC #### [facility] [address] [place] [address] Dr. Marvin Reis Urobilinogen Qn (U) 0.2 {Robbie'U}/dL Normal 0.2 - 1. 0 [facility] Comment on above: Performed By: #### U AMIC #### [facility] [address] [place] [address] Dr. Marvin Reis WBC 10-20 Abnormal NONE SEEN [facility] Comment on above: Performed By: #### U AMIC #### [facility] [address] [place] [address] Dr. Marvin Reis CULTURE URINEon 01-07-2023 CULTURE URINE Isolate 1 Dawna albicans 10,000 cfu/mL of Normal [facility] Comment on above: Performed By: #### U RCX #### [facility] [address] [address] [address] Marvin Reis UA RANDOM W/MICROSCOPICon BACTERIA TRACE Abnormal NONE SEEN [facility] Comment on above: Performed By: #### U AMIC #### [facility] [address] [address] [address] Marvin Reis Bilirubin Ql (U) Negative Normal NEGATIVE The [facility] Comment on above: Performed By: #### U AMIC #### [facility] [address] [address] [address] Marvin Reis CA OX CRYSTALS RARE Normal [facility] Comment on above: Performed By: #### U AMIC #### [facility] [address] [address] [address] Marvin Reis CAST NONE SEEN Normal NONE SEEN [facility] Comment on above: Performed By: #### U AMIC #### [facility] [address] [address] [address] Marvin Reis Clarity (U) CLEAR Normal CLEAR [facility] Comment on above: Performed By: #### U AMIC #### [facility] [address] [address] [address] Marvin Reis Color (U) LT. YELLOW Normal YELLOW [facility] Comment on above: Performed By: #### U AMIC #### [facility] [address] [address] [address] Marvin Reis Crystals LM Nom (Urine sed) SEEN Abnormal NONE SEEN [facility] Comment on above: Performed By: #### U AMIC #### [facility] [address] [address] [address] Marvin Reis Epithelial cells LM Ql (Urine sed) FEW Abnormal NONE SEEN /RARE [facility] Comment on above: Performed By: #### U AMIC #### [facility] [address] [address] [address] Marvin Reis Glucose Ql (U) Negative Normal NEGATIVE The [facility] Comment on above: Performed By: #### U AMIC #### [facility] [address] [address] [address] Marvin Reis Hemoglobin Ql (U) Negative Normal NEGATIVE The [facility] Comment on above: Performed By: #### U AMIC #### [facility] [address] [address] [address] Marvin Reis Ketones Ql (U) Negative Normal NEGATIVE [facility] Comment on above: Performed By: #### U AMIC #### [facility] [address] [address] [address] Marvin Reis LEUKOCYTES SMALL Abnormal NEGATIVE The [facility] Comment on above: Performed By: #### U AMIC #### [facility] [address] [place] [address] Dr. Marvin Reis MUCOUS NONE SEEN Normal NONE SEEN [facility] Comment on above: Performed By: #### U AMIC #### [facility] [address] [place] [address] Dr. Marvin Reis Nitrite Ql (U) Negative Normal NEGATIVE The [facility] Comment on above: Performed By: #### U AMIC #### [facility] [address] [place] [address] Dr. Marvin Reis pH (U) 5.5 [pH] Normal 5-9 [facility] Comment on above: Performed By: #### U AMIC #### [facility] [address] [place] [address] Dr. Marvin Reis RBC 0-2 Normal 0-2 [facility] Comment on above: Performed By: #### U AMIC #### [facility] [address] [place] [address] Dr. Marvin Reis SPEC GRAVITY 1.015 Normal 1.005-<=1.025 [facility] Comment on above: Performed By: #### U AMIC #### [facility] [address] [place] [address] Dr. Marvin Reis UA PROTEIN Negative Normal NEGATIVE/ TRACE [facility] Comment on above: Performed By: #### U AMIC #### [facility] [address] [place] [address] Dr. Marvin Reis Urobilinogen Qn (U) 0.2 {Robbie'U}/dL Normal 0.2 - 1. 0 [facility] Comment on above: Performed By: #### U AMIC #### [facility] [address] [place] [address] Dr. Marvin Reis WBC 50-75 Abnormal NONE SEEN The [facility] Comment on above: Performed By: #### U AMIC #### [facility] [address] [place] [address] Dr. Marvin Reis YEAST PRESENT Abnormal NONE SEEN [facility] Comment on above: Performed By: #### U AMIC #### [facility] [address] [place] [address] Dr. Marvin Reis CULTURE URINEon 12-25-2022 CULTURE [...] Trimethoprim/Sulfamet hoxazole >=320 R F Normal [facility] Comment on above: Performed By: #### U RCX #### [facility] [address] [place] [address] Dr. Marvin Reis UA RANDOM W/MICROSCOPICon BACTERIA NONE SEEN Normal NONE SEEN [facility] Comment on above: Performed By: #### U AMIC #### [facility] [address] [place] [address] Dr. Marvin Reis Bilirubin Ql (U) Negative Normal NEGATIVE The [facility] Comment on above: Performed By: #### U AMIC #### [facility] [address] [place] [address] Dr. Marvin Reis CAST NONE SEEN Normal NONE SEEN [facility] Comment on above: Performed By: #### U AMIC #### [facility] [address] [place] [address] Dr. Marvin Reis Clarity (U) CLEAR Normal CLEAR [facility] Comment on above: Performed By: #### U AMIC #### [facility] [address] [address] [address] Marvin Reis Color (U) LT. YELLOW Normal YELLOW [facility] Comment on above: Performed By: #### U AMIC #### [facility] [address] [place] [address] Dr. Marvin Reis Crystals LM Nom (Urine sed) NONE SEEN Normal NONE SEEN [facility] Comment on above: Performed By: #### U AMIC #### [facility] [address] [place] [address] Dr. Marvin Reis Epithelial cells LM Ql (Urine sed) RARE Normal NONE SEEN /RARE [facility] Comment on above: Performed By: #### U AMIC #### [facility] [address] [place] [address] Dr. Marvin Reis Glucose Ql (U) Negative Normal NEGATIVE [facility] Comment on above: Performed By: #### U AMIC #### [facility] [address] [place] [address] Dr. Marvin Reis Hemoglobin Ql (U) Negative Normal NEGATIVE The [facility] Comment on above: Performed By: #### U AMIC #### [facility] [address] [address] [address] Marvin Reis Ketones Ql (U) Negative Normal NEGATIVE [facility] Comment on above: Performed By: #### U AMIC #### [facility] [address] [place] [address] Dr. Marvin Reis LEUKOCYTES MODERATE Abnormal NEGATIVE The [facility] Comment on above: Performed By: #### U AMIC #### [facility] [address] [place] [address] Dr. Marvin Reis MUCOUS NONE SEEN Normal NONE SEEN [facility] Comment on above: Performed By: #### U AMIC #### [facility] [address] [place] [address] Dr. Marvin Reis Nitrite Ql (U) Negative Normal NEGATIVE [facility] [facility] Comment on above: Performed By: #### U AMIC #### [facility] [address] [place] [address] Dr. Marvin Reis pH (U) 5.5 [pH] Normal 5-9 [facility] Comment on above: Performed By: #### U AMIC #### [facility] [address] [place] [address] Dr. Marvin Reis RBC NONE SEEN Abnormal 0-2 [facility] Comment on above: Performed By: #### U AMIC #### [facility] [address] [place] [address] Dr. Marvin Reis SPEC GRAVITY 1.015 Normal 1.005-<=1.025 [facility] Comment on above: Performed By: #### U AMIC #### [facility] [address] [place] [address] Dr. Marvin Reis UA PROTEIN Negative Normal NEGATIVE/ TRACE [facility] Comment on above: Performed By: #### U AMIC #### [facility] [address] [place] [address] Dr. Marvin Reis Urobilinogen Qn (U) 0.2 {Robbie'U}/dL Normal 0.2 - 1. 0 [facility] Comment on above: Performed By: #### U AMIC #### [facility] [address] [place] [address] Dr. Marvin Reis WBC 10-20 Abnormal NONE SEEN [facility] Comment on above: Performed By: #### U AMIC #### [facility] [address] [place] [address] Dr. Marvin Reis CULTURE URINEon 12-05-2022 CULTURE [...] Trimethoprim/Sulfamet hoxazole <=20 S F Normal [facility] Comment on above: Performed By: #### U RCX #### [facility] [address] [place] [address] Dr. Marvin Reis CREATININEon 12-03-2022 Creatinine [Mass/Vol] 0.88 mg/dL Normal 0.70-1.30 [facility] Comment on above: Performed By: #### U RCX #### [facility] [address] [place] [address] Dr. Marvin Reis EGFR-AF CITIZEN OF [place] >60 Normal >=60 [facility] Comment on above: Performed By: #### U RCX #### [facility] [address] [place] [address] Dr. Marvin Reis EGFR-NON AF CITIZEN OF [place] >60 Normal >=60 [facility] Comment on above: Performed By: #### U RCX #### [facility] [address] [place] [address] ABDOMEN WO/W CONon [...] ELENO PARKER Date: 2022-12-03 14:51 Normal [facility] UA RANDOM W/MICROSCOPICon BACTERIA TRACE Abnormal NONE SEEN [facility] Comment on above: Performed By: #### U RCX #### [facility] [address] [place] [address] Dr. Marvin Reis Bilirubin Ql (U) Negative Normal NEGATIVE [facility] Comment on above: Performed By: #### U RCX #### [facility] [address] [place] [address] Dr. Marvin Reis CAST NONE SEEN Normal NONE SEEN [facility] Comment on above: Performed By: #### U RCX #### [facility] [address] [place] [address] Dr. Marvin Reis Clarity (U) CLEAR Normal CLEAR [facility] Comment on above: Performed By: #### U RCX #### [facility] [address] [place] [address] Dr. Marvin Reis Color (U) LT. YELLOW Normal YELLOW [facility] Comment on above: Performed By: #### U RCX #### [facility] [address] [place] [address] Dr. Marvin Reis Crystals LM Nom (Urine sed) NONE SEEN Normal NONE SEEN [facility] Comment on above: Performed By: #### U RCX #### [facility] [address] [place] [address] Dr. Marvin Reis Epithelial cells LM Ql (Urine sed) RARE Normal NONE SEEN /RARE [facility] Comment on above: Performed By: #### U RCX #### [facility] [address] [address] [address] Marvin Reis Glucose Ql (U) Negative Normal NEGATIVE [facility] Comment on above: Performed By: #### U RCX #### [facility] [address] [address] [address] Marvin Reis Hemoglobin Ql (U) TRACE-INTACT Abnormal NEGATIVE [facility] Comment on above: Performed By: #### U RCX #### [facility] [address] [address] [address] Marvin Reis Ketones Ql (U) Negative Normal NEGATIVE [facility] Comment on above: Performed By: #### U RCX #### [facility] [address] [place] [address] Dr. Marvin Reis LEUKOCYTES TRACE Abnormal NEGATIVE [facility] Comment on above: Performed By: #### U RCX #### [facility] [address] [address] [address] Marvin Reis MUCOUS TRACE Abnormal NONE SEEN [facility] Comment on above: Performed By: #### U RCX #### [facility] [address] [place] [address] Dr. Marvin Reis Nitrite Ql (U) Negative Normal NEGATIVE [facility] Comment on above: Performed By: #### U RCX #### [facility] [address] [address] [address] Marvin Reis pH (U) 5.0 [pH] Normal 5-9 [facility] Comment on above: Performed By: #### U RCX #### [facility] [address] [address] [address] Marvin Reis RBC 0-2 Normal 0-2 [facility] Comment on above: Performed By: #### U RCX #### [facility] [address] [place] [address] Dr. Marvin Reis SPEC GRAVITY 1.010 Normal 1.005-<=1.025 [facility] Comment on above: Performed By: #### U RCX #### [facility] [address] [place], [place] [address] Dr. Marvin Reis UA PROTEIN TRACE Normal NEGATIVE/ TRACE [facility] Comment on above: Performed By: #### U RCX #### [facility] [address] [place], [place] [address] Dr. Marvin Reis Urobilinogen Qn (U) 0.2 {Robbie'U}/dL Normal 0.2 - 1. 0 [facility] Comment on above: Performed By: #### U RCX #### [facility] [address] [address] [address] Marvin Reis WBC 2-5 Abnormal NONE SEEN [facility] Comment on above: Performed By: #### U RCX #### [facility] [address] [address] ABD/PELVIS WO CONon [...] MAGY COMER Date: 2022-11-20 14:51 Normal [facility] CULTURE URINEon 11-11-2022 CULTURE URINE Culture Observations : GUSTABO TO FOLLOW. Isolate 1 Enterobacter aerogenes >100,000 cfu/mL of Normal [facility] Comment on above: Performed By: #### U RCX #### [facility] [address] [place] [address] Dr. Marvin Reis UA RANDOM W/MICROSCOPICon BACTERIA SMALL Abnormal NONE SEEN [facility] Comment on above: Performed By: #### U AMIC #### [facility] [address] [place] [address] Dr. Marvin Reis Bilirubin Ql (U) Negative Normal NEGATIVE [facility] Comment on above: Performed By: #### U AMIC #### [facility] [address] [place] [address] Dr. Marvin Reis CAST NONE SEEN Normal NONE SEEN [facility] Comment on above: Performed By: #### U AMIC #### [facility] [address] [place] [address] Dr. Marvin Reis Clarity (U) CLOUDY Abnormal CLEAR [facility] Comment on above: Performed By: #### U AMIC #### [facility] [address] [place] [address] Dr. Marvin Reis Color (U) LT. YELLOW Normal YELLOW [facility] Comment on above: Performed By: #### U AMIC #### [facility] [address] [address] [address] Marvin Reis Crystals LM Nom (Urine sed) NONE SEEN Normal NONE SEEN [facility] Comment on above: Performed By: #### U AMIC #### [facility] [address] [address] [address] Marvin Reis Epithelial cells LM Ql (Urine sed) NONE SEEN Normal NONE SEEN /RARE [facility] Comment on above: Performed By: #### U AMIC #### [facility] [address] [address] [address] Mravin Reis Glucose Ql (U) Negative Normal NEGATIVE [facility] Comment on above: Performed By: #### U AMIC #### [facility] [address] [place] [address] Dr. Marvin Reis Hemoglobin Ql (U) TRACE-INTACT Abnormal NEGATIVE [facility] Comment on above: Performed By: #### U AMIC #### [facility] [address] [address] [address] Marvin Reis Ketones Ql (U) Negative Normal NEGATIVE [facility] Comment on above: Performed By: #### U AMIC #### [facility] [address] [address] [address] Marvin Reis LEUKOCYTES LARGE Abnormal NEGATIVE [facility] Comment on above: Performed By: #### U AMIC #### [facility] [address] [address] [address] Marvin Reis MUCOUS NONE SEEN Normal NONE SEEN [facility] Comment on above: Performed By: #### U AMIC #### [facility] [address] [place] [address] Dr. Marvin Reis Nitrite Ql (U) Positive Abnormal NEGATIVE [facility] Comment on above: Performed By: #### U AMIC #### [facility] [address] [place] [address] Dr. Marvin Reis pH (U) 5.5 [pH] Normal 5-9 [facility] Comment on above: Performed By: #### U AMIC #### [facility] [address] [place] [address] Dr. Marvin Reis RBC 0-2 Normal 0-2 [facility] Comment on above: Performed By: #### U AMIC #### [facility] [address] [place] [address] Dr. Marvin Reis SPEC GRAVITY 1.015 Normal 1.005-<=1.025 [facility] Comment on above: Performed By: #### U AMIC #### [facility] [address] [place] [address] Dr. Marvin Reis UA PROTEIN Negative Normal NEGATIVE/ TRACE [facility] Comment on above: Performed By: #### U AMIC #### [facility] [address] [place] [address] Dr. Marvin Reis Urobilinogen Qn (U) 0.2 {Robbie'U}/dL Normal 0.2 - 1. 0 [facility] Comment on above: Performed By: #### U AMIC #### [facility] [address] [place] [address] Dr. Marvin Reis WBC 10-20 Abnormal NONE SEEN [facility] Comment on above: Performed By: #### U AMIC #### [facility] [address] [place] [address] Dr. Marvin Reis CULTURE URINEon 10-24-2022 CULTURE [...] Trimethoprim/Sulfamet hoxazole <=20 S F Normal [facility] Comment on above: Performed By: #### U RCX #### [facility] [address] [place] [address] Dr. Marvin Reis UA RANDOM W/MICROSCOPICon BACTERIA LARGE Abnormal NONE SEEN [facility] Comment on above: Performed By: #### U AMIC #### [facility] [address] [address] [address] Marvin Reis Bilirubin Ql (U) Negative Normal NEGATIVE [facility] Comment on above: Performed By: #### U AMIC #### [facility] [address] [address] [address] Marvin Reis CAST NONE SEEN Normal NONE SEEN [facility] Comment on above: Performed By: #### U AMIC #### [facility] [address] [address] [address] Marvin Reis Clarity (U) SL CLOUDY Abnormal CLEAR [facility] Comment on above: Performed By: #### U AMIC #### [facility] [address] [address] [address] Marvin Reis Color (U) YELLOW Normal YELLOW [facility] Comment on above: Performed By: #### U AMIC #### [facility] [address] [address] [address] Marvin Reis Crystals LM Nom (Urine sed) NONE SEEN Normal NONE SEEN [facility] Comment on above: Performed By: #### U AMIC #### [facility] [address] [address] [address] Marvin Reis Epithelial cells LM Ql (Urine sed) FEW Abnormal NONE SEEN /RARE [facility] Comment on above: Performed By: #### U AMIC #### [facility] [address] [address] [address] Marvin Reis Glucose Ql (U) Negative Normal NEGATIVE [facility] Comment on above: Performed By: #### U AMIC #### [facility] [address] [address] [address] Marvin Reis Hemoglobin Ql (U) TRACE-INTACT Abnormal NEGATIVE [facility] Comment on above: Performed By: #### U AMIC #### [facility] [address] [address] [address] Marvin Reis Ketones Ql (U) Negative Normal NEGATIVE [facility] Comment on above: Performed By: #### U AMIC #### [facility] [address] [address] [address] Marvin Reis LEUKOCYTES LARGE Abnormal NEGATIVE [facility] Comment on above: Performed By: #### U AMIC #### [facility] [address] [address] [address] Marvin Reis MUCOUS NONE SEEN Normal NONE SEEN [facility] Comment on above: Performed By: #### U AMIC #### [facility] [address] [address] [address] Marvin Reis Nitrite Ql (U) Negative Normal NEGATIVE [facility] Comment on above: Performed By: #### U AMIC #### [facility] [address] [address] [address] Marvin Reis pH (U) 5.0 [pH] Normal 5-9 [facility] Comment on above: Performed By: #### U AMIC #### [facility] [address] [address] [address] Marvin Reis RBC 5-10 Abnormal 0-2 [facility] Comment on above: Performed By: #### U AMIC #### [facility] [address] [address] [address] Marvin Reis SPEC GRAVITY 1.010 Normal 1.005-<=1.025 [facility] Comment on above: Performed By: #### U AMIC #### [facility] [address] [place] [address] Dr. Marvin Reis UA PROTEIN Negative Normal NEGATIVE/ TRACE [facility] Comment on above: Performed By: #### U AMIC #### [facility] [address] [place] [address] Dr. Marvin Reis Urobilinogen Qn (U) 0.2 {Robbie'U}/dL Normal 0.2 - 1. 0 [facility] Comment on above: Performed By: #### U AMIC #### [facility] [address] [address] [address] Marvin Reis WBC 50-75 Abnormal NONE SEEN [facility] Comment on above: Performed By: #### U AMIC #### [facility] [address] [address] [address] Marvin Reis CULTURE URINEon 10-01-2022 CULTURE URINE Culture Observations : NO GROWTH. Normal [facility] Comment on above: Performed By: #### U AMIC #### [facility] [address] [address] [address] Marvin Reis UA RANDOM W/MICROSCOPICon BACTERIA SMALL Abnormal NONE SEEN [facility] Comment on above: Performed By: #### U AMIC #### [facility] [address] [address] [address] Marvin Reis Bilirubin Ql (U) Negative Normal NEGATIVE [facility] Comment on above: Performed By: #### U AMIC #### [facility] [address] [address] [address] Marvin Reis CAST SEEN Abnormal NONE SEEN [facility] Comment on above: Performed By: #### U AMIC #### [facility] [address] [address] [address] Marvin Reis Clarity (U) CLEAR Normal CLEAR [facility] Comment on above: Performed By: #### U AMIC #### [facility] [address] [address] [address] Marvin Reis Color (U) LT. YELLOW Normal YELLOW [facility] Comment on above: Performed By: #### U AMIC #### [facility] [address] [address] [address] Marvin Reis Crystals LM Nom (Urine sed) NONE SEEN Normal NONE SEEN [facility] Comment on above: Performed By: #### U AMIC #### [facility] [address] [address] [address] Marvin Reis Epithelial cells LM Ql (Urine sed) FEW Abnormal NONE SEEN /RARE [facility] Comment on above: Performed By: #### U AMIC #### [facility] [address] [place] [address] Dr. Marvin Reis Glucose Ql (U) Negative Normal NEGATIVE [facility] Comment on above: Performed By: #### U AMIC #### [facility] [address] [place] [address] Dr. Marvin Reis Hemoglobin Ql (U) TRACE-INTACT Abnormal NEGATIVE [facility] Comment on above: Performed By: #### U AMIC #### [facility] [address] [address] [address] Marvin Reis HYALINE CAST FEW Normal [facility] Comment on above: Performed By: #### U AMIC #### [facility] [address] [place] [address] Dr. Marvin Reis Ketones Ql (U) Negative Normal NEGATIVE [facility] Comment on above: Performed By: #### U AMIC #### [facility] [address] [place] [address] Dr. Marvin Reis LEUKOCYTES MODERATE Abnormal NEGATIVE [facility] Comment on above: Performed By: #### U AMIC #### [facility] [address] [place] [address] Dr. Marvin Reis MUCOUS SMALL Abnormal NONE SEEN [facility] Comment on above: Performed By: #### U AMIC #### [facility] [address] [place] [address] Dr. Marvin Reis Nitrite Ql (U) Negative Normal NEGATIVE [facility] Comment on above: Performed By: #### U AMIC #### [facility] [address] [place] [address] Dr. Marvin Reis pH (U) 5.5 [pH] Normal 5-9 [facility] Comment on above: Performed By: #### U AMIC #### [facility] [address] [place] [address] Dr. Marvin Reis RBC 0-2 Normal 0-2 [facility] Comment on above: Performed By: #### U AMIC #### [facility] [address] [place] [address] Dr. Marvin Reis SPEC GRAVITY 1.020 Normal 1.005-<=1.025 [facility] Comment on above: Performed By: #### U AMIC #### [facility] [address] [place] [address] Dr. Marvin Reis UA PROTEIN Negative Normal NEGATIVE/ TRACE [facility] Comment on above: Performed By: #### U AMIC #### [facility] [address] [address] [address] Marvin Reis Urobilinogen Qn (U) 0.2 {Robbie'U}/dL Normal 0.2 - 1. 0 [facility] Comment on above: Performed By: #### U AMIC #### [facility] [address] [address] [address] Marvin Reis WBC 10-20 Abnormal NONE SEEN [facility] Comment on above: Performed By: #### U AMIC #### [facility] [address] [address] [address] Marvin Reis CULTURE URINEon 09-26-2022 CULTURE [...] Trimethoprim/Sulfamet hoxazole <=20 S F Normal [facility] Comment on above: Performed By: #### U RCX #### [facility] [address] [place] [address] Dr. Marvin Reis CBC W MANUAL DIFFon 09-25-20 ANISOCYTOSIS SLIGHT Normal [facility] Comment on above: Performed By: #### U RCX #### [facility] [address] [place] [address] Dr. Marvin Reis ATYPICAL LYMPH # Normal [facility] Comment on above: Performed By: #### U RCX #### [facility] [address] [place] [address] Dr. Marvin Reis ATYPICAL LYMPH % Normal [facility] Comment on above: Performed By: #### U RCX #### [facility] [address] [place] [address] Dr. Marvin Reis BAND # Normal 0.0-0.3 [facility] Comment on above: Performed By: #### U RCX #### [facility] [address] [place] [address] Dr. Marvin Reis BAND % Normal 0-5 [facility] Comment on above: Performed By: #### U RCX #### [facility] [address] [place] [address] Dr. Marvin Reis BASOM # 0.00 103/ul Normal 0.00-0.10 [facility] Comment on above: Performed By: #### U RCX #### [facility] [address] [place] [address] Dr. Marvin Reis BASOM % 0.0 % Critically low 0.2-2.0 [facility] Comment on above: Performed By: #### U RCX #### [facility] [address] [place] [address] Dr. Marvin Reis BLAST # Normal [facility] Comment on above: Performed By: #### U RCX #### [facility] [address] [place] [address] Dr. Marvin Reis BLAST % Normal [facility] Comment on above: Performed By: #### U RCX #### [facility] [address] [place] [address] Dr. Marvin Reis CORRECTED WBC Normal 4.0-11.0 [facility] Comment on above: Performed By: #### U RCX #### [facility] [address] [place] [address] Dr. Marvin Reis EOS # 0.00 103/ul Normal 0.00-0.70 [facility] Comment on above: Performed By: #### U RCX #### [facility] [address] [place] [address] Dr. Marvin Reis EOS% 0.0 % Critically low 0.9-7.0 [facility] Comment on above: Performed By: #### U RCX #### [facility] [address] [place] [address] Dr. Marvin Reis HCT 32.1 % Critically low 42.0-54.0 [facility] Comment on above: Performed By: #### U RCX #### [facility] [address] [address] [address] Marvin Reis HGB 10.2 g/dl Critically low 14.0-18.0 [facility] Comment on above: Performed By: #### U RCX #### [facility] [address] [address] [address] Marvin Reis LYMPHM # 0.76 103/ul Critically low 1.20-3.80 [facility] Comment on above: Performed By: #### U RCX #### [facility] [address] [place] [address] Dr. Marvin Reis LYMPHM% 14.0 % Critically low 20.5-60.0 [facility] Comment on above: Performed By: #### U RCX #### [facility] [address] [place] [address] Dr. Marvin Reis MCH 26.5 pg Normal 25.9-34.0 [facility] Comment on above: Performed By: #### U RCX #### [facility] [address] [place] [address] Dr. Marvin Reis MCHC 31.8 g/dl Normal 29.9-35.2 [facility] Comment on above: Performed By: #### U RCX #### [facility] [address] [place] [address] Dr. Marvin Reis MCV 83.4 fL Normal 80.0-94.0 [facility] Comment on above: Performed By: #### U RCX #### [facility] [address] [address] [address] Marvin Reis METAMYELOCYTE # Normal [facility] Comment on above: Performed By: #### U RCX #### [facility] [address] [place] [address] Dr. Marvin Reis METAMYELOCYTE % Normal [facility] Comment on above: Performed By: #### U RCX #### [facility] [address] [address] [address] Marvin Reis MONOM# 0.27 103/ul Critically low 0.30-0.80 [facility] Comment on above: Performed By: #### U RCX #### [facility] [address] [address] [address] Marvin Reis MONOM% 5.0 % Normal 1.7-12.0 [facility] Comment on above: Performed By: #### U RCX #### [facility] [address] [address] [address] Marvin Reis MPV 9.8 fL Normal 9.5-13.5 [facility] Comment on above: Performed By: #### U RCX #### [facility] [address] [place] [address] Dr. Marvin Reis MYELOCYTE # Normal [facility] Comment on above: Performed By: #### U RCX #### [facility] [address] [address] [address] Marvin Reis MYELOCYTE % Normal [facility] Comment on above: Performed By: #### U RCX #### [facility] [address] [place] [address] Dr. Marvin Reis NRBC Normal [facility] Comment on above: Performed By: #### U RCX #### [facility] [address] [place] [address] Dr. Marvin Reis PLT 78 103/ul Critically low 150-450 [facility] Comment on above: Performed By: #### U RCX #### [facility] [address] [address] [address] Marvin Reis RBC 3.85 106/ul Critically low 4.70-6.10 [facility] Comment on above: Performed By: #### U RCX #### [facility] [address] [place] [address] Dr. Marvin Reis RDW 15.8 % Critically high 11.0-15.0 [facility] Comment on above: Performed By: #### U RCX #### [facility] [address] [address] [address] Marvin Reis SEG # 4.37 103/ul Normal 1.40-6.50 [facility] Comment on above: Performed By: #### U RCX #### [facility] [address] [address] [address] Marvin Reis SEG % 81.0 % Critically high 43.0-75.0 [facility] Comment on above: Performed By: #### U RCX #### [facility] [address] [place] [address] Dr. Marvin Reis WBC 5.4 103/ul Normal 4.0-11.0 [facility] Comment on above: Performed By: #### U RCX #### [facility] [address] [place] [address] Dr. Marvin Reis CRPon 09-25-2022 CRP 8.9 mg/dL Critically high <=1.0 [facility] Comment on above: Performed By: #### U AMIC #### [facility] [address] [place] [address] Dr. Marvin Reis LACTATE/LACTIC ACIDon 2021 Lactate [Moles/Vol] 0.9 mmol/L Normal 0.4-1.[address] [facility] Comment on above: Performed By: #### U RCX #### [facility] [address] [place] [address] Dr. Marvin Reis PROF 14(COMP METB)on 022 Albumin [Mass/Vol] 2.6 g/dL Critically low 3.4-5.0 [facility] Comment on above: Performed By: #### U AMIC #### [facility] [address] [address] [address] Marvin Reis Albumin/Globulin [Mass ratio] 0.7 {ratio} Normal [facility] Comment on above: Performed By: #### U AMIC #### [facility] [address] [address] [address] Marvin Reis ALP [Catalytic activity/Vol] 75 U/L Normal 46-116 [facility] Comment on above: Performed By: #### U AMIC #### [facility] [address] [address] [address] Marvin Reis ALT [Catalytic activity/Vol] 23 U/L Normal 16-63 [facility] Comment on above: Performed By: #### U AMIC #### [facility] [address] [address] [address] Marvin Reis Anion gap [Moles/Vol] 11.8 mmol/L Normal [facility] Comment on above: Performed By: #### U AMIC #### [facility] [address] [address] [address] Marvin Reis AST [Catalytic activity/Vol] 21 U/L Normal 15-37 [facility] Comment on above: Performed By: #### U AMIC #### [facility] [address] [address] [address] Marvin Reis Bilirubin [Mass/Vol] 0.8 mg/dL Normal 0.2-1.0 [facility] Comment on above: Performed By: #### U AMIC #### [facility] [address] [address] [address] Marvin Reis Calcium [Mass/Vol] 8.7 mg/dL Normal 8.5-10.1 [facility] Comment on above: Performed By: #### U AMIC #### [facility] [address] [address] [address] Marvin Reis Chloride [Moles/Vol] 105 mmol/L Normal 98-107 [facility] Comment on above: Performed By: #### U AMIC #### [facility] [address] [address] [address] Marvin Reis CO2 [Moles/Vol] 26.1 mmol/L Normal 21.0-32.0 [facility] Comment on above: Performed By: #### U AMIC #### [facility] [address] [address] [address] Marvin Reis Creatinine [Mass/Vol] 0.88 mg/dL Normal 0.70-1.30 [facility] Comment on above: Performed By: #### U AMIC #### [facility] [address] [address] [address] Marvin Reis EGFR-AF CITIZ[place] >60 Normal >=60 [facility] Comment on above: Performed By: #### U AMIC #### [facility] [address] [address] [address] Marvin Reis EGFR-NON AF CITIZEN OF [place] >60 Normal >=60 [facility] Comment on above: Performed By: #### U AMIC #### [facility] [address] [address] [address] Marvin Reis Globulin (S) [Mass/Vol] 3.7 g/dL Normal [facility] Comment on above: Performed By: #### U AMIC #### [facility] [address] [address] [address] Marvin Reis Glucose [Mass/Vol] 93 mg/dL Normal 74-106 [facility] Comment on above: Performed By: #### U AMIC #### [facility] [address] [address] [address] Marvin Reis Potassium [Moles/Vol] 3.9 mmol/L Normal 3.5-5.1 [facility] Comment on above: Performed By: #### U AMIC #### [facility] [address] [address] [address] Marvin Reis Protein [Mass/Vol] 6.3 g/dL Critically low 6.4-8.2 [facility] Comment on above: Performed By: #### U AMIC #### [facility] [address] [address] [address] Marvin Reis Sodium [Moles/Vol] 139 mmol/L Normal 136-145 [facility] Comment on above: Performed By: #### U AMIC #### [facility] [address] [address] [address] Marvin Reis Urea nitrogen [Mass/Vol] 20.0 mg/dL Critically high 7.0-18.0 [facility] Comment on above: Performed By: #### U AMIC #### [facility] [address] [place] [address] Dr. Marvin Reis Urea nitrogen/Creatinine [Mass ratio] 22.7 mg/mg Normal [facility] Comment on above: Performed By: #### U AMIC #### [facility] [address] [place] [address] Dr. Marvin Reis SED RATE WESTERGRENon 2021 SED RATE 49 mm/hr Critically high <=20 [facility] Comment on above: Performed By: #### U AMIC #### [facility] [address] [place] [address] Dr. Marvin Reis CBC W MANUAL DIFFon 09-24-20 ATYPICAL LYMPH # Normal [facility] Comment on above: Performed By: #### U RCX #### [facility] [address] [place] [address] Dr. Marvin Reis ATYPICAL LYMPH % Normal [facility] Comment on above: Performed By: #### U RCX #### [facility] [address] [place] [address] Dr. Marvin Reis BAND # Normal 0.0-0.3 [facility] Comment on above: Performed By: #### U RCX #### [facility] [address] [place] [address] Dr. Marvni Reis BAND % Normal 0-5 [facility] Comment on above: Performed By: #### U RCX #### [facility] [address] [place] [address] Dr. Marvin Reis BASOM # 0.00 103/ul Normal 0.00-0.10 [facility] Comment on above: Performed By: #### U RCX #### [facility] [address] [address] [address] Marvin Reis BASOM % 0.0 % Critically low 0.2-2.0 [facility] Comment on above: Performed By: #### U RCX #### [facility] [address] [place] [address] Dr. Marvin Reis BLAST # Normal [facility] Comment on above: Performed By: #### U RCX #### [facility] [address] [address] [address] Marvin Reis BLAST % Normal [facility] Comment on above: Performed By: #### U RCX #### [facility] [address] [place] [address] Dr. Marvin Reis CORRECTED WBC Normal 4.0-11.0 [facility] Comment on above: Performed By: #### U RCX #### [facility] [address] [address] [address] Marvin Reis EOS # 0.00 103/ul Normal 0.00-0.70 [facility] Comment on above: Performed By: #### U RCX #### [facility] [address] [place] [address] Dr. Marvin Reis EOS% 0.0 % Critically low 0.9-7.0 [facility] Comment on above: Performed By: #### U RCX #### [facility] [address] [place] [address] Dr. Marvin Reis HCT 33.5 % Critically low 42.0-54.0 [facility] Comment on above: Performed By: #### U RCX #### [facility] [address] [place] [address] Dr. Marvin Reis HGB 10.9 g/dl Critically low 14.0-18.0 [facility] Comment on above: Performed By: #### U RCX #### [facility] [address] [place] [address] Dr. Marvin Reis LYMPHM # 0.52 103/ul Critically low 1.20-3.80 [facility] Comment on above: Performed By: #### U RCX #### [facility] [address] [place] [address] Dr. Marvin Reis LYMPHM% 4.0 % Critically low 20.5-60.0 [facility] Comment on above: Performed By: #### U RCX #### [facility] [address] [place] [address] Dr. Marvin Reis MCH 27.2 pg Normal 25.9-34.0 [facility] Comment on above: Performed By: #### U RCX #### [facility] [address] [place] [address] Dr. Marvin Reis MCHC 32.5 g/dl Normal 29.9-35.2 [facility] Comment on above: Performed By: #### U RCX #### [facility] [address] [address] [address] Marvin Reis MCV 83.5 fL Normal 80.0-94.0 [facility] Comment on above: Performed By: #### U RCX #### [facility] [address] [place] [address] Dr. Marvin Reis METAMYELOCYTE # Normal [facility] Comment on above: Performed By: #### U RCX #### [facility] [address] [place] [address] Dr. Marvin Reis METAMYELOCYTE % Normal [facility] Comment on above: Performed By: #### U RCX #### [facility] [address] [place] [address] Dr. Marvin Reis MONOM# 0.39 103/ul Normal 0.30-0.80 [facility] Comment on above: Performed By: #### U RCX #### [facility] [address] [place] [address] Dr. Marvin Reis MONOM% 3.0 % Normal 1.7-12.0 [facility] Comment on above: Performed By: #### U RCX #### [facility] [address] [place] [address] Dr. Marvin Reis MPV 10.5 fL Normal 9.5-13.5 [facility] Comment on above: Performed By: #### U RCX #### [facility] [address] [place] [address] Dr. Marvin Reis MYELOCYTE # Normal [facility] Comment on above: Performed By: #### U RCX #### [facility] [address] [place] [address] Dr. Marvin Reis MYELOCYTE % Normal [facility] Comment on above: Performed By: #### U RCX #### [facility] [address] [address] [address] Marvin Reis NRBC Normal [facility] Comment on above: Performed By: #### U RCX #### [facility] [address] [address] [address] Marvin Reis PLT 96 103/ul Critically low 150-450 [facility] Comment on above: Performed By: #### U RCX #### [facility] [address] [address] [address] Marvin Reis RBC 4.01 106/ul Critically low 4.70-6.10 [facility] Comment on above: Performed By: #### U RCX #### [facility] [address] [address] [address] Marvin Reis RDW 15.8 % Critically high 11.0-15.0 [facility] Comment on above: Performed By: #### U RCX #### [facility] [address] [address] [address] Marvin Reis SEG # 12.00 103/ul Critically high 1.40-6.50 [facility] Comment on above: Performed By: #### U RCX #### [facility] [address] [address] [address] Mravin Reis SEG % 93.0 % Critically high 43.0-75.0 [facility] Comment on above: Performed By: #### U RCX #### [facility] [address] [address] [address] Marvin Reis WBC 12.9 103/ul Critically high 4.0-11.0 [facility] Comment on above: Performed By: #### U RCX #### [facility] [address] [address] [address] Marvin Reis CRPon 09-24-2022 CRP 8.4 mg/dL Critically high <=1.0 [facility] Comment on above: Performed By: #### U AMIC #### [facility] [address] [address] [address] Marvin Reis LACTATE/LACTIC ACIDon 2021 Lactate [Moles/Vol] 2.2 mmol/L Critically high 0.4-1.9 [facility] Comment on above: Performed By: #### L ACT #### [facility] [address] [address] [address] Marvin Reis PROF 14(COMP METB)on 022 Albumin [Mass/Vol] 2.8 g/dL Critically low 3.4-5.0 [facility] Comment on above: Performed By: #### U AMIC #### [facility] [address] [place] [address] Dr. Marvin Reis Albumin/Globulin [Mass ratio] 0.7 {ratio} Normal [facility] Comment on above: Performed By: #### U AMIC #### [facility] [address] [place] [address] Dr. Marvin Reis ALP [Catalytic activity/Vol] 80 U/L Normal 46-116 [facility] Comment on above: Performed By: #### U AMIC #### [facility] [address] [place] [address] Dr. aMrvin Reis ALT [Catalytic activity/Vol] 20 U/L Normal 16-63 [facility] Comment on above: Performed By: #### U AMIC #### [facility] [address] [place] [address] Dr. Marvin Reis Anion gap [Moles/Vol] 12.3 mmol/L Normal [facility] Comment on above: Performed By: #### U AMIC #### [facility] [address] [place] [address] Dr. Marvin Reis AST [Catalytic activity/Vol] 17 U/L Normal 15-37 [facility] Comment on above: Performed By: #### U AMIC #### [facility] [address] [place] [address] Dr. Marvin Reis Bilirubin [Mass/Vol] 1.0 mg/dL Normal 0.2-1.0 [facility] Comment on above: Performed By: #### U AMIC #### [facility] [address] [address] [address] Marvin Reis Calcium [Mass/Vol] 9.0 mg/dL Normal 8.5-10.1 [facility] Comment on above: Performed By: #### U AMIC #### [facility] [address] [address] [address] Marvin Reis Chloride [Moles/Vol] 106 mmol/L Normal 98-107 [facility] Comment on above: Performed By: #### U AMIC #### [facility] [address] [address] [address] Marvin Reis CO2 [Moles/Vol] 25.8 mmol/L Normal 21.0-32.0 [facility] Comment on above: Performed By: #### U AMIC #### [facility] [address] [place] [address] Dr. Marvin Reis Creatinine [Mass/Vol] 1.08 mg/dL Normal 0.70-1.30 [facility] Comment on above: Performed By: #### U AMIC #### [facility] [address] [address] [address] Marvin Reis EGFR-AF [place]IZ[place] >60 Normal >=60 [facility] Comment on above: Performed By: #### U AMIC #### [facility] [address] [address] [address] Marvin Reis EGFR-NON AF CITIZ[place] OF [place] >60 Normal >=60 [facility] Comment on above: Performed By: #### U AMIC #### [facility] [address] [address] [address] Marvin Reis Globulin (S) [Mass/Vol] 3.8 g/dL Normal [facility] Comment on above: Performed By: #### U AMIC #### [facility] [address] [address] [address] Marvin Reis Glucose [Mass/Vol] 117 mg/dL Critically high 74-106 [facility] Comment on above: Performed By: #### U AMIC #### [facility] [address] [address] [address] Marvin Reis Potassium [Moles/Vol] 4.1 mmol/L Normal 3.5-5.1 [facility] Comment on above: Performed By: #### U AMIC #### [facility] [address] [address] [address] Marvin Reis Protein [Mass/Vol] 6.6 g/dL Normal 6.4-8.2 [facility] Comment on above: Performed By: #### U AMIC #### [facility] [address] [address] [address] Marvin Reis Sodium [Moles/Vol] 140 mmol/L Normal 136-145 [facility] Comment on above: Performed By: #### U AMIC #### [facility] [address] [place] [address] Dr. Marvin Reis Urea nitrogen [Mass/Vol] 23.0 mg/dL Critically high 7.0-18.0 [facility] Comment on above: Performed By: #### U AMIC #### [facility] [address] [place] [address] Dr. Marvin Reis Urea nitrogen/Creatinine [Mass ratio] 21.3 mg/mg Normal [facility] Comment on above: Performed By: #### U AMIC #### [facility] [address] [place] [address] Dr. Marvin Reis SED RATE [facility] 2021 SED RATE 51 mm/hr Critically high <=20 [facility] Comment on above: Performed By: #### U RCX #### [facility] [address] [place] [address] Dr. Marvin Reis UA RANDOMon 09-24-2022 Bilirubin Ql (U) Negative Normal NEGATIVE [facility] Comment on above: Performed By: #### U AMIC #### [facility] [address] [place] [address] Dr. Marvin Reis Clarity (U) CLEAR Normal CLEAR [facility] Comment on above: Performed By: #### U AMIC #### [facility] [address] [place] [address] Dr. Marvin Reis Color (U) LT. YELLOW Normal YELLOW [facility] Comment on above: Performed By: #### U AMIC #### [facility] [address] [address] [address] Marvin Reis Glucose Ql (U) Negative Normal NEGATIVE [facility] Comment on above: Performed By: #### U AMIC #### [facility] [address] [address] [address] Marvin Reis Hemoglobin Ql (U) LARGE Abnormal NEGATIVE [facility] Comment on above: Performed By: #### U AMIC #### [facility] [address] [address] [address] Marvin Reis Ketones Ql (U) Negative Normal NEGATIVE [facility] Comment on above: Performed By: #### U AMIC #### [facility] [address] [place] [address] Dr. Marvin Reis LEUKOCYTES MODERATE Abnormal NEGATIVE [facility] Comment on above: Performed By: #### U AMIC #### [facility] [address] [place] [address] Dr. Marvin Reis Nitrite Ql (U) Negative Normal NEGATIVE [facility] Comment on above: Performed By: #### U AMIC #### [facility] [address] [address] [address] Marvin Reis pH (U) 5.5 [pH] Normal 5-9 [facility] Comment on above: Performed By: #### U AMIC #### [facility] [address] [address] [address] Marvin Reis SPEC GRAVITY 1.020 Normal 1.005-<=1.025 [facility] Comment on above: Performed By: #### U AMIC #### [facility] [address] [place] [address] Dr. Marvin Reis UA PROTEIN Negative Normal NEGATIVE/ TRACE [facility] Comment on above: Performed By: #### U AMIC #### [facility] [address] [place] [address] Dr. Marvin Reis Urobilinogen Qn (U) 0.2 {Robbie'U}/dL Normal 0.2 - 1. 0 [facility] Comment on above: Performed By: #### U AMIC #### [facility] [address] [place] [address] Dr. Marvin Reis CULTURE URINEon 09-13-2022 CULTURE [...] F Oxacillin >=4 R F Normal [facility] Comment on above: Performed By: #### U RCX #### [facility] [address] [place] [address] Dr. Marvin Reis UA RANDOM W/MICROSCOPICon BACTERIA TRACE Abnormal NONE SEEN [facility] Comment on above: Performed By: #### U AMIC #### [facility] [address] [place] [address] Dr. Marvin Reis Bilirubin Ql (U) Negative Normal NEGATIVE The [facility] Comment on above: Performed By: #### U AMIC #### [facility] [address] [place] [address] Dr. Marvin Reis CAST NONE SEEN Normal NONE SEEN [facility] Comment on above: Performed By: #### U AMIC #### [facility] [address] [place] [address] Dr. Marvin Reis Clarity (U) CLEAR Normal CLEAR [facility] Comment on above: Performed By: #### U AMIC #### [facility] [address] [place] [address] Dr. Marvin Reis Color (U) LT. YELLOW Normal YELLOW [facility] Comment on above: Performed By: #### U AMIC #### [facility] [address] [address] [address] Marvin Reis Crystals LM Nom (Urine sed) NONE SEEN Normal NONE SEEN [facility] Comment on above: Performed By: #### U AMIC #### [facility] [address] [address] [address] Marvin Reis Epithelial cells LM Ql (Urine sed) FEW Abnormal NONE SEEN /RARE [facility] Comment on above: Performed By: #### U AMIC #### [facility] [address] [address] [address] Marvin Reis Glucose Ql (U) Negative Normal NEGATIVE The [facility] Comment on above: Performed By: #### U AMIC #### [facility] [address] [address] [address] Marvin Reis Hemoglobin Ql (U) Negative Normal NEGATIVE The [facility] Comment on above: Performed By: #### U AMIC #### [facility] [address] [address] [address] Marvin Reis Ketones Ql (U) Negative Normal NEGATIVE The [facility] Comment on above: Performed By: #### U AMIC #### [facility] [address] [address] [address] Marvin Reis LEUKOCYTES LARGE Abnormal NEGATIVE [facility] Comment on above: Performed By: #### U AMIC #### [facility] [address] [address] [address] Marvin Reis MUCOUS NONE SEEN Normal NONE SEEN [facility] Comment on above: Performed By: #### U AMIC #### [facility] [address] [address] [address] Marvin Reis Nitrite Ql (U) Negative Normal NEGATIVE [facility] Comment on above: Performed By: #### U AMIC #### [facility] [address] [address] [address] Marvin Reis pH (U) 5.5 [pH] Normal 5-9 [facility] Comment on above: Performed By: #### U AMIC #### [facility] [address] [address] [address] Marvin Reis RBC 0-2 Normal 0-2 [facility] Comment on above: Performed By: #### U AMIC #### [facility] [address] [place] [address] Dr. Marvin Reis SPEC GRAVITY 1.025 Normal 1.005-<=1.025 [facility] Comment on above: Performed By: #### U AMIC #### [facility] [address] [place] [address] Dr. Marvin Reis UA PROTEIN Negative Normal NEGATIVE/ TRACE [facility] Comment on above: Performed By: #### U AMIC #### [facility] [address] [place] [address] Dr. Marvin Reis Urobilinogen Qn (U) 0.2 {Robbie'U}/dL Normal 0.2 - 1. 0 [facility] Comment on above: Performed By: #### U AMIC #### [facility] [address] [place] [address] Dr. Marvin Reis WBC 10-20 Abnormal NONE SEEN [facility] Comment on above: Performed By: #### U AMIC #### [facility] [address] [place] [address] Dr. Marvin Reis CULTURE URINEon 08-17-2022 CULTURE [...] Trimethoprim/Sulfamet hoxazole <=20 S F Normal [facility] Comment on above: Performed By: #### U RCX #### [facility] [address] [place] [address] Dr. Marvin Reis UA RANDOM W/MICROSCOPICon 10 -13-2022 BACTERIA MODERATE Abnormal NONE SEEN [facility] Comment on above: Performed By: #### U RCX #### [facility] [address] [address] [address] Marvin Reis Bilirubin Ql (U) Negative Normal NEGATIVE The [facility] Comment on above: Performed By: #### U RCX #### [facility] [address] [place] [address] Dr. Marvin Reis CAST NONE SEEN Normal NONE SEEN [facility] Comment on above: Performed By: #### U RCX #### [facility] [address] [address] [address] Marvin Reis Clarity (U) SL CLOUDY Abnormal CLEAR [facility] Comment on above: Performed By: #### U RCX #### [facility] [address] [place] [address] Dr. Marvin Reis Color (U) LT. YELLOW Normal YELLOW [facility] Comment on above: Performed By: #### U RCX #### [facility] [address] [address] [address] Marvin Reis Crystals LM Nom (Urine sed) NONE SEEN Normal NONE SEEN [facility] Comment on above: Performed By: #### U RCX #### [facility] [address] [place] [address] Dr. Marvin Reis Epithelial cells LM Ql (Urine sed) RARE Normal NONE SEEN /RARE [facility] Comment on above: Performed By: #### U RCX #### [facility] [address] [place] [address] Dr. Marvin Reis Glucose Ql (U) Negative Normal NEGATIVE [facility] Comment on above: Performed By: #### U RCX #### [facility] [address] [address] [address] Marvin Reis Hemoglobin Ql (U) SMALL Abnormal NEGATIVE The [facility] Comment on above: Performed By: #### U RCX #### [facility] [address] [place] [address] Dr. Marvin Reis Ketones Ql (U) Negative Normal NEGATIVE [facility] Comment on above: Performed By: #### U RCX #### [facility] [address] [address] [address] Marvin Reis LEUKOCYTES MODERATE Abnormal NEGATIVE [facility] Comment on above: Performed By: #### U RCX #### [facility] [address] [place] [address] Dr. Marvin Reis MUCOUS NONE SEEN Normal NONE SEEN [facility] Comment on above: Performed By: #### U RCX #### [facility] [address] [address] [address] Marvin Reis Nitrite Ql (U) Positive Abnormal NEGATIVE [facility] Comment on above: Performed By: #### U RCX #### [facility] [address] [place] [address] Dr. Marvin Reis pH (U) 6.0 [pH] Normal 5-9 [facility] Comment on above: Performed By: #### U RCX #### [facility] [address] [place] [address] Dr. Marvin Reis RBC 0-2 Normal 0-2 [facility] Comment on above: Performed By: #### U RCX #### [facility] [address] [address] [address] Marvin Reis SPEC GRAVITY 1.015 Normal 1.005-<=1.025 [facility] Comment on above: Performed By: #### U RCX #### [facility] [address] [place] [address] Dr. Marvin Reis UA PROTEIN Negative Normal NEGATIVE/ TRACE [facility] Comment on above: Performed By: #### U RCX #### [facility] [address] [place] [address] Dr. Marvin Reis Urobilinogen Qn (U) 0.2 {Robbie'U}/dL Normal 0.2 - 1. 0 [facility] Comment on above: Performed By: #### U RCX #### [facility] [address] [place] [address] Dr. Marvin Reis WBC 10-20 Abnormal NONE SEEN [facility] Comment on above: Performed By: #### U RCX #### [facility] [address] [place] [address] Dr. Marvin Reis CULTURE URINEon 08-02-2022 CULTURE [...] Trimethoprim/Sulfamet hoxazole <=20 S F Normal [facility] Comment on above: Performed By: #### U RCX #### [facility] [address] [place] [address] Dr. Marvin Reis UA RANDOM W/MICROSCOPICon BACTERIA MODERATE Abnormal NONE SEEN [facility] Comment on above: Performed By: #### U AMIC #### [facility] [address] [place] [address] Dr. Marvin Reis Bilirubin Ql (U) Negative Normal NEGATIVE [facility] Comment on above: Performed By: #### U AMIC #### [facility] [address] [place] [address] Dr. Marvin Reis CAST NONE SEEN Normal NONE SEEN [facility] Comment on above: Performed By: #### U AMIC #### [facility] [address] [place] [address] Dr. Marvin Reis Clarity (U) SL CLOUDY Abnormal CLEAR [facility] Comment on above: Performed By: #### U AMIC #### [facility] [address] [place] [address] Dr. Marvin Reis Color (U) LT. YELLOW Normal YELLOW [facility] Comment on above: Performed By: #### U AMIC #### [facility] [address] [place] [address] Dr. Marvin Reis Crystals LM Nom (Urine sed) NONE SEEN Normal NONE SEEN [facility] Comment on above: Performed By: #### U AMIC #### [facility] [address] [address] [address] Marvin Reis Epithelial cells LM Ql (Urine sed) NONE SEEN Normal NONE SEEN /RARE [facility] Comment on above: Performed By: #### U AMIC #### [facility] [address] [address] [address] Marvin Reis Glucose Ql (U) Negative Normal NEGATIVE [facility] Comment on above: Performed By: #### U AMIC #### [facility] [address] [address] [address] Marvin Reis Hemoglobin Ql (U) TRACE-INTACT Abnormal NEGATIVE [facility] Comment on above: Performed By: #### U AMIC #### [facility] [address] [place] [address] Dr. Marvin Reis Ketones Ql (U) Negative Normal NEGATIVE [facility] Comment on above: Performed By: #### U AMIC #### [facility] [address] [address] [address] Marvin Reis LEUKOCYTES MODERATE Abnormal NEGATIVE [facility] Comment on above: Performed By: #### U AMIC #### [facility] [address] [address] [address] Marvin Reis MUCOUS NONE SEEN Normal NONE SEEN [facility] Comment on above: Performed By: #### U AMIC #### [facility] [address] [address] [address] Marvin Reis Nitrite Ql (U) Positive Abnormal NEGATIVE [facility] Comment on above: Performed By: #### U AMIC #### [facility] [address] [address] [address] Marvin Reis pH (U) 6.0 [pH] Normal 5-9 [facility] Comment on above: Performed By: #### U AMIC #### [facility] [address] [address] [address] Marvin Reis RBC 0-2 Normal 0-2 [facility] Comment on above: Performed By: #### U AMIC #### [facility] [address] [place] [address] Dr. Marvin Reis SPEC GRAVITY 1.015 Normal 1.005-<=1.025 [facility] Comment on above: Performed By: #### U AMIC #### [facility] [address] [place] [address] Dr. Marvin Reis UA PROTEIN Negative Normal NEGATIVE/ TRACE [facility] Comment on above: Performed By: #### U AMIC #### [facility] [address] [place] [address] Dr. Marvin Reis Urobilinogen Qn (U) 0.2 {Robbie'U}/dL Normal 0.2 - 1. 0 [facility] Comment on above: Performed By: #### U AMIC #### [facility] [address] [place] [address] Dr. Marvin Reis WBC 20-50 Abnormal NONE SEEN [facility] Comment on above: Performed By: #### U AMIC #### [facility] [address] [place] [address] Dr. Marvin Reis CULTURE URINEon 06-27-2022 CULTURE [...] F Oxacillin >=4 R F Normal [facility] Comment on above: Performed By: #### U AMIC #### [facility] [address] [place] [address] Dr. Marvin Reis UA RANDOM W/MICROSCOPICon BACTERIA LARGE Abnormal NONE SEEN [facility] Comment on above: Performed By: #### U RCX #### [facility] [address] [address] [address] Marvin Reis Bilirubin Ql (U) Negative Normal NEGATIVE [facility] Comment on above: Performed By: #### U RCX #### [facility] [address] [address] [address] Marvin Reis CAST NONE SEEN Normal NONE SEEN [facility] Comment on above: Performed By: #### U RCX #### [facility] [address] [address] [address] Marvin Reis Clarity (U) CLEAR Normal CLEAR [facility] Comment on above: Performed By: #### U RCX #### [facility] [address] [place] [address] Dr. Marvin Reis Color (U) LT. YELLOW Normal YELLOW [facility] Comment on above: Performed By: #### U RCX #### [facility] [address] [place] [address] Dr. Marvin Reis Crystals LM Nom (Urine sed) NONE SEEN Normal NONE SEEN [facility] Comment on above: Performed By: #### U RCX #### [facility] [address] [address] [address] Marvin Reis Epithelial cells LM Ql (Urine sed) FEW Abnormal NONE SEEN /RARE [facility] Comment on above: Performed By: #### U RCX #### [facility] [address] [place] [address] Dr. Marvin Reis Glucose Ql (U) Negative Normal NEGATIVE [facility] Comment on above: Performed By: #### U RCX #### [facility] [address] [address] [address] Marvin Reis Hemoglobin Ql (U) TRACE-INTACT Abnormal NEGATIVE [facility] Comment on above: Performed By: #### U RCX #### [facility] [address] [place] [address] Dr. Marivn Reis Ketones Ql (U) Negative Normal NEGATIVE [facility] Comment on above: Performed By: #### U RCX #### [facility] [address] [address] [address] Marvin Reis LEUKOCYTES LARGE Abnormal NEGATIVE [facility] Comment on above: Performed By: #### U RCX #### [facility] [address] [place] [address] Dr. Marvin Reis MUCOUS NONE SEEN Normal NONE SEEN [facility] Comment on above: Performed By: #### U RCX #### [facility] [address] [place] [address] Dr. Marvin Reis Nitrite Ql (U) Positive Abnormal NEGATIVE [facility] Comment on above: Performed By: #### U RCX #### [facility] [address] [place] [address] Dr. Marvin Reis pH (U) 5.5 [pH] Normal 5-9 [facility] Comment on above: Performed By: #### U RCX #### [facility] [address] [place] [address] Dr. Marvin Reis RBC 2-5 Abnormal 0-2 [facility] Comment on above: Performed By: #### U RCX #### [facility] [address] [place] [address] Dr. Marvin Reis SPEC GRAVITY 1.015 Normal 1.005-<=1.025 [facility] Comment on above: Performed By: #### U RCX #### [facility] [address] [place] [address] Dr. Marvin Reis UA PROTEIN Negative Normal NEGATIVE/ TRACE [facility] Comment on above: Performed By: #### U RCX #### [facility] [address] [place] [address] Dr. Marvin Reis Urobilinogen Qn (U) 0.2 {Robbie'U}/dL Normal 0.2 - 1. 0 [facility] Comment on above: Performed By: #### U RCX #### [facility] [address] [place] [address] Dr. Marvin Reis WBC (U) [#/Vol] /uL Abnormal NONE SEEN [facility] Comment on above: Performed By: #### U RCX #### [facility] [address] [place] [address] Dr. Marvin Reis CULTURE URINEon 05-27-2022 CULTURE [...] F Oxacillin >=4 R F Normal [facility] Comment on above: Performed By: #### U RCX #### [facility] [address] [place] [address] Dr. Marvin Reis UA RANDOM W/MICROSCOPICon BACTERIA MODERATE Abnormal NONE SEEN [facility] Comment on above: Performed By: #### U RCX #### [facility] [address] [place] [address] Dr. Marvin Reis Bilirubin Ql (U) Negative Normal NEGATIVE [facility] Comment on above: Performed By: #### U RCX #### [facility] [address] [place] [address] Dr. Marvin Reis CAST NONE SEEN Normal NONE SEEN [facility] Comment on above: Performed By: #### U RCX #### [facility] [address] [place] [address] Dr. Marvin Reis Clarity (U) SL CLOUDY Abnormal CLEAR [facility] Comment on above: Performed By: #### U RCX #### [facility] [address] [place] [address] Dr. Marvin Reis Color (U) LT. YELLOW Normal YELLOW [facility] Comment on above: Performed By: #### U RCX #### [facility] [address] [place] [address] Dr. Marvin Reis Crystals LM Nom (Urine sed) NONE SEEN Normal NONE SEEN [facility] Comment on above: Performed By: #### U RCX #### [facility] [address] [address] [address] Marvin Reis Epithelial cells LM Ql (Urine sed) FEW Abnormal NONE SEEN /RARE [facility] Comment on above: Performed By: #### U RCX #### [facility] [address] [address] [address] Marvin Reis Glucose Ql (U) Negative Normal NEGATIVE [facility] Comment on above: Performed By: #### U RCX #### [facility] [address] [address] [address] Marvin Reis Hemoglobin Ql (U) SMALL Abnormal NEGATIVE [facility] Comment on above: Performed By: #### U RCX #### [facility] [address] [place] [address] Dr. Marvin Reis Ketones Ql (U) Negative Normal NEGATIVE [facility] Comment on above: Performed By: #### U RCX #### [facility] [address] [address] [address] Marvin Reis LEUKOCYTES LARGE Abnormal NEGATIVE [facility] Comment on above: Performed By: #### U RCX #### [facility] [address] [address] [address] Marvin Reis MUCOUS TRACE Abnormal NONE SEEN [facility] Comment on above: Performed By: #### U RCX #### [facility] [address] [address] [address] Marvin Reis Nitrite Ql (U) Negative Normal NEGATIVE [facility] Comment on above: Performed By: #### U RCX #### [facility] [address] [address] [address] Marvin Reis pH (U) 6.0 [pH] Normal 5-9 [facility] Comment on above: Performed By: #### U RCX #### [facility] [address] [address] [address] Marvin Reis RBC 2-5 Abnormal 0-2 [facility] Comment on above: Performed By: #### U RCX #### [facility] [address] [address] [address] Marvin Reis SPEC GRAVITY 1.010 Normal 1.005-<=1.025 [facility] Comment on above: Performed By: #### U RCX #### [facility] [address] [address] [address] Marvin eRis UA PROTEIN Negative Normal NEGATIVE/ TRACE [facility] Comment on above: Performed By: #### U RCX #### [facility] [address] [address] [address] Marvin Reis Urobilinogen Qn (U) 0.2 {Robbie'U}/dL Normal 0.2 - 1. 0 [facility] Comment on above: Performed By: #### U RCX #### [facility] [address] [place] [address] Dr. Marvin Reis WBC 50-75 Abnormal NONE SEEN [facility] Comment on above: Performed By: #### U RCX #### [facility] [address] [place] [address] Dr. Marvin Reis CULTURE URINEon 04-18-2022 CULTURE [...] F Oxacillin >=4 R F Normal [facility] Comment on above: Performed By: #### U RCX #### [facility] [address] [address] [address] Marvin Reis UA RANDOM W/MICROSCOPICon BACTERIA TRACE Abnormal NONE SEEN [facility] Comment on above: Performed By: #### U AMIC #### [facility] [address] [address] [address] Marvin Reis Bilirubin Ql (U) Negative Normal NEGATIVE [facility] Comment on above: Performed By: #### U AMIC #### [facility] [address] [address] [address] Marvin Reis CAST NONE SEEN Normal NONE SEEN [facility] Comment on above: Performed By: #### U AMIC #### [facility] [address] [address] [address] Marvin Reis Clarity (U) CLEAR Normal CLEAR [facility] Comment on above: Performed By: #### U AMIC #### [facility] [address] [address] [address] Marvin Reis Color (U) LT. YELLOW Normal YELLOW [facility] Comment on above: Performed By: #### U AMIC #### [facility] [address] [address] [address] Marvin Reis Crystals LM Nom (Urine sed) NONE SEEN Normal NONE SEEN [facility] Comment on above: Performed By: #### U AMIC #### [facility] [address] [address] [address] Marvin Reis Epithelial cells LM Ql (Urine sed) FEW Abnormal NONE SEEN /RARE [facility] Comment on above: Performed By: #### U AMIC #### [facility] [address] [address] [address] Marvin Reis Glucose Ql (U) Negative Normal NEGATIVE [facility] Comment on above: Performed By: #### U AMIC #### [facility] [address] [address] [address] Marvin Reis Hemoglobin Ql (U) TRACE-INTACT Abnormal NEGATIVE [facility] Comment on above: Performed By: #### U AMIC #### [facility] [address] [address] [address] Marvin Reis Ketones Ql (U) Negative Normal NEGATIVE [facility] Comment on above: Performed By: #### U AMIC #### [facility] [address] [place] [address] Dr. Marvin Reis LEUKOCYTES SMALL Abnormal NEGATIVE [facility] Comment on above: Performed By: #### U AMIC #### [facility] [address] [place] [address] Dr. Marvin Reis MUCOUS NONE SEEN Normal NONE SEEN [facility] Comment on above: Performed By: #### U AMIC #### [facility] [address] [place] [address] Dr. Marvin Reis Nitrite Ql (U) Negative Normal NEGATIVE [facility] Comment on above: Performed By: #### U AMIC #### [facility] [address] [place] [address] Dr. Marvin Reis pH (U) 6.0 [pH] Normal 5-9 [facility] Comment on above: Performed By: #### U AMIC #### [facility] [address] [place] [address] Dr. Marvin Reis RBC 0-2 Normal 0-2 [facility] Comment on above: Performed By: #### U AMIC #### [facility] [address] [place] [address] Dr. Marvin Reis SPEC GRAVITY 1.010 Normal 1.005-<=1.025 [facility] Comment on above: Performed By: #### U AMIC #### [facility] [address] [place] [address] Dr. Marvin Reis UA PROTEIN Negative Normal NEGATIVE/ TRACE [facility] Comment on above: Performed By: #### U AMIC #### [facility] [address] [place] [address] Dr. Marvin Reis Urobilinogen Qn (U) 0.2 {Robbie'U}/dL Normal 0.2 - 1. 0 [facility] Comment on above: Performed By: #### U AMIC #### [facility] [address] [place] [address] Dr. Marvin Reis WBC 2-5 Abnormal NONE SEEN [facility] Comment on above: Performed By: #### U AMIC #### [facility] [address] [place] [address] Dr. Marvin Reis CULTURE URINEon 03-27-2022 CULTURE [...] Trimethoprim/Sulfamet hoxazole >=320 R F Normal The [facility] Comment on above: Performed By: #### U RCX #### [facility] [address] [place] [address] Dr. Marvin Reis UA RANDOM W/MICROSCOPICon BACTERIA TRACE Abnormal NONE SEEN [facility] Comment on above: Performed By: #### U RCX #### [facility] [address] [place] [address] Dr. Marvin Reis Bilirubin Ql (U) Negative Normal NEGATIVE The [facility] Comment on above: Performed By: #### U RCX #### [facility] [address] [place] [address] Dr. Marvin Reis CAST NONE SEEN Normal NONE SEEN [facility] Comment on above: Performed By: #### U RCX #### [facility] [address] [place] [address] Dr. Marvin Reis Clarity (U) CLEAR Normal CLEAR [facility] Comment on above: Performed By: #### U RCX #### [facility] [address] [address] [address] Marvin Reis Color (U) LT. YELLOW Normal YELLOW [facility] Comment on above: Performed By: #### U RCX #### [facility] [address] [place] [address] Dr. Marvin Resi Crystals LM Nom (Urine sed) NONE SEEN Normal NONE SEEN [facility] Comment on above: Performed By: #### U RCX #### [facility] [address] [address] [address] Marvin Reis Epithelial cells LM Ql (Urine sed) FEW Abnormal NONE SEEN /RARE [facility] Comment on above: Performed By: #### U RCX #### [facility] [address] [place] [address] Dr. Marvin Reis Glucose Ql (U) Negative Normal NEGATIVE [facility] Comment on above: Performed By: #### U RCX #### [facility] [address] [place] [address] Dr. Marvin Reis Hemoglobin Ql (U) SMALL Abnormal NEGATIVE [facility] Comment on above: Performed By: #### U RCX #### [facility] [address] [place] [address] Dr. Marvin Reis Ketones Ql (U) Negative Normal NEGATIVE [facility] Comment on above: Performed By: #### U RCX #### [facility] [address] [place] [address] Dr. Marvin Reis LEUKOCYTES MODERATE Abnormal NEGATIVE [facility] Comment on above: Performed By: #### U RCX #### [facility] [address] [place] [address] Dr. Marvin Reis MUCOUS NONE SEEN Normal NONE SEEN [facility] Comment on above: Performed By: #### U RCX #### [facility] [address] [place] [address] Dr. Marvin Reis Nitrite Ql (U) Negative Normal NEGATIVE [facility] Comment on above: Performed By: #### U RCX #### [facility] [address] [place] [address] Dr. Marvin Reis pH (U) 5.5 [pH] Normal 5-9 [facility] Comment on above: Performed By: #### U RCX #### [facility] [address] [place] [address] Dr. Marvin Reis RBC NONE SEEN Abnormal 0-2 [facility] Comment on above: Performed By: #### U RCX #### [facility] [address] [place] [address] Dr. Marvin Reis SPEC GRAVITY 1.015 Normal 1.005-<=1.025 [facility] Comment on above: Performed By: #### U RCX #### [facility] [address] [place] [address] Dr. Marvin Reis UA PROTEIN Negative Normal NEGATIVE/ TRACE [facility] Comment on above: Performed By: #### U RCX #### [facility] [address] [place] [address] Dr. Marvin Reis Urobilinogen Qn (U) 0.2 {Robbie'U}/dL Normal 0.2 - 1. 0 [facility] Comment on above: Performed By: #### U RCX #### [facility] [address] [place] [address] Dr. Marvin Reis WBC 20-50 Abnormal NONE SEEN [facility] Comment on above: Performed By: #### U RCX #### [facility] [address] [place] [address] Dr. Marvin Reis YEAST PRESENT Abnormal NONE SEEN [facility] Comment on above: Performed By: #### U RCX #### [facility] [address] [place] [address] Dr. Marvin Reis CULTURE URINEon 03-18-2022 CULTURE URINE Culture Observations : No growth Normal [facility] Comment on above: Performed By: #### U RCX #### [facility] [address] [place] [address] Dr. Marvin Reis UA RANDOM W/MICROSCOPICon BACTERIA NONE SEEN Normal NONE SEEN [facility] Comment on above: Performed By: #### U AMIC #### [facility] [address] [address] [address] Marvin Reis Bilirubin Ql (U) Negative Normal NEGATIVE [facility] Comment on above: Performed By: #### U AMIC #### [facility] [address] [address] [address] Marvin Reis CAST NONE SEEN Normal NONE SEEN [facility] Comment on above: Performed By: #### U AMIC #### [facility] [address] [place] [address] Dr. Marvin Reis Clarity (U) CLOUDY Abnormal CLEAR [facility] Comment on above: Performed By: #### U AMIC #### [facility] [address] [address] [address] Marvin Reis Color (U) LT. YELLOW Normal YELLOW [facility] Comment on above: Performed By: #### U AMIC #### [facility] [address] [place] [address] Dr. Marvin eRis Crystals LM Nom (Urine sed) NONE SEEN Normal NONE SEEN [facility] Comment on above: Performed By: #### U AMIC #### [facility] [address] [place] [address] Dr. Marvin Reis Epithelial cells LM Ql (Urine sed) RARE Normal NONE SEEN /RARE [facility] Comment on above: Performed By: #### U AMIC #### [facility] [address] [place] [address] Dr. Marvin Reis Glucose Ql (U) Negative Normal NEGATIVE [facility] Comment on above: Performed By: #### U AMIC #### [facility] [address] [place] [address] Dr. Marvin Reis Hemoglobin Ql (U) TRACE-INTACT Abnormal NEGATIVE [facility] Comment on above: Performed By: #### U AMIC #### [facility] [address] [place] [address] Dr. Marvin Reis Ketones Ql (U) Negative Normal NEGATIVE [facility] Comment on above: Performed By: #### U AMIC #### [facility] [address] [place] [address] Dr. Marvin Reis LEUKOCYTES MODERATE Abnormal NEGATIVE [facility] Comment on above: Performed By: #### U AMIC #### [facility] [address] [address] [address] Marvin Reis MUCOUS NONE SEEN Normal NONE SEEN [facility] Comment on above: Performed By: #### U AMIC #### [facility] [address] [address] [address] Marvin Reis Nitrite Ql (U) Negative Normal NEGATIVE [facility] Comment on above: Performed By: #### U AMIC #### [facility] [address] [address] [address] Marvin Reis pH (U) 6.0 [pH] Normal 5-9 [facility] Comment on above: Performed By: #### U AMIC #### [facility] [address] [place] [address] Dr. Marvin Reis RBC NONE SEEN Abnormal 0-2 [facility] Comment on above: Performed By: #### U AMIC #### [facility] [address] [place] [address] Dr. Marvin Reis SPEC GRAVITY 1.015 Normal 1.005-<=1.025 [facility] Comment on above: Performed By: #### U AMIC #### [facility] [address] [address] [address] Marvin Reis UA PROTEIN Negative Normal NEGATIVE/ TRACE [facility] Comment on above: Performed By: #### U AMIC #### [facility] [address] [address] [address] Marvin Reis Urobilinogen Qn (U) 0.2 {Robbie'U}/dL Normal 0.2 - 1. 0 [facility] Comment on above: Performed By: #### U AMIC #### [facility] [address] [place] [address] Dr. Marvin Reis WBC 10-20 Abnormal NONE SEEN [facility] Comment on above: Performed By: #### U AMIC #### [facility] [address] [place] [address] Dr. Marvin Reis Coding Summary.on 06-21-2020 Coding Summary. CODING DATE: 06/21/2020 FINAL [facility] STATUS: PAYOR: Worker's Compensation ADMIT [...] Hopper CphT Date Saved: 06/21/2020 12:01 pm [facility] PT - Assessmentson 0 PT - Assessments [id number]# 1.00CD:127 [facility] PT - Orderson 06-20-2020 PT - Orders [id number]# 1.00CD:127 [facility] PT - Workers Compon 06-20-20 20 PT - Workers Comp [id number]# 1.00CD:127 [facility] Encounters Encounter Date Encounter Type Care Provider Facility Start: 03-10-2023 End: 03-11-20[facility] Start: 03-03-2023 End: 03-03-2023 ambulatory [...] Facility:[facility] Payers Date Payer Category Payer Medicare [id number] 1961 Unknown [id number] 1960 Unknown [id number] 2.16.84 [id number] 1960 Unknown [id number] 2.16.84 0.1.175477.3.579.2.593 1960 Unknown [id number] 2.16.84 0.1.214451.3.579.2.593 1958 Unknown [id number] 2.16.84 0.1.731051.3.579.2.593 1958 Unknown [id number] 2.16.84 0.1.662613.3.579.2.593 1958 Unknown [id number] 2.16.84 0.1.831464.3.579.2.593 1958 Unknown [id number] 2.16.84 0.1.925558.3.579.2.593 1958 Unknown [id number] 2.16.84 0.1.534976.3.579.2.593 1958 Unknown [id number] 2.16.84 0.1.252948.3.579.2.593 1958 Unknown [id number] 2.16.84 0.1.095651.3.579.2.593 1958 Unknown [id number] 2.16.84 0.1.025725.3.579.2.593 1958 Unknown [id number] 2.16.84 0.1.234249.3.579.2.593 1958 Unknown [id number] 2.16.84 0.1.967281.3.579.2.593 1958 Unknown [id number] 2.16.84 0.1.259383.3.579.2.593 1958 Unknown [id number] 2.16.84 0.1.334657.3.579.2.593 1958 Unknown [id number] 2.16.84 0.1.942284.3.579.2.593 1958 Unknown [id number] 2.16.84 0.1.669216.3.579.2.593 1958 Unknown [id number] 2.16.84 0.1.432081.3.579.2.593 1958 Unknown [id number] 2.16.84 0.1.197082.3.579.2.593 Summary Purpose Family History No Family History [...] and content) DATE CREATED AUTHOR 09/19/2020 [facility] DATE CREATED AUTHOR AUTHOR'S ORGANIZ ATION 03/06/2023 [facility] DATE CREATED AUTHOR AUTHOR'S ORGANIZ ATION 03/11/2023 [facility] DATE CREATED AUTHOR AUTHOR'S ORGANIZ ATION 06/07/2023 [facility] FOR RECORDS PERTAINING TO PATIENTS WHO [...] BE BASED ON THE PRIMARY CLINICAL RECORDS. [employer] [facility]. provides no warranty or guarantee of the accuracy or completeness of information in this document.
[2024-08-18 22:16] LABS: PCO2 VBG 34.5 mmHg (40.0-52.0); pH VBG 7.122 (7.330-7.430)
[2024-08-18 22:40] LABS: Lactate/Lactic Acid 0.7 mmol/L (0.4-2.0)
[2024-08-18 22:45] LABS: Thyroid Stimulating Hormone 2.756 uIU/mL (0.358-3.740)
[2024-08-18] MEDS: LACTATED RINGER'S SOLUTION 1,000 ML 150 ML IV (22:49)
[2024-08-18] MEDS: PANTOPRAZOLE SODIUM 40 MG VIAL IV (22:50)
[2024-08-18] MEDS: PROSTAT 15 GM PROTEIN/100 CAL 30 ML LIQUID PACKET PO (22:50)
[2024-08-18 22:51] LABS: Phosphorus 8.4 mg/dL (2.6-4.7)
[2024-08-18] MEDS: L. ACIDOPHILUS/L.BULGARICUS 1 PACKET GRAN.PACK PO (22:51)
[2024-08-18] MEDS: ENSURE HP 237 ML LIQUID PO (22:51)
[2024-08-18] MEDS: NOREPINEPHRINE BITARTRATE/D5W 4 MG/250 ML PREMIX 7.5 MG IV (22:52)
[2024-08-18] MEDS: LEVOFLOXACIN IN DEXTROSE 5 % 750 MG/150 ML PREMIX 100 MG IV (23:05)
[2024-08-18] MEDS: ALBUMIN HUMAN 25 GM/100 ML PREMIX IV (23:05)
[2024-08-18] MEDS: LINEZOLID IN DEXTROSE 5% 600 MG/300 ML PIGGYBACK 300 MG IV (23:18)
[2024-08-18] MEDS: GABAPENTIN 300 MG CAPSULE PO (23:35)
[2024-08-19] VITALS (137 sets, daily range): BP systolic 50–172; BP diastolic 23–87; PULSE 80–105; TEMP 35.3–37.2; O2SAT 74–99
[2024-08-19] MEDS: ALBUMIN HUMAN 25 GM/100 ML PREMIX IV (00:10)
[2024-08-19] MEDS: CEFTAZIDIME 1,000 MG in 0.9 % SODIUM CHLORIDE 50 ML 100 MG IV ×2 (02:20→22:24)
--- NOTE | 2024-08-19 03:30 | PHOTOS ---
Addendum entered by Gisselle Alvarez 08/19/24 03:52: Right and left leg also, buttocks Original Note:
--- NOTE | 2024-08-19 03:36 | PHOTOS ---
Addendum entered by Gisselle Alvarez 08/19/24 03:50: right lateral chest Original Note:
[2024-08-19 05:36] LABS: Mean Corpuscular HGB Conc 28.1 g/dL (29.9-35.2); Mean Corpuscular Hemoglobin 26.4 pg (25.9-34.0); Mean Corpuscular Volume 93.9 fL (80.0-94.0); Mean Platelet Volume 11.2 fL (9.5-13.5); Platelet Count 123 10^3/uL (150-450); Red Blood Count 2.31 10^6/uL (4.70-6.10); Red Cell Distribution Width 17.7 % (11.0-15.0); White Blood Count 10.5 10^3/uL (4.0-11.0)
[2024-08-19 05:45] LABS: Hematocrit 21.7 % (42.0-54.0); Hemoglobin 6.1 g/dL (14.0-18.0)
--- NOTE | 2024-08-19 05:47 | P.PN_ITS ---
Progress Note: Subjective Subjective Interval history: Patient is much more awake today than when he was when I saw him in the emergency room. Denies any chills anymore. Pain level is improving, in the past his pain level elevation was consistent with his degree of infection Exam Constitutional Vital Signs, click to edit/add: Last Vital Signs Temp 95.5 F L 08/19/24 04:00 Pulse 89 08/19/24 04:00 Resp 18 08/19/24 04:00 BP 111/57 08/19/24 04:00 Pulse Ox 97 08/19/24 04:00 O2 Del Method Room Air 08/19/24 02:00 Documenting provider has reviewed patient's vital signs: yes Common normals: no apparent distress (moderate to at times severe distress due to pain) Exam limitations: no altered mental status (but slow in mentation) HENMT Common normals: head/scalp atraumatic Mouth: tongue not normal (dry) Chest Common normals: inspection of chest normal Respiratory Common normals: normal respiratory effort Auscultation: diminished lung sounds Cardio Common normals: irregular rate Rate: tachycardic Neuro Common normals: CN's II-XII intact bilaterally Sensorium/orientation: awake and alert (but slow in mentation) Motor exam: abnormal strength (some movement of arms, no movement of legs - his baseline) Progress Note: Objective Labs Labs: Short CBC 08/18/24 08/19/24 Range/Units 17:17 05:18 WBC 7.6 10.5 (4.0-11.0) 10^3/uL Hgb 6.2 L* 6.1 L* (14.0-18.0) g/dL Hct 22.0 L* 21.7 L* (42.0-54.0) % Plt Count 90 L 123 L (150-450) 10^3/uL BMP 08/18/24 17:17 Sodium 140 Potassium 5.0 Chloride 113 H Carbon Dioxide 12.0 L BUN 91.0 H* Creatinine 4.82 H Glucose 107 H Calcium 8.4 L Liver Function 08/18/24 Range/Units 17:17 Total Bilirubin 0.2 (0.2-1.0) mg/dL AST 11 L (15-37) U/L ALT <6 L (16-63) U/L Alkaline Phosphatase 81 (46-116) U/L Albumin 1.8 L (3.4-5.0) g/dL Urine 08/18/24 Range/Units 18:40 Urine Color Lt. yellow (YELLOW) Urine Clarity Clear (CLEAR) Urine pH 6.0 (5.0-9.0) Ur Specific [place] 1.020 (1.005-1.025) Urine Protein >=300 A (NEG/TRACE) mg/dL Urine Glucose (UA) Negative (NEGATIVE) mg/dL Progress Note: A&P Assessment and Plan (1) Weakness: (2) Acute renal failure: (3) Dehydration: (4) Anemia requiring transfusions: (5) Sepsis associated hypotension: (6) Multisystem organ failure: (7) Altered mental status: (8) Chronic complete quadriplegia: (9) Thrombocytopenia: (10) Acute anemia: (11) Sinus tachycardia: (12) Hypotension: (13) Coagulopathy: (14) Hyperchloremic metabolic acidosis: (15) Severe protein-calorie malnutrition: Plan Admission assessment: AMS, Hypotension, tachycardia, resp distress, hyperchloremic metabolic acidosis resulting in sepsis with multisystem organ dysfunctiuon. (AMS, Renal failure, cardiac). Infectious source likely urine Sepsis with MSOD: IV AB, blood cx, urine cx, Fluid boluses, PRN levophed, albumin for BP support , consider steroids. Based on previous culture results, and resistance patter of the ecoli and pseudomonas, dora start with levofloxacin and fortaz. due to severity of illness and hx of MRSA, adding linezolid- maintain this previous plan. To continue with fluid resuscitation. He did end up with significant hypotension requiring Levophed. Fluid bolus and blood given this am. Will try to wean that today. hypothermia persisting. Is somewhat better this morning. Hypothermia, with quadriplegia.-Treatment as outlined above Acute blood loss anemia - type, cross and transfuse 2 U PBRC, IV protonix-should get his transfusion today, he had antibiotics. Will check CBC posttransfusion. Coagulopathy - due to the above- repeat labs, not severe - holding on ffp-no source of active bleeding. His coagulopathy is slightly worse today. Severe hypotension due to the above - see above Quadriplegia - cont with home PT regime Elevated BNP =- checking echo - possible cardiomyopathy due to sepsis Hyperphosphatemia-improved Hyperchloremic metabolic acidosis-deteriorated this morning, will try bicarb push and follow serial pHs. Considerations for bicarb drip. Severe protein calorie malnutrition with significant low albumin-was given 1 dose of albumin last night, considerations for repeating Thrombocytopenia due to bone marrow suppression due to sepsis - monitor daily Admission Status: Sepsis with MSOD due to urinary tract infection with hs of infection from mrsa, and recently pseudomonas and ecoli. Medically neccessary treatment in the ICU will span two midnights. Inpatient status ? Urinary Catheter Management Urinary Catheter Management Straight: Cath placed during this visit: yes Urethral indwelling: Yes Reason for continuing: measure accurate output Insertion date: 08/19/24 Insertion time: 00:00 Urethral: Cath placed during this visit: yes Urethral indwelling: Yes Reason for continuing: measure accurate output Insertion date: 08/19/24 Insertion time: 00:00
[2024-08-19 06:04] LABS: Alanine Aminotransferase <6 U/L (16-63); Albumin Globulin Ratio 0.7; Albumin Level 2.4 g/dL (3.4-5.0); Alkaline Phosphatase 71 U/L (46-116); Aspartate Amino Transferase 9 U/L (15-37); BUN Creatinine Ratio 18.6; Bilirubin Total 0.4 mg/dL (0.2-1.0); Calcium 8.1 mg/dL (8.5-10.1); Carbon Dioxide 10.9 mmol/L (21.0-32.0); Chloride 112 mmol/L (98-107); Estimated GFR (African America 16 (>=60 mL/min/1.73m^2); Estimated GFR (Non-African Ame 13 (>=60 mL/min/1.73m^2); Globulin 3.6 g/dL; Glucose 116 mg/dL (74-106); Potassium 4.9 mmol/L (3.5-5.1); Sodium 140 mmol/L (136-145)
[2024-08-19 06:10] LABS: INR 1.26; Prothrombin Time 13.1 sec (9.0-11.6)
[2024-08-19 06:17] LABS: Phosphorus 7.7 mg/dL (2.6-4.7)
[2024-08-19 06:18] LABS: Partial Thromboplastin Time 42.1 sec (22.3-36.2)
[2024-08-19] MEDS: LACTATED RINGER'S SOLUTION 1,000 ML 1000 ML IV ×2 (06:25→13:32)
[2024-08-19 06:55] LABS: Lymphocytes Absolute Manual 0.73 10^3/uL (1.20-3.80); Monocytes Absolute Manual 1.15 10^3/uL (0.30-0.80); Segmented Neut Absolute Manual 8.61 10^3/uL (1.4-6.5)
[2024-08-19 06:57] LABS: Hypochromasia 1+; Ovalocytes 1+
[2024-08-19] MEDS: SODIUM BICARBONATE 8.4 % 50 MEQ/50 ML SYRINGE IV ×2 (07:20→11:26)
--- NOTE | 2024-08-19 07:30 | CA_ITS ---
Patient Name: JESSICA PIZARRO MR#: [id number] : 1960 Exam Date: 08/19/2024 Ordering Doctor: DR Jona Mckeon . ECHOCARDIOGRAM REPORT PROCEDURE: CA ECHO DOPPLER COMPLETE INDICATIONS: Dyspnea, sepsis, quadraplegic COMPARISON: None. DESCRIPTION: COMPLETE ECHOCARDIOGRAM Real-time transthoracic echocardiography with 2D, M-mode, spectral and color flow Doppler performed. QUALITY: Technical quality was good. LEFT VENTRICLE: Normal chamber size. Thickened septal wall. Normal systolic function. LV EF: Normal left ventricular ejection fraction, (>55%). DIASTOLIC: Normal diastolic function. ATRIAL SEPTUM: LEFT ATRIUM: Normal chamber size. RIGHT ATRIUM: Normal chamber size. 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 RIGHT VENTRICLE: Normal chamber size. Normal right ventricular systolic function. TRICUSPID VALVE: Normal mobility and thickness. No stenosis with trivial regurgitation. MITRAL VALVE: Normal mobility and thickness. No evidence of mitral valve stenosis. There is no mitral annular calcification. No mitral regurgitation. AORTIC VALVE: Normal trileaflet appearance. No visible sclerosis. Normal leaflet mobility. No evidence of aortic valve stenosis. No aortic regurgitation. AORTIC ROOT: Normal diameter and appearance. Ascending aorta is normal in size. PULMONIC VALVE: Normal thickness and mobility. No stenosis. No regurgitation. PERICARDIUM: No evidence of pericardial effusion. IVC: Unable to attempt due to patient's condition. PLEURA: CONCLUSION: 1. The left ventricular is normal in size and exhibits normal systolic function. LVEF is 55 to 60%. 2. Normal right ventricular size and systolic function. 3. No significant valvular dysfunction. 4. Normal diastolic function. 5. 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 Adult Echocardiography Procedure Report Left Ventricle LVEDD (3.7 - 5.6 cm): 3.84 cm LVESD (2.2 - 4.0 cm): 2.53 cm LVIVS thickness (0.6 - 1.2 cm): 1.29 cm LVPW thickness (0.5 - 1.0 cm): 0.90 cm e': 0.11 m/s E - e': 8.56 LVOT Max Gradient: 3.91 mm[Hg] LVOT Area (cm2): 0.99 m/s Peak Velocity (LVOT): 0.99 m/s LVOT Diameter 2.38 cm Left Atrium Left Atrium Systolic Dimension: 3.62 cm Mitral Valve MV E to A Ratio: 0.91 Mitral Valve A-Wave Peak Velocity: 1.02 m/s Mitral Valve E-Wave Peak Velocity: 0.93 m/s Right Ventricle Aorta AO Root Diam: 3.74 cm Ascending Ao Diam: 3.39 cm Aortic Valve AoV Area (Peak Reza): 2.94 cm2, 2.94 cm2 Peak Velocity(Antegrade Flow): 1.49 m/s Peak Gradient(Antegrade Flow): 8.88 mm[Hg] Tricuspid Valve Pulmonic Valve Mean Gradient: 2.84 mm[Hg] Mean Velocity: 0.79 m/s Peak Velocity: 1.19 m/s, 1.09 m/s Peak Gradient: 4.76 mm[Hg], 5.66 mm[Hg] Right Atrium Right Atrium Systolic Pressure: 37.15 ml, 37.15 ml Dictated by: Mando Pemberton M.D. on 08/19/2024 at 16:56 Approved by: Mando Pemberton M.D. on 08/19/2024 at 17:04
[2024-08-19] MEDS: LACTATED RINGER'S SOLUTION 1,000 ML 150 ML IV ×3 (08:33→21:18)
[2024-08-19] MEDS: PROSTAT 15 GM PROTEIN/100 CAL 30 ML LIQUID PACKET PO ×2 (08:33→21:17)
[2024-08-19] MEDS: L. ACIDOPHILUS/L.BULGARICUS 1 PACKET GRAN.PACK PO ×2 (08:33→21:17)
[2024-08-19] MEDS: LINEZOLID IN DEXTROSE 5% 600 MG/300 ML PIGGYBACK 250 MG IV (08:34)
[2024-08-19] MEDS: PREGABALIN 100 MG CAPSULE PO (08:34)
[2024-08-19] MEDS: ENSURE HP 237 ML LIQUID PO (08:34)
--- NOTE | 2024-08-19 08:50 | CM.NOTE ---
Rounds made with Dr. Mckeon, discussed with pt PRBC transfusion today and continue IV antibiotics. Continue close monitoring.
[2024-08-19 09:32] LABS: PCO2 VBG 32.8 mmHg (40.0-52.0); pH VBG 7.162 (7.330-7.430)
[2024-08-19] MEDS: FENTANYL 50 MCG/HR PATCH.TD72 100 MCG TD (10:31)
[2024-08-19] MEDS: NOREPINEPHRINE BITARTRATE/D5W 4 MG/250 ML PREMIX 22.5 MG IV (10:48)
--- NOTE | 2024-08-19 10:49 | SWNOTE1 ---
SW spoke with case management and pt's takes care of pt at home. PT/OT will assess.
--- NOTE | 2024-08-19 11:53 | SWNOTE1 ---
SW spoke with case management and she spoke with /patient. See case management note. Pt's does the care for patient at home. has had issues ever since covid has ended to get help in the home. Can't get any HH due to it being under worker's comp. At this time no further discharge needs at this time.
[2024-08-19] MEDS: ONDANSETRON PF 4 MG/2 ML VIAL IV (11:59)
[2024-08-19 14:34] LABS: PCO2 VBG 26.9 mmHg (40.0-52.0); pH VBG 7.252 (7.330-7.430)
[2024-08-19 14:35] LABS: Basophils Absolute Auto 0.1 10^3/uL (0.0-0.1); Basophils Percent Auto 0.4 % (0.2-2.0); Eosinophils Absolute Auto 0.1 10^3/uL (0.0-0.7); Hematocrit 27.7 % (42.0-54.0); Hemoglobin 8.2 g/dL (14.0-18.0); Immature Granulocytes Abs Auto 0.55 10^3/uL (0.00-0.03); Immature Granulocytes Pct Auto 4.6 % (0.0-0.5); Lymphocytes Absolute Auto 0.6 10^3/uL (1.2-3.8); Lymphocytes Percent Auto 4.8 % (20.5-60.0); Mean Corpuscular HGB Conc 29.6 g/dL (29.9-35.2); Mean Corpuscular Hemoglobin 27.6 pg (25.9-34.0); Mean Corpuscular Volume 93.3 fL (80.0-94.0); Mean Platelet Volume 11.1 fL (9.5-13.5); Monocytes Absolute Auto 1.1 10^3/uL (0.3-0.8); Monocytes Percent Auto 9.6 % (1.7-12.0); Neutrophils Absolute Auto 9.5 10^3/uL (1.4-6.5); Neutrophils Percent Auto 79.6 % (43.0-75.0); Platelet Count 109 10^3/uL (150-450); Red Blood Count 2.97 10^6/uL (4.70-6.10); Red Cell Distribution Width 16.7 % (11.0-15.0); White Blood Count 11.9 10^3/uL (4.0-11.0)
[2024-08-19 14:56] LABS: Anion Gap 23.3; BUN Creatinine Ratio 18.8; Calcium 7.6 mg/dL (8.5-10.1); Carbon Dioxide 9.7 mmol/L (21.0-32.0); Chloride 113 mmol/L (98-107); Estimated GFR (African America 18 (>=60 mL/min/1.73m^2); Estimated GFR (Non-African Ame 15 (>=60 mL/min/1.73m^2); Glucose 104 mg/dL (74-106); Sodium 141 mmol/L (136-145)
--- NOTE | 2024-08-19 15:04 | W.PM.WC_ITS ---
Wound Consult Note Assessment and Plan (1) Weakness: (2) Acute renal failure: (3) Dehydration: (4) Anemia requiring transfusions: (5) Sepsis associated hypotension: (6) Multisystem organ failure: (7) Altered mental status: (8) Chronic complete quadriplegia: (9) Thrombocytopenia: (10) Acute anemia: (11) Sinus tachycardia: (12) Hypotension: (13) Coagulopathy: (14) Hyperchloremic metabolic acidosis: (15) Severe protein-calorie malnutrition: Plan Consult: Multiple ulcerations Patient seen today for multiple ulcerations. Patient is a complete quadriplegic with ulcerations to buttocks, right flank, right lower leg, bilateral heels. Right flank ulceration is the result of a heating pad from home. Caregiver in room states it does look better. She has been using silvadene cream to the area. The ulcer is covered with adherent black eschar. [id number]. No drainage noted. No signs of infection. Patient has multiple open areas to right buttock. Moisture, shear, and pressure components noted. Overall this area measures [id number]. Area covered with silicone border dressing. Right lower leg with edema, rubor with cobblestone appearance. Open ulceration is superficial, pink, draining serous fluid. Measures [id number]. No signs of infection. Applied adaptic and ABD pad at this time. Will order xeroform gauze. Left lower leg with edema, rubor, and cobblestone appearance as well however skin is intact. Left posterior heel with noted unstageable pressure ulcer. Caregiver states treating area with calcium alginate. Patient has heel protectors at home that he wears. Heel ulcer is covered with a combination of moist white/yellow slough, iverson slough/eschar. Distal area of ulceration is soft. No signs of infection or odor. Area measures [id number]. I do not see bone but when probed, applicator does stop at a hard surface. Discussed with Dr. Jacome, he will see patient in the morning. Right heel is almost resolved. New epithelialized tissue noted. Patient has seen [facility] in the past, however, due to changing of staffing, they may be switching to [facility]. Discussed changing treatment of left heel and right flank to santyl ointment. Caregiver states this has never been ordered in the past. Explained how ointment works. Will order while in hospital. Photos taken prior to assessment today by floor staff. Orders placed in chart. Recommendations: Santyl ointment to right flank and left heel ulcerations daily. Nickel thick layer to wound bed. Xeroform gauze to right lower leg ulcer Silicone border dressing to cover open ulcerations to right buttocks Reposition frequently Float heels off bed Please call [phone] for any questions or concerns. Dejuan Reyes RN, CWON
[2024-08-19] MEDS: COLLAGENASE CLOSTRIDIUM HIST. 250 UNITS/GM 30 GRAM TUBE 1 APPLIC TOPICAL (16:58)
[2024-08-19] MEDS: PANTOPRAZOLE SODIUM 40 MG VIAL IV (21:17)
[2024-08-19] MEDS: LINEZOLID IN DEXTROSE 5% 600 MG/300 ML PIGGYBACK 300 MG IV (21:18)
[2024-08-19] MEDS: TIZANIDINE HCL 4 MG TABLET 3 MG PO (21:20)
[2024-08-19] MEDS: GABAPENTIN 300 MG CAPSULE PO (21:20)
[2024-08-19 22:47] LABS: Internal Control Within Normal Limits; Occult Blood Positive
[2024-08-20] VITALS (37 sets, daily range): BP systolic 83–172; BP diastolic 45–85; PULSE 83–92; TEMP 36.8–37; O2SAT 87–95
[2024-08-20] MEDS: LACTATED RINGER'S SOLUTION 1,000 ML 150 ML IV ×2 (04:00→10:26)
[2024-08-20 05:34] LABS: Basophils Percent Auto 0.1 % (0.2-2.0); Eosinophils Absolute Auto 0.1 10^3/uL (0.0-0.7); Eosinophils Percent Auto 1.2 % (0.9-7.0); Hematocrit 25.1 % (42.0-54.0); Hemoglobin 7.5 g/dL (14.0-18.0); Immature Granulocytes Abs Auto 0.26 10^3/uL (0.00-0.03); Immature Granulocytes Pct Auto 2.9 % (0.0-0.5); Lymphocytes Absolute Auto 0.7 10^3/uL (1.2-3.8); Lymphocytes Percent Auto 7.6 % (20.5-60.0); Mean Corpuscular HGB Conc 29.9 g/dL (29.9-35.2); Mean Corpuscular Hemoglobin 27.5 pg (25.9-34.0); Mean Corpuscular Volume 91.9 fL (80.0-94.0); Monocytes Absolute Auto 0.9 10^3/uL (0.3-0.8); Monocytes Percent Auto 10.5 % (1.7-12.0); Neutrophils Percent Auto 77.7 % (43.0-75.0); Platelet Count 100 10^3/uL (150-450); Red Blood Count 2.73 10^6/uL (4.70-6.10); Red Cell Distribution Width 17.2 % (11.0-15.0)
[2024-08-20 05:41] LABS: pH VBG 7.161 (7.330-7.430)
[2024-08-20 05:42] LABS: PCO2 VBG 41.4 mmHg (40.0-52.0)
--- NOTE | 2024-08-20 05:55 | P.PN_ITS ---
Progress Note: Subjective Subjective Interval history: Patient is much more awake today than when he was when I saw him in the emergency room. Denies any chills anymore. Pain level is improving, in the past his pain level elevation was consistent with his degree of infection Exam Constitutional Vital Signs, click to edit/add: Last Vital Signs Temp 98.4 F 08/20/24 04:00 Pulse 89 08/20/24 04:00 Resp 16 08/20/24 04:00 BP 92/45 L 08/20/24 04:00 Pulse Ox 95 08/20/24 04:00 O2 Del Method Nasal Cannula 08/20/24 04:00 O2 Flow Rate 1 08/20/24 04:00 Progress Note: Objective Labs Labs: Short CBC 08/19/24 08/20/24 Range/Units 14:27 05:15 WBC 11.9 H 9.0 (4.0-11.0) 10^3/uL Hgb 8.2 L 7.5 L (14.0-18.0) g/dL Hct 27.7 L 25.1 L (42.0-54.0) % Plt Count 109 L 100 L (150-450) 10^3/uL BMP 08/19/24 08/19/24 05:18 14:27 Sodium 140 141 Potassium 4.9 5.0 Chloride 112 H 113 H Carbon Dioxide 10.9 L 9.7 L BUN 86.0 H* 78.0 H* Creatinine 4.62 H 4.15 H Glucose 116 H 104 Calcium 8.1 L 7.6 L Liver Function 08/19/24 Range/Units 05:18 Total Bilirubin 0.4 (0.2-1.0) mg/dL AST 9 L (15-37) U/L ALT <6 L (16-63) U/L Alkaline Phosphatase 71 (46-116) U/L Albumin 2.4 L (3.4-5.0) g/dL Progress Note: A&P Assessment and Plan (1) Weakness: (2) Acute renal failure: (3) Dehydration: (4) Anemia requiring transfusions: (5) Sepsis associated hypotension: (6) Multisystem organ failure: (7) Altered mental status: (8) Chronic complete quadriplegia: (9) Thrombocytopenia: (10) Acute anemia: (11) Sinus tachycardia: (12) Hypotension: (13) Coagulopathy: (14) Hyperchloremic metabolic acidosis: (15) Severe protein-calorie malnutrition: Plan Admission assessment: AMS, Hypotension, tachycardia, resp distress, hyperchloremic metabolic acidosis resulting in sepsis with multisystem organ dysfunctiuon. (AMS, Renal failure, cardiac). Infectious source likely urine Sepsis with MSOD: IV AB, blood cx, urine cx, Fluid boluses, PRN levophed, albumin for BP support , consider steroids. Based on previous culture results, and resistance patter of the ecoli and pseudomonas, dora start with levofloxacin and fortaz. due to severity of illness and hx of MRSA, adding linezolid- maintain this previous plan. To continue with fluid resuscitation. He did end up with significant hypotension requiring Levophed. Fluid bolus and blood given this am. Will try to wean that today. hypothermia persisting. Is somewhat better this morning. Hypothermia, with quadriplegia.-Treatment as outlined above Acute blood loss anemia - type, cross and transfuse 2 U PBRC, IV protonix-should get his transfusion today, he had antibiotics. Will check CBC posttransfusion. Coagulopathy - due to the above- repeat labs, not severe - holding on ffp-no source of active bleeding. His coagulopathy is slightly worse today. Severe hypotension due to the above - see above Quadriplegia - cont with home PT regime Elevated BNP =- checking echo - possible cardiomyopathy due to sepsis Hyperphosphatemia-improved Hyperchloremic metabolic acidosis-deteriorated this morning, will try bicarb push and follow serial pHs. Considerations for bicarb drip. Severe protein calorie malnutrition with significant low albumin-was given 1 dose of albumin last night, considerations for repeating Thrombocytopenia due to bone marrow suppression due to sepsis - monitor daily Admission Status: Sepsis with MSOD due to urinary tract infection with hs of infection from mrsa, and recently pseudomonas and ecoli. Medically neccessary treatment in the ICU will span two midnights. Inpatient status ? Urinary Catheter Management Urinary Catheter Management Straight: Cath placed during this visit: yes Urethral indwelling: Yes Insertion date: 08/19/24 Insertion time: 00:00 Urethral: Cath placed during this visit: yes Urethral indwelling: Yes Insertion date: 08/19/24 Insertion time: 00:00
[2024-08-20 06:02] LABS: Alanine Aminotransferase <6 U/L (16-63); Albumin Globulin Ratio 0.6; Albumin Level 1.7 g/dL (3.4-5.0); Alkaline Phosphatase 65 U/L (46-116); Anion Gap 16.9; Aspartate Amino Transferase 8 U/L (15-37); BUN Creatinine Ratio 18.4; Bilirubin Total 0.4 mg/dL (0.2-1.0); Calcium 7.9 mg/dL (8.5-10.1); Carbon Dioxide 15.9 mmol/L (21.0-32.0); Chloride 114 mmol/L (98-107); Estimated GFR (African America 17 (>=60 mL/min/1.73m^2); Estimated GFR (Non-African Ame 14 (>=60 mL/min/1.73m^2); Globulin 2.9 g/dL; Glucose 92 mg/dL (74-106); Potassium 4.8 mmol/L (3.5-5.1); Sodium 142 mmol/L (136-145); Total Protein 4.6 g/dL (6.4-8.2)
[2024-08-20 06:16] LABS: Phosphorus 6.7 mg/dL (2.6-4.7)
--- OUTSIDE RECORDS SUMMARY | 2024-08-20 07:31 | XMS_ITS | CCD ---
Author Organization [facility] Team Providers Care C D Area Supervisor Name Role Phone HOY ., DR [...] Unavailable HOY ., DR WEBBER Admherman Unavailable WYMORE, DR MAGY [employer] Unavailable HOY ., [...] source) ceFAZolin Drug Allergy 04-21-20 13 [facility] Repository (1 source) Cilastatin / Imipenem Drug Allergy 04-21-20 13 [facility] Repository (1 source) Readi-Cat Drug allergy (disorder) 04-21-20 13 [facility] Repository (1 source) ceFAZolin; Translations: [CEFAZOLIN] Drug Allergy 12-01-19 13 [facility] Repository (1 source) Cephalexin; Translations: [CEPHALEXIN MONOHYDRATE] Drug Allergy 08-03-20 09 [facility] Repository (1 source) Promazine; Translations: [PROMAZINE] Drug Allergy 12-01-19 13 [facility] Repository (1 source) Sulfamethoxazole / Trimethoprim; Translations: [SULFAMETHOXAZOLE-TR IMETHOPRIM] Drug Allergy 03-10-20 23 [facility] Repository (1 source) IODINATED CONTRAST MEDIA; Translations: [IODINATED CONTRAST MEDIA] Propensity to adverse reactions to drug (disorder) 12-01-19 13 [facility] Repository Problems Active Problems Problem [...] RESISTANT TO ALL B-LACTAM DRUGS. PERFORMED BY: [place] [address] PATHOLOGIST AIRCRAFT MANAGER MARLA VEGA M.D. [facility] Comment on above: Performed By: #### A MAI LAYNE #### [place] [id number] [place] Gram Stainon 06-03-2023 Microscopic observation Gram stain Nom (Unsp spec) Gram Stain Result No Bacteria Seen PERFORMED BY: [place] [address] PATHOLOGIST AIRCRAFT MANAGER MARLA VEGA M.D. [facility] Comment on above: Performed By: #### A MAI LAYNE #### [place] [id number] [place] CULTURE URINEon 03-06-2023 CULTURE URINE Isolate [...] F Levofloxacin 2 S F Normal [facility] Comment on above: Performed By: #### U RCX #### [facility] [address] [place] [address] Dr. Marvin Reis UA RANDOM W/MICROSCOPICon BACTERIA SMALL Abnormal NONE SEEN [facility] Comment on above: Performed By: #### U AMIC #### [facility] [address] [place] [address] Dr. Marvin Reis Bilirubin Ql (U) Negative Normal NEGATIVE [facility] Comment on above: Performed By: #### U AMIC #### [facility] [address] [place] [address] Dr. Marvin Reis CAST NONE SEEN Normal NONE SEEN [facility] Comment on above: Performed By: #### U AMIC #### [facility] [address] [place] [address] Dr. Marvin Reis Clarity (U) CLEAR Normal CLEAR [facility] Comment on above: Performed By: #### U AMIC #### [facility] [address] [place] [address] Dr. Marvin Reis Color (U) LT. YELLOW Normal YELLOW [facility] Comment on above: Performed By: #### U AMIC #### [facility] [address] [address] [address] Marvin Reis Crystals LM Nom (Urine sed) NONE SEEN Normal NONE SEEN [facility] Comment on above: Performed By: #### U AMIC #### [facility] [address] [place] [address] Dr. Marvin Reis Epithelial cells LM Ql (Urine sed) RARE Normal NONE SEEN /RARE [facility] Comment on above: Performed By: #### U AMIC #### [facility] [address] [address] [address] Marvin Reis Glucose Ql (U) Negative Normal NEGATIVE [facility] Comment on above: Performed By: #### U AMIC #### [facility] [address] [place] [address] Dr. Marvin Reis Hemoglobin Ql (U) Negative Normal NEGATIVE [facility] Comment on above: Performed By: #### U AMIC #### [facility] [address] [place] [address] Dr. Marvin Reis Ketones Ql (U) Negative Normal NEGATIVE [facility] Comment on above: Performed By: #### U AMIC #### [facility] [address] [place] [address] Dr. Marvin Reis LEUKOCYTES SMALL Abnormal NEGATIVE [facility] Comment on above: Performed By: #### U AMIC #### [facility] [address] [place] [address] Dr. Marvin Reis MUCOUS NONE SEEN Normal NONE SEEN [facility] Comment on above: Performed By: #### U AMIC #### [facility] [address] [place] [address] Dr. Marvin Reis Nitrite Ql (U) Negative Normal NEGATIVE [facility] Comment on above: Performed By: #### U AMIC #### [facility] [address] [place] [address] Dr. Marvin Reis pH (U) 6.0 [pH] Normal 5-9 [facility] Comment on above: Performed By: #### U AMIC #### [facility] [address] [place] [address] Dr. Marvin Reis RBC 0-2 Normal 0-2 [facility] Comment on above: Performed By: #### U AMIC #### [facility] [address] [place] [address] Dr. Marvin Reis SPEC GRAVITY 1.010 Normal 1.005-<=1.025 [facility] Comment on above: Performed By: #### U AMIC #### [facility] [address] [address] [address] Marvin Reis UA PROTEIN Negative Normal NEGATIVE/ TRACE [facility] Comment on above: Performed By: #### U AMIC #### [facility] [address] [place] [address] Dr. Marvin Reis Urobilinogen Qn (U) 0.2 {Robbie'U}/dL Normal 0.2 - 1. 0 [facility] Comment on above: Performed By: #### U AMIC #### [facility] [address] [place] [address] Dr. Marvin Reis WBC 5-10 Abnormal NONE SEEN [facility] Comment on above: Performed By: #### U AMIC #### [facility] [address] [place] [address] Dr. Marvin Reis CULTURE URINEon 02-13-2023 CULTURE [...] F Levofloxacin 2 S F Normal [facility] Comment on above: Performed By: #### U RCX #### [facility] [address] [place] [address] Dr. Marvin Reis UA RANDOM W/MICROSCOPICon BACTERIA MODERATE Abnormal NONE SEEN [facility] Comment on above: Performed By: #### U AMIC #### [facility] [address] [place] [address] Dr. Marvin Reis Bilirubin Ql (U) Negative Normal NEGATIVE [facility] Comment on above: Performed By: #### U AMIC #### [facility] [address] [place] [address] Dr. Marvin Reis CAST NONE SEEN Normal NONE SEEN [facility] Comment on above: Performed By: #### U AMIC #### [facility] [address] [place] [address] Dr. Marvin Reis Clarity (U) CLEAR Normal CLEAR [facility] Comment on above: Performed By: #### U AMIC #### [facility] [address] [place] [address] Dr. Marvin Reis Color (U) LT. YELLOW Normal YELLOW [facility] Comment on above: Performed By: #### U AMIC #### [facility] [address] [place] [address] Dr. Marvin Reis Crystals LM Nom (Urine sed) NONE SEEN Normal NONE SEEN [facility] Comment on above: Performed By: #### U AMIC #### [facility] [address] [place] [address] Dr. Marvin Reis Epithelial cells LM Ql (Urine sed) MODERATE Abnormal NONE SEEN /RARE [facility] Comment on above: Performed By: #### U AMIC #### [facility] [address] [place] [address] Dr. Marvin Reis Glucose Ql (U) Negative Normal NEGATIVE [facility] Comment on above: Performed By: #### U AMIC #### [facility] [address] [place] [address] Dr. Marvin Reis Hemoglobin Ql (U) SMALL Abnormal NEGATIVE [facility] Comment on above: Performed By: #### U AMIC #### [facility] [address] [address] [address] Marvin Reis Ketones Ql (U) Negative Normal NEGATIVE [facility] Comment on above: Performed By: #### U AMIC #### [facility] [address] [address] [address] Marvin Reis LEUKOCYTES LARGE Abnormal NEGATIVE [facility] Comment on above: Performed By: #### U AMIC #### [facility] [address] [address] [address] Marvin Reis MUCOUS NONE SEEN Normal NONE SEEN [facility] Comment on above: Performed By: #### U AMIC #### [facility] [address] [place] [address] Dr. Marvin Reis Nitrite Ql (U) Positive Abnormal NEGATIVE [facility] Comment on above: Performed By: #### U AMIC #### [facility] [address] [address] [address] Marvin Reis pH (U) 5.5 [pH] Normal 5-9 [facility] Comment on above: Performed By: #### U AMIC #### [facility] [address] [address] [address] Marvin Reis RBC 5-10 Abnormal 0-2 [facility] Comment on above: Performed By: #### U AMIC #### [facility] [address] [address] [address] Marvin Reis SPEC GRAVITY 1.015 Normal 1.005-<=1.025 [facility] Comment on above: Performed By: #### U AMIC #### [facility] [address] [address] [address] Marvin Reis UA PROTEIN Negative Normal NEGATIVE/ TRACE [facility] Comment on above: Performed By: #### U AMIC #### [facility] [address] [place] [address] Dr. Marvin Reis Urobilinogen Qn (U) 0.2 {Robbie'U}/dL Normal 0.2 - 1. 0 [facility] Comment on above: Performed By: #### U AMIC #### [facility] [address] [place] [address] Dr. Marvin Reis WBC 50-75 Abnormal NONE SEEN [facility] Comment on above: Performed By: #### U AMIC #### [facility] [id number] Marvin Reis CULTURE URINEon 01-23-2023 CULTURE [...] Trimethoprim/Sulfamet hoxazole <=10 S F Normal [facility] Comment on above: Performed By: #### U AMIC #### [facility] [address] [place] [address] Dr. Marvin Reis UA RANDOM W/MICROSCOPICon BACTERIA TRACE Abnormal NONE SEEN [facility] Comment on above: Performed By: #### U AMIC #### [facility] [address] [place] [address] Dr. Marvin Reis Bilirubin Ql (U) Negative Normal NEGATIVE [facility] Comment on above: Performed By: #### U AMIC #### [facility] [address] [address] [address] Marvin Reis CAST NONE SEEN Normal NONE SEEN [facility] Comment on above: Performed By: #### U AMIC #### [facility] [address] [address] [address] Marvin Reis Clarity (U) SL CLOUDY Abnormal CLEAR [facility] Comment on above: Performed By: #### U AMIC #### [facility] [address] [address] [address] Marvin Reis Color (U) LT. YELLOW Normal YELLOW [facility] Comment on above: Performed By: #### U AMIC #### [facility] [address] [place] [address] Dr. Marvin Reis Crystals LM Nom (Urine sed) NONE SEEN Normal NONE SEEN [facility] Comment on above: Performed By: #### U AMIC #### [facility] [address] [place] [address] Dr. Marvin Reis Epithelial cells LM Ql (Urine sed) NONE SEEN Normal NONE SEEN /RARE [facility] Comment on above: Performed By: #### U AMIC #### [facility] [address] [place] [address] Dr. Marvin Reis Glucose Ql (U) Negative Normal NEGATIVE [facility] Comment on above: Performed By: #### U AMIC #### [facility] [address] [address] [address] Marvin Reis Hemoglobin Ql (U) Negative Normal NEGATIVE [facility] Comment on above: Performed By: #### U AMIC #### [facility] [address] [address] [address] Marvin Reis Ketones Ql (U) Negative Normal NEGATIVE [facility] Comment on above: Performed By: #### U AMIC #### [facility] [address] [place] [address] Dr. Marvin Reis LEUKOCYTES TRACE Abnormal NEGATIVE [facility] Comment on above: Performed By: #### U AMIC #### [facility] [address] [address] [address] Marvin Reis MUCOUS NONE SEEN Normal NONE SEEN [facility] Comment on above: Performed By: #### U AMIC #### [facility] [address] [place] [address] Dr. Marvin Reis Nitrite Ql (U) Negative Normal NEGATIVE [facility] Comment on above: Performed By: #### U AMIC #### [facility] [address] [place] [address] Dr. Marvin Reis pH (U) 6.0 [pH] Normal 5-9 [facility] Comment on above: Performed By: #### U AMIC #### [facility] [address] [place] [address] Dr. Marvin Reis RBC NONE SEEN Abnormal 0-2 [facility] Comment on above: Performed By: #### U AMIC #### [facility] [address] [place] [address] Dr. Marvin Reis SPEC GRAVITY 1.020 Normal 1.005-<=1.025 [facility] Comment on above: Performed By: #### U AMIC #### [facility] [address] [place] [address] Dr. Marvin Reis UA PROTEIN Negative Normal NEGATIVE/ TRACE [facility] Comment on above: Performed By: #### U AMIC #### [facility] [address] [place] [address] Dr. Marvin Reis Urobilinogen Qn (U) 0.2 {Robbie'U}/dL Normal 0.2 - 1. 0 [facility] Comment on above: Performed By: #### U AMIC #### [facility] [address] [place] [address] Dr. Marvin Reis WBC 10-20 Abnormal NONE SEEN [facility] Comment on above: Performed By: #### U AMIC #### [facility] [address] [place] [address] Dr. Marvin Reis CULTURE URINEon 01-07-2023 CULTURE URINE Isolate 1 Dawna albicans 10,000 cfu/mL of Normal [facility] Comment on above: Performed By: #### U RCX #### [facility] [address] [address] [address] Marvin Reis UA RANDOM W/MICROSCOPICon BACTERIA TRACE Abnormal NONE SEEN [facility] Comment on above: Performed By: #### U AMIC #### [facility] [address] [address] [address] Marvin Reis Bilirubin Ql (U) Negative Normal NEGATIVE [facility] Comment on above: Performed By: #### U AMIC #### [facility] [address] [address] [address] Marvin Reis CA OX CRYSTALS RARE Normal [facility] Comment on above: Performed By: #### U AMIC #### [facility] [address] [address] [address] Marvin Reis CAST NONE SEEN Normal NONE SEEN [facility] Comment on above: Performed By: #### U AMIC #### [facility] [address] [address] [address] Marvin Reis Clarity (U) CLEAR Normal CLEAR [facility] Comment on above: Performed By: #### U AMIC #### [facility] [address] [address] [address] Marvin Reis Color (U) LT. YELLOW Normal YELLOW [facility] Comment on above: Performed By: #### U AMIC #### [facility] [address] [address] [address] Marvin Reis Crystals LM Nom (Urine sed) SEEN Abnormal NONE SEEN [facility] Comment on above: Performed By: #### U AMIC #### [facility] [address] [address] [address] Marvin Reis Epithelial cells LM Ql (Urine sed) FEW Abnormal NONE SEEN /RARE [facility] Comment on above: Performed By: #### U AMIC #### [facility] [address] [address] [address] Marvin Reis Glucose Ql (U) Negative Normal NEGATIVE [facility] Comment on above: Performed By: #### U AMIC #### [facility] [address] [address] [address] Marvin Reis Hemoglobin Ql (U) Negative Normal NEGATIVE [facility] Comment on above: Performed By: #### U AMIC #### [facility] [address] [address] [address] Marvin Reis Ketones Ql (U) Negative Normal NEGATIVE [facility] Comment on above: Performed By: #### U AMIC #### [facility] [address] [address] [address] Marvin Reis LEUKOCYTES SMALL Abnormal NEGATIVE [facility] Comment on above: Performed By: #### U AMIC #### [facility] [address] [place] [address] Dr. Marvin Reis MUCOUS NONE SEEN Normal NONE SEEN [facility] Comment on above: Performed By: #### U AMIC #### [facility] [address] [place] [address] Dr. Marvin Reis Nitrite Ql (U) Negative Normal NEGATIVE [facility] Comment on above: Performed By: #### U AMIC #### [facility] [address] [place] [address] Dr. Marvin Reis pH (U) 5.5 [pH] Normal 5-9 [facility] Comment on above: Performed By: #### U AMIC #### [facility] [address] [place] [address] Dr. Marvin Reis RBC 0-2 Normal 0-2 [facility] Comment on above: Performed By: #### U AMIC #### [facility] [address] [place] [address] Dr. Marvin Reis SPEC GRAVITY 1.015 Normal 1.005-<=1.025 [facility] Comment on above: Performed By: #### U AMIC #### [facility] [address] [place] [address] Dr. Marvin Reis UA PROTEIN Negative Normal NEGATIVE/ TRACE [facility] Comment on above: Performed By: #### U AMIC #### [facility] [address] [place] [address] Dr. Marvin Reis Urobilinogen Qn (U) 0.2 {Robbie'U}/dL Normal 0.2 - 1. 0 [facility] Comment on above: Performed By: #### U AMIC #### [facility] [address] [place] [address] Dr. Marvin Reis WBC 50-75 Abnormal NONE SEEN [facility] Comment on above: Performed By: #### U AMIC #### [facility] [address] [place] [address] Dr. Marvin Reis YEAST PRESENT Abnormal NONE SEEN [facility] Comment on above: Performed By: #### U AMIC #### [facility] [address] [place] [address] Dr. Marvin Reis CULTURE URINEon 12-25-2022 CULTURE [...] Trimethoprim/Sulfamet hoxazole >=320 R F Normal [facility] Comment on above: Performed By: #### U RCX #### [facility] [address] [place] [address] Dr. Marvin Reis UA RANDOM W/MICROSCOPICon BACTERIA NONE SEEN Normal NONE SEEN [facility] Comment on above: Performed By: #### U AMIC #### [facility] [address] [place] [address] Dr. Marvin Reis Bilirubin Ql (U) Negative Normal NEGATIVE [facility] Comment on above: Performed By: #### U AMIC #### [facility] [address] [place] [address] Dr. Marvin Reis CAST NONE SEEN Normal NONE SEEN [facility] Comment on above: Performed By: #### U AMIC #### [facility] [address] [place] [address] Dr. Marvin Reis Clarity (U) CLEAR Normal CLEAR [facility] Comment on above: Performed By: #### U AMIC #### [facility] [address] [address] [address] Marvin Reis Color (U) LT. YELLOW Normal YELLOW [facility] Comment on above: Performed By: #### U AMIC #### [facility] [address] [place] [address] Dr. Marvin Reis Crystals LM Nom (Urine sed) NONE SEEN Normal NONE SEEN [facility] Comment on above: Performed By: #### U AMIC #### [facility] [address] [place] [address] Dr. Marvin Reis Epithelial cells LM Ql (Urine sed) RARE Normal NONE SEEN /RARE [facility] Comment on above: Performed By: #### U AMIC #### [facility] [address] [place] [address] Dr. Marvin Reis Glucose Ql (U) Negative Normal NEGATIVE [facility] Comment on above: Performed By: #### U AMIC #### [facility] [address] [place] [address] Dr. Marvin Reis Hemoglobin Ql (U) Negative Normal NEGATIVE [facility] Comment on above: Performed By: #### U AMIC #### [facility] [address] [address] [address] Marvin Reis Ketones Ql (U) Negative Normal NEGATIVE [facility] Comment on above: Performed By: #### U AMIC #### [facility] [address] [place] [address] Dr. Marvin Reis LEUKOCYTES MODERATE Abnormal NEGATIVE [facility] Comment on above: Performed By: #### U AMIC #### [facility] [address] [place] [address] Dr. Marvin Reis MUCOUS NONE SEEN Normal NONE SEEN [facility] Comment on above: Performed By: #### U AMIC #### [facility] [address] [place] [address] Dr. Marvin Reis Nitrite Ql (U) Negative Normal NEGATIVE [facility] Comment on above: Performed By: #### U AMIC #### [facility] [address] [place] [address] Dr. Marvin Reis pH (U) 5.5 [pH] Normal 5-9 [facility] Comment on above: Performed By: #### U AMIC #### [facility] [address] [place] [address] Dr. Marvin Reis RBC NONE SEEN Abnormal 0-2 [facility] Comment on above: Performed By: #### U AMIC #### [facility] [address] [place] [address] Dr. Marvin Reis SPEC GRAVITY 1.015 Normal 1.005-<=1.025 [facility] Comment on above: Performed By: #### U AMIC #### [facility] [address] [place] [address] Dr. Marvin Reis UA PROTEIN Negative Normal NEGATIVE/ TRACE [facility] Comment on above: Performed By: #### U AMIC #### [facility] [address] [place] [address] Dr. Marvin Reis Urobilinogen Qn (U) 0.2 {Robbie'U}/dL Normal 0.2 - 1. 0 [facility] Comment on above: Performed By: #### U AMIC #### [facility] [address] [place] [address] Dr. Marvin Reis WBC 10-20 Abnormal NONE SEEN [facility] Comment on above: Performed By: #### U AMIC #### [facility] [address] [place] [address] Dr. Marvin Reis CULTURE URINEon 12-05-2022 CULTURE [...] Trimethoprim/Sulfamet hoxazole <=20 S F Normal [facility] Comment on above: Performed By: #### U RCX #### [facility] [address] [place] [address] Dr. Marvin Reis CREATININEon 12-03-2022 Creatinine [Mass/Vol] 0.88 mg/dL Normal 0.70-1.30 [facility] Comment on above: Performed By: #### U RCX #### [facility] [address] [place] [address] Dr. Marvin Reis EGFR-AF AZERBAIJANI >60 Normal >=60 [facility] Comment on above: Performed By: #### U RCX #### [facility] [address] [place] [address] Dr. Marvin Reis EGFR-NON AF AZERBAIJANI >60 Normal >=60 [facility] Comment on above: Performed By: #### U RCX #### [facility] [address] [place] [address] ABDOMEN WO/W CONon [...] ELENO PARKER Date: 2022-12-03 14:51 Normal [facility] UA RANDOM W/MICROSCOPICon BACTERIA TRACE Abnormal NONE SEEN [facility] Comment on above: Performed By: #### U RCX #### [facility] [address] [place] [address] Dr. Marvin Reis Bilirubin Ql (U) Negative Normal NEGATIVE [facility] Comment on above: Performed By: #### U RCX #### [facility] [address] [place] [address] Dr. Marvin Reis CAST NONE SEEN Normal NONE SEEN [facility] Comment on above: Performed By: #### U RCX #### [facility] [address] [place] [address] Dr. Marvin Reis Clarity (U) CLEAR Normal CLEAR [facility] Comment on above: Performed By: #### U RCX #### [facility] [address] [place] [address] Dr. Marvin Reis Color (U) LT. YELLOW Normal YELLOW [facility] Comment on above: Performed By: #### U RCX #### [facility] [address] [place] [address] Dr. Marvin Reis Crystals LM Nom (Urine sed) NONE SEEN Normal NONE SEEN [facility] Comment on above: Performed By: #### U RCX #### [facility] [address] [place] [address] Dr. Marvin Reis Epithelial cells LM Ql (Urine sed) RARE Normal NONE SEEN /RARE [facility] Comment on above: Performed By: #### U RCX #### [facility] [address] [address] [address] Marvin Reis Glucose Ql (U) Negative Normal NEGATIVE [facility] Comment on above: Performed By: #### U RCX #### [facility] [address] [address] [address] Marvin Reis Hemoglobin Ql (U) TRACE-INTACT Abnormal NEGATIVE [facility] Comment on above: Performed By: #### U RCX #### [facility] [address] [address] [address] Marvin Reis Ketones Ql (U) Negative Normal NEGATIVE [facility] Comment on above: Performed By: #### U RCX #### [facility] [address] [place] [address] Dr. Marvin Reis LEUKOCYTES TRACE Abnormal NEGATIVE [facility] Comment on above: Performed By: #### U RCX #### [facility] [address] [address] [address] Marvin Reis MUCOUS TRACE Abnormal NONE SEEN [facility] Comment on above: Performed By: #### U RCX #### [facility] [address] [place] [address] Dr. Marvin Reis Nitrite Ql (U) Negative Normal NEGATIVE [facility] Comment on above: Performed By: #### U RCX #### [facility] [address] [address] [address] Marvin Reis pH (U) 5.0 [pH] Normal 5-9 [facility] Comment on above: Performed By: #### U RCX #### [facility] [address] [address] [address] Marvin Reis RBC 0-2 Normal 0-2 [facility] Comment on above: Performed By: #### U RCX #### [facility] [address] [place] [address] Dr. Marvin Reis SPEC GRAVITY 1.010 Normal 1.005-<=1.025 [facility] Comment on above: Performed By: #### U RCX #### [facility] [address] [place], [place] [address] Dr. Marvin Reis UA PROTEIN TRACE Normal NEGATIVE/ TRACE [facility] Comment on above: Performed By: #### U RCX #### [facility] [address] [place], [place] [address] Dr. Marvin Reis Urobilinogen Qn (U) 0.2 {Robbie'U}/dL Normal 0.2 - 1. 0 [facility] Comment on above: Performed By: #### U RCX #### [facility] [address] [address] [address] Marvin Reis WBC 2-5 Abnormal NONE SEEN [facility] Comment on above: Performed By: #### U RCX #### [facility] [address] [address] ABD/PELVIS WO CONon [...] MAGY COMER Date: 2022-11-20 14:51 Normal [facility] CULTURE URINEon 11-11-2022 CULTURE URINE Culture Observations : GUSTABO TO FOLLOW. Isolate 1 Enterobacter aerogenes >100,000 cfu/mL of Normal [facility] Comment on above: Performed By: #### U RCX #### [facility] [address] [place] [address] Dr. Marvin Reis UA RANDOM W/MICROSCOPICon BACTERIA SMALL Abnormal NONE SEEN [facility] Comment on above: Performed By: #### U AMIC #### [facility] [address] [place] [address] Dr. Marvin Reis Bilirubin Ql (U) Negative Normal NEGATIVE [facility] Comment on above: Performed By: #### U AMIC #### [facility] [address] [place] [address] Dr. Marvin Reis CAST NONE SEEN Normal NONE SEEN [facility] Comment on above: Performed By: #### U AMIC #### [facility] [address] [place] [address] Dr. Marvin Reis Clarity (U) CLOUDY Abnormal CLEAR [facility] Comment on above: Performed By: #### U AMIC #### [facility] [address] [place] [address] Dr. Marvin Reis Color (U) LT. YELLOW Normal YELLOW [facility] Comment on above: Performed By: #### U AMIC #### [facility] [address] [address] [address] Marvin Reis Crystals LM Nom (Urine sed) NONE SEEN Normal NONE SEEN [facility] Comment on above: Performed By: #### U AMIC #### [facility] [address] [address] [address] Marvin Reis Epithelial cells LM Ql (Urine sed) NONE SEEN Normal NONE SEEN /RARE [facility] Comment on above: Performed By: #### U AMIC #### [facility] [address] [address] [address] Marvin Reis Glucose Ql (U) Negative Normal NEGATIVE [facility] Comment on above: Performed By: #### U AMIC #### [facility] [address] [place] [address] Dr. Marvin Reis Hemoglobin Ql (U) TRACE-INTACT Abnormal NEGATIVE [facility] Comment on above: Performed By: #### U AMIC #### [facility] [address] [address] [address] Marvin Reis Ketones Ql (U) Negative Normal NEGATIVE [facility] Comment on above: Performed By: #### U AMIC #### [facility] [address] [address] [address] Marvin Reis LEUKOCYTES LARGE Abnormal NEGATIVE [facility] Comment on above: Performed By: #### U AMIC #### [facility] [address] [address] [address] Marvin Reis MUCOUS NONE SEEN Normal NONE SEEN [facility] Comment on above: Performed By: #### U AMIC #### [facility] [address] [place] [address] Dr. Marvin Reis Nitrite Ql (U) Positive Abnormal NEGATIVE [facility] Comment on above: Performed By: #### U AMIC #### [facility] [address] [place] [address] Dr. Marvin Reis pH (U) 5.5 [pH] Normal 5-9 [facility] Comment on above: Performed By: #### U AMIC #### [facility] [address] [place] [address] Dr. Marvin Reis RBC 0-2 Normal 0-2 [facility] Comment on above: Performed By: #### U AMIC #### [facility] [address] [place] [address] Dr. Marvin Reis SPEC GRAVITY 1.015 Normal 1.005-<=1.025 [facility] Comment on above: Performed By: #### U AMIC #### [facility] [address] [place] [address] Dr. Marvin Reis UA PROTEIN Negative Normal NEGATIVE/ TRACE [facility] Comment on above: Performed By: #### U AMIC #### [facility] [address] [place] [address] Dr. Marvin Reis Urobilinogen Qn (U) 0.2 {Robbie'U}/dL Normal 0.2 - 1. 0 [facility] Comment on above: Performed By: #### U AMIC #### [facility] [address] [place] [address] Dr. Marvin Resi WBC 10-20 Abnormal NONE SEEN [facility] Comment on above: Performed By: #### U AMIC #### [facility] [address] [place] [address] Dr. Marvin Reis CULTURE URINEon 10-24-2022 CULTURE [...] Trimethoprim/Sulfamet hoxazole <=20 S F Normal [facility] Comment on above: Performed By: #### U RCX #### [facility] [address] [place] [address] Dr. Marvin Reis UA RANDOM W/MICROSCOPICon BACTERIA LARGE Abnormal NONE SEEN [facility] Comment on above: Performed By: #### U AMIC #### [facility] [address] [address] [address] Marvin Reis Bilirubin Ql (U) Negative Normal NEGATIVE [facility] Comment on above: Performed By: #### U AMIC #### [facility] [address] [address] [address] Marvin Reis CAST NONE SEEN Normal NONE SEEN [facility] Comment on above: Performed By: #### U AMIC #### [facility] [address] [address] [address] Marvin Reis Clarity (U) SL CLOUDY Abnormal CLEAR [facility] Comment on above: Performed By: #### U AMIC #### [facility] [address] [address] [address] Marvin Reis Color (U) YELLOW Normal YELLOW [facility] Comment on above: Performed By: #### U AMIC #### [facility] [address] [address] [address] Marvin Reis Crystals LM Nom (Urine sed) NONE SEEN Normal NONE SEEN [facility] Comment on above: Performed By: #### U AMIC #### [facility] [address] [address] [address] Marvin Reis Epithelial cells LM Ql (Urine sed) FEW Abnormal NONE SEEN /RARE [facility] Comment on above: Performed By: #### U AMIC #### [facility] [address] [address] [address] Marvin Reis Glucose Ql (U) Negative Normal NEGATIVE [facility] Comment on above: Performed By: #### U AMIC #### [facility] [address] [address] [address] Marvin Reis Hemoglobin Ql (U) TRACE-INTACT Abnormal NEGATIVE [facility] Comment on above: Performed By: #### U AMIC #### [facility] [address] [address] [address] Marivn Reis Ketones Ql (U) Negative Normal NEGATIVE [facility] Comment on above: Performed By: #### U AMIC #### [facility] [address] [address] [address] Marvin Reis LEUKOCYTES LARGE Abnormal NEGATIVE [facility] Comment on above: Performed By: #### U AMIC #### [facility] [address] [address] [address] Marvin Reis MUCOUS NONE SEEN Normal NONE SEEN [facility] Comment on above: Performed By: #### U AMIC #### [facility] [address] [address] [address] Marvin Reis Nitrite Ql (U) Negative Normal NEGATIVE [facility] Comment on above: Performed By: #### U AMIC #### [facility] [address] [address] [address] Marvin Reis pH (U) 5.0 [pH] Normal 5-9 [facility] Comment on above: Performed By: #### U AMIC #### [facility] [address] [address] [address] Marvin Reis RBC 5-10 Abnormal 0-2 [facility] Comment on above: Performed By: #### U AMIC #### [facility] [address] [address] [address] Marvin Reis SPEC GRAVITY 1.010 Normal 1.005-<=1.025 [facility] Comment on above: Performed By: #### U AMIC #### [facility] [address] [place] [address] Dr. Marvin Reis UA PROTEIN Negative Normal NEGATIVE/ TRACE [facility] Comment on above: Performed By: #### U AMIC #### [facility] [address] [place] [address] Dr. Marvin Reis Urobilinogen Qn (U) 0.2 {Robbie'U}/dL Normal 0.2 - 1. 0 [facility] Comment on above: Performed By: #### U AMIC #### [facility] [address] [address] [address] Marvin Reis WBC 50-75 Abnormal NONE SEEN [facility] Comment on above: Performed By: #### U AMIC #### [facility] [address] [address] [address] Marvin Reis CULTURE URINEon 10-01-2022 CULTURE URINE Culture Observations : NO GROWTH. Normal [facility] Comment on above: Performed By: #### U AMIC #### [facility] [address] [address] [address] Marvin Reis UA RANDOM W/MICROSCOPICon BACTERIA SMALL Abnormal NONE SEEN [facility] Comment on above: Performed By: #### U AMIC #### [facility] [address] [address] [address] Marvin Reis Bilirubin Ql (U) Negative Normal NEGATIVE [facility] Comment on above: Performed By: #### U AMIC #### [facility] [address] [address] [address] Marvin Reis CAST SEEN Abnormal NONE SEEN [facility] Comment on above: Performed By: #### U AMIC #### [facility] [address] [address] [address] Marvin Reis Clarity (U) CLEAR Normal CLEAR [facility] Comment on above: Performed By: #### U AMIC #### [facility] [address] [address] [address] Marvin Reis Color (U) LT. YELLOW Normal YELLOW [facility] Comment on above: Performed By: #### U AMIC #### [facility] [address] [address] [address] Marvin Reis Crystals LM Nom (Urine sed) NONE SEEN Normal NONE SEEN [facility] Comment on above: Performed By: #### U AMIC #### [facility] [address] [address] [address] Marvin Reis Epithelial cells LM Ql (Urine sed) FEW Abnormal NONE SEEN /RARE [facility] Comment on above: Performed By: #### U AMIC #### [facility] [address] [place] [address] Dr. Marvin Reis Glucose Ql (U) Negative Normal NEGATIVE [facility] Comment on above: Performed By: #### U AMIC #### [facility] [address] [place] [address] Dr. Marvin Reis Hemoglobin Ql (U) TRACE-INTACT Abnormal NEGATIVE [facility] Comment on above: Performed By: #### U AMIC #### [facility] [address] [address] [address] Marvin Reis HYALINE CAST FEW Normal [facility] Comment on above: Performed By: #### U AMIC #### [facility] [address] [place] [address] Dr. Marvin Reis Ketones Ql (U) Negative Normal NEGATIVE [facility] Comment on above: Performed By: #### U AMIC #### [facility] [address] [place] [address] Dr. Marvin Reis LEUKOCYTES MODERATE Abnormal NEGATIVE [facility] Comment on above: Performed By: #### U AMIC #### [facility] [address] [place] [address] Dr. Marvin Reis MUCOUS SMALL Abnormal NONE SEEN [facility] Comment on above: Performed By: #### U AMIC #### [facility] [address] [place] [address] Dr. Marvin Reis Nitrite Ql (U) Negative Normal NEGATIVE [facility] Comment on above: Performed By: #### U AMIC #### [facility] [address] [place] [address] Dr. Marvin Reis pH (U) 5.5 [pH] Normal 5-9 [facility] Comment on above: Performed By: #### U AMIC #### [facility] [address] [place] [address] Dr. Marvin Reis RBC 0-2 Normal 0-2 [facility] Comment on above: Performed By: #### U AMIC #### [facility] [address] [place] [address] Dr. Marvin Reis SPEC GRAVITY 1.020 Normal 1.005-<=1.025 [facility] Comment on above: Performed By: #### U AMIC #### [facility] [address] [place] [address] Dr. Marvin Reis UA PROTEIN Negative Normal NEGATIVE/ TRACE [facility] Comment on above: Performed By: #### U AMIC #### [facility] [address] [address] [address] Marvin Reis Urobilinogen Qn (U) 0.2 {Robbie'U}/dL Normal 0.2 - 1. 0 [facility] Comment on above: Performed By: #### U AMIC #### [facility] [address] [address] [address] Marvin Reis WBC 10-20 Abnormal NONE SEEN [facility] Comment on above: Performed By: #### U AMIC #### [facility] [address] [address] [address] Marvin Reis CULTURE URINEon 09-26-2022 CULTURE [...] Trimethoprim/Sulfamet hoxazole <=20 S F Normal [facility] Comment on above: Performed By: #### U RCX #### [facility] [address] [place] [address] Dr. Marvin Reis CBC W MANUAL DIFFon 09-25-20 ANISOCYTOSIS SLIGHT Normal [facility] Comment on above: Performed By: #### U RCX #### [facility] [address] [place] [address] Dr. Marvin Reis ATYPICAL LYMPH # Normal [facility] Comment on above: Performed By: #### U RCX #### [facility] [address] [place] [address] Dr. Marvin Reis ATYPICAL LYMPH % Normal [facility] Comment on above: Performed By: #### U RCX #### [facility] [address] [place] [address] Dr. Marvin Reis BAND # Normal 0.0-0.3 [facility] Comment on above: Performed By: #### U RCX #### [facility] [address] [place] [address] Dr. Marvin Reis BAND % Normal 0-5 [facility] Comment on above: Performed By: #### U RCX #### [facility] [address] [place] [address] Dr. Marvin Reis BASOM # 0.00 103/ul Normal 0.00-0.10 [facility] Comment on above: Performed By: #### U RCX #### [facility] [address] [place] [address] Dr. Marvin Reis BASOM % 0.0 % Critically low 0.2-2.0 [facility] Comment on above: Performed By: #### U RCX #### [facility] [address] [place] [address] Dr. Marvin Reis BLAST # Normal [facility] Comment on above: Performed By: #### U RCX #### [facility] [address] [place] [address] Dr. Marvin Reis BLAST % Normal [facility] Comment on above: Performed By: #### U RCX #### [facility] [address] [place] [address] Dr. Marvin Reis CORRECTED WBC Normal 4.0-11.0 [facility] Comment on above: Performed By: #### U RCX #### [facility] [address] [place] [address] Dr. Marvin Reis EOS # 0.00 103/ul Normal 0.00-0.70 [facility] Comment on above: Performed By: #### U RCX #### [facility] [address] [place] [address] Dr. Marvin Reis EOS% 0.0 % Critically low 0.9-7.0 [facility] Comment on above: Performed By: #### U RCX #### [facility] [address] [place] [address] Dr. Marvin Reis HCT 32.1 % Critically low 42.0-54.0 [facility] Comment on above: Performed By: #### U RCX #### [facility] [address] [address] [address] Marvin Reis HGB 10.2 g/dl Critically low 14.0-18.0 [facility] Comment on above: Performed By: #### U RCX #### [facility] [address] [address] [address] Marvin Reis LYMPHM # 0.76 103/ul Critically low 1.20-3.80 [facility] Comment on above: Performed By: #### U RCX #### [facility] [address] [place] [address] Dr. Marvin Reis LYMPHM% 14.0 % Critically low 20.5-60.0 [facility] Comment on above: Performed By: #### U RCX #### [facility] [address] [place] [address] Dr. Marvin Reis MCH 26.5 pg Normal 25.9-34.0 [facility] Comment on above: Performed By: #### U RCX #### [facility] [address] [place] [address] Dr. Marvin Reis MCHC 31.8 g/dl Normal 29.9-35.2 [facility] Comment on above: Performed By: #### U RCX #### [facility] [address] [place] [address] Dr. Marvin Reis MCV 83.4 fL Normal 80.0-94.0 [facility] Comment on above: Performed By: #### U RCX #### [facility] [address] [address] [address] Marvin Reis METAMYELOCYTE # Normal [facility] Comment on above: Performed By: #### U RCX #### [facility] [address] [place] [address] Dr. Marvin Reis METAMYELOCYTE % Normal [facility] Comment on above: Performed By: #### U RCX #### [facility] [address] [address] [address] Marvin Reis MONOM# 0.27 103/ul Critically low 0.30-0.80 [facility] [facility] Comment on above: Performed By: #### U RCX #### [facility] [address] [address] [address] Marvin Reis MONOM% 5.0 % Normal 1.7-12.0 [facility] Comment on above: Performed By: #### U RCX #### [facility] [address] [address] [address] Marvin Reis MPV 9.8 fL Normal 9.5-13.5 [facility] Comment on above: Performed By: #### U RCX #### [facility] [address] [place] [address] Dr. Marvin Reis MYELOCYTE # Normal [facility] Comment on above: Performed By: #### U RCX #### [facility] [address] [address] [address] Marvin Reis MYELOCYTE % Normal [facility] Comment on above: Performed By: #### U RCX #### [facility] [address] [place] [address] Dr. Marvin Reis NRBC Normal [facility] Comment on above: Performed By: #### U RCX #### [facility] [address] [place] [address] Dr. Marvin Reis PLT 78 103/ul Critically low 150-450 [facility] Comment on above: Performed By: #### U RCX #### [facility] [address] [address] [address] Marvin Reis RBC 3.85 106/ul Critically low 4.70-6.10 [facility] Comment on above: Performed By: #### U RCX #### [facility] [address] [place] [address] Dr. Marvin Reis RDW 15.8 % Critically high 11.0-15.0 [facility] Comment on above: Performed By: #### U RCX #### [facility] [address] [address] [address] Marvin Reis SEG # 4.37 103/ul Normal 1.40-6.50 [facility] Comment on above: Performed By: #### U RCX #### [facility] [address] [address] [address] Marvin Reis SEG % 81.0 % Critically high 43.0-75.0 [facility] Comment on above: Performed By: #### U RCX #### [facility] [address] [place] [address] Dr. Marvin Reis WBC 5.4 103/ul Normal 4.0-11.0 [facility] Comment on above: Performed By: #### U RCX #### [facility] [address] [place] [address] Dr. Marvin Reis CRPon 09-25-2022 CRP 8.9 mg/dL Critically high <=1.0 [facility] Comment on above: Performed By: #### U AMIC #### [facility] [address] [place] [address] Dr. Marvin Reis LACTATE/LACTIC ACIDon 2021 Lactate [Moles/Vol] 0.9 mmol/L Normal 0.4-1.9 [facility] Comment on above: Performed By: #### U RCX #### [facility] [address] [place] [address] Dr. Marvin Reis PROF 14(COMP METB)on 022 Albumin [Mass/Vol] 2.6 g/dL Critically low 3.4-5.0 [facility] Comment on above: Performed By: #### U AMIC #### [facility] [address] [address] [address] Marvin Reis Albumin/Globulin [Mass ratio] 0.7 {ratio} Normal [facility] Comment on above: Performed By: #### U AMIC #### [facility] [address] [address] [address] Marvin Reis ALP [Catalytic activity/Vol] 75 U/L Normal 46-116 [facility] Comment on above: Performed By: #### U AMIC #### [facility] [address] [address] [address] Marvin Reis ALT [Catalytic activity/Vol] 23 U/L Normal 16-63 [facility] Comment on above: Performed By: #### U AMIC #### [facility] [address] [address] [address] Marvin Reis Anion gap [Moles/Vol] 11.8 mmol/L Normal [facility] Comment on above: Performed By: #### U AMIC #### [facility] [address] [address] [address] Marvin Reis AST [Catalytic activity/Vol] 21 U/L Normal 15-37 [facility] Comment on above: Performed By: #### U AMIC #### [facility] [address] [address] [address] Marvin Reis Bilirubin [Mass/Vol] 0.8 mg/dL Normal 0.2-1.0 [facility] Comment on above: Performed By: #### U AMIC #### [facility] [address] [address] [address] Marvin Reis Calcium [Mass/Vol] 8.7 mg/dL Normal 8.5-10.[address] [facility] Comment on above: Performed By: #### U AMIC #### [facility] [address] [address] [address] Marvin Reis Chloride [Moles/Vol] 105 mmol/L Normal 98-107 [facility] Comment on above: Performed By: #### U AMIC #### [facility] [address] [address] [address] Marvin Reis CO2 [Moles/Vol] 26.1 mmol/L Normal 21.0-32.0 [facility] Comment on above: Performed By: #### U AMIC #### [facility] [address] [address] [address] Marvin Reis Creatinine [Mass/Vol] 0.88 mg/dL Normal 0.70-1.30 [facility] Comment on above: Performed By: #### U AMIC #### [facility] [address] [address] [address] Marvin Reis EGFR-AF AZERBAIJANI >60 Normal >=60 [facility] Comment on above: Performed By: #### U AMIC #### [facility] [address] [address] [address] Marvin Reis EGFR-NON AF AZERBAIJANI >60 Normal >=60 [facility] Comment on above: Performed By: #### U AMIC #### [facility] [address] [address] [address] Marvin Reis Globulin (S) [Mass/Vol] 3.7 g/dL Normal [facility] Comment on above: Performed By: #### U AMIC #### [facility] [address] [address] [address] Marvin Reis Glucose [Mass/Vol] 93 mg/dL Normal 74-[address] [facility] Comment on above: Performed By: #### U AMIC #### [facility] [address] [address] [address] Marvin Reis Potassium [Moles/Vol] 3.9 mmol/L Normal 3.5-5.1 [facility] Comment on above: Performed By: #### U AMIC #### [facility] [address] [address] [address] Marvin Reis Protein [Mass/Vol] 6.3 g/dL Critically low 6.4-8.2 [facility] Comment on above: Performed By: #### U AMIC #### [facility] [address] [address] [address] Marvin Reis Sodium [Moles/Vol] 139 mmol/L Normal 136-[address] [facility] Comment on above: Performed By: #### U AMIC #### [facility] [address] [address] [address] Marvin Reis Urea nitrogen [Mass/Vol] 20.0 mg/dL Critically high 7.0-18.0 [facility] Comment on above: Performed By: #### U AMIC #### [facility] [address] [place] [address] Dr. Marvin Reis Urea nitrogen/Creatinine [Mass ratio] 22.7 mg/mg Normal [facility] Comment on above: Performed By: #### U AMIC #### [facility] [address] [place] [address] Dr. Marvin Reis SED RATE WESTERGRENon 2021 SED RATE 49 mm/hr Critically high <=20 [facility] Comment on above: Performed By: #### U AMIC #### [facility] [address] [place] [address] Dr. Marvin Reis CBC W MANUAL DIFFon 09-24-20 ATYPICAL LYMPH # Normal [facility] Comment on above: Performed By: #### U RCX #### [facility] [address] [place] [address] Dr. Marvin Reis ATYPICAL LYMPH % Normal [facility] Comment on above: Performed By: #### U RCX #### [facility] [address] [place] [address] Dr. Marvin Reis BAND # Normal 0.0-0.3 [facility] Comment on above: Performed By: #### U RCX #### [facility] [address] [place] [address] Dr. Marvin Reis BAND % Normal 0-5 [facility] Comment on above: Performed By: #### U RCX #### [facility] [address] [place] [address] Dr. Marvin Reis BASOM # 0.00 103/ul Normal 0.00-0.10 [facility] Comment on above: Performed By: #### U RCX #### [facility] [address] [address] [address] Marvin Reis BASOM % 0.0 % Critically low 0.2-2.0 [facility] Comment on above: Performed By: #### U RCX #### [facility] [address] [place] [address] Dr. Marvin Reis BLAST # Normal [facility] Comment on above: Performed By: #### U RCX #### [facility] [address] [address] [address] Marvin Reis BLAST % Normal [facility] Comment on above: Performed By: #### U RCX #### [facility] [address] [place] [address] Dr. Marvin Reis CORRECTED WBC Normal 4.0-11.0 [facility] Comment on above: Performed By: #### U RCX #### [facility] [address] [address] [address] Marvin Reis EOS # 0.00 103/ul Normal 0.00-0.70 [facility] Comment on above: Performed By: #### U RCX #### [facility] [address] [place] [address] Dr. Marvin Reis EOS% 0.0 % Critically low 0.9-7.0 [facility] Comment on above: Performed By: #### U RCX #### [facility] [address] [place] [address] Dr. Marvin Reis HCT 33.5 % Critically low 42.0-54.0 [facility] Comment on above: Performed By: #### U RCX #### [facility] [address] [place] [address] Dr. Marvin Reis HGB 10.9 g/dl Critically low 14.0-18.0 [facility] Comment on above: Performed By: #### U RCX #### [facility] [address] [place] [address] Dr. Marvin Reis LYMPHM # 0.52 103/ul Critically low 1.20-3.80 [facility] Comment on above: Performed By: #### U RCX #### [facility] [address] [place] [address] Dr. Marvin Reis LYMPHM% 4.0 % Critically low 20.5-60.0 [facility] Comment on above: Performed By: #### U RCX #### [facility] [address] [place] [address] Dr. Marvin Reis MCH 27.2 pg Normal 25.9-34.0 [facility] Comment on above: Performed By: #### U RCX #### [facility] [address] [place] [address] Dr. Marvin Reis MCHC 32.5 g/dl Normal 29.9-35.2 [facility] Comment on above: Performed By: #### U RCX #### [facility] [address] [address] [address] Marvin Reis MCV 83.5 fL Normal 80.0-94.0 [facility] Comment on above: Performed By: #### U RCX #### [facility] [address] [place] [address] Dr. Marvin Reis METAMYELOCYTE # Normal [facility] Comment on above: Performed By: #### U RCX #### [facility] [address] [place] [address] Dr. Marvin Reis METAMYELOCYTE % Normal [facility] Comment on above: Performed By: #### U RCX #### [facility] [address] [place] [address] Dr. Marvin Reis MONOM# 0.39 103/ul Normal 0.30-0.80 [facility] Comment on above: Performed By: #### U RCX #### [facility] [address] [place] [address] Dr. Marvin Reis MONOM% 3.0 % Normal 1.7-12.0 [facility] Comment on above: Performed By: #### U RCX #### [facility] [address] [place] [address] Dr. Marvin Reis MPV 10.5 fL Normal 9.5-13.5 [facility] Comment on above: Performed By: #### U RCX #### [facility] [address] [place] [address] Dr. Marvin Reis MYELOCYTE # Normal [facility] Comment on above: Performed By: #### U RCX #### [facility] [address] [place] [address] Dr. Marvin Reis MYELOCYTE % Normal [facility] Comment on above: Performed By: #### U RCX #### [facility] [address] [address] [address] Marvin Reis NRBC Normal [facility] Comment on above: Performed By: #### U RCX #### [facility] [address] [address] [address] Marvin Reis PLT 96 103/ul Critically low 150-450 [facility] Comment on above: Performed By: #### U RCX #### [facility] [address] [address] [address] Marvin Reis RBC 4.01 106/ul Critically low 4.70-6.10 [facility] Comment on above: Performed By: #### U RCX #### [facility] [address] [address] [address] Marvin Reis RDW 15.8 % Critically high 11.0-15.0 [facility] Comment on above: Performed By: #### U RCX #### [facility] [address] [address] [address] Marvin Reis SEG # 12.00 103/ul Critically high 1.40-6.50 [facility] Comment on above: Performed By: #### U RCX #### [facility] [address] [address] [address] Marvin Reis SEG % 93.0 % Critically high 43.0-75.0 [facility] Comment on above: Performed By: #### U RCX #### [facility] [address] [address] [address] Marvin Reis WBC 12.9 103/ul Critically high 4.0-11.0 [facility] Comment on above: Performed By: #### U RCX #### [facility] [address] [address] [address] Marvin Reis CRPon 09-24-2022 CRP 8.4 mg/dL Critically high <=1.0 [facility] Comment on above: Performed By: #### U AMIC #### [facility] [address] [address] [address] Marvin Reis LACTATE/LACTIC ACIDon 2021 Lactate [Moles/Vol] 2.2 mmol/L Critically high 0.4-1.9 [facility] Comment on above: Performed By: #### L ACT #### [facility] [address] [address] [address] Marvin Reis PROF 14(COMP METB)on 022 Albumin [Mass/Vol] 2.8 g/dL Critically low 3.4-5.0 [facility] Comment on above: Performed By: #### U AMIC #### [facility] [address] [place] [address] Dr. Marvin Reis Albumin/Globulin [Mass ratio] 0.7 {ratio} Normal [facility] Comment on above: Performed By: #### U AMIC #### [facility] [address] [place] [address] Dr. Marvin Reis ALP [Catalytic activity/Vol] 80 U/L Normal 46-116 [facility] Comment on above: Performed By: #### U AMIC #### [facility] [address] [place] [address] Dr. Marvin Reis ALT [Catalytic activity/Vol] 20 U/L Normal 16-63 [facility] Comment on above: Performed By: #### U AMIC #### [facility] [address] [place] [address] Dr. Marvin Reis Anion gap [Moles/Vol] 12.3 mmol/L Normal [facility] Comment on above: Performed By: #### U AMIC #### [facility] [address] [place] [address] Dr. Marvin Reis AST [Catalytic activity/Vol] 17 U/L Normal 15-37 [facility] Comment on above: Performed By: #### U AMIC #### [facility] [address] [place] [address] Dr. Marvin Reis Bilirubin [Mass/Vol] 1.0 mg/dL Normal 0.2-1.0 [facility] Comment on above: Performed By: #### U AMIC #### [facility] [address] [address] [address] Marvin Reis Calcium [Mass/Vol] 9.0 mg/dL Normal 8.5-10.[address] [facility] Comment on above: Performed By: #### U AMIC #### [facility] [address] [address] [address] Marvin Reis Chloride [Moles/Vol] 106 mmol/L Normal 98-107 [facility] Comment on above: Performed By: #### U AMIC #### [facility] [address] [address] [address] Marvin Reis CO2 [Moles/Vol] 25.8 mmol/L Normal 21.0-32.0 [facility] Comment on above: Performed By: #### U AMIC #### [facility] [address] [place] [address] Dr. Marvin Reis Creatinine [Mass/Vol] 1.08 mg/dL Normal 0.70-1.30 [facility] Comment on above: Performed By: #### U AMIC #### [facility] [address] [address] [address] Marvin Reis EGFR-AF AZERBAIJANI >60 Normal >=60 [facility] Comment on above: Performed By: #### U AMIC #### [facility] [address] [address] [address] Marvin Reis EGFR-NON AF AZERBAIJANI >60 Normal >=60 [facility] Comment on above: Performed By: #### U AMIC #### [facility] [address] [address] [address] Marvin Reis Globulin (S) [Mass/Vol] 3.8 g/dL Normal [facility] Comment on above: Performed By: #### U AMIC #### [facility] [address] [address] [address] Marvin Reis Glucose [Mass/Vol] 117 mg/dL Critically high 74-106 [facility] Comment on above: Performed By: #### U AMIC #### [facility] [address] [address] [address] Marvin Reis Potassium [Moles/Vol] 4.1 mmol/L Normal 3.5-5.1 [facility] Comment on above: Performed By: #### U AMIC #### [facility] [address] [address] [address] Marvin Reis Protein [Mass/Vol] 6.6 g/dL Normal 6.4-8.[address] [facility] Comment on above: Performed By: #### U AMIC #### [facility] [address] [address] [address] Marvin Reis Sodium [Moles/Vol] 140 mmol/L Normal 136-[address] [facility] Comment on above: Performed By: #### U AMIC #### [facility] [address] [place] [address] Dr. aMrvin Reis Urea nitrogen [Mass/Vol] 23.0 mg/dL Critically high 7.0-18.0 [facility] Comment on above: Performed By: #### U AMIC #### [facility] [address] [place] [address] Dr. Marvin Reis Urea nitrogen/Creatinine [Mass ratio] 21.3 mg/mg Normal [facility] Comment on above: Performed By: #### U AMIC #### [facility] [address] [place] [address] Dr. Marvin Reis SED RATE [facility] 2021 SED RATE 51 mm/hr Critically high <=20 [facility] Comment on above: Performed By: #### U RCX #### [facility] [address] [place] [address] Dr. Marvin Reis UA RANDOMon 09-24-2022 Bilirubin Ql (U) Negative Normal NEGATIVE [facility] Comment on above: Performed By: #### U AMIC #### [facility] [address] [place] [address] Dr. Marvin Reis Clarity (U) CLEAR Normal CLEAR [facility] Comment on above: Performed By: #### U AMIC #### [facility] [address] [place] [address] Dr. Marvin Reis Color (U) LT. YELLOW Normal YELLOW [facility] Comment on above: Performed By: #### U AMIC #### [facility] [address] [address] [address] Marvin Reis Glucose Ql (U) Negative Normal NEGATIVE [facility] Comment on above: Performed By: #### U AMIC #### [facility] [address] [address] [address] Marvin Reis Hemoglobin Ql (U) LARGE Abnormal NEGATIVE [facility] Comment on above: Performed By: #### U AMIC #### [facility] [address] [address] [address] Marvin Reis Ketones Ql (U) Negative Normal NEGATIVE [facility] Comment on above: Performed By: #### U AMIC #### [facility] [address] [place] [address] Dr. Marvin Reis LEUKOCYTES MODERATE Abnormal NEGATIVE [facility] Comment on above: Performed By: #### U AMIC #### [facility] [address] [place] [address] Dr. Marvin Reis Nitrite Ql (U) Negative Normal NEGATIVE [facility] Comment on above: Performed By: #### U AMIC #### [facility] [address] [address] [address] Marvin Reis pH (U) 5.5 [pH] Normal 5-9 [facility] Comment on above: Performed By: #### U AMIC #### [facility] [address] [address] [address] Marvin Reis SPEC GRAVITY 1.020 Normal 1.005-<=1.025 [facility] Comment on above: Performed By: #### U AMIC #### [facility] [address] [place] [address] Dr. Marvin Reis UA PROTEIN Negative Normal NEGATIVE/ TRACE [facility] Comment on above: Performed By: #### U AMIC #### [facility] [address] [place] [address] Dr. Marvin Reis Urobilinogen Qn (U) 0.2 {Robbie'U}/dL Normal 0.2 - 1. 0 [facility] Comment on above: Performed By: #### U AMIC #### [facility] [address] [place] [address] Dr. Marvin Reis CULTURE URINEon 09-13-2022 CULTURE [...] F Oxacillin >=4 R F Normal [facility] Comment on above: Performed By: #### U RCX #### [facility] [address] [place] [address] Dr. Marvin Reis UA RANDOM W/MICROSCOPICon BACTERIA TRACE Abnormal NONE SEEN [facility] Comment on above: Performed By: #### U AMIC #### [facility] [address] [place] [address] Dr. Marvin eRis Bilirubin Ql (U) Negative Normal NEGATIVE [facility] Comment on above: Performed By: #### U AMIC #### [facility] [address] [place] [address] Dr. Marvin Reis CAST NONE SEEN Normal NONE SEEN [facility] Comment on above: Performed By: #### U AMIC #### [facility] [address] [place] [address] Dr. Marvin Reis Clarity (U) CLEAR Normal CLEAR [facility] Comment on above: Performed By: #### U AMIC #### [facility] [address] [place] [address] Dr. Marvin Reis Color (U) LT. YELLOW Normal YELLOW [facility] Comment on above: Performed By: #### U AMIC #### [facility] [address] [address] [address] Marvin Reis Crystals LM Nom (Urine sed) NONE SEEN Normal NONE SEEN [facility] Comment on above: Performed By: #### U AMIC #### [facility] [address] [address] [address] Marvin Reis Epithelial cells LM Ql (Urine sed) FEW Abnormal NONE SEEN /RARE [facility] Comment on above: Performed By: #### U AMIC #### [facility] [address] [address] [address] Marvin Reis Glucose Ql (U) Negative Normal NEGATIVE [facility] Comment on above: Performed By: #### U AMIC #### [facility] [address] [address] [address] Marvin Reis Hemoglobin Ql (U) Negative Normal NEGATIVE [facility] Comment on above: Performed By: #### U AMIC #### [facility] [address] [address] [address] Marvin Reis Ketones Ql (U) Negative Normal NEGATIVE [facility] Comment on above: Performed By: #### U AMIC #### [facility] [address] [address] [address] Marvin Reis LEUKOCYTES LARGE Abnormal NEGATIVE [facility] Comment on above: Performed By: #### U AMIC #### [facility] [address] [address] [address] Marvin Reis MUCOUS NONE SEEN Normal NONE SEEN [facility] Comment on above: Performed By: #### U AMIC #### [facility] [address] [address] [address] Marvin Reis Nitrite Ql (U) Negative Normal NEGATIVE [facility] Comment on above: Performed By: #### U AMIC #### [facility] [address] [address] [address] Marvin Reis pH (U) 5.5 [pH] Normal 5-9 [facility] Comment on above: Performed By: #### U AMIC #### [facility] [address] [address] [address] Marvin Reis RBC 0-2 Normal 0-2 [facility] Comment on above: Performed By: #### U AMIC #### [facility] [address] [place] [address] Dr. Marvin Reis SPEC GRAVITY 1.025 Normal 1.005-<=1.025 [facility] Comment on above: Performed By: #### U AMIC #### [facility] [address] [place] [address] Dr. Marvin Reis UA PROTEIN Negative Normal NEGATIVE/ TRACE [facility] Comment on above: Performed By: #### U AMIC #### [facility] [address] [place] [address] Dr. Marvin Reis Urobilinogen Qn (U) 0.2 {Robbie'U}/dL Normal 0.2 - 1. 0 [facility] Comment on above: Performed By: #### U AMIC #### [facility] [address] [place] [address] Dr. Marvin Reis WBC 10-20 Abnormal NONE SEEN [facility] Comment on above: Performed By: #### U AMIC #### [facility] [address] [place] [address] Dr. Marvin Reis CULTURE URINEon 08-17-2022 CULTURE [...] Trimethoprim/Sulfamet hoxazole <=20 S F Normal [facility] Comment on above: Performed By: #### U RCX #### [facility] [address] [place] [address] Dr. Marvin Reis UA RANDOM W/MICROSCOPICon 10 -13-2022 BACTERIA MODERATE Abnormal NONE SEEN [facility] Comment on above: Performed By: #### U RCX #### [facility] [address] [address] [address] Marvin Reis Bilirubin Ql (U) Negative Normal NEGATIVE [facility] Comment on above: Performed By: #### U RCX #### [facility] [address] [place] [address] Dr. Marvin Reis CAST NONE SEEN Normal NONE SEEN [facility] Comment on above: Performed By: #### U RCX #### [facility] [address] [address] [address] Marvin Reis Clarity (U) SL CLOUDY Abnormal CLEAR [facility] Comment on above: Performed By: #### U RCX #### [facility] [address] [place] [address] Dr. Marvin Reis Color (U) LT. YELLOW Normal YELLOW [facility] Comment on above: Performed By: #### U RCX #### [facility] [address] [address] [address] Marvin Reis Crystals LM Nom (Urine sed) NONE SEEN Normal NONE SEEN [facility] Comment on above: Performed By: #### U RCX #### [facility] [address] [place] [address] Dr. Marvin Reis Epithelial cells LM Ql (Urine sed) RARE Normal NONE SEEN /RARE [facility] Comment on above: Performed By: #### U RCX #### [facility] [address] [place] [address] Dr. Marvin Reis Glucose Ql (U) Negative Normal NEGATIVE [facility] Comment on above: Performed By: #### U RCX #### [facility] [address] [address] [address] Marvin Reis Hemoglobin Ql (U) SMALL Abnormal NEGATIVE [facility] Comment on above: Performed By: #### U RCX #### [facility] [address] [place] [address] Dr. Marvin Reis Ketones Ql (U) Negative Normal NEGATIVE [facility] Comment on above: Performed By: #### U RCX #### [facility] [address] [address] [address] Marvin Reis LEUKOCYTES MODERATE Abnormal NEGATIVE [facility] Comment on above: Performed By: #### U RCX #### [facility] [address] [place] [address] Dr. Marvin Reis MUCOUS NONE SEEN Normal NONE SEEN [facility] Comment on above: Performed By: #### U RCX #### [facility] [address] [address] [address] Marvin Reis Nitrite Ql (U) Positive Abnormal NEGATIVE [facility] Comment on above: Performed By: #### U RCX #### [facility] [address] [place] [address] Dr. Marvin Reis pH (U) 6.0 [pH] Normal 5-9 [facility] Comment on above: Performed By: #### U RCX #### [facility] [address] [place] [address] Dr. Marvin Reis RBC 0-2 Normal 0-2 [facility] Comment on above: Performed By: #### U RCX #### [facility] [address] [address] [address] Marvin Reis SPEC GRAVITY 1.015 Normal 1.005-<=1.025 [facility] Comment on above: Performed By: #### U RCX #### [facility] [address] [place] [address] Dr. Marvin Reis UA PROTEIN Negative Normal NEGATIVE/ TRACE [facility] Comment on above: Performed By: #### U RCX #### [facility] [address] [place] [address] Dr. Marvin Reis Urobilinogen Qn (U) 0.2 {Robbie'U}/dL Normal 0.2 - 1. 0 [facility] Comment on above: Performed By: #### U RCX #### [facility] [address] [place] [address] Dr. Marvin Reis WBC 10-20 Abnormal NONE SEEN [facility] Comment on above: Performed By: #### U RCX #### [facility] [address] [place] [address] Dr. Marvin Reis CULTURE URINEon 08-02-2022 CULTURE [...] Trimethoprim/Sulfamet hoxazole <=20 S F Normal [facility] Comment on above: Performed By: #### U RCX #### [facility] [address] [place] [address] Dr. Marvin Reis UA RANDOM W/MICROSCOPICon BACTERIA MODERATE Abnormal NONE SEEN [facility] Comment on above: Performed By: #### U AMIC #### [facility] [address] [place] [address] Dr. Marvin Reis Bilirubin Ql (U) Negative Normal NEGATIVE [facility] Comment on above: Performed By: #### U AMIC #### [facility] [address] [place] [address] Dr. Marvin Reis CAST NONE SEEN Normal NONE SEEN [facility] Comment on above: Performed By: #### U AMIC #### [facility] [address] [place] [address] Dr. Marvin Reis Clarity (U) SL CLOUDY Abnormal CLEAR [facility] Comment on above: Performed By: #### U AMIC #### [facility] [address] [place] [address] Dr. Marvin Reis Color (U) LT. YELLOW Normal YELLOW [facility] Comment on above: Performed By: #### U AMIC #### [facility] [address] [place] [address] Dr. Marvin Reis Crystals LM Nom (Urine sed) NONE SEEN Normal NONE SEEN [facility] Comment on above: Performed By: #### U AMIC #### [facility] [address] [address] [address] Marvin Reis Epithelial cells LM Ql (Urine sed) NONE SEEN Normal NONE SEEN /RARE [facility] Comment on above: Performed By: #### U AMIC #### [facility] [address] [address] [address] Marvin Reis Glucose Ql (U) Negative Normal NEGATIVE [facility] Comment on above: Performed By: #### U AMIC #### [facility] [address] [address] [address] Marvin Reis Hemoglobin Ql (U) TRACE-INTACT Abnormal NEGATIVE [facility] Comment on above: Performed By: #### U AMIC #### [facility] [address] [place] [address] Dr. Marvin Reis Ketones Ql (U) Negative Normal NEGATIVE [facility] Comment on above: Performed By: #### U AMIC #### [facility] [address] [address] [address] Marvin Reis LEUKOCYTES MODERATE Abnormal NEGATIVE [facility] Comment on above: Performed By: #### U AMIC #### [facility] [address] [address] [address] Marvin Reis MUCOUS NONE SEEN Normal NONE SEEN [facility] Comment on above: Performed By: #### U AMIC #### [facility] [address] [address] [address] Marvin Reis Nitrite Ql (U) Positive Abnormal NEGATIVE [facility] Comment on above: Performed By: #### U AMIC #### [facility] [address] [address] [address] Marvin Reis pH (U) 6.0 [pH] Normal 5-9 [facility] Comment on above: Performed By: #### U AMIC #### [facility] [address] [address] [address] Marvin Reis RBC 0-2 Normal 0-2 [facility] Comment on above: Performed By: #### U AMIC #### [facility] [address] [place] [address] Dr. Marvin Reis SPEC GRAVITY 1.015 Normal 1.005-<=1.025 [facility] Comment on above: Performed By: #### U AMIC #### [facility] [address] [place] [address] Dr. Marvin Reis UA PROTEIN Negative Normal NEGATIVE/ TRACE [facility] Comment on above: Performed By: #### U AMIC #### [facility] [address] [place] [address] Dr. Marvin Reis Urobilinogen Qn (U) 0.2 {Robbie'U}/dL Normal 0.2 - 1. 0 [facility] Comment on above: Performed By: #### U AMIC #### [facility] [address] [place] [address] Dr. Marvin Reis WBC 20-50 Abnormal NONE SEEN [facility] Comment on above: Performed By: #### U AMIC #### [facility] [address] [place] [address] Dr. Marvin Reis CULTURE URINEon 06-27-2022 CULTURE [...] F Oxacillin >=4 R F Normal [facility] Comment on above: Performed By: #### U AMIC #### [facility] [address] [place] [address] Dr. Marvin Reis UA RANDOM W/MICROSCOPICon BACTERIA LARGE Abnormal NONE SEEN [facility] Comment on above: Performed By: #### U RCX #### [facility] [address] [address] [address] Marvin Reis Bilirubin Ql (U) Negative Normal NEGATIVE [facility] Comment on above: Performed By: #### U RCX #### [facility] [address] [address] [address] Marvin Reis CAST NONE SEEN Normal NONE SEEN [facility] Comment on above: Performed By: #### U RCX #### [facility] [address] [address] [address] Marvin Reis Clarity (U) CLEAR Normal CLEAR [facility] Comment on above: Performed By: #### U RCX #### [facility] [address] [place] [address] Dr. Marvin Reis Color (U) LT. YELLOW Normal YELLOW [facility] Comment on above: Performed By: #### U RCX #### [facility] [address] [place] [address] Dr. Marvin Reis Crystals LM Nom (Urine sed) NONE SEEN Normal NONE SEEN [facility] Comment on above: Performed By: #### U RCX #### [facility] [address] [address] [address] Marvin Reis Epithelial cells LM Ql (Urine sed) FEW Abnormal NONE SEEN /RARE [facility] Comment on above: Performed By: #### U RCX #### [facility] [address] [place] [address] Dr. Marvin Reis Glucose Ql (U) Negative Normal NEGATIVE [facility] Comment on above: Performed By: #### U RCX #### [facility] [address] [address] [address] Marvin Reis Hemoglobin Ql (U) TRACE-INTACT Abnormal NEGATIVE [facility] Comment on above: Performed By: #### U RCX #### [facility] [address] [place] [address] Dr. Marvin Reis Ketones Ql (U) Negative Normal NEGATIVE [facility] Comment on above: Performed By: #### U RCX #### [facility] [address] [address] [address] Marvin Reis LEUKOCYTES LARGE Abnormal NEGATIVE [facility] Comment on above: Performed By: #### U RCX #### [facility] [address] [place] [address] Dr. Marvin Reis MUCOUS NONE SEEN Normal NONE SEEN [facility] Comment on above: Performed By: #### U RCX #### [facility] [address] [place] [address] Dr. Marvin Reis Nitrite Ql (U) Positive Abnormal NEGATIVE [facility] Comment on above: Performed By: #### U RCX #### [facility] [address] [place] [address] Dr. Marvin Reis pH (U) 5.5 [pH] Normal 5-9 [facility] Comment on above: Performed By: #### U RCX #### [facility] [address] [place] [address] Dr. Marvin Reis RBC 2-5 Abnormal 0-2 [facility] Comment on above: Performed By: #### U RCX #### [facility] [address] [place] [address] Dr. Marvin Reis SPEC GRAVITY 1.015 Normal 1.005-<=1.025 [facility] Comment on above: Performed By: #### U RCX #### [facility] [address] [place] [address] Dr. Marvin Reis UA PROTEIN Negative Normal NEGATIVE/ TRACE [facility] Comment on above: Performed By: #### U RCX #### [facility] [address] [place] [address] Dr. Marvin Reis Urobilinogen Qn (U) 0.2 {Robbie'U}/dL Normal 0.2 - 1. 0 [facility] Comment on above: Performed By: #### U RCX #### [facility] [address] [place] [address] Dr. Marvin Reis WBC (U) [#/Vol] /uL Abnormal NONE SEEN [facility] Comment on above: Performed By: #### U RCX #### [facility] [address] [place] [address] Dr. Marvin Reis CULTURE URINEon 05-27-2022 CULTURE [...] F Oxacillin >=4 R F Normal [facility] Comment on above: Performed By: #### U RCX #### [facility] [address] [place] [address] Dr. Marvin Reis UA RANDOM W/MICROSCOPICon BACTERIA MODERATE Abnormal NONE SEEN [facility] Comment on above: Performed By: #### U RCX #### [facility] [address] [place] [address] Dr. Marvin Reis Bilirubin Ql (U) Negative Normal NEGATIVE [facility] Comment on above: Performed By: #### U RCX #### [facility] [address] [place] [address] Dr. Marvin Reis CAST NONE SEEN Normal NONE SEEN [facility] Comment on above: Performed By: #### U RCX #### [facility] [address] [place] [address] Dr. Marvin Reis Clarity (U) SL CLOUDY Abnormal CLEAR [facility] Comment on above: Performed By: #### U RCX #### [facility] [address] [place] [address] Dr. Marvin Reis Color (U) LT. YELLOW Normal YELLOW [facility] Comment on above: Performed By: #### U RCX #### [facility] [address] [place] [address] Dr. Marvin Reis Crystals LM Nom (Urine sed) NONE SEEN Normal NONE SEEN [facility] Comment on above: Performed By: #### U RCX #### [facility] [address] [address] [address] Marvin Reis Epithelial cells LM Ql (Urine sed) FEW Abnormal NONE SEEN /RARE [facility] Comment on above: Performed By: #### U RCX #### [facility] [address] [address] [address] Marvin Reis Glucose Ql (U) Negative Normal NEGATIVE [facility] Comment on above: Performed By: #### U RCX #### [facility] [address] [address] [address] Marvin Reis Hemoglobin Ql (U) SMALL Abnormal NEGATIVE [facility] Comment on above: Performed By: #### U RCX #### [facility] [address] [place] [address] Dr. Marvin Reis Ketones Ql (U) Negative Normal NEGATIVE [facility] Comment on above: Performed By: #### U RCX #### [facility] [address] [address] [address] Marvin Reis LEUKOCYTES LARGE Abnormal NEGATIVE [facility] Comment on above: Performed By: #### U RCX #### [facility] [address] [address] [address] Marvin Reis MUCOUS TRACE Abnormal NONE SEEN [facility] Comment on above: Performed By: #### U RCX #### [facility] [address] [address] [address] Marvin Reis Nitrite Ql (U) Negative Normal NEGATIVE [facility] Comment on above: Performed By: #### U RCX #### [facility] [address] [address] [address] Marvin Reis pH (U) 6.0 [pH] Normal 5-9 [facility] Comment on above: Performed By: #### U RCX #### [facility] [address] [address] [address] Marvin Reis RBC 2-5 Abnormal 0-2 [facility] Comment on above: Performed By: #### U RCX #### [facility] [address] [address] [address] Marvin Reis SPEC GRAVITY 1.010 Normal 1.005-<=1.025 [facility] Comment on above: Performed By: #### U RCX #### [facility] [address] [address] [address] Marvin Reis UA PROTEIN Negative Normal NEGATIVE/ TRACE [facility] Comment on above: Performed By: #### U RCX #### [facility] [address] [address] [address] Marvin Reis Urobilinogen Qn (U) 0.2 {Robbie'U}/dL Normal 0.2 - 1. 0 [facility] Comment on above: Performed By: #### U RCX #### [facility] [address] [place] [address] Dr. Marvin Reis WBC 50-75 Abnormal NONE SEEN [facility] Comment on above: Performed By: #### U RCX #### [facility] [address] [place] [address] Dr. Marvin Reis CULTURE URINEon 04-18-2022 CULTURE [...] F Oxacillin >=4 R F Normal [facility] Comment on above: Performed By: #### U RCX #### [facility] [address] [address] [address] Marvin Reis UA RANDOM W/MICROSCOPICon BACTERIA TRACE Abnormal NONE SEEN [facility] Comment on above: Performed By: #### U AMIC #### [facility] [address] [address] [address] Marvin Reis Bilirubin Ql (U) Negative Normal NEGATIVE [facility] Comment on above: Performed By: #### U AMIC #### [facility] [address] [address] [address] Marvin Reis CAST NONE SEEN Normal NONE SEEN [facility] Comment on above: Performed By: #### U AMIC #### [facility] [address] [address] [address] Marvin Reis Clarity (U) CLEAR Normal CLEAR [facility] Comment on above: Performed By: #### U AMIC #### [facility] [address] [address] [address] Marvin Reis Color (U) LT. YELLOW Normal YELLOW [facility] Comment on above: Performed By: #### U AMIC #### [facility] [address] [address] [address] Marvin Reis Crystals LM Nom (Urine sed) NONE SEEN Normal NONE SEEN [facility] Comment on above: Performed By: #### U AMIC #### [facility] [address] [address] [address] Marvin Reis Epithelial cells LM Ql (Urine sed) FEW Abnormal NONE SEEN /RARE [facility] Comment on above: Performed By: #### U AMIC #### [facility] [address] [address] [address] Marvin Reis Glucose Ql (U) Negative Normal NEGATIVE [facility] Comment on above: Performed By: #### U AMIC #### [facility] [address] [address] [address] Marvin Reis Hemoglobin Ql (U) TRACE-INTACT Abnormal NEGATIVE [facility] Comment on above: Performed By: #### U AMIC #### [facility] [address] [address] [address] Marvin Reis Ketones Ql (U) Negative Normal NEGATIVE [facility] Comment on above: Performed By: #### U AMIC #### [facility] [address] [place] [address] Dr. Marvin Reis LEUKOCYTES SMALL Abnormal NEGATIVE [facility] Comment on above: Performed By: #### U AMIC #### [facility] [address] [place] [address] Dr. Marvin Reis MUCOUS NONE SEEN Normal NONE SEEN [facility] Comment on above: Performed By: #### U AMIC #### [facility] [address] [place] [address] Dr. Marvin Reis Nitrite Ql (U) Negative Normal NEGATIVE [facility] Comment on above: Performed By: #### U AMIC #### [facility] [address] [place] [address] Dr. Marvin Reis pH (U) 6.0 [pH] Normal 5-9 [facility] Comment on above: Performed By: #### U AMIC #### [facility] [address] [place] [address] Dr. Marvin Reis RBC 0-2 Normal 0-2 [facility] Comment on above: Performed By: #### U AMIC #### [facility] [address] [place] [address] Dr. Marvin Reis SPEC GRAVITY 1.010 Normal 1.005-<=1.025 [facility] Comment on above: Performed By: #### U AMIC #### [facility] [address] [place] [address] Dr. Marvin Reis UA PROTEIN Negative Normal NEGATIVE/ TRACE [facility] Comment on above: Performed By: #### U AMIC #### [facility] [facility] [address] [place] [address] Dr. Marvin Reis Urobilinogen Qn (U) 0.2 {Robbie'U}/dL Normal 0.2 - 1. 0 [facility] Comment on above: Performed By: #### U AMIC #### [facility] [address] [place] [address] Dr. Marvin Reis WBC 2-5 Abnormal NONE SEEN [facility] Comment on above: Performed By: #### U AMIC #### [facility] [address] [place] [address] Dr. Marvin Reis CULTURE URINEon 03-27-2022 CULTURE [...] Trimethoprim/Sulfamet hoxazole >=320 R F Normal [facility] Comment on above: Performed By: #### U RCX #### [facility] [address] [place] [address] Dr. Marvin Reis UA RANDOM W/MICROSCOPICon BACTERIA TRACE Abnormal NONE SEEN [facility] Comment on above: Performed By: #### U RCX #### [facility] [address] [place] [address] Dr. Marvin Reis Bilirubin Ql (U) Negative Normal NEGATIVE [facility] Comment on above: Performed By: #### U RCX #### [facility] [address] [place] [address] Dr. Marvin Reis CAST NONE SEEN Normal NONE SEEN [facility] Comment on above: Performed By: #### U RCX #### [facility] [address] [place] [address] Dr. Marvin Reis Clarity (U) CLEAR Normal CLEAR [facility] Comment on above: Performed By: #### U RCX #### [facility] [address] [address] [address] Marvin Reis Color (U) LT. YELLOW Normal YELLOW [facility] Comment on above: Performed By: #### U RCX #### [facility] [address] [place] [address] Dr. Marvin Reis Crystals LM Nom (Urine sed) NONE SEEN Normal NONE SEEN [facility] Comment on above: Performed By: #### U RCX #### [facility] [address] [address] [address] Marvin Reis Epithelial cells LM Ql (Urine sed) FEW Abnormal NONE SEEN /RARE [facility] Comment on above: Performed By: #### U RCX #### [facility] [address] [place] [address] Dr. Marvin Reis Glucose Ql (U) Negative Normal NEGATIVE [facility] Comment on above: Performed By: #### U RCX #### [facility] [address] [place] [address] Dr. Marvin Reis Hemoglobin Ql (U) SMALL Abnormal NEGATIVE [facility] Comment on above: Performed By: #### U RCX #### [facility] [address] [place] [address] Dr. Marvin Reis Ketones Ql (U) Negative Normal NEGATIVE [facility] Comment on above: Performed By: #### U RCX #### [facility] [address] [place] [address] Dr. Marvin Reis LEUKOCYTES MODERATE Abnormal NEGATIVE [facility] Comment on above: Performed By: #### U RCX #### [facility] [address] [place] [address] Dr. Marvin Reis MUCOUS NONE SEEN Normal NONE SEEN [facility] Comment on above: Performed By: #### U RCX #### [facility] [address] [place] [address] Dr. Marvin Reis Nitrite Ql (U) Negative Normal NEGATIVE [facility] Comment on above: Performed By: #### U RCX #### [facility] [address] [place] [address] Dr. Marvin Reis pH (U) 5.5 [pH] Normal 5-9 [facility] Comment on above: Performed By: #### U RCX #### [facility] [address] [place] [address] Dr. Marvin Reis RBC NONE SEEN Abnormal 0-2 [facility] Comment on above: Performed By: #### U RCX #### [facility] [address] [place] [address] Dr. Marvin Reis SPEC GRAVITY 1.015 Normal 1.005-<=1.025 [facility] Comment on above: Performed By: #### U RCX #### [facility] [address] [place] [address] Dr. Marvin Reis UA PROTEIN Negative Normal NEGATIVE/ TRACE [facility] Comment on above: Performed By: #### U RCX #### [facility] [address] [place] [address] Dr. Marvin Reis Urobilinogen Qn (U) 0.2 {Robbie'U}/dL Normal 0.2 - 1. 0 [facility] Comment on above: Performed By: #### U RCX #### [facility] [address] [place] [address] Dr. Marvin Reis WBC 20-50 Abnormal NONE SEEN [facility] Comment on above: Performed By: #### U RCX #### [facility] [address] [place] [address] Dr. Marvin Reis YEAST PRESENT Abnormal NONE SEEN [facility] Comment on above: Performed By: #### U RCX #### [facility] [address] [place] [address] Dr. Marvin Reis CULTURE URINEon 03-18-2022 CULTURE URINE Culture Observations : No growth Normal [facility] Comment on above: Performed By: #### U RCX #### [facility] [address] [place] [address] Dr. Marvin Reis UA RANDOM W/MICROSCOPICon BACTERIA NONE SEEN Normal NONE SEEN [facility] Comment on above: Performed By: #### U AMIC #### [facility] [address] [address] [address] Marvin Reis Bilirubin Ql (U) Negative Normal NEGATIVE [facility] Comment on above: Performed By: #### U AMIC #### [facility] [address] [address] [address] Marvin Reis CAST NONE SEEN Normal NONE SEEN [facility] Comment on above: Performed By: #### U AMIC #### [facility] [address] [place] [address] Dr. Marvin Reis Clarity (U) CLOUDY Abnormal CLEAR [facility] Comment on above: Performed By: #### U AMIC #### [facility] [address] [address] [address] Marvin Reis Color (U) LT. YELLOW Normal YELLOW [facility] Comment on above: Performed By: #### U AMIC #### [facility] [address] [place] [address] Dr. Marvin Reis Crystals LM Nom (Urine sed) NONE SEEN Normal NONE SEEN [facility] Comment on above: Performed By: #### U AMIC #### [facility] [address] [place] [address] Dr. Marvin Reis Epithelial cells LM Ql (Urine sed) RARE Normal NONE SEEN /RARE [facility] Comment on above: Performed By: #### U AMIC #### [facility] [address] [place] [address] Dr. Marvin Reis Glucose Ql (U) Negative Normal NEGATIVE [facility] Comment on above: Performed By: #### U AMIC #### [facility] [address] [place] [address] Dr. Marvin Reis Hemoglobin Ql (U) TRACE-INTACT Abnormal NEGATIVE [facility] Comment on above: Performed By: #### U AMIC #### [facility] [address] [place] [address] Dr. Marvin Reis Ketones Ql (U) Negative Normal NEGATIVE [facility] Comment on above: Performed By: #### U AMIC #### [facility] [address] [place] [address] Dr. Marvin Reis LEUKOCYTES MODERATE Abnormal NEGATIVE [facility] Comment on above: Performed By: #### U AMIC #### [facility] [address] [address] [address] Marvin Reis MUCOUS NONE SEEN Normal NONE SEEN [facility] Comment on above: Performed By: #### U AMIC #### [facility] [address] [address] [address] Marvin Reis Nitrite Ql (U) Negative Normal NEGATIVE [facility] Comment on above: Performed By: #### U AMIC #### [facility] [address] [address] [address] Marvin Reis pH (U) 6.0 [pH] Normal 5-9 [facility] Comment on above: Performed By: #### U AMIC #### [facility] [address] [place] [address] Dr. Marvin Reis RBC NONE SEEN Abnormal 0-2 [facility] Comment on above: Performed By: #### U AMIC #### [facility] [address] [place] [address] Dr. Marvin Reis SPEC GRAVITY 1.015 Normal 1.005-<=1.025 [facility] Comment on above: Performed By: #### U AMIC #### [facility] [address] [address] [address] Marvin Reis UA PROTEIN Negative Normal NEGATIVE/ TRACE [facility] Comment on above: Performed By: #### U AMIC #### [facility] [address] [address] [address] Marvin Reis Urobilinogen Qn (U) 0.2 {Robbie'U}/dL Normal 0.2 - 1. 0 [facility] Comment on above: Performed By: #### U AMIC #### [facility] [address] [place] [address] Dr. Marvin Reis WBC 10-20 Abnormal NONE SEEN [facility] Comment on above: Performed By: #### U AMIC #### [facility] [address] [place] [address] Dr. Marvin Reis Coding Summary.on 06-21-2020 Coding Summary. CODING DATE: 06/21/[address] [facility] STATUS: PAYOR: Worker's Compensation ADMIT [...] Date Saved: 06/21/2020 12:01 pm [facility] PT - Assessmentson 0 PT - Assessments [id number]# 1.00CD:127 [facility] PT - Orderson 06-20-2020 PT - Orders [id number]# 1.00CD:127 [facility] PT - Workers Compon 06-20-20 20 PT - Workers Comp [id number]# 1.00CD:127 [facility] Encounters Encounter Date Encounter Type Care Provider Facility Start: 03-10-2023 End: 03-11-2023 [facility] Start: 03-03-2023 End: 03-03-[address] [...] Start: 06-25-2022 End: 06-26-[address] LAWANDA GORVE . Facility[facility] Start: 05-23-2022 End: 05-23-[address] LAWANDA GROVE . Facility[facility] Start: 04-16-2022 End: 04-16-[address] LAWANDA GROVE . Facility[facility] Start: 03-25-2022 End: 03-25-[address] LAWANDA GROVE . Facility[facility] Start: 03-18-2022 End: 03-18-[address] LAWANDA GROVE . Facility[facility] Payers Date Payer Category Payer Medicare [id number] 1961 Unknown [id number] 1960 Unknown [id number] 2.16.84 0.1.519411.3.579.2.593 1960 Unknown [id number] 2.16.84 0.1.528942.3.579.2.593 1958 Unknown [id number] 2.16.84 0.1.130263.3.579.2.593 1958 Unknown [id number] 2.16.84 0.1.918049.3.579.2.593 1958 Unknown [id number] 2.16.84 0.1.870675.3.579.2.593 1958 Unknown [id number] 2.16.84 0.1.672335.3.579.2.593 1958 Unknown [id number] 2.16.84 0.1.230950.3.579.2.593 1958 Unknown [id number] 2.16.84 0.1.062664.3.579.2.593 1958 Unknown [id number] 2.16.84 0.1.820406.3.579.2.593 1958 Unknown [id number] 2.16.84 0.1.740116.3.579.2.593 1958 Unknown [id number] 2.16.84 0.1.124174.3.579.2.593 1958 Unknown [id number] 2.16.84 0.1.454525.3.579.2.593 1958 Unknown [id number] 2.16.84 0.1.592180.3.579.2.593 1958 Unknown [id number] 2.16.84 0.1.861777.3.579.2.593 1958 Unknown [id number] 2.16.84 0.1.917183.3.579.2.593 1958 Unknown [id number] 2.16.84 0.1.993345.3.579.2.593 1958 Unknown [id number] 2.16.84 0.1.963820.3.579.2.593 1958 Unknown [id number] 2.16.84 0.1.754104.3.579.2.593 1958 Unknown [id number] 2.16.84 0.1.536337.3.579.2.593 Summary Purpose Family History No Family History [...] CREATED AUTHOR 09/19/2020 [facility] DATE CREATED AUTHOR AUTHOR'S ORGANIZ ATION 03/06/2023 [facility] DATE CREATED AUTHOR AUTHOR'S ORGANIZ ATION 03/11/2023 [facility] DATE CREATED AUTHOR AUTHOR'S ORGANIZ ATION 06/07/2023 [facility] FOR RECORDS PERTAINING TO PATIENTS WHO [...] BE BASED ON THE PRIMARY CLINICAL RECORDS. [facility]. provides no warranty or guarantee of the accuracy or completeness of information in this document.
[2024-08-20] MEDS: SODIUM BICARBONATE 8.4 % 50 MEQ/50 ML SYRINGE IV (07:32)
[2024-08-20] MEDS: LINEZOLID IN DEXTROSE 5% 600 MG/300 ML PIGGYBACK 300 MG IV (08:24)
--- OUTSIDE RECORDS SUMMARY | 2024-08-20 08:49 | XMS_ITS | CCD ---
Author Organization [facility] Care Team Providers Care Trailer Body Assembler Name Role Phone HOY ., DR WEBBER Consulting Unavailable HOY ., DR WBEBER Admitting Unavailable HOY ., DR WEBBER Attending [...] Unavailable HOY ., DR WEBBER Admherman Unavailable [place], DR MAGY [place] Consult[employer] Unavailable HOY ., DR WEBBER Consulting [...] source) ceFAZolin Drug Allergy 04-21-20 13 [facility] (1 source) Cilastatin / Imipenem Drug Allergy 04-21-20 13 [facility] (1 source) Readi-Cat Drug allergy (disorder) 04-21-20 13 [facility] (1 source) ceFAZolin; Translations: [CEFAZOLIN] Drug Allergy 12-01-19 13 [facility] Repository (1 source) Cephalexin; Translations: [CEPHALEXIN MONOHYDRATE] Drug Allergy 08-03-20 09 [facility] Repository (1 source) Promazine; Translations: [PROMAZINE] Drug Allergy 12-01-19 13 [facility] Repository (1 source) Sulfamethoxazole / Trimethoprim; Translations: [SULFAMETHOXAZOLE-TR IMETHOPRIM] Drug Allergy 03-10-20 23 [facility] Repository (1 source) IODINATED CONTRAST MEDIA; Translations: [IODINATED CONTRAST MEDIA] Propensity to adverse reactions to drug (disorder) 12-01-19 13 [facility] Rep[facility] Problems Active Problems Problem Classification Problem [...] RESISTANT TO ALL B-LACTAM DRUGS. PERFORMED BY: [place] [address] PATHOLOGIST GRADUATE NURSE MARLA VEGA M.D. [facility] Comment on above: Performed By: #### A MAI LAYNE #### [place] [id number] [place] Gram Stainon 06-03-2023 Microscopic observation Gram stain Nom (Unsp spec) Gram Stain Result No Bacteria Seen PERFORMED BY: [place] [address] PATHOLOGIST GRADUATE NURSE MARLA VEGA M.D. [facility] Comment on above: Performed By: #### A MAI LAYNE #### [place] [id number] [place] CULTURE URINEon 03-06-2023 CULTURE URINE Isolate [...] F Levofloxacin 2 S F Normal [facility] Comment on above: Performed By: #### U RCX #### [facility] [address] [place] [address] Dr. Marvin Reis UA RANDOM W/MICROSCOPICon BACTERIA SMALL Abnormal NONE SEEN [facility] Comment on above: Performed By: #### U AMIC #### [facility] [address] [place] [address] Dr. Marvin Reis Bilirubin Ql (U) Negative Normal NEGATIVE The [facility] Comment on above: Performed By: #### U AMIC #### [facility] [address] [place] [address] Dr. Marvin Reis CAST NONE SEEN Normal NONE SEEN [facility] Comment on above: Performed By: #### U AMIC #### [facility] [address] [place] [address] Dr. Marvin Reis Clarity (U) CLEAR Normal CLEAR [facility] Comment on above: Performed By: #### U AMIC #### [facility] [address] [place] [address] Dr. Marvin Reis Color (U) LT. YELLOW Normal YELLOW [facility] Comment on above: Performed By: #### U AMIC #### [facility] [address] [place] [address] [address] Marvin Reis Crystals LM Nom (Urine sed) NONE SEEN Normal NONE SEEN [facility] Comment on above: Performed By: #### U AMIC #### [facility] [address] [place] [address] Dr. Marvin Reis Epithelial cells LM Ql (Urine sed) RARE Normal NONE SEEN /RARE [facility] Comment on above: Performed By: #### U AMIC #### [facility] [address] [address] [address] Marvin Reis Glucose Ql (U) Negative Normal NEGATIVE The [facility] Comment on above: Performed By: #### U AMIC #### [facility] [address] [place] [address] Dr. Marvin Reis Hemoglobin Ql (U) Negative Normal NEGATIVE The [facility] Comment on above: Performed By: #### U AMIC #### [facility] [address] [place] [address] Dr. Marvin Reis Ketones Ql (U) Negative Normal NEGATIVE [facility] Comment on above: Performed By: #### U AMIC #### [facility] [address] [place] [address] Dr. Marvin Reis LEUKOCYTES SMALL Abnormal NEGATIVE [facility] Comment on above: Performed By: #### U AMIC #### [facility] [address] [place] [address] Dr. Marvin Reis MUCOUS NONE SEEN Normal NONE SEEN [facility] Comment on above: Performed By: #### U AMIC #### [facility] [address] [place] [address] Dr. Marvin Reis Nitrite Ql (U) Negative Normal NEGATIVE [facility] Comment on above: Performed By: #### U AMIC #### [facility] [address] [place] [address] Dr. Marvin Reis pH (U) 6.0 [pH] Normal 5-9 [facility] Comment on above: Performed By: #### U AMIC #### [facility] [address] [place] [address] Dr. Marvin Reis RBC 0-2 Normal 0-2 [facility] Comment on above: Performed By: #### U AMIC #### [facility] [address] [place] [address] Dr. Marvin Reis SPEC GRAVITY 1.010 Normal 1.005-<=1.025 [facility] Comment on above: Performed By: #### U AMIC #### [facility] [address] [address] [address] Marvin Reis UA PROTEIN Negative Normal NEGATIVE/ TRACE [facility] Comment on above: Performed By: #### U AMIC #### [facility] [address] [place] [address] Dr. Marvin Reis Urobilinogen Qn (U) 0.2 {Robbie'U}/dL Normal 0.2 - 1. 0 [facility] Comment on above: Performed By: #### U AMIC #### [facility] [address] [place] [address] Dr. Marvin Reis WBC 5-10 Abnormal NONE SEEN [facility] Comment on above: Performed By: #### U AMIC #### [facility] [address] [place] [address] Dr. Marvin Reis CULTURE URINEon 02-13-2023 CULTURE [...] F Levofloxacin 2 S F Normal [facility] Comment on above: Performed By: #### U RCX #### [facility] [address] [place] [address] Dr. Marvin Reis UA RANDOM W/MICROSCOPICon BACTERIA MODERATE Abnormal NONE SEEN [facility] Comment on above: Performed By: #### U AMIC #### [facility] [address] [place] [address] Dr. Marvin Reis Bilirubin Ql (U) Negative Normal NEGATIVE [facility] Comment on above: Performed By: #### U AMIC #### [facility] [address] [place] [address] Dr. Marvin Reis CAST NONE SEEN Normal NONE SEEN [facility] Comment on above: Performed By: #### U AMIC #### [facility] [address] [place] [address] Dr. Marvin Reis Clarity (U) CLEAR Normal CLEAR [facility] Comment on above: Performed By: #### U AMIC #### [facility] [address] [place] [address] Dr. Marvin Reis Color (U) LT. YELLOW Normal YELLOW [facility] Comment on above: Performed By: #### U AMIC #### [facility] [address] [place] [address] Dr. Marvin Reis Crystals LM Nom (Urine sed) NONE SEEN Normal NONE SEEN [facility] Comment on above: Performed By: #### U AMIC #### [facility] [address] [place] [address] Dr. Marvin Reis Epithelial cells LM Ql (Urine sed) MODERATE Abnormal NONE SEEN /RARE [facility] Comment on above: Performed By: #### U AMIC #### [facility] [address] [place] [address] Dr. Marvin Reis Glucose Ql (U) Negative Normal NEGATIVE [facility] Comment on above: Performed By: #### U AMIC #### [facility] [address] [place] [address] Dr. Mravin Reis Hemoglobin Ql (U) SMALL Abnormal NEGATIVE The [facility] Comment on above: Performed By: #### U AMIC #### [facility] [address] [address] [address] Marvin Reis Ketones Ql (U) Negative Normal NEGATIVE [facility] Comment on above: Performed By: #### U AMIC #### [facility] [address] [address] [address] Marvin Reis LEUKOCYTES LARGE Abnormal NEGATIVE [facility] Comment on above: Performed By: #### U AMIC #### [facility] [address] [address] [address] Marvin Reis MUCOUS NONE SEEN Normal NONE SEEN [facility] Comment on above: Performed By: #### U AMIC #### [facility] [address] [place] [address] Dr. Marvin Reis Nitrite Ql (U) Positive Abnormal NEGATIVE [facility] Comment on above: Performed By: #### U AMIC #### [facility] [address] [address] [address] Marvin Reis pH (U) 5.5 [pH] Normal 5-9 [facility] Comment on above: Performed By: #### U AMIC #### [facility] [address] [address] [address] Marvin Reis RBC 5-10 Abnormal 0-2 [facility] Comment on above: Performed By: #### U AMIC #### [facility] [address] [address] [address] Marvin Reis SPEC GRAVITY 1.015 Normal 1.005-<=1.025 [facility] Comment on above: Performed By: #### U AMIC #### [facility] [address] [address] [address] Marvin Reis UA PROTEIN Negative Normal NEGATIVE/ TRACE [facility] Comment on above: Performed By: #### U AMIC #### [facility] [address] [place] [address] Dr. Marvin Reis Urobilinogen Qn (U) 0.2 {Robbie'U}/dL Normal 0.2 - 1. 0 [facility] Comment on above: Performed By: #### U AMIC #### [facility] [address] [place] [address] Dr. Marvin Reis WBC 50-75 Abnormal NONE SEEN [facility] Comment on above: Performed By: #### U AMIC #### [facility] [address] [id number] Marvin Reis CULTURE URINEon 01-23-2023 CULTURE [...] Trimethoprim/Sulfamet hoxazole <=10 S F Normal [facility] Comment on above: Performed By: #### U AMIC #### [facility] [address] [place] [address] Dr. Marvin Reis UA RANDOM W/MICROSCOPICon BACTERIA TRACE Abnormal NONE SEEN [facility] Comment on above: Performed By: #### U AMIC #### [facility] [address] [place] [address] Dr. Marvin Reis Bilirubin Ql (U) Negative Normal NEGATIVE The [facility] Comment on above: Performed By: #### U AMIC #### [facility] [address] [address] [address] Marvin Reis CAST NONE SEEN Normal NONE SEEN [facility] Comment on above: Performed By: #### U AMIC #### [facility] [address] [address] [address] Marvin Reis Clarity (U) SL CLOUDY Abnormal CLEAR [facility] Comment on above: Performed By: #### U AMIC #### [facility] [address] [address] [address] Marvin Reis Color (U) LT. YELLOW Normal YELLOW [facility] Comment on above: Performed By: #### U AMIC #### [facility] [address] [place] [address] Dr. Marvin Reis Crystals LM Nom (Urine sed) NONE SEEN Normal NONE SEEN [facility] Comment on above: Performed By: #### U AMIC #### [facility] [address] [place] [address] Dr. Marvin Reis Epithelial cells LM Ql (Urine sed) NONE SEEN Normal NONE SEEN /RARE [facility] Comment on above: Performed By: #### U AMIC #### [facility] [address] [place] [address] Dr. Marvin Reis Glucose Ql (U) Negative Normal NEGATIVE [facility] Comment on above: Performed By: #### U AMIC #### [facility] [address] [address] [address] Marvin Reis Hemoglobin Ql (U) Negative Normal NEGATIVE The [facility] Comment on above: Performed By: #### U AMIC #### [facility] [address] [address] [address] Marvin Reis Ketones Ql (U) Negative Normal NEGATIVE [facility] Comment on above: Performed By: #### U AMIC #### [facility] [address] [place] [address] Dr. Marvin Reis LEUKOCYTES TRACE Abnormal NEGATIVE [facility] Comment on above: Performed By: #### U AMIC #### [facility] [address] [address] [address] Marvin Reis MUCOUS NONE SEEN Normal NONE SEEN [facility] Comment on above: Performed By: #### U AMIC #### [facility] [address] [place] [address] Dr. Marvin Reis Nitrite Ql (U) Negative Normal NEGATIVE [facility] Comment on above: Performed By: #### U AMIC #### [facility] [address] [place] [address] Dr. Marvin Reis pH (U) 6.0 [pH] Normal 5-9 [facility] Comment on above: Performed By: #### U AMIC #### [facility] [address] [place] [address] Dr. Marvin Reis RBC NONE SEEN Abnormal 0-2 [facility] Comment on above: Performed By: #### U AMIC #### [facility] [address] [place] [address] Dr. Marvin Reis SPEC GRAVITY 1.020 Normal 1.005-<=1.025 [facility] Comment on above: Performed By: #### U AMIC #### [facility] [address] [place] [address] Dr. Marvin Reis UA PROTEIN Negative Normal NEGATIVE/ TRACE [facility] Comment on above: Performed By: #### U AMIC #### [facility] [address] [place] [address] Dr. Marvin Reis Urobilinogen Qn (U) 0.2 {Robbie'U}/dL Normal 0.2 - 1. 0 [facility] Comment on above: Performed By: #### U AMIC #### [facility] [address] [place] [address] Dr. Marvin Reis WBC 10-20 Abnormal NONE SEEN [facility] Comment on above: Performed By: #### U AMIC #### [facility] [address] [place] [address] Dr. Marvin Reis CULTURE URINEon 01-07-2023 CULTURE URINE Isolate 1 Dawna albicans 10,000 cfu/mL of Normal [facility] Comment on above: Performed By: #### U RCX #### [facility] [address] [address] [address] Marvin Reis UA RANDOM W/MICROSCOPICon BACTERIA TRACE Abnormal NONE SEEN [facility] Comment on above: Performed By: #### U AMIC #### [facility] [address] [address] [address] Marvin Reis Bilirubin Ql (U) Negative Normal NEGATIVE The [facility] Comment on above: Performed By: #### U AMIC #### [facility] [address] [address] [address] Marvin Reis CA OX CRYSTALS RARE Normal [facility] Comment on above: Performed By: #### U AMIC #### [facility] [address] [address] [address] Marvin Reis CAST NONE SEEN Normal NONE SEEN [facility] Comment on above: Performed By: #### U AMIC #### [facility] [address] [address] [address] Marvin Reis Clarity (U) CLEAR Normal CLEAR [facility] Comment on above: Performed By: #### U AMIC #### [facility] [address] [address] [address] Marvin Reis Color (U) LT. YELLOW Normal YELLOW [facility] Comment on above: Performed By: #### U AMIC #### [facility] [address] [address] [address] Marvin Reis Crystals LM Nom (Urine sed) SEEN Abnormal NONE SEEN [facility] Comment on above: Performed By: #### U AMIC #### [facility] [address] [address] [address] Marvin Reis Epithelial cells LM Ql (Urine sed) FEW Abnormal NONE SEEN /RARE [facility] Comment on above: Performed By: #### U AMIC #### [facility] [address] [address] [address] Marvin Reis Glucose Ql (U) Negative Normal NEGATIVE [facility] Comment on above: Performed By: #### U AMIC #### [facility] [address] [address] [address] Marvin Reis Hemoglobin Ql (U) Negative Normal NEGATIVE The [facility] Comment on above: Performed By: #### U AMIC #### [facility] [address] [address] [address] Marvin Reis Ketones Ql (U) Negative Normal NEGATIVE [facility] Comment on above: Performed By: #### U AMIC #### [facility] [address] [address] [address] Marvin Reis LEUKOCYTES SMALL Abnormal NEGATIVE The [facility] Comment on above: Performed By: #### U AMIC #### [facility] [address] [place] [address] Dr. Marvin Reis MUCOUS NONE SEEN Normal NONE SEEN [facility] Comment on above: Performed By: #### U AMIC #### [facility] [address] [place] [address] Dr. Marvin Reis Nitrite Ql (U) Negative Normal NEGATIVE [facility] Comment on above: Performed By: #### U AMIC #### [facility] [address] [place] [address] Dr. Marvin Reis pH (U) 5.5 [pH] Normal 5-9 [facility] Comment on above: Performed By: #### U AMIC #### [facility] [address] [place] [address] Dr. Marvin Reis RBC 0-2 Normal 0-2 [facility] Comment on above: Performed By: #### U AMIC #### [facility] [address] [place] [address] Dr. Marvin Reis SPEC GRAVITY 1.015 Normal 1.005-<=1.025 [facility] Comment on above: Performed By: #### U AMIC #### [facility] [address] [place] [address] Dr. Marvin Reis UA PROTEIN Negative Normal NEGATIVE/ TRACE [facility] Comment on above: Performed By: #### U AMIC #### [facility] [address] [place] [address] Dr. Marvin Reis Urobilinogen Qn (U) 0.2 {Robbie'U}/dL Normal 0.2 - 1. 0 [facility] Comment on above: Performed By: #### U AMIC #### [facility] [address] [place] [address] Dr. Marvin Reis WBC 50-75 Abnormal NONE SEEN The [facility] Comment on above: Performed By: #### U AMIC #### [facility] [address] [place] [address] Dr. Marvin Reis YEAST PRESENT Abnormal NONE SEEN [facility] Comment on above: Performed By: #### U AMIC #### [facility] [address] [place] [address] Dr. Marvin Reis CULTURE URINEon 12-25-2022 CULTURE [...] Trimethoprim/Sulfamet hoxazole >=320 R F Normal [facility] Comment on above: Performed By: #### U RCX #### [facility] [address] [place] [address] Dr. Marvin Reis UA RANDOM W/MICROSCOPICon BACTERIA NONE SEEN Normal NONE SEEN [facility] Comment on above: Performed By: #### U AMIC #### [facility] [address] [place] [address] Dr. Marvin Reis Bilirubin Ql (U) Negative Normal NEGATIVE The [facility] Comment on above: Performed By: #### U AMIC #### [facility] [address] [place] [address] Dr. Marvin Reis CAST NONE SEEN Normal NONE SEEN [facility] Comment on above: Performed By: #### U AMIC #### [facility] [address] [place] [address] Dr. Marvin Reis Clarity (U) CLEAR Normal CLEAR [facility] Comment on above: Performed By: #### U AMIC #### [facility] [address] [address] [address] Marvin Reis Color (U) LT. YELLOW Normal YELLOW [facility] Comment on above: Performed By: #### U AMIC #### [facility] [address] [place] [address] Dr. Marvin Reis Crystals LM Nom (Urine sed) NONE SEEN Normal NONE SEEN [facility] Comment on above: Performed By: #### U AMIC #### [facility] [address] [place] [address] Dr. Marvin Reis Epithelial cells LM Ql (Urine sed) RARE Normal NONE SEEN /RARE [facility] Comment on above: Performed By: #### U AMIC #### [facility] [address] [place] [address] Dr. Marvin Reis Glucose Ql (U) Negative Normal NEGATIVE [facility] Comment on above: Performed By: #### U AMIC #### [facility] [address] [place] [address] Dr. Marvin Reis Hemoglobin Ql (U) Negative Normal NEGATIVE The [facility] Comment on above: Performed By: #### U AMIC #### [facility] [address] [address] [address] Marvin Reis Ketones Ql (U) Negative Normal NEGATIVE [facility] Comment on above: Performed By: #### U AMIC #### [facility] [address] [place] [address] Dr. Marvin Reis LEUKOCYTES MODERATE Abnormal NEGATIVE [facility] Comment on above: Performed By: #### U AMIC #### [facility] [address] [place] [address] Dr. Marvin Reis MUCOUS NONE SEEN Normal NONE SEEN [facility] Comment on above: Performed By: #### U AMIC #### [facility] [address] [place] [address] Dr. Marvin Reis Nitrite Ql (U) Negative Normal NEGATIVE [facility] Comment on above: Performed By: #### U AMIC #### [facility] [address] [place] [address] Dr. Marvin Reis pH (U) 5.5 [pH] Normal 5-9 [facility] Comment on above: Performed By: #### U AMIC #### [facility] [address] [place] [address] Dr. Marvin Reis RBC NONE SEEN Abnormal 0-2 [facility] Comment on above: Performed By: #### U AMIC #### [facility] [address] [place] [address] Dr. Marvin Reis SPEC GRAVITY 1.015 Normal 1.005-<=1.025 [facility] Comment on above: Performed By: #### U AMIC #### [facility] [address] [place] [address] Dr. Marvin Reis UA PROTEIN Negative Normal NEGATIVE/ TRACE [facility] Comment on above: Performed By: #### U AMIC #### [facility] [address] [place] [address] Dr. Marvin Reis Urobilinogen Qn (U) 0.2 {Robbie'U}/dL Normal 0.2 - 1. 0 [facility] Comment on above: Performed By: #### U AMIC #### [facility] [address] [place] [address] Dr. Marvin Reis WBC 10-20 Abnormal NONE SEEN [facility] Comment on above: Performed By: #### U AMIC #### [facility] [address] [place] [address] Dr. Marvin Reis CULTURE URINEon 12-05-2022 CULTURE [...] Trimethoprim/Sulfamet hoxazole <=20 S F Normal [facility] Comment on above: Performed By: #### U RCX #### [facility] [address] [place] [address] Dr. Marvin Reis CREATININEon 12-03-2022 Creatinine [Mass/Vol] 0.88 mg/dL Normal 0.70-1.30 [facility] Comment on above: Performed By: #### U RCX #### [facility] [address] [place] [address] Dr. Marvin Reis EGFR-AF CUBAN >60 Normal >=60 [facility] Comment on above: Performed By: #### U RCX #### [facility] [address] [place] [address] Dr. Marvin Reis EGFR-NON AF CUBAN >60 Normal >=60 [facility] Comment on above: Performed By: #### U RCX #### [facility] [address] [place] [address] ABDOMEN WO/W CONon [...] ELENO PARKER Date: 2022-12-03 14:51 Normal [facility] UA RANDOM W/MICROSCOPICon BACTERIA TRACE Abnormal NONE SEEN [facility] Comment on above: Performed By: #### U RCX #### [facility] [address] [place] [address] Dr. Marvin Reis Bilirubin Ql (U) Negative Normal NEGATIVE The [facility] Comment on above: Performed By: #### U RCX #### [facility] [address] [place] [address] Dr. Marvin Reis CAST NONE SEEN Normal NONE SEEN [facility] Comment on above: Performed By: #### U RCX #### [facility] [address] [place] [address] Dr. Marvin Reis Clarity (U) CLEAR Normal CLEAR [facility] Comment on above: Performed By: #### U RCX #### [facility] [address] [place] [address] Dr. Marvin Reis Color (U) LT. YELLOW Normal YELLOW [facility] Comment on above: Performed By: #### U RCX #### [facility] [address] [place] [address] Dr. Marvin Reis Crystals LM Nom (Urine sed) NONE SEEN Normal NONE SEEN [facility] Comment on above: Performed By: #### U RCX #### [facility] [address] [place] [address] Dr. Marvin Reis Epithelial cells LM Ql (Urine sed) RARE Normal NONE SEEN /RARE [facility] Comment on above: Performed By: #### U RCX #### [facility] [address] [address] [address] Marvin Reis Glucose Ql (U) Negative Normal NEGATIVE [facility] Comment on above: Performed By: #### U RCX #### [facility] [address] [address] [address] Marvin Reis Hemoglobin Ql (U) TRACE-INTACT Abnormal NEGATIVE [facility] Comment on above: Performed By: #### U RCX #### [facility] [address] [address] [address] Marvin Reis Ketones Ql (U) Negative Normal NEGATIVE [facility] Comment on above: Performed By: #### U RCX #### [facility] [address] [place] [address] Dr. Marvin Reis LEUKOCYTES TRACE Abnormal NEGATIVE [facility] Comment on above: Performed By: #### U RCX #### [facility] [address] [address] [address] Marvin Reis MUCOUS TRACE Abnormal NONE SEEN [facility] Comment on above: Performed By: #### U RCX #### [facility] [address] [place] [address] Dr. Marvin Reis Nitrite Ql (U) Negative Normal NEGATIVE [facility] Comment on above: Performed By: #### U RCX #### [facility] [address] [address] [address] Marvin Reis pH (U) 5.0 [pH] Normal 5-9 [facility] Comment on above: Performed By: #### U RCX #### [facility] [address] [address] [address] Marvin Reis RBC 0-2 Normal 0-2 [facility] Comment on above: Performed By: #### U RCX #### [facility] [address] [place] [address] Dr. Marvin Reis SPEC GRAVITY 1.010 Normal 1.005-<=1.025 [facility] Comment on above: Performed By: #### U RCX #### [facility] [address] [place], [place] [address] Dr. Marvin Reis UA PROTEIN TRACE Normal NEGATIVE/ TRACE [facility] Comment on above: Performed By: #### U RCX #### [facility] [address] [place], [place] [address] Dr. Marvin Reis Urobilinogen Qn (U) 0.2 {Robbie'U}/dL Normal 0.2 - 1. 0 [facility] Comment on above: Performed By: #### U RCX #### [facility] [address] [address] [address] Marvin Reis WBC 2-5 Abnormal NONE SEEN [facility] Comment on above: Performed By: #### U RCX #### [facility] [address] [address] [address] ABD/PELVIS WO CONon [...] MAGY COMER Date: 2022-11-20 14:51 Normal [facility] CULTURE URINEon 11-11-2022 CULTURE URINE Culture Observations : GUSTABO TO FOLLOW. Isolate 1 Enterobacter aerogenes >100,000 cfu/mL of Normal [facility] Comment on above: Performed By: #### U RCX #### [facility] [address] [place] [address] Dr. Marvin Reis UA RANDOM W/MICROSCOPICon BACTERIA SMALL Abnormal NONE SEEN [facility] Comment on above: Performed By: #### U AMIC #### [facility] [address] [place] [address] Dr. Marvin Reis Bilirubin Ql (U) Negative Normal NEGATIVE [facility] Comment on above: Performed By: #### U AMIC #### [facility] [address] [place] [address] Dr. Marvin Reis CAST NONE SEEN Normal NONE SEEN [facility] Comment on above: Performed By: #### U AMIC #### [facility] [address] [place] [address] Dr. Marvin Reis Clarity (U) CLOUDY Abnormal CLEAR [facility] Comment on above: Performed By: #### U AMIC #### [facility] [address] [place] [address] Dr. Marvin Reis Color (U) LT. YELLOW Normal YELLOW [facility] Comment on above: Performed By: #### U AMIC #### [facility] [address] [address] [address] Marvin Reis Crystals LM Nom (Urine sed) NONE SEEN Normal NONE SEEN [facility] Comment on above: Performed By: #### U AMIC #### [facility] [address] [address] [address] Marvin Reis Epithelial cells LM Ql (Urine sed) NONE SEEN Normal NONE SEEN /RARE [facility] Comment on above: Performed By: #### U AMIC #### [facility] [address] [address] [address] Marvin Reis Glucose Ql (U) Negative Normal NEGATIVE [facility] Comment on above: Performed By: #### U AMIC #### [facility] [address] [place] [address] Dr. Marvin Reis Hemoglobin Ql (U) TRACE-INTACT Abnormal NEGATIVE [facility] Comment on above: Performed By: #### U AMIC #### [facility] [address] [address] [address] aMrvin Reis Ketones Ql (U) Negative Normal NEGATIVE [facility] Comment on above: Performed By: #### U AMIC #### [facility] [address] [address] [address] Marvin Reis LEUKOCYTES LARGE Abnormal NEGATIVE [facility] Comment on above: Performed By: #### U AMIC #### [facility] [address] [address] [address] Marvin Reis MUCOUS NONE SEEN Normal NONE SEEN [facility] Comment on above: Performed By: #### U AMIC #### [facility] [address] [place] [address] Dr. Marvin Reis Nitrite Ql (U) Positive Abnormal NEGATIVE [facility] Comment on above: Performed By: #### U AMIC #### [facility] [address] [place] [address] Dr. Marvin Reis pH (U) 5.5 [pH] Normal 5-9 [facility] Comment on above: Performed By: #### U AMIC #### [facility] [address] [place] [address] Dr. Marvin Reis RBC 0-2 Normal 0-2 [facility] Comment on above: Performed By: #### U AMIC #### [facility] [address] [place] [address] Dr. Mavrin Reis SPEC GRAVITY 1.015 Normal 1.005-<=1.025 [facility] Comment on above: Performed By: #### U AMIC #### [facility] [address] [place] [address] Dr. Marvin Reis UA PROTEIN Negative Normal NEGATIVE/ TRACE [facility] Comment on above: Performed By: #### U AMIC #### [facility] [address] [place] [address] Dr. Marvin Reis Urobilinogen Qn (U) 0.2 {Robbie'U}/dL Normal 0.2 - 1. 0 [facility] Comment on above: Performed By: #### U AMIC #### [facility] [address] [place] [address] Dr. Marvin Reis WBC 10-20 Abnormal NONE SEEN [facility] Comment on above: Performed By: #### U AMIC #### [facility] [address] [place] [address] Dr. Marvin Reis CULTURE URINEon 10-24-2022 CULTURE [...] Trimethoprim/Sulfamet hoxazole <=20 S F Normal [facility] Comment on above: Performed By: #### U RCX #### [facility] [address] [place] [address] Dr. Marvin Reis UA RANDOM W/MICROSCOPICon BACTERIA LARGE Abnormal NONE SEEN [facility] Comment on above: Performed By: #### U AMIC #### [facility] [address] [address] [address] Marvin Reis Bilirubin Ql (U) Negative Normal NEGATIVE [facility] Comment on above: Performed By: #### U AMIC #### [facility] [address] [address] [address] Marvin Reis CAST NONE SEEN Normal NONE SEEN [facility] Comment on above: Performed By: #### U AMIC #### [facility] [address] [address] [address] Marvin Reis Clarity (U) SL CLOUDY Abnormal CLEAR [facility] Comment on above: Performed By: #### U AMIC #### [facility] [address] [address] [address] Marvin Reis Color (U) YELLOW Normal YELLOW [facility] Comment on above: Performed By: #### U AMIC #### [facility] [address] [address] [address] Marvin Reis Crystals LM Nom (Urine sed) NONE SEEN Normal NONE SEEN [facility] Comment on above: Performed By: #### U AMIC #### [facility] [address] [address] [address] Marvin Reis Epithelial cells LM Ql (Urine sed) FEW Abnormal NONE SEEN /RARE [facility] Comment on above: Performed By: #### U AMIC #### [facility] [address] [address] [address] Marvin Reis Glucose Ql (U) Negative Normal NEGATIVE [facility] Comment on above: Performed By: #### U AMIC #### [facility] [address] [address] [address] Marvin Reis Hemoglobin Ql (U) TRACE-INTACT Abnormal NEGATIVE [facility] Comment on above: Performed By: #### U AMIC #### [facility] [address] [address] [address] Marvin Reis Ketones Ql (U) Negative Normal NEGATIVE [facility] Comment on above: Performed By: #### U AMIC #### [facility] [address] [address] [address] Marvin Reis LEUKOCYTES LARGE Abnormal NEGATIVE [facility] Comment on above: Performed By: #### U AMIC #### [facility] [address] [address] [address] Marvin Reis MUCOUS NONE SEEN Normal NONE SEEN [facility] Comment on above: Performed By: #### U AMIC #### [facility] [address] [address] [address] Marvin Reis Nitrite Ql (U) Negative Normal NEGATIVE [facility] Comment on above: Performed By: #### U AMIC #### [facility] [address] [address] [address] Marvin Reis pH (U) 5.0 [pH] Normal 5-9 [facility] Comment on above: Performed By: #### U AMIC #### [facility] [address] [address] [address] Marvin Reis RBC 5-10 Abnormal 0-2 [facility] Comment on above: Performed By: #### U AMIC #### [facility] [address] [address] [address] Marvin Reis SPEC GRAVITY 1.010 Normal 1.005-<=1.025 [facility] Comment on above: Performed By: #### U AMIC #### [facility] [address] [place] [address] Dr. Marvin Reis UA PROTEIN Negative Normal NEGATIVE/ TRACE [facility] Comment on above: Performed By: #### U AMIC #### [facility] [address] [place] [address] Dr. Marvin Reis Urobilinogen Qn (U) 0.2 {Robbie'U}/dL Normal 0.2 - 1. 0 [facility] Comment on above: Performed By: #### U AMIC #### [facility] [address] [address] [address] Marvin Reis WBC 50-75 Abnormal NONE SEEN [facility] Comment on above: Performed By: #### U AMIC #### [facility] [address] [address] [address] Marvin Reis CULTURE URINEon 10-01-2022 CULTURE URINE Culture Observations : NO GROWTH. Normal [facility] Comment on above: Performed By: #### U AMIC #### [facility] [address] [address] [address] Marvin Reis UA RANDOM W/MICROSCOPICon BACTERIA SMALL Abnormal NONE SEEN [facility] Comment on above: Performed By: #### U AMIC #### [facility] [address] [address] [address] Marvin Reis Bilirubin Ql (U) Negative Normal NEGATIVE [facility] Comment on above: Performed By: #### U AMIC #### [facility] [address] [address] [address] Marvin Reis CAST SEEN Abnormal NONE SEEN [facility] Comment on above: Performed By: #### U AMIC #### [facility] [address] [address] [address] aMrvin Reis Clarity (U) CLEAR Normal CLEAR [facility] Comment on above: Performed By: #### U AMIC #### [facility] [address] [address] [address] Marvin Reis Color (U) LT. YELLOW Normal YELLOW [facility] Comment on above: Performed By: #### U AMIC #### [facility] [address] [address] [address] Marvin Reis Crystals LM Nom (Urine sed) NONE SEEN Normal NONE SEEN [facility] Comment on above: Performed By: #### U AMIC #### [facility] [address] [address] [address] Marvin Reis Epithelial cells LM Ql (Urine sed) FEW Abnormal NONE SEEN /RARE [facility] Comment on above: Performed By: #### U AMIC #### [facility] [address] [place] [address] Dr. Marvin Reis Glucose Ql (U) Negative Normal NEGATIVE [facility] Comment on above: Performed By: #### U AMIC #### [facility] [address] [place] [address] Dr. Marvin Reis Hemoglobin Ql (U) TRACE-INTACT Abnormal NEGATIVE [facility] Comment on above: Performed By: #### U AMIC #### [facility] [address] [address] [address] Marvin Reis HYALINE CAST FEW Normal [facility] Comment on above: Performed By: #### U AMIC #### [facility] [address] [place] [address] Dr. Marvin Reis Ketones Ql (U) Negative Normal NEGATIVE [facility] Comment on above: Performed By: #### U AMIC #### [facility] [address] [place] [address] Dr. Marvin Reis LEUKOCYTES MODERATE Abnormal NEGATIVE [facility] Comment on above: Performed By: #### U AMIC #### [facility] [address] [place] [address] Dr. Marvin Reis MUCOUS SMALL Abnormal NONE SEEN [facility] Comment on above: Performed By: #### U AMIC #### [facility] [address] [place] [address] Dr. Marvin Reis Nitrite Ql (U) Negative Normal NEGATIVE [facility] Comment on above: Performed By: #### U AMIC #### [facility] [address] [place] [address] Dr. Marvin Reis pH (U) 5.5 [pH] Normal 5-9 [facility] Comment on above: Performed By: #### U AMIC #### [facility] [address] [place] [address] Dr. Marvin Reis RBC 0-2 Normal 0-2 [facility] Comment on above: Performed By: #### U AMIC #### [facility] [address] [place] [address] Dr. Marvin Reis SPEC GRAVITY 1.020 Normal 1.005-<=1.025 [facility] Comment on above: Performed By: #### U AMIC #### [facility] [address] [place] [address] Dr. Marvin Reis UA PROTEIN Negative Normal NEGATIVE/ TRACE [facility] Comment on above: Performed By: #### U AMIC #### [facility] [address] [address] [address] Marvin Reis Urobilinogen Qn (U) 0.2 {Robbie'U}/dL Normal 0.2 - 1. 0 [facility] Comment on above: Performed By: #### U AMIC #### [facility] [address] [address] [address] Marvin Reis WBC 10-20 Abnormal NONE SEEN [facility] Comment on above: Performed By: #### U AMIC #### [facility] [address] [address] [address] Marvin Reis CULTURE URINEon 09-26-2022 CULTURE [...] Trimethoprim/Sulfamet hoxazole <=20 S F Normal [facility] Comment on above: Performed By: #### U RCX #### [facility] [address] [place] [address] Dr. Marvin Reis CBC W MANUAL DIFFon 09-25-20 ANISOCYTOSIS SLIGHT Normal [facility] Comment on above: Performed By: #### U RCX #### [facility] [address] [place] [address] Dr. Marvin Reis ATYPICAL LYMPH # Normal [facility] Comment on above: Performed By: #### U RCX #### [facility] [address] [place] [address] Dr. Marvin Reis ATYPICAL LYMPH % Normal [facility] Comment on above: Performed By: #### U RCX #### [facility] [address] [place] [address] Dr. Marvin Reis BAND # Normal 0.0-0.3 [facility] Comment on above: Performed By: #### U RCX #### [facility] [address] [place] [address] Dr. Marvin Reis BAND % Normal 0-5 [facility] Comment on above: Performed By: #### U RCX #### [facility] [address] [place] [address] Dr. Marvin Reis BASOM # 0.00 103/ul Normal 0.00-0.10 [facility] Comment on above: Performed By: #### U RCX #### [facility] [address] [place] [address] Dr. Marvin Reis BASOM % 0.0 % Critically low 0.2-2.0 [facility] Comment on above: Performed By: #### U RCX #### [facility] [address] [place] [address] Dr. Marvin Reis BLAST # Normal [facility] Comment on above: Performed By: #### U RCX #### [facility] [address] [place] [address] Dr. Marvin Reis BLAST % Normal [facility] Comment on above: Performed By: #### U RCX #### [facility] [address] [place] [address] Dr. Marvin Reis CORRECTED WBC Normal 4.0-11.0 [facility] Comment on above: Performed By: #### U RCX #### [facility] [address] [place] [address] Dr. Marvin Reis EOS # 0.00 103/ul Normal 0.00-0.70 [facility] Comment on above: Performed By: #### U RCX #### [facility] [address] [place] [address] Dr. Marvin Reis EOS% 0.0 % Critically low 0.9-7.0 [facility] Comment on above: Performed By: #### U RCX #### [facility] [address] [place] [address] Dr. Marvin Reis HCT 32.1 % Critically low 42.0-54.0 [facility] Comment on above: Performed By: #### U RCX #### [facility] [address] [address] [address] Marvin Reis HGB 10.2 g/dl Critically low 14.0-18.0 [facility] Comment on above: Performed By: #### U RCX #### [facility] [address] [address] [address] Marvin Reis LYMPHM # 0.76 103/ul Critically low 1.20-3.80 [facility] Comment on above: Performed By: #### U RCX #### [facility] [address] [place] [address] Dr. Marvin Reis LYMPHM% 14.0 % Critically low 20.5-60.0 [facility] Comment on above: Performed By: #### U RCX #### [facility] [address] [place] [address] Dr. Marvin Reis MCH 26.5 pg Normal 25.9-34.0 [facility] Comment on above: Performed By: #### U RCX #### [facility] [address] [place] [address] Dr. Marvin Reis MCHC 31.8 g/dl Normal 29.9-35.2 [facility] Comment on above: Performed By: #### U RCX #### [facility] [address] [place] [address] Dr. Marvin Reis MCV 83.4 fL Normal 80.0-94.0 [facility] Comment on above: Performed By: #### U RCX #### [facility] [address] [address] [address] Marvin Reis METAMYELOCYTE # Normal [facility] Comment on above: Performed By: #### U RCX #### [facility] [address] [place] [address] Dr. Marvin Reis METAMYELOCYTE % Normal [facility] Comment on above: Performed By: #### U RCX #### [facility] [address] [address] [address] Marvin Reis MONOM# 0.27 103/ul Critically low 0.30-0.80 [facility] Comment on above: Performed By: #### U RCX #### [facility] [address] [address] [address] Marvin Reis MONOM% 5.0 % Normal 1.7-12.0 [facility] Comment on above: Performed By: #### U RCX #### [facility] [address] [address] [address] Marvin Reis MPV 9.8 fL Normal 9.5-13.5 [facility] Comment on above: Performed By: #### U RCX #### [facility] [address] [place] [address] Dr. Marvin Reis MYELOCYTE # Normal [facility] Comment on above: Performed By: #### U RCX #### [facility] [address] [address] [address] Marvin Reis MYELOCYTE % Normal [facility] Comment on above: Performed By: #### U RCX #### [facility] [address] [place] [address] Dr. Marvin Reis NRBC Normal [facility] Comment on above: Performed By: #### U RCX #### [facility] [address] [place] [address] Dr. Marvin Reis PLT 78 103/ul Critically low 150-450 [facility] Comment on above: Performed By: #### U RCX #### [facility] [address] [address] [address] Marvin Reis RBC 3.85 106/ul Critically low 4.70-6.10 [facility] Comment on above: Performed By: #### U RCX #### [facility] [address] [place] [address] Dr. Marvin Reis RDW 15.8 % Critically high 11.0-15.0 [facility] Comment on above: Performed By: #### U RCX #### [facility] [address] [address] [address] Marvin Reis SEG # 4.37 103/ul Normal 1.40-6.50 [facility] Comment on above: Performed By: #### U RCX #### [facility] [address] [address] [address] Marvin Reis SEG % 81.0 % Critically high 43.0-75.0 [facility] Comment on above: Performed By: #### U RCX #### [facility] [address] [place] [address] Dr. Marvin Reis WBC 5.4 103/ul Normal 4.0-11.0 [facility] Comment on above: Performed By: #### U RCX #### [facility] [address] [place] [address] Dr. Marvin Reis CRPon 09-25-2022 CRP 8.9 mg/dL Critically high <=1.0 [facility] Comment on above: Performed By: #### U AMIC #### [facility] [address] [place] [address] Dr. Marvin Reis LACTATE/LACTIC ACIDon 2021 Lactate [Moles/Vol] 0.9 mmol/L Normal 0.4-1.9 [facility] Comment on above: Performed By: #### U RCX #### [facility] [address] [place] [address] Dr. Marvin Reis PROF 14(COMP METB)on 022 Albumin [Mass/Vol] 2.6 g/dL Critically low 3.4-5.0 [facility] Comment on above: Performed By: #### U AMIC #### [facility] [address] [address] [address] Marvin Reis Albumin/Globulin [Mass ratio] 0.7 {ratio} Normal [facility] Comment on above: Performed By: #### U AMIC #### [facility] [address] [address] [address] Marvin Reis ALP [Catalytic activity/Vol] 75 U/L Normal 46-116 [facility] Comment on above: Performed By: #### U AMIC #### [facility] [address] [address] [address] Marvin Reis ALT [Catalytic activity/Vol] 23 U/L Normal 16-63 [facility] Comment on above: Performed By: #### U AMIC #### [facility] [address] [address] [address] Marvin Reis Anion gap [Moles/Vol] 11.8 mmol/L Normal [facility] Comment on above: Performed By: #### U AMIC #### [facility] [address] [address] [address] Marvin Reis AST [Catalytic activity/Vol] 21 U/L Normal 15-37 [facility] Comment on above: Performed By: #### U AMIC #### [facility] [address] [address] [address] Marvin Reis Bilirubin [Mass/Vol] 0.8 mg/dL Normal 0.2-1.0 [facility] Comment on above: Performed By: #### U AMIC #### [facility] [address] [address] [address] Marvin Reis Calcium [Mass/Vol] 8.7 mg/dL Normal 8.5-10.1 [facility] Comment on above: Performed By: #### U AMIC #### [facility] [address] [address] [address] Marvin Reis Chloride [Moles/Vol] 105 mmol/L Normal 98-107 [facility] Comment on above: Performed By: #### U AMIC #### [facility] [address] [address] [address] Marvin Reis CO2 [Moles/Vol] 26.1 mmol/L Normal 21.0-32.0 [facility] Comment on above: Performed By: #### U AMIC #### [facility] [address] [address] [address] Marvin Reis Creatinine [Mass/Vol] 0.88 mg/dL Normal 0.70-1.30 [facility] Comment on above: Performed By: #### U AMIC #### [facility] [address] [address] [address] Marvin Reis EGFR-AF CUBAN >60 Normal >=60 [facility] Comment on above: Performed By: #### U AMIC #### [facility] [address] [address] [address] Marvin Reis EGFR-NON AF CUBAN >60 Normal >=60 [facility] Comment on above: Performed By: #### U AMIC #### [facility] [address] [address] [address] Marvin Reis Globulin (S) [Mass/Vol] 3.7 g/dL Normal [facility] Comment on above: Performed By: #### U AMIC #### [facility] [address] [address] [address] Marvin Resi Glucose [Mass/Vol] 93 mg/dL Normal 74-106 [facility] Comment on above: Performed By: #### U AMIC #### [facility] [address] [address] [address] Marvin Reis Potassium [Moles/Vol] 3.9 mmol/L Normal 3.5-5.1 [facility] Comment on above: Performed By: #### U AMIC #### [facility] [address] [address] [address] Marvin Reis Protein [Mass/Vol] 6.3 g/dL Critically low 6.4-8.2 [facility] Comment on above: Performed By: #### U AMIC #### [facility] [address] [address] [address] Marvin Reis Sodium [Moles/Vol] 139 mmol/L Normal 136-145 [facility] Comment on above: Performed By: #### U AMIC #### [facility] [address] [address] [address] Marvin Reis Urea nitrogen [Mass/Vol] 20.0 mg/dL Critically high 7.0-18.0 [facility] Comment on above: Performed By: #### U AMIC #### [facility] [address] [place] [address] Dr. Marvin Reis Urea nitrogen/Creatinine [Mass ratio] 22.7 mg/mg Normal [facility] Comment on above: Performed By: #### U AMIC #### [facility] [address] [place] [address] Dr. Marvin Reis SED RATE WESTERGRENon 2021 SED RATE 49 mm/hr Critically high <=20 [facility] Comment on above: Performed By: #### U AMIC #### [facility] [address] [place] [address] Dr. Marvin Reis CBC W MANUAL DIFFon 09-24-20 ATYPICAL LYMPH # Normal [facility] Comment on above: Performed By: #### U RCX #### [facility] [address] [place] [address] Dr. Marvin Reis ATYPICAL LYMPH % Normal [facility] Comment on above: Performed By: #### U RCX #### [facility] [address] [place] [address] Dr. Marvin Reis BAND # Normal 0.0-0.3 [facility] Comment on above: Performed By: #### U RCX #### [facility] [address] [place] [address] Dr. Marvin Reis BAND % Normal 0-5 [facility] Comment on above: Performed By: #### U RCX #### [facility] [address] [place] [address] Dr. Marvin Reis BASOM # 0.00 103/ul Normal 0.00-0.10 [facility] Comment on above: Performed By: #### U RCX #### [facility] [address] [address] [address] Marvin Reis BASOM % 0.0 % Critically low 0.2-2.0 [facility] Comment on above: Performed By: #### U RCX #### [facility] [address] [place] [address] Dr. Marvin Reis BLAST # Normal [facility] Comment on above: Performed By: #### U RCX #### [facility] [address] [address] [address] Marvin Reis BLAST % Normal [facility] Comment on above: Performed By: #### U RCX #### [facility] [address] [place] [address] Dr. Marvin Reis CORRECTED WBC Normal 4.0-11.0 [facility] Comment on above: Performed By: #### U RCX #### [facility] [address] [address] [address] Marvin Reis EOS # 0.00 103/ul Normal 0.00-0.70 [facility] Comment on above: Performed By: #### U RCX #### [facility] [address] [place] [address] Dr. Marvin Reis EOS% 0.0 % Critically low 0.9-7.0 [facility] Comment on above: Performed By: #### U RCX #### [facility] [address] [place] [address] Dr. Marvin Reis HCT 33.5 % Critically low 42.0-54.0 [facility] Comment on above: Performed By: #### U RCX #### [facility] [address] [place] [address] Dr. Marvin Reis HGB 10.9 g/dl Critically low 14.0-18.0 [facility] Comment on above: Performed By: #### U RCX #### [facility] [address] [place] [address] Dr. Marvin Reis LYMPHM # 0.52 103/ul Critically low 1.20-3.80 [facility] Comment on above: Performed By: #### U RCX #### [facility] [address] [place] [address] Dr. Marvin Reis LYMPHM% 4.0 % Critically low 20.5-60.0 [facility] Comment on above: Performed By: #### U RCX #### [facility] [address] [place] [address] Dr. Marvin Reis MCH 27.2 pg Normal 25.9-34.0 [facility] Comment on above: Performed By: #### U RCX #### [facility] [address] [place] [address] Dr. Marvin Reis MCHC 32.5 g/dl Normal 29.9-35.2 [facility] Comment on above: Performed By: #### U RCX #### [facility] [address] [address] [address] Marvin Reis MCV 83.5 fL Normal 80.0-94.0 [facility] Comment on above: Performed By: #### U RCX #### [facility] [address] [place] [address] Dr. Marvin Reis METAMYELOCYTE # Normal [facility] Comment on above: Performed By: #### U RCX #### [facility] [address] [place] [address] Dr. Marvin Reis METAMYELOCYTE % Normal [facility] Comment on above: Performed By: #### U RCX #### [facility] [address] [place] [address] Dr. Marvin Reis MONOM# 0.39 103/ul Normal 0.30-0.80 [facility] Comment on above: Performed By: #### U RCX #### [facility] [address] [place] [address] Dr. Marvin Reis MONOM% 3.0 % Normal 1.7-12.0 [facility] Comment on above: Performed By: #### U RCX #### [facility] [address] [place] [address] Dr. Marvin Reis MPV 10.5 fL Normal 9.5-13.5 [facility] Comment on above: Performed By: #### U RCX #### [facility] [address] [place] [address] Dr. Marvin Reis MYELOCYTE # Normal [facility] Comment on above: Performed By: #### U RCX #### [facility] [address] [place] [address] Dr. Marvin Reis MYELOCYTE % Normal [facility] Comment on above: Performed By: #### U RCX #### [facility] [address] [address] [address] Marvin Reis NRBC Normal [facility] Comment on above: Performed By: #### U RCX #### [facility] [address] [address] [address] Marvin Reis PLT 96 103/ul Critically low 150-450 [facility] Comment on above: Performed By: #### U RCX #### [facility] [address] [address] [address] Marvin Reis RBC 4.01 106/ul Critically low 4.70-6.10 [facility] Comment on above: Performed By: #### U RCX #### [facility] [address] [address] [address] Marvin Reis RDW 15.8 % Critically high 11.0-15.0 [facility] Comment on above: Performed By: #### U RCX #### [facility] [address] [address] [address] Marvin Reis SEG # 12.00 103/ul Critically high 1.40-6.50 [facility] Comment on above: Performed By: #### U RCX #### [facility] [address] [address] [address] Marvin Reis SEG % 93.0 % Critically high 43.0-75.0 [facility] Comment on above: Performed By: #### U RCX #### [facility] [address] [address] [address] Marvin Reis WBC 12.9 103/ul Critically high 4.0-11.0 [facility] Comment on above: Performed By: #### U RCX #### [facility] [address] [address] [address] Marvin Reis CRPon 09-24-2022 CRP 8.4 mg/dL Critically high <=1.0 [facility] Comment on above: Performed By: #### U AMIC #### [facility] [address] [address] [address] Marvin Reis LACTATE/LACTIC ACIDon 2021 Lactate [Moles/Vol] 2.2 mmol/L Critically high 0.4-1.9 [facility] Comment on above: Performed By: #### L ACT #### [facility] [address] [address] [address] Marvin Reis PROF 14(COMP METB)on 022 Albumin [Mass/Vol] 2.8 g/dL Critically low 3.4-5.0 [facility] Comment on above: Performed By: #### U AMIC #### [facility] [address] [place] [address] Dr. Marvin Reis Albumin/Globulin [Mass ratio] 0.7 {ratio} Normal [facility] Comment on above: Performed By: #### U AMIC #### [facility] [address] [place] [address] Dr. Marvin Reis ALP [Catalytic activity/Vol] 80 U/L Normal 46-116 [facility] Comment on above: Performed By: #### U AMIC #### [facility] [address] [place] [address] Dr. Marvin Reis ALT [Catalytic activity/Vol] 20 U/L Normal 16-63 [facility] Comment on above: Performed By: #### U AMIC #### [facility] [address] [place] [address] Dr. Marvin Reis Anion gap [Moles/Vol] 12.3 mmol/L Normal [facility] Comment on above: Performed By: #### U AMIC #### [facility] [address] [place] [address] Dr. Marvin Reis AST [Catalytic activity/Vol] 17 U/L Normal 15-37 [facility] Comment on above: Performed By: #### U AMIC #### [facility] [address] [place] [address] Dr. Marvin Reis Bilirubin [Mass/Vol] 1.0 mg/dL Normal 0.2-1.0 [facility] Comment on above: Performed By: #### U AMIC #### [facility] [address] [address] [address] Marvin Reis Calcium [Mass/Vol] 9.0 mg/dL Normal 8.5-10.1 [facility] Comment on above: Performed By: #### U AMIC #### [facility] [address] [address] [address] Marvin Reis Chloride [Moles/Vol] 106 mmol/L Normal 98-107 [facility] Comment on above: Performed By: #### U AMIC #### [facility] [address] [address] [address] Marvin Reis CO2 [Moles/Vol] 25.8 mmol/L Normal 21.0-32.0 [facility] Comment on above: Performed By: #### U AMIC #### [facility] [address] [place] [address] Dr. Marvin Reis Creatinine [Mass/Vol] 1.08 mg/dL Normal 0.70-1.30 [facility] Comment on above: Performed By: #### U AMIC #### [facility] [address] [address] [address] Marvin Reis EGFR-AF CUBAN >60 Normal >=60 [facility] Comment on above: Performed By: #### U AMIC #### [facility] [address] [address] [address] Marvin Reis EGFR-NON AF CUBAN >60 Normal >=60 [facility] Comment on above: Performed By: #### U AMIC #### [facility] [address] [address] [address] Marvin Reis Globulin (S) [Mass/Vol] 3.8 g/dL Normal [facility] Comment on above: Performed By: #### U AMIC #### [facility] [address] [address] [address] Marvin Reis Glucose [Mass/Vol] 117 mg/dL Critically high 74-106 [facility] Comment on above: Performed By: #### U AMIC #### [facility] [address] [address] [address] Marvin Reis Potassium [Moles/Vol] 4.1 mmol/L Normal 3.5-5.1 [facility] Comment on above: Performed By: #### U AMIC #### [facility] [address] [address] [address] Marvin Reis Protein [Mass/Vol] 6.6 g/dL Normal 6.4-8.2 [facility] Comment on above: Performed By: #### U AMIC #### [facility] [address] [address] [address] Marvin Reis Sodium [Moles/Vol] 140 mmol/L Normal 136-145 [facility] Comment on above: Performed By: #### U AMIC #### [facility] [address] [place] [address] Dr. Marvin Reis Urea nitrogen [Mass/Vol] 23.0 mg/dL Critically high 7.0-18.0 [facility] Comment on above: Performed By: #### U AMIC #### [facility] [address] [place] [address] Dr. Marvin Reis Urea nitrogen/Creatinine [Mass ratio] 21.3 mg/mg Normal [facility] Comment on above: Performed By: #### U AMIC #### [facility] [address] [place] [address] Dr. Marvin Reis SED RATE [facility] 2021 SED RATE 51 mm/hr Critically high <=20 [facility] Comment on above: Performed By: #### U RCX #### [facility] [address] [place] [address] Dr. Marvin Reis UA RANDOMon 09-24-2022 Bilirubin Ql (U) Negative Normal NEGATIVE [facility] Comment on above: Performed By: #### U AMIC #### [facility] [address] [place] [address] Dr. Marvin Reis Clarity (U) CLEAR Normal CLEAR [facility] Comment on above: Performed By: #### U AMIC #### [facility] [address] [place] [address] Dr. Marvin Reis Color (U) LT. YELLOW Normal YELLOW The [facility] Comment on above: Performed By: #### U AMIC #### [facility] [address] [address] [address] Marvin Reis Glucose Ql (U) Negative Normal NEGATIVE [facility] Comment on above: Performed By: #### U AMIC #### [facility] [address] [address] [address] Marvin Reis Hemoglobin Ql (U) LARGE Abnormal NEGATIVE [facility] Comment on above: Performed By: #### U AMIC #### [facility] [address] [address] [address] Marvin Reis Ketones Ql (U) Negative Normal NEGATIVE [facility] Comment on above: Performed By: #### U AMIC #### [facility] [address] [place] [address] Dr. Marvin Reis LEUKOCYTES MODERATE Abnormal NEGATIVE [facility] Comment on above: Performed By: #### U AMIC #### [facility] [address] [place] [address] Dr. Marvin Reis Nitrite Ql (U) Negative Normal NEGATIVE [facility] Comment on above: Performed By: #### U AMIC #### [facility] [address] [address] [address] Marvin Reis pH (U) 5.5 [pH] Normal 5-9 [facility] Comment on above: Performed By: #### U AMIC #### [facility] [address] [address] [address] Marvin Reis SPEC GRAVITY 1.020 Normal 1.005-<=1.025 [facility] Comment on above: Performed By: #### U AMIC #### [facility] [address] [place] [address] Dr. Marvin Reis UA PROTEIN Negative Normal NEGATIVE/ TRACE [facility] Comment on above: Performed By: #### U AMIC #### [facility] [address] [place] [address] Dr. Marvin Reis Urobilinogen Qn (U) 0.2 {Robbie'U}/dL Normal 0.2 - 1. 0 The [facility] Comment on above: Performed By: #### U AMIC #### [facility] [address] [place] [address] Dr. Marvin Reis CULTURE URINEon 09-13-2022 CULTURE [...] F Oxacillin >=4 R F Normal The [facility] Comment on above: Performed By: #### U RCX #### [facility] [address] [place] [address] Dr. Marvin Reis UA RANDOM W/MICROSCOPICon BACTERIA TRACE Abnormal NONE SEEN The [facility] Comment on above: Performed By: #### U AMIC #### [facility] [address] [place] [address] Dr. Marvin Reis Bilirubin Ql (U) Negative Normal NEGATIVE The [facility] Comment on above: Performed By: #### U AMIC #### [facility] [address] [place] [address] Dr. Marvin Reis CAST NONE SEEN Normal NONE SEEN The [facility] Comment on above: Performed By: #### U AMIC #### [facility] [address] [place] [address] Dr. Marvin Reis Clarity (U) CLEAR Normal CLEAR The [facility] Comment on above: Performed By: #### U AMIC #### [facility] [address] [place] [address] Dr. Marvin Reis Color (U) LT. YELLOW Normal YELLOW The [facility] Comment on above: Performed By: #### U AMIC #### [facility] [address] [address] [address] Marvin Reis Crystals LM Nom (Urine sed) NONE SEEN Normal NONE SEEN [facility] Comment on above: Performed By: #### U AMIC #### [facility] [address] [address] [address] Marvin Reis Epithelial cells LM Ql (Urine sed) FEW Abnormal NONE SEEN /RARE The [facility] Comment on above: Performed By: #### U AMIC #### [facility] [address] [address] [address] Marvin Reis Glucose Ql (U) Negative Normal NEGATIVE [facility] Comment on above: Performed By: #### U AMIC #### [facility] [address] [address] [address] Marvin Reis Hemoglobin Ql (U) Negative Normal NEGATIVE The [facility] Comment on above: Performed By: #### U AMIC #### [facility] [address] [address] [address] Marvin Reis Ketones Ql (U) Negative Normal NEGATIVE [facility] Comment on above: Performed By: #### U AMIC #### [facility] [address] [address] [address] Marvin Reis LEUKOCYTES LARGE Abnormal NEGATIVE The [facility] Comment on above: Performed By: #### U AMIC #### [facility] [address] [address] [address] Marvin Reis MUCOUS NONE SEEN Normal NONE SEEN [facility] Comment on above: Performed By: #### U AMIC #### [facility] [address] [address] [address] Marvin Reis Nitrite Ql (U) Negative Normal NEGATIVE The [facility] Comment on above: Performed By: #### U AMIC #### [facility] [address] [address] [address] Marvin Reis pH (U) 5.5 [pH] Normal 5-9 The [facility] Comment on above: Performed By: #### U AMIC #### [facility] [address] [address] [address] Marvin Reis RBC 0-2 Normal 0-2 The [facility] Comment on above: Performed By: #### U AMIC #### [facility] [address] [place] [address] Dr. Marvin Reis SPEC GRAVITY 1.025 Normal 1.005-<=1.025 [facility] Comment on above: Performed By: #### U AMIC #### [facility] [address] [place] [address] Dr. Marvin Reis UA PROTEIN Negative Normal NEGATIVE/ TRACE [facility] Comment on above: Performed By: #### U AMIC #### [facility] [address] [place] [address] Dr. Marvin Reis Urobilinogen Qn (U) 0.2 {Robbie'U}/dL Normal 0.2 - 1. 0 [facility] Comment on above: Performed By: #### U AMIC #### [facility] [address] [place] [address] Dr. Marvin Reis WBC 10-20 Abnormal NONE SEEN [facility] Comment on above: Performed By: #### U AMIC #### [facility] [address] [place] [address] Dr. Marvin Reis CULTURE URINEon 08-17-2022 CULTURE [...] Trimethoprim/Sulfamet hoxazole <=20 S F Normal The [facility] Comment on above: Performed By: #### U RCX #### [facility] [address] [place] [address] Dr. Marvin Reis UA RANDOM W/MICROSCOPICon 10 -13-2022 BACTERIA MODERATE Abnormal NONE SEEN The [facility] Comment on above: Performed By: #### U RCX #### [facility] [address] [address] [address] Marvin Reis Bilirubin Ql (U) Negative Normal NEGATIVE The [facility] Comment on above: Performed By: #### U RCX #### [facility] [address] [place] [address] Dr. Marvin Reis CAST NONE SEEN Normal NONE SEEN The [facility] Comment on above: Performed By: #### U RCX #### [facility] [address] [address] [address] Marvin Reis Clarity (U) SL CLOUDY Abnormal CLEAR The [facility] Comment on above: Performed By: #### U RCX #### [facility] [address] [place] [address] Dr. Marvin Reis Color (U) LT. YELLOW Normal YELLOW The [facility] Comment on above: Performed By: #### U RCX #### [facility] [address] [address] [address] Marvin Reis Crystals LM Nom (Urine sed) NONE SEEN Normal NONE SEEN [facility] Comment on above: Performed By: #### U RCX #### [facility] [address] [place] [address] Dr. Marvin Reis Epithelial cells LM Ql (Urine sed) RARE Normal NONE SEEN /RARE The [facility] Comment on above: Performed By: #### U RCX #### [facility] [address] [place] [address] Dr. Marvin Reis Glucose Ql (U) Negative Normal NEGATIVE [facility] Comment on above: Performed By: #### U RCX #### [facility] [address] [address] [address] Marvin Reis Hemoglobin Ql (U) SMALL Abnormal NEGATIVE The [facility] Comment on above: Performed By: #### U RCX #### [facility] [address] [place] [address] Dr. Marvin Reis Ketones Ql (U) Negative Normal NEGATIVE [facility] Comment on above: Performed By: #### U RCX #### [facility] [address] [address] [address] Marvin Reis LEUKOCYTES MODERATE Abnormal NEGATIVE The [facility] Comment on above: Performed By: #### U RCX #### [facility] [address] [place] [address] Dr. Marvin Reis MUCOUS NONE SEEN Normal NONE SEEN The [facility] Comment on above: Performed By: #### U RCX #### [facility] [address] [address] [address] Marvin Reis Nitrite Ql (U) Positive Abnormal NEGATIVE [facility] Comment on above: Performed By: #### U RCX #### [facility] [address] [place] [address] Dr. Marvin Reis pH (U) 6.0 [pH] Normal 5-9 [facility] Comment on above: Performed By: #### U RCX #### [facility] [address] [place] [address] Dr. Marvin Reis RBC 0-2 Normal 0-2 The [facility] Comment on above: Performed By: #### U RCX #### [facility] [address] [address] [address] Marvin Reis SPEC GRAVITY 1.015 Normal 1.005-<=1.025 [facility] Comment on above: Performed By: #### U RCX #### [facility] [address] [place] [address] Dr. Marvin Reis UA PROTEIN Negative Normal NEGATIVE/ TRACE [facility] Comment on above: Performed By: #### U RCX #### [facility] [address] [place] [address] Dr. Marvin Reis Urobilinogen Qn (U) 0.2 {Robbie'U}/dL Normal 0.2 - 1. 0 [facility] Comment on above: Performed By: #### U RCX #### [facility] [address] [place] [address] Dr. Marvin Reis WBC 10-20 Abnormal NONE SEEN The [facility] Comment on above: Performed By: #### U RCX #### [facility] [address] [place] [address] Dr. Marvin Reis CULTURE URINEon 08-02-2022 CULTURE [...] Trimethoprim/Sulfamet hoxazole <=20 S F Normal The [facility] Comment on above: Performed By: #### U RCX #### [facility] [address] [place] [address] Dr. Marvin Reis UA RANDOM W/MICROSCOPICon BACTERIA MODERATE Abnormal NONE SEEN [facility] Comment on above: Performed By: #### U AMIC #### [facility] [address] [place] [address] Dr. Marvin Reis Bilirubin Ql (U) Negative Normal NEGATIVE The [facility] Comment on above: Performed By: #### U AMIC #### [facility] [address] [place] [address] Dr. Marvin Reis CAST NONE SEEN Normal NONE SEEN [facility] Comment on above: Performed By: #### U AMIC #### [facility] [address] [place] [address] Dr. Marvin Reis Clarity (U) SL CLOUDY Abnormal CLEAR The [facility] Comment on above: Performed By: #### U AMIC #### [facility] [address] [place] [address] Dr. Marvin Reis Color (U) LT. YELLOW Normal YELLOW The [facility] Comment on above: Performed By: #### U AMIC #### [facility] [address] [place] [address] Dr. Marvin Reis Crystals LM Nom (Urine sed) NONE SEEN Normal NONE SEEN [facility] Comment on above: Performed By: #### U AMIC #### [facility] [address] [address] [address] Marvin Reis Epithelial cells LM Ql (Urine sed) NONE SEEN Normal NONE SEEN /RARE The [facility] Comment on above: Performed By: #### U AMIC #### [facility] [address] [address] [address] Marvin Reis Glucose Ql (U) Negative Normal NEGATIVE [facility] Comment on above: Performed By: #### U AMIC #### [facility] [address] [address] [address] Marvin Reis Hemoglobin Ql (U) TRACE-INTACT Abnormal NEGATIVE [facility] Comment on above: Performed By: #### U AMIC #### [facility] [address] [place] [address] Dr. Marvin Reis Ketones Ql (U) Negative Normal NEGATIVE [facility] Comment on above: Performed By: #### U AMIC #### [facility] [address] [address] [address] Marvin Reis LEUKOCYTES MODERATE Abnormal NEGATIVE [facility] Comment on above: Performed By: #### U AMIC #### [facility] [address] [address] [address] Marvin Reis MUCOUS NONE SEEN Normal NONE SEEN [facility] Comment on above: Performed By: #### U AMIC #### [facility] [address] [address] [address] Marvin Reis Nitrite Ql (U) Positive Abnormal NEGATIVE [facility] Comment on above: Performed By: #### U AMIC #### [facility] [address] [address] [address] Marvin Reis pH (U) 6.0 [pH] Normal 5-9 [facility] Comment on above: Performed By: #### U AMIC #### [facility] [address] [address] [address] Marvin Reis RBC 0-2 Normal 0-2 [facility] Comment on above: Performed By: #### U AMIC #### [facility] [address] [place] [address] Dr. Marvin Reis SPEC GRAVITY 1.015 Normal 1.005-<=1.025 [facility] Comment on above: Performed By: #### U AMIC #### [facility] [address] [place] [address] Dr. Marvin Reis UA PROTEIN Negative Normal NEGATIVE/ TRACE [facility] Comment on above: Performed By: #### U AMIC #### [facility] [address] [place] [address] Dr. Marvin Reis Urobilinogen Qn (U) 0.2 {Robbie'U}/dL Normal 0.2 - 1. 0 [facility] Comment on above: Performed By: #### U AMIC #### [facility] [address] [place] [address] Dr. Marvin Reis WBC 20-50 Abnormal NONE SEEN The [facility] Comment on above: Performed By: #### U AMIC #### [facility] [address] [place] [address] Dr. Marvin Reis CULTURE URINEon 06-27-2022 CULTURE [...] F Oxacillin >=4 R F Normal The [facility] Comment on above: Performed By: #### U AMIC #### [facility] [address] [place] [address] Dr. Marvin Reis UA RANDOM W/MICROSCOPICon BACTERIA LARGE Abnormal NONE SEEN The [facility] Comment on above: Performed By: #### U RCX #### [facility] [address] [address] [address] Marvin Reis Bilirubin Ql (U) Negative Normal NEGATIVE [facility] Comment on above: Performed By: #### U RCX #### [facility] [address] [address] [address] Marvin Reis CAST NONE SEEN Normal NONE SEEN [facility] Comment on above: Performed By: #### U RCX #### [facility] [address] [address] [address] Marvin Reis Clarity (U) CLEAR Normal CLEAR [facility] Comment on above: Performed By: #### U RCX #### [facility] [address] [place] [address] Dr. Marvin Reis Color (U) LT. YELLOW Normal YELLOW [facility] Comment on above: Performed By: #### U RCX #### [facility] [address] [place] [address] Dr. Marvin Reis Crystals LM Nom (Urine sed) NONE SEEN Normal NONE SEEN [facility] Comment on above: Performed By: #### U RCX #### [facility] [address] [address] [address] Marvin Reis Epithelial cells LM Ql (Urine sed) FEW Abnormal NONE SEEN /RARE [facility] Comment on above: Performed By: #### U RCX #### [facility] [address] [place] [address] Dr. Marvin Reis Glucose Ql (U) Negative Normal NEGATIVE [facility] Comment on above: Performed By: #### U RCX #### [facility] [address] [address] [address] Marvin Reis Hemoglobin Ql (U) TRACE-INTACT Abnormal NEGATIVE [facility] Comment on above: Performed By: #### U RCX #### [facility] [address] [place] [address] Dr. Marvin Reis Ketones Ql (U) Negative Normal NEGATIVE [facility] Comment on above: Performed By: #### U RCX #### [facility] [address] [address] [address] Marvin Reis LEUKOCYTES LARGE Abnormal NEGATIVE [facility] Comment on above: Performed By: #### U RCX #### [facility] [address] [place] [address] Dr. Marvin Reis MUCOUS NONE SEEN Normal NONE SEEN [facility] Comment on above: Performed By: #### U RCX #### [facility] [address] [place] [address] Dr. Marvin Reis Nitrite Ql (U) Positive Abnormal NEGATIVE [facility] Comment on above: Performed By: #### U RCX #### [facility] [address] [place] [address] Dr. Marvin Reis pH (U) 5.5 [pH] Normal 5-9 [facility] Comment on above: Performed By: #### U RCX #### [facility] [address] [place] [address] Dr. Marvin Reis RBC 2-5 Abnormal 0-2 [facility] Comment on above: Performed By: #### U RCX #### [facility] [address] [place] [address] Dr. Marvin Reis SPEC GRAVITY 1.015 Normal 1.005-<=1.025 [facility] Comment on above: Performed By: #### U RCX #### [facility] [address] [place] [address] Dr. Marvin Reis UA PROTEIN Negative Normal NEGATIVE/ TRACE [facility] Comment on above: Performed By: #### U RCX #### [facility] [address] [place] [address] Dr. Marvin Reis Urobilinogen Qn (U) 0.2 {Robbie'U}/dL Normal 0.2 - 1. 0 [facility] Comment on above: Performed By: #### U RCX #### [facility] [address] [place] [address] Dr. Marvin Reis WBC (U) [#/Vol] /uL Abnormal NONE SEEN [facility] Comment on above: Performed By: #### U RCX #### [facility] [address] [place] [address] Dr. Marvin Reis CULTURE URINEon 05-27-2022 CULTURE [...] F Oxacillin >=4 R F Normal [facility] Comment on above: Performed By: #### U RCX #### [facility] [address] [place] [address] Dr. Marvin Reis UA RANDOM W/MICROSCOPICon BACTERIA MODERATE Abnormal NONE SEEN [facility] Comment on above: Performed By: #### U RCX #### [facility] [address] [place] [address] Dr. Marvin Reis Bilirubin Ql (U) Negative Normal NEGATIVE [facility] Comment on above: Performed By: #### U RCX #### [facility] [address] [place] [address] Dr. Marvin Reis CAST NONE SEEN Normal NONE SEEN [facility] Comment on above: Performed By: #### U RCX #### [facility] [address] [place] [address] Dr. Marvin Reis Clarity (U) SL CLOUDY Abnormal CLEAR [facility] Comment on above: Performed By: #### U RCX #### [facility] [address] [place] [address] Dr. Marvin Reis Color (U) LT. YELLOW Normal YELLOW [facility] Comment on above: Performed By: #### U RCX #### [facility] [address] [place] [address] Dr. Marvin Reis Crystals LM Nom (Urine sed) NONE SEEN Normal NONE SEEN [facility] Comment on above: Performed By: #### U RCX #### [facility] [address] [address] [address] Marvin Reis Epithelial cells LM Ql (Urine sed) FEW Abnormal NONE SEEN /RARE [facility] Comment on above: Performed By: #### U RCX #### [facility] [address] [address] [address] Marvin Reis Glucose Ql (U) Negative Normal NEGATIVE [facility] Comment on above: Performed By: #### U RCX #### [facility] [address] [address] [address] Marvin Reis Hemoglobin Ql (U) SMALL Abnormal NEGATIVE [facility] Comment on above: Performed By: #### U RCX #### [facility] [address] [place] [address] Dr. Marvin Reis Ketones Ql (U) Negative Normal NEGATIVE [facility] Comment on above: Performed By: #### U RCX #### [facility] [address] [address] [address] Marvin Reis LEUKOCYTES LARGE Abnormal NEGATIVE [facility] Comment on above: Performed By: #### U RCX #### [facility] [address] [address] [address] Marvin Reis MUCOUS TRACE Abnormal NONE SEEN [facility] Comment on above: Performed By: #### U RCX #### [facility] [address] [address] [address] Marvin Reis Nitrite Ql (U) Negative Normal NEGATIVE [facility] Comment on above: Performed By: #### U RCX #### [facility] [address] [address] [address] Marvin Reis pH (U) 6.0 [pH] Normal 5-9 [facility] Comment on above: Performed By: #### U RCX #### [facility] [address] [address] [address] Marvin Reis RBC 2-5 Abnormal 0-2 [facility] Comment on above: Performed By: #### U RCX #### [facility] [address] [address] [address] Marvin Reis SPEC GRAVITY 1.010 Normal 1.005-<=1.025 [facility] Comment on above: Performed By: #### U RCX #### [facility] [address] [address] [address] Marvin Reis UA PROTEIN Negative Normal NEGATIVE/ TRACE [facility] Comment on above: Performed By: #### U RCX #### [facility] [address] [address] [address] Mravin Reis Urobilinogen Qn (U) 0.2 {Robbie'U}/dL Normal 0.2 - 1. 0 [facility] Comment on above: Performed By: #### U RCX #### [facility] [address] [place] [address] Dr. Marvin Reis WBC 50-75 Abnormal NONE SEEN [facility] on above: Performed By: #### U RCX #### [facility] [address] [place] [address] Dr. Marvin Reis CULTURE URINEon 04-18-2022 CULTURE [...] F Oxacillin >=4 R F Normal [facility] Comment on above: Performed By: #### U RCX #### [facility] [address] [address] [address] Marvin Reis UA RANDOM W/MICROSCOPICon BACTERIA TRACE Abnormal NONE SEEN [facility] on above: Performed By: #### U AMIC #### [facility] [address] [address] [address] Marvin Reis Bilirubin Ql (U) Negative Normal NEGATIVE [facility] Comment on above: Performed By: #### U AMIC #### [facility] [address] [address] [address] Marvin Reis CAST NONE SEEN Normal NONE SEEN [facility] Comment on above: Performed By: #### U AMIC #### [facility] [address] [address] [address] Marvin Reis Clarity (U) CLEAR Normal CLEAR [facility] Comment on above: Performed By: #### U AMIC #### [facility] [address] [address] [address] Marvin Reis Color (U) LT. YELLOW Normal YELLOW [facility] Comment on above: Performed By: #### U AMIC #### [facility] [address] [address] [address] Marvin Reis Crystals LM Nom (Urine sed) NONE SEEN Normal NONE SEEN [facility] Comment on above: Performed By: #### U AMIC #### [facility] [address] [address] [address] Marvin Ries Epithelial cells LM Ql (Urine sed) FEW Abnormal NONE SEEN /RARE [facility] Comment on above: Performed By: #### U AMIC #### [facility] [address] [address] [address] Marvin Reis Glucose Ql (U) Negative Normal NEGATIVE [facility] Comment on above: Performed By: #### U AMIC #### [facility] [address] [address] [address] Marvin Reis Hemoglobin Ql (U) TRACE-INTACT Abnormal NEGATIVE [facility] Comment on above: Performed By: #### U AMIC #### [facility] [address] [address] [address] Marvin Reis Ketones Ql (U) Negative Normal NEGATIVE [facility] Comment on above: Performed By: #### U AMIC #### [facility] [address] [place] [address] Dr. Marvin Reis LEUKOCYTES SMALL Abnormal NEGATIVE [facility] Comment on above: Performed By: #### U AMIC #### [facility] [address] [place] [address] Dr. Marvin Reis MUCOUS NONE SEEN Normal NONE SEEN [facility] Comment on above: Performed By: #### U AMIC #### [facility] [address] [place] [address] Dr. Marvin Reis Nitrite Ql (U) Negative Normal NEGATIVE [facility] Comment on above: Performed By: #### U AMIC #### [facility] [address] [place] [address] Dr. Marvin Reis pH (U) 6.0 [pH] Normal 5-9 [facility] Comment on above: Performed By: #### U AMIC #### [facility] [address] [place] [address] Dr. Marvin Reis RBC 0-2 Normal 0-2 [facility] Comment on above: Performed By: #### U AMIC #### [facility] [address] [place] [address] Dr. Marvin Reis SPEC GRAVITY 1.010 Normal 1.005-<=1.025 [facility] Comment on above: Performed By: #### U AMIC #### [facility] [address] [place] [address] Dr. Marvin Reis UA PROTEIN Negative Normal NEGATIVE/ TRACE [facility] Comment on above: Performed By: #### U AMIC #### [facility] [address] [place] [address] Dr. Marvin Reis Urobilinogen Qn (U) 0.2 {Robbie'U}/dL Normal 0.2 - 1. 0 [facility] Comment on above: Performed By: #### U AMIC #### [facility] [address] [place] [address] Dr. Marvin Reis WBC 2-5 Abnormal NONE SEEN [facility] Comment on above: Performed By: #### U AMIC #### [facility] [address] [place] [address] Dr. Marvin Reis CULTURE URINEon 03-27-2022 CULTURE [...] Trimethoprim/Sulfamet hoxazole >=320 R F Normal [facility] Comment on above: Performed By: #### U RCX #### [facility] [address] [place] [address] Dr. Marvin Reis UA RANDOM W/MICROSCOPICon BACTERIA TRACE Abnormal NONE SEEN The [facility] Comment on above: Performed By: #### U RCX #### [facility] [address] [place] [address] Dr. Marvin Reis Bilirubin Ql (U) Negative Normal NEGATIVE [facility] Comment on above: Performed By: #### U RCX #### [facility] [address] [place] [address] Dr. Marvin Reis CAST NONE SEEN Normal NONE SEEN [facility] on above: Performed By: #### U RCX #### [facility] [address] [place] [address] Dr. Marvin Reis Clarity (U) CLEAR Normal CLEAR [facility] Comment on above: Performed By: #### U RCX #### [facility] [address] [address] [address] Marvin Reis Color (U) LT. YELLOW Normal YELLOW [facility] Comment on above: Performed By: #### U RCX #### [facility] [address] [place] [address] Dr. Marvin Reis Crystals LM Nom (Urine sed) NONE SEEN Normal NONE SEEN [facility] Comment on above: Performed By: #### U RCX #### [facility] [address] [address] [address] Marvin Reis Epithelial cells LM Ql (Urine sed) FEW Abnormal NONE SEEN /RARE [facility] Comment on above: Performed By: #### U RCX #### [facility] [address] [place] [address] Dr. Marvin Reis Glucose Ql (U) Negative Normal NEGATIVE [facility] Comment on above: Performed By: #### U RCX #### [facility] [address] [place] [address] Dr. Marvin Reis Hemoglobin Ql (U) SMALL Abnormal NEGATIVE [facility] Comment on above: Performed By: #### U RCX #### [facility] [address] [place] [address] Dr. Marvin Reis Ketones Ql (U) Negative Normal NEGATIVE [facility] Comment on above: Performed By: #### U RCX #### [facility] [address] [place] [address] Dr. Marvin Reis LEUKOCYTES MODERATE Abnormal NEGATIVE [facility] Comment on above: Performed By: #### U RCX #### [facility] [address] [place] [address] Dr. Marvin Reis MUCOUS NONE SEEN Normal NONE SEEN [facility] Comment on above: Performed By: #### U RCX #### [facility] [address] [place] [address] Dr. Marvin Reis Nitrite Ql (U) Negative Normal NEGATIVE [facility] Comment on above: Performed By: #### U RCX #### [facility] [address] [place] [address] Dr. Marvin Reis pH (U) 5.5 [pH] Normal 5-9 [facility] Comment on above: Performed By: #### U RCX #### [facility] [address] [place] [address] Dr. Marvin Reis RBC NONE SEEN Abnormal 0-2 [facility] Comment on above: Performed By: #### U RCX #### [facility] [address] [place] [address] Dr. Marvin Reis SPEC GRAVITY 1.015 Normal 1.005-<=1.025 [facility] Comment on above: Performed By: #### U RCX #### [facility] [address] [place] [address] Dr. Marvin Reis UA PROTEIN Negative Normal NEGATIVE/ TRACE [facility] Comment on above: Performed By: #### U RCX #### [facility] [address] [place] [address] Dr. Marvin Reis Urobilinogen Qn (U) 0.2 {Robbie'U}/dL Normal 0.2 - 1. 0 [facility] Comment on above: Performed By: #### U RCX #### [facility] [address] [place] [address] Dr. Marvin Reis WBC 20-50 Abnormal NONE SEEN [facility] Comment on above: Performed By: #### U RCX #### [facility] [address] [place] [address] Dr. Marvin Reis YEAST PRESENT Abnormal NONE SEEN [facility] Comment on above: Performed By: #### U RCX #### [facility] [address] [place] [address] Dr. Marvin Reis CULTURE URINEon 03-18-2022 CULTURE URINE Culture Observations : No growth Normal [facility] Comment on above: Performed By: #### U RCX #### [facility] [address] [place] [address] Dr. Marvin Reis UA RANDOM W/MICROSCOPICon BACTERIA NONE SEEN Normal NONE SEEN [facility] Comment on above: Performed By: #### U AMIC #### [facility] [address] [address] [address] Marvin Reis Bilirubin Ql (U) Negative Normal NEGATIVE [facility] Comment on above: Performed By: #### U AMIC #### [facility] [address] [address] [address] Marvin Reis CAST NONE SEEN Normal NONE SEEN [facility] Comment on above: Performed By: #### U AMIC #### [facility] [address] [place] [address] Dr. Marvin Reis Clarity (U) CLOUDY Abnormal CLEAR [facility] Comment on above: Performed By: #### U AMIC #### [facility] [address] [address] [address] Marvin Reis Color (U) LT. YELLOW Normal YELLOW [facility] Comment on above: Performed By: #### U AMIC #### [facility] [address] [place] [address] Dr. Marvin Reis Crystals LM Nom (Urine sed) NONE SEEN Normal NONE SEEN [facility] Comment on above: Performed By: #### U AMIC #### [facility] [address] [place] [address] Dr. Marvin Reis Epithelial cells LM Ql (Urine sed) RARE Normal NONE SEEN /RARE [facility] Comment on above: Performed By: #### U AMIC #### [facility] [address] [place] [address] Dr. Marvin Reis Glucose Ql (U) Negative Normal NEGATIVE [facility] Comment on above: Performed By: #### U AMIC #### [facility] [address] [place] [address] Dr. Marvin Reis Hemoglobin Ql (U) TRACE-INTACT Abnormal NEGATIVE [facility] Comment on above: Performed By: #### U AMIC #### [facility] [address] [place] [address] Dr. Marvin Reis Ketones Ql (U) Negative Normal NEGATIVE [facility] Comment on above: Performed By: #### U AMIC #### [facility] [address] [place] [address] Dr. Marvin Reis LEUKOCYTES MODERATE Abnormal NEGATIVE [facility] Comment on above: Performed By: #### U AMIC #### [facility] [address] [address] [address] Marvin Reis MUCOUS NONE SEEN Normal NONE SEEN [facility] Comment on above: Performed By: #### U AMIC #### [facility] [address] [address] [address] Marvin Reis Nitrite Ql (U) Negative Normal NEGATIVE [facility] Comment on above: Performed By: #### U AMIC #### [facility] [address] [address] [address] Marvin Reis pH (U) 6.0 [pH] Normal 5-9 [facility] Comment on above: Performed By: #### U AMIC #### [facility] [address] [place] [address] Dr. Marvin Reis RBC NONE SEEN Abnormal 0-2 [facility] Comment on above: Performed By: #### U AMIC #### [facility] [address] [place] [address] Dr. Marvin Reis SPEC GRAVITY 1.015 Normal 1.005-<=1.025 [facility] Comment on above: Performed By: #### U AMIC #### [facility] [address] [address] [address] Marvin Reis UA PROTEIN Negative Normal NEGATIVE/ TRACE [facility] Comment on above: Performed By: #### U AMIC #### [facility] [address] [address] [address] Marvin Reis Urobilinogen Qn (U) 0.2 {Robbie'U}/dL Normal 0.2 - 1. 0 [facility] Comment on above: Performed By: #### U AMIC #### [facility] [address] [place] [address] Dr. Marvin Reis WBC 10-20 Abnormal NONE SEEN [facility] Comment on above: Performed By: #### U AMIC #### [facility] [address] [place] [address] Dr. Marvin Reis Coding Summary.on 06-21-2020 Coding Summary. CODING DATE: 06/21/2020 FINAL [facility] STATUS: PAYOR: Worker's Compensation ADMIT [...] Hopper CphT Date Saved: 06/21/2020 12:01 [facility] PT - Assessmentson 0 PT - Assessments [id number] [facility] 06-20-2020 PT - Orders [id number]# 1.00CD:127 [facility] - Workers Compon 06-20-20 20 PT - Workers Comp [id number] 1.00CD:127 [facility] Encounters Encounter Date Encounter Type Care Provider Facility Start: 03-10-2023 End: 03-11-2023 [facility] Start: 03-03-2023 End: 03-03-[address] LAWANDA [...] Facility:[facility] Payers Date Payer Category Payer Medicare [id number] 1961 Unknown [id number] 1960 Unknown [id number] 2.16.84 0.1.332357.3.579.2.593 1960 Unknown [id number] 2.16.84 0.1.861836.3.579.2.593 1958 Unknown [id number] 2.16.84 0.1.711766.3.579.2.593 1958 Unknown [id number] 2.16.84 0.1.661577.3.579.2.593 1958 Unknown [id number] 2.16.84 0.1.497707.3.579.2.593 1958 Unknown [id number] 2.16.84 0.1.548323.3.579.2.593 1958 Unknown [id number] 2.16.84 0.1.207292.3.579.2.593 1958 Unknown [id number] 2.16.84 0.1.982209.3.579.2.593 1958 Unknown [id number] 2.16.84 0.1.896758.3.579.2.593 1958 Unknown [id number] 2.16.84 0.1.543761.3.579.2.593 1958 Unknown [id number] 2.16.84 0.1.124723.3.579.2.593 1958 Unknown [id number] 2.16.84 0.1.685443.3.579.2.593 1958 Unknown [id number] 2.16.84 0.1.011456.3.579.2.593 1958 Unknown [id number] 2.16.84 0.1.164497.3.579.2.593 1958 Unknown [id number] 2.16.84 0.1.271630.3.579.2.593 1958 Unknown [id number] 2.16.84 0.1.267444.3.579.2.593 1958 Unknown [id number] 2.16.84 0.1.963868.3.579.2.593 1958 Unknown [id number] 2.16.84 0.1.328124.3.579.2.593 1958 Unknown [id number] 2.16.84 0.1.033848.3.579.2.593 Summary Purpose Family History No Family History [...] CREATED AUTHOR AUTHOR'S ORGANIZ ATION 03/06/2023 [facility] DATE CREATED AUTHOR AUTHOR'S ORGANIZ ATION 03/11/2023 [facility] DATE CREATED AUTHOR AUTHOR'S ORGANIZ ATION 06/07/2023 [facility] FOR RECORDS PERTAINING TO PATIENTS WHO [...] BE BASED ON THE PRIMARY CLINICAL RECORDS. [employer] [facility]. provides no warranty or guarantee of the accuracy or completeness of information in this document.
--- NOTE | 2024-08-20 09:31 | CM.NOTE ---
Rounds made with Dr. Mckeon, discussed with pt and need for higher level of care. Pt and agree to transfer to [facility], Dr. Mckeon calling for accepting physician.
--- NOTE | 2024-08-20 09:44 | P.DS_ITS ---
DS: Providers Provider Date of admission: 08/18/24 22:07 Primary care physician: Jona Mckeon MD Consults: 08/18/24 19:43 Consult to Pharmacy Routine Consulting Provider: Reason for consultation: Please [place] me when Med Rec is Updated Has provider been notified: No Occupational Therapy Eval and Treat Routine Reason for consultation: Only if needed for Rehab Has provider been notified: No Physical Therapy Eval and Treat Routine Reason for consultation: Eval and Treat Has provider been notified: No 08/19/24 Consult to Dietitian Routine Reason for consultation: wounds Consult to Podiatry Routine Consulting Provider: Oh Jacome Reason for consultation: left heel ulcer Has provider been notified: Yes 08/19/24 00:35 Consult to Wound Care Routine Consulting Provider: Dejuan Reyes Reason for consultation: decubitus ulcers Has provider been notified: No DS: Diagnosis Discharge Diagnosis (1) Weakness: (2) Acute renal failure: (3) Dehydration: (4) Anemia requiring transfusions: (5) Sepsis associated hypotension: (6) Multisystem organ failure: (7) Altered mental status: (8) Chronic complete quadriplegia: (9) Thrombocytopenia: (10) Acute anemia: (11) Sinus tachycardia: (12) Hypotension: (13) Coagulopathy: (14) Hyperchloremic metabolic acidosis: (15) Severe protein-calorie malnutrition: Plan Admission assessment: AMS, Hypotension, tachycardia, resp distress, hyperchloremic metabolic acidosis resulting in sepsis with multisystem organ d ysfunctiuon. (AMS, Acute Renal failure, cardiac). Infectious source likely urine Sepsis with MSOD: IV AB, blood cx, urine cx, Fluid boluses, PRN levophed, albumin for BP support , consider steroids. Based on previous culture results, and resistance patter of the ecoli and pseudomonas, dora start with levofloxacin and fortaz. due to severity of illness and hx of MRSA, adding linezolid- maintain this previous plan. Blood pressures able to be transferred, down to 01 unit on Levophed Acute renal failure-Down somewhat at the time of discharge, suspect need for d ialysis Peripheral edema-deteriorating at the time of transfer-suspect need for dialysis hypothermia persisting.-Improved Acute blood loss anemia - type, cross and transfuse 2 U PBRC, IV protonix-should get his transfusion today, he had antibiotics.-Down slightly today not enough for transfusion Coagulopathy - due to the above- repeat labs, not severe - holding on ffp-no source of active bleeding. His coagulopathy is slightly worse today. Severe hypotension due to the above - see above Quadriplegia - cont with home PT regime Elevated BNP =- checking echo - possible cardiomyopathy due to sepsis Hyperphosphatemia-improved Hyperchloremic metabolic acidosis-deteriorated this morning, will try bicarb push and follow serial pHs. Considerations for bicarb drip. Severe protein calorie malnutrition with significant low albumin-was given 1 do se of albumin last night, considerations for repeating Thrombocytopenia due to bone marrow suppression due to sepsis - monitor daily Admission Status: Sepsis with MSOD due to urinary tract infection with hs of infection from mrsa, and recently pseudomonas and ecoli. Medically neccessary treatment in the ICU will span two midnights. Inpatient status ? DS: Summary Hospital Course Hospital Course: Patient has been well-known to me for over the last 25 years, presented to the emergency room with increasing altered mental status increasing weakness, in the ER found to have sepsis with multisystem organ dysfunction. Transferred up to the intensive care unit given fluids 2 L the first 8 hours. Blood pressure diminished, was placed on Levophed got up to about 6 mics of Levophed. Over last couple days we have been able to wean the Levophed, given fluid resuscitation 2 more liters yesterday. Other issue is his metabolic acidosis, was improving yesterday but this morning is back down to pH of just over 7.1. Will repeat the bicarb dose. Currently holding off on bicarb drip, with condition not improving, peripheral edema increasing, BNP elevated despite essentially normal ejection fraction on echocardiogram, patient likely need for dialysis. Case discussed with [facility]. Patient will be transferred out of care of Dr. Shearer. Patient will be admitted to the intensive care unit at [facility]. I will follow patient at discharge Time Spent with Patient Time attestation: Total time spent providing and/or coordinating discharge services: Exam Constitutional Vital Signs, click to edit/add: Last Vital Signs Temp 98.6 F 08/20/24 08:00 Pulse 87 08/20/24 09:00 Resp 16 08/20/24 09:00 BP 83/45 L 08/20/24 09:00 Pulse Ox 91 L 08/20/24 09:00 O2 Del Method Nasal Cannula 08/20/24 06:00 O2 Flow Rate 1 08/20/24 06:00 Documenting provider has reviewed patient's vital signs: yes Common normals: no apparent distress (moderate to at times severe distress due to pain) Exam limitations: altered mental status (Does seem to be going more confused this morning than previous days, ) HENMT Common normals: head/scalp atraumatic Mouth: tongue not normal (dry) Chest Common normals: inspection of chest normal Respiratory Common normals: normal respiratory effort Auscultation: diminished lung sounds Cardio Common normals: irregular rate Rate: tachycardic Extremity Common normals: abnormal to inspection (2+ edema bilateral lower extremities, wound right lower extremity) Neuro Common normals: CN's II-XII intact bilaterally Sensorium/orientation: awake and alert (but slow in mentation) Motor exam: abnormal strength (some movement of arms, no movement of legs - his baseline) DS: Data Data Completed and Pending Labs on day of discharge: Labs from last 24 hours 08/20/24 08/19/24 08/19/24 05:15 22:00 14:27 WBC 9.0 11.9 H RBC 2.73 L 2.97 L Hgb 7.5 L 8.2 L Hct 25.1 L 27.7 L MCV 91.9 93.3 MCH 27.5 27.6 MCHC 29.9 29.6 L RDW 17.2 H 16.7 H Plt Count 100 L 109 L MPV 10.0 11.1 Neut % (Auto) 77.7 H 79.6 H Lymph % (Auto) 7.6 L 4.8 L [place] % (Auto) 10.5 9.6 Eos % (Auto) 1.2 1.0 Baso % (Auto) 0.1 L 0.4 Neut # (Auto) 7.0 H 9.5 H Lymph # (Auto) 0.7 L 0.6 L [place] # (Auto) 0.9 H 1.1 H Eos # (Auto) 0.1 0.1 Baso # (Auto) 0.0 0.1 Abs Immat Gran (auto) 0.26 H 0.55 H Imm/Tot Granulo (auto) 2.9 H 4.6 H VBG pH 7.161 L 7.252 L VBG pCO2 41.4 26.9 L Sodium 142 141 Potassium 4.8 5.0 Chloride 114 H 113 H Carbon Dioxide 15.9 L 9.7 L Anion Gap 16.9 23.3 BUN 78.0 H* 78.0 H* Creatinine 4.23 H 4.15 H Est GFR ( Amer) 17 L 18 L Est GFR (Non-Af Amer) 14 L 15 L BUN/Creatinine Ratio 18.4 18.8 Glucose 92 104 Calcium 7.9 L 7.6 L Phosphorus 6.7 H* Total Bilirubin 0.4 AST 8 L ALT <6 L Alkaline Phosphatase 65 NT-Pro-B Natriuret Pep 8660.0 H* Total Protein 4.6 L Albumin 1.7 L Globulin 2.9 Albumin/Globulin Ratio 0.6 Stool Occult Blood Positive A Blood Type Antibody Screen Antibody Identification Crossmatch ([facility]) 08/18/24 18:00 WBC RBC Hgb Hct MCV MCH MCHC RDW Plt Count MPV Neut % (Auto) Lymph % (Auto) [place] % (Auto) Eos % (Auto) Baso % (Auto) Neut # (Auto) Lymph # (Auto) [place] # (Auto) Eos # (Auto) Baso # (Auto) Abs Immat Gran (auto) Imm/Tot Granulo (auto) VBG pH VBG pCO2 Sodium Potassium Chloride Carbon Dioxide Anion Gap BUN Creatinine Est GFR ( Amer) Est GFR (Non-Af Amer) BUN/Creatinine Ratio Glucose Calcium Phosphorus Total Bilirubin AST ALT Alkaline Phosphatase NT-Pro-B Natriuret Pep Total Protein Albumin Globulin Albumin/Globulin Ratio Stool Occult Blood Blood Type O Positive Antibody Screen Positive Antibody Identification Anti-E Crossmatch ([facility]) See Detail Discharge Plan Discharge Disposition: er [facility] Condition: Fair
[2024-08-20] MEDS: NOREPINEPHRINE BITARTRATE/D5W 4 MG/250 ML PREMIX 7.5 MG IV (09:45)
--- NOTE | 2024-08-20 10:29 | PC.NURSE ---
Report called to Maryjo Day
== END 2024-08-20 11:29 | disposition short-term general hospital (02) | DRG 871 ==
LOC: ER 19:55 → ICU 08-19 06:39
PROVIDERS: Physician Assistant; Admitting Provider Family Medicine; Emergency Provider Internal Medicine; PCP Family Medicine; Visit Provider Family Medicine
DX: A41.9 Sepsis, unspecified organism (principal); E43 Unspecified severe protein-calorie malnutrition; G82.50 Quadriplegia, unspecified; E87.20 Acidosis, unspecified; D62 Acute posthemorrhagic anemia; D68.9 Coagulation defect, unspecified; N17.9 Acute kidney failure, unspecified; N39.0 Urinary tract infection, site not specified; L97.219 Non-pressure chronic ulcer of right calf with unspecified severity; R65.20 Severe sepsis without septic shock; E87.8 Other disorders of electrolyte and fluid balance, not elsewhere classified; R06.03 Acute respiratory distress; Z86.14 Personal history of Methicillin resistant Staphylococcus aureus infection; D69.6 Thrombocytopenia, unspecified; E86.0 Dehydration; Z68.28 Body mass index [BMI] 28.0-28.9, adult; Z87.440 Personal history of urinary (tract) infections; Z99.3 Dependence on wheelchair; R53.1 Weakness; R68.0 Hypothermia, not associated with low environmental temperature; R79.89 Other specified abnormal findings of blood chemistry; E83.39 Other disorders of phosphorus metabolism; L98.499 Non-pressure chronic ulcer of skin of other sites with unspecified severity; L89.620 Pressure ulcer of left heel, unstageable; R60.0 Localized edema
CPT/HCPCS: 36415; 36430; 36592; 51702; 70450; 71045; 80048; 80053; 81001; 82800; 83605; 83735; 83880; 84100; 84443; 84484; 85007; 85025; 85027; 85610; 85730; 86850; 86870; 86880; 86885; 86900; 86901; 86902; 86905; 86906; 86920; 86922; 87040; 87086; 93005; 93306; 94667; 94668; 94761; 96360; 96361; 97165; 99285; A6213; G0328; J0713; J2020; J2405; P9016; P9046

== ENCOUNTER 2024-09-16 11:11 | Outpatient (REF) | payer SELFPAY ==
--- OUTSIDE RECORDS SUMMARY | 2024-09-16 11:28 | XMS_ITS | CCD ---
Author Organization [facility] [employer] Care Team Providers Care Rhinestone Setter Name Role Phone HOY ., DR WEBBER [...] Unavailable HOY ., DR WEBBER Admitting Unavailable [place], DR MAGY [place] Consulting Unavailable HOY ., [...] HOY ., DR WEBBER Primary Care Unavailable ZUHAIR MERCEDESAS Referring Unavailable IGNACIA, CAT M Admitting Unavailable IGNACIA, CAT M Attending Unavailable LAWANDA MCKEON Referring Unavailable NEGRON, HERBERT Consulting Unavailable YAKELINIGOR BARGERI U Consulting Unavailable ONLY), [facility] W[facility] (INPATIENT Consult ing Unavailable LORNA DUKE Consulting Unavailable KAREN PARK Consulting Unavailable TTH ONLY, [facility] P[facility] MONARY [facility] Consulting Unavailable TTH ONLY, [facility] Consulting Unavailable DIVISION OF INFECTIOUS DISEASE, [facility] Consulting Unavailable MARBIN TAYLOR Consulting Unavailable MONTY PEARSON Consulting Unavailable Hoy MD, Lawanda M Primary Care Provider Allergies Allergy Classification Reported Allergen(s) Allergy Type Date of Onset Reaction(s) Facility (1 source) ceFAZolin Drug Allergy 04-21-20 13 [facility] Repository (1 source) Cilastatin / Imipenem Drug Allergy 04-21-20 13 [facility] Repository (1 source) Readi-Cat Drug allergy (disorder) 04-21-20 13 [facility] Repository (5 sources) ceFAZolin; Translations: [CEFAZOLIN] Drug Allergy 12-01-19 13 Anaphylaxis [facility] Repository (1 source) Cephalexin; Translations: [CEPHALEXIN MONOHYDRATE] Drug Allergy 08-03-20 09 [facility] Repository (1 source) Promazine; Translations: [PROMAZINE] Drug Allergy 12-01-19 13 [facility] Repository (4 sources) Sulfamethoxazole / Trimethoprim; Translations: [SULFAMETHOXAZOLE-TR IMETHOPRIM] Drug Allergy 03-10-20 23 Rash [facility] Repository (5 sources) IODINATED CONTRAST MEDIA; Translations: [IODINATED CONTRAST MEDIA] Propensity to adverse reactions to drug (disorder) 12-01-19 13 Anaphylaxis [facility] Repository (4 sources) Promethazine; Translations: [PROMETHAZINE] Drug Allergy 08-23-20 24 Anaphylaxis [facility] Repository Medications Current Medications Medication Drug Class(es) Dates Sig (Normalized) Sig (Original) B complex-vitamin C-folic acid (DIALYVITE) 100-1 mg tablet (2 sources) Start: 09-08-2024 take 1 tablet by mouth in the morning B complex-vitamin C-folic acid (DIALYVITE) 100-1 mg tablet Take 1 tablet by mouth in the morning. 30 tablet 2 09/08/2024 Active bumetanide 1 mg oral tablet (2 sources) Loop Diuretic Start: 09-10-2024 End: 12-09-2024 take 3 tablets by mouth every other day bumetanide (BUMEX) 1 mg tablet Take 3 tablets (3 mg total) by mouth every other day for 90 days. 45 tablet 2 09/10/2024 12/09/2024 Active 72 hr fentaNYL 0.1 mg/hr transdermal system (4 sources) Opioid Agonist apply 1 dose transdermal route every hour fentaNYL (DURAGESIC) 50 mcg/hr Place 1 patch on the skin every third day. Max Daily Amount: 1 patch Active apply 1 dose transdermal route e very hour fentaNYL (DURAGESIC) 100 mcg/hr Place 1 patch on the skin every third day. Max Daily Amount: 1 patch Active gabapentin 300 mg oral capsule (2 sources) Anti-epileptic Agent take 1 capsule by mouth once daily at bedtime gabapentin (NEURONTIN) 300 mg capsule Take 1 capsule (300 mg total) by mouth once daily at bedtime. Active midodrine hydrochloride 5 mg oral tablet (2 sources) alpha-Adrenergic Agonist Start: End: take 1 tablet by mouth three times daily as needed midodrine (PROAMATINE) 5 mg tablet Take 1 tablet (5 mg total) by mouth 3 (three) times a day as needed (systolic blood pressure 30 tablet 2 09/08/2024 12/07/2024 Active sevelamer carbonate 800 mg oral tablet (2 sources) Phosphate Binder Start: sevelamer (RENVELA) 800 mg tablet Take 1 tablet (800 mg total) by mouth in the morning and 1 tablet (800 mg total) at noon and 1 tablet (800 mg total) in the evening. Take with meals. 90 tablet 2 09/08/2024 Active tolterodine tartrate 1 mg oral tablet (2 sources) Cholinergic Muscarinic Antagonist Start: take 2 tablets by mouth in the morning, then take 2 tablets by mouth at bedtime tolterodine (DETROL) 1 mg tablet Take 2 tablets (2 mg total) by mouth in the morning and 2 tablets (2 mg total) before bedtime. 06/08/2024 Active vitamin b12 1 mg oral tablet (2 sources) Vitamin B12 Start: take 1 tablet by mouth in the morning cyanocobalamin 1000 MCG tablet Take 1 tablet (1,000 mcg total) by mouth in the morning. 30 tablet 2 09/09/2024 Active Problems Problem Classification Problem Date Documented Da te Episodic/Chronic Cardiac dysrhythmias (1 source) Cardiac arrhythmia, unspecified; Translations: [Cardiac arrhythmia, unspecified] Onset: 08-20-2024 Chronic Chronic kidney disease (3 sources) Chronic kidney disease, stage 4 (severe); Translations: [Chronic kidney disease stage 4] Onset: 09-07-2024 09-07-2024 Chronic Chronic ulcer of skin (20 sources) Pressure ulcer of left heel, stage 4; Translations: [Pressure ulcer of sacral region, stage 3] Onset: 08-23-2024 08-23-2024 Chronic Coagulation and hemorrhagic disorders (3 sources) Thrombocytopenia, unspecified; Translations: [Thrombocytopenic disorder] Onset: 09-07-2024 09-07-2024 Chronic Gastrointestinal hemorrhage (3 sources) Melena; Translations: [Melena] Onset: 08-20-2024 09-07-2024 Episodic Neoplasms of unspecified nature or uncertain behavior (1 source) Refractory anemia, unspecified; Translations: [Refractory anemia, unspecified] Onset: 08-20-2024 Episodic Open wounds of head; neck; and trunk (3 sources) Unspecified open wound of scrotum and testes, initial encounter; Translations: [Open wound of scrotum] Onset: 08-23-2024 08-23-2024 Episodic Other diseases of bladder and urethra (6 sources) Neuromuscular dysfunction of bladder, unspecified; Translations: [NEUROMUSCULR DYSFNCTION BLADDER UNS] Onset: 10-01-2022 Chronic Other diseases of bladder and urethra (2 sources) Bladder disorder, unspecified; Translations: [Bladder disorder, unspecified] Onset: 03-10-2023 Chronic Other diseases of bladder and urethra (2 sources) Neurogenic bladder; Translations: [Neuromuscular dysfunction of bladder, unspecified] Onset: 08-16-1999 08-30-2024 Chronic Other diseases of kidney and ureters (1 source) Disorder of kidney and ureter, unspecified; Translations: [DISORDER KIDNEY AND URETER UNS] Onset: 12-05-2022 Episodic Other gastrointestinal disorders (1 source) Neurogenic bowel, not elsewhere classified; Translations: [Neurogenic bowel, not elsewhere classified] Onset: 08-30-2024 Chronic Other gastrointestinal disorders (2 sources) Neurogenic bowel; Translations: [Neurogenic bowel, not elsewhere classified] Onset: 08-16-1999 08-30-2024 Chronic Other liver diseases (1 source) Hepatomegaly, not elsewhere classified; Translations: [HEPATOMEGALY NEC] Onset: 12-05-2022 Episodic Other nutritional; endocrine; and metabolic disorders (2 sources) Hyperphosphatemia; Translations: [Other disorders of phosphorus metabolism] Onset: 09-07-2024 09-07-2024 Chronic Other screening for suspected conditions (not mental disorders or infectious disease) (1 source) Abnormal findings on diagnostic imaging of other abdominal regions, including retroperitoneum; Translations: [ABN FIND DX IMAG OTH AB REGION W/RP] Onset: 12-05-2022 Episodic Paralysis (2 sources) 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 coli]] Onset: 09-07-2024 09-07-2024 Episodic Unclassified (1 source) Pressure-induced deep tissue damage of right heel; Translations: [Pressure-induced deep tissue damage of right heel] Onset: 08-23-2024 Unclassified (1 source) Ventricular tachycardia, unspecified; Translations: [Ventricular tachycardia, unspecified] Onset: 08-20-2024 Urinary tract infections (9 sources) Urinary tract infection, site not specified; Translations: [Urinary tract infectious disease] Onset: 09-24-2022 Episodic Results Test Name Value Interpretation Reference Range Facility BASIC METABOLIC PANLon 09-08 Anion gap [Moles/Vol] 14 mmol/L Normal 5-15 [facility] Comment on above: Performed By: #### C BCA, BMP, , 2776-11 ####[facility] ([id number])[address] [facility], [address] [place] [address] Calcium [Mass/Vol] 8.6 mg/dL Normal 8.5-10.5 [facility] Comment on above: Performed By: #### C BCA, BMP, , 2776-11 ####[facility] ([id number])[address], [address], [place] [address] Chloride [Moles/Vol] 106 mmol/L Normal 98-109 [facility] Comment on above: Performed By: #### C BCA, BMP, , 2776-11 ####[facility] ([id number])[address], [address], [place] [address] CO2 [Moles/Vol] 18 mmol/L Low 22-32 [facility] Comment on above: Performed By: #### C KERRY, BMP, , 2776-11 ####[facility] ([id number])[address], [address] [place] [address] Creatinine [Mass/Vol] 3.48 mg/dL High 0.60-1.30 [facility] Comment on above: Result Comment: METH OD TRACEABLE TO IDMS STANDARD Performed By: #### C KERRY, ADRIANA, , 2776-11 ####[facility] ([id number])[address] [address] [place] [address] GFR/1.73 sq M.predicted among non-blacks MDRD (S/P/Bld) [Vol rate/Area] 19 mL/min/{1.73_m2} Low >59 [facility] Comment on above: Result Comment: Repo rted eGFR is based on theCKD-EPI 2020 equation that doesnot use a race coefficient. Performed By: #### C BCA, BMP, , 2776-11 ####[facility] ([id number])[address], [address], [place] [address] Glucose [Mass/Vol] 85 mg/dL Normal 65-99 [facility] Comment on above: Performed By: #### C BCA, BMP, , 2776-11 ####[facility] ([id number])[address], [address] [place] [address] Potassium [Moles/Vol] 4.5 mmol/L Normal 3.5-5.0 [facility] Comment on above: Performed By: #### C KERRY BMP, , 2776-11 ####[facility] ([id number])[address], [address] [place] [address] Sodium [Moles/Vol] 138 mmol/L Normal 134-146 [facility] Comment on above: Performed By: #### C KERRY, BMP, , 2776-11 ####[facility] ([id number])[address] [address] [place] [address] 15275 Urea nitrogen [Mass/Vol] 82 mg/dL High 5-27 [facility] Comment on above: Performed By: #### C KERRY, BMP, , 2776-11 ####[facility] ([id number])[address] [address] [place] [address] CBC AND AUTO DIFFon 09-08-20 24 ABSOLUTE BASOPHIL 0.1 X10E9/L Normal 0.0-0.2 [facility] Comment on above: Performed By: #### Belle PAYNE, BMP, , 2776-11 ####[facility] ([id number])[address] [address] [place] [address] ABSOLUTE NEUTROPHIL 7.7 X10E9/L High 1.5-6.6 [facility] Comment on above: Performed By: #### C KERRY, BMP, , 2776-11 ####[facility] ([id number])[address] [address] Basophils/100 WBC (Bld) 0.8 % Normal [facility] Comment on above: Performed By: #### C KERRY, BMP, , 2776-11 ####[facility] ([id number])[address], [address] [place] [address]77 Eosinophils (Bld) [#/Vol] 0.3 10*3/uL Normal 0.0-0.4 [facility] Comment on above: Performed By: #### C KERRY, ADRIANA, , 2776-11 ####[facility] ([id number])[address], [address] [place] [address] Eosinophils/100 WBC (Bld) 3.0 % Normal [facility] Comment on above: Performed By: #### C KERRY, ADRIANA, , 2776-11 ####[facility] ([id number])[address], [address] [place] [address]693 Erythrocyte distribution width (RBC) [Ratio] 20.1 % High 11.5-15.0 [facility] Comment on above: Performed By: #### C KERRY, BMP, , 2776-11 ####[facility] ([id number])[address] [address] [place] [address] Hematocrit (Bld) [Volume fraction] 29.9 % Low 39-49 [facility] Comment on above: Performed By: #### C KERRY, BMP, , 2776-11 ####[facility] ([id number])[address] [address] [place] [address]33 Hemoglobin (Bld) [Mass/Vol] 10.0 g/dL Low 13.0-17.0 [facility] Comment on above: Performed By: #### C KERRY, BMP, , 2776-11 ####[facility] ([id number])[address] [address] Lymphocytes (Bld) [#/Vol] 0.8 10*3/uL Low 1.0-3.5 [facility] Comment on above: Performed By: #### C KERRY, BMP, , 2776-11 ####[facility] ([id number])[address], [address], [place] [address] Lymphocytes/100 WBC (Bld) 7.7 % Normal [facility] Comment on above: Performed By: #### C BCA, BMP, , 2776-11 ####[facility] ([id number])[address], [address], [place] [address] MCH (RBC) [Entitic mass] 31.0 pg Normal 27-34 [facility] Comment on above: Performed By: #### C BCA, BMP, , 2776-11 ####[facility] ([id number])[address], [address], [place] [address] MCHC (RBC) [Mass/Vol] 33.6 g/dL Normal 32-36 [facility] Comment on above: Performed By: #### C BCA, BMP, , 2776-11 ####[facility] ([id number])[address] [address] [place] [address] 98553 MCV (RBC) [Entitic vol] 92 fL Normal 80-100 [facility] Comment on above: Performed By: #### Belle BCA, BMP, , 2776-11 ####[facility] ([id number])[address] [address] [place] [address], [place] [address] Monocytes (Bld) [#/Vol] 0.9 10*3/uL Normal 0-0.9 [facility] Comment on above: Performed By: #### C BCA, BMP, , 2776-11 ####[facility] ([id number])[address] [address], [place] [address] Monocytes/100 WBC (Bld) 8.9 % Normal [facility] Comment on above: Performed By: #### C BCA, BMP, , 2776-11 ####[facility] ([id number])[address], [address], [place] [address] Neutrophils/100 WBC (Bld) 79.6 % Normal [facility] Comment on above: Performed By: #### C KERRY, ADRIANA, , 2776-11 ####[facility] ([id number])[address], [address], [place] [address] Platelet mean volume (Bld) [Entitic vol] 8.4 fL Normal 7-12 [facility] Comment on above: Performed By: #### C KERRY, [facility], , 2776-11 ####[facility] ([id number])[address], [address], [place] [address] Platelets (Bld) [#/Vol] 278 10*3/uL Normal 150-450 [facility] Comment on above: Performed By: #### C KERRY [facility], , 2776-11 ####[facility] ([id number])[address] [address], [place] [address] RBC COUNT 3.24 X10E12/L Low 4.10-5.70 [facility] Comment on above: Performed By: #### ADRIANA Odonnell BCA, , 2776-11 ####[facility] ([id number])[address] [address] [place] [address] WBC (Bld) [#/Vol] 9.7 10*3/uL Normal 4.0-11.0 [facility] Comment on above: Performed By: #### C KERRY, BMP, , 2776-11 ####[facility] ([id number])[address], [address], [place] [address] MAGNESIUMon 09-08-2024 Magnesium [Mass/Vol] 1.9 mg/dL Normal 1.8-2.6 [facility] Comment on above: Performed By: #### C BCA, BMP, , 2776-11 ####[facility] ([id number])[address], [address], [place] [address] PHOSPHORUSon 09-08-2024 Phosphate [Mass/Vol] 6.0 mg/dL High 2.4-4.9 [facility] Comment on above: Performed By: #### C BCA, BMP, , 2776-11 ####[facility] ([id number])[address], [address], [place] [address] BASIC METABOLIC PANLon 09-07 Anion gap [Moles/Vol] 14 mmol/L Normal 5-15 [facility] Comment on above: Performed By: #### C BCA, BMP, , 2776-11, 1988-03 ####[facility] ([id number])[address], [address], [place] [address] Calcium [Mass/Vol] 8.3 mg/dL Low 8.5-10.5 [facility] Comment on above: Performed By: #### C BCA, BMP, , 2776-11, 1988-03 ####[facility] ([id number])[address], [address], [place] [address] Chloride [Moles/Vol] 109 mmol/L Normal 98-109 [facility] Comment on above: Performed By: #### C BCA, BMP, , 2776-11, 1988-03 ####[facility] ([id number])[address], [address], [place] [address] CO2 [Moles/Vol] 18 mmol/L Low 22-32 [facility] Comment on above: Performed By: #### C BCA, BMP, , 2776-11, 1988-03 ####[facility] ([id number])[address] [address] Creatinine [Mass/Vol] 3.41 mg/dL High 0.60-1.30 [facility] Comment on above: Result Comment: METH OD TRACEABLE TO IDMS STANDARD Performed By: #### C ADRIANA PAYNE, , 2776-11, 1988-03 ####[facility] ([id number])[address] [address] GFR/1.73 sq M.predicted among non-blacks MDRD (S/P/Bld) [Vol rate/Area] 19 mL/min/{1.73_m2} Low >59 [facility] Comment on above: Result Comment: Repo rted eGFR is based on theCKD-EPI 2020 equation that doesnot use a race coefficient. Performed By: #### C ADRIANA PAYNE, , 2776-11, 1988-03 ####[facility] ([id number])[address] [address] Glucose [Mass/Vol] 91 mg/dL Normal 65-99 [facility] Comment on above: Performed By: #### C ADRIANA PAYNE, , 2776-11, 1988-03 ####[facility] ([id number])[address] [address] Potassium [Moles/Vol] 4.1 mmol/L Normal 3.5-5.0 [facility] Comment on above: Performed By: #### C ADRIANA PAYNE, , 2776-11, 1988-03 ####[facility] ([id number])[address] [address] Sodium [Moles/Vol] 141 mmol/L Normal 134-146 [facility] Comment on above: Performed By: #### C ADRIANA PAYNE, , 2776-11, 1988-03 ####[facility] ([id number])[address] [place] [address] Urea nitrogen [Mass/Vol] 77 mg/dL High 5-27 [facility] Comment on above: Performed By: #### C KERRY BMP, , 2776-11, 1988-03 ####[facility] ([id number])[address], [address] [place] [address] CBC AND AUTO DIFFon 09-07-20 ABSOLUTE BASOPHIL 0.1 X10E9/L Normal 0.0-0.2 [facility] Comment on above: Performed By: #### C KERRY BMP, , 2776-11, 1988-03 ####[facility] ([id number])[address], [address] [place] [address] ABSOLUTE NEUTROPHIL 7.8 X10E9/L High 1.5-6.6 [facility] Comment on above: Performed By: #### Belle PAYNE BMP, , 2776-11, 1988-03 ####[facility] ([id number])[address] [address] [place] [address] Basophils/100 WBC (Bld) 0.5 % Normal [facility] Comment on above: Performed By: #### C KERRY BMP, , 2776-11, 1988-03 ####[facility] ([id number])[address], [address] [place] [address] Eosinophils (Bld) [#/Vol] 0.5 10*3/uL High 0.0-0.4 [facility] Comment on above: Performed By: #### C KERRY, BMP, , 2776-11, 1988-03 ####[facility] ([id number])[address], [address] [place] [address] Eosinophils/100 WBC (Bld) 5.0 % Normal [facility] Comment on above: Performed By: #### C KERRY BMP, , 2776-11, 1988-03 ####[facility] ([id number])[address] [address] Erythrocyte distribution width (RBC) [Ratio] 19.3 % High 11.5-15.0 [facility] Comment on above: Performed By: #### C KERRY, [facility], , 2776-11, 1988-03 ####[facility] ([id number])[address] [address] Hematocrit (Bld) [Volume fraction] 27.7 % Low 39-49 [facility] Comment on above: Performed By: #### C KERRY, [facility], , 2776-11, 1988-03 ####[facility] ([id number])[address] [address] Hemoglobin (Bld) [Mass/Vol] 9.1 g/dL Low 13.0-17.0 [facility] Comment on above: Performed By: #### C KERRY, [facility], , 2776-11, 1988-03 ####[facility] ([id number])[address] [address] Lymphocytes (Bld) [#/Vol] 0.6 10*3/uL Low 1.0-3.5 [facility] Comment on above: Performed By: #### C KERRY, [facility], , 2776-11, 1988-03 ####[facility] ([id number])[address] [address] Lymphocytes/100 WBC (Bld) 6.5 % Normal [facility] Comment on above: Performed By: #### C KERRY, [facility], , 2776-11, 1988-03 ####[facility] ([id number])[address] [address] MCH (RBC) [Entitic mass] 30.6 pg Normal 27-34 [facility] Comment on above: Performed By: #### C KERRY, BMP, , 2776-11, 1988-03 ####[facility] ([id number])[address], [address] [place] [address] MCHC (RBC) [Mass/Vol] 32.8 g/dL Normal 32-36 [facility] Comment on above: Performed By: #### C BCA, BMP, , 2776-11, 1988-03 ####[facility] ([id number])[address], [address] [place] [address] MCV (RBC) [Entitic vol] 93 fL Normal 80-100 [facility] Comment on above: Performed By: #### Belle BCA, BMP, , 2776-11, 1988-03 ####[facility] ([id number])0 [address] [address] [place] [id number] Monocytes (Bld) [#/Vol] 0.9 10*3/uL Normal 0-0.9 [facility] Comment on above: Performed By: #### Belle BCA, BMP, , 2776-11, 1988-03 ####[facility] ([id number])[address] [address] Monocytes/100 WBC (Bld) 9.2 % Normal [facility] Comment on above: Performed By: #### Belle BCA, BMP, , 2776-11, 1988-03 ####[facility] ([id number])[address] [address] Neutrophils/100 WBC (Bld) 78.8 % Normal [facility] Comment on above: Performed By: #### Belle BCA, BMP, , 2776-11, 1988-03 ####[facility] ([id number])[address], [place] [address] Platelet mean volume (Bld) [Entitic vol] 8.6 fL Normal 7-12 [facility] Comment on above: Performed By: #### Belle PAYNE [facility], , 2776-11, 1988-03 ####[facility] ([id number])[address] [address] [place] [address] Platelets (Bld) [#/Vol] 218 10*3/uL Normal 150-450 [facility] Comment on above: Performed By: #### Belle PAYNE, [facility], , 2776-11, 1988-03 ####[facility] ([id number])[address] [address] [place] [address] RBC COUNT 2.98 X10E12/L Low 4.10-5.70 [facility] Comment on above: Performed By: #### Belle PAYNE [facility], , 2776-11, 1988-03 ####[facility] ([id number])[address] [address] [place] [address] WBC (Bld) [#/Vol] 9.9 10*3/uL Normal 4.0-11.0 [facility] Comment on above: Performed By: #### ADRIANA Odonnell BCA, , 2776-11, 1988-03 ####[facility] ([id number])[address] [address] [place] [address] CRP [Mass/Vol]on 09-07-2024 C REACTIVE PROTEIN 2.2 mg/dL High 0.000-0.744 [facility] Comment on above: Performed By: #### Belle PAYNE [facility], , 2776-11, 1988-03 ####[facility] ([id number])[address] [address] [place] [address] MAGNESIUMon 09-07-2024 Magnesium [Mass/Vol] 2.0 mg/dL Normal 1.8-2.6 [facility] Comment on above: Performed By: #### C BCA, BMP, , 2776-11, 1988-03 ####[facility] ([id number])[address], [place] [address] PHOSPHORUSon 09-07-2024 Phosphate [Mass/Vol] 6.0 mg/dL High 2.4-4.9 [facility] Comment on above: Performed By: #### C BCA, BMP, , 2776-11, 1988-03 ####[facility] ([id number])[address], [place] [address] XR CALCANEOUS LT MIN 2 VWSon 09-07-2024 XR CALCANEOUS LT MIN 2 VWS Normal [facility] BASIC METABOLIC PANLon 09-06 Anion gap [Moles/Vol] 13 mmol/L Normal 5-15 [facility] Comment on above: Performed By: #### C BCA, BMP, , 2776-11 ####[facility] ([id number])[address], [address], [place] [address] Calcium [Mass/Vol] 8.4 mg/dL Low 8.5-10.5 [facility] Comment on above: Performed By: #### C BCA, BMP, , 2776-11 ####[facility] ([id number])[address], [address], [place] [address] Chloride [Moles/Vol] 109 mmol/L Normal 98-109 [facility] Comment on above: Performed By: #### C BCA, BMP, , 2776-11 ####[facility] ([id number])[address], [address], [place] [address] CO2 [Moles/Vol] 18 mmol/L Low 22-32 [facility] Comment on above: Performed By: #### C KERRY BMP, , 2776-11 ####[facility] ([id number])[address] [address], [place] [address] Creatinine [Mass/Vol] 3.38 mg/dL High 0.60-1.30 [facility] Comment on above: Result Comment: METH OD TRACEABLE TO IDMS STANDARD Performed By: #### C KERRY BMP, , 2776-11 ####[facility] ([id number])[address] [address], [place] [address] GFR/1.73 sq M.predicted among non-blacks MDRD (S/P/Bld) [Vol rate/Area] 19 mL/min/{1.73_m2} Low >59 [facility] Comment on above: Result Comment: Repo rted eGFR is based on theCKD-EPI 2020 equation that doesnot use a race coefficient. Performed By: #### C KERRY [facility], , 2776-11 ####[facility] ([id number])[address] [address] Glucose [Mass/Vol] 132 mg/dL High 65-99 [facility] Comment on above: Performed By: #### C ADRIANA PAYNE, , 2776-11 ####[facility] ([id number])[address] [place] [address] Potassium [Moles/Vol] 4.4 mmol/L Normal 3.5-5.0 [facility] Comment on above: Performed By: #### C KERRY, BMP, , 2776-11 ####[facility] ([id number])[address] [address], [place] [address] Sodium [Moles/Vol] 140 mmol/L Normal 134-146 [facility] Comment on above: Performed By: #### C BCA, BMP, , 2776-11 ####[facility] ([id number])[address], [address], [place] [address] Urea nitrogen [Mass/Vol] 72 mg/dL High 5-27 [facility] Comment on above: Performed By: #### C KERRY, BMP, , 2776-11 ####[facility] ([id number])[address], [address], [place] [address] CBC AND AUTO DIFFon 09-06-20 24 ABSOLUTE BASOPHIL 0.1 X10E9/L Normal 0.0-0.2 [facility] Comment on above: Performed By: #### C KERRY, BMP, , 2776-11 ####[facility] ([id number])[address], [address], [place] [address] ABSOLUTE NEUTROPHIL 10.1 X10E9/L High 1.5-6.6 [facility] Comment on above: Performed By: #### C KERRY, BMP, , 2776-11 ####[facility] ([id number])[address], [address] [place] [address] Basophils/100 WBC (Bld) 0.5 % Normal [facility] Comment on above: Performed By: #### C BCA, BMP, , 2776-11 ####[facility] ([id number])[address], [address], [place] [address] Eosinophils (Bld) [#/Vol] 0.4 10*3/uL Normal 0.0-0.4 [facility] Comment on above: Performed By: #### C BCA, BMP, , 2776-11 ####[facility] ([id number])[address], [address], [place] [address] Eosinophils/100 WBC (Bld) 3.3 % Normal [facility] Comment on above: Performed By: #### C BCA, BMP, , 2776-11 ####[facility] ([id number])[address] [address], [place] [address] Erythrocyte distribution width (RBC) [Ratio] 18.4 % High 11.5-15.0 [facility] Comment on above: Performed By: #### C KERRY, [facility], , 2776-11 ####[facility] ([id number])[address] [address], [place] [address] Hematocrit (Bld) [Volume fraction] 29.0 % Low 39-49 [facility] Comment on above: Performed By: #### C KERRY, [facility], , 2776-11 ####[facility] ([id number])[address] [address], [place] [address] Hemoglobin (Bld) [Mass/Vol] 9.7 g/dL Low 13.0-17.0 [facility] Comment on above: Performed By: #### C KERRY, [facility], , 2776-11 ####[facility] ([id number])[address] [address], [place] [address] Lymphocytes (Bld) [#/Vol] 0.7 10*3/uL Low 1.0-3.5 [facility] Comment on above: Performed By: #### C KERRY, BMP, , 2776-11 ####[facility] ([id number])[address] [address], [place] [address] Lymphocytes/100 WBC (Bld) 5.3 % Normal [facility] Comment on above: Performed By: #### C BCA, BMP, , 2776-11 ####[facility] ([id number])[address] [address], [place] [address] MCH (RBC) [Entitic mass] 30.7 pg Normal 27-34 [facility] Comment on above: Performed By: #### C KERRY, BMP, , 2776-11 ####[facility] ([id number])[address], [address], [place] [address] MCHC (RBC) [Mass/Vol] 33.4 g/dL Normal 32-36 [facility] Comment on above: Performed By: #### C KERRY, BMP, , 2776-11 ####[facility] ([id number])[address], [address], [place] [address] MCV (RBC) [Entitic vol] 92 fL Normal 80-100 [facility] Comment on above: Performed By: #### Belle PAYNE, BMP, , 2776-11 ####[facility] ([id number])[address], [address], [place] [address] Monocytes (Bld) [#/Vol] 1.3 10*3/uL High 0-0.9 [facility] Comment on above: Performed By: #### C KERRY, BMP, , 2776-11 ####[facility] ([id number])[address], [address], [place] [address] Monocytes/100 WBC (Bld) 10.7 % Normal [facility] Comment on above: Performed By: #### Belle PAYNE, BMP, , 2776-11 ####[facility] ([id number])[address], [address] [address] Neutrophils/100 WBC (Bld) 80.2 % Normal [facility] Comment on above: Performed By: #### C KERRY, BMP, , 2776-11 ####[facility] ([id number])[address], [address], [place] [address] Platelet mean volume (Bld) [Entitic vol] 8.6 fL Normal 7-12 [facility] Comment on above: Performed By: #### C KERRY, BMP, , 2776-11 ####[facility] ([id number])[address], [address] [place] [address] Platelets (Bld) [#/Vol] 203 10*3/uL Normal 150-450 [facility] Comment on above: Performed By: #### C KERRY, BMP, , 2776-11 ####[facility] ([id number])[address], [address], [place] [address] RBC COUNT 3.15 X10E12/L Low 4.10-5.70 [facility] Comment on above: Performed By: #### C KERRY, BMP, , 2776-11 ####[facility] ([id number])[address], [address] [place] [address] WBC (Bld) [#/Vol] 12.6 10*3/uL High 4.0-11.0 [facility] Comment on above: Performed By: #### C KERRY, ADRIANA, , 2776-11 ####[facility] ([id number])[address], [address] [place] [address] MAGNESIUMon 09-06-2024 Magnesium [Mass/Vol] 2.2 mg/dL Normal 1.8-2.6 [facility] Comment on above: Performed By: #### C KERRY, BMP, , 2776-11 ####[facility] ([id number])[address], [address], [place] [address] PHOSPHORUSon 09-06-2024 Phosphate [Mass/Vol] 5.5 mg/dL High 2.4-4.9 [facility] Comment on above: Performed By: #### C KERRY, BMP, , 2776-11 ####[facility] ([id number])[address], [address], [place] [address] BASIC METABOLIC PANLon 09-05 Anion gap [Moles/Vol] 12 mmol/L Normal 5-15 [facility] Comment on above: Performed By: #### C KERRY, BMP, , 2776-11 ####[facility] ([id number])[address], [address], [place] [address] Calcium [Mass/Vol] 8.0 mg/dL Low 8.5-10.5 [facility] Comment on above: Performed By: #### C KERRY, BMP, , 2776-11 ####[facility] ([id number])[address], [address], [place] [address] Chloride [Moles/Vol] 113 mmol/L High 98-109 [facility] Comment on above: Performed By: #### C KERRY, BMP, , 2776-11 ####[facility] ([id number])[address] [address] [place] [address] CO2 [Moles/Vol] 18 mmol/L Low 22-32 [facility] Comment on above: Performed By: #### C BCA, BMP, , 2776-11 ####[facility] ([id number])[address] [address] [place] [address] Creatinine [Mass/Vol] 3.02 mg/dL High 0.60-1.30 [facility] Comment on above: Result Comment: METH OD TRACEABLE TO IDMS STANDARD Performed By: #### C KERRY, BMP, , 2776-11 ####[facility] ([id number])[address], [address] [place] [address] GFR/1.73 sq M.predicted among non-blacks MDRD (S/P/Bld) [Vol rate/Area] 22 mL/min/{1.73_m2} Low >59 [facility] Comment on above: Result Comment: Repo rted eGFR is based on theD-EPI 2020 equation that doesnot use a race coefficient. Performed By: #### C ADRIANA PAYNE, , 2776-11 ####[facility] ([id number])[address], [address], [place] [address] Glucose [Mass/Vol] 108 mg/dL High 65-99 [facility] Comment on above: Performed By: #### C KERRY [facility], , 2776-11 ####[facility] ([id number])[address] [address] Potassium [Moles/Vol] 4.0 mmol/L Normal 3.5-5.0 [facility] Comment on above: Performed By: #### C ADRIANA PAYNE, , 2776-11 ####[facility] ([id number])[address] [address], [place] [address] Sodium [Moles/Vol] 143 mmol/L Normal 134-146 [facility] Comment on above: Performed By: #### C KERRY [facility], , 2776-11 ####[facility] ([id number])[address] [address] [place] [address] Urea nitrogen [Mass/Vol] 63 mg/dL High 5-27 [facility] Comment on above: Performed By: #### C ADRIANA PAYNE, , 2776-11 ####[facility] ([id number])[address] [address] CBC AND AUTO DIFFon 09-05-20 24 ABSOLUTE BASOPHIL 0.0 X10E9/L Normal 0.0-0.2 [facility] Comment on above: Performed By: #### C ADRIANA PAYNE, , 2776-11 ####[facility] ([id number])[address] [address], [place] [address] ABSOLUTE NEUTROPHIL 6.3 X10E9/L Normal 1.5-6.6 [facility] Comment on above: Performed By: #### C KERRY, BMP, , 2776-11 ####[facility] ([id number])[address], [address], [place] [address] Basophils/100 WBC (Bld) 0.2 % Normal [facility] Comment on above: Performed By: #### C KERRY, BMP, , 2776-11 ####[facility] ([id number])[address], [address], [place] [address] Eosinophils (Bld) [#/Vol] 0.2 10*3/uL Normal 0.0-0.4 [facility] Comment on above: Performed By: #### C KERRY, BMP, , 2776-11 ####[facility] ([id number])[address], [address], [place] [address] Eosinophils/100 WBC (Bld) 2.7 % Normal [facility] Comment on above: Performed By: #### Belle PAYNE, BMP, , 2776-11 ####[facility] ([id number])[address], [address], [place] [address] Erythrocyte distribution width (RBC) [Ratio] 16.7 % High 11.5-15.0 [facility] Comment on above: Performed By: #### C KERRY, BMP, , 2776-11 ####[facility] ([id number])[address], [place] [address] Hematocrit (Bld) [Volume fraction] 24.4 % Low 39-49 [facility] Comment on above: Performed By: #### Belle PAYNE, BMP, , 2776-11 ####[facility] ([id number])[address], [address], [place] [address] Hemoglobin (Bld) [Mass/Vol] 8.3 g/dL Low 13.0-17.0 [facility] Comment on above: Performed By: #### C KERRY, BMP, , 2776-11 ####[facility] ([id number])[address], [address] [place] [address] Lymphocytes (Bld) [#/Vol] 0.5 10*3/uL Low 1.0-3.5 [facility] Comment on above: Performed By: #### C KERRY, BMP, , 2776-11 ####[facility] ([id number])[address], [place] [address] Lymphocytes/100 WBC (Bld) 5.9 % Normal [facility] Comment on above: Performed By: #### Belle PAYNE, BMP, , 2776-11 ####[facility] ([id number])[address], [address] [place] [address] MCH (RBC) [Entitic mass] 30.7 pg Normal 27-34 [facility] Comment on above: Performed By: #### Belle PAYNE, BMP, , 2776-11 ####[facility] ([id number])[address], [address] [place] [address] MCHC (RBC) [Mass/Vol] 33.9 g/dL Normal 32-36 [facility] Comment on above: Performed By: #### C KERRY, BMP, , 2776-11 ####[facility] ([id number])[address], [address] [place] [address], [place] [address] MCV (RBC) [Entitic vol] 91 fL Normal 80-100 [facility] Comment on above: Performed By: #### Belle PAYNE, BMP, , 2776-11 ####[facility] ([id number])[address], [place] [address] Monocytes (Bld) [#/Vol] 0.9 10*3/uL Normal 0-0.9 [facility] Comment on above: Performed By: #### C BCA, BMP, , 2776-11 ####[facility] ([id number])[address], [address], [place] [address] Monocytes/100 WBC (Bld) 11.5 % Normal [facility] Comment on above: Performed By: #### C BCA, BMP, , 2776-11 ####[facility] ([id number])[address], [address], [place] [address] Neutrophils/100 WBC (Bld) 79.7 % Normal [facility] Comment on above: Performed By: #### C BCA, BMP, , 2776-11 ####[facility] ([id number])[address], [place] [address] Platelet mean volume (Bld) [Entitic vol] 8.8 fL Normal 7-12 [facility] Comment on above: Performed By: #### Belle BCA, BMP, , 2776-11 ####[facility] ([id number])[address], [place] [address] Platelets (Bld) [#/Vol] 136 10*3/uL Low 150-450 [facility] Comment on above: Performed By: #### Belle BCA, BMP, , 2776-11 ####[facility] ([id number])[address], [place] [address] RBC COUNT 2.69 X10E12/L Low 4.10-5.70 [facility] Comment on above: Performed By: #### Belle BCA, BMP, , 2776-11 ####[facility] ([id number])[address] [address], [place] [address] WBC (Bld) [#/Vol] 7.9 10*3/uL Normal 4.0-11.0 [facility] Comment on above: Performed By: #### C KERRY, ADRIANA, , 2776-11 ####[facility] ([id number])[address], [place] [address] HGB AND HCTon 09-05-2024 Hematocrit (Bld) [Volume fraction] 26.0 % Low 39-49 [facility] Comment on above: Performed By: #### H H ####[facility] ([id number])[address] [address], [place] [address] Hemoglobin (Bld) [Mass/Vol] 8.8 g/dL Low 13.0-17.0 [facility] Comment on above: Performed By: #### H H ####[facility] ([id number])[address] [address], [place] [address] MAGNESIUMon 09-05-2024 Magnesium [Mass/Vol] 1.9 mg/dL Normal 1.8-2.6 [facility] Comment on above: Performed By: #### C KERRY, ADRIANA, , 2776-11 ####[facility] ([id number])[address] [address] [address] Magnesium Ionized ISE (Bld) [Moles/Vol]on 09-05-2024 Magnesium [Moles/Vol] 0.76 mmol/L High 0.45-0.74 [facility] Comment on above: Result Comment: NEW REFERENCE RANGE Performed By: #### 7 3572-0 ####[facility] ([id number])[address] [address], [place] [address] PHOSPHORUSon 09-05-2024 Phosphate [Mass/Vol] 4.9 mg/dL Normal 2.4-4.9 [facility] Comment on above: Performed By: #### C BCA, BMP, , 2776-11 ####[facility] ([id number])[address], [place] [address] BASIC METABOLIC PANLon 09-04 Anion gap [Moles/Vol] 10 mmol/L Normal 5-15 [facility] Comment on above: Performed By: #### C BCA, BMP, , 2776-11, PINR ####[facility] ([id number])[address], [address], [place] [address] Calcium [Mass/Vol] 8.4 mg/dL Low 8.5-10.5 [facility] [place] Comment on above: Performed By: #### C BCA, BMP, , 2776-11, PINR ####[facility] ([id number])[address], [address], [place] [address] Chloride [Moles/Vol] 112 mmol/L High 98-109 [facility] Comment on above: Performed By: #### C BCA, BMP, , 2776-11, PINR ####[facility] ([id number])[address], [address], [place] [address] CO2 [Moles/Vol] 20 mmol/L Low 22-32 [facility] Comment on above: Performed By: #### C BCA, BMP, , 2776-11, PINR ####[facility] ([id number])[address], [address], [place] [address] Creatinine [Mass/Vol] 2.34 mg/dL High 0.60-1.30 [facility] Comment on above: Result Comment: METH OD TRACEABLE TO IDMS STANDARD Performed By: #### C BCA, BMP, , 2776-11, PINR ####[facility] ([id number])[address] [address] GFR/1.73 sq M.predicted among non-blacks MDRD (S/P/Bld) [Vol rate/Area] 30 mL/min/{1.73_m2} Low >59 [facility] Comment on above: Result Comment: Repo rted eGFR is based on theCKD-EPI 2020 equation that doesnot use a race coefficient. Performed By: #### C BCA, BMP, , 2776-11, PINR ####[facility] ([id number])[address] [address] Glucose [Mass/Vol] 106 mg/dL High 65-99 [facility] [place] Comment on above: Performed By: #### C BCA, BMP, , 2776-11, PINR ####[facility] ([id number])[address] [address] [place] [address] Potassium [Moles/Vol] 3.9 mmol/L Normal 3.5-5.0 [facility] Comment on above: Performed By: #### C BCA, BMP, , 2776-11, PINR ####[facility] ([id number])[address] [address] Sodium [Moles/Vol] 142 mmol/L Normal 134-146 [facility] [place] Comment on above: Performed By: #### C BCA, BMP, , 2776-11, PINR ####[facility] ([id number])[address] [address] Urea nitrogen [Mass/Vol] 63 mg/dL High 5-27 [facility] Comment on above: Performed By: #### C BCA, BMP, , 2776-11, PINR ####[facility] ([id number])[address] [address], [place] [address] CBC AND AUTO DIFFon 09-04-20 24 ABSOLUTE BASOPHIL 0.0 X10E9/L Normal 0.0-0.2 [facility] [place] Comment on above: Performed By: #### C KERRY, BMP, , 2776-11, PINR ####[facility] ([id number])[address], [address], [place] [address] ABSOLUTE NEUTROPHIL 5.6 X10E9/L Normal 1.5-6.6 [facility] Comment on above: Performed By: #### C KERRY, BMP, , 2776-11, PINR ####[facility] ([id number])[address], [address] [place] [address] Basophils/100 WBC (Bld) 0.2 % Normal [facility] Comment on above: Performed By: #### C KERRY, BMP, , 2776-11, PINR ####[facility] ([id number])[address] [address] [place] [address] Eosinophils (Bld) [#/Vol] 0.2 10*3/uL Normal 0.0-0.4 [facility] Comment on above: Performed By: #### C KERRY, BMP, , 2776-11, PINR ####[facility] ([id number])[address], [address] [place] [address]149 Eosinophils/100 WBC (Bld) 2.2 % Normal [facility] Comment on above: Performed By: #### C BCA, BMP, , 2776-11, PINR ####[facility] ([id number])[address], [address] [place] [address] Erythrocyte distribution width (RBC) [Ratio] 16.6 % High 11.5-15.0 [facility] Comment on above: Performed By: #### C BCA, BMP, , 2776-11, PINR ####[facility] ([id number])[address] [address] [place] [address] Hematocrit (Bld) [Volume fraction] 22.1 % Low 39-49 [facility] Comment on above: Performed By: #### C KERRY, [facility], , 2776-11, PINR ####[facility] ([id number])[address], [address] [place] [address]36 Hemoglobin (Bld) [Mass/Vol] 7.4 g/dL Low 13.0-17.0 [facility] Comment on above: Performed By: #### C KERRY, [facility], , 2776-11, PINR ####[facility] ([id number])[address] [address] Lymphocytes (Bld) [#/Vol] 0.5 10*3/uL Low 1.0-3.5 [facility] Comment on above: Performed By: #### C KERRY, [facility], , 2776-11, PINR ####[facility] ([id number])[address] [address] Lymphocytes/100 WBC (Bld) 7.2 % Normal [facility] Comment on above: Performed By: #### C KERRY, BMP, , 2776-11, PINR ####[facility] ([id number])[address] [address] [place] [address] 25399 MCH (RBC) [Entitic mass] 29.9 pg Normal 27-34 [facility] Comment on above: Performed By: #### C BCA, BMP, , 2776-11, PINR ####[facility] ([id number])[address] [address] MCHC (RBC) [Mass/Vol] 33.5 g/dL Normal 32-36 [facility] Comment on above: Performed By: #### C BCA, BMP, , 2776-11, PINR ####[facility] ([id number])[address], [address], [place] [address] MCV (RBC) [Entitic vol] 89 fL Normal 80-100 [facility] Comment on above: Performed By: #### C BCA, BMP, , 2776-11, PINR ####[facility] ([id number])[address], [address], [place] [address] Monocytes (Bld) [#/Vol] 0.8 10*3/uL Normal 0-0.9 [facility] Comment on above: Performed By: #### C BCA, BMP, , 2776-11, PINR ####[facility] ([id number])[address], [address], [place] [address] Monocytes/100 WBC (Bld) 11.0 % Normal [facility] Comment on above: Performed By: #### C BCA, BMP, , 2776-11, PINR ####[facility] ([id number])[address] [address] [place] [address]233 Neutrophils/100 WBC (Bld) 79.4 % Normal [facility] Comment on above: Performed By: #### C BCA, BMP, , 2776-11, PINR ####[facility] ([id number])[address], [address], [place] [address] Platelet mean volume (Bld) [Entitic vol] 8.9 fL Normal 7-12 [facility] Comment on above: Performed By: #### C BCA, BMP, , 2776-11, PINR ####[facility] ([id number])[address], [address] [place] [address]67 Platelets (Bld) [#/Vol] 103 10*3/uL Low 150-450 [facility] Comment on above: Performed By: #### C KERRY, BMP, , 2776-11, PINR ####[facility] ([id number])[address], [address], [place] [address] RBC COUNT 2.48 X10E12/L Low 4.10-5.70 [facility] Comment on above: Performed By: #### C KERRY, BMP, , 2776-11, PINR ####[facility] ([id number])[address] [address] [place] [address] WBC (Bld) [#/Vol] 7.1 10*3/uL Normal 4.0-11.0 [facility] Comment on above: Performed By: #### C KERRY, BMP, , 2776-11, PINR ####[facility] ([id number])[address] [address] [place] [address] HGB AND HCTon 09-04-2024 Hematocrit (Bld) [Volume fraction] 25.0 % Low 39-49 [facility] Comment on above: Performed By: #### H H ####[facility] ([id number])[address] [address] [place] [address] Hemoglobin (Bld) [Mass/Vol] 8.3 g/dL Low 13.0-17.0 [facility] Comment on above: Performed By: #### H H ####[facility] ([id number])[address] [address] [place] [address], [place] [address] Hematocrit (Bld) [Volume fraction] 22.8 % Low 39-49 [facility] Comment on above: Performed By: #### H H ####[facility] ([id number])[address], [place] [address] Hemoglobin (Bld) [Mass/Vol] 7.6 g/dL Low 13.0-17.0 [facility] Comment on above: Performed By: #### H H ####[facility] ([id number])[address], [address], [place] [address] Hematocrit (Bld) [Volume fraction] 22.5 % Low 39-49 [facility] Comment on above: Performed By: #### H H ####[facility] ([id number])[address], [address], [place] [address] Hemoglobin (Bld) [Mass/Vol] 7.4 g/dL Low 13.0-17.0 [facility] Comment on above: Performed By: #### H H ####[facility] ([id number])[address], [address], [place] [address] MAGNESIUMon 09-04-2024 Magnesium [Mass/Vol] 2.2 mg/dL Normal 1.8-2.6 [facility] Comment on above: Performed By: #### C BCA, BMP, , 2776-11, PINR ####[facility] ([id number])[address], [address], [place] [address] PHOSPHORUSon 09-04-2024 Phosphate [Mass/Vol] 4.0 mg/dL Normal 2.4-4.9 [facility] Comment on above: Performed By: #### C BCA, BMP, , 2776-11, PINR ####[facility] ([id number])[address], [address], [place] [address] PROTIME AND INRon 09-04-2024 INR Coag (PPP) [Relative time] 1.2 {INR} High 0.8-1.1 [facility] Comment on above: Performed By: #### C BCA, BMP, , 2776-11, PINR ####[facility] ([id number])[address], [address], [place] [address] PT Coag (PPP) [Time] 14.4 s High 9.8-13.2 [facility] Comment on above: Performed By: #### C BCA, BMP, , 2776-11, PINR ####[facility] ([id number])[address], [address], [place] [address] BASIC METABOLIC PANLon 09-03 Anion gap [Moles/Vol] 10 mmol/L Normal 5-15 [facility] Comment on above: Performed By: #### P INR, CBCA, 4679-7, BMP, , 2776-11 ####[facility] ([id number])[address], [address], [place] [address] Calcium [Mass/Vol] 9.4 mg/dL Normal 8.5-10.5 [facility] Comment on above: Performed By: #### P INR, CBCA, 4679-7, BMP, , 2776-11 ####[facility] ([id number])[address], [address], [place] [address] Chloride [Moles/Vol] 106 mmol/L Normal 98-109 [facility] Comment on above: Performed By: #### P INR, CBCA, 4679-7, BMP, , 2776-11 ####[facility] ([id number])[address], [address], [place] [address] CO2 [Moles/Vol] 21 mmol/L Low 22-32 [facility] Comment on above: Performed By: #### P INR, CBCA, 4679-7, BMP, , 2776-11 ####[facility] ([id number])[address], [address], [place] [address] Creatinine [Mass/Vol] 2.10 mg/dL High 0.60-1.30 [facility] Comment on above: Result Comment: METH OD TRACEABLE TO IDMS STANDARD Performed By: #### P INR, CBCA, 4679-7, BMP, 77805-6, 2776-11 ####[facility] ([id number])[address], [address] [place] [address] GFR/1.73 sq M.predicted among non-blacks MDRD (S/P/Bld) [Vol rate/Area] 34 mL/min/{1.73_m2} Low >59 [facility] Comment on above: Result Comment: Repo rted eGFR is based on theCKD-EPI 2020 equation that doesnot use a race coefficient. Performed By: #### P INR, CBCA, 4679-7, BMP, 44458-5, 2776-11 ####[facility] ([id number])[address], [address] [place] [address] Glucose [Mass/Vol] 92 mg/dL Normal 65-99 [facility] Comment on above: Performed By: #### P INR, CBCA, 4679-7, BMP, 02009-7, 2776-11 ####[facility] ([id number])[address], [address] [place] [address] Potassium [Moles/Vol] 5.6 mmol/L High 3.5-5.0 [facility] Comment on above: Performed By: #### P INR, CBCA, 4679-7, BMP, 49445-5, 2776- ####[facility] ([id number])[address], [address] [place] [address] Sodium [Moles/Vol] 137 mmol/L Normal 134-146 [facility] Comment on above: Performed By: #### P INR, CBCA, 4679-7, BMP, 83836-4, 2776- ####[facility] ([id number])[address] [address] [place] [address] Urea nitrogen [Mass/Vol] 57 mg/dL High 5-27 [facility] Comment on above: Performed By: #### P INR, CBCA, 4679-7, BMP, 45340-7, 2776-11 ####[facility] ([id number])[address] [address] [place] [address] CBC AND AUTO DIFFon 09-03-20 24 Band form neutrophils/100 WBC (Bld) 1.9 % Normal [facility] Comment on above: Performed By: #### P INR, CBCA, 4679-7, BMP, 05994-4, 2776-11 ####[facility] ([id number])[address] [address] Erythrocyte distribution width (RBC) [Ratio] 16.2 % High 11.5-15.0 [facility] Comment on above: Performed By: #### P INR, CBCA, 4679-7, BMP, , 2776-11 ####[facility] ([id number])[address] [address] Hematocrit (Bld) [Volume fraction] 27.7 % Low 39-49 [facility] Comment on above: Performed By: #### P INR, CBCA, 4679-7, BMP, , 2776-11 ####[facility] ([id number])[address] [address] [place] [address] Hemoglobin (Bld) [Mass/Vol] 9.5 g/dL Low 13.0-17.0 [facility] Comment on above: Performed By: #### P INR, CBCA, 4679-7, BMP, , 2776-11 ####[facility] ([id number])[address] [address] Lymphocytes (Bld) [#/Vol] 1.0 10*3/uL Normal 1.0-3.5 [facility] Comment on above: Performed By: #### P INR, CBCA, 4679-7, BMP, , 2776-11 ####[facility] ([id number])[address], [address] [place] [address] Lymphocytes/100 WBC (Bld) 5.7 % Normal [facility] Comment on above: Performed By: #### P INR, CBCA, 4679-7, BMP, 01964-3, 2776-11 ####[facility] ([id number])[address], [address] [place] [address] MCH (RBC) [Entitic mass] 29.7 pg Normal 27-34 [facility] Comment on above: Performed By: #### P INR, CBCA, 4679-7, BMP, , 2776-11 ####[facility] ([id number])[address], [address] [place] [address] MCHC (RBC) [Mass/Vol] 34.2 g/dL Normal 32-36 [facility] Comment on above: Performed By: #### P INR, CBCA, 4679-7, BMP, 59546-8, 2776-11 ####[facility] ([id number])[address], [address] [place] [address] MCV (RBC) [Entitic vol] 87 fL Normal 80-100 [facility] Comment on above: Performed By: #### P INR, CBCA, 4679-7, BMP, 64703-8, 2776-11 ####[facility] ([id number])[address] [address] [place] [address] Monocytes (Bld) [#/Vol] 1.9 10*3/uL High 0-0.9 [facility] Comment on above: Performed By: #### P INR, CBCA, 4679-7, BMP, 52622-3, 2776- ####[facility] ([id number])[address], [address], [place] [address] Monocytes/100 WBC (Bld) 11.4 % Normal [facility] Comment on above: Performed By: #### P INR, CBCA, 4679-7, BMP, 14466-6, 2776- ####[facility] ([id number])[address], [address] [place] [address]70 MYELOCYTE 1.9 % Normal [facility] Comment on above: Performed By: #### P INR, CBCA, 4679-7, BMP, 14993-9, 2776-11 ####[facility] ([id number])[address] [address], [place] [address] Neutrophils (Bld) [#/Vol] 13.7 10*3/uL High 1.5-6.6 [facility] Comment on above: Performed By: #### P INR, CBCA, 4679-7, BMP, 12405-2, 2776-11 ####[facility] ([id number])[address] [address] [place] [address] 30127 NUCLEATED RBC 3.8 /100 WBC High 0.0-1.0 [facility] Comment on above: Performed By: #### P INR, CBCA, 4679-7, BMP, 64193-1, 2776-11 ####[facility] ([id number])[address] [address], [place] [address] Platelet mean volume (Bld) [Entitic vol] 9.1 fL Normal 7-12 [facility] Comment on above: Performed By: #### P INR, CBCA, 4679-7, BMP, 78341-2, 2776- ####[facility] ([id number])[address], [address] [place] [address]676 Platelets (Bld) [#/Vol] 128 10*3/uL Low 150-450 [facility] Comment on above: Performed By: #### P INR, CBCA, 4679-7, BMP, 77870-3, 2776- ####[facility] ([id number])[address], [address] [place] [address] POLYCHROMASIA 1+ Abnormal NONE [facility] Comment on above: Performed By: #### P INR, CBCA, 4679-7, BMP, 34718-5, 2776- ####[facility] ([id number])[address], [address] [place] [address] RBC COUNT 3.19 X10E12/L Low 4.10-5.70 [facility] Comment on above: Performed By: #### P INR, CBCA, 4679-7, BMP, 05873-5, 2776-11 ####[facility] ([id number])[address], [address] [place] [address] SEG NEUTROPHIL 79.1 % Normal [facility] Comment on above: Performed By: #### P INR, CBCA, 4679-7, BMP, 52936-2, 2776-11 ####[facility] ([id number])[address], [address] [place] [address]88 WBC (Bld) [#/Vol] 16.9 10*3/uL High 4.0-11.0 [facility] Comment on above: Performed By: #### P INR, CBCA, 4679-7, BMP, 14016-8, 2776- ####[facility] ([id number])[address], [address] [place] [address] HGB AND HCTon 09-03-2024 Hematocrit (Bld) [Volume fraction] 24.4 % Low 39-49 [facility] Comment on above: Performed By: #### H H ####[facility] ([id number])[address], [place] [address] Hemoglobin (Bld) [Mass/Vol] 8.2 g/dL Low 13.0-17.0 [facility] Comment on above: Performed By: #### H H ####[facility] ([id number])[address], [address], [place] [address] Hematocrit (Bld) [Volume fraction] 23.8 % Low 39-49 [facility] Comment on above: Performed By: #### H H ####[facility] ([id number])[address], [address], [place] [address] Hemoglobin (Bld) [Mass/Vol] 8.2 g/dL Low 13.0-17.0 [facility] Comment on above: Performed By: #### H H ####[facility] ([id number])[address], [place] [address] Hematocrit (Bld) [Volume fraction] 23.7 % Low 39-49 [facility] Comment on above: Performed By: #### H H ####[facility] ([id number])[address], [place] [address] Hemoglobin (Bld) [Mass/Vol] 8.2 g/dL Low 13.0-17.0 [facility] Comment on above: Performed By: #### H H ####[facility] ([id number])[address], [address], [place] [address] MAGNESIUMon 09-03-2024 Magnesium [Mass/Vol] 2.4 mg/dL Normal 1.8-2.6 [facility] Comment on above: Performed By: #### P INR, CBCA, 4679-7, BMP, 06493-6, 2777-1 ####[facility] ([id number])[address], [address], [place] [address] PHOSPHORUSon 09-03-2024 Phosphate [Mass/Vol] 2.5 mg/dL Normal 2.4-4.9 [facility] Comment on above: Performed By: #### P INR, CBCA, 4679-7, BMP, , 2776-11 ####[facility] ([id number])[address], [address] [place] [address] PROTIME AND INRon 09-03-2024 INR Coag (PPP) [Relative time] 1.3 {INR} High 0.8-1.1 [facility] Comment on above: Performed By: #### P INR, CBCA, 4679-7, BMP, , 2776-11 ####[facility] ([id number])[address] [address] [place] [address] PT Coag (PPP) [Time] 15.0 s High 9.8-13.2 [facility] Comment on above: Performed By: #### P INR, CBCA, 4679-7, BMP, , 2776-11 ####[facility] ([id number])[address] [address] [place] [address] Reticulocytes/100 RBC (Bld)o n 09-03-2024 RETICULOCYTE COUNT 1.9 % Normal 0.4-2.2 [facility] Comment on above: Performed By: #### P INR, CBCA, 4679-7, BMP, , 2776-11 ####[facility] ([id number])[address] [address] [place] [address] BASIC METABOLIC PANLon 09-02 Anion gap [Moles/Vol] 9 mmol/L Normal 5-15 [facility] Comment on above: Performed By: #### C BCA, PINR, BMP, , 2776-11, FEPR, 2276-4 ####[facility] ([id number])[address] [address] [place] [address]67 Calcium [Mass/Vol] 8.9 mg/dL Normal 8.5-10.5 [facility] Comment on above: Performed By: #### C BCA, PINR, BMP, 24943-9, 7-1, FEPR, 2276-4 ####[facility] ([id number])[address], [address] [place] [address] Chloride [Moles/Vol] 104 mmol/L Normal 98-109 [facility] Comment on above: Performed By: #### C BCA, PINR, BMP, 36985-0, 2776-, FEPR, 2276-4 ####[facility] ([id number])[address] [address] [place] [address] CO2 [Moles/Vol] 24 mmol/L Normal 22-32 [facility] Comment on above: Performed By: #### C BCA, PINR, BMP, 04823-5, 7-1, FEPR, 2276-4 ####[facility] ([id number])[address] [address] [place] [address] Creatinine [Mass/Vol] 1.61 mg/dL High 0.60-1.30 [facility] Comment on above: Result Comment: METH OD TRACEABLE TO IDMS STANDARD Performed By: #### C BCA, PINR, BMP, 53412-6, 2776-1, FEPR, 2276-4 ####[facility] ([id number])[address] [address] GFR/1.73 sq M.predicted among non-blacks MDRD (S/P/Bld) [Vol rate/Area] 47 mL/min/{1.73_m2} Low >59 [facility] Comment on above: Result Comment: Repo rted eGFR is based on theCKD-EPI 2020 equation that doesnot use a race coefficient. Performed By: #### C BCA, PINR, BMP, 04772-4, 2777-1, FEPR, 2276-4 ####[facility] ([id number])[address] [address] [place] [address] Glucose [Mass/Vol] 92 mg/dL Normal 65-99 [facility] Comment on above: Performed By: #### C BCA, PINR, BMP, 98094-2, 2777-1, FEPR, 2276-4 ####[facility] ([id number])[address] [address] Potassium [Moles/Vol] 3.9 mmol/L Normal 3.5-5.0 [facility] Comment on above: Performed By: #### C BCA, PINR, BMP, 61304-3, 7-1, FEPR, 2276-4 ####[facility] ([id number])[address] [address] [place] [address] Sodium [Moles/Vol] 137 mmol/L Normal 134-146 [facility] Comment on above: Performed By: #### C BCA, PINR, BMP, 98554-4, 7-1, FEPR, 2276-4 ####[facility] ([id number])[address] [address] Urea nitrogen [Mass/Vol] 48 mg/dL High 5-27 [facility] Comment on above: Performed By: #### C BCA, PINR, BMP, 86637-5, 2777-1, FEPR, 2276-4 ####[facility] ([id number])[address] [address] CBC AND AUTO DIFFon 09-02-20 Erythrocyte distribution width (RBC) [Ratio] 16.3 % High 11.5-15.0 [facility] Comment on above: Performed By: #### C BCA, PINR, BMP, 19496-1, 2776-, FEPR, 2276-4 ####[facility] ([id number])[address], [address] [place] [address] Hematocrit (Bld) [Volume fraction] 17.9 % Low 39-49 [facility] Comment on above: Performed By: #### C BCA, PINR, BMP, 15731-0, 2776-, FEPR, 2276-4 ####[facility] ([id number])[address], [address] [place] [address] Hemoglobin (Bld) [Mass/Vol] 6.2 g/dL Critically low 13.0-17.0 [facility] Comment on above: Performed By: #### C BCA, PINR, BMP, 15385-1, 2776-, FEPR, 2276-4 ####[facility] ([id number])[address] [facility] [place] [address] 53688 Lymphocytes (Bld) [#/Vol] 1.0 10*3/uL Normal 1.0-3.5 [facility] Comment on above: Performed By: #### C BCA, PINR, BMP, 45687-6, 2776-, FEPR, 2276-4 ####[facility] ([id number])[address] [address] Lymphocytes/100 WBC (Bld) 8.6 % Normal [facility] Comment on above: Performed By: #### C BCA, PINR, BMP, 11667-4, 2776-, FEPR, 2276-4 ####[facility] ([id number])[address] [address] [place] [address] 28131 MCH (RBC) [Entitic mass] 29.5 pg Normal 27-34 [facility] Comment on above: Performed By: #### C BCA, PINR, BMP, 25268-9, 2776-, FEPR, 2276-4 ####[facility] ([id number])[address], [address] [place] [address] 48853 MCHC (RBC) [Mass/Vol] 34.9 g/dL Normal 32-36 [facility] Comment on above: Performed By: #### C BCA, PINR, BMP, 37164-9, 7-1, FEPR, 6-4 ####[facility] ([id number])[address], [address] [place] [address] 43086 MCV (RBC) [Entitic vol] 84 fL Normal 80-100 [facility] Comment on above: Performed By: #### C BCA, PINR, BMP, 66330-1, 2776-, FEPR, 2275- ####[facility] ([id number])[address], [address] [place] [address] 65742 Monocytes (Bld) [#/Vol] 0.7 10*3/uL Normal 0-0.9 [facility] Comment on above: Performed By: #### C BCA, PINR, BMP, 07034-2, 7-1, FEPR, 2275- ####[facility] ([id number])[address], [address] [place] [address] 17328 Monocytes/100 WBC (Bld) 5.7 % Normal [facility] Comment on above: Performed By: #### C BCA, PINR, BMP, 83785-6, 2776-1, FEPR, 2275-4 ####[facility] ([id number])[address], [address] [place] [address] 49868 Neutrophils (Bld) [#/Vol] 9.9 10*3/uL High 1.5-6.6 [facility] Comment on above: Performed By: #### C BCA, PINR, BMP, 93115-7, 2777-1, FEPR, 6-4 ####[facility] ([id number])[address], [address] [place] [address] 54770 Platelet mean volume (Bld) [Entitic vol] 8.9 fL Normal 7-12 [facility] Comment on above: Performed By: #### C BCA, PINR, BMP, 12718-6, 2776-, FEPR, 2276-4 ####[facility] ([id number])[address] [address] [place] [address] 24292 Platelets (Bld) [#/Vol] 58 10*3/uL Low 150-450 [facility] Comment on above: Performed By: #### C BCA, PINR, BMP, 80631-6, 2776-, FEPR, 2276-4 ####[facility] ([id number])[address] [address] [place] [address] 50258 POLYCHROMASIA 1+ Abnormal NONE [facility] Comment on above: Performed By: #### C BCA, PINR, BMP, , 2776-, FEPR, 6-4 ####[facility] ([id number])[address] [address] [place] [address] 69990 RBC COUNT 2.12 X10E12/L Low 4.10-5.70 [facility] Comment on above: Performed By: #### C BCA, PINR, BMP, 63029-1, 2776-, FEPR, 2276-4 ####[facility] ([id number])[address] [address] [place] [address] 43560 SEG NEUTROPHIL 85.7 % Normal [facility] Comment on above: Performed By: #### C BCA, PINR, BMP, 12642-8, 2776-, FEPR, 2276-4 ####[facility] ([id number])[address] [address] [place] [address] 32000 WBC (Bld) [#/Vol] 11.6 10*3/uL High 4.0-11.0 [facility] Comment on above: Performed By: #### C BCA, PINR, BMP, 27719-4, 2777-1, FEPR, 2276-4 ####[facility] ([id number])[address], [address], [place] [address] FERRITINon 09-02-2024 Ferritin [Mass/Vol] 833 ng/mL High 24-336 [facility] Comment on above: Performed By: #### C BCA, PINR, BMP, 76633-0, 2776-1, FEPR, 2276-4 ####[facility] ([id number])[address], [address], [place] [address] HGB AND HCTon 09-02-2024 Hematocrit (Bld) [Volume fraction] 27.3 % Low 39-49 [facility] Comment on above: Performed By: #### H H ####[facility] ([id number])[address], [address], [place] [address] Hemoglobin (Bld) [Mass/Vol] 9.4 g/dL Low 13.0-17.0 [facility] Comment on above: Performed By: #### H H ####[facility] ([id number])[address], [address], [place] [address] Hematocrit (Bld) [Volume fraction] 25.7 % Low 39-49 [facility] Comment on above: Performed By: #### H H ####[facility] ([id number])[address], [address], [place] [address] Hemoglobin (Bld) [Mass/Vol] 8.8 g/dL Low 13.0-17.0 [facility] Comment on above: Performed By: #### H H ####[facility] ([id number])[address], [address], [place] [address] Hematocrit (Bld) [Volume fraction] 25.0 % Low 39-49 [facility] Comment on above: Performed By: #### Gurwinder Purdy PINR ####[facility] ([id number])[address], [address] [place] [address] 92198 Hemoglobin (Bld) [Mass/Vol] 8.4 g/dL Low 13.0-17.0 [facility] Comment on above: Performed By: #### Gurwinder Purdy PINR ####[facility] ([id number])[address], [address], [place] [address] IRON PROFILEon 09-02-2024 Iron [Mass/Vol] 41 ug/dL Low 50-212 [facility] Comment on above: Performed By: #### C BCA, PINR, BMP, 46576-7, 2777-1, FEPR, 2276-4 ####[facility] ([id number])[address], [address], [place] [address] IRON BINDING 120 ug/dL Low 250-425 [facility] Comment on above: Performed By: #### C BCA, PINR, BMP, 60390-5, 2777-1, FEPR, 2276-4 ####[facility] ([id number])[address], [address] [place] [address]11 IRON SATURATION 34 % SATURATION Normal 20-50 [facility] Comment on above: Performed By: #### C BCA, PINR, BMP, 87798-6, 2777-1, FEPR, 2276-4 ####[facility] ([id number])[address], [address], [place] [address] MAGNESIUMon 09-02-2024 Magnesium [Mass/Vol] 1.9 mg/dL Normal 1.8-2.6 [facility] Comment on above: Performed By: #### C BCA, PINR, BMP, 78773-5, 2777-1, FEPR, 2276-4 ####[facility] ([id number])[address], [address], [place] [address] Magnesium Ionized ISE (Bld) [Moles/Vol]on 09-02-2024 Magnesium [Moles/Vol] 0.72 mmol/L Normal 0.45-0.74 [facility] Comment on above: Result Comment: NEW REFERENCE RANGE Performed By: #### 7 3572-0 ####[facility] ([id number])[address], [address], [place] [address] PHOSPHORUSon 09-02-2024 Phosphate [Mass/Vol] 2.5 mg/dL Normal 2.4-4.9 [facility] Comment on above: Performed By: #### C BCA, PINR, BMP, , 2776-11, FEPR, 2275-4 ####[facility] ([id number])[address] [address] [place] [address] PROTIME AND INRon 09-02-2024 INR Coag (PPP) [Relative time] 1.3 {INR} High 0.8-1.1 [facility] Comment on above: Performed By: #### Gurwinder Purdy PINR ####[facility] ([id number])[address] [address], [place] [address] PT Coag (PPP) [Time] 15.2 s High 9.8-13.2 [facility] Comment on above: Performed By: #### Gurwinder Purdy PINR ####[facility] ([id number])[address], [address], [place] [address] INR Coag (PPP) [Relative time] 1.5 {INR} High 0.8-1.1 [facility] Comment on above: Performed By: #### C BCA, PINR, BMP, , 2776-11, FEPR, 2276-4 ####[facility] ([id number])[address], [address], [place] [address] PT Coag (PPP) [Time] 17.4 s High 9.8-13.2 [facility] Comment on above: Performed By: #### C BCA, PINR, BMP, 41298-8, 2777-1, FEPR, 2276-4 ####[facility] ([id number])[address], [address], [place] [address] 50/50 MIX STUDYon 09-01-2024 aPTT Coag (Bld) [Time] 30 s Normal 26-37 [facility] Comment on above: Performed By: #### C BCA, 4679-7, BMP, 54071-0, 2777-1, 01973- 1, MIX, 3193-0, 3198-9, 3218-5 ####[facility] ([id number])[address], [address] [place] [address] 87408 PT 1:1 MIX 12.4 sec Normal 9.5-12.6 [facility] Comment on above: Performed By: #### C BCA, 4679-7, BMP, 40497-8, 2777-1, 40401- 1, MIX, 3193-0, 3198-9, 3218-5 ####[facility] ([id number])[address], [address] [place] [address], [place] [address] PT 1:1 MIX,INCUBATE 13.1 sec High 9.5-12.6 [facility] Comment on above: Performed By: #### C BCA, 4679-7, BMP, 16150-4, 2777-1, 04862- 1, MIX, 3193-0, 3198-9, 3218-5 ####[facility] ([id number])[address], [address], [place] [address] PT Coag (PPP) [Time] 17.7 s High 9.8-13.2 [facility] Comment on above: Performed By: #### C BCA, 4679-7, BMP, 59689-3, 2777-1, 81430- 1, MIX, 3193-0, 3198-9, 3218-5 ####[facility] ([id number])[address], [address], [place] [address] BASIC METABOLIC PANLon 09-01 Anion gap [Moles/Vol] 12 mmol/L Normal 5-15 [facility] Comment on above: Performed By: #### C BCA, 4679-7, BMP, 82417-8, 2777-1, 69957- 1, MIX, 3193-0, 3198-9, 3218-5 ####[facility] ([id number])[address], [address], [place] [address] Calcium [Mass/Vol] 8.9 mg/dL Normal 8.5-10.5 [facility] Comment on above: Performed By: #### C BCA, 4679-7, BMP, 00863-7, 2777-1, 26579- 1, MIX, 3193-0, 3198-9, 3218-5 ####[facility] ([id number])[address], [address], [place] [address] Chloride [Moles/Vol] 104 mmol/L Normal 98-109 [facility] Comment on above: Performed By: #### C BCA, 4679-7, BMP, 32020-9, 2777-1, 45677- 1, MIX, 3193-0, 3198-9, 3218-5 ####[facility] ([id number])[address], [address], [place] [address] CO2 [Moles/Vol] 23 mmol/L Normal 22-32 [facility] Comment on above: Performed By: #### C BCA, 4679-7, BMP, 56536-1, 2777-1, 83305- 1, MIX, 3193-0, 3198-9, 3218-5 ####[facility] ([id number])[address] [address] Creatinine [Mass/Vol] 3.44 mg/dL High 0.60-1.30 [facility] Comment on above: Result Comment: METH OD TRACEABLE TO IDMS STANDARD Performed By: #### C BCA, 4679-7, BMP, 86285-4, 2777-1, 53327-7, MIX, 3193-0, 3198-9, 3218-5 ####[facility] ([id number])[address] [address] GFR/1.73 sq M.predicted among non-blacks MDRD (S/P/Bld) [Vol rate/Area] 19 mL/min/{1.73_m2} Low >59 [facility] Comment on above: Result Comment: Repo rted eGFR is based on theCKD-EPI 2020 equation that doesnot use a race coefficient. Performed By: #### C BCA, 4679-7, BMP, 66679-0, 2777-1, 45730-5, MIX, 3193-0, 3198-9, 3218-5 ####[facility] ([id number])[address] [address] Glucose [Mass/Vol] 103 mg/dL High 65-99 [facility] Comment on above: Performed By: #### C BCA, 4679-7, BMP, 62277-4, 2777-1, 33319- 1, MIX, 3193-0, 3198-9, 3218-5 ####[facility] ([id number])[address] [address] [place] [address]014 Potassium [Moles/Vol] 6.0 mmol/L High 3.5-5.0 [facility] Comment on above: Performed By: #### C BCA, 4679-7, BMP, 98756-6, 2777-1, 65441- 1, MIX, 3193-0, 3198-9, 3218-5 ####[facility] ([id number])[address], [address] [place] [address]305 Sodium [Moles/Vol] 139 mmol/L Normal 134-146 [facility] Comment on above: Performed By: #### C BCA, 4679-7, BMP, 84966-0, 2777-1, 08868- 1, MIX, 3193-0, 3198-9, 3218-5 ####[facility] ([id number])[address], [address] [place] [address]0536 Urea nitrogen [Mass/Vol] 119 mg/dL High 5-27 [facility] Comment on above: Performed By: #### C BCA, 4679-7, BMP, 60439-6, 2777-1, 51114- 1, MIX, 3193-0, 3198-9, 3218-5 ####[facility] ([id number])[address], [address] [place] [address] 39180 CBC AND AUTO DIFFon 10-30-20 24 ABSOLUTE BASOPHIL 0.1 X10E9/L Normal 0.0-0.2 [facility] Comment on above: Performed By: #### C BCA, 4679-7, BMP, 28834-8, 2777-1, 75477- 1, MIX, 3193-0, 3198-9, 3218-5 ####[facility] ([id number])[address] [address] [place] [address]3837 Basophils/100 WBC (Bld) 1.0 % Normal [facility] Comment on above: Performed By: #### C BCA, 4679-7, BMP, 70620-2, 2777-1, 56181- 1, MIX, 3193-0, 3198-9, 3218-5 ####[facility] ([id number])[address], [address] [place] [address]12 Erythrocyte distribution width (RBC) [Ratio] 15.8 % High 11.5-15.0 [facility] Comment on above: Performed By: #### C BCA, 4679-7, BMP, 70734-7, 2777-1, 01626- 1, MIX, 3193-0, 3198-9, 3218-5 ####[facility] ([id number])[address], [address], [place] [address] Hematocrit (Bld) [Volume fraction] 17.7 % Low 39-49 [facility] Comment on above: Performed By: #### C BCA, 4679-7, BMP, 58233-1, 2777-1, 84429- 1, MIX, 3193-0, 3198-9, 3218-5 ####[facility] ([id number])[address], [address] [place] [address]706 Hemoglobin (Bld) [Mass/Vol] 6.1 g/dL Critically low 13.0-17.0 [facility] Comment on above: Performed By: #### C BCA, 4679-7, BMP, 06454-3, 2777-1, 00641- 1, MIX, 3193-0, 3198-9, 3218-5 ####[facility] ([id number])[address], [address] [place] [address] 67905 Lymphocytes (Bld) [#/Vol] 1.2 10*3/uL Normal 1.0-3.5 [facility] Comment on above: Performed By: #### C BCA, 4679-7, BMP, 60585-3, 2777-1, 73110- 1, MIX, 3193-0, 3198-9, 3218-5 ####[facility] ([id number])[address], [address] [place] [address] 10057 Lymphocytes/100 WBC (Bld) 11.5 % Normal [facility] Comment on above: Performed By: #### C BCA, 4679-7, BMP, 84578-5, 2777-1, 12208- 1, MIX, 3193-0, 3198-9, 3218-5 ####[facility] ([id number])[address], [address], [place] [address] MCH (RBC) [Entitic mass] 29.7 pg Normal 27-34 [facility] Comment on above: Performed By: #### C BCA, 4679-7, BMP, 98043-1, 2777-1, 50384- 1, MIX, 3193-0, 3198-9, 3218-5 ####[facility] ([id number])[address], [address], [place] [address] MCHC (RBC) [Mass/Vol] 34.6 g/dL Normal 32-36 [facility] Comment on above: Performed By: #### C BCA, 4679-7, BMP, 48851-3, 2777-1, 90376- 1, MIX, 3193-0, 3198-9, 3218-5 ####[facility] ([id number])[address], [address] [place] [address] 24615 MCV (RBC) [Entitic vol] 86 fL Normal 80-100 [facility] Comment on above: Performed By: #### C BCA, 4679-7, BMP, 03655-6, 2777-1, 70892- 1, MIX, 3193-0, 3198-9, 3218-5 ####[facility] ([id number])[address], [address] [place] [address]252 Monocytes (Bld) [#/Vol] 0.2 10*3/uL Normal 0-0.9 [facility] Comment on above: Performed By: #### C BCA, 4679-7, BMP, 31298-1, 2777-1, 57367- 1, MIX, 3193-0, 3198-9, 3218-5 ####[facility] ([id number])[address], [address], [place] [address] Monocytes/100 WBC (Bld) 1.9 % Normal [facility] Comment on above: Performed By: #### C BCA, 4679-7, BMP, 69927-6, 2777-1, 99317- 1, MIX, 3193-0, 3198-9, 3218-5 ####[facility] ([id number])[address], [address], [place] [address] MYELOCYTE 1.0 % Normal [facility] Comment on above: Performed By: #### C BCA, 4679-7, BMP, 79087-4, 2777-1, 80385- 1, MIX, 3193-0, 3198-9, 3218-5 ####[facility] ([id number])[address], [address], [place] [address] Neutrophils (Bld) [#/Vol] 8.6 10*3/uL High 1.5-6.6 [facility] Comment on above: Performed By: #### C BCA, 4679-7, BMP, 59927-8, 2777-1, 38272- 1, MIX, 3193-0, 3198-9, 3218-5 ####[facility] ([id number])[address], [address], [place] [address] Platelet mean volume (Bld) [Entitic vol] 9.8 fL Normal 7-12 [facility] Comment on above: Performed By: #### C BCA, 4679-7, BMP, 97861-8, 2777-1, 37051- 1, MIX, 3193-0, 3198-9, 3218-5 ####[facility] ([id number])[address], [address], [place] [address] Platelets (Bld) [#/Vol] 72 10*3/uL Low 150-450 [facility] Comment on above: Performed By: #### C BCA, 4679-7, BMP, 77594-9, 2777-1, 89648- 1, MIX, 3193-0, 3198-9, 3218-5 ####[facility] ([id number])[address], [address], [place] [address] RBC COUNT 2.06 X10E12/L Low 4.10-5.70 [facility] Comment on above: Performed By: #### C BCA, 4679-7, BMP, 67592-3, 2777-1, 93016- 1, MIX, 3193-0, 3198-9, 3218-5 ####[facility] ([id number])[address], [address] [place] [address] RBC morphology finding Nom (Bld) NORMAL Normal [facility] Comment on above: Performed By: #### C BCA, 4679-7, BMP, 87614-1, 2777-1, 49299- 1, MIX, 3193-0, 3198-9, 3218-5 ####[facility] ([id number])[address], [address] [place] [address]22 SEG NEUTROPHIL 84.6 % Normal [facility] Comment on above: Performed By: #### C BCA, 4679-7, BMP, 21700-0, 2777-1, 34770- 1, MIX, 3193-0, 3198-9, 3218-5 ####[facility] ([id number])[address], [address] [place] [address]79 WBC (Bld) [#/Vol] 10.2 10*3/uL Normal 4.0-11.0 [facility] Comment on above: Performed By: #### C BCA, 4679-7, BMP, 91595-4, 2777-1, 17171- 1, MIX, 3193-0, 3198-9, 3218-5 ####[facility] ([id number])[address], [place] [address] Coagulation factor V activit y actual/normal Coag (PPP) [Relative time]on 09-01-2024 FACTOR 5 ASSAY 105 % act Normal 62-139 [facility] Comment on above: Performed By: #### C BCA, 4679-7, BMP, 00558-8, 2777-1, 39684- 1, MIX, 3193-0, 3198-9, 3218-5 ####[facility] ([id number])[address], [address], [place] [address] Coagulation factor VII activ ity actual/normal Coag (PPP) [Relative time]on 09-01-2024 FACTOR 7 ASSAY 25 % act Low 50-129 [facility] Comment on above: Performed By: #### C BCA, 4679-7, BMP, 25479-3, 2777-1, 19053- 1, MIX, 3193-0, 3198-9, 3218-5 ####[facility] ([id number])[address], [address], [place] [address] Coagulation factor X activit y actual/normal Coag (PPP) [Relative time]on 09-01-2024 FACTOR 10 ASSAY 63 % act Low 70-150 [facility] Comment on above: Performed By: #### C BCA, 4679-7, BMP, 58743-8, 2777-1, 44530- 1, MIX, 3193-0, 3198-9, 3218-5 ####[facility] ([id number])[address], [address] [place] [id number] Glucose Glucometer (BldC) [M ass/Vol]on 09-01-2024 Glucose [Mass/Vol] 109 mg/dL High 65-99 [facility] HGB AND HCTon 09-01-2024 Hematocrit (Bld) [Volume fraction] 22.0 % Low 39-49 [facility] Comment on above: Performed By: #### H H ####[facility] ([id number])[address], [address] [place] [address] Hemoglobin (Bld) [Mass/Vol] 7.5 g/dL Low 13.0-17.0 [facility] Comment on above: Performed By: #### H H ####[facility] ([id number])[address], [address], [place] [address] Hematocrit (Bld) [Volume fraction] 26.5 % Low 39-49 [facility] Comment on above: Performed By: #### H H ####[facility] ([id number])[address], [address], [place] [address] Hemoglobin (Bld) [Mass/Vol] 8.9 g/dL Low 13.0-17.0 [facility] Comment on above: Performed By: #### H H ####[facility] ([id number])[address], [address], [place] [address] Hematocrit (Bld) [Volume fraction] 18.8 % Low 39-49 [facility] Comment on above: Performed By: #### H H ####[facility] ([id number])[address], [address], [place] [address] Hemoglobin (Bld) [Mass/Vol] 6.3 g/dL Critically low 13.0-17.0 [facility] Comment on above: Performed By: #### H H ####[facility] ([id number])[address], [address] [address] HIV 1+2 Ab+HIV1 p24 Ag IA Ql on 09-01-2024 HIV 1 and 2 Ab/Ag Screen Non-Reactive Normal NRCT [facility] Comment on above: Result Comment: This information has been disclosed to youfrom confidential records protected fromdisclosure by state law. You shall make nofurther disclosure of this information withoutthe specific, written and informed releaseof the individual to whom it pertains, or asotherwise permitted by state law. A generalauthorization for the release of medical orother information is not sufficient for thepurpose of the release of HIV test resultsor diagnoses. Performed By: #### C KERRY, 4679-7, BMP, 54581-2, 2777-1, 68473-1, MIX, 3193-0, 3198-9, 3218-5 ####[facility] ([id number])[address], [address], [place] [address] IR ANGIO VISCERAL W WO FLUSH on 09-01-2024 IR ANGIO VISCERAL W WO FLUSH Normal [facility] Immature Platelet Fractionon 09-01-2024 Immature Platelet Fraction 6.6 % Normal 1.0-11.4 [facility] Comment on above: Result Comment: NOTE Performed At: [facility] ([facility] [place], [place] [address]Medical Director: DIRK HERNÁNDEZ, DOCLIA Number: [id number] Laboratory comment Abhishek (Repo rt)on 09-01-2024 UNLISTED LAB TEST Sent to reference lab Normal [facility] [facility] MAGNESIUMon 09-01-2024 Magnesium [Mass/Vol] 1.8 mg/dL Normal 1.8-2.6 [facility] Comment on above: Performed By: #### C KERRY, 4679-7, BMP, 47295-4, 2777-1, 63306- 1, MIX, 3193-0, 3198-9, 3218-5 ####[facility] ([id number])[address], [address] [place] [address]85 Magnesium Ionized ISE (Bld) [Moles/Vol]on 09-01-2024 Magnesium [Moles/Vol] 0.60 mmol/L Normal 0.45-0.74 [facility] Comment on above: Result Comment: NEW REFERENCE RANGE Performed By: #### 7 3572-0 ####[facility] ([id number])[address], [address], [place] [address] PHOSPHORUSon 09-01-2024 Phosphate [Mass/Vol] 4.2 mg/dL Normal 2.4-4.9 [facility] Comment on above: Performed By: #### C BCA, 4679-7, BMP, 06660-3, 2777-1, 99084- 1, MIX, 3193-0, 3198-9, 3218-5 ####[facility] ([id number])[address], [address], [place] [address] POTASSIUMon 09-01-2024 Potassium [Moles/Vol] 5.6 mmol/L High 3.5-5.0 [facility] Comment on above: Performed By: #### 2 823-3 ####[facility] ([id number])[address], [address] [place] [address]16[address] Reticulocytes/100 RBC (Bld)o n 09-01-2024 RETICULOCYTE COUNT <0.4 Low 0.4-2.2 [facility] Comment on above: Performed By: #### C BCA, 4679-7, BMP, 35804-5, 2777-1, 53765- 1, MIX, 3193-0, 3198-9, 3218-5 ####[facility] ([id number])[address] [place] [address] BASIC METABOLIC PANLon 08-31 Anion gap [Moles/Vol] 12 mmol/L Normal 5-15 [facility] Comment on above: Performed By: #### C BCA, BMP, 27551-6, 2776-1, PINR, FEPR, 2276-4, 2284-8, 2132-07 ####[facility] ([id number])[address], [address] [place] [address]163 Calcium [Mass/Vol] 9.2 mg/dL Normal 8.5-10.5 [facility] Comment on above: Performed By: #### C BCA, BMP, 00820-1, 2776-1, PINR, FEPR, 2276-4, 2284-8, 2132-07 ####[facility] ([id number])[address] [address] [place] [address]102 Chloride [Moles/Vol] 103 mmol/L Normal 98-109 [facility] Comment on above: Performed By: #### C BCA, BMP, 94827-7, 2776-1, PINR, FEPR, 2276-4, 2284-8, 2132-07 ####[facility] ([id number])[address], [address] [place] [address] 90658 CO2 [Moles/Vol] 24 mmol/L Normal 22-32 [facility] Comment on above: Performed By: #### C BCA, BMP, , 2776-, PINR, FEPR, 6-4, 2283-8, 2132-07 ####[facility] ([id number])[address] [address] Creatinine [Mass/Vol] 3.23 mg/dL High 0.60-1.30 [facility] Comment on above: Result Comment: METH OD TRACEABLE TO IDMS STANDARD Performed By: #### C BCA, BMP, , 2776-, PINR, FEPR, 2276-4, 2283-, 2132-07 ####[facility] ([id number])[address] [address] GFR/1.73 sq M.predicted among non-blacks MDRD (S/P/Bld) [Vol rate/Area] 20 mL/min/{1.73_m2} Low >59 [facility] Comment on above: Result Comment: Repo rted eGFR is based on theCKD-EPI 2020 equation that doesnot use a race coefficient. Performed By: #### C BCA, BMP, 90741-9, 2776-1, PINR, FEPR, 2276-4, 4-8, 2132-07 ####[facility] ([id number])[address], [address], [place] [address] Glucose [Mass/Vol] 134 mg/dL High 65-99 [facility] Comment on above: Performed By: #### C BCA, BMP, , 2776-, PINR, FEPR, 2276-4, 2283-8, 2132-07 ####[facility] ([id number])[address], [address], [place] [address] Potassium [Moles/Vol] 4.8 mmol/L Normal 3.5-5.0 [facility] Comment on above: Performed By: #### C BCA, BMP, , 2776-11, PINR, FEPR, 2276-4, 2283-8, 2132-07 ####[facility] ([id number])[address], [address] [place] [address]90 Sodium [Moles/Vol] 139 mmol/L Normal 134-146 [facility] Comment on above: Performed By: #### C BCA, BMP, , 2776-11, PINR, FEPR, 6-4, 2283-8, 2132-07 ####[facility] ([id number])[address], [address] [place] [address]121 Urea nitrogen [Mass/Vol] 102 mg/dL High 5-27 [facility] Comment on above: Performed By: #### C BCA, BMP, , 2776-11, PINR, FEPR, 2276-4, 2283-8, 2132-07 ####[facility] ([id number])[address], [address] [place] [address]1016 CBC AND AUTO DIFFon 10-29-20 24 ABSOLUTE BASOPHIL 0.0 X10E9/L Normal 0.0-0.2 [facility] Comment on above: Performed By: #### C BCA, BMP, , 2776-11, PINR, FEPR, 2276-4, 2284-8, 2132-07 ####[facility] ([id number])[address], [address] [place] [address] 33796 ABSOLUTE NEUTROPHIL 5.5 X10E9/L Normal 1.5-6.6 [facility] Comment on above: Performed By: #### C BCA, BMP, , 2776-, PINR, FEPR, 6-4, 2283-8, 2132-07 ####[facility] ([id number])[address], [address] [place] [address] 62422 Basophils/100 WBC (Bld) 0.1 % Normal [facility] Comment on above: Performed By: #### C BCA, BMP, , 2776-, PINR, FEPR, 2275-4, 2283-8, 2132-07 ####[facility] ([id number])[address], [address] [place] [address]166 Eosinophils (Bld) [#/Vol] 0.0 10*3/uL Normal 0.0-0.4 [facility] Comment on above: Performed By: #### C BCA, BMP, , 2776-11, PINR, FEPR, 2275-4, 2283-8, 2132-07 ####[facility] ([id number])[address], [address] [place] [address]57 Eosinophils/100 WBC (Bld) 0.0 % Normal [facility] Comment on above: Performed By: #### C BCA, BMP, , 2776-11, PINR, FEPR, 6-4, 2283-8, 2132-07 ####[facility] ([id number])[address], [address] [place] [address] Erythrocyte distribution width (RBC) [Ratio] 16.1 % High 11.5-15.0 [facility] Comment on above: Performed By: #### C BCA, BMP, , 2776-, PINR, FEPR, 2276-4, 2284-8, 2132-07 ####[facility] ([id number])[address], [address] [place] [address] 97712 Hematocrit (Bld) [Volume fraction] 19.5 % Low 39-49 [facility] Comment on above: Performed By: #### C BCA, BMP, , 2776-11, PINR, FEPR, 2276-4, 4-8, 2132-07 ####[facility] ([id number])[address] [address] [place] [address] 51567 Hemoglobin (Bld) [Mass/Vol] 6.7 g/dL Critically low 13.0-17.0 [facility] Comment on above: Performed By: #### C BCA, BMP, , 2776-11, PINR, FEPR, 2276-4, 2283-8, 2132-07 ####[facility] ([id number])[address] [address] [place] [address]607 Lymphocytes (Bld) [#/Vol] 0.3 10*3/uL Low 1.0-3.5 [facility] Comment on above: Performed By: #### C BCA, BMP, , 2776-11, PINR, FEPR, 2276-4, 2283-8, 2132-07 ####[facility] ([id number])[address] [address] [place] [address] 65346 Lymphocytes/100 WBC (Bld) 4.4 % Normal [facility] Comment on above: Performed By: #### C BCA, BMP, , 2776-11, PINR, FEPR, 2276-4, 2283-8, 2132-07 ####[facility] ([id number])[address] [address] [place] [address] 78329 MCH (RBC) [Entitic mass] 29.5 pg Normal 27-34 [facility] Comment on above: Performed By: #### C BCA, BMP, 62327-9, 2776-1, PINR, FEPR, 2276-4, 228-8, 2132-07 ####[facility] ([id number])[address], [address], [place] [address] MCHC (RBC) [Mass/Vol] 34.3 g/dL Normal 32-36 [facility] Comment on above: Performed By: #### C BCA, BMP, 96056-5, 2776-1, PINR, FEPR, 2276-4, 2283-8, 2132-07 ####[facility] ([id number])[address], [address] [place] [address] 26354 MCV (RBC) [Entitic vol] 86 fL Normal 80-100 [facility] Comment on above: Performed By: #### C BCA, BMP, 44620-5, 2776-, PINR, FEPR, 6-4, 2283-8, 2132-07 ####[facility] ([id number])[address], [address] [place] [address] 69845 Monocytes (Bld) [#/Vol] 0.1 10*3/uL Normal 0-0.9 [facility] Comment on above: Performed By: #### C BCA, BMP, 60778-0, 2776-, PINR, FEPR, 2276-4, 2283-8, 2132-07 ####[facility] ([id number])[address], [address] [place] [address] 61336 Monocytes/100 WBC (Bld) 2.2 % Normal [facility] Comment on above: Performed By: #### C BCA, BMP, 33890-1, 2776-1, PINR, FEPR, 2276-4, 2283-8, 2132-07 ####[facility] ([id number])[address], [address] [place] [address] 93937 Neutrophils/100 WBC (Bld) 93.3 % Normal [facility] Comment on above: Performed By: #### C BCA, BMP, 24341-5, 2776-1, PINR, FEPR, 2276-4, 2284-8, 2132-07 ####[facility] ([id number])[address], [address] [place] [address] 40397 Platelet mean volume (Bld) [Entitic vol] 9.7 fL Normal 7-12 [facility] Comment on above: Performed By: #### C BCA, BMP, 21765-4, 2776-, PINR, FEPR, 2276-4, 2284-8, 2132-07 ####[facility] ([id number])[address] [address] [place] [address] 38673 Platelets (Bld) [#/Vol] 38 10*3/uL Low 150-450 [facility] Comment on above: Performed By: #### C BCA, BMP, 80106-3, 2776-1, PINR, FEPR, 2276-4, 2284-8, 2132-07 ####[facility] ([id number])[address] [address] [place] [address] 97821 RBC COUNT 2.26 X10E12/L Low 4.10-5.70 [facility] Comment on above: Performed By: #### C BCA, BMP, 90333-9, 2776-1, PINR, FEPR, 2276-4, 2284-8, 2132-07 ####[facility] ([id number])[address], [address] [place] [address] 43851 WBC (Bld) [#/Vol] 5.9 10*3/uL Normal 4.0-11.0 [facility] Comment on above: Performed By: #### C BCA, BMP, 62387-1, 2776-1, PINR, FEPR, 2276-4, 2284-8, 2132-07 ####[facility] ([id number])[address] [address] FERRITINon 08-31-2024 Ferritin [Mass/Vol] 653 ng/mL High 24-336 [facility] Comment on above: Performed By: #### C BCA, BMP, 83026-7, 2776-1, PINR, FEPR, 2276-4, 2284-8, 2132-07 ####[facility] ([id number])[address], [address], [place] [address] Folate [Mass/Vol]on 08-31-20 24 FOLIC ACID 12.2 ng/mL Normal >5.8 [facility] Comment on above: Result Comment: NEW REFERENCE RANGE Performed By: #### C BCA, BMP, , 2776-, PINR, FEPR, 2276-4, 2283-8, 2132-07 ####[facility] ([id number])[address], [address], [place] [address] HGB AND HCTon 08-31-2024 Hematocrit (Bld) [Volume fraction] 17.9 % Low 39-49 [facility] Comment on above: Performed By: #### H H ####[facility] ([id number])[address], [place] [address] Hemoglobin (Bld) [Mass/Vol] 6.1 g/dL Critically low 13.0-17.0 [facility] Comment on above: Performed By: #### H H ####[facility] ([id number])[address], [address] [place] [address], [place] [address] Hematocrit (Bld) [Volume fraction] 22.0 % Low 39-49 [facility] Comment on above: Performed By: #### H H, PLTCT ####[facility] ([id number])[address], [address], [place] [address] Hemoglobin (Bld) [Mass/Vol] 7.6 g/dL Low 13.0-17.0 [facility] Comment on above: Performed By: #### H H, PLTCT ####[facility] ([id number])[address], [address], [place] [address] Hematocrit (Bld) [Volume fraction] 25.2 % Low 39-49 [facility] Comment on above: Performed By: #### H H ####[facility] ([id number])[address], [address], [place] [address] Hemoglobin (Bld) [Mass/Vol] 8.7 g/dL Low 13.0-17.0 [facility] Comment on above: Performed By: #### H H ####[facility] ([id number])[address], [address] [address] Hematocrit (Bld) [Volume fraction] 28.3 % Low 39-49 [facility] Comment on above: Performed By: #### H H, 4679-7 ####[facility] ([id number])[address], [address] [address] Hemoglobin (Bld) [Mass/Vol] 9.7 g/dL Low 13.0-17.0 [facility] Comment on above: Performed By: #### H H, 4679-7 ####[facility] ([id number])[address], [address], [place] [address] IRON PROFILEon 08-31-2024 Iron [Mass/Vol] 42 ug/dL Low 50-212 [facility] Comment on above: Performed By: #### C BCA, BMP, 47785-4, 2777-1, PINR, FEPR, 2276-4, 2284-8, 2131-9 ####[facility] ([id number])[address], [place] [address] IRON BINDING 116 ug/dL Low 250-425 [facility] Comment on above: Performed By: #### C BCA, BMP, 96147-9, 2776-1, PINR, FEPR, 2276-4, 2283-8, 2132-07 ####[facility] ([id number])[address], [address], [place] [address] IRON SATURATION 36 % SATURATION Normal 20-50 [facility] Comment on above: Performed By: #### C BCA, BMP, 63143-7, 2776-1, PINR, FEPR, 2276-4, 2283-8, 2132-07 ####[facility] ([id number])[address], [address] [address] MAGNESIUMon 08-31-2024 Magnesium [Mass/Vol] 2.1 mg/dL Normal 1.8-2.6 [facility] Comment on above: Performed By: #### C BCA, BMP, 79458-0, 2776-1, PINR, FEPR, 6-4, 2283-8, 2132-07 ####[facility] ([id number])[address], [address], [place] [address] PHOSPHORUSon 08-31-2024 Phosphate [Mass/Vol] 5.9 mg/dL High 2.4-4.9 [facility] Comment on above: Performed By: #### C BCA, BMP, 53753-5, 2776-, PINR, FEPR, 2276-4, 2283-8, 2132-07 ####[facility] ([id number])[address], [address], [place] [address] PLATELET COUNT AND MPVon Platelet mean volume (Bld) [Entitic vol] 9.8 fL Normal 7-12 [facility] Comment on above: Performed By: #### H H, PLTCT ####[facility] ([id number])[address] [address] Platelets (Bld) [#/Vol] 103 10*3/uL Low 150-450 [facility] Comment on above: Performed By: #### H H, PLTCT ####[facility] ([id number])[address], [place] [address] PROTIME AND INRon 08-31-2024 INR Coag (PPP) [Relative time] 1.5 {INR} High 0.8-1.1 [facility] Comment on above: Performed By: #### C BCA, BMP, , 2776-11, PINR, FEPR, 6-4, 2284-06, 2132-07 ####[facility] ([id number])[address], [place] [address] PT Coag (PPP) [Time] 17.2 s High 9.8-13.2 [facility] Comment on above: Performed By: #### C BCA, BMP, , 2776-11, PINR, FEPR, 2275-, 2284-06, 2132-07 ####[facility] ([id number])[address], [place] [address] Reticulocytes/100 RBC (Bld)o n 08-31-2024 RETICULOCYTE COUNT <0.4 Low 0.4-2.2 [facility] Comment on above: Performed By: #### H H, 4679-7 ####[facility] ([id number])[address] [address] VITAMIN B12on 08-31-2024 Cobalamin (Vitamin B12) [Mass/Vol] 185 pg/mL Normal 180-914 [facility] Comment on above: Performed By: #### C BCA, BMP, , 2776-11, PINR, FEPR, 2276-4, 2284-8, 2132-9 ####[facility] ([id number])[address] [address] BASIC METABOLIC PANLon 08-30 Anion gap [Moles/Vol] 12 mmol/L Normal 5-15 [facility] Comment on above: Performed By: #### C BCA, BMP, 40096-0, 2777-1, PINR, 59675-6, 79489-2 ####[facility] ([id number])[address], [place] [address] Calcium [Mass/Vol] 9.1 mg/dL Normal 8.5-10.5 [facility] Comment on above: Performed By: #### C BCA, BMP, 20426-0, 2776-1, PINR, 13538-0, 50094-9 ####[facility] ([id number])[address], [place] [address] Chloride [Moles/Vol] 101 mmol/L Normal 98-109 [facility] Comment on above: Performed By: #### C BCA, BMP, 17855-1, 2776-, PINR, 33768-2, 44017-5 ####[facility] ([id number])[address], [address], [place] [address] CO2 [Moles/Vol] 25 mmol/L Normal 22-32 [facility] Comment on above: Performed By: #### C BCA, BMP, 25578-3, 2777-1, PINR, 33259-9, 96094-7 ####[facility] ([id number])[address], [place] [address] Creatinine [Mass/Vol] 2.91 mg/dL High 0.60-1.30 [facility] Comment on above: Result Comment: METH OD TRACEABLE TO IDMS STANDARD Performed By: #### C BCA, BMP, 72066-4, 2777-1, PINR, 75242-5, 74428-8 ####[facility] ([id number])[address] [address] [address] GFR/1.73 sq M.predicted among non-blacks MDRD (S/P/Bld) [Vol rate/Area] 23 mL/min/{1.73_m2} Low >59 [facility] Comment on above: Result Comment: Repo rted eGFR is based on theCKD-EPI 2020 equation that doesnot use a race coefficient. Performed By: #### C BCA, BMP, , 2776-11, PINR, 78295-1, 58589-0 ####[facility] ([id number])[address] [address] Glucose [Mass/Vol] 96 mg/dL Normal 65-99 [facility] Comment on above: Performed By: #### C BCA, BMP, , 2776-11, PINR, 27144-1, 19594-4 ####[facility] ([id number])[address] [address] Potassium [Moles/Vol] 4.4 mmol/L Normal 3.5-5.0 [facility] Comment on above: Performed By: #### C BCA, BMP, , 2776-11, PINR, 23013-4, 80948-5 ####[facility] ([id number])[address] [address] Sodium [Moles/Vol] 138 mmol/L Normal 134-146 [facility] Comment on above: Performed By: #### C BCA, BMP, , 2776-11, PINR, 90796-8, 97019-7 ####[facility] ([id number])[address] [address] [place] [address] Urea nitrogen [Mass/Vol] 76 mg/dL High 5-27 [facility] Comment on above: Performed By: #### C BCA, BMP, 60124-4, 2776-1, PINR, 47444-0, 98723-4 ####[facility] ([id number])[address] [place] [address] CBC AND AUTO DIFFon 10-28-20 24 ABSOLUTE BASOPHIL 0.0 X10E9/L Normal 0.0-0.2 [facility] Comment on above: Performed By: #### C BCA, BMP, 03270-6, 2776-, PINR, 18068-4, 27272-4 ####[facility] ([id number])[address], [address] [place] [address] ABSOLUTE NEUTROPHIL 8.6 X10E9/L High 1.5-6.6 [facility] Comment on above: Performed By: #### C BCA, BMP, , 2776-, PINR, 84762-8, 09673-9 ####[facility] ([id number])[address], [address] [place] [address] 78518 Basophils/100 WBC (Bld) 0.4 % Normal [facility] Comment on above: Performed By: #### C BCA, BMP, , 2776-, PINR, 01271-6, 57692-4 ####[facility] ([id number])[address], [address] [place] [address]32 Eosinophils (Bld) [#/Vol] 0.2 10*3/uL Normal 0.0-0.4 [facility] Comment on above: Performed By: #### C BCA, BMP, 00260-0, 2776-, PINR, 74738-3, 74153-2 ####[facility] ([id number])[address], [address] [place] [address] 27478 Eosinophils/100 WBC (Bld) 1.6 % Normal [facility] Comment on above: Performed By: #### C BCA, BMP, 92848-0, 2777-1, PINR, 09197-6, 46789-8 ####[facility] ([id number])[address] [address] [place] [address]01 Erythrocyte distribution width (RBC) [Ratio] 16.8 % High 11.5-15.0 [facility] Comment on above: Performed By: #### C BCA, BMP, 14322-1, 2777-1, PINR, 22211-0, 38116-4 ####[facility] ([id number])[address] [address] [place] [address] 58397 Hematocrit (Bld) [Volume fraction] 22.4 % Low 39-49 [facility] Comment on above: Performed By: #### C BCA, BMP, 52288-0, 2776-, PINR, 52589-7, 02484-7 ####[facility] ([id number])[address] [address] [place] [address] 67884 Hemoglobin (Bld) [Mass/Vol] 7.5 g/dL Low 13.0-17.0 [facility] Comment on above: Performed By: #### C BCA, BMP, 50586-4, 2776-1, PINR, 57861-9, 83773-8 ####[facility] ([id number])[address] [address] Lymphocytes (Bld) [#/Vol] 1.3 10*3/uL Normal 1.0-3.5 [facility] Comment on above: Performed By: #### C BCA, BMP, 88162-5, 7-, PINR, 60002-3, 36554-9 ####[facility] ([id number])[address] [address] [place] [address] 50869 Lymphocytes/100 WBC (Bld) 11.6 % Normal [facility] Comment on above: Performed By: #### C BCA, BMP, , 2776-, PINR, 68208-4, 60197-8 ####[facility] ([id number])[address], [address], [place] [address] MCH (RBC) [Entitic mass] 28.6 pg Normal 27-34 [facility] Comment on above: Performed By: #### C BCA, BMP, , 2776-, PINR, 25015-1, 97352-2 ####[facility] ([id number])[address], [address] [place] [address]4973 MCHC (RBC) [Mass/Vol] 33.7 g/dL Normal 32-36 [facility] Comment on above: Performed By: #### C BCA, BMP, , 2776-, PINR, 24623-1, 67084-5 ####[facility] ([id number])[address], [address], [place] [address] MCV (RBC) [Entitic vol] 85 fL Normal 80-100 [facility] Comment on above: Performed By: #### C BCA, BMP, , 2776-, PINR, 80211-3, 44550-4 ####[facility] ([id number])[address], [address] [place] [address] 05935 Monocytes (Bld) [#/Vol] 1.3 10*3/uL High 0-0.9 [facility] Comment on above: Performed By: #### C BCA, BMP, , 2776-, PINR, 91916-4, 07527-0 ####[facility] ([id number])[address], [address], [place] [address] Monocytes/100 WBC (Bld) 10.9 % Normal [facility] Comment on above: Performed By: #### C BCA, BMP, 97415-0, 2777-1, PINR, 70256-4, 26814-8 ####[facility] ([id number])[address], [address], [place] [address] Neutrophils/100 WBC (Bld) 75.5 % Normal [facility] Comment on above: Performed By: #### C BCA, BMP, 47783-1, 2777-1, PINR, 23112-7, 25593-3 ####[facility] ([id number])[address], [address] [place] [address] Platelet mean volume (Bld) [Entitic vol] 9.3 fL Normal 7-12 [facility] Comment on above: Performed By: #### C BCA, BMP, 97321-2, 7-1, PINR, 81585-3, 48764-9 ####[facility] ([id number])[address], [address] [place] [address] 25102 Platelets (Bld) [#/Vol] 32 10*3/uL Low 150-450 [facility] Comment on above: Performed By: #### C BCA, BMP, 14889-0, 2776-, PINR, 42732-6, 94905-6 ####[facility] ([id number])[address], [address], [place] [address] RBC COUNT 2.64 X10E12/L Low 4.10-5.70 [facility] Comment on above: Performed By: #### C BCA, BMP, 34159-0, 2777-1, PINR, 75397-8, 63153-2 ####[facility] ([id number])[address], [address] [place] [address] 65116 WBC (Bld) [#/Vol] 11.5 10*3/uL High 4.0-11.0 [facility] Comment on above: Performed By: #### C BCA, BMP, 74580-5, 2777-1, PINR, 96896-3, 05291-6 ####[facility] ([id number])[address], [address] [place] [address] 24500 HBV core Ab IA Qlon 08-30-20 24 ANTI HBc Negative Normal NEG [facility] Comment on above: Performed By: #### C BCA, BMP, 17955-2, 7-1, PINR, 02445-5, 87760-9 ####[facility] ([id number])[address], [address] [place] [address] 70306 HGB AND HCTon 08-30-2024 Hematocrit (Bld) [Volume fraction] 23.2 % Low 39-49 [facility] Comment on above: Performed By: #### H H, PLTCT ####[facility] ([id number])[address] [address] [place] [address] Hemoglobin (Bld) [Mass/Vol] 7.8 g/dL Low 13.0-17.0 [facility] Comment on above: Performed By: #### H H, PLTCT ####[facility] ([id number])[address] [address] [place] [address] Performed By: #### H H ####[facility] ([id number])[address] [address] [place] [address]149 Hematocrit (Bld) [Volume fraction] 22.7 % Low 39-49 [facility] Comment on above: Performed By: #### H H ####[facility] ([id number])[address] [address] IR EMBO-HEMORAGE/TRAUMA/HEMO PTYSISon 08-30-2024 IR EMBO-HEMORAGE/TRAUMA /HEMOPTYSIS Normal [facility] Lactate (P oc) [Moles/Vol]o n 08-30-2024 LACTATE W/REFLEX 1.3 mmol/L Normal 0.4-2.0 [facility] Comment on above: Result Comment: Resu lt did not trigger repeat Lactate,re-order if needed. Performed By: #### 3 2132-1 ####[facility] ([id number])[address] [address] LACTATE W/REFLEX 1.0 mmol/L Normal 0.4-2.0 [facility] Comment on above: Result Comment: Resu lt did not trigger repeat Lactate,re-order if needed. Performed By: #### 3 2132-1 ####[facility] ([id number])[address] [address] LACTATE W/REFLEX 0.8 mmol/L Normal 0.4-2.0 [facility] Comment on above: Result Comment: Resu lt did not trigger repeat Lactate,re-order if needed. Performed By: #### C BCA, BMP, , 2776-, PINR, 75770-6, 77672-8 ####[facility] ([id number])[address] [address] MAGNESIUMon 08-30-2024 Magnesium [Mass/Vol] 1.8 mg/dL Normal 1.8-2.6 [facility] Comment on above: Performed By: #### C BCA, BMP, , 2776-11, PINR, 94871-7, 63512-2 ####[facility] ([id number])[address], [address], [place] [address] PHOSPHORUSon 08-30-2024 Phosphate [Mass/Vol] 4.7 mg/dL Normal 2.4-4.9 [facility] Comment on above: Performed By: #### C BCA, BMP, , 2776-, PINR, 55440-1, 64568-9 ####[facility] ([id number])[address], [address] [address] PLATELET COUNT AND MPVon Platelet mean volume (Bld) [Entitic vol] 10.0 fL Normal 7-12 [facility] Comment on above: Performed By: #### H H, PLTCT ####[facility] ([id number])[address], [address], [place] [address] Platelets (Bld) [#/Vol] 40 10*3/uL Low 150-450 [facility] Comment on above: Performed By: #### H H, PLTCT ####[facility] ([id number])[address], [address] [place] [address]777 PROTIME AND INRon 08-30-2024 INR Coag (PPP) [Relative time] 1.6 {INR} High 0.8-1.1 [facility] Comment on above: Performed By: #### C BCA, BMP, 13173-0, 2776-1, PINR, 73126-3, 30722-4 ####[facility] ([id number])[address], [address] [place] [address], [place] [address] PT Coag (PPP) [Time] 18.0 s High 9.8-13.2 [facility] Comment on above: Performed By: #### C BCA, BMP, 38915-5, 2776-1, PINR, 68505-3, 66195-7 ####[facility] ([id number])[address], [address], [place] [address] BASIC METABOLIC PANLon 08-29 Anion gap [Moles/Vol] 13 mmol/L Normal 5-15 [facility] Comment on above: Performed By: #### C BCA, BMP, LIVR, 56157-7, 26364-8, 2777-1 ####[facility] ([id number])[address] [address], [place] [address] Calcium [Mass/Vol] 9.1 mg/dL Normal 8.5-10.5 [facility] Comment on above: Performed By: #### C BCA, BMP, LIVR, 30161-2, 06217-8, 277-1 ####[facility] ([id number])[address] [address] [place] [address]39 Chloride [Moles/Vol] 101 mmol/L Normal 98-109 [facility] Comment on above: Performed By: #### C BCA, BMP, LIVR, 53386-8, 26379-2, 277-1 ####[facility] ([id number])[address] [address] CO2 [Moles/Vol] 24 mmol/L Normal 22-32 [facility] Comment on above: Performed By: #### C BCA, BMP, LIVR, 84823-9, 64263-3, 277-1 ####[facility] ([id number])[address] [address] Creatinine [Mass/Vol] 2.83 mg/dL High 0.60-1.30 [facility] Comment on above: Result Comment: METH OD TRACEABLE TO IDMS STANDARD Performed By: #### C BCA, BMP, LIVR, 32907-7, 52034-7, 2777-1 ####[facility] ([id number])[address] [address] GFR/1.73 sq M.predicted among non-blacks MDRD (S/P/Bld) [Vol rate/Area] 24 mL/min/{1.73_m2} Low >59 [facility] Comment on above: Result Comment: Repo rted eGFR is based on theCKD-EPI 2020 equation that doesnot use a race coefficient. Performed By: #### C BCA, BMP, LIVR, 02607-0, 88537-2, 2777-1 ####[facility] ([id number])[address], [place] [address] Glucose [Mass/Vol] 103 mg/dL High 65-99 [facility] Comment on above: Performed By: #### C BCA, BMP, LIVR, 90350-8, 47057-8, 277-1 ####[facility] ([id number])[address], [address], [place] [address] Potassium [Moles/Vol] 4.0 mmol/L Normal 3.5-5.0 [facility] Comment on above: Performed By: #### C BCA, BMP, LIVR, 60304-0, 29982-0, 277-1 ####[facility] ([id number])[address], [address], [place] [address] Sodium [Moles/Vol] 138 mmol/L Normal 134-146 [facility] Comment on above: Performed By: #### C BCA, BMP, LIVR, 16785-9, 90471-8, 27705-03 ####[facility] ([id number])[address], [address], [place] [address] Urea nitrogen [Mass/Vol] 68 mg/dL High 5-27 [facility] Comment on above: Performed By: #### C BCA, BMP, LIVR, 96834-6, 52211-2, 277- ####[facility] ([id number])[address], [address], [place] [address] Anion gap [Moles/Vol] 13 mmol/L Normal 5-15 [facility] Comment on above: Performed By: #### C BCA, PINR, BMP, 25555-5, 7-1, 90522-5 ####[facility] ([id number])[address], [address], [place] [address] Calcium [Mass/Vol] 9.1 mg/dL Normal 8.5-10.5 [facility] Comment on above: Performed By: #### C BCA, PINR, BMP, , 2776-11, 05005-8 ####[facility] ([id number])[address] [address], [place] [address] Chloride [Moles/Vol] 99 mmol/L Normal 98-109 [facility] Comment on above: Performed By: #### C BCA, PINR, BMP, , 2776-11, 79712-9 ####[facility] ([id number])[address], [address], [place] [address] CO2 [Moles/Vol] 27 mmol/L Normal 22-32 [facility] Comment on above: Performed By: #### C BCA, PINR, BMP, , 2776-11, 66469-8 ####[facility] ([id number])[address] [address], [place] [address] Creatinine [Mass/Vol] 4.52 mg/dL High 0.60-1.30 [facility] Comment on above: Result Comment: METH OD TRACEABLE TO IDMS STANDARD Performed By: #### C BCA, PINR, BMP, , 2776-11, 06271-8 ####[facility] ([id number])[address] [address], [place] [address] GFR/1.73 sq M.predicted among non-blacks MDRD (S/P/Bld) [Vol rate/Area] 14 mL/min/{1.73_m2} Low >59 [facility] Comment on above: Result Comment: Repo rted eGFR is based on theCKD-EPI 2020 equation that doesnot use a race coefficient. Performed By: #### C BCA, PINR, BMP, , 2776-11, 11076-0 ####[facility] ([id number])[address] [address], [place] [address] Glucose [Mass/Vol] 99 mg/dL Normal 65-99 [facility] Comment on above: Performed By: #### C BCA, PINR, BMP, , 2776-11, 53637-0 ####[facility] ([id number])[address], [address] [place] [address] Potassium [Moles/Vol] 6.0 mmol/L High 3.5-5.0 [facility] Comment on above: Performed By: #### C BCA, PINR, BMP, , 2776-11, 64457-6 ####[facility] ([id number])[address], [address] [place] [address] Sodium [Moles/Vol] 139 mmol/L Normal 134-146 [facility] Comment on above: Performed By: #### C BCA, PINR, BMP, , 2776-11, 99557-6 ####[facility] ([id number])[address], [address], [place] [address] Urea nitrogen [Mass/Vol] 122 mg/dL High 5-27 [facility] Comment on above: Performed By: #### C BCA, PINR, BMP, , 2776-11, 22185-3 ####[facility] ([id number])[address], [address] [place] [address] BLOOD CULTUREon 08-29-2024 Bacteria identified Aer cx Nom (Bld) SPECIMEN NOTES SUBOPTIMAL VOLUME OF BLOOD COLLECTED, RESULTS MAY BE AFFECTED. CULTURE RESULTS NO GROWTH 5 DAYS Normal [facility] Comment on above: Performed By: #### 1 7928-3 ####[facility] ([id number])[address], [address] [place] [address]75 Bacteria identified Aer cx Nom (Bld) SPECIMEN NOTES SUBOPTIMAL VOLUME OF BLOOD COLLECTED, RESULTS MAY BE AFFECTED. CULTURE RESULTS NO GROWTH 5 DAYS Normal [facility] Comment on above: Performed By: #### 1 7928-3 ####[facility] ([id number])[address] [address] [place] [address] CBC AND AUTO DIFFon 08-29-20 24 Band form neutrophils/100 WBC (Bld) 2.0 % Normal [facility] Comment on above: Performed By: #### C BCA, BMP, LIVR, 04178-9, 85236-3, 2777-1 ####[facility] ([id number])[address] [address] [place] [address] Eosinophils (Bld) [#/Vol] 0.2 10*3/uL Normal 0.0-0.4 [facility] Comment on above: Performed By: #### C BCA, BMP, LIVR, 08946-7, 09965-2, 2777-1 ####[facility] ([id number])[address] [address] [place] [address] 16966 Eosinophils/100 WBC (Bld) 1.0 % Normal [facility] Comment on above: Performed By: #### C BCA, BMP, LIVR, 22378-1, 80698-2, 2777- ####[facility] ([id number])[address] [address] [place] [address] Erythrocyte distribution width (RBC) [Ratio] 18.5 % High 11.5-15.0 [facility] Comment on above: Performed By: #### C BCA, BMP, LIVR, 73173-0, 03762-7, 277- ####[facility] ([id number])[address] [address] [place] [address] Hematocrit (Bld) [Volume fraction] 21.0 % Low 39-49 [facility] Comment on above: Performed By: #### C BCA, BMP, LIVR, 19318-8, 14976-8, 2777-1 ####[facility] ([id number])[address] [place] [address] Hemoglobin (Bld) [Mass/Vol] 6.9 g/dL Critically low 13.0-17.0 [facility] Comment on above: Performed By: #### C BCA, BMP, LIVR, 50194-5, 29227-2, 2776-11 ####[facility] ([id number])[address], [address] [place] [address] Lymphocytes (Bld) [#/Vol] 0.4 10*3/uL Low 1.0-3.5 [facility] Comment on above: Performed By: #### C BCA, BMP, LIVR, 07740-8, 61543-7, 2776-11 ####[facility] ([id number])[address] [address] [place] [address] Lymphocytes/100 WBC (Bld) 2.0 % Normal [facility] Comment on above: Performed By: #### C BCA, BMP, LIVR, , 19894-6, 27705-03 ####[facility] ([id number])[address] [address] [place] [address] 21479 MCH (RBC) [Entitic mass] 28.2 pg Normal 27-34 [facility] Comment on above: Performed By: #### C BCA, BMP, LIVR, , 76606-8, 27705-03 ####[facility] ([id number])[address] [address] [place] [address] MCHC (RBC) [Mass/Vol] 33.0 g/dL Normal 32-36 [facility] Comment on above: Performed By: #### C BCA, BMP, LIVR, 00355-4, 22311-3, 27705-03 ####[facility] ([id number])[address] [address] [place] [address] 47997 MCV (RBC) [Entitic vol] 85 fL Normal 80-100 [facility] Comment on above: Performed By: #### C BCA, BMP, LIVR, 61022-6, 78894-7, 27705-03 ####[facility] ([id number])[address], [address], [place] [address] Monocytes (Bld) [#/Vol] 2.6 10*3/uL High 0-0.9 [facility] Comment on above: Performed By: #### C BCA, BMP, LIVR, 18968-9, 60748-6, 277- ####[facility] ([id number])[address], [place] [address] Monocytes/100 WBC (Bld) 12.0 % Normal [facility] Comment on above: Performed By: #### C BCA, BMP, LIVR, 84401-4, 45306-7, 27705-03 ####[facility] ([id number])[address], [address], [place] [address] Neutrophils (Bld) [#/Vol] 18.2 10*3/uL High 1.5-6.6 [facility] Comment on above: Performed By: #### C BCA, BMP, LIVR, 86886-5, 92292-6, 27705-03 ####[facility] ([id number])[address], [place] [address] Platelet mean volume (Bld) [Entitic vol] 8.8 fL Normal 7-12 [facility] Comment on above: Performed By: #### C BCA, BMP, LIVR, 88148-6, 27520-2, 277- ####[facility] ([id number])[address], [address] [place] [address] Platelets (Bld) [#/Vol] 30 10*3/uL Low 150-450 [facility] Comment on above: Performed By: #### C BCA, BMP, LIVR, 50423-8, 95859-6, 277- ####[facility] ([id number])[address], [address] [place] [address] 46442 RBC COUNT 2.46 X10E12/L Low 4.10-5.70 [facility] Comment on above: Performed By: #### C BCA, BMP, LIVR, 91053-5, 38558-9, 277- ####[facility] ([id number])[address], [address] [place] [address] 19678 SEG NEUTROPHIL 83.0 % Normal [facility] Comment on above: Performed By: #### C BCA, BMP, LIVR, 03085-0, 85506-0, 277- ####[facility] ([id number])[address], [address] [place] [address] 82221 STOMATOCYTE 1+ Abnormal NONE [facility] Comment on above: Performed By: #### C BCA, BMP, LIVR, 84530-6, 77705-0, 27705-03 ####[facility] ([id number])[address] [address] [place] [address] 12567 WBC (Bld) [#/Vol] 21.4 10*3/uL High 4.0-11.0 [facility] Comment on above: Performed By: #### C BCA, BMP, LIVR, 46704-1, 12233-6, 27705-03 ####[facility] ([id number])[address], [address] [place] [address]3871 ABSOLUTE BASOPHIL 0.1 X10E9/L Normal 0.0-0.2 [facility] Comment on above: Performed By: #### C BCA, PINR, BMP, 58643-0, 7-1, 74329-0 ####[facility] ([id number])[address], [address] [place] [address]1982 ABSOLUTE NEUTROPHIL 13.7 X10E9/L High 1.5-6.6 [facility] Comment on above: Performed By: #### C BCA, PINR, BMP, , 2776-11, 31338-5 ####[facility] ([id number])[address], [address] [place] [address] 72097 Basophils/100 WBC (Bld) 0.4 % Normal [facility] Comment on above: Performed By: #### C BCA, PINR, BMP, , 2776-11, 60733-1 ####[facility] ([id number])[address], [address] [place] [address] 25540 Eosinophils (Bld) [#/Vol] 0.1 10*3/uL Normal 0.0-0.4 [facility] Comment on above: Performed By: #### C BCA, PINR, BMP, , 2776-11, 31520-8 ####[facility] ([id number])[address] [address] [place] [address] 60219 Eosinophils/100 WBC (Bld) 0.7 % Normal [facility] Comment on above: Performed By: #### C BCA, PINR, BMP, , 2776-11, 06004-3 ####[facility] ([id number])[address], [address] [place] [address]284 Erythrocyte distribution width (RBC) [Ratio] 16.5 % High 11.5-15.0 [facility] Comment on above: Performed By: #### C BCA, PINR, BMP, , 2776-11, 65033-6 ####[facility] ([id number])[address], [address] [place] [address] 14354 Hematocrit (Bld) [Volume fraction] 19.1 % Low 39-49 [facility] Comment on above: Performed By: #### C BCA, PINR, BMP, 78506-5, 2776-11, 01969-3 ####[facility] ([id number])[address] [place] [address] 32267 Hemoglobin (Bld) [Mass/Vol] 6.1 g/dL Critically low 13.0-17.0 [facility] Comment on above: Performed By: #### C BCA, PINR, BMP, , 2776-11, 22949-3 ####[facility] ([id number])[address], [address] [place] [address]387 Lymphocytes (Bld) [#/Vol] 1.9 10*3/uL Normal 1.0-3.5 [facility] Comment on above: Performed By: #### C BCA, PINR, BMP, , 2776-11, 10768-2 ####[facility] ([id number])[address], [address] [place] [address]57[address] Lymphocytes/100 WBC (Bld) 11.1 % Normal [facility] Comment on above: Performed By: #### C BCA, PINR, BMP, , 2776-11, 72065-8 ####[facility] ([id number])[address], [address] [place] [address]979 MCH (RBC) [Entitic mass] 27.8 pg Normal 27-34 [facility] Comment on above: Performed By: #### C BCA, PINR, BMP, 28879-1, 2776-11, 86133-6 ####[facility] ([id number])[address] [address] [place] [address]005 MCHC (RBC) [Mass/Vol] 32.1 g/dL Normal 32-36 [facility] Comment on above: Performed By: #### C BCA, PINR, BMP, 79698-5, 2776-, 69517-8 ####[facility] ([id number])[address], [address] [address] MCV (RBC) [Entitic vol] 86 fL Normal 80-100 [facility] Comment on above: Performed By: #### C BCA, PINR, BMP, , 2776-11, 59298-6 ####[facility] ([id number])[address], [address], [place] [address] Monocytes (Bld) [#/Vol] 1.6 10*3/uL High 0-0.9 [facility] Comment on above: Performed By: #### C BCA, PINR, BMP, , 2776-11, 33174-5 ####[facility] ([id number])[address], [address], [place] [address] Monocytes/100 WBC (Bld) 9.2 % Normal [facility] Comment on above: Performed By: #### C BCA, PINR, BMP, , 2776-11, 68892-3 ####[facility] ([id number])[address], [address], [place] [address] Neutrophils/100 WBC (Bld) 78.6 % Normal [facility] Comment on above: Performed By: #### C BCA, PINR, BMP, , 2776-11, 70630-7 ####[facility] ([id number])[address], [address], [place] [address] OVALOCYTE 1+ Abnormal NONE [facility] Comment on above: Performed By: #### C BCA, PINR, BMP, , 2776-11, 84266-9 ####[facility] ([id number])[address], [address], [place] [address] Platelet mean volume (Bld) [Entitic vol] 10.0 fL Normal 7-12 [facility] Comment on above: Performed By: #### C BCA, PINR, BMP, , 2776-11, 59302-6 ####[facility] ([id number])[address], [address] [place] [address] 61480 Platelets (Bld) [#/Vol] 77 10*3/uL Low 150-450 [facility] Comment on above: Performed By: #### C BCA, PINR, BMP, , 2776-11, 69984-4 ####[facility] LAB ([id number])[address], [address] [place] [address] RBC COUNT 2.21 X10E12/L Low 4.10-5.70 [facility] Comment on above: Performed By: #### C BCA, PINR, BMP, , 2776-11, 30043-0 ####[facility] ([id number])[address], [address] [place] [address] 23860 WBC (Bld) [#/Vol] 17.5 10*3/uL High 4.0-11.0 [facility] Comment on above: Performed By: #### C BCA, PINR, BMP, , 2776-11, 20171-4 ####[facility] ([id number])[address], [address] [place] [address] Glucose Glucometer (BldC) [M ass/Vol]on 08-29-2024 Glucose [Mass/Vol] 145 mg/dL High 65-99 [facility] Glucose [Mass/Vol] 91 mg/dL Normal 65-99 [facility] Glucose [Mass/Vol] 174 mg/dL High 65-99 [facility] Glucose [Mass/Vol] 107 mg/dL High 65-99 [facility] HBV surface Ab IA Qnon 08-29 Anti HBs quant. <8.00 Normal [facility] Comment on above: Result Comment: Vacc inated: >=12mIU/mL, Positive (Immune)Unvaccinated: <8mIU/mL, Negative (Not Immune)8-11.99 mIU/mL: Indeterminate,(Considered Not Immune) Performed By: #### 5 193-8, 5196-1, 63166-4 ####[facility] ([id number])[address], [address], [place] [address] HBV surface Ag IA Qlon 08-29 HEPATITIS B SURF AG Negative Normal NEG [facility] Comment on above: Performed By: #### 5 193-8, 5196-1, 12895-9 ####[facility] ([id number])[address], [address] [place] [address] HCV Ab IA Qlon 08-29-2024 ANTI HCV W/PCR REFLX Non-Reactive Normal NRCT [facility] Comment on above: Result Comment: If r ecent infection suspected, recommendrepeat testing (>2 months).Lnnpba-de-injusu ratio is <0.80. Performed By: #### 5 193-8, 5196-1, 33557-1 ####[facility] ([id number])[address], [address] [place] [address]39 HGB AND HCTon 08-29-2024 Hematocrit (Bld) [Volume fraction] 19.6 % Low 39-49 [facility] Comment on above: Performed By: #### H H ####[facility] ([id number])[address], [address], [place] [address] Hemoglobin (Bld) [Mass/Vol] 6.5 g/dL Critically low 13.0-17.0 [facility] Comment on above: Performed By: #### H H ####[facility] ([id number])[address], [address] [place] [address], [place] [address] Hematocrit (Bld) [Volume fraction] 21.1 % Low 39-49 [facility] Comment on above: Performed By: #### H H ####[facility] ([id number])[address], [address], [place] [address] Hemoglobin (Bld) [Mass/Vol] 6.9 g/dL Critically low 13.0-17.0 [facility] Comment on above: Performed By: #### H H ####[facility] ([id number])[address], [address] [address] Hematocrit (Bld) [Volume fraction] 18.8 % Low 39-49 [facility] Comment on above: Performed By: #### H H ####[facility] ([id number])[address], [address] [address] Hemoglobin (Bld) [Mass/Vol] 6.1 g/dL Critically low 13.0-17.0 [facility] Comment on above: Performed By: #### H H ####[facility] ([id number])[address], [address] [address] LIVER PANELon 08-29-2024 Albumin [Mass/Vol] 4.1 g/dL Normal 3.2-5.3 [facility] Comment on above: Performed By: #### C BCA, BMP, LIVR, 45177-0, 78106-9, 2777-1 ####[facility] ([id number])[address], [address] [address] ALP [Catalytic activity/Vol] 41 U/L Normal 39-130 [facility] Comment on above: Performed By: #### C BCA, BMP, LIVR, 24650-0, 02298-5, 2777-1 ####[facility] ([id number])[address], [address], [place] [address] ALT [Catalytic activity/Vol] U/L Normal 0-40 [facility] Comment on above: Performed By: #### C BCA, BMP, LIVR, 95941-2, 38995-4, 277- ####[facility] ([id number])[address], [address], [place] [address] AST [Catalytic activity/Vol] 11 U/L Normal 0-41 [facility] Comment on above: Performed By: #### C BCA, BMP, LIVR, 17554-6, 40835-4, 277- ####[facility] ([id number])[address], [address], [place] [address] Bilirubin [Mass/Vol] 2.3 mg/dL High 0.3-1.2 [facility] Comment on above: Performed By: #### C BCA, BMP, LIVR, 74934-3, 50110-0, 2777-1 ####[facility] ([id number])[address], [address] [place] [address] Bilirubin.direct [Mass/Vol] 0.6 mg/dL High 0.0-0.4 [facility] Comment on above: Performed By: #### C BCA, BMP, LIVR, 74504-0, 16565-7, 277- ####[facility] ([id number])[address] [address] [place] [address] 30495 Protein [Mass/Vol] 6.0 g/dL Normal 6.0-8.0 [facility] Comment on above: Performed By: #### C BCA, BMP, LIVR, 15352-9, 36983-2, 277-1 ####[facility] ([id number])[address], [address], [place] [address] Lactate (P oc) [Moles/Vol]o n 08-29-2024 LACTATE W/REFLEX 1.5 mmol/L Normal 0.4-2.0 [facility] Comment on above: Result Comment: Resu lt did not trigger repeat Lactate,re-order if needed. Performed By: #### 3 2132-1 ####[facility] ([id number])[address], [address], [place] [address] LACTATE W/REFLEX 1.0 mmol/L Normal 0.4-2.0 [facility] Comment on above: Result Comment: Resu lt did not trigger repeat Lactate,re-order if needed. Performed By: #### 3 2132-1 ####[facility] ([id number])[address], [address], [place] [address] Lactate [Moles/Vol] 1.9 mmol/L Normal 0.4-2.0 [facility] Comment on above: Performed By: #### 3 2132-1 ####[facility] ([id number])[address], [address], [place] [address] LACTATE W/REFLEX 2.2 mmol/L High 0.4-2.0 [facility] Comment on above: Performed By: #### C BCA, PINR, BMP, 85352-9, 277-1, 36466-6 ####[facility] ([id number])[address], [address], [place] [address] MAGNESIUMon 08-29-2024 Magnesium [Mass/Vol] 1.7 mg/dL Low 1.8-2.6 [facility] Comment on above: Performed By: #### C BCA, BMP, LIVR, 32104-7, 90712-4, 277-1 ####[facility] ([id number])[address], [address], [place] [address] Magnesium [Mass/Vol] 2.0 mg/dL Normal 1.8-2.6 [facility] Comment on above: Performed By: #### C BCA, PINR, BMP, 96858-0, 2776-1, 92484-2 ####[facility] ([id number])[address], [address], [place] [address] PHOSPHORUSon 08-29-2024 Phosphate [Mass/Vol] 3.2 mg/dL Normal 2.4-4.9 [facility] Comment on above: Performed By: #### C BCA, BMP, LIVR, , 09514-8, 277-1 ####[facility] ([id number])[address], [address], [place] [address] Phosphate [Mass/Vol] 5.4 mg/dL High 2.4-4.9 [facility] Comment on above: Performed By: #### C BCA, PINR, BMP, , 2776-11, 73933-4 ####[facility] ([id number])[address], [address], [place] [address] POTASSIUMon 08-29-2024 Potassium [Moles/Vol] 5.3 mmol/L High 3.5-5.0 [facility] Comment on above: Performed By: #### 2 823-3 ####[facility] ([id number])[address], [address], [place] [address] PROTIME AND INRon 08-29-2024 INR Coag (PPP) [Relative time] 1.9 {INR} High 0.8-1.1 [facility] Comment on above: Performed By: #### C BCA, PINR, BMP, , 2776-11, 61743-0 ####[facility] ([id number])[address], [address], [place] [address] PT Coag (PPP) [Time] 21.7 s High 9.8-13.2 [facility] Comment on above: Performed By: #### C BCA, PINR, BMP, , 2776-11, 06236-3 ####[facility] ([id number])[address], [address], [place] [address] Procalcitonin IA [Mass/Vol]o n 08-29-2024 PROCALCITONIN 4.41 ng/mL High <0.05 [facility] Comment on above: Result Comment: NOTE <0.50 ng/mL - Low risk of severe sepsis and/or septic shock.<2.00 ng/mL - Recommend retesting within 6-24 hours.>2.00 ng/mL - High risk of sepsis and/or septic shock. Performed By: #### C BCA, BMP, LIVR, 85105-1, 97831-5, 2777-1 ####[facility] ([id number])[address], [place] [address] URINALYSISon 08-29-2024 Bilirubin Ql (U) Negative Normal NEG [facility] Comment on above: Performed By: #### U A ####[facility] ([id number])[address], [address], [place] [address] BLOOD/HGB Large Abnormal NEG [facility] Comment on above: Performed By: #### U A ####[facility] ([id number])[address], [address], [place] [address] Color (U) YELLOW Normal YELLOW [facility] Comment on above: Performed By: #### U A ####[facility] ([id number])[address], [address], [place] [address] Glucose Ql (U) Negative Normal NEG [facility] Comment on above: Performed By: #### U A ####[facility] ([id number])[address] [address] Ketones Ql (U) Negative Normal NEG [facility] Comment on above: Performed By: #### U A ####[facility] ([id number])[address] [address] Leukocyte esterase Test strip Ql (U) Large Abnormal NEG [facility] Comment on above: Performed By: #### U A ####[facility] ([id number])[address], [place] [address] MUCOUS PRESENT Abnormal NONE [facility] Comment on above: Performed By: #### U A ####[facility] ([id number])[address] [address], [place] [address] Nitrite Ql (U) Negative Normal NEG [facility] Comment on above: Performed By: #### U A ####[facility] ([id number])[address], [place] [address] pH (U) 7.0 [pH] Normal 5.0-8.5 [facility] Comment on above: Performed By: #### U A ####[facility] ([id number])[address] [address] [place] [address] Protein Ql (U) >=300 Abnormal NEG [facility] Comment on above: Performed By: #### U A ####[facility] ([id number])[address] [address] [place] [address], [place] [address] R.B.CELLS 180 /hpf High 0-5 [facility] Comment on above: Performed By: #### U A ####[facility] ([id number])[address] [address], [place] [address] Specific gravity (U) [Rel density] 1.010 Normal 1.003-1.035 [facility] Comment on above: Performed By: #### U A ####[facility] ([id number])[address] [address] [place] [address] SQUAMOUS EPITHELIUM >27 High 0-5 [facility] Comment on above: Performed By: #### U A ####[facility] ([id number])[address] [address], [place] [address] TRANSITIONAL EPITH 3 /hpf High 0 [facility] Comment on above: Performed By: #### U A ####[facility] ([id number])[address] [address] [place] [address] TURBIDITY CLOUDY Abnormal CLEAR [facility] Comment on above: Performed By: #### U A ####[facility] ([id number])[address] [address] [place] [address] Urobilinogen Qn (U) 0.2 {Robbie'U}/dL Normal <1.1 [facility] Comment on above: Performed By: #### U A ####[facility] ([id number])[address], [address] [place] [address] W.B.CELLS >720 High 0-5 [facility] Comment on above: Performed By: #### U A ####[facility] ([id number])[address] [address] WBC CLUMPS MANY Abnormal NONE [facility] Comment on above: Performed By: #### U A ####[facility] ([id number])[address] [address] URINE CULTUREon 08-29-2024 Bacteria identified Cx Nom (U) SPECIMEN NOTES URINE RECEIVED WITHOUT PRESERVATIVE CULTURE RESULTS 50-100,000 ORGANISMS/ML NORMAL UROGENITAL MAGALYS Normal [facility] Comment on above: Performed By: #### 6 30-4 ####[facility] ([id number])[address] [address] [place] [address]27 XR CHEST 1 VWon 08-29-2024 XR CHEST 1 VW Normal [facility] BASIC METABOLIC PANLon 08-28 Anion gap [Moles/Vol] 16 mmol/L High 5-15 [facility] Comment on above: Performed By: #### B , 03458-3, 2777-1 ####[facility] ([id number])[address] [address] [address] Calcium [Mass/Vol] 9.0 mg/dL Normal 8.5-10.5 [facility] Comment on above: Performed By: #### Suhas CONTRERAS, , 2776-11 ####[facility] ([id number])[address], [place] [address] Chloride [Moles/Vol] 101 mmol/L Normal 98-109 [facility] Comment on above: Performed By: #### Suhas CONTRERAS, , 2776-11 ####[facility] ([id number])[address] [address], [place] [address] CO2 [Moles/Vol] 28 mmol/L Normal 22-32 [facility] Comment on above: Performed By: #### Suhas CONTRERAS, , 2776-11 ####[facility] ([id number])[address] [address], [place] [address] Creatinine [Mass/Vol] 4.28 mg/dL High 0.60-1.30 [facility] Comment on above: Result Comment: METH OD TRACEABLE TO IDMS STANDARD Performed By: #### Suhas CONTRERAS, , 2776-11 ####[facility] ([id number])[address] [address], [place] [address] GFR/1.73 sq M.predicted among non-blacks MDRD (S/P/Bld) [Vol rate/Area] 15 mL/min/{1.73_m2} Low >59 [facility] Comment on above: Result Comment: Repo rted eGFR is based on theCKD-EPI 2020 equation that doesnot use a race coefficient. Performed By: #### B DIANE, , 2776-11 ####[facility] ([id number])[address] [address], [place] [address] Glucose [Mass/Vol] 119 mg/dL High 65-99 [facility] Comment on above: Performed By: #### B DIANE, , 2776-11 ####[facility] ([id number])[address], [place] [address] Potassium [Moles/Vol] 5.3 mmol/L High 3.5-5.0 [facility] Comment on above: Performed By: #### B DIANE, , 2776-11 ####[facility] ([id number])[address], [place] [address] Sodium [Moles/Vol] 145 mmol/L Normal 134-146 [facility] Comment on above: Performed By: #### Suhas CONTRERAS, , 2776-11 ####[facility] ([id number])[address], [place] [address] Urea nitrogen [Mass/Vol] 109 mg/dL High 5-27 [facility] Comment on above: Performed By: #### B DIANE, , 2776-11 ####[facility] ([id number])[address] [address] CBC AND AUTO DIFFon 10-26-20 24 ABSOLUTE BASOPHIL 0.1 X10E9/L Normal 0.0-0.2 [facility] Comment on above: Performed By: #### C BCA ####[facility] ([id number])[address], [place] [address] ABSOLUTE NEUTROPHIL 8.4 X10E9/L High 1.5-6.6 [facility] Comment on above: Performed By: #### C BCA ####[facility] ([id number])[address], [place] [address] Basophils/100 WBC (Bld) 0.5 % Normal [facility] Comment on above: Performed By: #### C BCA ####[facility] ([id number])[address] [address], [place] [address] Eosinophils (Bld) [#/Vol] 0.2 10*3/uL Normal 0.0-0.4 [facility] Comment on above: Performed By: #### C BCA ####[facility] ([id number])[address] [address], [place] [address] Eosinophils/100 WBC (Bld) 2.0 % Normal [facility] Comment on above: Performed By: #### C BCA ####[facility] ([id number])[address] [address], [place] [address] Erythrocyte distribution width (RBC) [Ratio] 17.4 % High 11.5-15.0 [facility] Comment on above: Performed By: #### C BCA ####[facility] ([id number])[address] [address], [place] [address] Hematocrit (Bld) [Volume fraction] 17.6 % Low 39-49 [facility] Comment on above: Performed By: #### C BCA ####[facility] ([id number])[address] [address], [place] [address] Hemoglobin (Bld) [Mass/Vol] 5.7 g/dL Critically low 13.0-17.0 [facility] Comment on above: Performed By: #### C BCA ####[facility] ([id number])[address] [address], [place] [address] HYPOCHROMIA 1+ Abnormal NONE [facility] Comment on above: Performed By: #### C BCA ####[facility] ([id number])[address] [address], [place] [address] Lymphocytes (Bld) [#/Vol] 1.5 10*3/uL Normal 1.0-3.5 [facility] Comment on above: Performed By: #### C BCA ####[facility] ([id number])[address], [place] [address] Lymphocytes/100 WBC (Bld) 12.4 % Normal [facility] Comment on above: Performed By: #### C BCA ####[facility] ([id number])[address], [place] [address] MCH (RBC) [Entitic mass] 28.0 pg Normal 27-34 [facility] Comment on above: Performed By: #### C BCA ####[facility] ([id number])[address], [place] [address] MCHC (RBC) [Mass/Vol] 32.5 g/dL Normal 32-36 [facility] Comment on above: Performed By: #### C BCA ####[facility] ([id number])[address] [address] MCV (RBC) [Entitic vol] 86 fL Normal 80-100 [facility] Comment on above: Performed By: #### C BCA ####[facility] ([id number])[address], [place] [address] Monocytes (Bld) [#/Vol] 1.6 10*3/uL High 0-0.9 [facility] Comment on above: Performed By: #### C BCA ####[facility] ([id number])[address], [place] [address] Monocytes/100 WBC (Bld) 13.6 % Normal [facility] Comment on above: Performed By: #### C BCA ####[facility] ([id number])[address], [place] [address] Neutrophils/100 WBC (Bld) 71.5 % Normal [facility] Comment on above: Performed By: #### C BCA ####[facility] ([id number])[address] [address] [address] OVALOCYTE 1+ Abnormal NONE [facility] Comment on above: Performed By: #### C BCA ####[facility] ([id number])[address], [place] [address] Platelet mean volume (Bld) [Entitic vol] 7.7 fL Normal 7-12 [facility] Comment on above: Performed By: #### C BCA ####[facility] ([id number])[address] [address], [place] [address] Platelets (Bld) [#/Vol] 48 10*3/uL Low 150-450 [facility] Comment on above: Performed By: #### C BCA ####[facility] ([id number])[address] [address], [place] [address] RBC COUNT 2.05 X10E12/L Low 4.10-5.70 [facility] Comment on above: Performed By: #### C BCA ####[facility] ([id number])[address] [address], [place] [address] WBC (Bld) [#/Vol] 11.7 10*3/uL High 4.0-11.0 [facility] Comment on above: Performed By: #### C BCA ####[facility] ([id number])[address] [address], [place] [address] COMPLETE BLOOD COUNTon 08-28 Erythrocyte distribution width (RBC) [Ratio] 17.5 % High 11.5-15.0 [facility] Comment on above: Performed By: #### C BC ####[facility] ([id number])[address], [place] [address] Hematocrit (Bld) [Volume fraction] 21.4 % Low 39-49 [facility] Comment on above: Performed By: #### C BC ####[facility] ([id number])[address], [place] [address] Hemoglobin (Bld) [Mass/Vol] 6.9 g/dL Critically low 13.0-17.0 [facility] Comment on above: Performed By: #### C BC ####[facility] ([id number])[address], [place] [address] MCH (RBC) [Entitic mass] 28.0 pg Normal 27-34 [facility] Comment on above: Performed By: #### C BC ####[facility] ([id number])[address] [address], [place] [address] MCHC (RBC) [Mass/Vol] 32.2 g/dL Normal 32-36 [facility] Comment on above: Performed By: #### C BC ####[facility] ([id number])[address], [place] [address] MCV (RBC) [Entitic vol] 87 fL Normal 80-100 [facility] Comment on above: Performed By: #### C BC ####[facility] ([id number])[address] [address], [place] [address] Platelet mean volume (Bld) [Entitic vol] 8.2 fL Normal 7-12 [facility] Comment on above: Performed By: #### C BC ####[facility] ([id number])[address] [address] [address] Platelets (Bld) [#/Vol] 55 10*3/uL Low 150-450 [facility] Comment on above: Performed By: #### C BC ####[facility] [facility] ([id number])[address] [place] [address] [place] [address] RBC COUNT 2.46 X10E12/L Low 4.10-5.70 [facility] Comment on above: Performed By: #### C BC ####[facility] ([id number])[address] [place] [address] WBC (Bld) [#/Vol] 16.1 10*3/uL High 4.0-11.0 [facility] Comment on above: Performed By: #### C BC ####[facility] ([id number])[address] [place] [address] ABDOMEN AND PELVIS WO CON Ton 08-28-2024 CT ABDOMEN AND PELVIS WO CONT Normal [facility] Clinical Pathology Blood Sme ar Reviewon 08-28-2024 Clinical Pathology Blood Smear Review Normal [facility] Comment on above: Result Comment: [facility] [employer] [facility] [address] [place] [address] Clinical Pathology ReportPatient Name:SHAHEEN PRICE:1960 (Age: 63)Gender:MTaken:4Reported:08/30/2024hysician(s):CAT BETH DO ([phone])Copy To: Rec. #:[id number]: #[id number] Pathologic DiagnosisPERIPHERAL BLOOD:- Normochromic, normocytic anemia-Neutrophilia, favor reactive changes; otherwise no significant abnormalities of leukocytes-Severe thrombocytopenia; morphologically no significant abnormalities of plateletsCOMMENT:If other causes are excluded, features are most consistent with anemia of chronic disease / systemic illness, such as an infection. Clinical correlation is recommended.MICROSCOPIC:The red cells are decreased in number and are normochromic and normocytic with mild anisopoikilocytosis and increased polychromasia.Leukocytes are increased in number, consisting predominantly of segmented neutrophils with fewer numbers of lymphocytes and monocytes. Platelets are decreased in number and normal in morphology. Report Electronically Signed Out4Rmarah Norman MDInterpretation performed at [facility], [address] [place], [place] [address], License number: [id number].Clinical QbxhqzdO74.624, L98.422, N39.0, I47.20. BLOOD SMEAR EVALUATIONCB (08/28/2024 0455): WBC = 11.7 X10E9/L; HGB = 5.7 g/dL; HCT = 17.6%; MCV = 86 fL; PLT = 48 X10E9/LSpecimen(s) Received Blood Smear ReviewFee Codes(s):1; 61172 FERRITINon 08-28-2024 Ferritin [Mass/Vol] 645 ng/mL High 24-336 [facility] Comment on above: Performed By: #### 4 679-7, 2532-0, 2276-4, 2283-8, 9 ####[facility] ([id number])[address] [place], [place] [address] Fibrinogen Coagulation.deriv ed (PPP) [Mass/Vol]on 08-28-2024 FIBRINOGEN 344 mg/dL Normal 190-480 [facility] Comment on above: Performed By: #### 2 532-0, 61511-6, 73621-2, PINR ####[facility] ([id number])[facility] [address] [address] Folate [Mass/Vol]on 08-28-20 24 FOLIC ACID 5.4 ng/mL Low >5.8 [facility] Comment on above: Result Comment: NEW REFERENCE RANGE Performed By: #### 4 679-7, 2532-0, 2276-4, 228-8, 2132-07 ####[facility] ([id number])[address] [address] HGB AND HCTon 08-28-2024 Hematocrit (Bld) [Volume fraction] 22.6 % Low 39-49 [facility] Comment on above: Performed By: #### H H ####[facility] ([id number])[address], [address] [place] [address], [place] [address] Hemoglobin (Bld) [Mass/Vol] 7.3 g/dL Low 13.0-17.0 [facility] Comment on above: Performed By: #### H H ####[facility] ([id number])[address], [address] [place] [address] Haptoglobin Nephelometry [Ma ss/Vol]on 08-28-2024 HAPTOGLOBIN 125 mg/dL Normal 32-228 [facility] Comment on above: Performed By: #### 2 532-0, 98654-3, 81276-1, PINR ####[facility] ([id number])[address], [address] [place] [address], [place] [address] HAPTOGLOBIN 160 mg/dL Normal 32-228 [facility] Comment on above: Performed By: #### 4 6127-7, PINR ####[facility] ([id number])[address], [address] [place] [address], [place] [address] LDH [Catalytic activity/Vol] on 08-28-2024 LDH 148 U/L Normal 100-235 [facility] Comment on above: Performed By: #### 2 532-0, 74382-3, 70444-4, PINR ####[facility] ([id number])[address], [address] [place] [address], [place] [address] LDH 139 U/L Normal 100-235 [facility] Comment on above: Performed By: #### 4 679-7, 2532-0, 2276-4, 4-8, 2131-9 ####[facility] ([id number])[address], [address] [place] [address], [place] [address] Lactate (P oc) [Moles/Vol]o n 08-28-2024 Lactate [Moles/Vol] 2.5 mmol/L High 0.4-2.0 [facility] Comment on above: Performed By: #### 3 2132-1 ####[facility] ([id number])[address], [address], [place] [address] LACTATE W/REFLEX 3.2 mmol/L High 0.4-2.0 [facility] Comment on above: Performed By: #### 3 2132-1 ####[facility] ([id number])[address], [address], [place] [address] LACTATE W/REFLEX 4.1 mmol/L Critically high 0.4-2.0 [facility] Comment on above: Performed By: #### 3 2132-1 ####[facility] ([id number])[address], [address], [place] [address] LACTATE W/REFLEX 2.0 mmol/L Normal 0.4-2.0 [facility] Comment on above: Result Comment: Resu lt did not trigger repeat Lactate,re-order if needed. Performed By: #### 3 2132-1 ####[facility] ([id number])[address], [address], [place] [address] Lactate [Moles/Vol] 2.2 mmol/L High 0.4-2.0 [facility] Comment on above: Performed By: #### 3 2132-1 ####[facility] ([id number])[address], [address], [place] [address] MAGNESIUMon 08-28-2024 Magnesium [Mass/Vol] 2.2 mg/dL Normal 1.8-2.6 [facility] [place] [facility] Comment on above: Performed By: #### [place], [address]-5, 2777-1 ####[facility] ([id number])[address], [address], [place] [address] PHOSPHORUSon 10-26-2024 Phosphate [Mass/Vol] 4.5 mg/dL Normal 2.4-4.9 [facility] [place] [facility] Comment on above: Performed By: #### B MP, 71368-8, 2777-1 ####[facility] ([id number])[address], [address] [place] [address] PROTIME AND INRon 08-28-2024 INR Coag (PPP) [Relative time] 3.6 {INR} High 0.8-1.1 [facility] Comment on above: Performed By: #### 2 532-0, 41695-9, 10081-5, PINR ####[facility] ([id number])[address], [address] [place] [address] PT Coag (PPP) [Time] 39.9 s High 9.8-13.2 [facility] Comment on above: Performed By: #### 2 532-0, 71542-5, 54921-0, PINR ####[facility] ([id number])[address] [address] [place] [address] INR Coag (PPP) [Relative time] 3.3 {INR} High 0.8-1.1 [facility] Comment on above: Performed By: #### 4 6127-7, PINR ####[facility] ([id number])[address] [address] [place] [address] PT Coag (PPP) [Time] 36.8 s High 9.8-13.2 [facility] Comment on above: Performed By: #### 4 6127-7, PINR ####[facility] ([id number])[address] comment (Bld) [Interp]on 08-28-2024 STAFF REVIEW NOTE Normal [facility] Comment on above: Result Comment: [facility] [place], [place] [address] Clinical Pathology ReportPatient Name:SHAHEEN PRICE:1960 (Age:63)Gender:MTaken:08/28/2024eported:08/30/2024hysician(s):Ramon ELIZABETH CHAKRABORTY DO ([phone])Copy To: Rec.#:[id number]: #[id number] Pathologic DiagnosisPERIPHERAL BLOOD:- Normochromic, normocytic anemia-Neutrophilia, favor reactive changes; otherwise no significantabnormalities of leukocytes-Severe thrombocytopenia; morphologically no significantabnormalities of plateletsCOMMENT:If other causes are excluded, features are most consistent withanemia of chronic disease / systemic illness, such as an infection.Clinical correlation is recommended.MICROSCOPIC:The red cells are decreased in number and are normochromic andnormocytic with mild anisopoikilocytosis and increased polychromasia.Leukocytes are increased in number, consisting predominantly ofsegmented neutrophils with fewer numbers of lymphocytes andmonocytes. Platelets are decreased in number and normal inmorphology. Report Electronically Signed Out08/30/2024marah Norman MDInterpretation performed at [facility], [address] [place] [address], License number: [id number].Clinical SwkpufoT87.624, L98.422, N39.0, I47.20. BLOOD SMEAR EVALUATIONCBC (08/28/2024 0455): WBC = 11.7 X10E9/L; HGB = 5.7 g/dL; HCT =17.6%; MCV = 86 fL; PLT = 48 X10E9/LSpecimen(s) ReceivedBlood Smear ReviewFee Codes(s):1; 322[address] Performed By: #### 4 679-7, 2532-0, 2276-4, 2284-8, 2132-9 ####[facility] ([id number])[address] [place] [address], [address] [place] [address] Reticulocytes/100 RBC (Bld)o n 10-26-2024 RETICULOCYTE COUNT 0.8 % Normal 0.4-2.2 [facility] Comment on above: Performed By: #### 4 679-7, 2532-0, 6-4, 2283-8, 2132-07 ####[facility] ([id number])[address], [address], [place] [address] VITAMIN B12on 08-28-2024 Cobalamin (Vitamin B12) [Mass/Vol] 171 pg/mL Low 180-914 [facility] Comment on above: Performed By: #### 4 679-7, 2-0, 2275-4, 8, 2132-07 ####[facility] ([id number])[address], [address], [place] [address] BASIC METABOLIC PANLon 08-27 Anion gap [Moles/Vol] 11 mmol/L Normal 5-15 [facility] Comment on above: Performed By: #### B MP, LIVR, , 2776-11, CBCA ####[facility] ([id number])[address], [address], [place] [address] Calcium [Mass/Vol] 8.9 mg/dL Normal 8.5-10.5 [facility] Comment on above: Performed By: #### B MP, LIVR, , 2776-11, CBCA ####[facility] ([id number])[address], [address], [place] [address] Chloride [Moles/Vol] 95 mmol/L Low 98-109 [facility] Comment on above: Performed By: #### B MP, LIVR, , 2776-11, CBCA ####[facility] ([id number])[address], [address], [place] [address] CO2 [Moles/Vol] 35 mmol/L High 22-32 [facility] Comment on above: Performed By: #### B DIANE, LIVR, , 2776-11, CBCA ####[facility] ([id number])[address], [address], [place] [address] Creatinine [Mass/Vol] 3.85 mg/dL High 0.60-1.30 [facility] Comment on above: Result Comment: METH OD TRACEABLE TO IDMS STANDARD Performed By: #### B DIANE, LIVR, , 2776-11, CBCA ####[facility] ([id number])[address], [address], [place] [address] GFR/1.73 sq M.predicted among non-blacks MDRD (S/P/Bld) [Vol rate/Area] 17 mL/min/{1.73_m2} Low >59 [facility] Comment on above: Result Comment: Repo rted eGFR is based on theCKD-EPI 2020 equation that doesnot use a race coefficient. Performed By: #### B DIANE, LIVGilda, , 2776-11, CBCA ####[facility] ([id number])[address], [address], [place] [address] Glucose [Mass/Vol] 106 mg/dL High 65-99 [facility] Comment on above: Performed By: #### B DIANE, LIVGilda, , 2776-11, CBCA ####[facility] ([id number])[address], [address], [place] [address] Potassium [Moles/Vol] 5.0 mmol/L Normal 3.5-5.0 [facility] Comment on above: Performed By: #### B DIANE, LIVR, , 2776-11, CBCA ####[facility] ([id number])[address], [address], [place] [address] Sodium [Moles/Vol] 141 mmol/L Normal 134-146 [facility] Comment on above: Performed By: #### B DIANE, LIVR, , 2776-11, CBCA ####[facility] ([id number])[address], [address], [place] [address] Urea nitrogen [Mass/Vol] 83 mg/dL High 5-27 [facility] Comment on above: Performed By: #### B DIANE, LIVR, , 2776-11, CBCA ####[facility] ([id number])[address], [address], [place] [address] BLOOD CULTUREon 08-27-2024 Bacteria identified Aer cx Nom (Bld) CULTURE RESULTS NO GROWTH 5 DAYS Normal [facility] Bacteria identified Aer cx Nom (Bld) CULTURE RESULTS NO GROWTH 5 DAYS Normal [facility] CBC AND AUTO DIFFon 08-27-20 ABSOLUTE BASOPHIL 0.0 X10E9/L Normal 0.0-0.2 [facility] Comment on above: Performed By: #### B IDANE, LIVR, , 2776-11, CBCA ####[facility] ([id number])[address], [address] [place] [address] ABSOLUTE NEUTROPHIL 9.5 X10E9/L High 1.5-6.6 [facility] Comment on above: Performed By: #### B DIANE, LIVR, , 2776-11, CBCA ####[facility] ([id number])[address], [address], [place] [address] Basophils/100 WBC (Bld) 0.2 % Normal [facility] Comment on above: Performed By: #### B DIANE, LIVR, , 2776-11, CBCA ####[facility] ([id number])[address], [address], [place] [address] Eosinophils (Bld) [#/Vol] 0.1 10*3/uL Normal 0.0-0.4 [facility] Comment on above: Performed By: #### B DIANE, LIVR, , 2776-11, CBCA ####[facility] ([id number])[address] [address] [place] [address] Eosinophils/100 WBC (Bld) 0.6 % Normal [facility] Comment on above: Performed By: #### B DIANE, LIVR, , 2776-11, CBCA ####[facility] ([id number])[address] [address] Erythrocyte distribution width (RBC) [Ratio] 17.3 % High 11.5-15.0 [facility] Comment on above: Performed By: #### B DIANE, LIVR, , 2776-11, CBCA ####[facility] ([id number])[address] [address] [place] [address] Hematocrit (Bld) [Volume fraction] 24.7 % Low 39-49 [facility] Comment on above: Performed By: #### B DIANE, LIVR, , 2776-11, CBCA ####[facility] ([id number])[address] [address] Hemoglobin (Bld) [Mass/Vol] 8.0 g/dL Low 13.0-17.0 [facility] Comment on above: Performed By: #### B MP, LIVR, , 2776-11, CBCA ####[facility] ([id number])[address] [address] Lymphocytes (Bld) [#/Vol] 0.9 10*3/uL Low 1.0-3.5 [facility] Comment on above: Performed By: #### B DIANE, LIVR, , 2776-11, CBCA ####[facility] ([id number])[address], [address], [place] [address] Lymphocytes/100 WBC (Bld) 7.8 % Normal [facility] Comment on above: Performed By: #### B DIANE, LIVR, , 2776-11, CBCA ####[facility] ([id number])[address], [address] [place] [address] MCH (RBC) [Entitic mass] 27.8 pg Normal 27-34 [facility] Comment on above: Performed By: #### B DIANE, LIVR, , 2776-11, CBCA ####[facility] ([id number])[address], [address] [place] [address] MCHC (RBC) [Mass/Vol] 32.3 g/dL Normal 32-36 [facility] Comment on above: Performed By: #### B DIANE, LIVR, , 2776-11, CBCA ####[facility] ([id number])[address], [address] [place] [address] MCV (RBC) [Entitic vol] 86 fL Normal 80-100 [facility] Comment on above: Performed By: #### B DIANE, LIVR, , 2776-11, CBCA ####[facility] ([id number])[address], [address] [place] [address] Monocytes (Bld) [#/Vol] 1.1 10*3/uL High 0-0.9 [facility] Comment on above: Performed By: #### B MP, LIVR, , 2776-11, CBCA ####[facility] ([id number])[address], [address], [place] [address] Monocytes/100 WBC (Bld) 9.7 % Normal [facility] Comment on above: Performed By: #### B MP, LIVR, , 2776-11, CBCA ####[facility] ([id number])[address] [address] [place] [address] Neutrophils/100 WBC (Bld) 81.7 % Normal [facility] Comment on above: Performed By: #### B MP, LIVR, , 2776-11, CBCA ####[facility] ([id number])[address] [address] [place] [address] Platelet mean volume (Bld) [Entitic vol] 7.3 fL Normal 7-12 [facility] Comment on above: Performed By: #### B MP, LIVR, , 2776-11, CBCA ####[facility] ([id number])[address] [address] [place] [address] Platelets (Bld) [#/Vol] 62 10*3/uL Low 150-450 [facility] Comment on above: Performed By: #### B MP, LIVR, , 2776-11, CBCA ####[facility] ([id number])[address] [address] [place] [address], [place] [address] RBC COUNT 2.86 X10E12/L Low 4.10-5.70 [facility] Comment on above: Performed By: #### B MP, LIVR, , 2776-11, CBCA ####[facility] ([id number])[address] [address] [place] [address], [place] [address] WBC (Bld) [#/Vol] 11.7 10*3/uL High 4.0-11.0 [facility] Comment on above: Performed By: #### B MP, LIVR, , 2776-11, CBCA ####[facility] ([id number])[address] [address], [place] [address] LIVER PANELon 08-27-2024 Albumin [Mass/Vol] 3.7 g/dL Normal 3.2-5.3 [facility] Comment on above: Performed By: #### B MP, LIVR, , 2776-11, CBCA ####[facility] ([id number])[address], [address], [place] [address] ALP [Catalytic activity/Vol] 52 U/L Normal 39-130 [facility] Comment on above: Performed By: #### B MP, LIVR, , 2776-11, CBCA ####[facility] ([id number])[address], [address], [place] [address] ALT [Catalytic activity/Vol] 3 U/L Normal 0-40 [facility] Comment on above: Performed By: #### B MP, LIVR, , 2776-11, CBCA ####[facility] ([id number])[address], [address], [place] [address] AST [Catalytic activity/Vol] 15 U/L Normal 0-41 [facility] Comment on above: Performed By: #### B MP, LIVR, , 2776-11, CBCA ####[facility] ([id number])[address], [place] [address] Bilirubin [Mass/Vol] 0.9 mg/dL Normal 0.3-1.2 [facility] [place] [facility] Comment on above: Performed By: #### B MP, LIVR, , 2776-11, CBCA ####[facility] ([id number])[address], [address], [place] [address] Bilirubin.direct [Mass/Vol] 0.2 mg/dL Normal 0.0-0.4 [facility] Comment on above: Performed By: #### B MP, LIVR, , 2777-1, CBCA ####[facility] ([id number])[address], [place] [address] Protein [Mass/Vol] 6.5 g/dL Normal 6.0-8.0 [facility] Comment on above: Performed By: #### B MP, LIVR, , 2776-11, CBCA ####[facility] ([id number])[address], [address], [place] [address] Lactate (P oc) [Moles/Vol]o n 08-27-2024 LACTATE W/REFLEX 2.3 mmol/L High 0.4-2.0 [facility] Comment on above: Performed By: #### 3 2132-11 ####[facility] ([id number])[address], [place] [address] MAGNESIUMon 08-27-2024 Magnesium [Mass/Vol] 2.4 mg/dL Normal 1.8-2.6 [facility] Comment on above: Performed By: #### B MP, LIVR, , 2776-11, CBCA ####[facility] ([id number])[address], [place] [address] PHOSPHORUSon 08-27-2024 Phosphate [Mass/Vol] 3.7 mg/dL Normal 2.4-4.9 [facility] Comment on above: Performed By: #### B MP, LIVR, , 2776-11, CBCA ####[facility] ([id number])[address] [address] XR CHEST 1 VWon 08-27-2024 XR CHEST 1 VW Normal [facility] BASIC METABOLIC PANLon 08-26 Anion gap [Moles/Vol] 13 mmol/L Normal 5-15 [facility] Comment on above: Performed By: #### C BCA, BMP, , 2776-11 ####[facility] ([id number])[address], [place] [address] Calcium [Mass/Vol] 8.3 mg/dL Low 8.5-10.5 [facility] Comment on above: Performed By: #### C BCA, BMP, , 2776-11 ####[facility] ([id number])[address], [address], [place] [address] Chloride [Moles/Vol] 97 mmol/L Low 98-109 [facility] Comment on above: Performed By: #### C BCA, BMP, , 2776-11 ####[facility] ([id number])[address] [address], [place] [address] CO2 [Moles/Vol] 34 mmol/L High 22-32 [facility] Comment on above: Performed By: #### C BCA, BMP, , 2776-11 ####[facility] ([id number])[address] [address], [place] [address] Creatinine [Mass/Vol] 3.75 mg/dL High 0.60-1.30 [facility] Comment on above: Result Comment: METH OD TRACEABLE TO IDMS STANDARD Performed By: #### C BCA, BMP, , 2776-11 ####[facility] ([id number])[address] [address] [place] [id number] GFR/1.73 sq M.predicted among non-blacks MDRD (S/P/Bld) [Vol rate/Area] 17 mL/min/{1.73_m2} Low >59 [facility] Comment on above: Result Comment: Repo rted eGFR is based on theCKD-EPI 2020 equation that doesnot use a race coefficient. Performed By: #### C BCA, BMP, , 2776-11 ####[facility] ([id number])[address], [address], [place] [address] Glucose [Mass/Vol] 102 mg/dL High 65-99 [facility] Comment on above: Performed By: #### C KERRY, BMP, , 2776-11 ####[facility] ([id number])[address], [place] [address] Potassium [Moles/Vol] 3.7 mmol/L Normal 3.5-5.0 [facility] Comment on above: Performed By: #### C BCA, BMP, , 2776-11 ####[facility] ([id number])[address], [address], [place] [address] Sodium [Moles/Vol] 144 mmol/L Normal 134-146 [facility] Comment on above: Performed By: #### C KERRY, BMP, , 2776-11 ####[facility] [facility] ([id number])[address], [address], [place] [address] Urea nitrogen [Mass/Vol] 67 mg/dL High 5-27 [facility] Comment on above: Performed By: #### C KERRY, BMP, , 2776-11 ####[facility] ([id number])[address], [address], [place] [address] CBC AND AUTO DIFFon 10-24-20 24 ABSOLUTE BASOPHIL 0.0 X10E9/L Normal 0.0-0.2 [facility] Comment on above: Performed By: #### C BCA, BMP, , 2776-11 ####[facility] ([id number])[address], [address], [place] [address] ABSOLUTE NEUTROPHIL 4.6 X10E9/L Normal 1.5-6.6 [facility] Comment on above: Performed By: #### C BCA, BMP, , 2776-11 ####[facility] ([id number])[address], [address], [place] [address] Basophils/100 WBC (Bld) 0.1 % Normal [facility] Comment on above: Performed By: #### C KERRY, BMP, , 2776-11 ####[facility] ([id number])[address] [address], [place] [address] Eosinophils (Bld) [#/Vol] 0.1 10*3/uL Normal 0.0-0.4 [facility] Comment on above: Performed By: #### C BCA, BMP, , 2776-11 ####[facility] ([id number])[address], [address], [place] [address] Eosinophils/100 WBC (Bld) 2.0 % Normal [facility] Comment on above: Performed By: #### C BCA, BMP, , 2776-11 ####[facility] ([id number])[address] [address] [place] [address] Erythrocyte distribution width (RBC) [Ratio] 17.1 % High 11.5-15.0 [facility] Comment on above: Performed By: #### C BCA, BMP, , 2776-11 ####[facility] ([id number])[address] [address] Hematocrit (Bld) [Volume fraction] 22.8 % Low 39-49 [facility] Comment on above: Performed By: #### C BCA, BMP, , 2776-11 ####[facility] ([id number])[address] [address] [place] [address], [place] [address] Hemoglobin (Bld) [Mass/Vol] 7.4 g/dL Low 13.0-17.0 [facility] Comment on above: Performed By: #### C BCA, BMP, , 2776-11 ####[facility] ([id number])[address], [address] [place] [address] Lymphocytes (Bld) [#/Vol] 0.9 10*3/uL Low 1.0-3.5 [facility] Comment on above: Performed By: #### C BCA, BMP, , 2776-11 ####[facility] ([id number])[address], [address] [place] [address] Lymphocytes/100 WBC (Bld) 14.3 % Normal [facility] Comment on above: Performed By: #### C KERRY, BMP, , 2776-11 ####[facility] ([id number])[address] [address] [place] [address] MCH (RBC) [Entitic mass] 27.8 pg Normal 27-34 [facility] Comment on above: Performed By: #### C BCA, BMP, , 2776-11 ####[facility] ([id number])[address] [address] [place] [address] MCHC (RBC) [Mass/Vol] 32.2 g/dL Normal 32-36 [facility] Comment on above: Performed By: #### C BCA, BMP, , 2776-11 ####[facility] ([id number])[address] [address] [place] [address] MCV (RBC) [Entitic vol] 86 fL Normal 80-100 [facility] Comment on above: Performed By: #### C BCA, BMP, , 2776-11 ####[facility] ([id number])[address] [address] Monocytes (Bld) [#/Vol] 0.9 10*3/uL Normal 0-0.9 [facility] Comment on above: Performed By: #### C BCA, BMP, , 2776-11 ####[facility] ([id number])[address], [address] [address] Monocytes/100 WBC (Bld) 14.1 % Normal [facility] Comment on above: Performed By: #### C BCA, BMP, , 2776-11 ####[facility] ([id number])[address], [address] [address] Neutrophils/100 WBC (Bld) 69.5 % Normal [facility] Comment on above: Performed By: #### C BCA, BMP, , 2776-11 ####[facility] ([id number])[address], [address], [place] [address] Platelet mean volume (Bld) [Entitic vol] 7.1 fL Normal 7-12 [facility] Comment on above: Performed By: #### C BCA, BMP, , 2776-11 ####[facility] ([id number])[address], [address], [place] [address] Platelets (Bld) [#/Vol] 60 10*3/uL Low 150-450 [facility] Comment on above: Performed By: #### C BCA, BMP, , 2776-11 ####[facility] ([id number])[address], [address] [address] RBC COUNT 2.65 X10E12/L Low 4.10-5.70 [facility] Comment on above: Performed By: #### C BCA, BMP, , 2776-11 ####[facility] ([id number])[address], [address] [address] WBC (Bld) [#/Vol] 6.6 10*3/uL Normal 4.0-11.0 [facility] Comment on above: Performed By: #### C BCA, BMP, 18684-4, 2776- ####[facility] ([id number])[address] [address] Fibrin+Fibrinogen fragments LA Qn (PPP)on 08-26-2024 FIBRIN SPLIT PRODUCT <5 Normal <5 [facility] Comment on above: Performed By: #### 4 8664-7, 3251-6, 01381-5 ####[facility] ([id number])[address] [address] Fibrinogen Coagulation.deriv ed (PPP) [Mass/Vol]on 08-26-2024 FIBRINOGEN 365 mg/dL Normal 190-480 [facility] Comment on above: Performed By: #### 4 8664-7, 3251-6, 25646-9 ####[facility] ([id number])[address] [address] Heparin induced platelet IgG IA [OD]on 08-26-2024 HEPARIN PF4 ANTIBODY (HIT) 0.102 OD Normal <0.4 [facility] Comment on above: Result Comment: --- O.D. Interpretation--- < 0.400 Negative >= 0.400 Positive Performed By: #### 4 8664-7, 3251-6, 15324-0 ####[facility] ([id number])[address] [address] MAGNESIUMon 08-26-2024 Magnesium [Mass/Vol] 1.6 mg/dL Low 1.8-2.6 [facility] Comment on above: Performed By: #### C KERRY, BMP, 48282-6, 2776-1 ####[facility] ([id number])[address] [address] Magnesium Ionized ISE (Bld) [Moles/Vol]on 08-26-2024 Magnesium [Moles/Vol] 0.70 mmol/L Normal 0.45-0.74 [facility] Comment on above: Result Comment: NEW REFERENCE RANGE Performed By: #### 7 3572-0 ####[facility] ([id number])[address], [address], [place] [address] PHOSPHORUSon 08-26-2024 Phosphate [Mass/Vol] 4.1 mg/dL Normal 2.4-4.9 [facility] Comment on above: Performed By: #### C BCA, BMP, 21162-0, 2777-1 ####[facility] ([id number])[address], [address], [place] [address] POTASSIUMon 08-26-2024 Potassium [Moles/Vol] 4.6 mmol/L Normal 3.5-5.0 [facility] Comment on above: Performed By: #### 2 823-3 ####[facility] ([id number])[address] [address] [place] [address] Potassium [Moles/Vol] 3.8 mmol/L Normal 3.5-5.0 [facility] Comment on above: Performed By: #### 2 823-3 ####[facility] ([id number])[address] [place] [address] ARTERIAL BLOOD GASon 024 NANCY'S TEST Normal [facility] Comment on above: Performed By: #### A BG ####[facility] ([id number])[address] [place] [address] Base excess Calc (Bld) [Moles/Vol] 7.0 mmol/L High 0.0-2.0 [facility] Comment on above: Performed By: #### A BG ####[facility] ([id number])[address] [place] [address] Body temperature 98.6 [degF] Normal 37.0 [facility] Comment on above: Performed By: #### A BG ####[facility] ([id number])[address] [place] [address] HCO3 (Bld) [Moles/Vol] 31.9 mmol/L High 22-26 [facility] Comment on above: Performed By: #### A BG ####[facility] ([id number])[address] [place] [address] INSP. O2 CONC. 28 % Normal [facility] Comment on above: Performed By: #### A BG ####[facility] ([id number])[address] [place] [place] [address] Oxygen (Bld) [Partial pressure] 69 mm[Hg] Low 80-100 [facility] Comment on above: Performed By: #### A BG ####[facility] ([id number])[address] [address] Oxygen saturation in Blood 94.0 % Normal >90 [facility] Comment on above: Performed By: #### A BG ####[facility] ([id number])[address] [place] [place] [address] OXYGEN SOURCE NC Normal [facility] Comment on above: Performed By: #### A BG ####[facility] ([id number])[address] [place] [place] [address] PCO2 46.8 MMHG High 35-45 [facility] Comment on above: Performed By: #### A BG ####[facility] ([id number])[address] [place] [address] pH (Bld) 7.442 [pH] Normal 7.350-7.450 [facility] Comment on above: Performed By: #### A BG ####[facility] ([id number])[address] [place] [address] SAMPLE SITE Andreea Normal [facility] Comment on above: Performed By: #### A BG ####[facility] ([id number])[address] [place] [address] SAMPLE TYPE ARTERIAL Normal [facility] Comment on above: Performed By: #### A BG ####[facility] ([id number])[address] [place] [address] BASIC METABOLIC PANLon 08-25 Anion gap [Moles/Vol] 13 mmol/L Normal 5-15 [facility] Comment on above: Performed By: #### C BCA, BMP, , 2776-11 ####[facility] ([id number])[address], [address] [address] Calcium [Mass/Vol] 7.7 mg/dL Low 8.5-10.5 [facility] Comment on above: Performed By: #### C BCA, BMP, , 2776-11 ####[facility] ([id number])[address], [place] [address] Chloride [Moles/Vol] 100 mmol/L Normal 98-109 [facility] Comment on above: Performed By: #### C BCA, BMP, , 2776-11 ####[facility] ([id number])[address], [place] [address] CO2 [Moles/Vol] 31 mmol/L Normal 22-32 [facility] Comment on above: Performed By: #### C BCA, BMP, , 2776-11 ####[facility] ([id number])[address], [place] [address] Creatinine [Mass/Vol] 3.92 mg/dL High 0.60-1.30 [facility] Comment on above: Result Comment: METH OD TRACEABLE TO IDMS STANDARD Performed By: #### C ADRIANA PAYNE, , 2776-11 ####[facility] ([id number])[address], [address], [place] [address] GFR/1.73 sq M.predicted among non-blacks MDRD (S/P/Bld) [Vol rate/Area] 16 mL/min/{1.73_m2} Low >59 [facility] Comment on above: Result Comment: Repo rted eGFR is based on theCKD-EPI 2020 equation that doesnot use a race coefficient. Performed By: #### C ADRIANA PAYNE, , 2776-11 ####[facility] ([id number])[address] [address] [place] [address] Glucose [Mass/Vol] 92 mg/dL Normal 65-99 [facility] Comment on above: Performed By: #### C ADRIANA PAYNE, , 2776-11 ####[facility] ([id number])[address] [address] Potassium [Moles/Vol] 3.5 mmol/L Normal 3.5-5.0 [facility] Comment on above: Performed By: #### C ADRIANA PAYNE, , 2776-11 ####[facility] ([id number])[address] [address] [place] [address] Sodium [Moles/Vol] 144 mmol/L Normal 134-146 [facility] Comment on above: Performed By: #### C ADRIANA PAYNE, , 2776-11 ####[facility] ([id number])[address] [address] Urea nitrogen [Mass/Vol] 70 mg/dL High 5-27 [facility] Comment on above: Performed By: #### C ADRIANA PAYNE, , 2776-11 ####[facility] ([id number])[address], [address], [place] [address] CBC AND AUTO DIFFon 08-25-20 24 ABSOLUTE BASOPHIL 0.0 X10E9/L Normal 0.0-0.2 [facility] Comment on above: Performed By: #### C KERRY, [facility], , 2776-11 ####[facility] ([id number])[address], [address], [place] [address] ABSOLUTE NEUTROPHIL 4.1 X10E9/L Normal 1.5-6.6 [facility] Comment on above: Performed By: #### C KERRY, [facility], , 2776-11 ####[facility] ([id number])[address], [address], [place] [address] Basophils/100 WBC (Bld) 0.2 % Normal [facility] Comment on above: Performed By: #### C KERRY, [facility], , 2776-11 ####[facility] ([id number])[address], [address], [place] [address] Eosinophils (Bld) [#/Vol] 0.1 10*3/uL Normal 0.0-0.4 [facility] Comment on above: Performed By: #### C KERRY, [facility], , 2776-11 ####[facility] ([id number])[address], [address], [place] [address] Eosinophils/100 WBC (Bld) 1.9 % Normal [facility] Comment on above: Performed By: #### C BCA, [facility], , 2776-11 ####[facility] ([id number])[address], [address], [place] [address] Erythrocyte distribution width (RBC) [Ratio] 17.5 % High 11.5-15.0 [facility] Comment on above: Performed By: #### C KERRY, [facility], , 2776-11 ####[facility] ([id number])[address] [address], [place] [address] Hematocrit (Bld) [Volume fraction] 24.2 % Low 39-49 [facility] Comment on above: Performed By: #### C KERRY, [facility], , 2776-11 ####[facility] ([id number])[address] [address], [place] [address] Hemoglobin (Bld) [Mass/Vol] 7.9 g/dL Low 13.0-17.0 [facility] Comment on above: Performed By: #### C KERRY, BMP, , 2776-11 ####[facility] ([id number])[address] [address] Lymphocytes (Bld) [#/Vol] 1.0 10*3/uL Normal 1.0-3.5 [facility] Comment on above: Performed By: #### C KERRY, [facility], , 2776-11 ####[facility] ([id number])[address] [address] Lymphocytes/100 WBC (Bld) 16.1 % Normal [facility] Comment on above: Performed By: #### C KERRY, BMP, , 2776-11 ####[facility] ([id number])[address] [address] [place] [address] MCH (RBC) [Entitic mass] 28.0 pg Normal 27-34 [facility] Comment on above: Performed By: #### C BCA, BMP, , 2776-11 ####[facility] ([id number])[address] [address], [place] [address] MCHC (RBC) [Mass/Vol] 32.7 g/dL Normal 32-36 [facility] Comment on above: Performed By: #### C KERRY BMP, , 2776-11 ####[facility] ([id number])[address], [place] [address] MCV (RBC) [Entitic vol] 86 fL Normal 80-100 [facility] Comment on above: Performed By: #### Belle PAYNE, BMP, , 2776-11 ####[facility] ([id number])[address] [address] Monocytes (Bld) [#/Vol] 0.7 10*3/uL Normal 0-0.9 [facility] Comment on above: Performed By: #### Belle PAYNE, BMP, , 2776-11 ####[facility] ([id number])[address], [address], [place] [address] Monocytes/100 WBC (Bld) 12.6 % Normal [facility] Comment on above: Performed By: #### Belle PAYNE, BMP, , 2776-11 ####[facility] ([id number])[address], [place] [address] Neutrophils/100 WBC (Bld) 69.2 % Normal [facility] Comment on above: Performed By: #### Belle PAYNE, BMP, , 2776-11 ####[facility] ([id number])[address], [place] [address] Platelet mean volume (Bld) [Entitic vol] 7.2 fL Normal 7-12 [facility] Comment on above: Performed By: #### Belle PAYNE, BMP, , 2776-11 ####[facility] ([id number])[address], [address], [place] [address] Platelets (Bld) [#/Vol] 84 10*3/uL Low 150-450 [facility] Comment on above: Performed By: #### C ADRIANA PAYNE, , 2776-11 ####[facility] ([id number])[address], [place] [address] RBC COUNT 2.83 X10E12/L Low 4.10-5.70 [facility] Comment on above: Performed By: #### C ADRIANA PAYNE, , 2776-11 ####[facility] ([id number])[address], [place] [address] WBC (Bld) [#/Vol] 5.9 10*3/uL Normal 4.0-11.0 [facility] Comment on above: Performed By: #### C ADRIANA PAYNE, , 2776-11 ####[facility] ([id number])[address], [address] [place] [address] MAGNESIUMon 08-25-2024 Magnesium [Mass/Vol] 1.8 mg/dL Normal 1.8-2.6 [facility] Comment on above: Performed By: #### C ADRIANA PAYNE, , 2776-11 ####[facility] ([id number])[address], [address] [place] [address] PHOSPHORUSon 08-25-2024 Phosphate [Mass/Vol] 5.3 mg/dL High 2.4-4.9 [facility] Comment on above: Performed By: #### C ADRIANA PAYNE, , 2776-11 ####[facility] ([id number])[address], [place] [address] POTASSIUMon 08-25-2024 Potassium [Moles/Vol] 3.7 mmol/L Normal 3.5-5.0 [facility] Comment on above: Performed By: #### 2 823-3 ####[facility] ([id number])[address], [place] [address] BASIC METABOLIC PANLon 08-24 Anion gap [Moles/Vol] 12 mmol/L Normal 5-15 [facility] Comment on above: Performed By: #### B DIANE, , 2776-11, CBCA ####[facility] ([id number])[address], [place] [address] Calcium [Mass/Vol] 8.2 mg/dL Low 8.5-10.5 [facility] Comment on above: Performed By: #### B DIANE, , 2776-11, CBCA ####[facility] ([id number])[address], [place] [address] Chloride [Moles/Vol] 104 mmol/L Normal 98-109 [facility] Comment on above: Performed By: #### B DIANE, , 2776-11, CBCA ####[facility] ([id number])[address], [place] [address] CO2 [Moles/Vol] 29 mmol/L Normal 22-32 [facility] Comment on above: Performed By: #### B DIANE, , 2776-11, CBCA ####[facility] ([id number])[address], [place] [address] Creatinine [Mass/Vol] 3.99 mg/dL High 0.60-1.30 [facility] Comment on above: Result Comment: METH OD TRACEABLE TO IDMS STANDARD Performed By: #### B DIANE, , 2776-11, CBCA ####[facility] ([id number])[address], [place] [address] GFR/1.73 sq M.predicted among non-blacks MDRD (S/P/Bld) [Vol rate/Area] 16 mL/min/{1.73_m2} Low >59 [facility] Comment on above: Result Comment: Repo rted eGFR is based on theCKD-EPI 2020 equation that doesnot use a race coefficient. Performed By: #### B DIANE, , 2776-11, CBCA ####[facility] ([id number])[address], [address] [place] [address] Glucose [Mass/Vol] 83 mg/dL Normal 65-99 [facility] Comment on above: Performed By: #### B DIANE, , 2776-11, CBCA ####[facility] ([id number])[address], [address] [place] [address]244 Potassium [Moles/Vol] 4.0 mmol/L Normal 3.5-5.0 [facility] Comment on above: Performed By: #### B DIANE, , 2776-11, CBCA ####[facility] ([id number])[address], [address] [place] [address]644 Sodium [Moles/Vol] 145 mmol/L Normal 134-146 [facility] Comment on above: Performed By: #### B DIANE, , 2776-11, CBCA ####[facility] ([id number])[address], [address] [place] [address]885 Urea nitrogen [Mass/Vol] 72 mg/dL High 5-27 [facility] Comment on above: Performed By: #### B DIANE, , 2776-11, CBCA ####[facility] ([id number])[address], [address] [place] [address] CBC AND AUTO DIFFon 10-22-20 24 ABSOLUTE BASOPHIL 0.0 X10E9/L Normal 0.0-0.2 [facility] Comment on above: Performed By: #### B DIANE, , 2776-11, CBCA ####[facility] ([id number])[address], [address], [place] [address] ABSOLUTE NEUTROPHIL 5.6 X10E9/L Normal 1.5-6.6 [facility] Comment on above: Performed By: #### B DIANE, , 2776-11, CBCA ####[facility] ([id number])[address], [address], [place] [address] Basophils/100 WBC (Bld) 0.5 % Normal [facility] Comment on above: Performed By: #### B DIANE, , 2776-11, CBCA ####[facility] ([id number])[address], [address], [place] [address] Eosinophils (Bld) [#/Vol] 0.0 10*3/uL Normal 0.0-0.4 [facility] Comment on above: Performed By: #### B DIANE, , 2776-11, CBCA ####[facility] ([id number])[address], [address] [place] [address] Eosinophils/100 WBC (Bld) 0.7 % Normal [facility] Comment on above: Performed By: #### B DIANE, , 2776-11, CBCA ####[facility] ([id number])[address], [address] [place] [address], [place] [address] Erythrocyte distribution width (RBC) [Ratio] 17.3 % High 11.5-15.0 [facility] Comment on above: Performed By: #### B DIANE, , 2776-11, CBCA ####[facility] ([id number])[address], [address] [address] [address] Hematocrit (Bld) [Volume fraction] 23.7 % Low 39-49 [facility] Comment on above: Performed By: #### B DIANE, , 2776-11, CBCA ####[facility] ([id number])[address], [address] [place] [address] Hemoglobin (Bld) [Mass/Vol] 7.7 g/dL Low 13.0-17.0 [facility] Comment on above: Performed By: #### B DIANE, , 2776-11, CBCA ####[facility] ([id number])[address], [address] [place] [address] Lymphocytes (Bld) [#/Vol] 0.6 10*3/uL Low 1.0-3.5 [facility] Comment on above: Performed By: #### B DIANE, , 2776-11, CBCA ####[facility] ([id number])[address] [address] [place] [address] Lymphocytes/100 WBC (Bld) 8.4 % Normal [facility] Comment on above: Performed By: #### B DIANE, , 2776-11, CBCA ####[facility] ([id number])[address] [address] [place] [address] MCH (RBC) [Entitic mass] 27.8 pg Normal 27-34 [facility] Comment on above: Performed By: #### B DIANE, , 2776-11, CBCA ####[facility] ([id number])[address] [address] [place] [address] MCHC (RBC) [Mass/Vol] 32.3 g/dL Normal 32-36 [facility] Comment on above: Performed By: #### B DIANE, , 2776-11, CBCA ####[facility] ([id number])[address] [address] [place] [address] 15221 MCV (RBC) [Entitic vol] 86 fL Normal 80-100 [facility] Comment on above: Performed By: #### B DIANE, , 2776-11, CBCA ####[facility] ([id number])[address], [address] [address] Monocytes (Bld) [#/Vol] 0.6 10*3/uL Normal 0-0.9 [facility] Comment on above: Performed By: #### B DIANE, , 2776-11, CBCA ####[facility] ([id number])[address], [address], [place] [address] Monocytes/100 WBC (Bld) 9.1 % Normal [facility] Comment on above: Performed By: #### B DIANE, , 2776-11, CBCA ####[facility] ([id number])[address], [address], [place] [address] Neutrophils/100 WBC (Bld) 81.3 % Normal [facility] Comment on above: Performed By: #### B DIANE, , 2776-11, CBCA ####[facility] ([id number])[address], [address], [place] [address] Platelet mean volume (Bld) [Entitic vol] 7.6 fL Normal 7-12 [facility] Comment on above: Performed By: #### B DIANE, , 2776-11, CBCA ####[facility] ([id number])[address], [address] [address] Platelets (Bld) [#/Vol] 95 10*3/uL Low 150-450 [facility] Comment on above: Performed By: #### B DIANE, , 2776-11, CBCA ####[facility] ([id number])[address], [address] [address] RBC COUNT 2.76 X10E12/L Low 4.10-5.70 [facility] Comment on above: Performed By: #### B DIANE, , 2776-11, CBCA ####[facility] ([id number])[address], [address] [place] [address] WBC (Bld) [#/Vol] 6.9 10*3/uL Normal 4.0-11.0 [facility] Comment on above: Performed By: #### B DIANE, , 2776-11, CBCA ####[facility] ([id number])[address], [address], [place] [address] MAGNESIUMon 08-24-2024 Magnesium [Mass/Vol] 2.0 mg/dL Normal 1.8-2.6 [facility] Comment on above: Performed By: #### B DIANE, , 2776-11, CBCA ####[facility] ([id number])[address], [address], [place] [address] PHOSPHORUSon 08-24-2024 Phosphate [Mass/Vol] 6.5 mg/dL High 2.4-4.9 [facility] Comment on above: Performed By: #### B DIANE, , 2776-11, CBCA ####[facility] ([id number])[address], [address] [place] [address] ARTERIAL CODEon 08-23-2024 NANCY'S TEST Normal [facility] Comment on above: Performed By: #### I CODE ####[facility] ([id number])[address] [place] [address] Base excess Calc (Bld) [Moles/Vol] 0.0 mmol/L Normal 0.0-2.0 [facility] Comment on above: Performed By: #### I CODE ####[facility] ([id number])[address] [place] [address] Body temperature 98.6 [degF] Normal 37.0 [facility] Comment on above: Performed By: #### I CODE ####[facility] ([id number])[address] [facility] [place] [address] Glucose [Mass/Vol] 78 mg/dL Normal 65-99 [facility] Comment on above: Performed By: #### I CODE ####[facility] ([id number])[address] [place] [address] HCO3 (Bld) [Moles/Vol] 26.4 mmol/L High 22-26 [facility] Comment on above: Performed By: #### I CODE ####[facility] ([id number])[address] [place] [address] Hematocrit (Bld) [Volume fraction] 24 % Low 39-49 [facility] Comment on above: Performed By: #### I CODE ####[facility] ([id number])[address] [facility] [place] [address] INSP. O2 CONC. 44 % Normal [facility] Comment on above: Performed By: #### I CODE ####[facility] ([id number])[address] [facility] [place] [address] Oxygen (Bld) [Partial pressure] 69 mm[Hg] Low 80-100 [facility] Comment on above: Performed By: #### I CODE ####[facility] ([id number])[address] [facility] [place] [address] Oxygen saturation in Blood 91.0 % Normal >90 [facility] Comment on above: Performed By: #### I CODE ####[facility] ([id number])[address] [facility] [place] [address] OXYGEN SOURCE NC Normal [facility] Comment on above: Performed By: #### I CODE ####[facility] ([id number])[address] [facility] [place] [address] PCO2 53.7 MMHG High 35-45 [facility] Comment on above: Performed By: #### I CODE ####[facility] ([id number])[address] [place] [address] pH (Bld) 7.300 [pH] Low 7.350-7.450 [facility] Comment on above: Performed By: #### I CODE ####[facility] ([id number])[address] [facility] [place] [address] PORTABLE ICA 4.8 mg/dL Normal 4.5-5.3 [facility] Comment on above: Performed By: #### I CODE ####[facility] ([id number])[address] [facility] [place] [address] Potassium [Moles/Vol] 4.0 mmol/L Normal 3.5-5.0 [facility] Comment on above: Performed By: #### I CODE ####[facility] ([id number])[address] [facility] [place] [address] SAMPLE SITE Andreea Normal [facility] Comment on above: Performed By: #### I CODE ####[facility] ([id number])[address] [facility] [place] [address] SAMPLE TYPE ARTERIAL Normal [facility] Comment on above: Performed By: #### I CODE ####[facility] ([id number])[address] [facility] [place] [address] Sodium [Moles/Vol] 143 mmol/L Normal 134-146 [facility] Comment on above: Performed By: #### I CODE ####[facility] ([id number])[address] [facility] [place] [address] BASIC METABOLIC PANLon 08-23 Anion gap [Moles/Vol] 13 mmol/L Normal 5-15 [facility] Comment on above: Performed By: #### B MP, , 2776-11 ####[facility] ([id number])[address] [address] [place] [address] Calcium [Mass/Vol] 8.6 mg/dL Normal 8.5-10.5 [facility] Comment on above: Performed By: #### Suhas CONTRERAS, , 2776-11 ####[facility] ([id number])[address] [address] [place] [address] Chloride [Moles/Vol] 106 mmol/L Normal 98-109 [facility] Comment on above: Performed By: #### Suhas CONTRERAS, , 2776-11 ####[facility] ([id number])[address] [address] [place] [address] CO2 [Moles/Vol] 25 mmol/L Normal 22-32 [facility] Comment on above: Performed By: #### Suhas CONTRERAS, , 2776-11 ####[facility] ([id number])[address] [address] Creatinine [Mass/Vol] 3.93 mg/dL High 0.60-1.30 [facility] Comment on above: Result Comment: METH OD TRACEABLE TO IDMS STANDARD Performed By: #### Suhas CONTRERAS, , 2776-11 ####[facility] ([id number])[address] [address] GFR/1.73 sq M.predicted among non-blacks MDRD (S/P/Bld) [Vol rate/Area] 16 mL/min/{1.73_m2} Low >59 [facility] Comment on above: Result Comment: Repo rted eGFR is based on theCKD-EPI 2020 equation that doesnot use a race coefficient. Performed By: #### Suhas CONTRERAS, , 2776-11 ####[facility] ([id number])[address], [place] [address] Glucose [Mass/Vol] 90 mg/dL Normal 65-99 [facility] Comment on above: Performed By: #### Suhas CONTRERAS, , 2776-11 ####[facility] ([id number])[address] [address] Potassium [Moles/Vol] 4.1 mmol/L Normal 3.5-5.0 [facility] Comment on above: Performed By: #### Suhas CONTRERAS, , 2776- ####[facility] ([id number])[address], [address] [address] Sodium [Moles/Vol] 144 mmol/L Normal 134-146 [facility] Comment on above: Performed By: #### Suhas CONTRERAS, , 2776-11 ####[facility] ([id number])[address], [address] [address] Urea nitrogen [Mass/Vol] 73 mg/dL High 5-27 [facility] Comment on above: Performed By: #### Suhas CONTRERAS, , 2776-11 ####[facility] ([id number])[address] [address], [place] [address] CBC AND AUTO DIFFon 10-21-20 24 ABSOLUTE BASOPHIL 0.0 X10E9/L Normal 0.0-0.2 [facility] Comment on above: Performed By: #### C BCA ####[facility] ([id number])[address], [place] [address] ABSOLUTE NEUTROPHIL 6.0 X10E9/L Normal 1.5-6.6 [facility] Comment on above: Performed By: #### C BCA ####[facility] ([id number])[address] [address], [place] [address] Basophils/100 WBC (Bld) 0.0 % Normal [facility] Comment on above: Performed By: #### C BCA ####[facility] ([id number])[address], [place] [address] Eosinophils (Bld) [#/Vol] 0.0 10*3/uL Normal 0.0-0.4 [facility] Comment on above: Performed By: #### C BCA ####[facility] ([id number])[address] [address], [place] [address] Eosinophils/100 WBC (Bld) 0.4 % Normal [facility] Comment on above: Performed By: #### C BCA ####[facility] ([id number])[address] [address] [place] [address] Erythrocyte distribution width (RBC) [Ratio] 18.0 % High 11.5-15.0 [facility] Comment on above: Performed By: #### C BCA ####[facility] ([id number])[address] [address], [place] [address] Hematocrit (Bld) [Volume fraction] 23.5 % Low 39-49 [facility] Comment on above: Performed By: #### C BCA ####[facility] ([id number])[address] [address] [place] [address] Hemoglobin (Bld) [Mass/Vol] 7.6 g/dL Low 13.0-17.0 [facility] Comment on above: Performed By: #### C BCA ####[facility] ([id number])[address] [address] Lymphocytes (Bld) [#/Vol] 0.6 10*3/uL Low 1.0-3.5 [facility] Comment on above: Performed By: #### C BCA ####[facility] ([id number])[address], [place] [address] Lymphocytes/100 WBC (Bld) 7.8 % Normal [facility] Comment on above: Performed By: #### C BCA ####[facility] ([id number])[address], [place] [address] MCH (RBC) [Entitic mass] 28.0 pg Normal 27-34 [facility] Comment on above: Performed By: #### C BCA ####[facility] ([id number])[address], [address] [address] MCHC (RBC) [Mass/Vol] 32.5 g/dL Normal 32-36 [facility] Comment on above: Performed By: #### C BCA ####[facility] ([id number])[address] [address] MCV (RBC) [Entitic vol] 86 fL Normal 80-100 [facility] Comment on above: Performed By: #### C BCA ####[facility] ([id number])[address] [address], [place] [address] Monocytes (Bld) [#/Vol] 0.6 10*3/uL Normal 0-0.9 [facility] Comment on above: Performed By: #### C BCA ####[facility] ([id number])[address], [place] [address] Monocytes/100 WBC (Bld) 7.9 % Normal [facility] Comment on above: Performed By: #### C BCA ####[facility] ([id number])[address], [place] [address] Neutrophils/100 WBC (Bld) 83.9 % Normal [facility] Comment on above: Performed By: #### C BCA ####[facility] ([id number])[address], [place] [address] Platelet mean volume (Bld) [Entitic vol] 7.3 fL Normal 7-12 [facility] Comment on above: Performed By: #### C BCA ####[facility] ([id number])[address], [place] [address] Platelets (Bld) [#/Vol] 95 10*3/uL Low 150-450 [facility] Comment on above: Performed By: #### C BCA ####[facility] ([id number])[address], [place] [address] RBC COUNT 2.73 X10E12/L Low 4.10-5.70 [facility] Comment on above: Performed By: #### C BCA ####[facility] ([id number])[address], [place] [address] WBC (Bld) [#/Vol] 7.2 10*3/uL Normal 4.0-11.0 [facility] Comment on above: Performed By: #### C BCA ####[facility] ([id number])[address], [place] [address] ABSOLUTE BASOPHIL 0.0 X10E9/L Normal 0.0-0.2 [facility] Comment on above: Performed By: #### C BCA, ELEC ####[facility] ([id number])[address], [place] [address] ABSOLUTE NEUTROPHIL 6.1 X10E9/L Normal 1.5-6.6 [facility] Comment on above: Performed By: #### C BCA, ELEC ####[facility] ([id number])[address], [place] [address] Basophils/100 WBC (Bld) 0.1 % Normal [facility] Comment on above: Performed By: #### C BCA, ELEC ####[facility] ([id number])[address] [address] [address] Eosinophils (Bld) [#/Vol] 0.0 10*3/uL Normal 0.0-0.4 [facility] Comment on above: Performed By: #### C BCA, ELEC ####[facility] ([id number])[address] [address] [address] Eosinophils/100 WBC (Bld) 0.2 % Normal [facility] Comment on above: Performed By: #### C BCA, ELEC ####[facility] ([id number])[address] [address] [address] Erythrocyte distribution width (RBC) [Ratio] 17.7 % High 11.5-15.0 [facility] Comment on above: Performed By: #### C BCA, ELEC ####[facility] ([id number])[address] [address], [place] [address] Hematocrit (Bld) [Volume fraction] 23.8 % Low 39-49 [facility] Comment on above: Performed By: #### C BCA, ELEC ####[facility] ([id number])[address] [address], [place] [address] Hemoglobin (Bld) [Mass/Vol] 7.7 g/dL Low 13.0-17.0 [facility] Comment on above: Performed By: #### C BCA, ELEC ####[facility] ([id number])[address] [address] [address] Lymphocytes (Bld) [#/Vol] 0.6 10*3/uL Low 1.0-3.5 [facility] Comment on above: Performed By: #### C BCA, ELEC ####[facility] ([id number])[address] [address] [address] Lymphocytes/100 WBC (Bld) 8.3 % Normal [facility] Comment on above: Performed By: #### C BCA, ELEC ####[facility] ([id number])[address], [place] [address] MCH (RBC) [Entitic mass] 27.9 pg Normal 27-34 [facility] Comment on above: Performed By: #### C BCA, ELEC ####[facility] ([id number])[address], [place] [address] MCHC (RBC) [Mass/Vol] 32.2 g/dL Normal 32-36 [facility] Comment on above: Performed By: #### C BCA, ELEC ####[facility] ([id number])[address] [address] MCV (RBC) [Entitic vol] 87 fL Normal 80-100 [facility] Comment on above: Performed By: #### C BCA, ELEC ####[facility] ([id number])[address] [address], [place] [address] Monocytes (Bld) [#/Vol] 0.6 10*3/uL Normal 0-0.9 [facility] Comment on above: Performed By: #### C BCA, ELEC ####[facility] ([id number])[address], [place] [address] Monocytes/100 WBC (Bld) 8.1 % Normal [facility] Comment on above: Performed By: #### C BCA, ELEC ####[facility] ([id number])[address] [address], [place] [address] Neutrophils/100 WBC (Bld) 83.3 % Normal [facility] Comment on above: Performed By: #### C BCA, ELEC ####[facility] ([id number])[address], [place] [address] Platelet mean volume (Bld) [Entitic vol] 7.4 fL Normal 7-12 [facility] Comment on above: Performed By: #### C BCA, ELEC ####[facility] ([id number])[address], [place] [address] Platelets (Bld) [#/Vol] 98 10*3/uL Low 150-450 [facility] Comment on above: Performed By: #### C BCA, ELEC ####[facility] ([id number])[address], [place] [address] RBC COUNT 2.75 X10E12/L Low 4.10-5.70 [facility] Comment on above: Performed By: #### C BCA, ELEC ####[facility] ([id number])[address] [address] WBC (Bld) [#/Vol] 7.3 10*3/uL Normal 4.0-11.0 [facility] Comment on above: Performed By: #### C BCA, ELEC ####[facility] ([id number])[address], [place] [address] ELECTROLYTESon 08-23-2024 Anion gap [Moles/Vol] 12 mmol/L Normal 5-15 [facility] Comment on above: Performed By: #### E LEC ####[facility] ([id number])[address], [place] [address] Chloride [Moles/Vol] 106 mmol/L Normal 98-109 [facility] Comment on above: Performed By: #### E LEC ####[facility] ([id number])[address] [address] CO2 [Moles/Vol] 26 mmol/L Normal 22-32 [facility] Comment on above: Performed By: #### E LEC ####[facility] ([id number])[address], [place] [address] Potassium [Moles/Vol] 3.6 mmol/L Normal 3.5-5.0 [facility] Comment on above: Performed By: #### E LEC ####[facility] ([id number])[address], [place] [address] Sodium [Moles/Vol] 144 mmol/L Normal 134-146 [facility] [place] Comment on above: Performed By: #### E LEC ####[facility] ([id number])[address], [place] [address] Anion gap [Moles/Vol] 16 mmol/L High 5-15 [facility] Comment on above: Performed By: #### E LEC ####[facility] ([id number])[address], [place] [address] Chloride [Moles/Vol] 104 mmol/L Normal 98-109 [facility] Comment on above: Performed By: #### E LEC ####[facility] ([id number])[address], [place] [address] CO2 [Moles/Vol] 25 mmol/L Normal 22-32 [facility] Comment on above: Performed By: #### E LEC ####[facility] ([id number])[address], [place] [address] Potassium [Moles/Vol] 3.8 mmol/L Normal 3.5-5.0 [facility] Comment on above: Performed By: #### E LEC ####[facility] ([id number])[address], [place] [address] Sodium [Moles/Vol] 145 mmol/L Normal 134-146 [facility] [place] Comment on above: Performed By: #### E LEC ####[facility] ([id number])[address], [place] [address] Anion gap [Moles/Vol] 14 mmol/L Normal 5-15 [facility] Comment on above: Performed By: #### C BCA, ELEC ####[facility] ([id number])[address], [place] [address] Chloride [Moles/Vol] 105 mmol/L Normal 98-109 [facility] Comment on above: Performed By: #### C BCA, ELEC ####[facility] ([id number])[address], [place] [address] CO2 [Moles/Vol] 25 mmol/L Normal 22-32 [facility] Comment on above: Performed By: #### C BCA, ELEC ####[facility] ([id number])[address], [place] [address] Potassium [Moles/Vol] 4.1 mmol/L Normal 3.5-5.0 [facility] Comment on above: Performed By: #### C BCA, ELEC ####[facility] ([id number])[address], [address], [place] [address] Sodium [Moles/Vol] 144 mmol/L Normal 134-146 [facility] [place] Comment on above: Performed By: #### C BCA, ELEC ####[facility] ([id number])[address], [place] [address] Anion gap [Moles/Vol] 15 mmol/L Normal 5-15 [facility] Comment on above: Performed By: #### E LEC ####[facility] ([id number])[address], [place] [address] Chloride [Moles/Vol] 105 mmol/L Normal 98-109 [facility] Comment on above: Performed By: #### E LEC ####[facility] ([id number])[address], [place] [address] CO2 [Moles/Vol] 24 mmol/L Normal 22-32 [facility] Comment on above: Performed By: #### E LEC ####[facility] ([id number])[address], [address], [place] [address] Potassium [Moles/Vol] 4.2 mmol/L Normal 3.5-5.0 [facility] Comment on above: Performed By: #### E LEC ####[facility] ([id number])[address], [address], [place] [address] Sodium [Moles/Vol] 144 mmol/L Normal 134-146 [facility] Comment on above: Performed By: #### E LEC ####[facility] ([id number])[address], [address], [place] [address] Glucose Glucometer (BldC) [M ass/Vol]on 08-23-2024 Glucose [Mass/Vol] 152 mg/dL High 65-99 [facility] [place] MAGNESIUMon 08-23-2024 Magnesium [Mass/Vol] 2.1 mg/dL Normal 1.8-2.6 [facility] Comment on above: Performed By: #### B DIANE, , 2777-1 ####[facility] ([id number])[address], [address], [place] [address] PHOSPHORUSon 08-23-2024 Phosphate [Mass/Vol] 7.1 mg/dL High 2.4-4.9 [facility] Comment on above: Performed By: #### B DIANE, , 2777- ####[facility] ([id number])[address], [place] [address] POTASSIUMon 08-23-2024 Potassium [Moles/Vol] 4.0 mmol/L Normal 3.5-5.0 [facility] Comment on above: Performed By: #### 2 823-3 ####[facility] ([id number])[address] [facility], [address] [place] [address], [place] [address] XR CHEST 1 VWon 08-23-2024 XR CHEST 1 VW Normal [facility] XR CHEST 1 VW Normal [facility] ARTERIAL BLOOD GASon 024 NANCY'S TEST Normal [facility] Comment on above: Performed By: #### A BG ####[facility] ([id number])[address] [place] [address] BASE,DEFICIT 3.0 MMOL/L High 0.0-2.0 [facility] Comment on above: Performed By: #### A BG ####[facility] ([id number])[address] [place] [address] Body temperature 98.6 [degF] Normal 37.0 [facility] Comment on above: Performed By: #### A BG ####[facility] ([id number])[address] [place] [address] HCO3 (Bld) [Moles/Vol] 23.8 mmol/L Normal 22-26 [facility] Comment on above: Performed By: #### A BG ####[facility] ([id number])[address] [place] [address] INSP. O2 CONC. 40 % Normal [facility] Comment on above: Performed By: #### A BG ####[facility] ([id number])[address] [place] [address] Oxygen (Bld) [Partial pressure] 122 mm[Hg] High 80-100 [facility] Comment on above: Performed By: #### A BG ####[facility] ([id number])[address] [place] [address] Oxygen saturation in Blood 98.0 % Normal >90 [facility] Comment on above: Performed By: #### A BG ####[facility] ([id number])[address] [place] [address] OXYGEN SOURCE NPPV [facility] Comment on above: Performed By: #### A BG ####[facility] ([id number])[address] [place] [address] PCO2 49.2 MMHG High 35-45 [facility] Comment on above: Performed By: #### A BG ####[facility] ([id number])[address] [place] [address] pH (Bld) 7.293 [pH] Low 7.350-7.450 [facility] Comment on above: Performed By: #### A BG ####[facility] ([id number])[address] [place] [address] SAMPLE SITE Andreea [facility] Comment on above: Performed By: #### A BG ####[facility] ([id number])[address] [place] [address] SAMPLE TYPE ARTERIAL [facility] Comment on above: Performed By: #### A BG ####[facility] ([id number])[address] [place] [address] BASIC METABOLIC PANLon 08-22 Anion gap [Moles/Vol] 14 mmol/L Normal 5-15 [facility] Comment on above: Performed By: #### C BCA, BMP, 86569-9, 2777-1 ####[facility] ([id number])[address] [facility], [address] [place] [address] Calcium [Mass/Vol] 8.7 mg/dL Normal 8.5-10.5 [facility] Comment on above: Performed By: #### C BCA, BMP, , 2777-1 ####[facility] ([id number])[address], [address], [place] [address] Chloride [Moles/Vol] 106 mmol/L Normal 98-109 [facility] Comment on above: Performed By: #### C KERRY [facility], , 2776-11 ####[facility] ([id number])[address], [address], [place] [address] CO2 [Moles/Vol] 23 mmol/L Normal 22-32 [facility] Comment on above: Performed By: #### C KERRY [facility], , 2776-11 ####[facility] ([id number])[address], [address], [place] [address] Creatinine [Mass/Vol] 3.84 mg/dL High 0.60-1.30 [facility] Comment on above: Result Comment: METH OD TRACEABLE TO IDMS STANDARD Performed By: #### C KERRY [facility], , 2776-11 ####[facility] ([id number])[address] [address], [place] [address] GFR/1.73 sq M.predicted among non-blacks MDRD (S/P/Bld) [Vol rate/Area] 17 mL/min/{1.73_m2} Low >59 [facility] Comment on above: Result Comment: Repo rted eGFR is based on theCKD-EPI 2020 equation that doesnot use a race coefficient. Performed By: #### C ADRIANA PAYNE, , 2776-11 ####[facility] ([id number])[address] [address], [place] [address] Glucose [Mass/Vol] 87 mg/dL Normal 65-99 [facility] Comment on above: Performed By: #### C ADRIANA PAYNE, , 2776-11 ####[facility] ([id number])[address], [address], [place] [address] Potassium [Moles/Vol] 4.4 mmol/L Normal 3.5-5.0 [facility] Comment on above: Performed By: #### C KERRY [facility], , 2776-11 ####[facility] ([id number])[address], [address], [place] [address] Sodium [Moles/Vol] 143 mmol/L Normal 134-146 [facility] Comment on above: Performed By: #### C KERRY [facility], , 2776-11 ####[facility] ([id number])[address], [address] [address] Urea nitrogen [Mass/Vol] 72 mg/dL High 5-27 [facility] Comment on above: Performed By: #### Belle PAYNE BMP, , 2776-11 ####[facility] ([id number])[address], [address] [address] CBC AND AUTO DIFFon 10-20-20 24 Band form neutrophils/100 WBC (Bld) 1.0 % Normal [facility] Comment on above: Performed By: #### C KERRY [facility], , 2776-11 ####[facility] ([id number])[address] [address] Erythrocyte distribution width (RBC) [Ratio] 17.6 % High 11.5-15.0 [facility] Comment on above: Performed By: #### C KERRY, BMP, , 2776-11 ####[facility] ([id number])[address] [address] Hematocrit (Bld) [Volume fraction] 33.2 % Low 39-49 [facility] Comment on above: Performed By: #### C KERRY, BMP, , 2776-11 ####[facility] ([id number])[address], [address] [address] Hemoglobin (Bld) [Mass/Vol] 10.7 g/dL Low 13.0-17.0 [facility] Comment on above: Performed By: #### C KERRY, BMP, , 2776-11 ####[facility] ([id number])[address], [address] [address] Lymphocytes (Bld) [#/Vol] 0.9 10*3/uL Low 1.0-3.5 [facility] Comment on above: Performed By: #### C KERRY, BMP, , 2776-11 ####[facility] ([id number])[address], [address] [address] Lymphocytes/100 WBC (Bld) 3.8 % Normal [facility] Comment on above: Performed By: #### Belle PAYNE, BMP, , 2776-11 ####[facility] ([id number])[address] [address] [place] [address] MCH (RBC) [Entitic mass] 27.6 pg Normal 27-34 [facility] Comment on above: Performed By: #### Belle PAYNE, BMP, , 2776-11 ####[facility] ([id number])[address] [address] [place] [address] MCHC (RBC) [Mass/Vol] 32.2 g/dL Normal 32-36 [facility] Comment on above: Performed By: #### C KERRY, BMP, , 2776-11 ####[facility] ([id number])[address] [address] MCV (RBC) [Entitic vol] 86 fL Normal 80-100 [facility] Comment on above: Performed By: #### Belle PAYNE, BMP, , 2776-11 ####[facility] ([id number])[address], [address], [place] [address] Monocytes (Bld) [#/Vol] 0.4 10*3/uL Normal 0-0.9 [facility] Comment on above: Performed By: #### C BCA, BMP, , 2776-11 ####[facility] ([id number])[address], [address], [place] [address] Monocytes/100 WBC (Bld) 1.9 % Normal [facility] Comment on above: Performed By: #### C BCA, BMP, , 2776-11 ####[facility] ([id number])[address], [address], [place] [address] MYELOCYTE 1.0 % Normal [facility] Comment on above: Performed By: #### Belle BCA, BMP, , 2776-11 ####[facility] ([id number])[address], [address] [address] Neutrophils (Bld) [#/Vol] 22.0 10*3/uL High 1.5-6.6 [facility] Comment on above: Performed By: #### C BCA, BMP, , 2776-11 ####[facility] ([id number])[address], [address], [place] [address] Platelet mean volume (Bld) [Entitic vol] 8.0 fL Normal 7-12 [facility] Comment on above: Performed By: #### C BCA, BMP, , 2776-11 ####[facility] ([id number])[address], [address], [place] [address] Platelets (Bld) [#/Vol] 161 10*3/uL Normal 150-450 [facility] Comment on above: Performed By: #### C BCA, BMP, , 2776-11 ####[facility] ([id number])[address], [address], [place] [address] RBC COUNT 3.88 X10E12/L Low 4.10-5.70 [facility] Comment on above: Performed By: #### C BCA, BMP, , 2776-11 ####[facility] ([id number])[address], [address], [place] [address] RBC morphology finding Nom (Bld) NORMAL Normal [facility] Comment on above: Performed By: #### C BCA, BMP, , 2776-11 ####[facility] ([id number])[address], [address] [address] SEG NEUTROPHIL 92.3 % Normal [facility] Comment on above: Performed By: #### C BCA, BMP, , 2776-11 ####[facility] ([id number])[address], [address], [place] [address] WBC (Bld) [#/Vol] 23.6 10*3/uL High 4.0-11.0 [facility] Comment on above: Performed By: #### C BCA, BMP, , 2776-11 ####[facility] ([id number])[address], [address], [place] [address] ELECTROLYTESon 08-22-2024 Anion gap [Moles/Vol] 11 mmol/L Normal 5-15 [facility] Comment on above: Performed By: #### E LEC ####[facility] ([id number])[address], [address], [place] [address] Chloride [Moles/Vol] 107 mmol/L Normal 98-109 [facility] Comment on above: Performed By: #### E LEC ####[facility] ([id number])[address], [address], [place] [address] CO2 [Moles/Vol] 25 mmol/L Normal 22-32 [facility] Comment on above: Performed By: #### E LEC ####[facility] ([id number])[address], [address], [place] [address] Potassium [Moles/Vol] 4.1 mmol/L Normal 3.5-5.0 [facility] Comment on above: Performed By: #### E LEC ####[facility] ([id number])[address], [address], [place] [address] Sodium [Moles/Vol] 143 mmol/L Normal 134-146 [facility] Comment on above: Performed By: #### E LEC ####[facility] ([id number])[address], [address], [place] [address] Anion gap [Moles/Vol] 14 mmol/L Normal 5-15 [facility] Comment on above: Performed By: #### E LEC ####[facility] ([id number])[address], [address], [place] [address] Chloride [Moles/Vol] 106 mmol/L Normal 98-109 [facility] Comment on above: Performed By: #### E LEC ####[facility] ([id number])[address], [address], [place] [address] CO2 [Moles/Vol] 23 mmol/L Normal 22-32 [facility] Comment on above: Performed By: #### E LEC ####[facility] ([id number])[address], [address], [place] [address] Potassium [Moles/Vol] 4.4 mmol/L Normal 3.5-5.0 [facility] Comment on above: Performed By: #### E LEC ####[facility] ([id number])[address], [address], [place] [address] Sodium [Moles/Vol] 143 mmol/L Normal 134-146 [facility] Comment on above: Performed By: #### E LEC ####[facility] ([id number])[address], [address], [place] [address] Anion gap [Moles/Vol] 15 mmol/L Normal 5-15 [facility] Comment on above: Performed By: #### E LEC, LIVR ####[facility] ([id number])[address], [address], [place] [address] Chloride [Moles/Vol] 110 mmol/L High 98-109 [facility] Comment on above: Performed By: #### E LEC, LIVR ####[facility] ([id number])[address], [address], [place] [address] CO2 [Moles/Vol] 21 mmol/L Low 22-32 [facility] Comment on above: Performed By: #### E LEC, LIVR ####[facility] ([id number])[address], [address], [place] [address] Potassium [Moles/Vol] 4.4 mmol/L Normal 3.5-5.0 [facility] Comment on above: Performed By: #### E LEC, LIVR ####[facility] ([id number])[address], [address], [place] [address] Sodium [Moles/Vol] 146 mmol/L Normal 134-146 [facility] Comment on above: Performed By: #### E LEC, LIVR ####[facility] ([id number])[address], [address], [place] [address] LIVER PANELon 08-22-2024 Albumin [Mass/Vol] 2.6 g/dL Low 3.2-5.3 [facility] Comment on above: Performed By: #### E LEC, LIVR ####[facility] ([id number])[address], [address], [place] [address] ALP [Catalytic activity/Vol] 77 U/L Normal 39-130 [facility] Comment on above: Performed By: #### E LEC, LIVR ####[facility] ([id number])[address], [address], [place] [address] ALT [Catalytic activity/Vol] 6 U/L Normal 0-40 [facility] Comment on above: Performed By: #### E LEC, LIVR ####[facility] ([id number])[address], [address], [place] [address] AST [Catalytic activity/Vol] 14 U/L Normal 0-41 [facility] Comment on above: Performed By: #### E LEC, LIVR ####[facility] ([id number])[address], [address], [place] [address] Bilirubin [Mass/Vol] 0.5 mg/dL Normal 0.3-1.2 [facility] Comment on above: Performed By: #### E LEC, LIVR ####[facility] ([id number])[address], [address], [place] [address] Bilirubin.direct [Mass/Vol] 0.1 mg/dL Normal 0.0-0.4 [facility] Comment on above: Performed By: #### E LEC, LIVR ####[facility] ([id number])[address], [address], [place] [address] Protein [Mass/Vol] 5.3 g/dL Low 6.0-8.0 [facility] Comment on above: Performed By: #### E LEC, LIVR ####[facility] ([id number])[address], [address], [place] [address] Lactate (P oc) [Moles/Vol]o n 08-22-2024 Lactate [Moles/Vol] 2.0 mmol/L Normal 0.4-2.0 [facility] Comment on above: Performed By: #### 3 1 ####[facility] ([id number])[address], [address] [place] [address] MAGNESIUMon 08-22-2024 Magnesium [Mass/Vol] 2.2 mg/dL Normal 1.8-2.6 [facility] Comment on above: Performed By: #### C ADRIANA PAYNE, , 2771 ####[facility] ([id number])[address], [address] [place] [address] Metanephrine.free and Normet anephrine.free panel [Moles/Vol]on 08-22-2024 Metanephrine, Free 0.38 nmol/L Normal <0.50 [facility] Comment on above: Result Comment: NOTE ADDITIONAL INFORMATION This test was developed and its performance characteristicsdetermined by [facility] in a manner consistent with CLIArequirements. This test has not been cleared or approved bythe U.S. Food and Drug Administration.Test Performed by:[address] [address] Director: Sylvia Gonzalez Ph.D.; CLIA# [id number] Normetanephrine, Free 1.4 nmol/L High <0.90 [facility] PHOSPHORUSon 08-22-2024 Phosphate [Mass/Vol] 6.5 mg/dL High 2.4-4.9 [facility] Comment on above: Performed By: #### C ADRIANA PAYNE, , [address] ####[facility] ([id number])[address], [address] [place] [address] XR CHEST 1 VWon 08-22-2024 XR CHEST 1 VW Normal [facility] ARTERIAL BLOOD GASon 024 NANCY'S TEST Normal [facility] Comment on above: Performed By: #### A BG ####[facility] ([id number])[address] [place] [address] BASE,DEFICIT 3.0 MMOL/L High 0.0-2.0 [facility] Comment on above: Performed By: #### A BG ####[facility] ([id number])[address] [place] [address] Body temperature 98.6 [degF] Normal 37.0 [facility] Comment on above: Performed By: #### A BG ####[facility] ([address] [place] [address] [place] [address] HCO3 (Bld) [Moles/Vol] 24.7 mmol/L Normal 22-26 [facility] Comment on above: Performed By: #### A BG ####[facility] ([address] [place] [address] [place] [address] INSP. O2 CONC. 40 % Normal [facility] Comment on above: Performed By: #### A BG ####[facility] ([id number])[address] [place] [address] Oxygen (Bld) [Partial pressure] 97 mm[Hg] Normal 80-100 [facility] Comment on above: Performed By: #### A BG ####[facility] ([id number])[address] [place] [address] Oxygen saturation in Blood 96.0 % Normal >90 [facility] Comment on above: Performed By: #### A BG ####[facility] ([id number])[address] [place] [address] OXYGEN SOURCE NPPV Normal [facility] Comment on above: Performed By: #### A BG ####[facility] ([id number])[address] [place] [address] PCO2 55.0 MMHG High 35-45 [facility] Comment on above: Performed By: #### A BG ####[facility] ([id number])[address] [place] [address] pH (Bld) 7.260 [pH] Low 7.350-7.450 [facility] Comment on above: Performed By: #### A BG ####[facility] ([id number])[address] [place] [address] SAMPLE SITE Andreea Normal [facility] Comment on above: Performed By: #### A BG ####[facility] ([id number])[address] [place] [address] SAMPLE TYPE ARTERIAL Normal [facility] Comment on above: Performed By: #### A BG ####[facility] ([id number])[address] [place] [address] NANCY'S TEST Normal [facility] Comment on above: Performed By: #### A BG ####[facility] ([id number])[address] [place] [address] BASE,DEFICIT 7.0 MMOL/L High 0.0-2.0 [facility] Comment on above: Performed By: #### A BG ####[facility] ([id number])[address] [place] [address] Body temperature 98.6 [degF] Normal 37.0 [facility] Comment on above: Performed By: #### A BG ####[facility] ([id number])[address] [place] [address] HCO3 (Bld) [Moles/Vol] 21.2 mmol/L Low 22-26 [facility] Comment on above: Performed By: #### A BG ####[facility] ([id number])2141 [place] [address] INSP. O2 CONC. 40 % Normal [facility] Comment on above: Performed By: #### A BG ####[facility] ([id number])2141 [place] [address] Oxygen (Bld) [Partial pressure] 90 mm[Hg] Normal 80-100 [facility] Comment on above: Performed By: #### A BG ####[facility] ([id number])2141 [place] [address] Oxygen saturation in Blood 94.0 % Normal >90 [facility] Comment on above: Performed By: #### A BG ####[facility] ([id number])2141 [place] [address] OXYGEN SOURCE NPPV Normal [facility] Comment on above: Performed By: #### A BG ####[facility] ([id number])2141 [place] [address] PCO2 58.5 MMHG High 35-45 [facility] Comment on above: Performed By: #### A BG ####[facility] ([id number])2141 [place] [address] pH (Bld) 7.166 [pH] Critically low 7.350-7.450 [facility] Comment on above: Performed By: #### A BG ####[facility] ([id number])2141 [place] [address] SAMPLE SITE Andreea Normal [facility] Comment on above: Performed By: #### A BG ####[facility] ([id number])2141 [place] [address] SAMPLE TYPE ARTERIAL Normal [facility] Comment on above: Performed By: #### A BG ####[facility] ([id number])2141 [place] [address] ARTERIAL CODEon 08-21-2024 NANCY'S TEST Normal [facility] Comment on above: Performed By: #### I CODE ####[facility] ([id number])2141 [place] [address] BASE,DEFICIT 6.0 MMOL/L High 0.0-2.0 [facility] Comment on above: Performed By: #### I CODE ####[facility] ([id number])2141 [place] [address] Body temperature 98.6 [degF] Normal 37.0 [facility] Comment on above: Performed By: #### I CODE ####[facility] ([id number])2141 [place] [address] Glucose [Mass/Vol] 113 mg/dL High 65-99 [facility] Comment on above: Performed By: #### I CODE ####[facility] ([id number])2141 [place] [address] HCO3 (Bld) [Moles/Vol] 19.4 mmol/L Low 22-26 [facility] Comment on above: Performed By: #### I CODE ####[facility] ([id number])2141 [place] [address] Hematocrit (Bld) [Volume fraction] 33 % Low 39-49 [facility] Comment on above: Performed By: #### I CODE ####[facility] ([id number])2141 [place] [address] INSP. O2 CONC. 40 % Normal [facility] Comment on above: Performed By: #### I CODE ####[facility] ([id number])2141 [place] [address] Oxygen (Bld) [Partial pressure] 100 mm[Hg] Normal 80-100 [facility] Comment on above: Performed By: #### I CODE ####[facility] ([id number])2141 [facility] [place] [address] Oxygen saturation in Blood 97.0 % Normal >90 [facility] Comment on above: Performed By: #### I CODE ####[facility] ([id number])2[address] [facility] [address] OXYGEN SOURCE NPPV Normal [facility] Comment on above: Performed By: #### I CODE ####[facility] ([id number])2[address] [facility] [place] [address] PCO2 35.7 MMHG Normal 35-45 [facility] Comment on above: Performed By: #### I CODE ####[facility] ([id number])2141 [facility] [place] [address] pH (Bld) 7.344 [pH] Low 7.350-7.450 [facility] Comment on above: Performed By: #### I CODE ####[facility] ([id number])[address] [facility] [place] [address] PORTABLE ICA 4.7 mg/dL Normal 4.5-5.3 [facility] Comment on above: Performed By: #### I CODE ####[facility] ([id number])[address] [facility] [place] [address] Potassium [Moles/Vol] 4.5 mmol/L Normal 3.5-5.0 [facility] Comment on above: Performed By: #### I CODE ####[facility] ([id number])2[address] [facility] [place] [address] SAMPLE SITE Andreea Normal [facility] Comment on above: Performed By: #### I CODE ####[facility] ([id number])[address] [facility] [place] [address] SAMPLE TYPE ARTERIAL Normal [facility] Comment on above: Performed By: #### I CODE ####[facility] ([id number])2141 [place] [address] Sodium [Moles/Vol] 140 mmol/L Normal 134-146 [facility] Comment on above: Performed By: #### I CODE ####[facility] ([id number])2[address] [place] [address] BASIC METABOLIC PANLon 08-21 Anion gap [Moles/Vol] 9 mmol/L Normal 5-15 [facility] Comment on above: Performed By: #### B MP ####[facility] ([id number])[address] [address] [address] Calcium [Mass/Vol] 7.9 mg/dL Low 8.5-10.5 [facility] Comment on above: Performed By: #### B MP ####[facility] ([id number])[address] [address], [place] [address] Chloride [Moles/Vol] 107 mmol/L Normal 98-109 [facility] Comment on above: Performed By: #### B MP ####[facility] ([id number])[address] [address] [place] [address], [place] [address] CO2 [Moles/Vol] 25 mmol/L Normal 22-32 [facility] Comment on above: Performed By: #### B MP ####[facility] ([id number])[address] [address], [place] [address] Creatinine [Mass/Vol] 3.77 mg/dL High 0.60-1.30 [facility] Comment on above: Result Comment: METH OD TRACEABLE TO IDMS STANDARD Performed By: #### B MP ####[facility] ([id number])[address] [address], [place] [address] GFR/1.73 sq M.predicted among non-blacks MDRD (S/P/Bld) [Vol rate/Area] 17 mL/min/{1.73_m2} Low >59 [facility] Comment on above: Result Comment: Repo rted eGFR is based on theCKD-EPI 2020 equation that doesnot use a race coefficient. Performed By: #### B MP ####[facility] ([id number])[address], [place] [address] Glucose [Mass/Vol] 121 mg/dL High 65-99 [facility] Comment on above: Performed By: #### B MP ####[facility] ([id number])[address] [address], [place] [address] Potassium [Moles/Vol] 3.8 mmol/L Normal 3.5-5.0 [facility] Comment on above: Performed By: #### B MP ####[facility] ([id number])[address] [address], [place] [address] Sodium [Moles/Vol] 141 mmol/L Normal 134-146 [facility] Comment on above: Performed By: #### B MP ####[facility] ([id number])[address] [address], [place] [address] Urea nitrogen [Mass/Vol] 71 mg/dL High 5-27 [facility] Comment on above: Performed By: #### B MP ####[facility] ([id number])[address] [address], [place] [address] Anion gap [Moles/Vol] 9 mmol/L Normal 5-15 [facility] Comment on above: Performed By: #### C BCA, BMP, 91019-2, 2777-1, C34, 21446-7, SPE, 5193-8, 5196-1, 73909-0, 73946-3, 5130-0, 07038-0, 84625-5, 6969-0, 6968-2 ####[facility] ([id number])[address] [address], [place] [address] Calcium [Mass/Vol] 7.9 mg/dL Low 8.5-10.5 [facility] Comment on above: Performed By: #### C BCA, BMP, 04458-1, 2777-1, C34, 56259-8, SPE, 5193-8, 5196-1, 59863-6, 35597-0, 5130-0, 64211-4, 56092-5, 6969-0, 6968-2 ####[facility] ([id number])[address], [address] [place] [address] Chloride [Moles/Vol] 109 mmol/L Normal 98-109 [facility] Comment on above: Performed By: #### C BCA, BMP, 05284-3, 2777-1, C34, 19686-0, SPE, 5193-8, 5196-1, 32065-0, 29645-6, 5130-0, 18954-6, 94741-5, 6969-0, 6968-2 ####[facility] ([id number])[address], [address] [place] [address] CO2 [Moles/Vol] 21 mmol/L Low 22-32 [facility] Comment on above: Performed By: #### C BCA, BMP, 88231-3, 2777-1, C34, 98679-6, SPE, 5193-8, 5196-1, 29122-8, 66934-4, 5130-0, 35097-2, 44844-4, 6969-0, 6968-2 ####[facility] ([id number])[address], [address] [place] [address] Creatinine [Mass/Vol] 3.85 mg/dL High 0.60-1.30 [facility] Comment on above: Result Comment: METH OD TRACEABLE TO IDMS STANDARD Performed By: #### C BCA, BMP, 31894-8, 2777-1, C34, 11610-8, SPE, 5193-8, 5196-1, 10294-2, 34938-0, 5130-0, 04065-5, 59888-8, 6969-0, 6968-2 ####[facility] ([id number])[address], [address] [place] [address] GFR/1.73 sq M.predicted among non-blacks MDRD (S/P/Bld) [Vol rate/Area] 17 mL/min/{1.73_m2} Low >59 [facility] Comment on above: Result Comment: Repo rted eGFR is based on theCKD-EPI 2020 equation that doesnot use a race coefficient. Performed By: #### C BCA, BMP, 87235-5, 2777-1, C34, 18689-6, SPE, 5193-8, 5196-1, 53383-6, 51422-8, 5130-0, 51587-6, 67338-7, 6969-0, 6968-2 ####[facility] ([id number])[address], [address] [place] [address] Glucose [Mass/Vol] 146 mg/dL High 65-99 [facility] Comment on above: Performed By: #### C BCA, BMP, 12462-4, 2777-1, C34, 62887-8, SPE, 5193-8, 5196-1, 52037-1, 65690-9, 5130-0, 44221-0, 29220-4, 6969-0, 6968-2 ####[facility] ([id number])[address], [address], [place] [address] Potassium [Moles/Vol] 4.0 mmol/L Normal 3.5-5.0 [facility] Comment on above: Performed By: #### C BCA, BMP, 00945-8, 2777-1, C34, 48314-3, SPE, 5193-8, 5196-1, 55441-6, 74228-3, 5130-0, 94556-1, 04235-0, 6969-0, 6968-2 ####[facility] ([id number])[address], [address] [place] [address] Sodium [Moles/Vol] 139 mmol/L Normal 134-146 [facility] Comment on above: Performed By: #### C BCA, BMP, 75562-4, 2777-1, C34, 51043-4, SPE, 5193-8, 5196-1, 37130-4, 33400-0, 5130-0, 84289-6, 05741-3, 6969-0, 6968-2 ####[facility] ([id number])[address], [address] [place] [address] Urea nitrogen [Mass/Vol] 73 mg/dL High 5-27 [facility] Comment on above: Performed By: #### C BCA, BMP, 08995-6, 2777-1, C34, 76786-0, SPE, 5193-8, 5196-1, 47258-3, 88970-6, 5130-0, 97598-7, 05005-6, 6969-0, 6968-2 ####[facility] ([id number])[address], [address] [place] [address] CBC AND AUTO DIFFon 10-19-20 24 Band form neutrophils/100 WBC (Bld) 2.0 % Normal [facility] Comment on above: Performed By: #### C BCA, CMP, 53298-9, 40057-0, THYR, 2143-6, 3051-0, 86962-4 ####[facility] ([id number])[address], [address] [place] [address] Erythrocyte distribution width (RBC) [Ratio] 17.6 % High 11.5-15.0 [facility] Comment on above: Performed By: #### C BCA, CMP, 06270-1, 73952-6, THYR, 2143-6, 3051-0, 37345-0 ####[facility] ([id number])[address], [address], [place] [address] Hematocrit (Bld) [Volume fraction] 34.3 % Low 39-49 [facility] Comment on above: Performed By: #### C BCA, CMP, 70120-3, 78184-7, THYR, 2143-6, 3051-0, 80934-3 ####[facility] ([id number])[address], [address] [place] [address] Hemoglobin (Bld) [Mass/Vol] 11.1 g/dL Low 13.0-17.0 [facility] Comment on above: Performed By: #### C BCA, CMP, 05296-0, 80563-1, THYR, 2143-6, 3051-0, 16645-9 ####[facility] ([id number])[address] [address] [place] [address] Lymphocytes (Bld) [#/Vol] 1.1 10*3/uL Normal 1.0-3.5 [facility] Comment on above: Performed By: #### C BCA, CMP, 37790-4, 90194-5, THYR, 3-6, 3051-0, 36713-0 ####[facility] ([id number])[address] [address] Lymphocytes/100 WBC (Bld) 5.0 % Normal [facility] Comment on above: Performed By: #### C BCA, CMP, 49593-0, 01997-6, THYR, 2143-6, 3051-0, 79908-4 ####[facility] ([id number])[address] [address] [place] [address] MCH (RBC) [Entitic mass] 27.9 pg Normal 27-34 [facility] Comment on above: Performed By: #### C BCA, CMP, 87400-9, 26887-2, THYR, 2143-6, 3051-0, 37993-5 ####[facility] ([id number])[address], [address] [place] [address] MCHC (RBC) [Mass/Vol] 32.3 g/dL Normal 32-36 [facility] Comment on above: Performed By: #### C BCA, CMP, 43621-8, 32936-4, THYR, 2143-6, 3051-0, 21661-4 ####[facility] ([id number])[address] [address] [place] [address] MCV (RBC) [Entitic vol] 86 fL Normal 80-100 [facility] Comment on above: Performed By: #### C BCA, CMP, 85339-6, 49309-6, THYR, 2143-6, 3051-0, 44875-3 ####[facility] ([id number])[address] [address] [place] [address] Monocytes (Bld) [#/Vol] 0.7 10*3/uL Normal 0-0.9 [facility] Comment on above: Performed By: #### C BCA, CMP, 86765-9, 92332-8, THYR, 2143-6, 3051-0, 82812-1 ####[facility] ([id number])[address] [address] [place] [address] Monocytes/100 WBC (Bld) 3.0 % Normal [facility] Comment on above: Performed By: #### C BCA, CMP, 59251-5, 50367-9, THYR, 2143-6, 3051-0, 93095-1 ####[facility] ([id number])[address] [address] [place] [address] MYELOCYTE 1.0 % Normal [facility] Comment on above: Performed By: #### C BCA, CMP, 52807-6, 23779-3, THYR, 2143-6, 3051-0, 86628-8 ####[facility] ([id number])[address], [address], [place] [address] Neutrophils (Bld) [#/Vol] 19.8 10*3/uL High 1.5-6.6 [facility] Comment on above: Performed By: #### C BCA, CMP, 51532-4, 52628-0, THYR, 2143-6, 3051-0, 54130-1 ####[facility] ([id number])[address], [address] [address] Platelet mean volume (Bld) [Entitic vol] 8.4 fL Normal 7-12 [facility] Comment on above: Performed By: #### C BCA, CMP, 56507-9, 69940-2, THYR, 2143-6, 3051-0, 71838-8 ####[facility] ([id number])[address], [address], [place] [address] Platelets (Bld) [#/Vol] 154 10*3/uL Normal 150-450 [facility] Comment on above: Performed By: #### C BCA, CMP, 79142-7, 48643-6, THYR, 2143-6, 3051-0, 21695-6 ####[facility] ([id number])[address], [address], [place] [address] RBC COUNT 3.98 X10E12/L Low 4.10-5.70 [facility] Comment on above: Performed By: #### C BCA, CMP, 35516-5, 61040-0, THYR, 2143-6, 3051-0, 20227-1 ####[facility] ([id number])[address], [address], [place] [address] RBC morphology finding Nom (Bld) NORMAL Normal [facility] Comment on above: Performed By: #### C BCA, CMP, 76117-1, 97638-2, THYR, 2143-6, 3051-0, 96480-7 ####[facility] ([id number])[address], [place] [address] SEG NEUTROPHIL 89.0 % Normal [facility] Comment on above: Performed By: #### C BCA, CMP, 61260-8, 07133-0, THYR, 2143-6, 3051-0, 36351-5 ####[facility] ([id number])[address], [address], [place] [address] WBC (Bld) [#/Vol] 21.8 10*3/uL High 4.0-11.0 [facility] Comment on above: Performed By: #### C BCA, CMP, 14008-9, 83931-2, THYR, 2143-6, 3051-0, 63187-0 ####[facility] ([id number])[address], [address], [place] [address] ABSOLUTE BASOPHIL 0.0 X10E9/L Normal 0.0-0.2 [facility] Comment on above: Performed By: #### C BCA, BMP, 98630-5, 2777-1, C34, 76436-5, SPE, 5193-8, 5196-1, 12318-1, 43006-5, 5130-0, 31904-2, 45960-7, 6969-0, 6968-2 ####[facility] ([id number])[address], [address], [place] [address] ABSOLUTE NEUTROPHIL 11.7 X10E9/L High 1.5-6.6 [facility] Comment on above: Performed By: #### C BCA, BMP, 62344-8, 2777-1, C34, 90800-9, SPE, 5193-8, 5196-1, 25986-3, 46467-8, 5130-0, 02294-7, 22277-3, 6969-0, 6968-2 ####[facility] ([id number])[address], [address] [place] [address]79 Basophils/100 WBC (Bld) 0.1 % Normal [facility] Comment on above: Performed By: #### C BCA, BMP, 65824-8, 2777-1, C34, 27543-2, SPE, 5193-8, 5196-1, 37073-0, 00349-1, 5130-0, 00958-2, 90771-0, 6969-0, 6968-2 ####[facility] ([id number])[address], [address] [place] [address] Eosinophils (Bld) [#/Vol] 0.1 10*3/uL Normal 0.0-0.4 [facility] Comment on above: Performed By: #### C BCA, BMP, 82278-6, 2777-1, C34, 52357-0, SPE, 5193-8, 5196-1, 21774-2, 43352-4, 5130-0, 41768-7, 57608-6, 6969-0, 6968-2 ####[facility] ([id number])[address], [address] [place] [address] Eosinophils/100 WBC (Bld) 0.4 % Normal [facility] Comment on above: Performed By: #### C BCA, BMP, 21695-2, 2777-1, C34, 32053-0, SPE, 5193-8, 5196-1, 32270-0, 62648-7, 5130-0, 50902-9, 35647-9, 6969-0, 6968-2 ####[facility] ([id number])[address], [address] [place] [address]677 Erythrocyte distribution width (RBC) [Ratio] 17.4 % High 11.5-15.0 [facility] Comment on above: Performed By: #### C BCA, BMP, 58630-5, 2777-1, C34, 08530-2, SPE, 5193-8, 5196-1, 61737-5, 04448-2, 5130-0, 94596-7, 37336-2, 6969-0, 6968-2 ####[facility] ([id number])[address], [address] [place] [address]80 Hematocrit (Bld) [Volume fraction] 27.0 % Low 39-49 [facility] Comment on above: Performed By: #### C BCA, BMP, 17156-1, 2777-1, C34, 12690-9, SPE, 5193-8, 5196-1, 11896-4, 83997-6, 5130-0, 82224-4, 38719-4, 6969-0, 6968-2 ####[facility] ([id number])[address], [address] [place] [address]683 Hemoglobin (Bld) [Mass/Vol] 8.6 g/dL Low 13.0-17.0 [facility] Comment on above: Performed By: #### C BCA, BMP, 02056-6, 2777-1, C34, 21971-3, SPE, 5193-8, 5196-1, 27575-6, 74940-6, 5130-0, 39952-6, 42596-2, 6969-0, 6968-2 ####[facility] ([id number])[address], [address] [place] [address] Lymphocytes (Bld) [#/Vol] 0.5 10*3/uL Low 1.0-3.5 [facility] Comment on above: Performed By: #### C BCA, BMP, 27040-3, 2777-1, C34, 47510-3, SPE, 5193-8, 5196-1, 65118-9, 78840-7, 5130-0, 38387-6, 29092-2, 6969-0, 6968-2 ####[facility] ([id number])[address], [address] [place] [address]118 Lymphocytes/100 WBC (Bld) 3.6 % Normal [facility] Comment on above: Performed By: #### C BCA, BMP, 39323-5, 2777-1, C34, 23410-5, SPE, 5193-8, 5196-1, 39270-7, 22757-7, 5130-0, 20420-9, 18520-4, 6969-0, 6968-2 ####[facility] ([id number])[address] [address] [place] [address] 51776 MCH (RBC) [Entitic mass] 27.7 pg Normal 27-34 [facility] Comment on above: Performed By: #### C BCA, BMP, 85422-0, 7-1, C34, 55282-8, SPE, 5193-8, 5196-1, 75793-5, 49343-7, 5130-0, 02706-7, 31426-8, 6969-0, 6968-2 ####[facility] ([id number])[address], [address] [place] [address] 81808 MCHC (RBC) [Mass/Vol] 31.8 g/dL Low 32-36 [facility] Comment on above: Performed By: #### C BCA, BMP, 72803-0, 2777-1, C34, 63019-9, SPE, 5193-8, 5196-1, 47643-9, 60523-6, 5130-0, 08347-1, 65112-9, 6969-0, 6968-2 ####[facility] ([id number])[address], [address] [place] [address] 37954 MCV (RBC) [Entitic vol] 87 fL Normal 80-100 [facility] Comment on above: Performed By: #### C BCA, BMP, 20137-1, 2777-1, C34, 39643-0, SPE, 5193-8, 5196-1, 94513-4, 61166-8, 5130-0, 11002-0, 91818-3, 6969-0, 6968-2 ####[facility] ([id number])[address], [address] [place] [address] 49799 Monocytes (Bld) [#/Vol] 0.8 10*3/uL Normal 0-0.9 [facility] Comment on above: Performed By: #### C BCA, BMP, 08119-4, 2777-1, C34, 26455-1, SPE, 5193-8, 5196-1, 34011-4, 94762-7, 5130-0, 68866-1, 63842-8, 6969-0, 6968-2 ####[facility] ([id number])[address], [address] [place] [address] 36001 Monocytes/100 WBC (Bld) 6.4 % Normal [facility] Comment on above: Performed By: #### C BCA, BMP, 30256-4, 2777-1, C34, 44119-5, SPE, 5193-8, 5196-1, 28347-5, 82408-3, 5130-0, 32470-8, 38385-7, 6969-0, 6968-2 ####[facility] ([id number])[address], [address] [place] [address] 99028 Neutrophils/100 WBC (Bld) 89.5 % Normal [facility] Comment on above: Performed By: #### C BCA, BMP, 58242-9, 2777-1, C34, 90211-5, SPE, 5193-8, 5196-1, 25461-7, 41717-4, 5130-0, 68737-3, 63229-0, 6969-0, 6968-2 ####[facility] ([id number])[address], [address] [place] [address] 58788 Platelet mean volume (Bld) [Entitic vol] 8.2 fL Normal 7-12 [facility] Comment on above: Performed By: #### C BCA, BMP, 86011-5, 2777-1, C34, 61138-7, SPE, 5193-8, 5196-1, 27279-4, 83678-4, 5130-0, 41997-5, 14041-4, 6969-0, 6968-2 ####[facility] ([id number])[address], [address] [place] [address] 12681 Platelets (Bld) [#/Vol] 95 10*3/uL Low 150-450 [facility] Comment on above: Performed By: #### C BCA, BMP, 11129-8, 2777-1, C34, 51790-5, SPE, 5193-8, 5196-1, 63117-2, 14509-0, 5130-0, 92940-6, 15058-0, 6969-0, 6968-2 ####[facility] ([id number])[address], [address] [place] [address] 60933 RBC COUNT 3.10 X10E12/L Low 4.10-5.70 [facility] Comment on above: Performed By: #### C BCA, BMP, 84098-9, 2777-1, C34, 49683-1, SPE, 5193-8, 5196-1, 56422-7, 34498-9, 5130-0, 66871-2, 23837-7, 6969-0, 6968-2 ####[facility] ([id number])[address] [address] WBC (Bld) [#/Vol] 13.1 10*3/uL High 4.0-11.0 [facility] Comment on above: Performed By: #### C BCA, BMP, 85209-3, 2777-1, C34, 48456-0, SPE, 5193-8, 5196-1, 54732-0, 18180-9, 5130-0, 10568-2, 41816-3, 6969-0, 6968-2 ####[facility] ([id number])[address] [address] COMPLEMENT PROFILEon 024 COMPLEMENT C3 73 mg/dL Low 86-184 [facility] Comment on above: Performed By: #### C BCA, BMP, 94367-8, 2777-1, C34, 49589-1, SPE, 5193-8, 5196-1, 19935-9, 56063-5, 5130-0, 25280-2, 16571-4, 6969-0, 6968-2 ####[facility] ([id number])[address], [address] [place] [address] 32558 COMPLEMENT C4 26 mg/dL Normal 16-47 [facility] Comment on above: Performed By: #### C BCA, BMP, 17461-8, 2777-1, C34, 69600-5, SPE, 5193-8, 5196-1, 45965-5, 75936-2, 5130-0, 46679-1, 62946-4, 6969-0, 6968-2 ####[facility] ([id number])[address], [address] [place] [address] COMPREHENSIVE METABOLIC PANE Jonathan 08-21-2024 Albumin [Mass/Vol] 2.9 g/dL Low 3.2-5.3 [facility] Comment on above: Performed By: #### C BCA, CMP, 55246-8, 42177-8, THYR, 2143-6, 3051-0, 02852-2 ####[facility] ([id number])[address], [address], [place] [address] ALP [Catalytic activity/Vol] 83 U/L Normal 39-130 [facility] Comment on above: Performed By: #### C BCA, CMP, 65012-0, 05121-0, THYR, 2143-6, 3051-0, 64117-4 ####[facility] ([id number])[address], [address], [place] [address] ALT [Catalytic activity/Vol] 5 U/L Normal 0-40 [facility] Comment on above: Performed By: #### C BCA, CMP, 73463-6, 76844-1, THYR, 2143-6, 3051-0, 60788-1 ####[facility] ([id number])[address], [address], [place] [address] Anion gap [Moles/Vol] 18 mmol/L High 5-15 [facility] Comment on above: Performed By: #### C BCA, CMP, 00039-2, 94275-2, THYR, 2143-6, 3051-0, 36451-2 ####[facility] ([id number])[address], [address], [place] [address] AST [Catalytic activity/Vol] 12 U/L Normal 0-41 [facility] Comment on above: Performed By: #### C BCA, CMP, 07179-8, 32534-2, THYR, 2143-6, 3051-0, 91019-6 ####[facility] ([id number])[address], [address], [place] [address] Bilirubin [Mass/Vol] 0.6 mg/dL Normal 0.3-1.2 [facility] Comment on above: Performed By: #### C BCA, CMP, 25639-0, 52418-2, THYR, 2143-6, 3051-0, 32897-9 ####[facility] ([id number])[address], [address], [place] [address] Calcium [Mass/Vol] 8.9 mg/dL Normal 8.5-10.5 [facility] Comment on above: Performed By: #### C BCA, CMP, 24399-8, 68995-3, THYR, 2143-6, 3051-0, 67649-2 ####[facility] ([id number])[address], [address], [place] [address] Chloride [Moles/Vol] 106 mmol/L Normal 98-109 [facility] Comment on above: Performed By: #### C BCA, CMP, 62257-0, 86727-0, THYR, 2143-6, 3051-0, 83471-5 ####[facility] ([id number])[address], [address], [place] [address] CO2 [Moles/Vol] 19 mmol/L Low 22-32 [facility] Comment on above: Performed By: #### C BCA, CMP, 75976-5, 04490-9, THYR, 3-6, 3051-0, 21556-6 ####[facility] ([id number])[address], [address], [place] [address] Creatinine [Mass/Vol] 3.84 mg/dL High 0.60-1.30 [facility] Comment on above: Result Comment: METH OD TRACEABLE TO IDMS STANDARD Performed By: #### C BCA, CMP, 92823-7, 65616-5, THYR, 3-6, 3051-0, 92477-1 ####[facility] ([id number])[address] [address], [place] [address] GFR/1.73 sq M.predicted among non-blacks MDRD (S/P/Bld) [Vol rate/Area] 17 mL/min/{1.73_m2} Low >59 [facility] Comment on above: Result Comment: Repo rted eGFR is based on theCKD-EPI 2020 equation that doesnot use a race coefficient. Performed By: #### C BCA, CMP, 34955-3, 19653-3, THYR, 2143-6, 3051-0, 72177-7 ####[facility] ([id number])[address], [address], [place] [address] Glucose [Mass/Vol] 115 mg/dL High 65-99 [facility] Comment on above: Performed By: #### C BCA, CMP, 05743-1, 03898-9, THYR, 2143-6, 3051-0, 61749-8 ####[facility] ([id number])[address], [address], [place] [address] Potassium [Moles/Vol] 4.6 mmol/L Normal 3.5-5.0 [facility] Comment on above: Performed By: #### C BCA, CMP, 61549-4, 51188-4, THYR, 2143-6, 3051-0, 53449-2 ####[facility] ([id number])[address], [address], [place] [address] Protein [Mass/Vol] 6.0 g/dL Normal 6.0-8.0 [facility] Comment on above: Performed By: #### C BCA, CMP, 22277-8, 05962-4, THYR, 2143-6, 3051-0, 79999-4 ####[facility] ([id number])[address] [address], [place] [address] Sodium [Moles/Vol] 143 mmol/L Normal 134-146 [facility] Comment on above: Performed By: #### C BCA, CMP, 42709-3, 25646-0, THYR, 2143-6, 3051-0, 66630-7 ####[facility] ([id number])[address], [address], [place] [address] Urea nitrogen [Mass/Vol] 69 mg/dL High 5-27 [facility] Comment on above: Performed By: #### C BCA, CMP, 57328-9, 50463-7, THYR, 2143-6, 3051-0, 17224-9 ####[facility] ([id number])[address] [place] [address], [address] [address] Calcium.ionized (Bld) [Mass/ Vol]on 08-21-2024 IONIZED CALCIUM 4.8 mg/dL Normal 4.5-5.3 [facility] Comment on above: Performed By: #### 3 8230-9 ####[facility] ([id number])[address] [place] [address], [address] [place] [address] Clinical Pathologyon 024 Clinical Pathology Normal [facility] Comment on above: Result Comment: [facility] [address] [place] [address] Clinical Pathology ReportPatient Name:SHAHEEN PRICE:1960 (Age: 63)Gender:MTaken:08/21/2024eported:08/30/2024hysician(s):Clyde Fox MD ([phone])Copy To: Rec. #:[id number]: #[id number] Pathologic DiagnosisPer [facility] Everywhere, anti-E and a cold antibody were previously detected by [place], [place] in a sample collected in 1999.Anti-E, a clinically significant antibody against the corresponding Rh blood group system antigen is detected in the current sample. Approximately 70% of donor units are expected to be negative for the E antigen. Additional time will be needed for an antiglobulin crossmatch. Report Electronically Signed Out/08/30/2024Suad Vyas MDInterpretation performed at [facility], [address] [place] [address], License number: [id number].TRANSFUSION MEDICINE CONSULTATIONASSAY: Antiglobulin testing ( Valerie )DATA/OBSERVATIONS: Blood type: O positive Direct antiglobulin test (LISA): NA Elution: NA Indirect antiglobulin test (IAT): Positive Antibody identification: Anti-ESpecimen(s) Received Valerie for CPFee Codes(s):1; [address] Cortisol [Mass/Vol]on 2023 CORTISOL 23.4 ug/dL Normal [facility] Comment on above: Result Comment: Due to the diurnal variation of cortisollevels in normal subjects, all cortisolmeasurements should be referenced to thetime of day of sample collection.AM Cortisol Age>=6 6.7-22.4 ug/dLPM Cortisol Age>=6 <10 ug/dL Performed By: #### 2 143-6, 25268-0 ####[facility] ([id number])[address] [place] [address], [address] [address] CORTISOL 30.4 ug/dL Normal [facility] Comment on above: Result Comment: Due to the diurnal variation of cortisollevels in normal subjects, all cortisolmeasurements should be referenced to thetime of day of sample collection.AM Cortisol Age>=6 6.7-22.4 ug/dLPM Cortisol Age>=6 <10 ug/dL Performed By: #### C BCA, CMP, 21013-1, 18671-0, THYR, 2143-6, 3051-0, 16637-8 ####[facility] ([id number])[address] [place] [address], [address] [address] DNA double strand Ab Qn (S)o n 08-21-2024 DOUBLE STRANDED DNA 1 IU/ML Normal <5 [facility] Comment on above: Result Comment: ---- ------Interpretation--------<5 Negative5-9 Indeterminate>9 Positive Performed By: #### C BCA, BMP, 02809-4, 2777-1, C34, 93874-0, SPE, 5193-8, 5196-1, 55144-9, 37202-8, 5130-0, 70054-5, 76098-1, 6969-0, 6968-2 ####[facility] ([id number])[address], [address], [place] [address] ELECTROLYTESon 08-21-2024 Anion gap [Moles/Vol] 12 mmol/L Normal 5-15 [facility] Comment on above: Performed By: #### E LEC ####[facility] ([id number])[address], [address], [place] [address] Chloride [Moles/Vol] 107 mmol/L Normal 98-109 [facility] Comment on above: Performed By: #### E LEC ####[facility] ([id number])[address], [address], [place] [address] CO2 [Moles/Vol] 24 mmol/L Normal 22-32 [facility] Comment on above: Performed By: #### E LEC ####[facility] ([id number])[address], [address], [place] [address] Potassium [Moles/Vol] 4.1 mmol/L Normal 3.5-5.0 [facility] Comment on above: Performed By: #### E LEC ####[facility] ([id number])[address], [address], [place] [address] Sodium [Moles/Vol] 143 mmol/L Normal 134-146 [facility] Comment on above: Performed By: #### E LEC ####[facility] ([id number])[address], [address], [place] [address] Anion gap [Moles/Vol] 6 mmol/L Normal 5-15 [facility] Comment on above: Performed By: #### E LEC, FEPR, 2275-4, 2284-06, 2132-07 ####[facility] ([id number])[address], [address], [place] [address] Chloride [Moles/Vol] 109 mmol/L Normal 98-109 [facility] Comment on above: Performed By: #### E LEC, FEPR, 2275-4, 2284-06, 2132-07 ####[facility] ([id number])[address], [address], [place] [address] CO2 [Moles/Vol] 24 mmol/L Normal 22-32 [facility] Comment on above: Performed By: #### E LEC, FEPR, 2276-02, 2284-06, 2132-07 ####[facility] ([id number])[address], [address], [place] [address] Potassium [Moles/Vol] 3.8 mmol/L Normal 3.5-5.0 [facility] Comment on above: Performed By: #### E LEC, FEPR, 2276-02, 2284-06, 2132-07 ####[facility] ([id number])[address], [address], [place] [address] Sodium [Moles/Vol] 139 mmol/L Normal 134-146 [facility] Comment on above: Performed By: #### E LEC, FEPR, 2275-4, 2284-06, 2132-07 ####[facility] ([id number])[address], [address], [place] [address] FERRITINon 08-21-2024 Ferritin [Mass/Vol] 507 ng/mL High 24-336 [facility] Comment on above: Performed By: #### E LEC, FEPR, 2275-, 2284-06, 2132-07 ####[facility] ([id number])[address], [address], [place] [address] FREE T3on 08-21-2024 Free T3 [Mass/Vol] 2.39 pg/mL Low 2.50-3.90 [facility] Comment on above: Performed By: #### C BCA, CMP, 20099-2, 94802-5, THYR, 2143-6, 3051-0, 94709-3 ####[facility] ([id number])[address] [facility], [address] [place] [address] Folate [Mass/Vol]on 08-21-20 24 FOLIC ACID 5.6 ng/mL Low >5.8 [facility] Comment on above: Result Comment: NEW REFERENCE RANGE Performed By: #### E LEC, FEPR, 2276-4, 2284-8, 2131-9 ####[facility] ([id number])[address] [facility], [address] [place] [address] Glomerular basement membrane IgG Qn (S)on 08-21-2024 GBM IgG Ab <0.2 Normal <1.0 [facility] Comment on above: Performed By: #### C BCA, BMP, 85117-6, 2776-1, C34, 17321-8, SPE, 5193-8, 5196-1, 14893-9, 87635-1, 5130-0, 27281-4, 59425-0, 6969-0, 6968-2 ####[facility] ([id number])[address] [facility], [address] [place] [address] HBV surface Ab IA Qnon 08-21 Anti HBs quant. <8.00 Normal [facility] Comment on above: Result Comment: Vacc inated: >=12mIU/mL, Positive (Immune)Unvaccinated: <8mIU/mL, Negative (Not Immune)8-11.99 mIU/mL: Indeterminate,(Considered Not Immune) Performed By: #### C BCA, BMP, 68574-8, 2777-1, C34, 05175-2, SPE, 5193-8, 5196-1, 67565-9, 00268-8, 5130-0, 39979-1, 84865-1, 6969-0, 6968-2 ####[facility] ([id number])[address], [address] [place] [address] HBV surface Ag IA Qlon 08-21 HEPATITIS B SURF AG Negative Normal NEG [facility] Comment on above: Performed By: #### C BCA, BMP, 29022-5, 2777-1, C34, 38416-7, SPE, 5193-8, 5196-1, 45092-9, 00598-4, 5130-0, 20555-8, 52739-9, 6969-0, 6968-2 ####[facility] ([id number])[address], [address] [place] [address] HCV Ab IA on 08-21-2024 ANTI HCV W/PCR REFLX Non-Reactive Normal NRCT [facility] Comment on above: Result Comment: If r ecent infection suspected, recommendrepeat testing (>2 months).Ofznol-av-tusflk ratio is <0.80. Performed By: #### C BCA, BMP, 55866-1, 2777-1, C34, 29034-4, SPE, 5193-8, 5196-1, 00157-4, 20335-9, 5130-0, 47236-0, 78769-5, 6969-0, 6968-2 ####[facility] ([id number])[address], [address] [place] [address] IRON PROFILEon 08-21-2024 Iron [Mass/Vol] 49 ug/dL Low 50-212 [facility] Comment on above: Performed By: #### E LEC, FEPR, 2276-4, 2284-8, 2132-9 ####[facility] ([id number])[address], [address], [place] [address] IRON BINDING <105 Low 250-425 [facility] Comment on above: Performed By: #### E LEC, FEPR, 2275-4, 2283-8, 2132-07 ####[facility] ([id number])[address], [address] [place] [address] IRON SATURATION >47 Normal 20-50 [facility] Comment on above: Performed By: #### E LEC, FEPR, 2275-4, 2283-8, 2132-07 ####[facility] ([id number])[address], [address] [place] [address] Lactate (P oc) [Moles/Vol]o n 08-21-2024 LACTATE W/REFLEX 4.6 mmol/L Critically high 0.4-2.0 [facility] Comment on above: Performed By: #### C BCA, CMP, 82774-3, 37944-2, THYR, 2143-6, 3051-0, 69924-8 ####[facility] ([id number])[address] [place] [address] MAGNESIUMon 08-21-2024 Magnesium [Mass/Vol] 2.2 mg/dL Normal 1.8-2.6 [facility] Comment on above: Performed By: #### C BCA, CMP, 02053-7, 23696-4, THYR, 2143-6, 3051-0, 11632-6 ####[facility] ([id number])[address] [address] [place] [address] Magnesium [Mass/Vol] 2.4 mg/dL Normal 1.8-2.6 [facility] Comment on above: Performed By: #### C BCA, BMP, 27150-3, 2777-1, C34, 37495-7, SPE, 5193-8, 5196-1, 65056-4, 35049-8, 5130-0, 52447-8, 50237-3, 6969-0, 6968-2 ####[facility] ([id number])[address], [address] [place] [address] Magnesium Ionized ISE (Bld) [Moles/Vol]on 08-21-2024 Magnesium [Moles/Vol] 0.62 mmol/L Normal 0.45-0.74 [facility] Comment on above: Result Comment: NEW REFERENCE RANGE Performed By: #### 7 3572-0 ####[facility] ([id number])[address], [address] [place] [address] Magnesium [Moles/Vol] 0.73 mmol/L Normal 0.45-0.74 [facility] Comment on above: Result Comment: NEW REFERENCE RANGE Performed By: #### 7 3572-0 ####[facility] ([id number])[address] [address] Myeloperoxidase Ab Qn (S)on 08-21-2024 Myeloperoxidase Ab <0.2 Normal <1.0 [facility] Comment on above: Performed By: #### C BCA, BMP, 62862-8, 2777-1, C34, 93117-8, SPE, 5193-8, 5196-1, 21898-8, 11443-2, 5130-0, 55183-3, 02249-9, 6969-0, 6968-2 ####[facility] ([id number])[address] [address] Nuclear Ab IA Ql (S)on 08-21 DEB Screen w/reflex Negative Normal NEG [facility] Comment on above: Result Comment: Test ing performed using multiplex flowimmunoassay. Eleven different antigensassociated with systemic autoimmunediseases (dsDNA,Sm,Sm/EMBLEM MAKER,EMBLEM MAKER,Chromatin,SSA,SSB,Jena-1,Scl70,Ribo P,Centromere B)are included in this screening test. Performed By: #### C BCA, BMP, 06022-5, 2777-1, C34, 59290-3, SPE, 5193-8, 5196-1, 26879-7, 07476-7, 5130-0, 41632-1, 60367-1, 6969-0, 6968-2 ####[facility] ([id number])[address], [address], [place] [address] PHOSPHORUSon 08-21-2024 Phosphate [Mass/Vol] 6.8 mg/dL High 2.4-4.9 [facility] Comment on above: Performed By: #### C BCA, BMP, 44565-6, 2777-1, C34, 99706-2, SPE, 5193-8, 5196-1, 74717-5, 52778-4, 5130-0, 51176-5, 24672-9, 6969-0, 6968-2 ####[facility] ([id number])[address], [address] [place] [address] Proteinase 3 Ab Qn (S)on Proteinase 3 IgG Ab <0.2 Normal <1.0 [facility] Comment on above: Performed By: #### C BCA, BMP, 30445-2, 2777-1, C34, 97216-3, SPE, 5193-8, 5196-1, 38319-8, 09342-9, 5130-0, 23972-6, 20061-2, 6969-0, 6968-2 ####[facility] ([id number])[address], [address] [place] [address] Rheumatoid factor Nephelomet ry Qn (S)on 08-21-2024 RHEUMATOID FACTOR 12 IU/mL Normal <20 [facility] Comment on above: Performed By: #### C BCA, BMP, 62578-4, 2777-1, C34, 18724-8, SPE, 5193-8, 5196-1, 10254-8, 98746-3, 5130-0, 77703-8, 01300-8, 6969-0, 6968-2 ####[facility] ([id number])[address], [address], [place] [address] SERUM PROTEIN ELECTROPHORESI Son 08-21-2024 Albumin [Mass/Vol] 2.2 g/dL Low 3.4-5.3 [facility] Comment on above: Performed By: #### C BCA, BMP, 53257-0, 2777-1, C34, 37141-9, SPE, 5193-8, 5196-1, 93889-8, 76954-2, 5130-0, 89786-7, 79786-8, 6969-0, 6968-2 ####[facility] ([id number])[address], [address] [place] [address] ALPHA 1 GLOBULIN 0.4 g/dL Normal 0.1-0.4 [facility] Comment on above: Performed By: #### C BCA, BMP, 67678-2, 2777-1, C34, 36481-9, SPE, 5193-8, 5196-1, 16337-8, 84016-4, 5130-0, 58580-4, 47875-2, 6969-0, 6968-2 ####[facility] ([id number])[address], [place] [address] ALPHA 2 GLOBULIN 0.4 g/dL Normal 0.4-1.1 [facility] Comment on above: Performed By: #### C BCA, BMP, 17286-6, 2777-1, C34, 16276-3, SPE, 5193-8, 5196-1, 03081-0, 29909-2, 5130-0, 83113-2, 82625-8, 6969-0, 6968-2 ####[facility] ([id number])[address], [address], [place] [address] BETA GLOBULIN 0.5 g/dL Normal 0.5-1.2 [facility] Comment on above: Performed By: #### C BCA, BMP, 49044-4, 2777-1, C34, 54113-3, SPE, 5193-8, 5196-1, 06236-2, 24864-2, 5130-0, 96540-9, 96143-7, 6969-0, 6968-2 ####[facility] ([id number])[address], [address] [place] [address] GAMMA GLOBULIN 1.0 g/dL Normal 0.5-1.6 [facility] Comment on above: Performed By: #### C BCA, BMP, 54158-2, 2777-1, C34, 62747-7, SPE, 5193-8, 5196-1, 64624-2, 09539-0, 5130-0, 99971-7, 10519-3, 6969-0, 6968-2 ####[facility] ([id number])[address], [address] [place] [address] PROT. ELECTROPHORESIS INTERP Unremarkable protein distribution, no monoclonal bands. Normal [facility] Comment on above: Performed By: #### C BCA, BMP, 58639-4, 2777-1, C34, 28572-6, SPE, 5193-8, 5196-1, 38121-0, 64891-5, 5130-0, 20581-1, 78352-2, 6969-0, 6968-2 ####[facility] ([id number])[address], [address] [place] [address] Protein [Mass/Vol] 4.4 g/dL Low 6.0-8.0 [facility] Comment on above: Performed By: #### C BCA, BMP, 71580-2, 2777-1, C34, 89765-5, SPE, 5193-8, 5196-1, 47668-6, 87519-2, 5130-0, 77181-9, 79808-9, 6969-0, 6968-2 ####[facility] ([id number])[address] [place] [address] Morrison extractable nuclear Ig G Qn (S)on 08-21-2024 ANTI-MORRISON AB IGG <0.2 Normal <1.0 [facility] Comment on above: Performed By: #### C BCA, BMP, 46884-8, 2777-1, C34, 77068-9, SPE, 5193-8, 5196-1, 84615-9, 87555-5, 5130-0, 96413-2, 79895-6, 6969-0, 6968-2 ####[facility] ([id number])[address] [place] [address] THYROID PROFILEon 08-21-2024 Free T4 [Mass/Vol] 0.98 ng/dL Normal 0.61-1.60 [facility] Comment on above: Performed By: #### C BCA, CMP, 59801-5, 12645-8, THYR, 2143-6, 3051-0, 66820-5 ####[facility] ([id number])[address] [address] [place] [address] TSH 1.42 uIU/mL Normal 0.49-4.67 [facility] Comment on above: Performed By: #### C BCA, CMP, 97574-0, 96147-8, THYR, 2143-6, 3051-0, 40625-2 ####[facility] ([id number])[address], [address] [place] [address] Troponin I.cardiac High sens itivity method [Mass/Vol]on 08-21-2024 1 HOUR TROP I, HIGH SENSITIVITY 20 ng/L Normal <21 [facility] Comment on above: Performed By: #### 2 143-6, 91070-6 ####[facility] ([id number])[address], [address] [place] [address] TROPONIN I, HIGH SENSITIVITY 11 ng/L Normal <21 [facility] Comment on above: Performed By: #### C BCA, CMP, 35684-0, 74301-8, THYR, 2143-6, 3051-0, 92312-9 ####[facility] ([id number])[address], [place] [address] VITAMIN B12on 08-21-2024 Cobalamin (Vitamin B12) [Mass/Vol] 217 pg/mL Normal 180-914 [facility] Comment on above: Performed By: #### E LEC, FEPR, 2276-4, 2284-8, 2131-9 ####[facility] ([id number])[address], [place] [address] XR CHEST 1 VWon 08-21-2024 XR CHEST 1 VW Normal [facility] ARTERIAL BLOOD GASon 024 NANCY'S TEST Normal [facility] Comment on above: Performed By: #### A BG ####[facility] ([id number])[address] [facility] [place] [address] BASE,DEFICIT 10.0 MMOL/L High 0.0-2.0 [facility] Comment on above: Performed By: #### A BG ####[facility] ([id number])[address] [facility] [place] [address] Body temperature 98.6 [degF] Normal 37.0 [facility] Comment on above: Performed By: #### A BG ####[facility] ([id number])[address] [facility] [place] [address] HCO3 (Bld) [Moles/Vol] 17.7 mmol/L Low 22-26 [facility] Comment on above: Performed By: #### A BG ####[facility] ([id number])2141 [facility] [place] [address] INSP. O2 CONC. 40 % Normal [facility] Comment on above: Performed By: #### A BG ####[facility] ([id number])[address] [facility] [place] [address] Oxygen (Bld) [Partial pressure] 93 mm[Hg] Normal 80-100 [facility] Comment on above: Performed By: #### A BG ####[facility] ([id number])[address] [facility] [place] [address] Oxygen saturation in Blood 95.0 % Normal >90 [facility] [facility] Comment on above: Performed By: #### A BG ####[facility] ([id number])[address] [facility] [place] [address] OXYGEN SOURCE NPPV Normal [facility] Comment on above: Performed By: #### A BG ####[facility] ([id number])[address] [facility] [place] [address] PCO2 49.9 MMHG High 35-45 [facility] Comment on above: Performed By: #### A BG ####[facility] ([id number])[address] [facility] [place] [address] pH (Bld) 7.158 [pH] Critically low 7.350-7.450 [facility] Comment on above: Performed By: #### A BG ####[facility] ([id number])[address] [facility] [place] [address] SAMPLE SITE Andreea Normal [facility] Comment on above: Performed By: #### A BG ####[facility] ([id number])[address] [facility] [place] [address] SAMPLE TYPE ARTERIAL Normal [facility] Comment on above: Performed By: #### A BG ####[facility] ([id number])[address] [facility] [place] [address] NANCY'S TEST Normal [facility] Comment on above: Performed By: #### A BG ####[facility] ([id number])[address] [facility] [place] [address] BASE,DEFICIT 12.0 MMOL/L High 0.0-2.0 [facility] Comment on above: Performed By: #### A BG ####[facility] ([id number])[address] [facility] [place] [address] Body temperature 98.6 [degF] Normal 37.0 [facility] Comment on above: Performed By: #### A BG ####[facility] ([id number])2[address] [facility] [place] [address] HCO3 (Bld) [Moles/Vol] 16.5 mmol/L Low 22-26 [facility] Comment on above: Performed By: #### A BG ####[facility] ([id number])[address] [place] [address] INSP. O2 CONC. 40 % Normal [facility] Comment on above: Performed By: #### A BG ####[facility] ([id number])[address] [facility] [place] [address] Oxygen (Bld) [Partial pressure] 104 mm[Hg] High 80-100 [facility] Comment on above: Performed By: #### A BG ####[facility] ([id number])[address] [facility] [place] [address] Oxygen saturation in Blood 95.0 % Normal >90 [facility] Comment on above: Performed By: #### A BG ####[facility] ([id number])[address] [place] [address] OXYGEN SOURCE NPPV Normal [facility] Comment on above: Performed By: #### A BG ####[facility] ([id number])[address] [place] [address] PCO2 50.8 MMHG High 35-45 [facility] Comment on above: Performed By: #### A BG ####[facility] ([id number])2141 [place] [address] pH (Bld) 7.120 [pH] Critically low 7.350-7.450 [facility] Comment on above: Performed By: #### A BG ####[facility] ([id number])2141 [place] [address] SAMPLE SITE Andreea Normal [facility] Comment on above: Performed By: #### A BG ####[facility] ([id number])2141 [place] [address] SAMPLE TYPE ARTERIAL Normal [facility] Comment on above: Performed By: #### A BG ####[facility] ([id number])2141 [place] [address] NANCY'S TEST Normal [facility] Comment on above: Performed By: #### A BG ####[facility] ([id number])2141 [place] [address] BASE,DEFICIT 12.0 MMOL/L High 0.0-2.0 [facility] Comment on above: Performed By: #### A BG ####[facility] ([id number])2141 [place] [address] Body temperature 98.6 [degF] Normal 37.0 [facility] Comment on above: Performed By: #### A BG ####[facility] ([id number])2141 [place] [address] HCO3 (Bld) [Moles/Vol] 18.4 mmol/L Low 22-26 [facility] Comment on above: Performed By: #### A BG ####[facility] ([id number])2141 [place] [address] INSP. O2 CONC. 36 % Normal [facility] Comment on above: Performed By: #### A BG ####[facility] ([id number])[address] [facility] [place] [address] Oxygen (Bld) [Partial pressure] 71 mm[Hg] Low 80-100 [facility] Comment on above: Performed By: #### A BG ####[facility] ([id number])2[address] [facility] [address] Oxygen saturation in Blood 84.0 % Low >90 [facility] Comment on above: Performed By: #### A BG ####[facility] ([id number])[address] [facility] [place] [address] OXYGEN SOURCE NC Normal [facility] Comment on above: Performed By: #### A BG ####[facility] ([id number])[address] [facility] [address] PCO2 67.4 MMHG High 35-45 [facility] Comment on above: Performed By: #### A BG ####[facility] ([id number])[address] [facility] [place] [address] pH (Bld) 7.044 [pH] Critically low 7.350-7.450 [facility] Comment on above: Performed By: #### A BG ####[facility] ([id number])[address] [facility] [place] [address] SAMPLE SITE Andreea Normal [facility] Comment on above: Performed By: #### A BG ####[facility] ([id number])[address] [facility] [place] [address] SAMPLE TYPE ARTERIAL Normal [facility] Comment on above: Performed By: #### A BG ####[facility] ([id number])2[address] [facility] [place] [address] ARTERIAL CODEon 08-20-2024 NANCY'S TEST Pass Normal [facility] Comment on above: Performed By: #### I CODE ####[facility] ([id number])2141 [facility] [place] [address] BASE,DEFICIT 12.0 MMOL/L High 0.0-2.0 [facility] Comment on above: Performed By: #### I CODE ####[facility] ([id number])2[address] [facility] [place] [address] Body temperature 98.6 [degF] Normal 37.0 [facility] Comment on above: Performed By: #### I CODE ####[facility] ([id number])2141 [place] [address] Glucose [Mass/Vol] 89 mg/dL Normal 65-99 [facility] Comment on above: Performed By: #### I CODE ####[facility] ([id number])2141 [place] [address] HCO3 (Bld) [Moles/Vol] 15.6 mmol/L Low 22-26 [facility] Comment on above: Performed By: #### I CODE ####[facility] ([id number])2141 [facility] [place] [address] Hematocrit (Bld) [Volume fraction] 24 % Low 39-49 [facility] Comment on above: Performed By: #### I CODE ####[facility] ([id number])2141 [place] [address] INSP. O2 CONC. 28 % Normal [facility] Comment on above: Performed By: #### I CODE ####[facility] ([id number])[address] [facility] [place] [address] Oxygen (Bld) [Partial pressure] 77 mm[Hg] Low 80-100 [facility] Comment on above: Performed By: #### I CODE ####[facility] ([id number])2141 [place] [address] Oxygen saturation in Blood 91.0 % Normal >90 [facility] Comment on above: Performed By: #### I CODE ####[facility] ([id number])2141 [place] [address] OXYGEN SOURCE [place] [facility] Comment on above: Performed By: #### I CODE ####[facility] ([id number])2141 [place] [address] PCO2 43.4 MMHG Normal 35-45 [facility] Comment on above: Performed By: #### I CODE ####[facility] ([id number])2141 [place] [address] pH (Bld) 7.162 [pH] Critically low 7.350-7.450 [facility] Comment on above: Performed By: #### I CODE ####[facility] ([id number])2141 [place] [address] PORTABLE ICA 5.1 mg/dL Normal 4.5-5.3 [facility] Comment on above: Performed By: #### I CODE ####[facility] ([id number])2141 [place] [address] Potassium [Moles/Vol] 4.5 mmol/L Normal 3.5-5.0 [facility] Comment on above: Performed By: #### I CODE ####[facility] ([id number])2141 [place] [address] SAMPLE SITE LRad Normal [facility] Comment on above: Performed By: #### I CODE ####[facility] ([id number])2141 [place] [address] SAMPLE TYPE ARTERIAL Normal [facility] Comment on above: Performed By: #### I CODE ####[facility] ([id number])2141 [place] [address] Sodium [Moles/Vol] 140 mmol/L Normal 134-146 [facility] Comment on above: Performed By: #### I CODE ####[facility] ([id number])[address] [place] [address] BASIC METABOLIC PANLon 08-20 Anion gap [Moles/Vol] 9 mmol/L Normal 5-15 [facility] Comment on above: Performed By: #### B MP ####[facility] ([id number])[address], [place] [address] Calcium [Mass/Vol] 7.9 mg/dL Low 8.5-10.5 [facility] Comment on above: Performed By: #### B MP ####[facility] ([id number])[address], [address], [place] [address] Chloride [Moles/Vol] 112 mmol/L High 98-109 [facility] Comment on above: Performed By: #### B MP ####[facility] ([id number])[address] [address], [place] [address] CO2 [Moles/Vol] 19 mmol/L Low 22-32 [facility] Comment on above: Performed By: #### B MP ####[facility] ([id number])[address] [address] [address] Creatinine [Mass/Vol] 3.77 mg/dL High 0.60-1.30 [facility] Comment on above: Result Comment: METH OD TRACEABLE TO IDMS STANDARD Performed By: #### B MP ####[facility] ([id number])[address], [address] [address] GFR/1.73 sq M.predicted among non-blacks MDRD (S/P/Bld) [Vol rate/Area] 17 mL/min/{1.73_m2} Low >59 [facility] Comment on above: Result Comment: Repo rted eGFR is based on theCKD-EPI 2020 equation that doesnot use a race coefficient. Performed By: #### B MP ####[facility] ([id number])[address], [address] [address] Glucose [Mass/Vol] 131 mg/dL High 65-99 [facility] Comment on above: Performed By: #### B MP ####[facility] ([id number])[address], [address], [place] [address] Potassium [Moles/Vol] 4.5 mmol/L Normal 3.5-5.0 [facility] Comment on above: Performed By: #### B MP ####[facility] ([id number])[address], [address], [place] [address] Sodium [Moles/Vol] 140 mmol/L Normal 134-146 [facility] Comment on above: Performed By: #### B MP ####[facility] ([id number])[address] [address], [place] [address] Urea nitrogen [Mass/Vol] 73 mg/dL High 5-27 [facility] Comment on above: Performed By: #### B MP ####[facility] ([id number])[address], [address] [address] BLOOD CULTUREon 08-20-2024 Bacteria identified Aer cx Nom (Bld) CULTURE RESULTS NO GROWTH 5 DAYS Normal [facility] Bacteria identified Aer cx Nom (Bld) CULTURE RESULTS NO GROWTH 5 DAYS Normal [facility] CBC AND AUTO DIFFon 08-20-20 24 ABSOLUTE BASOPHIL 0.0 X10E9/L Normal 0.0-0.2 [facility] Comment on above: Performed By: #### P INR, 13987-8, CBCA, 73580-8 ####[facility] ([id number])[address], [address], [place] [address] ABSOLUTE NEUTROPHIL 7.8 X10E9/L High 1.5-6.6 [facility] Comment on above: Performed By: #### P INR, 28714-1, CBCA, 85111-9 ####[facility] ([id number])[address], [address], [place] [address] Basophils/100 WBC (Bld) 0.2 % Normal [facility] Comment on above: Performed By: #### P INR, 15977-2, CBCA, 95932-8 ####[facility] ([id number])[address], [address], [place] [address] Eosinophils (Bld) [#/Vol] 0.1 10*3/uL Normal 0.0-0.4 [facility] Comment on above: Performed By: #### P INR, 14899-6, CBCA, 85776-6 ####[facility] ([id number])[address] [address] [address] Eosinophils/100 WBC (Bld) 0.8 % Normal [facility] Comment on above: Performed By: #### P INR, 63544-3, CBCA, 34337-6 ####[facility] ([id number])[address] [address] [place] [address] Erythrocyte distribution width (RBC) [Ratio] 17.8 % High 11.5-15.0 [facility] Comment on above: Performed By: #### P INR, 31784-3, CBCA, 53708-9 ####[facility] ([id number])[address], [address], [place] [address] Hematocrit (Bld) [Volume fraction] 25.4 % Low 39-49 [facility] Comment on above: Performed By: #### P INR, 87666-8, CBCA, 55693-0 ####[facility] ([id number])[address], [address] [place] [address] Hemoglobin (Bld) [Mass/Vol] 8.2 g/dL Low 13.0-17.0 [facility] Comment on above: Performed By: #### P INR, 73635-1, CBCA, 22546-2 ####[facility] ([id number])[address] [address] Lymphocytes (Bld) [#/Vol] 0.5 10*3/uL Low 1.0-3.5 [facility] Comment on above: Performed By: #### P INR, 71939-9, CBCA, 40276-9 ####[facility] ([id number])[address], [address] [address] Lymphocytes/100 WBC (Bld) 5.6 % Normal [facility] Comment on above: Performed By: #### P INR, 15668-8, CBCA, 16114-6 ####[facility] ([id number])[address] [address] [place] [address] MCH (RBC) [Entitic mass] 28.2 pg Normal 27-34 [facility] Comment on above: Performed By: #### P INR, 53589-4, CBCA, 93247-7 ####[facility] ([id number])[address] [address] MCHC (RBC) [Mass/Vol] 32.2 g/dL Normal 32-36 [facility] Comment on above: Performed By: #### P INR, 02793-5, CBCA, 50002-0 ####[facility] ([id number])[address] [address] MCV (RBC) [Entitic vol] 88 fL Normal 80-100 [facility] Comment on above: Performed By: #### P INR, 62642-3, CBCA, 01658-7 ####[facility] ([id number])[address], [address], [place] [address] Monocytes (Bld) [#/Vol] 0.8 10*3/uL Normal 0-0.9 [facility] Comment on above: Performed By: #### P INR, 57316-6, CBCA, 91026-5 ####[facility] ([id number])[address], [address], [place] [address] Monocytes/100 WBC (Bld) 8.2 % Normal [facility] Comment on above: Performed By: #### P INR, 84583-9, CBCA, 18350-1 ####[facility] ([id number])[address], [address], [place] [address] Neutrophils/100 WBC (Bld) 85.2 % Normal [facility] Comment on above: Performed By: #### P INR, 62446-9, CBCA, 37611-2 ####[facility] ([id number])[address], [address], [place] [address] OVALOCYTE 1+ Abnormal NONE [facility] Comment on above: Performed By: #### P INR, 09103-9, CBCA, 56281-3 ####[facility] ([id number])[address], [address], [place] [address] Platelet mean volume (Bld) [Entitic vol] 8.1 fL Normal 7-12 [facility] Comment on above: Performed By: #### P INR, 56703-1, CBCA, 64910-2 ####[facility] ([id number])[address], [address] [address] Platelets (Bld) [#/Vol] 98 10*3/uL Low 150-450 [facility] Comment on above: Performed By: #### P INR, 60537-3, CBCA, 91796-7 ####[facility] ([id number])[address], [address], [place] [address] RBC COUNT 2.91 X10E12/L Low 4.10-5.70 [facility] Comment on above: Performed By: #### P INR, 91295-8, CBCA, 82436-6 ####[facility] ([id number])[address], [address], [place] [address] WBC (Bld) [#/Vol] 9.1 10*3/uL Normal 4.0-11.0 [facility] Comment on above: Performed By: #### P INR, 01687-2, CBCA, 87195-8 ####[facility] ([id number])[address], [address], [place] [address] COMPREHENSIVE METABOLIC PANE Jonathan 08-20-2024 Albumin [Mass/Vol] 2.3 g/dL Low 3.2-5.3 [facility] Comment on above: Performed By: #### 3 2132-1, CMP, 1988-03, LIVR, 80262-4, 2776- 1, 79958-6 ####[facility] ([id number])[address], [address], [place] [address] ALP [Catalytic activity/Vol] 62 U/L Normal 39-130 [facility] Comment on above: Performed By: #### 3 2132-1, CMP, 1988-03, LIVR, 58970-4, 2776- 1, 28620-2 ####[facility] ([id number])[address], [address], [place] [address] ALT [Catalytic activity/Vol] 5 U/L Normal 0-40 [facility] Comment on above: Performed By: #### 3 2132-1, CMP, 1988-03, LIVR, 72199-6, 2777- 1, 39827-1 ####[facility] ([id number])[address], [place] [address] Anion gap [Moles/Vol] 11 mmol/L Normal 5-15 [facility] Comment on above: Performed By: #### 3 2132-, CMP, 1988-03, LIVR, , 2776- , 89123-0 ####[facility] ([id number])[address], [address], [place] [address] AST [Catalytic activity/Vol] 7 U/L Normal 0-41 [facility] Comment on above: Performed By: #### 3 1, CMP, 1988-03, LIVR, , , 77741-1 ####[facility] ([id number])[address], [address] [address] Bilirubin [Mass/Vol] 0.5 mg/dL Normal 0.3-1.2 [facility] Comment on above: Performed By: #### 3 2132-11, CMP, 1988-03, LIVR, , 2776- , 08167-2 ####[facility] ([id number])[address] [address] [address] Calcium [Mass/Vol] 7.7 mg/dL Low 8.5-10.5 [facility] Comment on above: Performed By: #### 3 2132-11, CMP, 1988-03, LIVR, , , 65038-4 ####[facility] ([id number])[address] [address], [place] [address] Chloride [Moles/Vol] 115 mmol/L High 98-109 [facility] Comment on above: Performed By: #### 3 2132-11, CMP, 1988-03, LIVR, 78465-0, , 00792-1 ####[facility] ([id number])[address], [address], [place] [address] CO2 [Moles/Vol] 16 mmol/L Low 22-32 [facility] Comment on above: Performed By: #### 3 2132-11, [facility], 1988-03, LIVR, , , 81204-2 ####[facility] ([id number])[address] [address] Creatinine [Mass/Vol] 3.87 mg/dL High 0.60-1.30 [facility] Comment on above: Result Comment: METH OD TRACEABLE TO IDMS STANDARD Performed By: #### 3 2132-11, [facility], 1988-03, LIVR, , 2776-11, 47404-4 ####[facility] ([id number])[address] [address] [address] GFR/1.73 sq M.predicted among non-blacks MDRD (S/P/Bld) [Vol rate/Area] 16 mL/min/{1.73_m2} Low >59 [facility] Comment on above: Result Comment: Repo rted eGFR is based on theCKD-EPI 2020 equation that doesnot use a race coefficient. Performed By: #### 3 2132-11, [facility], 1988-03, LIVR, , 2776-11, 00547-5 ####[facility] ([id number])[address] [address] Glucose [Mass/Vol] 94 mg/dL Normal 65-99 [facility] Comment on above: Performed By: #### 3 2132-11, [facility], 1988-[facility], [facility], , , 75703-0 ####[facility] ([id number])[address], [place] [address] Potassium [Moles/Vol] 4.6 mmol/L Normal 3.5-5.0 [facility] Comment on above: Performed By: #### 3 2132-1, CMP, 1988-03, LIVR, 51202-3, 7- 1, 12699-9 ####[facility] ([id number])[address], [place] [address] Protein [Mass/Vol] 4.8 g/dL Low 6.0-8.0 [facility] Comment on above: Performed By: #### 3 2132-1, CMP, 1988-03, LIVR, , 2776- 1, 06327-3 ####[facility] ([id number])[address], [place] [address] Sodium [Moles/Vol] 142 mmol/L Normal 134-146 [facility] Comment on above: Performed By: #### 3 2132-1, CMP, 1988-03, LIVR, , , 43765-8 ####[facility] ([id number])[address], [place] [address] Urea nitrogen [Mass/Vol] 72 mg/dL High 5-27 [facility] Comment on above: Performed By: #### 3 1, CMP, 1988-03, LIVR, , 2776- 1, 29197-5 ####[facility] ([id number])[address], [place] [address] CRP [Mass/Vol]on 08-20-2024 C REACTIVE PROTEIN 7.4 mg/dL High 0.000-0.744 [facility] Comment on above: Performed By: #### 3 2132-1, CMP, 1988-03, LIVR, 91204-4, 2776- 1, 15877-7 ####[facility] ([id number])[address], [place] [address] CT ABDOMEN AND PELVIS WO CON Ton 08-20-2024 CT ABDOMEN AND PELVIS WO CONT Normal [facility] CT CHEST WO CONTon CT CHEST WO CONT Normal [facility] Calcium.ionized (Bld) [Mass/ Vol]on 08-20-2024 IONIZED CALCIUM 4.9 mg/dL Normal 4.5-5.3 [facility] Comment on above: Performed By: #### 3 8230-9, 70649-2 ####[facility] [facility] ([id number])[address], [address] [place] [address] ESR Photometric method (Bld) [Velocity]on 08-20-2024 ESR, ERYTHROCYTE SEDIMENTATION RATE 11 mm/h Normal 0-20 [facility] Comment on above: Performed By: #### P INR, 95709-5, CBCA, 62974-3 ####[facility] ([id number])[address], [address] [place] [address] 38947 Glucose Glucometer (BldC) [M ass/Vol]on 08-20-2024 Glucose [Mass/Vol] 88 mg/dL Normal 65-99 [facility] LIVER PANELon 08-20-2024 Bilirubin.direct [Mass/Vol] 0.1 mg/dL Normal 0.0-0.4 [facility] Comment on above: Performed By: #### 3 3-1, CMP, 1988-03, LIVR, , 2776- 1, 79774-6 ####[facility] ([id number])[address], [address] [place] [address]82 Lactate (P oc) [Moles/Vol]o n 08-20-2024 LACTATE W/REFLEX 0.7 mmol/L Normal 0.4-2.0 [facility] Comment on above: Result Comment: Resu lt did not trigger repeat Lactate,re-order if needed. Performed By: #### 3 3-1, CMP, 1988-03, LIVR, , 2776-, 49346-3 ####[facility] ([id number])[address], [address] [place] [address] MAGNESIUMon 08-20-2024 Magnesium [Mass/Vol] 1.5 mg/dL Low 1.8-2.6 [facility] Comment on above: Performed By: #### 3 2133-1, CMP, 1988-5, LIVR, 04797-7, 2777- 1, 50300-8 ####[facility] ([id number])[address], [address] [place] [address] Magnesium Ionized ISE (Bld) [Moles/Vol]on 08-20-2024 Magnesium [Moles/Vol] 0.40 mmol/L Low 0.45-0.74 [facility] Comment on above: Result Comment: NEW REFERENCE RANGE Performed By: #### 3 8230-9, 32142-4 ####[facility] ([id number])[address], [address] [place] [address]956 Natriuretic peptide B [Mass/ Vol]on 08-20-2024 Natriuretic peptide B (Bld) [Mass/Vol] 930 pg/mL High <100.0 [facility] Comment on above: Performed By: #### P INR, 43135-9, CBCA, 53857-6 ####[facility] ([id number])[address], [address] [place] [address] 37587 Neutrophil cytoplasmic Ab pa peter IF (S)on 08-20-2024 c-ANCA Negative Normal Negative [facility] p-ANCA Negative Normal Negative [facility] Comment on above: Result Comment: NOTE Negative for cANCA and pANCA patterns by immunofluorescence. ADDITIONAL INFORMATION This test was developed and its performance characteristicsdetermined by [facility] in a manner consistent with CLIArequirements. This test has not been cleared or approved bythe U.S. Food and Drug Administration.Test Performed by:[facility], [place] [address]Mvb Director: Sylvia Gonzalez Ph.D.; CLIA# [id number] PHOSPHORUSon 08-20-2024 Phosphate [Mass/Vol] 6.7 mg/dL High 2.4-4.9 [facility] Comment on above: Performed By: #### 3 3-1, CMP, 1988-03, LIVR, , , 67405-8 ####[facility] ([id number])[address], [address], [place] [address] PROTIME AND INRon 08-20-2024 INR Coag (PPP) [Relative time] 1.6 {INR} High 0.8-1.1 [facility] Comment on above: Performed By: #### P INR, 80478-6, CBCA, 66531-8 ####[facility] ([id number])[address], [address], [place] [address] PT Coag (PPP) [Time] 18.7 s High 9.8-13.2 [facility] Comment on above: Performed By: #### P INR, 09460-5, CBCA, 48631-9 ####[facility] ([id number])[address], [address], [place] [address] Procalcitonin IA [Mass/Vol]o n 08-20-2024 PROCALCITONIN 0.36 ng/mL High <0.05 [facility] Comment on above: Result Comment: NOTE <0.50 ng/mL - Low risk of severe sepsis and/or septic shock.<2.00 ng/mL - Recommend retesting within 6-24 hours.>2.00 ng/mL - High risk of sepsis and/or septic shock. Performed By: #### 3 3-1, CMP, 1988-03, LIVR, , 2776-11, 50789-7 ####[facility] ([id number])[address], [address], [place] [address] SUPERFICIAL WOUND CULTUREon 08-20-2024 Bacteria identified Aer cx Nom (Wound) Normal [facility] Comment on above: Performed By: #### 6 32-0 ####[facility] ([id number])[address], [address], [place] [address] URINALYSISon 08-20-2024 Bilirubin Ql (U) Negative Normal NEG [facility] Comment on above: Performed By: #### U A ####[facility] ([id number])[address], [address], [place] [address] BLOOD/HGB Large Abnormal NEG [facility] Comment on above: Performed By: #### U A ####[facility] ([id number])[address], [place] [address] Color (U) YELLOW Normal YELLOW [facility] Comment on above: Performed By: #### U A ####[facility] ([id number])[address], [address], [place] [address] Glucose Ql (U) Negative Normal NEG [facility] Comment on above: Performed By: #### U A ####[facility] ([id number])[address], [address], [place] [address] Ketones Ql (U) Negative Normal NEG [facility] Comment on above: Performed By: #### U A ####[facility] ([id number])[address], [address], [place] [address] Leukocyte esterase Test strip Ql (U) Large Abnormal NEG [facility] Comment on above: Performed By: #### U A ####[facility] ([id number])[address], [address], [place] [address] Nitrite Ql (U) Negative Normal NEG [facility] Comment on above: Performed By: #### U A ####[facility] ([id number])[address] [address], [place] [address] pH (U) 5.5 [pH] Normal 5.0-8.5 [facility] Comment on above: Performed By: #### U A ####[facility] ([id number])[address] [address], [place] [address] Protein Ql (U) 100 mg/dL Abnormal NEG [facility] Comment on above: Performed By: #### U A ####[facility] ([id number])[address] [address], [place] [address] R.B.CELLS 159 /hpf High 0-5 [facility] Comment on above: Performed By: #### U A ####[facility] ([id number])[address] [address], [place] [address] Specific gravity (U) [Rel density] 1.009 Normal 1.003-1.035 [facility] Comment on above: Performed By: #### U A ####[facility] ([id number])[address] [address] [place] [address] SQUAMOUS EPITHELIUM 3 /hpf Normal 0-5 [facility] Comment on above: Performed By: #### U A ####[facility] ([id number])[address] [address], [place] [address] TURBIDITY CLOUDY Abnormal CLEAR [facility] Comment on above: Performed By: #### U A ####[facility] ([id number])[address] [address], [place] [address] Urobilinogen (U) [Mass/Vol] mg/dL Normal <1.1 [facility] Comment on above: Performed By: #### U A ####[facility] ([id number])[address] [address] [place] [address] W.B.CELLS >720 High 0-5 [facility] Comment on above: Performed By: #### U A ####[facility] ([id number])[address] [address] WBC CLUMPS MANY Abnormal NONE [facility] Comment on above: Performed By: #### U A ####[facility] ([id number])[address] [address] URINE CULTUREon 08-20-2024 Bacteria identified Cx Nom (U) SPECIMEN NOTES URINE RECEIVED WITHOUT PRESERVATIVE CULTURE RESULTS >100,000 ORGANISMS/ML NORMAL UROGENITAL MAGALYS Normal [facility] Comment on above: Performed By: #### 6 30-4 ####[facility] ([id number])[address] [address] Aerobic Cultureon 06-03-2023 Aerobic Culture ORGANISM: Staphyloco ccus aureus (O:STAAUR) Quantity of Growth Light Growth ORGANISM: Alcaligenes faecalis (O:ALCFAE) Quantity of Growth Light Growth No Anaerobes Isolated 3 Days Gram Stain Result No Bacteria Seen Aerobic GSUTABO Charge (PCMIC38) SUSCEPTIBILITY ORGANISM: O:STAAUR ANTIBIOTIC INTERPRETATION GUSTABO Azithromycin R >4 Ceftaroline S <0.5 Ciprofloxacin R >2 Clindamycin S <0.25 Daptomycin S <0.5 Levofloxacin R >4 Linezolid S 2 Oxacillin S 0.5 Penicillin COREY >2 Tetracycline S <4 Trimethoprim/Sulfamethoxazo le R >2 Vancomycin S 1 Aerobic GUSTABO Charge (NMIC56) SUSCEPTIBILITY ORGANISM: O:ALCFAE ANTIBIOTIC INTERPRETATION GUSTABO Amikacin S <16 Aztreonam R >16 Cefepime S 8 Ceftazidime S 4 Ceftriaxone S <1 Gentamicin S <2 Piperacillin/Tazobactam S <8 Tetracycline S <4 Tobramycin S 4 Trimethoprim/Sulfamethoxazo le S <0.5 S = SUSCEPTIBLE I = [...] RESISTANT TO ALL B-LACTAM DRUGS. PERFORMED BY: [place] [address] PATHOLOGIST MINISTER OF [employer]IGION MARLA VEGA M.D. [facility] Comment on above: Performed By: #### A MAI LAYNE #### [address] Gram Stainon 06-03-2023 Microscopic observation Gram stain Nom (Unsp spec) Gram Stain Result No Bacteria Seen PERFORMED BY: [place] [address] PATHOLOGIST MINISTER OF [employer]IG[employer] MARLA VEGA M.D. [facility] Comment on above: Performed By: #### A MAI LAYNE #### [address] CULTURE URINEon 03-06-2023 CULTURE URINE Isolate [...] <=0.12 S F Nitrofurantoin 128 R F Trimethoprim/Sulfamethoxazo le <=20 S F ORGANISM 2 Pseudomonas aeruginosa ANTIBIOTIC M.I.C RX STATUS Piperacillin/Tazobactam 32 S F Ceftazidime 8 S F Imipenem 1 S F Amikacin <=2 S F Gentamicin <=1 S F Tobramycin <=1 S F Ciprofloxacin 0.5 S F Levofloxacin 2 S F Normal [facility] Comment on above: Performed By: #### U RCX #### [facility] [address] [place] [address] Dr. Marvin Reis UA RANDOM W/MICROSCOPICon BACTERIA SMALL Abnormal NONE SEEN [facility] Comment on above: Performed By: #### U AMIC #### [facility] [address] [place] [address] Dr. Marvin Reis Bilirubin Ql (U) Negative Normal NEGATIVE [facility] Comment on above: Performed By: #### U AMIC #### [facility] [address] [place] [address] Dr. Marvin Reis CAST NONE SEEN Normal NONE SEEN [facility] Comment on above: Performed By: #### U AMIC #### [facility] [address] [place] [address] Dr. Marvin Reis Clarity (U) CLEAR Normal CLEAR [facility] Comment on above: Performed By: #### U AMIC #### [facility] [address] [place] [address] Dr. Marvin Reis Color (U) LT. YELLOW Normal YELLOW [facility] Comment on above: Performed By: #### U AMIC #### [facility] [address] [place] [address] Dr. Marvin Reis Crystals LM Nom (Urine sed) NONE SEEN Normal NONE SEEN [facility] Comment on above: Performed By: #### U AMIC #### [facility] [address] [place] [address] Dr. Marvin Reis Epithelial cells LM Ql (Urine sed) RARE Normal NONE SEEN /RARE [facility] Comment on above: Performed By: #### U AMIC #### [facility] [address] [place] [address] Dr. Marvin Reis Glucose Ql (U) Negative Normal NEGATIVE [facility] Comment on above: Performed By: #### U AMIC #### [facility] [address] [place] [address] Dr. Marvin Reis Hemoglobin Ql (U) Negative Normal NEGATIVE [facility] Comment on above: Performed By: #### U AMIC #### [facility] [address] [address] [address] Marvin Reis Ketones Ql (U) Negative Normal NEGATIVE [facility] Comment on above: Performed By: #### U AMIC #### [facility] [address] [place] [address] Dr. Marvin Reis LEUKOCYTES SMALL Abnormal NEGATIVE [facility] Comment on above: Performed By: #### U AMIC #### [facility] [address] [place] [address] Dr. Marvin Reis MUCOUS NONE SEEN Normal NONE SEEN [facility] Comment on above: Performed By: #### U AMIC #### [facility] [address] [place] [address] Dr. Marvin Reis Nitrite Ql (U) Negative Normal NEGATIVE [facility] Comment on above: Performed By: #### U AMIC #### [facility] [address] [place] [address] Dr. Marvin Reis pH (U) 6.0 [pH] Normal 5-9 [facility] Comment on above: Performed By: #### U AMIC #### [facility] [address] [place] [address] Dr. Marvin Reis RBC 0-2 Normal 0-2 [facility] Comment on above: Performed By: #### U AMIC #### [facility] [address] [place] [address] Dr. Marvin Reis SPEC GRAVITY 1.010 Normal 1.005-<=1.0 25 [facility] Comment on above: Performed By: #### U AMIC #### [facility] [address] [place] [address] Dr. Marvin Reis UA PROTEIN Negative Normal NEGATIVE/ TRACE [facility] Comment on above: Performed By: #### U AMIC #### [facility] [address] [place] [address] Dr. Marvin Reis Urobilinogen Qn (U) 0.2 {Robbie'U}/dL Normal 0.2 - 1. 0 [facility] Comment on above: Performed By: #### U AMIC #### [facility] [address] [place] [address] Dr. Marvin Reis WBC 5-10 Abnormal NONE SEEN [facility] Comment on above: Performed By: #### U AMIC #### [facility] [address] [address] [address] Marvin Reis CULTURE URINEon 02-13-2023 CULTURE URINE Isolate 1 Klebsiella pneumoniae >100,000 cfu/mL of Isolate 2 Pseudomonas aeruginosa >100,000 cfu/ml of ORGANISM 1 Klebsiella pneumoniae ANTIBIOTIC M.I.C RX STATUS Ampicillin >=32 R F Ampicillin/Sulbactam 4 S F Piperacillin/Tazobactam 8 S F Cefazolin <=4 S F Ceftazidime <=1 S F Ceftriaxone <=1 S F Ertapenem <=0.5 S F Imipenem <=0.25 S F Amikacin <=2 S F Gentamicin <=1 S F Tobramycin <=1 S F Ciprofloxacin 1 S F Levofloxacin 1 S F Nitrofurantoin 128 R F Trimethoprim/Sulfamethoxazo le <=20 S F ORGANISM 2 Pseudomonas aeruginosa ANTIBIOTIC M.I.C RX STATUS Piperacillin/Tazobactam 32 S F Ceftazidime 4 S F Imipenem 1 S F Amikacin <=2 S F Gentamicin <=1 S F Tobramycin <=1 S F Ciprofloxacin 1 S F Levofloxacin 2 S F Normal [facility] Comment on above: Performed By: #### U RCX #### [facility] [address] [place] [address] Dr. Marvin Reis UA RANDOM W/MICROSCOPICon BACTERIA MODERATE Abnormal NONE SEEN [facility] Comment on above: Performed By: #### U AMIC #### [facility] [address] [place] [address] Dr. Marvin Reis Bilirubin Ql (U) Negative Normal NEGATIVE [facility] Comment on above: Performed By: #### U AMIC #### [facility] [address] [address] [address] Marvin Reis CAST NONE SEEN Normal NONE SEEN [facility] Comment on above: Performed By: #### U AMIC #### [facility] [address] [address] [address] Marvin Reis Clarity (U) CLEAR Normal CLEAR [facility] Comment on above: Performed By: #### U AMIC #### [facility] [address] [place] [address] Dr. Marvin Reis Color (U) LT. YELLOW Normal YELLOW [facility] Comment on above: Performed By: #### U AMIC #### [facility] [address] [address] [address] Marvin Reis Crystals LM Nom (Urine sed) NONE SEEN Normal NONE SEEN [facility] Comment on above: Performed By: #### U AMIC #### [facility] [address] [place] [address] Dr. Marvin Reis Epithelial cells LM Ql (Urine sed) MODERATE Abnormal NONE SEEN /RARE [facility] Comment on above: Performed By: #### U AMIC #### [facility] [address] [place] [address] Dr. Marvin Reis Glucose Ql (U) Negative Normal NEGATIVE [facility] Comment on above: Performed By: #### U AMIC #### [facility] [address] [place] [address] Dr. Marvin Reis Hemoglobin Ql (U) SMALL Abnormal NEGATIVE [facility] Comment on above: Performed By: #### U AMIC #### [facility] [address] [place] [address] Dr. Marvin Reis Ketones Ql (U) Negative Normal NEGATIVE [facility] Comment on above: Performed By: #### U AMIC #### [facility] [address] [address] [address] aMrvin Reis LEUKOCYTES LARGE Abnormal NEGATIVE [facility] Comment on above: Performed By: #### U AMIC #### [facility] [address] [address] [address] Marvin Reis MUCOUS NONE SEEN Normal NONE SEEN [facility] Comment on above: Performed By: #### U AMIC #### [facility] [address] [place] [address] Dr. Marvin Reis Nitrite Ql (U) Positive Abnormal NEGATIVE [facility] Comment on above: Performed By: #### U AMIC #### [facility] [address] [place] [address] Dr. Marvin Reis pH (U) 5.5 [pH] Normal 5-9 [facility] Comment on above: Performed By: #### U AMIC #### [facility] [address] [place] [address] Dr. Marvin Reis RBC 5-10 Abnormal 0-2 [facility] Comment on above: Performed By: #### U AMIC #### [facility] [address] [place] [address] Dr. Marvin Reis SPEC GRAVITY 1.015 Normal 1.005-<=1.0 25 [facility] Comment on above: Performed By: #### U AMIC #### [facility] [address] [place] [address] Dr. Marvin Reis UA PROTEIN Negative Normal NEGATIVE/ TRACE [facility] Comment on above: Performed By: #### U AMIC #### [facility] [address] [place] [address] Dr. Marvin Reis Urobilinogen Qn (U) 0.2 {Robbie'U}/dL Normal 0.2 - 1. 0 [facility] Comment on above: Performed By: #### U AMIC #### [facility] [address] [place] [address] Dr. Marvin Reis WBC 50-75 Abnormal NONE SEEN [facility] Comment on above: Performed By: #### U AMIC #### [facility] [address] [place] [address] Dr. Marvin Reis CULTURE URINEon 01-23-2023 CULTURE [...] <=0.5 S F Levofloxacin 0.5 S F Quinupristin/Dalfopristin 1 S F Linezolid 2 S F Vancomycin <=0.5 S F Tetracycline >=16 R F Nitrofurantoin 64 I F ORGANISM 1 Staphylococcus haemolyticus ANTIBIOTIC M.I.C RX STATUS Beta-Lactamase Pos POS F Cefoxitin Screen Pos POS F Benzylpenicillin >=0.5 R F Oxacillin >=4 R F Gentamicin <=0.5 S F Ciprofloxacin <=0.5 S F Levofloxacin <=0.12 S F Inducible Clindamycin Resistance Pos POS F Quinupristin/Dalfopristin <=0.25 S F Linezolid 1 S F Vancomycin <=0.5 S F Tetracycline >=16 R F Nitrofurantoin <=16 S F Rifampicin <=0.5 S F Trimethoprim/Sulfamethoxazo le <=10 S F Normal [facility] Comment on above: Performed By: #### U AMIC #### [facility] [address] [place] [address] Dr. Marvin Reis UA RANDOM W/MICROSCOPICon BACTERIA TRACE Abnormal NONE SEEN [facility] Comment on above: Performed By: #### U AMIC #### [facility] [address] [place] [address] Dr. Marvin Reis Bilirubin Ql (U) Negative Normal NEGATIVE [facility] Comment on above: Performed By: #### U AMIC #### [facility] [address] [place] [address] Dr. Marvin Reis CAST NONE SEEN Normal NONE SEEN [facility] Comment on above: Performed By: #### U AMIC #### [facility] [address] [place] [address] Dr. Marvin Reis Clarity (U) SL CLOUDY Abnormal CLEAR [facility] Comment on above: Performed By: #### U AMIC #### [facility] [address] [place] [address] Dr. Marvin Reis Color (U) LT. YELLOW Normal YELLOW [facility] Comment on above: Performed By: #### U AMIC #### [facility] [address] [address] [address] Marvin Reis Crystals LM Nom (Urine sed) NONE SEEN Normal NONE SEEN [facility] Comment on above: Performed By: #### U AMIC #### [facility] [address] [address] [address] Marvin Reis Epithelial cells LM Ql (Urine sed) NONE SEEN Normal NONE SEEN /RARE [facility] Comment on above: Performed By: #### U AMIC #### [facility] [address] [address] [address] Marvin Reis Glucose Ql (U) Negative Normal NEGATIVE [facility] Comment on above: Performed By: #### U AMIC #### [facility] [address] [address] [address] Marvin Reis Hemoglobin Ql (U) Negative Normal NEGATIVE [facility] Comment on above: Performed By: #### U AMIC #### [facility] [address] [address] [address] Marvin Reis Ketones Ql (U) Negative Normal NEGATIVE [facility] Comment on above: Performed By: #### U AMIC #### [facility] [address] [address] [address] Marvin Reis LEUKOCYTES TRACE Abnormal NEGATIVE [facility] Comment on above: Performed By: #### U AMIC #### [facility] [address] [address] [address] Marvin Reis MUCOUS NONE SEEN Normal NONE SEEN [facility] Comment on above: Performed By: #### U AMIC #### [facility] [address] [address] [address] Marvin Reis Nitrite Ql (U) Negative Normal NEGATIVE [facility] Comment on above: Performed By: #### U AMIC #### [facility] [address] [address] [address] Marvin Reis pH (U) 6.0 [pH] Normal 5-9 [facility] Comment on above: Performed By: #### U AMIC #### [facility] [address] [place] [address] Dr. Marvin Reis RBC NONE SEEN Abnormal 0-2 [facility] Comment on above: Performed By: #### U AMIC #### [facility] [address] [place] [address] Dr. Marvin Reis SPEC GRAVITY 1.020 Normal 1.005-<=1.0 25 [facility] Comment on above: Performed By: #### U AMIC #### [facility] [address] [place] [address] Dr. Marvin Reis UA PROTEIN Negative Normal NEGATIVE/ TRACE [facility] Comment on above: Performed By: #### U AMIC #### [facility] [address] [place] [address] Dr. Marvin Reis Urobilinogen Qn (U) 0.2 {Robbie'U}/dL Normal 0.2 - 1. 0 [facility] Comment on above: Performed By: #### U AMIC #### [facility] [address] [place] [address] Dr. Marvin Reis WBC 10-20 Abnormal NONE SEEN [facility] Comment on above: Performed By: #### U AMIC #### [facility] [address] [place] [address] Dr. Marvin Reis CULTURE URINEon 01-07-2023 CULTURE URINE Isolate 1 Dawna albicans 10,000 cfu/mL of Normal [facility] Comment on above: Performed By: #### U RCX #### [facility] [address] [place] [address] Dr. Marvin Reis UA RANDOM W/MICROSCOPICon BACTERIA TRACE Abnormal NONE SEEN [facility] Comment on above: Performed By: #### U AMIC #### [facility] [address] [place] [address] Dr. Marvin Reis Bilirubin Ql (U) Negative Normal NEGATIVE [facility] Comment on above: Performed By: #### U AMIC #### [facility] [address] [place] [address] Dr. Marvin Reis CA OX CRYSTALS RARE Normal [facility] Comment on above: Performed By: #### U AMIC #### [facility] [address] [address] [address] Marvin Reis CAST NONE SEEN Normal NONE SEEN [facility] Comment on above: Performed By: #### U AMIC #### [facility] [address] [place] [address] Dr. Marvin Reis Clarity (U) CLEAR Normal CLEAR [facility] Comment on above: Performed By: #### U AMIC #### [facility] [address] [address] [address] Marvin Reis Color (U) LT. YELLOW Normal YELLOW [facility] Comment on above: Performed By: #### U AMIC #### [facility] [address] [place] [address] Dr. Marvin Reis Crystals LM Nom (Urine sed) SEEN Abnormal NONE SEEN [facility] Comment on above: Performed By: #### U AMIC #### [facility] [address] [place] [address] Dr. Marvin Reis Epithelial cells LM Ql (Urine sed) FEW Abnormal NONE SEEN /RARE [facility] Comment on above: Performed By: #### U AMIC #### [facility] [address] [place] [address] Dr. Marvin Reis Glucose Ql (U) Negative Normal NEGATIVE [facility] Comment on above: Performed By: #### U AMIC #### [facility] [address] [place] [address] Dr. Marvin Reis Hemoglobin Ql (U) Negative Normal NEGATIVE [facility] Comment on above: Performed By: #### U AMIC #### [facility] [address] [place] [address] Dr. Marvin Reis Ketones Ql (U) Negative Normal NEGATIVE [facility] Comment on above: Performed By: #### U AMIC #### [facility] [address] [place] [address] Dr. Marvin Reis LEUKOCYTES SMALL Abnormal NEGATIVE [facility] Comment on above: Performed By: #### U AMIC #### [facility] [address] [place] [address] Dr. Marvin Reis MUCOUS NONE SEEN Normal NONE SEEN [facility] Comment on above: Performed By: #### U AMIC #### [facility] [address] [place] [address] Dr. Marvin Reis Nitrite Ql (U) Negative Normal NEGATIVE [facility] Comment on above: Performed By: #### U AMIC #### [facility] [address] [place] [address] Dr. Marvin Reis pH (U) 5.5 [pH] Normal 5-9 [facility] Comment on above: Performed By: #### U AMIC #### [facility] [address] [place] [address] Dr. Marvin Reis RBC 0-2 Normal 0-2 [facility] Comment on above: Performed By: #### U AMIC #### [facility] [address] [place] [address] Dr. Marvin Reis SPEC GRAVITY 1.015 Normal 1.005-<=1.0 25 [facility] Comment on above: Performed By: #### U AMIC #### [facility] [address] [place] [address] Dr. Marvin Reis UA PROTEIN Negative Normal NEGATIVE/ TRACE [facility] Comment on above: Performed By: #### U AMIC #### [facility] [address] [place] [address] Dr. Marvin Reis Urobilinogen Qn (U) 0.2 {Robbie'U}/dL Normal 0.2 - 1. 0 [facility] Comment on above: Performed By: #### U AMIC #### [facility] [address] [place] [address] Dr. Marvin Reis WBC 50-75 Abnormal NONE SEEN [facility] Comment on above: Performed By: #### U AMIC #### [facility] [address] [place] [address] Dr. Marvin Reis YEAST PRESENT Abnormal NONE SEEN [facility] Comment on above: Performed By: #### U AMIC #### [facility] [address] [place] [address] Dr. Marvin Reis CULTURE URINEon 12-25-2022 CULTURE [...] F Inducible Clindamycin Resistance Neg NEG F Quinupristin/Dalfopristin <=0.25 S F Linezolid 2 S F Vancomycin <=0.5 S F Tetracycline <=1 S F Nitrofurantoin <=16 S F Rifampicin <=0.5 S F Trimethoprim/Sulfamethoxazo le >=320 R F Normal [facility] Comment on above: Performed By: #### U RCX #### [facility] [address] [place] [address] Dr. Marvin Reis UA RANDOM W/MICROSCOPICon BACTERIA NONE SEEN Normal NONE SEEN [facility] Comment on above: Performed By: #### U AMIC #### [facility] [address] [place] [address] Dr. Marvin Reis Bilirubin Ql (U) Negative Normal NEGATIVE [facility] Comment on above: Performed By: #### U AMIC #### [facility] [address] [place] [address] Dr. Marvin Reis CAST NONE SEEN Normal NONE SEEN [facility] Comment on above: Performed By: #### U AMIC #### [facility] [address] [place] [address] Dr. Marvin Reis Clarity (U) CLEAR Normal CLEAR [facility] Comment on above: Performed By: #### U AMIC #### [facility] [address] [place] [address] Dr. Marvin Reis Color (U) LT. YELLOW Normal YELLOW [facility] Comment on above: Performed By: #### U AMIC #### [facility] [address] [place] [address] Dr. Marvin Reis Crystals LM Nom (Urine sed) NONE SEEN Normal NONE SEEN [facility] Comment on above: Performed By: #### U AMIC #### [facility] [address] [address] [address] Marvin Reis Epithelial cells LM Ql (Urine sed) RARE Normal NONE SEEN /RARE [facility] Comment on above: Performed By: #### U AMIC #### [facility] [address] [address] [address] Marvin Reis Glucose Ql (U) Negative Normal NEGATIVE [facility] Comment on above: Performed By: #### U AMIC #### [facility] [address] [address] [address] Marvin Reis Hemoglobin Ql (U) Negative Normal NEGATIVE [facility] Comment on above: Performed By: #### U AMIC #### [facility] [address] [place] [address] Dr. Marvin Reis Ketones Ql (U) Negative Normal NEGATIVE [facility] Comment on above: Performed By: #### U AMIC #### [facility] [address] [address] [address] Marvin Reis LEUKOCYTES MODERATE Abnormal NEGATIVE [facility] Comment on above: Performed By: #### U AMIC #### [facility] [address] [address] [address] Marvin Reis MUCOUS NONE SEEN Normal NONE SEEN [facility] Comment on above: Performed By: #### U AMIC #### [facility] [address] [address] [address] Marvin Reis Nitrite Ql (U) Negative Normal NEGATIVE [facility] Comment on above: Performed By: #### U AMIC #### [facility] [address] [address] [address] Marvin Reis pH (U) 5.5 [pH] Normal 5-9 [facility] Comment on above: Performed By: #### U AMIC #### [facility] [address] [place] [address] Dr. Marvin Reis RBC NONE SEEN Abnormal 0-2 [facility] Comment on above: Performed By: #### U AMIC #### [facility] [address] [address] [address] Marvin Reis SPEC GRAVITY 1.015 Normal 1.005-<=1.0 25 [facility] Comment on above: Performed By: #### U AMIC #### [facility] [address] [place] [address] Dr. Marvin Reis UA PROTEIN Negative Normal NEGATIVE/ TRACE [facility] Comment on above: Performed By: #### U AMIC #### [facility] [address] [place] [address] Dr. Marvin Reis Urobilinogen Qn (U) 0.2 {Robbie'U}/dL Normal 0.2 - 1. 0 [facility] Comment on above: Performed By: #### U AMIC #### [facility] [address] [place] [address] Dr. Marvin Reis WBC 10-20 Abnormal NONE SEEN [facility] Comment on above: Performed By: #### U AMIC #### [facility] [address] [place] [address] Dr. Marvin Reis CULTURE URINEon 12-05-2022 CULTURE URINE Isolate 1 Enterobacter aerogenes >100,000 cfu/ml of ORGANISM 1 Enterobacter aerogenes ANTIBIOTIC M.I.C RX STATUS Piperacillin/Tazobactam 32 I F Cefazolin >=64 R F Ceftazidime 16 I F Ceftriaxone 16 I F Ertapenem <=0.5 S F Imipenem 0.5 S F Amikacin <=2 S F Gentamicin <=1 S F Tobramycin <=1 S F Ciprofloxacin <=0.25 S F Levofloxacin <=0.12 S F Nitrofurantoin 128 R F Trimethoprim/Sulfamethoxazo le <=20 S F Normal [facility] Comment on above: Performed By: #### U RCX #### [facility] [address] [place] [address] Dr. Marvin Reis CREATININEon 12-03-2022 Creatinine [Mass/Vol] 0.88 mg/dL Normal 0.70-1.30 [facility] Comment on above: Performed By: #### U RCX #### [facility] [address] [place] [address] Dr. Marvin Reis EGFR-AF ENGLISH >60 Normal >=60 [facility] Comment on above: Performed By: #### U RCX #### [facility] [address] [place], [place] [address] Dr. Marvin Reis EGFR-NON AF ENGLISH >60 Normal >=60 [facility] Comment on above: Performed By: #### U RCX #### [facility] [address] [place], [place] [address] ABDOMEN WO/W CONon 2022 CT ABDOMEN WO/W CON EXAMINATION: CT ABDO MEN WO/W CON HISTORY: Liver structure ; right [...] ELENO PARKER Date: 2022-12-03 14:51 Normal [facility] UA RANDOM W/MICROSCOPICon BACTERIA TRACE Abnormal NONE SEEN [facility] Comment on above: Performed By: #### U RCX #### [facility] [address] [place] [address] Dr. Marvin Reis Bilirubin Ql (U) Negative Normal NEGATIVE [facility] Comment on above: Performed By: #### U RCX #### [facility] [address] [place] [address] Dr. Marvin Reis CAST NONE SEEN Normal NONE SEEN [facility] Comment on above: Performed By: #### U RCX #### [facility] [address] [place] [address] Dr. Marvin Reis Clarity (U) CLEAR Normal CLEAR [facility] Comment on above: Performed By: #### U RCX #### [facility] [address] [place] [address] Dr. Marvin Reis Color (U) LT. YELLOW Normal YELLOW [facility] Comment on above: Performed By: #### U RCX #### [facility] [address] [place] [address] Dr. Marvin Reis Crystals LM Nom (Urine sed) NONE SEEN Normal NONE SEEN [facility] Comment on above: Performed By: #### U RCX #### [facility] [address] [place] [address] Dr. Marvin Reis Epithelial cells LM Ql (Urine sed) RARE Normal NONE SEEN /RARE [facility] Comment on above: Performed By: #### U RCX #### [facility] [address] [place] [address] Dr. Marvin Reis Glucose Ql (U) Negative Normal NEGATIVE [facility] Comment on above: Performed By: #### U RCX #### [facility] [address] [place] [address] Dr. Marvin Reis Hemoglobin Ql (U) TRACE-INTACT Abnormal NEGATIVE [facility] Comment on above: Performed By: #### U RCX #### [facility] [address] [place] [address] Dr. Marvin Reis Ketones Ql (U) Negative Normal NEGATIVE [facility] Comment on above: Performed By: #### U RCX #### [facility] [address] [place] [address] Dr. Marvin Reis LEUKOCYTES TRACE Abnormal NEGATIVE [facility] Comment on above: Performed By: #### U RCX #### [facility] [address] [place] [address] Dr. Marvin Reis MUCOUS TRACE Abnormal NONE SEEN [facility] Comment on above: Performed By: #### U RCX #### [facility] [address] [address] [address] Marvin Reis Nitrite Ql (U) Negative Normal NEGATIVE [facility] Comment on above: Performed By: #### U RCX #### [facility] [address] [place] [address] Dr. Marvin Reis pH (U) 5.0 [pH] Normal 5-9 [facility] Comment on above: Performed By: #### U RCX #### [facility] [address] [place] [address] Dr. Marvin Reis RBC 0-2 Normal 0-2 [facility] Comment on above: Performed By: #### U RCX #### [facility] [address] [place] [address] Dr. Marvin Reis SPEC GRAVITY 1.010 Normal 1.005-<=1.0 25 [facility] Comment on above: Performed By: #### U RCX #### [facility] [address] [place] [address] Dr. Marvin Reis UA PROTEIN TRACE Normal NEGATIVE/ TRACE [facility] Comment on above: Performed By: #### U RCX #### [facility] [address] [place] [address] Dr. Marvin Reis Urobilinogen Qn (U) 0.2 {Robbie'U}/dL Normal 0.2 - 1. 0 [facility] Comment on above: Performed By: #### U RCX #### [facility] [address] [place] [address] Dr. Marvin Reis WBC 2-5 Abnormal NONE SEEN [facility] Comment on above: Performed By: #### U RCX #### [facility] [address] [address] [address] ABD/PELVIS WO CONon 11-20 CT ABD/PELVIS WO CON EXAMINATION: CT ABD /PELVIS WO CON, 11/20/2022 12:48 PM EST HISTORY: [...] MAGY COMER Date: 2022-11-20 14:51 Normal [facility] CULTURE URINEon 11-11-2022 CULTURE URINE Culture Observations : GUSTABO TO FOLLOW. Isolate 1 Enterobacter aerogenes >100,000 cfu/mL of Normal [facility] Comment on above: Performed By: #### U RCX #### [facility] [address] [place] [address] Dr. Marvin Reis UA RANDOM W/MICROSCOPICon BACTERIA SMALL Abnormal NONE SEEN [facility] Comment on above: Performed By: #### U AMIC #### [facility] [address] [place] [address] Dr. Marvin Reis Bilirubin Ql (U) Negative Normal NEGATIVE [facility] Comment on above: Performed By: #### U AMIC #### [facility] [address] [place] [address] Dr. Marvin Reis CAST NONE SEEN Normal NONE SEEN [facility] Comment on above: Performed By: #### U AMIC #### [facility] [address] [place] [address] Dr. Marvin Reis Clarity (U) CLOUDY Abnormal CLEAR [facility] Comment on above: Performed By: #### U AMIC #### [facility] [address] [place] [address] Dr. Marvin Reis Color (U) LT. YELLOW Normal YELLOW [facility] Comment on above: Performed By: #### U AMIC #### [facility] [address] [place] [address] Dr. Marvin Reis Crystals LM Nom (Urine sed) NONE SEEN Normal NONE SEEN [facility] Comment on above: Performed By: #### U AMIC #### [facility] [address] [place] [address] Dr. Marvin Reis Epithelial cells LM Ql (Urine sed) NONE SEEN Normal NONE SEEN /RARE [facility] Comment on above: Performed By: #### U AMIC #### [facility] [address] [place] [address] Dr. Marvin Reis Glucose Ql (U) Negative Normal NEGATIVE [facility] Comment on above: Performed By: #### U AMIC #### [facility] [address] [place] [address] Dr. Marvin Reis Hemoglobin Ql (U) TRACE-INTACT Abnormal NEGATIVE [facility] Comment on above: Performed By: #### U AMIC #### [facility] [address] [place] [address] Dr. Marvin Reis Ketones Ql (U) Negative Normal NEGATIVE [facility] Comment on above: Performed By: #### U AMIC #### [facility] [address] [place] [address] Dr. Marvin Reis LEUKOCYTES LARGE Abnormal NEGATIVE [facility] Comment on above: Performed By: #### U AMIC #### [facility] [address] [place] [address] Dr. Marvin Reis MUCOUS NONE SEEN Normal NONE SEEN [facility] Comment on above: Performed By: #### U AMIC #### [facility] [address] [place] [address] Dr. Marvin Reis Nitrite Ql (U) Positive Abnormal NEGATIVE [facility] Comment on above: Performed By: #### U AMIC #### [facility] [address] [place] [address] Dr. Marvin Reis pH (U) 5.5 [pH] Normal 5-9 [facility] Comment on above: Performed By: #### U AMIC #### [facility] [address] [place] [address] Dr. Marvin Reis RBC 0-2 Normal 0-2 [facility] Comment on above: Performed By: #### U AMIC #### [facility] [address] [place] [address] Dr. Marvin Reis SPEC GRAVITY 1.015 Normal 1.005-<=1.0 25 [facility] Comment on above: Performed By: #### U AMIC #### [facility] [address] [place] [address] Dr. Marvin Reis UA PROTEIN Negative Normal NEGATIVE/ TRACE [facility] Comment on above: Performed By: #### U AMIC #### [facility] [address] [place] [address] Dr. Marvin Reis Urobilinogen Qn (U) 0.2 {Robbie'U}/dL Normal 0.2 - 1. 0 [facility] Comment on above: Performed By: #### U AMIC #### [facility] [address] [place] [address] Dr. Marvin Reis WBC 10-20 Abnormal NONE SEEN [facility] Comment on above: Performed By: #### U AMIC #### [facility] [address] [place] [address] Dr. Marvin Reis CULTURE URINEon 10-24-2022 CULTURE URINE Isolate 1 Serratia marcescens >100,000 cfu/mL of ORGANISM 1 Serratia marcescens ANTIBIOTIC M.I.C RX STATUS Cefazolin >=64 R F Ceftazidime <=1 S F Ceftriaxone <=1 S F Ertapenem <=0.5 S F Amikacin <=2 S F Gentamicin <=1 S F Tobramycin <=1 S F Ciprofloxacin <=0.25 S F Levofloxacin <=0.12 S F Nitrofurantoin 128 R F Trimethoprim/Sulfamethoxazo le <=20 S F Normal [facility] Comment on above: Performed By: #### U RCX #### [facility] [address] [place] [address] Dr. Marvin Reis UA RANDOM W/MICROSCOPICon BACTERIA LARGE Abnormal NONE SEEN [facility] Comment on above: Performed By: #### U AMIC #### [facility] [address] [place] [address] Dr. Marvin Reis Bilirubin Ql (U) Negative Normal NEGATIVE [facility] Comment on above: Performed By: #### U AMIC #### [facility] [address] [place] [address] Dr. Marvin Reis CAST NONE SEEN Normal NONE SEEN [facility] Comment on above: Performed By: #### U AMIC #### [facility] [address] [place] [address] Dr. Marvin Reis Clarity (U) SL CLOUDY Abnormal CLEAR [facility] Comment on above: Performed By: #### U AMIC #### [facility] [address] [place] [address] Dr. Marvin Reis Color (U) YELLOW Normal YELLOW [facility] Comment on above: Performed By: #### U AMIC #### [facility] [address] [address] [address] Marvin Reis Crystals LM Nom (Urine sed) NONE SEEN Normal NONE SEEN [facility] Comment on above: Performed By: #### U AMIC #### [facility] [address] [address] [address] Marvin Reis Epithelial cells LM Ql (Urine sed) FEW Abnormal NONE SEEN /RARE [facility] Comment on above: Performed By: #### U AMIC #### [facility] [address] [address] [address] Marvin Reis Glucose Ql (U) Negative Normal NEGATIVE [facility] Comment on above: Performed By: #### U AMIC #### [facility] [address] [place] [address] Dr. Marvin Reis Hemoglobin Ql (U) TRACE-INTACT Abnormal NEGATIVE [facility] Comment on above: Performed By: #### U AMIC #### [facility] [address] [address] [address] Marvin Reis Ketones Ql (U) Negative Normal NEGATIVE [facility] Comment on above: Performed By: #### U AMIC #### [facility] [address] [address] [address] Marvin Reis LEUKOCYTES LARGE Abnormal NEGATIVE [facility] Comment on above: Performed By: #### U AMIC #### [facility] [address] [address] [address] Marvin Reis MUCOUS NONE SEEN Normal NONE SEEN [facility] Comment on above: Performed By: #### U AMIC #### [facility] [address] [address] [address] Marvin Reis Nitrite Ql (U) Negative Normal NEGATIVE [facility] Comment on above: Performed By: #### U AMIC #### [facility] [address] [address] [address] Marvin Reis pH (U) 5.0 [pH] Normal 5-9 [facility] Comment on above: Performed By: #### U AMIC #### [facility] [address] [address] [address] Marvin Reis RBC 5-10 Abnormal 0-2 [facility] Comment on above: Performed By: #### U AMIC #### [facility] [address] [address] [address] Mavrin Reis SPEC GRAVITY 1.010 Normal 1.005-<=1.0 25 [facility] Comment on above: Performed By: #### U AMIC #### [facility] [address] [address] [address] Marvin Reis UA PROTEIN Negative Normal NEGATIVE/ TRACE [facility] Comment on above: Performed By: #### U AMIC #### [facility] [address] [address] [address] Marvin Reis Urobilinogen Qn (U) 0.2 {Robibe'U}/dL Normal 0.2 - 1. 0 [facility] Comment on above: Performed By: #### U AMIC #### [facility] [address] [address] [address] Marvin Reis WBC 50-75 Abnormal NONE SEEN [facility] Comment on above: Performed By: #### U AMIC #### [facility] [address] [address] [address] Marvin Reis CULTURE URINEon 10-01-2022 CULTURE URINE Culture Observations : NO GROWTH. Normal [facility] Comment on above: Performed By: #### U AMIC #### [facility] [address] [address] [address] Marvin Reis UA RANDOM W/MICROSCOPICon BACTERIA SMALL Abnormal NONE SEEN [facility] Comment on above: Performed By: #### U AMIC #### [facility] [address] [place] [address] Dr. Marvin Reis Bilirubin Ql (U) Negative Normal NEGATIVE [facility] Comment on above: Performed By: #### U AMIC #### [facility] [address] [place] [address] Dr. Marvin Reis CAST SEEN Abnormal NONE SEEN [facility] Comment on above: Performed By: #### U AMIC #### [facility] [address] [address] [address] Marvin Reis Clarity (U) CLEAR Normal CLEAR [facility] Comment on above: Performed By: #### U AMIC #### [facility] [address] [address] [address] Marvin Reis Color (U) LT. YELLOW Normal YELLOW [facility] Comment on above: Performed By: #### U AMIC #### [facility] [address] [address] [address] Marvin Reis Crystals LM Nom (Urine sed) NONE SEEN Normal NONE SEEN [facility] Comment on above: Performed By: #### U AMIC #### [facility] [address] [place] [address] Dr. Marvin Reis Epithelial cells LM Ql (Urine sed) FEW Abnormal NONE SEEN /RARE [facility] Comment on above: Performed By: #### U AMIC #### [facility] [address] [place] [address] Dr. Marvin Reis Glucose Ql (U) Negative Normal NEGATIVE [facility] Comment on above: Performed By: #### U AMIC #### [facility] [address] [address] [address] Marvin Reis Hemoglobin Ql (U) TRACE-INTACT Abnormal NEGATIVE [facility] Comment on above: Performed By: #### U AMIC #### [facility] [address] [address] [address] Marvin Reis HYALINE CAST FEW Normal [facility] Comment on above: Performed By: #### U AMIC #### [facility] [address] [address] [address] Marvin Reis Ketones Ql (U) Negative Normal NEGATIVE [facility] Comment on above: Performed By: #### U AMIC #### [facility] [address] [address] [address] Marvin Reis LEUKOCYTES MODERATE Abnormal NEGATIVE [facility] Comment on above: Performed By: #### U AMIC #### [facility] [address] [address] [address] Marvin Reis MUCOUS SMALL Abnormal NONE SEEN [facility] Comment on above: Performed By: #### U AMIC #### [facility] [address] [address] [address] Marvin Reis Nitrite Ql (U) Negative Normal NEGATIVE [facility] Comment on above: Performed By: #### U AMIC #### [facility] [address] [place] [address] Dr. Marvin Reis pH (U) 5.5 [pH] Normal 5-9 [facility] Comment on above: Performed By: #### U AMIC #### [facility] [address] [place] [address] Dr. Marvin Reis RBC 0-2 Normal 0-2 [facility] Comment on above: Performed By: #### U AMIC #### [facility] [address] [place] [address] Dr. Marvin Reis SPEC GRAVITY 1.020 Normal 1.005-<=1.[address] [place] [address] Comment on above: Performed By: #### U AMIC #### [facility] [address] [place] [address] Dr. Marvin Reis UA PROTEIN Negative Normal NEGATIVE/ TRACE [facility] Comment on above: Performed By: #### U AMIC #### [facility] [address] [place] [address] Dr. Marvin Reis Urobilinogen Qn (U) 0.2 {Robbie'U}/dL Normal 0.2 - 1. 0 [facility] Comment on above: Performed By: #### U AMIC #### [facility] [address] [place] [address] Dr. Marvin Reis WBC 10-20 Abnormal NONE SEEN [facility] Comment on above: Performed By: #### U AMIC #### [facility] [address] [place] [address] Dr. Marvin Reis CULTURE URINEon 09-26-2022 CULTURE URINE Isolate 1 Enterobacter aerogenes >100,000 cfu/mL of ORGANISM 1 Enterobacter aerogenes ANTIBIOTIC M.I.C RX STATUS Piperacillin/Tazobactam 16 S F Cefazolin <=4 R F Ceftazidime <=1 S F Ceftriaxone <=1 S F Ertapenem <=0.5 S F Imipenem <=0.25 S F Amikacin <=2 S F Gentamicin <=1 S F Tobramycin <=1 S F Ciprofloxacin <=0.25 S F Levofloxacin 1 S F Nitrofurantoin 64 I F Trimethoprim/Sulfamethoxazo le <=20 S F Normal [facility] Comment on above: Performed By: #### U RCX #### [facility] [address] [place] [address] Dr. Marvin Reis CBC W MANUAL DIFFon 09-25-20 ANISOCYTOSIS SLIGHT Normal [facility] Comment on above: Performed By: #### U RCX #### [facility] [address] [place] [address] Dr. Marvin Reis ATYPICAL LYMPH # Normal [facility] Comment on above: Performed By: #### U RCX #### [facility] [address] [place] [address] Dr. Marvin Reis ATYPICAL LYMPH % Normal [facility] Comment on above: Performed By: #### U RCX #### [facility] [address] [place] [address] Dr. Marvin Reis BAND # Normal 0.0-0.3 [facility] Comment on above: Performed By: #### U RCX #### [facility] [address] [place] [address] Dr. Marvin Reis BAND % Normal 0-5 [facility] Comment on above: Performed By: #### U RCX #### [facility] [address] [place] [address] Dr. Marvin Reis BASOM # 0.00 103/ul Normal 0.00-0.10 [facility] Comment on above: Performed By: #### U RCX #### [facility] [address] [place] [address] Dr. Marvin Reis BASOM % 0.0 % Critically low 0.2-2.0 [facility] Comment on above: Performed By: #### U RCX #### [facility] [address] [address] [address] Marvin Reis BLAST # Normal [facility] Comment on above: Performed By: #### U RCX #### [facility] [address] [place] [address] Dr. Marvin Reis BLAST % Normal [facility] Comment on above: Performed By: #### U RCX #### [facility] [address] [place] [address] Dr. Marvin Reis CORRECTED WBC Normal 4.0-11.0 [facility] Comment on above: Performed By: #### U RCX #### [facility] [address] [place] [address] Dr. Marvin Reis EOS # 0.00 103/ul Normal 0.00-0.70 [facility] Comment on above: Performed By: #### U RCX #### [facility] [address] [place] [address] Dr. Marvin Reis EOS% 0.0 % Critically low 0.9-7.0 [facility] Comment on above: Performed By: #### U RCX #### [facility] [address] [place] [address] Dr. Marvin Reis HCT 32.1 % Critically low 42.0-54.0 [facility] Comment on above: Performed By: #### U RCX #### [facility] [address] [place] [address] Dr. Marvin Reis HGB 10.2 g/dl Critically low 14.0-18.0 [facility] Comment on above: Performed By: #### U RCX #### [facility] [address] [place] [address] Dr. Marvin Reis LYMPHM # 0.76 103/ul Critically low 1.20-3.80 [facility] Comment on above: Performed By: #### U RCX #### [facility] [address] [place] [address] Dr. Marvin Reis LYMPHM% 14.0 % Critically low 20.5-60.0 [facility] Comment on above: Performed By: #### U RCX #### [facility] [address] [address] [address] Marvin Reis MCH 26.5 pg Normal 25.9-34.0 [facility] Comment on above: Performed By: #### U RCX #### [facility] [address] [place] [address] Dr. Marvin Reis MCHC 31.8 g/dl Normal 29.9-35.2 [facility] Comment on above: Performed By: #### U RCX #### [facility] [address] [place] [address] Dr. Marvin Reis MCV 83.4 fL Normal 80.0-94.0 [facility] Comment on above: Performed By: #### U RCX #### [facility] [address] [place] [address] Dr. Marvin Reis METAMYELOCYTE # Normal [facility] Comment on above: Performed By: #### U RCX #### [facility] [address] [place] [address] Dr. Marvin Reis METAMYELOCYTE % Normal [facility] Comment on above: Performed By: #### U RCX #### [facility] [address] [place] [address] Dr. Marvin Reis MONOM# 0.27 103/ul Critically low 0.30-0.80 [facility] Comment on above: Performed By: #### U RCX #### [facility] [address] [place] [address] Dr. Marvin Reis MONOM% 5.0 % Normal 1.7-12.0 [facility] Comment on above: Performed By: #### U RCX #### [facility] [address] [place] [address] Dr. Marvin Reis MPV 9.8 fL Normal 9.5-13.5 [facility] Comment on above: Performed By: #### U RCX #### [facility] [address] [place] [address] Dr. Marvin Reis MYELOCYTE # Normal [facility] Comment on above: Performed By: #### U RCX #### [facility] [address] [address] [address] Marvin Reis MYELOCYTE % Normal [facility] Comment on above: Performed By: #### U RCX #### [facility] [address] [address] [address] Marvin Reis NRBC Normal [facility] Comment on above: Performed By: #### U RCX #### [facility] [address] [address] [address] Marvin Reis PLT 78 103/ul Critically low 150-450 [facility] Comment on above: Performed By: #### U RCX #### [facility] [address] [place] [address] Dr. Marvin Reis RBC 3.85 106/ul Critically low 4.70-6.10 [facility] Comment on above: Performed By: #### U RCX #### [facility] [address] [place] [address] Dr. Marvin Resi RDW 15.8 % Critically high 11.0-15.0 [facility] Comment on above: Performed By: #### U RCX #### [facility] [address] [place] [address] Dr. Marvin Reis SEG # 4.37 103/ul Normal 1.40-6.50 [facility] Comment on above: Performed By: #### U RCX #### [facility] [address] [place] [address] Dr. Marvin Reis SEG % 81.0 % Critically high 43.0-75.0 [facility] Comment on above: Performed By: #### U RCX #### [facility] [address] [address] [address] Marvin Reis WBC 5.4 103/ul Normal 4.0-11.0 [facility] Comment on above: Performed By: #### U RCX #### [facility] [address] [place] [address] Dr. Marvin Reis CRPon 09-25-2022 CRP 8.9 mg/dL Critically high <=1.0 [facility] Comment on above: Performed By: #### U AMIC #### [facility] [address] [place] [address] Dr. Marvin Reis LACTATE/LACTIC ACIDon 2021 Lactate [Moles/Vol] 0.9 mmol/L Normal 0.4-1.9 [facility] Comment on above: Performed By: #### U RCX #### [facility] [address] [place] [address] Dr. Marvin Reis PROF 14(COMP METB)on 022 Albumin [Mass/Vol] 2.6 g/dL Critically low 3.4-5.0 Th e [facility] Comment on above: Performed By: #### U AMIC #### [facility] [address] [place] [address] Dr. Marvin Reis Albumin/Globulin [Mass ratio] 0.7 {ratio} Normal [facility] Comment on above: Performed By: #### U AMIC #### [facility] [address] [place] [address] Dr. Marvin Reis ALP [Catalytic activity/Vol] 75 U/L Normal 46-116 [facility] Comment on above: Performed By: #### U AMIC #### [facility] [address] [place] [address] Dr. Marvin Reis ALT [Catalytic activity/Vol] 23 U/L Normal 16-63 [facility] Comment on above: Performed By: #### U AMIC #### [facility] [address] [place] [address] Dr. Marvin Reis Anion gap [Moles/Vol] 11.8 mmol/L Normal [facility] Comment on above: Performed By: #### U AMIC #### [facility] [address] [place] [address] Dr. Marvin Reis AST [Catalytic activity/Vol] 21 U/L Normal 15-37 [facility] Comment on above: Performed By: #### U AMIC #### [facility] [address] [place] [address] Dr. Marvin Reis Bilirubin [Mass/Vol] 0.8 mg/dL Normal 0.2-1.0 [facility] Comment on above: Performed By: #### U AMIC #### [facility] [address] [place] [address] Dr. Marvin Reis Calcium [Mass/Vol] 8.7 mg/dL Normal 8.5-10.1 [facility] Comment on above: Performed By: #### U AMIC #### [facility] [address] [address] [address] Marvin Reis Chloride [Moles/Vol] 105 mmol/L Normal 98-107 [facility] Comment on above: Performed By: #### U AMIC #### [facility] [address] [place] [address] Dr. Marvin Reis CO2 [Moles/Vol] 26.1 mmol/L Normal 21.0-32.0 [facility] Comment on above: Performed By: #### U AMIC #### [facility] [address] [place] [address] Dr. Marvin Reis Creatinine [Mass/Vol] 0.88 mg/dL Normal 0.70-1.30 [facility] Comment on above: Performed By: #### U AMIC #### [facility] [address] [place] [address] Dr. Marvin Reis EGFR-AF ENGLISH >60 Normal >=60 [facility] Comment on above: Performed By: #### U AMIC #### [facility] [address] [place] [address] Dr. Marvin Reis EGFR-NON AF ENGLISH >60 Normal >=60 [facility] Comment on above: Performed By: #### U AMIC #### [facility] [address] [address] [address] Marvin Reis Globulin (S) [Mass/Vol] 3.7 g/dL Normal [facility] Comment on above: Performed By: #### U AMIC #### [facility] [address] [place] [address] Dr. Marvin Reis Glucose [Mass/Vol] 93 mg/dL Normal 74-106 [facility] Comment on above: Performed By: #### U AMIC #### [facility] [address] [address] [address] Marvin Reis Potassium [Moles/Vol] 3.9 mmol/L Normal 3.5-5.1 [facility] Comment on above: Performed By: #### U AMIC #### [facility] [address] [address] [address] Marvin Reis Protein [Mass/Vol] 6.3 g/dL Critically low 6.4-8.2 [facility] Comment on above: Performed By: #### U AMIC #### [facility] [address] [address] [address] Marvin Reis Sodium [Moles/Vol] 139 mmol/L Normal 136-145 [facility] Comment on above: Performed By: #### U AMIC #### [facility] [address] [address] [address] Marvin Reis Urea nitrogen [Mass/Vol] 20.0 mg/dL Critically high 7.0-18.0 [facility] Comment on above: Performed By: #### U AMIC #### [facility] [address] [address] [address] Marvin Reis Urea nitrogen/Creatinine [Mass ratio] 22.7 mg/mg Normal [facility] Comment on above: Performed By: #### U AMIC #### [facility] [address] [address] [address] [facility] 49 mm/hr Critically high <=20 [facility] Comment on above: Performed By: #### U AMIC #### [facility] [address] [address] [address] Marvin Reis CBC W MANUAL DIFFon 09-24-20 22 ATYPICAL LYMPH # Normal [facility] Comment on above: Performed By: #### U RCX #### [facility] [address] [address] [address] Marvin Reis ATYPICAL LYMPH % Normal [facility] Comment on above: Performed By: #### U RCX #### [facility] [address] [address] [address] Marvin Reis BAND # Normal 0.0-0.3 [facility] Comment on above: Performed By: #### U RCX #### [facility] [address] [address] [address] Marvin Reis BAND % Normal 0-5 [facility] Comment on above: Performed By: #### U RCX #### [facility] [address] [address] [address] Marvin Reis BASOM # 0.00 103/ul Normal 0.00-0.10 [facility] Comment on above: Performed By: #### U RCX #### [facility] [address] [place] [address] Dr. Marvin Reis BASOM % 0.0 % Critically low 0.2-2.0 [facility] Comment on above: Performed By: #### U RCX #### [facility] [address] [place] [address] Dr. Marvin Reis BLAST # Normal [facility] Comment on above: Performed By: #### U RCX #### [facility] [address] [place] [address] Dr. Marvin Reis BLAST % Normal [facility] Comment on above: Performed By: #### U RCX #### [facility] [address] [place] [address] Dr. Marvin Reis CORRECTED WBC Normal 4.0-11.0 [facility] Comment on above: Performed By: #### U RCX #### [facility] [address] [place] [address] Dr. Marvin Reis EOS # 0.00 103/ul Normal 0.00-0.70 [facility] Comment on above: Performed By: #### U RCX #### [facility] [address] [place] [address] Dr. Marvin Reis EOS% 0.0 % Critically low 0.9-7.0 [facility] Comment on above: Performed By: #### U RCX #### [facility] [address] [address] [address] Marvin Reis HCT 33.5 % Critically low 42.0-54.0 [facility] Comment on above: Performed By: #### U RCX #### [facility] [address] [place] [address] Dr. Marvin Reis HGB 10.9 g/dl Critically low 14.0-18.0 [facility] Comment on above: Performed By: #### U RCX #### [facility] [address] [place] [address] Dr. Marvin Reis LYMPHM # 0.52 103/ul Critically low 1.20-3.80 [facility] Comment on above: Performed By: #### U RCX #### [facility] [address] [place] [address] Dr. Marvin Reis LYMPHM% 4.0 % Critically low 20.5-60.0 [facility] Comment on above: Performed By: #### U RCX #### [facility] [address] [place] [address] Dr. Marvin Reis MCH 27.2 pg Normal 25.9-34.0 [facility] Comment on above: Performed By: #### U RCX #### [facility] [address] [place] [address] Dr. Marvin Reis MCHC 32.5 g/dl Normal 29.9-35.2 [facility] Comment on above: Performed By: #### U RCX #### [facility] [address] [place] [address] Dr. Marvin Reis MCV 83.5 fL Normal 80.0-94.0 [facility] Comment on above: Performed By: #### U RCX #### [facility] [address] [place] [address] Dr. Marvin Reis METAMYELOCYTE # Normal [facility] Comment on above: Performed By: #### U RCX #### [facility] [address] [place] [address] Dr. Marvin Reis METAMYELOCYTE % Normal [facility] Comment on above: Performed By: #### U RCX #### [facility] [address] [place] [address] Dr. Marvin Reis MONOM# 0.39 103/ul Normal 0.30-0.80 [facility] Comment on above: Performed By: #### U RCX #### [facility] [address] [place] [address] Dr. Marvin Reis MONOM% 3.0 % Normal 1.7-12.0 [facility] Comment on above: Performed By: #### U RCX #### [facility] [address] [place] [address] Dr. Marvin Reis MPV 10.5 fL Normal 9.5-13.5 [facility] Comment on above: Performed By: #### U RCX #### [facility] [address] [place] [address] Dr. Marvin Reis MYELOCYTE # Normal [facility] Comment on above: Performed By: #### U RCX #### [facility] [address] [place] [address] Dr. Marvin Reis MYELOCYTE % Normal [facility] Comment on above: Performed By: #### U RCX #### [facility] [address] [place] [address] Dr. Marvin Reis NRBC Normal [facility] Comment on above: Performed By: #### U RCX #### [facility] [address] [place] [address] Dr. Marvin Reis PLT 96 103/ul Critically low 150-450 [facility] Comment on above: Performed By: #### U RCX #### [facility] [address] [place] [address] Dr. Marvin Reis RBC 4.01 106/ul Critically low 4.70-6.10 [facility] Comment on above: Performed By: #### U RCX #### [facility] [address] [place] [address] Dr. Marvin Reis RDW 15.8 % Critically high 11.0-15.0 [facility] Comment on above: Performed By: #### U RCX #### [facility] [address] [address] [address] Marvin Reis SEG # 12.00 103/ul Critically high 1.40-6.50 [facility] Comment on above: Performed By: #### U RCX #### [facility] [address] [address] [address] Marvin Reis SEG % 93.0 % Critically high 43.0-75.0 [facility] Comment on above: Performed By: #### U RCX #### [facility] [address] [address] [address] Marvin Reis WBC 12.9 103/ul Critically high 4.0-11.0 [facility] Comment on above: Performed By: #### U RCX #### [facility] [address] [place] [address] Dr. Marvin Reis CRPon 09-24-2022 CRP 8.4 mg/dL Critically high <=1.0 [facility] Comment on above: Performed By: #### U AMIC #### [facility] [address] [place] [address] Dr. Marvin Reis LACTATE/LACTIC ACIDon 2021 Lactate [Moles/Vol] 2.2 mmol/L Critically high 0.4-1.9 [facility] Comment on above: Performed By: #### L ACT #### [facility] [address] [place] [address] Dr. Marvin Reis PROF 14(COMP METB)on 022 Albumin [Mass/Vol] 2.8 g/dL Critically low 3.4-5.0 Th [facility] Comment on above: Performed By: #### U AMIC #### [facility] [address] [place] [address] Dr. Marvin Reis Albumin/Globulin [Mass ratio] 0.7 {ratio} Normal [facility] Comment on above: Performed By: #### U AMIC #### [facility] [address] [place] [address] Dr. Marvin Reis ALP [Catalytic activity/Vol] 80 U/L Normal 46-116 [facility] Comment on above: Performed By: #### U AMIC #### [facility] [address] [address] [address] Marvin Reis ALT [Catalytic activity/Vol] 20 U/L Normal 16-63 [facility] Comment on above: Performed By: #### U AMIC #### [facility] [address] [address] [address] Marvin Reis Anion gap [Moles/Vol] 12.3 mmol/L Normal [facility] Comment on above: Performed By: #### U AMIC #### [facility] [address] [address] [address] Marvin Reis AST [Catalytic activity/Vol] 17 U/L Normal 15-37 [facility] Comment on above: Performed By: #### U AMIC #### [facility] [address] [address] [address] Marvin Reis Bilirubin [Mass/Vol] 1.0 mg/dL Normal 0.2-1.0 [facility] Comment on above: Performed By: #### U AMIC #### [facility] [address] [address] [address] Marvin Reis Calcium [Mass/Vol] 9.0 mg/dL Normal 8.5-10.1 [facility] Comment on above: Performed By: #### U AMIC #### [facility] [address] [address] [address] Marvin Reis Chloride [Moles/Vol] 106 mmol/L Normal 98-107 [facility] Comment on above: Performed By: #### U AMIC #### [facility] [address] [address] [address] Marvin Reis CO2 [Moles/Vol] 25.8 mmol/L Normal 21.0-32.0 [facility] Comment on above: Performed By: #### U AMIC #### [facility] [address] [address] [address] Marvin Reis Creatinine [Mass/Vol] 1.08 mg/dL Normal 0.70-1.30 [facility] Comment on above: Performed By: #### U AMIC #### [facility] [address] [address] [address] Marvin Reis EGFR-AF ENGLISH >60 Normal >=60 [facility] Comment on above: Performed By: #### U AMIC #### [facility] [address] [address] [address] Marvin Reis EGFR-NON AF ENGLISH >60 Normal >=60 [facility] Comment on above: Performed By: #### U AMIC #### [facility] [address] [address] [address] Marvin Reis Globulin (S) [Mass/Vol] 3.8 g/dL Normal [facility] Comment on above: Performed By: #### U AMIC #### [facility] [facility] [address] [address] [address] Marvin Reis Glucose [Mass/Vol] 117 mg/dL Critically high 74-106 [facility] Comment on above: Performed By: #### U AMIC #### [facility] [address] [address] [address] Marvin Reis Potassium [Moles/Vol] 4.1 mmol/L Normal 3.5-5.1 [facility] Comment on above: Performed By: #### U AMIC #### [facility] [address] [address] [address] Marvin Reis Protein [Mass/Vol] 6.6 g/dL Normal 6.4-8.2 [facility] Comment on above: Performed By: #### U AMIC #### [facility] [address] [address] [address] Marvin Reis Sodium [Moles/Vol] 140 mmol/L Normal 136-145 [facility] Comment on above: Performed By: #### U AMIC #### [facility] [address] [address] [address] Marvin Reis Urea nitrogen [Mass/Vol] 23.0 mg/dL Critically high 7.0-18.0 [facility] Comment on above: Performed By: #### U AMIC #### [facility] [address] [address] [address] Marvin Reis Urea nitrogen/Creatinine [Mass ratio] 21.3 mg/mg Normal [facility] Comment on above: Performed By: #### U AMIC #### [facility] [address] [address] [address] Marvin Reis SED RATE WESTERGREN 2021 SED RATE 51 mm/hr Critically high <=20 [facility] Comment on above: Performed By: #### U RCX #### [facility] [address] [address] [address] Marvin Reis UA RANDOMon 09-24-2022 Bilirubin Ql (U) Negative Normal NEGATIVE [facility] Comment on above: Performed By: #### U AMIC #### [facility] [address] [place] [address] Dr. Marvin Reis Clarity (U) CLEAR Normal CLEAR [facility] Comment on above: Performed By: #### U AMIC #### [facility] [address] [place] [address] Dr. Marvin Reis Color (U) LT. YELLOW Normal YELLOW [facility] Comment on above: Performed By: #### U AMIC #### [facility] [address] [place] [address] Dr. Marvin Reis Glucose Ql (U) Negative Normal NEGATIVE [facility] Comment on above: Performed By: #### U AMIC #### [facility] [address] [address] [address] Marvin Reis Hemoglobin Ql (U) LARGE Abnormal NEGATIVE [facility] Comment on above: Performed By: #### U AMIC #### [facility] [address] [address] [address] Marvin Reis Ketones Ql (U) Negative Normal NEGATIVE [facility] Comment on above: Performed By: #### U AMIC #### [facility] [address] [place] [address] Dr. Marvin Reis LEUKOCYTES MODERATE Abnormal NEGATIVE [facility] Comment on above: Performed By: #### U AMIC #### [facility] [address] [place] [address] Dr. Marvin Reis Nitrite Ql (U) Negative Normal NEGATIVE [facility] Comment on above: Performed By: #### U AMIC #### [facility] [address] [place] [address] Dr. Marvin Reis pH (U) 5.5 [pH] Normal 5-9 [facility] Comment on above: Performed By: #### U AMIC #### [facility] [address] [place] [address] Dr. Marvin Reis SPEC GRAVITY 1.020 Normal 1.005-<=1.0 25 [facility] Comment on above: Performed By: #### U AMIC #### [facility] [address] [place] [address] Dr. Marvin Reis UA PROTEIN Negative Normal NEGATIVE/ TRACE [facility] Comment on above: Performed By: #### U AMIC #### [facility] [address] [place] [address] Dr. Marvin Reis Urobilinogen Qn (U) 0.2 {Robbie'U}/dL Normal 0.2 - 1. 0 [facility] Comment on above: Performed By: #### U AMIC #### [facility] [address] [place] [address] Dr. Marvin Reis CULTURE URINEon 09-13-2022 CULTURE URINE Culture Observations : METHICILLIN RESISTANT STAPH AUREUS ISOLATED. PLEASE FOLLOW APPROPRIATE ISOLATION PROCEDURES. Isolate 1 Staphylococcus aureus <10,000 cfu/mL of ORGANISM 1 Staphylococcus aureus ANTIBIOTIC M.I.C RX STATUS Beta-Lactamase Pos POS F Cefoxitin Screen Pos POS F Benzylpenicillin >=0.5 R F Ciprofloxacin >=8 R F Levofloxacin >=8 R F Inducible Clindamycin Resistance Neg NEG F Quinupristin/Dalfopristin <=0.25 S F Linezolid 1 S F Vancomycin <=0.5 S F Tetracycline <=1 S F Nitrofurantoin <=16 S F Rifampicin <=0.5 S F Trimethoprim/Sulfamethoxazo le >=320 R F Oxacillin >=4 R F Normal [facility] Comment on above: Performed By: #### U RCX #### [facility] [address] [address] [address] Marvin Reis UA RANDOM W/MICROSCOPICon BACTERIA TRACE Abnormal NONE SEEN [facility] Comment on above: Performed By: #### U AMIC #### [facility] [address] [address] [address] Marvin Reis Bilirubin Ql (U) Negative Normal NEGATIVE [facility] Comment on above: Performed By: #### U AMIC #### [facility] [address] [place] [address] Dr. Marvin Reis CAST NONE SEEN Normal NONE SEEN [facility] Comment on above: Performed By: #### U AMIC #### [facility] [address] [place] [address] Dr. Marvin Reis Clarity (U) CLEAR Normal CLEAR [facility] Comment on above: Performed By: #### U AMIC #### [facility] [address] [place] [address] Dr. Marvin Reis Color (U) LT. YELLOW Normal YELLOW [facility] Comment on above: Performed By: #### U AMIC #### [facility] [address] [place] [address] Dr. Marvin Reis Crystals LM Nom (Urine sed) NONE SEEN Normal NONE SEEN [facility] Comment on above: Performed By: #### U AMIC #### [facility] [address] [place] [address] Dr. Marvin Reis Epithelial cells LM Ql (Urine sed) FEW Abnormal NONE SEEN /RARE [facility] Comment on above: Performed By: #### U AMIC #### [facility] [address] [place] [address] Dr. Marvin Reis Glucose Ql (U) Negative Normal NEGATIVE [facility] Comment on above: Performed By: #### U AMIC #### [facility] [address] [place] [address] Dr. Marvin Reis Hemoglobin Ql (U) Negative Normal NEGATIVE [facility] Comment on above: Performed By: #### U AMIC #### [facility] [address] [place] [address] Dr. Marvin Reis Ketones Ql (U) Negative Normal NEGATIVE [facility] Comment on above: Performed By: #### U AMIC #### [facility] [address] [address] [address] Marvin Reis LEUKOCYTES LARGE Abnormal NEGATIVE [facility] Comment on above: Performed By: #### U AMIC #### [facility] [address] [address] [address] Marvin Reis MUCOUS NONE SEEN Normal NONE SEEN [facility] Comment on above: Performed By: #### U AMIC #### [facility] [address] [address] [address] Marvin Reis Nitrite Ql (U) Negative Normal NEGATIVE [facility] Comment on above: Performed By: #### U AMIC #### [facility] [address] [place] [address] Dr. Marvin Reis pH (U) 5.5 [pH] Normal 5-9 [facility] Comment on above: Performed By: #### U AMIC #### [facility] [address] [place] [address] Dr. Marvin Reis RBC 0-2 Normal 0-2 [facility] Comment on above: Performed By: #### U AMIC #### [facility] [address] [place] [address] Dr. Marvin Reis SPEC GRAVITY 1.025 Normal 1.005-<=1.0 25 [facility] Comment on above: Performed By: #### U AMIC #### [facility] [address] [place] [address] Dr. Marvin Reis UA PROTEIN Negative Normal NEGATIVE/ TRACE [facility] Comment on above: Performed By: #### U AMIC #### [facility] [address] [place] [address] Dr. Marvin Reis Urobilinogen Qn (U) 0.2 {Robbie'U}/dL Normal 0.2 - 1. 0 [facility] Comment on above: Performed By: #### U AMIC #### [facility] [address] [place] [address] Dr. Marvin Reis WBC 10-20 Abnormal NONE SEEN [facility] Comment on above: Performed By: #### U AMIC #### [facility] [address] [place] [address] Dr. Marvin Reis CULTURE URINEon 08-17-2022 CULTURE URINE Isolate 1 Enterobacter aerogenes >100,000 cfu/ml of ORGANISM 1 Enterobacter aerogenes ANTIBIOTIC M.I.C RX STATUS Piperacillin/Tazobactam 32 I F Cefazolin >=64 R F Ceftazidime 16 I F Ceftriaxone 8 S F Imipenem 0.5 S F Amikacin <=2 S F Gentamicin <=1 S F Tobramycin <=1 S F Ciprofloxacin <=0.25 S F Levofloxacin 1 S F Nitrofurantoin 64 I F Trimethoprim/Sulfamethoxazo le <=20 S F Normal [facility] Comment on above: Performed By: #### U RCX #### [facility] [address] [place] [address] Dr. Marvin Reis UA RANDOM W/MICROSCOPICon BACTERIA MODERATE Abnormal NONE SEEN [facility] Comment on above: Performed By: #### U RCX #### [facility] [address] [place] [address] Dr. Marvin Reis Bilirubin Ql (U) Negative Normal NEGATIVE [facility] Comment on above: Performed By: #### U RCX #### [facility] [address] [place] [address] Dr. Marvin Reis CAST NONE SEEN Normal NONE SEEN [facility] Comment on above: Performed By: #### U RCX #### [facility] [address] [place] [address] Dr. Marvin Reis Clarity (U) SL CLOUDY Abnormal CLEAR [facility] Comment on above: Performed By: #### U RCX #### [facility] [address] [place] [address] Dr. Marvin Reis Color (U) LT. YELLOW Normal YELLOW [facility] Comment on above: Performed By: #### U RCX #### [facility] [address] [place] [address] Dr. Marvin Reis Crystals LM Nom (Urine sed) NONE SEEN Normal NONE SEEN [facility] Comment on above: Performed By: #### U RCX #### [facility] [address] [place] [address] Dr. Marvin Reis Epithelial cells LM Ql (Urine sed) RARE Normal NONE SEEN /RARE [facility] Comment on above: Performed By: #### U RCX #### [facility] [address] [place] [address] Dr. Marvin Reis Glucose Ql (U) Negative Normal NEGATIVE [facility] Comment on above: Performed By: #### U RCX #### [facility] [address] [place] [address] Dr. Marvin eRis Hemoglobin Ql (U) SMALL Abnormal NEGATIVE [facility] Comment on above: Performed By: #### U RCX #### [facility] [address] [place] [address] Dr. Marvin Reis Ketones Ql (U) Negative Normal NEGATIVE [facility] Comment on above: Performed By: #### U RCX #### [facility] [address] [place] [address] Dr. Marvin Reis LEUKOCYTES MODERATE Abnormal NEGATIVE [facility] Comment on above: Performed By: #### U RCX #### [facility] [address] [place] [address] Dr. Marvin Reis MUCOUS NONE SEEN Normal NONE SEEN [facility] Comment on above: Performed By: #### U RCX #### [facility] [address] [place] [address] Dr. Marvin Reis Nitrite Ql (U) Positive Abnormal NEGATIVE [facility] Comment on above: Performed By: #### U RCX #### [facility] [address] [place] [address] Dr. Marvin Reis pH (U) 6.0 [pH] Normal 5-9 [facility] Comment on above: Performed By: #### U RCX #### [facility] [address] [place] [address] Dr. Marvin Reis RBC 0-2 Normal 0-2 [facility] Comment on above: Performed By: #### U RCX #### [facility] [address] [place] [address] Dr. Marvin Reis SPEC GRAVITY 1.015 Normal 1.005-<=1.0 25 [facility] Comment on above: Performed By: #### U RCX #### [facility] [address] [place] [address] Dr. Marvin Reis UA PROTEIN Negative Normal NEGATIVE/ TRACE [facility] Comment on above: Performed By: #### U RCX #### [facility] [address] [place] [address] Dr. Marvin Reis Urobilinogen Qn (U) 0.2 {Robbie'U}/dL Normal 0.2 - 1. 0 [facility] Comment on above: Performed By: #### U RCX #### [facility] [address] [place] [address] Dr. Marvin Reis WBC 10-20 Abnormal NONE SEEN [facility] Comment on above: Performed By: #### U RCX #### [facility] [address] [place] [address] Dr. Marvin Reis CULTURE URINEon 08-02-2022 CULTURE URINE Isolate 1 Enterobacter aerogenes >100,000 cfu/mL of ORGANISM 1 Enterobacter aerogenes ANTIBIOTIC M.I.C RX STATUS Piperacillin/Tazobactam 16 S F Cefazolin <=4 R F Ceftazidime <=1 S F Ceftriaxone <=1 S F Ertapenem <=0.5 S F Imipenem <=0.25 S F Amikacin <=2 S F Gentamicin <=1 S F Tobramycin <=1 S F Ciprofloxacin <=0.25 S F Levofloxacin 1 S F Nitrofurantoin 64 I F Trimethoprim/Sulfamethoxazo le <=20 S F Normal [facility] Comment on above: Performed By: #### U RCX #### [facility] [address] [place] [address] Dr. Marvin Reis UA RANDOM W/MICROSCOPICon BACTERIA MODERATE Abnormal NONE SEEN [facility] Comment on above: Performed By: #### U AMIC #### [facility] [address] [place] [address] Dr. Marvin Reis Bilirubin Ql (U) Negative Normal NEGATIVE [facility] Comment on above: Performed By: #### U AMIC #### [facility] [address] [address] [address] Marvin Reis CAST NONE SEEN Normal NONE SEEN [facility] Comment on above: Performed By: #### U AMIC #### [facility] [address] [address] [address] Marvin Reis Clarity (U) SL CLOUDY Abnormal CLEAR [facility] Comment on above: Performed By: #### U AMIC #### [facility] [address] [address] [address] Marvin Reis Color (U) LT. YELLOW Normal YELLOW [facility] Comment on above: Performed By: #### U AMIC #### [facility] [address] [place] [address] Dr. Marvin Reis Crystals LM Nom (Urine sed) NONE SEEN Normal NONE SEEN [facility] Comment on above: Performed By: #### U AMIC #### [facility] [address] [address] [address] Marvin Reis Epithelial cells LM Ql (Urine sed) NONE SEEN Normal NONE SEEN /RARE [facility] Comment on above: Performed By: #### U AMIC #### [facility] [address] [address] [address] Marvin Reis Glucose Ql (U) Negative Normal NEGATIVE [facility] Comment on above: Performed By: #### U AMIC #### [facility] [address] [address] [address] Marvin Reis Hemoglobin Ql (U) TRACE-INTACT Abnormal NEGATIVE [facility] Comment on above: Performed By: #### U AMIC #### [facility] [address] [address] [address] Marvin Reis Ketones Ql (U) Negative Normal NEGATIVE [facility] Comment on above: Performed By: #### U AMIC #### [facility] [address] [address] [address] Marvin Reis LEUKOCYTES MODERATE Abnormal NEGATIVE [facility] Comment on above: Performed By: #### U AMIC #### [facility] [address] [address] [address] Marvin Reis MUCOUS NONE SEEN Normal NONE SEEN [facility] Comment on above: Performed By: #### U AMIC #### [facility] [address] [place] [address] Dr. Marvin Reis Nitrite Ql (U) Positive Abnormal NEGATIVE [facility] Comment on above: Performed By: #### U AMIC #### [facility] [address] [place] [address] Dr. Marvin Reis pH (U) 6.0 [pH] Normal 5-9 [facility] Comment on above: Performed By: #### U AMIC #### [facility] [address] [place] [address] Dr. Marvin Reis RBC 0-2 Normal 0-2 [facility] Comment on above: Performed By: #### U AMIC #### [facility] [address] [place] [address] Dr. Marvin Reis SPEC GRAVITY 1.015 Normal 1.005-<=1.0 25 [facility] Comment on above: Performed By: #### U AMIC #### [facility] [address] [place] [address] Dr. Marvin Reis UA PROTEIN Negative Normal NEGATIVE/ TRACE [facility] Comment on above: Performed By: #### U AMIC #### [facility] [address] [place] [address] Dr. Marvin Reis Urobilinogen Qn (U) 0.2 {Robbie'U}/dL Normal 0.2 - 1. 0 [facility] Comment on above: Performed By: #### U AMIC #### [facility] [address] [place] [address] Dr. Marvin Reis WBC 20-50 Abnormal NONE SEEN [facility] Comment on above: Performed By: #### U AMIC #### [facility] [address] [place] [address] Dr. Marvin Reis CULTURE URINEon 06-27-2022 CULTURE URINE Culture Observations : METHICILLIN RESISTANT STAPH AUREUS ISOLATED. PLEASE FOLLOW APPROPRIATE ISOLATION PROCEDURES. Isolate 1 Staphylococcus aureus 100,000 cfu/mL of ORGANISM 1 Staphylococcus aureus ANTIBIOTIC M.I.C RX STATUS Beta-Lactamase Pos POS F Cefoxitin Screen Pos POS F Benzylpenicillin >=0.5 R F Ciprofloxacin >=8 R F Levofloxacin >=8 R F Inducible Clindamycin Resistance Neg NEG F Quinupristin/Dalfopristin <=0.25 S F Linezolid 2 S F Vancomycin <=0.5 S F Tetracycline <=1 S F Nitrofurantoin <=16 S F Rifampicin <=0.5 S F Trimethoprim/Sulfamethoxazo le >=320 R F Oxacillin >=4 R F Normal [facility] Comment on above: Performed By: #### U AMIC #### [facility] [address] [place] [address] Dr. Marvin Reis UA RANDOM W/MICROSCOPICon BACTERIA LARGE Abnormal NONE SEEN [facility] Comment on above: Performed By: #### U RCX #### [facility] [address] [place] [address] Dr. Marvin Reis Bilirubin Ql (U) Negative Normal NEGATIVE [facility] Comment on above: Performed By: #### U RCX #### [facility] [address] [place] [address] Dr. Marvin Reis CAST NONE SEEN Normal NONE SEEN [facility] Comment on above: Performed By: #### U RCX #### [facility] [address] [place] [address] Dr. Marvin Reis Clarity (U) CLEAR Normal CLEAR [facility] Comment on above: Performed By: #### U RCX #### [facility] [address] [place] [address] Dr. Marvin Reis Color (U) LT. YELLOW Normal YELLOW [facility] Comment on above: Performed By: #### U RCX #### [facility] [address] [place] [address] Dr. Marvin Reis Crystals LM Nom (Urine sed) NONE SEEN Normal NONE SEEN [facility] Comment on above: Performed By: #### U RCX #### [facility] [address] [place] [address] Dr. Marvin Reis Epithelial cells LM Ql (Urine sed) FEW Abnormal NONE SEEN /RARE [facility] Comment on above: Performed By: #### U RCX #### [facility] [address] [place] [address] Dr. Marvin Reis Glucose Ql (U) Negative Normal NEGATIVE [facility] Comment on above: Performed By: #### U RCX #### [facility] [address] [place] [address] Dr. Marvin Reis Hemoglobin Ql (U) TRACE-INTACT Abnormal NEGATIVE [facility] Comment on above: Performed By: #### U RCX #### [facility] [address] [place] [address] Dr. Marvin Reis Ketones Ql (U) Negative Normal NEGATIVE [facility] Comment on above: Performed By: #### U RCX #### [facility] [address] [place] [address] Dr. Marvin Reis LEUKOCYTES LARGE Abnormal NEGATIVE [facility] Comment on above: Performed By: #### U RCX #### [facility] [address] [place] [address] Dr. Marvin Reis MUCOUS NONE SEEN Normal NONE SEEN [facility] Comment on above: Performed By: #### U RCX #### [facility] [address] [place] [address] Dr. Marvin Reis Nitrite Ql (U) Positive Abnormal NEGATIVE [facility] Comment on above: Performed By: #### U RCX #### [facility] [address] [place] [address] Dr. Marvin Reis pH (U) 5.5 [pH] Normal 5-9 [facility] Comment on above: Performed By: #### U RCX #### [facility] [address] [place] [address] Dr. Marvin Reis RBC 2-5 Abnormal 0-2 [facility] Comment on above: Performed By: #### U RCX #### [facility] [address] [place] [address] Dr. Marvin Reis SPEC GRAVITY 1.015 Normal 1.005-<=1.[address] [place] [address] Comment on above: Performed By: #### U RCX #### [facility] [address] [place] [address] Dr. Marvin Reis UA PROTEIN Negative Normal NEGATIVE/ TRACE [facility] Comment on above: Performed By: #### U RCX #### [facility] [address] [place] [address] Dr. Marvin Reis Urobilinogen Qn (U) 0.2 {Robbie'U}/dL Normal 0.2 - 1. 0 [facility] Comment on above: Performed By: #### U RCX #### [facility] [address] [place] [address] Dr. Marvin Reis WBC (U) [#/Vol] /uL Abnormal NONE SEEN [facility] Comment on above: Performed By: #### U RCX #### [facility] [address] [place] [address] Dr. Marvin Reis CULTURE URINEon 05-27-2022 CULTURE [...] F Inducible Clindamycin Resistance Neg NEG F Quinupristin/Dalfopristin <=0.25 S F Linezolid 2 S F Vancomycin <=0.5 S F Tetracycline <=1 S F Nitrofurantoin <=16 S F Rifampicin <=0.5 S F Trimethoprim/Sulfamethoxazo le >=320 R F Oxacillin >=4 R F Normal [facility] Comment on above: Performed By: #### U RCX #### [facility] [address] [place] [address] Dr. Marvin Reis UA RANDOM W/MICROSCOPICon BACTERIA MODERATE Abnormal NONE SEEN [facility] Comment on above: Performed By: #### U RCX #### [facility] [address] [address] [address] Marvin Reis Bilirubin Ql (U) Negative Normal NEGATIVE [facility] Comment on above: Performed By: #### U RCX #### [facility] [address] [place] [address] Dr. Marvin Reis CAST NONE SEEN Normal NONE SEEN [facility] Comment on above: Performed By: #### U RCX #### [facility] [address] [place] [address] Dr. Marvin Reis Clarity (U) SL CLOUDY Abnormal CLEAR [facility] Comment on above: Performed By: #### U RCX #### [facility] [address] [place] [address] Dr. Marvin Reis Color (U) LT. YELLOW Normal YELLOW [facility] Comment on above: Performed By: #### U RCX #### [facility] [address] [place] [address] Dr. Marvin Reis Crystals LM Nom (Urine sed) NONE SEEN Normal NONE SEEN [facility] Comment on above: Performed By: #### U RCX #### [facility] [address] [place] [address] Dr. Marvin Reis Epithelial cells LM Ql (Urine sed) FEW Abnormal NONE SEEN /RARE [facility] Comment on above: Performed By: #### U RCX #### [facility] [address] [place] [address] Dr. Marvin Reis Glucose Ql (U) Negative Normal NEGATIVE [facility] Comment on above: Performed By: #### U RCX #### [facility] [address] [place] [address] Dr. Marvin Reis Hemoglobin Ql (U) SMALL Abnormal NEGATIVE [facility] Comment on above: Performed By: #### U RCX #### [facility] [address] [place] [address] Dr. Marvin Reis Ketones Ql (U) Negative Normal NEGATIVE [facility] Comment on above: Performed By: #### U RCX #### [facility] [address] [place] [address] Dr. Marvin Reis LEUKOCYTES LARGE Abnormal NEGATIVE [facility] Comment on above: Performed By: #### U RCX #### [facility] [address] [address] [address] Marvin Reis MUCOUS TRACE Abnormal NONE SEEN [facility] Comment on above: Performed By: #### U RCX #### [facility] [address] [place] [address] Dr. Marvin Reis Nitrite Ql (U) Negative Normal NEGATIVE [facility] Comment on above: Performed By: #### U RCX #### [facility] [address] [place] [address] Dr. Marvin Reis pH (U) 6.0 [pH] Normal 5-9 [facility] Comment on above: Performed By: #### U RCX #### [facility] [address] [place] [address] Dr. Marvin Reis RBC 2-5 Abnormal 0-2 [facility] Comment on above: Performed By: #### U RCX #### [facility] [address] [place] [address] Dr. Marvin Reis SPEC GRAVITY 1.010 Normal 1.005-<=1.0 25 [facility] Comment on above: Performed By: #### U RCX #### [facility] [address] [place] [address] Dr. Marvin Reis UA PROTEIN Negative Normal NEGATIVE/ TRACE [facility] Comment on above: Performed By: #### U RCX #### [facility] [address] [place] [address] Dr. Marvin Reis Urobilinogen Qn (U) 0.2 {Robbie'U}/dL Normal 0.2 - 1. 0 [facility] Comment on above: Performed By: #### U RCX #### [facility] [address] [place] [address] Dr. Marvin Reis WBC 50-75 Abnormal NONE SEEN [facility] Comment on above: Performed By: #### U RCX #### [facility] [address] [place] [address] Dr. Marvin Reis CULTURE URINEon 04-18-2022 CULTURE [...] F Inducible Clindamycin Resistance Neg NEG F Quinupristin/Dalfopristin <=0.25 S F Linezolid 2 S F Vancomycin 1 S F Tetracycline <=1 S F Nitrofurantoin <=16 S F Rifampicin <=0.5 S F Trimethoprim/Sulfamethoxazo le >=320 R F Oxacillin >=4 R F Normal [facility] Comment on above: Performed By: #### U RCX #### [facility] [address] [place] [address] Dr. Marvin Reis UA RANDOM W/MICROSCOPICon BACTERIA TRACE Abnormal NONE SEEN [facility] Comment on above: Performed By: #### U AMIC #### [facility] [address] [place] [address] Dr. Marvin Reis Bilirubin Ql (U) Negative Normal NEGATIVE [facility] Comment on above: Performed By: #### U AMIC #### [facility] [address] [place] [address] Dr. Marvin Reis CAST NONE SEEN Normal NONE SEEN [facility] Comment on above: Performed By: #### U AMIC #### [facility] [address] [place] [address] Dr. Marvin Reis Clarity (U) CLEAR Normal CLEAR [facility] Comment on above: Performed By: #### U AMIC #### [facility] [address] [place] [address] Dr. Marvin Reis Color (U) LT. YELLOW Normal YELLOW [facility] Comment on above: Performed By: #### U AMIC #### [facility] [address] [place] [address] Dr. Marvin Reis Crystals LM Nom (Urine sed) NONE SEEN Normal NONE SEEN [facility] Comment on above: Performed By: #### U AMIC #### [facility] [address] [address] [address] Marvin Reis Epithelial cells LM Ql (Urine sed) FEW Abnormal NONE SEEN /RARE [facility] Comment on above: Performed By: #### U AMIC #### [facility] [address] [address] [address] Marvin Reis Glucose Ql (U) Negative Normal NEGATIVE [facility] Comment on above: Performed By: #### U AMIC #### [facility] [address] [address] [address] Marvin Reis Hemoglobin Ql (U) TRACE-INTACT Abnormal NEGATIVE [facility] Comment on above: Performed By: #### U AMIC #### [facility] [address] [place] [address] Dr. Marvin Reis Ketones Ql (U) Negative Normal NEGATIVE [facility] Comment on above: Performed By: #### U AMIC #### [facility] [address] [address] [address] Marvin Reis LEUKOCYTES SMALL Abnormal NEGATIVE [facility] Comment on above: Performed By: #### U AMIC #### [facility] [address] [place] [address] Dr. aMrvin Reis MUCOUS NONE SEEN Normal NONE SEEN [facility] Comment on above: Performed By: #### U AMIC #### [facility] [address] [address] [address] Marvin Reis Nitrite Ql (U) Negative Normal NEGATIVE [facility] Comment on above: Performed By: #### U AMIC #### [facility] [address] [place] [address] Dr. Marvin Reis pH (U) 6.0 [pH] Normal 5-9 [facility] Comment on above: Performed By: #### U AMIC #### [facility] [address] [place] [address] Dr. Marvin Reis RBC 0-2 Normal 0-2 [facility] Comment on above: Performed By: #### U AMIC #### [facility] [address] [address] [address] Marvin Reis SPEC GRAVITY 1.010 Normal 1.005-<=1.0 25 [facility] Comment on above: Performed By: #### U AMIC #### [facility] [address] [address] [address] Marvin Reis UA PROTEIN Negative Normal NEGATIVE/ TRACE [facility] Comment on above: Performed By: #### U AMIC #### [facility] [address] [address] [address] Marvin Reis Urobilinogen Qn (U) 0.2 {Robbie'U}/dL Normal 0.2 - 1. 0 [facility] Comment on above: Performed By: #### U AMIC #### [facility] [address] [place] [address] Dr. Marvin Reis WBC 2-5 Abnormal NONE SEEN [facility] Comment on above: Performed By: #### U AMIC #### [facility] [address] [address] [address] Marvin Reis CULTURE URINEon 03-27-2022 CULTURE [...] F Inducible Clindamycin Resistance Neg NEG F Quinupristin/Dalfopristin <=0.25 S F Linezolid 2 S F Vancomycin 1 S F Tetracycline <=1 S F Nitrofurantoin <=16 S F Rifampicin <=0.5 S F Trimethoprim/Sulfamethoxazo le >=320 R F Normal [facility] Comment on above: Performed By: #### U RCX #### [facility] [address] [place] [address] Dr. Marvin Reis UA RANDOM W/MICROSCOPICon BACTERIA TRACE Abnormal NONE SEEN [facility] Comment on above: Performed By: #### U RCX #### [facility] [address] [place] [address] Dr. Marvin Reis Bilirubin Ql (U) Negative Normal NEGATIVE [facility] Comment on above: Performed By: #### U RCX #### [facility] [address] [place] [address] Dr. Marvin Reis CAST NONE SEEN Normal NONE SEEN [facility] Comment on above: Performed By: #### U RCX #### [facility] [address] [place] [address] Dr. Marvin Reis Clarity (U) CLEAR Normal CLEAR [facility] Comment on above: Performed By: #### U RCX #### [facility] [address] [place] [address] Dr. Marvin Reis Color (U) LT. YELLOW Normal YELLOW [facility] Comment on above: Performed By: #### U RCX #### [facility] [address] [place] [address] Dr. Marvin Reis Crystals LM Nom (Urine sed) NONE SEEN Normal NONE SEEN [facility] Comment on above: Performed By: #### U RCX #### [facility] [address] [place] [address] Dr. Marvin Reis Epithelial cells LM Ql (Urine sed) FEW Abnormal NONE SEEN /RARE [facility] Comment on above: Performed By: #### U RCX #### [facility] [address] [place] [address] Dr. Marvin Reis Glucose Ql (U) Negative Normal NEGATIVE [facility] Comment on above: Performed By: #### U RCX #### [facility] [address] [place] [address] Dr. Marvin Reis Hemoglobin Ql (U) SMALL Abnormal NEGATIVE [facility] Comment on above: Performed By: #### U RCX #### [facility] [address] [place] [address] Dr. Marvin Reis Ketones Ql (U) Negative Normal NEGATIVE [facility] Comment on above: Performed By: #### U RCX #### [facility] [address] [place] [address] Dr. Marvin Reis LEUKOCYTES MODERATE Abnormal NEGATIVE [facility] Comment on above: Performed By: #### U RCX #### [facility] [address] [place] [address] Dr. Marvin Reis MUCOUS NONE SEEN Normal NONE SEEN [facility] Comment on above: Performed By: #### U RCX #### [facility] [address] [place] [address] Dr. Marvin Reis Nitrite Ql (U) Negative Normal NEGATIVE [facility] Comment on above: Performed By: #### U RCX #### [facility] [address] [place] [address] Dr. Marvin Reis pH (U) 5.5 [pH] Normal 5-9 [facility] Comment on above: Performed By: #### U RCX #### [facility] [address] [place] [address] Dr. Marvin Reis RBC NONE SEEN Abnormal 0-2 [facility] Comment on above: Performed By: #### U RCX #### [facility] [address] [place] [address] Dr. Marvin Reis SPEC GRAVITY 1.015 Normal 1.005-<=1.0 25 [facility] Comment on above: Performed By: #### U RCX #### [facility] [address] [place] [address] Dr. Marvin Reis UA PROTEIN Negative Normal NEGATIVE/ TRACE [facility] Comment on above: Performed By: #### U RCX #### [facility] [address] [place] [address] Dr. Marvin Reis Urobilinogen Qn (U) 0.2 {Robbie'U}/dL Normal 0.2 - 1. 0 [facility] Comment on above: Performed By: #### U RCX #### [facility] [address] [place] [address] Dr. Marvin Reis WBC 20-50 Abnormal NONE SEEN [facility] Comment on above: Performed By: #### U RCX #### [facility] [address] [place] [address] Dr. Marvin Reis YEAST PRESENT Abnormal NONE SEEN [facility] Comment on above: Performed By: #### U RCX #### [facility] [address] [place] [address] Dr. Marvin Reis CULTURE URINEon 03-18-2022 CULTURE URINE Culture Observations : No growth Normal [facility] Comment on above: Performed By: #### U RCX #### [facility] [address] [place] [address] Dr. Marvin Reis UA RANDOM W/MICROSCOPICon BACTERIA NONE SEEN Normal NONE SEEN [facility] Comment on above: Performed By: #### U AMIC #### [facility] [address] [place] [address] Dr. Marvin Reis Bilirubin Ql (U) Negative Normal NEGATIVE [facility] Comment on above: Performed By: #### U AMIC #### [facility] [address] [place] [address] Dr. Marvin Reis CAST NONE SEEN Normal NONE SEEN [facility] Comment on above: Performed By: #### U AMIC #### [facility] [address] [place] [address] Dr. Marvin Reis Clarity (U) CLOUDY Abnormal CLEAR [facility] Comment on above: Performed By: #### U AMIC #### [facility] [address] [place] [address] Dr. Marvin Reis Color (U) LT. YELLOW Normal YELLOW [facility] Comment on above: Performed By: #### U AMIC #### [facility] [address] [place] [address] Dr. Marvin Reis Crystals LM Nom (Urine sed) NONE SEEN Normal NONE SEEN [facility] Comment on above: Performed By: #### U AMIC #### [facility] [address] [place] [address] Dr. Marvin Reis Epithelial cells LM Ql (Urine sed) RARE Normal NONE SEEN /RARE [facility] Comment on above: Performed By: #### U AMIC #### [facility] [address] [address] [address] Marvin Reis Glucose Ql (U) Negative Normal NEGATIVE [facility] Comment on above: Performed By: #### U AMIC #### [facility] [address] [address] [address] Marvin Reis Hemoglobin Ql (U) TRACE-INTACT Abnormal NEGATIVE [facility] Comment on above: Performed By: #### U AMIC #### [facility] [address] [address] [address] Marvin Reis Ketones Ql (U) Negative Normal NEGATIVE [facility] Comment on above: Performed By: #### U AMIC #### [facility] [address] [place] [address] Dr. Marvin Reis LEUKOCYTES MODERATE Abnormal NEGATIVE [facility] Comment on above: Performed By: #### U AMIC #### [facility] [address] [address] [address] Marvin Reis MUCOUS NONE SEEN Normal NONE SEEN [facility] Comment on above: Performed By: #### U AMIC #### [facility] [address] [address] [address] Marvin Reis Nitrite Ql (U) Negative Normal NEGATIVE [facility] Comment on above: Performed By: #### U AMIC #### [facility] [address] [place] [address] Dr. Marvin Reis pH (U) 6.0 [pH] Normal 5-9 [facility] Comment on above: Performed By: #### U AMIC #### [facility] [address] [place] [address] Dr. Marvin Reis RBC NONE SEEN Abnormal 0-2 [facility] Comment on above: Performed By: #### U AMIC #### [facility] [address] [place] [address] Dr. Marvin Reis SPEC GRAVITY 1.015 Normal 1.005-<=1.0 25 [facility] Comment on above: Performed By: #### U AMIC #### [facility] [address] [address] [address] Marvin Reis UA PROTEIN Negative Normal NEGATIVE/ TRACE [facility] Comment on above: Performed By: #### U AMIC #### [facility] [address] [address] [address] Marvin Reis Urobilinogen Qn (U) 0.2 {Robbie'U}/dL Normal 0.2 - 1. 0 [facility] Comment on above: Performed By: #### U AMIC #### [facility] [address] [address] [address] Marvin Reis WBC 10-20 Abnormal NONE SEEN [facility] Comment on above: Performed By: #### U AMIC #### [facility] [address] [place] [address] Dr. Marvin Reis Coding Summary.on 06-21-2020 Coding Summary. CODING DATE: 020 FINAL [facility] STATUS: PAYOR: Worker's [...] Hopper CphT Date Saved: 06/21/2020 12:01 pm Normal [facility] PT - Assessmentson 0 PT - Assessments [id number]:127 Normal [facility] PT - Orderson 06-20-2020 PT - Orders [id number]:127 Normal [facility] PT - Workers Compon 06-20-20 20 PT - Workers Comp [id number]:127 [facility] Vital Signs Date Time Vital Sign Value Performing Clinician Milena lao 08-25-2024 15:00-0400 SaO2% (BldA) [Mass fraction] 89 % [facility] Comment on above: Performed By: #### A BG ####[facility] ([id number])[address] [place] [address] 08-23-2024 17:04-0400 SaO2% (BldA) [Mass fraction] 95 % [facility] Comment on above: Performed By: #### I CODE ####[facility] ([id number])[address] [place] [address] 08-22-2024 03:32-0400 SaO2% (BldA) [Mass fraction] 99 % [facility] Comment on above: Performed By: #### A BG ####[facility] ([id number])[address] [place] [address] 08-21-2024 20:59-0400 SaO2% (BldA) [Mass fraction] 97 % [facility] Comment on above: Performed By: #### I CODE ####[facility] ([id number])[address] [place] [address] 08-21-2024 15:42-0400 SaO2% (BldA) [Mass fraction] 100 % [facility] Comment on above: Performed By: #### A BG ####[facility] ([id number])[address] [place] [address] 08-21-2024 06:11-0400 SaO2% (BldA) [Mass fraction] 97 % [facility] Comment on above: Performed By: #### A BG ####[facility] ([id number])[address] [place] [address] 08-20-2024 20:04-0400 SaO2% (BldA) [Mass fraction] 97 % [facility] Comment on above: Performed By: #### A BG ####[facility] ([id number])[address] [place] [address] 08-20-2024 18:55-0400 SaO2% (BldA) [Mass fraction] 98 % [facility] Comment on above: Performed By: #### A BG ####[facility] ([id number])[address] [place] [address] 08-20-2024 17:14-0400 SaO2% (BldA) [Mass fraction] 92 % [facility] Comment on above: Performed By: #### A BG ####[facility] ([id number])[address] [place] [address] 08-20-2024 13:19-0400 SaO2% (BldA) [Mass fraction] 95 % [facility] Comment on above: Performed By: #### I CODE ####[facility] ([id number])[address] [place] [address] Encounters Encounter Date Encounter Type Care Provider Facility Start: 09-15-2024 End: 09-15-2024 Telephone encounter Airam Pettit PA-C [facility] Phone[facility] Start: 09-13-2024 End: 09-13-2024 Telephone encounter Airam Pettit PA-C Work Phone: [facility] Start: 08-21-2024 ambulatory [facility] Start: 08-20-2024 End: 09-08-2024 Evaluation and management of inpatient CAT [facility] Start: 03-10-2023 End: 03-11-2023 ambulatory [facility] Start: 03-03-2023 End: 03-03-[address] LAWANDA MCKEON . Facility:[facility] Start: 02-10-2023 End: 02-10-[address] LAWANDA MCKEON . Facility:[facility] Start: 01-21-2023 End: 01-21-[address] LAWANDA MCKEON . Facility:[facility] Start: 01-07-2023 End: 01-07-[address] LAWANDA MCKEON . Facility:[facility] Start: 12-23-2022 End: 12-23-[address] LAWANDA MCKEON . Facility:[facility] Start: 12-03-2022 End: 12-04-[address] LAWANDA MCKEON . Facility:[facility] Start: 11-20-2022 End: 11-21-[address] LAWANDA MCKEON . Facility:[facility] Start: 11-11-2022 End: 11-11-[address] LAWANDA MCKEON . Facility:[facility] Start: 10-21-2022 End: 10-21-[address] LAWANDA MCKEON . Facility:[facility] Start: 10-01-2022 End: 10-02-[address] LAWANDA MCKEON . Facility:[facility] Start: 09-24-2022 End: 09-25-[address] LAWANDA MCKEON . Facility:[facility] Start: 09-11-2022 End: 09-11-[address] LAWANDA MCKEON . Facility:[facility] Start: 08-15-2022 End: 08-16-[address] LAWANDA MCKEON . Facility:[facility] Start: 07-31-2022 End: 07-31-[address] LAWANDA MCKEON . Facility:[facility] Start: 06-25-2022 End: 06-26-[address] LAWANDA MCKEON . Facility:[facility] Start: 05-23-2022 End: 05-23-[address] LAWANDA MCKEON . Facility:[facility] Start: 04-16-2022 End: 04-16-[address] LAWANDA MCKEON . Facility:[facility] Start: 03-25-2022 End: 03-25-[address] LAWANDA MCKEON . Facility:[facility] Start: 03-18-2022 End: 03-18-[address] LAWANDA MCKEON . Facility:[facility] Plan of Treatment Date Care Activity Detail Author Start: 11-06-2025 Adult BMI Screening Adult BMI Screening [facility] Start: 09-07-2025 Tobacco Screening Tobacco Screening [facility] Start: 09-24-2024 End: 09-24-2024 Telemedicine consultation with patient 09/24/2024 10:30 AM EST Telemedicine [facility] [address] [place] [address] Airam Pettit PA-C [address] [place] [address] [facility] Start: 07-04-2024 Influenza vaccination Influenza Vaccine [facility] Start: 2023 Fall Risk Screening Fall Risk Screening [facility] Start: 2008 Administration of varicella zoster vaccine Zoster (Shingles) Vaccine (1 of 2) [facility] Start: 1977 DTaP,Tdap and Td Vaccines (1 - Tdap) DTaP,Tdap and Td Vaccines (1 - Tdap) [facility] Start: 1976 Adult BMI Follow Up Plan Adult BMI Follow Up Plan [facility] Start: 1970 Depression Screening Depression Screening [facility] Payers Date Payer Category Payer Medicare MEDICARE [id number] 1999 Medicare [id number] 1999 Unknown [id number] 1959 Medicare [id number] 1959 Unknown [id number] 1958 Unknown [id number] 2.16.840.1.148774.3.579.2.593 1958 Unknown [id number] 2.16.840.1.676796.3.579.2.593 1958 Unknown [id number] 2.16.840.1.650860.3.579.2.593 1958 Unknown [id number] 2.16.840.1.127950.3.579.2.593 1958 Unknown [id number] 2.16.840.1.967730.3.579.2.593 1958 Unknown [id number] 2.16.840.1.223360.3.579.2.593 1958 Unknown [id number] 2.16.840.1.954393.3.579.2.593 1958 Unknown [id number] 2.16.840.1.083320.3.579.2.593 1958 Unknown [id number] 2.16.840.1.583933.3.579.2.593 1958 Unknown [id number] 2.16.840.1.778196.3.579.2.593 1958 Unknown [id number] 2.16.840.1.690551.3.579.2.593 1958 Unknown [id number] 2.16.840.1.619971.3.579.2.593 1958 Unknown [id number] 2.16.840.1.843611.3.579.2.593 1958 Unknown [id number] 2.16.840.1.627849.3.579.2.593 1958 Unknown [id number] 2.16.840.1.230877.3.579.2.593 1958 Unknown [id number] 2.16.840.1.313023.3.579.2.593 1958 Unknown [id number] 2.16.840.1.784357.3.579.2.593 1958 Unknown [id number] 2.16.840.1.865360.3.579.2.593 1958 Unknown [id number] 2.16.840.1.085959.3.579.2.593 1958 Unknown [id number] 2.16.840.1.122543.3.579.2.128 6 1958 Unknown [id number] 2.16.840.1.190718.3.579.2.128 6 1958 Unknown [id number] 2.16.840.1.950775.3.579.2.128 6 1958 Unknown [id number] 2.16.840.1.131906.3.579.2.128 6 Social History Date Type Detail Facility Start: 08-23-2024 Tobacco smoking stat [facility] Never smoked tobacco [facility] Start: 08-23-2024 Tobacco use and exposure Smokeless tobacco non-user [facility] Start: 09-07-2024 Alcoholic beverage intake Ex-drinker (finding) [facility] Start: 04-14-2019 End: 09-07-2024 History of Social function [facility] Start: 04-14-2019 End: 09-07-2024 Tobacco use panel [facility] Unknown [facility] Start: 1960 Sex assigned at Not on file P [facility] Start: 06-08-2015 Sex Male (finding) [facility] Medical Equipment Procedure Code Equipment Code Equipment Origin al Text Equipment Identifier Dates Coil Embl 12cm . 02in 3mm Penumbra Coil [address] Ntnl - [id number] 1, [id number] FDA Start: 08-30-2024 Coil Embl 45cm P od J-Sft Pk Strl Lf - [id number], [id number] FDA Start: 08-30-2024 Coil Embl 30cm P od [address] - [id number] ([id number](1 [id number](10)[id number], [id number] FDA Start: 08-30-2024 Coil Embl 20cm . 02in 4mm Penumbra Coil [address] [place] - [id number](1 [id number](10)[id number] 7, [id number] FDA Start: 08-30-2024 Coil Embl 10cm . 02in 4mm Penumbra Coil [address] [place] - [id number](1 [id number](10)[id number] 9, [id number]_imp FDA Start: 08-30-2024 Goals Date Patient Goal Desired Activity /State Personal health goal Comment on above: Formatting of this n ote might be different from the original. Evaluation of progress towards goal: Progress to a safe discharge Note 09-15-2024 Telephone Encounter - Vianney Bashir - 09/15/2024 9:07 AM EST Note Date & Type Note Facility 09-15-2024 Miscellaneous Notes Formattin g of this note might be different from the original. Spoke with pt to schedule 1 month f/u post discharge with emch, also spoke with pt to update communcations and add the spouse's number for appt information documented in this encounter [facility] Telephone encounter Note 09-15-2024 Telephone Encounter - Vianney Bashir - 09/15/2024 9:07 AM EST Note Date & Type Note Facility 09-15-2024 Telephone encounter Note Spoke with pt to schedule 1 month f/u post discharge with emch, also spoke with pt to update communcations and add the spouse's number for appt information [email or web address] Note 09-13-2024 Telephone Encounter - Vianney Bashir - 09/13/2024 10:06 AM EST Note Date & Type Note Facility 09-13-2024 Miscellaneous Notes Formattin g of this note might be different from the original. LM for pt to schedule 1 month outpt f/u with emch documented in this encounter [facility] Telephone encounter Note 09-13-2024 Telephone Encounter - Vianney Mckay - 09/13/2024 10:06 AM EST Note Date & Type Note Facility 09-13-2024 Telephone encount er Note LM for pt to schedule 1 month outpt f/u with em[facility] Instructions Note Date & Type Note Facility Instructions Not on filedocumented in this en counter [facility] Summary Purpose Family History No Family History Records FoundNo Family History Records FoundNo Family History Records FoundNo Family History Records FoundNo Family History Records FoundNo Family History Records Found Advance Directives Date Activated Date Inactivated Comments 08/20/2024 3:15 PM 09/08/2024 7:36 PM Additional Source Comments (unrecognized sect ion and content) No Status Records FoundNo Status Records FoundNo Status Records FoundNo Status Records FoundNo Status Records FoundNo Status Records Found INFORMATION SOURCE (unrecogn ized section and content) DATE CREATED AUTHOR 09/19/2020 [facility] DATE CREATED AUTHOR AUTHOR'S ORGANIZ ATION 03/06/2023 [facility] DATE CREATED AUTHOR AUTHOR'S ORGANIZ ATION 03/11/2023 [facility] DATE CREATED AUTHOR AUTHOR'S ORGANIZ ATION 06/07/2023 [facility] DATE CREATED AUTHOR AUTHOR'S ORGANIZ ATION 08/27/2024 [facility] DATE CREATED AUTHOR AUTHOR'S ORGANIZ ATION 09/10/2024 [facility] Care Teams (unrecognized sec tion and content) [employer]ter Relationship Specialty Start Date End Date Lawanda Mckeon MD [address] [place] [address] PCP - General Family Medicine 08/21/24 [employer]ter Relationship Specialty Start Date End Date Lawanda Mckeon MD [address] [facility] [place] [address] PCP - General Family Medicine 08/21/24 FOR RECORDS PERTAINING TO PATIENTS WHO ARE [...] BE BASED ON THE PRIMARY CLINICAL RECORDS. [employer] [facility] provides no warranty or guarantee of the accuracy or completeness of information in this document.
[2024-09-16 12:05] LABS: Anion Gap 26.5; BUN Creatinine Ratio 24.8; Carbon Dioxide 11.8 mmol/L (21.0-32.0); Chloride 112 mmol/L (98-107); Estimated GFR (African America 15 (>=60 mL/min/1.73m^2); Estimated GFR (Non-African Ame 12 (>=60 mL/min/1.73m^2); Glucose 90 mg/dL (74-106); Potassium 5.3 mmol/L (3.5-5.1); Sodium 145 mmol/L (136-145)
== END 2024-09-16 11:12 | disposition home or self-care (01) ==
LOC: LAB 11:11
PROVIDERS: PCP Family Medicine; Visit Provider Family Medicine
DX: N18.4 Chronic kidney disease, stage 4 (severe) (principal)
CPT/HCPCS: 36415; 80048

== ENCOUNTER 2024-09-23 15:04 | Outpatient (REF) | payer SELFPAY ==
[2024-09-23 15:13] LABS: Basophils Percent Auto 0.2 % (0.2-2.0); Eosinophils Absolute Auto 0.3 10^3/uL (0.0-0.7); Eosinophils Percent Auto 3.4 % (0.9-7.0); Immature Granulocytes Abs Auto 0.04 10^3/uL (0.00-0.03); Immature Granulocytes Pct Auto 0.5 % (0.0-0.5); Lymphocytes Absolute Auto 0.5 10^3/uL (1.2-3.8); Lymphocytes Percent Auto 6.3 % (20.5-60.0); Mean Corpuscular HGB Conc 29.6 g/dL (29.9-35.2); Mean Corpuscular Hemoglobin 28.8 pg (25.9-34.0); Mean Corpuscular Volume 97.1 fL (80.0-94.0); Monocytes Absolute Auto 0.5 10^3/uL (0.3-0.8); Monocytes Percent Auto 6.5 % (1.7-12.0); Neutrophils Absolute Auto 6.9 10^3/uL (1.4-6.5); Neutrophils Percent Auto 83.1 % (43.0-75.0); Platelet Count 83 10^3/uL (150-450); Red Blood Count 2.78 10^6/uL (4.70-6.10); Red Cell Distribution Width 17.9 % (11.0-15.0); White Blood Count 8.3 10^3/uL (4.0-11.0)
[2024-09-23 15:18] LABS: Anion Gap 23.4; Carbon Dioxide 10.3 mmol/L (21.0-32.0); Chloride 113 mmol/L (98-107); Estimated GFR (African America 13 (>=60 mL/min/1.73m^2); Estimated GFR (Non-African Ame 11 (>=60 mL/min/1.73m^2); Glucose 123 mg/dL (74-106); Potassium 4.7 mmol/L (3.5-5.1); Sodium 142 mmol/L (136-145)
== END 2024-09-23 15:05 | disposition home or self-care (01) ==
LOC: LAB 15:04
PROVIDERS: PCP Family Medicine; Visit Provider Family Medicine
DX: N18.4 Chronic kidney disease, stage 4 (severe) (principal)
CPT/HCPCS: 36415; 80048; 85025

== ENCOUNTER 2024-09-28 13:22 | Emergency (ER) | payer OTHER, SELFPAY ==
[2024-09-28] VITALS (57 sets, daily range): BP systolic 80–146; BP diastolic 48–98; PULSE 76–129; TEMP 36.3; O2SAT 94–100
--- NOTE | 2024-09-28 14:00 | CT_ITS ---
The [address] [address] Patient Name: JESSICA PIZARRO MRN: [id number] date: 1960 Sex: M Assigned Patient Location: ER Current Patient Location: Accession/Order Number: [id number] Exam Date: 09/28/2024 15:55 Report Date: 09/28/2024 16:30 At the request of: RACHELE BALLARD Procedure: CT pelvis wo con EXAM: CT pelvis wo con, CT head/brain wo con HISTORY: confusion COMPARISON: CT dated 08/18/2024 TECHNIQUE: CT of the head and CT of the pelvis without intravenous contrast. Dose reduction techniques were achieved by using automated exposure control and/or adjustment of mA and/or kV according to patient size and/or use of iterative reconstruction technique. FINDINGS: Head Hollins-white matter differentiation is preserved. There are mild periventricular and subcortical white matter hypodensities likely representing chronic microvascular ischemic changes. There is no acute intracranial hemorrhage, extra axial fluid collection, midline shift, or mass effect. There is no evidence to suggest acute infarction. The ventricles, sulci, and cisterns are normal in size and configuration, without evidence of hydrocephalus or herniation. There are atherosclerotic calcifications within the carotid siphons. The partially visualized paranasal sinuses and mastoid air cells are well pneumatized and clear. There are no suspicious osseous lytic or sclerotic lesions. There are no acute fractures. The extracranial soft tissues are unremarkable. Pelvis TUBES AND IMPLANTS: Bond catheter ABDOMEN and PELVIS ABDOMINAL WALL AND SOFT TISSUES: Periumbilical hernia containing a knuckle of small bowel without associated obstruction BONES: Osteopenia. Multilevel degenerative changes of the spine. No suspicious lesions. Small bilateral hip joint effusions. There appear to be postsurgical changes of resection involving the distal sacrum and coccyx. ARTERIES: Incompletely evaluated VEINS: Incompletely evaluated LYMPH NODES: Unremarkable. PERITONEUM/ RETROPERITONEUM: Unremarkable. BOWEL: No dilated bowel loops within the [id number] APPENDIX: Not identified. REPRODUCTIVE ORGANS: Unremarkable URINARY BLADDER: Moderate diffuse wall thickening with mild surrounding inflammatory changes. CT/CT pelvis wo con IMPRESSION: No acute intracranial process. No acute osseous abnormality of the pelvis. Osteopenia. Moderate diffuse wall thickening of the bladder with mild stranding of matter changes concerning for cystitis. Bond catheter is in place. Small bilateral hip joint effusions. Electronically authenticated by: MELANIE GALEANO Date: 09/28/2024 16:30
--- NOTE | 2024-09-28 14:03 | ECG_ITS ---
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
--- NOTE | 2024-09-28 14:03 | XR_ITS ---
The [address] [address] Patient Name: JESSICA PIZARRO MRN: [id number] date: 1960 Sex: M Assigned Patient Location: ER Current Patient Location: ER Accession/Order Number: [id number] Exam Date: 09/28/2024 15:55 Report Date: 09/28/2024 16:32 At the request of: RACHELE BALLARD Procedure: XR chest 1V EXAM: XR chest 1V HISTORY: confusion COMPARISON: None. TECHNIQUE: Portable semiupright AP view of the chest. FINDINGS: Cervical spinal hardware is noted. Cardiac silhouette appears mildly enlarged. No evidence of florid pulmonary interstitial edema. No focal parenchymal opacities. No pneumothorax or pleural effusion. No displaced rib fractures. Osseous structures demonstrate degenerative changes. Soft tissues are grossly normal. XR/XR chest 1V IMPRESSION: No acute cardiopulmonary abnormality. Electronically authenticated by: MELANIE GALEANO Date: 09/28/2024 16:32
[2024-09-28 14:51] LABS: Hematocrit 28.3 % (42.0-54.0); Hemoglobin 8.4 g/dL (14.0-18.0); Mean Corpuscular HGB Conc 29.7 g/dL (29.9-35.2); Mean Corpuscular Hemoglobin 28.7 pg (25.9-34.0); Mean Corpuscular Volume 96.6 fL (80.0-94.0); Mean Platelet Volume 10.6 fL (9.5-13.5); Platelet Count 102 10^3/uL (150-450); Red Blood Count 2.93 10^6/uL (4.70-6.10); Red Cell Distribution Width 17.9 % (11.0-15.0); White Blood Count 6.9 10^3/uL (4.0-11.0)
[2024-09-28 14:54] LABS: Bilirubin Urine NEGATIVE (NEGATIVE); Blood Urine LARGE (NEGATIVE); Clarity Urine CLOUDY (CLEAR); Color Urine LT. YELLOW (YELLOW); Glucose Urine UA NEGATIVE (NEGATIVE); Ketones Urine NEGATIVE (NEGATIVE); Leukocyte Esterase Urine LARGE (NEGATIVE); Nitrite Urine NEGATIVE (NEGATIVE); Protein Urine 100 mg/dL (NEG/TRACE); Urobilinogen Urine 0.2 EU/dL (0.2-1.0); pH Urine 5.5 (5.0-9.0)
[2024-09-28 14:56] LABS: PCO2 VBG 29.1 mmHg (40.0-52.0); pH VBG 7.128 (7.330-7.430)
[2024-09-28 14:58] LABS: Urine Microscopic Indicated YES
[2024-09-28 15:07] LABS: Bacteria Urine SMALL #/HPF (NONE SEEN); Cast Seen? NONE SEEN #/LPF (NONE SEEN); Crystals Seen? None Seen #/HPF (None Seen); Mucus Urine NONE SEEN (NONE SEEN); RBC Urine 50-75 #/HPF (0-2); Squamous Epithelial Cell Urine FEW #/LPF (NONE/RARE); WBC Urine >100 #/HPF (NONE SEEN)
[2024-09-28 15:08] LABS: Urine Culture Indicated ALREADY ORDERED
[2024-09-28] MEDS: PIPERACILLIN SODIUM/TAZOBACTAM 4.5 GM in 0.9 % SODIUM CHLORIDE 50 ML IV (15:12)
[2024-09-28] MEDS: LACTATED RINGER'S SOLUTION 1,000 ML 2500 ML IV (15:13)
[2024-09-28] MEDS: MIDODRINE HCL 5 MG TABLET PO (15:14)
[2024-09-28 15:16] LABS: Band Neutrophils Absolute 0.1 10^3/uL (0.0-0.3); Lymphocytes Absolute Manual 0.89 10^3/uL (1.20-3.80); Monocytes Absolute Manual 0.34 10^3/uL (0.30-0.80); Ovalocytes 1+; Poikilocytosis 1+; Segmented Neut Absolute Manual 5.52 10^3/uL (1.4-6.5)
[2024-09-28 15:17] LABS: Burr Cells 1+
[2024-09-28 15:22] LABS: Lactate/Lactic Acid 0.5 mmol/L (0.4-2.0)
[2024-09-28 15:23] LABS: Alanine Aminotransferase 10 U/L (16-63); Albumin Globulin Ratio 0.6; Alkaline Phosphatase 87 U/L (46-116); Anion Gap 23.7; Aspartate Amino Transferase 9 U/L (15-37); BUN Creatinine Ratio 22.9; Bilirubin Total 0.3 mg/dL (0.2-1.0); Carbon Dioxide 10.8 mmol/L (21.0-32.0); Chloride 116 mmol/L (98-107); Estimated GFR (African America 11 (>=60 mL/min/1.73m^2); Estimated GFR (Non-African Ame 9 (>=60 mL/min/1.73m^2); Globulin 3.6 g/dL; Glucose 100 mg/dL (74-106); Magnesium 1.8 mg/dL (1.8-2.4); Potassium 4.5 mmol/L (3.5-5.1); Sodium 146 mmol/L (136-145); Total Protein 5.6 g/dL (6.4-8.2); Troponin I High Sensitivity 12.6 pg/mL (4.0-76.1)
[2024-09-28 15:28] LABS: INR 1.17; Partial Thromboplastin Time 25.7 sec (22.3-36.2); Prothrombin Time 12.2 sec (9.0-11.6)
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
[2024-09-28] MEDS: ERTAPENEM SODIUM 1 GM in 0.9 % SODIUM CHLORIDE 50 ML IV (15:34)
[2024-09-28] MEDS: VANCOMYCIN HCL 2,000 MG in 0.9 % SODIUM CHLORIDE 500 ML 250 MG IV (15:44)
--- NOTE | 2024-09-28 15:45 | CT_ITS ---
The [address] [address] Patient Name: JESSICA PIZARRO MRN: [id number] date: 1960 Sex: M Assigned Patient Location: ER Current Patient Location: Accession/Order Number: [id number] Exam Date: 09/28/2024 15:55 Report Date: 09/28/2024 16:30 At the request of: RACHELE BALLARD Procedure: CT head/brain wo con EXAM: CT pelvis wo con, CT head/brain wo con HISTORY: confusion COMPARISON: CT dated 08/18/2024 TECHNIQUE: CT of the head and CT of the pelvis without intravenous contrast. Dose reduction techniques were achieved by using automated exposure control and/or adjustment of mA and/or kV according to patient size and/or use of iterative reconstruction technique. FINDINGS: Head Hollins-white matter differentiation is preserved. There are mild periventricular and subcortical white matter hypodensities likely representing chronic microvascular ischemic changes. There is no acute intracranial hemorrhage, extra axial fluid collection, midline shift, or mass effect. There is no evidence to suggest acute infarction. The ventricles, sulci, and cisterns are normal in size and configuration, without evidence of hydrocephalus or herniation. There are atherosclerotic calcifications within the carotid siphons. The partially visualized paranasal sinuses and mastoid air cells are well pneumatized and clear. There are no suspicious osseous lytic or sclerotic lesions. There are no acute fractures. The extracranial soft tissues are unremarkable. Pelvis TUBES AND IMPLANTS: Bond catheter ABDOMEN and PELVIS ABDOMINAL WALL AND SOFT TISSUES: Periumbilical hernia containing a knuckle of small bowel without associated obstruction BONES: Osteopenia. Multilevel degenerative changes of the spine. No suspicious lesions. Small bilateral hip joint effusions. There appear to be postsurgical changes of resection involving the distal sacrum and coccyx. ARTERIES: Incompletely evaluated VEINS: Incompletely evaluated LYMPH NODES: Unremarkable. PERITONEUM/ RETROPERITONEUM: Unremarkable. BOWEL: No dilated bowel loops within the [id number] APPENDIX: Not identified. REPRODUCTIVE ORGANS: Unremarkable URINARY BLADDER: Moderate diffuse wall thickening with mild surrounding inflammatory changes. CT/CT head/brain wo con IMPRESSION: No acute intracranial process. No acute osseous abnormality of the pelvis. Osteopenia. Moderate diffuse wall thickening of the bladder with mild stranding of matter changes concerning for cystitis. Bond catheter is in place. Small bilateral hip joint effusions. Electronically authenticated by: MELANIE GALEANO Date: 09/28/2024 16:30
== END 2024-09-28 19:41 | disposition short-term general hospital (02) ==
PROVIDERS: Emergency Provider Emergency Medicine; PCP Family Medicine
DX: A41.9 Sepsis, unspecified organism (principal); G82.50 Quadriplegia, unspecified; Z87.440 Personal history of urinary (tract) infections; N18.4 Chronic kidney disease, stage 4 (severe); E66.01 Morbid (severe) obesity due to excess calories; L89.113 Pressure ulcer of right upper back, stage 3; L89.154 Pressure ulcer of sacral region, stage 4; L89.624 Pressure ulcer of left heel, stage 4; N17.9 Acute kidney failure, unspecified; D64.9 Anemia, unspecified; R60.1 Generalized edema; N30.91 Cystitis, unspecified with hematuria; D69.6 Thrombocytopenia, unspecified; E87.20 Acidosis, unspecified
CPT/HCPCS: 36415; 51702; 70450; 71045; 72192; 80053; 81001; 82800; 83605; 83735; 83880; 84484; 85007; 85027; 85610; 85730; 87040; 87086; 93005; 96365; 96366; 96368; 99285; J1335; J2543; J3370

== ENCOUNTER 2024-10-21 13:43 | Outpatient (REF) | payer MEDICARE, SELFPAY ==
[2024-10-21 13:59] LABS: Mean Corpuscular HGB Conc 30.2 g/dL (29.9-35.2); Mean Corpuscular Hemoglobin 28.8 pg (25.9-34.0); Mean Corpuscular Volume 95.3 fL (80.0-94.0); Mean Platelet Volume 10.3 fL (9.5-13.5); Platelet Count 125 10^3/uL (150-450); Red Blood Count 2.15 10^6/uL (4.70-6.10); Red Cell Distribution Width 17.2 % (11.0-15.0); White Blood Count 4.2 10^3/uL (4.0-11.0)
[2024-10-21 14:14] LABS: Anion Gap 18.5; BUN Creatinine Ratio 20.6; Calcium 8.6 mg/dL (8.5-10.1); Carbon Dioxide 22.4 mmol/L (21.0-32.0); Chloride 105 mmol/L (98-107); Creatine Kinase 68 U/L (39-308); Estimated GFR (African America 16 (>=60 mL/min/1.73m^2); Estimated GFR (Non-African Ame 13 (>=60 mL/min/1.73m^2); Glucose 101 mg/dL (74-106); Potassium 4.9 mmol/L (3.5-5.1); Sodium 141 mmol/L (136-145)
[2024-10-21 14:39] LABS: Lymphocytes Absolute Manual 0.21 10^3/uL (1.20-3.80); Segmented Neut Absolute Manual 3.65 10^3/uL (1.4-6.5)
[2024-10-21 14:40] LABS: Anisocytosis 1+; Basophils Abs Manual 0.04 10^3/uL (0.00-0.10); Eosinophils Absolute Manual 0.16 10^3/uL (0.00-0.70); Monocytes Absolute Manual 0.12 10^3/uL (0.30-0.80); Poikilocytosis 1+
[2024-10-21 14:41] LABS: Acanthocytes 1+; Ovalocytes 1+
[2024-10-21 14:56] LABS: Hematocrit 20.5 % (42.0-54.0); Hemoglobin 6.2 g/dL (14.0-18.0)
== END 2024-10-21 13:44 | disposition home or self-care (01) ==
LOC: LAB 13:43
PROVIDERS: PCP Family Medicine
DX: M86.172 Other acute osteomyelitis, left ankle and foot (principal)
CPT/HCPCS: 36415; 80048; 82550; 85007; 85027

== ENCOUNTER 2024-11-20 13:44 | Outpatient (REF) | payer MEDICARE, SELFPAY ==
--- OUTSIDE RECORDS SUMMARY | 2024-11-20 13:51 | XMS_ITS | CCD ---
Author Organization [facility] Care Team Providers Care Art Historian Name Role Phone HOY ., DR WEBBER [...] Unavailable HOY ., DR WEBBER Admherman Unavailable AUSTIN, DR MAGY [place] Consulting Unavailable HOY ., [...] HOY ., DR WEBBER Primary Care Unavailable Miguely Lawanda MACDONALD Primary Care Provider [phone] LAWANDA GROVE Primary Care Unavailable LAMONT DELCID Attending Unavailable CHACORTA SMITH Consulting Unavailable HOMER DUBOSE Admitting Unavailable ISAIAS NGO Consulting Unavailable ONLY), [facility] (INPATIENT Consult ing Unavailable CAT BETH Admitting Unavailable CAT BETH Attending Unavailable LAWANDA GROVE Referring Unavailable HERBERT MARIE Consulting Unavailable YAKELINANU BARGER U Consulting Unavailable ONLY), IP WOUND CARE SERVICES (INPATIENT Consult ing Unavailable LORNA DUKE Consulting Unavailable DOMENICO CROCKETT Consulting Unavailable TTH ONLY, [facility] CONSULT [facility] Consulting Unavailable TTH ONLY, [facility] Consulting Unavailable DIVISION OF INFECTIOUS DISEASE, [facility] Consulting Unavailable GENEVIEVE TAYLOR Consulting Unavailable MONTY PEARSON Consulting Unavailable BECK SANDERS Referring Unavailable HOY, LAWANDA M Primary Care Unavailable AIRAM PETTIT Attending Unavailabl e HOShashank, LAWANDA M Referring Unavailable HOY, LAWANDA M Primary Care Unavailable LUCAS MARIE Admitting Unavailable LUCAS MARIE Attending Unavailable RACHELE BALLARD Referring Unavailable HOY, LAWANDA M Primary Care Unavailable ELENA SOLIS Consulting Unavailable GENEVIEVE TAYLOR Consulting Unavailable ONLY), IP WOUND CARE SERVICES (INPATIENT Consult ing Unavailable DIVISION OF INFECTIOUS DISEASE, [facility] Consulting Unavailable ELICIA OTTO Consulting Unavailable DAVID DUMONT Consulting Unavailable CACHORRO VELIZ Consulting Unavailable RELIEF, [facility] ulting Unavailable BRYAN ANTHONY Consulting Unavailable DOMENICO CROCKETT Consulting Unavailable COLIN TREVINO Attending Unavailable HOY, LAWANDA M Referring Unavailable HOY, LAWANDA M Primary Care Unavailable HOY, LAWANDA M Referring Unavailable HOY, LAWANDA M Primary Care Unavailable Unavailable Primary Care Provider Unavailabl e Allergies Allergy Classification Reported Allergen(s) Allergy Type Date of Onset Reaction(s) Facility (1 source) ceFAZolin Drug Allergy 04-21-20 13 [facility] Repository (1 source) Cilastatin / Imipenem Drug Allergy 04-21-20 13 [facility] Repository (1 source) Readi-Cat Drug allergy (disorder) 04-21-20 13 [facility] Repository (16 sources) ceFAZolin; Translations: [CEFAZOLIN] Drug Allergy 12-01-19 13 Anaphylaxis [facility] (15 sources) Promethazine; Translations: [PROMETHAZINE] Drug Allergy 08-23-20 24 Anaphylaxis [facility] (16 sources) Sulfamethoxazole / Trimethoprim; Translations: [SULFAMETHOXAZOLE-TR IMETHOPRIM] Drug Allergy 03-10-20 23 Rash [facility] (16 sources) Iodinated Contrast Media; Translations: [IODINATED CONTRAST MEDIA] Propensity to adverse reactions to drug 12-01-19 13 Anaphylaxis [facility] (1 source) Cephalexin; Translations: [CEPHALEXIN MONOHYDRATE] Drug Allergy 08-03-[address] [facility] Repository (1 source) Promazine; Translations: [PROMAZINE] Drug Allergy 12-01-[address] [facility] Repository Medications Current Medications Medication Drug Class(es) Dates Sig (Normalized) Sig (Original) DAPTOmycin (CUBICIN) 625 mg in sodium chloride 0.9 % 50 mL IVPB (1 source) Start: 10-24-2024 625 mg, intravenous, at 125 mL/hr, Administer over 30 Minutes, Every 48 hours, First dose on Fri10/24/24 at 0900, Approved Indications: Osteoarticular, Authorizing Service: No ID specialist at hospital, I acknowledge that an appropriate consult is REQUIRED to use this drug at [facility], [facility] and per [facility]-approved policy # MM 1.15: Yes 72 hr fentaNYL 0.1 mg/hr transdermal system (20 sources) Opioid Agonist Start: 11-20-2024 End: 12-20-2024 fentaNYL (DURAGESIC) 100 MCG/HR Indications: Chronic pain due to trauma Place 1 patch over 72 hours on the skin every 3rd (third) day Alternating every other placement with the 50 mcg patch 10 patch 11/20/2024 12/20/2024 Active Start: 10-29-2024 1 patch, trans dermal, Administer over 72 Hours, User Specified (Once every 6 days), First dose on Fri10/29/24 at 0900, Alternate with fentanyl patch 50 mcg every 72 hour. DO NOT GIVE BOTH PATCHES. Look-alike/sound-alike medication - verify indication for use. Remove patch prior to MRI procedure as serious gregg may occur. Remove previous patch, if present, before applying new. Start: 10-26-2024 1 patch, trans dermal, Administer over 72 Hours, User Specified (Once every 6 days), First dose (after last modification) on Fri10/26/24 at 0900, Alternate with fentanyl 100mcg patch. DO NOT GIVE BOTH PATCHES. Look-alike/sound-alike medication - verify indication for use. Remove patch prior to MRI procedure as serious gregg may occur. Remove previous patch, if present, before applying new. Start: 10-23-2024 End: 10-25-2024 1 patch, transdermal, Admini ster over 72 Hours, Every 72 hours, First dose on 10/25/24 at 1630, Look-alike/sound-alike medication - verify indication for use. Remove patch prior to MRI procedure as serious gregg may occur. Remove previous patch, if present, before applying new. apply 1 dose transde rmal route every hour fentaNYL (DURAGESIC) 50 mcg/hr Place 1 patch on the skin every third day. Alternating every other placement with 100 mcg patch NOT 150 mcg total Suspended apply 1 dose transde rmal route every hour fentaNYL (DURAGESIC) 100 mcg/hr Place 1 patch on the skin every third day. Alternating every other placement with 50 mcg patch NOT 150 mcg total Suspended ferrous sulfate 325 mg oral tablet (5 sources) Start: 10-15-2024 take 325 mg by mouth once daily at breakfast 325 mg, oral, Daily with breakfast, First dose on 10/23/24 at 0800, Give ferrous sulfate 2 hours before or 4 hours after antacids. fluconazole 150 mg oral tablet (5 sources) Azole Antifungal Start: 10-22-2024 take 300 mg by mouth once daily 300 mg, oral, Daily, First dose on Fri10/22/24 at 2015, HAZARDOUS - Handle with care. Look-alike/sound-al john medication - verify indication for use., Indication: Other, Specify: Osteomyelitis Start: 10-14-2024 End: 11-17-2024 take 2 tablets by mouth in the morning fluconazole (DIFLUCAN) 150 mg tablet Take 2 tablets (300 mg total) by mouth in the morning for 34 days. 68 tablet 10/14/2024 11/17/2024 Suspended gabapentin 300 mg oral capsule (14 sources) Anti-epileptic Agent Start: 10-22-2024 take 300 mg by mouth at bedtime 300 mg, oral, Bedtime, First dose on Fri10/22/24 at 2200, Look-alike/sound-alike medication - verify indication for use. glucagon (rdna) 1 mg injection (1 source) Antihypoglycemic Agent Start: 10-22-2024 50 ml glucose 500 mg/ml prefilled syringe (4 sources) Start: 10-23-2024 25 g, intravenous, Once as needed, low blood sugar, as needed for Pre-insulin glucose level 150-250 mg/dL, Starting on 10/23/24 at 1122, For 1 dose, VESICANT (RED) Warning: HYPERTONIC solution. Start: 10-22-2024 Start: 10-22-2024 Start: 10-22-2024 sodium hypochlorite 1.25 mg/ml topical solution (1 source) Start: 10-25-2024 1 Application, topical, 2 times daily, First dose on 10/25/24 at 2100, Moistened gauze directly to LEFT HEEL wound bed, do not apply over periwound iron sucrose (VENOFER) 200 mg in sodium chloride 0.9 % 100 mL IVPB (1 source) Start: 10-23-2024 End: 10-29-2024 200 mg, intravenous, at 440 mL/hr, Administer over 15 Minutes, Daily, First dose on 10/23/24 at 2030, For 6 doses, Monitor patient for hypersensitivity reactions for at least 30 minutes after the infusion. AVOID the use of H1 antihistamines, such as diphenhydramine, as this may worsen hypersensitivity reactions. Have resuscitation equipment and medications available. meropenem (MERREM) 500 mg in sodium chloride 0.9 % 50 mL IVPB (1 source) Start: 10-23-2024 take 500 mg intravenously every twelve hours 500 mg, intravenous, at 20 mL/hr, Administer over 3 Hours, Every 12 hours, First dose on 10/23/24 at 1400, Indication: Bacteremia, Authorizing Service: No ID, Pulmonary, or budget specialist at hospital 2 ml ondansetron 2 mg/ml injection (1 source) Serotonin-3 Receptor Antagonist Start: 10-22-2024 take 4 mg intravenously every six hours as needed for nausea and vomiting sevelamer carbonate 800 mg oral tablet (14 sources) Phosphate Binder Start: 10-23-2024 take 1 tablet by mouth three times daily at mealtime 1,600 mg, oral, 3 times daily with meals, First dose on 10/23/24 at 0800, Look-alike/sound-ali ke medication - verify indication for use Give with meals Administer other medications 1 hour before or 3 hours after Enteral Feeding: Lanthanum and sevelamer TABLETS are not recommended to be crushed and administered in feeding tube due to risk of clogging tube Alternative: sevelamer carbonate suspension/packets or calcium carbonate per tube Start: 10-13-2024 sevelamer (DERICK URRUTIA) 800 mg tablet Take 2 tablets (1,600 mg total) by mouth in the morning and 2 tablets (1,600 mg total) at noon and 2 tablets (1,600 mg total) in the evening. Take with meals. 180 tablet 6 10/13/2024 Suspended Start: 09-08-2024 sevelamer (DERICK URRUTIA) 800 mg tablet Take 1 tablet (800 mg total) by mouth in the morning and 1 tablet (800 mg total) at noon and 1 tablet (800 mg total) in the evening. Take with meals. 90 tablet 2 09/08/2024 Active 1000 ml sodium chloride 9 mg /ml injection (8 sources) Start: 10-22-2024 Start: 10-22-2024 3 mL, intraven ous, As needed, line care, before and after each intermittent use, Starting on Fri10/22/24 at 1424 Start: 10-22-2024 End: 10-22-2024 500 mL, intravenous, at 968 mL/hr, Administer over 31 Minutes, Once, On Fri10/22/24 at 1500, For 1 dose Start: 10-12-2024 sodium chlorid e injection Infuse 10-20 mL into a venous catheter as needed for line care (line care per nursing agency protocol.). 1 mL 10/12/2024 Suspended sodium polystyrene sulfonate 38846 mg powder for oral suspension (3 sources) Start: 10-26-2024 End: 11-05-2024 take 15 g by mouth in the morning sodium polystyrene (KAYEXALATE) powder for suspension Take 15 g by mouth in the morning for 10 doses. 150 g 10/26/2024 11/05/2024 Active Start: 10-24-2024 End: 10-24-2024 15 g, oral, Once, On Sun at 0745, For 1 dose [place] [address] mg powder for oral suspension (2 sources) Start: 10-26-2024 10 g, oral, Da breezy with lunch, First dose on Fri10/26/24 at 1630, Empty entire contents of the packet(s) into a glass with 3 tablespoons (45 mL) or more water. Stir well and drink immediately; if powder remains in the glass, add water, stir and drink immediately; repeat until no powder remains. Administer other oral medications 2 or more hours before or 2 hours after dose. Start: 10-25-2024 End: 10-25-2024 10 g, oral, Once, On Mon at 1000, For 1 dose, Empty entire contents of the packet(s) into a glass with 3 tablespoons (45 mL) or more water. Stir well and drink immediately; if powder remains in the glass, add water, stir and drink immediately; repeat until no powder remains. Administer other oral medications 2 or more hours before or 2 hours after dose. trospium chloride 20 mg oral tablet (1 source) Cholinergic Muscarinic Antagonist Start: 10-22-2024 take 20 mg by mouth once daily 20 mg, oral, Nightly, First dose on Fri10/22/24 at 2200 vitamin b12 0.5 mg oral tablet (14 sources) Vitamin B12 Start: 10-22-2024 take 1000 ug by mouth once daily 1,000 mcg, oral, Daily, First dose on Fri10/22/24 at 2015 Start: 09-09-2024 take 1 tablet by alfonso th in the morning cyanocobalamin 1000 MCG tablet Take 1 tablet (1,000 mcg total) by mouth in the morning. 30 tablet 2 09/09/2024 Suspended Completed/Discontinued Medications Medication Drug Class(es) Dates Sig (Normalized) Sig (Original) 100 ml acetaminophen 10 mg/ml injection (2 sources) Start: 10-24-2024 End: 10-24-2024 1,000 mg, intravenous, at 400 mL/hr, Administer over 15 Minutes, Once, On Fri10/24/24 at 0415, For 1 dose Start: 10-22-2024 take 1 tablet by alfonso th every six hours as needed for pain and headache and fever 650 mg, oral, Every 6 hours PRN, mild pain - pain scale 1-3, headaches, temperature greater than 38 C, Temperature greater than 38.3 C, Starting on Fri10/22/24 at 2006, [Warning: Total Acetaminophen not to exceed more than 4 grams (4000 mg) in 24 hours] B complex-vitamin C-folic acid (DIALYVITE) 100-1 mg tablet (13 sources) Start: 09-08-2024 take 1 tablet by mouth in the morning B complex-vitamin C-folic acid (DIALYVITE) 100-1 mg tablet Take 1 tablet by mouth in the morning. 30 tablet 2 09/08/2024 Suspended Start: 09-08-2024 take 1 tablet by alfonso th in the morning B complex-vitamin C-folic acid (DIALYVITE) 100-1 mg tablet Take 1 tablet by mouth in the morning. 30 tablet 2 09/08/2024 Start: 09-08-2024 take 1 tablet by alfonso th in the morning B complex-vitamin C-folic acid (DIALYVITE) 100-1 mg tablet Take 1 tablet by mouth in the morning. 30 tablet 2 09/08/2024 Active bumetanide 2 mg oral tablet (13 sources) Loop Diuretic Start: 10-14-2024 take 1 tablet by mouth once daily as needed bumetanide (BUMEX) 2 mg tablet Take 1 tablet (2 mg total) by mouth daily as needed (For increasing leg swelling). 30 tablet 6 10/14/2024 Suspended Start: 09-10-2024 End: 12-09-2024 take 3 tablets by mouth every other day bumetanide (BUMEX) 1 mg tablet Take 3 tablets (3 mg total) by mouth every other day for 90 days. 45 tablet 2 09/10/2024 12/09/2024 Active DAPTOmycin 625 mg in sodium chloride 0.9 % 50 mL IVPB (4 sources) Start: 10-14-2024 End: 11-17-2024 DAPTOmycin 625 mg in sodium chloride 0.9 % 50 mL IVPB Infuse 625 mg into a venous catheter every other day for 34 days. 1850 mL 10/14/2024 11/17/2024 Suspended Start: 10-14-2024 End: 11-17-2024 DAPTOmycin 625 mg in sodium chloride 0.9 % 50 mL IVPB Infuse 625 mg into a venous catheter every other day for 34 days. 1850 mL 10/14/2024 11/17/2024 Start: 10-14-2024 End: 11-17-2024 DAPTOmycin 625 mg in sodium chloride 0.9 % 50 mL IVPB Infuse 625 mg into a venous catheter every other day for 34 days. 1850 mL 10/14/2024 11/17/2024 Active 1 ml heparin sodium, porcine 5000 unt/ml injection (9 sources) Unfractionated Heparin, Anti-coagulant Start: 10-22-2024 End: 10-23-2024 5,000 Units, subcutaneous, Every 12 hours scheduled, First dose on Fri10/22/24 at 2100, Notify prescriber if INR greater than 1.9, hemoglobin less than 10 mg/dL, aPTT greater than 40 seconds, and/or platelet count less than 100,000/mm Look-alike/sound-alike medication - verify indication for use. Observe for bleeding. Start: 10-12-2024 heparin lock f lush, porcine, 10 unit/mL injection Infuse 1-5 mL (10-50 Units total) into a venous catheter as needed (line care per nursing agency protocol.). 1 mL 10/12/2024 Suspended Start: 10-12-2024 heparin lock f lush, porcine, injection 100 unit/mL solution Infuse 1-5 mL (100-500 Units total) into a venous catheter as needed (line care per nursing agency protocol.). 1 mL 10/12/2024 Suspended magnesium oxide 400 mg oral tablet (2 sources) Start: 10-24-2024 End: 10-25-2024 take 400 mg by mouth once 400 mg, oral, Once, On Fri10/25/24 at 0930, For 1 dose meropenem (MERREM) 500 mg in sodium chloride 0.9 % 50 mL IVPB-MBP (1 source) Start: 10-22-2024 End: 10-23-2024 take 500 mg intravenously every twenty-four hours 500 mg, intravenous, at 100 mL/hr, Administer over 0.5 Hours, Every 24 hours, First dose on Fri10/22/24 at 2200, ADD-VANTAGE/MBP- Dissolve drug immediately prior to administration; Discard 3 hours after activating., Indication: Other, Specify: Osteomyelitis, Authorizing Service: No ID, Pulmonary, or budget specialist at hospital, I acknowledge that an appropriate consult is REQUIRED to use this drug at [facility], [facility] and per [facility]-approved policy # MM 1.15: Yes meropenem 500 mg in sodium chloride 0.9 % 50 mL IVPB MINI-BAG Plus (4 sources) Start: 10-14-2024 End: 11-17-2024 take 500 mg intravenously every twenty-four hours meropenem 500 mg in sodium chloride 0.9 % 50 mL IVPB MINI-BAG Plus Infuse 500 mg into a venous catheter daily for 34 days. 1 each 10/14/2024 11/17/2024 Suspended Start: 10-14-2024 End: 11-17-2024 take 500 mg intravenously every twenty-four hours meropenem 500 mg in sodium chloride 0.9 % 50 mL IVPB MINI-BAG Plus Infuse 500 mg into a venous catheter daily for 34 days. 1 each 10/14/2024 11/17/2024 Start: 10-14-2024 End: 11-17-2024 take 500 mg intravenously every twenty-four hours meropenem 500 mg in sodium chloride 0.9 % 50 mL IVPB MINI-BAG Plus Infuse 500 mg into a venous catheter daily for 34 days. 1 each 10/14/2024 11/17/2024 Active midodrine hydrochloride 5 mg oral tablet (16 sources) alpha-Adrenergic Agonist Start: 10-23-2024 End: 10-24-2024 take 10 mg by mouth once 10 mg, oral, Once, On Fri10/23/24 at 2345, For 1 dose, Look-alike/sound-alike medication - verify indication for use. Start: 10-22-2024 End: 10-22-2024 take 10 mg by mouth once 10 mg, oral, Once, On Fri at 1725, For 1 dose, Look-alike/sound-alike medication - verify indication for use. Start: 09-08-2024 End: 12-07-2024 tolterodine tartrate 1 mg oral tablet (13 sources) Cholinergic Muscarinic Antagonist Start: 06-08-2024 take 2 tablets by mouth in the morning, then take 2 tablets by mouth at bedtime tolterodine (DETROL) 1 mg tablet Take 2 tablets (2 mg total) by mouth in the morning and 2 tablets (2 mg total) before bedtime. 06/08/2024 Suspended Problems Active Problems Problem Classification Problem Date Documented Da te Episodic/Chronic Bacterial infection; unspecified site (4 sources) Methicillin resistant Staphylococcus aureus infection, unspecified site; Translations: [Other bacterial infections of unspecified site] Onset: Episodic Cardiac dysrhythmias (1 source) Cardiac arrhythmia, unspecified; Translations: [Cardiac arrhythmia, unspecified] Onset: 4 Chronic Cardiac dysrhythmias (1 source) Tachycardia, unspecified; Translations: [Tachycardia, unspecified] Onset: 4 Episodic Chronic kidney disease (20 sources) Chronic kidney disease stage 4; Translations: [Chronic kidney disease, stage 4 (severe)] Onset: 4 09-07-2024 Chronic Chronic ulcer of skin (20 sources) Pressure-induced deep tissue damage of right heel; Translations: [Pressure ulcer, heel] Onset: 4 08-23-2024 Chronic Coagulation and hemorrhagic disorders (14 sources) Thrombocytopenic disorder; Translations: [Thrombocytopenia, unspecified] Onset: 4 09-07-2024 Chronic Deficiency and other anemia (2 sources) Iron deficiency anemia secondary to inadequate dietary iron intake; Translations: [Other iron deficiency anemias] Onset: 4 10-23-2024 Episodic Epilepsy; convulsions (4 sources) Seizure; Translations: [Unspecified convulsions] Onset: 4 10-04-2024 Episodic Fluid and electrolyte disorders (7 sources) Hypervolemia; Translations: [Fluid overload, unspecified] Onset: 4 09-29-2024 Episodic Fracture of lower limb (9 sources) Closed fracture of shaft of femur; Translations: [Displaced comminuted fracture of shaft of left femur, initial encounter for closed fracture] Onset: 4 10-26-2024 Episodic Gastrointestinal hemorrhage (13 sources) Melena; Translations: [Melena] Onset: 4 09-07-2024 Episodic Infective arthritis and osteomyelitis (except that caused by tuberculosis or sexually transmitted disease) (12 sources) Subacute osteomyelitis of left foot; Translations: [Subacute osteomyelitis, left ankle and foot] Onset: 4 Resolved: 4 10-12-2024 Chronic Mycoses (2 sources) Candidiasis, unspecified; Translations: [Candidiasis, unspecified] Onset: 5 Episodic Neoplasms of unspecified nature or uncertain behavior (1 source) Refractory anemia, unspecified; Translations: [Refractory anemia, unspecified] Onset: 4 Episodic Nonspecific chest pain (1 source) Chest pain, unspecified; Translations: [Chest pain, unspecified] Onset: 4 Episodic Open wounds of extremities (3 sources) Open wound, heel; Translations: [Unspecified open wound, left foot, initial encounter] Onset: 4 10-21-2024 Episodic Open wounds of head; neck; and trunk (13 sources) Open wound of scrotum; Translations: [Unspecified open wound of scrotum and testes, initial encounter] Onset: 4 08-23-2024 Episodic Other diseases of bladder and urethra (6 sources) Neuromuscular dysfunction of bladder, unspecified; Translations: [NEUROMUSCULR DYSFNCTION BLADDER UNS] Onset: 2 Chronic Other diseases of bladder and urethra (12 sources) Neurogenic bladder; Translations: [Neuromuscular dysfunction of bladder, unspecified] Onset: 9 08-30-2024 Chronic Other diseases of kidney and ureters (1 source) Disorder of kidney and ureter, unspecified; Translations: [DISORDER KIDNEY AND URETER UNS] Onset: 3 Episodic Other gastrointestinal disorders (12 sources) Neurogenic bowel; Translations: [Neurogenic bowel, not elsewhere classified] Onset: 9 08-30-2024 Chronic Other gastrointestinal disorders (1 source) Neurogenic bowel, not elsewhere classified; Translations: [Neurogenic bowel, not elsewhere classified] Onset: 4 Chronic Other injuries and conditions due to external causes (3 sources) Hypothermia; Translations: [Hypothermia, initial encounter] Onset: 4 09-29-2024 Episodic Other liver diseases (1 source) Hepatomegaly, not elsewhere classified; Translations: [HEPATOMEGALY NEC] Onset: 3 Episodic Other nervous system disorders (1 source) Chronic pain due to injury; Translations: [Chronic pain due to trauma] 11-20-2024 Chronic Other nutritional; endocrine; and metabolic disorders (12 sources) Hyperphosphatemia; Translations: [Other disorders of phosphorus metabolism] Onset: 4 09-07-2024 Chronic Other nutritional; endocrine; and metabolic disorders (1 source) Other disorders of phosphorus metabolism; Translations: [Other disorders of phosphorus metabolism] Onset: 4 Chronic Other screening for suspected conditions (not mental disorders or infectious disease) (4 sources) Abnormal findings on diagnostic imaging of other abdominal regions, including retroperitoneum; Translations: [INR raised] Onset: 3 09-24-2024 Episodic Paralysis (13 sources) Complete tetraplegia due to lesion at C1-C4 level; Translations: [Quadriplegia, C1-C4 complete] Onset: 9 09-07-2024 Chronic Respiratory failure; insufficiency; arrest (adult) (12 sources) Acute hypoxemic respiratory failure; Translations: [Acute respiratory failure with hypoxia] Onset: 4 09-07-2024 Episodic Septicemia (except in labor) (17 sources) Sepsis due to Escherichia coli; Translations: [Sepsis due to Escherichia coli [E. coli]] Onset: 4 09-07-2024 Episodic Unclassified (1 source) Abnormal Lab Onset: 4 Unclassified (1 source) abnormal labs, knee pain Onset: 4 Unclassified (1 source) Pressure-induced deep tissue damage of right heel; Translations: [Pressure-induced deep tissue damage of right heel] Onset: 4 Unclassified (1 source) Ventricular tachycardia, unspecified; Translations: [Ventricular tachycardia, unspecified] Onset: 4 Urinary tract infections (19 sources) Urinary tract infection, site not specified; Translations: [Urinary tract infectious disease] Onset: 2 Episodic Past or Other Problems Problem Classification Problem Date Documented Da te Episodic/Chronic Mood disorders (3 sources) Mood disorders Onset: 09-29-2024 09-29-2024 Residual codes; unclassified (1 source) Pain, unspecified; Translations: [Pain, unspecified] Onset: 08-21-2024 Episodic Results Test Name Value Interpretation Reference Range Facility 11-17-2024 36 Labs are in media Normal [facility] 11-16-2024 36 The nurse is going t o fax labs and give me a call back concerning the dressing change being done during visit or if he can send pictures. Normal [facility] 36 Pt has been schedule d and they are still unsure about sending pictures of the wound. Normal [facility] 11-15-2024 36 Labs are in media from 11/09 [facility] 36on 11-09-2024 36 Nurse has to consult DON on getting picture. She was informed pt will continue Fluconazole indefinitely. And Ryan in transportation was not in to schedule pt. I will follow up. [facility] 36 The patient reports he had his labs drawn earlier today, so we should be receiving these results soon. Can you schedule him a 2-week follow-up? He will need to continue on fluconazole indefinitely, so can you let the facility know? This is a very difficult case, as neither the patient or his has been able to visualize the wound on the left calcaneus. Is there someone from the facility that can provide us further input on the calcaneal wound or pictures of the site? [facility] 36 After two calls, Malick garcia was able to find the nurse. The med list and vitals should be faxed over shortly. [facility] Telemedicineon 11-09-2024 Telemedicine [id number] PriceDino F 1960 M Date Provider Department Center 11/09/[address] [facility] INFEC [facility] No family history on file Level of Service:50615 [place] OFFICE/OUTPATIENT ESTABLISHED MOD MDM 30 MIN [facility] Telephoneon 11-09-2024 Telephone [id number] Dino Price F 1960 M Date Provider Department Center 11/09/[address] [facility] INFEC [facility] No family history on file [facility] 36on 11-04-2024 36 Pt is not showing si gns of infections or has reported any to the nurses. I did inform them of pt Hyperkalemia. Nurse stated she will make note and inform house doctor. [facility] 36 Labs are in media Normal [facility] 36on 11-02-2024 36 Labs will be sent pe r nurse today. [facility] CBC AND AUTO DIFFon 10-26-20 24 ABSOLUTE BASOPHIL 0.0 X10E9/L Normal 0.0-0.2 [facility] Comment on above: Performed By: #### C KERRY, PINR, 71378-5, CMP #### [facility] ([id number]) [address] [place] [address] 09640 ABSOLUTE NEUTROPHIL 4.7 X10E9/L Normal 1.5-6.6 [facility] Comment on above: Performed By: #### Belle PAYNE, PINR, 57821-4, CMP #### [facility] ([id number]) [address] [place] [address] 22559 Basophils/100 WBC (Bld) 0.6 % Normal [facility] Comment on above: Performed By: #### Belle PAYNE PINR, 86980-5, CMP #### [facility] ([id number]) [address] [place] [address] 45150 Eosinophils (Bld) [#/Vol] 0.2 10*3/uL Normal 0.0-0.4 [facility] Comment on above: Performed By: #### Belle PAYNE, PINR, 07149-4, CMP #### [facility] ([id number]) [address] [place] [address] 67340 Eosinophils/100 WBC (Bld) 3.6 % Normal [facility] Comment on above: Performed By: #### Belle PAYNE PINR, 16749-1, CMP #### [facility] ([id number]) [address] [place] [address] 60270 Erythrocyte distribution width (RBC) [Ratio] 16.5 % High 11.5-15.0 [facility] Comment on above: Performed By: #### Blele PAYNE, PINR, 02471-2, CMP #### [facility] ([id number]) [address] [place] [address] 59105 Hematocrit (Bld) [Volume fraction] 22.3 % Low 39-49 [facility] Comment on above: Performed By: #### Belle PAYNE PINR, 00481-8, CMP #### [facility] ([id number]) [address] [place] [address] 69270 Hemoglobin (Bld) [Mass/Vol] 7.5 g/dL Low 13.0-17.0 [facility] Comment on above: Performed By: #### Belle PAYNE PINR, 19779-4, CMP #### [facility] ([id number]) [address] [place] [address] 16834 Lymphocytes (Bld) [#/Vol] 0.5 10*3/uL Low 1.0-3.5 [facility] Comment on above: Performed By: #### KLARISSA Odonnell BCAR, 75547-8, CMP #### [facility] ([id number]) [address] [place] [address] 62027 Lymphocytes/100 WBC (Bld) 8.5 % Normal [facility] Comment on above: Performed By: #### Belle PAYNE PINR, 53132-6, CMP #### [facility] ([id number]) [address] [place] [address] 37232 MCH (RBC) [Entitic mass] 29.5 pg Normal 27-34 [facility] Comment on above: Performed By: #### KLARISSA Odonnell BCAR, 48475-4, CMP #### [facility] ([id number]) [address] [place] [address] 10803 MCHC (RBC) [Mass/Vol] 33.5 g/dL Normal 32-36 [facility] Comment on above: Performed By: #### Belle PAYNE PINR, 46988-6, CMP #### [facility] ([id number]) [address] [place] [address] 78936 MCV (RBC) [Entitic vol] 88 fL Normal 80-100 [facility] Comment on above: Performed By: #### C BCA, PINR, 20312-3, CMP #### [facility] ([id number]) [address] [place] [address] 87889 Monocytes (Bld) [#/Vol] 0.5 10*3/uL Normal 0-0.9 [facility] Comment on above: Performed By: #### Belle PAYNE, PINR, 76879-3, CMP #### [facility] ([id number]) [address] [place] [address] 24604 Monocytes/100 WBC (Bld) 8.9 % Normal [facility] Comment on above: Performed By: #### Belle PAYNE, PINR, 30526-4, CMP #### [facility] ([id number]) [address] [place] [address] 28156 Neutrophils/100 WBC (Bld) 78.4 % Normal [facility] Comment on above: Performed By: #### Belle PAYNE, PINR, 41257-0, CMP #### [facility] ([id number]) [address] [place] [address] 99702 Platelet mean volume (Bld) [Entitic vol] 8.3 fL Normal 7-12 [facility] Comment on above: Performed By: #### Belle PAYNE, PINR, 60441-0, CMP #### [facility] ([id number]) [address] [place] [address] 69001 Platelets (Bld) [#/Vol] 113 10*3/uL Low 150-450 [facility] Comment on above: Performed By: #### Belle PAYNE, PINR, 30978-4, CMP #### [facility] ([id number]) [address] [place] [address] 86098 RBC COUNT 2.53 X10E12/L Low 4.10-5.70 [facility] Comment on above: Performed By: #### Belle PAYNE, PINR, 83327-7, CMP #### [facility] ([id number]) [address] [facility] [place] [address] WBC (Bld) [#/Vol] 6.0 10*3/uL [facility] 4.0-11.0 [facility] Comment on above: Performed By: #### C KERRY, PINR, 70547-7, CMP #### [facility] ([id number]) [address] [place] [address] CBC auto differentialon 10-04 Basophils (Bld) [#/Vol] 0 10*3/uL [facility] Basophils/100 WBC (Bld) 0.6 % [facility] Eosinophils (Bld) [#/Vol] 0.2 10*3/uL [facility] Eosinophils/100 WBC (Bld) 3.6 % [facility] Erythrocyte distribution width (RBC) [Ratio] 16.5 % High 11.5 - 15.0 % [facility] Hematocrit (Bld) [Volume fraction] 22.3 % Low 39 - 49 % [facility] Hemoglobin (Bld) [Mass/Vol] 7.5 g/dL Low 13.0 - 17.0 g/dL [facility] Interpretation and review of laboratory results Abnormal [facility] Lymphocytes (Bld) [#/Vol] 0.5 10*3/uL Low [facility] Lymphocytes/100 WBC (Bld) 8.5 % [facility] MCH (RBC) [Entitic mass] 29.5 pg 27 - 34 pg [facility] MCHC (RBC) [Mass/Vol] 33.5 g/dL 32 - 36 g/dL [facility] MCV (RBC) [Entitic vol] 88 fL 80 - 100 fL [facility] Monocytes (Bld) [#/Vol] 0.5 10*3/uL [facility] Monocytes/100 WBC (Bld) 8.9 % [facility] Neutrophils (Bld) [#/Vol] 4.7 10*3/uL [facility] Neutrophils/100 WBC (Bld) 78.4 % [facility] Platelet mean volume (Bld) [Entitic vol] 8.3 fL 7 - 12 fL [facility] Platelets (Bld) [#/Vol] 113 10*3/uL Low [facility] RBC (Bld) [#/Vol] 2.53 10*6/uL Low [facility] WBC corrected for nucl RBC Auto (Bld) [#/Vol] 6 [facility] CK Totalon 10-26-2024 CK [Catalytic activity/Vol] 20 U/L Low 24 - 195 U/L [facility] CK [Catalytic activity/Vol]o n 10-26-2024 CPK 20 U/L Low 24-195 [facility] Comment on above: Performed By: #### C KERRY, PINR, 22677-3, CMP #### [facility] ([id number]) [address] [place] [address] 08030 COMPREHENSIVE METABOLIC PANE Jonathan 10-26-2024 Albumin [Mass/Vol] 1.9 g/dL Low 3.2-5.3 [facility] Comment on above: Performed By: #### C KERRY, PINR, 12222-1, CMP #### [facility] ([id number]) [address] [place] [address] 72131 ALP [Catalytic activity/Vol] 59 U/L Normal 39-130 [facility] Comment on above: Performed By: #### C BCA, PINR, 55133-9, CMP #### [facility] ([id number]) [address] [place] [address] 36311 ALT [Catalytic activity/Vol] 7 U/L Normal 0-40 [facility] Comment on above: Performed By: #### Belle BCA, PINR, 31454-3, CMP #### [facility] ([id number]) [address] [place] [address] 43047 Anion gap [Moles/Vol] 12 mmol/L Normal 5-15 [facility] Comment on above: Performed By: #### Belle BCA, PINR, 48015-4, CMP #### [facility] ([id number]) [address] [place] [address] [place] [address] AST [Catalytic activity/Vol] 13 U/L Normal 0-41 [facility] Comment on above: Performed By: #### C BCA, PINR, 33986-9, CMP #### [facility] ([id number]) [address] [place] [address] 14000 Bilirubin [Mass/Vol] 0.7 mg/dL Normal 0.3-1.2 [facility] Comment on above: Performed By: #### C BCA, PINR, 27320-6, CMP #### [facility] ([id number]) [address] [place] [address] 74783 Calcium [Mass/Vol] 7.6 mg/dL Low 8.5-10.5 [facility] Comment on above: Performed By: #### C BCA, PINR, 50831-2, CMP #### [facility] ([id number]) [address] [place] [address] 67825 Chloride [Moles/Vol] 108 mmol/L Normal 98-109 [facility] Comment on above: Performed By: #### C BCA, PINR, 05437-8, CMP #### [facility] ([id number]) [address] [place] [address] 12776 CO2 [Moles/Vol] 19 mmol/L Low 22-32 [facility] Comment on above: Performed By: #### C BCA, PINR, 47213-1, CMP #### [facility] ([id number]) [address] [place] [address] 92802 Creatinine [Mass/Vol] 4.28 mg/dL High 0.70-1.20 [facility] Comment on above: Result Comment: METH OD TRACEABLE TO IDMS STANDARD Performed By: #### C BCA, PINR, 46371-3, CMP #### [facility] ([id number]) [address] [place] [address] 61691 GFR/1.73 sq M.predicted among non-blacks MDRD (S/P/Bld) [Vol rate/Area] 15 mL/min/{1.73_m2} Low >59 [facility] Comment on above: Result Comment: Reported eGFR is based on the CKD-EPI 2020 equation that does not use a race coefficient. Performed By: #### C KLARISSA PAYNER, 73388-3, CMP #### [facility] ([id number]) [address] [place] [address] 34279 Glucose [Mass/Vol] 140 mg/dL High 65-99 [facility] Comment on above: Performed By: #### C KLARISSA PAYNER, 73535-1, CMP #### [facility] ([id number]) [address] [place] [address] 38751 Potassium [Moles/Vol] 5.1 mmol/L High 3.5-5.0 [facility] Comment on above: Performed By: #### C KLARISSA PAYNER, 64524-6, CMP #### [facility] ([id number]) [address] [place] [address] 46146 Protein [Mass/Vol] 5.4 g/dL Low 6.0-8.0 [facility] Comment on above: Performed By: #### C KERRY PINR, 54934-2, CMP #### [facility] ([id number]) [address] [place] [address] 80108 Sodium [Moles/Vol] 139 mmol/L Normal 134-146 [facility] Comment on above: Performed By: #### C KERRY PINR, 75581-1, CMP #### [facility] ([id number]) [address] [place] [address] 55313 Urea nitrogen [Mass/Vol] 102 mg/dL High 5-27 [facility] Comment on above: Performed By: #### C BCA, PINR, 03579-1, CMP #### [facility] ([id number]) [address] [place] [address], [place] [address] Comprehensive metabolic pane [facility] 10-26-2024 Albumin [Mass/Vol] 1.9 g/dL Low 3.2 - 5.3 g/dL [facility] ALP [Catalytic activity/Vol] 59 U/L 39 - 130 U/L [facility] ALT No additional P-5'-P [Catalytic activity/Vol] 7 U/L 0 - 40 U/L [facility] Anion gap [Moles/Vol] 12 mmol/L 5 - 15 mmol/L [facility] AST [Catalytic activity/Vol] 13 U/L 0 - 41 U/L [facility] Bilirubin [Mass/Vol] 0.7 mg/dL 0.3 - 1.2 mg/dL [facility] Calcium [Mass/Vol] 7.6 mg/dL Low 8.5 - 10. 5 mg/dL [facility] Chloride [Moles/Vol] 108 mmol/L 98 - 109 mmol/L [facility] CO2 [Moles/Vol] 19 mmol/L Low 22 - 32 mmol/L [facility] Creatinine [Mass/Vol] 4.28 mg/dL High 0.70 - 1.20 mg/dL [facility] Comment on above: METHOD TRACEABLE TO IDAK STANDARD eGFR (CKD-EPI)non-race dependent 15 Low - PINF [facility] Comment on above: Reported eGFR is based on the CKD-EPI 2020 equation that does not use a race coefficient. Glucose [Mass/Vol] 140 mg/dL High 65 - 99 mg/dL [facility] Potassium [Moles/Vol] 5.1 mmol/L High 3.5 - 5.0 mmol/L [facility] Protein [Mass/Vol] 5.4 g/dL Low 6.0 - 8.0 g/dL [facility] Sodium [Moles/Vol] 139 mmol/L 134 - 146 mmol/L [facility] Urea nitrogen [Mass/Vol] 102 mg/dL High 5 - 27 mg/dL [facility] MAGNESIUMon 10-26-2024 Magnesium [Mass/Vol] 1.5 mg/dL Low 1.8-2.6 [facility] Comment on above: Performed By: #### KLARISSA Odonnell BCAR, 53282-6, CMP #### [facility] ([id number]) [address] [place] [address] 61333 Magnesiumon 10-26-2024 Magnesium [Mass/Vol] 1.5 mg/dL Low 1.8 - 2.6 mg/dL [facility] No Panel Informationon 10-26 Interpretation and review of laboratory results Abnormal [facility] 36on 10-25-2024 36 Pt is currently admi tted to PTH no follow up on labs until discharge. Normal [facility] CBC AND AUTO DIFFon 10-25-20 ABSOLUTE BASOPHIL 0.0 X10E9/L Normal 0.0-0.2 [facility] Comment on above: Performed By: #### KLARISSA Odonnell BCAR, 51182-4, CMP #### [facility] ([id number]) [address] [place] [address] 64104 ABSOLUTE NEUTROPHIL 5.4 X10E9/L Normal 1.5-6.6 [facility] Comment on above: Performed By: #### KLARISSA Odonnell BCAR, 76638-5, CMP #### [facility] ([id number]) [address] [place] [address] 12152 Basophils/100 WBC (Bld) 0.6 % Normal [facility] Comment on above: Performed By: #### Belle PAYNE PINR, 41069-1, CMP #### [facility] ([id number]) [address] [place] [address] 30923 Eosinophils (Bld) [#/Vol] 0.2 10*3/uL Normal 0.0-0.4 [facility] Comment on above: Performed By: #### Belle PAYNE, PINR, 66432-5, CMP #### [facility] ([id number]) [address] [place] [address] 91812 Eosinophils/100 WBC (Bld) 3.2 % Normal [facility] Comment on above: Performed By: #### KLARISSA Odonnell BCAR, 84916-9, CMP #### [facility] ([id number]) [address] [place] [address] 46329 Erythrocyte distribution width (RBC) [Ratio] 16.2 % High 11.5-15.0 [facility] Comment on above: Performed By: #### KLARISSA Odonnell BCAR, 15687-5, CMP #### [facility] ([id number]) [address] [place] [address] 74929 Hematocrit (Bld) [Volume fraction] 21.5 % Low 39-49 [facility] Comment on above: Performed By: #### Belle PAYNE PINR, 30569-2, CMP #### [facility] ([id number]) [address] [place] [address] 20346 Hemoglobin (Bld) [Mass/Vol] 7.2 g/dL Low 13.0-17.0 [facility] Comment on above: Performed By: #### Belle PAYNE PINR, 78102-2, CMP #### [facility] ([id number]) [address] [place] [address] 03649 Lymphocytes (Bld) [#/Vol] 0.7 10*3/uL Low 1.0-3.5 [facility] Comment on above: Performed By: #### Belle PAYNE, PINR, 93771-8, CMP #### [facility] ([id number]) [address] [place] [address] 40985 Lymphocytes/100 WBC (Bld) 9.8 % Normal [facility] Comment on above: Performed By: #### Belle PAYNE, PINR, 69191-7, CMP #### [facility] ([id number]) [address] [place] [address] 93534 MCH (RBC) [Entitic mass] 29.4 pg Normal 27-34 [facility] Comment on above: Performed By: #### C BCA, PINR, 75168-6, CMP #### [facility] ([id number]) [address] [place] [address] 83583 MCHC (RBC) [Mass/Vol] 33.4 g/dL Normal 32-36 [facility] Comment on above: Performed By: #### C KERRY, PINR, 51661-5, CMP #### [facility] ([id number]) [address] [place] [address] 26866 MCV (RBC) [Entitic vol] 88 fL Normal 80-100 [facility] Comment on above: Performed By: #### Belle BCA, PINR, 75068-6, CMP #### [facility] ([id number]) [address] [place] [address] 84851 Monocytes (Bld) [#/Vol] 0.8 10*3/uL Normal 0-0.9 [facility] Comment on above: Performed By: #### Belle BCA, PINR, 74648-1, CMP #### [facility] ([id number]) [address] [place] [address] 36114 Monocytes/100 WBC (Bld) 10.9 % Normal [facility] Comment on above: Performed By: #### C BCA, PINR, 63149-7, CMP #### [facility] ([id number]) [address] [place] [address] 28959 Neutrophils/100 WBC (Bld) 75.5 % Normal [facility] Comment on above: Performed By: #### Belle BCA, PINR, 71737-7, CMP #### [facility] ([id number]) [address] [place] [address] 73172 Platelet mean volume (Bld) [Entitic vol] 8.7 fL Normal 7-12 [facility] Comment on above: Performed By: #### GRAHAM Odonnell BCA, 86064-8, CMP #### [facility] ([id number]) [address] [place] [address] 38888 Platelets (Bld) [#/Vol] 120 10*3/uL Low 150-450 [facility] Comment on above: Performed By: #### GRAHAM Odonnell BCA, 46960-9, CMP #### [facility] ([id number]) [address] [place] [address] 60136 RBC COUNT 2.43 X10E12/L Low 4.10-5.70 [facility] Comment on above: Performed By: #### GRAHAM Odonnell BCA, 04234-3, CMP #### [facility] ([id number]) [address] [place] [address] 70116 WBC (Bld) [#/Vol] 7.1 10*3/uL Normal 4.0-11.0 [facility] Comment on above: Performed By: #### GRAHAM Odonnell BCA, 90481-1, CMP #### [facility] ([id number]) [address] [place] [address] 32654 CBC auto differentialon 10-04 Basophils (Bld) [#/Vol] 0 10*3/uL [facility] Basophils/100 WBC (Bld) 0.6 % [facility] Eosinophils (Bld) [#/Vol] 0.2 10*3/uL [facility] Eosinophils/100 WBC (Bld) 3.2 % [facility] Erythrocyte distribution width (RBC) [Ratio] 16.2 % High 11.5 - 15.0 % [facility] Hematocrit (Bld) [Volume fraction] 21.5 % Low 39 - 49 % [facility] Hemoglobin (Bld) [Mass/Vol] 7.2 g/dL Low 13.0 - 17.0 g/dL [facility] Interpretation and review of laboratory results Abnormal [facility] Lymphocytes (Bld) [#/Vol] 0.7 10*3/uL Low [facility] Lymphocytes/100 WBC (Bld) 9.8 % [facility] MCH (RBC) [Entitic mass] 29.4 pg 27 - 34 pg [facility] MCHC (RBC) [Mass/Vol] 33.4 g/dL 32 - 36 g/dL [facility] MCV (RBC) [Entitic vol] 88 fL 80 - 100 fL [facility] Monocytes (Bld) [#/Vol] 0.8 10*3/uL [facility] Monocytes/100 WBC (Bld) 10.9 % [facility] Neutrophils (Bld) [#/Vol] 5.4 10*3/uL [facility] Neutrophils/100 WBC (Bld) 75.5 % [facility] Platelet mean volume (Bld) [Entitic vol] 8.7 fL 7 - 12 fL [facility] Platelets (Bld) [#/Vol] 120 10*3/uL Low [facility] RBC (Bld) [#/Vol] 2.43 10*6/uL Low [facility] WBC corrected for nucl RBC Auto (Bld) [#/Vol] 7.1 [facility] CK Totalon 10-25-2024 CK [Catalytic activity/Vol] 27 U/L 24 - 195 U/L [facility] CK [Catalytic activity/Vol]o n 10-25-2024 CPK 27 U/L Normal 24-195 [facility] Comment on above: Performed By: #### C BCA, PINR, 68899-8, CMP #### [facility] ([id number]) [address] [place] [address], [place] [address] COMPREHENSIVE METABOLIC PANE Jonathan 10-25-2024 Albumin [Mass/Vol] 1.9 g/dL Low 3.2-5.3 [facility] Comment on above: Performed By: #### C BCA, PINR, 95419-4, CMP #### [facility] ([id number]) [address] [place] [address] 84340 ALP [Catalytic activity/Vol] 57 U/L Normal 39-130 [facility] Comment on above: Performed By: #### C BCA, PINR, 61675-6, CMP #### [facility] ([id number]) [address] [place] [address] 35313 ALT [Catalytic activity/Vol] 9 U/L Normal 0-40 [facility] Comment on above: Performed By: #### C BCA, PINR, 96679-5, CMP #### [facility] ([id number]) [address] [place] [address] 26005 Anion gap [Moles/Vol] 15 mmol/L Normal 5-15 [facility] Comment on above: Performed By: #### C BCA, PINR, 42366-1, CMP #### [facility] ([id number]) [address] [place] [address] 46559 AST [Catalytic activity/Vol] 12 U/L Normal 0-41 [facility] Comment on above: Performed By: #### C BCA, PINR, 51836-1, CMP #### [facility] ([id number]) [address] [place] [address] 17672 Bilirubin [Mass/Vol] 0.7 mg/dL Normal 0.3-1.2 [facility] Comment on above: Performed By: #### C BCA, PINR, 13197-2, CMP #### [facility] ([id number]) [address] [place] [address] 25317 Calcium [Mass/Vol] 7.3 mg/dL Low 8.5-10.5 [facility] Comment on above: Performed By: #### C BCA, PINR, 08806-5, CMP #### [facility] ([id number]) [address] [place] [address] 54346 Chloride [Moles/Vol] 105 mmol/L Normal 98-109 [facility] Comment on above: Performed By: #### C GRAHAM PAYNE, 26017-6, CMP #### [facility] ([id number]) [address] [place] [address] 40524 CO2 [Moles/Vol] 17 mmol/L Low 22-32 [facility] Comment on above: Performed By: #### C KLARISSA PAYNER, 30581-7, CMP #### [facility] ([id number]) [address] [place], [place] [address] 64707 Creatinine [Mass/Vol] 4.31 mg/dL High 0.70-1.20 [facility] Comment on above: Result Comment: METH OD TRACEABLE TO IDMS STANDARD Performed By: #### C GRAHAM PAYNE, 42049-1, CMP #### [facility] ([id number]) [address] [address] 48741 GFR/1.73 sq M.predicted among non-blacks MDRD (S/P/Bld) [Vol rate/Area] 14 mL/min/{1.73_m2} Low >59 [facility] Comment on above: Result Comment: Reported eGFR is based on the CKD-EPI 2020 equation that does not use a race coefficient. Performed By: #### C GRAHAM PAYNE, 57655-4, CMP #### [facility] ([id number]) [address] [place] [address] 32438 Glucose [Mass/Vol] 105 mg/dL High 65-99 [facility] Comment on above: Performed By: #### C KLARISSA PAYNER, 74799-5, CMP #### [facility] ([id number]) [address] [place] [address] 50142 Potassium [Moles/Vol] 5.4 mmol/L High 3.5-5.0 [facility] Comment on above: Performed By: #### C KERRY, PINR, 01353-0, CMP #### [facility] ([id number]) [address] [place] [address] 66950 Protein [Mass/Vol] 5.1 g/dL Low 6.0-8.0 [facility] Comment on above: Performed By: #### C KERRY, PINR, 86487-8, CMP #### [facility] ([id number]) [address] [place] [address] 01811 Sodium [Moles/Vol] 137 mmol/L Normal 134-146 [facility] Comment on above: Performed By: #### C KERRY PINR, 30578-4, CMP #### [facility] ([id number]) [address] [place] [address] 24638 Urea nitrogen [Mass/Vol] 97 mg/dL High 5-27 [facility] Comment on above: Performed By: #### C KERRY, PINR, 07338-8, CMP #### [facility] ([id number]) [address] [place] [address] 73001 Calcium.ionized (Bld) [Moles /Vol]on 10-25-2024 Interpretation and review of laboratory results Abnormal [facility] PORTABLE ICA 4.1 mg/dL Low 4.5-5.3 [facility] Comment on above: Performed By: #### C BCA, PINR, 49699-4, CMP #### [facility] ([id number]) [address] [place] [address] 97061 Comprehensive metabolic pane jonathan 10-25-2024 Albumin [Mass/Vol] 1.9 g/dL Low 3.2 - 5.3 g/dL [facility] ALP [Catalytic activity/Vol] 57 U/L 39 - 130 U/L [facility] ALT No additional P-5'-P [Catalytic activity/Vol] 9 U/L 0 - 40 U/L [facility] Anion gap [Moles/Vol] 15 mmol/L 5 - 15 mmol/L [facility] AST [Catalytic activity/Vol] 12 U/L 0 - 41 U/L [facility] Bilirubin [Mass/Vol] 0.7 mg/dL 0.3 - 1.2 mg/dL [facility] Calcium [Mass/Vol] 7.3 mg/dL Low 8.5 - 10. 5 mg/dL [facility] Chloride [Moles/Vol] 105 mmol/L 98 - 109 mmol/L [facility] CO2 [Moles/Vol] 17 mmol/L Low 22 - 32 mmol/L [facility] Creatinine [Mass/Vol] 4.31 mg/dL High 0.70 - 1.20 mg/dL [facility] Comment on above: METHOD TRACEABLE TO [facility] STANDARD eGFR (CKD-EPI)non-race dependent 14 Low - PINF [facility] Comment on above: Reported eGFR is based on the CKD-EPI 2020 equation that does not use a race coefficient. Glucose [Mass/Vol] 105 mg/dL High 65 - 99 mg/dL [facility] Potassium [Moles/Vol] 5.4 mmol/L High 3.5 - 5.0 mmol/L [facility] Protein [Mass/Vol] 5.1 g/dL Low 6.0 - 8.0 g/dL [facility] Sodium [Moles/Vol] 137 mmol/L 134 - 146 mmol/L [facility] Urea nitrogen [Mass/Vol] 97 mg/dL High 5 - 27 mg/dL [facility] MAGNESIUMon 10-25-2024 Magnesium [Mass/Vol] 1.7 mg/dL Low 1.8-2.6 [facility] Comment on above: Performed By: #### C KERRY PINR, 22495-2, CMP #### [facility] ([id number]) [address] [place] [address] [place] [address] Magnesium [Mass/Vol] 1.5 mg/dL Low 1.8-2.6 [facility] Comment on above: Performed By: #### C BCA, PINR, 76714-3, CMP #### [facility] ([id number]) [address] [facility], [place] [address] MR LOWER LEG LT WO CONTon MR LOWER LEG LT WO CONT MR LOWER LEG LT WO CONT HISTORY: A 64-year-old male with the history of the displaced comminuted fracture of the left distal femur. Abnormal x-rays. Complaining of the pain. TECHNIQUE: Multiplanar and multisequence MRI examination of the left lower leg is performed. COMPARISON: Comparison is made with the plain film radiographs of the left knee of 10/22/2024. FINDINGS: Recent knee radiographs reveal displaced comminuted fracture of the distal femur with the deformity. There is a deformity of the proximal tibia. MRI examination reveals a small cystic area in the proximal tibia and measures 2 cm. Appearance of the proximal tibia is suggestive of sequelae of the old trauma. No acute fracture is identified in the tibia. Fibula is intact. There is a joint effusion in the left knee. Menisci appear intact. Left ankle joint is intact with small joint effusion. There is a heterogeneous signal in the muscles of the lower legs is edema. No focal hematoma is identified. There is a diffuse swelling of the superficial soft tissues of the lower leg consistent with the edema. No focal fluid collection or hematoma is identified. IMPRESSION: * There is a deformity of the proximal tibia with appearance of the old healed fracture. A 2 cm cystic abnormality seen in the proximal tibia. No recent fractures are seen in the tibia and fibula. * There is a displaced comminuted fracture of the distal femur with the deformity. * Fluid collection in the left knee and left ankle joints. * Diffuse soft tissue edema in the left lower leg. No focal fluid collection or hematoma is identified. Finalized by Ramirez Hutchison MD on 10/25/2024 9:58 AM Normal [facility] MR Lower leg - left WO contr renetta 10-25-2024 HISTORY: A 64-year-o ld male with the history of the displaced comminuted fracture of the left distal femur. Abnormal x-rays. Complaining of the pain. TECHNIQUE: Multiplanar and multisequence MRI examination of the left lower leg is performed. COMPARISON: Comparison is made with the plain film radiographs of the left knee of 10/22/2024. FINDINGS: Recent knee radiographs reveal displaced comminuted fracture of the distal femur with the deformity. There is a deformity of the proximal tibia. MRI examination reveals a small cystic area in the proximal tibia and measures 2 cm. Appearance of the proximal tibia is suggestive of sequelae of the old trauma. No acute fracture is identified in the tibia. Fibula is intact. There is a joint effusion in the left knee. Menisci appear intact. Left ankle joint is intact with small joint effusion. There is a heterogeneous signal in the muscles of the lower legs is edema. No focal hematoma is identified. There is a diffuse swelling of the superficial soft tissues of the lower leg consistent with the edema. No focal fluid collection or hematoma is identified. IMPRESSION: * There is a deformity of the proximal tibia with appearance of the old healed fracture. A 2 cm cystic abnormality seen in the proximal tibia. No recent fractures are seen in the tibia and fibula. * There is a displaced comminuted fracture of the distal femur with the deformity. * Fluid collection in the left knee and left ankle joints. * Diffuse soft tissue edema in the left lower leg. No focal fluid collection or hematoma is identified. Finalized by Ramirez Hutchison MD on 10/25/2024 9:58 AM [facility] Ramirez Hutchison MD - 10/25/2024 HISTORY: A 64-year-old male with the history of the displaced comminuted fracture of the left distal femur. Abnormal x-rays. Complaining of the pain. TECHNIQUE: Multiplanar and multisequence MRI examination of the left lower leg is performed. COMPARISON: Comparison is made with the plain film radiographs of the left knee of 10/22/2024. FINDINGS: Recent knee radiographs reveal displaced comminuted fracture of the distal femur with the deformity. There is a deformity of the proximal tibia. MRI examination reveals a small cystic area in the proximal tibia and measures 2 cm. Appearance of the proximal tibia is suggestive of sequelae of the old trauma. No acute fracture is identified in the tibia. Fibula is intact. There is a joint effusion in the left knee. Menisci appear intact. Left ankle joint is intact with small joint effusion. There is a heterogeneous signal in the muscles of the lower legs is edema. No focal hematoma is identified. There is a diffuse swelling of the superficial soft tissues of the lower leg consistent with the edema. No focal fluid collection or hematoma is identified. IMPRESSION: * There is a deformity of the proximal tibia with appearance of the old healed fracture. A 2 cm cystic abnormality seen in the proximal tibia. No recent fractures are seen in the tibia and fibula. * There is a displaced comminuted fracture of the distal femur with the deformity. * Fluid collection in the left knee and left ankle joints. * Diffuse soft tissue edema in the left lower leg. No focal fluid collection or hematoma is identified. Finalized by Ramirez Hutchison MD on 10/25/2024 9:58 AM [facility] Radiology Study observation (narrative) [facility] MR Lower leg - left WO contr astOrdered By: Ramirez Hutchison on 10-25-2024 [facility] Work Phone: Magnesiumon 10-25-2024 Magnesium [Mass/Vol] 1.7 mg/dL Low 1.8 - 2.6 mg/dL [facility] Magnesium [Mass/Vol] 1.5 mg/dL Low 1.8 - 2.6 mg/dL [facility] Magnesium [Mass/Vol]on 10-25 Interpretation and review of laboratory results Abnormal [facility] No Panel Informationon 10-25 [facility] Interpretation and review of laboratory results Abnormal [facility] PHOSPHORUSon 10-25-2024 Phosphate [Mass/Vol] 9.1 mg/dL High 2.4-4.9 [facility] Comment on above: Performed By: #### C GRAHAM PAYNE, 98160-7, CMP #### [facility] ([id number]) [address] [place] [address], [place] [address] POCT Ionized Calciumon 10-25 Calcium.ionized (Bld) [Moles/Vol] 4.1 mg/dL Low 4.5 - 5.3 mg/dL [facility] POTASSIUMon 10-25-2024 Potassium [Moles/Vol] 5.3 mmol/L High 3.5-5.0 [facility] Comment on above: Performed By: #### C GRAHAM PAYNE, 03821-2, CMP #### [facility] ([id number]) [address] [place] [address] 00421 Phosphate [Mass/Vol]on 10-25 Interpretation and review of laboratory results Abnormal [facility] Phosphoruson 10-25-2024 Phosphate [Mass/Vol] 9.1 mg/dL High 2.4 - 4.9 mg/dL [facility] Potassiumon 10-25-2024 Potassium [Moles/Vol] 5.3 mmol/L High 3.5 - 5.0 mmol/L [facility] Potassium [Moles/Vol]on 10-04 Interpretation and review of laboratory results Abnormal [facility] CBC AND AUTO DIFFon 10-24-20 24 Basophils/100 WBC (Bld) 0.5 % Normal [facility] Comment on above: Performed By: #### C GRAHAM PAYNE, 19005-3, CMP #### [facility] ([id number]) [address] [place] [address] 53909 Eosinophils (Bld) [#/Vol] 0.3 10*3/uL Normal 0.0-0.4 [facility] Comment on above: Performed By: #### C GRAHAM PAYNE, 02589-9, CMP #### [facility] ([id number]) [address] [place] [address] 04926 Eosinophils/100 WBC (Bld) 3.4 % Normal [facility] Comment on above: Performed By: #### GRAHAM Odonnell BCA, 25052-3, CMP #### [facility] ([id number]) [address] [address] 35271 Erythrocyte distribution width (RBC) [Ratio] 15.9 % High 11.5-15.0 [facility] Comment on above: Performed By: #### GRAHAM Odonnell BCA, 50467-5, CMP #### [facility] ([id number]) [address] [place] [address] 57657 Hematocrit (Bld) [Volume fraction] 22.9 % Low 39-49 [facility] Comment on above: Performed By: #### C KLARISSA PAYNER, 39009-2, CMP #### [facility] ([id number]) [address] [place] [address] 66353 Hemoglobin (Bld) [Mass/Vol] 7.7 g/dL Low 13.0-17.0 [facility] Comment on above: Performed By: #### KLARISSA Odonnell BCAR, 31920-7, CMP #### [facility] ([id number]) [address] [place] [address] 91057 Lymphocytes (Bld) [#/Vol] 0.7 10*3/uL Low 1.0-3.5 [facility] Comment on above: Performed By: #### C KERRY PINR, 07500-3, CMP #### [facility] ([id number]) [address] [place] [address] 06957 Lymphocytes/100 WBC (Bld) 8.1 % Normal [facility] Comment on above: Performed By: #### KLARISSA Odonnell BCAR, 00154-5, CMP #### [facility] ([id number]) [address] [place] [address] 13948 MCH (RBC) [Entitic mass] 29.7 pg Normal 27-34 [facility] Comment on above: Performed By: #### Belle PAYNE PINR, 89339-0, CMP #### [facility] ([id number]) [address] [place] [address] 36222 MCHC (RBC) [Mass/Vol] 33.6 g/dL Normal 32-36 [facility] Comment on above: Performed By: #### KLARISSA Odonnell BCAR, 43964-2, CMP #### [facility] ([id number]) [address] [place] [address] 78006 MCV (RBC) [Entitic vol] 88 fL Normal 80-100 [facility] Comment on above: Performed By: #### C BCA, PINR, 76284-3, CMP #### [facility] ([id number]) [address] [place] [address] 01649 Monocytes (Bld) [#/Vol] 0.9 10*3/uL Normal 0-0.9 [facility] Comment on above: Performed By: #### C BCA, PINR, 65096-3, CMP #### [facility] ([id number]) [address] [place] [address] 18584 Monocytes/100 WBC (Bld) 11.3 % Normal [facility] Comment on above: Performed By: #### Belle PAYNE, PINR, 99313-1, CMP #### [facility] ([id number]) [address] [place] [address] 83589 Neutrophils/100 WBC (Bld) 76.7 % Normal [facility] Comment on above: Performed By: #### Belle BCA, PINR, 32675-6, CMP #### [facility] ([id number]) [address] [place] [address] 68446 Platelet mean volume (Bld) [Entitic vol] 8.4 fL Normal 7-12 [facility] Comment on above: Performed By: #### Belle BCA, PINR, 53815-5, CMP #### [facility] ([id number]) [address] [place] [address] 20921 Platelets (Bld) [#/Vol] 123 10*3/uL Low 150-450 [facility] Comment on above: Performed By: #### Belle BCA, PINR, 57934-3, CMP #### [facility] ([id number]) [address] [place] [address] 25665 ABSOLUTE BASOPHIL 0.0 X10E9/L Normal 0.0-0.2 [facility] Comment on above: Performed By: #### Belle BCA, PINR, 68956-4, CMP #### [facility] ([id number]) [address] [place] [address] 90718 ABSOLUTE NEUTROPHIL 6.2 X10E9/L Normal 1.5-6.6 [facility] Comment on above: Performed By: #### C BCA, PINR, 11581-6, CMP #### [facility] ([id number]) [address] [place] [address] 75766 RBC COUNT 2.60 X10E12/L Low 4.10-5.70 [facility] Comment on above: Performed By: #### Belle PAYNE, PINR, 35572-3, CMP #### [facility] ([id number]) [address] [place] [address] 40238 WBC (Bld) [#/Vol] 8.1 10*3/uL Normal 4.0-11.0 [facility] Comment on above: Performed By: #### Belle PAYNE, PINR, 95287-8, CMP #### [facility] ([id number]) [address] [place] [address] 46231 CBC auto differentialon 10-04 Basophils (Bld) [#/Vol] 0 10*3/uL [facility] Interpretation and review of laboratory results Abnormal [facility] Neutrophils (Bld) [#/Vol] 6.2 10*3/uL [facility] RBC (Bld) [#/Vol] 2.6 10*6/uL Low [facility] WBC corrected for nucl RBC Auto (Bld) [#/Vol] 8.1 [facility] COMPREHENSIVE METABOLIC PANE Jonathan 10-24-2024 Albumin [Mass/Vol] 2.2 g/dL Low 3.2-5.3 [facility] Comment on above: Performed By: #### C BCA, PINR, 03291-0, CMP #### [facility] ([id number]) [address] [place] [address] 76583 ALP [Catalytic activity/Vol] 61 U/L Normal 39-130 [facility] Comment on above: Performed By: #### C BCA, PINR, 58230-7, CMP #### [facility] ([id number]) [address] [place] [address] 86743 Anion gap [Moles/Vol] 11 mmol/L Normal 5-15 [facility] Comment on above: Performed By: #### C BCA, PINR, 38140-3, CMP #### [facility] ([id number]) [address] [place] [address] 42105 AST [Catalytic activity/Vol] 14 U/L Normal 0-41 [facility] Comment on above: Performed By: #### C BCA, PINR, 76660-1, CMP #### [facility] ([id number]) [address] [place] [address] 73010 Bilirubin [Mass/Vol] 0.8 mg/dL Normal 0.3-1.2 [facility] Comment on above: Performed By: #### C BCA, PINR, 18111-5, CMP #### [facility] ([id number]) [address] [place] [address] 18071 Calcium [Mass/Vol] 7.3 mg/dL Low 8.5-10.[address] [facility] Comment on above: Performed By: #### C BCA, PINR, 36649-5, CMP #### [facility] ([id number]) [address] [place] [address] 71841 Chloride [Moles/Vol] 106 mmol/L Normal 98-109 [facility] Comment on above: Performed By: #### C BCA, PINR, 31974-2, CMP #### [facility] ([id number]) [address] [place] [address] 11354 CO2 [Moles/Vol] 20 mmol/L Low 22-32 [facility] Comment on above: Performed By: #### C BCA, PINR, 28828-7, CMP #### [facility] ([id number]) [address] [place] [address] 66429 Creatinine [Mass/Vol] 4.29 mg/dL High 0.70-1.20 [facility] Comment on above: METHOD TRACEABLE TO IDMS STANDARD Result Comment: METH OD TRACEABLE TO IDMS STANDARD Performed By: #### C BCA, PINR, 19195-6, CMP #### [facility] ([id number]) [address] [place] [address] 91584 Glucose [Mass/Vol] 105 mg/dL High 65-[address] [facility] Comment on above: Performed By: #### C KERRY, PINR, 10472-4, CMP #### [facility] ([id number]) [address] [place] [address] 00703 Potassium [Moles/Vol] 5.7 mmol/L High 3.5-5.0 [facility] Comment on above: Performed By: #### C BCA, PINR, 88280-4, CMP #### [facility] ([id number]) [address] [place] [address] 45056 Protein [Mass/Vol] 5.5 g/dL Low 6.0-8.[address] [facility] Comment on above: Performed By: #### C BCA, PINR, 17126-4, CMP #### [facility] ([id number]) [address] [place] [address] 44584 Sodium [Moles/Vol] 137 mmol/L Normal 134-[address] [facility] Comment on above: Performed By: #### C BCA, PINR, 75485-9, CMP #### [facility] ([id number]) [address] [place] [address] 99750 Urea nitrogen [Mass/Vol] 98 mg/dL High 5-27 [facility] Comment on above: Performed By: #### C BCA, PINR, 71125-6, CMP #### [facility] ([id number]) [address] [place] [address] 43429 ALT [Catalytic activity/Vol] 12 U/L Normal 0-40 [facility] Comment on above: Performed By: #### C GRAHAM PAYNE, 82250-8, CMP #### [facility] ([id number]) [address] [place] [address] 31016 GFR/1.73 sq M.predicted among non-blacks MDRD (S/P/Bld) [Vol rate/Area] 14 mL/min/{1.73_m2} Low >59 [facility] Comment on above: Result Comment: Reported eGFR is based on the CKD-EPI 2020 equation that does not use a race coefficient. Performed By: #### C GRAHAM PAYNE, 13574-1, CMP #### [facility] ([id number]) [address] [place] [address] 83596 Comprehensive metabolic pane jonathan 10-24-2024 ALT No additional P-5'-P [Catalytic activity/Vol] 12 U/L 0 - 40 U/L [facility] eGFR (CKD-EPI)non-race dependent 14 Low - PINF [facility] Comment on above: Reported eGFR is based on the CKD-EPI 2020 equation that does not use a race coefficient. Crossmatch RBC:Number of Uni ts: 1on 10-24-2024 Blood component type [id number] [facility] Blood component type [id number] [facility] Unit number [id number] [facility] Unit number [id number] [facility] HGB AND HCTon 10-24-2024 Hematocrit (Bld) [Volume fraction] 23.9 % Low 39-49 [facility] Comment on above: Performed By: #### C GRAHAM PAYNE, 24188-3, CMP #### [facility] ([id number]) [address] [place] [address] 02505 Hemoglobin (Bld) [Mass/Vol] 7.8 g/dL Low 13.0-17.0 [facility] Comment on above: Performed By: #### C GRAHAM PAYNE, 99707-0, CMP #### [facility] ([id number]) [address] [place] [address] 07999 Hemoglobin and hematocrit, b loodon 10-24-2024 Hematocrit (Bld) [Volume fraction] 23.9 % Low 39 - 49 % [facility] Hemoglobin (Bld) [Mass/Vol] 7.8 g/dL Low 13.0 - 17.0 g/dL [facility] Interpretation and review of laboratory results Abnormal [facility] Laboratory - Chemistry and C hemistry - challengeon 10-24-2024 Potassium [Moles/Vol] 4.9 mmol/L Normal 3.5-5.0 [facility] Comment on above: Performed By: #### C GRAHAM PAYNE, 71682-8, CMP #### [facility] ([id number]) [address] [place] [address] 94766 Magnesium [Mass/Vol] 1.6 mg/dL Low 1.8-2.6 [facility] Comment on above: Performed By: #### GRAHAM Odonnell BCA, 15373-9, CMP #### [facility] ([id number]) [address] [place] [address] 05111 No Panel Informationon 10-24 Interpretation and review of laboratory results Abnormal [facility] BB Type Barcode 5100 [facility] Crossmatch Compatible [facility] Expiration Date [id number] [facility] Status of unit TRANSFUSED [facility] Unit ABO O [facility] Unit RH Positive [facility] Potassium [Moles/Vol]on 10-04 [facility] CBC AND AUTO DIFFon 10-23-20 ABSOLUTE BASOPHIL 0.0 X10E9/L Normal 0.0-0.2 [facility] Comment on above: Performed By: #### C MP, , CBCA #### [facility] ([id number]) [address] [place] [address] 22584 ABSOLUTE NEUTROPHIL 5.5 X10E9/L Normal 1.5-6.6 [facility] Comment on above: Performed By: #### C DIANE, , CBCA #### [facility] ([id number]) [address] [place] [address] 71810 Basophils/100 WBC (Bld) 0.6 % Normal [facility] Comment on above: Performed By: #### C DIANE, , CBCA #### [facility] ([id number]) [address] [place] [address] [address]28 Eosinophils (Bld) [#/Vol] 0.2 10*3/uL Normal 0.0-0.4 [facility] Comment on above: Performed By: #### C DIANE, , CBCA #### [facility] ([id number]) [address] [place] [address] 84949 Eosinophils/100 WBC (Bld) 3.1 % Normal [facility] Comment on above: Performed By: #### C DIANE, , CBCA #### [facility] ([id number]) [address] [place] [address] 61156 Erythrocyte distribution width (RBC) [Ratio] 17.5 % High 11.5-15.0 [facility] Comment on above: Performed By: #### C DIANE, , CBCA #### [facility] ([id number]) [address] [place] [address] 64863 Hematocrit (Bld) [Volume fraction] 19.0 % Low 39-49 [facility] Comment on above: Performed By: #### C DIANE, , CBCA #### [facility] ([id number]) [address] [place] [address] 73517 Hemoglobin (Bld) [Mass/Vol] 6.1 g/dL Critically low 13.0-17.0 [facility] Comment on above: Performed By: #### C DIANE, , CBCA #### [facility] ([id number]) [address] [place] [address] 95190 Lymphocytes (Bld) [#/Vol] 0.6 10*3/uL Low 1.0-3.5 [facility] Comment on above: Performed By: #### C DIANE, , CBCA #### [facility] ([id number]) [address] [place] [address] 51190 Lymphocytes/100 WBC (Bld) 8.7 % Normal [facility] Comment on above: Performed By: #### Belle CONTRERAS, , CBCA #### [facility] ([id number]) [address] [place] [address] 53347 MCH (RBC) [Entitic mass] 28.8 pg Normal 27-34 [facility] Comment on above: Performed By: #### Belle CONTRERAS, , CBCA #### [facility] ([id number]) [address] [place] [address] 15835 MCHC (RBC) [Mass/Vol] 32.3 g/dL Normal 32-36 [facility] Comment on above: Performed By: #### C DIANE, , CBCA #### [facility] ([id number]) [address] [place] [address] 88492 MCV (RBC) [Entitic vol] 89 fL Normal 80-100 [facility] Comment on above: Performed By: #### C DIANE, , CBCA #### [facility] ([id number]) [address] [place] [address] 56528 Monocytes (Bld) [#/Vol] 0.7 10*3/uL Normal 0-0.9 [facility] Comment on above: Performed By: #### C DIANE, , CBCA #### [facility] ([id number]) [address] [place] [address] 84801 Monocytes/100 WBC (Bld) 9.7 % Normal [facility] Comment on above: Performed By: #### C DIANE, , CBCA #### [facility] ([id number]) [address] [place] [address] 61491 Neutrophils/100 WBC (Bld) 77.9 % Normal [facility] Comment on above: Performed By: #### C DIANE, , CBCA #### [facility] ([id number]) [address] [place] [address] [place] [address] Platelet mean volume (Bld) [Entitic vol] 8.0 fL Normal 7-12 [facility] Comment on above: Performed By: #### C DIANE, , CBCA #### [facility] ([id number]) [address] [place] [address] 97556 Platelets (Bld) [#/Vol] 133 10*3/uL Low 150-450 [facility] Comment on above: Performed By: #### C DIANE, , CBCA #### [facility] ([id number]) [address] [place] [address] [place] [address] RBC COUNT 2.13 X10E12/L Low 4.10-5.70 [facility] Comment on above: Performed By: #### C DIANE, , CBCA #### [facility] ([id number]) [address] [place] [address] [place] [address] WBC (Bld) [#/Vol] 7.1 10*3/uL Normal 4.0-11.0 [facility] Comment on above: Performed By: #### [place], [address]-0, CBCA #### [facility] ([id number]) [address] [facility] [place] [address] CBC auto differentialon 10-04 Basophils (Bld) [#/Vol] 0 10*3/uL [facility] Basophils/100 WBC (Bld) 0.6 % [facility] Eosinophils (Bld) [#/Vol] 0.2 10*3/uL [facility] Eosinophils/100 WBC (Bld) 3.1 % [facility] Erythrocyte distribution width (RBC) [Ratio] 17.5 % High 11.5 - 15.0 % [facility] Hematocrit (Bld) [Volume fraction] 19 % Low 39 - 49 % [facility] Hemoglobin (Bld) [Mass/Vol] 6.1 g/dL Critically low 13.0 - 17.0 g/dL [facility] Interpretation and review of laboratory results Abnormal [facility] Lymphocytes (Bld) [#/Vol] 0.6 10*3/uL Low [facility] Lymphocytes/100 WBC (Bld) 8.7 % [facility] MCH (RBC) [Entitic mass] 28.8 pg 27 - 34 pg [facility] MCHC (RBC) [Mass/Vol] 32.3 g/dL 32 - 36 g/dL [facility] MCV (RBC) [Entitic vol] 89 fL 80 - 100 fL [facility] Monocytes (Bld) [#/Vol] 0.7 10*3/uL [facility] Monocytes/100 WBC (Bld) 9.7 % [facility] Neutrophils (Bld) [#/Vol] 5.5 10*3/uL [facility] Neutrophils/100 WBC (Bld) 77.9 % [facility] Platelet mean volume (Bld) [Entitic vol] 8 fL 7 - 12 fL [facility] Platelets (Bld) [#/Vol] 133 10*3/uL Low [facility] RBC (Bld) [#/Vol] 2.13 10*6/uL Low [facility] WBC corrected for nucl RBC Auto (Bld) [#/Vol] 7.1 [facility] COMPREHENSIVE METABOLIC PANE Jonathan 10-23-2024 Albumin [Mass/Vol] 2.2 g/dL Low 3.2-5.3 [facility] Comment on above: Performed By: #### C DIANE, , CBCA #### [facility] ([id number]) [address] [place] [address] 77854 ALP [Catalytic activity/Vol] 61 U/L Normal 39-130 [facility] Comment on above: Performed By: #### C DIANE, , CBCA #### [facility] ([id number]) [address] [place] [address] 67850 ALT [Catalytic activity/Vol] 11 U/L Normal 0-40 [facility] Comment on above: Performed By: #### C DIANE, , CBCA #### [facility] ([id number]) [address] [place] [address] 99270 Anion gap [Moles/Vol] 14 mmol/L Normal 5-15 [facility] Comment on above: Performed By: #### C DIANE, , CBCA #### [facility] ([id number]) [address] [place] [address] 72125 AST [Catalytic activity/Vol] 16 U/L Normal 0-41 [facility] Comment on above: Performed By: #### C DIANE, , CBCA #### [facility] ([id number]) [address] [place] [address] 30264 Bilirubin [Mass/Vol] 0.6 mg/dL Normal 0.3-1.2 [facility] Comment on above: Performed By: #### C DIANE, , CBCA #### [facility] ([id number]) [address] [place] [address] 80360 Calcium [Mass/Vol] 7.8 mg/dL Low 8.5-10.5 [facility] Comment on above: Performed By: #### C DIANE, , CBCA #### [facility] ([id number]) [address] [place] [address] 45843 Chloride [Moles/Vol] 106 mmol/L Normal 98-109 [facility] Comment on above: Performed By: #### C DIANE, , CBCA #### [facility] ([id number]) [address] [place] [address] 44975 CO2 [Moles/Vol] 17 mmol/L Low 22-32 [facility] Comment on above: Performed By: #### Belle CONTRERAS, , CBCA #### [facility] ([id number]) [address] [place] [address] 48863 Creatinine [Mass/Vol] 4.32 mg/dL High 0.70-1.20 [facility] Comment on above: Result Comment: METH OD TRACEABLE TO IDMS STANDARD Performed By: #### Belle CONTRERAS, , CBCA #### [facility] ([id number]) [address] [place] [address] 51069 GFR/1.73 sq M.predicted among non-blacks MDRD (S/P/Bld) [Vol rate/Area] 14 mL/min/{1.73_m2} Low >59 [facility] Comment on above: Result Comment: Reported eGFR is based on the CKD-EPI 2020 equation that does not use a race coefficient. Performed By: #### C DIANE, , CBCA #### [facility] ([id number]) [address] [place] [address] 69230 Glucose [Mass/Vol] 120 mg/dL High 65-99 [facility] Comment on above: Performed By: #### Belle CONTRERAS, , CBCA #### [facility] ([id number]) [address] [place] [address] 81215 Potassium [Moles/Vol] 5.3 mmol/L High 3.5-5.0 [facility] Comment on above: Performed By: #### C DIANE, , CBCA #### [facility] ([id number]) [address] [place] [address] 51664 Protein [Mass/Vol] 5.4 g/dL Low 6.0-8.0 [facility] Comment on above: Performed By: #### C DIANE, , CBCA #### [facility] ([id number]) [address] [place] [address] 71285 Sodium [Moles/Vol] 137 mmol/L Normal 134-146 [facility] Comment on above: Performed By: #### C DIANE, , CBCA #### [facility] ([id number]) [address] [place] [address] 17649 Urea nitrogen [Mass/Vol] 98 mg/dL High 5-27 [facility] Comment on above: Performed By: #### C DIANE, , CBCA #### [facility] ([id number]) [address] [place] [address] 33067 Comprehensive metabolic pane [facility] 10-23-2024 Albumin [Mass/Vol] 2.2 g/dL Low 3.2 - 5.3 g/dL [facility] ALP [Catalytic activity/Vol] 61 U/L 39 - 130 U/L [facility] ALT No additional P-5'-P [Catalytic activity/Vol] 11 U/L 0 - 40 U/L [facility] Anion gap [Moles/Vol] 14 mmol/L 5 - 15 mmol/L [facility] AST [Catalytic activity/Vol] 16 U/L 0 - 41 U/L [facility] Bilirubin [Mass/Vol] 0.6 mg/dL 0.3 - 1.2 mg/dL [facility] Calcium [Mass/Vol] 7.8 mg/dL Low 8.5 - 10. 5 mg/dL [facility] Chloride [Moles/Vol] 106 mmol/L 98 - 109 mmol/L [facility] CO2 [Moles/Vol] 17 mmol/L Low 22 - 32 mmol/L [facility] Creatinine [Mass/Vol] 4.32 mg/dL High 0.70 - 1.20 mg/dL [facility] Comment on above: METHOD TRACEABLE TO [facility] STANDARD eGFR (CKD-EPI)non-race dependent 14 Low - PINF [facility] Comment on above: Reported eGFR is based on the CKD-EPI 2020 equation that does not use a race coefficient. Glucose [Mass/Vol] 120 mg/dL High 65 - 99 mg/dL [facility] Potassium [Moles/Vol] 5.3 mmol/L High 3.5 - 5.0 mmol/L [facility] Protein [Mass/Vol] 5.4 g/dL Low 6.0 - 8.0 g/dL [facility] Sodium [Moles/Vol] 137 mmol/L 134 - 146 mmol/L [facility] Urea nitrogen [Mass/Vol] 98 mg/dL High 5 - 27 mg/dL [facility] Glucose Glucometer (BldC) [M ass/Vol]on 10-23-2024 Glucose [Mass/Vol] 132 mg/dL High 65 - 99 mg/dL [facility] Interpretation and review of laboratory results Abnormal [facility] Glucose [Mass/Vol] 132 mg/dL High 65-99 [facility] HGB AND HCTon 10-23-2024 Hematocrit (Bld) [Volume fraction] 20.2 % Low 39-49 [facility] Comment on above: Performed By: #### C KERRY, PINR, 42901-5, CMP #### [facility] ([id number]) [address] [place] [address], [place] [address] Hemoglobin (Bld) [Mass/Vol] 6.7 g/dL Critically low 13.0-17.0 [facility] Comment on above: Performed By: #### C KERRY PINR, 30534-8, CMP #### [facility] ([id number]) [address] [place] [address] 83778 Hemoglobin and hematocrit, b loodon 10-23-2024 Hematocrit (Bld) [Volume fraction] 20.2 % Low 39 - 49 % [facility] Hemoglobin (Bld) [Mass/Vol] 6.7 g/dL Critically low 13.0 - 17.0 g/dL [facility] Interpretation and review of laboratory results Abnormal [facility] Hemoglobin.gastrointestinal Ql (Stl)on 10-23-2024 Interpretation and review of laboratory results Abnormal [facility] Laboratory - Chemistry and C hemistry - challengeon 10-23-2024 Hemoglobin.gastroin testinal Ql (Stl) Positive Abnormal NEG [facility] Comment on above: Performed By: #### C KLARISSA PAYNER, 67504-7, CMP #### [facility] ([id number]) [address] [place] [address] 62250 MAGNESIUMon 10-23-2024 Magnesium [Mass/Vol] 1.7 mg/dL Low 1.8-2.6 [facility] Comment on above: Performed By: #### [place], 614[address]-3, CBCA #### [facility] ([id number]) [address] [place] [address] 80616 Magnesiumon 10-23-2024 Magnesium [Mass/Vol] 1.7 mg/dL Low 1.8 - 2.6 mg/dL [facility] No Panel Informationon 10-23 Interpretation and review of laboratory results Abnormal [facility] POTASSIUMon 10-23-2024 Potassium [Moles/Vol] 4.9 mmol/L Normal 3.5-5.0 [facility] Comment on above: Performed By: #### C KERRY PINR, 02803-2, CMP #### [facility] ([id number]) [address] [place] [address] 33840 Potassiumon 10-23-2024 Potassium [Moles/Vol] 4.9 mmol/L 3.5 - 5.0 mmol/L [facility] Potassium [Moles/Vol]on 10-04 [facility] Splint Applicationon 024 Lamont Delcid DO 10/23/2024 11:38 AM Splint Application Date/Time: 10/23/2024 11:36 AM Performed by: Lamont Delcid DO Authorized by: Lamont Delcid DO Consent: Consent obtained: Verbal Consent given by: Patient Risks, benefits, and alternatives were discussed: yes Risks discussed: Discoloration, numbness, pain and swelling Alternatives discussed: No treatment and alternative treatment [facility] protocol: Procedure explained and questions answered to patient or proxy's satisfaction: yes Relevant documents present and verified: yes Test results available: yes Imaging studies available: yes Required blood products, implants, devices, and special equipment available: yes Site/side marked: yes Immediately prior to procedure a time out was called: yes Patient identity confirmed: Verbally with patient and arm band Pre-procedure details: Pre-procedure CMS: pt is quadriplegic with permanent paralysis and sensory deficit. Procedure details: Location: Leg Leg location: L upper leg Splint type: Knee immobilizer Supplies: Elastic bandage Attestation: Splint applied and adjusted personally by me Post-procedure details: Post-procedure CMS: Patient vascular is intact distally neurologic is stable and again severely diminished to absent because of the quadriplegia. Distal perfusion: unchanged Procedure completion: Tolerated Post-procedure imaging: not applicable [facility] 36on 10-22-2024 36 Call to . They d idn't go to ER yet but is taking him soon . Will likely go to [place] [facility] as Gretchen seems to be afraid to care for him because he is complicated . Asked if she sees any active bleeding and she denies but states he hasn't thrown up any blood like the last time [facility] now so that dosen't occur again. She states rhey will leave in a few minutes. [facility] if [facility] had addressed pt's low HGB. Per notes it appears Jamilah was called and directed pt to ER. Did not go to [facility] but labs were drawn in [place] so he may have gone there. Will follow up with pt/. Normal [facility] ABO Rh Repeaton 10-22-2024 ABO O [facility] Rh Nom (Bld) Positive [facility] APTTon 10-22-2024 aPTT Coag (PPP) [Time] 35 s [facility] Comment on above: NEW REFERENCE RANGE Antibody IDon 10-22-2024 Antibody ID No new antibodies [facility] Comment on above: patient has anti-E [facility] CBC AND AUTO DIFFon 10-22-20 ABSOLUTE BASOPHIL 0.0 X10E9/L Normal 0.0-0.2 [facility] Comment on above: Performed By: #### C KLARISSA PAYNER, 78898-3, CMP #### [facility] ([id number]) [address] [place] [address] 99724 ABSOLUTE NEUTROPHIL 6.4 X10E9/L Normal 1.5-6.6 [facility] Comment on above: Performed By: #### Belle PAYNE PINR, 57126-9, CMP #### [facility] ([id number]) [address] [place] [address] 44032 Basophils/100 WBC (Bld) 0.6 % Normal [facility] Comment on above: Performed By: #### Belle PAYNE PINR, 76576-6, CMP #### [facility] ([id number]) [address] [place] [address] 94864 Eosinophils (Bld) [#/Vol] 0.1 10*3/uL Normal 0.0-0.4 [facility] Comment on above: Performed By: #### Belle PAYNE PINR, 81839-0, CMP #### [facility] ([id number]) [address] [place] [address] 67744 Eosinophils/100 WBC (Bld) 0.8 % Normal [facility] Comment on above: Performed By: #### C KLARISSA PAYNER, 24883-2, CMP #### [facility] ([id number]) [address] [place] [address] 50867 Erythrocyte distribution width (RBC) [Ratio] 18.1 % High 11.5-15.0 [facility] Comment on above: Performed By: #### C KERRY PINR, 89955-8, CMP #### [facility] ([id number]) [address] [place] [address] 81620 Hematocrit (Bld) [Volume fraction] 21.9 % Low 39-49 [facility] Comment on above: Performed By: #### KLARISSA Odonnell BCAR, 78971-7, CMP #### [facility] ([id number]) [address] [place] [address] 88331 Hemoglobin (Bld) [Mass/Vol] 7.1 g/dL Low 13.0-17.0 [facility] Comment on above: Performed By: #### C KLARISSA PAYNER, 69920-9, CMP #### [facility] ([id number]) [address] [place] [address] 59413 Lymphocytes (Bld) [#/Vol] 0.8 10*3/uL Low 1.0-3.5 [facility] Comment on above: Performed By: #### Belle PAYNE PINR, 06217-8, CMP #### [facility] ([id number]) [address] [place] [address] 19208 Lymphocytes/100 WBC (Bld) 9.6 % Normal [facility] Comment on above: Performed By: #### Belle PAYNE PINR, 59202-6, CMP #### [facility] ([id number]) [address] [place] [address] 08810 MCH (RBC) [Entitic mass] 28.9 pg Normal 27-34 [facility] Comment on above: Performed By: #### Belle PAYNE PINR, 07665-7, CMP #### [facility] ([id number]) [address] [place] [address] 43572 MCHC (RBC) [Mass/Vol] 32.3 g/dL Normal 32-36 [facility] Comment on above: Performed By: #### Belle PAYNE PINR, 69840-2, CMP #### [facility] ([id number]) [address] [place] [address] 20006 MCV (RBC) [Entitic vol] 90 fL Normal 80-100 [facility] Comment on above: Performed By: #### Belle PAYNE PINR, 24365-1, CMP #### [facility] ([id number]) [address] [place] [address] 25964 Monocytes (Bld) [#/Vol] 0.5 10*3/uL Normal 0-0.9 [facility] Comment on above: Performed By: #### Belle PAYNE, PINR, 84061-7, CMP #### [facility] ([id number]) [address] [place] [address] 47687 Monocytes/100 WBC (Bld) 7.0 % Normal [facility] Comment on above: Performed By: #### Belle PAYNE PINR, 45269-9, CMP #### [facility] ([id number]) [address] [place] [address] 18088 Neutrophils/100 WBC (Bld) 82.0 % Normal [facility] Comment on above: Performed By: #### Belle PAYNE, PINR, 34782-3, CMP #### [facility] ([id number]) [address] [place] [address] 30111 Platelet mean volume (Bld) [Entitic vol] 7.9 fL Normal 7-12 [facility] Comment on above: Performed By: #### C BCA, PINR, 94415-7, CMP #### [facility] ([id number]) [address] [place] [address] 81145 Platelets (Bld) [#/Vol] 141 10*3/uL Low 150-450 [facility] Comment on above: Performed By: #### Belle PAYNE, PINR, 35338-3, CMP #### [facility] ([id number]) [address] [place] [address] 08120 RBC COUNT 2.45 X10E12/L Low 4.10-5.70 [facility] Comment on above: Performed By: #### Belle PAYNE, PINR, 52268-2, CMP #### [facility] ([id number]) [address] [place] [address] 03715 WBC (Bld) [#/Vol] 7.8 10*3/uL Normal 4.0-11.0 [facility] Comment on above: Performed By: #### Belle PYANE, PINR, 58125-3, CMP #### [facility] ([id number]) [address] [place] [address] 39783 CBC auto differentialon 10-04 Basophils (Bld) [#/Vol] 0 10*3/uL [facility] Basophils/100 WBC (Bld) 0.6 % [facility] Eosinophils (Bld) [#/Vol] 0.1 10*3/uL [facility] Eosinophils/100 WBC (Bld) 0.8 % [facility] Erythrocyte distribution width (RBC) [Ratio] 18.1 % High 11.5 - 15.0 % [facility] Hematocrit (Bld) [Volume fraction] 21.9 % Low 39 - 49 % [facility] Hemoglobin (Bld) [Mass/Vol] 7.1 g/dL Low 13.0 - 17.0 g/dL [facility] Interpretation and review of laboratory results Abnormal [facility] Lymphocytes (Bld) [#/Vol] 0.8 10*3/uL Low [facility] Lymphocytes/100 WBC (Bld) 9.6 % [facility] MCH (RBC) [Entitic mass] 28.9 pg 27 - 34 pg [facility] MCHC (RBC) [Mass/Vol] 32.3 g/dL 32 - 36 g/dL [facility] MCV (RBC) [Entitic vol] 90 fL 80 - 100 fL [facility] Monocytes (Bld) [#/Vol] 0.5 10*3/uL [facility] Monocytes/100 WBC (Bld) 7 % [facility] Neutrophils (Bld) [#/Vol] 6.4 10*3/uL [facility] Neutrophils/100 WBC (Bld) 82 % [facility] Platelet mean volume (Bld) [Entitic vol] 7.9 fL 7 - 12 fL [facility] Platelets (Bld) [#/Vol] 141 10*3/uL Low [facility] RBC (Bld) [#/Vol] 2.45 10*6/uL Low [facility] WBC corrected for nucl RBC Auto (Bld) [#/Vol] 7.8 [facility] COMPREHENSIVE METABOLIC PANE Jonathan 10-22-2024 Albumin [Mass/Vol] 2.3 g/dL Low 3.2-5.3 [facility] Comment on above: Performed By: #### C BCA, PINR, 32552-6, CMP #### [facility] ([id number]) [address] [place] [address] 50273 ALP [Catalytic activity/Vol] 69 U/L Normal 39-130 [facility] Comment on above: Performed By: #### C BCA, PINR, 15241-8, CMP #### [facility] ([id number]) [address] [place] [address] 03425 ALT [Catalytic activity/Vol] 14 U/L Normal 0-40 [facility] Comment on above: Performed By: #### C BCA, PINR, 08174-6, CMP #### [facility] ([id number]) [address] [place] [address] 76909 Anion gap [Moles/Vol] 13 mmol/L Normal 5-15 [facility] Comment on above: Performed By: #### C BCA, PINR, 44651-3, CMP #### [facility] ([id number]) [address] [place] [address] 09341 AST [Catalytic activity/Vol] 20 U/L Normal 0-41 [facility] Comment on above: Performed By: #### C BCA, PINR, 71743-8, CMP #### [facility] ([id number]) [address] [place] [address] 36223 Bilirubin [Mass/Vol] 0.6 mg/dL Normal 0.3-1.2 [facility] Comment on above: Performed By: #### C BCA, PINR, 00511-6, CMP #### [facility] ([id number]) [address] [place] [address] [id number] Calcium [Mass/Vol] 7.8 mg/dL Low 8.5-10.5 [facility] Comment on above: Performed By: #### C BCA, PINR, 84057-2, CMP #### [facility] ([id number]) [address] [place] [address] 11800 Chloride [Moles/Vol] 105 mmol/L Normal 98-109 [facility] Comment on above: Performed By: #### C BCA, PINR, 30347-0, CMP #### [facility] ([id number]) [address] [place] [address] [id number] CO2 [Moles/Vol] 18 mmol/L Low 22-32 [facility] Comment on above: Performed By: #### C BCA, PINR, 05072-7, CMP #### [facility] [facility] ([id number]) [address] [place] [address] Creatinine [Mass/Vol] 4.31 mg/dL High 0.70-1.20 [facility] Comment on above: Result Comment: METH OD TRACEABLE TO IDMS STANDARD Performed By: #### C GRAHAM PAYNE, 96453-8, CMP #### [facility] ([id number]) [address] [place] [address] GFR/1.73 sq M.predicted among non-blacks MDRD (S/P/Bld) [Vol rate/Area] 14 mL/min/{1.73_m2} Low >59 [facility] Comment on above: Result Comment: Reported eGFR is based on the CKD-EPI 2020 equation that does not use a race coefficient. Performed By: #### C GRAHAM PAYNE, 47790-7, CMP #### [facility] ([id number]) [address] [place] [address] Glucose [Mass/Vol] 146 mg/dL High 65-99 [facility] Comment on above: Performed By: #### C GRAHAM PAYNE, 45854-0, CMP #### [facility] ([id number]) [address] [place] [address] 103[address] Potassium [Moles/Vol] 5.3 mmol/L High 3.5-5.0 [facility] Comment on above: Performed By: #### C GRAHAM PAYNE, 75137-1, CMP #### [facility] ([id number]) [address] [place] [address] Protein [Mass/Vol] 5.9 g/dL Low 6.0-8.0 [facility] Comment on above: Performed By: #### C KERRY PINR, 99710-5, CMP #### [facility] ([id number]) [address] [place] [address] 64189 Sodium [Moles/Vol] 136 mmol/L Normal 134-146 [facility] Comment on above: Performed By: #### C KERRY PINR, 60664-5, CMP #### [facility] ([id number]) [address] [place] [address] Urea nitrogen [Mass/Vol] 100 mg/dL High 5-27 [facility] Comment on above: Performed By: #### C BCA, PINR, 96064-1, CMP #### [facility] ([id number]) [address] [place] [address] Comprehensive metabolic pane [facility] 10-22-2024 Albumin [Mass/Vol] 2.3 g/dL Low 3.2 - 5.3 g/dL [facility] ALP [Catalytic activity/Vol] 69 U/L 39 - 130 U/L [facility] ALT No additional P-5'-P [Catalytic activity/Vol] 14 U/L 0 - 40 U/L [facility] Anion gap [Moles/Vol] 13 mmol/L 5 - 15 mmol/L [facility] AST [Catalytic activity/Vol] 20 U/L 0 - 41 U/L [facility] Bilirubin [Mass/Vol] 0.6 mg/dL 0.3 - 1.2 mg/dL [facility] Calcium [Mass/Vol] 7.8 mg/dL Low 8.5 - 10. 5 mg/dL [facility] Chloride [Moles/Vol] 105 mmol/L 98 - 109 mmol/L [facility] CO2 [Moles/Vol] 18 mmol/L Low 22 - 32 mmol/L [facility] Creatinine [Mass/Vol] 4.31 mg/dL High 0.70 - 1.20 mg/dL [facility] Comment on above: METHOD TRACEABLE TO IDAK STANDARD eGFR (CKD-EPI)non-race dependent 14 Low - PINF [facility] Comment on above: Reported eGFR is based on the CKD-EPI 2020 equation that does not use a race coefficient. Glucose [Mass/Vol] 146 mg/dL High 65 - 99 mg/dL [facility] Interpretation and review of laboratory results Abnormal [facility] Potassium [Moles/Vol] 5.3 mmol/L High 3.5 - 5.0 mmol/L [facility] Protein [Mass/Vol] 5.9 g/dL Low 6.0 - 8.0 g/dL [facility] Sodium [Moles/Vol] 136 mmol/L 134 - 146 mmol/L [facility] Urea nitrogen [Mass/Vol] 100 mg/dL High 5 - 27 mg/dL [facility] No Panel Informationon 10-22 [facility] PROTIME AND INRon 10-22-2024 INR Coag (PPP) [Relative time] 1.6 {INR} High 0.8-1.1 [facility] Comment on above: Performed By: #### C BCA, PINR, 08460-7, CMP #### [facility] ([id number]) [address] [place] [address] PT Coag (PPP) [Time] 17.8 s High 9.8-13.2 [facility] Comment on above: Result Comment: NEW REFERENCE RANGE Performed By: #### C BCA, PINR, 67206-2, CMP #### [facility] ([id number]) [address] [place] [address] Protime & INRon 10-22-2024 INR Coag (PPP) [Relative time] 1.6 {INR} High [facility] Interpretation and review of laboratory results Abnormal [facility] PT Coag (PPP) [Time] 17.8 s High [facility] Comment on above: NEW REFERENCE RANGE Type and screen(includes ind irect valerie)on 10-22-2024 ABO O [facility] Rh Nom (Bld) Positive [facility] XR FEMUR LT 2+ VIEWSon 10-22 XR FEMUR LT 2+ VIEWS XR FEMUR LT 2+ VIEWS XR FEMUR LT 2+ VIEWS Clinical history:trauma and deformity acute leg pain. Comparison: None. Impression: Comminuted impacted mildly angulated and displaced distal femoral fracture. Diffuse osteopenia and demineralization. No definitive proximal injury. The proximal femur and hip are not fully visualized on the provided imaging. Finalized by Morgan Steele MD on 10/22/2024 3:03 PM Normal [facility] XR Femur - left 2 Viewson XR FEMUR LT 2+ VIEWS Clinical history:trauma and deformity acute leg pain. Comparison: None. Impression: Comminuted impacted mildly angulated and displaced distal femoral fracture. Diffuse osteopenia and demineralization. No definitive proximal injury. The proximal femur and hip are not fully visualized on the provided imaging. Finalized by Morgan Steele MD on 10/22/2024 3:03 PM [facility] Morgan Steele MD - 10/22/2024 XR FEMUR LT 2+ VIEWS Clinical history:trauma and deformity acute leg pain. Comparison: None. Impression: Comminuted impacted mildly angulated and displaced distal femoral fracture. Diffuse osteopenia and demineralization. No definitive proximal injury. The proximal femur and hip are not fully visualized on the provided imaging. Finalized by Morgan Steele MD on 10/22/2024 3:03 PM [facility] Radiology Study observation (narrative) [facility] XR Femur - left 2 ViewsOrder ed By: Morgan Steele on 10-22-2024 [facility] Work Phone: XR KNEE LT 3 VWSon 4 XR KNEE LT 3 VWS XR KNEE LT 3 VWS History: Pain/hematuria. Chronic renal disease.. Quadriplegia Study: Left Knee Three view study. Comparison: None Impression: Comminuted distal femoral fracture is appreciated. Severe osteoporosis is noted. More chronic appearing deformity in the proximal tibia. Follow-up with orthopedics is advised.. Finalized by Lila Lozano MD on 10/22/2024 3:02 PM Normal [facility] XR Knee - left 3 Viewson History: Pain/hematu sergio. Chronic renal disease.. Quadriplegia Study: Left Knee Three view study. Comparison: None Impression: Comminuted distal femoral fracture is appreciated. Severe osteoporosis is noted. More chronic appearing deformity in the proximal tibia. Follow-up with orthopedics is advised.. Finalized by Lila Lozano MD on 10/22/2024 3:02 PM [facility] Lila Lozano MD - 10/22/2024 History: Pain/hematuria. Chronic renal disease.. Quadriplegia Study: Left Knee Three view study. Comparison: None Impression: Comminuted distal femoral fracture is appreciated. Severe osteoporosis is noted. More chronic appearing deformity in the proximal tibia. Follow-up with orthopedics is advised.. Finalized by Lila Lozano MD on 10/22/2024 3:02 PM [facility] Study observation (narrative) [facility] XR Knee - left 3 ViewsOrdere d By: Lila Lozano on 10-22-2024 [facility] Work Phone: aPTT Coag (PPP) [Time]on aPTT Coag (Bld) [Time] 35 s Normal 26-37 [facility] Comment on above: Result Comment: NEW REFERENCE RANGE Performed By: #### C BCA, PINR, 55981-7, CMP #### [facility] ([id number]) [address] [place] [address], [place] [address] Documentationon 10-21-2024 Documentation [id number] Dino Price F 1960 M Date Provider Department Center 10/21/2024 161-JAMILAH MANSFIELD [facility] INF [facility] No family history on file Normal [facility] 36on 10-20-2024 36 Left message for pt to follow up and schedule appointment, Also labs will be drawn for this week on 10.22 as pts availability. Normal [facility] 36on 10-19-2024 36 Opat received. Pio dotsoned orders with Damaris at [facility]. Pt's labs will be drawn 10/20. Called to pt's home for an appt but will call back to schedule. Normal [facility] BASIC METABOLIC PANLon 10-14 Anion gap [Moles/Vol] 11 mmol/L Normal 5-15 [facility] Comment on above: Performed By: #### C BCA, BMP, , 2776-11 ####[facility] ([id number])[address], [address] [place] [address] Calcium [Mass/Vol] 8.0 mg/dL Low 8.5-10.5 [facility] Comment on above: Performed By: #### C BCA, BMP, , 2776-11 ####[facility] ([id number])[address], [address] [place] [address]272 Chloride [Moles/Vol] 112 mmol/L High 98-109 [facility] Comment on above: Performed By: #### C BCA, [facility], , 2776-11 ####[facility] ([id number])[address] [address] [place] [address] CO2 [Moles/Vol] 21 mmol/L Low 22-32 [facility] Comment on above: Performed By: #### C BCA, [facility], , 2776-11 ####[facility] ([id number])[address] [address] Creatinine [Mass/Vol] 4.38 mg/dL High 0.60-1.30 [facility] Comment on above: Result Comment: METH OD TRACEABLE TO IDMS STANDARD Performed By: #### C BCA, [facility], , 2776-11 ####[facility] ([id number])[address] [address] GFR/1.73 sq M.predicted among non-blacks MDRD (S/P/Bld) [Vol rate/Area] 14 mL/min/{1.73_m2} Low >59 [facility] Comment on above: Result Comment: Repo rted eGFR is based on theCKD-EPI 2020 equation that doesnot use a race coefficient. Performed By: #### C BCA, BMP, , 2776-11 ####[facility] ([id number])[address], [place] [address] Glucose [Mass/Vol] 81 mg/dL Normal 65-99 [facility] Comment on above: Performed By: #### C KERRY, BMP, , 2776-11 ####[facility] ([id number])[address], [address] [address] Potassium [Moles/Vol] 3.7 mmol/L Normal 3.5-5.0 [facility] Comment on above: Performed By: #### C KERRY, BMP, , 2776-11 ####[facility] ([id number])[address], [address], [place] [address] Sodium [Moles/Vol] 144 mmol/L Normal 134-146 [facility] Comment on above: Performed By: #### C KERRY, BMP, , 2776-11 ####[facility] ([id number])[address], [address] [address] Urea nitrogen [Mass/Vol] 71 mg/dL High 5-27 [facility] Comment on above: Performed By: #### C KERRY, BMP, , 2776-11 ####[facility] ([id number])[address], [address] [place] [address]6049 CBC AND AUTO DIFFon 12-12-20 24 ABSOLUTE BASOPHIL 0.0 X10E9/L Normal 0.0-0.2 [facility] Comment on above: Performed By: #### C KERRY, BMP, , 2776-11 ####[facility] ([id number])[address], [place] [address] ABSOLUTE NEUTROPHIL 4.5 X10E9/L Normal 1.5-6.6 [facility] Comment on above: Performed By: #### C KERRY, BMP, , 2776-11 ####[facility] ([id number])[address] [place] [address] Basophils/100 WBC (Bld) 0.8 % Normal [facility] Comment on above: Performed By: #### C BCA, BMP, , 2776-11 ####[facility] ([id number])[address] [place] [address] Eosinophils (Bld) [#/Vol] 0.1 10*3/uL Normal 0.0-0.4 [facility] Comment on above: Performed By: #### C KERRY, BMP, , 2776-11 ####[facility] ([id number])[address] [place] [place] [address] Eosinophils/100 WBC (Bld) 2.4 % Normal [facility] Comment on above: Performed By: #### C BCA, BMP, , 2776-11 ####[facility] ([id number])[address] [address], [place] [address] Erythrocyte distribution width (RBC) [Ratio] 17.7 % High 11.5-15.0 [facility] Comment on above: Performed By: #### C KERRY, BMP, , 2776-11 ####[facility] ([id number])[address] [address] [place] [place] [address] Hematocrit (Bld) [Volume fraction] 22.4 % Low 39-49 [facility] Comment on above: Performed By: #### C BCA, BMP, , 2776-11 ####[facility] ([id number])[address] [address] [place] [place] [address] Hemoglobin (Bld) [Mass/Vol] 7.2 g/dL Low 13.0-17.0 [facility] Comment on above: Performed By: #### C BCA, BMP, , 2776-11 ####[facility] ([id number])[address] [address] [place] [address] Lymphocytes (Bld) [#/Vol] 0.8 10*3/uL Low 1.0-3.5 [facility] Comment on above: Performed By: #### Belle PAYNE, [facility], , 2776-11 ####[facility] ([id number])[address] [address] Lymphocytes/100 WBC (Bld) 13.2 % Normal [facility] Comment on above: Performed By: #### Belle PAYNE, [facility], , 2776-11 ####[facility] ([id number])[address] [address] MCH (RBC) [Entitic mass] 28.8 pg Normal 27-34 [facility] Comment on above: Performed By: #### Belle PAYNE [facility], , 2776-11 ####[facility] ([id number])[address] [address] MCHC (RBC) [Mass/Vol] 31.9 g/dL Low 32-36 [facility] Comment on above: Performed By: #### DARIANA Odonnell BCA, , 2776-11 ####[facility] ([id number])[address] [address] MCV (RBC) [Entitic vol] 90 fL Normal 80-100 [facility] Comment on above: Performed By: #### Belle PAYNE, [facility], , 2776-11 ####[facility] ([id number])[address] [address] Monocytes (Bld) [#/Vol] 0.6 10*3/uL Normal 0-0.9 [facility] Comment on above: Performed By: #### C KERRY, BMP, , 2776-11 ####[facility] ([id number])[address] [place] [place] [address] Monocytes/100 WBC (Bld) 9.2 % Normal [facility] Comment on above: Performed By: #### C BCA, BMP, , 2776-11 ####[facility] ([id number])[address] [address] Neutrophils/100 WBC (Bld) 74.4 % Normal [facility] Comment on above: Performed By: #### C BCA, BMP, , 2776-11 ####[facility] ([id number])[address] [place] [place] [address] Platelet mean volume (Bld) [Entitic vol] 7.7 fL Normal 7-12 [facility] Comment on above: Performed By: #### Belle PAYNE, BMP, , 2776-11 ####[facility] ([id number])[address] [place] [address] Platelets (Bld) [#/Vol] 135 10*3/uL Low 150-450 [facility] Comment on above: Performed By: #### Belle PAYNE, BMP, , 2776-11 ####[facility] ([id number])[address] [place] [place] [address] RBC COUNT 2.49 X10E12/L Low 4.10-5.70 [facility] Comment on above: Performed By: #### Belle BCA, BMP, , 2776-11 ####[facility] ([id number])[address] [place] [address] WBC (Bld) [#/Vol] 6.1 10*3/uL Normal 4.0-11.0 [facility] Comment on above: Performed By: #### C BCA, BMP, , 2776-11 ####[facility] ([id number])[address] [place] [place] [address] Calcium.ionized (Bld) [Mass/ Vol]on 10-14-2024 IONIZED CALCIUM 4.7 mg/dL Normal 4.5-5.3 [facility] Comment on above: Performed By: #### 3 8230-9 ####[facility] ([id number])[address] [place] [place] [address] MAGNESIUMon 10-14-2024 Magnesium [Mass/Vol] 2.5 mg/dL Normal 1.8-2.6 [facility] Comment on above: Performed By: #### C BCA, BMP, , 2776-11 ####[facility] ([id number])[address], [place] [address] PHOSPHORUSon 10-14-2024 Phosphate [Mass/Vol] 7.1 mg/dL High 2.4-4.9 [facility] Comment on above: Performed By: #### C BCA, BMP, , 2776-11 ####[facility] ([id number])[address], [place] [address] BASIC METABOLIC PANLon 10-13 Anion gap [Moles/Vol] 13 mmol/L Normal 5-15 [facility] Comment on above: Performed By: #### C BCA, BMP, , 2776-11 ####[facility] ([id number])[address], [place] [address] Calcium [Mass/Vol] 8.3 mg/dL Low 8.5-10.5 [facility] Comment on above: Performed By: #### C BCA, BMP, , 2776-11 ####[facility] ([id number])[address] [place] [address] Chloride [Moles/Vol] 109 mmol/L Normal 98-109 [facility] Comment on above: Performed By: #### C KERRY [facility], , 2776-11 ####[facility] ([id number])[address], [place] [address] CO2 [Moles/Vol] 20 mmol/L Low 22-32 [facility] Comment on above: Performed By: #### C ADRIANA PAYNE, , 2776-11 ####[facility] ([id number])[address] [place] [address] Creatinine [Mass/Vol] 4.29 mg/dL High 0.60-1.30 [facility] Comment on above: Result Comment: METH OD TRACEABLE TO IDMS STANDARD Performed By: #### C KERRY [facility], , 2776-11 ####[facility] ([id number])[address] [address] [place] [place] [address] GFR/1.73 sq M.predicted among non-blacks MDRD (S/P/Bld) [Vol rate/Area] 14 mL/min/{1.73_m2} Low >59 [facility] Comment on above: Result Comment: Repo rted eGFR is based on theCKD-EPI 2020 equation that doesnot use a race coefficient. Performed By: #### C ADRIANA PAYNE, , 2776-11 ####[facility] ([id number])[address] [address] [place] [place] [address] Glucose [Mass/Vol] 82 mg/dL Normal 65-99 [facility] Comment on above: Performed By: #### C ADRIANA PAYNE, , 2776-11 ####[facility] ([id number])[address], [address], [place] [address] Potassium [Moles/Vol] 4.1 mmol/L Normal 3.5-5.0 [facility] Comment on above: Performed By: #### C KERRY BMP, , 2776-11 ####[facility] ([id number])[address], [place] [address] Sodium [Moles/Vol] 142 mmol/L Normal 134-146 [facility] Comment on above: Performed By: #### C KERRY, BMP, , 2776-11 ####[facility] ([id number])[address] [address] Urea nitrogen [Mass/Vol] 69 mg/dL High 5-27 [facility] Comment on above: Performed By: #### C KERRY, BMP, , 2776-11 ####[facility] ([id number])[address] [address] CBC AND AUTO DIFFon 10-13-20 24 ABSOLUTE BASOPHIL 0.1 X10E9/L Normal 0.0-0.2 [facility] Comment on above: Performed By: #### Belle PAYNE, BMP, , 2776-11 ####[facility] ([id number])[address] [address] ABSOLUTE NEUTROPHIL 6.3 X10E9/L Normal 1.5-6.6 [facility] Comment on above: Performed By: #### C KERRY, BMP, , 2776-11 ####[facility] ([id number])[address], [address] [place] [address] Basophils/100 WBC (Bld) 0.8 % Normal [facility] Comment on above: Performed By: #### C KERRY, BMP, , 2776-11 ####[facility] ([id number])[address], [address] [place] [address] Eosinophils (Bld) [#/Vol] 0.2 10*3/uL Normal 0.0-0.4 [facility] Comment on above: Performed By: #### C ADRIANA PAYNE, , 2776-11 ####[facility] ([id number])[address] [address] Eosinophils/100 WBC (Bld) 2.9 % Normal [facility] Comment on above: Performed By: #### C KERRY, ADRIANA, , 2776-11 ####[facility] ([id number])[address], [address] [address] Erythrocyte distribution width (RBC) [Ratio] 17.9 % High 11.5-15.0 [facility] Comment on above: Performed By: #### C ADRIANA PAYNE, , 2776-11 ####[facility] ([id number])[address] [address] [place] [address] Hematocrit (Bld) [Volume fraction] 24.7 % Low 39-49 [facility] Comment on above: Performed By: #### C KERRY, ADRIANA, , 2776-11 ####[facility] ([id number])[address] [address] Hemoglobin (Bld) [Mass/Vol] 7.8 g/dL Low 13.0-17.0 [facility] Comment on above: Performed By: #### C KERRY, BMP, , 2776-11 ####[facility] ([id number])[address] [address] Lymphocytes (Bld) [#/Vol] 0.9 10*3/uL Low 1.0-3.5 [facility] Comment on above: Performed By: #### C KERRY, BMP, , 2776-11 ####[facility] ([id number])[address] [address] Lymphocytes/100 WBC (Bld) 11.2 % Normal [facility] Comment on above: Performed By: #### C KERRY, BMP, , 2776-11 ####[facility] ([id number])[address] [address] MCH (RBC) [Entitic mass] 28.7 pg Normal 27-34 [facility] Comment on above: Performed By: #### C KERRY, BMP, , 2776-11 ####[facility] ([id number])[address] [address] MCHC (RBC) [Mass/Vol] 31.7 g/dL Low 32-36 [facility] Comment on above: Performed By: #### C BCA, BMP, , 2776-11 ####[facility] ([id number])[address] [place] [address] MCV (RBC) [Entitic vol] 90 fL Normal 80-100 [facility] Comment on above: Performed By: #### Belle BCA, BMP, , 2776-11 ####[facility] ([id number])[address], [address] [place] [address] Monocytes (Bld) [#/Vol] 0.8 10*3/uL Normal 0-0.9 [facility] Comment on above: Performed By: #### C BCA, BMP, , 2776-11 ####[facility] ([id number])[address] [address] Monocytes/100 WBC (Bld) 9.8 % Normal [facility] Comment on above: Performed By: #### Belle BCA, BMP, , 2776-11 ####[facility] ([id number])[address] [address] Neutrophils/100 WBC (Bld) 75.3 % Normal [facility] Comment on above: Performed By: #### C KERRY, BMP, , 2776-11 ####[facility] ([id number])[address] [address] Platelet mean volume (Bld) [Entitic vol] 7.8 fL Normal 7-12 [facility] Comment on above: Performed By: #### C KERRY, BMP, , 2776-11 ####[facility] ([id number])[address], [address] [place] [address] Platelets (Bld) [#/Vol] 161 10*3/uL Normal 150-450 [facility] Comment on above: Performed By: #### C KERRY, BMP, , 2776-11 ####[facility] ([id number])[address] [address] RBC COUNT 2.73 X10E12/L Low 4.10-5.70 [facility] Comment on above: Performed By: #### C KERRY, BMP, , 2776-11 ####[facility] ([id number])[address], [address] [place] [address] WBC (Bld) [#/Vol] 8.3 10*3/uL Normal 4.0-11.0 [facility] Comment on above: Performed By: #### C KERRY, BMP, , 2776-11 ####[facility] ([id number])[address] [address] IR [place] DIAL/CENT LINE > 5 YRSon 10-13-2024 IR [place] DIAL/CENT LINE > 5 YRS Normal [facility] MAGNESIUMon 10-13-2024 Magnesium [Mass/Vol] 2.5 mg/dL Normal 1.8-2.6 [facility] Comment on above: Performed By: #### 1 9123-9 ####[facility] ([id number])[address], [place] [address] Magnesium [Mass/Vol] 1.6 mg/dL Low 1.8-2.6 [facility] Comment on above: Performed By: #### C BCA, BMP, , 2776-11 ####[facility] ([id number])[address], [address], [place] [address] PHOSPHORUSon 10-13-2024 Phosphate [Mass/Vol] 6.7 mg/dL High 2.4-4.9 [facility] Comment on above: Performed By: #### C BCA, BMP, , 2776-11 ####[facility] ([id number])[address], [address] [place] [address] BASIC METABOLIC PANLon 10-12 Anion gap [Moles/Vol] 15 mmol/L Normal 5-15 [facility] Comment on above: Performed By: #### C BCA, BMP, , 2776-11 ####[facility] ([id number])[address], [place] [address] Calcium [Mass/Vol] 8.3 mg/dL Low 8.5-10.5 [facility] Comment on above: Performed By: #### C BCA, BMP, , 2776-11 ####[facility] ([id number])[address] [place] [address] Chloride [Moles/Vol] 114 mmol/L High 98-109 [facility] Comment on above: Performed By: #### C BCA, BMP, , 2776-11 ####[facility] ([id number])[address] [address], [place] [address] CO2 [Moles/Vol] 19 mmol/L Low 22-32 [facility] Comment on above: Performed By: #### C ADRIANA PAYNE, , 2776-11 ####[facility] ([id number])[address] [address], [place] [address] Creatinine [Mass/Vol] 4.72 mg/dL High 0.60-1.30 [facility] Comment on above: Result Comment: METH OD TRACEABLE TO IDMS STANDARD Performed By: #### C ADRIANA PAYNE, , 2776-11 ####[facility] ([id number])[address] [address], [place] [address] GFR/1.73 sq M.predicted among non-blacks MDRD (S/P/Bld) [Vol rate/Area] 13 mL/min/{1.73_m2} Low >59 [facility] Comment on above: Result Comment: Repo rted eGFR is based on theCKD-EPI 2020 equation that doesnot use a race coefficient. Performed By: #### C KERRY [facility], , 2776-11 ####[facility] ([id number])[address] [address], [place] [address] Glucose [Mass/Vol] 96 mg/dL Normal 65-99 [facility] Comment on above: Performed By: #### C ADRIANA PAYNE, , 2776-11 ####[facility] ([id number])[address] [address], [place] [address] Potassium [Moles/Vol] 3.8 mmol/L Normal 3.5-5.0 [facility] Comment on above: Performed By: #### C ADRIANA PAYNE, , 2776-11 ####[facility] ([id number])[address] [address], [place] [address] Sodium [Moles/Vol] 148 mmol/L High 134-146 [facility] Comment on above: Performed By: #### C ADRIANA PAYNE, , 2776-11 ####[facility] ([id number])[address] [address] [address] Urea nitrogen [Mass/Vol] 70 mg/dL High 5-27 [facility] Comment on above: Performed By: #### C KERRY BMP, , 2776-11 ####[facility] ([id number])[address], [address] [address] CBC AND AUTO DIFFon 10-12-20 24 ABSOLUTE BASOPHIL 0.1 X10E9/L Normal 0.0-0.2 [facility] Comment on above: Performed By: #### C ADRIANA PAYNE, , 2776-11 ####[facility] ([id number])[address] [address] [address] ABSOLUTE NEUTROPHIL 5.9 X10E9/L Normal 1.5-6.6 [facility] Comment on above: Performed By: #### Belle PAYNE BMP, , 2776-11 ####[facility] ([id number])[address] [address] Basophils/100 WBC (Bld) 1.2 % Normal [facility] Comment on above: Performed By: #### C KERRY BMP, , 2776-11 ####[facility] ([id number])[address] [address] Eosinophils (Bld) [#/Vol] 0.2 10*3/uL Normal 0.0-0.4 [facility] Comment on above: Performed By: #### C KERRY, BMP, , 2776-11 ####[facility] ([id number])[address] [address] Eosinophils/100 WBC (Bld) 2.8 % Normal [facility] Comment on above: Performed By: #### C KERRY, BMP, , 2776-11 ####[facility] ([id number])[address] [address] Erythrocyte distribution width (RBC) [Ratio] 18.1 % High 11.5-15.0 [facility] Comment on above: Performed By: #### C KERRY, BMP, , 2776-11 ####[facility] ([id number])[address], [address] [address] Hematocrit (Bld) [Volume fraction] 25.8 % Low 39-49 [facility] Comment on above: Performed By: #### C KERRY, BMP, , 2776-11 ####[facility] ([id number])[address] [address] [place] [address] Hemoglobin (Bld) [Mass/Vol] 8.0 g/dL Low 13.0-17.0 [facility] Comment on above: Performed By: #### C KERRY, BMP, , 2776-11 ####[facility] ([id number])[address] [address] Lymphocytes (Bld) [#/Vol] 1.3 10*3/uL Normal 1.0-3.5 [facility] Comment on above: Performed By: #### C BCA, BMP, , 2776-11 ####[facility] ([id number])[address] [address] [address] Lymphocytes/100 WBC (Bld) 14.9 % Normal [facility] Comment on above: Performed By: #### Belle PAYNE, BMP, , 2776-11 ####[facility] ([id number])[address] [place] [address] MCH (RBC) [Entitic mass] 28.3 pg Normal 27-34 [facility] Comment on above: Performed By: #### C BCA, BMP, , 2776-11 ####[facility] ([id number])[address] [place] [address] MCHC (RBC) [Mass/Vol] 31.0 g/dL Low 32-36 [facility] Comment on above: Performed By: #### C BCA, BMP, , 2776-11 ####[facility] ([id number])[address] [place] [address] MCV (RBC) [Entitic vol] 91 fL Normal 80-100 [facility] Comment on above: Performed By: #### Belle BCA, BMP, , 2776-11 ####[facility] ([id number])[address], [address], [place] [address] Monocytes (Bld) [#/Vol] 1.1 10*3/uL High 0-0.9 [facility] Comment on above: Performed By: #### C BCA, BMP, , 2776-11 ####[facility] ([id number])[address] [address] [address] Monocytes/100 WBC (Bld) 13.2 % Normal [facility] Comment on above: Performed By: #### C BCA, BMP, , 2776-11 ####[facility] ([id number])[address] [place] [place] [address] Neutrophils/100 WBC (Bld) 67.9 % Normal [facility] Comment on above: Performed By: #### C BCA, BMP, , 2776-11 ####[facility] ([id number])[address], [place] [address] Platelet mean volume (Bld) [Entitic vol] 7.8 fL Normal 7-12 [facility] Comment on above: Performed By: #### C KERRY, ADRIANA, , 2776-11 ####[facility] ([id number])[address] [address] Platelets (Bld) [#/Vol] 172 10*3/uL Normal 150-450 [facility] Comment on above: Performed By: #### C KERRY, ADRIANA, , 2776-11 ####[facility] ([id number])[address], [place] [address] RBC COUNT 2.82 X10E12/L Low 4.10-5.70 [facility] Comment on above: Performed By: #### C ADRIANA PAYNE, , 2776-11 ####[facility] ([id number])[address] [address] WBC (Bld) [#/Vol] 8.7 10*3/uL Normal 4.0-11.0 [facility] Comment on above: Performed By: #### C ADRIANA PAYNE, , 2776-11 ####[facility] ([id number])[address], [place] [address] MAGNESIUMon 10-12-2024 Magnesium [Mass/Vol] 1.8 mg/dL Normal 1.8-2.6 [facility] Comment on above: Performed By: #### C KERRY, BMP, , 2776-11 ####[facility] ([id number])[address], [address], [place] [address] PHOSPHORUSon 10-12-2024 Phosphate [Mass/Vol] 6.0 mg/dL High 2.4-4.9 [facility] Comment on above: Performed By: #### C BCA, BMP, 88045-0, 2776-11 ####[facility] ([id number])[address] [place] [place] [address] CBC AND AUTO DIFFon 10-11-20 24 ABSOLUTE BASOPHIL 0.1 X10E9/L Normal 0.0-0.2 [facility] Comment on above: Performed By: #### C BCA, CMP, , 2776-11, 2157-04 ####[facility] ([id number])[address], [place] [address] ABSOLUTE NEUTROPHIL 6.8 X10E9/L High 1.5-6.6 [facility] Comment on above: Performed By: #### C BCA, CMP, 54593-0, 2776-11, 2157-04 ####[facility] ([id number])[address], [place] [address] Basophils/100 WBC (Bld) 0.8 % Normal [facility] Comment on above: Performed By: #### C BCA, CMP, , 2776-11, 2157-04 ####[facility] ([id number])[address], [place] [address] Eosinophils (Bld) [#/Vol] 0.3 10*3/uL Normal 0.0-0.4 [facility] Comment on above: Performed By: #### C BCA, CMP, 68046-2, 2776-11, 2157-04 ####[facility] ([id number])[address], [place] [address] Eosinophils/100 WBC (Bld) 2.9 % Normal [facility] Comment on above: Performed By: #### C BCA, CMP, 51265-4, 2776-11, 2157-04 ####[facility] ([id number])[address] [address] [place] [address] Erythrocyte distribution width (RBC) [Ratio] 18.1 % High 11.5-15.0 [facility] Comment on above: Performed By: #### C KERRY, CMP, 22304-7, 2776-11, 2157-04 ####[facility] ([id number])[address] [address] [place] [address] Hematocrit (Bld) [Volume fraction] 25.1 % Low 39-49 [facility] Comment on above: Performed By: #### C KERRY, CMP, 82642-1, 2776-11, 2157-04 ####[facility] ([id number])[address] [address] [place] [address] Hemoglobin (Bld) [Mass/Vol] 8.1 g/dL Low 13.0-17.0 [facility] Comment on above: Performed By: #### C BCA, CMP, , 2776-11, 2157-04 ####[facility] ([id number])[address] [address] Lymphocytes (Bld) [#/Vol] 1.2 10*3/uL Normal 1.0-3.5 [facility] Comment on above: Performed By: #### C KERRY, CMP, , 2776-11, 2157-04 ####[facility] ([id number])[address] [address] Lymphocytes/100 WBC (Bld) 12.7 % Normal [facility] Comment on above: Performed By: #### C BCA, CMP, , 2776-11, 2157-04 ####[facility] ([id number])[address] [address] [place] [address] MCH (RBC) [Entitic mass] 28.8 pg Normal 27-34 [facility] Comment on above: Performed By: #### C BCA, CMP, , 2776-11, 2157-04 ####[facility] ([id number])[address] [place] [address] MCHC (RBC) [Mass/Vol] 32.2 g/dL Normal 32-36 [facility] Comment on above: Performed By: #### C BCA, CMP, , 2776-11, 2157-04 ####[facility] ([id number])[address], [place] [address] MCV (RBC) [Entitic vol] 89 fL Normal 80-100 [facility] Comment on above: Performed By: #### C BCA, CMP, , 2776-11, 2157-04 ####[facility] ([id number])[address] [place] [address] Monocytes (Bld) [#/Vol] 1.1 10*3/uL High 0-0.9 [facility] Comment on above: Performed By: #### C BCA, CMP, , 2776-11, 2157-04 ####[facility] ([id number])[address] [address], [place] [address] Monocytes/100 WBC (Bld) 11.4 % Normal [facility] Comment on above: Performed By: #### C BCA, CMP, , 2776-11, 2157-04 ####[facility] ([id number])[address] [address] [place] [address] Neutrophils/100 WBC (Bld) 72.2 % Normal [facility] Comment on above: Performed By: #### C BCA, CMP, , 2776-11, 2157-04 ####[facility] ([id number])[address] [place] [address] Platelet mean volume (Bld) [Entitic vol] 7.9 fL Normal 7-12 [facility] Comment on above: Performed By: #### C BCA, CMP, 73977-1, 2776-, 2157-04 ####[facility] ([id number])[address] [address] Platelets (Bld) [#/Vol] 187 10*3/uL Normal 150-450 [facility] Comment on above: Performed By: #### C BCA, CMP, 56599-6, 2776-, 2157-04 ####[facility] ([id number])[address] [address] [place] [address] RBC COUNT 2.81 X10E12/L Low 4.10-5.70 [facility] Comment on above: Performed By: #### C BCA, CMP, 08310-5, 2776-, 2157-04 ####[facility] ([id number])[address] [address] [place] [address] WBC (Bld) [#/Vol] 9.4 10*3/uL Normal 4.0-11.0 [facility] Comment on above: Performed By: #### C BCA, CMP, 33789-0, 2776-, 2157-04 ####[facility] ([id number])[address] [address] [place] [address] CK [Catalytic activity/Vol]o n 2024 CPK 16 U/L Low 24-195 [facility] Comment on above: Performed By: #### C BCA, CMP, 50271-1, 2776-, 2156- ####[facility] ([id number])[address] [address] COMPREHENSIVE METABOLIC PANE Jonathan 2024 Albumin [Mass/Vol] 3.1 g/dL Low 3.2-5.3 [facility] Comment on above: Performed By: #### C BCA, CMP, 23704-3, 2776-1, 2157-04 ####[facility] ([id number])[address], [place] [address] ALP [Catalytic activity/Vol] 58 U/L Normal 39-130 [facility] Comment on above: Performed By: #### C BCA, CMP, 35230-4, 2776-, 2157-04 ####[facility] ([id number])[address], [place] [address] ALT [Catalytic activity/Vol] U/L Normal 0-40 [facility] Comment on above: Performed By: #### C BCA, CMP, 32975-6, 2776-1, 2157-04 ####[facility] ([id number])[address], [place] [address] Anion gap [Moles/Vol] 12 mmol/L Normal 5-15 [facility] Comment on above: Performed By: #### C BCA, CMP, 80937-1, 2776-, 2157-04 ####[facility] ([id number])[address], [place] [address] AST [Catalytic activity/Vol] 7 U/L Normal 0-41 [facility] Comment on above: Performed By: #### C BCA, CMP, 34136-4, 2776-, 2157-04 ####[facility] ([id number])[address], [place] [address] Bilirubin [Mass/Vol] 0.7 mg/dL Normal 0.3-1.2 [facility] Comment on above: Performed By: #### C BCA, CMP, 29824-9, 2776-1, 2157-04 ####[facility] ([id number])[address], [place] [address] Calcium [Mass/Vol] 8.3 mg/dL Low 8.5-10.5 [facility] Comment on above: Performed By: #### C BCA, CMP, , 2776-11, 2157-04 ####[facility] ([id number])[address] [address] Chloride [Moles/Vol] 110 mmol/L High 98-109 [facility] Comment on above: Performed By: #### C BCA, CMP, , 2776-11, 2157-04 ####[facility] ([id number])[address] [place] [address] CO2 [Moles/Vol] 22 mmol/L Normal 22-32 [facility] Comment on above: Performed By: #### C BCA, CMP, , 2776-11, 2157-04 ####[facility] ([id number])[address] [place] [address] Creatinine [Mass/Vol] 4.62 mg/dL High 0.60-1.30 [facility] Comment on above: Result Comment: METH OD TRACEABLE TO IDMS STANDARD Performed By: #### C BCA, CMP, , 2776-11, 2157-04 ####[facility] ([id number])[address] [address] GFR/1.73 sq M.predicted among non-blacks MDRD (S/P/Bld) [Vol rate/Area] 13 mL/min/{1.73_m2} Low >59 [facility] Comment on above: Result Comment: Repo rted eGFR is based on theCKD-EPI 2020 equation that doesnot use a race coefficient. Performed By: #### C BCA, CMP, , 2776-11, 2157-04 ####[facility] ([id number])[address] [address] Glucose [Mass/Vol] 97 mg/dL Normal 65-99 [facility] Comment on above: Performed By: #### C BCA, CMP, 12869-1, 2776-11, 2157-04 ####[facility] ([id number])[address], [place] [address] Potassium [Moles/Vol] 3.9 mmol/L Normal 3.5-5.0 [facility] Comment on above: Performed By: #### C BCA, CMP, 60276-5, 2776-11, 2157-04 ####[facility] ([id number])[address], [place] [address] Protein [Mass/Vol] 5.6 g/dL Low 6.0-8.0 [facility] Comment on above: Performed By: #### C BCA, CMP, , 2776-11, 2157-04 ####[facility] ([id number])[address] [address], [place] [address] Sodium [Moles/Vol] 144 mmol/L Normal 134-146 [facility] Comment on above: Performed By: #### C BCA, CMP, , 2776-11, 2157-04 ####[facility] ([id number])[address] [address], [place] [address] Urea nitrogen [Mass/Vol] 69 mg/dL High 5-27 [facility] Comment on above: Performed By: #### C BCA, CMP, 28891-4, 2776-11, 2157-04 ####[facility] ([id number])[address] [address] [place] [address] HGB AND HCTon 2024 Hematocrit (Bld) [Volume fraction] 24.4 % Low 39-49 [facility] Comment on above: Performed By: #### H H ####[facility] ([id number])[address] [place] [address] Hemoglobin (Bld) [Mass/Vol] 7.9 g/dL Low 13.0-17.0 [facility] Comment on above: Performed By: #### H H ####[facility] ([id number])[address] [place] [address] MAGNESIUMon 2024 Magnesium [Mass/Vol] 1.9 mg/dL Normal 1.8-2.6 [facility] Comment on above: Performed By: #### C BCA, CMP, , 2776-11, 2157-04 ####[facility] ([id number])[address] [place] [address] PHOSPHORUSon 2024 Phosphate [Mass/Vol] 6.6 mg/dL High 2.4-4.9 [facility] Comment on above: Performed By: #### C BCA, CMP, , 2776-11, 2157-04 ####[facility] ([id number])[address] [address] C DIFFICILE BY PCRon 024 C. difficile toxin genes JAXON+probe Ql (Stl) TOXIGENIC C DIFF Negative (qualifier value) 027 NAP1 Negative (qualifier value) Normal PRNEG [facility] Comment on above: Performed By: #### 5 4067-4 ####[facility] ([id number])[address] [address] [place] [address] CBC AND AUTO DIFFon 10-10-20 24 ABSOLUTE BASOPHIL 0.1 X10E9/L Normal 0.0-0.2 [facility] Comment on above: Performed By: #### C BCA, CMP, , 2776-1 ####[facility] ([id number])[address] [address] ABSOLUTE NEUTROPHIL 5.1 X10E9/L Normal 1.5-6.6 [facility] Comment on above: Performed By: #### C KERRY CMP, , 2776-11 ####[facility] ([id number])[address] [address] Basophils/100 WBC (Bld) 1.0 % Normal [facility] Comment on above: Performed By: #### C BCA, CMP, , 2776-11 ####[facility] ([id number])[address] [address] [place] [address] Eosinophils (Bld) [#/Vol] 0.3 10*3/uL Normal 0.0-0.4 [facility] Comment on above: Performed By: #### C BCA, CMP, , 2776-11 ####[facility] ([id number])[address] [address] [address] Eosinophils/100 WBC (Bld) 4.2 % Normal [facility] Comment on above: Performed By: #### C BCA, CMP, , 2776-11 ####[facility] ([id number])[address] [address] Erythrocyte distribution width (RBC) [Ratio] 17.4 % High 11.5-15.0 [facility] Comment on above: Performed By: #### C BCA, CMP, , 2776-11 ####[facility] ([id number])[address] [address] [address] Hematocrit (Bld) [Volume fraction] 24.0 % Low 39-49 [facility] Comment on above: Performed By: #### C BCA, CMP, , 2776-11 ####[facility] ([id number])[address], [address] [place] [address] Hemoglobin (Bld) [Mass/Vol] 7.7 g/dL Low 13.0-17.0 [facility] Comment on above: Performed By: #### C KERRY, CMP, , 2776-11 ####[facility] [place] [facility] ([id number])[address] [address] [place] [address] Lymphocytes (Bld) [#/Vol] 1.0 10*3/uL Normal 1.0-3.5 [facility] Comment on above: Performed By: #### C BCA, CMP, , 2776-11 ####[facility] [place] [facility] ([id number])[address], [address] [address] Lymphocytes/100 WBC (Bld) 13.0 % Normal [facility] Comment on above: Performed By: #### C BCA, CMP, , 2776-11 ####[facility] [place] [facility] ([id number])[address] [address] [place] [address] MCH (RBC) [Entitic mass] 28.9 pg Normal 27-34 [facility] Comment on above: Performed By: #### C BCA, CMP, , 2776-11 ####[facility] [place] [facility] ([id number])[address] [address] [place] [address] MCHC (RBC) [Mass/Vol] 32.2 g/dL Normal 32-36 [facility] Comment on above: Performed By: #### C BCA, CMP, , 2776-11 ####[facility] ([id number])[address] [address] MCV (RBC) [Entitic vol] 90 fL Normal 80-100 [facility] Comment on above: Performed By: #### C BCA, CMP, , 2776-11 ####[facility] [place] [facility] ([id number])[address], [address], [place] [address] Monocytes (Bld) [#/Vol] 1.1 10*3/uL High 0-0.9 [facility] Comment on above: Performed By: #### C BCA, CMP, , 2776-11 ####[facility] [place] [facility] ([id number])[address], [address] [address] Monocytes/100 WBC (Bld) 14.4 % Normal [facility] Comment on above: Performed By: #### C BCA, CMP, , 2776-11 ####[facility] [facility] ([id number])[address], [address] [place] [address] Neutrophils/100 WBC (Bld) 67.4 % Normal [facility] Comment on above: Performed By: #### Belle BCA, CMP, , 2776-11 ####[facility] ([id number])[address] [place] [address] Platelet mean volume (Bld) [Entitic vol] 7.5 fL Normal 7-12 [facility] Comment on above: Performed By: #### Belle BCA, CMP, , 2776-11 ####[facility] [place] ([id number])[address], [address], [place] [address] Platelets (Bld) [#/Vol] 167 10*3/uL Normal 150-450 [facility] Comment on above: Performed By: #### C BCA, CMP, , 2776-11 ####[facility] [place] [facility] ([id number])[address], [address], [place] [address] RBC COUNT 2.67 X10E12/L Low 4.10-5.70 [facility] Comment on above: Performed By: #### Belle BCA, CMP, , 2776- ####[facility] [place] ([id number])[address], [address], [place] [address] WBC (Bld) [#/Vol] 7.6 10*3/uL Normal 4.0-11.0 [facility] Comment on above: Performed By: #### C BCA, CMP, , 2776-11 ####[facility] [facility] ([id number])[address], [address] [place] [address] COMPREHENSIVE METABOLIC PANE Jonathan 10-10-2024 Albumin [Mass/Vol] 3.3 g/dL Normal 3.2-5.3 [facility] Comment on above: Performed By: #### C BCA, CMP, , 2776-11 ####[facility] ([id number])[address] [address], [place] [address] ALP [Catalytic activity/Vol] 53 U/L Normal 39-130 [facility] Comment on above: Performed By: #### C BCA, CMP, , 2776-11 ####[facility] [place] [facility] ([id number])[address] [address], [place] [address] ALT [Catalytic activity/Vol] U/L Normal 0-40 [facility] Comment on above: Performed By: #### C BCA, CMP, , 2776-11 ####[facility] [place] [facility] ([id number])[address] [address] [place] [address] Anion gap [Moles/Vol] 13 mmol/L Normal 5-15 [facility] Comment on above: Performed By: #### C BCA, CMP, , 2776- ####[facility] ([id number])[address] [place] [address] AST [Catalytic activity/Vol] 7 U/L Normal 0-41 [facility] Comment on above: Performed By: #### C BCA, CMP, , 2776-11 ####[facility] ([id number])[address], [address], [place] [address] Bilirubin [Mass/Vol] 1.2 mg/dL Normal 0.3-1.2 [facility] Comment on above: Performed By: #### C BCA, CMP, , 2776-11 ####[facility] ([id number])[address], [address] [address] Calcium [Mass/Vol] 8.7 mg/dL Normal 8.5-10.5 [facility] Comment on above: Performed By: #### C BCA, CMP, , 2776-11 ####[facility] ([id number])[address] [address] Chloride [Moles/Vol] 108 mmol/L Normal 98-109 [facility] Comment on above: Performed By: #### C BCA, CMP, , 2776-11 ####[facility] ([id number])[address], [address] [place] [address] CO2 [Moles/Vol] 24 mmol/L Normal 22-32 [facility] Comment on above: Performed By: #### C BCA, CMP, , 2776-11 ####[facility] ([id number])[address] [address] [place] [address] Creatinine [Mass/Vol] 4.66 mg/dL High 0.60-1.30 [facility] Comment on above: Result Comment: METH OD TRACEABLE TO IDMS STANDARD Performed By: #### C BCA, CMP, , 2776-11 ####[facility] ([id number])[address], [address], [place] [address] GFR/1.73 sq M.predicted among non-blacks MDRD (S/P/Bld) [Vol rate/Area] 13 mL/min/{1.73_m2} Low >59 [facility] Comment on above: Result Comment: Repo rted eGFR is based on theCKD-EPI 2020 equation that doesnot use a race coefficient. Performed By: #### C KERRY, CMP, , 2776-11 ####[facility] ([id number])[address], [address], [place] [address] Glucose [Mass/Vol] 88 mg/dL Normal 65-99 [facility] Comment on above: Performed By: #### C KERRY, CMP, , 2776-11 ####[facility] ([id number])[address], [address], [place] [address] Potassium [Moles/Vol] 4.0 mmol/L Normal 3.5-5.0 [facility] Comment on above: Performed By: #### C BCA, CMP, , 2776-11 ####[facility] ([id number])[address], [address], [place] [address] Protein [Mass/Vol] 5.6 g/dL Low 6.0-8.0 [facility] Comment on above: Performed By: #### C BCA, CMP, , 2776-11 ####[facility] ([id number])[address], [address], [place] [address] Sodium [Moles/Vol] 145 mmol/L Normal 134-146 [facility] Comment on above: Performed By: #### C BCA, CMP, , 2776-11 ####[facility] ([id number])[address], [address], [place] [address] Urea nitrogen [Mass/Vol] 70 mg/dL High 5-27 [facility] Comment on above: Performed By: #### C BCA, CMP, , 2776-11 ####[facility] ([id number])[address], [place] [address] HGB AND HCTon 10-10-2024 Hematocrit (Bld) [Volume fraction] 24.7 % Low 39-49 [facility] Comment on above: Performed By: #### H H ####[facility] ([id number])[address], [address], [place] [address] Hemoglobin (Bld) [Mass/Vol] 8.0 g/dL Low 13.0-17.0 [facility] Comment on above: Performed By: #### H H ####[facility] ([id number])[address], [address], [place] [address] Hematocrit (Bld) [Volume fraction] 20.5 % Low 39-49 [facility] Comment on above: Performed By: #### H H ####[facility] ([id number])[address], [address] [address] Hemoglobin (Bld) [Mass/Vol] 6.6 g/dL Critically low 13.0-17.0 [facility] Comment on above: Performed By: #### H H ####[facility] ([id number])[address], [address], [place] [address] MAGNESIUMon 10-10-2024 Magnesium [Mass/Vol] 2.2 mg/dL Normal 1.8-2.6 [facility] Comment on above: Performed By: #### C BCA, CMP, , 2777- ####[facility] ([id number])[address], [address] [address] PHOSPHORUSon 10-10-2024 Phosphate [Mass/Vol] 7.7 mg/dL High 2.4-4.9 [facility] Comment on above: Performed By: #### C BCA, CMP, , 7- ####[facility] ([id number])[address], [address], [place] [address] CBC AND AUTO DIFFon 10-09-20 ABSOLUTE BASOPHIL 0.1 X10E9/L Normal 0.0-0.2 [facility] Comment on above: Performed By: #### C BCA, CMP, , 2776-11 ####[facility] ([id number])[address], [address] [address] ABSOLUTE NEUTROPHIL 5.3 X10E9/L Normal 1.5-6.6 [facility] Comment on above: Performed By: #### C BCA, CMP, , 2776-11 ####[facility] ([id number])[address], [address] [address] Basophils/100 WBC (Bld) 0.9 % Normal [facility] Comment on above: Performed By: #### C BCA, CMP, , 2776-11 ####[facility] ([id number])[address] [address] [place] [address] Eosinophils (Bld) [#/Vol] 0.3 10*3/uL Normal 0.0-0.4 [facility] Comment on above: Performed By: #### C BCA, CMP, , 2776-11 ####[facility] ([id number])[address] [address] [place] [address] Eosinophils/100 WBC (Bld) 4.2 % Normal [facility] Comment on above: Performed By: #### C BCA, CMP, , 2776-11 ####[facility] ([id number])[address] [address] [place] [address] Erythrocyte distribution width (RBC) [Ratio] 17.9 % High 11.5-15.0 [facility] Comment on above: Performed By: #### C BCA, CMP, , 2776-11 ####[facility] ([id number])[address] [place] [address] Hematocrit (Bld) [Volume fraction] 23.1 % Low 39-49 [facility] Comment on above: Performed By: #### C KERRY, CMP, , 2776-11 ####[facility] ([id number])[address], [address] [place] [address] Hemoglobin (Bld) [Mass/Vol] 7.3 g/dL Low 13.0-17.0 [facility] Comment on above: Performed By: #### C KERRY, CMP, , 2776-11 ####[facility] ([id number])[address], [address] [address] Lymphocytes (Bld) [#/Vol] 1.1 10*3/uL Normal 1.0-3.5 [facility] Comment on above: Performed By: #### C BCA, CMP, , 2776-11 ####[facility] ([id number])[address] [address] [place] [address] Lymphocytes/100 WBC (Bld) 13.8 % Normal [facility] Comment on above: Performed By: #### Belle BCA, CMP, , 2776-11 ####[facility] ([id number])[address], [address], [place] [address] MCH (RBC) [Entitic mass] 28.0 pg Normal 27-34 [facility] Comment on above: Performed By: #### C BCA, CMP, , 2776-11 ####[facility] ([id number])[address], [address] [place] [place] [address] MCHC (RBC) [Mass/Vol] 31.6 g/dL Low 32-36 [facility] Comment on above: Performed By: #### C BCA CMP, , 2776-11 ####[facility] ([id number])[address], [address] [place] [address] MCV (RBC) [Entitic vol] 89 fL Normal 80-100 [facility] Comment on above: Performed By: #### C BCA, CMP, , 2776-11 ####[facility] ([id number])[address], [address], [place] [address] Monocytes (Bld) [#/Vol] 1.0 10*3/uL High 0-0.9 [facility] Comment on above: Performed By: #### C BCA, CMP, , 2776-11 ####[facility] ([id number])[address], [address], [place] [address] Monocytes/100 WBC (Bld) 13.1 % Normal [facility] Comment on above: Performed By: #### Belle BCA, CMP, , 2776-11 ####[facility] ([id number])[address], [address], [place] [address] Neutrophils/100 WBC (Bld) 68.0 % Normal [facility] Comment on above: Performed By: #### Belle BCA, CMP, , 2776-11 ####[facility] ([id number])[address] [place] [address] Platelet mean volume (Bld) [Entitic vol] 7.7 fL Normal 7-12 [facility] Comment on above: Performed By: #### C BCA, CMP, , 2776-11 ####[facility] ([id number])[address], [address], [place] [address] Platelets (Bld) [#/Vol] 199 10*3/uL Normal 150-450 [facility] Comment on above: Performed By: #### C BCA, CMP, , 2776-11 ####[facility] ([id number])[address], [address] [address] RBC COUNT 2.60 X10E12/L Low 4.10-5.70 [facility] Comment on above: Performed By: #### C BCA, CMP, , 2776-11 ####[facility] ([id number])[address], [address] [place] [address] WBC (Bld) [#/Vol] 7.8 10*3/uL Normal 4.0-11.0 [facility] Comment on above: Performed By: #### C BCA, CMP, , 2776-11 ####[facility] ([id number])[address], [address] [place] [address] COMPREHENSIVE METABOLIC PANE Jonathan 10-09-2024 Albumin [Mass/Vol] 2.9 g/dL Low 3.2-5.3 [facility] Comment on above: Performed By: #### C BCA, CMP, , 2776-11 ####[facility] ([id number])[address] [address] [address] ALP [Catalytic activity/Vol] 56 U/L Normal 39-130 [facility] Comment on above: Performed By: #### C BCA, CMP, , 2776-11 ####[facility] ([id number])[address] [address] [place] [address], [place] [address] ALT [Catalytic activity/Vol] U/L Normal 0-40 [facility] Comment on above: Performed By: #### C BCA, CMP, , 2776-11 ####[facility] ([id number])[address] [address] [address] Anion gap [Moles/Vol] 13 mmol/L Normal 5-15 [facility] Comment on above: Performed By: #### C BCA, CMP, , 2776-11 ####[facility] ([id number])[address], [address], [place] [address] AST [Catalytic activity/Vol] 7 U/L Normal 0-41 [facility] Comment on above: Performed By: #### C BCA, CMP, , 2776-11 ####[facility] ([id number])[address], [address], [place] [address] Bilirubin [Mass/Vol] 0.6 mg/dL Normal 0.3-1.2 [facility] Comment on above: Performed By: #### C BCA, CMP, , 2776-11 ####[facility] ([id number])[address], [place] [address] Calcium [Mass/Vol] 8.2 mg/dL Low 8.5-10.5 [facility] Comment on above: Performed By: #### C BCA, CMP, , 2776-11 ####[facility] ([id number])[address], [address], [place] [address] Chloride [Moles/Vol] 106 mmol/L Normal 98-109 [facility] Comment on above: Performed By: #### C BCA, CMP, , 2776-11 ####[facility] ([id number])[address], [address], [place] [address] CO2 [Moles/Vol] 24 mmol/L Normal 22-32 [facility] Comment on above: Performed By: #### C BCA, CMP, , 2776-11 ####[facility] ([id number])[address], [address], [place] [address] Creatinine [Mass/Vol] 4.77 mg/dL High 0.60-1.30 [facility] Comment on above: Result Comment: METH OD TRACEABLE TO IDMS STANDARD Performed By: #### C SEAMUS PAYNE, , 2776-11 ####[facility] ([id number])[address] [address] [place] [address] GFR/1.73 sq M.predicted among non-blacks MDRD (S/P/Bld) [Vol rate/Area] 13 mL/min/{1.73_m2} Low >59 [facility] Comment on above: Result Comment: Repo rted eGFR is based on theCKD-EPI 2020 equation that doesnot use a race coefficient. Performed By: #### C SEAMUS PAYNE, , 2776-11 ####[facility] ([id number])[address] [address], [place] [address] Glucose [Mass/Vol] 91 mg/dL Normal 65-99 [facility] Comment on above: Performed By: #### C SEAMUS PAYNE, , 2776-11 ####[facility] ([id number])[address] [address], [place] [address] Potassium [Moles/Vol] 3.9 mmol/L Normal 3.5-5.0 [facility] Comment on above: Performed By: #### C SEAMUS PAYNE, , 2776-11 ####[facility] ([id number])[address] [address] [place] [address] Protein [Mass/Vol] 5.5 g/dL Low 6.0-8.0 [facility] Comment on above: Performed By: #### C KERRY CMP, , 2776-11 ####[facility] ([id number])[address] [address] [place] [address] Sodium [Moles/Vol] 143 mmol/L Normal 134-146 [facility] Comment on above: Performed By: #### C KERRY CMP, , 2776-11 ####[facility] ([id number])[address], [place] [address] Urea nitrogen [Mass/Vol] 69 mg/dL High 5-27 [facility] Comment on above: Performed By: #### C BCA, CMP, , 2776-11 ####[facility] ([id number])[address], [place] [address] MAGNESIUMon 10-09-2024 Magnesium [Mass/Vol] 2.2 mg/dL Normal 1.8-2.6 [facility] Comment on above: Performed By: #### C KERRY, CMP, , 2776-11 ####[facility] ([id number])[address], [place] [address] PHOSPHORUSon 10-09-2024 Phosphate [Mass/Vol] 6.4 mg/dL High 2.4-4.9 [facility] Comment on above: Performed By: #### C KERRY, CMP, , 2776-11 ####[facility] ([id number])[address], [place] [address] CBC AND AUTO DIFFon 10-08-20 24 ABSOLUTE BASOPHIL 0.1 X10E9/L Normal 0.0-0.2 [facility] Comment on above: Performed By: #### C BCA, CMP, , 2776-11 ####[facility] ([id number])[address] [place] [address] ABSOLUTE NEUTROPHIL 9.6 X10E9/L High 1.5-6.6 [facility] Comment on above: Performed By: #### C BCA, CMP, , 2776-11 ####[facility] ([id number])[address] [address] Basophils/100 WBC (Bld) 0.5 % Normal [facility] Comment on above: Performed By: #### C BCA, CMP, , 2776-11 ####[facility] ([id number])[address] [address] [place] [address] Eosinophils (Bld) [#/Vol] 0.5 10*3/uL High 0.0-0.4 [facility] Comment on above: Performed By: #### C BCA, CMP, , 2776-11 ####[facility] ([id number])[address] [address] [address] Eosinophils/100 WBC (Bld) 3.9 % Normal [facility] Comment on above: Performed By: #### C BCA, CMP, , 2776-11 ####[facility] ([id number])[address] [address] [address] Erythrocyte distribution width (RBC) [Ratio] 17.8 % High 11.5-15.0 [facility] Comment on above: Performed By: #### C BCA, CMP, , 2776-11 ####[facility] ([id number])[address] [address] [place] [address] Hematocrit (Bld) [Volume fraction] 26.9 % Low 39-49 [facility] Comment on above: Performed By: #### C BCA, CMP, , 2776-11 ####[facility] ([id number])[address] [address] [address] Hemoglobin (Bld) [Mass/Vol] 8.6 g/dL Low 13.0-17.0 [facility] Comment on above: Performed By: #### C BCA, CMP, , 2776-11 ####[facility] ([id number])[address] [address] [place] [address] Lymphocytes (Bld) [#/Vol] 1.2 10*3/uL Normal 1.0-3.5 [facility] Comment on above: Performed By: #### C BCA, CMP, , 2776-11 ####[facility] ([id number])[address] [place] [address] Lymphocytes/100 WBC (Bld) 9.6 % Normal [facility] Comment on above: Performed By: #### C KERRY, CMP, , 2776-11 ####[facility] ([id number])[address] [place] [address] MCH (RBC) [Entitic mass] 28.0 pg Normal 27-34 [facility] Comment on above: Performed By: #### Belle PAYNE, CMP, , 2776-11 ####[facility] ([id number])[address] [place] [address] MCHC (RBC) [Mass/Vol] 31.8 g/dL Low 32-36 [facility] Comment on above: Performed By: #### Belle BCA, CMP, , 2776-11 ####[facility] ([id number])[address] [address] MCV (RBC) [Entitic vol] 88 fL Normal 80-100 [facility] Comment on above: Performed By: #### Belle BCA, CMP, , 2776-11 ####[facility] ([id number])[address] [address] [place] [address] Monocytes (Bld) [#/Vol] 1.5 10*3/uL High 0-0.9 [facility] Comment on above: Performed By: #### Belle BCA, CMP, , 2776-11 ####[facility] ([id number])[address] [address] Monocytes/100 WBC (Bld) 11.9 % Normal [facility] Comment on above: Performed By: #### C BCA, CMP, , 2776-11 ####[facility] ([id number])[address], [place] [address] Neutrophils/100 WBC (Bld) 74.1 % Normal [facility] Comment on above: Performed By: #### C BCA, CMP, , 2776-11 ####[facility] ([id number])[address], [place] [address] Platelet mean volume (Bld) [Entitic vol] 7.9 fL Normal 7-12 [facility] Comment on above: Performed By: #### Belle BCA, CMP, , 2776-11 ####[facility] ([id number])[address] [place] [address] Platelets (Bld) [#/Vol] 237 10*3/uL Normal 150-450 [facility] Comment on above: Performed By: #### C BCA, CMP, , 2776-11 ####[facility] ([id number])[address], [place] [address] RBC COUNT 3.06 X10E12/L Low 4.10-5.70 [facility] Comment on above: Performed By: #### C BCA, CMP, , 2776-11 ####[facility] ([id number])[address], [place] [address] WBC (Bld) [#/Vol] 13.0 10*3/uL High 4.0-11.0 [facility] Comment on above: Performed By: #### C BCA, CMP, , 2776-11 ####[facility] ([id number])[address], [place] [address] COMPREHENSIVE METABOLIC PANE Jonathan 10-08-2024 Albumin [Mass/Vol] 3.4 g/dL Normal 3.2-5.3 [facility] Comment on above: Performed By: #### C BCA, CMP, , 2776- ####[facility] ([id number])[address], [place] [address] ALP [Catalytic activity/Vol] 70 U/L Normal 39-130 [facility] Comment on above: Performed By: #### C BCA, CMP, , 2776- ####[facility] ([id number])[address], [place] [address] ALT [Catalytic activity/Vol] 4 U/L Normal 0-40 [facility] Comment on above: Performed By: #### C BCA, CMP, , 2776-11 ####[facility] ([id number])[address], [place] [address] Anion gap [Moles/Vol] 15 mmol/L Normal 5-15 [facility] Comment on above: Performed By: #### C BCA, CMP, , 2776-11 ####[facility] ([id number])[address], [place] [address] AST [Catalytic activity/Vol] 9 U/L Normal 0-41 [facility] Comment on above: Performed By: #### C BCA, CMP, , 2776- ####[facility] ([id number])[address], [place] [address] Bilirubin [Mass/Vol] 0.7 mg/dL Normal 0.3-1.2 [facility] Comment on above: Performed By: #### C BCA, CMP, , 2776-11 ####[facility] ([id number])[address], [place] [address] Calcium [Mass/Vol] 8.5 mg/dL Normal 8.5-10.5 [facility] Comment on above: Performed By: #### C BCA, CMP, , 2776-11 ####[facility] ([id number])[address] [address] Chloride [Moles/Vol] 103 mmol/L Normal 98-109 [facility] Comment on above: Performed By: #### C BCA, CMP, , 2776-11 ####[facility] [place] [facility] ([id number])[address] [address] [place] [address] CO2 [Moles/Vol] 24 mmol/L Normal 22-32 [facility] Comment on above: Performed By: #### C BCA, CMP, , 2776-11 ####[facility] [place] [facility] ([id number])[address] [address] Creatinine [Mass/Vol] 4.83 mg/dL High 0.60-1.30 [facility] Comment on above: Result Comment: METH OD TRACEABLE TO IDMS STANDARD Performed By: #### C BCA, CMP, , 2776-11 ####[facility] ([id number])[address] [address] GFR/1.73 sq M.predicted among non-blacks MDRD (S/P/Bld) [Vol rate/Area] 13 mL/min/{1.73_m2} Low >59 [facility] Comment on above: Result Comment: Repo rted eGFR is based on theCKD-EPI 2020 equation that doesnot use a race coefficient. Performed By: #### C BCA, CMP, , 2776-11 ####[facility] [facility] ([id number])[address], [address], [place] [address] Glucose [Mass/Vol] 110 mg/dL High 65-99 [facility] Comment on above: Performed By: #### C BCA, CMP, , 2776-11 ####[facility] ([id number])[address], [address], [place] [address] Potassium [Moles/Vol] 4.7 mmol/L Normal 3.5-5.0 [facility] Comment on above: Performed By: #### C BCA, CMP, , 2776-11 ####[facility] [place] [facility] ([id number])[address], [place] [address] Protein [Mass/Vol] 6.4 g/dL Normal 6.0-8.0 [facility] Comment on above: Performed By: #### C BCA, CMP, , 2776-11 ####[facility] [place] ([id number])[address], [place] [address] Sodium [Moles/Vol] 142 mmol/L Normal 134-146 [facility] Comment on above: Performed By: #### C BCA, CMP, , 2776-11 ####[facility] [place] [facility] ([id number])[address], [address], [place] [address] Urea nitrogen [Mass/Vol] 72 mg/dL High 5-27 [facility] Comment on above: Performed By: #### C BCA, CMP, , 2776-11 ####[facility] ([id number])[address], [place] [address] MAGNESIUMon 10-08-2024 Magnesium [Mass/Vol] 2.4 mg/dL Normal 1.8-2.6 [facility] Comment on above: Performed By: #### C BCA, CMP, , 2776-11 ####[facility] ([id number])[address] [place] [address] MR ANKLE RT WO CONTon 2023 MR ANKLE RT WO CONT Normal [facility] PHOSPHORUSon 10-08-2024 Phosphate [Mass/Vol] 6.7 mg/dL High 2.4-4.9 [facility] Comment on above: Performed By: #### C KERRY, CMP, , 2776-11 ####[facility] ([id number])[address] [place] [address] ANAEROBE CULTUREon 4 Bacteria identified Anaer cx Nom (Unsp spec) SPECIMEN NOTES CALCANEOUS BONE CULTURE RESULTS NO ANAEROBIC ORGANISMS ISOLATED Normal [facility] Comment on above: Performed By: #### 6 35-3 ####[facility] ([id number])[address] [place] [address] BONE CULTUREon 10-07-2024 Bacteria identified Aer cx Nom (Bone) SPECIMEN NOTES CALCANEOUS BONE CULTURE RESULTS JUAN M ALBICANS Abnormal [facility] Comment on above: Performed By: #### 6 02-3 ####[facility] ([id number])[address] [place] [address] CBC AND AUTO DIFFon 10-07-20 24 ABSOLUTE BASOPHIL 0.0 X10E9/L Normal 0.0-0.2 [facility] Comment on above: Performed By: #### C BCA, CMP, , 2776-11 ####[facility] [place] [facility] ([id number])[address], [address] [place] [address] ABSOLUTE NEUTROPHIL 9.0 X10E9/L High 1.5-6.6 [facility] Comment on above: Performed By: #### C BCA, CMP, , 2776-11 ####[facility] [place] [facility] ([id number])[address], [address], [place] [address] Basophils/100 WBC (Bld) 0.3 % Normal [facility] Comment on above: Performed By: #### C BCA, CMP, , 2776-11 ####[facility] [place] [facility] ([id number])[address] [address] [place] [address] Eosinophils (Bld) [#/Vol] 0.4 10*3/uL Normal 0.0-0.4 [facility] Comment on above: Performed By: #### C BCA, CMP, , 2776-11 ####[facility] [place] [facility] ([id number])[address] [address] [address] Eosinophils/100 WBC (Bld) 3.5 % Normal [facility] Comment on above: Performed By: #### C BCA, CMP, , 2776-11 ####[facility] [place] [facility] ([id number])[address] [address] [place] [address] Erythrocyte distribution width (RBC) [Ratio] 17.9 % High 11.5-15.0 [facility] Comment on above: Performed By: #### C BCA, CMP, , 2776-11 ####[facility] [place] [facility] ([id number])[address] [address] Hematocrit (Bld) [Volume fraction] 25.6 % Low 39-49 [facility] Comment on above: Performed By: #### C BCA, CMP, , 2776-11 ####[facility] [place] [facility] ([id number])[address] [address] [address] Hemoglobin (Bld) [Mass/Vol] 8.2 g/dL Low 13.0-17.0 [facility] Comment on above: Performed By: #### C BCA, CMP, , 2776-11 ####[facility] [place] [facility] ([id number])[address] [place] [address] Lymphocytes (Bld) [#/Vol] 1.1 10*3/uL Normal 1.0-3.5 [facility] Comment on above: Performed By: #### C BCA, CMP, , 2776-11 ####[facility] [place] [facility] ([id number])[address], [address] [place] [address] Lymphocytes/100 WBC (Bld) 9.3 % Normal [facility] Comment on above: Performed By: #### C BCA, CMP, , 2776-11 ####[facility] [place] [facility] ([id number])[address], [address] [place] [address] MCH (RBC) [Entitic mass] 28.3 pg Normal 27-34 [facility] Comment on above: Performed By: #### Belle BCA, CMP, , 2776-11 ####[facility] [place] [facility] ([id number])[address], [address] [place] [address] MCHC (RBC) [Mass/Vol] 31.8 g/dL Low 32-36 [facility] Comment on above: Performed By: #### Belle BCA, CMP, , 2776-11 ####[facility] [place] [facility] ([id number])[address] [address] MCV (RBC) [Entitic vol] 89 fL Normal 80-100 [facility] Comment on above: Performed By: #### Belle BCA, CMP, , 2776-11 ####[facility] [place] [facility] ([id number])[address] [address] [place] [address] Monocytes (Bld) [#/Vol] 1.3 10*3/uL High 0-0.9 [facility] Comment on above: Performed By: #### Belle BCA, CMP, , 2776-11 ####[facility] [place] [facility] ([id number])[address], [address], [place] [address] Monocytes/100 WBC (Bld) 11.1 % Normal [facility] Comment on above: Performed By: #### C BCA, CMP, , 2776-11 ####[facility] [place] [facility] ([id number])[address], [address], [place] [address] Neutrophils/100 WBC (Bld) 75.8 % Normal [facility] Comment on above: Performed By: #### C BCA, CMP, , 2776-11 ####[facility] [place] [facility] ([id number])[address], [address], [place] [address] Platelet mean volume (Bld) [Entitic vol] 8.3 fL Normal 7-12 [facility] Comment on above: Performed By: #### Belle BCA, CMP, , 2776-11 ####[facility] [place] [facility] ([id number])[address] [address] Platelets (Bld) [#/Vol] 198 10*3/uL Normal 150-450 [facility] Comment on above: Performed By: #### C BCA, CMP, , 2776-11 ####[facility] [place] [facility] ([id number])[address], [address], [place] [address] RBC COUNT 2.89 X10E12/L Low 4.10-5.70 [facility] Comment on above: Performed By: #### C BCA, CMP, , 2776-11 ####[facility] [place] [facility] ([id number])[address], [address], [place] [address] WBC (Bld) [#/Vol] 11.9 10*3/uL High 4.0-11.0 [facility] Comment on above: Performed By: #### C BCA, CMP, , 2776-11 ####[facility] [place] [facility] ([id number])[address], [place] [address] COMPREHENSIVE METABOLIC PANE Jonathan 10-07-2024 Albumin [Mass/Vol] 2.4 g/dL Low 3.2-5.3 [facility] Comment on above: Performed By: #### C BCA, CMP, , 2776- ####[facility] [place] [facility] ([id number])[address], [address], [place] [address] ALP [Catalytic activity/Vol] 70 U/L Normal 39-130 [facility] Comment on above: Performed By: #### C BCA, CMP, , 2776- ####[facility] [place] [facility] ([id number])[address], [address], [place] [address] ALT [Catalytic activity/Vol] 4 U/L Normal 0-40 [facility] Comment on above: Performed By: #### C BCA, CMP, , 2776-11 ####[facility] [place] [facility] ([id number])[address], [address], [place] [address] Anion gap [Moles/Vol] 11 mmol/L Normal 5-15 [facility] Comment on above: Performed By: #### C BCA, CMP, , 2776-11 ####[facility] [place] [facility] ([id number])[address], [address], [place] [address] AST [Catalytic activity/Vol] 9 U/L Normal 0-41 [facility] Comment on above: Performed By: #### C BCA, CMP, , 2776- ####[facility] [place] [facility] ([id number])[address], [place] [address] Bilirubin [Mass/Vol] 0.5 mg/dL Normal 0.3-1.2 [facility] Comment on above: Performed By: #### C BCA, CMP, , 2776-11 ####[facility] [place] [facility] ([id number])[address], [place] [address] Calcium [Mass/Vol] 7.4 mg/dL Low 8.5-10.5 [facility] Comment on above: Performed By: #### C BCA, CMP, , 2776-11 ####[facility] [place] [facility] ([id number])[address] [address] [place] [address] Chloride [Moles/Vol] 106 mmol/L Normal 98-109 [facility] Comment on above: Performed By: #### C BCA, CMP, , 2776-11 ####[facility] [place] [facility] ([id number])[address] [address] [place] [address] CO2 [Moles/Vol] 25 mmol/L Normal 22-32 [facility] Comment on above: Performed By: #### C BCA, CMP, , 2776-11 ####[facility] [place] [facility] ([id number])[address] [address] Creatinine [Mass/Vol] 4.56 mg/dL High 0.60-1.30 [facility] Comment on above: Result Comment: METH OD TRACEABLE TO IDMS STANDARD Performed By: #### C BCA, CMP, , 2776-11 ####[facility] [place] [facility] ([id number])[address] [address] GFR/1.73 sq M.predicted among non-blacks MDRD (S/P/Bld) [Vol rate/Area] 14 mL/min/{1.73_m2} Low >59 [facility] Comment on above: Result Comment: Repo rted eGFR is based on theCKD-EPI 2020 equation that doesnot use a race coefficient. Performed By: #### C BCA, CMP, , 2776-11 ####[facility] [place] [facility] ([id number])[address], [address], [place] [address] Glucose [Mass/Vol] 74 mg/dL Normal 65-99 [facility] Comment on above: Performed By: #### C BCA, CMP, , 2776-11 ####[facility] [place] [facility] ([id number])[address], [address], [place] [address] Potassium [Moles/Vol] 4.0 mmol/L Normal 3.5-5.0 [facility] Comment on above: Performed By: #### C BCA, CMP, , 2776-11 ####[facility] [place] [facility] ([id number])[address], [address], [place] [address] Protein [Mass/Vol] 5.3 g/dL Low 6.0-8.0 [facility] Comment on above: Performed By: #### C BCA, CMP, , 2776-11 ####[facility] [place] [facility] ([id number])[address], [address], [place] [address] Sodium [Moles/Vol] 142 mmol/L Normal 134-146 [facility] Comment on above: Performed By: #### C BCA, CMP, , 2776- ####[facility] [place] [facility] ([id number])[address], [address], [place] [address] Urea nitrogen [Mass/Vol] 69 mg/dL High 5-27 [facility] Comment on above: Performed By: #### C BCA, CMP, , 2776-11 ####[facility] [place] [facility] ([id number])[address], [place] [address] FUNGAL CULTUREon 10-07-2024 Fungus identified Cx Nom (Unsp spec) SPECIMEN NOTES CALCANEOUS FUNGAL SMEAR TEST NOT PERFORMED CULTURE RESULTS JUAN M ALBICANS Abnormal [facility] Comment on above: Performed By: #### 5 80-1 ####[facility] [place] [facility] ([id number])[address] [address] MAGNESIUMon 10-07-2024 Magnesium [Mass/Vol] 1.8 mg/dL Normal 1.8-2.6 [facility] Comment on above: Performed By: #### C BCA, CMP, 25298-8, 2777-1 ####[facility] [place] [facility] ([id number])[address] [address] PHOSPHORUSon 10-07-2024 Phosphate [Mass/Vol] 6.7 mg/dL High 2.4-4.9 [facility] Comment on above: Performed By: #### C BCA, CMP, 93992-3, 2777-1 ####[facility] [place] [facility] ([id number])[address], [address] [place] [address] AMMONIAon 10-06-2024 Ammonia (P) [Moles/Vol] 28 umol/L Normal 18-72 [facility] Comment on above: Result Comment: NEW REFERENCE RANGE Performed By: #### C BCA, 65104-2, CMP, 67048-0 ####[facility] [place] [facility] ([id number])[address], [address] [place] [address] ARTERIAL BLOOD GASon 024 NANCY'S TEST Pass Normal [facility] Comment on above: Performed By: #### A BG ####[facility] ([id number])[address] [place] [address] BASE,DEFICIT 2.0 MMOL/L Normal 0.0-2.0 [facility] Comment on above: Performed By: #### A BG ####[facility] ([id number])[address] [place] [address] Body temperature 98.6 [degF] Normal 37.0 [facility] Comment on above: Performed By: #### A BG ####[facility] ([id number])[address] [place] [address] HCO3 (Bld) [Moles/Vol] 21.8 mmol/L Low 22-26 [facility] Comment on above: Performed By: #### A BG ####[facility] ([id number])[address] [facility] [place] [address] INSP. O2 CONC. 21 % Normal [facility] Comment on above: Performed By: #### A BG ####[facility] ([id number])[address] [facility] [place] [address] Oxygen (Bld) [Partial pressure] 61 mm[Hg] Low 80-100 [facility] Comment on above: Performed By: #### A BG ####[facility] ([id number])[address] [facility] [place] [address] Oxygen saturation in Blood 92.0 % Normal >90 [facility] Comment on above: Performed By: #### A BG ####[facility] ([id number])[address] [facility] [place] [address] OXYGEN SOURCE [employer] [facility] Comment on above: Performed By: #### A BG ####[facility] ([id number])[address] [facility] SYSTEMVQiao.comTOMER[facility] [place] [address] PCO2 34.4 MMHG Low 35-45 [facility] Comment on above: Performed By: #### A BG ####[facility] ([id number])[address] [facility]LE[facility] [place] [address] pH (Bld) 7.410 [pH] Normal 7.350-7.450 [facility] Comment on above: Performed By: #### A BG ####[facility] ([id number])[address] [facility] [place] [place] [address] SAMPLE SITE [employer] [facility] Comment on above: Performed By: #### A BG ####[facility] ([id number])[address] [place] [address] SAMPLE TYPE ARTERIAL Normal [facility] Comment on above: Performed By: #### A BG ####[facility] ([id number])[address] [place] [address] CBC AND AUTO DIFFon 10-06-20 24 ABSOLUTE BASOPHIL 0.0 X10E9/L Normal 0.0-0.2 [facility] Comment on above: Performed By: #### C BCA, CMP, , 2776-11 ####[facility] [place] [facility] ([id number])[address] [address] ABSOLUTE NEUTROPHIL 11.6 X10E9/L High 1.5-6.6 [facility] Comment on above: Performed By: #### C BCA, CMP, , 2776-11 ####[facility] [place] [facility] ([id number])[address] [address] Basophils/100 WBC (Bld) 0.1 % Normal [facility] Comment on above: Performed By: #### C BCA, CMP, , 2776-11 ####[facility] [place] [facility] ([id number])[address], [address] [place] [address] Eosinophils (Bld) [#/Vol] 0.2 10*3/uL Normal 0.0-0.4 [facility] Comment on above: Performed By: #### C BCA, CMP, , 2776-11 ####[facility] [place] [facility] ([id number])[address] [address] Eosinophils/100 WBC (Bld) 1.6 % Normal [facility] Comment on above: Performed By: #### C BCA, CMP, , 2776-11 ####[facility] [place] [facility] ([id number])[address], [address] [place] [address] Erythrocyte distribution width (RBC) [Ratio] 17.8 % High 11.5-15.0 [facility] Comment on above: Performed By: #### Belle PAYNE CMP, , 2776-11 ####[facility] [place] [facility] ([id number])[address] [address] [place] [address] Hematocrit (Bld) [Volume fraction] 24.6 % Low 39-49 [facility] Comment on above: Performed By: #### C KERRY, CMP, , 2776-11 ####[facility] [place] [facility] ([id number])[address] [address] Hemoglobin (Bld) [Mass/Vol] 7.7 g/dL Low 13.0-17.0 [facility] Comment on above: Performed By: #### Belle PAYNE CMP, , 2776-11 ####[facility] [place] [facility] ([id number])[address] [address] [place] [address] Lymphocytes (Bld) [#/Vol] 1.2 10*3/uL Normal 1.0-3.5 [facility] Comment on above: Performed By: #### Belle PAYNE, CMP, , 2776-11 ####[facility] [place] [facility] ([id number])[address] [address] Lymphocytes/100 WBC (Bld) 8.7 % Normal [facility] Comment on above: Performed By: #### C KERRY, CMP, , 2776-11 ####[facility] [place] [facility] ([id number])[address] [address] MCH (RBC) [Entitic mass] 27.7 pg Normal 27-34 [facility] Comment on above: Performed By: #### Belle PAYNE, CMP, , 2776-11 ####[facility] [place] [facility] ([id number])[address] [place] [address] MCHC (RBC) [Mass/Vol] 31.4 g/dL Low 32-36 [facility] Comment on above: Performed By: #### C BCA, CMP, , 2776-11 ####[facility] [place] [facility] ([id number])[address] [place] [address] MCV (RBC) [Entitic vol] 88 fL Normal 80-100 [facility] Comment on above: Performed By: #### C BCA, CMP, , 2776-11 ####[facility] [place] [facility] ([id number])[address] [place] [address] Monocytes (Bld) [#/Vol] 1.3 10*3/uL High 0-0.9 [facility] Comment on above: Performed By: #### Belle BCA, CMP, , 2776-11 ####[facility] [place] [facility] ([id number])[address], [place] [address] Monocytes/100 WBC (Bld) 9.3 % Normal [facility] Comment on above: Performed By: #### Belle BCA, CMP, , 2776-11 ####[facility] [place] [facility] ([id number])[address] [address] [place] [address] Neutrophils/100 WBC (Bld) 80.3 % Normal [facility] Comment on above: Performed By: #### C BCA, CMP, , 2776-11 ####[facility] [place] [facility] ([id number])[address] [place] [address] Platelet mean volume (Bld) [Entitic vol] 8.3 fL Normal 7-12 [facility] Comment on above: Performed By: #### Belle BCA, CMP, , 2776-11 ####[facility] [place] [facility] ([id number])[address] [place] [address] Platelets (Bld) [#/Vol] 172 10*3/uL Normal 150-450 [facility] Comment on above: Performed By: #### Belle PAYNE, CMP, 37281-8, 2776- ####[facility] [place] [facility] ([id number])[address] [place] [address] RBC COUNT 2.79 X10E12/L Low 4.10-5.70 [facility] Comment on above: Performed By: #### C KERRY, CMP, , 2776- ####[facility] [place] [facility] ([id number])[address] [place] [address] WBC (Bld) [#/Vol] 14.4 10*3/uL High 4.0-11.0 [facility] Comment on above: Performed By: #### Belle PAYNE, CMP, , 2776-11 ####[facility] [place] [facility] ([id number])[address] [place] [address] ABSOLUTE BASOPHIL 0.1 X10E9/L Normal 0.0-0.2 [facility] Comment on above: Performed By: #### Belle BCA, 76213-5, CMP, 73357-5 ####[facility] [place] [facility] ([id number])[address] [place] [address] ABSOLUTE NEUTROPHIL 13.7 X10E9/L High 1.5-6.6 [facility] Comment on above: Performed By: #### Belle BCA, 70813-3, CMP, 57881-3 ####[facility] ([id number])[address] [place] [address] Basophils/100 WBC (Bld) 0.4 % Normal [facility] Comment on above: Performed By: #### Belle BCA, 29471-9, CMP, 01640-7 ####[facility] [place] [facility] ([id number])[address] [place] [place] [address] Eosinophils (Bld) [#/Vol] 0.2 10*3/uL Normal 0.0-0.4 [facility] Comment on above: Performed By: #### C BCA, 78313-0, CMP, 38620-3 ####[facility] ([id number])[address] [address] Eosinophils/100 WBC (Bld) 1.3 % Normal [facility] Comment on above: Performed By: #### C BCA, 66544-4, CMP, 15188-6 ####[facility] [place] ([id number])[address], [place] [address] Erythrocyte distribution width (RBC) [Ratio] 18.0 % High 11.5-15.0 [facility] Comment on above: Performed By: #### C BCA, 26668-8, CMP, 15994-2 ####[facility] [place] [facility] ([id number])[address] [address] Hematocrit (Bld) [Volume fraction] 24.1 % Low 39-49 [facility] Comment on above: Performed By: #### C BCA, 11902-8, CMP, 37959-3 ####[facility] ([id number])[address] [address] Hemoglobin (Bld) [Mass/Vol] 7.4 g/dL Low 13.0-17.0 [facility] Comment on above: Performed By: #### C BCA, 60623-3, CMP, 87889-7 ####[facility] ([id number])[address], [place] [address] Lymphocytes (Bld) [#/Vol] 0.9 10*3/uL Low 1.0-3.5 [facility] Comment on above: Performed By: #### C BCA, 61936-1, CMP, 73079-1 ####[facility] [place] ([id number])[address] [place] [address] Lymphocytes/100 WBC (Bld) 5.3 % Normal [facility] Comment on above: Performed By: #### Belle BCA, 54098-9, CMP, 19583-5 ####[facility] [place] ([id number])[address] [place] [address] MCH (RBC) [Entitic mass] 27.4 pg Normal 27-34 [facility] Comment on above: Performed By: #### C BCA, 38152-7, CMP, 16377-7 ####[facility] [place] ([id number])[address] [place] [address] MCHC (RBC) [Mass/Vol] 30.8 g/dL Low 32-36 [facility] Comment on above: Performed By: #### C BCA, 13588-5, CMP, 24907-9 ####[facility] ([id number])[address] [place] [address] MCV (RBC) [Entitic vol] 89 fL Normal 80-100 [facility] Comment on above: Performed By: #### Belle BCA, 56861-8, CMP, 12468-3 ####[facility] ([id number])[address] [place] [address] Monocytes (Bld) [#/Vol] 1.4 10*3/uL High 0-0.9 [facility] Comment on above: Performed By: #### C BCA, 93150-6, CMP, 87784-1 ####[facility] ([id number])[address] [place] [address] Monocytes/100 WBC (Bld) 8.4 % Normal [facility] Comment on above: Performed By: #### C BCA, 24142-1, CMP, 25315-5 ####[facility] ([id number])[address] [address] Neutrophils/100 WBC (Bld) 84.6 % Normal [facility] Comment on above: Performed By: #### C BCA, 89732-5, CMP, 46780-3 ####[facility] ([id number])[address], [place] [address] Platelet mean volume (Bld) [Entitic vol] 8.2 fL Normal 7-12 [facility] Comment on above: Performed By: #### C BCA, 73055-7, CMP, 77725-3 ####[facility] ([id number])[address] [address] [address] Platelets (Bld) [#/Vol] 173 10*3/uL Normal 150-450 [facility] Comment on above: Performed By: #### C BCA, 89377-4, CMP, 84770-6 ####[facility] ([id number])[address] [address], [place] [address] RBC COUNT 2.72 X10E12/L Low 4.10-5.70 [facility] Comment on above: Performed By: #### C BCA, 05929-9, CMP, 62062-0 ####[facility] ([id number])[address], [place] [address] WBC (Bld) [#/Vol] 16.2 10*3/uL High 4.0-11.0 [facility] Comment on above: Performed By: #### C BCA, 47952-9, CMP, 62778-4 ####[facility] ([id number])[address] [place] [address] COMPREHENSIVE METABOLIC PANE Jonathan 12-04-2024 Albumin [Mass/Vol] 2.3 g/dL Low 3.2-5.3 [facility] Comment on above: Performed By: #### C BCA, CMP, , 2776-11 ####[facility] ([id number])[address], [address], [place] [address] ALP [Catalytic activity/Vol] 63 U/L Normal 39-130 [facility] Comment on above: Performed By: #### C BCA, CMP, , 2776- ####[facility] ([id number])[address], [place] [address] ALT [Catalytic activity/Vol] 4 U/L Normal 0-40 [facility] Comment on above: Performed By: #### C BCA, CMP, , 2776-11 ####[facility] ([id number])[address], [place] [address] Anion gap [Moles/Vol] 12 mmol/L Normal 5-15 [facility] Comment on above: Performed By: #### C BCA, CMP, , 2776-11 ####[facility] ([id number])[address], [place] [address] AST [Catalytic activity/Vol] 8 U/L Normal 0-41 [facility] Comment on above: Performed By: #### C BCA, CMP, , 2776-11 ####[facility] ([id number])[address], [address], [place] [address] Bilirubin [Mass/Vol] 0.4 mg/dL Normal 0.3-1.2 [facility] Comment on above: Performed By: #### C BCA, CMP, , 2776- ####[facility] ([id number])[address], [place] [address] Calcium [Mass/Vol] 7.5 mg/dL Low 8.5-10.5 [facility] Comment on above: Performed By: #### C SEAMUS PAYNE, , 2776-11 ####[facility] ([id number])[address] [address] Chloride [Moles/Vol] 105 mmol/L Normal 98-109 [facility] Comment on above: Performed By: #### C KERRY, CMP, , 2776-11 ####[facility] ([id number])[address] [address] CO2 [Moles/Vol] 25 mmol/L Normal 22-32 [facility] Comment on above: Performed By: #### C SEAMUS PAYNE, , 2776-11 ####[facility] ([id number])[address] [address] Creatinine [Mass/Vol] 4.18 mg/dL High 0.60-1.30 [facility] Comment on above: Result Comment: METH OD TRACEABLE TO IDMS STANDARD Performed By: #### C SEAMUS PAYNE, , 2776-11 ####[facility] ([id number])[address] [address] GFR/1.73 sq M.predicted among non-blacks MDRD (S/P/Bld) [Vol rate/Area] 15 mL/min/{1.73_m2} Low >59 [facility] Comment on above: Result Comment: Repo rted eGFR is based on theCKD-EPI 2020 equation that doesnot use a race coefficient. Performed By: #### C BCA, CMP, , 2776-11 ####[facility] ([id number])[address] [address] [place] [address] Glucose [Mass/Vol] 89 mg/dL Normal 65-99 [facility] [facility] Comment on above: Performed By: #### C BCA, CMP, , 2776-11 ####[facility] ([id number])[address], [place] [address] Potassium [Moles/Vol] 4.0 mmol/L Normal 3.5-5.0 [facility] Comment on above: Performed By: #### C BCA, CMP, , 2776-11 ####[facility] ([id number])[address], [address], [place] [address] Protein [Mass/Vol] 4.9 g/dL Low 6.0-8.0 [facility] Comment on above: Performed By: #### C BCA, CMP, , 2776-11 ####[facility] ([id number])[address], [address], [place] [address] Sodium [Moles/Vol] 142 mmol/L Normal 134-146 [facility] Comment on above: Performed By: #### C BCA, CMP, , 2776-11 ####[facility] ([id number])[address], [address], [place] [address] Urea nitrogen [Mass/Vol] 62 mg/dL High 5-27 [facility] Comment on above: Performed By: #### C BCA, CMP, , 2776-11 ####[facility] ([id number])[address], [address], [place] [address] Albumin [Mass/Vol] 2.4 g/dL Low 3.2-5.3 [facility] Comment on above: Performed By: #### C BCA, 85022-6, CMP, 24332-5 ####[facility] ([id number])[address], [address], [place] [address] ALP [Catalytic activity/Vol] 67 U/L Normal 39-130 [facility] Comment on above: Performed By: #### C BCA, 01922-0, CMP, 17714-0 ####[facility] ([id number])[address], [address], [place] [address] ALT [Catalytic activity/Vol] 3 U/L Normal 0-40 [facility] Comment on above: Performed By: #### C BCA, 22233-0, CMP, 84772-4 ####[facility] ([id number])[address], [address], [place] [address] Anion gap [Moles/Vol] 13 mmol/L Normal 5-15 [facility] Comment on above: Performed By: #### C BCA, 66285-3, CMP, 72864-9 ####[facility] ([id number])[address], [address], [place] [address] AST [Catalytic activity/Vol] 9 U/L Normal 0-41 [facility] Comment on above: Performed By: #### C BCA, 55665-8, CMP, 92279-2 ####[facility] ([id number])[address], [address], [place] [address] Bilirubin [Mass/Vol] 0.4 mg/dL Normal 0.3-1.2 [facility] Comment on above: Performed By: #### C BCA, 69358-5, CMP, 53160-8 ####[facility] ([id number])[address], [place] [address] Calcium [Mass/Vol] 7.3 mg/dL Low 8.5-10.5 [facility] Comment on above: Performed By: #### C BCA, 10654-6, CMP, 37965-8 ####[facility] ([id number])[address], [address], [place] [address] Chloride [Moles/Vol] 104 mmol/L Normal 98-109 [facility] Comment on above: Performed By: #### C BCA, 75620-3, CMP, 13893-7 ####[facility] ([id number])[address], [place] [address] CO2 [Moles/Vol] 24 mmol/L Normal 22-32 [facility] Comment on above: Performed By: #### C BCA, 13319-9, CMP, 63070-5 ####[facility] ([id number])[address] [address] Creatinine [Mass/Vol] 4.24 mg/dL High 0.60-1.30 [facility] Comment on above: Result Comment: METH OD TRACEABLE TO IDMS STANDARD Performed By: #### C BCA, 91887-8, CMP, 70481-5 ####[facility] ([id number])[address], [address] [place] [address] GFR/1.73 sq M.predicted among non-blacks MDRD (S/P/Bld) [Vol rate/Area] 15 mL/min/{1.73_m2} Low >59 [facility] Comment on above: Result Comment: Repo rted eGFR is based on theCKD-EPI 2020 equation that doesnot use a race coefficient. Performed By: #### C BCA, 39078-2, CMP, 16646-4 ####[facility] ([id number])[address], [address], [place] [address] Glucose [Mass/Vol] 84 mg/dL Normal 65-99 [facility] Comment on above: Performed By: #### C BCA, 33841-5, CMP, 76198-2 ####[facility] ([id number])[address], [address], [place] [address] Potassium [Moles/Vol] 3.9 mmol/L Normal 3.5-5.0 [facility] Comment on above: Performed By: #### C BCA, 84652-9, CMP, 68807-7 ####[facility] ([id number])[address], [address] [place] [address] Protein [Mass/Vol] 4.9 g/dL Low 6.0-8.0 [facility] Comment on above: Performed By: #### C BCA, 33924-1, CMP, 35942-6 ####[facility] ([id number])[address], [address] [address] Sodium [Moles/Vol] 141 mmol/L Normal 134-146 [facility] Comment on above: Performed By: #### C BCA, 01085-3, CMP, 13812-8 ####[facility] ([id number])[address], [address] [place] [address] Urea nitrogen [Mass/Vol] 60 mg/dL High 5-27 [facility] Comment on above: Performed By: #### C BCA, 60542-7, CMP, 20298-6 ####[facility] ([id number])[address], [address] [place] [address] Calcium.ionized (Bld) [Mass/ Vol]on 10-06-2024 IONIZED CALCIUM 4.5 mg/dL Normal 4.5-5.3 [facility] Comment on above: Performed By: #### 3 8230-9 ####[facility] ([id number])[address], [address] [place] [address] Glucose Glucometer (BldC) [M ass/Vol]on 10-06-2024 Glucose [Mass/Vol] 99 mg/dL Normal 65-99 [facility] MAGNESIUMon 10-06-2024 Magnesium [Mass/Vol] 1.8 mg/dL Normal 1.8-2.6 [facility] Comment on above: Performed By: #### C BCA, CMP, , 2776-11 ####[facility] ([id number])[address], [address], [place] [address] PHOSPHORUSon 10-06-2024 Phosphate [Mass/Vol] 5.4 mg/dL High 2.4-4.9 [facility] Comment on above: Performed By: #### Belle PAYNE, CMP, , 2776-11 ####[facility] ([id number])[address] [place] [address] Procalcitonin IA [Mass/Vol]o n 10-06-2024 PROCALCITONIN 1.06 ng/mL High <0.05 [facility] Comment on above: Result Comment: NOTE <0.50 ng/mL - Low risk of severe sepsis and/or septic shock.<2.00 ng/mL - Recommend retesting within 6-24 hours.>2.00 ng/mL - High risk of sepsis and/or septic shock. Performed By: #### C BCA, 26780-3, CMP, 35670-0 ####[facility] ([id number])[address] [address] [place] [address] CBC AND AUTO DIFFon 10-05-20 Erythrocyte distribution width (RBC) [Ratio] 18.6 % High 11.5-15.0 [facility] Comment on above: Performed By: #### C KERRY, CMP, , 2776-11 ####[facility] ([id number])[address], [address] [address] Hematocrit (Bld) [Volume fraction] 26.4 % Low 39-49 [facility] Comment on above: Performed By: #### C KERRY, CMP, , 2776-11 ####[facility] ([id number])[address] [address] [place] [address] Hemoglobin (Bld) [Mass/Vol] 8.1 g/dL Low 13.0-17.0 [facility] Comment on above: Performed By: #### C KERRY CMP, , 2776-11 ####[facility] ([id number])[address] [address] Lymphocytes (Bld) [#/Vol] 0.5 10*3/uL Low 1.0-3.5 [facility] Comment on above: Performed By: #### C KERRY CMP, , 2776-11 ####[facility] ([id number])[address] [address] Lymphocytes/100 WBC (Bld) 1.9 % Normal [facility] Comment on above: Performed By: #### Belle PAYNE CMP, , 2776-11 ####[facility] ([id number])[address] [address] MCH (RBC) [Entitic mass] 27.2 pg Normal 27-34 [facility] Comment on above: Performed By: #### C SEAMUS PAYNE, , 2776-11 ####[facility] ([id number])[address], [address] [place] [address] MCHC (RBC) [Mass/Vol] 30.8 g/dL Low 32-36 [facility] Comment on above: Performed By: #### C KERRY CMP, , 2776-11 ####[facility] ([id number])[address], [address] [place] [address] MCV (RBC) [Entitic vol] 88 fL Normal 80-100 [facility] Comment on above: Performed By: #### Belle PAYNE CMP, , 2776-11 ####[facility] ([id number])[address] [address] Monocytes (Bld) [#/Vol] 0.2 10*3/uL Normal 0-0.9 [facility] Comment on above: Performed By: #### C KERRY, CMP, , 2776-11 ####[facility] ([id number])[address] [address] Monocytes/100 WBC (Bld) 1.0 % Normal [facility] Comment on above: Performed By: #### Belle BCA, CMP, , 2776-11 ####[facility] ([id number])[address] [address] Neutrophils (Bld) [#/Vol] 23.2 10*3/uL High 1.5-6.6 [facility] Comment on above: Performed By: #### Belle PAYNE, CMP, , 2776-11 ####[facility] ([id number])[address] [address] Platelet mean volume (Bld) [Entitic vol] 7.9 fL Normal 7-12 [facility] Comment on above: Performed By: #### Belle PAYNE, CMP, , 2776-11 ####[facility] ([id number])[address] [address] Platelets (Bld) [#/Vol] 181 10*3/uL Normal 150-450 [facility] Comment on above: Performed By: #### Belle BCA, CMP, , 2776-11 ####[facility] ([id number])[address] [place] [address] POLYCHROMASIA 1+ Abnormal NONE [facility] Comment on above: Performed By: #### Belle BCA, CMP, , 2776-11 ####[facility] ([id number])[address], [place] [address] RBC COUNT 2.99 X10E12/L Low 4.10-5.70 [facility] Comment on above: Performed By: #### C BCA, CMP, , 2776-11 ####[facility] ([id number])[address], [address], [place] [address] SEG NEUTROPHIL 97.1 % Normal [facility] Comment on above: Performed By: #### C BCA, CMP, , 2776-11 ####[facility] ([id number])[address], [place] [address] WBC (Bld) [#/Vol] 23.9 10*3/uL High 4.0-11.0 [facility] Comment on above: Performed By: #### C BCA, CMP, , 2776-11 ####[facility] ([id number])[address], [address], [place] [address] COMPREHENSIVE METABOLIC PANE Jonathan 10-05-2024 Albumin [Mass/Vol] 2.5 g/dL Low 3.2-5.3 [facility] Comment on above: Performed By: #### C BCA, CMP, , 2776-11 ####[facility] ([id number])[address] [address] [address] ALP [Catalytic activity/Vol] 60 U/L Normal 39-130 [facility] Comment on above: Performed By: #### C BCA, CMP, , 2776-11 ####[facility] ([id number])[address] [address] ALT [Catalytic activity/Vol] 4 U/L Normal 0-40 [facility] Comment on above: Performed By: #### C BCA, CMP, , 2776-11 ####[facility] ([id number])[address], [place] [address] Anion gap [Moles/Vol] 9 mmol/L Normal 5-15 [facility] Comment on above: Performed By: #### C KERRY, CMP, , 2776-11 ####[facility] ([id number])[address], [place] [address] AST [Catalytic activity/Vol] 10 U/L Normal 0-41 [facility] Comment on above: Performed By: #### C BCA, CMP, , 2776-11 ####[facility] ([id number])[address], [place] [address] Bilirubin [Mass/Vol] 0.5 mg/dL Normal 0.3-1.2 [facility] Comment on above: Performed By: #### C BCA, CMP, , 2776-11 ####[facility] ([id number])[address], [place] [address] Calcium [Mass/Vol] 7.6 mg/dL Low 8.5-10.5 [facility] Comment on above: Performed By: #### C BCA, CMP, , 2776-11 ####[facility] ([id number])[address], [place] [address] Chloride [Moles/Vol] 104 mmol/L Normal 98-109 [facility] Comment on above: Performed By: #### C BCA, CMP, , 2776-11 ####[facility] ([id number])[address], [place] [address] CO2 [Moles/Vol] 25 mmol/L Normal 22-32 [facility] Comment on above: Performed By: #### C BCA, CMP, , 2776-11 ####[facility] ([id number])[address], [place] [address] Creatinine [Mass/Vol] 4.09 mg/dL High 0.60-1.30 [facility] Comment on above: Result Comment: METH OD TRACEABLE TO IDMS STANDARD Performed By: #### C SEAMUS PAYNE, , 2776-11 ####[facility] ([id number])[address] [place] [address] GFR/1.73 sq M.predicted among non-blacks MDRD (S/P/Bld) [Vol rate/Area] 15 mL/min/{1.73_m2} Low >59 [facility] Comment on above: Result Comment: Repo rted eGFR is based on theCKD-EPI 2020 equation that doesnot use a race coefficient. Performed By: #### C SEAMUS PAYNE, , 2776-11 ####[facility] ([id number])[address] [address] [place] [address] Glucose [Mass/Vol] 110 mg/dL High 65-99 [facility] Comment on above: Performed By: #### C SEAMUS PAYNE, , 2776-11 ####[facility] ([id number])[address] [address], [place] [address] Potassium [Moles/Vol] 4.2 mmol/L Normal 3.5-5.0 [facility] Comment on above: Performed By: #### C SEAMUS PAYNE, , 2776-11 ####[facility] ([id number])[address] [address] [place] [address] Protein [Mass/Vol] 5.1 g/dL Low 6.0-8.0 [facility] Comment on above: Performed By: #### C SEAMUS PAYNE, , 2776-11 ####[facility] ([id number])[address] [address], [place] [address] Sodium [Moles/Vol] 138 mmol/L Normal 134-146 [facility] Comment on above: Performed By: #### C BCA, CMP, , 2776-1 ####[facility] ([id number])[address], [place] [address] Urea nitrogen [Mass/Vol] 53 mg/dL High 5-27 [facility] Comment on above: Performed By: #### C BCA, CMP, , 2776-11 ####[facility] ([id number])[address] [address] Calcium.ionized (Bld) [Mass/ Vol]on 10-05-2024 IONIZED CALCIUM 4.5 mg/dL Normal 4.5-5.3 [facility] Comment on above: Performed By: #### 3 8230-9 ####[facility] ([id number])[address] [address] MAGNESIUMon 10-05-2024 Magnesium [Mass/Vol] 2.0 mg/dL Normal 1.8-2.6 [facility] Comment on above: Performed By: #### C BCA, CMP, , 2776-11 ####[facility] ([id number])[address], [place] [address] PHOSPHORUSon 10-05-2024 Phosphate [Mass/Vol] 4.7 mg/dL Normal 2.4-4.9 [facility] Comment on above: Performed By: #### C BCA, CMP, , 2777-1 ####[facility] ([id number])[address], [place] [address] ARTERIAL BLOOD GASon 024 NANCY'S TEST Pass Normal [facility] Comment on above: Performed By: #### A BG ####[facility] ([id number])[address] [place] [address] Base excess Calc (Bld) [Moles/Vol] 0.0 mmol/L Normal 0.0-2.0 [facility] Comment on above: Performed By: #### A BG ####[facility] ([id number])[address] [place] [address] Body temperature 98.6 [degF] Normal 37.0 [facility] Comment on above: Performed By: #### A BG ####[facility] ([id number])[address] [place] [address] HCO3 (Bld) [Moles/Vol] 25.6 mmol/L Normal 22-26 [facility] Comment on above: Performed By: #### A BG ####[facility] ([id number])[address] [place] [address] INSP. O2 CONC. 21 % Normal [facility] Comment on above: Performed By: #### A BG ####[facility] ([id number])[address] [place] [address] Oxygen (Bld) [Partial pressure] 72 mm[Hg] Low 80-100 [facility] Comment on above: Performed By: #### A BG ####[facility] ([id number])[address] [place] [address] Oxygen saturation in Blood 94.0 % Normal >90 [facility] Comment on above: Performed By: #### A BG ####[facility] ([id number])[address] [place] [address] OXYGEN SOURCE [facility] Comment on above: Performed By: #### A BG ####[facility] ([id number])[address] [place] [address] PCO2 42.7 MMHG Normal 35-45 [facility] Comment on above: Performed By: #### A BG ####[facility] ([id number])[address] [place] [address] pH (Bld) 7.386 [pH] Normal 7.350-7.450 [facility] Comment on above: Performed By: #### A BG ####[facility] ([id number])[address] [place] [address] SAMPLE SITE RRad Normal [facility] Comment on above: Performed By: #### A BG ####[facility] ([id number])[address] [place] [address] SAMPLE TYPE ARTERIAL Normal [facility] Comment on above: Performed By: #### A BG ####[facility] ([id number])[address] [place] [address] BLOOD CULTUREon 10-04-2024 Bacteria identified Aer cx Nom (Bld) SPECIMEN NOTES SUBOPTIMAL VOLUME OF BLOOD COLLECTED, RESULTS MAY BE AFFECTED. CULTURE RESULTS NO GROWTH 5 DAYS Normal [facility] Comment on above: Performed By: #### 1 7928-3 ####[facility] ([id number])[address] [place] [address] Bacteria identified Aer cx Nom (Bld) SPECIMEN NOTES SUBOPTIMAL VOLUME OF BLOOD COLLECTED, RESULTS MAY BE AFFECTED. CULTURE RESULTS NO GROWTH 5 DAYS Normal [facility] Comment on above: Performed By: #### 1 7928-3 ####[facility] ([id number])[address] [place] [address] CK [Catalytic activity/Vol]o n 10-04-2024 CPK 35 U/L Normal 24-195 [facility] Comment on above: Performed By: #### 2 823-3, 2157-6 ####[facility] ([id number])[address], [place] [address] COMPREHENSIVE METABOLIC PANE Jonathan 10-04-2024 Albumin [Mass/Vol] 2.6 g/dL Low 3.2-5.3 [facility] Comment on above: Performed By: #### C DIANE, , 2776-11 ####[facility] ([id number])[address], [place] [address] ALP [Catalytic activity/Vol] 61 U/L Normal 39-130 [facility] Comment on above: Performed By: #### Belle CONTRERAS, , 2776-11 ####[facility] ([id number])[address], [place] [address] ALT [Catalytic activity/Vol] 5 U/L Normal 0-40 [facility] Comment on above: Performed By: #### C DIANE, , 2776-11 ####[facility] ([id number])[address], [place] [address] Anion gap [Moles/Vol] 12 mmol/L Normal 5-15 [facility] Comment on above: Performed By: #### Belle CONTRERAS, , 2776-11 ####[facility] ([id number])[address], [place] [address] AST [Catalytic activity/Vol] 12 U/L Normal 0-41 [facility] Comment on above: Performed By: #### Belle CONTRERAS, , 2776-11 ####[facility] ([id number])[address], [place] [address] Bilirubin [Mass/Vol] 0.6 mg/dL Normal 0.3-1.2 [facility] Comment on above: Performed By: #### C DIANE, , 2776-11 ####[facility] ([id number])[address], [place] [address] Calcium [Mass/Vol] 7.7 mg/dL Low 8.5-10.5 [facility] Comment on above: Performed By: #### C DIANE, , 2776-11 ####[facility] ([id number])[address] [place] [address] Chloride [Moles/Vol] 106 mmol/L Normal 98-109 [facility] Comment on above: Performed By: #### C DIANE, , 2776-11 ####[facility] ([id number])[address] [place] [place] [address] CO2 [Moles/Vol] 26 mmol/L Normal 22-32 [facility] Comment on above: Performed By: #### Belle CONTRERAS, , 2776-11 ####[facility] ([id number])[address] [address] Creatinine [Mass/Vol] 4.00 mg/dL High 0.60-1.30 [facility] Comment on above: Result Comment: METH OD TRACEABLE TO IDMS STANDARD Performed By: #### Belle CONTRERAS, , 2776-11 ####[facility] ([id number])[address] [address] GFR/1.73 sq M.predicted among non-blacks MDRD (S/P/Bld) [Vol rate/Area] 16 mL/min/{1.73_m2} Low >59 [facility] Comment on above: Result Comment: Repo rted eGFR is based on theCKD-EPI 2020 equation that doesnot use a race coefficient. Performed By: #### Belle CONTRERAS, , 2776-11 ####[facility] ([id number])[address] [address] [place] [place] [address] Glucose [Mass/Vol] 115 mg/dL High 65-99 [facility] Comment on above: Performed By: #### Belle CONTRERAS, , 2776-11 ####[facility] [place] [facility] ([id number])[address] [place] [address] Potassium [Moles/Vol] 3.0 mmol/L Low 3.5-5.0 [facility] Comment on above: Performed By: #### C DIANE, , 2776-11 ####[facility] [place] [facility] ([id number])[address], [place] [address] Protein [Mass/Vol] 5.3 g/dL Low 6.0-8.0 [facility] Comment on above: Performed By: #### C DIANE, , 2776-11 ####[facility] [place] [facility] ([id number])[address], [address] [place] [address] Sodium [Moles/Vol] 144 mmol/L Normal 134-146 [facility] Comment on above: Performed By: #### Belle CONTRERAS, , 2776-11 ####[facility] [place] [facility] ([id number])[address], [address] [place] [address] Urea nitrogen [Mass/Vol] 56 mg/dL High 5-27 [facility] Comment on above: Performed By: #### Belle CONTRERAS, , 2776-11 ####[facility] [place] [facility] ([id number])[address] [address] [place] [address] MAGNESIUMon 10-04-2024 Magnesium [Mass/Vol] 1.8 mg/dL Normal 1.8-2.6 [facility] Comment on above: Performed By: #### C DIANE, , 2776-11 ####[facility] ([id number])[address] [address] [place] [address], [place] [address] Magnesium Ionized ISE (Bld) [Moles/Vol]on 10-04-2024 Magnesium [Moles/Vol] 0.69 mmol/L Normal 0.45-0.74 [facility] Comment on above: Result Comment: NEW REFERENCE RANGE Performed By: #### 7 3572-0 ####[facility] ([id number])[address], [address] [place] [address] PHOSPHORUSon 10-04-2024 Phosphate [Mass/Vol] 4.9 mg/dL Normal 2.4-4.9 [facility] Comment on above: Performed By: #### [place], [address]-2, 2777-1 ####[facility] ([id number])[address], [address] [place] [address] POTASSIUMon 10-04-2024 Potassium [Moles/Vol] 3.7 mmol/L Normal 3.5-5.0 [facility] Comment on above: Performed By: #### 2 823-3, 2157-6 ####[facility] ([id number])[address], [address] [place] [address] AMMONIAon 10-03-2024 Ammonia (P) [Moles/Vol] 20 umol/L Normal 18-72 [facility] Comment on above: Result Comment: NEW REFERENCE RANGE Performed By: #### 1 6362-6 ####[facility] ([id number])[address], [address] [place] [address] ARTERIAL BLOOD GASon 024 NANCY'S TEST Pass Normal [facility] Comment on above: Performed By: #### A BG ####[facility] ([id number])[address] [place] [address] BASE,DEFICIT 2.0 MMOL/L Normal 0.0-2.0 [facility] Comment on above: Performed By: #### A BG ####[facility] ([id number])[address] [place] [address] Body temperature 98.6 [degF] Normal 37.0 [facility] Comment on above: Performed By: #### A BG ####[facility] ([id number])[address] [place] [address] HCO3 (Bld) [Moles/Vol] 25.2 mmol/L Normal 22-26 [facility] Comment on above: Performed By: #### A BG ####[facility] ([id number])[address] [place] [address] INSP. O2 CONC. 100 % Normal [facility] Comment on above: Performed By: #### A BG ####[facility] ([id number])[address] [facility] [place] [address] Oxygen (Bld) [Partial pressure] 183 mm[Hg] High 80-100 [facility] Comment on above: Performed By: #### A BG ####[facility] ([id number])[address] [place] [address] Oxygen saturation in Blood 99.0 % Normal >90 [facility] Comment on above: Performed By: #### A BG ####[facility] ([id number])[address] [place] [place] [address] OXYGEN SOURCE NRB Normal [facility] Comment on above: Performed By: #### A BG ####[facility] ([id number])[address] [place] [place] [address] PCO2 51.7 MMHG High 35-45 [facility] Comment on above: Performed By: #### A BG ####[facility] ([id number])[address] [place] [address] pH (Bld) 7.296 [pH] Low 7.350-7.450 [facility] Comment on above: Performed By: #### A BG ####[facility] ([id number])[address] [place] [address] SAMPLE SITE RRad Normal [facility] Comment on above: Performed By: #### A BG ####[facility] ([id number])[address] [place] [address] SAMPLE TYPE ARTERIAL Normal [facility] Comment on above: Performed By: #### A BG ####[facility] ([id number])[address] [place] [address] CBC AND AUTO DIFFon 10-03-20 24 ABSOLUTE BASOPHIL 0.0 X10E9/L Normal 0.0-0.2 [facility] Comment on above: Performed By: #### C BCA, CMP, 2777-1, 45333-1, 39163-2, 74131- 1 ####[facility] [place] [facility] ([id number])[address], [address] [place] [address] ABSOLUTE NEUTROPHIL 10.7 X10E9/L High 1.5-6.6 [facility] Comment on above: Performed By: #### C BCA, CMP, 2777-1, 11893-4, 23856-0, 07042- 1 ####[facility] [place] [facility] ([id number])[address], [address] [address] Basophils/100 WBC (Bld) 0.3 % Normal [facility] Comment on above: Performed By: #### C BCA, CMP, 2777-1, 53912-9, 08346-3, 38193- 1 ####[facility] [place] [facility] ([id number])[address], [address] [place] [address] Eosinophils (Bld) [#/Vol] 0.2 10*3/uL Normal 0.0-0.4 [facility] Comment on above: Performed By: #### C BCA, CMP, 2777-1, 93092-1, 93534-6, 40212- 1 ####[facility] [place] [facility] ([id number])[address] [address] Eosinophils/100 WBC (Bld) 1.2 % Normal [facility] Comment on above: Performed By: #### C BCA, CMP, 2777-1, 83887-0, 57881-3, 76607- 1 ####[facility] [place] [facility] ([id number])[address] [address] Erythrocyte distribution width (RBC) [Ratio] 17.9 % High 11.5-15.0 [facility] Comment on above: Performed By: #### C BCA, CMP, 2777-1, 57153-4, 69105-9, 26482- 1 ####[facility] [place] [facility] ([id number])[address] [address] Hematocrit (Bld) [Volume fraction] 32.5 % Low 39-49 [facility] Comment on above: Performed By: #### C BCA, CMP, 2777-1, 63189-2, 36212-1, 52195- 1 ####[facility] [place] [facility] ([id number])[address] [address] Hemoglobin (Bld) [Mass/Vol] 10.3 g/dL Low 13.0-17.0 [facility] Comment on above: Performed By: #### C BCA, CMP, 2777-1, 43624-6, 79158-8, 16067- 1 ####[facility] [place] [facility] ([id number])[address] [address] Lymphocytes (Bld) [#/Vol] 1.0 10*3/uL Normal 1.0-3.5 [facility] Comment on above: Performed By: #### C BCA, CMP, 2777-1, 81612-3, 96003-5, 04779- 1 ####[facility] [place] [facility] ([id number])[address] [address] Lymphocytes/100 WBC (Bld) 7.4 % Normal [facility] Comment on above: Performed By: #### C BCA, CMP, 2777-1, 14034-2, 00723-0, 15212- 1 ####[facility] [place] [facility] ([id number])[address] [address] MCH (RBC) [Entitic mass] 27.8 pg Normal 27-34 [facility] Comment on above: Performed By: #### C BCA, CMP, 2777-1, 24151-2, 06881-0, 62806- 1 ####[facility] [place] [facility] ([id number])[address] [address] MCHC (RBC) [Mass/Vol] 31.7 g/dL Low 32-36 [facility] Comment on above: Performed By: #### C BCA, CMP, 2777-1, 61542-9, 79034-3, 33867- 1 ####[facility] [place] [facility] ([id number])[address], [address] [address] MCV (RBC) [Entitic vol] 88 fL Normal 80-100 [facility] Comment on above: Performed By: #### C BCA, CMP, 2777-1, 64057-6, 45905-6, 78447- 1 ####[facility] [place] [facility] ([id number])[address], [address] [place] [address] Monocytes (Bld) [#/Vol] 1.5 10*3/uL High 0-0.9 [facility] Comment on above: Performed By: #### C BCA, CMP, 2777-1, 89639-2, 23655-8, 69682- 1 ####[facility] [place] [facility] ([id number])[address], [address] [place] [address] Monocytes/100 WBC (Bld) 11.3 % Normal [facility] Comment on above: Performed By: #### C BCA, CMP, 2777-1, 15872-5, 50797-1, 26735- 1 ####[facility] [place] ([id number])[address], [place] [address] Neutrophils/100 WBC (Bld) 79.8 % Normal [facility] Comment on above: Performed By: #### C BCA, CMP, 2777-1, 67812-5, 90383-3, 57382- 1 ####[facility] [place] [facility] ([id number])[address], [place] [address] Platelet mean volume (Bld) [Entitic vol] 7.7 fL Normal 7-12 [facility] Comment on above: Performed By: #### C BCA, CMP, 2777-1, 13166-7, 17109-6, 20057- 1 ####[facility] [place] ([id number])[address] [address], [place] [address] Platelets (Bld) [#/Vol] 217 10*3/uL Normal 150-450 [facility] Comment on above: Performed By: #### C BCA, CMP, 2777-1, 33948-5, 76509-3, 09748- 1 ####[facility] [place] ([id number])[address] [address], [place] [address] RBC COUNT 3.71 X10E12/L Low 4.10-5.70 [facility] Comment on above: Performed By: #### C BCA, CMP, 2777-1, 50107-8, 28726-6, 41847- 1 ####[facility] [place] ([id number])[address] [address], [place] [address] WBC (Bld) [#/Vol] 13.4 10*3/uL High 4.0-11.0 [facility] Comment on above: Performed By: #### C BCA, CMP, 2777-1, 95014-8, 46276-3, 64539- 1 ####[facility] [place] [facility] ([id number])[address], [place] [address] COMPREHENSIVE METABOLIC PANE Jonathan 10-03-2024 Albumin [Mass/Vol] 3.0 g/dL Low 3.2-5.3 [facility] Comment on above: Performed By: #### C BCA, CMP, 2777-1, 74730-2, 28307-1, 16424- 1 ####[facility] [place] [facility] ([id number])[address], [address], [place] [address] ALP [Catalytic activity/Vol] 76 U/L Normal 39-130 [facility] Comment on above: Performed By: #### C BCA, CMP, 2777-1, 07771-4, 37098-5, 85065- 1 ####[facility] [place] [facility] ([id number])[address], [address], [place] [address] ALT [Catalytic activity/Vol] 6 U/L Normal 0-40 [facility] Comment on above: Performed By: #### C BCA, CMP, 2777-1, 71859-8, 84969-3, 61863- 1 ####[facility] [place] [facility] ([id number])[address], [address], [place] [address] Anion gap [Moles/Vol] 14 mmol/L Normal 5-15 [facility] Comment on above: Performed By: #### C BCA, CMP, 2777-1, 22316-3, 03804-0, 24451- 1 ####[facility] [place] [facility] ([id number])[address], [address], [place] [address] AST [Catalytic activity/Vol] 13 U/L Normal 0-41 [facility] Comment on above: Performed By: #### C BCA, CMP, 2777-1, 04227-2, 51750-7, 90277- 1 ####[facility] [place] [facility] ([id number])[address], [address], [place] [address] Bilirubin [Mass/Vol] 0.8 mg/dL Normal 0.3-1.2 [facility] Comment on above: Performed By: #### C BCA, CMP, 2777-1, 12669-6, 63624-8, 04576- 1 ####[facility] [place] [facility] ([id number])[address] [address] Calcium [Mass/Vol] 7.8 mg/dL Low 8.5-10.5 [facility] Comment on above: Performed By: #### C BCA, CMP, 2777-1, 10055-5, 45340-8, 00485- 1 ####[facility] [place] [facility] ([id number])[address], [address] [place] [address] Chloride [Moles/Vol] 105 mmol/L Normal 98-109 [facility] Comment on above: Performed By: #### C BCA, CMP, 2777-1, 52090-2, 48896-0, 96703- 1 ####[facility] [place] [facility] ([id number])[address], [address] [place] [address] CO2 [Moles/Vol] 24 mmol/L Normal 22-32 [facility] Comment on above: Performed By: #### C BCA, CMP, 2777-1, 77165-7, 13625-1, 87810- 1 ####[facility] [place] [facility] ([id number])[address], [address] [place] [address] Creatinine [Mass/Vol] 3.83 mg/dL High 0.60-1.30 [facility] Comment on above: Result Comment: METH OD TRACEABLE TO IDMS STANDARD Performed By: #### C BCA, CMP, 2777-1, 18814-4, 16341-9, 15476-8 ####[facility] [place] [facility] ([id number])[address], [address] [place] [address] GFR/1.73 sq M.predicted among non-blacks MDRD (S/P/Bld) [Vol rate/Area] 17 mL/min/{1.73_m2} Low >59 [facility] Comment on above: Result Comment: Repo rted eGFR is based on theCKD-EPI 2020 equation that doesnot use a race coefficient. Performed By: #### C BCA, CMP, 2777-1, 04516-1, 04319-3, 72968-4 ####[facility] [place] [facility] ([id number])[address] [address] Glucose [Mass/Vol] 133 mg/dL High 65-99 [facility] Comment on above: Performed By: #### C BCA, CMP, 2777-1, 90650-8, 55059-1, 31855- 1 ####[facility] [place] ([id number])[address] [address] Potassium [Moles/Vol] 3.5 mmol/L Normal 3.5-5.0 [facility] Comment on above: Performed By: #### C BCA, CMP, 2777-1, 51129-9, 61599-0, 08074- 1 ####[facility] [place] ([id number])[address] [place] [address] Protein [Mass/Vol] 6.2 g/dL Normal 6.0-8.0 [facility] Comment on above: Performed By: #### C BCA, CMP, 2777-1, 26806-8, 17667-5, 75299- 1 ####[facility] [place] ([id number])[address] [place] [place] [address] Sodium [Moles/Vol] 143 mmol/L Normal 134-146 [facility] Comment on above: Performed By: #### C BCA, CMP, 2777-1, 41752-8, 81663-3, 16727- 1 ####[facility] [place] ([id number])[address], [place] [address] Urea nitrogen [Mass/Vol] 55 mg/dL High 5-27 [facility] Comment on above: Performed By: #### C BCA, CMP, 2776-1, 82837-9, 22074-2, 04369- 1 ####[facility] [place] [facility] ([id number])[address], [address], [place] [address] Albumin [Mass/Vol] 2.8 g/dL Low 3.2-5.3 [facility] Comment on above: Performed By: #### C MP, , 2776-11, PINR ####[facility] [place] ([id number])[address], [place] [address] ALP [Catalytic activity/Vol] 71 U/L Normal 39-130 [facility] Comment on above: Performed By: #### C MP, , 2776-11, PINR ####[facility] [place] [facility] ([id number])[address], [place] [address] ALT [Catalytic activity/Vol] 4 U/L Normal 0-40 [facility] Comment on above: Performed By: #### C MP, , 2776-11, PINR ####[facility] [place] [facility] ([id number])[address], [place] [address] Anion gap [Moles/Vol] 15 mmol/L Normal 5-15 [facility] Comment on above: Performed By: #### C MP, 28412-4, 2776-11, PINR ####[facility] [place] ([id number])[address], [place] [address] AST [Catalytic activity/Vol] 12 U/L Normal 0-41 [facility] Comment on above: Performed By: #### C MP, 14483-3, 2776-, PINR ####[facility] [place] [facility] ([id number])[address], [address], [place] [address] Bilirubin [Mass/Vol] 0.7 mg/dL Normal 0.3-1.2 [facility] Comment on above: Performed By: #### C DIANE, , 2776-11, PINR ####[facility] [place] [facility] ([id number])[address], [address], [place] [address] Calcium [Mass/Vol] 8.1 mg/dL Low 8.5-10.5 [facility] Comment on above: Performed By: #### C DIANE, , 2776-11, PINR ####[facility] [place] [facility] ([id number])[address], [address], [place] [address] Chloride [Moles/Vol] 107 mmol/L Normal 98-109 [facility] Comment on above: Performed By: #### C DIANE, , 2776-11, PINR ####[facility] [place] [facility] ([id number])[address] [address] [address] CO2 [Moles/Vol] 25 mmol/L Normal 22-32 [facility] Comment on above: Performed By: #### Belle CONTRERAS, , 2776-11, PINR ####[facility] [place] [facility] ([id number])[address] [address], [place] [address] Creatinine [Mass/Vol] 3.44 mg/dL High 0.60-1.30 [facility] Comment on above: Result Comment: METH OD TRACEABLE TO IDMS STANDARD Performed By: #### C DIANE, , 2776-11, PINR ####[facility] [place] ([id number])[address], [address], [place] [address] GFR/1.73 sq M.predicted among non-blacks MDRD (S/P/Bld) [Vol rate/Area] 19 mL/min/{1.73_m2} Low >59 [facility] Comment on above: Result Comment: Repo rted eGFR is based on theCKD-EPI 2020 equation that doesnot use a race coefficient. Performed By: #### C DIANE, , 2776-11, PINR ####[facility] [place] [facility] ([id number])[address], [place] [address] Glucose [Mass/Vol] 100 mg/dL High 65-99 [facility] Comment on above: Performed By: #### C DIANE, , 2776-11, PINR ####[facility] [place] [facility] ([id number])[address], [place] [address] Potassium [Moles/Vol] 3.4 mmol/L Low 3.5-5.0 [facility] Comment on above: Performed By: #### C DIANE, , 2776-11, PINR ####[facility] [place] [facility] ([id number])[address], [place] [address] Protein [Mass/Vol] 5.7 g/dL Low 6.0-8.0 [facility] Comment on above: Performed By: #### C DIANE, , 2776-11, PINR ####[facility] [place] ([id number])[address], [place] [address] Sodium [Moles/Vol] 147 mmol/L High 134-146 [facility] Comment on above: Performed By: #### C DIANE, , 2776-11, PINR ####[facility] [place] [facility] ([id number])[address], [place] [address] Urea nitrogen [Mass/Vol] 48 mg/dL High 5-27 [facility] Comment on above: Performed By: #### C DIANE, , 2776-11, PINR ####[facility] [place] [facility] ([id number])[address] [address] [address] CONT[address] BRAIN WO CONT Normal [facility] Glucose Glucometer (BldC) [M ass/Vol]on 10-03-2024 Glucose [Mass/Vol] 144 mg/dL High 65-99 [facility] Glucose [Mass/Vol] 135 mg/dL High 65-99 [facility] Lactate (P oc) [Moles/Vol]o n 10-03-2024 LACTATE W/REFLEX 2.0 mmol/L Normal 0.4-2.0 [facility] Comment on above: Result Comment: Resu lt did not trigger repeat Lactate,re-order if needed. Performed By: #### C SEAMUS PAYNE, 2777-1, 99354-7, 36363-1, 89163-0 ####[facility] ([id number])[address], [address] [place] [address] MAGNESIUMon 10-03-2024 Magnesium [Mass/Vol] 1.9 mg/dL Normal 1.8-2.6 [facility] Comment on above: Performed By: #### C MP, 99316-2, 2777-1, GRAHAM ####[facility] [place] [facility] ([id number])[address], [address] [place] [address] MR ANKLE LT WO CONTon 2023 MR ANKLE LT WO CONT Normal [facility]-2024 Phosphate [Mass/Vol] 4.8 mg/dL Normal 2.4-4.9 [facility] Comment on above: Performed By: #### C KERRY, CMP, 2777-1, 57282-2, 93604-6, 50373- 1 ####[facility] ([id number])[address], [place] [address] Phosphate [Mass/Vol] 4.1 mg/dL Normal 2.4-4.9 [facility] Comment on above: Performed By: #### C , 65851-2, 277-, PINR ####[facility] ([id number])[address] [place] [address] PROTIME AND INRon 10-03-2024 INR Coag (PPP) [Relative time] 1.3 {INR} High 0.8-1.1 [facility] Comment on above: Performed By: #### C , 47428-7, 2776-, PINR ####[facility] ([id number])[address] [place] [address] PT Coag (PPP) [Time] 15.1 s High 9.8-13.2 [facility] Comment on above: Performed By: #### C , , 2776-, PINR ####[facility] ([id number])[address] [address] [place] [address] Procalcitonin IA [Mass/Vol]o n 10-03-2024 PROCALCITONIN 0.66 ng/mL High <0.05 [facility] Comment on above: Result Comment: NOTE <0.50 ng/mL - Low risk of severe sepsis and/or septic shock.<2.00 ng/mL - Recommend retesting within 6-24 hours.>2.00 ng/mL - High risk of sepsis and/or septic shock. Performed By: #### C BCA, CMP, 2777-1, 88940-2, 35743-9, 80617-1 ####[facility] ([id number])[address] [address] [place] [address] Troponin I.cardiac High sens itivity method [Mass/Vol]on 10-03-2024 3 HOUR TROP I, HIGH SENSITIVITY 59 ng/L High <21 [facility] Comment on above: Result Comment: Elev ations of hs-Troponin may be due to causesother than myocardial ischemia.Recommend serial hs-Troponin testing be performed.For the initial evaluation and management of chestpain patients, refer to the algorithms linked below.Emergency Patient:[email or web address] Performed By: #### C BCA, CMP, 2777-1, 95634-2, 79480-9, 97286-2 ####[facility] ([id number])[address] [address] Vancomycin [Mass/Vol]on VANCOMYCIN 31.6 ug/mL Normal 5.0-40.0 [facility] Comment on above: Result Comment: Peak 30-40 ug/mLTrough 5-20 ug/ml Performed By: #### 2 0578-1 ####[facility] ([id number])[address] [place] [address] XR CHEST 1 VWon 10-03-2024 XR CHEST 1 VW Normal [facility] COMPREHENSIVE METABOLIC PANE Jonathan 10-02-2024 Albumin [Mass/Vol] 3.0 g/dL Low 3.2-5.3 [facility] Comment on above: Performed By: #### C MP, 46676-7, 2776-1, 85879-8, PINR ####[facility] ([id number])[address], [address] [place] [address] ALP [Catalytic activity/Vol] 73 U/L Normal 39-130 [facility] Comment on above: Performed By: #### C MP, 20731-7, 2776-1, 37435-8, PINR ####[facility] ([id number])[address], [place] [address] ALT [Catalytic activity/Vol] 6 U/L Normal 0-40 [facility] Comment on above: Performed By: #### C DIANE, , 2776-11, , PINR ####[facility] ([id number])[address], [place] [address] Anion gap [Moles/Vol] 10 mmol/L Normal 5-15 [facility] Comment on above: Performed By: #### C DIANE, , 2776-11, , PINR ####[facility] [place] ([id number])[address], [place] [address] AST [Catalytic activity/Vol] 14 U/L Normal 0-41 [facility] Comment on above: Performed By: #### C DIANE, , 2776-11, , PINR ####[facility] [place] [facility] ([id number])[address], [place] [address] Bilirubin [Mass/Vol] 0.8 mg/dL Normal 0.3-1.2 [facility] Comment on above: Performed By: #### C DIANE, , 2776-11, , PINR ####[facility] [place] [facility] ([id number])[address], [place] [address] Calcium [Mass/Vol] 8.4 mg/dL Low 8.5-10.5 [facility] Comment on above: Performed By: #### C DIANE, , 2776-11, , PINR ####[facility] [place] [facility] ([id number])[address], [place] [address] Chloride [Moles/Vol] 108 mmol/L Normal 98-109 [facility] Comment on above: Performed By: #### C DIANE, , 2776-11, , PINR ####[facility] [place] [facility] ([id number])[address] [address] [place] [address] CO2 [Moles/Vol] 25 mmol/L Normal 22-32 [facility] Comment on above: Performed By: #### C DIANE, , 2776-11, , PINR ####[facility] [place] ([id number])[address] [address] [place] [place] [address] Creatinine [Mass/Vol] 3.12 mg/dL High 0.60-1.30 [facility] Comment on above: Result Comment: METH OD TRACEABLE TO IDMS STANDARD Performed By: #### C DIANE, , 2776-11, , PINR ####[facility] ([id number])[address] [address] GFR/1.73 sq M.predicted among non-blacks MDRD (S/P/Bld) [Vol rate/Area] 21 mL/min/{1.73_m2} Low >59 [facility] Comment on above: Result Comment: Repo rted eGFR is based on theCKD-EPI 2020 equation that doesnot use a race coefficient. Performed By: #### C DIANE, , 2776-11, , PINR ####[facility] ([id number])[address] [address] [place] [place] [address] Glucose [Mass/Vol] 95 mg/dL Normal 65-99 [facility] Comment on above: Performed By: #### C DIANE, , 2776-11, , PINR ####[facility] ([id number])[address] [address] [address] Potassium [Moles/Vol] 3.8 mmol/L Normal 3.5-5.0 [facility] Comment on above: Performed By: #### C DIANE, 11689-1, 2776-11, 84199-6, PINR ####[facility] ([id number])[address], [place] [address] Protein [Mass/Vol] 5.9 g/dL Low 6.0-8.0 [facility] Comment on above: Performed By: #### C DIANE, , 2776-11, , PINR ####[facility] ([id number])[address], [place] [address] Sodium [Moles/Vol] 143 mmol/L Normal 134-146 [facility] Comment on above: Performed By: #### C DIANE, , 2776-11, , PINR ####[facility] ([id number])[address], [place] [address] Urea nitrogen [Mass/Vol] 47 mg/dL High 5-27 [facility] Comment on above: Performed By: #### C DIANE, , 2776-11, , PINR ####[facility] ([id number])[address], [place] [address] ELECTROLYTESon 10-02-2024 Anion gap [Moles/Vol] 15 mmol/L Normal 5-15 [facility] Comment on above: Performed By: #### E LEC ####[facility] ([id number])[address], [place] [address] Chloride [Moles/Vol] 106 mmol/L Normal 98-109 [facility] Comment on above: Performed By: #### E LEC ####[facility] ([id number])[address], [place] [address] CO2 [Moles/Vol] 24 mmol/L Normal 22-32 [facility] Comment on above: Performed By: #### E LEC ####[facility] ([id number])[address], [place] [address] Potassium [Moles/Vol] 3.5 mmol/L Normal 3.5-5.0 [facility] Comment on above: Performed By: #### E LEC ####[facility] ([id number])[address], [place] [address] Sodium [Moles/Vol] 145 mmol/L Normal 134-146 [facility] Comment on above: Performed By: #### E LEC ####[facility] ([id number])[address], [place] [address] Glucose Glucometer (BldC) [M ass/Vol]on 10-02-2024 Glucose [Mass/Vol] 96 mg/dL Normal 65-99 [facility] MAGNESIUMon 10-02-2024 Magnesium [Mass/Vol] 2.1 mg/dL Normal 1.8-2.6 [facility] Comment on above: Performed By: #### C DIANE, , 2776-11, , PINR ####[facility] ([id number])[address], [place] [address] PHOSPHORUSon 10-02-2024 Phosphate [Mass/Vol] 4.2 mg/dL Normal 2.4-4.9 [facility] Comment on above: Performed By: #### C DIANE, , 2776-11, , PINR ####[facility] ([id number])[address] [address], [place] [address] PROTIME AND INRon 10-02-2024 INR Coag (PPP) [Relative time] 1.3 {INR} High 0.8-1.1 [facility] Comment on above: Performed By: #### C DIANE, , 2776-11, , PINR ####[facility] [place] [facility] ([id number])[address], [address] [place] [address] PT Coag (PPP) [Time] 15.1 s High 9.8-13.2 [facility] Comment on above: Performed By: #### [place], [address]-0, 2776-11, , PINR ####[facility] [place] [facility] ([id number])[address], [address] [place] [address] Vancomycin [Mass/Vol]on 09-05 VANCOMYCIN 35.7 ug/mL Normal 5.0-40.0 [facility] Comment on above: Result Comment: Peak 30-40 ug/mLTrough 5-20 ug/ml Performed By: #### C MP, , 2776-11, , PINR ####[facility] [place] [facility] ([id number])[address], [address] [place] [address] XR CALCANEOUS LT MIN 2 VWSon 10-02-2024 XR CALCANEOUS LT MIN 2 VWS Normal [facility] COMPLETE BLOOD COUNTon 10-01 Erythrocyte distribution width (RBC) [Ratio] 18.3 % High 11.5-15.0 [facility] Comment on above: Performed By: #### C BC, CMP, , 2776-11, PINR, 4679-7 ####[facility] [place] [facility] ([id number])[address] [address] [place] [address] Hematocrit (Bld) [Volume fraction] 29.0 % Low 39-49 [facility] Comment on above: Performed By: #### C BC, CMP, , 2776-11, PINR, 4679-7 ####[facility] [place] [facility] ([id number])[address], [address] [place] [address] Hemoglobin (Bld) [Mass/Vol] 9.3 g/dL Low 13.0-17.0 [facility] Comment on above: Performed By: #### C BC, CMP, 80633-6, 2777-1, PINR, 4679-7 ####[facility] [place] [facility] ([id number])[address], [address] [place] [address] MCH (RBC) [Entitic mass] 28.5 pg Normal 27-34 [facility] Comment on above: Performed By: #### C BC, CMP, 18298-3, 7-, PINR, 4679-7 ####[facility] [place] [facility] ([id number])[address], [address] [place] [address] MCHC (RBC) [Mass/Vol] 32.1 g/dL Normal 32-36 [facility] Comment on above: Performed By: #### Belle BC, CMP, 19316-1, 2776-1, PINR, 4679-7 ####[facility] [place] [facility] ([id number])[address] [address] [place] [address] MCV (RBC) [Entitic vol] 89 fL Normal 80-100 [facility] Comment on above: Performed By: #### Belle BC, CMP, 65449-9, 2777-1, PINR, 4679-7 ####[facility] [place] [facility] ([id number])[address], [address] [place] [address] Platelet mean volume (Bld) [Entitic vol] 8.0 fL Normal 7-12 [facility] Comment on above: Performed By: #### C BC, CMP, 28169-6, 2777-1, PINR, 4679-7 ####[facility] [place] [facility] ([id number])[address], [address] [place] [address] Platelets (Bld) [#/Vol] 145 10*3/uL Low 150-450 [facility] Comment on above: Performed By: #### C BC, CMP, 09098-0, 2777-1, PINR, 4679-7 ####[facility] [place] [facility] ([id number])[address], [address] [place] [place] [address] RBC COUNT 3.27 X10E12/L Low 4.10-5.70 [facility] Comment on above: Performed By: #### C BC, CMP, 25936-5, 7-1, PINR, 4679-7 ####[facility] [place] [facility] ([id number])[address], [address] [address] WBC (Bld) [#/Vol] 10.7 10*3/uL Normal 4.0-11.0 [facility] Comment on above: Performed By: #### C BC, CMP, 56068-5, 2776-1, PINR, 4679-7 ####[facility] [place] [facility] ([id number])[address], [address] [place] [address] COMPREHENSIVE METABOLIC PANE Jonathan 10-01-2024 Albumin [Mass/Vol] 2.7 g/dL Low 3.2-5.3 [facility] Comment on above: Performed By: #### C BC, CMP, 45589-9, 2776-1, PINR, 4679-7 ####[facility] [place] [facility] ([id number])[address], [address] [place] [address] ALP [Catalytic activity/Vol] 78 U/L Normal 39-130 [facility] Comment on above: Performed By: #### C BC, CMP, 93929-2, 2777-1, PINR, 4679-7 ####[facility] [place] [facility] ([id number])[address], [address] [place] [address] ALT [Catalytic activity/Vol] 9 U/L Normal 0-40 [facility] Comment on above: Performed By: #### C BC, CMP, 62759-7, 2777-1, PINR, 4679-7 ####[facility] [place] [facility] ([id number])[address], [address], [place] [address] Anion gap [Moles/Vol] 18 mmol/L High 5-15 [facility] Comment on above: Performed By: #### C BC, CMP, 05860-1, 2777-1, PINR, 4679-7 ####[facility] [place] [facility] ([id number])[address], [address], [place] [address] AST [Catalytic activity/Vol] 14 U/L Normal 0-41 [facility] Comment on above: Performed By: #### C BC, CMP, 47779-8, 2777-1, PINR, 4679-7 ####[facility] [place] [facility] ([id number])[address], [address], [place] [address] Bilirubin [Mass/Vol] 0.7 mg/dL Normal 0.3-1.2 [facility] Comment on above: Performed By: #### C BC, CMP, 18080-8, 2777-1, PINR, 4679-7 ####[facility] [place] [facility] ([id number])[address], [address], [place] [address] Calcium [Mass/Vol] 8.2 mg/dL Low 8.5-10.5 [facility] Comment on above: Performed By: #### C BC, CMP, 79634-8, 2777-1, PINR, 4679-7 ####[facility] [place] [facility] ([id number])[address], [address], [place] [address] Chloride [Moles/Vol] 105 mmol/L Normal 98-109 [facility] Comment on above: Performed By: #### C BC, CMP, 03369-3, 2777-1, PINR, 4679-7 ####[facility] [place] [facility] ([id number])[address], [address], [place] [address] CO2 [Moles/Vol] 20 mmol/L Low 22-32 [facility] Comment on above: Performed By: #### C BC, CMP, , 2776-1, PINR, 4679-7 ####[facility] [place] [facility] ([id number])[address], [address] [place] [address] Creatinine [Mass/Vol] 3.10 mg/dL High 0.60-1.30 [facility] Comment on above: Result Comment: METH OD TRACEABLE TO IDMS STANDARD Performed By: #### C CHARLEY, SEAMUS, , 2776-, PINR, 4679-7 ####[facility] [place] [facility] ([id number])[address] [address] [address] GFR/1.73 sq M.predicted among non-blacks MDRD (S/P/Bld) [Vol rate/Area] 21 mL/min/{1.73_m2} Low >59 [facility] Comment on above: Result Comment: Repo rted eGFR is based on theCKD-EPI 2020 equation that doesnot use a race coefficient. Performed By: #### C BC, CMP, , 2776-, PINR, 4679-7 ####[facility] [place] [facility] ([id number])[address] [address], [place] [address] Glucose [Mass/Vol] 84 mg/dL Normal 65-99 [facility] Comment on above: Performed By: #### C BC, CMP, 10180-5, 2776-1, PINR, 4679-7 ####[facility] [place] [facility] ([id number])[address] [address] [place] [address] Potassium [Moles/Vol] 4.0 mmol/L Normal 3.5-5.0 [facility] Comment on above: Performed By: #### C BC, CMP, 39322-6, 2776-1, PINR, 4679-7 ####[facility] [place] [facility] ([id number])[address], [address], [place] [address] Protein [Mass/Vol] 5.8 g/dL Low 6.0-8.0 [facility] Comment on above: Performed By: #### C BC, CMP, 90163-4, 2777-1, PINR, 4679-7 ####[facility] [place] [facility] ([id number])[address], [address], [place] [address] Sodium [Moles/Vol] 143 mmol/L Normal 134-146 [facility] Comment on above: Performed By: #### C BC, CMP, 62638-2, 2777-1, PINR, 4679-7 ####[facility] [place] [facility] ([id number])[address], [address] [address] Urea nitrogen [Mass/Vol] 53 mg/dL High 5-27 [facility] Comment on above: Performed By: #### C BC, CMP, 88657-3, 2777-1, PINR, 4679-7 ####[facility] [place] [facility] ([id number])[address], [address], [place] [address] IRON PROFILEon 10-01-2024 Iron [Mass/Vol] 29 ug/dL Low 50-212 [facility] Comment on above: Performed By: #### F EPR ####[facility] [place] [facility] ([id number])[address], [address], [place] [address] IRON BINDING 118 ug/dL Low 250-425 [facility] Comment on above: Performed By: #### F EPR ####[facility] [place] [facility] ([id number])[address], [address], [place] [address] IRON SATURATION 25 % SATURATION Normal 20-50 [facility] Comment on above: Performed By: #### F EPR ####[facility] [place] [facility] ([id number])[address], [address] [place] [address] Lactate (P oc) [Moles/Vol]o n 10-01-2024 LACTATE W/REFLEX 1.3 mmol/L Normal 0.4-2.0 [facility] Comment on above: Result Comment: Resu lt did not trigger repeat Lactate,re-order if needed. Performed By: #### 3 2132-1 ####[facility] [place] [facility] ([id number])[address], [address], [place] [address] MAGNESIUMon 10-01-2024 Magnesium [Mass/Vol] 2.2 mg/dL Normal 1.8-2.6 [facility] Comment on above: Performed By: #### Belle [place], SEAMUS, , 2776-11, PINR, 4679-7 ####[facility] [place] [facility] ([id number])[address] [place] [address] PHOSPHORUSon 10-01-2024 Phosphate [Mass/Vol] 4.0 mg/dL Normal 2.4-4.9 [facility] Comment on above: Performed By: #### Belle [place], CMP, , 2776-11, PINR, 4679-7 ####[facility] [place] [facility] ([id number])[address] [place] [address] PROTIME AND INRon 10-01-2024 INR Coag (PPP) [Relative time] 1.4 {INR} High 0.8-1.1 [facility] Comment on above: Performed By: #### Belle BC, CMP, , 2776-11, PINR, 4679-7 ####[facility] [place] [facility] ([id number])[address], [address] [place] [place] [address] PT Coag (PPP) [Time] 15.7 s High 9.8-13.2 [facility] Comment on above: Performed By: #### Belle BC, CMP, , 2776-11, PINR, 4679-7 ####[facility] [place] [facility] ([id number])[address] [address] [address] Reticulocytes/100 RBC (Bld)o n 10-01-2024 RETICULOCYTE COUNT 1.2 % Normal 0.4-2.2 [facility] Comment on above: Performed By: #### Belle [place], CMP, , 2776-11, PINR, 4679-7 ####[facility] [place] [facility] ([id number])[address] [address] Vancomycin [Mass/Vol]on 09-04 VANCOMYCIN 27.2 ug/mL Normal 5.0-40.0 [facility] Comment on above: Result Comment: Peak 30-40 ug/mLTrough 5-20 ug/ml Performed By: #### 2 0578-1 ####[facility] [place] [facility] ([id number])[address] [address] COMPLETE BLOOD COUNTon 09-30 Erythrocyte distribution width (RBC) [Ratio] 18.0 % High 11.5-15.0 [facility] Comment on above: Performed By: #### C CHARLEY, PINR, SEAMUS, , 2776-11, ####[facility] [place] [facility] ([id number])[address] [address] Hematocrit (Bld) [Volume fraction] 26.1 % Low 39-49 [facility] Comment on above: Performed By: #### KLARISSA DEER, SEAMUS, , 2776-11, ####[facility] [place] [facility] ([id number])[address] [address] [address] Hemoglobin (Bld) [Mass/Vol] 8.4 g/dL Low 13.0-17.0 [facility] Comment on above: Performed By: #### C BC, PINR, CMP, , 2776-11, ####[facility] [place] [facility] ([id number])[address], [address] [place] [address] MCH (RBC) [Entitic mass] 28.6 pg Normal 27-34 [facility] Comment on above: Performed By: #### C BC, PINR, CMP, , 2776-11, ####[facility] [place] [facility] ([id number])[address] [address] [place] [address] MCHC (RBC) [Mass/Vol] 32.2 g/dL Normal 32-36 [facility] Comment on above: Performed By: #### C BC, PINR, CMP, , 2776-11, ####[facility] [place] [facility] ([id number])[address] [address] [place] [address] MCV (RBC) [Entitic vol] 89 fL Normal 80-100 [facility] Comment on above: Performed By: #### C BC, PINR, CMP, , 2776-11, ####[facility] [place] [facility] ([id number])[address] [address] [place] [address] Platelet mean volume (Bld) [Entitic vol] 7.9 fL Normal 7-12 [facility] Comment on above: Performed By: #### C BC, PINR, CMP, , 2776-11, ####[facility] [place] [facility] ([id number])[address] [address] Platelets (Bld) [#/Vol] 126 10*3/uL Low 150-450 [facility] Comment on above: Performed By: #### C BC, PINR, CMP, , 2776-11, ####[facility] [place] [facility] ([id number])[address] [address] RBC COUNT 2.94 X10E12/L Low 4.10-5.70 [facility] Comment on above: Performed By: #### C BC, PINR, CMP, 43922-1, 2776-11, ####[facility] [place] [facility] ([id number])[address], [address] [place] [address] WBC (Bld) [#/Vol] 14.4 10*3/uL High 4.0-11.0 [facility] Comment on above: Performed By: #### C BC, PINR, CMP, , 2776-11, ####[facility] [place] [facility] ([id number])[address], [address] [place] [address] COMPREHENSIVE METABOLIC PANE [facility] 09-30-2024 Albumin [Mass/Vol] 2.6 g/dL Low 3.2-5.3 [facility] Comment on above: Performed By: #### C BC, PINR, CMP, , 2776-11, ####[facility] [place] [facility] ([id number])[address], [address] [place] [address] ALP [Catalytic activity/Vol] 69 U/L Normal 39-130 [facility] Comment on above: Performed By: #### C BC, PINR, CMP, 22709-8, 2776-11, ####[facility] [place] [facility] ([id number])[address], [address] [place] [address] ALT [Catalytic activity/Vol] 8 U/L Normal 0-40 [facility] Comment on above: Performed By: #### C BC, PINR, CMP, 14721-2, 2776-11, 65963-8 ####[facility] [place] [facility] ([id number])[address], [address], [place] [address] Anion gap [Moles/Vol] 12 mmol/L Normal 5-15 [facility] Comment on above: Performed By: #### C BC, PINR, CMP, , 2776-11, ####[facility] [place] [facility] ([id number])[address], [address], [place] [address] AST [Catalytic activity/Vol] 13 U/L Normal 0-41 [facility] Comment on above: Performed By: #### C BC, PINR, CMP, , 2776-11, ####[facility] [place] [facility] ([id number])[address], [address], [place] [address] Bilirubin [Mass/Vol] 0.7 mg/dL Normal 0.3-1.2 [facility] Comment on above: Performed By: #### C BC, PINR, CMP, , 2776-11, ####[facility] [place] [facility] ([id number])[address], [address], [place] [address] Calcium [Mass/Vol] 7.8 mg/dL Low 8.5-10.5 [facility] Comment on above: Performed By: #### C BC, PINR, CMP, , 2776-11, ####[facility] [place] [facility] ([id number])[address], [address], [place] [address] Chloride [Moles/Vol] 103 mmol/L Normal 98-109 [facility] Comment on above: Performed By: #### C BC, PINR, CMP, , 2776-11, ####[facility] [place] [facility] ([id number])[address], [address], [place] [address] CO2 [Moles/Vol] 25 mmol/L Normal 22-32 [facility] Comment on above: Performed By: #### C BC, PINR, CMP, , 2776-11, ####[facility] [place] [facility] ([id number])[address] [address] [address] Creatinine [Mass/Vol] 2.76 mg/dL High 0.60-1.30 [facility] Comment on above: Result Comment: METH OD TRACEABLE TO IDMS STANDARD Performed By: #### C BC, PINR, CMP, , 2776-11, ####[facility] [place] [facility] ([id number])[address] [address] GFR/1.73 sq M.predicted among non-blacks MDRD (S/P/Bld) [Vol rate/Area] 25 mL/min/{1.73_m2} Low >59 [facility] Comment on above: Result Comment: Repo rted eGFR is based on theCKD-EPI 2020 equation that doesnot use a race coefficient. Performed By: #### C BC, PINR, CMP, , 2776-11, ####[facility] [place] [facility] ([id number])[address] [address] [address] Glucose [Mass/Vol] 99 mg/dL Normal 65-99 [facility] Comment on above: Performed By: #### C BC, PINR, CMP, , 2776-11, ####[facility] [place] [facility] ([id number])[address] [address], [place] [address] Potassium [Moles/Vol] 3.9 mmol/L Normal 3.5-5.0 [facility] Comment on above: Performed By: #### C BC, PINR, CMP, , 2776-11, ####[facility] [place] [facility] ([id number])[address] [address], [place] [address] Protein [Mass/Vol] 5.3 g/dL Low 6.0-8.0 [facility] Comment on above: Performed By: #### C BC, PINR, CMP, , 2776-11, ####[facility] [place] [facility] ([id number])[address], [place] [address] Sodium [Moles/Vol] 140 mmol/L Normal 134-146 [facility] Comment on above: Performed By: #### C BC, PINR, CMP, , 2776-11, ####[facility] [place] [facility] ([id number])[address], [place] [address] Urea nitrogen [Mass/Vol] 54 mg/dL High 5-27 [facility] Comment on above: Performed By: #### C BC, PINR, CMP, , 2776-11, ####[facility] [place] [facility] ([id number])[address] [address], [place] [address] Calcium.ionized (Bld) [Mass/ Vol]on 09-30-2024 IONIZED CALCIUM 4.5 mg/dL Normal 4.5-5.3 [facility] Comment on above: Performed By: #### 3 8230-9 ####[facility] [place] [facility] ([id number])[address], [place] [address] MAGNESIUMon 09-30-2024 Magnesium [Mass/Vol] 2.4 mg/dL Normal 1.8-2.6 [facility] Comment on above: Performed By: #### C BC, PINR, CMP, , 2776-11, ####[facility] [place] [facility] ([id number])[address] [place] [address] Magnesium Ionized ISE (Bld) [Moles/Vol]on 09-30-2024 Magnesium [Moles/Vol] 0.68 mmol/L Normal 0.45-0.74 [facility] Comment on above: Result Comment: NEW REFERENCE RANGE Performed By: #### 7 3572-0 ####[facility] [place] [facility] ([id number])[address], [place] [address] PHOSPHORUSon 09-30-2024 Phosphate [Mass/Vol] 3.5 mg/dL Normal 2.4-4.9 [facility] Comment on above: Performed By: #### C BC, PINR, CMP, 78582-1, 2776-11, 52881-8 ####[facility] [place] [facility] ([id number])[address], [place] [address] PROTIME AND INRon 09-30-2024 INR Coag (PPP) [Relative time] 1.4 {INR} High 0.8-1.1 [facility] Comment on above: Performed By: #### C BC, PINR, CMP, 96291-0, 2776-11, 59113-3 ####[facility] [place] [facility] ([id number])[address] [place] [address] PT Coag (PPP) [Time] 16.1 s High 9.8-13.2 [facility] Comment on above: Performed By: #### C BC, PINR, CMP, 06689-2, 2776-11, 32072-5 ####[facility] [place] [facility] ([id number])[address] [place] [address] Vancomycin [Mass/Vol]on 09-04 VANCOMYCIN 16.2 ug/mL Normal 5.0-40.0 [facility] Comment on above: Result Comment: Peak 30-40 ug/mLTrough 5-20 ug/ml Performed By: #### C BC, PINR, CMP, , 2776-11, 46315-5 ####[facility] [place] [facility] ([id number])[address] [place] [address] AMMONIAon 09-29-2024 Ammonia (P) [Moles/Vol] 45 umol/L Normal 18-72 [facility] Comment on above: Result Comment: NEW REFERENCE RANGE Performed By: #### 1 6362-6 ####[facility] [place] [facility] ([id number])[address] [place] [address] ARTERIAL BLOOD GASon 024 NANCY'S TEST Pass Normal [facility] Comment on above: Performed By: #### A BG ####[facility] ([id number])[address] [place] [address] BASE,DEFICIT 18.0 MMOL/L High 0.0-2.0 [facility] Comment on above: Performed By: #### A BG ####[facility] ([id number])[address] [facility] [place] [address] Body temperature 91.76 [degF] Low 37.0 [facility] Comment on above: Performed By: #### A BG ####[facility] ([id number])[address] [facility] [place] [address] HCO3 (Bld) [Moles/Vol] 10.8 mmol/L Low 22-26 [facility] Comment on above: Performed By: #### A BG ####[facility] ([id number])[address] [place] [address] INSP. O2 CONC. 21 % Normal [facility] Comment on above: Performed By: #### A BG ####[facility] ([id number])[address] [place] [address] Oxygen (Bld) [Partial pressure] 99 mm[Hg] Normal 80-100 [facility] Comment on above: Performed By: #### A BG ####[facility] ([id number])[address] [facility] [place] [address] Oxygen saturation in Blood 94.0 % Normal >90 [facility] Comment on above: Performed By: #### A BG ####[facility] ([id number])[address] [place] [address] OXYGEN SOURCE [facility] Comment on above: Performed By: #### A BG ####[facility] ([id number])[address] [facility] [place] [address] PCO2 37.0 [facility] Normal 35-45 [facility] Comment on above: Performed By: #### A BG ####[facility] ([id number])[address] [place] [address] PCO2 DANN. FOR TEMP 31.4 MM[facility] Comment on above: Performed By: #### A BG ####[facility] ([id number])[address] [facility] [place] [address] pH (Bld) 7.072 [pH] Critically low 7.350-7.450 [facility] Comment on above: Performed By: #### A BG ####[facility] ([id number])[address] [place] [address] PH DANN. FOR TEMP 7.120 Normal [facility] Comment on above: Performed By: #### A BG ####[facility] ([id number])[address] [facility] [place] [address] PO2 DANN. FOR TEMP 79 [facility] Comment on above: Performed By: #### A BG ####[facility] ([id number])[address] [facility] [place] [address] SAMPLE SITE [employer] [facility] Comment on above: Performed By: #### A BG ####[facility] ([id number])[address] [place] [address] SAMPLE TYPE ARTERIAL Normal [facility] Comment on above: Performed By: #### A BG ####[facility] ([id number])[address] [place] [address] BASIC METABOLIC PANLon 09-29 Anion gap [Moles/Vol] 15 mmol/L Normal 5-15 [facility] Comment on above: Performed By: #### 3 3-1, 96775-2, PINR, BMP, 91571-9, 2777- 1, 3251-6 ####[facility] [place] [facility] ([id number])[address], [place] [address] Calcium [Mass/Vol] 7.8 mg/dL Low 8.5-10.5 [facility] Comment on above: Performed By: #### 3 3-1, 08326-3, PINR, BMP, 03172-9, 7- 1, 3251-6 ####[facility] [place] ([id number])[address], [address] [place] [address] Chloride [Moles/Vol] 119 mmol/L High 98-109 [facility] Comment on above: Performed By: #### 3 3-1, 53140-8, PINR, BMP, 56982-0, 2776- 1, 3251-6 ####[facility] ([id number])[address] [place] [address] CO2 [Moles/Vol] 14 mmol/L Low 22-32 [facility] Comment on above: Performed By: #### 3 3-1, 19189-5, PINR, BMP, 42203-5, 2777- 1, 3251-6 ####[facility] ([id number])[address] [facility] [address] Creatinine [Mass/Vol] 5.26 mg/dL High 0.60-1.30 [facility] Comment on above: Result Comment: METH OD TRACEABLE TO IDMS STANDARD Performed By: #### 3 3-1, 86682-8, PINR, BMP, 89636-8, 7-1, 325-6 ####[facility] ([id number])[address], [address] [place] [address] GFR/1.73 sq M.predicted among non-blacks MDRD (S/P/Bld) [Vol rate/Area] 11 mL/min/{1.73_m2} Low >59 [facility] Comment on above: Result Comment: Repo rted eGFR is based on theCKD-EPI 2020 equation that doesnot use a race coefficient. Performed By: #### 3 2132-1, 48621-2, PINR, BMP, 53156-6, 2776-1, 325-6 ####[facility] ([id number])[address], [address] [place] [address] Glucose [Mass/Vol] 103 mg/dL High 65-99 [facility] Comment on above: Performed By: #### 3 2132-1, 38359-5, PINR, BMP, 80134-0, 2776- 1, 325-6 ####[facility] ([id number])[address], [address] [place] [address] Potassium [Moles/Vol] 4.0 mmol/L Normal 3.5-5.0 [facility] Comment on above: Performed By: #### 3 3-1, 84413-0, PINR, BMP, 29196-3, 7- 1, 3251-6 ####[facility] ([id number])[address], [address] [place] [address] Sodium [Moles/Vol] 148 mmol/L High 134-146 [facility] Comment on above: Performed By: #### 3 3-1, 49500-9, PINR, BMP, , 2776- 1, 3251-6 ####[facility] ([id number])[address] [address] [place] [address] Urea nitrogen [Mass/Vol] 125 mg/dL High 5-27 [facility] Comment on above: Performed By: #### 3 3-1, 23838-2, PINR, BMP, , 2776- , 3251-6 ####[facility] ([id number])[address] [address] [place] [address] COMPLETE BLOOD COUNTon 09-29 Erythrocyte distribution width (RBC) [Ratio] 18.5 % High 11.5-15.0 [facility] Comment on above: Performed By: #### C CHARLEY CMP, 1990-03, , 80693-1, 4679-7, 2132-07, 2283-8 ####[facility] ([id number])[address] [address] [place] [address] Hematocrit (Bld) [Volume fraction] 28.7 % Low 39-49 [facility] Comment on above: Performed By: #### C CHARLEY, CMP, 1990-03, , 72509-4, 4679-7, 9, 2283-8 ####[facility] ([id number])[address] [address] Hemoglobin (Bld) [Mass/Vol] 8.9 g/dL Low 13.0-17.0 [facility] Comment on above: Performed By: #### C BC, CMP, 1988-03, , 46389-3, 4679-7, 2132-07, 8 ####[facility] ([id number])[address] [address] [place] [address] MCH (RBC) [Entitic mass] 28.7 pg Normal 27-34 [facility] Comment on above: Performed By: #### C CHARLEY, [facility], 1990-03, 26011-7, 37295-7, 4679-7, 2132-07, 2284-06 ####[facility] ([id number])[address], [address] [address] MCHC (RBC) [Mass/Vol] 31.2 g/dL Low 32-36 [facility] Comment on above: Performed By: #### C CHARLEY, [facility], 1990-03, , 42705-1, 4679-7, 9, 2284-06 ####[facility] ([id number])[address], [address] [address] MCV (RBC) [Entitic vol] 92 fL Normal 80-100 [facility] Comment on above: Performed By: #### C CHARLEY, [facility], 1990-03, , 79739-6, 4679-7, 2132-07, 2284-06 ####[facility] ([id number])[address], [address] [address] Platelet mean volume (Bld) [Entitic vol] 7.9 fL Normal 7-12 [facility] Comment on above: Performed By: #### Belle WHITEHEAD, [facility], 1990-03, , 22552-6, 79-7, 2132-07, 2284-06 ####[facility] ([id number])[address], [address] [address] Platelets (Bld) [#/Vol] 96 10*3/uL Low 150-450 [facility] Comment on above: Performed By: #### Belle WHITEHEAD, [facility], 1990-03, , 25338-0, 4679-7, 9, 2284-06 ####[facility] ([id number])[address], [address], [place] [address] RBC COUNT 3.12 X10E12/L Low 4.10-5.70 [facility] Comment on above: Performed By: #### C BC, CMP, 1990-03, , 55159-0, 4679-7, 2132-07, 2284-06 ####[facility] ([id number])[address], [address] [address] WBC (Bld) [#/Vol] 5.9 10*3/uL Normal 4.0-11.0 [facility] Comment on above: Performed By: #### C BC, CMP, 1990-03, , 24601-5, 4679-7, 2132-07, 2284-06 ####[facility] ([id number])[address], [address] [address] COMPREHENSIVE METABOLIC PANE [facility] 09-29-2024 Albumin [Mass/Vol] 2.6 g/dL Low 3.2-5.3 [facility] Comment on above: Performed By: #### C BC, [facility], 1990-03, , 89425-9, 4679-7, 2132-07, 2284-06 ####[facility] ([id number])[address], [address] [address] ALP [Catalytic activity/Vol] 75 U/L Normal 39-130 [facility] Comment on above: Performed By: #### C BC, CMP, 1988-03, , 44415-4, 4679-7, 9, 2284-06 ####[facility] ([id number])[address], [address] [address] ALT [Catalytic activity/Vol] 4 U/L Normal 0-40 [facility] Comment on above: Performed By: #### Belle BC, CMP, 1988-03, , 77409-4, 4679-7, 2132-07, 2284-06 ####[facility] ([id number])[address], [address], [place] [address] Anion gap [Moles/Vol] 15 mmol/L Normal 5-15 [facility] Comment on above: Performed By: #### Belle WHITEHEAD, CMP, 1990-03, , 84447-7, 4679-7, 9, 2284-06 ####[facility] ([id number])[address], [address], [place] [address] AST [Catalytic activity/Vol] 13 U/L Normal 0-41 [facility] Comment on above: Performed By: #### Belle WHITEHEAD, CMP, 1990-03, , 70322-1, 4679-7, 2132-07, 2284-06 ####[facility] ([id number])[address], [address] [place] [address] Bilirubin [Mass/Vol] 0.4 mg/dL Normal 0.3-1.2 [facility] Comment on above: Performed By: #### Belle WHITEHEAD, CMP, 1990-03, , 46398-1, 4679-7, 2132-07, 2284-06 ####[facility] ([id number])[address] [place] [address] Calcium [Mass/Vol] 7.8 mg/dL Low 8.5-10.5 [facility] Comment on above: Performed By: #### Belle WHITEHEAD, CMP, 1990-03, , 42223-6, 4679-7, 2132-07, 2284-06 ####[facility] ([id number])[address], [address], [place] [address] Chloride [Moles/Vol] 121 mmol/L High 98-109 [facility] Comment on above: Performed By: #### Belle BC, CMP, 1988-03, , 83994-8, 4679-7, 9, 2284-06 ####[facility] ([id number])[address], [address] [place] [address] CO2 [Moles/Vol] 8 mmol/L Critically low 22-32 [facility] Comment on above: Performed By: #### C SEAMUS WHITEHEAD, 1990-03, , 60930-6, 4679-7, 9, 2284-06 ####[facility] ([id number])[address] [facility] [address] [place] [address] Creatinine [Mass/Vol] 5.31 mg/dL High 0.60-1.30 [facility] Comment on above: Result Comment: METH OD TRACEABLE TO IDMS STANDARD Performed By: #### C SEAMUS WHITEHEAD, 1990-03, , 54536-5, 79-7, 2132-07, 2284-06 ####[facility] ([id number])[address] [facility] [address] [place] [address] GFR/1.73 sq M.predicted among non-blacks MDRD (S/P/Bld) [Vol rate/Area] 11 mL/min/{1.73_m2} Low >59 [facility] Comment on above: Result Comment: Repo rted eGFR is based on theCKD-EPI 2020 equation that doesnot use a race coefficient. Performed By: #### C SEAMUS WHITEHEAD, 1990-03, , 21846-1, 4678-7, 2132-07, 2284-06 ####[facility] ([id number])[address], [address] [place] [address] Glucose [Mass/Vol] 118 mg/dL High 65-99 [facility] Comment on above: Performed By: #### C SEAMUS WHITEHEAD, 1990-03, , 10893-9, 4679-7, 9, 2284-06 ####[facility] ([id number])[address], [address], [place] [address] Potassium [Moles/Vol] 4.3 mmol/L Normal 3.5-5.0 [facility] Comment on above: Performed By: #### Belle WHITEHEAD, [facility], 1988-03, , 00219-6, 4679-7, 2132-07, 8 ####[facility] ([id number])[address], [address], [place] [address] Protein [Mass/Vol] 5.3 g/dL Low 6.0-8.0 [facility] Comment on above: Performed By: #### Belle WHITEHEAD [facility], 1990-03, , 53596-6, 4679-7, 2132-07, 2284-06 ####[facility] ([id number])[address] [place] [place] [address] Sodium [Moles/Vol] 144 mmol/L Normal 134-146 [facility] Comment on above: Performed By: #### Belle WHITEHEAD, [facility], 1988-03, , 58560-2, 4679-7, 2132-07, 2284-06 ####[facility] ([id number])[address] [address] Urea nitrogen [Mass/Vol] 125 mg/dL High 03-29 [facility] Comment on above: Performed By: #### Belle WHITEHEAD, CMP, 1990-03, , 57917-3, 4679-7, 2132-07, 2284-06 ####[facility] ([id number])[address], [address], [place] [address] CRP [Mass/Vol]on 09-29-2024 C REACTIVE PROTEIN 2.2 mg/dL High 0.000-0.744 [facility] Comment on above: Performed By: #### Belle WHITEHEAD CMP, 1988-03, , 02273-0, 4679-7, 2131-9, 2284-8 ####[facility] ([id number])[address], [place] [address] ELECTROLYTESon 09-29-2024 Anion gap [Moles/Vol] 15 mmol/L Normal 5-15 [facility] Comment on above: Performed By: #### E LEC, , 2776-11 ####[facility] ([id number])[address], [address], [place] [address] Chloride [Moles/Vol] 102 mmol/L Normal 98-109 [facility] Comment on above: Performed By: #### E LEC, , 1 ####[facility] ([id number])[address], [address], [place] [address] CO2 [Moles/Vol] 25 mmol/L Normal 22-32 [facility] Comment on above: Performed By: #### E LEC, , 2776-11 ####[facility] ([id number])[address], [address], [place] [address] Potassium [Moles/Vol] 3.4 mmol/L Low 3.5-5.0 [facility] Comment on above: Performed By: #### E LEC, , 2776-11 ####[facility] ([id number])[address], [address], [place] [address] Sodium [Moles/Vol] 142 mmol/L Normal 134-146 [facility] Comment on above: Performed By: #### E LEC, , 2776-11 ####[facility] ([id number])[address], [address], [place] [address] Fibrin+Fibrinogen fragments LA Qn (PPP)on 09-29-2024 FIBRIN SPLIT PRODUCT 5-20 H Critically abnormal <5 [facility] Comment on above: Performed By: #### 3 2133-1, 85328-4, PINR, BMP, 79304-7, 7- 1, 3251-6 ####[facility] ([id number])[address] [facility], [address] [place] [address] Fibrinogen Coagulation.deriv ed (PPP) [Mass/Vol]on 09-29-2024 FIBRINOGEN 384 mg/dL Normal 190-480 [facility] Comment on above: Performed By: #### 3 3-1, 42447-0, PINR, BMP, 25735-9, 2776- 1, 3251-6 ####[facility] ([id number])[address] [facility], [address] [place] [address] Folate [Mass/Vol]on 09-29-20 24 FOLIC ACID 17.6 ng/mL Normal >5.8 [facility] Comment on above: Result Comment: NEW REFERENCE RANGE Performed By: #### C BC, CMP, 1987-, 10407-8, 56375-6, 4679-7, 2131-9, 4-8 ####[facility] ([id number])[address] [facility], [address] [place] [address] Glucose Glucometer (BldC) [M ass/Vol]on 09-29-2024 Glucose [Mass/Vol] 101 mg/dL High 65-99 [facility] HBV core Ab IA Qlon 09-29-20 24 ANTI HBc Negative Normal NEG [facility] Comment on above: Performed By: #### 1 3952-7, 5193-8, 5196-1, 33988-0 ####[facility] ([id number])[address] [facility], [address] [place] [address] HBV surface Ab IA Qnon 09-29 Anti HBs quant. <8.00 Normal [facility] Comment on above: Result Comment: Vacc inated: >=12mIU/mL, Positive (Immune)Unvaccinated: <8mIU/mL, Negative (Not Immune)8-11.99 mIU/mL: Indeterminate,(Considered Not Immune) Performed By: #### 1 3952-7, 5193-8, 5196-1, 64998-0 ####[facility] ([id number])[address], [address] [place] [address] HBV surface Ag IA [facility] 09-29 HEPATITIS B SURF AG Negative Normal NEG [facility] Comment on above: Performed By: #### 1 3952-7, 5193-8, 5196-1, 48176-3 ####[facility] ([id number])[address], [address] [place] [address] HCV Ab IA [facility] 09-29-2024 ANTI HCV W/PCR REFLX Non-Reactive Normal NRCT [facility] Comment on above: Result Comment: If r ecent infection suspected, recommendrepeat testing (>2 months).Ivnyoo-nd-qpegie ratio is <0.80. Performed By: #### 1 3952-7, 5193-8, 5196-1, 39435-0 ####[facility] ([id number])[address], [address] [place] [address] Lactate (P oc) [Moles/Vol]o 09-29-2024 LACTATE W/REFLEX 3.2 mmol/L High 0.4-2.0 [facility] Comment on above: Performed By: #### 3 2133-1, 13297-4, PINR, BMP, 17231-3, 2777- 1, 3251-6 ####[facility] ([id number])[address], [address] [place] [address] LACTATE W/REFLEX 0.5 mmol/L Normal 0.4-2.0 [facility] Comment on above: Result Comment: Resu lt did not trigger repeat Lactate,re-order if needed. Performed By: #### 3 2133-1 ####[facility] ([id number])[address], [address], [place] [address] MAGNESIUMon 09-29-2024 Magnesium [Mass/Vol] 1.4 mg/dL Low 1.8-2.6 [facility] Comment on above: Performed By: #### E LEC, , 2776-11 ####[facility] ([id number])[address], [address], [place] [address] Magnesium [Mass/Vol] 1.6 mg/dL Low 1.8-2.6 [facility] Comment on above: Performed By: #### 3 3-1, 57982-4, PINR, BMP, , , 3251-6 ####[facility] ([id number])[address], [address], [place] [address] Magnesium [Mass/Vol] 1.7 mg/dL Low 1.8-2.6 [facility] Comment on above: Performed By: #### C BC, CMP, 1987-, , 53032-6, 4679-7, 2132-07, 4-8 ####[facility] ([id number])[address], [address], [place] [address] Natriuretic peptide B [Mass/ Vol]on 09-29-2024 Natriuretic peptide B (Bld) [Mass/Vol] 472 pg/mL High <100.0 [facility] Comment on above: Performed By: #### 3 0934-4 ####[facility] ([id number])[address], [address], [place] [address] PHOSPHORUSon 09-29-2024 Phosphate [Mass/Vol] 3.0 mg/dL Normal 2.4-4.9 [facility] Comment on above: Performed By: #### E LEC, , 1 ####[facility] ([id number])[address] [place] [address] Phosphate [Mass/Vol] 8.3 mg/dL High 2.4-4.9 [facility] Comment on above: Performed By: #### 3 3-1, 01337-1, PINR, BMP, , , 3250-6 ####[facility] ([id number])[address], [address] [address] PROTIME AND INRon 09-29-2024 INR Coag (PPP) [Relative time] 1.2 {INR} High 0.8-1.1 [facility] Comment on above: Performed By: #### 3 2132-1, 09137-4, PINR, BMP, , , 3250- ####[facility] ([id number])[address], [address] [place] [address] PT Coag (PPP) [Time] 14.2 s High 9.8-13.2 [facility] Comment on above: Performed By: #### 3 2132-1, 83465-0, PINR, BMP, , , 32511-08 ####[facility] ([id number])[address], [address] [place] [address] Procalcitonin IA [Mass/Vol]o n 09-29-2024 PROCALCITONIN 0.38 ng/mL High <0.05 [facility] Comment on above: Result Comment: NOTE <0.50 ng/mL - Low risk of severe sepsis and/or septic shock.<2.00 ng/mL - Recommend retesting within 6-24 hours.>2.00 ng/mL - High risk of sepsis and/or septic shock. Performed By: #### C BC, CMP, 1987-, , 80821-7, 4679-7, 2131-9, 4-8 ####[facility] ([id number])[address], [address], [place] [address] Protein (U) [Mass/Vol]on RANDOM URINE PROTEIN 2150 mg/L High <120 [facility] Comment on above: Performed By: #### 2 955-3, 2888-6 ####[facility] ([id number])[address], [address], [place] [address] Reticulocytes/100 RBC (Bld)o n 09-29-2024 RETICULOCYTE COUNT 2.6 % High 0.4-2.2 [facility] Comment on above: Performed By: #### C BC, CMP, 1987-, 98847-1, 27695-5, 4679-7, 2132-07, 2284-06 ####[facility] ([id number])[address], [place] [address] URINALYSISon 09-29-2024 Bilirubin Ql (U) Negative Normal NEG [facility] Comment on above: Performed By: #### U A ####[facility] ([id number])[address], [place] [address] BLOOD/HGB Large Abnormal NEG [facility] Comment on above: Performed By: #### U A ####[facility] ([id number])[address], [place] [address] Color (U) YELLOW Normal YELLOW [facility] Comment on above: Performed By: #### U A ####[facility] ([id number])[address], [address], [place] [address] Glucose Ql (U) Negative Normal NEG [facility] Comment on above: Performed By: #### U A ####[facility] ([id number])[address], [place] [address] Ketones Ql (U) Negative Normal NEG [facility] Comment on above: Performed By: #### U A ####[facility] ([id number])[address] [address] [address] Leukocyte esterase Test strip Ql (U) Large Abnormal NEG [facility] Comment on above: Performed By: #### U A ####[facility] ([id number])[address] [address], [place] [address] Nitrite Ql (U) Negative Normal NEG [facility] Comment on above: Performed By: #### U A ####[facility] ([id number])[address] [address] [address] pH (U) 6.0 [pH] Normal 5.0-8.5 [facility] Comment on above: Performed By: #### U A ####[facility] ([id number])[address] [address] [place] [address] Protein Ql (U) 100 mg/dL Abnormal NEG [facility] Comment on above: Performed By: #### U A ####[facility] ([id number])[address] [address] [place] [address] R.B.CELLS 93 /hpf High 0-5 [facility] Comment on above: Performed By: #### U A ####[facility] ([id number])[address] [address] [place] [address] Specific gravity (U) [Rel density] 1.013 Normal 1.003-1.035 [facility] Comment on above: Performed By: #### U A ####[facility] ([id number])[address] [address] [place] [address] SQUAMOUS EPITHELIUM 1 /hpf Normal 0-5 [facility] Comment on above: Performed By: #### U A ####[facility] ([id number])[address] [address] [place] [address] TURBIDITY CLOUDY Abnormal CLEAR [facility] Comment on above: Performed By: #### U A ####[facility] ([id number])[address] [address] Urobilinogen (U) [Mass/Vol] mg/dL Normal <1.1 [facility] Comment on above: Performed By: #### U A ####[facility] ([id number])[address] [address] [place] [address] W.B.CELLS >720 High 0-5 [facility] Comment on above: Performed By: #### U A ####[facility] ([id number])[address] [address] WBC CLUMPS MANY Abnormal NONE [facility] Comment on above: Performed By: #### U A ####[facility] ([id number])[address] [address] URINE CULTUREon 09-29-2024 Bacteria identified Cx Nom (U) CULTURE RESULTS 50-100,000 ORGANISMS/ML NORMAL UROGENITAL MAGALYS Normal [facility] Comment on above: Performed By: #### 6 30-4 ####[facility] ([id number])[address] [address] URINE SODIUM,RANDOMon 2023 Sodium (U) [Moles/Vol] 79 mmol/L Normal [facility] Comment on above: Performed By: #### 2 955-3, 2888-6 ####[facility] ([id number])[address] [address] VENOUS BLOOD GASon NANCY'S TEST Normal [facility] Comment on above: Performed By: #### V BG ####[facility] ([id number])[address] [place] [address] Base excess Calc (Bld) [Moles/Vol] 4.0 mmol/L High 0.0-2.0 [facility] Comment on above: Performed By: #### V BG ####[facility] ([id number])[address] [place] [address] Body temperature 98.6 [degF] Normal 37.0 [facility] Comment on above: Performed By: #### V BG ####[facility] ([id number])[address] [place] [address] HCO3 (Bld) [Moles/Vol] 26.7 mmol/L High 20.0-24.0 [facility] Comment on above: Performed By: #### V BG ####[facility] ([id number])[address] [place] [address] INSP. O2 CONC. 28 % Normal [facility] Comment on above: Performed By: #### V BG ####[facility] ([id number])[address] [place] [address] Oxygen saturation in Blood 79.0 % Low >80.0 [facility] Comment on above: Performed By: #### V BG ####[facility] ([id number])[address] [place] [address] OXYGEN SOURCE NC Normal [facility] Comment on above: Performed By: #### V BG ####[facility] ([id number])[address] [place] [address] PCO2, VENOUS 34.0 [facility] Low 35-50 [facility] Comment on above: Performed By: #### V BG ####[facility] ([id number])[address] [place] [address] PH, VENOUS 7.502 High 7.320-7.420 [facility] Comment on above: Performed By: #### V BG ####[facility] ([id number])[address] [place] [address] PO2, VENOUS 39 MM[facility] Normal 30-50 [facility] Comment on above: Performed By: #### V BG ####[facility] ([id number])[address] [place] [address] SAMPLE SITE [facility] Normal [facility] Comment on above: Performed By: #### V BG ####[facility] ([id number])[address] [place] [address] SAMPLE TYPE VENOUS Normal [facility] Comment on above: Performed By: #### V BG ####[facility] ([address] [place] [address])[address] [place] [address] NANCY'S TEST Normal [facility] Comment on above: Performed By: #### V BG ####[facility] ([id number])[address] [place] [address] BASE,DEFICIT 15.0 MMOL/L High 0.0-2.0 [facility] Comment on above: Performed By: #### V BG ####[facility] ([address] [place] [address])[address] [place] [address] Body temperature 98.6 [degF] Normal 37.0 [facility] Comment on above: Performed By: #### V BG ####[facility] ([id number])[address] [place] [address] HCO3 (Bld) [Moles/Vol] 13.2 mmol/L Low 20.0-24.0 [facility] Comment on above: Performed By: #### V BG ####[facility] ([id number])[address] [place] [address] INSP. O2 CONC. 28 % Normal [facility] Comment on above: Performed By: #### V BG ####[facility] ([id number])[address] [place] [address] Oxygen saturation in Blood 78.0 % Low >80.0 [facility] Comment on above: Performed By: #### V BG ####[facility] ([id number])[address] [place] [address] OXYGEN SOURCE NC Normal [facility] Comment on above: Performed By: #### V BG ####[facility] ([id number])[address] [place] [address] PCO2, VENOUS 40.4 MM[facility] Normal 35-50 [facility] Comment on above: Performed By: #### V BG ####[facility] ([id number])[address] [place] [address] PH, VENOUS 7.123 Low 7.320-7.420 [facility] Comment on above: Performed By: #### V BG ####[facility] ([id number])[address] [place] [address] PO2, VENOUS 56 MM[facility] High 30-50 [facility] Comment on above: Performed By: #### V BG ####[facility] ([id number])[address] [place] [address] SAMPLE SITE [facility] Comment on above: Performed By: #### V BG ####[facility] ([id number])[address] [place] [address] SAMPLE TYPE VENOUS Normal [facility] [facility] Comment on above: Performed By: #### V BG ####[facility] ([id number])[address] [place] [address] NANCY'S TEST Normal [facility] Comment on above: Performed By: #### V BG ####[facility] ([id number])[address] [place] [address] BASE,DEFICIT 19.0 MMOL/L High 0.0-2.0 [facility] Comment on above: Performed By: #### V BG ####[facility] ([id number])[address] [place] [address] Body temperature 98.6 [degF] Normal 37.0 [facility] Comment on above: Performed By: #### V BG ####[facility] ([id number])[address] [place] [address] HCO3 (Bld) [Moles/Vol] 8.8 mmol/L Low 20.0-24.0 [facility] Comment on above: Performed By: #### V BG ####[facility] ([id number])[address]141 [place] [address] INSP. O2 CONC. 21 % Normal [facility] Comment on above: Performed By: #### V BG ####[facility] ([id number])[address] [place] [address] Oxygen saturation in Blood 96.0 % Normal >80.0 [facility] Comment on above: Performed By: #### V BG ####[facility] ([id number])[address] [place] [address] OXYGEN SOURCE RoomAir Normal [facility] Comment on above: Performed By: #### V BG ####[facility] ([id number])[address] [place] [address] PCO2, VENOUS 25.9 MMHG Low 35-50 [facility] Comment on above: Performed By: #### V BG ####[facility] ([id number])[address] [place] [address] PH, VENOUS 7.142 Low 7.320-7.420 [facility] Comment on above: Performed By: #### V BG ####[facility] ([id number])[address] [facility] [place] [address] PO2, VENOUS 106 MMHG High 30-50 [facility] Comment on above: Performed By: #### V BG ####[facility] ([id number])[address]141 [place] [address] SAMPLE SITE N/A [facility] Comment on above: Performed By: #### V BG ####[facility] ([id number])[address] [place] [address] SAMPLE TYPE VENOUS Normal [facility] Comment on above: Performed By: #### V BG ####[facility] ([id number])[address] [place] [address] VITAMIN B12on 09-29-2024 Cobalamin (Vitamin B12) [Mass/Vol] 701 pg/mL Normal 180-914 [facility] Comment on above: Performed By: #### C BC, [facility], 1989-, 70084-2, 72154-3, 4679-7, 2131-9, 2283-8 ####[facility] ([id number])[address] [facility] [address] [place] [address] Vancomycin [Mass/Vol]on 09-04 VANCOMYCIN 7.4 ug/mL Normal 5.0-40.0 [facility] Comment on above: Result Comment: Peak 30-40 ug/mLTrough 5-20 ug/ml Performed By: #### 2 0578-1 ####[facility] ([id number])[address], [address] [place] [address] XR CHEST 1 VWon 09-29-2024 XR CHEST 1 VW Normal [facility] BLOOD CULTUREon 09-28-2024 Bacteria identified Aer cx Nom (Bld) SPECIMEN NOTES ONLY AEROBIC BOTTLE RECEIVED, SUBOPTIMAL VOLUME OF BLOOD COLLECTED, RESULTS MAY BE AFFECTED CULTURE RESULTS NO GROWTH 5 DAYS Normal [facility] Comment on above: Performed By: #### 1 7928-3 ####[facility] ([id number])[address] [address] [address] Bacteria identified Aer cx Nom (Bld) SPECIMEN NOTES ONLY AEROBIC BOTTLE RECEIVED, SUBOPTIMAL VOLUME OF BLOOD COLLECTED, RESULTS MAY BE AFFECTED CULTURE RESULTS NO GROWTH 5 DAYS Normal [facility] Comment on above: Performed By: #### 1 7928-3 ####[facility] ([id number])[address], [address] [address] COMPLETE BLOOD COUNTon 09-28 Erythrocyte distribution width (RBC) [Ratio] 19.5 % High 11.5-15.0 [facility] Comment on above: Performed By: #### P INR, 03645-1, CBC ####[facility] ([id number])[address] [address], [place] [address] Hematocrit (Bld) [Volume fraction] 27.1 % Low 39-49 [facility] Comment on above: Performed By: #### P INR, 17704-8, CBC ####[facility] ([id number])0 [address] [address], [place] [address] Hemoglobin (Bld) [Mass/Vol] 8.1 g/dL Low 13.0-17.0 [facility] Comment on above: Performed By: #### P INR, 16041-5, CBC ####[facility] ([id number])[address] [address], [place] [address] MCH (RBC) [Entitic mass] 28.5 pg Normal 27-34 [facility] Comment on above: Performed By: #### P INR, 81233-7, CBC ####[facility] ([id number])[address], [address], [place] [address] MCHC (RBC) [Mass/Vol] 30.0 g/dL Low 32-36 [facility] Comment on above: Performed By: #### P INR, 66150-4, CBC ####[facility] ([id number])[address], [address] [place] [address] MCV (RBC) [Entitic vol] 95 fL Normal 80-100 [facility] Comment on above: Performed By: #### P INR, 87953-8, CBC ####[facility] ([id number])0 [address] [address] [place] [address] Platelet mean volume (Bld) [Entitic vol] 8.1 fL Normal 7-12 [facility] Comment on above: Performed By: #### P INR, 15782-1, CBC ####[facility] ([id number])[address] [address] [place] [address] Platelets (Bld) [#/Vol] 106 10*3/uL Low 150-450 [facility] Comment on above: Performed By: #### P INR, 89963-0, CBC ####[facility] ([id number])[address] [address] [place] [address] RBC COUNT 2.86 X10E12/L Low 4.10-5.70 [facility] Comment on above: Performed By: #### P INR, 37249-7, CBC ####[facility] ([id number])[address] [address] WBC (Bld) [#/Vol] 6.3 10*3/uL Normal 4.0-11.0 [facility] Comment on above: Performed By: #### P INR, 22640-0, CBC ####[facility] ([id number])[address] [address] [place] [address] PROTIME AND INRon 09-28-2024 INR Coag (PPP) [Relative time] 1.2 {INR} High 0.8-1.1 [facility] Comment on above: Performed By: #### P INR, 90567-1, CBC ####[facility] ([id number])[address], [address] [place] [address] PT Coag (PPP) [Time] 14.2 s High 9.8-13.2 [facility] Comment on above: Performed By: #### P INR, 43804-6, CBC ####[facility] ([id number])[address], [address] [place] [address] SUPERFICIAL WOUND CULTUREon 09-28-2024 Bacteria identified Aer cx Nom (Wound) Susceptible [facility] Comment on above: Performed By: #### 6 32-0 ####[facility] ([id number])[address], [address] [place] [address] Troponin I.cardiac High sens itivity method [Mass/Vol]on 09-28-2024 TROPONIN I, HIGH SENSITIVITY 9 ng/L Normal <21 [facility] Comment on above: Performed By: #### P INR, 39703-1, CBC ####[facility] ([id number])[address], [address] [place] [address] XR CHEST 1 VWon 09-28-2024 XR CHEST 1 VW Normal [facility] BASIC METABOLIC PANLon 09-08 Anion gap [Moles/Vol] 14 mmol/L Normal 5-15 [facility] Comment on above: Performed By: #### C BCA, BMP, , 2776-11 ####[facility] ([id number])[address], [address] [place] [address] Calcium [Mass/Vol] 8.6 mg/dL Normal 8.5-10.5 [facility] Comment on above: Performed By: #### C BCA, BMP, , 2776-11 ####[facility] ([id number])[address] [address] [place] [address] Chloride [Moles/Vol] 106 mmol/L Normal 98-109 [facility] Comment on above: Performed By: #### C BCA, BMP, , 2776-11 ####[facility] ([id number])[address] [address] [place] [address] CO2 [Moles/Vol] 18 mmol/L Low 22-32 [facility] Comment on above: Performed By: #### C KERRY, BMP, , 2776-11 ####[facility] ([id number])[address] [address] Creatinine [Mass/Vol] 3.48 mg/dL High 0.60-1.30 [facility] Comment on above: Result Comment: METH OD TRACEABLE TO IDMS STANDARD Performed By: #### C KERRY, ADRIANA, , 2776-11 ####[facility] ([id number])[address] [address] GFR/1.73 sq M.predicted among non-blacks MDRD (S/P/Bld) [Vol rate/Area] 19 mL/min/{1.73_m2} Low >59 [facility] Comment on above: Result Comment: Repo rted eGFR is based on theCKD-EPI 2020 equation that doesnot use a race coefficient. Performed By: #### C BCA, BMP, , 2776-11 ####[facility] ([id number])[address] [address] Glucose [Mass/Vol] 85 mg/dL Normal 65-99 [facility] Comment on above: Performed By: #### C BCA, BMP, , 2776-11 ####[facility] ([id number])[address] [place] [address] Potassium [Moles/Vol] 4.5 mmol/L Normal 3.5-5.0 [facility] Comment on above: Performed By: #### Belle PAYNE BMP, , 2776-11 ####[facility] ([id number])[address], [address] [place] [address] Sodium [Moles/Vol] 138 mmol/L Normal 134-146 [facility] Comment on above: Performed By: #### C KERRY, BMP, , 2776-11 ####[facility] ([id number])[address], [address] [place] [address]36 Urea nitrogen [Mass/Vol] 82 mg/dL High 5-27 [facility] Comment on above: Performed By: #### Belle PAYNE, BMP, , 2776-11 ####[facility] ([id number])[address] [address] [place] [address] CBC AND AUTO DIFFon 09-08-20 24 ABSOLUTE BASOPHIL 0.1 X10E9/L Normal 0.0-0.2 [facility] Comment on above: Performed By: #### Belle PAYNE, BMP, , 2776-11 ####[facility] ([id number])[address] [address] [place] [address] ABSOLUTE NEUTROPHIL 7.7 X10E9/L High 1.5-6.6 [facility] Comment on above: Performed By: #### C KERRY, BMP, , 2776-11 ####[facility] ([id number])[address] [address] Basophils/100 WBC (Bld) 0.8 % Normal [facility] Comment on above: Performed By: #### Belle PAYNE, BMP, , 2776-11 ####[facility] ([id number])[address], [address] [place] [address] Eosinophils (Bld) [#/Vol] 0.3 10*3/uL Normal 0.0-0.4 [facility] Comment on above: Performed By: #### C ADRIANA PAYNE, , 2776-11 ####[facility] ([id number])[address] [address] Eosinophils/100 WBC (Bld) 3.0 % Normal [facility] Comment on above: Performed By: #### C KERRY, ADRIANA, , 2776-11 ####[facility] ([id number])[address] [address] Erythrocyte distribution width (RBC) [Ratio] 20.1 % High 11.5-15.0 [facility] Comment on above: Performed By: #### C ADRIANA PAYNE, , 2776-11 ####[facility] ([id number])[address] [address] Hematocrit (Bld) [Volume fraction] 29.9 % Low 39-49 [facility] Comment on above: Performed By: #### C ADRIANA PAYNE, , 2776-11 ####[facility] ([id number])[address] [address] Hemoglobin (Bld) [Mass/Vol] 10.0 g/dL Low 13.0-17.0 [facility] Comment on above: Performed By: #### C KERRY, ADRIANA, , 2776-11 ####[facility] ([id number])[address] [address] Lymphocytes (Bld) [#/Vol] 0.8 10*3/uL Low 1.0-3.5 [facility] Comment on above: Performed By: #### C BCA, BMP, , 2776-11 ####[facility] ([id number])[address], [address] [address] Lymphocytes/100 WBC (Bld) 7.7 % Normal [facility] Comment on above: Performed By: #### C BCA, BMP, , 2776-11 ####[facility] ([id number])[address], [address] [address] MCH (RBC) [Entitic mass] 31.0 pg Normal 27-34 [facility] Comment on above: Performed By: #### C BCA, BMP, , 2776-11 ####[facility] ([id number])[address], [address] [address] MCHC (RBC) [Mass/Vol] 33.6 g/dL Normal 32-36 [facility] Comment on above: Performed By: #### C BCA, BMP, , 2776-11 ####[facility] ([id number])[address], [address] [place] [address] MCV (RBC) [Entitic vol] 92 fL Normal 80-100 [facility] Comment on above: Performed By: #### C BCA, BMP, , 2776-11 ####[facility] ([id number])[address], [address] [place] [address] Monocytes (Bld) [#/Vol] 0.9 10*3/uL Normal 0-0.9 [facility] Comment on above: Performed By: #### C BCA, BMP, , 2776-11 ####[facility] ([id number])[address] [address] [address] Monocytes/100 WBC (Bld) 8.9 % Normal [facility] Comment on above: Performed By: #### C BCA, BMP, , 2776-11 ####[facility] ([id number])[address], [address] [address] Neutrophils/100 WBC (Bld) 79.6 % Normal [facility] Comment on above: Performed By: #### C KERRY, ADRIANA, , 2776-11 ####[facility] ([id number])[address], [address] [address] Platelet mean volume (Bld) [Entitic vol] 8.4 fL Normal 7-12 [facility] Comment on above: Performed By: #### C KERRY, [facility], , 2776-11 ####[facility] ([id number])[address], [address] [address] Platelets (Bld) [#/Vol] 278 10*3/uL Normal 150-450 [facility] Comment on above: Performed By: #### Belle PAYNE [facility], , 2776-11 ####[facility] ([id number])[address] [address] [address] RBC COUNT 3.24 X10E12/L Low 4.10-5.70 [facility] Comment on above: Performed By: #### ADRIANA Odonnell BCA, , 2776-11 ####[facility] ([id number])[address] [address] [place] [address] WBC (Bld) [#/Vol] 9.7 10*3/uL Normal 4.0-11.0 [facility] Comment on above: Performed By: #### Belle PAYNE, BMP, , 2776-11 ####[facility] ([id number])[address], [address] [address] MAGNESIUMon 09-08-2024 Magnesium [Mass/Vol] 1.9 mg/dL Normal 1.8-2.6 [facility] Comment on above: Performed By: #### C BCA, BMP, , 2776-11 ####[facility] ([id number])[address], [address], [place] [address] PHOSPHORUSon 09-08-2024 Phosphate [Mass/Vol] 6.0 mg/dL High 2.4-4.9 [facility] Comment on above: Performed By: #### C BCA, BMP, , 2776-11 ####[facility] ([id number])[address], [address], [place] [address] BASIC METABOLIC PANLon 09-07 Anion gap [Moles/Vol] 14 mmol/L Normal 5-15 [facility] Comment on above: Performed By: #### C BCA, BMP, , 2776-11, 1988-03 ####[facility] ([id number])[address], [address], [place] [address] Calcium [Mass/Vol] 8.3 mg/dL Low 8.5-10.5 [facility] Comment on above: Performed By: #### C BCA, BMP, , 2776-11, 1988-03 ####[facility] ([id number])[address] [address] Chloride [Moles/Vol] 109 mmol/L Normal 98-109 [facility] Comment on above: Performed By: #### C BCA, BMP, , 2776-11, 1988-03 ####[facility] ([id number])[address], [address], [place] [address] CO2 [Moles/Vol] 18 mmol/L Low 22-32 [facility] Comment on above: Performed By: #### C BCA, BMP, , 2776-11, 1988-03 ####[facility] ([id number])[address], [address] [place] [address] Creatinine [Mass/Vol] 3.41 mg/dL High 0.60-1.30 [facility] Comment on above: Result Comment: METH OD TRACEABLE TO IDMS STANDARD Performed By: #### C ADRIANA PAYNE, , 2776-11, 1988-03 ####[facility] ([id number])[address], [address] [place] [address] GFR/1.73 sq M.predicted among non-blacks MDRD (S/P/Bld) [Vol rate/Area] 19 mL/min/{1.73_m2} Low >59 [facility] Comment on above: Result Comment: Repo rted eGFR is based on theCKD-EPI 2020 equation that doesnot use a race coefficient. Performed By: #### C ADRIANA PAYNE, , 2776-11, 1988-03 ####[facility] ([id number])[address] [address] [place] [address] Glucose [Mass/Vol] 91 mg/dL Normal 65-99 [facility] Comment on above: Performed By: #### C ADRIANA PAYNE, , 2776-11, 1988-03 ####[facility] ([id number])[address] [address] Potassium [Moles/Vol] 4.1 mmol/L Normal 3.5-5.0 [facility] Comment on above: Performed By: #### C KERRY, ADRIANA, , 2776-11, 1988-03 ####[facility] ([id number])[address] [address] Sodium [Moles/Vol] 141 mmol/L Normal 134-146 [facility] Comment on above: Performed By: #### C KERRY BMP, , 2776-11, 1988-03 ####[facility] ([id number])[address], [address] [place] [address] Urea nitrogen [Mass/Vol] 77 mg/dL High 5-27 [facility] Comment on above: Performed By: #### C KERRY BMP, , 2776-11, 1988-03 ####[facility] ([id number])[address], [address] [place] [address] CBC AND AUTO DIFFon 09-07-20 ABSOLUTE BASOPHIL 0.1 X10E9/L Normal 0.0-0.2 [facility] Comment on above: Performed By: #### C KERRY BMP, , 2776-11, 1988-03 ####[facility] ([id number])[address], [address] [place] [address] ABSOLUTE NEUTROPHIL 7.8 X10E9/L High 1.5-6.6 [facility] Comment on above: Performed By: #### C KERRY BMP, , 2776-11, 1988-03 ####[facility] ([id number])0 [address] [address] [place] [address] Basophils/100 WBC (Bld) 0.5 % Normal [facility] Comment on above: Performed By: #### C KERRY BMP, , 2776-11, 1988-03 ####[facility] ([id number])[address], [address] [place] [address] Eosinophils (Bld) [#/Vol] 0.5 10*3/uL High 0.0-0.4 [facility] Comment on above: Performed By: #### C KERRY, BMP, , 2776-11, 1988-03 ####[facility] ([id number])[address], [address] [place] [address] Eosinophils/100 WBC (Bld) 5.0 % Normal [facility] Comment on above: Performed By: #### C KERRY, BMP, , 2776-11, 1988-03 ####[facility] ([id number])[address] [address] [place] [address] Erythrocyte distribution width (RBC) [Ratio] 19.3 % High 11.5-15.0 [facility] Comment on above: Performed By: #### C KERRY, [facility], , 2776-11, 1988-03 ####[facility] ([id number])[address] [address] Hematocrit (Bld) [Volume fraction] 27.7 % Low 39-49 [facility] Comment on above: Performed By: #### C KERRY, [facility], , 2776-11, 1988-03 ####[facility] ([id number])[address] [address] Hemoglobin (Bld) [Mass/Vol] 9.1 g/dL Low 13.0-17.0 [facility] Comment on above: Performed By: #### C KERRY, [facility], , 2776-11, 1988-03 ####[facility] ([id number])[address] [address] Lymphocytes (Bld) [#/Vol] 0.6 10*3/uL Low 1.0-3.5 [facility] Comment on above: Performed By: #### C KERRY, [facility], , 2776-11, 1988-03 ####[facility] ([id number])[address] [address] Lymphocytes/100 WBC (Bld) 6.5 % Normal [facility] Comment on above: Performed By: #### C KERRY, BMP, , 2776-11, 1988-03 ####[facility] ([id number])[address] [address] MCH (RBC) [Entitic mass] 30.6 pg Normal 27-34 [facility] Comment on above: Performed By: #### C BCA, BMP, , 2776-11, 1988-03 ####[facility] ([id number])[address], [address] [place] [address] MCHC (RBC) [Mass/Vol] 32.8 g/dL Normal 32-36 [facility] Comment on above: Performed By: #### C BCA, BMP, , 2776-11, 1988-03 ####[facility] ([id number])[address], [address] [place] [address] MCV (RBC) [Entitic vol] 93 fL Normal 80-100 [facility] Comment on above: Performed By: #### Belle BCA, BMP, , 2776-11, 1988-03 ####[facility] ([id number])0 [address] [address] [place] [address] Monocytes (Bld) [#/Vol] 0.9 10*3/uL Normal 0-0.9 [facility] Comment on above: Performed By: #### Belle BCA, BMP, , 2776-11, 1988-03 ####[facility] ([id number])[address] [address] Monocytes/100 WBC (Bld) 9.2 % Normal [facility] Comment on above: Performed By: #### C BCA, BMP, , 2776-11, 1988-03 ####[facility] [place] [facility] ([id number])[address] [address] Neutrophils/100 WBC (Bld) 78.8 % Normal [facility] Comment on above: Performed By: #### Belle BCA, BMP, , 2776-11, 1988-03 ####[facility] [place] [facility] ([id number])[address] [address] Platelet mean volume (Bld) [Entitic vol] 8.6 fL Normal 7-12 [facility] Comment on above: Performed By: #### Belle PAYNE [facility], , 2776-11, 1988-03 ####[facility] [place] [facility] ([id number])0 [address].[facility] [address] [place] [address] Platelets (Bld) [#/Vol] 218 10*3/uL Normal 150-450 [facility] Comment on above: Performed By: #### ADRIANA Odonnell BCA, , 2776-11, 1988-03 ####[facility] [place] [facility] ([id number])[address] [address] [address] RBC COUNT 2.98 X10E12/L Low 4.10-5.70 [facility] Comment on above: Performed By: #### Belle PAYNE [facility], , 2776-11, 1988-03 ####[facility] [facility] ([id number])[address]129 [address] [address] [place] [address] WBC (Bld) [#/Vol] 9.9 10*3/uL Normal 4.0-11.0 [facility] Comment on above: Performed By: #### ADRIANA Odonnell BCA, , 2776-11, 1988-03 ####[facility] [place] [facility] ([id number])0 [address].[facility] [address] [place] [address] CRP [Mass/Vol]on 09-07-2024 C REACTIVE PROTEIN 2.2 mg/dL High 0.000-0.744 [facility] Comment on above: Performed By: #### Belle PAYNE BMP, , 2776-11, 1988-03 ####[facility] ([id number])[address] [address] [place] [address] MAGNESIUMon 09-07-2024 Magnesium [Mass/Vol] 2.0 mg/dL Normal 1.8-2.6 [facility] Comment on above: Performed By: #### C KERRY, BMP, , 2776-11, 1988-03 ####[facility] [facility] ([id number])[address], [place] [address] PHOSPHORUSon 09-07-2024 Phosphate [Mass/Vol] 6.0 mg/dL High 2.4-4.9 [facility] Comment on above: Performed By: #### C KERRY, BMP, , 2776-11, 1988-03 ####[facility] [place] [facility] ([id number])[address], [place] [address] XR CALCANEOUS LT MIN 2 VWSon 09-07-2024 XR CALCANEOUS LT MIN 2 VWS Normal [facility] BASIC METABOLIC PANLon 09-06 Anion gap [Moles/Vol] 13 mmol/L Normal 5-15 [facility] Comment on above: Performed By: #### C KERRY, BMP, , 2776-11 ####[facility] ([id number])[address], [place] [address] Calcium [Mass/Vol] 8.4 mg/dL Low 8.5-10.5 [facility] Comment on above: Performed By: #### C KERRY, BMP, , 2776-11 ####[facility] ([id number])[address], [place] [address] Chloride [Moles/Vol] 109 mmol/L Normal 98-109 [facility] Comment on above: Performed By: #### C BCA, BMP, , 2776-11 ####[facility] ([id number])[address], [place] [address] CO2 [Moles/Vol] 18 mmol/L Low 22-32 [facility] Comment on above: Performed By: #### C KERRY, ADRIANA, , 2776-11 ####[facility] ([id number])[address] [address], [place] [address] Creatinine [Mass/Vol] 3.38 mg/dL High 0.60-1.30 [facility] Comment on above: Result Comment: METH OD TRACEABLE TO IDMS STANDARD Performed By: #### C KERRY, ADRIANA, , 2776-11 ####[facility] ([id number])[address] [address] [address] GFR/1.73 sq M.predicted among non-blacks MDRD (S/P/Bld) [Vol rate/Area] 19 mL/min/{1.73_m2} Low >59 [facility] Comment on above: Result Comment: Repo rted eGFR is based on theCKD-EPI 2020 equation that doesnot use a race coefficient. Performed By: #### C KERRY, BMP, , 2776-11 ####[facility] ([id number])[address] [address], [place] [address] Glucose [Mass/Vol] 132 mg/dL High 65-99 [facility] Comment on above: Performed By: #### C ADRIANA PAYNE, , 2776-11 ####[facility] ([id number])[address] [address], [place] [address] Potassium [Moles/Vol] 4.4 mmol/L Normal 3.5-5.0 [facility] Comment on above: Performed By: #### C KERRY, BMP, , 2776-11 ####[facility] ([id number])[address] [address], [place] [address] Sodium [Moles/Vol] 140 mmol/L Normal 134-146 [facility] Comment on above: Performed By: #### C BCA, BMP, , 2776-11 ####[facility] ([id number])[address] [address] Urea nitrogen [Mass/Vol] 72 mg/dL High 5-27 [facility] Comment on above: Performed By: #### C KERRY, BMP, , 2776-11 ####[facility] ([id number])[address], [address] [place] [address] CBC AND AUTO DIFFon 09-06-20 24 ABSOLUTE BASOPHIL 0.1 X10E9/L Normal 0.0-0.2 [facility] Comment on above: Performed By: #### C KERRY, BMP, , 2776-11 ####[facility] ([id number])[address] [address] ABSOLUTE NEUTROPHIL 10.1 X10E9/L High 1.5-6.6 [facility] Comment on above: Performed By: #### C KERRY, [facility], , 2776-11 ####[facility] ([id number])[address] [address] [place] [address] Basophils/100 WBC (Bld) 0.5 % Normal [facility] Comment on above: Performed By: #### C KERRY, BMP, , 2776-11 ####[facility] ([id number])[address], [address] [place] [address] Eosinophils (Bld) [#/Vol] 0.4 10*3/uL Normal 0.0-0.4 [facility] Comment on above: Performed By: #### C BCA, BMP, , 2776-11 ####[facility] ([id number])[address], [address] [place] [address] Eosinophils/100 WBC (Bld) 3.3 % Normal [facility] Comment on above: Performed By: #### C KERRY, [facility], , 2776-11 ####[facility] ([id number])[address] [address] [address] Erythrocyte distribution width (RBC) [Ratio] 18.4 % High 11.5-15.0 [facility] Comment on above: Performed By: #### C KERRY, [facility], , 2776-11 ####[facility] ([id number])[address] [address] [place] [address] Hematocrit (Bld) [Volume fraction] 29.0 % Low 39-49 [facility] Comment on above: Performed By: #### C KERRY, [facility], , 2776-11 ####[facility] ([id number])[address] [address] [address] Hemoglobin (Bld) [Mass/Vol] 9.7 g/dL Low 13.0-17.0 [facility] Comment on above: Performed By: #### C KERRY, [facility], , 2776-11 ####[facility] ([id number])[address] [address] Lymphocytes (Bld) [#/Vol] 0.7 10*3/uL Low 1.0-3.5 [facility] Comment on above: Performed By: #### Belle PAYNE, [facility], , 2776-11 ####[facility] ([id number])[address] [address] Lymphocytes/100 WBC (Bld) 5.3 % Normal [facility] Comment on above: Performed By: #### C KERRY, [facility], , 2776-11 ####[facility] ([id number])[address] [address] [address] MCH (RBC) [Entitic mass] 30.7 pg Normal 27-34 [facility] Comment on above: Performed By: #### C KERRY, BMP, , 2776-11 ####[facility] ([id number])[address], [address], [place] [address] MCHC (RBC) [Mass/Vol] 33.4 g/dL Normal 32-36 [facility] Comment on above: Performed By: #### C KERRY, BMP, , 2776-11 ####[facility] ([id number])[address], [address] [place] [address] MCV (RBC) [Entitic vol] 92 fL Normal 80-100 [facility] Comment on above: Performed By: #### C KERRY, BMP, , 2776-11 ####[facility] ([id number])[address], [address] [place] [address] Monocytes (Bld) [#/Vol] 1.3 10*3/uL High 0-0.9 [facility] Comment on above: Performed By: #### C KERRY, BMP, , 2776-11 ####[facility] ([id number])[address] [place] [place] [address] Monocytes/100 WBC (Bld) 10.7 % Normal [facility] Comment on above: Performed By: #### C KERRY, BMP, , 2776-11 ####[facility] ([id number])[address], [address] [place] [place] [address] Neutrophils/100 WBC (Bld) 80.2 % Normal [facility] Comment on above: Performed By: #### C KERRY, BMP, , 2776-11 ####[facility] ([id number])[address], [address], [place] [address] Platelet mean volume (Bld) [Entitic vol] 8.6 fL Normal 7-12 [facility] Comment on above: Performed By: #### C KERRY, ADRIANA, , 2776-11 ####[facility] ([id number])[address], [address] [place] [address] Platelets (Bld) [#/Vol] 203 10*3/uL Normal 150-450 [facility] Comment on above: Performed By: #### Belle PAYNE, ADRIANA, , 2776-11 ####[facility] ([id number])[address], [address] [place] [address] RBC COUNT 3.15 X10E12/L Low 4.10-5.70 [facility] Comment on above: Performed By: #### ADRIANA Odonnell BCA, , 2776-11 ####[facility] ([id number])[address], [address] [place] [address] WBC (Bld) [#/Vol] 12.6 10*3/uL High 4.0-11.0 [facility] Comment on above: Performed By: #### ADRIANA Odonnell BCA, , 2776-11 ####[facility] ([id number])[address], [address] [place] [address] MAGNESIUMon 09-06-2024 Magnesium [Mass/Vol] 2.2 mg/dL Normal 1.8-2.6 [facility] Comment on above: Performed By: #### Belle PAYNE, ADRIANA, , 2776-11 ####[facility] ([id number])[address], [address] [place] [address] PHOSPHORUSon 09-06-2024 Phosphate [Mass/Vol] 5.5 mg/dL High 2.4-4.9 [facility] Comment on above: Performed By: #### Belle PAYNE, ADRIANA, , 2776-11 ####[facility] ([id number])[address], [place] [address] BASIC METABOLIC PANLon 09-05 Anion gap [Moles/Vol] 12 mmol/L Normal 5-15 [facility] Comment on above: Performed By: #### C BCA, BMP, , 2776-11 ####[facility] ([id number])[address] [address] Calcium [Mass/Vol] 8.0 mg/dL Low 8.5-10.5 [facility] Comment on above: Performed By: #### C KERRY, BMP, , 2776-11 ####[facility] ([id number])[address] [address] Chloride [Moles/Vol] 113 mmol/L High 98-109 [facility] Comment on above: Performed By: #### C KERRY, BMP, , 2776-11 ####[facility] ([id number])[address] [address] [place] [address] CO2 [Moles/Vol] 18 mmol/L Low 22-32 [facility] Comment on above: Performed By: #### C KERRY, BMP, , 2776-11 ####[facility] ([id number])[address] [address] [place] [address] Creatinine [Mass/Vol] 3.02 mg/dL High 0.60-1.30 [facility] Comment on above: Result Comment: METH OD TRACEABLE TO IDMS STANDARD Performed By: #### C KERRY, BMP, , 2776-11 ####[facility] ([id number])[address], [address] [place] [address] GFR/1.73 sq M.predicted among non-blacks MDRD (S/P/Bld) [Vol rate/Area] 22 mL/min/{1.73_m2} Low >59 [facility] Comment on above: Result Comment: Repo rted eGFR is based on theD-EPI 2020 equation that doesnot use a race coefficient. Performed By: #### C ADRIANA PAYNE, , 2776-11 ####[facility] ([id number])[address] [address] Glucose [Mass/Vol] 108 mg/dL High 65-99 [facility] Comment on above: Performed By: #### C ADRIANA PAYNE, , 2776-11 ####[facility] ([id number])[address] [address] [place] [address] Potassium [Moles/Vol] 4.0 mmol/L Normal 3.5-5.0 [facility] Comment on above: Performed By: #### C ADRIANA PAYNE, , 2776-11 ####[facility] ([id number])[address] [address] Sodium [Moles/Vol] 143 mmol/L Normal 134-146 [facility] Comment on above: Performed By: #### C ADRIANA PAYNE, , 2776-11 ####[facility] ([id number])[address] [address] [place] [address] Urea nitrogen [Mass/Vol] 63 mg/dL High 5-27 [facility] Comment on above: Performed By: #### C ADRIANA PAYNE, , 2776-11 ####[facility] ([id number])[address] [address] CBC AND AUTO DIFFon 09-05-20 24 ABSOLUTE BASOPHIL 0.0 X10E9/L Normal 0.0-0.2 [facility] Comment on above: Performed By: #### C ADRIANA PAYNE, , 2776-11 ####[facility] ([id number])[address], [address] [place] [place] [address] ABSOLUTE NEUTROPHIL 6.3 X10E9/L Normal 1.5-6.6 [facility] Comment on above: Performed By: #### C BCA, BMP, , 2776-11 ####[facility] ([id number])[address], [place] [address] Basophils/100 WBC (Bld) 0.2 % Normal [facility] Comment on above: Performed By: #### C KERRY, BMP, , 2776-11 ####[facility] ([id number])[address] [address] Eosinophils (Bld) [#/Vol] 0.2 10*3/uL Normal 0.0-0.4 [facility] Comment on above: Performed By: #### C BCA, BMP, , 2776-11 ####[facility] ([id number])[address] [address] Eosinophils/100 WBC (Bld) 2.7 % Normal [facility] Comment on above: Performed By: #### C BCA, BMP, , 2776-11 ####[facility] ([id number])[address] [address] Erythrocyte distribution width (RBC) [Ratio] 16.7 % High 11.5-15.0 [facility] Comment on above: Performed By: #### C BCA, BMP, , 2776-11 ####[facility] ([id number])[address], [place] [address] Hematocrit (Bld) [Volume fraction] 24.4 % Low 39-49 [facility] Comment on above: Performed By: #### C BCA, BMP, , 2776-11 ####[facility] ([id number])[address] [address] Hemoglobin (Bld) [Mass/Vol] 8.3 g/dL Low 13.0-17.0 [facility] Comment on above: Performed By: #### C BCA, BMP, , 2776-11 ####[facility] ([id number])[address] [address] Lymphocytes (Bld) [#/Vol] 0.5 10*3/uL Low 1.0-3.5 [facility] Comment on above: Performed By: #### C KERRY, BMP, , 2776-11 ####[facility] ([id number])[address] [address] Lymphocytes/100 WBC (Bld) 5.9 % Normal [facility] Comment on above: Performed By: #### C BCA, BMP, , 2776-11 ####[facility] ([id number])[address] [address] [address] MCH (RBC) [Entitic mass] 30.7 pg Normal 27-34 [facility] Comment on above: Performed By: #### C BCA, BMP, , 2776-11 ####[facility] ([id number])[address] [address] [address] MCHC (RBC) [Mass/Vol] 33.9 g/dL Normal 32-36 [facility] Comment on above: Performed By: #### C BCA, BMP, , 2776-11 ####[facility] ([id number])[address], [place] [address] MCV (RBC) [Entitic vol] 91 fL Normal 80-100 [facility] Comment on above: Performed By: #### C BCA, BMP, , 2776-11 ####[facility] ([id number])[address], [address], [place] [address] Monocytes (Bld) [#/Vol] 0.9 10*3/uL Normal 0-0.9 [facility] Comment on above: Performed By: #### C BCA, BMP, , 2776-11 ####[facility] ([id number])[address], [address], [place] [address] Monocytes/100 WBC (Bld) 11.5 % Normal [facility] Comment on above: Performed By: #### C KERRY, BMP, , 2776-11 ####[facility] ([id number])[address], [place] [address] Neutrophils/100 WBC (Bld) 79.7 % Normal [facility] Comment on above: Performed By: #### Belle BCA, BMP, , 2776-11 ####[facility] ([id number])[address], [address], [place] [address] Platelet mean volume (Bld) [Entitic vol] 8.8 fL Normal 7-12 [facility] Comment on above: Performed By: #### C KERRY, BMP, , 2776-11 ####[facility] ([id number])[address], [place] [address] Platelets (Bld) [#/Vol] 136 10*3/uL Low 150-450 [facility] Comment on above: Performed By: #### C BCA, BMP, , 2776-11 ####[facility] ([id number])[address], [place] [address] RBC COUNT 2.69 X10E12/L Low 4.10-5.70 [facility] Comment on above: Performed By: #### C BCA, BMP, , 2776-11 ####[facility] ([id number])[address] [address], [place] [address] WBC (Bld) [#/Vol] 7.9 10*3/uL Normal 4.0-11.0 [facility] Comment on above: Performed By: #### C ADRIANA PAYNE, , 2776-11 ####[facility] ([id number])[address] [address] [place] [address], [place] [address] HGB AND HCTon 09-05-2024 Hematocrit (Bld) [Volume fraction] 26.0 % Low 39-49 [facility] Comment on above: Performed By: #### H H ####[facility] ([id number])[address] [address] [address] Hemoglobin (Bld) [Mass/Vol] 8.8 g/dL Low 13.0-17.0 [facility] Comment on above: Performed By: #### H H ####[facility] ([id number])[address] [address], [place] [address] MAGNESIUMon 09-05-2024 Magnesium [Mass/Vol] 1.9 mg/dL Normal 1.8-2.6 [facility] Comment on above: Performed By: #### C ADRIANA PAYNE, , 2776-11 ####[facility] ([id number])[address] [address] [place] [address], [place] [address] Magnesium Ionized ISE (Bld) [Moles/Vol]on 09-05-2024 Magnesium [Moles/Vol] 0.76 mmol/L High 0.45-0.74 [facility] Comment on above: Result Comment: NEW REFERENCE RANGE Performed By: #### 7 3572-0 ####[facility] ([id number])[address] [address], [place] [address] PHOSPHORUSon 09-05-2024 Phosphate [Mass/Vol] 4.9 mg/dL Normal 2.4-4.9 [facility] Comment on above: Performed By: #### C BCA, BMP, , 2776-11 ####[facility] ([id number])[address] [address] BASIC METABOLIC PANLon 09-04 Anion gap [Moles/Vol] 10 mmol/L Normal 5-15 [facility] Comment on above: Performed By: #### C BCA, BMP, , 2776-11, PINR ####[facility] ([id number])[address] [place] [address] Calcium [Mass/Vol] 8.4 mg/dL Low 8.5-10.5 [facility] Comment on above: Performed By: #### C BCA, BMP, , 2776-11, PINR ####[facility] ([id number])[address], [place] [address] Chloride [Moles/Vol] 112 mmol/L High 98-109 [facility] Comment on above: Performed By: #### C BCA, BMP, , 2776-11, PINR ####[facility] ([id number])[address], [place] [address] CO2 [Moles/Vol] 20 mmol/L Low 22-32 [facility] Comment on above: Performed By: #### C BCA, BMP, , 2776-11, PINR ####[facility] ([id number])[address] [place] [address] Creatinine [Mass/Vol] 2.34 mg/dL High 0.60-1.30 [facility] Comment on above: Result Comment: METH OD TRACEABLE TO IDMS STANDARD Performed By: #### C BCA, BMP, , 2776-11, PINR ####[facility] ([id number])[address] [address] GFR/1.73 sq M.predicted among non-blacks MDRD (S/P/Bld) [Vol rate/Area] 30 mL/min/{1.73_m2} Low >59 [facility] Comment on above: Result Comment: Repo rted eGFR is based on theCKD-EPI 2020 equation that doesnot use a race coefficient. Performed By: #### C BCA, BMP, , 2776-11, PINR ####[facility] ([id number])[address] [address] [place] [address] Glucose [Mass/Vol] 106 mg/dL High 65-99 [facility] Comment on above: Performed By: #### C BCA, BMP, , 2776-11, PINR ####[facility] ([id number])[address] [address] [place] [address] Potassium [Moles/Vol] 3.9 mmol/L Normal 3.5-5.0 [facility] Comment on above: Performed By: #### C BCA, BMP, , 2776-11, PINR ####[facility] ([id number])[address] [address] Sodium [Moles/Vol] 142 mmol/L Normal 134-146 [facility] Comment on above: Performed By: #### C BCA, BMP, , 2776-11, PINR ####[facility] ([id number])[address] [address] Urea nitrogen [Mass/Vol] 63 mg/dL High 5-27 [facility] Comment on above: Performed By: #### C BCA, BMP, , 2776-11, PINR ####[facility] ([id number])[address] [address] CBC AND AUTO DIFFon 09-04-20 24 ABSOLUTE BASOPHIL 0.0 X10E9/L Normal 0.0-0.2 [facility] Comment on above: Performed By: #### C BCA, BMP, , 2776-11, PINR ####[facility] ([id number])[address] [address] ABSOLUTE NEUTROPHIL 5.6 X10E9/L Normal 1.5-6.6 [facility] Comment on above: Performed By: #### C KERRY, BMP, , 2776-11, PINR ####[facility] ([id number])[address], [address] [place] [address] Basophils/100 WBC (Bld) 0.2 % Normal [facility] Comment on above: Performed By: #### C BCA, BMP, , 2776-11, PINR ####[facility] ([id number])[address], [address] [place] [address] Eosinophils (Bld) [#/Vol] 0.2 10*3/uL Normal 0.0-0.4 [facility] Comment on above: Performed By: #### C BCA, BMP, , 2776-11, PINR ####[facility] ([id number])[address], [address] [place] [address] Eosinophils/100 WBC (Bld) 2.2 % Normal [facility] Comment on above: Performed By: #### C BCA, BMP, , 2776-11, PINR ####[facility] ([id number])[address], [address] [place] [address] Erythrocyte distribution width (RBC) [Ratio] 16.6 % High 11.5-15.0 [facility] Comment on above: Performed By: #### C BCA, BMP, , 2776-11, PINR ####[facility] ([id number])[address] [address] Hematocrit (Bld) [Volume fraction] 22.1 % Low 39-49 [facility] Comment on above: Performed By: #### C KERRY, BMP, , 2776-11, PINR ####[facility] ([id number])[address] [address] Hemoglobin (Bld) [Mass/Vol] 7.4 g/dL Low 13.0-17.0 [facility] Comment on above: Performed By: #### C KERRY, BMP, , 2776-11, PINR ####[facility] ([id number])[address], [address] [place] [address] Lymphocytes (Bld) [#/Vol] 0.5 10*3/uL Low 1.0-3.5 [facility] Comment on above: Performed By: #### C KERRY, BMP, , 2776-11, PINR ####[facility] ([id number])[address] [address] [address] Lymphocytes/100 WBC (Bld) 7.2 % Normal [facility] Comment on above: Performed By: #### C KERRY, BMP, , 2776-11, PINR ####[facility] ([id number])[address] [address] MCH (RBC) [Entitic mass] 29.9 pg Normal 27-34 [facility] Comment on above: Performed By: #### C BCA, BMP, , 2776-11, PINR ####[facility] ([id number])[address] [address] MCHC (RBC) [Mass/Vol] 33.5 g/dL Normal 32-36 [facility] Comment on above: Performed By: #### C BCA, BMP, , 2776-11, PINR ####[facility] ([id number])[address] [place] [address] MCV (RBC) [Entitic vol] 89 fL Normal 80-100 [facility] Comment on above: Performed By: #### C BCA, BMP, , 2776-11, PINR ####[facility] ([id number])[address] [address] Monocytes (Bld) [#/Vol] 0.8 10*3/uL Normal 0-0.9 [facility] Comment on above: Performed By: #### C BCA, BMP, , 2776-11, PINR ####[facility] ([id number])[address] [address] Monocytes/100 WBC (Bld) 11.0 % Normal [facility] Comment on above: Performed By: #### C BCA, BMP, , 2776-11, PINR ####[facility] ([id number])[address] [address] Neutrophils/100 WBC (Bld) 79.4 % Normal [facility] Comment on above: Performed By: #### C BCA, BMP, , 2776-11, PINR ####[facility] ([id number])[address] [place] [address] Platelet mean volume (Bld) [Entitic vol] 8.9 fL Normal 7-12 [facility] Comment on above: Performed By: #### C BCA, BMP, , 2776-11, PINR ####[facility] ([id number])[address], [place] [address] Platelets (Bld) [#/Vol] 103 10*3/uL Low 150-450 [facility] Comment on above: Performed By: #### C BCA, BMP, , 2776-11, PINR ####[facility] ([id number])[address] [address] RBC COUNT 2.48 X10E12/L Low 4.10-5.70 [facility] Comment on above: Performed By: #### C BCA, BMP, , 2776-11, PINR ####[facility] ([id number])[address] [address] WBC (Bld) [#/Vol] 7.1 10*3/uL Normal 4.0-11.0 [facility] Comment on above: Performed By: #### C BCA, BMP, , 2776-11, PINR ####[facility] ([id number])[address] [address] HGB AND HCTon 09-04-2024 Hematocrit (Bld) [Volume fraction] 25.0 % Low 39-49 [facility] Comment on above: Performed By: #### H H ####[facility] ([id number])[address], [address] [place] [address] Hemoglobin (Bld) [Mass/Vol] 8.3 g/dL Low 13.0-17.0 [facility] Comment on above: Performed By: #### H H ####[facility] ([id number])[address], [address] [place] [address], [place] [address] Hematocrit (Bld) [Volume fraction] 22.8 % Low 39-49 [facility] Comment on above: Performed By: #### H H ####[facility] ([id number])[address] [place] [address] Hemoglobin (Bld) [Mass/Vol] 7.6 g/dL Low 13.0-17.0 [facility] Comment on above: Performed By: #### H H ####[facility] ([id number])[address] [place] [address] Hematocrit (Bld) [Volume fraction] 22.5 % Low 39-49 [facility] Comment on above: Performed By: #### H H ####[facility] [facility] ([id number])[address] [place] [address] Hemoglobin (Bld) [Mass/Vol] 7.4 g/dL Low 13.0-17.0 [facility] Comment on above: Performed By: #### H H ####[facility] ([id number])[address], [address] [place] [address] MAGNESIUMon 09-04-2024 Magnesium [Mass/Vol] 2.2 mg/dL Normal 1.8-2.6 [facility] Comment on above: Performed By: #### C KERRY, BMP, , 2776-11, PINR ####[facility] ([id number])[address] [place] [place] [address] PHOSPHORUSon 09-04-2024 Phosphate [Mass/Vol] 4.0 mg/dL Normal 2.4-4.9 [facility] Comment on above: Performed By: #### C BCA, BMP, , 2776-11, PINR ####[facility] ([id number])[address], [address], [place] [address] PROTIME AND INRon 09-04-2024 INR Coag (PPP) [Relative time] 1.2 {INR} High 0.8-1.1 [facility] Comment on above: Performed By: #### C BCA, BMP, , 2776-11, PINR ####[facility] ([id number])[address], [address] [address] PT Coag (PPP) [Time] 14.4 s High 9.8-13.2 [facility] Comment on above: Performed By: #### C BCA, BMP, , 2776-11, PINR ####[facility] ([id number])[address], [address] [place] [address] BASIC METABOLIC PANLon 09-03 Anion gap [Moles/Vol] 10 mmol/L Normal 5-15 [facility] Comment on above: Performed By: #### P INR, CBCA, 4679-7, BMP, , 2776-11 ####[facility] ([id number])[address], [address] [place] [address] Calcium [Mass/Vol] 9.4 mg/dL Normal 8.5-10.5 [facility] Comment on above: Performed By: #### P INR, CBCA, 4679-7, BMP, , 2776-11 ####[facility] ([id number])[address], [address], [place] [address] Chloride [Moles/Vol] 106 mmol/L Normal 98-109 [facility] Comment on above: Performed By: #### P INR, CBCA, 4679-7, BMP, , 2776-11 ####[facility] ([id number])[address], [address] [address] CO2 [Moles/Vol] 21 mmol/L Low 22-32 [facility] Comment on above: Performed By: #### P INR, CBCA, 4679-7, BMP, , 2776-11 ####[facility] ([id number])[address] [address] Creatinine [Mass/Vol] 2.10 mg/dL High 0.60-1.30 [facility] Comment on above: Result Comment: METH OD TRACEABLE TO IDMS STANDARD Performed By: #### P INR, CBCA, 4679-7, BMP, 00617-0, 2776-11 ####[facility] ([id number])[address] [address] GFR/1.73 sq M.predicted among non-blacks MDRD (S/P/Bld) [Vol rate/Area] 34 mL/min/{1.73_m2} Low >59 [facility] Comment on above: Result Comment: Repo rted eGFR is based on theCKD-EPI 2020 equation that doesnot use a race coefficient. Performed By: #### P INR, CBCA, 4679-7, BMP, , 2776-11 ####[facility] ([id number])[address] [address] Glucose [Mass/Vol] 92 mg/dL Normal 65-99 [facility] Comment on above: Performed By: #### P INR, CBCA, 4679-7, BMP, , 2776-11 ####[facility] ([id number])[address] [address] Potassium [Moles/Vol] 5.6 mmol/L High 3.5-5.0 [facility] Comment on above: Performed By: #### P INR, CBCA, 4679-7, BMP, 14863-2, 2776-11 ####[facility] ([id number])[address] [address] Sodium [Moles/Vol] 137 mmol/L Normal 134-146 [facility] Comment on above: Performed By: #### P INR, CBCA, 4679-7, BMP, 86394-6, 2776- ####[facility] ([id number])[address] [address] [place] [address] Urea nitrogen [Mass/Vol] 57 mg/dL High 5-27 [facility] Comment on above: Performed By: #### P INR, CBCA, 4679-7, BMP, 81830-2, 1 ####[facility] ([id number])[address] [address] [place] [address] CBC AND AUTO DIFFon 09-03-20 24 Band form neutrophils/100 WBC (Bld) 1.9 % Normal [facility] Comment on above: Performed By: #### P INR, CBCA, 4679-7, BMP, 84280-2, 2776-11 ####[facility] ([id number])[address] [address] [place] [address] Erythrocyte distribution width (RBC) [Ratio] 16.2 % High 11.5-15.0 [facility] Comment on above: Performed By: #### P INR, CBCA, 4679-7, BMP, , 2776-11 ####[facility] ([id number])[address] [address] [place] [address] Hematocrit (Bld) [Volume fraction] 27.7 % Low 39-49 [facility] Comment on above: Performed By: #### P INR, CBCA, 4679-7, BMP, , 2776-11 ####[facility] ([id number])[address] [address] [place] [address] Hemoglobin (Bld) [Mass/Vol] 9.5 g/dL Low 13.0-17.0 [facility] Comment on above: Performed By: #### P INR, CBCA, 4679-7, BMP, , 2776-11 ####[facility] ([id number])[address] [address] Lymphocytes (Bld) [#/Vol] 1.0 10*3/uL Normal 1.0-3.5 [facility] Comment on above: Performed By: #### P INR, CBCA, 4679-7, BMP, , 2776-11 ####[facility] ([id number])[address] [address] [place] [address] Lymphocytes/100 WBC (Bld) 5.7 % Normal [facility] Comment on above: Performed By: #### P INR, CBCA, 4679-7, BMP, , 2776-11 ####[facility] ([id number])[address] [address] MCH (RBC) [Entitic mass] 29.7 pg Normal 27-34 [facility] Comment on above: Performed By: #### P INR, CBCA, 4679-7, BMP, , 2776-11 ####[facility] ([id number])[address] [address] [place] [address] MCHC (RBC) [Mass/Vol] 34.2 g/dL Normal 32-36 [facility] Comment on above: Performed By: #### P INR, CBCA, 4679-7, BMP, , 2776-11 ####[facility] ([id number])[address] [address] [place] [address] MCV (RBC) [Entitic vol] 87 fL Normal 80-100 [facility] Comment on above: Performed By: #### P INR, CBCA, 4679-7, BMP, , 2776-11 ####[facility] ([id number])[address] [address] Monocytes (Bld) [#/Vol] 1.9 10*3/uL High 0-0.9 [facility] Comment on above: Performed By: #### P INR, CBCA, 4679-7, BMP, 92343-2, 2776- ####[facility] ([id number])[address] [address] Monocytes/100 WBC (Bld) 11.4 % Normal [facility] Comment on above: Performed By: #### P INR, CBCA, 4679-7, BMP, 89871-3, 2776- ####[facility] ([id number])[address] [address] MYELOCYTE 1.9 % Normal [facility] Comment on above: Performed By: #### P INR, CBCA, 4679-7, BMP, 91234-5, 2776-11 ####[facility] ([id number])[address], [address] [place] [address] Neutrophils (Bld) [#/Vol] 13.7 10*3/uL High 1.5-6.6 [facility] Comment on above: Performed By: #### P INR, CBCA, 4679-7, BMP, 97132-2, 2776- ####[facility] ([id number])[address], [address] [place] [address] NUCLEATED RBC 3.8 /100 WBC High 0.0-1.0 [facility] Comment on above: Performed By: #### P INR, CBCA, 4679-7, BMP, 02975-4, 2776-11 ####[facility] ([id number])[address], [address], [place] [address] Platelet mean volume (Bld) [Entitic vol] 9.1 fL Normal 7-12 [facility] Comment on above: Performed By: #### P INR, CBCA, 4679-7, BMP, 88324-8, 2776- ####[facility] ([id number])[address], [address], [place] [address] Platelets (Bld) [#/Vol] 128 10*3/uL Low 150-450 [facility] Comment on above: Performed By: #### P INR, CBCA, 4679-7, BMP, 12752-5, 2776- ####[facility] ([id number])[address] [address] POLYCHROMASIA 1+ Abnormal NONE [facility] Comment on above: Performed By: #### P INR, CBCA, 4679-7, BMP, 56522-2, 2776- ####[facility] ([id number])[address], [address] [place] [address] RBC COUNT 3.19 X10E12/L Low 4.10-5.70 [facility] Comment on above: Performed By: #### P INR, CBCA, 4679-7, BMP, 82715-5, 2776-11 ####[facility] ([id number])[address], [address] [place] [address] SEG NEUTROPHIL 79.1 % Normal [facility] Comment on above: Performed By: #### P INR, CBCA, 4679-7, BMP, 65580-2, 2776-11 ####[facility] ([id number])[address], [address] [place] [address] WBC (Bld) [#/Vol] 16.9 10*3/uL High 4.0-11.0 [facility] Comment on above: Performed By: #### P INR, CBCA, 4679-7, BMP, 16790-8, 2776- ####[facility] ([id number])[address], [address] [place] [address] HGB AND HCTon 09-03-2024 Hematocrit (Bld) [Volume fraction] 24.4 % Low 39-49 [facility] Comment on above: Performed By: #### H H ####[facility] ([id number])[address], [address], [place] [address] Hemoglobin (Bld) [Mass/Vol] 8.2 g/dL Low 13.0-17.0 [facility] Comment on above: Performed By: #### H H ####[facility] ([id number])[address], [address], [place] [address] Hematocrit (Bld) [Volume fraction] 23.8 % Low 39-49 [facility] Comment on above: Performed By: #### H H ####[facility] ([id number])[address] [place] [address] Hemoglobin (Bld) [Mass/Vol] 8.2 g/dL Low 13.0-17.0 [facility] Comment on above: Performed By: #### H H ####[facility] ([id number])[address] [address] Hematocrit (Bld) [Volume fraction] 23.7 % Low 39-49 [facility] Comment on above: Performed By: #### H H ####[facility] ([id number])[address] [address] Hemoglobin (Bld) [Mass/Vol] 8.2 g/dL Low 13.0-17.0 [facility] Comment on above: Performed By: #### H H ####[facility] ([id number])[address], [address], [place] [address] MAGNESIUMon 09-03-2024 Magnesium [Mass/Vol] 2.4 mg/dL Normal 1.8-2.6 [facility] Comment on above: Performed By: #### P INR, CBCA, 4679-7, BMP, 84282-9, 2777-1 ####[facility] ([id number])[address] [address] PHOSPHORUSon 09-03-2024 Phosphate [Mass/Vol] 2.5 mg/dL Normal 2.4-4.9 [facility] Comment on above: Performed By: #### P INR, CBCA, 4679-7, BMP, , 2776-11 ####[facility] ([id number])[address], [address] [place] [address] PROTIME AND INRon 09-03-2024 INR Coag (PPP) [Relative time] 1.3 {INR} High 0.8-1.1 [facility] Comment on above: Performed By: #### P INR, CBCA, 4679-7, BMP, , 2776-11 ####[facility] ([id number])[address] [place] [address] PT Coag (PPP) [Time] 15.0 s High 9.8-13.2 [facility] Comment on above: Performed By: #### P INR, CBCA, 4679-7, BMP, , 2776-11 ####[facility] ([id number])[address] [place] [address] Reticulocytes/100 RBC (Bld)o n 09-03-2024 RETICULOCYTE COUNT 1.9 % Normal 0.4-2.2 [facility] Comment on above: Performed By: #### P INR, CBCA, 4679-7, BMP, , 2776-11 ####[facility] [facility] ([id number])[address], [address] [place] [address] BASIC METABOLIC PANLon 09-02 Anion gap [Moles/Vol] 9 mmol/L Normal 5-15 [facility] Comment on above: Performed By: #### C BCA, PINR, BMP, , 2777-1, FEPR, 2276-4 ####[facility] [place] [facility] ([id number])[address] [address] [place] [address] Calcium [Mass/Vol] 8.9 mg/dL Normal 8.5-10.5 [facility] Comment on above: Performed By: #### C BCA, PINR, BMP, 63745-5, 7-1, FEPR, 2276-4 ####[facility] ([id number])[address], [address] [place] [address] Chloride [Moles/Vol] 104 mmol/L Normal 98-109 [facility] Comment on above: Performed By: #### C BCA, PINR, BMP, 68323-5, 2776-, FEPR, 2276-4 ####[facility] ([id number])[address] [address] [place] [address] CO2 [Moles/Vol] 24 mmol/L Normal 22-32 [facility] Comment on above: Performed By: #### C BCA, PINR, BMP, 19365-1, 2776-1, FEPR, 2276-4 ####[facility] ([id number])[address] [address] [place] [address] Creatinine [Mass/Vol] 1.61 mg/dL High 0.60-1.30 [facility] Comment on above: Result Comment: METH OD TRACEABLE TO IDMS STANDARD Performed By: #### C BCA, PINR, BMP, 65226-5, 2776-1, FEPR, 2276-4 ####[facility] ([id number])[address] [address] GFR/1.73 sq M.predicted among non-blacks MDRD (S/P/Bld) [Vol rate/Area] 47 mL/min/{1.73_m2} Low >59 [facility] Comment on above: Result Comment: Repo rted eGFR is based on theCKD-EPI 2020 equation that doesnot use a race coefficient. Performed By: #### C BCA, PINR, BMP, 62115-5, 2777-1, FEPR, 2276-4 ####[facility] ([id number])[address], [address] [place] [address] Glucose [Mass/Vol] 92 mg/dL Normal 65-99 [facility] Comment on above: Performed By: #### C BCA, PINR, BMP, 60453-8, 2777-1, FEPR, 2276-4 ####[facility] ([id number])[address] [address] Potassium [Moles/Vol] 3.9 mmol/L Normal 3.5-5.0 [facility] Comment on above: Performed By: #### C BCA, PINR, BMP, 70328-3, 7-1, FEPR, 2276-4 ####[facility] ([id number])[address] [address] [place] [address] Sodium [Moles/Vol] 137 mmol/L Normal 134-146 [facility] Comment on above: Performed By: #### C BCA, PINR, BMP, 30195-6, 7-1, FEPR, 2276-4 ####[facility] ([id number])[address] [address] Urea nitrogen [Mass/Vol] 48 mg/dL High 5-27 [facility] Comment on above: Performed By: #### C BCA, PINR, BMP, 38875-3, 2777-1, FEPR, 2276-4 ####[facility] ([id number])[address] [address] CBC AND AUTO DIFFon 09-02-20 24 Erythrocyte distribution width (RBC) [Ratio] 16.3 % High 11.5-15.0 [facility] Comment on above: Performed By: #### C BCA, PINR, BMP, 69820-2, 2776-, FEPR, 2276-4 ####[facility] ([id number])[address] [address] Hematocrit (Bld) [Volume fraction] 17.9 % Low 39-49 [facility] Comment on above: Performed By: #### C BCA, PINR, BMP, 52050-9, 2776-1, FEPR, 2276-4 ####[facility] ([id number])[address] [address] [place] [address] Hemoglobin (Bld) [Mass/Vol] 6.2 g/dL Critically low 13.0-17.0 [facility] Comment on above: Performed By: #### C BCA, PINR, BMP, 77850-3, 2776-, FEPR, 2276-4 ####[facility] ([id number])[address] [address] Lymphocytes (Bld) [#/Vol] 1.0 10*3/uL Normal 1.0-3.5 [facility] Comment on above: Performed By: #### C BCA, PINR, BMP, 17548-1, 2776-, FEPR, 2276-4 ####[facility] ([id number])[address] [address] Lymphocytes/100 WBC (Bld) 8.6 % Normal [facility] Comment on above: Performed By: #### C BCA, PINR, BMP, 57872-7, 2776-1, FEPR, 2276-4 ####[facility] ([id number])[address] [address] MCH (RBC) [Entitic mass] 29.5 pg Normal 27-34 [facility] Comment on above: Performed By: #### C BCA, PINR, BMP, 28522-9, 2776-, FEPR, 2276-4 ####[facility] ([id number])[address], [address] [place] [address] MCHC (RBC) [Mass/Vol] 34.9 g/dL Normal 32-36 [facility] Comment on above: Performed By: #### C BCA, PINR, BMP, 96741-9, 2776-, FEPR, 2276-4 ####[facility] ([id number])[address], [address] [place] [address] MCV (RBC) [Entitic vol] 84 fL Normal 80-100 [facility] Comment on above: Performed By: #### C BCA, PINR, BMP, 20797-4, 2776-, FEPR, 6-4 ####[facility] ([id number])[address], [address] [place] [address] Monocytes (Bld) [#/Vol] 0.7 10*3/uL Normal 0-0.9 [facility] Comment on above: Performed By: #### C BCA, PINR, BMP, 77818-5, 2776-, FEPR, 6-4 ####[facility] ([id number])[address] [place] [address] Monocytes/100 WBC (Bld) 5.7 % Normal [facility] Comment on above: Performed By: #### C BCA, PINR, BMP, 24668-7, 2776-, FEPR, 6-4 ####[facility] ([id number])[address], [address] [place] [address] Neutrophils (Bld) [#/Vol] 9.9 10*3/uL High 1.5-6.6 [facility] Comment on above: Performed By: #### C BCA, PINR, BMP, 74552-0, 2776-, FEPR, 2276-4 ####[facility] ([id number])[address], [place] [address] Platelet mean volume (Bld) [Entitic vol] 8.9 fL Normal 7-12 [facility] Comment on above: Performed By: #### C BCA, PINR, BMP, 30144-6, 2777-1, FEPR, 2276-4 ####[facility] [facility] ([id number])[address] [address] Platelets (Bld) [#/Vol] 58 10*3/uL Low 150-450 [facility] Comment on above: Performed By: #### C BCA, PINR, BMP, 23472-5, 2777-1, FEPR, 2276-4 ####[facility] ([id number])[address], [place] [address] POLYCHROMASIA 1+ Abnormal NONE [facility] Comment on above: Performed By: #### C BCA, PINR, BMP, 71377-4, 2776-1, FEPR, 2276-4 ####[facility] [facility] ([id number])[address], [place] [address] RBC COUNT 2.12 X10E12/L Low 4.10-5.70 [facility] Comment on above: Performed By: #### C BCA, PINR, BMP, 97491-2, 7-1, FEPR, 2276-4 ####[facility] ([id number])[address] [place] [address] SEG NEUTROPHIL 85.7 % Normal [facility] Comment on above: Performed By: #### C BCA, PINR, BMP, 07171-6, 2777-1, FEPR, 2276-4 ####[facility] ([id number])[address] [address] WBC (Bld) [#/Vol] 11.6 10*3/uL High 4.0-11.0 [facility] Comment on above: Performed By: #### C BCA, PINR, BMP, 65607-2, 2776-1, FEPR, 2276-4 ####[facility] [facility] ([id number])[address], [place] [address] FERRITINon 09-02-2024 Ferritin [Mass/Vol] 833 ng/mL High 24-336 [facility] Comment on above: Performed By: #### C BCA, PINR, BMP, 31125-9, 2776-, FEPR, 2276-4 ####[facility] [place] [facility] ([id number])[address], [place] [address] HGB AND HCTon 09-02-2024 Hematocrit (Bld) [Volume fraction] 27.3 % Low 39-49 [facility] Comment on above: Performed By: #### H H ####[facility] [facility] ([id number])[address], [place] [address] Hemoglobin (Bld) [Mass/Vol] 9.4 g/dL Low 13.0-17.0 [facility] Comment on above: Performed By: #### H H ####[facility] [place] [facility] ([id number])[address], [place] [address] Hematocrit (Bld) [Volume fraction] 25.7 % Low 39-49 [facility] Comment on above: Performed By: #### H H ####[facility] [place] [facility] ([id number])[address], [place] [address] Hemoglobin (Bld) [Mass/Vol] 8.8 g/dL Low 13.0-17.0 [facility] Comment on above: Performed By: #### H H ####[facility] [place] [facility] ([id number])[address], [place] [address] Hematocrit (Bld) [Volume fraction] 25.0 % Low 39-49 [facility] Comment on above: Performed By: #### GRAHAM Valenzuela ####[facility] [place] [facility] ([id number])[address], [address] [place] [address] Hemoglobin (Bld) [Mass/Vol] 8.4 g/dL Low 13.0-17.0 [facility] Comment on above: Performed By: #### Gurwinder Purdy PINR ####[facility] [place] ([id number])[address] [place] [address] IRON PROFILEon 09-02-2024 Iron [Mass/Vol] 41 ug/dL Low 50-212 [facility] Comment on above: Performed By: #### C BCA, PINR, BMP, 50526-0, 2777-1, FEPR, 2276-4 ####[facility] ([id number])[address] [place] [address] IRON BINDING 120 ug/dL Low 250-425 [facility] Comment on above: Performed By: #### C BCA, PINR, BMP, 98381-3, 2776-1, FEPR, 2276-4 ####[facility] [place] ([id number])[address] [address] [place] [address] IRON SATURATION 34 % SATURATION Normal 20-50 [facility] Comment on above: Performed By: #### C BCA, PINR, BMP, 04879-4, 2777-1, FEPR, 2276-4 ####[facility] [place] [facility] ([id number])[address] [address] [place] [address] MAGNESIUMon 09-02-2024 Magnesium [Mass/Vol] 1.9 mg/dL Normal 1.8-2.6 [facility] Comment on above: Performed By: #### C BCA, PINR, BMP, 22405-2, 2777-1, FEPR, 2276-4 ####[facility] [place] ([id number])[address], [place] [address] Magnesium Ionized ISE (Bld) [Moles/Vol]on 09-02-2024 Magnesium [Moles/Vol] 0.72 mmol/L Normal 0.45-0.74 [facility] Comment on above: Result Comment: NEW REFERENCE RANGE Performed By: #### 7 3572-0 ####[facility] ([id number])[address], [place] [address] PHOSPHORUSon 09-02-2024 Phosphate [Mass/Vol] 2.5 mg/dL Normal 2.4-4.9 [facility] Comment on above: Performed By: #### C BCA, PINR, BMP, , 2776-11, FEPR, 6-4 ####[facility] ([id number])[address], [address] [place] [address] PROTIME AND INRon 09-02-2024 INR Coag (PPP) [Relative time] 1.3 {INR} High 0.8-1.1 [facility] Comment on above: Performed By: #### Gurwinder Purdy PINR ####[facility] ([id number])[address] [address] [place] [address], [place] [address] PT Coag (PPP) [Time] 15.2 s High 9.8-13.2 [facility] Comment on above: Performed By: #### Gurwinder Purdy PINR ####[facility] ([id number])[address], [address], [place] [address] INR Coag (PPP) [Relative time] 1.5 {INR} High 0.8-1.1 [facility] Comment on above: Performed By: #### C BCA, PINR, BMP, , 2776-, FEPR, 2276-4 ####[facility] ([id number])[address], [address] [place] [address] PT Coag (PPP) [Time] 17.4 s High 9.8-13.2 [facility] Comment on above: Performed By: #### C BCA, PINR, BMP, 90563-3, 2777-1, FEPR, 2276-4 ####[facility] ([id number])[address], [address] [place] [address] 50/50 MIX STUDYon 09-01-2024 aPTT Coag (Bld) [Time] 30 s Normal 26-37 [facility] Comment on above: Performed By: #### C BCA, 4679-7, BMP, 83622-7, 2777-1, 61515- 1, MIX, 3193-0, 3198-9, 3218-5 ####[facility] ([id number])[address] [place] [address] PT 1:1 MIX 12.4 sec Normal 9.5-12.6 [facility] Comment on above: Performed By: #### C BCA, 4679-7, BMP, 76174-0, 2777-1, 75919- 1, MIX, 3193-0, 3198-9, 3218-5 ####[facility] ([id number])[address], [address] [place] [address] PT 1:1 MIX,INCUBATE 13.1 sec High 9.5-12.6 [facility] Comment on above: Performed By: #### C BCA, 4679-7, BMP, 15622-8, 2777-1, 55343- 1, MIX, 3193-0, 3198-9, 3218-5 ####[facility] ([id number])[address], [address] [place] [address] PT Coag (PPP) [Time] 17.7 s High 9.8-13.2 [facility] Comment on above: Performed By: #### C BCA, 4679-7, BMP, 16514-0, 2777-1, 40320- 1, MIX, 3193-0, 3198-9, 3218-5 ####[facility] ([id number])[address], [place] [address] BASIC METABOLIC PANLon 09-01 Anion gap [Moles/Vol] 12 mmol/L Normal 5-15 [facility] Comment on above: Performed By: #### C BCA, 4679-7, BMP, 29573-1, 2777-1, 99953- 1, MIX, 3193-0, 3198-9, 3218-5 ####[facility] ([id number])[address] [place] [address] Calcium [Mass/Vol] 8.9 mg/dL Normal 8.5-10.5 [facility] Comment on above: Performed By: #### C BCA, 4679-7, BMP, 69068-9, 2777-1, 51635- 1, MIX, 3193-0, 3198-9, 3218-5 ####[facility] ([id number])[address] [place] [address] Chloride [Moles/Vol] 104 mmol/L Normal 98-109 [facility] Comment on above: Performed By: #### C BCA, 4679-7, BMP, 36504-1, 2777-1, 93644- 1, MIX, 3193-0, 3198-9, 3218-5 ####[facility] ([id number])[address], [address] [address] CO2 [Moles/Vol] 23 mmol/L Normal 22-32 [facility] Comment on above: Performed By: #### C BCA, 4679-7, BMP, 38677-3, 2777-1, 44444- 1, MIX, 3193-0, 3198-9, 3218-5 ####[facility] ([id number])[address] [address] [address] Creatinine [Mass/Vol] 3.44 mg/dL High 0.60-1.30 [facility] Comment on above: Result Comment: METH OD TRACEABLE TO IDMS STANDARD Performed By: #### C BCA, 4679-7, BMP, 37261-7, 2777-1, 99384-0, MIX, 3193-0, 3198-9, 3218-5 ####[facility] ([id number])[address] [address] GFR/1.73 sq M.predicted among non-blacks MDRD (S/P/Bld) [Vol rate/Area] 19 mL/min/{1.73_m2} Low >59 [facility] Comment on above: Result Comment: Repo rted eGFR is based on theCKD-EPI 2020 equation that doesnot use a race coefficient. Performed By: #### C BCA, 4679-7, BMP, 42972-9, 2777-1, 55760-8, MIX, 3193-0, 3198-9, 3218-5 ####[facility] ([id number])[address] [address] Glucose [Mass/Vol] 103 mg/dL High 65-99 [facility] Comment on above: Performed By: #### C BCA, 4679-7, BMP, 80804-9, 2777-1, 41283- 1, MIX, 3193-0, 3198-9, 3218-5 ####[facility] ([id number])[address] [address] Potassium [Moles/Vol] 6.0 mmol/L High 3.5-5.0 [facility] Comment on above: Performed By: #### C BCA, 4679-7, BMP, 90013-2, 2777-1, 19669- 1, MIX, 3193-0, 3198-9, 3218-5 ####[facility] ([id number])[address] [address] Sodium [Moles/Vol] 139 mmol/L Normal 134-146 [facility] Comment on above: Performed By: #### C BCA, 4679-7, BMP, 93233-6, 2777-1, 79911- 1, MIX, 3193-0, 3198-9, 3218-5 ####[facility] ([id number])[address], [address] [place] [address] Urea nitrogen [Mass/Vol] 119 mg/dL High 5-27 [facility] Comment on above: Performed By: #### C BCA, 4679-7, BMP, 22328-5, 2777-1, 47340- 1, MIX, 3193-0, 3198-9, 3218-5 ####[facility] ([id number])[address], [address] [place] [address] CBC AND AUTO DIFFon 10-30-20 24 ABSOLUTE BASOPHIL 0.1 X10E9/L Normal 0.0-0.2 [facility] Comment on above: Performed By: #### C BCA, 4679-7, BMP, 86171-4, 2777-1, 12079- 1, MIX, 3193-0, 3198-9, 3218-5 ####[facility] ([id number])[address] [address] [place] [address] Basophils/100 WBC (Bld) 1.0 % Normal [facility] Comment on above: Performed By: #### C BCA, 4679-7, BMP, 71097-9, 2777-1, 42734- 1, MIX, 3193-0, 3198-9, 3218-5 ####[facility] ([id number])[address], [address] [place] [address] Erythrocyte distribution width (RBC) [Ratio] 15.8 % High 11.5-15.0 [facility] Comment on above: Performed By: #### C BCA, 4679-7, BMP, 17972-0, 2777-1, 57769- 1, MIX, 3193-0, 3198-9, 3218-5 ####[facility] ([id number])[address], [place] [address] Hematocrit (Bld) [Volume fraction] 17.7 % Low 39-49 [facility] Comment on above: Performed By: #### C BCA, 4679-7, BMP, 11451-2, 2777-1, 17869- 1, MIX, 3193-0, 3198-9, 3218-5 ####[facility] ([id number])[address], [address] [place] [address] Hemoglobin (Bld) [Mass/Vol] 6.1 g/dL Critically low 13.0-17.0 [facility] Comment on above: Performed By: #### C BCA, 4679-7, BMP, 72518-4, 2777-1, 99769- 1, MIX, 3193-0, 3198-9, 3218-5 ####[facility] ([id number])[address], [address] [place] [address] Lymphocytes (Bld) [#/Vol] 1.2 10*3/uL Normal 1.0-3.5 [facility] Comment on above: Performed By: #### C BCA, 4679-7, BMP, 48450-5, 2777-1, 67245- 1, MIX, 3193-0, 3198-9, 3218-5 ####[facility] ([id number])[address], [address] [place] [address] Lymphocytes/100 WBC (Bld) 11.5 % Normal [facility] Comment on above: Performed By: #### C BCA, 4679-7, BMP, 52500-9, 2777-1, 54495- 1, MIX, 3193-0, 3198-9, 3218-5 ####[facility] ([id number])[address], [address] [place] [address] MCH (RBC) [Entitic mass] 29.7 pg Normal 27-34 [facility] Comment on above: Performed By: #### C BCA, 4679-7, BMP, 17508-7, 2777-1, 60397- 1, MIX, 3193-0, 3198-9, 3218-5 ####[facility] ([id number])[address], [address] [place] [address] MCHC (RBC) [Mass/Vol] 34.6 g/dL Normal 32-36 [facility] Comment on above: Performed By: #### C BCA, 4679-7, BMP, 24020-7, 2777-1, 07825- 1, MIX, 3193-0, 3198-9, 3218-5 ####[facility] ([id number])[address], [address], [place] [address] MCV (RBC) [Entitic vol] 86 fL Normal 80-100 [facility] Comment on above: Performed By: #### C BCA, 4679-7, BMP, 69272-7, 2777-1, 06714- 1, MIX, 3193-0, 3198-9, 3218-5 ####[facility] ([id number])[address], [place] [address] Monocytes (Bld) [#/Vol] 0.2 10*3/uL Normal 0-0.9 [facility] Comment on above: Performed By: #### C BCA, 4679-7, BMP, 26724-0, 2777-1, 08376- 1, MIX, 3193-0, 3198-9, 3218-5 ####[facility] ([id number])[address], [address], [place] [address] Monocytes/100 WBC (Bld) 1.9 % Normal [facility] Comment on above: Performed By: #### C BCA, 4679-7, BMP, 05502-0, 2777-1, 80648- 1, MIX, 3193-0, 3198-9, 3218-5 ####[facility] ([id number])[address] [address] MYELOCYTE 1.0 % Normal [facility] Comment on above: Performed By: #### C BCA, 4679-7, BMP, 07356-9, 2777-1, 17156- 1, MIX, 3193-0, 3198-9, 3218-5 ####[facility] ([id number])[address], [address] [place] [address] Neutrophils (Bld) [#/Vol] 8.6 10*3/uL High 1.5-6.6 [facility] Comment on above: Performed By: #### C BCA, 4679-7, BMP, 61508-9, 2777-1, 86055- 1, MIX, 3193-0, 3198-9, 3218-5 ####[facility] ([id number])[address], [address] [place] [address] Platelet mean volume (Bld) [Entitic vol] 9.8 fL Normal 7-12 [facility] Comment on above: Performed By: #### C BCA, 4679-7, BMP, 92514-7, 2777-1, 02821- 1, MIX, 3193-0, 3198-9, 3218-5 ####[facility] ([id number])[address], [address], [place] [address] Platelets (Bld) [#/Vol] 72 10*3/uL Low 150-450 [facility] Comment on above: Performed By: #### C BCA, 4679-7, BMP, 02497-7, 2777-1, 81937- 1, MIX, 3193-0, 3198-9, 3218-5 ####[facility] ([id number])[address], [address] [place] [address] RBC COUNT 2.06 X10E12/L Low 4.10-5.70 [facility] Comment on above: Performed By: #### C BCA, 4679-7, BMP, 38868-0, 2777-1, 93667- 1, MIX, 3193-0, 3198-9, 3218-5 ####[facility] ([id number])[address], [address] [place] [address] RBC morphology finding Nom (Bld) NORMAL Normal [facility] Comment on above: Performed By: #### C BCA, 4679-7, BMP, 45334-6, 2777-1, 71239- 1, MIX, 3193-0, 3198-9, 3218-5 ####[facility] ([id number])[address], [address] [place] [address] SEG NEUTROPHIL 84.6 % Normal [facility] Comment on above: Performed By: #### C BCA, 4679-7, BMP, 07948-4, 2777-1, 22958- 1, MIX, 3193-0, 3198-9, 3218-5 ####[facility] ([id number])[address], [address] [place] [address] WBC (Bld) [#/Vol] 10.2 10*3/uL Normal 4.0-11.0 [facility] Comment on above: Performed By: #### C BCA, 4679-7, BMP, 55914-6, 2777-1, 15191- 1, MIX, 3193-0, 3198-9, 3218-5 ####[facility] ([id number])[address], [address] [place] [address] Coagulation factor V activit y actual/normal Coag (PPP) [Relative time]on 09-01-2024 FACTOR 5 ASSAY 105 % act Normal 62-139 [facility] Comment on above: Performed By: #### C BCA, 4679-7, BMP, 14051-0, 2777-1, 66508- 1, MIX, 3193-0, 3198-9, 3218-5 ####[facility] ([id number])[address] [address] Coagulation factor VII activ ity actual/normal Coag (PPP) [Relative time]on 09-01-2024 FACTOR 7 ASSAY 25 % act Low 50-129 [facility] Comment on above: Performed By: #### C BCA, 4679-7, BMP, 28734-7, 2777-1, 48807- 1, MIX, 3193-0, 3198-9, 3218-5 ####[facility] ([id number])[address], [address] [place] [address] Coagulation factor X activit y actual/normal Coag (PPP) [Relative time]on 09-01-2024 FACTOR 10 ASSAY 63 % act Low 70-150 [facility] Comment on above: Performed By: #### C BCA, 4679-7, BMP, 68581-6, 2777-1, 46521- 1, MIX, 3193-0, 3198-9, 3218-5 ####[facility] ([id number])[address], [address] [place] [address] Glucose Glucometer (BldC) [M ass/Vol]on 09-01-2024 Glucose [Mass/Vol] 109 mg/dL High 65-99 [facility] HGB AND HCTon 09-01-2024 Hematocrit (Bld) [Volume fraction] 22.0 % Low 39-49 [facility] Comment on above: Performed By: #### H H ####[facility] ([id number])[address], [address] [place] [address] Hemoglobin (Bld) [Mass/Vol] 7.5 g/dL Low 13.0-17.0 [facility] Comment on above: Performed By: #### H H ####[facility] ([id number])[address] [place] [address] Hematocrit (Bld) [Volume fraction] 26.5 % Low 39-49 [facility] Comment on above: Performed By: #### H H ####[facility] ([id number])[address], [address], [place] [address] Hemoglobin (Bld) [Mass/Vol] 8.9 g/dL Low 13.0-17.0 [facility] Comment on above: Performed By: #### H H ####[facility] ([id number])[address] [place] [place] [address] Hematocrit (Bld) [Volume fraction] 18.8 % Low 39-49 [facility] Comment on above: Performed By: #### H H ####[facility] ([id number])[address], [place] [address] Hemoglobin (Bld) [Mass/Vol] 6.3 g/dL Critically low 13.0-17.0 [facility] Comment on above: Performed By: #### H H ####[facility] ([id number])[address], [address] [place] [address] HIV 1+2 Ab+HIV1 p24 Ag IA Ql on 09-01-2024 HIV 1 and 2 Ab/Ag Screen Non-Reactive Normal NRCT [facility] Comment on above: Result Comment: This [...] Performed By: #### C KERRY, 4679-7, BMP, 58434-0, 2777-1, 91370-4, MIX, 3193-0, 3198-9, 3218-5 ####[facility] ([id number])[address], [address] [place] [address] IR ANGIO VISCERAL W WO FLUSH on 09-01-2024 IR ANGIO VISCERAL W WO FLUSH Normal [facility] Immature Platelet Fractionon 09-01-2024 Immature Platelet Fraction 6.6 % Normal 1.0-11.4 [facility] Comment on above: Result Comment: NOTE Performed At: [facility] ([facility] [place], [place] [address]Medical Director: TAMY MUELLER Number: [id number] Laboratory comment Abhishek (Repo rt)on 09-01-2024 UNLISTED LAB TEST Sent to reference lab Normal [facility] MAGNESIUMon 09-01-2024 Magnesium [Mass/Vol] 1.8 mg/dL Normal 1.8-2.6 [facility] Comment on above: Performed By: #### C KERRY, 4679-7, BMP, 32714-9, 2777-1, 64643- 1, MIX, 3193-0, 3198-9, 3218-5 ####[facility] ([id number])[address], [address] [place] [address] Magnesium Ionized ISE (Bld) [Moles/Vol]on 09-01-2024 Magnesium [Moles/Vol] 0.60 mmol/L Normal 0.45-0.74 [facility] Comment on above: Result Comment: NEW REFERENCE RANGE Performed By: #### 7 3572-0 ####[facility] ([id number])[address], [address] [place] [address] PHOSPHORUSon 09-01-2024 Phosphate [Mass/Vol] 4.2 mg/dL Normal 2.4-4.9 [facility] Comment on above: Performed By: #### C BCA, 4679-7, BMP, 48613-1, 2777-1, 53668- 1, MIX, 3193-0, 3198-9, 3218-5 ####[facility] ([id number])[address], [address] [place] [address] POTASSIUMon 09-01-2024 Potassium [Moles/Vol] 5.6 mmol/L High 3.5-5.0 [facility] Comment on above: Performed By: #### 2 823-3 ####[facility] ([id number])[address], [address] [place] [address] Reticulocytes/100 RBC (Bld)o n 09-01-2024 RETICULOCYTE COUNT <0.4 Low 0.4-2.2 [facility] Comment on above: Performed By: #### C BCA, 4679-7, BMP, 08811-2, 2777-1, 84122- 1, MIX, 3193-0, 3198-9, 3218-5 ####[facility] ([id number])[address], [address] [place] [address] BASIC METABOLIC PANLon 08-31 Anion gap [Moles/Vol] 12 mmol/L Normal 5-15 [facility] Comment on above: Performed By: #### C BCA, BMP, 56929-1, 2776-1, PINR, FEPR, 2276-4, 2284-8, 9 ####[facility] ([id number])[address] [address] [place] [address] Calcium [Mass/Vol] 9.2 mg/dL Normal 8.5-10.5 [facility] Comment on above: Performed By: #### C BCA, BMP, 30510-0, 2776-1, PINR, FEPR, 2276-4, 2284-8, 2132-07 ####[facility] ([id number])[address], [address] [place] [address] Chloride [Moles/Vol] 103 mmol/L Normal 98-109 [facility] Comment on above: Performed By: #### C BCA, BMP, 93299-2, 7-1, PINR, FEPR, 2276-4, 2283-8, 2132-07 ####[facility] ([id number])[address], [address] [place] [address] CO2 [Moles/Vol] 24 mmol/L Normal 22-32 [facility] Comment on above: Performed By: #### C BCA, BMP, 87716-8, 2776-, PINR, FEPR, 6-4, 2283-8, 2132-07 ####[facility] ([id number])[address], [address] [place] [address] Creatinine [Mass/Vol] 3.23 mg/dL High 0.60-1.30 [facility] Comment on above: Result Comment: METH OD TRACEABLE TO IDMS STANDARD Performed By: #### C BCA, BMP, , 2776-, PINR, FEPR, 6-4, 2283-8, 2132-07 ####[facility] ([id number])[address] [address] [place] [address] GFR/1.73 sq M.predicted among non-blacks MDRD (S/P/Bld) [Vol rate/Area] 20 mL/min/{1.73_m2} Low >59 [facility] Comment on above: Result Comment: Repo rted eGFR is based on theCKD-EPI 2020 equation that doesnot use a race coefficient. Performed By: #### C BCA, BMP, 99266-6, 2776-1, PINR, FEPR, 2276-4, 2283-8, 2132-07 ####[facility] ([id number])[address], [place] [address] Glucose [Mass/Vol] 134 mg/dL High 65-99 [facility] Comment on above: Performed By: #### C BCA, BMP, , 2776-11, PINR, FEPR, 2276-4, 2283-8, 2132-07 ####[facility] ([id number])[address] [address] Potassium [Moles/Vol] 4.8 mmol/L Normal 3.5-5.0 [facility] Comment on above: Performed By: #### C BCA, BMP, , 2776-11, PINR, FEPR, 6-4, 2283-8, 2132-07 ####[facility] ([id number])[address] [address] Sodium [Moles/Vol] 139 mmol/L Normal 134-146 [facility] Comment on above: Performed By: #### C BCA, BMP, , 2776-11, PINR, FEPR, 2275-4, 2283-, 2132-07 ####[facility] ([id number])[address] [address] Urea nitrogen [Mass/Vol] 102 mg/dL High 5-27 [facility] Comment on above: Performed By: #### C BCA, BMP, , 2776-11, PINR, FEPR, 6-4, 2283-8, 2132-07 ####[facility] ([id number])[address] [place] [address]186 CBC AND AUTO DIFFon 10-29-20 24 ABSOLUTE BASOPHIL 0.0 X10E9/L Normal 0.0-0.2 [facility] Comment on above: Performed By: #### C BCA, BMP, , 2776-11, PINR, FEPR, 2276-4, 2284-8, 2132-07 ####[facility] ([id number])[address] [address] ABSOLUTE NEUTROPHIL 5.5 X10E9/L Normal 1.5-6.6 [facility] Comment on above: Performed By: #### C BCA, BMP, 77278-4, 2776-, PINR, FEPR, 2276-4, 2284-8, 2132-07 ####[facility] ([id number])[address], [address] [place] [address]366 Basophils/100 WBC (Bld) 0.1 % Normal [facility] Comment on above: Performed By: #### C BCA, BMP, 03637-6, 2776-, PINR, FEPR, 2276-4, 2284-8, 2132-07 ####[facility] ([id number])[address], [address] [place] [address] 65483 Eosinophils (Bld) [#/Vol] 0.0 10*3/uL Normal 0.0-0.4 [facility] Comment on above: Performed By: #### C BCA, BMP, , 2776-, PINR, FEPR, 2276-4, 2284-8, 2132-07 ####[facility] ([id number])[address] [address] [place] [address]10 Eosinophils/100 WBC (Bld) 0.0 % Normal [facility] Comment on above: Performed By: #### C BCA, BMP, 49571-8, 2776-, PINR, FEPR, 2276-4, 2284-8, 2132-07 ####[facility] ([id number])[address], [address] [place] [address]649 Erythrocyte distribution width (RBC) [Ratio] 16.1 % High 11.5-15.0 [facility] Comment on above: Performed By: #### C BCA, BMP, 33609-4, 2776-, PINR, FEPR, 2276-4, 2284-8, 2132-07 ####[facility] ([id number])[address] [address] Hematocrit (Bld) [Volume fraction] 19.5 % Low 39-49 [facility] Comment on above: Performed By: #### C BCA, BMP, , 2776-, PINR, FEPR, 2276-4, 4-8, 2132-07 ####[facility] ([id number])[address] [address] Hemoglobin (Bld) [Mass/Vol] 6.7 g/dL Critically low 13.0-17.0 [facility] Comment on above: Performed By: #### C BCA, BMP, , 2776-11, PINR, FEPR, 2276-4, 2283-8, 2132-07 ####[facility] ([id number])[address] [address] [place] [address] Lymphocytes (Bld) [#/Vol] 0.3 10*3/uL Low 1.0-3.5 [facility] Comment on above: Performed By: #### C BCA, BMP, , 2776-11, PINR, FEPR, 2276-4, 4-8, 2132-07 ####[facility] ([id number])[address] [address] Lymphocytes/100 WBC (Bld) 4.4 % Normal [facility] Comment on above: Performed By: #### C BCA, BMP, 37135-3, 2776-, PINR, FEPR, 2276-4, 4-8, 2132-07 ####[facility] [place] [facility] ([id number])[address], [address] [place] [address] MCH (RBC) [Entitic mass] 29.5 pg Normal 27-34 [facility] Comment on above: Performed By: #### C BCA, BMP, 68905-0, 2776-1, PINR, FEPR, 2276-4, 2283-8, 2132-07 ####[facility] ([id number])[address] [address] MCHC (RBC) [Mass/Vol] 34.3 g/dL Normal 32-36 [facility] Comment on above: Performed By: #### C BCA, BMP, 75926-6, 2776-, PINR, FEPR, 2276-4, 2283-8, 2132-07 ####[facility] ([id number])[address] [address] MCV (RBC) [Entitic vol] 86 fL Normal 80-100 [facility] Comment on above: Performed By: #### C BCA, BMP, , 2776-, PINR, FEPR, 6-4, 2283-8, 2132-07 ####[facility] ([id number])[address] [address] Monocytes (Bld) [#/Vol] 0.1 10*3/uL Normal 0-0.9 [facility] Comment on above: Performed By: #### C BCA, BMP, , 2776-, PINR, FEPR, 2276-4, 2283-8, 2132-07 ####[facility] ([id number])[address] [address] Monocytes/100 WBC (Bld) 2.2 % Normal [facility] Comment on above: Performed By: #### C BCA, BMP, 23036-1, 2776-, PINR, FEPR, 2276-4, 2283-8, 2132-07 ####[facility] ([id number])[address], [address] [place] [address] Neutrophils/100 WBC (Bld) 93.3 % Normal [facility] Comment on above: Performed By: #### C BCA, BMP, 76104-0, 2776-1, PINR, FEPR, 2276-4, 2284-8, 2132-07 ####[facility] ([id number])[address], [address] [place] [address] Platelet mean volume (Bld) [Entitic vol] 9.7 fL Normal 7-12 [facility] Comment on above: Performed By: #### C BCA, BMP, 90972-4, 2776-, PINR, FEPR, 2276-4, 2284-8, 2132-07 ####[facility] ([id number])[address] [address] [place] [address] Platelets (Bld) [#/Vol] 38 10*3/uL Low 150-450 [facility] Comment on above: Performed By: #### C BCA, BMP, 46558-3, 2776-, PINR, FEPR, 2276-4, 2284-8, 2132-07 ####[facility] ([id number])[address] [address] [place] [address] RBC COUNT 2.26 X10E12/L Low 4.10-5.70 [facility] Comment on above: Performed By: #### C BCA, BMP, 11560-6, 2776-, PINR, FEPR, 2276-4, 2284-8, 2132-07 ####[facility] ([id number])[address], [address] [place] [address] WBC (Bld) [#/Vol] 5.9 10*3/uL Normal 4.0-11.0 [facility] Comment on above: Performed By: #### C BCA, BMP, 60173-8, 2777-1, PINR, FEPR, 2276-4, 2284-8, 2132-07 ####[facility] ([id number])[address] [address] FERRITINon 08-31-2024 Ferritin [Mass/Vol] 653 ng/mL High 24-336 [facility] Comment on above: Performed By: #### C BCA, BMP, 01516-6, 7-1, PINR, FEPR, 2276-4, 2284-8, 2132-07 ####[facility] ([id number])[address] [place] [address] Folate [Mass/Vol]on 08-31-20 24 FOLIC ACID 12.2 ng/mL Normal >5.8 [facility] Comment on above: Result Comment: NEW REFERENCE RANGE Performed By: #### C BCA, BMP, 72502-7, 2776-1, PINR, FEPR, 2276-4, 2284-8, 2132-07 ####[facility] ([id number])[address], [place] [address] HGB AND HCTon 08-31-2024 Hematocrit (Bld) [Volume fraction] 17.9 % Low 39-49 [facility] Comment on above: Performed By: #### H H ####[facility] ([id number])[address], [place] [address] Hemoglobin (Bld) [Mass/Vol] 6.1 g/dL Critically low 13.0-17.0 [facility] Comment on above: Performed By: #### H H ####[facility] ([id number])[address], [place] [address] Hematocrit (Bld) [Volume fraction] 22.0 % Low 39-49 [facility] Comment on above: Performed By: #### H H, PLTCT ####[facility] ([id number])[address], [address], [place] [address] Hemoglobin (Bld) [Mass/Vol] 7.6 g/dL Low 13.0-17.0 [facility] Comment on above: Performed By: #### H H, PLTCT ####[facility] ([id number])[address] [address] Hematocrit (Bld) [Volume fraction] 25.2 % Low 39-49 [facility] Comment on above: Performed By: #### H H ####[facility] ([id number])[address] [address] Hemoglobin (Bld) [Mass/Vol] 8.7 g/dL Low 13.0-17.0 [facility] Comment on above: Performed By: #### H H ####[facility] ([id number])[address], [address] [place] [address] Hematocrit (Bld) [Volume fraction] 28.3 % Low 39-49 [facility] Comment on above: Performed By: #### H H, 4679-7 ####[facility] ([id number])[address] [address] Hemoglobin (Bld) [Mass/Vol] 9.7 g/dL Low 13.0-17.0 [facility] Comment on above: Performed By: #### H H, 4679-7 ####[facility] ([id number])[address], [address], [place] [address] IRON PROFILEon 08-31-2024 Iron [Mass/Vol] 42 ug/dL Low 50-212 [facility] Comment on above: Performed By: #### C BCA, BMP, 70374-4, 2777-1, PINR, FEPR, 2276-4, 2284-8, 2131- ####[facility] ([id number])[address] [place] [address] IRON BINDING 116 ug/dL Low 250-425 [facility] Comment on above: Performed By: #### C BCA, BMP, 86492-5, 2776-1, PINR, FEPR, 2276-4, 2283-8, 2132-07 ####[facility] ([id number])[address] [place] [address] IRON SATURATION 36 % SATURATION Normal 20-50 [facility] Comment on above: Performed By: #### C BCA, BMP, 90884-9, 2776-1, PINR, FEPR, 6-4, 2283-8, 2132-07 ####[facility] ([id number])[address], [place] [address] MAGNESIUMon 08-31-2024 Magnesium [Mass/Vol] 2.1 mg/dL Normal 1.8-2.6 [facility] Comment on above: Performed By: #### C BCA, BMP, 72821-3, 2776-1, PINR, FEPR, 2276-4, 2283-8, 2132-07 ####[facility] ([id number])[address], [address] [place] [place] [address] PHOSPHORUSon 08-31-2024 Phosphate [Mass/Vol] 5.9 mg/dL High 2.4-4.9 [facility] Comment on above: Performed By: #### C BCA, BMP, 33238-5, 2776-1, PINR, FEPR, 2276-4, 2283-8, 2132-07 ####[facility] ([id number])[address], [address] [place] [place] [address] PLATELET COUNT AND MPVon Platelet mean volume (Bld) [Entitic vol] 9.8 fL Normal 7-12 [facility] Comment on above: Performed By: #### H H, PLTCT ####[facility] ([id number])[address], [address], [place] [address] Platelets (Bld) [#/Vol] 103 10*3/uL Low 150-450 [facility] Comment on above: Performed By: #### H H, PLTCT ####[facility] ([id number])[address], [address] [address] PROTIME AND INRon 08-31-2024 INR Coag (PPP) [Relative time] 1.5 {INR} High 0.8-1.1 [facility] Comment on above: Performed By: #### C BCA, BMP, , 2776-11, PINR, FEPR, 2276-4, 2283-8, 2132-07 ####[facility] ([id number])[address], [address], [place] [address] PT Coag (PPP) [Time] 17.2 s High 9.8-13.2 [facility] Comment on above: Performed By: #### C BCA, BMP, , 2776-11, PINR, FEPR, 6-4, 2284-06, 2132-07 ####[facility] ([id number])[address] [address] Reticulocytes/100 RBC (Bld)o n 08-31-2024 RETICULOCYTE COUNT <0.4 Low 0.4-2.2 [facility] Comment on above: Performed By: #### H H, 4679-7 ####[facility] ([id number])[address] [place] [place] [address] VITAMIN B12on 08-31-2024 Cobalamin (Vitamin B12) [Mass/Vol] 185 pg/mL Normal 180-914 [facility] Comment on above: Performed By: #### C BCA, BMP, , 2777-1, PINR, FEPR, 2276-4, 2284-8, 2132-9 ####[facility] ([id number])[address], [address], [place] [address] BASIC METABOLIC PANLon 08-30 Anion gap [Moles/Vol] 12 mmol/L Normal 5-15 [facility] Comment on above: Performed By: #### C BCA, BMP, 80178-2, 2777-1, PINR, 86064-2, 22236-2 ####[facility] ([id number])[address] [place] [place] [address] Calcium [Mass/Vol] 9.1 mg/dL Normal 8.5-10.5 [facility] Comment on above: Performed By: #### C BCA, BMP, 63281-0, 2777-1, PINR, 12621-0, 10246-6 ####[facility] ([id number])[address] [place] [place] [address] Chloride [Moles/Vol] 101 mmol/L Normal 98-109 [facility] Comment on above: Performed By: #### C BCA, BMP, 25640-2, 2777-1, PINR, 22632-5, 92669-1 ####[facility] ([id number])[address], [address] [address] CO2 [Moles/Vol] 25 mmol/L Normal 22-32 [facility] Comment on above: Performed By: #### C BCA, BMP, 97539-2, 2777-1, PINR, 85185-6, 59807-6 ####[facility] ([id number])[address], [address], [place] [address] Creatinine [Mass/Vol] 2.91 mg/dL High 0.60-1.30 [facility] Comment on above: Result Comment: METH OD TRACEABLE TO IDMS STANDARD Performed By: #### C BCA, BMP, 22149-6, 2776-, PINR, 96487-0, 59712-0 ####[facility] ([id number])[address] [address] [address] GFR/1.73 sq M.predicted among non-blacks MDRD (S/P/Bld) [Vol rate/Area] 23 mL/min/{1.73_m2} Low >59 [facility] Comment on above: Result Comment: Repo rted eGFR is based on theCKD-EPI 2020 equation that doesnot use a race coefficient. Performed By: #### C BCA, BMP, , 2776-, PINR, 71566-0, 80337-3 ####[facility] ([id number])[address] [address] [address] Glucose [Mass/Vol] 96 mg/dL Normal 65-99 [facility] Comment on above: Performed By: #### C BCA, BMP, , 2776-, PINR, 39454-7, 67365-1 ####[facility] ([id number])[address] [address] Potassium [Moles/Vol] 4.4 mmol/L Normal 3.5-5.0 [facility] Comment on above: Performed By: #### C BCA, BMP, , 2776-, PINR, 09746-0, 83222-6 ####[facility] ([id number])[address] [address] Sodium [Moles/Vol] 138 mmol/L Normal 134-146 [facility] Comment on above: Performed By: #### C BCA, BMP, , 2776-, PINR, 33767-0, 96977-9 ####[facility] ([id number])[address] [address] Urea nitrogen [Mass/Vol] 76 mg/dL High 5-27 [facility] Comment on above: Performed By: #### C BCA, BMP, , 2776-, PINR, 67774-7, 99140-1 ####[facility] ([id number])[address], [address] [place] [address] CBC AND AUTO DIFFon 08-30-20 24 ABSOLUTE BASOPHIL 0.0 X10E9/L Normal 0.0-0.2 [facility] Comment on above: Performed By: #### C BCA, BMP, , 2776-, PINR, 39134-7, 07306-8 ####[facility] ([id number])[address], [address] [place] [address] ABSOLUTE NEUTROPHIL 8.6 X10E9/L High 1.5-6.6 [facility] Comment on above: Performed By: #### C BCA, BMP, , 2776-11, PINR, 41133-9, 46294-0 ####[facility] ([id number])[address], [address] [place] [address] Basophils/100 WBC (Bld) 0.4 % Normal [facility] Comment on above: Performed By: #### C BCA, BMP, , 2776-, PINR, 38700-5, 37934-4 ####[facility] ([id number])[address], [address] [place] [address] Eosinophils (Bld) [#/Vol] 0.2 10*3/uL Normal 0.0-0.4 [facility] Comment on above: Performed By: #### C BCA, BMP, , 2776-, PINR, 23745-3, 47394-0 ####[facility] ([id number])[address], [address] [place] [address] Eosinophils/100 WBC (Bld) 1.6 % Normal [facility] Comment on above: Performed By: #### C BCA, BMP, 28410-7, 2777-1, PINR, 00108-5, 96034-4 ####[facility] ([id number])[address] [address] [place] [address] Erythrocyte distribution width (RBC) [Ratio] 16.8 % High 11.5-15.0 [facility] Comment on above: Performed By: #### C BCA, BMP, 60872-8, 2777-1, PINR, 15332-6, 41050-9 ####[facility] ([id number])[address] [address] [place] [address] Hematocrit (Bld) [Volume fraction] 22.4 % Low 39-49 [facility] Comment on above: Performed By: #### C BCA, BMP, 48084-2, 2776-, PINR, 90434-8, 59329-4 ####[facility] ([id number])[address] [address] [place] [address] Hemoglobin (Bld) [Mass/Vol] 7.5 g/dL Low 13.0-17.0 [facility] Comment on above: Performed By: #### C BCA, BMP, 10066-7, 7-1, PINR, 02730-1, 15229-9 ####[facility] ([id number])[address] [address] Lymphocytes (Bld) [#/Vol] 1.3 10*3/uL Normal 1.0-3.5 [facility] Comment on above: Performed By: #### C BCA, BMP, 52766-9, 277-, PINR, 41326-4, 15644-9 ####[facility] ([id number])[address] [address] [place] [address] Lymphocytes/100 WBC (Bld) 11.6 % Normal [facility] Comment on above: Performed By: #### C BCA, BMP, 46172-4, 2777-1, PINR, 25770-9, 56858-2 ####[facility] ([id number])[address] [address] MCH (RBC) [Entitic mass] 28.6 pg Normal 27-34 [facility] Comment on above: Performed By: #### C BCA, BMP, 82427-2, 2777-1, PINR, 07340-3, 49323-7 ####[facility] ([id number])[address], [address] [address] MCHC (RBC) [Mass/Vol] 33.7 g/dL Normal 32-36 [facility] Comment on above: Performed By: #### C BCA, BMP, 40475-5, 2776-, PINR, 46961-2, 24828-5 ####[facility] ([id number])[address], [address], [place] [address] MCV (RBC) [Entitic vol] 85 fL Normal 80-100 [facility] Comment on above: Performed By: #### C BCA, BMP, 99325-8, 2776-, PINR, 66183-1, 04163-9 ####[facility] ([id number])[address], [address] [place] [address] Monocytes (Bld) [#/Vol] 1.3 10*3/uL High 0-0.9 [facility] Comment on above: Performed By: #### C BCA, BMP, 62001-8, 2777-1, PINR, 92471-1, 97871-6 ####[facility] ([id number])[address], [address], [place] [address] Monocytes/100 WBC (Bld) 10.9 % Normal [facility] Comment on above: Performed By: #### C BCA, BMP, 37720-2, 2777-1, PINR, 78844-2, 43653-6 ####[facility] ([id number])[address], [address] [place] [address] Neutrophils/100 WBC (Bld) 75.5 % Normal [facility] Comment on above: Performed By: #### C BCA, BMP, 58868-3, 2777-1, PINR, 04253-2, 78439-4 ####[facility] ([id number])[address], [address] [place] [address] Platelet mean volume (Bld) [Entitic vol] 9.3 fL Normal 7-12 [facility] Comment on above: Performed By: #### C BCA, BMP, 58387-9, 2777-1, PINR, 81017-0, 87006-2 ####[facility] ([id number])[address] [address] [place] [address] Platelets (Bld) [#/Vol] 32 10*3/uL Low 150-450 [facility] Comment on above: Performed By: #### C BCA, BMP, 54743-9, 2777-1, PINR, 19174-4, 13691-4 ####[facility] ([id number])[address] [address] [place] [address] RBC COUNT 2.64 X10E12/L Low 4.10-5.70 [facility] Comment on above: Performed By: #### C BCA, BMP, 64259-7, 2777-1, PINR, 94358-2, 59800-6 ####[facility] ([id number])[address] [address] [place] [address] WBC (Bld) [#/Vol] 11.5 10*3/uL High 4.0-11.0 [facility] Comment on above: Performed By: #### C BCA, BMP, 38545-3, 2777-1, PINR, 94214-7, 86233-7 ####[facility] ([id number])[address], [address] [place] [address] HBV core Ab IA Qlon 08-30-20 24 ANTI HBc Negative Normal NEG [facility] Comment on above: Performed By: #### C BCA, BMP, 45495-5, 2777-1, PINR, 89733-4, 96312-1 ####[facility] ([id number])[address], [address] [place] [address] HGB AND HCTon 08-30-2024 Hematocrit (Bld) [Volume fraction] 23.2 % Low 39-49 [facility] Comment on above: Performed By: #### H H, PLTCT ####[facility] ([id number])[address] [place] [address] Hemoglobin (Bld) [Mass/Vol] 7.8 g/dL Low 13.0-17.0 [facility] Comment on above: Performed By: #### H H, PLTCT ####[facility] ([id number])[address] [place] [address] Performed By: #### H H ####[facility] ([id number])[address], [address] [place] [address] Hematocrit (Bld) [Volume fraction] 22.7 % Low 39-49 [facility] Comment on above: Performed By: #### H H ####[facility] ([id number])[address] [address] [place] [address] IR EMBO-HEMORAGE/TRAUMA/HEMO PTYSISon 08-30-2024 IR EMBO-HEMORAGE/TRAUM A/HEMOPTYSIS Normal [facility] Lactate (P oc) [Moles/Vol]o n 08-30-2024 LACTATE W/REFLEX 1.3 mmol/L Normal 0.4-2.0 [facility] Comment on above: Result Comment: Resu lt did not trigger repeat Lactate,re-order if needed. Performed By: #### 3 2132-1 ####[facility] ([id number])[address] [place] [address] LACTATE W/REFLEX 1.0 mmol/L Normal 0.4-2.0 [facility] Comment on above: Result Comment: Resu lt did not trigger repeat Lactate,re-order if needed. Performed By: #### 3 2132-1 ####[facility] ([id number])[address] [place] [address] LACTATE W/REFLEX 0.8 mmol/L Normal 0.4-2.0 [facility] Comment on above: Result Comment: Resu lt did not trigger repeat Lactate,re-order if needed. Performed By: #### C BCA, BMP, , 2776-, PINR, 11550-9, 88251-8 ####[facility] ([id number])[address], [place] [address] MAGNESIUMon 08-30-2024 Magnesium [Mass/Vol] 1.8 mg/dL Normal 1.8-2.6 [facility] Comment on above: Performed By: #### C BCA, BMP, , 2776-, PINR, 59001-2, 98047-5 ####[facility] ([id number])[address] [place] [address] PHOSPHORUSon 08-30-2024 Phosphate [Mass/Vol] 4.7 mg/dL Normal 2.4-4.9 [facility] Comment on above: Performed By: #### C BCA, BMP, 71139-3, 2776-1, PINR, 82286-3, 55083-2 ####[facility] ([id number])[address], [place] [address] PLATELET COUNT AND MPVon Platelet mean volume (Bld) [Entitic vol] 10.0 fL Normal 7-12 [facility] Comment on above: Performed By: #### H H, PLTCT ####[facility] ([id number])[address], [place] [address] Platelets (Bld) [#/Vol] 40 10*3/uL Low 150-450 [facility] Comment on above: Performed By: #### H H, PLTCT ####[facility] ([id number])[address] [address] [place] [address] PROTIME AND INRon 08-30-2024 INR Coag (PPP) [Relative time] 1.6 {INR} High 0.8-1.1 [facility] Comment on above: Performed By: #### C BCA, BMP, 35996-8, 2776-, PINR, 70294-4, 81656-2 ####[facility] ([id number])[address] [address] [place] [address] PT Coag (PPP) [Time] 18.0 s High 9.8-13.2 [facility] Comment on above: Performed By: #### C BCA, BMP, 90450-1, 2776-, PINR, 73332-2, 80504-4 ####[facility] ([id number])[address] [address], [place] [address] BASIC METABOLIC PANLon 08-29 Anion gap [Moles/Vol] 13 mmol/L Normal 5-15 [facility] Comment on above: Performed By: #### C BCA, BMP, LIVR, 20227-6, 36686-6, 2777-1 ####[facility] ([id number])[address] [address], [place] [address] Calcium [Mass/Vol] 9.1 mg/dL Normal 8.5-10.5 [facility] Comment on above: Performed By: #### C BCA, BMP, LIVR, 89806-2, 69333-9, 277-1 ####[facility] ([id number])[address] [place] [address] Chloride [Moles/Vol] 101 mmol/L Normal 98-109 [facility] Comment on above: Performed By: #### C BCA, BMP, LIVR, 63322-0, 26354-9, 277-1 ####[facility] ([id number])[address], [address] [place] [address] CO2 [Moles/Vol] 24 mmol/L Normal 22-32 [facility] Comment on above: Performed By: #### C BCA, BMP, LIVR, 22559-0, 98318-4, 277-1 ####[facility] ([id number])[address] [place] [address] Creatinine [Mass/Vol] 2.83 mg/dL High 0.60-1.30 [facility] Comment on above: Result Comment: METH OD TRACEABLE TO IDMS STANDARD Performed By: #### C BCA, BMP, LIVR, 39854-7, 69609-8, 277-1 ####[facility] ([id number])[address] [address] GFR/1.73 sq M.predicted among non-blacks MDRD (S/P/Bld) [Vol rate/Area] 24 mL/min/{1.73_m2} Low >59 [facility] Comment on above: Result Comment: Repo rted eGFR is based on theCKD-EPI 2020 equation that doesnot use a race coefficient. Performed By: #### C BCA, BMP, LIVR, 23323-7, 80153-3, 2777-1 ####[facility] ([id number])[address], [place] [address] Glucose [Mass/Vol] 103 mg/dL High 65-99 [facility] Comment on above: Performed By: #### C BCA, BMP, LIVR, 39671-6, 91595-4, 27705-03 ####[facility] ([id number])[address], [place] [address] Potassium [Moles/Vol] 4.0 mmol/L Normal 3.5-5.0 [facility] Comment on above: Performed By: #### C BCA, BMP, LIVR, 62127-3, 80959-5, 2777- ####[facility] ([id number])[address], [place] [address] Sodium [Moles/Vol] 138 mmol/L Normal 134-146 [facility] Comment on above: Performed By: #### C BCA, BMP, LIVR, 75976-0, 83391-6, 27705-03 ####[facility] ([id number])[address], [place] [address] Urea nitrogen [Mass/Vol] 68 mg/dL High 5-27 [facility] Comment on above: Performed By: #### C BCA, BMP, LIVR, 11842-8, 22306-5, 277- ####[facility] ([id number])[address], [place] [address] Anion gap [Moles/Vol] 13 mmol/L Normal 5-15 [facility] Comment on above: Performed By: #### C BCA, PINR, BMP, 81229-2, 2776-1, 04938-5 ####[facility] ([id number])[address], [place] [address] Calcium [Mass/Vol] 9.1 mg/dL Normal 8.5-10.5 [facility] Comment on above: Performed By: #### C BCA, PINR, BMP, , 2776-11, 25240-1 ####[facility] ([id number])[address] [address] Chloride [Moles/Vol] 99 mmol/L Normal 98-109 [facility] Comment on above: Performed By: #### C BCA, PINR, BMP, , 2776-11, 90621-1 ####[facility] ([id number])[address] [address] CO2 [Moles/Vol] 27 mmol/L Normal 22-32 [facility] Comment on above: Performed By: #### C BCA, PINR, BMP, , 2776-11, 33859-1 ####[facility] ([id number])[address] [place] [address] Creatinine [Mass/Vol] 4.52 mg/dL High 0.60-1.30 [facility] Comment on above: Result Comment: METH OD TRACEABLE TO IDMS STANDARD Performed By: #### C BCA, PINR, BMP, , 2776-11, 10217-4 ####[facility] ([id number])[address] [address] [place] [address] GFR/1.73 sq M.predicted among non-blacks MDRD (S/P/Bld) [Vol rate/Area] 14 mL/min/{1.73_m2} Low >59 [facility] Comment on above: Result Comment: Repo rted eGFR is based on theCKD-EPI 2020 equation that doesnot use a race coefficient. Performed By: #### C BCA, PINR, BMP, , 2776-11, 31117-5 ####[facility] ([id number])[address], [address] [place] [address] Glucose [Mass/Vol] 99 mg/dL Normal 65-99 [facility] Comment on above: Performed By: #### C BCA, PINR, BMP, , 2776-11, 73504-7 ####[facility] ([id number])[address], [address], [place] [address] Potassium [Moles/Vol] 6.0 mmol/L High 3.5-5.0 [facility] Comment on above: Performed By: #### C BCA, PINR, BMP, , 2776-11, 81293-5 ####[facility] ([id number])[address] [address] Sodium [Moles/Vol] 139 mmol/L Normal 134-146 [facility] Comment on above: Performed By: #### C BCA, PINR, BMP, , 2776-11, 91581-5 ####[facility] ([id number])[address] [address] Urea nitrogen [Mass/Vol] 122 mg/dL High 5-27 [facility] Comment on above: Performed By: #### C BCA, PINR, BMP, , 2776-11, 21578-8 ####[facility] ([id number])[address], [address] [place] [address] BLOOD CULTUREon 08-29-2024 Bacteria identified Aer cx Nom (Bld) SPECIMEN NOTES SUBOPTIMAL VOLUME OF BLOOD COLLECTED, RESULTS MAY BE AFFECTED. CULTURE RESULTS NO GROWTH 5 DAYS Normal [facility] Comment on above: Performed By: #### 1 7928-3 ####[facility] ([id number])[address], [address], [place] [address] Bacteria identified Aer cx Nom (Bld) SPECIMEN NOTES SUBOPTIMAL VOLUME OF BLOOD COLLECTED, RESULTS MAY BE AFFECTED. CULTURE RESULTS NO GROWTH 5 DAYS Normal [facility] Comment on above: Performed By: #### 1 7928-3 ####[facility] ([id number])[address], [address] [place] [address] CBC AND AUTO DIFFon 08-29-20 24 Band form neutrophils/100 WBC (Bld) 2.0 % Normal [facility] Comment on above: Performed By: #### C BCA, BMP, LIVR, 21123-8, 20351-2, 2777- ####[facility] ([id number])[address], [address] [place] [address] Eosinophils (Bld) [#/Vol] 0.2 10*3/uL Normal 0.0-0.4 [facility] Comment on above: Performed By: #### C BCA, BMP, LIVR, 76342-7, 08598-5, 2777 ####[facility] ([id number])[address] [address] [place] [address] Eosinophils/100 WBC (Bld) 1.0 % Normal [facility] Comment on above: Performed By: #### C BCA, BMP, LIVR, 54572-1, 83260-7, 27705-03 ####[facility] ([id number])[address] [address] Erythrocyte distribution width (RBC) [Ratio] 18.5 % High 11.5-15.0 [facility] Comment on above: Performed By: #### C BCA, BMP, LIVR, 73905-1, 09975-6, 27705-03 ####[facility] ([id number])[address] [address] [place] [address] Hematocrit (Bld) [Volume fraction] 21.0 % Low 39-49 [facility] Comment on above: Performed By: #### C BCA, BMP, LIVR, 26921-9, 76273-5, 2777- ####[facility] ([id number])[address], [place] [address] Hemoglobin (Bld) [Mass/Vol] 6.9 g/dL Critically low 13.0-17.0 [facility] Comment on above: Performed By: #### C BCA, BMP, LIVR, 52521-2, 50505-7, 2777 ####[facility] ([id number])[address] [address] Lymphocytes (Bld) [#/Vol] 0.4 10*3/uL Low 1.0-3.5 [facility] Comment on above: Performed By: #### C BCA, BMP, LIVR, 45741-4, 30754-6, 27705-03 ####[facility] ([id number])[address] [address] [place] [address] Lymphocytes/100 WBC (Bld) 2.0 % Normal [facility] Comment on above: Performed By: #### C BCA, BMP, LIVR, 38291-2, 49731-1, 27705-03 ####[facility] ([id number])[address] [address] [place] [address] MCH (RBC) [Entitic mass] 28.2 pg Normal 27-34 [facility] Comment on above: Performed By: #### C BCA, BMP, LIVR, 53135-2, 18542-4, 27705-03 ####[facility] ([id number])[address], [place] [address] MCHC (RBC) [Mass/Vol] 33.0 g/dL Normal 32-36 [facility] Comment on above: Performed By: #### C BCA, BMP, LIVR, 36161-7, 26097-9, 27705-03 ####[facility] ([id number])[address], [address], [place] [address] MCV (RBC) [Entitic vol] 85 fL Normal 80-100 [facility] Comment on above: Performed By: #### C BCA, BMP, LIVR, 45879-9, 41441-5, 2777-1 ####[facility] ([id number])[address], [address] [place] [address] Monocytes (Bld) [#/Vol] 2.6 10*3/uL High 0-0.9 [facility] Comment on above: Performed By: #### C BCA, BMP, LIVR, 02855-4, 10841-0, 2777- ####[facility] ([id number])[address], [address] [address] Monocytes/100 WBC (Bld) 12.0 % Normal [facility] Comment on above: Performed By: #### C BCA, BMP, LIVR, 76176-2, 44320-3, 277- ####[facility] ([id number])[address], [address], [place] [address] Neutrophils (Bld) [#/Vol] 18.2 10*3/uL High 1.5-6.6 [facility] Comment on above: Performed By: #### C BCA, BMP, LIVR, 41143-3, 33175-0, 2777-1 ####[facility] ([id number])[address] [place] [address] Platelet mean volume (Bld) [Entitic vol] 8.8 fL Normal 7-12 [facility] Comment on above: Performed By: #### C BCA, BMP, LIVR, 63182-7, 36354-2, 2777- ####[facility] ([id number])[address] [place] [address] Platelets (Bld) [#/Vol] 30 10*3/uL Low 150-450 [facility] Comment on above: Performed By: #### C BCA, BMP, LIVR, 68983-5, 98344-6, 27705-03 ####[facility] ([id number])[address], [address] [place] [address] RBC COUNT 2.46 X10E12/L Low 4.10-5.70 [facility] Comment on above: Performed By: #### C BCA, BMP, LIVR, 17270-4, 29952-1, 277- ####[facility] ([id number])[address], [address] [place] [address] SEG NEUTROPHIL 83.0 % Normal [facility] Comment on above: Performed By: #### C BCA, BMP, LIVR, 40309-6, 22439-3, 27705-03 ####[facility] ([id number])[address], [address] [place] [address] STOMATOCYTE 1+ Abnormal NONE [facility] Comment on above: Performed By: #### C BCA, BMP, LIVR, 05776-6, 17537-2, 27705-03 ####[facility] ([id number])[address], [address] [place] [address] WBC (Bld) [#/Vol] 21.4 10*3/uL High 4.0-11.0 [facility] Comment on above: Performed By: #### C BCA, BMP, LIVR, 14495-4, 38425-0, 27705-03 ####[facility] ([id number])[address], [address] [place] [address] ABSOLUTE BASOPHIL 0.1 X10E9/L Normal 0.0-0.2 [facility] Comment on above: Performed By: #### C BCA, PINR, BMP, 64525-3, 7-1, 00688-0 ####[facility] ([id number])[address], [address] [place] [address] ABSOLUTE NEUTROPHIL 13.7 X10E9/L High 1.5-6.6 [facility] Comment on above: Performed By: #### C BCA, PINR, BMP, , 2776-11, 02163-5 ####[facility] ([id number])[address], [address] [place] [address]141 Basophils/100 WBC (Bld) 0.4 % Normal [facility] Comment on above: Performed By: #### C BCA, PINR, BMP, , 2776-11, 41824-2 ####[facility] ([id number])[address] [address] [place] [address] Eosinophils (Bld) [#/Vol] 0.1 10*3/uL Normal 0.0-0.4 [facility] Comment on above: Performed By: #### C BCA, PINR, BMP, , 2776-11, 43331-4 ####[facility] ([id number])[address] [address] [place] [address]644 Eosinophils/100 WBC (Bld) 0.7 % Normal [facility] Comment on above: Performed By: #### C BCA, PINR, BMP, , 2776-11, 01982-3 ####[facility] ([id number])[address] [address] [place] [address] Erythrocyte distribution width (RBC) [Ratio] 16.5 % High 11.5-15.0 [facility] Comment on above: Performed By: #### C BCA, PINR, BMP, , 2776-11, 98462-5 ####[facility] ([id number])[address] [address] [place] [address] Hematocrit (Bld) [Volume fraction] 19.1 % Low 39-49 [facility] Comment on above: Performed By: #### C BCA, PINR, BMP, 05555-6, 2776-11, 92808-3 ####[facility] ([id number])[address], [address] [place] [address] Hemoglobin (Bld) [Mass/Vol] 6.1 g/dL Critically low 13.0-17.0 [facility] Comment on above: Performed By: #### C BCA, PINR, BMP, 14618-3, 2776-, 35648-8 ####[facility] ([id number])[address], [address] [place] [address]605 Lymphocytes (Bld) [#/Vol] 1.9 10*3/uL Normal 1.0-3.5 [facility] Comment on above: Performed By: #### C BCA, PINR, BMP, , 2776-11, 53058-4 ####[facility] ([id number])[address], [address] [place] [address]006 Lymphocytes/100 WBC (Bld) 11.1 % Normal [facility] Comment on above: Performed By: #### C BCA, PINR, BMP, , 2776-11, 70221-1 ####[facility] ([id number])[address], [address] [place] [address]63 MCH (RBC) [Entitic mass] 27.8 pg Normal 27-34 [facility] Comment on above: Performed By: #### C BCA, PINR, BMP, 18845-0, 2776-, 77938-6 ####[facility] ([id number])[address], [address] [place] [address]1999 MCHC (RBC) [Mass/Vol] 32.1 g/dL Normal 32-36 [facility] Comment on above: Performed By: #### C BCA, PINR, BMP, 42736-2, 2776-11, ####[facility] ([id number])[address], [address] [address] MCV (RBC) [Entitic vol] 86 fL Normal 80-100 [facility] Comment on above: Performed By: #### C BCA, PINR, BMP, , 2776-11, 19889-6 ####[facility] ([id number])[address], [address] [place] [address]68 Monocytes (Bld) [#/Vol] 1.6 10*3/uL High 0-0.9 [facility] Comment on above: Performed By: #### C BCA, PINR, BMP, , 2776-11, ####[facility] ([id number])[address], [address] [place] [address] 19400 Monocytes/100 WBC (Bld) 9.2 % Normal [facility] Comment on above: Performed By: #### C BCA, PINR, BMP, , 2776-11, 21144-6 ####[facility] ([id number])[address], [address] [place] [address]63 Neutrophils/100 WBC (Bld) 78.6 % Normal [facility] Comment on above: Performed By: #### C BCA, PINR, BMP, , 2776-11, 59579-2 ####[facility] ([id number])[address], [address], [place] [address] OVALOCYTE 1+ Abnormal NONE [facility] Comment on above: Performed By: #### C BCA, PINR, BMP, , 2776-11, 83716-8 ####[facility] ([id number])[address], [address] [address] Platelet mean volume (Bld) [Entitic vol] 10.0 fL Normal 7-12 [facility] Comment on above: Performed By: #### C BCA, PINR, BMP, , 2776-, 26795-1 ####[facility] ([id number])[address], [address] [place] [address]32 Platelets (Bld) [#/Vol] 77 10*3/uL Low 150-450 [facility] Comment on above: Performed By: #### C BCA, PINR, BMP, , 2776-11, 22695-2 ####[facility] ([id number])[address], [address] [place] [address]8938 RBC COUNT 2.21 X10E12/L Low 4.10-5.70 [facility] Comment on above: Performed By: #### C BCA, PINR, BMP, , 2776-11, 25937-6 ####[facility] ([id number])[address], [address] [place] [address] 21866 WBC (Bld) [#/Vol] 17.5 10*3/uL High 4.0-11.0 [facility] Comment on above: Performed By: #### C BCA, PINR, BMP, , 2776-11, 89961-7 ####[facility] ([id number])[address], [address] [place] [address] 49973 Glucose Glucometer (BldC) [M ass/Vol]on 08-29-2024 Glucose [Mass/Vol] 145 mg/dL High 65-99 [facility] Glucose [Mass/Vol] 91 mg/dL Normal 65-99 [facility] Glucose [Mass/Vol] 174 mg/dL High 65-99 [facility] Glucose [Mass/Vol] 107 mg/dL High 65-99 [facility] HBV surface Ab IA Qnon 08-29 Anti HBs quant. <8.00 Normal [facility] Comment on above: Result Comment: Vacc inated: >=12mIU/mL, Positive (Immune)Unvaccinated: <8mIU/mL, Negative (Not Immune)8-11.99 mIU/mL: Indeterminate,(Considered Not Immune) Performed By: #### 5 193-8, 5196-1, 00851-2 ####[facility] ([id number])[address] [address] HBV surface Ag IA Qlon 08-29 HEPATITIS B SURF AG Negative Normal NEG [facility] Comment on above: Performed By: #### 5 193-8, 5196-1, 25424-2 ####[facility] ([id number])[address] [place] [address] 71477 HCV Ab IA Qlon 08-29-2024 ANTI HCV W/PCR REFLX Non-Reactive Normal NRCT [facility] Comment on above: Result Comment: If r ecent infection suspected, recommendrepeat testing (>2 months).Gsyjsc-ux-ssugbz ratio is <0.80. Performed By: #### 5 193-8, 5196-1, 99144-1 ####[facility] ([id number])[address] [place] [address]176 HGB AND HCTon 08-29-2024 Hematocrit (Bld) [Volume fraction] 19.6 % Low 39-49 [facility] Comment on above: Performed By: #### H H ####[facility] ([id number])[address], [address] [place] [address] 69015 Hemoglobin (Bld) [Mass/Vol] 6.5 g/dL Critically low 13.0-17.0 [facility] Comment on above: Performed By: #### H H ####[facility] ([id number])[address], [address] [place] [address] 39053 Hematocrit (Bld) [Volume fraction] 21.1 % Low 39-49 [facility] Comment on above: Performed By: #### H H ####[facility] ([id number])[address] [place] [address] Hemoglobin (Bld) [Mass/Vol] 6.9 g/dL Critically low 13.0-17.0 [facility] Comment on above: Performed By: #### H H ####[facility] ([id number])[address] [place] [address] Hematocrit (Bld) [Volume fraction] 18.8 % Low 39-49 [facility] Comment on above: Performed By: #### H H ####[facility] ([id number])[address], [place] [address] Hemoglobin (Bld) [Mass/Vol] 6.1 g/dL Critically low 13.0-17.0 [facility] Comment on above: Performed By: #### H H ####[facility] ([id number])[address] [address], [place] [address] LIVER PANELon 08-29-2024 Albumin [Mass/Vol] 4.1 g/dL Normal 3.2-5.3 [facility] Comment on above: Performed By: #### C BCA, BMP, LIVR, 56632-3, 07034-0, 2777-1 ####[facility] ([id number])[address] [address], [place] [address] ALP [Catalytic activity/Vol] 41 U/L Normal 39-130 [facility] Comment on above: Performed By: #### C BCA, BMP, LIVR, 98621-9, 10917-8, 2777-1 ####[facility] ([id number])[address], [place] [address] ALT [Catalytic activity/Vol] U/L Normal 0-40 [facility] Comment on above: Performed By: #### C BCA, BMP, LIVR, 53734-8, 44179-0, 2777-1 ####[facility] ([id number])[address] [address] AST [Catalytic activity/Vol] 11 U/L Normal 0-41 [facility] Comment on above: Performed By: #### C BCA, BMP, LIVR, 93044-0, 02236-6, 2777-1 ####[facility] ([id number])[address] [address] Bilirubin [Mass/Vol] 2.3 mg/dL High 0.3-1.2 [facility] Comment on above: Performed By: #### C BCA, BMP, LIVR, 63758-7, 07086-8, 2777-1 ####[facility] ([id number])[address] [address] [place] [address]96 Bilirubin.direct [Mass/Vol] 0.6 mg/dL High 0.0-0.4 [facility] Comment on above: Performed By: #### C BCA, BMP, LIVR, 69580-7, 01013-3, 2777-1 ####[facility] ([id number])[address] [address] [place] [address]1810 Protein [Mass/Vol] 6.0 g/dL Normal 6.0-8.0 [facility] Comment on above: Performed By: #### C BCA, BMP, LIVR, 88703-5, 82515-7, 2777-1 ####[facility] ([id number])[address] [address] [place] [address] 34070 Lactate (P oc) [Moles/Vol]o n 08-29-2024 LACTATE W/REFLEX 1.5 mmol/L Normal 0.4-2.0 [facility] Comment on above: Result Comment: Resu lt did not trigger repeat Lactate,re-order if needed. Performed By: #### 3 2132-1 ####[facility] ([id number])[address], [place] [address] LACTATE W/REFLEX 1.0 mmol/L Normal 0.4-2.0 [facility] Comment on above: Result Comment: Resu lt did not trigger repeat Lactate,re-order if needed. Performed By: #### 3 2132-1 ####[facility] ([id number])[address] [address] Lactate [Moles/Vol] 1.9 mmol/L Normal 0.4-2.0 [facility] Comment on above: Performed By: #### 3 2132-1 ####[facility] ([id number])[address] [address] LACTATE W/REFLEX 2.2 mmol/L High 0.4-2.0 [facility] Comment on above: Performed By: #### C BCA, PINR, BMP, 88672-6, 277-1, 41619-0 ####[facility] ([id number])[address] [place] [address] 20004 MAGNESIUMon 08-29-2024 Magnesium [Mass/Vol] 1.7 mg/dL Low 1.8-2.6 [facility] Comment on above: Performed By: #### C BCA, BMP, LIVR, 62339-6, 79364-9, 277-1 ####[facility] ([id number])[address], [place] [address] Magnesium [Mass/Vol] 2.0 mg/dL Normal 1.8-2.6 [facility] Comment on above: Performed By: #### C BCA, PINR, BMP, 11881-3, 277-, 91922-2 ####[facility] ([id number])[address], [place] [address] PHOSPHORUSon 08-29-2024 Phosphate [Mass/Vol] 3.2 mg/dL Normal 2.4-4.9 [facility] Comment on above: Performed By: #### C BCA, BMP, LIVR, , 53708-3, 2776-1 ####[facility] ([id number])[address], [place] [address] Phosphate [Mass/Vol] 5.4 mg/dL High 2.4-4.9 [facility] Comment on above: Performed By: #### C BCA, PINR, BMP, , 2776-11, 79288-6 ####[facility] ([id number])[address], [place] [address] POTASSIUMon 08-29-2024 Potassium [Moles/Vol] 5.3 mmol/L High 3.5-5.0 [facility] Comment on above: Performed By: #### 2 823-3 ####[facility] ([id number])[address] [place] [address] PROTIME AND INRon 08-29-2024 INR Coag (PPP) [Relative time] 1.9 {INR} High 0.8-1.1 [facility] Comment on above: Performed By: #### C BCA, PINR, BMP, , 2776-11, 67407-4 ####[facility] ([id number])[address] [place] [place] [address] PT Coag (PPP) [Time] 21.7 s High 9.8-13.2 [facility] Comment on above: Performed By: #### C BCA, PINR, BMP, , 2776-11, 60197-9 ####[facility] ([id number])[address], [place] [address] Procalcitonin IA [Mass/Vol]o n 08-29-2024 PROCALCITONIN 4.41 ng/mL High <0.05 [facility] Comment on above: Result Comment: NOTE <0.50 ng/mL - Low risk of severe sepsis and/or septic shock.<2.00 ng/mL - Recommend retesting within 6-24 hours.>2.00 ng/mL - High risk of sepsis and/or septic shock. Performed By: #### C BCA, BMP, LIVR, 30723-4, 15827-1, 2777-1 ####[facility] ([id number])[address], [place] [address] URINALYSISon 08-29-2024 Bilirubin Ql (U) Negative Normal NEG [facility] Comment on above: Performed By: #### U A ####[facility] ([id number])[address], [place] [address] BLOOD/HGB Large Abnormal NEG [facility] Comment on above: Performed By: #### U A ####[facility] ([id number])[address], [place] [address] Color (U) YELLOW Normal YELLOW [facility] Comment on above: Performed By: #### U A ####[facility] ([id number])[address], [place] [address] Glucose Ql (U) Negative Normal NEG [facility] Comment on above: Performed By: #### U A ####[facility] ([id number])[address] [place] [address] Ketones Ql (U) Negative Normal NEG [facility] Comment on above: Performed By: #### U A ####[facility] ([id number])[address] [place] [place] [address] Leukocyte esterase Test strip Ql (U) Large Abnormal NEG [facility] Comment on above: Performed By: #### U A ####[facility] ([id number])[address] [place] [address] MUCOUS PRESENT Abnormal NONE [facility] Comment on above: Performed By: #### U A ####[facility] ([id number])[address] [address] [place] [place] [address] Nitrite Ql (U) Negative Normal NEG [facility] Comment on above: Performed By: #### U A ####[facility] ([id number])[address] [place] [place] [address] pH (U) 7.0 [pH] Normal 5.0-8.5 [facility] Comment on above: Performed By: #### U A ####[facility] ([id number])[address] [address] [address] Protein Ql (U) >=300 Abnormal NEG [facility] Comment on above: Performed By: #### U A ####[facility] ([id number])[address] [address], [place] [address] R.B.CELLS 180 /hpf High 0-5 [facility] Comment on above: Performed By: #### U A ####[facility] ([id number])[address] [address] [place] [address] Specific gravity (U) [Rel density] 1.010 Normal 1.003-1.035 [facility] Comment on above: Performed By: #### U A ####[facility] ([id number])[address] [address] [place] [place] [address] SQUAMOUS EPITHELIUM >27 High 0-5 [facility] Comment on above: Performed By: #### U A ####[facility] ([id number])[address] [address] [place] [address] TRANSITIONAL EPITH 3 /hpf High 0 [facility] Comment on above: Performed By: #### U A ####[facility] ([id number])[address] [place] [address] 13491 TURBIDITY CLOUDY Abnormal CLEAR [facility] Comment on above: Performed By: #### U A ####[facility] ([id number])[address] [place] [address] Urobilinogen Qn (U) 0.2 {Orbbie'U}/dL Normal <1.1 [facility] Comment on above: Performed By: #### U A ####[facility] ([id number])[address] [place] [address]74 W.B.CELLS >720 High 0-5 [facility] Comment on above: Performed By: #### U A ####[facility] ([id number])[address] [place] [address] WBC CLUMPS MANY Abnormal NONE [facility] Comment on above: Performed By: #### U A ####[facility] ([id number])[address] [address] [place] [address] URINE CULTUREon 08-29-2024 Bacteria identified Cx Nom (U) SPECIMEN NOTES URINE RECEIVED WITHOUT PRESERVATIVE CULTURE RESULTS 50-100,000 ORGANISMS/ML NORMAL UROGENITAL MAGALYS Normal [facility] Comment on above: Performed By: #### 6 30-4 ####[facility] ([id number])[address] [address] [place] [id number] XR CHEST 1 VWon 08-29-2024 XR CHEST 1 VW Normal [facility] BASIC METABOLIC PANLon 08-28 Anion gap [Moles/Vol] 16 mmol/L High 5-15 [facility] Comment on above: Performed By: #### [place], [address]-5, 2776-11 ####[facility] ([id number])[address] [address], [place] [address] Calcium [Mass/Vol] 9.0 mg/dL Normal 8.5-10.5 [facility] Comment on above: Performed By: #### Suhas CONTRERAS, , 2776-11 ####[facility] ([id number])[address], [place] [address] Chloride [Moles/Vol] 101 mmol/L Normal 98-109 [facility] Comment on above: Performed By: #### Suhas CONTRERAS, , 2776-11 ####[facility] ([id number])[address] [address] [address] CO2 [Moles/Vol] 28 mmol/L Normal 22-32 [facility] Comment on above: Performed By: #### Suhas CONTRERAS, , 2776-11 ####[facility] ([id number])[address] [address] [address] Creatinine [Mass/Vol] 4.28 mg/dL High 0.60-1.30 [facility] Comment on above: Result Comment: METH OD TRACEABLE TO IDMS STANDARD Performed By: #### Suhas CONTRERAS, , 2776-11 ####[facility] ([id number])[address] [address] GFR/1.73 sq M.predicted among non-blacks MDRD (S/P/Bld) [Vol rate/Area] 15 mL/min/{1.73_m2} Low >59 [facility] Comment on above: Result Comment: Repo rted eGFR is based on theCKD-EPI 2020 equation that doesnot use a race coefficient. Performed By: #### Shuas CONTRERAS, , 2776-11 ####[facility] ([id number])[address] [place] [address] Glucose [Mass/Vol] 119 mg/dL High 65-99 [facility] Comment on above: Performed By: #### B DIANE, , 2776-11 ####[facility] ([id number])[address] [place] [address] Potassium [Moles/Vol] 5.3 mmol/L High 3.5-5.0 [facility] Comment on above: Performed By: #### Suhas CONTRERAS, , 2776-11 ####[facility] ([id number])[address] [place] [address] Sodium [Moles/Vol] 145 mmol/L Normal 134-146 [facility] Comment on above: Performed By: #### Suhas CONTRERAS, , 2776-11 ####[facility] ([id number])[address], [place] [address] Urea nitrogen [Mass/Vol] 109 mg/dL High 5-27 [facility] Comment on above: Performed By: #### Suhas CONTRERAS, , 2776-11 ####[facility] ([id number])[address], [place] [address] CBC AND AUTO DIFFon 10-26-20 24 ABSOLUTE BASOPHIL 0.1 X10E9/L Normal 0.0-0.2 [facility] Comment on above: Performed By: #### C BCA ####[facility] ([id number])[address] [place] [address] ABSOLUTE NEUTROPHIL 8.4 X10E9/L High 1.5-6.6 [facility] Comment on above: Performed By: #### C BCA ####[facility] ([id number])[address] [place] [address] Basophils/100 WBC (Bld) 0.5 % Normal [facility] Comment on above: Performed By: #### C BCA ####[facility] ([id number])[address] [address] [place] [address] Eosinophils (Bld) [#/Vol] 0.2 10*3/uL Normal 0.0-0.4 [facility] Comment on above: Performed By: #### C BCA ####[facility] ([id number])[address] [address] [place] [address] Eosinophils/100 WBC (Bld) 2.0 % Normal [facility] Comment on above: Performed By: #### C BCA ####[facility] ([id number])[address] [address] Erythrocyte distribution width (RBC) [Ratio] 17.4 % High 11.5-15.0 [facility] Comment on above: Performed By: #### C BCA ####[facility] ([id number])0 [address] [address] [place] [address] Hematocrit (Bld) [Volume fraction] 17.6 % Low 39-49 [facility] Comment on above: Performed By: #### C BCA ####[facility] ([id number])0 [address] [address] [address] Hemoglobin (Bld) [Mass/Vol] 5.7 g/dL Critically low 13.0-17.0 [facility] Comment on above: Performed By: #### C BCA ####[facility] ([id number])[address] [address] [place] [address] HYPOCHROMIA 1+ Abnormal NONE [facility] Comment on above: Performed By: #### C BCA ####[facility] ([id number])[address] [address] [place] [address] Lymphocytes (Bld) [#/Vol] 1.5 10*3/uL Normal 1.0-3.5 [facility] Comment on above: Performed By: #### C BCA ####[facility] ([id number])[address], [place] [address] Lymphocytes/100 WBC (Bld) 12.4 % Normal [facility] Comment on above: Performed By: #### C BCA ####[facility] ([id number])[address], [address], [place] [address] MCH (RBC) [Entitic mass] 28.0 pg Normal 27-34 [facility] Comment on above: Performed By: #### C BCA ####[facility] ([id number])[address], [place] [address] MCHC (RBC) [Mass/Vol] 32.5 g/dL Normal 32-36 [facility] Comment on above: Performed By: #### C BCA ####[facility] ([id number])0 [address] [address], [place] [address] MCV (RBC) [Entitic vol] 86 fL Normal 80-100 [facility] Comment on above: Performed By: #### C BCA ####[facility] ([id number])0 [address] [address], [place] [address] Monocytes (Bld) [#/Vol] 1.6 10*3/uL High 0-0.9 [facility] Comment on above: Performed By: #### C BCA ####[facility] ([id number])[address], [place] [address] Monocytes/100 WBC (Bld) 13.6 % Normal [facility] Comment on above: Performed By: #### C BCA ####[facility] ([id number])[address] [place] [address] Neutrophils/100 WBC (Bld) 71.5 % Normal [facility] Comment on above: Performed By: #### C BCA ####[facility] ([id number])[address], [address] [place] [place] [address] OVALOCYTE 1+ Abnormal NONE [facility] Comment on above: Performed By: #### C BCA ####[facility] ([id number])[address], [place] [address] Platelet mean volume (Bld) [Entitic vol] 7.7 fL Normal 7-12 [facility] Comment on above: Performed By: #### C BCA ####[facility] ([id number])[address] [address], [place] [address] Platelets (Bld) [#/Vol] 48 10*3/uL Low 150-450 [facility] Comment on above: Performed By: #### C BCA ####[facility] ([id number])[address] [place] [address] RBC COUNT 2.05 X10E12/L Low 4.10-5.70 [facility] Comment on above: Performed By: #### C BCA ####[facility] ([id number])[address] [address], [place] [address] WBC (Bld) [#/Vol] 11.7 10*3/uL High 4.0-11.0 [facility] Comment on above: Performed By: #### C BCA ####[facility] ([id number])0 [address] [address] [place] [place] [address] COMPLETE BLOOD COUNTon 08-28 Erythrocyte distribution width (RBC) [Ratio] 17.5 % High 11.5-15.0 [facility] Comment on above: Performed By: #### C BC ####[facility] ([id number])[address] [place] [address] Hematocrit (Bld) [Volume fraction] 21.4 % Low 39-49 [facility] Comment on above: Performed By: #### C BC ####[facility] ([id number])[address], [address] [place] [address] Hemoglobin (Bld) [Mass/Vol] 6.9 g/dL Critically low 13.0-17.0 [facility] Comment on above: Performed By: #### C BC ####[facility] ([id number])[address], [address], [place] [address] MCH (RBC) [Entitic mass] 28.0 pg Normal 27-34 [facility] Comment on above: Performed By: #### C BC ####[facility] ([id number])[address] [address], [place] [address] MCHC (RBC) [Mass/Vol] 32.2 g/dL Normal 32-36 [facility] Comment on above: Performed By: #### C BC ####[facility] ([id number])[address] [address] [place] [address] MCV (RBC) [Entitic vol] 87 fL Normal 80-100 [facility] Comment on above: Performed By: #### C BC ####[facility] ([id number])[address] [address] [place] [address] Platelet mean volume (Bld) [Entitic vol] 8.2 fL Normal 7-12 [facility] Comment on above: Performed By: #### C BC ####[facility] ([id number])[address] [address] [place] [address] Platelets (Bld) [#/Vol] 55 10*3/uL Low 150-450 [facility] Comment on above: Performed By: #### C BC ####[facility] ([id number])[address] [place] [address] [address] [address] RBC COUNT 2.46 X10E12/L Low 4.10-5.70 [facility] Comment on above: Performed By: #### C BC ####[facility] ([id number])[address] [place] [address] WBC (Bld) [#/Vol] 16.1 10*3/uL High 4.0-11.0 [facility] Comment on above: Performed By: #### C BC ####[facility] ([id number])[address] [place] [address] ABDOMEN AND PELVIS WO CON Ton 08-28-2024 CT ABDOMEN AND PELVIS WO CONT Normal [facility] Clinical Pathology Blood Sme ar Reviewon 08-28-2024 Clinical Pathology Blood Smear Review Normal [facility] Comment on above: Result Comment: [facility] [address] [place] [address] Clinical Pathology ReportPatient Name:JESSICA PRICE:1960 (Age: 63)Gender:MTaken:4Reported:08/30/2024hysician(s):CAT BETH DO ([phone])Copy To: Rec. #:[id number]: #[id number] Pathologic DiagnosisPERIPHERAL BLOOD:- Normochromic, normocytic anemia-Neutrophilia, favor [...] Electronically Signed Out4Rmarah Norman MDInterpretation performed at [facility], [address] [place] [address], License number: [id number].Clinical IxuorueW12.624, L98.422, N39.0, I47.20. BLOOD SMEAR EVALUATIONCB (08/28/2024 0455): WBC = 11.7 X10E9/L; HGB = 5.7 g/dL; HCT = 17.6%; MCV = 86 fL; PLT = 48 X10E9/LSpecimen(s) Received Blood Smear ReviewFee Codes(s):1; 00929 FERRITINon 08-28-2024 Ferritin [Mass/Vol] 645 ng/mL High 24-336 [facility] Comment on above: Performed By: #### 4 679-7, 2532-0, 6-4, 2283-8, 9 ####[facility] ([id number])[facility] [address] Fibrinogen Coagulation.deriv ed (PPP) [Mass/Vol]on 08-28-2024 FIBRINOGEN 344 mg/dL Normal 190-480 [facility] Comment on above: Performed By: #### 2 532-0, 27099-8, 88306-5, PINR ####[facility] ([id number])[facility] [address] [address] Folate [Mass/Vol]on 08-28-20 24 FOLIC ACID 5.4 ng/mL Low >5.8 [facility] Comment on above: Result Comment: [facility] Performed By: #### 4 679-7, 2532-0, 2276-4, 2283-8, 2132-07 ####[facility] ([id number])[address] [address] HGB AND HCTon 08-28-2024 Hematocrit (Bld) [Volume fraction] 22.6 % Low 39-49 [facility] Comment on above: Performed By: #### H H ####[facility] ([id number])[address], [address] [place] [address] Hemoglobin (Bld) [Mass/Vol] 7.3 g/dL Low 13.0-17.0 [facility] Comment on above: Performed By: #### H H ####[facility] ([id number])[address], [address] [place] [address] Haptoglobin Nephelometry [Ma ss/Vol]on 08-28-2024 HAPTOGLOBIN 125 mg/dL Normal 32-228 [facility] Comment on above: Performed By: #### 2 532-0, 52484-4, 67892-1, PINR ####[facility] ([id number])0 [address] [address] [place] [address] HAPTOGLOBIN 160 mg/dL Normal 32-228 [facility] Comment on above: Performed By: #### 4 6127-7, PINR ####[facility] ([id number])[address], [address] [place] [address] LDH [Catalytic activity/Vol] on 08-28-2024 LDH 148 U/L Normal 100-235 [facility] Comment on above: Performed By: #### 2 532-0, 54038-4, 60291-2, PINR ####[facility] ([id number])[address] [address] [place] [place] [address] LDH 139 U/L Normal 100-235 [facility] Comment on above: Performed By: #### 4 679-7, 2532-0, 2276-4, 4-8, 2131-9 ####[facility] ([id number])[address] [place] [address] Lactate (P oc) [Moles/Vol]o n 08-28-2024 Lactate [Moles/Vol] 2.5 mmol/L High 0.4-2.0 [facility] Comment on above: Performed By: #### 3 2132-1 ####[facility] ([id number])[address], [place] [address] LACTATE W/REFLEX 3.2 mmol/L High 0.4-2.0 [facility] Comment on above: Performed By: #### 3 2132-1 ####[facility] ([id number])[address], [address], [place] [address] LACTATE W/REFLEX 4.1 mmol/L Critically high 0.4-2.0 [facility] Comment on above: Performed By: #### 3 2132-1 ####[facility] ([id number])[address], [address], [place] [address] LACTATE W/REFLEX 2.0 mmol/L Normal 0.4-2.0 [facility] Comment on above: Result Comment: Resu lt did not trigger repeat Lactate,re-order if needed. Performed By: #### 3 2132-1 ####[facility] ([id number])[address], [address], [place] [address] Lactate [Moles/Vol] 2.2 mmol/L High 0.4-2.0 [facility] Comment on above: Performed By: #### 3 2132-1 ####[facility] ([id number])[address], [address], [place] [address] MAGNESIUMon 08-28-2024 Magnesium [Mass/Vol] 2.2 mg/dL Normal 1.8-2.6 [facility] Comment on above: Performed By: #### B [place], 93274-0, 2777-1 ####[facility] ([id number])[address], [address], [place] [address] PHOSPHORUSon 08-28-2024 Phosphate [Mass/Vol] 4.5 mg/dL Normal 2.4-4.9 [facility] Comment on above: Performed By: #### [place], [address]-4, 2777-1 ####[facility] ([id number])[address], [address] [place] [address] PROTIME AND INRon 08-28-2024 INR Coag (PPP) [Relative time] 3.6 {INR} High 0.8-1.1 [facility] Comment on above: Performed By: #### 2 532-0, 98110-3, 74879-4, PINR ####[facility] ([id number])[address], [address] [place] [address] PT Coag (PPP) [Time] 39.9 s High 9.8-13.2 [facility] Comment on above: Performed By: #### 2 532-0, 77093-9, 68855-4, PINR ####[facility] ([id number])[address] [address] INR Coag (PPP) [Relative time] 3.3 {INR} High 0.8-1.1 [facility] Comment on above: Performed By: #### 4 6127-7, PINR ####[facility] ([id number])[address], [address] [place] [address] PT Coag (PPP) [Time] 36.8 s High 9.8-13.2 [facility] Comment on above: Performed By: #### 4 6127-7, PINR ####[facility] ([id number])[address], [address] [place] [address] [address] [address] comment (Bld) [Interp]on 08-28-2024 STAFF REVIEW NOTE Normal [facility] Comment on above: Result Comment: [facility] [address] [address] Clinical Pathology ReportPatient Name:JESSICA PRICE:1960 (Age:63)Gender:MTaken:08/28/2024eported:08/30/2024hysician(s):RICK CHAKRABORTY DO ([phone])Copy To: Rec.#:[id number]: #[id number] Pathologic DiagnosisPERIPHERAL BLOOD:- Normochromic, normocytic anemia-Neutrophilia, favor [...] Electronically Signed Out08/30/2024marah Norman MDInterpretation performed at [facility] [employer], [address] [place] [address], License number: [id number].Clinical QacvahvE99.624, L98.422, N39.0, I47.20. BLOOD SMEAR EVALUATIONCBC (08/28/2024 2475): WBC = 11.7 X10E9/L; HGB = 5.7 g/dL; HCT =17.6%; MCV = 86 fL; PLT = 48 X10E9/LSpecimen(s) ReceivedBlood Smear ReviewFee Codes(s):1; [address] Performed By: #### 4 679-7, 2532-0, 2276-4, 2284-8, 2132-9 ####[facility] ([id number])[address] [place] [address], [address], [place] [address] Reticulocytes/100 RBC (Bld)o n 08-28-2024 RETICULOCYTE COUNT 0.8 % Normal 0.4-2.2 [facility] Comment on above: Performed By: #### 4 679-7, 2532-0, 6-4, 2283-8, 2132-07 ####[facility] ([id number])[address], [address], [place] [address] VITAMIN B12on 08-28-2024 Cobalamin (Vitamin B12) [Mass/Vol] 171 pg/mL Low 180-914 [facility] Comment on above: Performed By: #### 4 679-7, 2-0, 2275-4, 2283-8, 2132-07 ####[facility] ([id number])[address], [address], [place] [address] BASIC METABOLIC PANLon 08-27 Anion gap [Moles/Vol] 11 mmol/L Normal 5-15 [facility] Comment on above: Performed By: #### B DIANE, LIVR, , 2776-11, CBCA ####[facility] ([id number])[address], [address], [place] [address] Calcium [Mass/Vol] 8.9 mg/dL Normal 8.5-10.5 [facility] Comment on above: Performed By: #### B DIANE, LIVR, , 2776-11, CBCA ####[facility] ([id number])[address], [address], [place] [address] Chloride [Moles/Vol] 95 mmol/L Low 98-109 [facility] Comment on above: Performed By: #### B MP, LIVR, , 2776-11, CBCA ####[facility] ([id number])[address], [address], [place] [address] CO2 [Moles/Vol] 35 mmol/L High 22-32 [facility] Comment on above: Performed By: #### B DIANE, LIVR, , 2776-11, CBCA ####[facility] ([id number])[address], [address] [place] [address] Creatinine [Mass/Vol] 3.85 mg/dL High 0.60-1.30 [facility] Comment on above: Result Comment: METH OD TRACEABLE TO IDMS STANDARD Performed By: #### B DIANE, LIVR, , 2776-11, CBCA ####[facility] ([id number])[address] [address] GFR/1.73 sq M.predicted among non-blacks MDRD (S/P/Bld) [Vol rate/Area] 17 mL/min/{1.73_m2} Low >59 [facility] Comment on above: Result Comment: Repo rted eGFR is based on theCKD-EPI 2020 equation that doesnot use a race coefficient. Performed By: #### B DIANE, LIVR, , 2776-11, CBCA ####[facility] ([id number])[address] [address] [place] [address] Glucose [Mass/Vol] 106 mg/dL High 65-99 [facility] Comment on above: Performed By: #### B DIANE, LIVR, , 2776-11, CBCA ####[facility] ([id number])[address] [address] [place] [address] Potassium [Moles/Vol] 5.0 mmol/L Normal 3.5-5.0 [facility] Comment on above: Performed By: #### B DIANE, LIVR, , 2776-11, CBCA ####[facility] ([id number])[address] [address] [address] Sodium [Moles/Vol] 141 mmol/L Normal 134-146 [facility] Comment on above: Performed By: #### B DIANE, LIVR, , 2776-11, CBCA ####[facility] ([id number])[address], [address] [place] [address] Urea nitrogen [Mass/Vol] 83 mg/dL High 5-27 [facility] Comment on above: Performed By: #### B DIANE, LIVR, , 2776-11, CBCA ####[facility] ([id number])[address] [address] BLOOD CULTUREon 08-27-2024 Bacteria identified Aer cx Nom (Bld) CULTURE RESULTS NO GROWTH 5 DAYS Normal [facility] Bacteria identified Aer cx Nom (Bld) CULTURE RESULTS NO GROWTH 5 DAYS Normal [facility] CBC AND AUTO DIFFon 08-27-20 ABSOLUTE BASOPHIL 0.0 X10E9/L Normal 0.0-0.2 [facility] Comment on above: Performed By: #### B DIANE, LIVR, , 2776-11, CBCA ####[facility] ([id number])[address], [address] [place] [address] ABSOLUTE NEUTROPHIL 9.5 X10E9/L High 1.5-6.6 [facility] Comment on above: Performed By: #### B DIANE, LIVR, , 2776-11, CBCA ####[facility] ([id number])[address], [address] [place] [address] Basophils/100 WBC (Bld) 0.2 % Normal [facility] Comment on above: Performed By: #### B DIANE, LIVR, , 2776-11, CBCA ####[facility] ([id number])[address] [address] Eosinophils (Bld) [#/Vol] 0.1 10*3/uL Normal 0.0-0.4 [facility] Comment on above: Performed By: #### B DIANE, LIVR, , 2776-11, CBCA ####[facility] [facility] ([id number])[address] [address] Eosinophils/100 WBC (Bld) 0.6 % Normal [facility] Comment on above: Performed By: #### B DIANE, LIVR, , 2776-11, CBCA ####[facility] [facility] ([id number])[address] [address] Erythrocyte distribution width (RBC) [Ratio] 17.3 % High 11.5-15.0 [facility] Comment on above: Performed By: #### B DIANE, LIVR, , 2776-11, CBCA ####[facility] [facility] ([id number])[address] [address] [place] [address] Hematocrit (Bld) [Volume fraction] 24.7 % Low 39-49 [facility] Comment on above: Performed By: #### B DIANE, LIVR, , 2776-11, CBCA ####[facility] [facility] ([id number])[address] [address] Hemoglobin (Bld) [Mass/Vol] 8.0 g/dL Low 13.0-17.0 [facility] Comment on above: Performed By: #### B MP, LIVR, , 2776-11, CBCA ####[facility] [facility] ([id number])[address] [address] Lymphocytes (Bld) [#/Vol] 0.9 10*3/uL Low 1.0-3.5 [facility] Comment on above: Performed By: #### B DIANE, LIVR, , 2776-11, CBCA ####[facility] [facility] ([id number])[address] [address] Lymphocytes/100 WBC (Bld) 7.8 % Normal [facility] Comment on above: Performed By: #### B MP, LIVR, , 2776-11, CBCA ####[facility] [place] [facility] ([id number])[address], [address] [place] [address] MCH (RBC) [Entitic mass] 27.8 pg Normal 27-34 [facility] Comment on above: Performed By: #### B DIANE, LIVR, , 2776-11, CBCA ####[facility] [facility] ([id number])[address], [address] [place] [address] MCHC (RBC) [Mass/Vol] 32.3 g/dL Normal 32-36 [facility] Comment on above: Performed By: #### B DIANE, LIVR, , 2776-11, CBCA ####[facility] ([id number])[address] [address] [place] [address] MCV (RBC) [Entitic vol] 86 fL Normal 80-100 [facility] Comment on above: Performed By: #### B DIANE, LIVR, , 2776-11, CBCA ####[facility] ([id number])[address] [address] [place] [address] Monocytes (Bld) [#/Vol] 1.1 10*3/uL High 0-0.9 [facility] Comment on above: Performed By: #### B MP, LIVR, , 2776-11, CBCA ####[facility] [facility] ([id number])[address] [address] [place] [address], [place] [address] Monocytes/100 WBC (Bld) 9.7 % Normal [facility] Comment on above: Performed By: #### B DIANE, LIVR, , 2776-11, CBCA ####[facility] [place] [facility] ([id number])[address] [address] [address] Neutrophils/100 WBC (Bld) 81.7 % Normal [facility] Comment on above: Performed By: #### B MP, LIVR, , 2776-11, CBCA ####[facility] [facility] ([id number])[address], [address] [place] [address] Platelet mean volume (Bld) [Entitic vol] 7.3 fL Normal 7-12 [facility] Comment on above: Performed By: #### B MP, LIVR, , 2776-11, CBCA ####[facility] [place] [facility] ([id number])[address] [address] [place] [address] Platelets (Bld) [#/Vol] 62 10*3/uL Low 150-450 [facility] Comment on above: Performed By: #### B MP, LIVR, , 2776-11, CBCA ####[facility] ([id number])0 [facility] [address] [place] [address], [place] [address] RBC COUNT 2.86 X10E12/L Low 4.10-5.70 [facility] Comment on above: Performed By: #### B MP, LIVR, , 2776-11, CBCA ####[facility] ([id number])[address] [address] [place] [address], [place] [address] WBC (Bld) [#/Vol] 11.7 10*3/uL High 4.0-11.0 [facility] Comment on above: Performed By: #### B MP, LIVR, , 2776-11, CBCA ####[facility] ([id number])[address] [address], [place] [address] LIVER PANELon 08-27-2024 Albumin [Mass/Vol] 3.7 g/dL Normal 3.2-5.3 [facility] Comment on above: Performed By: #### B MP, LIVR, , 2776-11, CBCA ####[facility] ([id number])[address] [place] [address] ALP [Catalytic activity/Vol] 52 U/L Normal 39-130 [facility] Comment on above: Performed By: #### B MP, LIVR, , 2776-11, CBCA ####[facility] ([id number])[address], [address] [place] [address] ALT [Catalytic activity/Vol] 3 U/L Normal 0-40 [facility] Comment on above: Performed By: #### B MP, LIVR, , 2776-11, CBCA ####[facility] ([id number])[address], [address] [place] [address] AST [Catalytic activity/Vol] 15 U/L Normal 0-41 [facility] Comment on above: Performed By: #### B MP, LIVR, , 2776-11, CBCA ####[facility] ([id number])[address], [address] [place] [address] Bilirubin [Mass/Vol] 0.9 mg/dL Normal 0.3-1.2 [facility] Comment on above: Performed By: #### B MP, LIVR, , 2776-11, CBCA ####[facility] ([id number])[address], [address] [place] [place] [address] Bilirubin.direct [Mass/Vol] 0.2 mg/dL Normal 0.0-0.4 [facility] Comment on above: Performed By: #### B MP, LIVR, 43850-827[address]-11, CBCA ####[facility] ([id number])[address], [place] [address] Protein [Mass/Vol] 6.5 g/dL Normal 6.0-8.0 [facility] Comment on above: Performed By: #### B MP, LIVR, , 2776-11, CBCA ####[facility] ([id number])[address], [address], [place] [address] Lactate (P oc) [Moles/Vol]o n 08-27-2024 LACTATE W/REFLEX 2.3 mmol/L High 0.4-2.0 [facility] Comment on above: Performed By: #### 3 2132-11 ####[facility] ([id number])[address], [address], [place] [address] MAGNESIUMon 08-27-2024 Magnesium [Mass/Vol] 2.4 mg/dL Normal 1.8-2.6 [facility] Comment on above: Performed By: #### B MP, LIVR, , 2776-11, CBCA ####[facility] ([id number])[address], [place] [address] PHOSPHORUSon 08-27-2024 Phosphate [Mass/Vol] 3.7 mg/dL Normal 2.4-4.9 [facility] Comment on above: Performed By: #### B MP, LIVR, , 2776-11, CBCA ####[facility] ([id number])[address], [address] [address] [place] [address] XR CHEST 1 VWon 08-27-2024 XR CHEST 1 VW Normal [facility] BASIC METABOLIC PANLon 08-26 Anion gap [Moles/Vol] 13 mmol/L Normal 5-15 [facility] Comment on above: Performed By: #### C BCA, BMP, , 2776-11 ####[facility] [place] [facility] ([id number])[address] [address], [place] [address] Calcium [Mass/Vol] 8.3 mg/dL Low 8.5-10.5 [facility] Comment on above: Performed By: #### C BCA, BMP, , 2776-11 ####[facility] [place] [facility] ([id number])[address] [address] [place] [address] Chloride [Moles/Vol] 97 mmol/L Low 98-109 [facility] Comment on above: Performed By: #### C BCA, BMP, , 2776-11 ####[facility] [place] [facility] ([id number])[address] [address] [place] [address] CO2 [Moles/Vol] 34 mmol/L High 22-32 [facility] Comment on above: Performed By: #### C BCA, BMP, , 2776-11 ####[facility] [place] [facility] ([id number])[address] [address] Creatinine [Mass/Vol] 3.75 mg/dL High 0.60-1.30 [facility] Comment on above: Result Comment: METH OD TRACEABLE TO IDMS STANDARD Performed By: #### C BCA, BMP, , 2776-11 ####[facility] [place] [facility] ([id number])[address] [address] GFR/1.73 sq M.predicted among non-blacks MDRD (S/P/Bld) [Vol rate/Area] 17 mL/min/{1.73_m2} Low >59 [facility] Comment on above: Result Comment: Repo rted eGFR is based on theCKD-EPI 2020 equation that doesnot use a race coefficient. Performed By: #### C BCA, BMP, , 2776-11 ####[facility] [place] [facility] ([id number])[address], [place] [address] Glucose [Mass/Vol] 102 mg/dL High 65-99 [facility] Comment on above: Performed By: #### C BCA, BMP, , 2776-11 ####[facility] [place] [facility] ([id number])[address], [address] [place] [address] Potassium [Moles/Vol] 3.7 mmol/L Normal 3.5-5.0 [facility] Comment on above: Performed By: #### C BCA, BMP, , 2776-11 ####[facility] [place] [facility] ([id number])[address], [address] [place] [place] [address] Sodium [Moles/Vol] 144 mmol/L Normal 134-146 [facility] Comment on above: Performed By: #### C BCA, BMP, , 2776-11 ####[facility] [place] [facility] ([id number])[address] [place] [place] [address] Urea nitrogen [Mass/Vol] 67 mg/dL High 5-27 [facility] Comment on above: Performed By: #### C BCA, BMP, , 2776-11 ####[facility] [place] ([id number])[address], [address], [place] [address] CBC AND AUTO DIFFon 10-24-20 24 ABSOLUTE BASOPHIL 0.0 X10E9/L Normal 0.0-0.2 [facility] Comment on above: Performed By: #### C BCA, BMP, , 2776-11 ####[facility] [place] [facility] ([id number])[address], [address] [place] [place] [address] ABSOLUTE NEUTROPHIL 4.6 X10E9/L Normal 1.5-6.6 [facility] Comment on above: Performed By: #### C BCA, BMP, , 2776-11 ####[facility] [place] [facility] ([id number])[address], [address], [place] [address] Basophils/100 WBC (Bld) 0.1 % Normal [facility] Comment on above: Performed By: #### C BCA, BMP, , 2776-11 ####[facility] [place] [facility] ([id number])[address] [address] Eosinophils (Bld) [#/Vol] 0.1 10*3/uL Normal 0.0-0.4 [facility] Comment on above: Performed By: #### C BCA, BMP, , 2776-11 ####[facility] [place] [facility] ([id number])[address] [address] [address] Eosinophils/100 WBC (Bld) 2.0 % Normal [facility] Comment on above: Performed By: #### C BCA, BMP, , 2776-11 ####[facility] [place] [facility] ([id number])[address] [address] [address] Erythrocyte distribution width (RBC) [Ratio] 17.1 % High 11.5-15.0 [facility] Comment on above: Performed By: #### C BCA, BMP, , 2776-11 ####[facility] [place] ([id number])[address] [address] [address] Hematocrit (Bld) [Volume fraction] 22.8 % Low 39-49 [facility] Comment on above: Performed By: #### C BCA, BMP, , 2776-11 ####[facility] [place] [facility] ([id number])[address] [address], [place] [address] Hemoglobin (Bld) [Mass/Vol] 7.4 g/dL Low 13.0-17.0 [facility] Comment on above: Performed By: #### C BCA, BMP, , 2776-11 ####[facility] [place] [facility] ([id number])[address], [address] [place] [address] Lymphocytes (Bld) [#/Vol] 0.9 10*3/uL Low 1.0-3.5 [facility] Comment on above: Performed By: #### C KERRY, BMP, , 2776-11 ####[facility] [place] [facility] ([id number])[address], [address] [place] [address] Lymphocytes/100 WBC (Bld) 14.3 % Normal [facility] Comment on above: Performed By: #### C KERRY, ADRIANA, , 2776-11 ####[facility] [place] ([id number])[address], [address] [place] [address] MCH (RBC) [Entitic mass] 27.8 pg Normal 27-34 [facility] Comment on above: Performed By: #### C KERRY BMP, , 2776-11 ####[facility] [place] ([id number])[address] [address] [place] [address] MCHC (RBC) [Mass/Vol] 32.2 g/dL Normal 32-36 [facility] Comment on above: Performed By: #### C ADRIANA PAYNE, , 2776-11 ####[facility] ([id number])[address] [address] [place] [address] MCV (RBC) [Entitic vol] 86 fL Normal 80-100 [facility] Comment on above: Performed By: #### C KERRY, BMP, , 2776-11 ####[facility] ([id number])[address] [address] [place] [address] Monocytes (Bld) [#/Vol] 0.9 10*3/uL Normal 0-0.9 [facility] Comment on above: Performed By: #### C KERRY, BMP, , 2776-11 ####[facility] [place] ([id number])[address], [address] [place] [place] [address] Monocytes/100 WBC (Bld) 14.1 % Normal [facility] Comment on above: Performed By: #### C BCA, BMP, , 2776-11 ####[facility] ([id number])[address], [address] [place] [place] [address] Neutrophils/100 WBC (Bld) 69.5 % Normal [facility] Comment on above: Performed By: #### C BCA, BMP, , 2776-11 ####[facility] ([id number])[address], [address], [place] [address] Platelet mean volume (Bld) [Entitic vol] 7.1 fL Normal 7-12 [facility] Comment on above: Performed By: #### C BCA, BMP, , 2776-11 ####[facility] ([id number])[address], [address], [place] [address] Platelets (Bld) [#/Vol] 60 10*3/uL Low 150-450 [facility] Comment on above: Performed By: #### C BCA, BMP, , 2776-11 ####[facility] [place] ([id number])[address], [address] [place] [place] [address] RBC COUNT 2.65 X10E12/L Low 4.10-5.70 [facility] Comment on above: Performed By: #### C BCA, BMP, , 2776-11 ####[facility] [place] ([id number])[address], [address] [place] [place] [address] WBC (Bld) [#/Vol] 6.6 10*3/uL Normal 4.0-11.0 [facility] Comment on above: Performed By: #### C ADRIANA PAYNE, 40404-4, 2776- ####[facility] ([id number])[address] [address] Fibrin+Fibrinogen fragments LA Qn (PPP)on 08-26-2024 FIBRIN SPLIT PRODUCT <5 Normal <5 [facility] Comment on above: Performed By: #### 4 8664-7, 3251-6, 28861-3 ####[facility] ([id number])[address] [address] Fibrinogen Coagulation.deriv ed (PPP) [Mass/Vol]on 08-26-2024 FIBRINOGEN 365 mg/dL Normal 190-480 [facility] Comment on above: Performed By: #### 4 8664-7, 3251-6, 89030-7 ####[facility] ([id number])[address] [address] Heparin induced platelet IgG IA [OD]on 08-26-2024 HEPARIN PF4 ANTIBODY (HIT) 0.102 OD Normal <0.4 [facility] Comment on above: Result Comment: --- O.D. Interpretation--- < 0.400 Negative >= 0.400 Positive Performed By: #### 4 8664-7, 3251-6, 92683-2 ####[facility] [place] ([id number])[address] [address] MAGNESIUMon 08-26-2024 Magnesium [Mass/Vol] 1.6 mg/dL Low 1.8-2.6 [facility] Comment on above: Performed By: #### C KERRY, BMP, , 277-1 ####[facility] [place] [facility] ([id number])[address] [place] [address] Magnesium Ionized ISE (Bld) [Moles/Vol]on 08-26-2024 Magnesium [Moles/Vol] 0.70 mmol/L Normal 0.45-0.74 [facility] Comment on above: Result Comment: NEW REFERENCE RANGE Performed By: #### 7 3572-0 ####[facility] [place] [facility] ([id number])[address], [place] [address] PHOSPHORUSon 08-26-2024 Phosphate [Mass/Vol] 4.1 mg/dL Normal 2.4-4.9 [facility] Comment on above: Performed By: #### C BCA, BMP, 16531-2, 2777-1 ####[facility] [place] ([id number])[address], [place] [address] POTASSIUMon 08-26-2024 Potassium [Moles/Vol] 4.6 mmol/L Normal 3.5-5.0 [facility] Comment on above: Performed By: #### 2 823-3 ####[facility] [place] ([id number])[address] [address] Potassium [Moles/Vol] 3.8 mmol/L Normal 3.5-5.0 [facility] Comment on above: Performed By: #### 2 823-3 ####[facility] [place] [facility] ([id number])[address] [address], [place] [address] ARTERIAL BLOOD GASon 024 NANCY'S TEST Normal [facility] Comment on above: Performed By: #### A BG ####[facility] ([id number])[address] [place] [address] Base excess Calc (Bld) [Moles/Vol] 7.0 mmol/L High 0.0-2.0 [facility] Comment on above: Performed By: #### A BG ####[facility] ([id number])[address] [place] [address] Body temperature 98.6 [degF] Normal 37.0 [facility] Comment on above: Performed By: #### A BG ####[facility] ([id number])[address] [place] [address] HCO3 (Bld) [Moles/Vol] 31.9 mmol/L High 22-26 [facility] Comment on above: Performed By: #### A BG ####[facility] ([id number])[address] [place] [address] INSP. O2 CONC. 28 % Normal [facility] Comment on above: Performed By: #### A BG ####[facility] ([id number])[address] [place] [address] Oxygen (Bld) [Partial pressure] 69 mm[Hg] Low 80-100 [facility] Comment on above: Performed By: #### A BG ####[facility] ([id number])[address] [facility] [place] [address] Oxygen saturation in Blood 94.0 % Normal >90 [facility] Comment on above: Performed By: #### A BG ####[facility] ([id number])[address] [facility] [place] [address] OXYGEN SOURCE NC Normal [facility] Comment on above: Performed By: #### A BG ####[facility] ([id number])[address] [place] [address] PCO2 46.8 MMHG High 35-45 [facility] Comment on above: Performed By: #### A BG ####[facility] ([id number])[address] [facility] [place] [address] pH (Bld) 7.442 [pH] Normal 7.350-7.450 [facility] Comment on above: Performed By: #### A BG ####[facility] ([id number])[address] [place] [address] SAMPLE SITE Andreea Normal [facility] Comment on above: Performed By: #### A BG ####[facility] ([id number])[address] [place] [address] SAMPLE TYPE ARTERIAL Normal [facility] Comment on above: Performed By: #### A BG ####[facility] ([id number])[address] [place] [address] BASIC METABOLIC PANLon 08-25 Anion gap [Moles/Vol] 13 mmol/L Normal 5-15 [facility] Comment on above: Performed By: #### C BCA, BMP, , 2776-11 ####[facility] [place] [facility] ([id number])[address], [place] [address] Calcium [Mass/Vol] 7.7 mg/dL Low 8.5-10.5 [facility] Comment on above: Performed By: #### C BCA, BMP, , 2776-11 ####[facility] [place] [facility] ([id number])[address], [place] [address] Chloride [Moles/Vol] 100 mmol/L Normal 98-109 [facility] Comment on above: Performed By: #### C BCA, BMP, , 2776-11 ####[facility] [place] [facility] ([id number])[address], [place] [address] CO2 [Moles/Vol] 31 mmol/L Normal 22-32 [facility] Comment on above: Performed By: #### C BCA, BMP, , 2776-11 ####[facility] [place] [facility] ([id number])[address], [place] [address] Creatinine [Mass/Vol] 3.92 mg/dL High 0.60-1.30 [facility] Comment on above: Result Comment: METH OD TRACEABLE TO IDMS STANDARD Performed By: #### C ADRIANA PAYNE, , 2776-11 ####[facility] [place] [facility] ([id number])[address], [place] [address] GFR/1.73 sq M.predicted among non-blacks MDRD (S/P/Bld) [Vol rate/Area] 16 mL/min/{1.73_m2} Low >59 [facility] Comment on above: Result Comment: Repo rted eGFR is based on theCKD-EPI 2020 equation that doesnot use a race coefficient. Performed By: #### C ADRIANA PAYNE, , 2776-11 ####[facility] [place] [facility] ([id number])[address] [address], [place] [address] Glucose [Mass/Vol] 92 mg/dL Normal 65-99 [facility] Comment on above: Performed By: #### C ADRIANA PAYNE, , 2776-11 ####[facility] [place] [facility] ([id number])[address] [address], [place] [address] Potassium [Moles/Vol] 3.5 mmol/L Normal 3.5-5.0 [facility] Comment on above: Performed By: #### C ADRIANA PAYNE, , 2776-11 ####[facility] [place] [facility] ([id number])[address] [address], [place] [address] Sodium [Moles/Vol] 144 mmol/L Normal 134-146 [facility] Comment on above: Performed By: #### C ADRIANA PAYNE, , 2776-11 ####[facility] [place] [facility] ([id number])[address] [address], [place] [address] Urea nitrogen [Mass/Vol] 70 mg/dL High 5-27 [facility] Comment on above: Performed By: #### C ADRIANA PAYNE, , 2776-11 ####[facility] [place] [facility] ([id number])[address], [place] [address] CBC AND AUTO DIFFon 10--20 24 ABSOLUTE BASOPHIL 0.0 X10E9/L Normal 0.0-0.2 [facility] Comment on above: Performed By: #### C BCA, BMP, , 2776-11 ####[facility] [place] [facility] ([id number])[address], [place] [address] ABSOLUTE NEUTROPHIL 4.1 X10E9/L Normal 1.5-6.6 [facility] Comment on above: Performed By: #### C KERRY, [facility], , 2776-11 ####[facility] [place] [facility] ([id number])[address] [address] Basophils/100 WBC (Bld) 0.2 % Normal [facility] Comment on above: Performed By: #### C KERRY, BMP, , 2776-11 ####[facility] [place] [facility] ([id number])[address] [address] [address] Eosinophils (Bld) [#/Vol] 0.1 10*3/uL Normal 0.0-0.4 [facility] Comment on above: Performed By: #### C BCA, BMP, , 2776-11 ####[facility] [place] ([id number])[address] [address] Eosinophils/100 WBC (Bld) 1.9 % Normal [facility] Comment on above: Performed By: #### C BCA, BMP, , 2776-11 ####[facility] ([id number])[address], [place] [address] Erythrocyte distribution width (RBC) [Ratio] 17.5 % High 11.5-15.0 [facility] Comment on above: Performed By: #### C KERRY, [facility], , 2776-11 ####[facility] ([id number])[address] [address] Hematocrit (Bld) [Volume fraction] 24.2 % Low 39-49 [facility] Comment on above: Performed By: #### C KERRY, [facility], , 2776-11 ####[facility] [place] ([id number])[address] [address] Hemoglobin (Bld) [Mass/Vol] 7.9 g/dL Low 13.0-17.0 [facility] Comment on above: Performed By: #### C KERRY, BMP, , 2776-11 ####[facility] [place] [facility] ([id number])[address] [address] [place] [address] Lymphocytes (Bld) [#/Vol] 1.0 10*3/uL Normal 1.0-3.5 [facility] Comment on above: Performed By: #### C KERRY, [facility], , 2776-11 ####[facility] [place] [facility] ([id number])[address] [address] Lymphocytes/100 WBC (Bld) 16.1 % Normal [facility] Comment on above: Performed By: #### C KERRY, BMP, , 2776-11 ####[facility] [place] [facility] ([id number])[address] [address] [place] [address] MCH (RBC) [Entitic mass] 28.0 pg Normal 27-34 [facility] Comment on above: Performed By: #### C KERRY, BMP, , 2776-11 ####[facility] [place] [facility] ([id number])[address] [address] [place] [address] MCHC (RBC) [Mass/Vol] 32.7 g/dL Normal 32-36 [facility] Comment on above: Performed By: #### C ADRIANA PAYNE, , 2776-11 ####[facility] [place] [facility] ([id number])[address], [place] [address] MCV (RBC) [Entitic vol] 86 fL Normal 80-100 [facility] Comment on above: Performed By: #### Belle PAYNE, BMP, , 2776-11 ####[facility] [place] [facility] ([id number])[address] [place] [address] Monocytes (Bld) [#/Vol] 0.7 10*3/uL Normal 0-0.9 [facility] Comment on above: Performed By: #### Belle PAYNE, BMP, , 2776-11 ####[facility] [place] [facility] ([id number])[address] [place] [place] [address] Monocytes/100 WBC (Bld) 12.6 % Normal [facility] Comment on above: Performed By: #### Belle PAYNE, BMP, , 2776-11 ####[facility] [place] [facility] ([id number])[address] [address] [place] [address] Neutrophils/100 WBC (Bld) 69.2 % Normal [facility] Comment on above: Performed By: #### Belle PAYNE, BMP, , 2776-11 ####[facility] [place] [facility] ([id number])[address] [address] Platelet mean volume (Bld) [Entitic vol] 7.2 fL Normal 7-12 [facility] Comment on above: Performed By: #### Belle PAYNE, BMP, , 2776-11 ####[facility] [place] [facility] ([id number])[address], [place] [address] Platelets (Bld) [#/Vol] 84 10*3/uL Low 150-450 [facility] Comment on above: Performed By: #### C ADRIANA PAYNE, , 2776-11 ####[facility] [place] [facility] ([id number])[address] [address] RBC COUNT 2.83 X10E12/L Low 4.10-5.70 [facility] Comment on above: Performed By: #### C ADRIANA PAYNE, , 2776-11 ####[facility] [place] [facility] ([id number])[address] [address] WBC (Bld) [#/Vol] 5.9 10*3/uL Normal 4.0-11.0 [facility] Comment on above: Performed By: #### C ADRIANA PAYNE, , 2776-11 ####[facility] [place] [facility] ([id number])[address] [address] MAGNESIUMon 08-25-2024 Magnesium [Mass/Vol] 1.8 mg/dL Normal 1.8-2.6 [facility] Comment on above: Performed By: #### C ADRIANA PAYNE, , 2776-11 ####[facility] [facility] ([id number])[address] [address] PHOSPHORUSon 08-25-2024 Phosphate [Mass/Vol] 5.3 mg/dL High 2.4-4.9 [facility] Comment on above: Performed By: #### C ADRIANA PAYNE, , 2776-11 ####[facility] [place] [facility] ([id number])[address] [address] POTASSIUMon 08-25-2024 Potassium [Moles/Vol] 3.7 mmol/L Normal 3.5-5.0 [facility] Comment on above: Performed By: #### 2 823-3 ####[facility] [facility] ([id number])[address], [place] [address] BASIC METABOLIC PANLon 08-24 Anion gap [Moles/Vol] 12 mmol/L Normal 5-15 [facility] Comment on above: Performed By: #### B DIANE, , 2776-11, CBCA ####[facility] [place] [facility] ([id number])[address], [place] [address] Calcium [Mass/Vol] 8.2 mg/dL Low 8.5-10.5 [facility] Comment on above: Performed By: #### B DIANE, , 2776-11, CBCA ####[facility] [place] [facility] ([id number])[address] [facility] [address] Chloride [Moles/Vol] 104 mmol/L Normal 98-109 [facility] Comment on above: Performed By: #### B DIANE, , 2776-11, CBCA ####[facility] [place] [facility] ([id number])[address] [address] [place] [address] CO2 [Moles/Vol] 29 mmol/L Normal 22-32 [facility] Comment on above: Performed By: #### B DIANE, , 2776-11, CBCA ####[facility] [place] [facility] ([id number])[address] [address] [place] [place] [address] Creatinine [Mass/Vol] 3.99 mg/dL High 0.60-1.30 [facility] Comment on above: Result Comment: METH OD TRACEABLE TO IDMS STANDARD Performed By: #### B DIANE, , 2776-11, CBCA ####[facility] [place] [facility] ([id number])[address], [place] [address] GFR/1.73 sq M.predicted among non-blacks MDRD (S/P/Bld) [Vol rate/Area] 16 mL/min/{1.73_m2} Low >59 [facility] Comment on above: Result Comment: Repo rted eGFR is based on theCKD-EPI 2020 equation that doesnot use a race coefficient. Performed By: #### B DIANE, , 2776-11, CBCA ####[facility] ([id number])[address], [address] [place] [address] Glucose [Mass/Vol] 83 mg/dL Normal 65-99 [facility] Comment on above: Performed By: #### B DIANE, , 2776-11, CBCA ####[facility] ([id number])[address] [address] Potassium [Moles/Vol] 4.0 mmol/L Normal 3.5-5.0 [facility] Comment on above: Performed By: #### B DIANE, , 2776-11, CBCA ####[facility] ([id number])[address] [address] [place] [address] Sodium [Moles/Vol] 145 mmol/L Normal 134-146 [facility] Comment on above: Performed By: #### B DIANE, , 2776-11, CBCA ####[facility] ([id number])[address] [address] Urea nitrogen [Mass/Vol] 72 mg/dL High 5-27 [facility] Comment on above: Performed By: #### B DIANE, , 2776-11, CBCA ####[facility] ([id number])[address] [address] CBC AND AUTO DIFFon 10-22-20 24 ABSOLUTE BASOPHIL 0.0 X10E9/L Normal 0.0-0.2 [facility] Comment on above: Performed By: #### B DIANE, , 2776-11, CBCA ####[facility] ([id number])[address], [place] [address] ABSOLUTE NEUTROPHIL 5.6 X10E9/L Normal 1.5-6.6 [facility] Comment on above: Performed By: #### B DIANE, , 2776-11, CBCA ####[facility] ([id number])[address], [place] [address] Basophils/100 WBC (Bld) 0.5 % Normal [facility] Comment on above: Performed By: #### B DIANE, , 2776-11, CBCA ####[facility] ([id number])[address] [place] [address] Eosinophils (Bld) [#/Vol] 0.0 10*3/uL Normal 0.0-0.4 [facility] Comment on above: Performed By: #### B DIANE, , 2776-11, CBCA ####[facility] ([id number])[address], [address] [place] [address] Eosinophils/100 WBC (Bld) 0.7 % Normal [facility] Comment on above: Performed By: #### B DIANE, , 2776-11, CBCA ####[facility] ([id number])[address] [place] [address] Erythrocyte distribution width (RBC) [Ratio] 17.3 % High 11.5-15.0 [facility] Comment on above: Performed By: #### B DIANE, , 2776-11, CBCA ####[facility] ([id number])[address], [place] [address] Hematocrit (Bld) [Volume fraction] 23.7 % Low 39-49 [facility] Comment on above: Performed By: #### B DIANE, , 2776-11, CBCA ####[facility] [facility] ([id number])[address] [address] [place] [address] Hemoglobin (Bld) [Mass/Vol] 7.7 g/dL Low 13.0-17.0 [facility] Comment on above: Performed By: #### Suhas CONTRERAS, , 2776-11, CBCA ####[facility] ([id number])[address] [address] [place] [address] Lymphocytes (Bld) [#/Vol] 0.6 10*3/uL Low 1.0-3.5 [facility] Comment on above: Performed By: #### Suhas CONTRERAS, , 2776-11, CBCA ####[facility] ([id number])[address] [address] Lymphocytes/100 WBC (Bld) 8.4 % Normal [facility] Comment on above: Performed By: #### Suhas CONTRERAS, , 2776-11, CBCA ####[facility] ([id number])[address] [address] MCH (RBC) [Entitic mass] 27.8 pg Normal 27-34 [facility] Comment on above: Performed By: #### Suhas CONTRERAS, , 2776-11, CBCA ####[facility] ([id number])[address] [address] [place] [address] MCHC (RBC) [Mass/Vol] 32.3 g/dL Normal 32-36 [facility] Comment on above: Performed By: #### Suhas CONTRERAS, , 2776-11, CBCA ####[facility] ([id number])[address] [address] [place] [address] MCV (RBC) [Entitic vol] 86 fL Normal 80-100 [facility] Comment on above: Performed By: #### B DIANE, , 2776-11, CBCA ####[facility] ([id number])[address], [place] [address] Monocytes (Bld) [#/Vol] 0.6 10*3/uL Normal 0-0.9 [facility] Comment on above: Performed By: #### B DIANE, , 2776-11, CBCA ####[facility] ([id number])[address] [address] Monocytes/100 WBC (Bld) 9.1 % Normal [facility] Comment on above: Performed By: #### B DIANE, , 2776-11, CBCA ####[facility] ([id number])[address] [address] Neutrophils/100 WBC (Bld) 81.3 % Normal [facility] Comment on above: Performed By: #### Suhas CONTRERAS, , 2776-11, CBCA ####[facility] ([id number])[address], [place] [address] Platelet mean volume (Bld) [Entitic vol] 7.6 fL Normal 7-12 [facility] Comment on above: Performed By: #### Suhas CONTRERAS, , 2776-11, CBCA ####[facility] ([id number])[address] [place] [address] Platelets (Bld) [#/Vol] 95 10*3/uL Low 150-450 [facility] Comment on above: Performed By: #### B DIANE, , 2776-11, CBCA ####[facility] ([id number])[address] [place] [address] RBC COUNT 2.76 X10E12/L Low 4.10-5.70 [facility] Comment on above: Performed By: #### B DIANE, , 2776-11, CBCA ####[facility] ([id number])[address], [address] [place] [address] WBC (Bld) [#/Vol] 6.9 10*3/uL Normal 4.0-11.0 [facility] Comment on above: Performed By: #### B DIANE, , 2776-11, CBCA ####[facility] ([id number])[address] [address] MAGNESIUMon 08-24-2024 Magnesium [Mass/Vol] 2.0 mg/dL Normal 1.8-2.6 [facility] Comment on above: Performed By: #### B DIANE, , 2776-11, CBCA ####[facility] ([id number])[address] [address] PHOSPHORUSon 08-24-2024 Phosphate [Mass/Vol] 6.5 mg/dL High 2.4-4.9 [facility] Comment on above: Performed By: #### B DIANE, , 2776-11, CBCA ####[facility] ([id number])[address], [address] [place] [address] ARTERIAL CODEon 08-23-2024 NANCY'S TEST Normal [facility] Comment on above: Performed By: #### I CODE ####[facility] ([id number])[address] [place] [address] Base excess Calc (Bld) [Moles/Vol] 0.0 mmol/L Normal 0.0-2.0 [facility] Comment on above: Performed By: #### I CODE ####[facility] ([id number])[address] [place] [address] Body temperature 98.6 [degF] Normal 37.0 [facility] Comment on above: Performed By: #### I CODE ####[facility] ([id number])[address] [facility] [place] [address] Glucose [Mass/Vol] 78 mg/dL Normal 65-99 [facility] Comment on above: Performed By: #### I CODE ####[facility] ([id number])[address] [place] [address] HCO3 (Bld) [Moles/Vol] 26.4 mmol/L High 22-26 [facility] Comment on above: Performed By: #### I CODE ####[facility] ([id number])[address] [facility] [place] [address] Hematocrit (Bld) [Volume fraction] 24 % Low 39-49 [facility] Comment on above: Performed By: #### I CODE ####[facility] ([id number])[address] [place] [address] INSP. O2 CONC. 44 % Normal [facility] Comment on above: Performed By: #### I CODE ####[facility] ([id number])[address] [place] [address] Oxygen (Bld) [Partial pressure] 69 mm[Hg] Low 80-100 [facility] Comment on above: Performed By: #### I CODE ####[facility] ([id number])[address] [place] [address] Oxygen saturation in Blood 91.0 % Normal >90 [facility] Comment on above: Performed By: #### I CODE ####[facility] ([id number])[address] [facility] [place] [address] OXYGEN SOURCE NC Normal [facility] Comment on above: Performed By: #### I CODE ####[facility] ([id number])[address] [place] [address] PCO2 53.7 MMHG High 35-45 [facility] Comment on above: Performed By: #### I CODE ####[facility] ([id number])[address] [place] [address] pH (Bld) 7.300 [pH] Low 7.350-7.450 [facility] Comment on above: Performed By: #### I CODE ####[facility] ([id number])[address] [place] [address] PORTABLE ICA 4.8 mg/dL Normal 4.5-5.3 [facility] Comment on above: Performed By: #### I CODE ####[facility] ([id number])[address] [place] [address] Potassium [Moles/Vol] 4.0 mmol/L Normal 3.5-5.0 [facility] Comment on above: Performed By: #### I CODE ####[facility] ([id number])[address] [place] [address] SAMPLE SITE Andreea Normal [facility] Comment on above: Performed By: #### I CODE ####[facility] ([id number])[address] [place] [address] SAMPLE TYPE ARTERIAL Normal [facility] Comment on above: Performed By: #### I CODE ####[facility] ([id number])[address] [place] [address] Sodium [Moles/Vol] 143 mmol/L Normal 134-146 [facility] Comment on above: Performed By: #### I CODE ####[facility] ([id number])[address] [place] [address] BASIC METABOLIC PANLon 08-23 Anion gap [Moles/Vol] 13 mmol/L Normal 5-15 [facility] Comment on above: Performed By: #### Suhas CONTRERAS, , 2776-11 ####[facility] ([id number])[address] [address] [place] [address] Calcium [Mass/Vol] 8.6 mg/dL Normal 8.5-10.5 [facility] Comment on above: Performed By: #### Suhas CONTRERAS, , 2776-11 ####[facility] ([id number])[address] [address] [address] Chloride [Moles/Vol] 106 mmol/L Normal 98-109 [facility] Comment on above: Performed By: #### Suhas CONTRERAS, , 2776-11 ####[facility] ([id number])[address] [address] [address] CO2 [Moles/Vol] 25 mmol/L Normal 22-32 [facility] Comment on above: Performed By: #### Suhas CONTRERAS, , 2776-11 ####[facility] ([id number])[address] [address], [place] [address] Creatinine [Mass/Vol] 3.93 mg/dL High 0.60-1.30 [facility] Comment on above: Result Comment: METH OD TRACEABLE TO IDMS STANDARD Performed By: #### Suhas CONTRERAS, , 2776-11 ####[facility] ([id number])[address] [address] GFR/1.73 sq M.predicted among non-blacks MDRD (S/P/Bld) [Vol rate/Area] 16 mL/min/{1.73_m2} Low >59 [facility] Comment on above: Result Comment: Repo rted eGFR is based on theCKD-EPI 2020 equation that doesnot use a race coefficient. Performed By: #### Suhas CONTRERAS, , 2776-11 ####[facility] ([id number])[address] [place] [place] [address] Glucose [Mass/Vol] 90 mg/dL Normal 65-99 [facility] Comment on above: Performed By: #### B DIANE, , 2776- ####[facility] ([id number])[address] [place] [address] Potassium [Moles/Vol] 4.1 mmol/L Normal 3.5-5.0 [facility] Comment on above: Performed By: #### B DIANE, , 2776- ####[facility] ([id number])[address], [place] [address] Sodium [Moles/Vol] 144 mmol/L Normal 134-146 [facility] Comment on above: Performed By: #### B DIANE, , 2776-11 ####[facility] ([id number])[address], [place] [address] Urea nitrogen [Mass/Vol] 73 mg/dL High 5-27 [facility] Comment on above: Performed By: #### Suhas CONTRERAS, , 2776-11 ####[facility] ([id number])[address], [place] [address] CBC AND AUTO DIFFon 10-21-20 24 ABSOLUTE BASOPHIL 0.0 X10E9/L Normal 0.0-0.2 [facility] Comment on above: Performed By: #### C BCA ####[facility] ([id number])[address] [place] [place] [address] ABSOLUTE NEUTROPHIL 6.0 X10E9/L Normal 1.5-6.6 [facility] Comment on above: Performed By: #### C BCA ####[facility] ([id number])[address] [place] [place] [address] Basophils/100 WBC (Bld) 0.0 % Normal [facility] Comment on above: Performed By: #### C BCA ####[facility] ([id number])[address] [address] Eosinophils (Bld) [#/Vol] 0.0 10*3/uL Normal 0.0-0.4 [facility] Comment on above: Performed By: #### C BCA ####[facility] ([id number])[address] [address] [address] Eosinophils/100 WBC (Bld) 0.4 % Normal [facility] Comment on above: Performed By: #### C BCA ####[facility] ([id number])[address] [address] Erythrocyte distribution width (RBC) [Ratio] 18.0 % High 11.5-15.0 [facility] Comment on above: Performed By: #### C BCA ####[facility] ([id number])[address] [address] Hematocrit (Bld) [Volume fraction] 23.5 % Low 39-49 [facility] Comment on above: Performed By: #### C BCA ####[facility] ([id number])[address] [address] Hemoglobin (Bld) [Mass/Vol] 7.6 g/dL Low 13.0-17.0 [facility] Comment on above: Performed By: #### C BCA ####[facility] ([id number])[address] [address] Lymphocytes (Bld) [#/Vol] 0.6 10*3/uL Low 1.0-3.5 [facility] Comment on above: Performed By: #### C BCA ####[facility] ([id number])[address] [address] [address] Lymphocytes/100 WBC (Bld) 7.8 % Normal [facility] Comment on above: Performed By: #### C BCA ####[facility] ([id number])[address], [place] [address] MCH (RBC) [Entitic mass] 28.0 pg Normal 27-34 [facility] Comment on above: Performed By: #### C BCA ####[facility] ([id number])[address] [address] [address] MCHC (RBC) [Mass/Vol] 32.5 g/dL Normal 32-36 [facility] Comment on above: Performed By: #### C BCA ####[facility] ([id number])[address] [address] [address] MCV (RBC) [Entitic vol] 86 fL Normal 80-100 [facility] Comment on above: Performed By: #### C BCA ####[facility] ([id number])[address] [address] [address] Monocytes (Bld) [#/Vol] 0.6 10*3/uL Normal 0-0.9 [facility] Comment on above: Performed By: #### C BCA ####[facility] ([id number])[address] [address], [place] [address] Monocytes/100 WBC (Bld) 7.9 % Normal [facility] Comment on above: Performed By: #### C BCA ####[facility] ([id number])[address] [address], [place] [address] Neutrophils/100 WBC (Bld) 83.9 % Normal [facility] Comment on above: Performed By: #### C BCA ####[facility] ([id number])[address], [place] [address] Platelet mean volume (Bld) [Entitic vol] 7.3 fL Normal 7-12 [facility] Comment on above: Performed By: #### C BCA ####[facility] [facility] ([id number])[address], [place] [address] Platelets (Bld) [#/Vol] 95 10*3/uL Low 150-450 [facility] Comment on above: Performed By: #### C BCA ####[facility] [facility] ([id number])[address], [place] [address] RBC COUNT 2.73 X10E12/L Low 4.10-5.70 [facility] Comment on above: Performed By: #### C BCA ####[facility] [facility] ([id number])[address], [place] [address] WBC (Bld) [#/Vol] 7.2 10*3/uL Normal 4.0-11.0 [facility] Comment on above: Performed By: #### C BCA ####[facility] [facility] ([id number])[address], [place] [address] ABSOLUTE BASOPHIL 0.0 X10E9/L Normal 0.0-0.2 [facility] Comment on above: Performed By: #### C BCA, ELEC ####[facility] [facility] ([id number])[address], [place] [address] ABSOLUTE NEUTROPHIL 6.1 X10E9/L Normal 1.5-6.6 [facility] Comment on above: Performed By: #### C BCA, ELEC ####[facility] [facility] ([id number])[address], [place] [address] Basophils/100 WBC (Bld) 0.1 % Normal [facility] Comment on above: Performed By: #### C BCA, ELEC ####[facility] [facility] ([id number])[address] [address] [place] [place] [address] Eosinophils (Bld) [#/Vol] 0.0 10*3/uL Normal 0.0-0.4 [facility] Comment on above: Performed By: #### C BCA, ELEC ####[facility] [facility] ([id number])[address] [address] Eosinophils/100 WBC (Bld) 0.2 % Normal [facility] Comment on above: Performed By: #### C BCA, ELEC ####[facility] [facility] ([id number])[address] [address], [place] [address] Erythrocyte distribution width (RBC) [Ratio] 17.7 % High 11.5-15.0 [facility] Comment on above: Performed By: #### C BCA, ELEC ####[facility] ([id number])[address] [address], [place] [address] Hematocrit (Bld) [Volume fraction] 23.8 % Low 39-49 [facility] Comment on above: Performed By: #### C BCA, ELEC ####[facility] [facility] ([id number])[address] [address], [place] [address] Hemoglobin (Bld) [Mass/Vol] 7.7 g/dL Low 13.0-17.0 [facility] Comment on above: Performed By: #### C BCA, ELEC ####[facility] [facility] ([id number])[address] [address] [place] [address] Lymphocytes (Bld) [#/Vol] 0.6 10*3/uL Low 1.0-3.5 [facility] Comment on above: Performed By: #### C BCA, ELEC ####[facility] [facility] ([id number])[address] [address] [address] Lymphocytes/100 WBC (Bld) 8.3 % Normal [facility] Comment on above: Performed By: #### C BCA, ELEC ####[facility] [place] [facility] ([id number])[address] [place] [place] [address] MCH (RBC) [Entitic mass] 27.9 pg Normal 27-34 [facility] Comment on above: Performed By: #### C BCA, ELEC ####[facility] ([id number])[address] [address] MCHC (RBC) [Mass/Vol] 32.2 g/dL Normal 32-36 [facility] Comment on above: Performed By: #### C BCA, ELEC ####[facility] [facility] ([id number])[address] [address], [place] [address] MCV (RBC) [Entitic vol] 87 fL Normal 80-100 [facility] Comment on above: Performed By: #### C BCA, ELEC ####[facility] [facility] ([id number])[address] [address], [place] [address] Monocytes (Bld) [#/Vol] 0.6 10*3/uL Normal 0-0.9 [facility] Comment on above: Performed By: #### C BCA, ELEC ####[facility] [place] [facility] ([id number])[address] [place] [place] [address] Monocytes/100 WBC (Bld) 8.1 % Normal [facility] Comment on above: Performed By: #### C BCA, ELEC ####[facility] ([id number])[address] [address] [place] [address] Neutrophils/100 WBC (Bld) 83.3 % Normal [facility] Comment on above: Performed By: #### C BCA, ELEC ####[facility] [facility] ([id number])[address], [place] [address] Platelet mean volume (Bld) [Entitic vol] 7.4 fL Normal 7-12 [facility] Comment on above: Performed By: #### C BCA, ELEC ####[facility] [place] [facility] ([id number])[address], [place] [address] Platelets (Bld) [#/Vol] 98 10*3/uL Low 150-450 [facility] Comment on above: Performed By: #### C BCA, ELEC ####[facility] [place] [facility] ([id number])[address] [place] [place] [address] RBC COUNT 2.75 X10E12/L Low 4.10-5.70 [facility] Comment on above: Performed By: #### C BCA, ELEC ####[facility] [place] [facility] ([id number])[address] [place] [place] [address] WBC (Bld) [#/Vol] 7.3 10*3/uL Normal 4.0-11.0 [facility] Comment on above: Performed By: #### C BCA, ELEC ####[facility] [place] [facility] ([id number])[address], [place] [address] ELECTROLYTESon 08-23-2024 Anion gap [Moles/Vol] 12 mmol/L Normal 5-15 [facility] Comment on above: Performed By: #### E LEC ####[facility] [place] [facility] ([id number])[address] [place] [place] [address] Chloride [Moles/Vol] 106 mmol/L Normal 98-109 [facility] Comment on above: Performed By: #### E LEC ####[facility] [place] [facility] ([id number])[address] [address] CO2 [Moles/Vol] 26 mmol/L Normal 22-32 [facility] Comment on above: Performed By: #### E LEC ####[facility] ([id number])[address], [place] [address] Potassium [Moles/Vol] 3.6 mmol/L Normal 3.5-5.0 [facility] Comment on above: Performed By: #### E LEC ####[facility] [place] [facility] ([id number])[address], [place] [address] Sodium [Moles/Vol] 144 mmol/L Normal 134-146 [facility] Comment on above: Performed By: #### E LEC ####[facility] [place] [facility] ([id number])[address], [place] [address] Anion gap [Moles/Vol] 16 mmol/L High 5-15 [facility] Comment on above: Performed By: #### E LEC ####[facility] [place] [facility] ([id number])[address], [place] [address] Chloride [Moles/Vol] 104 mmol/L Normal 98-109 [facility] Comment on above: Performed By: #### E LEC ####[facility] [place] [facility] ([id number])[address], [place] [address] CO2 [Moles/Vol] 25 mmol/L Normal 22-32 [facility] Comment on above: Performed By: #### E LEC ####[facility] [place] [facility] ([id number])[address], [place] [address] Potassium [Moles/Vol] 3.8 mmol/L Normal 3.5-5.0 [facility] Comment on above: Performed By: #### E LEC ####[facility] [place] [facility] ([id number])[address], [place] [address] Sodium [Moles/Vol] 145 mmol/L Normal 134-146 [facility] Comment on above: Performed By: #### E LEC ####[facility] [place] [facility] ([id number])[address], [place] [address] Anion gap [Moles/Vol] 14 mmol/L Normal 5-15 [facility] Comment on above: Performed By: #### C BCA, ELEC ####[facility] [place] [facility] ([id number])[address], [place] [address] Chloride [Moles/Vol] 105 mmol/L Normal 98-109 [facility] Comment on above: Performed By: #### C BCA, ELEC ####[facility] [place] [facility] ([id number])[address], [place] [address] CO2 [Moles/Vol] 25 mmol/L Normal 22-32 [facility] Comment on above: Performed By: #### C BCA, ELEC ####[facility] [place] [facility] ([id number])[address], [place] [address] Potassium [Moles/Vol] 4.1 mmol/L Normal 3.5-5.0 [facility] Comment on above: Performed By: #### C BCA, ELEC ####[facility] [place] [facility] ([id number])[address], [place] [address] Sodium [Moles/Vol] 144 mmol/L Normal 134-146 [facility] Comment on above: Performed By: #### C BCA, ELEC ####[facility] [place] [facility] ([id number])[address], [place] [address] Anion gap [Moles/Vol] 15 mmol/L Normal 5-15 [facility] Comment on above: Performed By: #### E LEC ####[facility] [place] [facility] ([id number])[address], [place] [address] Chloride [Moles/Vol] 105 mmol/L Normal 98-109 [facility] Comment on above: Performed By: #### E LEC ####[facility] [place] [facility] ([id number])[address], [place] [address] CO2 [Moles/Vol] 24 mmol/L Normal 22-32 [facility] Comment on above: Performed By: #### E LEC ####[facility] ([id number])[address], [place] [address] Potassium [Moles/Vol] 4.2 mmol/L Normal 3.5-5.0 [facility] Comment on above: Performed By: #### E LEC ####[facility] [place] [facility] ([id number])[address], [place] [address] Sodium [Moles/Vol] 144 mmol/L Normal 134-146 [facility] Comment on above: Performed By: #### E LEC ####[facility] [place] [facility] ([id number])[address], [place] [address] Glucose Glucometer (BldC) [M ass/Vol]on 08-23-2024 Glucose [Mass/Vol] 152 mg/dL High 65-99 [facility] MAGNESIUMon 08-23-2024 Magnesium [Mass/Vol] 2.1 mg/dL Normal 1.8-2.6 [facility] Comment on above: Performed By: #### B DIANE, 42632-1, 2777-1 ####[facility] [place] [facility] ([id number])[address], [place] [address] PHOSPHORUSon 08-23-2024 Phosphate [Mass/Vol] 7.1 mg/dL High 2.4-4.9 [facility] Comment on above: Performed By: #### B DIANE, , 2777- ####[facility] [place] [facility] ([id number])[address], [place] [address] POTASSIUMon 08-23-2024 Potassium [Moles/Vol] 4.0 mmol/L Normal 3.5-5.0 [facility] Comment on above: Performed By: #### 2 823-3 ####[facility] [place] [facility] ([id number])[address] [facility] [address] [place] [address], [place] [address] XR CHEST 1 VWon 08-23-2024 XR CHEST 1 VW Normal [facility] XR CHEST 1 VW Normal [facility] ARTERIAL BLOOD GASon 024 NANCY'S TEST Normal [facility] Comment on above: Performed By: #### A BG ####[facility] ([id number])[address] [place] [address] BASE,DEFICIT 3.0 MMOL/L High 0.0-2.0 [facility] Comment on above: Performed By: #### A BG ####[facility] ([id number])[address] [place] [address] Body temperature 98.6 [degF] Normal 37.0 [facility] Comment on above: Performed By: #### A BG ####[facility] ([id number])[address] [place] [address] HCO3 (Bld) [Moles/Vol] 23.8 mmol/L Normal 22-26 [facility] Comment on above: Performed By: #### A BG ####[facility] ([id number])[address] [place] [address] INSP. O2 CONC. 40 % Normal [facility] Comment on above: Performed By: #### A BG ####[facility] ([id number])[address] [place] [address] Oxygen (Bld) [Partial pressure] 122 mm[Hg] High 80-100 [facility] Comment on above: Performed By: #### A BG ####[facility] ([id number])[address] [place] [address] Oxygen saturation in Blood 98.0 % Normal >90 [facility] Comment on above: Performed By: #### A BG ####[facility] ([id number])[address] [place] [address] OXYGEN SOURCE NPPV [facility] Comment on above: Performed By: #### A BG ####[facility] ([id number])[address] [place] [address] PCO2 49.2 MMHG High 35-45 [facility] Comment on above: Performed By: #### A BG ####[facility] ([id number])[address] [place] [address] pH (Bld) 7.293 [pH] Low 7.350-7.450 [facility] Comment on above: Performed By: #### A BG ####[facility] ([id number])[address] [place] [address] SAMPLE SITE [facility] Comment on above: Performed By: #### A BG ####[facility] ([id number])[address] [place] [address] SAMPLE TYPE ARTERIAL Normal [facility] Comment on above: Performed By: #### A BG ####[facility] ([id number])[address] [place] [address] BASIC METABOLIC PANLon 08-22 Anion gap [Moles/Vol] 14 mmol/L Normal 5-15 [facility] Comment on above: Performed By: #### C BCA, BMP, 97923-7, 2777-1 ####[facility] [place] [facility] ([id number])[address] [facility] [address] [address] Calcium [Mass/Vol] 8.7 mg/dL Normal 8.5-10.5 [facility] Comment on above: Performed By: #### C BCA, BMP, , 7-1 ####[facility] ([id number])[address] [address] Chloride [Moles/Vol] 106 mmol/L Normal 98-109 [facility] Comment on above: Performed By: #### C ADRIANA PAYNE, , 2776-11 ####[facility] [facility] ([id number])[address], [address], [place] [address] CO2 [Moles/Vol] 23 mmol/L Normal 22-32 [facility] Comment on above: Performed By: #### C ADRIANA PAYNE, , 2776-11 ####[facility] ([id number])[address], [address] [place] [address] Creatinine [Mass/Vol] 3.84 mg/dL High 0.60-1.30 [facility] Comment on above: Result Comment: METH OD TRACEABLE TO IDMS STANDARD Performed By: #### C ADRIANA PAYNE, , 2776-11 ####[facility] ([id number])[address] [address] [place] [address] GFR/1.73 sq M.predicted among non-blacks MDRD (S/P/Bld) [Vol rate/Area] 17 mL/min/{1.73_m2} Low >59 [facility] Comment on above: Result Comment: Repo rted eGFR is based on theCKD-EPI 2020 equation that doesnot use a race coefficient. Performed By: #### C ADRIANA PAYNE, , 2776-11 ####[facility] ([id number])[address], [address] [address] Glucose [Mass/Vol] 87 mg/dL Normal 65-99 [facility] Comment on above: Performed By: #### C ADRIANA PAYNE, , 2776-11 ####[facility] ([id number])[address], [address] [facility] [address] Potassium [Moles/Vol] 4.4 mmol/L Normal 3.5-5.0 [facility] Comment on above: Performed By: #### C ADRIANA PAYNE, , 2776-11 ####[facility] ([id number])[address] [address] [place] [address] Sodium [Moles/Vol] 143 mmol/L Normal 134-146 [facility] Comment on above: Performed By: #### C KERRY, BMP, , 2776-11 ####[facility] ([id number])[address] [address] Urea nitrogen [Mass/Vol] 72 mg/dL High 5-27 [facility] Comment on above: Performed By: #### C ADRIANA PAYNE, , 2776-11 ####[facility] ([id number])[address] [address] CBC AND AUTO DIFFon 10-20-20 24 Band form neutrophils/100 WBC (Bld) 1.0 % Normal [facility] Comment on above: Performed By: #### Belle PAYNE BMP, , 2776-11 ####[facility] ([id number])[address] [address] Erythrocyte distribution width (RBC) [Ratio] 17.6 % High 11.5-15.0 [facility] Comment on above: Performed By: #### C KERRY, BMP, , 2776-11 ####[facility] ([id number])[address] [address] Hematocrit (Bld) [Volume fraction] 33.2 % Low 39-49 [facility] Comment on above: Performed By: #### C KERRY, BMP, , 2776-11 ####[facility] ([id number])[address] [place] [address] Hemoglobin (Bld) [Mass/Vol] 10.7 g/dL Low 13.0-17.0 [facility] Comment on above: Performed By: #### C KERRY BMP, , 2776-11 ####[facility] ([id number])[address] [address] Lymphocytes (Bld) [#/Vol] 0.9 10*3/uL Low 1.0-3.5 [facility] Comment on above: Performed By: #### C KERRY, BMP, , 2776-11 ####[facility] ([id number])[address] [address] Lymphocytes/100 WBC (Bld) 3.8 % Normal [facility] Comment on above: Performed By: #### Belle PAYNE, BMP, , 2776-11 ####[facility] ([id number])[address] [address] MCH (RBC) [Entitic mass] 27.6 pg Normal 27-34 [facility] Comment on above: Performed By: #### C KERRY, BMP, , 2776-11 ####[facility] ([id number])[address] [address] [place] [address] MCHC (RBC) [Mass/Vol] 32.2 g/dL Normal 32-36 [facility] Comment on above: Performed By: #### C KERRY, BMP, , 2776-11 ####[facility] ([id number])[address] [address] MCV (RBC) [Entitic vol] 86 fL Normal 80-100 [facility] Comment on above: Performed By: #### C KERRY, BMP, , 2776-11 ####[facility] ([id number])[address], [address], [place] [address] Monocytes (Bld) [#/Vol] 0.4 10*3/uL Normal 0-0.9 [facility] Comment on above: Performed By: #### C BCA, BMP, , 2776-11 ####[facility] ([id number])[address], [address] [address] Monocytes/100 WBC (Bld) 1.9 % Normal [facility] Comment on above: Performed By: #### C BCA, BMP, , 2776-11 ####[facility] ([id number])[address] [address] MYELOCYTE 1.0 % Normal [facility] Comment on above: Performed By: #### Belle BCA, BMP, , 2776-11 ####[facility] ([id number])[address] [address] Neutrophils (Bld) [#/Vol] 22.0 10*3/uL High 1.5-6.6 [facility] Comment on above: Performed By: #### Belle BCA, BMP, , 2776-11 ####[facility] ([id number])[address], [address], [place] [address] Platelet mean volume (Bld) [Entitic vol] 8.0 fL Normal 7-12 [facility] Comment on above: Performed By: #### C BCA, BMP, , 2776-11 ####[facility] ([id number])[address], [address] [place] [address] Platelets (Bld) [#/Vol] 161 10*3/uL Normal 150-450 [facility] Comment on above: Performed By: #### C BCA, BMP, , 2776-11 ####[facility] ([id number])[address], [address], [place] [address] RBC COUNT 3.88 X10E12/L Low 4.10-5.70 [facility] Comment on above: Performed By: #### C BCA, BMP, , 2776-11 ####[facility] ([id number])[address], [address], [place] [address] RBC morphology finding Nom (Bld) NORMAL Normal [facility] Comment on above: Performed By: #### C BCA, BMP, , 2776-11 ####[facility] ([id number])[address], [address], [place] [address] SEG NEUTROPHIL 92.3 % Normal [facility] Comment on above: Performed By: #### C KERRY, BMP, , 2776-11 ####[facility] ([id number])[address] [address] WBC (Bld) [#/Vol] 23.6 10*3/uL High 4.0-11.0 [facility] Comment on above: Performed By: #### C BCA, BMP, , 2776-11 ####[facility] ([id number])[address], [address], [place] [address] ELECTROLYTESon 08-22-2024 Anion gap [Moles/Vol] 11 mmol/L Normal 5-15 [facility] Comment on above: Performed By: #### E LEC ####[facility] ([id number])[address] [address] Chloride [Moles/Vol] 107 mmol/L Normal 98-109 [facility] Comment on above: Performed By: #### E LEC ####[facility] ([id number])[address], [address], [place] [address] CO2 [Moles/Vol] 25 mmol/L Normal 22-32 [facility] Comment on above: Performed By: #### E LEC ####[facility] ([id number])[address], [place] [address] Potassium [Moles/Vol] 4.1 mmol/L Normal 3.5-5.0 [facility] Comment on above: Performed By: #### E LEC ####[facility] ([id number])[address], [place] [address] Sodium [Moles/Vol] 143 mmol/L Normal 134-146 [facility] Comment on above: Performed By: #### E LEC ####[facility] ([id number])[address], [place] [address] Anion gap [Moles/Vol] 14 mmol/L Normal 5-15 [facility] Comment on above: Performed By: #### E LEC ####[facility] ([id number])[address], [place] [address] Chloride [Moles/Vol] 106 mmol/L Normal 98-109 [facility] Comment on above: Performed By: #### E LEC ####[facility] ([id number])[address], [place] [address] CO2 [Moles/Vol] 23 mmol/L Normal 22-32 [facility] Comment on above: Performed By: #### E LEC ####[facility] ([id number])[address], [place] [address] Potassium [Moles/Vol] 4.4 mmol/L Normal 3.5-5.0 [facility] Comment on above: Performed By: #### E LEC ####[facility] ([id number])[address], [place] [address] Sodium [Moles/Vol] 143 mmol/L Normal 134-146 [facility] Comment on above: Performed By: #### E LEC ####[facility] ([id number])[address], [place] [address] Anion gap [Moles/Vol] 15 mmol/L Normal 5-15 [facility] Comment on above: Performed By: #### E LEC, LIVR ####[facility] ([id number])[address], [address], [place] [address] Chloride [Moles/Vol] 110 mmol/L High 98-109 [facility] Comment on above: Performed By: #### E LEC, LIVR ####[facility] ([id number])[address], [place] [address] CO2 [Moles/Vol] 21 mmol/L Low 22-32 [facility] Comment on above: Performed By: #### E LEC, LIVR ####[facility] ([id number])[address], [place] [address] Potassium [Moles/Vol] 4.4 mmol/L Normal 3.5-5.0 [facility] Comment on above: Performed By: #### E LEC, LIVR ####[facility] ([id number])[address], [address], [place] [address] Sodium [Moles/Vol] 146 mmol/L Normal 134-146 [facility] Comment on above: Performed By: #### E LEC, LIVR ####[facility] ([id number])[address], [place] [address] LIVER PANELon 08-22-2024 Albumin [Mass/Vol] 2.6 g/dL Low 3.2-5.3 [facility] Comment on above: Performed By: #### E LEC, LIVR ####[facility] ([id number])[address], [place] [address] ALP [Catalytic activity/Vol] 77 U/L Normal 39-130 [facility] Comment on above: Performed By: #### E LEC, LIVR ####[facility] ([id number])[address], [place] [address] ALT [Catalytic activity/Vol] 6 U/L Normal 0-40 [facility] Comment on above: Performed By: #### E LEC, LIVR ####[facility] ([id number])[address], [place] [address] AST [Catalytic activity/Vol] 14 U/L Normal 0-41 [facility] Comment on above: Performed By: #### E LEC, LIVR ####[facility] ([id number])[address], [address], [place] [address] Bilirubin [Mass/Vol] 0.5 mg/dL Normal 0.3-1.2 [facility] Comment on above: Performed By: #### E LEC, LIVR ####[facility] ([id number])[address], [address], [place] [address] Bilirubin.direct [Mass/Vol] 0.1 mg/dL Normal 0.0-0.4 [facility] Comment on above: Performed By: #### E LEC, LIVR ####[facility] ([id number])[address], [address], [place] [address] Protein [Mass/Vol] 5.3 g/dL Low 6.0-8.0 [facility] Comment on above: Performed By: #### E LEC, LIVR ####[facility] ([id number])[address], [place] [address] Lactate (P oc) [Moles/Vol]o n 08-22-2024 Lactate [Moles/Vol] 2.0 mmol/L Normal 0.4-2.0 [facility] Comment on above: Performed By: #### 3 2132-11 ####[facility] ([id number])[address], [address] [place] [address] MAGNESIUMon 08-22-2024 Magnesium [Mass/Vol] 2.2 mg/dL Normal 1.8-2.6 [facility] Comment on above: Performed By: #### C ADRIANA PAYNE, , 2776-11 ####[facility] ([id number])[address], [address] [place] [address] Metanephrine.free and Normet anephrine.free panel [Moles/Vol]on 08-22-2024 Metanephrine, Free 0.38 nmol/L Normal <0.50 [facility] Comment on above: Result Comment: NOTE ADDITIONAL INFORMATION This test was developed and its performance characteristicsdetermined by [facility] in a manner consistent with CLIArequirements. This test has not been cleared or approved bythe U.S. Food and Drug Administration.Test Performed by:[facility] [place] [id number] Director: Sylvia Gonzalez Ph.D.; CLIA# [id number] Normetanephrine, Free 1.4 nmol/L High <0.90 [facility] PHOSPHORUSon 08-22-2024 Phosphate [Mass/Vol] 6.5 mg/dL High 2.4-4.9 [facility] Comment on above: Performed By: #### C ADRIANA PAYNE, , 2776-11 ####[facility] ([id number])[address], [address] [place] [address] XR CHEST 1 VWon 08-22-2024 XR CHEST 1 VW Normal [facility] ARTERIAL BLOOD GASon 10-19-2 024 NANCY'S TEST Normal [facility] Comment on above: Performed By: #### A BG ####[facility] ([id number])[address] [place] [address] BASE,DEFICIT 3.0 MMOL/L High 0.0-2.0 [facility] Comment on above: Performed By: #### A BG ####[facility] ([id number])[address] [place] [address] Body temperature 98.6 [degF] Normal 37.0 [facility] Comment on above: Performed By: #### A BG ####[facility] ([id number])[address] [place] [address] HCO3 (Bld) [Moles/Vol] 24.7 mmol/L Normal 22-26 [facility] Comment on above: Performed By: #### A BG ####[facility] ([id number])[address] [place] [address] INSP. O2 CONC. 40 % Normal [facility] Comment on above: Performed By: #### A BG ####[facility] ([id number])[address] [place] [address] Oxygen (Bld) [Partial pressure] 97 mm[Hg] Normal 80-100 [facility] Comment on above: Performed By: #### A BG ####[facility] ([id number])[address] [place] [address] Oxygen saturation in Blood 96.0 % Normal >90 [facility] Comment on above: Performed By: #### A BG ####[facility] ([id number])[address] [place] [address] OXYGEN SOURCE NPPV Normal [facility] Comment on above: Performed By: #### A BG ####[facility] ([id number])[address] [place] [address] PCO2 55.0 MMHG High 35-45 [facility] Comment on above: Performed By: #### A BG ####[facility] ([id number])[address] [place] [address] pH (Bld) 7.260 [pH] Low 7.350-7.450 [facility] Comment on above: Performed By: #### A BG ####[facility] ([address] [place] [address])[address]141 [place] [address] SAMPLE SITE Andreea Normal [facility] Comment on above: Performed By: #### A BG ####[facility] ([address] [place] [address])[address]141 [place] [address] SAMPLE TYPE ARTERIAL Normal [facility] Comment on above: Performed By: #### A BG ####[facility] ([address] [place] [address])[address]141 [place] [address] NANCY'S TEST Normal [facility] Comment on above: Performed By: #### A BG ####[facility] ([address] [place] [address])[address]141 [place] [address] BASE,DEFICIT 7.0 MMOL/L High 0.0-2.0 [facility] Comment on above: Performed By: #### A BG ####[facility] ([address] [place] [address])[address]141 [place] [address] Body temperature 98.6 [degF] Normal 37.0 [facility] Comment on above: Performed By: #### A BG ####[facility] ([id number])[address] [place] [address] HCO3 (Bld) [Moles/Vol] 21.2 mmol/L Low 22-26 [facility] Comment on above: Performed By: #### A BG ####[facility] ([id number])[address] [place] [address] INSP. O2 CONC. 40 % Normal [facility] Comment on above: Performed By: #### A BG ####[facility] ([id number])[address] [place] [address] Oxygen (Bld) [Partial pressure] 90 mm[Hg] Normal 80-100 [facility] Comment on above: Performed By: #### A BG ####[facility] ([id number])[address] [place] [address] Oxygen saturation in Blood 94.0 % Normal >90 [facility] Comment on above: Performed By: #### A BG ####[facility] ([id number])[address] [place] [address] OXYGEN SOURCE NPPV Normal [facility] Comment on above: Performed By: #### A BG ####[facility] ([id number])[address] [place] [address] PCO2 58.5 MMHG High 35-45 [facility] Comment on above: Performed By: #### A BG ####[facility] ([id number])[address] [place] [address] pH (Bld) 7.166 [pH] Critically low 7.350-7.450 [facility] Comment on above: Performed By: #### A BG ####[facility] ([id number])[address] [place] [address] SAMPLE SITE Anderea Normal [facility] Comment on above: Performed By: #### A BG ####[facility] ([id number])[address] [place] [address] SAMPLE TYPE ARTERIAL Normal [facility] Comment on above: Performed By: #### A BG ####[facility] ([id number])[address] [place] [address] ARTERIAL CODEon 08-21-2024 NANCY'S TEST Normal [facility] Comment on above: Performed By: #### I CODE ####[facility] ([id number])[address] [place] [address] BASE,DEFICIT 6.0 MMOL/L High 0.0-2.0 [facility] Comment on above: Performed By: #### I CODE ####[facility] ([id number])[address] [place] [address] Body temperature 98.6 [degF] Normal 37.0 [facility] Comment on above: Performed By: #### I CODE ####[facility] ([id number])[address] [place] [address] Glucose [Mass/Vol] 113 mg/dL High 65-99 [facility] Comment on above: Performed By: #### I CODE ####[facility] ([id number])[address] [place] [address] HCO3 (Bld) [Moles/Vol] 19.4 mmol/L Low 22-26 [facility] Comment on above: Performed By: #### I CODE ####[facility] ([id number])[address] [place] [address] Hematocrit (Bld) [Volume fraction] 33 % Low 39-49 [facility] Comment on above: Performed By: #### I CODE ####[facility] ([id number])[address] [place] [address] INSP. O2 CONC. 40 % Normal [facility] Comment on above: Performed By: #### I CODE ####[facility] ([id number])[address] [place] [address] Oxygen (Bld) [Partial pressure] 100 mm[Hg] Normal 80-100 [facility] Comment on above: Performed By: #### I CODE ####[facility] ([id number])[address] [facility] [place] [address] Oxygen saturation in Blood 97.0 % Normal >90 [facility] Comment on above: Performed By: #### I CODE ####[facility] ([id number])[address] [place] [address] OXYGEN SOURCE NPPV Normal [facility] Comment on above: Performed By: #### I CODE ####[facility] ([id number])[address] [facility] [place] [address] PCO2 35.7 MMHG Normal 35-45 [facility] Comment on above: Performed By: #### I CODE ####[facility] ([id number])[address] [facility] [place] [place] [address] pH (Bld) 7.344 [pH] Low 7.350-7.450 [facility] Comment on above: Performed By: #### I CODE ####[facility] ([id number])[address] [place] [address] PORTABLE ICA 4.7 mg/dL Normal 4.5-5.3 [facility] Comment on above: Performed By: #### I CODE ####[facility] ([id number])[address] [place] [address] Potassium [Moles/Vol] 4.5 mmol/L Normal 3.5-5.0 [facility] Comment on above: Performed By: #### I CODE ####[facility] ([id number])[address] [facility] [place] [address] SAMPLE SITE Andreea Normal [facility] Comment on above: Performed By: #### I CODE ####[facility] ([id number])[address] [place] [address] SAMPLE TYPE ARTERIAL Normal [facility] Comment on above: Performed By: #### I CODE ####[facility] ([id number])[address] [place] [place] [address] Sodium [Moles/Vol] 140 mmol/L Normal 134-146 [facility] Comment on above: Performed By: #### I CODE ####[facility] ([id number])[address] [place] [place] [address] BASIC METABOLIC PANLon 08-21 Anion gap [Moles/Vol] 9 mmol/L Normal 5-15 [facility] Comment on above: Performed By: #### B MP ####[facility] [facility] ([id number])[address] [address] [place] [address] Calcium [Mass/Vol] 7.9 mg/dL Low 8.5-10.5 [facility] Comment on above: Performed By: #### B MP ####[facility] ([id number])[address] [address] [place] [place] [address] Chloride [Moles/Vol] 107 mmol/L Normal 98-109 [facility] Comment on above: Performed By: #### B MP ####[facility] ([id number])[address] [address] [place] [place] [address] CO2 [Moles/Vol] 25 mmol/L Normal 22-32 [facility] Comment on above: Performed By: #### B MP ####[facility] ([id number])[address] [address] [place] [address] Creatinine [Mass/Vol] 3.77 mg/dL High 0.60-1.30 [facility] Comment on above: Result Comment: METH OD TRACEABLE TO IDMS STANDARD Performed By: #### B MP ####[facility] ([id number])[address] [address] [place] [address] GFR/1.73 sq M.predicted among non-blacks MDRD (S/P/Bld) [Vol rate/Area] 17 mL/min/{1.73_m2} Low >59 [facility] Comment on above: Result Comment: Repo rted eGFR is based on theCKD-EPI 2020 equation that doesnot use a race coefficient. Performed By: #### B MP ####[facility] ([id number])[address], [place] [address] Glucose [Mass/Vol] 121 mg/dL High 65-99 [facility] Comment on above: Performed By: #### B MP ####[facility] ([id number])[address] [address], [place] [address] Potassium [Moles/Vol] 3.8 mmol/L Normal 3.5-5.0 [facility] Comment on above: Performed By: #### B MP ####[facility] ([id number])[address] [address], [place] [address] Sodium [Moles/Vol] 141 mmol/L Normal 134-146 [facility] Comment on above: Performed By: #### B MP ####[facility] ([id number])[address] [facility] [address], [place] [address] Urea nitrogen [Mass/Vol] 71 mg/dL High 5-27 [facility] Comment on above: Performed By: #### B MP ####[facility] [place] [facility] ([id number])[address] [address], [place] [address] Anion gap [Moles/Vol] 9 mmol/L Normal 5-15 [facility] Comment on above: Performed By: #### C BCA, BMP, 22989-3, 2777-1, C34, 61380-3, SPE, 5193-8, 5196-1, 37769-5, 03445-3, 5130-0, 88655-6, 69140-2, 6969-0, 6968-2 ####[facility] [place] [facility] ([id number])[address] [address], [place] [address] Calcium [Mass/Vol] 7.9 mg/dL Low 8.5-10.5 [facility] Comment on above: Performed By: #### C BCA, BMP, 96664-7, 2777-1, C34, 76390-2, SPE, 5193-8, 5196-1, 21552-9, 94419-4, 5130-0, 21082-0, 45723-2, 6969-0, 6968-2 ####[facility] [place] [facility] ([id number])[address], [address] [place] [address] Chloride [Moles/Vol] 109 mmol/L Normal 98-109 [facility] Comment on above: Performed By: #### C BCA, BMP, 27918-1, 2777-1, C34, 67561-4, SPE, 5193-8, 5196-1, 16139-5, 32007-7, 5130-0, 65020-3, 62321-3, 6969-0, 6968-2 ####[facility] [place] [facility] ([id number])[address], [address] [place] [address] CO2 [Moles/Vol] 21 mmol/L Low 22-32 [facility] Comment on above: Performed By: #### C BCA, BMP, 47566-2, 2777-1, C34, 59849-7, SPE, 5193-8, 5196-1, 60342-7, 81379-9, 5130-0, 20936-5, 29404-4, 6969-0, 6968-2 ####[facility] [place] [facility] ([id number])[address], [address] [place] [address] Creatinine [Mass/Vol] 3.85 mg/dL High 0.60-1.30 [facility] Comment on above: Result Comment: METH OD TRACEABLE TO IDMS STANDARD Performed By: #### C BCA, BMP, 74415-8, 2777-1, C34, 25567-3, SPE, 5193-8, 5196-1, 11574-9, 24883-8, 5130-0, 50767-2, 82587-2, 6969-0, 6968-2 ####[facility] [place] [facility] ([id number])[address] [address] GFR/1.73 sq M.predicted among non-blacks MDRD (S/P/Bld) [Vol rate/Area] 17 mL/min/{1.73_m2} Low >59 [facility] Comment on above: Result Comment: Repo rted eGFR is based on theCKD-EPI 2020 equation that doesnot use a race coefficient. Performed By: #### C BCA, BMP, 00233-8, 2777-1, C34, 18025-8, SPE, 5193-8, 5196-1, 32038-7, 53410-8, 5130-0, 07184-4, 68599-0, 6969-0, 6968-2 ####[facility] [place] [facility] ([id number])[address], [address] [place] [address] Glucose [Mass/Vol] 146 mg/dL High 65-99 [facility] Comment on above: Performed By: #### C BCA, BMP, 23572-8, 2777-1, C34, 86865-1, SPE, 5193-8, 5196-1, 72982-6, 39738-9, 5130-0, 11329-0, 05732-2, 6969-0, 6968-2 ####[facility] [place] [facility] ([id number])[address], [address] [address] Potassium [Moles/Vol] 4.0 mmol/L Normal 3.5-5.0 [facility] Comment on above: Performed By: #### C BCA, BMP, 69515-4, 2777-1, C34, 31064-5, SPE, 5193-8, 5196-1, 50416-2, 57096-2, 5130-0, 13144-1, 79006-8, 6969-0, 6968-2 ####[facility] [place] [facility] ([id number])[address], [address] [place] [address] Sodium [Moles/Vol] 139 mmol/L Normal 134-146 [facility] Comment on above: Performed By: #### C BCA, BMP, 69802-9, 2777-1, C34, 46051-7, SPE, 5193-8, 5196-1, 54704-6, 27836-6, 5130-0, 92701-6, 35923-4, 6969-0, 6968-2 ####[facility] [place] [facility] ([id number])[address], [address] [place] [address] Urea nitrogen [Mass/Vol] 73 mg/dL High 5-27 [facility] Comment on above: Performed By: #### C BCA, BMP, 86660-4, 2777-1, C34, 06535-2, SPE, 5193-8, 5196-1, 31682-6, 12792-6, 5130-0, 63525-0, 51448-3, 6969-0, 6968-2 ####[facility] [place] [facility] ([id number])[address], [address] [place] [address] CBC AND AUTO DIFFon 10-19-20 24 Band form neutrophils/100 WBC (Bld) 2.0 % Normal [facility] Comment on above: Performed By: #### C BCA, CMP, 05637-2, 80918-4, THYR, 2143-6, 3051-0, 37150-1 ####[facility] [place] [facility] ([id number])[address], [address] [place] [address] Erythrocyte distribution width (RBC) [Ratio] 17.6 % High 11.5-15.0 [facility] Comment on above: Performed By: #### C BCA, CMP, 67793-4, 80126-1, THYR, 2143-6, 3051-0, 80447-4 ####[facility] [place] [facility] ([id number])[address] [address] [place] [address] Hematocrit (Bld) [Volume fraction] 34.3 % Low 39-49 [facility] Comment on above: Performed By: #### C BCA, CMP, 13012-4, 50404-9, THYR, 2143-6, 3051-0, 01326-0 ####[facility] [place] [facility] ([id number])[address] [address] [place] [address] Hemoglobin (Bld) [Mass/Vol] 11.1 g/dL Low 13.0-17.0 [facility] Comment on above: Performed By: #### C BCA, CMP, 49157-0, 55170-9, THYR, 2143-6, 3051-0, 83052-1 ####[facility] [place] [facility] ([id number])[address] [address] [place] [address]34 Lymphocytes (Bld) [#/Vol] 1.1 10*3/uL Normal 1.0-3.5 [facility] Comment on above: Performed By: #### C BCA, CMP, 97788-6, 95852-4, THYR, 2143-6, 3051-0, 33669-0 ####[facility] [place] [facility] ([id number])[address] [address] Lymphocytes/100 WBC (Bld) 5.0 % Normal [facility] Comment on above: Performed By: #### C BCA, CMP, 52843-8, 56875-7, THYR, 2143-6, 3051-0, 86864-7 ####[facility] [place] [facility] ([id number])[address] [address] [place] [address] MCH (RBC) [Entitic mass] 27.9 pg Normal 27-34 [facility] Comment on above: Performed By: #### C BCA, CMP, 21183-7, 23582-1, THYR, 2143-6, 3051-0, 65521-4 ####[facility] [place] [facility] ([id number])[address], [address] [address] MCHC (RBC) [Mass/Vol] 32.3 g/dL Normal 32-36 [facility] Comment on above: Performed By: #### C BCA, CMP, 03761-4, 40941-3, THYR, 2143-6, 3051-0, 76388-5 ####[facility] [place] [facility] ([id number])[address], [address] [place] [address]17 MCV (RBC) [Entitic vol] 86 fL Normal 80-100 [facility] Comment on above: Performed By: #### C BCA, CMP, 85963-6, 95943-1, THYR, 2143-6, 3051-0, 40496-2 ####[facility] [place] [facility] ([id number])[address] [address] [place] [address] Monocytes (Bld) [#/Vol] 0.7 10*3/uL Normal 0-0.9 [facility] Comment on above: Performed By: #### C BCA, CMP, 39492-3, 91853-5, THYR, 2143-6, 3051-0, 89676-9 ####[facility] [place] [facility] ([id number])[address] [address] [place] [address] 19693 Monocytes/100 WBC (Bld) 3.0 % Normal [facility] Comment on above: Performed By: #### C BCA, CMP, 13321-7, 99502-7, THYR, 2143-6, 3051-0, 05990-8 ####[facility] [place] [facility] ([id number])[address] [address] [place] [address] MYELOCYTE 1.0 % Normal [facility] Comment on above: Performed By: #### C BCA, CMP, 56489-7, 21929-5, THYR, 2143-6, 3051-0, 96486-9 ####[facility] [place] [facility] ([id number])[address], [address] [address] Neutrophils (Bld) [#/Vol] 19.8 10*3/uL High 1.5-6.6 [facility] Comment on above: Performed By: #### C BCA, CMP, 98341-3, 39567-8, THYR, 2143-6, 3051-0, 90629-4 ####[facility] [place] [facility] ([id number])[address], [address] [place] [address]29 Platelet mean volume (Bld) [Entitic vol] 8.4 fL Normal 7-12 [facility] Comment on above: Performed By: #### C BCA, CMP, 86565-6, 04783-4, THYR, 2143-6, 3051-0, 20580-5 ####[facility] [place] [facility] ([id number])[address], [address] [place] [address]15 Platelets (Bld) [#/Vol] 154 10*3/uL Normal 150-450 [facility] Comment on above: Performed By: #### C BCA, CMP, 94900-4, 22471-2, THYR, 2143-6, 3051-0, 81045-0 ####[facility] [place] [facility] ([id number])[address], [address] [place] [address] 16296 RBC COUNT 3.98 X10E12/L Low 4.10-5.70 [facility] Comment on above: Performed By: #### C BCA, CMP, 56114-3, 07142-1, THYR, 2143-6, 3051-0, 79989-9 ####[facility] [place] [facility] ([id number])[address] [address] RBC morphology finding Nom (Bld) NORMAL Normal [facility] Comment on above: Performed By: #### C BCA, CMP, 39653-0, 25086-6, THYR, 2143-6, 3051-0, 34353-0 ####[facility] [place] [facility] ([id number])[address] [place] [address] SEG NEUTROPHIL 89.0 % Normal [facility] Comment on above: Performed By: #### C BCA, CMP, 60613-3, 22697-7, THYR, 2143-6, 3051-0, 97289-2 ####[facility] [place] [facility] ([id number])[address] [address] WBC (Bld) [#/Vol] 21.8 10*3/uL High 4.0-11.0 [facility] Comment on above: Performed By: #### C BCA, CMP, 42665-5, 66010-6, THYR, 2143-6, 3051-0, 92309-3 ####[facility] [place] [facility] ([id number])[address] [place] [address] ABSOLUTE BASOPHIL 0.0 X10E9/L Normal 0.0-0.2 [facility] Comment on above: Performed By: #### C BCA, BMP, 31475-0, 2777-1, C34, 21606-7, SPE, 5193-8, 5196-1, 72312-8, 14796-1, 5130-0, 24544-2, 60391-9, 6969-0, 6968-2 ####[facility] [place] [facility] ([id number])[address] [place] [place] [address] ABSOLUTE NEUTROPHIL 11.7 X10E9/L High 1.5-6.6 [facility] Comment on above: Performed By: #### C BCA, BMP, 38650-1, 2777-1, C34, 23914-3, SPE, 5193-8, 5196-1, 31300-1, 18879-2, 5130-0, 35262-5, 41849-1, 6969-0, 6968-2 ####[facility] [place] [facility] ([id number])[address] [address] Basophils/100 WBC (Bld) 0.1 % Normal [facility] Comment on above: Performed By: #### C BCA, BMP, 02346-0, 2777-1, C34, 12768-7, SPE, 5193-8, 5196-1, 82706-1, 69540-8, 5130-0, 84779-6, 46406-5, 6969-0, 6968-2 ####[facility] [place] [facility] ([id number])[address], [address] [address] Eosinophils (Bld) [#/Vol] 0.1 10*3/uL Normal 0.0-0.4 [facility] Comment on above: Performed By: #### C BCA, BMP, 85842-2, 2777-1, C34, 65629-6, SPE, 5193-8, 5196-1, 63670-6, 41040-3, 5130-0, 83807-2, 09758-1, 6969-0, 6968-2 ####[facility] [place] [facility] ([id number])[address], [address] [address] Eosinophils/100 WBC (Bld) 0.4 % Normal [facility] Comment on above: Performed By: #### C BCA, BMP, 87371-6, 2777-1, C34, 73952-6, SPE, 5193-8, 5196-1, 02893-0, 75111-2, 5130-0, 49847-0, 24218-0, 6969-0, 6968-2 ####[facility] [place] [facility] ([id number])[address], [address] [address] Erythrocyte distribution width (RBC) [Ratio] 17.4 % High 11.5-15.0 [facility] Comment on above: Performed By: #### C BCA, BMP, 87914-4, 2777-1, C34, 67758-2, SPE, 5193-8, 5196-1, 66240-1, 81493-1, 5130-0, 46627-2, 84335-7, 6969-0, 6968-2 ####[facility] [place] [facility] ([id number])[address], [address] [place] [address] Hematocrit (Bld) [Volume fraction] 27.0 % Low 39-49 [facility] Comment on above: Performed By: #### C BCA, BMP, 30965-0, 2777-1, C34, 97315-1, SPE, 5193-8, 5196-1, 52556-4, 30777-7, 5130-0, 63547-0, 30059-2, 6969-0, 6968-2 ####[facility] [place] [facility] ([id number])[address], [address] [place] [address] Hemoglobin (Bld) [Mass/Vol] 8.6 g/dL Low 13.0-17.0 [facility] Comment on above: Performed By: #### C BCA, BMP, 88958-6, 2777-1, C34, 87591-4, SPE, 5193-8, 5196-1, 49346-2, 11714-7, 5130-0, 58349-9, 48486-2, 6969-0, 6968-2 ####[facility] [place] [facility] ([id number])[address], [address] [place] [address] Lymphocytes (Bld) [#/Vol] 0.5 10*3/uL Low 1.0-3.5 [facility] Comment on above: Performed By: #### C BCA, BMP, 66903-0, 2777-1, C34, 12186-2, SPE, 5193-8, 5196-1, 12595-0, 52793-2, 5130-0, 60330-4, 62310-3, 6969-0, 6968-2 ####[facility] [place] [facility] ([id number])[address], [address] [place] [address] 16621 Lymphocytes/100 WBC (Bld) 3.6 % Normal [facility] Comment on above: Performed By: #### C BCA, BMP, 70313-0, 2777-1, C34, 24063-5, SPE, 5193-8, 5196-1, 60799-3, 20177-6, 5130-0, 49115-2, 35437-3, 6969-0, 6968-2 ####[facility] [place] [facility] ([id number])[address], [address] [place] [address]7943 MCH (RBC) [Entitic mass] 27.7 pg Normal 27-34 [facility] Comment on above: Performed By: #### C BCA, BMP, 11237-4, 2777-1, C34, 14234-0, SPE, 5193-8, 5196-1, 38466-4, 87079-3, 5130-0, 71461-8, 50060-9, 6969-0, 6968-2 ####[facility] [place] [facility] ([id number])[address], [address] [place] [address] 46954 MCHC (RBC) [Mass/Vol] 31.8 g/dL Low 32-36 [facility] Comment on above: Performed By: #### C BCA, BMP, 19004-5, 2777-1, C34, 72792-4, SPE, 5193-8, 5196-1, 60314-7, 96421-8, 5130-0, 94945-5, 41846-8, 6969-0, 6968-2 ####[facility] [place] [facility] ([id number])[address], [address] [place] [address] 60419 MCV (RBC) [Entitic vol] 87 fL Normal 80-100 [facility] Comment on above: Performed By: #### C BCA, BMP, 06705-0, 2777-1, C34, 76900-0, SPE, 5193-8, 5196-1, 17972-9, 77699-2, 5130-0, 53860-5, 17622-2, 6969-0, 6968-2 ####[facility] [place] [facility] ([id number])[address] [address] Monocytes (Bld) [#/Vol] 0.8 10*3/uL Normal 0-0.9 [facility] Comment on above: Performed By: #### C BCA, BMP, 18752-7, 2777-1, C34, 65883-0, SPE, 5193-8, 5196-1, 61305-2, 89243-2, 5130-0, 45527-8, 61875-6, 6969-0, 6968-2 ####[facility] [facility] ([id number])[address], [address] [place] [address] 11026 Monocytes/100 WBC (Bld) 6.4 % Normal [facility] Comment on above: Performed By: #### C BCA, BMP, 28207-4, 2777-1, C34, 77453-0, SPE, 5193-8, 5196-1, 67267-2, 72948-8, 5130-0, 36985-6, 43873-6, 6969-0, 6968-2 ####[facility] [facility] ([id number])[address], [address] [place] [address]50 Neutrophils/100 WBC (Bld) 89.5 % Normal [facility] Comment on above: Performed By: #### C BCA, BMP, 13602-4, 2777-1, C34, 81751-8, SPE, 5193-8, 5196-1, 65144-3, 84505-2, 5130-0, 22850-4, 01576-3, 6969-0, 6968-2 ####[facility] [facility] ([id number])[address], [address] [place] [address] 21182 Platelet mean volume (Bld) [Entitic vol] 8.2 fL Normal 7-12 [facility] Comment on above: Performed By: #### C BCA, BMP, 70567-9, 2777-1, C34, 98324-8, SPE, 5193-8, 5196-1, 92267-3, 17937-6, 5130-0, 59477-8, 45255-1, 6969-0, 6968-2 ####[facility] ([id number])[address], [address] [place] [address] 47393 Platelets (Bld) [#/Vol] 95 10*3/uL Low 150-450 [facility] Comment on above: Performed By: #### C BCA, BMP, 02753-1, 2777-1, C34, 87187-3, SPE, 5193-8, 5196-1, 07990-9, 28299-9, 5130-0, 89114-0, 44303-3, 6969-0, 6968-2 ####[facility] ([id number])[address], [address] [place] [address] 38351 RBC COUNT 3.10 X10E12/L Low 4.10-5.70 [facility] Comment on above: Performed By: #### C BCA, BMP, 12255-7, 2777-1, C34, 81107-2, SPE, 5193-8, 5196-1, 70725-1, 00019-1, 5130-0, 06083-2, 55127-1, 6969-0, 6968-2 ####[facility] ([id number])[address], [address] [place] [address] 11357 WBC (Bld) [#/Vol] 13.1 10*3/uL High 4.0-11.0 [facility] Comment on above: Performed By: #### C BCA, BMP, 10075-2, 2777-1, C34, 26865-1, SPE, 5193-8, 5196-1, 83560-7, 66772-9, 5130-0, 05968-5, 92241-0, 6969-0, 6968-2 ####[facility] ([id number])[address] [place] [address]16 COMPLEMENT PROFILEon 024 COMPLEMENT C3 73 mg/dL Low 86-184 [facility] Comment on above: Performed By: #### C BCA, BMP, 05055-6, 2777-1, C34, 51207-8, SPE, 5193-8, 5196-1, 41398-8, 64850-2, 5130-0, 87393-4, 31823-2, 6969-0, 6968-2 ####[facility] ([id number])[address], [address] [place] [address] 84630 COMPLEMENT C4 26 mg/dL Normal 16-47 [facility] Comment on above: Performed By: #### C BCA, BMP, 21556-4, 2777-1, C34, 17319-1, SPE, 5193-8, 5196-1, 97373-0, 97187-9, 5130-0, 42075-5, 68747-4, 6969-0, 6968-2 ####[facility] ([id number])[address], [address] [place] [address] 08207 COMPREHENSIVE METABOLIC PANE Jonathan 08-21-2024 Albumin [Mass/Vol] 2.9 g/dL Low 3.2-5.3 [facility] Comment on above: Performed By: #### C BCA, CMP, 36885-8, 65598-3, THYR, 2143-6, 3051-0, 73088-7 ####[facility] ([id number])[address], [address] [place] [address] 34305 ALP [Catalytic activity/Vol] 83 U/L Normal 39-130 [facility] Comment on above: Performed By: #### C BCA, CMP, 17961-4, 25313-3, THYR, 2143-6, 3051-0, 95219-9 ####[facility] ([id number])[address], [place] [address] ALT [Catalytic activity/Vol] 5 U/L Normal 0-40 [facility] Comment on above: Performed By: #### C BCA, CMP, 09398-5, 42900-6, THYR, 2143-6, 3051-0, 57418-7 ####[facility] [facility] ([id number])[address], [place] [address] Anion gap [Moles/Vol] 18 mmol/L High 5-15 [facility] Comment on above: Performed By: #### C BCA, CMP, 85622-8, 04899-3, THYR, 2143-6, 3051-0, 33306-1 ####[facility] [place] [facility] ([id number])[address], [place] [address] AST [Catalytic activity/Vol] 12 U/L Normal 0-41 [facility] Comment on above: Performed By: #### C BCA, CMP, 22978-9, 48814-2, THYR, 2143-6, 3051-0, 07918-8 ####[facility] [facility] ([id number])[address], [place] [address] Bilirubin [Mass/Vol] 0.6 mg/dL Normal 0.3-1.2 [facility] Comment on above: Performed By: #### C BCA, CMP, 25599-1, 01880-7, THYR, 2143-6, 3051-0, 73646-5 ####[facility] [facility] ([id number])[address], [place] [address] Calcium [Mass/Vol] 8.9 mg/dL Normal 8.5-10.5 [facility] Comment on above: Performed By: #### C BCA, CMP, 58307-1, 23888-5, THYR, 2142-6, 3051-0, 56703-6 ####[facility] [place] [facility] ([id number])[address] [place] [address] Chloride [Moles/Vol] 106 mmol/L Normal 98-109 [facility] Comment on above: Performed By: #### C BCA, CMP, 19356-1, 01656-5, THYR, 2142-6, 3051-0, 99860-1 ####[facility] [place] [facility] ([id number])[address] [place] [place] [address] CO2 [Moles/Vol] 19 mmol/L Low 22-32 [facility] Comment on above: Performed By: #### C BCA, CMP, , 09464-0, THYR, 2142-6, 3051-0, 39166-1 ####[facility] [place] [facility] ([id number])[address] [place] [place] [address] Creatinine [Mass/Vol] 3.84 mg/dL High 0.60-1.30 [facility] Comment on above: Result Comment: METH OD TRACEABLE TO IDMS STANDARD Performed By: #### C BCA, CMP, , 63504-4, THYR, 2142-6, 3051-0, 99003-0 ####[facility] [place] [facility] ([id number])[address] [place] [address] GFR/1.73 sq M.predicted among non-blacks MDRD (S/P/Bld) [Vol rate/Area] 17 mL/min/{1.73_m2} Low >59 [facility] Comment on above: Result Comment: Repo rted eGFR is based on theCKD-EPI 2020 equation that doesnot use a race coefficient. Performed By: #### C BCA, CMP, 85099-1, 57394-8, THYR, 2143-6, 3051-0, 29113-4 ####[facility] [place] [facility] ([id number])[address], [place] [address] Glucose [Mass/Vol] 115 mg/dL High 65-99 [facility] Comment on above: Performed By: #### C BCA, CMP, 14897-4, 25706-1, THYR, 2143-6, 3051-0, 53040-8 ####[facility] [place] [facility] ([id number])[address] [place] [place] [address] Potassium [Moles/Vol] 4.6 mmol/L Normal 3.5-5.0 [facility] Comment on above: Performed By: #### C BCA, CMP, 67078-6, 73563-1, THYR, 2143-6, 3051-0, 74220-9 ####[facility] [place] [facility] ([id number])[address] [place] [place] [address] Protein [Mass/Vol] 6.0 g/dL Normal 6.0-8.0 [facility] Comment on above: Performed By: #### C BCA, CMP, 04496-9, 13928-0, THYR, 2143-6, 3051-0, 09324-8 ####[facility] [place] [facility] ([id number])[address] [place] [place] [address] Sodium [Moles/Vol] 143 mmol/L Normal 134-146 [facility] Comment on above: Performed By: #### C BCA, CMP, 62640-0, 25585-4, THYR, 2143-6, 3051-0, 18553-1 ####[facility] [place] [facility] ([id number])[address], [place] [address] Urea nitrogen [Mass/Vol] 69 mg/dL High 5-27 [facility] Comment on above: Performed By: #### C BCA, CMP, 46245-3, 09785-6, THYR, 2143-6, 3051-0, 79896-3 ####[facility] [place] [facility] ([id number])[address] [place] [address], [address] [place] [address] Calcium.ionized (Bld) [Mass/ Vol]on 08-21-2024 IONIZED CALCIUM 4.8 mg/dL Normal 4.5-5.3 [facility] Comment on above: Performed By: #### 3 8230-9 ####[facility] [place] [facility] ([id number])[address] [place] [address], [address] [place] [address] Clinical Pathologyon 024 Clinical Pathology Normal [facility] Comment on above: Result Comment: [facility] [address] [place] [address] Clinical Pathology ReportPatient Name:JESSICA PRICE:1960 (Age: 63)Gender:MTaken:08/21/2024eported:08/30/2024hysician(s):Clyde Fox MD ([phone])Copy To: Rec. #:[id number]: #[id number] Pathologic DiagnosisPer [facility] Everywhere, anti-E and a cold antibody were previously detected by [place], [place] in a sample collected in 1999.Anti-E, a clinically significant antibody against the corresponding Rh blood group system antigen is detected in the current sample. Approximately 70% of donor units are expected to be negative for the E antigen. Additional time will be needed for an antiglobulin crossmatch. Report Electronically Signed Out08/30/2024Suad Vyas MDInterpretation performed at [facility] [place] [facility], [address] [place] [address], License number: [id number].TRANSFUSION MEDICINE CONSULTATIONASSAY: Antiglobulin testing ( Valerie )DATA/OBSERVATIONS: Blood type: O positive Direct antiglobulin test (LISA): NA Elution: NA Indirect antiglobulin test (IAT): Positive Antibody identification: Anti-ESpecimen(s) Received Valerie for CPFee Codes(s):1; 14560 Cortisol [Mass/Vol]on 2023 CORTISOL 23.4 ug/dL Normal [facility] Comment on above: Result Comment: Due to the diurnal variation of cortisollevels in normal subjects, all cortisolmeasurements should be referenced to thetime of day of sample collection.AM Cortisol Age>=6 6.7-22.4 ug/dLPM Cortisol Age>=6 <10 ug/dL Performed By: #### 2 143-6, 08992-1 ####[facility] [place] [facility] ([id number])[address] [place] [address], [address] [address] CORTISOL 30.4 ug/dL Normal [facility] Comment on above: Result Comment: Due to the diurnal variation of cortisollevels in normal subjects, all cortisolmeasurements should be referenced to thetime of day of sample collection.AM Cortisol Age>=6 6.7-22.4 ug/dLPM Cortisol Age>=6 <10 ug/dL Performed By: #### C BCA, CMP, 76214-3, 39294-6, THYR, 2143-6, 3051-0, 75503-1 ####[facility] [place] [facility] ([id number])[address] [place] [address], [address] [address] DNA double strand Ab Qn (S)o n 08-21-2024 DOUBLE STRANDED DNA 1 IU/ML Normal <5 [facility] Comment on above: Result Comment: ---- ------Interpretation--------<5 Negative5-9 Indeterminate>9 Positive Performed By: #### C BCA, BMP, 79202-3, 2777-1, C34, 37249-9, SPE, 5193-8, 5196-1, 56603-2, 73638-6, 5130-0, 22487-7, 74412-1, 6969-0, 6968-2 ####[facility] [place] [facility] ([id number])[address], [place] [address] ELECTROLYTESon 08-21-2024 Anion gap [Moles/Vol] 12 mmol/L Normal 5-15 [facility] Comment on above: Performed By: #### E LEC ####[facility] [place] [facility] ([id number])[address], [address], [place] [address] Chloride [Moles/Vol] 107 mmol/L Normal 98-109 [facility] Comment on above: Performed By: #### E LEC ####[facility] [place] [facility] ([id number])[address], [address], [place] [address] CO2 [Moles/Vol] 24 mmol/L Normal 22-32 [facility] Comment on above: Performed By: #### E LEC ####[facility] ([id number])[address], [address], [place] [address] Potassium [Moles/Vol] 4.1 mmol/L Normal 3.5-5.0 [facility] Comment on above: Performed By: #### E LEC ####[facility] [place] [facility] ([id number])[address], [address], [place] [address] Sodium [Moles/Vol] 143 mmol/L Normal 134-146 [facility] Comment on above: Performed By: #### E LEC ####[facility] ([id number])[address], [address], [place] [address] Anion gap [Moles/Vol] 6 mmol/L Normal 5-15 [facility] Comment on above: Performed By: #### E LEC, FEPR, 2275-4, 8, 2132-07 ####[facility] [place] [facility] ([id number])[address], [address], [place] [address] Chloride [Moles/Vol] 109 mmol/L Normal 98-109 [facility] Comment on above: Performed By: #### E LEC, FEPR, 2275-4, 8, 2132-07 ####[facility] [place] [facility] ([id number])[address], [address], [place] [address] CO2 [Moles/Vol] 24 mmol/L Normal 22-32 [facility] Comment on above: Performed By: #### E LEC, FEPR, 2275-, 2284-06, 2132-07 ####[facility] [place] [facility] ([id number])[address], [address] [place] [address] Potassium [Moles/Vol] 3.8 mmol/L Normal 3.5-5.0 [facility] Comment on above: Performed By: #### E LEC, FEPR, 2275-, 2284-06, 2132-07 ####[facility] [place] ([id number])[address], [place] [address] Sodium [Moles/Vol] 139 mmol/L Normal 134-146 [facility] Comment on above: Performed By: #### E LEC, FEPR, 2275-4, 2284-06, 2132-07 ####[facility] [place] [facility] ([id number])[address], [address], [place] [address] FERRITINon 08-21-2024 Ferritin [Mass/Vol] 507 ng/mL High 24-336 [facility] Comment on above: Performed By: #### E LEC, FEPR, 2275-, 2284-06, 2132-07 ####[facility] ([id number])[address] [address] FREE T3on 08-21-2024 Free T3 [Mass/Vol] 2.39 pg/mL Low 2.50-3.90 [facility] Comment on above: Performed By: #### C BCA, CMP, 00586-6, 74474-3, THYR, 2143-6, 3051-0, 53194-2 ####[facility] [place] [facility] ([id number])[facility] [address] [place] [address] Folate [Mass/Vol]on 08-21-20 24 FOLIC ACID 5.6 ng/mL Low >5.8 [facility] Comment on above: Result Comment: NEW REFERENCE RANGE Performed By: #### E LEC, FEPR, 2276-4, 2284-8, 2132-07 ####[facility] [place] [facility] ([id number])[address], [address] [place] [address] Glomerular basement membrane IgG Qn (S)on 08-21-2024 GBM IgG Ab <0.2 Normal <1.0 [facility] Comment on above: Performed By: #### C BCA, BMP, , 2777-1, C34, 34034-4, SPE, 5193-8, 5196-1, 47284-2, 12710-8, 5130-0, 96931-9, 72847-1, 6969-0, 6968-2 ####[facility] [place] [facility] ([id number])[address], [address] [place] [address] HBV surface Ab IA Qnon 08-21 Anti HBs quant. <8.00 Normal [facility] Comment on above: Result Comment: Vacc inated: >=12mIU/mL, Positive (Immune)Unvaccinated: <8mIU/mL, Negative (Not Immune)8-11.99 mIU/mL: Indeterminate,(Considered Not Immune) Performed By: #### C BCA, BMP, , 2777-1, C34, 03894-7, SPE, 5193-8, 5196-1, 99801-6, 34978-1, 5130-0, 39696-8, 50486-7, 6969-0, 6968-2 ####[facility] [place] [facility] ([id number])[address], [address], [place] [address] HBV surface Ag IA on 08-21 HEPATITIS B SURF AG Negative Normal NEG [facility] Comment on above: Performed By: #### C BCA, BMP, 67623-3, 2777-1, C34, 40471-6, SPE, 5193-8, 5196-1, 50199-2, 68116-7, 5130-0, 78639-9, 81128-7, 6969-0, 6968-2 ####[facility] [place] ([id number])[address], [address] [address] HCV Ab IA on 08-21-2024 ANTI HCV W/PCR REFLX Non-Reactive Normal NRCT [facility] Comment on above: Result Comment: If r ecent infection suspected, recommendrepeat testing (>2 months).Wmrlzm-sq-abznqo ratio is <0.80. Performed By: #### C BCA, BMP, 91107-4, 2777-1, C34, 26353-0, SPE, 5193-8, 5196-1, 11835-8, 52687-9, 5130-0, 13297-0, 73266-5, 6969-0, 6968-2 ####[facility] [place] ([id number])[address], [address], [place] [address] IRON PROFILEon 08-21-2024 Iron [Mass/Vol] 49 ug/dL Low 50-212 [facility] Comment on above: Performed By: #### E LEC, FEPR, 2276-4, 2284-8, 2132-9 ####[facility] ([id number])[address], [address] [address] IRON BINDING <105 Low 250-425 [facility] Comment on above: Performed By: #### E LEC, FEPR, 6-4, 2283-8, 2132-07 ####[facility] [place] [facility] ([id number])[address], [address] [place] [address] IRON SATURATION >47 Normal 20-50 [facility] Comment on above: Performed By: #### E LEC, FEPR, 2275-4, 2283-8, 2132-07 ####[facility] [place] ([id number])[address], [address] [place] [address] Lactate (P oc) [Moles/Vol]o n 08-21-2024 LACTATE W/REFLEX 4.6 mmol/L Critically high 0.4-2.0 [facility] Comment on above: Performed By: #### C BCA, CMP, 92428-5, 16598-8, THYR, 2143-6, 3051-0, 05536-9 ####[facility] ([id number])[address], [address] [place] [address] MAGNESIUMon 08-21-2024 Magnesium [Mass/Vol] 2.2 mg/dL Normal 1.8-2.6 [facility] Comment on above: Performed By: #### C BCA, CMP, 30751-5, 35013-0, THYR, 2143-6, 3051-0, 20723-3 ####[facility] [place] ([id number])[address] [address], [place] [address] Magnesium [Mass/Vol] 2.4 mg/dL Normal 1.8-2.6 [facility] Comment on above: Performed By: #### C BCA, BMP, 45759-9, 2777-1, C34, 88389-6, SPE, 5193-8, 5196-1, 98983-1, 61038-4, 5130-0, 70970-6, 50440-8, 6969-0, 6968-2 ####[facility] [place] [facility] ([id number])[address] [address] [place] [address] Magnesium Ionized ISE (Bld) [Moles/Vol]on 08-21-2024 Magnesium [Moles/Vol] 0.62 mmol/L Normal 0.45-0.74 [facility] Comment on above: Result Comment: NEW REFERENCE RANGE Performed By: #### 7 3572-0 ####[facility] ([id number])[address], [address] [place] [address] Magnesium [Moles/Vol] 0.73 mmol/L Normal 0.45-0.74 [facility] Comment on above: Result Comment: NEW REFERENCE RANGE Performed By: #### 7 3572-0 ####[facility] ([id number])[address] [address] Myeloperoxidase Ab Qn (S)on 08-21-2024 Myeloperoxidase Ab <0.2 Normal <1.0 [facility] Comment on above: Performed By: #### C BCA, BMP, 07950-3, 2777-1, C34, 58336-3, SPE, 5193-8, 5196-1, 87300-2, 27001-2, 5130-0, 34888-6, 08851-0, 6969-0, 6968-2 ####[facility] ([id number])[address] [address] Nuclear Ab IA Ql (S)on 08-21 DEB Screen w/reflex Negative Normal NEG [facility] Comment on above: Result Comment: Test ing performed using multiplex flowimmunoassay. Eleven different antigensassociated with systemic autoimmunediseases (dsDNA,Sm,Sm/OPEN WINDER,OPEN WINDER,Chromatin,SSA,SSB,Jena-1,Scl70,Ribo P,Centromere B)are included in this screening test. Performed By: #### C BCA, BMP, 99706-9, 2777-1, C34, 13280-4, SPE, 5193-8, 5196-1, 92101-9, 63268-3, 5130-0, 30129-4, 71874-2, 6969-0, 6968-2 ####[facility] ([id number])[address], [address], [place] [address] PHOSPHORUSon 08-21-2024 Phosphate [Mass/Vol] 6.8 mg/dL High 2.4-4.9 [facility] Comment on above: Performed By: #### C BCA, BMP, 25833-8, 2777-1, C34, 86118-8, SPE, 5193-8, 5196-1, 16348-0, 92148-4, 5130-0, 66672-2, 45509-0, 6969-0, 6968-2 ####[facility] ([id number])[address], [address] [place] [address] Proteinase 3 Ab Qn (S)on Proteinase 3 IgG Ab <0.2 Normal <1.0 [facility] Comment on above: Performed By: #### C BCA, BMP, 84351-1, 2777-1, C34, 29473-7, SPE, 5193-8, 5196-1, 18810-0, 32556-1, 5130-0, 59647-5, 90216-8, 6969-0, 6968-2 ####[facility] ([id number])[address], [address] [place] [address] Rheumatoid factor Nephelomet ry Qn (S)on 08-21-2024 RHEUMATOID FACTOR 12 IU/mL Normal <20 [facility] Comment on above: Performed By: #### C BCA, BMP, 77948-9, 2777-1, C34, 20942-9, SPE, 5193-8, 5196-1, 93936-6, 99310-9, 5130-0, 54912-6, 31391-1, 6969-0, 6968-2 ####[facility] [place] [facility] ([id number])[address] [address] SERUM PROTEIN ELECTROPHORESI Son 08-21-2024 Albumin [Mass/Vol] 2.2 g/dL Low 3.4-5.3 [facility] Comment on above: Performed By: #### C BCA, BMP, 66832-1, 2777-1, C34, 09788-6, SPE, 5193-8, 5196-1, 83557-5, 64957-9, 5130-0, 92580-3, 92454-4, 6969-0, 6968-2 ####[facility] ([id number])[address], [address] [place] [address] ALPHA 1 GLOBULIN 0.4 g/dL Normal 0.1-0.4 [facility] Comment on above: Performed By: #### C BCA, BMP, 01994-1, 2777-1, C34, 84303-3, SPE, 5193-8, 5196-1, 44084-6, 33332-2, 5130-0, 74704-9, 47395-6, 6969-0, 6968-2 ####[facility] ([id number])[address], [place] [address] ALPHA 2 GLOBULIN 0.4 g/dL Normal 0.4-1.1 [facility] Comment on above: Performed By: #### C BCA, BMP, 80111-2, 2777-1, C34, 33408-6, SPE, 5193-8, 5196-1, 11892-9, 46612-1, 5130-0, 40735-5, 04306-1, 6969-0, 6968-2 ####[facility] ([id number])[address] [place] [place] [address] BETA GLOBULIN 0.5 g/dL Normal 0.5-1.2 [facility] Comment on above: Performed By: #### C BCA, BMP, 95338-1, 2777-1, C34, 44955-2, SPE, 5193-8, 5196-1, 80288-9, 58954-2, 5130-0, 52140-3, 89375-4, 6969-0, 6968-2 ####[facility] ([id number])[address], [address] [place] [address] GAMMA GLOBULIN 1.0 g/dL Normal 0.5-1.6 [facility] Comment on above: Performed By: #### C BCA, BMP, 55882-2, 2777-1, C34, 39303-1, SPE, 5193-8, 5196-1, 75209-8, 84655-0, 5130-0, 59342-9, 71552-3, 6969-0, 6968-2 ####[facility] ([id number])[address], [address] [place] [address] PROT. ELECTROPHORESIS INTERP Unremarkable protein distribution, no monoclonal bands. Normal [facility] Comment on above: Performed By: #### C BCA, BMP, 16132-7, 2777-1, C34, 18411-5, SPE, 5193-8, 5196-1, 40789-0, 85685-8, 5130-0, 54067-7, 63225-4, 6969-0, 6968-2 ####[facility] ([id number])[address], [address] [place] [address] Protein [Mass/Vol] 4.4 g/dL Low 6.0-8.0 [facility] Comment on above: Performed By: #### C BCA, BMP, 40383-0, 2777-1, C34, 84838-2, SPE, 5193-8, 5196-1, 81312-6, 10658-9, 5130-0, 23259-2, 55387-3, 6969-0, 6968-2 ####[facility] ([id number])[address], [address] [place] [address] Morrison extractable nuclear Ig G Qn (S)on 08-21-2024 ANTI-MORRISON AB IGG <0.2 Normal <1.0 [facility] Comment on above: Performed By: #### C BCA, BMP, 48893-2, 2777-1, C34, 03680-8, SPE, 5193-8, 5196-1, 94381-7, 63524-1, 5130-0, 43580-3, 19631-5, 6969-0, 6968-2 ####[facility] ([id number])[address] [address] [place] [address] THYROID PROFILEon 08-21-2024 Free T4 [Mass/Vol] 0.98 ng/dL Normal 0.61-1.60 [facility] Comment on above: Performed By: #### C BCA, CMP, 01596-5, 26395-3, THYR, 2143-6, 3051-0, 23845-6 ####[facility] ([id number])[address], [address] [place] [address], [place] [address] TSH 1.42 uIU/mL Normal 0.49-4.67 [facility] Comment on above: Performed By: #### C BCA, CMP, 40999-9, 11156-2, THYR, 2143-6, 3051-0, 42662-1 ####[facility] ([id number])[address], [address] [place] [address], [place] [address] Troponin I.cardiac High sens itivity method [Mass/Vol]on 08-21-2024 1 HOUR TROP I, HIGH SENSITIVITY 20 ng/L Normal <21 [facility] Comment on above: Performed By: #### 2 143-6, 14428-4 ####[facility] ([id number])[address], [place] [address] TROPONIN I, HIGH SENSITIVITY 11 ng/L Normal <21 [facility] Comment on above: Performed By: #### C BCA, CMP, 97914-4, 33777-7, THYR, 2143-6, 3051-0, 85614-1 ####[facility] ([id number])[address], [place] [address] VITAMIN B12on 08-21-2024 Cobalamin (Vitamin B12) [Mass/Vol] 217 pg/mL Normal 180-914 [facility] Comment on above: Performed By: #### E LEC, FEPR, 2276-4, 2284-8, 2-9 ####[facility] ([id number])[address] [place] [address] XR CHEST 1 VWon 08-21-2024 XR CHEST 1 VW Normal [facility] ARTERIAL BLOOD GASon 024 NANCY'S TEST Normal [facility] Comment on above: Performed By: #### A BG ####[facility] ([id number])[address] [facility] [place] [address] BASE,DEFICIT 10.0 MMOL/L High 0.0-2.0 [facility] Comment on above: Performed By: #### A BG ####[facility] ([id number])[address] [place] [place] [address] Body temperature 98.6 [degF] Normal 37.0 [facility] Comment on above: Performed By: #### A BG ####[facility] ([id number])[address] [place] [place] [address] HCO3 (Bld) [Moles/Vol] 17.7 mmol/L Low 22-26 [facility] Comment on above: Performed By: #### A BG ####[facility] ([id number])[address] [place] [place] [address] INSP. O2 CONC. 40 % Normal [facility] Comment on above: Performed By: #### A BG ####[facility] ([id number])[address] [facility] [place] [address] Oxygen (Bld) [Partial pressure] 93 mm[Hg] Normal 80-100 [facility] Comment on above: Performed By: #### A BG ####[facility] ([id number])[address] [facility] [place] [address] Oxygen saturation in Blood 95.0 % Normal >90 [facility] Comment on above: Performed By: #### A BG ####[facility] ([id number])[address] [place] [address] OXYGEN SOURCE NPPV Normal [facility] Comment on above: Performed By: #### A BG ####[facility] ([id number])[address] [place] [address] PCO2 49.9 MMHG High 35-45 [facility] Comment on above: Performed By: #### A BG ####[facility] ([id number])[address] [place] [address] pH (Bld) 7.158 [pH] Critically low 7.350-7.450 [facility] Comment on above: Performed By: #### A BG ####[facility] ([id number])[address] [place] [address] SAMPLE SITE Andreea Normal [facility] Comment on above: Performed By: #### A BG ####[facility] ([id number])[address] [place] [address] SAMPLE TYPE ARTERIAL Normal [facility] Comment on above: Performed By: #### A BG ####[facility] ([id number])[address] [facility] [place] [address] NANCY'S TEST Normal [facility] Comment on above: Performed By: #### A BG ####[facility] ([id number])[address] [place] [address] BASE,DEFICIT 12.0 MMOL/L High 0.0-2.0 [facility] Comment on above: Performed By: #### A BG ####[facility] ([id number])[address] [facility] [place] [address] Body temperature 98.6 [degF] Normal 37.0 [facility] Comment on above: Performed By: #### A BG ####[facility] ([address] [place] [address])[address] [place] [address] HCO3 (Bld) [Moles/Vol] 16.5 mmol/L Low 22-26 [facility] Comment on above: Performed By: #### A BG ####[facility] ([id number])[address] [facility] [place] [address] INSP. O2 CONC. 40 % Normal [facility] Comment on above: Performed By: #### A BG ####[facility] ([id number])[address] [facility] [place] [address] Oxygen (Bld) [Partial pressure] 104 mm[Hg] High 80-100 [facility] Comment on above: Performed By: #### A BG ####[facility] ([id number])[address] [place] [address] Oxygen saturation in Blood 95.0 % Normal >90 [facility] Comment on above: Performed By: #### A BG ####[facility] ([id number])[address] [facility] [place] [address] OXYGEN SOURCE NPPV Normal [facility] Comment on above: Performed By: #### A BG ####[facility] ([id number])[address] [facility] [place] [address] PCO2 50.8 MMHG High 35-45 [facility] Comment on above: Performed By: #### A BG ####[facility] ([id number])[address] [place] [address] pH (Bld) 7.120 [pH] Critically low 7.350-7.450 [facility] Comment on above: Performed By: #### A BG ####[facility] ([id number])[address] [place] [address] SAMPLE SITE Andreea Normal [facility] Comment on above: Performed By: #### A BG ####[facility] ([id number])[address] [place] [address] SAMPLE TYPE ARTERIAL Normal [facility] Comment on above: Performed By: #### A BG ####[facility] ([id number])[address] [place] [address] NANCY'S TEST Normal [facility] Comment on above: Performed By: #### A BG ####[facility] ([id number])[address] [place] [address] BASE,DEFICIT 12.0 MMOL/L High 0.0-2.0 [facility] Comment on above: Performed By: #### A BG ####[facility] ([id number])[address] [place] [address] Body temperature 98.6 [degF] Normal 37.0 [facility] Comment on above: Performed By: #### A BG ####[facility] ([id number])[address] [place] [address] HCO3 (Bld) [Moles/Vol] 18.4 mmol/L Low 22-26 [facility] Comment on above: Performed By: #### A BG ####[facility] ([id number])[address] [place] [address] INSP. O2 CONC. 36 % Normal [facility] Comment on above: Performed By: #### A BG ####[facility] ([id number])[address] [facility] [place] [address] Oxygen (Bld) [Partial pressure] 71 mm[Hg] Low 80-100 [facility] Comment on above: Performed By: #### A BG ####[facility] ([id number])[address] [facility] [place] [address] Oxygen saturation in Blood 84.0 % Low >90 [facility] Comment on above: Performed By: #### A BG ####[facility] ([id number])[address] [facility] [place] [address] OXYGEN SOURCE NC Normal [facility] Comment on above: Performed By: #### A BG ####[facility] ([id number])[address] [place] [address] PCO2 67.4 MMHG High 35-45 [facility] Comment on above: Performed By: #### A BG ####[facility] ([id number])[address] [facility] [place] [address] pH (Bld) 7.044 [pH] Critically low 7.350-7.450 [facility] Comment on above: Performed By: #### A BG ####[facility] ([id number])[address] [place] [address] SAMPLE SITE Andreea Normal [facility] Comment on above: Performed By: #### A BG ####[facility] ([id number])[address] [place] [address] SAMPLE TYPE ARTERIAL Normal [facility] Comment on above: Performed By: #### A BG ####[facility] ([id number])2141 [place] [address] ARTERIAL CODEon 08-20-2024 NANCY'S TEST Pass Normal [facility] Comment on above: Performed By: #### I CODE ####[facility] ([id number])2141 [place] [place] [address] BASE,DEFICIT 12.0 MMOL/L High 0.0-2.0 [facility] Comment on above: Performed By: #### I CODE ####[facility] ([id number])2141 [facility] [place] [address] Body temperature 98.6 [degF] Normal 37.0 [facility] Comment on above: Performed By: #### I CODE ####[facility] ([id number])2141 [place] [address] Glucose [Mass/Vol] 89 mg/dL Normal 65-99 [facility] Comment on above: Performed By: #### I CODE ####[facility] ([id number])2141 [place] [address] HCO3 (Bld) [Moles/Vol] 15.6 mmol/L Low 22-26 [facility] Comment on above: Performed By: #### I CODE ####[facility] ([id number])[address] [place] [address] Hematocrit (Bld) [Volume fraction] 24 % Low 39-49 [facility] Comment on above: Performed By: #### I CODE ####[facility] ([id number])[address] [place] [address] INSP. O2 CONC. 28 % Normal [facility] Comment on above: Performed By: #### I CODE ####[facility] ([id number])2141 [facility] [place] [address] Oxygen (Bld) [Partial pressure] 77 mm[Hg] Low 80-100 [facility] Comment on above: Performed By: #### I CODE ####[facility] ([id number])2141 [facility] [place] [address] Oxygen saturation in Blood 91.0 % Normal >90 [facility] Comment on above: Performed By: #### I CODE ####[facility] ([id number])2141 [place] [address] OXYGEN SOURCE NC Normal [facility] Comment on above: Performed By: #### I CODE ####[facility] ([id number])2141 [place] [address] PCO2 43.4 MMHG Normal 35-45 [facility] Comment on above: Performed By: #### I CODE ####[facility] ([id number])2141 [place] [address] pH (Bld) 7.162 [pH] Critically low 7.350-7.450 [facility] Comment on above: Performed By: #### I CODE ####[facility] ([id number])2141 [place] [address] PORTABLE ICA 5.1 mg/dL Normal 4.5-5.3 [facility] Comment on above: Performed By: #### I CODE ####[facility] ([id number])2141 [place] [address] Potassium [Moles/Vol] 4.5 mmol/L Normal 3.5-5.0 [facility] Comment on above: Performed By: #### I CODE ####[facility] ([id number])2141 [place] [address] SAMPLE SITE LRad Normal [facility] Comment on above: Performed By: #### I CODE ####[facility] ([id number])2141 [place] [address] SAMPLE TYPE ARTERIAL Normal [facility] Comment on above: Performed By: #### I CODE ####[facility] ([id number])2141 [place] [address] Sodium [Moles/Vol] 140 mmol/L Normal 134-146 [facility] Comment on above: Performed By: #### I CODE ####[facility] ([id number])[address] [facility] [place] [address] BASIC METABOLIC PANLon 08-20 Anion gap [Moles/Vol] 9 mmol/L Normal 5-15 [facility] Comment on above: Performed By: #### B MP ####[facility] [place] [facility] ([id number])[address], [place] [address] Calcium [Mass/Vol] 7.9 mg/dL Low 8.5-10.5 [facility] Comment on above: Performed By: #### B MP ####[facility] [place] [facility] ([id number])[address], [address] [address] Chloride [Moles/Vol] 112 mmol/L High 98-109 [facility] Comment on above: Performed By: #### B MP ####[facility] [place] [facility] ([id number])[address] [address], [place] [address] CO2 [Moles/Vol] 19 mmol/L Low 22-32 [facility] Comment on above: Performed By: #### B MP ####[facility] [place] [facility] ([id number])[address] [address] [place] [address] Creatinine [Mass/Vol] 3.77 mg/dL High 0.60-1.30 [facility] Comment on above: Result Comment: METH OD TRACEABLE TO IDMS STANDARD Performed By: #### B MP ####[facility] [place] [facility] ([id number])[address], [address] [place] [place] [address] GFR/1.73 sq M.predicted among non-blacks MDRD (S/P/Bld) [Vol rate/Area] 17 mL/min/{1.73_m2} Low >59 [facility] Comment on above: Result Comment: Repo rted eGFR is based on theCKD-EPI 2020 equation that doesnot use a race coefficient. Performed By: #### B MP ####[facility] [place] [facility] ([id number])[address] [place] [address] Glucose [Mass/Vol] 131 mg/dL High 65-99 [facility] Comment on above: Performed By: #### B MP ####[facility] [place] [facility] ([id number])[address] [address] [place] [address] Potassium [Moles/Vol] 4.5 mmol/L Normal 3.5-5.0 [facility] Comment on above: Performed By: #### B MP ####[facility] [place] [facility] ([id number])[address] [address], [place] [address] Sodium [Moles/Vol] 140 mmol/L Normal 134-146 [facility] Comment on above: Performed By: #### B MP ####[facility] [place] [facility] ([id number])[address] [address], [place] [address] Urea nitrogen [Mass/Vol] 73 mg/dL High 5-27 [facility] Comment on above: Performed By: #### B MP ####[facility] [place] [facility] ([id number])[address] [address], [place] [address] BLOOD CULTUREon 08-20-2024 Bacteria identified Aer cx Nom (Bld) CULTURE RESULTS NO GROWTH 5 DAYS Normal [facility] Bacteria identified Aer cx Nom (Bld) CULTURE RESULTS NO GROWTH 5 DAYS Normal [facility] CBC AND AUTO DIFFon 08-20-20 24 ABSOLUTE BASOPHIL 0.0 X10E9/L Normal 0.0-0.2 [facility] Comment on above: Performed By: #### P INR, 27790-1, CBCA, 00988-0 ####[facility] [place] [facility] ([id number])[address] [address], [place] [address] ABSOLUTE NEUTROPHIL 7.8 X10E9/L High 1.5-6.6 [facility] Comment on above: Performed By: #### P INR, 70017-9, CBCA, 93776-5 ####[facility] [place] [facility] ([id number])[address], [address] [place] [address] Basophils/100 WBC (Bld) 0.2 % Normal [facility] Comment on above: Performed By: #### P INR, 93669-5, CBCA, 06616-6 ####[facility] [place] [facility] ([id number])[address] [address] [place] [address] Eosinophils (Bld) [#/Vol] 0.1 10*3/uL Normal 0.0-0.4 [facility] Comment on above: Performed By: #### P INR, 82217-5, CBCA, 17466-3 ####[facility] [place] [facility] ([id number])[address] [address] [address] Eosinophils/100 WBC (Bld) 0.8 % Normal [facility] Comment on above: Performed By: #### P INR, 61145-2, CBCA, 61410-2 ####[facility] [place] [facility] ([id number])[address] [address] Erythrocyte distribution width (RBC) [Ratio] 17.8 % High 11.5-15.0 [facility] Comment on above: Performed By: #### P INR, 09603-3, CBCA, 18563-2 ####[facility] [place] [facility] ([id number])[address] [address] [place] [address] Hematocrit (Bld) [Volume fraction] 25.4 % Low 39-49 [facility] Comment on above: Performed By: #### P INR, 26373-1, CBCA, 82628-2 ####[facility] [place] [facility] ([id number])[address] [place] [address] Hemoglobin (Bld) [Mass/Vol] 8.2 g/dL Low 13.0-17.0 [facility] Comment on above: Performed By: #### P INR, 15105-4, CBCA, 87786-0 ####[facility] [place] [facility] ([id number])[address] [address] Lymphocytes (Bld) [#/Vol] 0.5 10*3/uL Low 1.0-3.5 [facility] Comment on above: Performed By: #### P INR, 50782-1, CBCA, 80542-2 ####[facility] [place] [facility] ([id number])[address] [address] Lymphocytes/100 WBC (Bld) 5.6 % Normal [facility] Comment on above: Performed By: #### P INR, 09389-7, CBCA, 60535-9 ####[facility] [place] [facility] ([id number])[address] [address] [place] [address] MCH (RBC) [Entitic mass] 28.2 pg Normal 27-34 [facility] Comment on above: Performed By: #### P INR, 82575-7, CBCA, 95627-3 ####[facility] [place] [facility] ([id number])[address] [address] MCHC (RBC) [Mass/Vol] 32.2 g/dL Normal 32-36 [facility] Comment on above: Performed By: #### P INR, 24738-1, CBCA, 99294-5 ####[facility] [place] [facility] ([id number])[address] [address] MCV (RBC) [Entitic vol] 88 fL Normal 80-100 [facility] Comment on above: Performed By: #### P INR, 39868-1, CBCA, 45633-3 ####[facility] [place] [facility] ([id number])[address], [address], [place] [address] Monocytes (Bld) [#/Vol] 0.8 10*3/uL Normal 0-0.9 [facility] Comment on above: Performed By: #### P INR, 46410-0, CBCA, 11961-5 ####[facility] [place] [facility] ([id number])[address], [address], [place] [address] Monocytes/100 WBC (Bld) 8.2 % Normal [facility] Comment on above: Performed By: #### P INR, 38977-7, CBCA, 41686-5 ####[facility] [place] [facility] ([id number])[address], [address], [place] [address] Neutrophils/100 WBC (Bld) 85.2 % Normal [facility] Comment on above: Performed By: #### P INR, 56049-1, CBCA, 50686-2 ####[facility] [place] [facility] ([id number])[address], [address], [place] [address] OVALOCYTE 1+ Abnormal NONE [facility] Comment on above: Performed By: #### P INR, 26231-8, CBCA, 63117-0 ####[facility] [place] [facility] ([id number])[address], [address] [place] [address], [place] [address] Platelet mean volume (Bld) [Entitic vol] 8.1 fL Normal 7-12 [facility] Comment on above: Performed By: #### P INR, 72920-9, CBCA, 38950-4 ####[facility] [place] [facility] ([id number])[address], [address] [place] [address], [place] [address] Platelets (Bld) [#/Vol] 98 10*3/uL Low 150-450 [facility] Comment on above: Performed By: #### P INR, 78297-9, CBCA, 45203-3 ####[facility] [place] [facility] ([id number])[address], [address], [place] [address] RBC COUNT 2.91 X10E12/L Low 4.10-5.70 [facility] Comment on above: Performed By: #### P INR, 19961-1, CBCA, 22893-9 ####[facility] [place] [facility] ([id number])[address], [address] [place] [address] WBC (Bld) [#/Vol] 9.1 10*3/uL Normal 4.0-11.0 [facility] Comment on above: Performed By: #### P INR, 41681-3, CBCA, 69672-5 ####[facility] [place] [facility] ([id number])[address], [address] [address] COMPREHENSIVE METABOLIC PANE Jonathan 08-20-2024 Albumin [Mass/Vol] 2.3 g/dL Low 3.2-5.3 [facility] Comment on above: Performed By: #### 3 2132-1, CMP, 1988-03, LIVR, 07029-1, 2776- , 22303-5 ####[facility] [place] [facility] ([id number])[address], [address] [place] [address] ALP [Catalytic activity/Vol] 62 U/L Normal 39-130 [facility] Comment on above: Performed By: #### 3 2132-1, CMP, 1988-03, LIVR, , 2776- 1, 19388-4 ####[facility] [place] [facility] ([id number])[address], [address] [place] [address], [place] [address] ALT [Catalytic activity/Vol] 5 U/L Normal 0-40 [facility] Comment on above: Performed By: #### 3 2132-1, CMP, 1988-03, LIVR, , 2776- 1, 61499-6 ####[facility] [place] [facility] ([id number])[address], [address], [place] [address] Anion gap [Moles/Vol] 11 mmol/L Normal 5-15 [facility] Comment on above: Performed By: #### 3 2132-1, CMP, 1988-03, LIVR, , 2776- , 07762-8 ####[facility] [place] [facility] ([id number])[address], [address], [place] [address] AST [Catalytic activity/Vol] 7 U/L Normal 0-41 [facility] Comment on above: Performed By: #### 3 2132-1, CMP, 1988-03, LIVR, , , 57130-3 ####[facility] [place] [facility] ([id number])[address] [place] [address] Bilirubin [Mass/Vol] 0.5 mg/dL Normal 0.3-1.2 [facility] Comment on above: Performed By: #### 3 1, CMP, 1990-03, LIVR, , , 33200-9 ####[facility] [place] [facility] ([id number])[address], [address] [place] [address] Calcium [Mass/Vol] 7.7 mg/dL Low 8.5-10.5 [facility] Comment on above: Performed By: #### 3 2132-, CMP, 1988-03, LIVR, , , 07036-8 ####[facility] [place] [facility] ([id number])[address], [address] [place] [address] Chloride [Moles/Vol] 115 mmol/L High 98-109 [facility] Comment on above: Performed By: #### 3 2132-1, CMP, 1988-03, LIVR, , , 63519-2 ####[facility] [place] [facility] ([id number])[address] [place] [address] CO2 [Moles/Vol] 16 mmol/L Low 22-32 [facility] Comment on above: Performed By: #### 3 2132-, [facility], 1990-03, LIVR, , , 36551-6 ####[facility] [place] [facility] ([id number])[address], [address], [place] [address] Creatinine [Mass/Vol] 3.87 mg/dL High 0.60-1.30 [facility] Comment on above: Result Comment: METH OD TRACEABLE TO IDMS STANDARD Performed By: #### 3 2132-11, [facility], 1988-03, LIVR, , 2776-11, 54007-3 ####[facility] [place] [facility] ([id number])[address] [address], [place] [address] GFR/1.73 sq M.predicted among non-blacks MDRD (S/P/Bld) [Vol rate/Area] 16 mL/min/{1.73_m2} Low >59 [facility] Comment on above: Result Comment: Repo rted eGFR is based on theCKD-EPI 2020 equation that doesnot use a race coefficient. Performed By: #### 3 2132-11, [facility], 1988-03, LIVR, , 2776-11, 03527-4 ####[facility] [place] [facility] ([id number])[address] [address], [place] [address] Glucose [Mass/Vol] 94 mg/dL Normal 65-99 [facility] Comment on above: Performed By: #### 3 2132-11, [facility], 1988-03, LIVR, , , 92174-2 ####[facility] [place] [facility] ([id number])[address], [address], [place] [address] Potassium [Moles/Vol] 4.6 mmol/L Normal 3.5-5.0 [facility] Comment on above: Performed By: #### 3 2132-1, CMP, 1988-03, LIVR, 32524-6, 2777- 1, 30684-1 ####[facility] [place] [facility] ([id number])[address] [place] [address] Protein [Mass/Vol] 4.8 g/dL Low 6.0-8.0 [facility] Comment on above: Performed By: #### 3 2132-1, CMP, 1988-03, LIVR, 46524-3, 2776- 1, 59983-5 ####[facility] [place] [facility] ([id number])[address], [place] [address] Sodium [Moles/Vol] 142 mmol/L Normal 134-146 [facility] Comment on above: Performed By: #### 3 1, CMP, 1988-03, LIVR, , , 26861-7 ####[facility] [place] [facility] ([id number])[address], [address], [place] [address] Urea nitrogen [Mass/Vol] 72 mg/dL High 5-27 [facility] Comment on above: Performed By: #### 3 1, CMP, 1988-03, LIVR, 78028-3, 2776- 1, 27667-4 ####[facility] [place] [facility] ([id number])[address] [place] [address] CRP [Mass/Vol]on 08-20-2024 C REACTIVE PROTEIN 7.4 mg/dL High 0.000-0.744 [facility] Comment on above: Performed By: #### 3 2132-1, CMP, 1988-03, LIVR, 60916-6, 277- 1, 44383-2 ####[facility] [place] [facility] ([id number])[address] [place] [address] CT ABDOMEN AND PELVIS WO CON Ton 08-20-2024 CT ABDOMEN AND PELVIS WO CONT Normal [facility] CT CHEST WO CONTon CT CHEST WO CONT Normal [facility] Calcium.ionized (Bld) [Mass/ Vol]on 08-20-2024 IONIZED CALCIUM 4.9 mg/dL Normal 4.5-5.3 [facility] Comment on above: Performed By: #### 3 8230-9, 19491-6 ####[facility] [place] [facility] ([id number])[address], [address] [place] [address] ESR Photometric method (Bld) [Velocity]on 08-20-2024 ESR, ERYTHROCYTE SEDIMENTATION RATE 11 mm/h Normal 0-20 [facility] Comment on above: Performed By: #### P INR, 65349-8, CBCA, 65586-1 ####[facility] [facility] ([id number])[address], [address] [place] [address] Glucose Glucometer (BldC) [M ass/Vol]on 08-20-2024 Glucose [Mass/Vol] 88 mg/dL Normal 65-99 [facility] LIVER PANELon 08-20-2024 Bilirubin.direct [Mass/Vol] 0.1 mg/dL Normal 0.0-0.4 [facility] Comment on above: Performed By: #### 3 3-1, CMP, 1988-03, LIVR, , , 52295-9 ####[facility] [facility] ([id number])[address], [address] [place] [address] Lactate (P oc) [Moles/Vol]o n 08-20-2024 LACTATE W/REFLEX 0.7 mmol/L Normal 0.4-2.0 [facility] Comment on above: Result Comment: Resu lt did not trigger repeat Lactate,re-order if needed. Performed By: #### 3 3-1, CMP, 1988-03, LIVR, , 2776-11, 70985-7 ####[facility] [place] [facility] ([id number])[address], [address] [place] [address] MAGNESIUMon 08-20-2024 Magnesium [Mass/Vol] 1.5 mg/dL Low 1.8-2.6 [facility] Comment on above: Performed By: #### 3 2133-1, CMP, 1988-5, LIVR, 61615-7, 2777- 1, 29461-3 ####[facility] [place] [facility] ([id number])[address] [place] [address] Magnesium Ionized ISE (Bld) [Moles/Vol]on 08-20-2024 Magnesium [Moles/Vol] 0.40 mmol/L Low 0.45-0.74 [facility] Comment on above: Result Comment: NEW REFERENCE RANGE Performed By: #### 3 8230-9, 23040-4 ####[facility] [place] [facility] ([id number])[address], [address] [place] [address] Natriuretic peptide B [Mass/ Vol]on 08-20-2024 Natriuretic peptide B (Bld) [Mass/Vol] 930 pg/mL High <100.0 [facility] Comment on above: Performed By: #### P INR, 64372-8, CBCA, 18699-4 ####[facility] ([id number])[address] [address] [place] [address] Neutrophil cytoplasmic Ab pa peter IF (S)on 08-20-2024 c-ANCA Negative Normal Negative [facility] p-ANCA Negative Normal Negative [facility] Comment on above: Result Comment: NOTE Negative for cANCA and pANCA patterns by immunofluorescence. ADDITIONAL INFORMATION This test was developed and its performance characteristicsdetermined by [facility] in a manner consistent with CLIArequirements. This test has not been cleared or approved bythe U.S. Food and Drug Administration.Test Performed by:[facility] [facility], [place], [place] [address]Wic Director: Sylvia Gonzalez Ph.D.; CLIA# [id number] PHOSPHORUSon 08-20-2024 Phosphate [Mass/Vol] 6.7 mg/dL High 2.4-4.9 [facility] Comment on above: Performed By: #### 3 3-1, CMP, 1988-03, LIVR, , , 61518-6 ####[facility] [facility] ([id number])[address], [place] [address] PROTIME AND INRon 08-20-2024 INR Coag (PPP) [Relative time] 1.6 {INR} High 0.8-1.1 [facility] Comment on above: Performed By: #### P INR, 90761-7, CBCA, 49723-7 ####[facility] [place] [facility] ([id number])[address] [place] [place] [address] PT Coag (PPP) [Time] 18.7 s High 9.8-13.2 [facility] Comment on above: Performed By: #### P INR, 26049-3, CBCA, 62735-6 ####[facility] [place] [facility] ([id number])[address], [place] [address] Procalcitonin IA [Mass/Vol]o n 08-20-2024 PROCALCITONIN 0.36 ng/mL High <0.05 [facility] Comment on above: Result Comment: NOTE <0.50 ng/mL - Low risk of severe sepsis and/or septic shock.<2.00 ng/mL - Recommend retesting within 6-24 hours.>2.00 ng/mL - High risk of sepsis and/or septic shock. Performed By: #### 3 3-1, CMP, 1988-03, LIVR, 86727-4, 2776-11, 43509-0 ####[facility] [place] [facility] ([id number])[address], [place] [address] SUPERFICIAL WOUND CULTUREon 08-20-2024 Bacteria identified Aer cx Nom (Wound) Normal [facility] Comment on above: Performed By: #### 6 32-0 ####[facility] [place] [facility] ([id number])[address], [place] [address] URINALYSISon 08-20-2024 Bilirubin Ql (U) Negative Normal NEG [facility] Comment on above: Performed By: #### U A ####[facility] [place] [facility] ([id number])[address], [place] [address] BLOOD/HGB Large Abnormal NEG [facility] Comment on above: Performed By: #### U A ####[facility] [place] [facility] ([id number])[address], [place] [address] Color (U) YELLOW Normal YELLOW [facility] Comment on above: Performed By: #### U A ####[facility] [place] [facility] ([id number])[address], [place] [address] Glucose Ql (U) Negative Normal NEG [facility] Comment on above: Performed By: #### U A ####[facility] [place] [facility] ([id number])[address], [place] [address] Ketones Ql (U) Negative Normal NEG [facility] Comment on above: Performed By: #### U A ####[facility] [place] [facility] ([id number])[address], [place] [address] Leukocyte esterase Test strip Ql (U) Large Abnormal NEG [facility] Comment on above: Performed By: #### U A ####[facility] [place] [facility] ([id number])[address], [place] [address] Nitrite Ql (U) Negative Normal NEG [facility] Comment on above: Performed By: #### U A ####[facility] [place] [facility] ([id number])[address] [address] [address] pH (U) 5.5 [pH] Normal 5.0-8.5 [facility] Comment on above: Performed By: #### U A ####[facility] [place] [facility] ([id number])[address] [address] [place] [address] Protein Ql (U) 100 mg/dL Abnormal NEG [facility] Comment on above: Performed By: #### U A ####[facility] [place] [facility] ([id number])[address] [address] [place] [address] R.B.CELLS 159 /hpf High 0-5 [facility] Comment on above: Performed By: #### U A ####[facility] [place] [facility] ([id number])[address] [address] [address] Specific gravity (U) [Rel density] 1.009 Normal 1.003-1.035 [facility] Comment on above: Performed By: #### U A ####[facility] [place] [facility] ([id number])[address] [address] [place] [address] SQUAMOUS EPITHELIUM 3 /hpf Normal 0-5 [facility] Comment on above: Performed By: #### U A ####[facility] [place] [facility] ([id number])[address] [address], [place] [address] TURBIDITY CLOUDY Abnormal CLEAR [facility] Comment on above: Performed By: #### U A ####[facility] [place] [facility] ([id number])[address] [address] [address] Urobilinogen (U) [Mass/Vol] mg/dL Normal <1.1 [facility] Comment on above: Performed By: #### U A ####[facility] [place] [facility] ([id number])[address] [place] [address] W.B.CELLS >720 High 0-5 [facility] Comment on above: Performed By: #### U A ####[facility] [place] [facility] ([id number])[address] [address] WBC CLUMPS MANY Abnormal NONE [facility] Comment on above: Performed By: #### U A ####[facility] [place] [facility] ([id number])[address] [address] URINE CULTUREon 08-20-2024 Bacteria identified Cx Nom (U) SPECIMEN NOTES URINE RECEIVED WITHOUT PRESERVATIVE CULTURE RESULTS >100,000 ORGANISMS/ML NORMAL UROGENITAL MAGALYS Normal [facility] Comment on above: Performed By: #### 6 30-4 ####[facility] [place] [facility] ([id number])[address] [address] Aerobic Cultureon 06-03-2023 Aerobic Culture ORGANISM: Staphyloco ccus aureus (O:STAAUR) Quantity of Growth Light Growth ORGANISM: Alcaligenes faecalis (O:ALCFAE) Quantity of Growth Light Growth No Anaerobes Isolated 3 Days Gram Stain Result No Bacteria Seen Aerobic GUSTABO Charge (PCMIC38) SUSCEPTIBILITY ORGANISM: O:STAAUR ANTIBIOTIC INTERPRETATION [...] RESISTANT TO ALL B-LACTAM DRUGS. PERFORMED BY: [place] [address] PATHOLOGIST [employer] MARLA VEGA M.D. [facility] Comment on above: Performed By: #### A ROVERTO, GS #### [address] Gram Stainon 06-03-2023 Microscopic observation Gram stain Nom (Unsp spec) Gram Stain Result No Bacteria Seen PERFORMED BY: [place] [address] PATHOLOGIST [employer] CONSULTANT MARLA VEGA M.D. [facility] Comment on above: Performed By: #### A ROVERTO, GS #### [address] CULTURE URINEon 03-06-2023 CULTURE URINE Isolate [...] F Levofloxacin 2 S F Normal [facility] Comment on above: Performed By: #### U RCX #### [facility] [address] [place] [address] Dr. Marvin Reis UA RANDOM W/MICROSCOPICon BACTERIA SMALL Abnormal NONE SEEN [facility] Comment on above: Performed By: #### U AMIC #### [facility] [address] [place] [address] Dr. Marvin Reis Bilirubin Ql (U) Negative Normal NEGATIVE [facility] Comment on above: Performed By: #### U AMIC #### [facility] [address] [place] [address] Dr. Marvin Reis CAST NONE SEEN Normal NONE SEEN [facility] Comment on above: Performed By: #### U AMIC #### [facility] [address] [place] [address] Dr. Marvin Reis Clarity (U) CLEAR Normal CLEAR [facility] Comment on above: Performed By: #### U AMIC #### [facility] [address] [place] [address] Dr. Marvin Reis Color (U) LT. YELLOW Normal YELLOW [facility] Comment on above: Performed By: #### U AMIC #### [facility] [address] [place] [address] Dr. Marvin Reis Crystals LM Nom (Urine sed) NONE SEEN Normal NONE SEEN [facility] Comment on above: Performed By: #### U AMIC #### [facility] [address] [place] [address] Dr. Marvin Reis Epithelial cells LM Ql (Urine sed) RARE Normal NONE SEEN /RARE [facility] Comment on above: Performed By: #### U AMIC #### [facility] [address] [place] [address] Dr. Marvin Reis Glucose Ql (U) Negative Normal NEGATIVE [facility] Comment on above: Performed By: #### U AMIC #### [facility] [address] [address] [address] Marvin Reis Hemoglobin Ql (U) Negative Normal NEGATIVE [facility] Comment on above: Performed By: #### U AMIC #### [facility] [address] [address] [address] Marvin Reis Ketones Ql (U) Negative Normal NEGATIVE [facility] Comment on above: Performed By: #### U AMIC #### [facility] [address] [address] [address] Marvin Reis LEUKOCYTES SMALL Abnormal NEGATIVE [facility] Comment on above: Performed By: #### U AMIC #### [facility] [address] [address] [address] Marvin Reis MUCOUS NONE SEEN Normal NONE SEEN [facility] Comment on above: Performed By: #### U AMIC #### [facility] [address] [address] [address] Marvin Reis Nitrite Ql (U) Negative Normal NEGATIVE [facility] Comment on above: Performed By: #### U AMIC #### [facility] [address] [address] [address] Marvin Reis pH (U) 6.0 [pH] Normal 5-9 [facility] Comment on above: Performed By: #### U AMIC #### [facility] [address] [address] [address] Marvin Reis RBC 0-2 Normal 0-2 [facility] Comment on above: Performed By: #### U AMIC #### [facility] [address] [address] [address] Marvin Reis SPEC GRAVITY 1.010 Normal 1.005-<=1.0 25 [facility] Comment on above: Performed By: #### U AMIC #### [facility] [address] [address] [address] Marvin Reis UA PROTEIN Negative Normal NEGATIVE/ TRACE [facility] Comment on above: Performed By: #### U AMIC #### [facility] [address] [place] [address] Dr. Marvin Reis Urobilinogen Qn (U) 0.2 {Robbie'U}/dL Normal 0.2 - 1. 0 [facility] Comment on above: Performed By: #### U AMIC #### [facility] [address] [place] [address] Dr. Marvin Reis WBC 5-10 Abnormal NONE SEEN [facility] Comment on above: Performed By: #### U AMIC #### [facility] [address] [place] [address] Dr. Marvin Reis CULTURE URINEon 02-13-2023 CULTURE [...] F Levofloxacin 2 S F Normal [facility] Comment on above: Performed By: #### U RCX #### [facility] [address] [place] [address] Dr. Marvin Reis UA RANDOM W/MICROSCOPICon BACTERIA MODERATE Abnormal NONE SEEN [facility] Comment on above: Performed By: #### U AMIC #### [facility] [address] [place] [address] Dr. Marvin Reis Bilirubin Ql (U) Negative Normal NEGATIVE [facility] Comment on above: Performed By: #### U AMIC #### [facility] [address] [address] [address] Marvin Reis CAST NONE SEEN Normal NONE SEEN [facility] Comment on above: Performed By: #### U AMIC #### [facility] [address] [address] [address] Marvin Reis Clarity (U) CLEAR Normal CLEAR [facility] Comment on above: Performed By: #### U AMIC #### [facility] [address] [address] [address] Marvin Reis Color (U) LT. YELLOW Normal YELLOW [facility] Comment on above: Performed By: #### U AMIC #### [facility] [address] [address] [address] Marvin Reis Crystals LM Nom (Urine sed) NONE SEEN Normal NONE SEEN [facility] Comment on above: Performed By: #### U AMIC #### [facility] [address] [place] [address] Dr. Marvin Reis Epithelial cells LM Ql (Urine sed) MODERATE Abnormal NONE SEEN /RARE [facility] Comment on above: Performed By: #### U AMIC #### [facility] [address] [address] [address] Marvin Reis Glucose Ql (U) Negative Normal NEGATIVE [facility] Comment on above: Performed By: #### U AMIC #### [facility] [address] [place] [address] Dr. Marvin Reis Hemoglobin Ql (U) SMALL Abnormal NEGATIVE [facility] Comment on above: Performed By: #### U AMIC #### [facility] [address] [address] [address] Marvin eRis Ketones Ql (U) Negative Normal NEGATIVE [facility] Comment on above: Performed By: #### U AMIC #### [facility] [address] [address] [address] Marvin Reis LEUKOCYTES LARGE Abnormal NEGATIVE [facility] Comment on above: Performed By: #### U AMIC #### [facility] [address] [address] [address] Marvin Reis MUCOUS NONE SEEN Normal NONE SEEN [facility] Comment on above: Performed By: #### U AMIC #### [facility] [address] [address] [address] Marvin Reis Nitrite Ql (U) Positive Abnormal NEGATIVE [facility] Comment on above: Performed By: #### U AMIC #### [facility] [address] [place] [address] Dr. Marvin Reis pH (U) 5.5 [pH] Normal 5-9 [facility] Comment on above: Performed By: #### U AMIC #### [facility] [address] [place] [address] Dr. Marvin Reis RBC 5-10 Abnormal 0-2 [facility] Comment on above: Performed By: #### U AMIC #### [facility] [address] [place] [address] Dr. Marvin Reis SPEC GRAVITY 1.015 Normal 1.005-<=1.0 25 [facility] Comment on above: Performed By: #### U AMIC #### [facility] [address] [place] [address] Dr. Marvin Reis UA PROTEIN Negative Normal NEGATIVE/ TRACE [facility] Comment on above: Performed By: #### U AMIC #### [facility] [address] [place] [address] Dr. Marvin Reis Urobilinogen Qn (U) 0.2 {Robbie'U}/dL Normal 0.2 - 1. 0 [facility] Comment on above: Performed By: #### U AMIC #### [facility] [address] [place] [address] Dr. Marvin Reis WBC 50-75 Abnormal NONE SEEN [facility] Comment on above: Performed By: #### U AMIC #### [facility] [address] [place] [address] Dr. Marvin Reis CULTURE URINEon 01-23-2023 CULTURE [...] Trimethoprim/Sulfamethoxazo le <=10 S F Normal [facility] Comment on above: Performed By: #### U AMIC #### [facility] [address] [place] [address] Dr. Marvin Reis UA RANDOM W/MICROSCOPICon BACTERIA TRACE Abnormal NONE SEEN [facility] Comment on above: Performed By: #### U AMIC #### [facility] [address] [place] [address] Dr. Marvin Reis Bilirubin Ql (U) Negative Normal NEGATIVE [facility] Comment on above: Performed By: #### U AMIC #### [facility] [address] [place] [address] Dr. Marvin Reis CAST NONE SEEN Normal NONE SEEN [facility] Comment on above: Performed By: #### U AMIC #### [facility] [address] [place] [address] Dr. Marvin Reis Clarity (U) SL CLOUDY Abnormal CLEAR [facility] Comment on above: Performed By: #### U AMIC #### [facility] [address] [place] [address] Dr. Marvin Reis Color (U) LT. YELLOW Normal YELLOW [facility] Comment on above: Performed By: #### U AMIC #### [facility] [address] [address] [address] Marvin Reis Crystals LM Nom (Urine sed) NONE SEEN Normal NONE SEEN [facility] Comment on above: Performed By: #### U AMIC #### [facility] [address] [address] [address] Marvin Reis Epithelial cells LM Ql (Urine sed) NONE SEEN Normal NONE SEEN /RARE [facility] Comment on above: Performed By: #### U AMIC #### [facility] [address] [address] [address] Marvin Reis Glucose Ql (U) Negative Normal NEGATIVE [facility] Comment on above: Performed By: #### U AMIC #### [facility] [address] [address] [address] Marvin Reis Hemoglobin Ql (U) Negative Normal NEGATIVE [facility] Comment on above: Performed By: #### U AMIC #### [facility] [address] [address] [address] Marvin Reis Ketones Ql (U) Negative Normal NEGATIVE [facility] Comment on above: Performed By: #### U AMIC #### [facility] [address] [address] [address] Marvin Reis LEUKOCYTES TRACE Abnormal NEGATIVE [facility] Comment on above: Performed By: #### U AMIC #### [facility] [address] [address] [address] Marvin Reis MUCOUS NONE SEEN Normal NONE SEEN [facility] Comment on above: Performed By: #### U AMIC #### [facility] [address] [address] [address] Marvin Reis Nitrite Ql (U) Negative Normal NEGATIVE [facility] Comment on above: Performed By: #### U AMIC #### [facility] [address] [address] [address] Marvin Reis pH (U) 6.0 [pH] Normal 5-9 [facility] Comment on above: Performed By: #### U AMIC #### [facility] [address] [place] [address] Dr. Marvin Reis RBC NONE SEEN Abnormal 0-2 [facility] Comment on above: Performed By: #### U AMIC #### [facility] [address] [place] [address] Dr. Marvin Reis SPEC GRAVITY 1.020 Normal 1.005-<=1.0 25 [facility] Comment on above: Performed By: #### U AMIC #### [facility] [address] [place] [address] Dr. Marvin Reis UA PROTEIN Negative Normal NEGATIVE/ TRACE [facility] Comment on above: Performed By: #### U AMIC #### [facility] [address] [place] [address] Dr. Marvin Reis Urobilinogen Qn (U) 0.2 {Robbie'U}/dL Normal 0.2 - 1. 0 [facility] Comment on above: Performed By: #### U AMIC #### [facility] [address] [place] [address] Dr. Marvin Reis WBC 10-20 Abnormal NONE SEEN [facility] Comment on above: Performed By: #### U AMIC #### [facility] [address] [place] [address] Dr. Marvin Reis CULTURE URINEon 01-07-2023 CULTURE URINE Isolate 1 Juan M albicans 10,000 cfu/mL of Normal [facility] Comment on above: Performed By: #### U RCX #### [facility] [address] [place] [address] Dr. Marvin Reis UA RANDOM W/MICROSCOPICon BACTERIA TRACE Abnormal NONE SEEN [facility] Comment on above: Performed By: #### U AMIC #### [facility] [address] [place] [address] Dr. Marvin Reis Bilirubin Ql (U) Negative Normal NEGATIVE [facility] Comment on above: Performed By: #### U AMIC #### [facility] [address] [place] [address] Dr. Marvin Reis CA OX CRYSTALS RARE Normal [facility] Comment on above: Performed By: #### U AMIC #### [facility] [address] [address] [address] Marvin Reis CAST NONE SEEN Normal NONE SEEN [facility] Comment on above: Performed By: #### U AMIC #### [facility] [address] [address] [address] Marvin Reis Clarity (U) CLEAR Normal CLEAR [facility] Comment on above: Performed By: #### U AMIC #### [facility] [address] [address] [address] Marvin Reis Color (U) LT. YELLOW Normal YELLOW [facility] Comment on above: Performed By: #### U AMIC #### [facility] [address] [address] [address] Marvin Reis Crystals LM Nom (Urine sed) SEEN Abnormal NONE SEEN [facility] Comment on above: Performed By: #### U AMIC #### [facility] [address] [address] [address] Marvin Reis Epithelial cells LM Ql (Urine sed) FEW Abnormal NONE SEEN /RARE [facility] Comment on above: Performed By: #### U AMIC #### [facility] [address] [address] [address] Marvin Reis Glucose Ql (U) Negative Normal NEGATIVE [facility] Comment on above: Performed By: #### U AMIC #### [facility] [address] [address] [address] Marvin Reis Hemoglobin Ql (U) Negative Normal NEGATIVE [facility] Comment on above: Performed By: #### U AMIC #### [facility] [address] [address] [address] Marvin Reis Ketones Ql (U) Negative Normal NEGATIVE [facility] Comment on above: Performed By: #### U AMIC #### [facility] [address] [address] [address] Marvin Reis LEUKOCYTES SMALL Abnormal NEGATIVE [facility] Comment on above: Performed By: #### U AMIC #### [facility] [address] [address] [address] Marvin Reis MUCOUS NONE SEEN Normal NONE SEEN [facility] Comment on above: Performed By: #### U AMIC #### [facility] [address] [address] [address] Marvin Reis Nitrite Ql (U) Negative Normal NEGATIVE [facility] Comment on above: Performed By: #### U AMIC #### [facility] [address] [address] [address] Marvin Reis pH (U) 5.5 [pH] Normal 5-9 [facility] Comment on above: Performed By: #### U AMIC #### [facility] [address] [place] [address] Dr. Marvin Reis RBC 0-2 Normal 0-2 [facility] Comment on above: Performed By: #### U AMIC #### [facility] [address] [place] [address] Dr. Marvin Reis SPEC GRAVITY 1.015 Normal 1.005-<=1.0 25 [facility] Comment on above: Performed By: #### U AMIC #### [facility] [address] [address] [address] Marvin Reis UA PROTEIN Negative Normal NEGATIVE/ TRACE [facility] Comment on above: Performed By: #### U AMIC #### [facility] [address] [place] [address] Dr. Marvin Reis Urobilinogen Qn (U) 0.2 {Robbie'U}/dL Normal 0.2 - 1. 0 [facility] Comment on above: Performed By: #### U AMIC #### [facility] [address] [place] [address] Dr. Marvin Reis WBC 50-75 Abnormal NONE SEEN [facility] Comment on above: Performed By: #### U AMIC #### [facility] [address] [place] [address] Dr. Marvin Reis YEAST PRESENT Abnormal NONE SEEN [facility] Comment on above: Performed By: #### U AMIC #### [facility] [address] [place] [address] Dr. Marvin Reis CULTURE URINEon 12-25-2022 CULTURE [...] Trimethoprim/Sulfamethoxazo le >=320 R F Normal [facility] Comment on above: Performed By: #### U RCX #### [facility] [address] [place] [address] Dr. Marvin Reis UA RANDOM W/MICROSCOPICon BACTERIA NONE SEEN Normal NONE SEEN [facility] Comment on above: Performed By: #### U AMIC #### [facility] [address] [place] [address] Dr. Marvin Reis Bilirubin Ql (U) Negative Normal NEGATIVE [facility] Comment on above: Performed By: #### U AMIC #### [facility] [address] [place] [address] Dr. Marvin Reis CAST NONE SEEN Normal NONE SEEN [facility] Comment on above: Performed By: #### U AMIC #### [facility] [address] [place] [address] Dr. Marvin Reis Clarity (U) CLEAR Normal CLEAR [facility] Comment on above: Performed By: #### U AMIC #### [facility] [address] [place] [address] Dr. Marvin Reis Color (U) LT. YELLOW Normal YELLOW [facility] Comment on above: Performed By: #### U AMIC #### [facility] [address] [place] [address] Dr. Marvin Reis Crystals LM Nom (Urine sed) NONE SEEN Normal NONE SEEN [facility] Comment on above: Performed By: #### U AMIC #### [facility] [address] [address] [address] Marvin Reis Epithelial cells LM Ql (Urine sed) RARE Normal NONE SEEN /RARE [facility] Comment on above: Performed By: #### U AMIC #### [facility] [address] [address] [address] Marvin Reis Glucose Ql (U) Negative Normal NEGATIVE [facility] Comment on above: Performed By: #### U AMIC #### [facility] [address] [address] [address] Marvin Reis Hemoglobin Ql (U) Negative Normal NEGATIVE [facility] Comment on above: Performed By: #### U AMIC #### [facility] [address] [place] [address] Dr. Marvin Reis Ketones Ql (U) Negative Normal NEGATIVE [facility] Comment on above: Performed By: #### U AMIC #### [facility] [address] [address] [address] Marvin Reis LEUKOCYTES MODERATE Abnormal NEGATIVE [facility] Comment on above: Performed By: #### U AMIC #### [facility] [address] [address] [address] Marvin Reis MUCOUS NONE SEEN Normal NONE SEEN [facility] Comment on above: Performed By: #### U AMIC #### [facility] [address] [address] [address] Marvin Reis Nitrite Ql (U) Negative Normal NEGATIVE [facility] Comment on above: Performed By: #### U AMIC #### [facility] [address] [address] [address] Marvin Reis pH (U) 5.5 [pH] Normal 5-9 [facility] Comment on above: Performed By: #### U AMIC #### [facility] [address] [place] [address] Dr. Marvin Reis RBC NONE SEEN Abnormal 0-2 [facility] Comment on above: Performed By: #### U AMIC #### [facility] [address] [place] [address] Dr. Marvin Reis SPEC GRAVITY 1.015 Normal 1.005-<=1.0 25 [facility] Comment on above: Performed By: #### U AMIC #### [facility] [address] [place] [address] Dr. Marvin Reis UA PROTEIN Negative Normal NEGATIVE/ TRACE [facility] Comment on above: Performed By: #### U AMIC #### [facility] [address] [place] [address] Dr. Marvin Reis Urobilinogen Qn (U) 0.2 {Robbie'U}/dL Normal 0.2 - 1. 0 [facility] Comment on above: Performed By: #### U AMIC #### [facility] [address] [place] [address] Dr. Marvin Reis WBC 10-20 Abnormal NONE SEEN [facility] Comment on above: Performed By: #### U AMIC #### [facility] [address] [place] [address] Dr. Marvin Reis CULTURE URINEon 12-05-2022 CULTURE [...] Trimethoprim/Sulfamethoxazo le <=20 S F Normal [facility] Comment on above: Performed By: #### U RCX #### [facility] [address] [place] [address] Dr. Marvin Reis CREATININEon 12-03-2022 Creatinine [Mass/Vol] 0.88 mg/dL Normal 0.70-1.30 [facility] Comment on above: Performed By: #### U RCX #### [facility] [address] [place], [place] [address] Dr. Marvin Reis EGFR-AF SOUTH AFRICAN >60 Normal >=60 [facility] Comment on above: Performed By: #### U RCX #### [facility] [address] [place], [place] [address] Dr. Marvin Reis EGFR-NON AF SOUTH AFRICAN >60 Normal >=60 [facility] Comment on above: Performed By: #### U RCX #### [facility] [address] [place], [place] [address] ABDOMEN WO/W CONon [...] ELENO PARKER Date: 2022-12-03 14:51 Normal [facility] UA RANDOM W/MICROSCOPICon BACTERIA TRACE Abnormal NONE SEEN [facility] Comment on above: Performed By: #### U RCX #### [facility] [address] [place] [address] Dr. Marvin Reis Bilirubin Ql (U) Negative Normal NEGATIVE [facility] Comment on above: Performed By: #### U RCX #### [facility] [address] [address] [address] Marvin Reis CAST NONE SEEN Normal NONE SEEN [facility] Comment on above: Performed By: #### U RCX #### [facility] [address] [address] [address] Marvin Reis Clarity (U) CLEAR Normal CLEAR [facility] Comment on above: Performed By: #### U RCX #### [facility] [address] [place] [address] Dr. Marvin Reis Color (U) LT. YELLOW Normal YELLOW [facility] Comment on above: Performed By: #### U RCX #### [facility] [address] [address] [address] Marvin Reis Crystals LM Nom (Urine sed) NONE SEEN Normal NONE SEEN [facility] Comment on above: Performed By: #### U RCX #### [facility] [address] [place] [address] Dr. Marvin Reis Epithelial cells LM Ql (Urine sed) RARE Normal NONE SEEN /RARE [facility] Comment on above: Performed By: #### U RCX #### [facility] [address] [place] [address] Dr. Marvin Reis Glucose Ql (U) Negative Normal NEGATIVE [facility] Comment on above: Performed By: #### U RCX #### [facility] [address] [place] [address] Dr. Marvin Reis Hemoglobin Ql (U) TRACE-INTACT Abnormal NEGATIVE [facility] Comment on above: Performed By: #### U RCX #### [facility] [address] [place] [address] Dr. Marvin Reis Ketones Ql (U) Negative Normal NEGATIVE [facility] Comment on above: Performed By: #### U RCX #### [facility] [address] [place] [address] Dr. Marvin Reis LEUKOCYTES TRACE Abnormal NEGATIVE [facility] Comment on above: Performed By: #### U RCX #### [facility] [address] [place] [address] Dr. Marvin Reis MUCOUS TRACE Abnormal NONE SEEN [facility] Comment on above: Performed By: #### U RCX #### [facility] [address] [place] [address] Dr. Marvin Reis Nitrite Ql (U) Negative Normal NEGATIVE [facility] Comment on above: Performed By: #### U RCX #### [facility] [address] [place] [address] Dr. Marvin Reis pH (U) 5.0 [pH] Normal 5-9 [facility] Comment on above: Performed By: #### U RCX #### [facility] [address] [place] [address] Dr. Marvin Reis RBC 0-2 Normal 0-2 [facility] Comment on above: Performed By: #### U RCX #### [facility] [address] [place] [address] Dr. Marvin Reis SPEC GRAVITY 1.010 Normal 1.005-<=1.0 25 [facility] Comment on above: Performed By: #### U RCX #### [facility] [address] [place] [address] Dr. Marvin Reis UA PROTEIN TRACE Normal NEGATIVE/ TRACE [facility] Comment on above: Performed By: #### U RCX #### [facility] [address] [place] [address] Dr. Marvin Reis Urobilinogen Qn (U) 0.2 {Robbie'U}/dL Normal 0.2 - 1. 0 [facility] Comment on above: Performed By: #### U RCX #### [facility] [address] [place] [address] Dr. Marvin Reis WBC 2-5 Abnormal NONE SEEN [facility] Comment on above: Performed By: #### U RCX #### [facility] [address] [address] [address] ABD/PELVIS WO CONon [...] MAGY COMER Date: 2022-11-20 14:51 Normal [facility] CULTURE URINEon 11-11-2022 CULTURE URINE Culture Observations : GUSTABO TO FOLLOW. Isolate 1 Enterobacter aerogenes >100,000 cfu/mL of Normal [facility] Comment on above: Performed By: #### U RCX #### [facility] [address] [place] [address] Dr. Marvin Reis UA RANDOM W/MICROSCOPICon BACTERIA SMALL Abnormal NONE SEEN [facility] Comment on above: Performed By: #### U AMIC #### [facility] [address] [place] [address] Dr. Marvin Reis Bilirubin Ql (U) Negative Normal NEGATIVE [facility] Comment on above: Performed By: #### U AMIC #### [facility] [address] [place] [address] Dr. Marvin Reis CAST NONE SEEN Normal NONE SEEN [facility] Comment on above: Performed By: #### U AMIC #### [facility] [address] [place] [address] Dr. Marvin Reis Clarity (U) CLOUDY Abnormal CLEAR [facility] Comment on above: Performed By: #### U AMIC #### [facility] [address] [place] [address] Dr. Marvin Reis Color (U) LT. YELLOW Normal YELLOW [facility] Comment on above: Performed By: #### U AMIC #### [facility] [address] [place] [address] Dr. Marvin Reis Crystals LM Nom (Urine sed) NONE SEEN Normal NONE SEEN [facility] Comment on above: Performed By: #### U AMIC #### [facility] [address] [place] [address] Dr. Marvin Reis Epithelial cells LM Ql (Urine sed) NONE SEEN Normal NONE SEEN /RARE [facility] Comment on above: Performed By: #### U AMIC #### [facility] [address] [place] [address] Dr. Marvin Reis Glucose Ql (U) Negative Normal NEGATIVE [facility] Comment on above: Performed By: #### U AMIC #### [facility] [address] [address] [address] Marvin Reis Hemoglobin Ql (U) TRACE-INTACT Abnormal NEGATIVE [facility] Comment on above: Performed By: #### U AMIC #### [facility] [address] [address] [address] Marvin Reis Ketones Ql (U) Negative Normal NEGATIVE [facility] Comment on above: Performed By: #### U AMIC #### [facility] [address] [address] [address] Marvin Reis LEUKOCYTES LARGE Abnormal NEGATIVE [facility] Comment on above: Performed By: #### U AMIC #### [facility] [address] [place] [address] Dr. Marvin Reis MUCOUS NONE SEEN Normal NONE SEEN [facility] Comment on above: Performed By: #### U AMIC #### [facility] [address] [address] [address] Marvin Reis Nitrite Ql (U) Positive Abnormal NEGATIVE [facility] Comment on above: Performed By: #### U AMIC #### [facility] [address] [address] [address] Marvin Reis pH (U) 5.5 [pH] Normal 5-9 [facility] Comment on above: Performed By: #### U AMIC #### [facility] [address] [place] [address] Dr. Marvin Reis RBC 0-2 Normal 0-2 [facility] Comment on above: Performed By: #### U AMIC #### [facility] [address] [address] [address] Marvin Reis SPEC GRAVITY 1.015 Normal 1.005-<=1.0 25 [facility] Comment on above: Performed By: #### U AMIC #### [facility] [address] [place] [address] Dr. Marvin Reis UA PROTEIN Negative Normal NEGATIVE/ TRACE [facility] Comment on above: Performed By: #### U AMIC #### [facility] [address] [address] [address] Marvin Reis Urobilinogen Qn (U) 0.2 {Robbie'U}/dL Normal 0.2 - 1. 0 [facility] Comment on above: Performed By: #### U AMIC #### [facility] [address] [place] [address] Dr. Marvin Reis WBC 10-20 Abnormal NONE SEEN [facility] Comment on above: Performed By: #### U AMIC #### [facility] [address] [place] [address] Dr. Marvin Reis CULTURE URINEon 10-24-2022 CULTURE [...] Trimethoprim/Sulfamethoxazo le <=20 S F Normal [facility] Comment on above: Performed By: #### U RCX #### [facility] [address] [place] [address] Dr. Marvin Reis UA RANDOM W/MICROSCOPICon BACTERIA LARGE Abnormal NONE SEEN [facility] Comment on above: Performed By: #### U AMIC #### [facility] [address] [place] [address] Dr. Marvin Reis Bilirubin Ql (U) Negative Normal NEGATIVE [facility] Comment on above: Performed By: #### U AMIC #### [facility] [address] [place] [address] Dr. Marvin Reis CAST NONE SEEN Normal NONE SEEN [facility] Comment on above: Performed By: #### U AMIC #### [facility] [address] [place] [address] Dr. Marvin Reis Clarity (U) SL CLOUDY Abnormal CLEAR [facility] Comment on above: Performed By: #### U AMIC #### [facility] [address] [address] [address] Marvin Reis Color (U) YELLOW Normal YELLOW [facility] Comment on above: Performed By: #### U AMIC #### [facility] [address] [address] [address] Marvin Reis Crystals LM Nom (Urine sed) NONE SEEN Normal NONE SEEN [facility] Comment on above: Performed By: #### U AMIC #### [facility] [address] [address] [address] Marvin Reis Epithelial cells LM Ql (Urine sed) FEW Abnormal NONE SEEN /RARE [facility] Comment on above: Performed By: #### U AMIC #### [facility] [address] [address] [address] Marvin Reis Glucose Ql (U) Negative Normal NEGATIVE [facility] Comment on above: Performed By: #### U AMIC #### [facility] [address] [address] [address] Marvin Reis Hemoglobin Ql (U) TRACE-INTACT Abnormal NEGATIVE [facility] Comment on above: Performed By: #### U AMIC #### [facility] [address] [address] [address] Marvin Reis Ketones Ql (U) Negative Normal NEGATIVE [facility] Comment on above: Performed By: #### U AMIC #### [facility] [address] [address] [address] Marvin Reis LEUKOCYTES LARGE Abnormal NEGATIVE [facility] Comment on above: Performed By: #### U AMIC #### [facility] [address] [address] [address] Marvin Reis MUCOUS NONE SEEN Normal NONE SEEN [facility] Comment on above: Performed By: #### U AMIC #### [facility] [address] [place] [address] Dr. Marvin Reis Nitrite Ql (U) Negative Normal NEGATIVE [facility] Comment on above: Performed By: #### U AMIC #### [facility] [address] [address] [address] Marvin Reis pH (U) 5.0 [pH] Normal 5-9 [facility] Comment on above: Performed By: #### U AMIC #### [facility] [address] [place] [address] Dr. Marvin Reis RBC 5-10 Abnormal 0-2 [facility] Comment on above: Performed By: #### U AMIC #### [facility] [address] [place] [address] Dr. Marvin Reis SPEC GRAVITY 1.010 Normal 1.005-<=1.0 25 [facility] Comment on above: Performed By: #### U AMIC #### [facility] [address] [place] [address] Dr. Marvin Reis UA PROTEIN Negative Normal NEGATIVE/ TRACE [facility] Comment on above: Performed By: #### U AMIC #### [facility] [address] [place] [address] Dr. Marvin Reis Urobilinogen Qn (U) 0.2 {Robbie'U}/dL Normal 0.2 - 1. 0 [facility] Comment on above: Performed By: #### U AMIC #### [facility] [address] [place] [address] Dr. Marvin Reis WBC 50-75 Abnormal NONE SEEN [facility] Comment on above: Performed By: #### U AMIC #### [facility] [address] [place] [address] Dr. Marvin Reis CULTURE URINEon 10-01-2022 CULTURE URINE Culture Observations : NO GROWTH. Normal [facility] Comment on above: Performed By: #### U AMIC #### [facility] [address] [place] [address] Dr. Marvin Reis UA RANDOM W/MICROSCOPICon BACTERIA SMALL Abnormal NONE SEEN [facility] Comment on above: Performed By: #### U AMIC #### [facility] [address] [place] [address] Dr. Marvin Reis Bilirubin Ql (U) Negative Normal NEGATIVE [facility] Comment on above: Performed By: #### U AMIC #### [facility] [address] [address] [address] Marvin Reis CAST SEEN Abnormal NONE SEEN [facility] Comment on above: Performed By: #### U AMIC #### [facility] [address] [address] [address] Marvin Reis Clarity (U) CLEAR Normal CLEAR [facility] Comment on above: Performed By: #### U AMIC #### [facility] [address] [address] [address] Marvin Reis Color (U) LT. YELLOW Normal YELLOW [facility] Comment on above: Performed By: #### U AMIC #### [facility] [address] [address] [address] Marivn Reis Crystals LM Nom (Urine sed) NONE SEEN Normal NONE SEEN [facility] Comment on above: Performed By: #### U AMIC #### [facility] [address] [address] [address] Marvin Reis Epithelial cells LM Ql (Urine sed) FEW Abnormal NONE SEEN /RARE [facility] Comment on above: Performed By: #### U AMIC #### [facility] [address] [address] [address] Marvin Reis Glucose Ql (U) Negative Normal NEGATIVE [facility] Comment on above: Performed By: #### U AMIC #### [facility] [address] [address] [address] Marvin Reis Hemoglobin Ql (U) TRACE-INTACT Abnormal NEGATIVE [facility] Comment on above: Performed By: #### U AMIC #### [facility] [address] [address] [address] Marvin Reis HYALINE CAST FEW Normal [facility] Comment on above: Performed By: #### U AMIC #### [facility] [address] [address] [address] Marvin Reis Ketones Ql (U) Negative Normal NEGATIVE [facility] Comment on above: Performed By: #### U AMIC #### [facility] [address] [address] [address] Marvin Reis LEUKOCYTES MODERATE Abnormal NEGATIVE [facility] Comment on above: Performed By: #### U AMIC #### [facility] [address] [place] [address] Dr. Marvin Reis MUCOUS SMALL Abnormal NONE SEEN [facility] Comment on above: Performed By: #### U AMIC #### [facility] [address] [place] [address] Dr. Marvin Reis Nitrite Ql (U) Negative Normal NEGATIVE [facility] Comment on above: Performed By: #### U AMIC #### [facility] [address] [place] [address] Dr. Marvin Reis pH (U) 5.5 [pH] Normal 5-9 [facility] Comment on above: Performed By: #### U AMIC #### [facility] [address] [place] [address] Dr. Marvin Reis RBC 0-2 Normal 0-2 [facility] Comment on above: Performed By: #### U AMIC #### [facility] [address] [place] [address] Dr. Marvin Reis SPEC GRAVITY 1.020 Normal 1.005-<=1.0 25 [facility] Comment on above: Performed By: #### U AMIC #### [facility] [address] [place] [address] Dr. Marvin Reis UA PROTEIN Negative Normal NEGATIVE/ TRACE [facility] Comment on above: Performed By: #### U AMIC #### [facility] [address] [place] [address] Dr. Marvin Reis Urobilinogen Qn (U) 0.2 {Robbie'U}/dL Normal 0.2 - 1. 0 [facility] Comment on above: Performed By: #### U AMIC #### [facility] [address] [place] [address] Dr. Marvin Reis WBC 10-20 Abnormal NONE SEEN [facility] Comment on above: Performed By: #### U AMIC #### [facility] [address] [place] [address] Dr. Marvin Reis CULTURE URINEon 09-26-2022 CULTURE [...] Trimethoprim/Sulfamethoxazo le <=20 S F Normal [facility] Comment on above: Performed By: #### U RCX #### [facility] [address] [place] [address] Dr. Marvin Reis CBC W MANUAL DIFFon 09-25-20 22 ANISOCYTOSIS SLIGHT Normal [facility] Comment on above: Performed By: #### U RCX #### [facility] [address] [place] [address] Dr. Marvin Reis ATYPICAL LYMPH # Normal [facility] Comment on above: Performed By: #### U RCX #### [facility] [address] [place] [address] Dr. Marvin Reis ATYPICAL LYMPH % Normal [facility] Comment on above: Performed By: #### U RCX #### [facility] [address] [place] [address] Dr. Marvin Reis BAND # Normal 0.0-0.3 [facility] Comment on above: Performed By: #### U RCX #### [facility] [address] [place] [address] Dr. Marvin Reis BAND % Normal 0-5 [facility] Comment on above: Performed By: #### U RCX #### [facility] [address] [place] [address] Dr. Marvin VALENTINE # 0.00 103/ul Normal 0.00-0.10 [facility] Comment on above: Performed By: #### U RCX #### [facility] [address] [place] [address] Dr. Yilan Reis BASOM % 0.0 % Critically low 0.2-2.0 [facility] Comment on above: Performed By: #### U RCX #### [facility] [address] [address] [address] Marvin Reis BLAST # Normal [facility] Comment on above: Performed By: #### U RCX #### [facility] [address] [address] [address] Marvin Reis BLAST % Normal [facility] Comment on above: Performed By: #### U RCX #### [facility] [address] [address] [address] Marvin Reis CORRECTED WBC Normal 4.0-11.0 [facility] Comment on above: Performed By: #### U RCX #### [facility] [address] [place] [address] Dr. Marvin Reis EOS # 0.00 103/ul Normal 0.00-0.70 [facility] Comment on above: Performed By: #### U RCX #### [facility] [address] [place] [address] Dr. Marvin Reis EOS% 0.0 % Critically low 0.9-7.0 [facility] Comment on above: Performed By: #### U RCX #### [facility] [address] [place] [address] Dr. Marvin Reis HCT 32.1 % Critically low 42.0-54.0 [facility] Comment on above: Performed By: #### U RCX #### [facility] [address] [place] [address] Dr. Marvin Reis HGB 10.2 g/dl Critically low 14.0-18.0 [facility] Comment on above: Performed By: #### U RCX #### [facility] [address] [place] [address] Dr. Marvin Reis LYMPHM # 0.76 103/ul Critically low 1.20-3.80 [facility] Comment on above: Performed By: #### U RCX #### [facility] [address] [address] [address] Marvin Reis LYMPHM% 14.0 % Critically low 20.5-60.0 [facility] Comment on above: Performed By: #### U RCX #### [facility] [address] [place] [address] Dr. Marvin Reis MCH 26.5 pg Normal 25.9-34.0 [facility] Comment on above: Performed By: #### U RCX #### [facility] [address] [place] [address] Dr. Marvin Reis MCHC 31.8 g/dl Normal 29.9-35.2 [facility] Comment on above: Performed By: #### U RCX #### [facility] [address] [place] [address] Dr. Marvin Reis MCV 83.4 fL Normal 80.0-94.0 [facility] Comment on above: Performed By: #### U RCX #### [facility] [address] [place] [address] Dr. Marvin Reis METAMYELOCYTE # Normal [facility] Comment on above: Performed By: #### U RCX #### [facility] [address] [place] [address] Dr. Marvin Reis METAMYELOCYTE % Normal [facility] Comment on above: Performed By: #### U RCX #### [facility] [address] [place] [address] Dr. Marvin Reis MONOM# 0.27 103/ul Critically low 0.30-0.80 [facility] Comment on above: Performed By: #### U RCX #### [facility] [address] [place] [address] Dr. Marvin Reis MONOM% 5.0 % Normal 1.7-12.0 [facility] Comment on above: Performed By: #### U RCX #### [facility] [address] [place] [address] Dr. Marvin Reis MPV 9.8 fL Normal 9.5-13.5 [facility] Comment on above: Performed By: #### U RCX #### [facility] [address] [address] [address] Marvin Reis MYELOCYTE # Normal [facility] Comment on above: Performed By: #### U RCX #### [facility] [address] [address] [address] Marvin Reis MYELOCYTE % Normal [facility] Comment on above: Performed By: #### U RCX #### [facility] [address] [address] [address] Marvin Reis NRBC Normal [facility] Comment on above: Performed By: #### U RCX #### [facility] [address] [address] [address] Marvin Reis PLT 78 103/ul Critically low 150-450 [facility] Comment on above: Performed By: #### U RCX #### [facility] [address] [address] [address] Marvin Reis RBC 3.85 106/ul Critically low 4.70-6.10 [facility] Comment on above: Performed By: #### U RCX #### [facility] [address] [address] [address] Marvin Reis RDW 15.8 % Critically high 11.0-15.0 [facility] Comment on above: Performed By: #### U RCX #### [facility] [address] [address] [address] Marvin Reis SEG # 4.37 103/ul Normal 1.40-6.50 [facility] Comment on above: Performed By: #### U RCX #### [facility] [address] [address] [address] Marvin Reis SEG % 81.0 % Critically high 43.0-75.0 [facility] Comment on above: Performed By: #### U RCX #### [facility] [address] [address] [address] Marvin Reis WBC 5.4 103/ul Normal 4.0-11.0 [facility] Comment on above: Performed By: #### U RCX #### [facility] [address] [address] [address] Marvin Reis CRPon 09-25-2022 CRP 8.9 mg/dL Critically high <=1.0 [facility] Comment on above: Performed By: #### U AMIC #### [facility] [address] [address] [address] Marvin Reis LACTATE/LACTIC ACIDon 2021 Lactate [Moles/Vol] 0.9 mmol/L Normal 0.4-1.9 [facility] Comment on above: Performed By: #### U RCX #### [facility] [address] [address] [address] Marvin Reis PROF 14(COMP METB)on 022 Albumin [Mass/Vol] 2.6 g/dL Critically low 3.4-5.0 [facility] Comment on above: Performed By: #### U AMIC #### [facility] [address] [address] [address] Marvin Reis Albumin/Globulin [Mass ratio] 0.7 {ratio} Normal [facility] Comment on above: Performed By: #### U AMIC #### [facility] [address] [address] [address] Marvin Reis ALP [Catalytic activity/Vol] 75 U/L Normal 46-116 [facility] Comment on above: Performed By: #### U AMIC #### [facility] [address] [address] [address] Marvin Reis ALT [Catalytic activity/Vol] 23 U/L Normal 16-63 [facility] Comment on above: Performed By: #### U AMIC #### [facility] [address] [address] [address] Marvin Reis Anion gap [Moles/Vol] 11.8 mmol/L Normal [facility] Comment on above: Performed By: #### U AMIC #### [facility] [address] [address] [address] Marvin Reis AST [Catalytic activity/Vol] 21 U/L Normal 15-37 [facility] Comment on above: Performed By: #### U AMIC #### [facility] [address] [address] [address] Marvin Reis Bilirubin [Mass/Vol] 0.8 mg/dL Normal 0.2-1.0 [facility] Comment on above: Performed By: #### U AMIC #### [facility] [address] [address] [address] Marvin Reis Calcium [Mass/Vol] 8.7 mg/dL Normal 8.5-10.1 [facility] Comment on above: Performed By: #### U AMIC #### [facility] [address] [place] [address] Dr. Marvin Reis Chloride [Moles/Vol] 105 mmol/L Normal 98-107 [facility] Comment on above: Performed By: #### U AMIC #### [facility] [address] [place] [address] Dr. Marvin Reis CO2 [Moles/Vol] 26.1 mmol/L Normal 21.0-32.0 [facility] Comment on above: Performed By: #### U AMIC #### [facility] [address] [place] [address] Dr. Marvin Reis Creatinine [Mass/Vol] 0.88 mg/dL Normal 0.70-1.30 [facility] Comment on above: Performed By: #### U AMIC #### [facility] [address] [place] [address] Dr. Marvin Reis EGFR-AF SOUTH AFRICAN >60 Normal >=60 [facility] Comment on above: Performed By: #### U AMIC #### [facility] [address] [place] [address] Dr. Marvin Reis EGFR-NON AF SOUTH AFRICAN >60 Normal >=60 [facility] Comment on above: Performed By: #### U AMIC #### [facility] [address] [place] [address] Dr. Marvin Reis Globulin (S) [Mass/Vol] 3.7 g/dL Normal [facility] Comment on above: Performed By: #### U AMIC #### [facility] [address] [address] [address] Marvin Reis Glucose [Mass/Vol] 93 mg/dL Normal 74-106 [facility] Comment on above: Performed By: #### U AMIC #### [facility] [address] [address] [address] Marvin Reis Potassium [Moles/Vol] 3.9 mmol/L Normal 3.5-5.1 [facility] Comment on above: Performed By: #### U AMIC #### [facility] [address] [address] [address] Marvin Reis Protein [Mass/Vol] 6.3 g/dL Critically low 6.4-8.2 [facility] Comment on above: Performed By: #### U AMIC #### [facility] [address] [address] [address] Marvin Reis Sodium [Moles/Vol] 139 mmol/L Normal 136-145 [facility] Comment on above: Performed By: #### U AMIC #### [facility] [address] [address] [address] Marvin Reis Urea nitrogen [Mass/Vol] 20.0 mg/dL Critically high 7.0-18.0 [facility] Comment on above: Performed By: #### U AMIC #### [facility] [address] [address] [address] Marvin Reis Urea nitrogen/Creatinine [Mass ratio] 22.7 mg/mg Normal [facility] Comment on above: Performed By: #### U AMIC #### [facility] [address] [address] [address] Marvin [facility] 49 mm/hr Critically high <=20 [facility] Comment on above: Performed By: #### U AMIC #### [facility] [address] [address] [address] Marvin Reis CBC W MANUAL DIFFon 09-24-20 22 ATYPICAL LYMPH # Normal [facility] Comment on above: Performed By: #### U RCX #### [facility] [address] [place] [address] Dr. Marvin Reis ATYPICAL LYMPH % Normal [facility] Comment on above: Performed By: #### U RCX #### [facility] [address] [place] [address] Dr. Marvin Reis BAND # Normal 0.0-0.3 [facility] Comment on above: Performed By: #### U RCX #### [facility] [address] [place] [address] Dr. Marvin Reis BAND % Normal 0-5 [facility] Comment on above: Performed By: #### U RCX #### [facility] [address] [place] [address] Dr. Marvin Reis BASOM # 0.00 103/ul Normal 0.00-0.10 [facility] Comment on above: Performed By: #### U RCX #### [facility] [address] [place] [address] Dr. Marvin Reis BASOM % 0.0 % Critically low 0.2-2.0 [facility] Comment on above: Performed By: #### U RCX #### [facility] [address] [place] [address] Dr. Marvin Reis BLAST # Normal [facility] Comment on above: Performed By: #### U RCX #### [facility] [address] [place] [address] Dr. Marvin Reis BLAST % Normal [facility] Comment on above: Performed By: #### U RCX #### [facility] [address] [place] [address] Dr. Marvin Reis CORRECTED WBC Normal 4.0-11.0 [facility] Comment on above: Performed By: #### U RCX #### [facility] [address] [place] [address] Dr. Marvin Reis EOS # 0.00 103/ul Normal 0.00-0.70 [facility] Comment on above: Performed By: #### U RCX #### [facility] [address] [address] [address] Marvin Reis EOS% 0.0 % Critically low 0.9-7.0 [facility] Comment on above: Performed By: #### U RCX #### [facility] [address] [place] [address] Dr. Marvin Reis HCT 33.5 % Critically low 42.0-54.0 [facility] Comment on above: Performed By: #### U RCX #### [facility] [address] [address] [address] Marvin Reis HGB 10.9 g/dl Critically low 14.0-18.0 [facility] Comment on above: Performed By: #### U RCX #### [facility] [address] [place] [address] Dr. Marvin Reis LYMPHM # 0.52 103/ul Critically low 1.20-3.80 [facility] Comment on above: Performed By: #### U RCX #### [facility] [address] [place] [address] Dr. Marvin Reis LYMPHM% 4.0 % Critically low 20.5-60.0 [facility] Comment on above: Performed By: #### U RCX #### [facility] [address] [place] [address] Dr. Marvin Reis MCH 27.2 pg Normal 25.9-34.0 [facility] Comment on above: Performed By: #### U RCX #### [facility] [address] [address] [address] Marvin Reis MCHC 32.5 g/dl Normal 29.9-35.2 [facility] Comment on above: Performed By: #### U RCX #### [facility] [address] [place] [address] Dr. Marvin Reis MCV 83.5 fL Normal 80.0-94.0 [facility] Comment on above: Performed By: #### U RCX #### [facility] [address] [place] [address] Dr. Marvin Reis METAMYELOCYTE # Normal [facility] Comment on above: Performed By: #### U RCX #### [facility] [address] [address] [address] Marvin Reis METAMYELOCYTE % Normal [facility] Comment on above: Performed By: #### U RCX #### [facility] [address] [address] [address] Marvin Reis MONOM# 0.39 103/ul Normal 0.30-0.80 [facility] Comment on above: Performed By: #### U RCX #### [facility] [address] [place] [address] Dr. Marvin Reis MONOM% 3.0 % Normal 1.7-12.0 [facility] Comment on above: Performed By: #### U RCX #### [facility] [address] [place] [address] Dr. Marvin Reis MPV 10.5 fL Normal 9.5-13.5 [facility] Comment on above: Performed By: #### U RCX #### [facility] [address] [place] [address] Dr. Marvin Reis MYELOCYTE # Normal [facility] Comment on above: Performed By: #### U RCX #### [facility] [address] [place] [address] Dr. Marvin Reis MYELOCYTE % Normal [facility] Comment on above: Performed By: #### U RCX #### [facility] [address] [place] [address] Dr. Marvin Reis NRBC Normal [facility] Comment on above: Performed By: #### U RCX #### [facility] [address] [address] [address] Marvin Reis PLT 96 103/ul Critically low 150-450 [facility] Comment on above: Performed By: #### U RCX #### [facility] [address] [place] [address] Dr. Marvin Reis RBC 4.01 106/ul Critically low 4.70-6.10 [facility] Comment on above: Performed By: #### U RCX #### [facility] [address] [address] [address] Marvin Reis RDW 15.8 % Critically high 11.0-15.0 [facility] Comment on above: Performed By: #### U RCX #### [facility] [address] [address] [address] Marvin Reis SEG # 12.00 103/ul Critically high 1.40-6.50 [facility] Comment on above: Performed By: #### U RCX #### [facility] [address] [address] [address] Marvin Reis SEG % 93.0 % Critically high 43.0-75.0 [facility] Comment on above: Performed By: #### U RCX #### [facility] [address] [address] [address] Marvin Reis WBC 12.9 103/ul Critically high 4.0-11.0 [facility] Comment on above: Performed By: #### U RCX #### [facility] [address] [address] [address] Marvin Reis CRPon 09-24-2022 CRP 8.4 mg/dL Critically high <=1.0 [facility] Comment on above: Performed By: #### U AMIC #### [facility] [address] [address] [address] Marvin Reis LACTATE/LACTIC ACIDon 2021 Lactate [Moles/Vol] 2.2 mmol/L Critically high 0.4-1.9 [facility] Comment on above: Performed By: #### L ACT #### [facility] [address] [address] [address] Marvin Reis PROF 14(COMP METB)on 022 Albumin [Mass/Vol] 2.8 g/dL Critically low 3.4-5.0 [facility] Comment on above: Performed By: #### U AMIC #### [facility] [address] [place] [address] Dr. Marvin Reis Albumin/Globulin [Mass ratio] 0.7 {ratio} Normal [facility] Comment on above: Performed By: #### U AMIC #### [facility] [address] [address] [address] Marvin Reis ALP [Catalytic activity/Vol] 80 U/L Normal 46-116 [facility] Comment on above: Performed By: #### U AMIC #### [facility] [address] [address] [address] Marvin Reis ALT [Catalytic activity/Vol] 20 U/L Normal 16-63 [facility] Comment on above: Performed By: #### U AMIC #### [facility] [address] [address] [address] Marvin Reis Anion gap [Moles/Vol] 12.3 mmol/L Normal [facility] Comment on above: Performed By: #### U AMIC #### [facility] [address] [address] [address] Marvin Reis AST [Catalytic activity/Vol] 17 U/L Normal 15-37 [facility] Comment on above: Performed By: #### U AMIC #### [facility] [address] [address] [address] Marvin Reis Bilirubin [Mass/Vol] 1.0 mg/dL Normal 0.2-1.0 [facility] Comment on above: Performed By: #### U AMIC #### [facility] [address] [address] [address] Marvin Reis Calcium [Mass/Vol] 9.0 mg/dL Normal 8.5-10.1 [facility] Comment on above: Performed By: #### U AMIC #### [facility] [address] [address] [address] Marvin Reis Chloride [Moles/Vol] 106 mmol/L Normal 98-107 [facility] Comment on above: Performed By: #### U AMIC #### [facility] [address] [address] [address] Marvin Reis CO2 [Moles/Vol] 25.8 mmol/L Normal 21.0-32.0 [facility] Comment on above: Performed By: #### U AMIC #### [facility] [address] [address] [address] Marvin Reis Creatinine [Mass/Vol] 1.08 mg/dL Normal 0.70-1.30 [facility] Comment on above: Performed By: #### U AMIC #### [facility] [address] [address] [address] Marvin Reis EGFR-AF SOUTH AFRICAN >60 Normal >=60 [facility] Comment on above: Performed By: #### U AMIC #### [facility] [address] [address] [address] Marvin Reis EGFR-NON AF SOUTH AFRICAN >60 Normal >=60 [facility] Comment on above: Performed By: #### U AMIC #### [facility] [address] [address] [address] Marvin Reis Globulin (S) [Mass/Vol] 3.8 g/dL Normal [facility] Comment on above: Performed By: #### U AMIC #### [facility] [address] [address] [address] Marvin Reis Glucose [Mass/Vol] 117 mg/dL Critically high 74-106 [facility] Comment on above: Performed By: #### U AMIC #### [facility] [address] [address] [address] Marvin Reis Potassium [Moles/Vol] 4.1 mmol/L Normal 3.5-5.1 [facility] Comment on above: Performed By: #### U AMIC #### [facility] [address] [address] [address] Marvin Reis Protein [Mass/Vol] 6.6 g/dL Normal 6.4-8.2 [facility] Comment on above: Performed By: #### U AMIC #### [facility] [address] [address] [address] Marvin Reis Sodium [Moles/Vol] 140 mmol/L Normal 136-145 [facility] Comment on above: Performed By: #### U AMIC #### [facility] [address] [address] [address] Marvin Reis Urea nitrogen [Mass/Vol] 23.0 mg/dL Critically high 7.0-18.0 [facility] Comment on above: Performed By: #### U AMIC #### [facility] [address] [address] [address] Marvin Reis Urea nitrogen/Creatinine [Mass ratio] 21.3 mg/mg Normal [facility] Comment on above: Performed By: #### U AMIC #### [facility] [address] [address] [address] Marvin Reis SED RATE [facility] 2021 SED RATE 51 mm/hr Critically high <=20 [facility] Comment on above: Performed By: #### U RCX #### [facility] [address] [place] [address] Dr. Marvin Reis UA RANDOMon 09-24-2022 Bilirubin Ql (U) Negative Normal NEGATIVE [facility] Comment on above: Performed By: #### U AMIC #### [facility] [address] [address] [address] Marvin Reis Clarity (U) CLEAR Normal CLEAR [facility] Comment on above: Performed By: #### U AMIC #### [facility] [address] [address] [address] Marvin Reis Color (U) LT. YELLOW Normal YELLOW [facility] Comment on above: Performed By: #### U AMIC #### [facility] [address] [address] [address] Marvin Reis Glucose Ql (U) Negative Normal NEGATIVE [facility] Comment on above: Performed By: #### U AMIC #### [facility] [address] [address] [address] Marvin Reis Hemoglobin Ql (U) LARGE Abnormal NEGATIVE [facility] Comment on above: Performed By: #### U AMIC #### [facility] [address] [address] [address] Marvin Reis Ketones Ql (U) Negative Normal NEGATIVE [facility] Comment on above: Performed By: #### U AMIC #### [facility] [address] [address] [address] Marvin Reis LEUKOCYTES MODERATE Abnormal NEGATIVE [facility] Comment on above: Performed By: #### U AMIC #### [facility] [address] [address] [address] Marvin Reis Nitrite Ql (U) Negative Normal NEGATIVE [facility] Comment on above: Performed By: #### U AMIC #### [facility] [address] [address] [address] Marvin Reis pH (U) 5.5 [pH] Normal 5-9 [facility] Comment on above: Performed By: #### U AMIC #### [facility] [address] [place] [address] Dr. Marvin Reis SPEC GRAVITY 1.020 Normal 1.005-<=1.[address] [place] [address] Comment on above: Performed By: #### U AMIC #### [facility] [address] [place] [address] Dr. Marvin Reis UA PROTEIN Negative Normal NEGATIVE/ TRACE [facility] Comment on above: Performed By: #### U AMIC #### [facility] [address] [address] [address] Marvin Reis Urobilinogen Qn (U) 0.2 {Robbie'U}/dL Normal 0.2 - 1. 0 [facility] Comment on above: Performed By: #### U AMIC #### [facility] [address] [place] [address] Dr. Marvin Reis CULTURE URINEon 09-13-2022 CULTURE [...] F Oxacillin >=4 R F Normal [facility] Comment on above: Performed By: #### U RCX #### [facility] [address] [place] [address] Dr. Marvin Reis UA RANDOM W/MICROSCOPICon BACTERIA TRACE Abnormal NONE SEEN [facility] Comment on above: Performed By: #### U AMIC #### [facility] [address] [place] [address] Dr. Marvin Reis Bilirubin Ql (U) Negative Normal NEGATIVE [facility] Comment on above: Performed By: #### U AMIC #### [facility] [address] [place] [address] Dr. Marvin Reis CAST NONE SEEN Normal NONE SEEN [facility] Comment on above: Performed By: #### U AMIC #### [facility] [address] [place] [address] Dr. Marvin Reis Clarity (U) CLEAR Normal CLEAR [facility] Comment on above: Performed By: #### U AMIC #### [facility] [address] [address] [address] Marvin Reis Color (U) LT. YELLOW Normal YELLOW [facility] Comment on above: Performed By: #### U AMIC #### [facility] [address] [place] [address] Dr. Marvin Reis Crystals LM Nom (Urine sed) NONE SEEN Normal NONE SEEN [facility] Comment on above: Performed By: #### U AMIC #### [facility] [address] [address] [address] Marvin Reis Epithelial cells LM Ql (Urine sed) FEW Abnormal NONE SEEN /RARE [facility] Comment on above: Performed By: #### U AMIC #### [facility] [address] [place] [address] Dr. Marvin Reis Glucose Ql (U) Negative Normal NEGATIVE [facility] Comment on above: Performed By: #### U AMIC #### [facility] [address] [address] [address] Marvin Reis Hemoglobin Ql (U) Negative Normal NEGATIVE [facility] Comment on above: Performed By: #### U AMIC #### [facility] [address] [address] [address] Marvin Reis Ketones Ql (U) Negative Normal NEGATIVE [facility] Comment on above: Performed By: #### U AMIC #### [facility] [address] [address] [address] Marvin Reis LEUKOCYTES LARGE Abnormal NEGATIVE [facility] Comment on above: Performed By: #### U AMIC #### [facility] [address] [address] [address] Marvin Reis MUCOUS NONE SEEN Normal NONE SEEN [facility] Comment on above: Performed By: #### U AMIC #### [facility] [address] [address] [address] Marvin Reis Nitrite Ql (U) Negative Normal NEGATIVE [facility] Comment on above: Performed By: #### U AMIC #### [facility] [address] [address] [address] Marvin Reis pH (U) 5.5 [pH] Normal 5-9 [facility] Comment on above: Performed By: #### U AMIC #### [facility] [address] [address] [address] Marvin Reis RBC 0-2 Normal 0-2 [facility] Comment on above: Performed By: #### U AMIC #### [facility] [address] [address] [address] Marvin Reis SPEC GRAVITY 1.025 Normal 1.005-<=1.0 25 [facility] Comment on above: Performed By: #### U AMIC #### [facility] [address] [address] [address] Marvin Reis UA PROTEIN Negative Normal NEGATIVE/ TRACE [facility] Comment on above: Performed By: #### U AMIC #### [facility] [address] [place] [address] Dr. Marvin Reis Urobilinogen Qn (U) 0.2 {Robbie'U}/dL Normal 0.2 - 1. 0 [facility] Comment on above: Performed By: #### U AMIC #### [facility] [address] [place] [address] Dr. Marvin Reis WBC 10-20 Abnormal NONE SEEN [facility] Comment on above: Performed By: #### U AMIC #### [facility] [address] [place] [address] Dr. Marvin Reis CULTURE URINEon 08-17-2022 CULTURE [...] Trimethoprim/Sulfamethoxazo le <=20 S F Normal [facility] Comment on above: Performed By: #### U RCX #### [facility] [address] [place] [address] Dr. Marvin Reis UA RANDOM W/MICROSCOPICon BACTERIA MODERATE Abnormal NONE SEEN [facility] Comment on above: Performed By: #### U RCX #### [facility] [address] [place] [address] Dr. Marvin Reis Bilirubin Ql (U) Negative Normal NEGATIVE [facility] Comment on above: Performed By: #### U RCX #### [facility] [address] [place] [address] Dr. Marvin Reis CAST NONE SEEN Normal NONE SEEN [facility] Comment on above: Performed By: #### U RCX #### [facility] [address] [place] [address] Dr. Marvin Reis Clarity (U) SL CLOUDY Abnormal CLEAR [facility] Comment on above: Performed By: #### U RCX #### [facility] [address] [address] [address] Marvin Reis Color (U) LT. YELLOW Normal YELLOW [facility] Comment on above: Performed By: #### U RCX #### [facility] [address] [place] [address] Dr. Marvin Reis Crystals LM Nom (Urine sed) NONE SEEN Normal NONE SEEN [facility] Comment on above: Performed By: #### U RCX #### [facility] [address] [address] [address] Marvin Reis Epithelial cells LM Ql (Urine sed) RARE Normal NONE SEEN /RARE [facility] Comment on above: Performed By: #### U RCX #### [facility] [address] [place] [address] Dr. Marvin Reis Glucose Ql (U) Negative Normal NEGATIVE [facility] Comment on above: Performed By: #### U RCX #### [facility] [address] [place] [address] Dr. Marvin Reis Hemoglobin Ql (U) SMALL Abnormal NEGATIVE [facility] Comment on above: Performed By: #### U RCX #### [facility] [address] [place] [address] Dr. Marvin Reis Ketones Ql (U) Negative Normal NEGATIVE [facility] Comment on above: Performed By: #### U RCX #### [facility] [address] [place] [address] Dr. Marvin Reis LEUKOCYTES MODERATE Abnormal NEGATIVE [facility] Comment on above: Performed By: #### U RCX #### [facility] [address] [place] [address] Dr. Marvin Reis MUCOUS NONE SEEN Normal NONE SEEN [facility] Comment on above: Performed By: #### U RCX #### [facility] [address] [place] [address] Dr. Marivn Reis Nitrite Ql (U) Positive Abnormal NEGATIVE [facility] Comment on above: Performed By: #### U RCX #### [facility] [address] [place] [address] Dr. Marvin Reis pH (U) 6.0 [pH] Normal 5-9 [facility] Comment on above: Performed By: #### U RCX #### [facility] [address] [place] [address] Dr. Marvin Reis RBC 0-2 Normal 0-2 [facility] Comment on above: Performed By: #### U RCX #### [facility] [address] [address] [address] Marvin Reis SPEC GRAVITY 1.015 Normal 1.005-<=1.0 25 [facility] Comment on above: Performed By: #### U RCX #### [facility] [address] [place] [address] Dr. Marvin Reis UA PROTEIN Negative Normal NEGATIVE/ TRACE [facility] Comment on above: Performed By: #### U RCX #### [facility] [address] [place] [address] Dr. Marvin Reis Urobilinogen Qn (U) 0.2 {Robbie'U}/dL Normal 0.2 - 1. 0 [facility] Comment on above: Performed By: #### U RCX #### [facility] [address] [place] [address] Dr. Marvin Reis WBC 10-20 Abnormal NONE SEEN [facility] Comment on above: Performed By: #### U RCX #### [facility] [address] [place] [address] Dr. Marvin Reis CULTURE URINEon 08-02-2022 CULTURE [...] Trimethoprim/Sulfamethoxazo le <=20 S F Normal [facility] Comment on above: Performed By: #### U RCX #### [facility] [address] [address] [address] Marvin Reis UA RANDOM W/MICROSCOPICon BACTERIA MODERATE Abnormal NONE SEEN [facility] Comment on above: Performed By: #### U AMIC #### [facility] [address] [address] [address] Marvin Reis Bilirubin Ql (U) Negative Normal NEGATIVE [facility] Comment on above: Performed By: #### U AMIC #### [facility] [address] [address] [address] Marvin Reis CAST NONE SEEN Normal NONE SEEN [facility] Comment on above: Performed By: #### U AMIC #### [facility] [address] [address] [address] Marvin Reis Clarity (U) SL CLOUDY Abnormal CLEAR [facility] Comment on above: Performed By: #### U AMIC #### [facility] [address] [address] [address] Marvin Reis Color (U) LT. YELLOW Normal YELLOW [facility] Comment on above: Performed By: #### U AMIC #### [facility] [address] [address] [address] Marvin Reis Crystals LM Nom (Urine sed) NONE SEEN Normal NONE SEEN [facility] Comment on above: Performed By: #### U AMIC #### [facility] [address] [address] [address] Marvin Reis Epithelial cells LM Ql (Urine sed) NONE SEEN Normal NONE SEEN /RARE [facility] Comment on above: Performed By: #### U AMIC #### [facility] [address] [address] [address] Marvin Reis Glucose Ql (U) Negative Normal NEGATIVE [facility] Comment on above: Performed By: #### U AMIC #### [facility] [address] [address] [address] Marvin Reis Hemoglobin Ql (U) TRACE-INTACT Abnormal NEGATIVE [facility] Comment on above: Performed By: #### U AMIC #### [facility] [address] [address] [address] Marvin Reis Ketones Ql (U) Negative Normal NEGATIVE [facility] Comment on above: Performed By: #### U AMIC #### [facility] [address] [place] [address] Dr. Marvin Reis LEUKOCYTES MODERATE Abnormal NEGATIVE [facility] Comment on above: Performed By: #### U AMIC #### [facility] [address] [address] [address] Marvin Reis MUCOUS NONE SEEN Normal NONE SEEN [facility] Comment on above: Performed By: #### U AMIC #### [facility] [address] [place] [address] Dr. Marvin Reis Nitrite Ql (U) Positive Abnormal NEGATIVE [facility] Comment on above: Performed By: #### U AMIC #### [facility] [address] [place] [address] Dr. Marvin Reis pH (U) 6.0 [pH] Normal 5-9 [facility] Comment on above: Performed By: #### U AMIC #### [facility] [address] [place] [address] Dr. Marvin Reis RBC 0-2 Normal 0-2 [facility] Comment on above: Performed By: #### U AMIC #### [facility] [address] [place] [address] Dr. Marvin Reis SPEC GRAVITY 1.015 Normal 1.005-<=1.0 25 [facility] Comment on above: Performed By: #### U AMIC #### [facility] [address] [place] [address] Dr. Marvin Reis UA PROTEIN Negative Normal NEGATIVE/ TRACE [facility] Comment on above: Performed By: #### U AMIC #### [facility] [address] [place] [address] Dr. Marvin Reis Urobilinogen Qn (U) 0.2 {Robbie'U}/dL Normal 0.2 - 1. 0 [facility] Comment on above: Performed By: #### U AMIC #### [facility] [address] [address] [address] Marvin Reis WBC 20-50 Abnormal NONE SEEN [facility] Comment on above: Performed By: #### U AMIC #### [facility] [address] [place] [address] Dr. Marvin Reis CULTURE URINEon 06-27-2022 CULTURE [...] F Oxacillin >=4 R F Normal [facility] Comment on above: Performed By: #### U AMIC #### [facility] [address] [place] [address] Dr. Marvin Reis UA RANDOM W/MICROSCOPICon BACTERIA LARGE Abnormal NONE SEEN [facility] Comment on above: Performed By: #### U RCX #### [facility] [address] [place] [address] Dr. Marvin Reis Bilirubin Ql (U) Negative Normal NEGATIVE [facility] Comment on above: Performed By: #### U RCX #### [facility] [address] [place] [address] Dr. Marvin Reis CAST NONE SEEN Normal NONE SEEN [facility] Comment on above: Performed By: #### U RCX #### [facility] [address] [place] [address] Dr. Marvin Reis Clarity (U) CLEAR Normal CLEAR [facility] Comment on above: Performed By: #### U RCX #### [facility] [address] [place] [address] Dr. Marvin Reis Color (U) LT. YELLOW Normal YELLOW [facility] Comment on above: Performed By: #### U RCX #### [facility] [address] [address] [address] Marvin Reis Crystals LM Nom (Urine sed) NONE SEEN Normal NONE SEEN [facility] Comment on above: Performed By: #### U RCX #### [facility] [address] [address] [address] Marvin Reis Epithelial cells LM Ql (Urine sed) FEW Abnormal NONE SEEN /RARE [facility] Comment on above: Performed By: #### U RCX #### [facility] [address] [address] [address] Marvin Reis Glucose Ql (U) Negative Normal NEGATIVE [facility] Comment on above: Performed By: #### U RCX #### [facility] [address] [place] [address] Dr. Marvin Reis Hemoglobin Ql (U) TRACE-INTACT Abnormal NEGATIVE [facility] Comment on above: Performed By: #### U RCX #### [facility] [address] [address] [address] Marvin Reis Ketones Ql (U) Negative Normal NEGATIVE [facility] Comment on above: Performed By: #### U RCX #### [facility] [address] [address] [address] Marvin Reis LEUKOCYTES LARGE Abnormal NEGATIVE [facility] Comment on above: Performed By: #### U RCX #### [facility] [address] [address] [address] Marvin Reis MUCOUS NONE SEEN Normal NONE SEEN [facility] Comment on above: Performed By: #### U RCX #### [facility] [address] [address] [address] Marvin Reis Nitrite Ql (U) Positive Abnormal NEGATIVE [facility] Comment on above: Performed By: #### U RCX #### [facility] [address] [place] [address] Dr. Marvin Reis pH (U) 5.5 [pH] Normal 5-9 [facility] Comment on above: Performed By: #### U RCX #### [facility] [address] [address] [address] Marvin Reis RBC 2-5 Abnormal 0-2 [facility] Comment on above: Performed By: #### U RCX #### [facility] [address] [address] [address] Marvin Reis SPEC GRAVITY 1.015 Normal 1.005-<=1.[address] [place] [address] Comment on above: Performed By: #### U RCX #### [facility] [address] [address] [address] Marvin Reis UA PROTEIN Negative Normal NEGATIVE/ TRACE [facility] Comment on above: Performed By: #### U RCX #### [facility] [address] [place] [address] Dr. Marvin Reis Urobilinogen Qn (U) 0.2 {Robbie'U}/dL Normal 0.2 - 1. 0 [facility] Comment on above: Performed By: #### U RCX #### [facility] [address] [address] [address] Marvin Reis WBC (U) [#/Vol] /uL Abnormal NONE SEEN [facility] Comment on above: Performed By: #### U RCX #### [facility] [address] [place] [address] Dr. Marvin Reis CULTURE URINEon 05-27-2022 CULTURE [...] F Oxacillin >=4 R F Normal [facility] Comment on above: Performed By: #### U RCX #### [facility] [address] [place] [address] Dr. Marvin Reis UA RANDOM W/MICROSCOPICon BACTERIA MODERATE Abnormal NONE SEEN [facility] Comment on above: Performed By: #### U RCX #### [facility] [address] [place] [address] Dr. Marvin Reis Bilirubin Ql (U) Negative Normal NEGATIVE [facility] Comment on above: Performed By: #### U RCX #### [facility] [address] [place] [address] Dr. Marvin Reis CAST NONE SEEN Normal NONE SEEN [facility] Comment on above: Performed By: #### U RCX #### [facility] [address] [place] [address] Dr. Marvin Reis Clarity (U) SL CLOUDY Abnormal CLEAR [facility] Comment on above: Performed By: #### U RCX #### [facility] [address] [place] [address] Dr. Marvin Reis Color (U) LT. YELLOW Normal YELLOW [facility] Comment on above: Performed By: #### U RCX #### [facility] [address] [place] [address] Dr. Marvin Reis Crystals LM Nom (Urine sed) NONE SEEN Normal NONE SEEN [facility] Comment on above: Performed By: #### U RCX #### [facility] [address] [place] [address] Dr. Marvin Reis Epithelial cells LM Ql (Urine sed) FEW Abnormal NONE SEEN /RARE [facility] Comment on above: Performed By: #### U RCX #### [facility] [address] [place] [address] Dr. Marvin Reis Glucose Ql (U) Negative Normal NEGATIVE [facility] Comment on above: Performed By: #### U RCX #### [facility] [address] [place] [address] Dr. Marvin Reis Hemoglobin Ql (U) SMALL Abnormal NEGATIVE [facility] Comment on above: Performed By: #### U RCX #### [facility] [address] [address] [address] Marvin Reis Ketones Ql (U) Negative Normal NEGATIVE [facility] Comment on above: Performed By: #### U RCX #### [facility] [address] [address] [address] Marvin Reis LEUKOCYTES LARGE Abnormal NEGATIVE [facility] Comment on above: Performed By: #### U RCX #### [facility] [address] [address] [address] Marvin Reis MUCOUS TRACE Abnormal NONE SEEN [facility] Comment on above: Performed By: #### U RCX #### [facility] [address] [address] [address] Marvin Reis Nitrite Ql (U) Negative Normal NEGATIVE [facility] Comment on above: Performed By: #### U RCX #### [facility] [address] [address] [address] Marvin Reis pH (U) 6.0 [pH] Normal 5-9 [facility] Comment on above: Performed By: #### U RCX #### [facility] [address] [place] [address] Dr. Marvin Reis RBC 2-5 Abnormal 0-2 [facility] Comment on above: Performed By: #### U RCX #### [facility] [address] [address] [address] Marvin Reis SPEC GRAVITY 1.010 Normal 1.005-<=1.0 25 [facility] Comment on above: Performed By: #### U RCX #### [facility] [address] [address] [address] Marvin Reis UA PROTEIN Negative Normal NEGATIVE/ TRACE [facility] Comment on above: Performed By: #### U RCX #### [facility] [address] [place] [address] Dr. Marvin Reis Urobilinogen Qn (U) 0.2 {Robbie'U}/dL Normal 0.2 - 1. 0 [facility] Comment on above: Performed By: #### U RCX #### [facility] [address] [address] [address] Marvin Reis WBC 50-75 Abnormal NONE SEEN [facility] Comment on above: Performed By: #### U RCX #### [facility] [address] [address] [address] Marvin Reis CULTURE URINEon 04-18-2022 CULTURE [...] F Oxacillin >=4 R F Normal [facility] Comment on above: Performed By: #### U RCX #### [facility] [address] [place] [address] Dr. Marvin Reis UA RANDOM W/MICROSCOPICon BACTERIA TRACE Abnormal NONE SEEN [facility] Comment on above: Performed By: #### U AMIC #### [facility] [address] [place] [address] Dr. Marvin Reis Bilirubin Ql (U) Negative Normal NEGATIVE [facility] Comment on above: Performed By: #### U AMIC #### [facility] [address] [place] [address] Dr. Marvin Reis CAST NONE SEEN Normal NONE SEEN [facility] Comment on above: Performed By: #### U AMIC #### [facility] [address] [place] [address] Dr. Marvin Reis Clarity (U) CLEAR Normal CLEAR [facility] Comment on above: Performed By: #### U AMIC #### [facility] [address] [address] [address] Marvin Reis Color (U) LT. YELLOW Normal YELLOW [facility] Comment on above: Performed By: #### U AMIC #### [facility] [address] [address] [address] Marvin Reis Crystals LM Nom (Urine sed) NONE SEEN Normal NONE SEEN [facility] Comment on above: Performed By: #### U AMIC #### [facility] [address] [address] [address] Marvin Reis Epithelial cells LM Ql (Urine sed) FEW Abnormal NONE SEEN /RARE [facility] Comment on above: Performed By: #### U AMIC #### [facility] [address] [place] [address] Dr. Marvin Reis Glucose Ql (U) Negative Normal NEGATIVE [facility] Comment on above: Performed By: #### U AMIC #### [facility] [address] [place] [address] Dr. Marvin Reis Hemoglobin Ql (U) TRACE-INTACT Abnormal NEGATIVE [facility] Comment on above: Performed By: #### U AMIC #### [facility] [address] [place] [address] Dr. Marvin Reis Ketones Ql (U) Negative Normal NEGATIVE [facility] Comment on above: Performed By: #### U AMIC #### [facility] [address] [address] [address] Marvin Reis LEUKOCYTES SMALL Abnormal NEGATIVE [facility] Comment on above: Performed By: #### U AMIC #### [facility] [address] [address] [address] Marvin Reis MUCOUS NONE SEEN Normal NONE SEEN [facility] Comment on above: Performed By: #### U AMIC #### [facility] [address] [place] [address] Dr. Marvin Reis Nitrite Ql (U) Negative Normal NEGATIVE [facility] Comment on above: Performed By: #### U AMIC #### [facility] [address] [address] [address] Marvin Reis pH (U) 6.0 [pH] Normal 5-9 [facility] Comment on above: Performed By: #### U AMIC #### [facility] [address] [address] [address] Marvin Reis RBC 0-2 Normal 0-2 [facility] Comment on above: Performed By: #### U AMIC #### [facility] [address] [place] [address] Dr. Marvin Reis SPEC GRAVITY 1.010 Normal 1.005-<=1.0 25 [facility] Comment on above: Performed By: #### U AMIC #### [facility] [address] [place] [address] Dr. Marvin Reis UA PROTEIN Negative Normal NEGATIVE/ TRACE [facility] Comment on above: Performed By: #### U AMIC #### [facility] [address] [address] [address] Marvin Reis Urobilinogen Qn (U) 0.2 {Robbie'U}/dL Normal 0.2 - 1. 0 [facility] Comment on above: Performed By: #### U AMIC #### [facility] [address] [place] [address] Dr. Marvin Reis WBC 2-5 Abnormal NONE SEEN [facility] Comment on above: Performed By: #### U AMIC #### [facility] [address] [place] [address] Dr. Marvin Reis CULTURE URINEon 03-27-2022 CULTURE [...] Trimethoprim/Sulfamethoxazo le >=320 R F Normal [facility] Comment on above: Performed By: #### U RCX #### [facility] [address] [place] [address] Dr. Marvin Reis UA RANDOM W/MICROSCOPICon BACTERIA TRACE Abnormal NONE SEEN [facility] Comment on above: Performed By: #### U RCX #### [facility] [address] [place] [address] Dr. Marvin Reis Bilirubin Ql (U) Negative Normal NEGATIVE [facility] Comment on above: Performed By: #### U RCX #### [facility] [address] [place] [address] Dr. Marvin Reis CAST NONE SEEN Normal NONE SEEN [facility] Comment on above: Performed By: #### U RCX #### [facility] [address] [place] [address] Dr. Marvin Reis Clarity (U) CLEAR Normal CLEAR [facility] Comment on above: Performed By: #### U RCX #### [facility] [address] [place] [address] Dr. Marvin Reis Color (U) LT. YELLOW Normal YELLOW [facility] Comment on above: Performed By: #### U RCX #### [facility] [address] [address] [address] Marvin Ries Crystals LM Nom (Urine sed) NONE SEEN Normal NONE SEEN [facility] Comment on above: Performed By: #### U RCX #### [facility] [address] [place] [address] Dr. Marvin Reis Epithelial cells LM Ql (Urine sed) FEW Abnormal NONE SEEN /RARE [facility] Comment on above: Performed By: #### U RCX #### [facility] [address] [place] [address] Dr. Marvin Reis Glucose Ql (U) Negative Normal NEGATIVE [facility] Comment on above: Performed By: #### U RCX #### [facility] [address] [address] [address] Marvin Reis Hemoglobin Ql (U) SMALL Abnormal NEGATIVE [facility] Comment on above: Performed By: #### U RCX #### [facility] [address] [place] [address] Dr. Marvin Reis Ketones Ql (U) Negative Normal NEGATIVE [facility] Comment on above: Performed By: #### U RCX #### [facility] [address] [address] [address] Marvin Reis LEUKOCYTES MODERATE Abnormal NEGATIVE [facility] Comment on above: Performed By: #### U RCX #### [facility] [address] [place] [address] Dr. Marvin Reis MUCOUS NONE SEEN Normal NONE SEEN [facility] Comment on above: Performed By: #### U RCX #### [facility] [address] [address] [address] Marvin Reis Nitrite Ql (U) Negative Normal NEGATIVE [facility] Comment on above: Performed By: #### U RCX #### [facility] [address] [place] [address] Dr. Marvin Reis pH (U) 5.5 [pH] Normal 5-9 [facility] Comment on above: Performed By: #### U RCX #### [facility] [address] [place] [address] Dr. Marvin Reis RBC NONE SEEN Abnormal 0-2 [facility] Comment on above: Performed By: #### U RCX #### [facility] [address] [place] [address] Dr. Marvin Reis SPEC GRAVITY 1.015 Normal 1.005-<=1.0 25 [facility] Comment on above: Performed By: #### U RCX #### [facility] [address] [place] [address] Dr. Marvin Reis UA PROTEIN Negative Normal NEGATIVE/ TRACE [facility] Comment on above: Performed By: #### U RCX #### [facility] [address] [place] [address] Dr. Marvin Reis Urobilinogen Qn (U) 0.2 {Robbie'U}/dL Normal 0.2 - 1. 0 [facility] Comment on above: Performed By: #### U RCX #### [facility] [address] [place] [address] Dr. Marvin Reis WBC 20-50 Abnormal NONE SEEN [facility] Comment on above: Performed By: #### U RCX #### [facility] [address] [place] [address] Dr. Marvin Reis YEAST PRESENT Abnormal NONE SEEN [facility] Comment on above: Performed By: #### U RCX #### [facility] [address] [place] [address] Dr. Marvin Reis CULTURE URINEon 03-18-2022 CULTURE URINE Culture Observations : No growth Normal [facility] Comment on above: Performed By: #### U RCX #### [facility] [address] [place] [address] Dr. Marvin Reis UA RANDOM W/MICROSCOPICon BACTERIA NONE SEEN Normal NONE SEEN [facility] Comment on above: Performed By: #### U AMIC #### [facility] [address] [place] [address] Dr. Marvin Reis Bilirubin Ql (U) Negative Normal NEGATIVE [facility] Comment on above: Performed By: #### U AMIC #### [facility] [address] [place] [address] Dr. Marvin Reis CAST NONE SEEN Normal NONE SEEN [facility] Comment on above: Performed By: #### U AMIC #### [facility] [address] [place] [address] Dr. Marvin Reis Clarity (U) CLOUDY Abnormal CLEAR [facility] Comment on above: Performed By: #### U AMIC #### [facility] [address] [place] [address] Dr. Marvin Reis Color (U) LT. YELLOW Normal YELLOW [facility] Comment on above: Performed By: #### U AMIC #### [facility] [address] [address] [address] Marvin Reis Crystals LM Nom (Urine sed) NONE SEEN Normal NONE SEEN [facility] Comment on above: Performed By: #### U AMIC #### [facility] [address] [address] [address] Marvin Reis Epithelial cells LM Ql (Urine sed) RARE Normal NONE SEEN /RARE [facility] Comment on above: Performed By: #### U AMIC #### [facility] [address] [address] [address] Marvin Reis Glucose Ql (U) Negative Normal NEGATIVE [facility] Comment on above: Performed By: #### U AMIC #### [facility] [address] [address] [address] Marvin Reis Hemoglobin Ql (U) TRACE-INTACT Abnormal NEGATIVE [facility] Comment on above: Performed By: #### U AMIC #### [facility] [address] [address] [address] Marvin Reis Ketones Ql (U) Negative Normal NEGATIVE [facility] Comment on above: Performed By: #### U AMIC #### [facility] [address] [address] [address] Marvin Reis LEUKOCYTES MODERATE Abnormal NEGATIVE [facility] Comment on above: Performed By: #### U AMIC #### [facility] [address] [address] [address] Marvin Reis MUCOUS NONE SEEN Normal NONE SEEN [facility] Comment on above: Performed By: #### U AMIC #### [facility] [address] [address] [address] Marvin Reis Nitrite Ql (U) Negative Normal NEGATIVE [facility] Comment on above: Performed By: #### U AMIC #### [facility] [address] [place] [address] Dr. Marvin Reis pH (U) 6.0 [pH] Normal 5-9 [facility] Comment on above: Performed By: #### U AMIC #### [facility] [address] [place], [place] [address] Dr. Marvin Reis RBC NONE SEEN Abnormal 0-2 [facility] Comment on above: Performed By: #### U AMIC #### [facility] [address] [place] [address] Dr. Marvin Reis SPEC GRAVITY 1.015 Normal 1.005-<=1.0 25 [facility] Comment on above: Performed By: #### U AMIC #### [facility] [address] [place] [address] Dr. Marvin Reis UA PROTEIN Negative Normal NEGATIVE/ TRACE [facility] Comment on above: Performed By: #### U AMIC #### [facility] [address] [place] [address] Dr. Marvin Reis Urobilinogen Qn (U) 0.2 {Robbie'U}/dL Normal 0.2 - 1. 0 [facility] Comment on above: Performed By: #### U AMIC #### [facility] [address] [place] [address] Dr. Marvin Reis WBC 10-20 Abnormal NONE SEEN [facility] Comment on above: Performed By: #### U AMIC #### [facility] [address] [place] [address] Dr. Marvin Reis Coding Summary.on 06-21-2020 Coding Summary. CODING DATE: 020 [facility] STATUS: PAYOR: Worker's Compensation ADMIT DX: [...] CphT Date Saved: 06/21/2020 12:[address] [facility] PT - Assessmentson 0 PT - Assessments [id number]:[address] [facility] PT - Orderson 06-20-2020 PT - Orders [id number]#1.00CD:[address] [facility] PT - Workers Compon 06-20-20 PT - Workers Comp [id number]:[address] [facility] Vital Signs Date Time Vital Sign Value Performing Clinician Facility 10-26-2024 19:48-0500 Body temperature 98.01 [degF] Jose Garcia MD Work Phone: [facility] 10-26-2024 19:48-0500 Diastolic blood pressure 65 mm[Hg] Jose Garcia MD Work Phone: [facility] 10-26-2024 19:48-0500 Heart rate 83 /min Jose Garcia MD Work Phone: [facility] 10-26-2024 19:48-0500 Respiratory rate 18 /min Jose Garcia MD Work Phone: [facility] 10-26-2024 19:48-0500 SaO2% (BldA) [Mass fraction] 95 % Jose Garcia MD Work Phone: [facility] 10-26-2024 19:48-0500 Systolic blood pressure 106 mm[Hg] Jose Garcia MD Work Phone: [facility] 10-23-2024 05:00-0500 Body mass index (BMI) [Ratio] 25.5 kg/m2 Jose Garcia MD Work Phone: [facility] 10-23-2024 05:00-0500 Body weight 85.28 kg Jose Garcia MD Work Phone: [facility] 10-22-2024 20:27-0500 Body height 182.9 cm Jose Garcia MD Work Phone: [facility] 10-21-2024 09:44-0500 Body height 165 cm Desire Schilling MD Work Phone: [facility] 10-21-2024 09:44-0500 Body mass index (BMI) [Ratio] 29.82 kg/m2 Desire Schilling MD Work Phone: [facility] 10-21-2024 09:44-0500 Body temperature 97.2 [degF] Desire Schilling MD Work Phone: [facility] 10-21-2024 09:44-0500 Body weight 81.19 kg Desire Schilling MD Work Phone: [facility] 10-21-2024 09:44-0500 Diastolic blood pressure 60 mm[Hg] Desire Schilling MD Work Phone: [facility] 10-21-2024 09:44-0500 Heart rate 58 /min Desire Schilling MD Work Phone: [facility] 10-21-2024 09:44-0500 Respiratory rate 18 /min Desire Schilling MD Work Phone: [facility] 10-21-2024 09:44-0500 SaO2% (BldA) [Mass fraction] 96 % Desire Schilling MD Work Phone: [facility] 10-21-2024 09:44-0500 Systolic blood pressure 112 mm[Hg] Desire Schilling MD Work Phone: [facility] 10-06-2024 00:22-0500 SaO2% (BldA) [Mass fraction] 94 % [facility] Comment on above: Performed By: #### ABG ####[facility] ([id number])[address] [place] [address] 10-04-2024 02:44-0500 SaO2% (BldA) [Mass fraction] 97 % [facility] Comment on above: Performed By: #### ABG ####[facility] ([id number])[address] [place] [address] 10-03-2024 21:37-0500 SaO2% (BldA) [Mass fraction] 100 % [facility] Comment on above: Performed By: #### ABG ####[facility] ([id number])[address] [place] [address] 09-29-2024 17:43-0500 SaO2% (BldA) [Mass fraction] 97 % [facility] Comment on above: Performed By: #### VBG ####[facility] ([id number])[address] [place] [address] 09-29-2024 10:39-0500 SaO2% (BldA) [Mass fraction] 96 % [facility] Comment on above: Performed By: #### VBG ####[facility] ([id number])[address] [place] [address] 09-29-2024 08:12-0500 SaO2% (BldA) [Mass fraction] 96 % [facility] Comment on above: Performed By: #### ABG ####[facility] ([id number])[address] [place] [address] 09-29-2024 04:44-0500 SaO2% (BldA) [Mass fraction] 92 % [facility] Comment on above: Performed By: #### VBG ####[facility] ([id number])[address] [place] [address] 08-25-2024 15:00-0400 SaO2% (BldA) [Mass fraction] 89 % [facility] Comment on above: Performed By: #### ABG ####[facility] ([id number])[address] [place] [address] 08-23-2024 17:04-0400 SaO2% (BldA) [Mass fraction] 95 % [facility] Comment on above: Performed By: #### ICODE ####[facility] ([id number])[address] [place] [address] 08-22-2024 03:32-0400 SaO2% (BldA) [Mass fraction] 99 % [facility] Comment on above: Performed By: #### ABG ####[facility] ([id number])[address] [place] [address] 08-21-2024 20:59-0400 SaO2% (BldA) [Mass fraction] 97 % [facility] Comment on above: Performed By: #### ICODE ####[facility] ([id number])[address] [place] [address] 08-21-2024 15:42-0400 SaO2% (BldA) [Mass fraction] 100 % [facility] Comment on above: Performed By: #### ABG ####[facility] ([id number])[address] [place] [address] 08-21-2024 06:11-0400 SaO2% (BldA) [Mass fraction] 97 % [facility] Comment on above: Performed By: #### ABG ####[facility] ([id number])[address] [facility] [place] [address] 08-20-2024 20:04-0400 SaO2% (BldA) [Mass fraction] 97 % [facility] Comment on above: Performed By: #### ABG ####[facility] ([id number])[address] [facility] [place] [place] [address] 08-20-2024 18:55-0400 SaO2% (BldA) [Mass fraction] 98 % [facility] Comment on above: Performed By: #### ABG ####[facility] ([id number])[address] [place] [address] 08-20-2024 17:14-0400 SaO2% (BldA) [Mass fraction] 92 % [facility] Comment on above: Performed By: #### ABG ####[facility] ([id number])[address] [place] [address] 08-20-2024 13:19-0400 SaO2% (BldA) [Mass fraction] 95 % [facility] Comment on above: Performed By: #### ICODE ####[facility] ([id number])[address] [place] [address] Encounters Encounter Date Encounter Type Care Provider Facility Start: 11-20-2024 End: 11-20-2024 Telephone encounter Torin Tidwell NP Work Phone: [facility] Start: 11-09-2024 End: 11-09-2024 ambulatory COLIN TREVINO [facility] Start: 10-22-2024 End: 10-27-2024 Evaluation and management of inpatient Lamont Delcid DO Work Phone: [facility] Comment on above: Closed displaced com minuted fracture of shaft of left femur, initial encounter ([facility]) (Primary Dx); Stage 5 chronic kidney disease not on chronic dialysis [place] Hyperkalemia Start: 10-21-2024 End: 10-21-2024 Office outpatient new 30 minutes Desire Schilling MD Work Phone: [facility] Comment on above: Subacute osteomyelit is of left foot (CMS-HCC) (Primary Dx); Open wound of heel, left, initial encounter Start: 10-12-2024 End: 10-15-2024 Telephone encounter [facility] Comment on above: Hospital Follow-up ( /) Start: 09-29-[address] [facility] Start: 09-28-2024 End: 10-14-2024 Evaluation and management of inpatient AVIJIT [facility] Start: 09-28-2024 End: 09-28-2024 Telephone encounter Scanning Provider External PH[facility] Start: 09-27-2024 End: 09-27-2024 Documentation procedure Chandrika fields [facility] Start: 09-24-2024 End: 09-24-2024 Telephone encounter Airam GALVANC Work Phone: [facility] Start: 09-24-2024 End: 09-24-20[address] [facility] [facility] Start: 09-24-2024 End: 09-24-2024 Office outpatient visit 25 minutes Airam GALVANC Work Phone: [facility] Comment on above: Anemia in chronic ki dney disease, unspecified CKD stage (Primary Dx); Thrombocytopenia (CMS-HCC); Elevated INR Start: 09-23-2024 End: 09-23-2024 Telephone encounter Airam Pettit PA-C Work Phone: [facility] Start: 09-15-2024 End: 09-15-2024 Telephone encounter Airam GALVANC Work Phone: [facility] Start: 09-15-2024 End: 09-15-2024 ambulatory [facility] Start: 09-13-2024 End: 09-13-2024 Telephone encounter Airam GALVANC Work Phone: [facility] Start: 08-21-2024 ambulatory LAWANDA HOY [facility] Start: 08-20-2024 End: 09-08-2024 Evaluation and management of inpatient CAT [facility] Start: 03-03-2023 End: 03-03-[address] [...] End: 03-25-[address] LAWANDA GROVE . Facility: Start: 03-18-2022 End: 03-18-[address] LAWANDA GROVE . Facility: Procedures Date Procedure Procedure Detail Performing Clinician Start: 10-26-2024 Comprehensive metabo lic panel Alan Powell [employer] WORKER[employer]NESS AND WELLNESS INSTRUCTOR Work Phone: Start: 10-25-2024 Creatine kinase total R miqijonathan Garcia MD Work Phone: Start: 10-25-2024 Mri lower extrem oth /thn jt w/o contr matrl Jim Mckeon PATasneemC Work Phone: Start: 10-25-2024 Calcium ionized Homer Dubose MD Work Phone: Start: 10-25-2024 Comprehensive metabo lic panel Alan Powell [employer] WORKER-FITNESS AND WELLNESS INSTRUCTOR Work Phone: Start: 10-24-2024 End: 10-24-2024 Comprehensive metabolic panel Alan Powell [employer] WORKER-FITNESS AND WELLNESS INSTRUCTOR Work Phone: Start: 10-24-2024 Blood count hematocrit Homer Dubose MD Work Phone: Start: 10-23-2024 End: 10-23-2024 TRANSFUSE RED BLOOD CELLS Tamiak Navarro Kaylie GR[employer]ITE WORKER-FITNESS AND WELLNESS INSTRUCTOR Work Phone: Start: 10-23-2024 Blood count hematocrit Homer Dubose MD Work Phone: Start: 10-23-2024 End: 10-23-2024 TRANSFUSE RED BLOOD CELLS Rama Mcfarland GR[employer]ITE WORKER-FITNESS AND WELLNESS INSTRUCTOR Work Phone: Start: 10-23-2024 Potassium serum plasma/whole blood Alan Powell GR[employer]ITE WORKER-FITNESS AND WELLNESS INSTRUCTOR Work Phone: Start: 10-23-2024 Blood occult peroxid ase actv qual feces 1-3 spec Alan Powell GR[employer] WORKER-FITNESS AND WELLNESS INSTRUCTOR Work Phone: Start: 10-23-2024 Gluc bld gluc mntr d ev cleared fda spec home use Homer Dubose MD Work Phone: Start: 10-23-2024 PM ED SPLINT APPLICATION Lamont Delcid DO Work Phone: Start: 10-23-2024 Comprehensive metabo lic panel Alan Kaley Edgarviktoria [employer] WORKER-FITNESS AND WELLNESS INSTRUCTOR Work Phone: Start: 10-22-2024 Antibody screen Jose Garcia MD Work Phone: Start: 10-22-2024 End: 10-22-2024 Radiologic examination knee 3 views Lamont Delcid DO Work Phone: Start: 10-22-2024 ANTIBODY ID Lamont Odonnell marco DO Work Phone: Start: 10-22-2024 Blood typing serologic abo Lamont Delcid DO Work Phone: Start: 10-22-2024 REPEATED ABORH Lamont Delcid DO Work Phone: Start: 10-22-2024 Comprehensive metabo lic panel Lamont Delcid DO Work Phone: Start: 09-29-2024 Adult depression scr eening assessment Mary Anne Jackson Plan of Treatment Date Care Activity Detail Author Start: 10-23-2025 Screening for malign ant neoplasm of colon [facility] Start: 10-06-2025 Adult BMI Screening Adult BMI Screen ing [facility] Start: 10-06-2025 Tobacco Screening Tobacco Screening [facility] Start: 09-29-2025 Depression Screening Depression Scre ening [facility] Start: 09-24-2025 Tobacco Screening Tobacco Screening [facility] Start: 09-08-2025 Adult BMI Screening Adult BMI Screen ing [facility] Start: 09-07-2025 Tobacco Screening Tobacco Screening [facility] Start: 01-14-2025 End: 01-14-2025 Patient encounter procedure 01/14/2025 2:00 PM EDT [facility] [address] [place] [phone] Berenice Mcmahon MD [address] [place] [address], [place] [address] [facility] Start: 12-30-2024 End: 12-30-2024 Telemedicine consultation with patient 12/30/2024 10:30 AM EST Telemedicine [facility] [address] [facility] [address] [place] [phone] Airam Pettit PA-C Kandis [address] [facility] [address] [place] [address] [facility] Start: 11-02-2024 End: 10-26-2025 Basic metabolic 2000 panel - Serum or Plasma Basic Metabolic Panel Lab Routine Hyperkalemia Expected: 11/02/2024 (Approximate), Expires: 10/26/2025 [facility] Work Phone: Comment on above: Expected: 11/02/2024 (Approximate), Expires: 10/26/2025 Start: 10-21-2024 End: 10-21-2024 Patient encounter procedure 10/21/2024 9:50 AM EST Office Visit [facility] [address] [place] [phone] Desire Schilling MD [address], [facility] [address] [place] [address] [facility] Start: 09-24-2024 End: 09-24-2024 Telemedicine consultation with patient 09/24/2024 10:30 AM EST Telemedicine [facility] [address] [facility] [address] [place] [phone] Airam Pettit PA-C Kandis [address] [facility] [address] [place] [address] [facility] Start: 07-04-2024 COVID-19 Vaccine () COVID-19 Vaccine ( season) [facility] Start: 07-04-2024 Influenza vaccination [facility] Start: 2023 Fall Risk Screening Fall [facility] Start: 2023 Pneumococcal Vaccine : 65+ Years (2 of 2 - PPSV23 or PCV20) Pneumococcal Vaccine: 65+ Years (2 of 2 - PPSV23 or PCV20) [facility] Start: 2008 Administration of varicella zoster vaccine Zoster (Shingles) Vaccine (1 of 2) [facility] Start: 1977 DTaP,Tdap and Td Vaccines (1 - Tdap) DTaP,Tdap and Td Vaccines (1 - Tdap) [facility] Start: 1976 Adult BMI Follow Up Plan Adult BMI Follow Up Plan [facility] Start: 1970 Depression Screening Depression Scre ening [facility] Start: 1958 Screening for malign ant neoplasm of colon [facility] Bedside Glucose *Place/Obtain serum glucose if >500(>600 [facility]) per glucometer. Bedside Glucose *Place/Obtain serum glucose if >500(>600 [facility]) per glucometer. Point of Care Testing Routine As Needed for 8 Occurrences starting 10/23/2024 [employer] Comment on above: As Needed for 8 Occu rrences starting 10/23/2024 CBC W Auto Different ial panel - Blood CBC auto differential Lab Routine Lab max of 3 days, Daily, for lab use only until discontinued starting 10/23/2024, 4 completed [employer] Comment on above: Lab max of 3 days, D aily, for lab use only until discontinued starting 10/23/2024, 4 completed CK Total CK Total Lab Rou jose a Weekly until discontinued starting 11/01/2024 [employer] Work Phone: Comment on above: Weekly until discont inued starting 11/01/2024 Comprehensive metabo lic 2000 panel - Serum or Plasma Comprehensive metabolic panel Lab Routine Lab max of 3 days, Daily, for lab use only until discontinued starting 10/23/2024, 4 completed [facility] Comment on above: Lab max of 3 days, D aily, for lab use only until discontinued starting 10/23/2024, 4 completed Magnesium [Mass/volu me] in Serum or Plasma Magnesium Lab Routine Lab max of 3 days, Daily, for lab use only until discontinued starting 10/23/2024, 4 completed [facility] Comment on above: Lab max of 3 days, D aily, for lab use only until discontinued starting 10/23/2024, 4 completed Oxygen Therapy - Maintain SpO2: 90%; *SENIOR POWER SCHEDULER Guidelines for O2: Yes; Document: [email or web address]\epi c\EPIC_Reference\Orders\ Respiratory Care Guidelines\CPG Oxygen 2022.pdf Oxygen Therapy - Maintain SpO2: 90%; *SENIOR POWER SCHEDULER Guidelines for O2: Yes; Document: \[email or web address]\ep ic\EPIC_Reference\Order s\Respiratory Care Guidelines\CPG Oxygen 2022.pdf Respiratory Care Routine As Needed until discontinued starting 10/22/2024 [employer] Work Phone: Comment on above: As Needed until disc ontinued starting 10/22/2024 Immunizations Immunization Date Immunization Notes Care Provider Fa cili 09-18-2024 influenza virus vacc ine, unspecified formulation [facility] 08-23-2022 Influenza Vaccine, Quadrivalent, Adjuvanted [facility] 09-01-2021 Influenza, injectabl e, Madin Mariza Canine Kidney, preservative free, quadrivalent [facility] 01-10-2021 COVID-19 Vaccine, vector-nr, rS-Ad26, PF, 0.5mL [facility] 08-28-2020 Influenza, injectabl e, Madin Lowell Canine Kidney, preservative free, quadrivalent [facility] 08-28-2020 pneumococcal conjuga te vaccine, 13 valent [facility] Payers Date Payer Category Payer Commercial Managed C are - POS [employer] [id number] 2023 Private Health Insurance CLI [id number] 1999 Medicare [id number] 1999 Medicare [id number] 1999 Worker's Comp Other Managed Care [facility] [id number] 1999 Unknown [id number] 1959 Medicare [id number] 1959 Unknown [id number] 1958 Unknown [id number] 2.16.840.1.255101.3.579. 2.593 1958 Unknown [id number] 2.16.840.1.595174.3.579. 2.593 1958 Unknown [id number] 2.16.840.1.337817.3.579. 2.593 1958 Unknown [id number] 2.16.840.1.748602.3.579. 2.593 1958 Unknown [id number] 2.16.840.1.226234.3.579. 2.593 1958 Unknown [id number] 2.16.840.1.536123.3.579. 2.593 1958 Unknown [id number] 2.16.840.1.875662.3.579. 2.593 1958 Unknown [id number] 2.16.840.1.789493.3.579. 2.593 1958 Unknown [id number] 2.16.840.1.138339.3.579. 2.593 1958 Unknown [id number] 2.16.840.1.412322.3.579. 2.593 1958 Unknown [id number] 2.16.840.1.658276.3.579. 2.593 1958 Unknown [id number] 2.16.840.1.128282.3.579. 2.593 1958 Unknown [id number] 2.16.840.1.505570.3.579. 2.593 1958 Unknown [id number] 2.16.840.1.951723.3.579. 2.593 1958 Unknown [id number] 2.16.840.1.748533.3.579. 2.593 1958 Unknown [id number] 2.16.840.1.242494.3.579. 2.593 1958 Unknown [id number] 2.16.840.1.157991.3.579. 2.593 1958 Unknown [id number] 2.16.840.1.713217.3.579. 2.593 1958 Unknown [id number] 2.16.840.1.631457.3.579. 2.593 1958 Unknown [id number] 2.16.840.1.856652.3.579. 2.1286 1958 Unknown [id number] 2.16.840.1.669435.3.579. 2.1286 1958 Unknown [id number] [id number] 1960 Unknown [id number] [id number]. 2.1286 1960 Unknown [id number]. 2.1286 1960 Unknown [id number] [id number]. 2.1286 1960 Unknown [id number] [id number]. 2.1286 1960 Unknown [id number] [id number]. 2.1286 1958 Unknown [id number] [id number]. 2.1286 1960 Unknown [id number] [id number]. 2.1286 1960 Unknown [id number]. 2.1286 Social History Date Type Detail Facility Start: 08-23-2024 Tobacco smoking stat [facility] Never smoked tobacco [facility] Start: 08-23-2024 Tobacco use and exposure Smokeless tobacco non-user [facility] Start: 09-07-2024 End: 09-24-2024 Alcoholic beverage intake Ex-drinker (finding) [facility] Start: 09-07-2024 End: 09-29-2024 History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 integrity is maintained or improved Description: INTERVENTIONS 1. Assess genitourinary system, perineal skin, labs (urinalysis), and history of incontinence to include past management, aggravating, and alleviating factors 2. Keep skin clean and dry 3. Apply skin protectant 4. Develop skin care regimen 5. Provide privacy when changing patients incontinence device to maintain their dignity 6. Consider placing an indwelling catheter 7. Collaborate with interdisciplinary team and initiate plans and interventions as needed Outcome: Adequate for Discharge Problem: Moderate - High Risk Fall Score Description: Patiño Fall Score of =/> 25 or indicated by [facility] Assessment Goal: Patient should be free from fall Description: Interventions: 1. [place] to environment 2. Hourly rounds addressing the 4 P's (Pain, Positioning, Possessions, Potty) 3. Clear area of hazards (spills, clutter, electrical cords, unnecessary equipment) 4. Place equipment (bed & TV controls, call light, phone, urinal) within reach 5. Encourage patient to wear glasses and hearing aides as appropriate 6. Maintain bed in lowest position 7. Lock wheels on bed/wheelchair 8. Provide adequate lighting, including night light 9. Assess need for additional bedding, food/fluids, pain med's prior to sleep/routinely 10. Provide gripper slippers or personal non-skid footwear 11. Teach patient and patient real estate representative to maintain environment for safety and engage in all aspects of fall prevention program 12. Remind patient to call for help before getting out of bed 13. Initiate bed/chair/exit alarms supportive devices as appropriate, (chair wedge, no-skid floor mat, raised edge mattress, hip protectors) 14. Locate patient bed assignment for optimal visualization 15. Evaluate and identify Safe Patient Handling Equipment needs 16. Provide supervision when out of bed or chair 17. Utilize gait belt as needed to assist with ambulation 18. Place adaptive equipment (cane, walker) within reach 19. Request patient real estate representative bring adaptive equipment/mobility aids from home or obtain and provide as needed 20. Consult pharmacy regarding effects of med's affecting mobility, cognition, and alternatives 21. Obtain physician order for PT if risk factors associated with mobility are present 22. Obtain physician order for OT as appropriate 23. Utilize diversional activities 24. Educate patient and patient real estate representative how to maintain a safe environment during visitation times (notify nurse prior to leaving bedside) 25. Consider appropriateness of medical or non-medical lab specialist 26. Set up voiding schedule as appropriate (every 2 hours) Outcome: Adequate for Discharge DISCHARGE PLANNING NOTE Preadmission Screening & Resident Review (PASSR) PASSR completed via the [employer] Electronic Notification System) ODM 1596 (long form) completed and submitted? yes Is a Level II Evaluation required? no SNF notified on CarePort of PASSR completion. yes - Karen Barron 10/26/24 12:11 PM Occupational Therapy Evaluation Discharge Recommendations OT Recommendations : Group Home Facility (versus [facility] care dependent on baseline) SNF/ECF Comments: OT recommends SNF at this time in order to promote maximum independence throughout his daily tasks, including transfers. Per patient at baseline, his spouse would assist with transfers but he is currently requiring assistance from 3 people. 6 Clicks: Daily Activity Putting on and taking off regular lower body clothing?: Total Bathing (including washing, rinsing, drying)?: Total Toileting, which includes using toilet, bedpan or urinal?: Total Putting on and taking off regular upper body clothing?: Total Taking care of personal grooming such as brushing teeth?: Total Eating meals?: Total Scoring Daily Activity Raw Score: 6 CMS G Code Modifier: CN Therapy Plan Need for skilled Occupational Therapy to address deficits in ADL independence and functional mobility due to a status decline resulting from closed displaced comminuted fracture of shaft of L femur. Past Medical History: Diagnosis Date Chronic renal failure, stage 4 (severe) (CMS-HCC) Quadriplegia (CMS-HCC) Past Surgical History: Procedure Laterality Date BOWEL RESECTION COLON SURGERY COLOSTOMY DEBRIDEMENT LEFT HEEL Left 10/07/2024 Performed by David Dumont MD at [facility] ESOPHAGOGASTRODUODENOSCOPY DIAGNOSTIC N/A 09/02/2024 Performed by Maryann Villegas MD at [facility] ESOPHAGOGASTRODUODENOSCOPY DIAGNOSTIC N/A 08/30/2024 Performed by Maryann Villegas MD at [facility] SPINAL FUSION c5 and c6 VENA CAVA FILTER PLACEMENT 1998 No Current Skilled OT: No acute OT goals identified Assessment Patient Assessment Therapy Problem List: Decreased ADL status, Decreased balance, Decreased endurance, Decreased high-level ADLs, Decreased mobility, Decreased safe judgement during ADL Patient Response to Treatment: Tolerated evaluation without adverse reaction Mood/Affect: Appropriate for circumstances Rehab Prognosis: Fair, With continued OT status post acute discharge Visit RN Communication: Yes Medical Record Reviewed: Yes OT Type of Visit: Evaluation Precautions Activity: As tolerated, okay to evaluate Equipment: Slide board, maxi lift, bond, power wheelchair Weight Bearing Status: NWB LLE Telemetry/Rehabilitation Aide: Yes Oxygen Used: None Other: Quadraplegic, L femur fracture Pain Assessment Pain Assessment: 0-10 Pain Score: 10 ( It's nerve pain, 10 plus all the time. ) Home Living Type of Home: House Home Layout: One level, Ramped entrance Stairs to Enter: Ramp Bathroom Shower/Tub: Walk-in shower Bathroom Toilet: (One in each bathroom) Bathroom Equipment: Hand-held shower, Built-in shower seat Bathroom Accessibility: Accessible via wheelchair Home Equipment: Wheelchair-electric, Wheelchair-manual, Hospital bed (Slide board) Prior Function Lives With: Spouse Level of Mobility: Needs assistance with ADLs or functional transfers or gait Homemaking Assistance: Needs assistance Other: Patient's spouse provides total assistance for transfers. He is able to control his power chair with increased time. ADL / IADL Eating Assistance: Total assist Grooming Assistance: Total assist Bathing/Showering Assistance: Total assist Toilet/Commode Assistance: Total assist UE Dressing Assistance: Total assist LE Dressing Assistance: Total assist Other: Assessment of ability to perform ADLs based on clinical judgement/observation on patient's performance with bed mobility and transfer from bed to wheelchair. He required Total Assistance +3. He communicated strategies utilized at home. Patient requiring increased assistance due to LE fracture. Home Management - IADL Other: Assessment of ability to perform ADLs based on clinical judgement/observation on patient's performance with bed mobility and transfer from bed to wheelchair. He required Total Assistance +3. He communicated strategies utilized at home. Patient requiring increased assistance due to LE fracture. Hearing / Speech / Vision Hearing: Within Functional Limits Speech: Within Functional Limits Current Vision: Wears glasses all the time Bed Mobility Supine to Sit: Total assist (+3) Transfers Bed to Chair: Total assist (+3) Gait Other: Patient able to manipulate wheelchair controls with Modified independence. Balance Sitting Balance: Static: Poor Sitting Balance: Dynamic: Poor RUE Assessment: (Baseline limitations, minimal elbow ROM) LUE Assessment: (Baseline limitations, minimal elbow ROM) Activity Tolerance Endurance: Tolerates <30 minutes activity WITHOUT vital sign changes Plan Occupational Therapy Care Plan Occupational Therapy Care Plan (Active) There are no active problems. Occupational Therapy Care Plan (Resolved) There are no resolved problems. Principal Problem: Closed displaced comminuted fracture of shaft of left femur, [place] Active Problems: Pressure injury of deep tissue of right heel Pressure injury of left heel, stage 4 ([facility]) Pressure injury of sacral region, stage 3 [place] Quadriplegia, C1-C4, complete [place] Subacute osteomyelitis of left foot [place] Stage 5 chronic kidney disease not on chronic dialysis ([facility] Iron deficiency anemia secondary to inadequate dietary iron intake Hyperkalemia Physical Therapy Evaluation Discharge Recommendations PT Recommendations: Group Home Facility (vs LTC dependent on baseline) SNF/ECF Comments: Patient would benefit from SNF at this time in order to improve transfers to only requiring 1 person assistance. At this time requiring 3 people for a safe transfer due to his fracture. Past Medical History: Diagnosis Date Chronic renal failure, stage 4 (severe) [place] Quadriplegia [place] Past Surgical History: Procedure Laterality Date BOWEL RESECTION COLON SURGERY COLOSTOMY DEBRIDEMENT LEFT HEEL Left 10/07/2024 Performed by David Dumont MD at [facility] ESOPHAGOGASTRODUODENOSCOPY DIAGNOSTIC N/A 09/02/2024 Performed by Maryann Villegas MD at [facility] ESOPHAGOGASTRODUODENOSCOPY DIAGNOSTIC N/A 08/30/2024 Performed by Maryann Villegas MD at [facility] SPINAL FUSION c5 and c6 VENA CAVA FILTER PLACEMENT 1998 6 Clicks: Basic Mobility Turning from your back to your side while in a flat bed without using bed rails?: Total Moving from lying on your back to sitting on side of flat bed without using bed rails?: Total Moving to and from bed to a chair (including w/c)?: Total Standing up from a chair using your arms (e.g. w/c or bedside chair)?: Total To walk in hospital room?: Total Climbing 3-5 steps with a railing?: Total Scoring 6 Clicks: Basic Mobility Raw Score: 6 [facility] G Code Modifier: CN Therapy Plan Need for skilled Physical Therapy to address deficits in functional mobility due to a status decline resulting from left femur fracture. PT Treatment/Interventions: Functional transfer training, LE strengthening/ROM, Endurance training, Balance, Stair training, Bed mobility, Gait training, Functional activities, Neuromuscular reeducation PT Frequency: 2-3days/week PT Duration: 10 days Patient Response to Treatment: Tolerated evaluation without adverse reaction Assessment Patient Assessment Therapy Problem List: Abnormal posture, Decreased balance, Decreased endurance, Decreased mobility, Decreased safe judgement during ADL, Decreased LE ROM, Decreased LE strength Patient Response to Treatment: Tolerated evaluation without adverse reaction Mood/Affect: Appropriate for circumstances Rehab Prognosis: Fair, With continued PT status post acute discharge Visit RN Communication: Yes Medical Record Reviewed: Yes PT Type of Visit: Evaluation Precautions Activity: Ok to evaluate per taylor JACKSON Equipment: slide board, maxi ski, bond catheter, motorized wheelchair Telemetry/Rehabilitation Aide: Yes Oxygen Used: room air Other: quadrapalegic, left femur fracture Subjective Physical Therapy Comments: Patient reports he is dependent at home and his does everything for him. Pain Assessment Pain Assessment: 0-10 Pain Score: 10 Pain Location: Generalized Home Living Type of Home: House Home Layout: One level, Ramped entrance Stairs to Enter: ramp Bathroom Shower/Tub: Walk-in shower Bathroom Equipment: Hand-held shower, Built-in shower seat Bathroom Accessibility: Accessible via wheelchair Home Equipment: Wheelchair-electric, Wheelchair-manual, Hospital bed (slide board) Prior Function Lives With: Spouse Receives Help From: Family Level of Mobility: Needs assistance with ADLs or functional transfers or gait Transfers: Total assist Homemaking Assistance: Needs assistance Other: pagtient reports he is total A at home for transfers. He is able to move wheelchair controls for mobility. Hearing / Speech / Vision Hearing: Within Functional Limits Speech: Within Functional Limits Current Vision: Wears glasses all the time Cognition Orientation Level: Oriented X4 Bed Mobility Supine to Sit: Total assist (+3) Transfers Bed to Chair: Total assist (+3) Lateral Transfers: Total assist Gait Wheelchair Mobility: Modified independent (with controls on motorized wheelchair) Balance Sitting Balance: Static: Poor Sitting Balance: Dynamic: Poor RLE Assessment: (0/5) LLE Assessment: (0/5) Activity Tolerance Endurance: Tolerates <30 minutes activity WITHOUT vital sign changes Plan Physical Therapy Care Plan Physical Therapy Care Plan (Active) Template: PT - Physical Therapy Problem: Bed Mobility Dates: Start: 10/26/24 Disciplines: PT Goal: Patient will perform bed mobility with Maximum Assist Dates: Start: 10/26/24 Expected End: 11/04/24 Description: Goal Description: Pt to perform bed mobility in order to be able to decrease risk of further skin breakdown. Disciplines: PT Problem: Transfers Dates: Start: 10/26/24 Disciplines: PT Goal: Patient will perform transfers with Maximum Assist Dates: Start: 10/26/24 Expected End: 11/04/24 Description: Goal Description: Pt to be able to safely transfer with least amount of assistance to demonstrate decreased need for caregiver assistance and ease with home transfers. Disciplines: PT Physical Therapy Care Plan (Resolved) There are no resolved problems. Principal Problem: Closed displaced comminuted fracture of shaft of left femur, [place] Active Problems: Pressure injury of deep tissue of right heel Pressure injury of left heel, stage 4 ([facility]) Pressure injury of sacral region, stage 3 ([facility]) Quadriplegia, C1-C4, complete ([facility]) Subacute osteomyelitis of left foot [place] Stage 5 chronic kidney disease not on chronic dialysis [place] Iron deficiency anemia secondary to inadequate dietary iron intake Hyperkalemia Images from the original note were not included. DISCHARGE PLANNING NOTE Follow-up Discharge Planning Progress Note Per RN during discharge transition rounds, barriers to discharge are: Await Ortho consult for plan of care. Discharge Plan: [facility] can accept. Most recent updates sent via careport. Await updated PT/OT notes. 1500: Discussed with RADHA Phillips and pt will DC today. CRF, therapy updates sent to [facility] and admissions updated. RN to finalize DC. Services Requested: Services Requested Patient expects to be discharged to:: [facility] Discharge Disposition: [facility] SNF Name: [facility] SNF SNF Accepted?: Yes Does the patient need discharge transportation arranged?: Yes Transportation Arranged: Ambulance Mobility issues discussed with transportation provider: No Patient choice offered: Yes List Provided: Yes CarePort List Provided: Group Home Facility Initial DC Assessment Completed: Yes DC Planning Complete Discharge Milestones: Yes Patient Goals: Patient/Caregiver Goals Patient/Caregiver Goals: Group Home Care Skilled [place] Care: Skilled Care (Short Term) Goals: Goals SNF (pt-stated) Evaluation of progress towards goal: Pt understands need for PT/OT evaluations; await MRI results. Agreeable to SNF. Updated goal: DC to [facility] today. CARLIE Ellison, 10/26/2024, 3:04 PM Problem: Multi-Drug Resistant Organism / Rule-Out Infection Prevention Goal: Prevent transmission of infection Description: INTERVENTIONS 1. Place patient in private room or in room with patient with same disease 2. Discard single-use items 3. Clean reusable equipment between patients 4. Wear gloves for direct and indirect contact with patient or contaminants 5. Change gloves between tasks and procedures 6. Wash hands before and after caring for each patient 7. Wear appropriate personal protective equipment in relation to the indicated isolation type 8. Place appropriate isolation signage on patient's door 9. Provide patient/ patient real estate representative with isolation education. Outcome: Progressing Note: Evaluation of progress towards goal: iv atb as ordered. Problem: Pain Goal: Patient goal is pain score less than 4, able to rest, and participant in treatment plan as appropriate Description: INTERVENTIONS: 1. Encourage patient or legal real estate representative to report early pain and ask for pain medicine when needed 2. Assess pain using appropriate pain scale and include the scale used when documenting 3. Administer analgesics based on type and severity of pain and evaluate response within appropriate time frame 4. Implement non-pharmacological measures as appropriate and evaluate response 5. Consider cultural and social influences on pain and pain management 6. Notify LIP if interventions ineffective or patient reports new pain 7. Monitor vital signs including pulse ox, end-tidal CO2 based on pain intervention 8. Reassess pain per policy 9. Teach patient or legal real estate representative interventions for comforting Outcome: Progressing Note: Evaluation of progress towards goal: pt wearing fentanyl patch Problem: Safety Goal: Patient will be injury free during hospitalization Description: INTERVENTIONS: 1. Assess patient's risk for falls and implement fall prevention plan of care per policy 2. Provide and maintain a safe environment 3. Proper use of double Identifiers 4. Medication administration using the 5 rights 5. Hand hygiene 6. Specimens are labeled at the bedside 7. Instruct patient/ patient real estate representative about use of safety devices 8. Include patient/ patient real estate representative in decisions related to safety Outcome: Progressing Note: Evaluation of progress towards goal: pt free of injury. Problem: Infection Goal: Absence of infection during hospitalization Description: INTERVENTIONS 1. Assess and monitor for signs and symptoms of infection. 2. Monitor lab/diagnostic results. 3. Monitor all insertion sites i.e., indwelling lines, tubes and drains. 4. Monitor endotracheal (as able) and nasal secretions for changes in amount and color. 5. Administer medications as ordered. 6. Instruct and encourage patient and family to use good hand hygiene technique. 7. Identify and instruct patient/patient real estate representative in use of appropriate isolation precautions for identified infection/symptoms. 8. Provide and discuss with patient/patient real estate representative on educational MDRO sheet. 9. Encourage and monitor nutritional status daily and consult clothes separator if indicated. 10. Implement neutropenic guidelines as needed. Outcome: Progressing Note: Evaluation of progress towards goal: iv atb as ordered. Problem: Knowledge Deficit Goal: Patient/patient real estate representative demonstrates understanding of disease process, treatment plan, medications, and discharge instructions Description: INTERVENTIONS 1. Complete learning assessment and assess knowledge base 2. Provide teaching at level of understanding 3. Provide teaching via preferred learning method(s) Outcome: Progressing Note: Evaluation of progress towards goal: pt updated on plan of care. Problem: Discharge Planning Goal: Discharge to post-acute care, other facility, or home with appropriate resources Description: Patient's goal is: INTERVENTIONS 1. Conduct assessment to determine patient/family and health care team treatment goals, and need for post-acute services based on payer coverage, community resources, and patient preferences, and barriers to discharge 2. Coordinate with Social work, Care Navigation, and Utilization Review to arrange appropriate level of services according to patient's needs based on patient preference and payer coverage in collaboration with the physician and health care team 3. Address psychosocial, clinical, and financial barriers to discharge as identified in assessment in conjunction with the patient/family and health care team 4. Consult appropriate ancillary services (i.e.. PT/OT/ST, etc) as needed 5. Communicate with and update the patient/family, physician, and health care team regarding progress on the discharge plan 6. Identify discharge learning needs (meds, wound care, etc). 7. Arrange for needed discharge transportation as appropriate Outcome: Progressing Note: Evaluation of progress towards goal: d/c to snf. Problem: Potential for Compromised Skin Integrity Goal: Skin integrity is maintained or improved Description: Patient's goal is: INTERVENTIONS 1. Perform initial skin assessment on admission and as needed 2. Turn patient every 2 hours and PRN 3. Relieve pressure to bony prominences 4. Avoid shearing 5. Keep skin clean and dry 6. Alternate a full bath with partial baths for elderly 7. Apply lotion/moisturizer on skin 8. Monitor patient's hygiene practices 9. Float heels 10. Collaborate with interdisciplinary team and initiate plans and interventions as needed Outcome: Progressing Note: Evaluation of progress towards goal: wound care as ordered. Goal: Patient's nutritional intake is adequate Description: Patient's goal is: INTERVENTIONS 1. Assess and monitor food intake and supplements, patient food preferences, nausea, vomiting, labs, oral cavity (gums, teeth, tongue, mucosa), proper denture fit, and cultural beliefs 2. Monitor for signs of hypoglycemia and hyperglycemia 3. Collaborate with interdisciplinary team and initiate plan and interventions as ordered 4. Monitor patient's weight 5. Assist patient with meals/food selection 6. Assist patient with eating 7. Allow adequate time for meals 8. Provide pleasant environment during mealtime 9. Increase social contact during mealtimes 10. Plan activities to conserve energy 11. Encourage/perform oral hygiene as appropriate 12. Encourage patient to take dietary supplement as ordered 13. Collaborate with clinical clothes separator 14. Include patient/ patient's real estate representative in decisions related to nutrition Outcome: Progressing Note: Evaluation of progress towards goal: good intake. Problem: Urinary Incontinence Goal: Perineal skin integrity is maintained or improved Description: INTERVENTIONS 1. Assess genitourinary system, perineal skin, labs (urinalysis), and history of incontinence to include past management, aggravating, and alleviating factors 2. Keep skin clean and dry 3. Apply skin protectant 4. Develop skin care regimen 5. Provide privacy when changing patients incontinence device to maintain their dignity 6. Consider placing an indwelling catheter 7. Collaborate with interdisciplinary team and initiate plans and interventions as needed Outcome: Progressing Note: Evaluation of progress towards goal: bond angie. Problem: Moderate - High Risk Fall Score Description: Patiño Fall Score of =/> 25 or indicated by [facility] Assessment Goal: Patient should be free from fall Description: Interventions: 1. [place] to environment 2. Hourly rounds addressing the 4 P's (Pain, Positioning, Possessions, Potty) 3. Clear area of hazards (spills, clutter, electrical cords, unnecessary equipment) 4. Place equipment (bed & TV controls, call light, phone, urinal) within reach 5. Encourage patient to wear glasses and hearing aides as appropriate 6. Maintain bed in lowest position 7. Lock wheels on bed/wheelchair 8. Provide adequate lighting, including night light 9. Assess need for additional bedding, food/fluids, pain med's prior to sleep/routinely 10. Provide gripper slippers or personal non-skid footwear 11. Teach patient and patient real estate representative to maintain environment for safety and engage in all aspects of fall prevention program 12. Remind patient to call for help before getting out of bed 13. Initiate bed/chair/exit alarms supportive devices as appropriate, (chair wedge, no-skid floor mat, raised edge mattress, hip protectors) 14. Locate patient bed assignment for optimal visualization 15. Evaluate and identify Safe Patient Handling Equipment needs 16. Provide supervision when out of bed or chair 17. Utilize gait belt as needed to assist with ambulation 18. Place adaptive equipment (cane, walker) within reach 19. Request patient real estate representative bring adaptive equipment/mobility aids from home or obtain and provide as needed 20. Consult pharmacy regarding effects of med's affecting mobility, cognition, and alternatives 21. Obtain physician order for PT if risk factors associated with mobility are present 22. Obtain physician order for OT as appropriate 23. Utilize diversional activities 24. Educate patient and patient real estate representative how to maintain a safe environment during visitation times (notify nurse prior to leaving bedside) 25. Consider appropriateness of medical or non-medical lab specialist 26. Set up voiding schedule as appropriate (every 2 hours) Outcome: Progressing Note: Evaluation of progress towards goal: pt free of falls. Problem: Pain Goal: Patient goal is pain score less than 4, able to rest, and participant in treatment plan as appropriate Description: INTERVENTIONS: 1. Encourage patient or legal real estate representative to report early pain and ask for pain medicine when needed 2. Assess pain using appropriate pain scale and include the scale used when documenting 3. Administer analgesics based on type and severity of pain and evaluate response within appropriate time frame 4. Implement non-pharmacological measures as appropriate and evaluate response 5. Consider cultural and social influences on pain and pain management 6. Notify LIP if interventions ineffective or patient reports new pain 7. Monitor vital signs including pulse ox, end-tidal CO2 based on pain intervention 8. Reassess pain per policy 9. Teach patient or legal real estate representative interventions for comforting Outcome: Not Progressing Note: Evaluation of progress towards goal: Pt able to report pain according to 0/10 pain scale. Chronic pain reported. Medicating patient for pain per orders. Problem: Safety Goal: Patient will be injury free during hospitalization Description: INTERVENTIONS: 1. Assess patient's risk for falls and implement fall prevention plan of care per policy 2. Provide and maintain a safe environment 3. Proper use of double Identifiers 4. Medication administration using the 5 rights 5. Hand hygiene 6. Specimens are labeled at the bedside 7. Instruct patient/ patient real estate representative about use of safety devices 8. Include patient/ patient real estate representative in decisions related to safety Outcome: Progressing Note: Evaluation of progress towards goal: Pt's risk for falls assessed and fall prevention implemented as needed, safe environment provided and maintained, hand hygiene completed. Problem: Infection Goal: Absence of infection during hospitalization Description: INTERVENTIONS 1. Assess and monitor for signs and symptoms of infection. 2. Monitor lab/diagnostic results. 3. Monitor all insertion sites i.e., indwelling lines, tubes and drains. 4. Monitor endotracheal (as able) and nasal secretions for changes in amount and color. 5. Administer medications as ordered. 6. Instruct and encourage patient and family to use good hand hygiene technique. 7. Identify and instruct patient/patient real estate representative in use of appropriate isolation precautions for identified infection/symptoms. 8. Provide and discuss with patient/patient real estate representative on educational MDRO sheet. 9. Encourage and monitor nutritional status daily and consult clothes separator if indicated. 10. Implement neutropenic guidelines as needed. Outcome: Progressing Note: Evaluation of progress towards goal: Patient VS WNL, remains afebrile for shift. Administered IV and PO antibiotics as ordered, see eMAR. Continue to monitor. Images from the original note were not included. WOUND CARE NOTE Date of Admission: 10/22/2024 2:01 PM Reason for Consult: Bilateral heels and coccyx History of Present Illness: Jessica Price who presents with Closed displaced left femur fracture. Wound has been present since for a long time per patient. Patient is paralyzed from the neck down. Current wound pain 0/10. Vital Signs: BP 133/76 Pulse 96 Temp 37.2 C (99 F) (Oral) Resp 16 Ht 182.9 cm (6') Wt 85.3 kg (188 lb) SpO2 94% BMI 25.50 kg/m Wound Assessment: Wound 08/20/24 Pressure Injury Back Right Lateral (Active) Wound 08/20/24 Pressure Injury Heel Right (Active) Wound Image 10/25/24 1200 Site Assessment Red;Moist;Purple 10/25/24 1200 Isabel-wound Assessment Blanchable erythema;Colman;Dry 10/25/24 1200 Wound Length (cm) 6 cm 10/25/24 1200 Wound Width (cm) 6.5 cm 10/25/24 1200 Wound Surface Area (cm^2) 39 cm^2 10/25/24 1200 Drainage Amount Small 10/25/24 1200 Treatments Cleansed with;Soap and water 10/25/24 1200 Dressing Type Xeroform;Abdominal dressing;Gauze Rolled/Kerlix 10/25/24 1200 Dressing Changed Changed 10/25/24 1200 Dressing Status Clean;Dry;Intact 10/25/24 1200 Pressure Injury Stage DTPI 10/25/24 1200 Wound 08/20/24 Pressure Injury Heel Left (Active) Wound Image 10/25/24 1200 Site Assessment Moist;Red 10/25/24 1200 Isabel-wound Assessment White;Colman 10/25/24 1200 Shape round 10/24/24 1629 Wound Length (cm) 3 cm 10/25/24 1200 Wound Width (cm) 2.5 cm 10/25/24 1200 Wound Surface Area (cm^2) 7.5 cm^2 10/25/24 1200 Wound Depth (cm) 1.7 cm 10/25/24 1200 Wound Volume (cm^3) 12.75 cm^3 10/25/24 1200 Drainage Description Sanguineous 10/25/24 1200 Drainage Amount Moderate 10/25/24 1200 Treatments Cleansed with;Vashe/Hypochlorous Acid 10/25/24 1200 Dressing Type Moist to moist;Gauze;Abdominal dressing;Gauze Rolled/Kerlix 10/25/24 1200 Dressing Changed Changed 10/25/24 1200 Dressing Status Clean;Dry;Intact 10/25/24 1200 Wound Bed Granulation (%) 100% 10/25/24 1200 Wound 10/09/24 Buttocks Left (Active) Wound 10/09/24 Calf Left;Outer (Active) Wound 10/25/24 Pressure Injury Ankle/Malleolus Right;Medial (Active) Wound Image 10/25/24 1200 Site Assessment Eschar Unstable;Yellow 10/25/241199 Isabel-wound Assessment Colman;Non-blanchable erythema 10/25/24 1200 Wound Length (cm) 2 cm 10/25/24 1200 Wound Width (cm) 2 cm 10/25/24 1200 Wound Surface Area (cm^2) 4 cm^2 10/25/24 1200 Drainage Description Serosanguineous;Yellow 10/25/24 1200 Drainage Amount Scant 10/25/24 1200 Treatments Cleansed with 10/25/24 1200 Dressing Type Xeroform;Gauze Rolled/Kerlix 10/25/24 1200 Dressing Changed Changed 10/25/24 1200 Dressing Status Clean;Dry;Intact 10/25/24 1200 Wound Bed Slough (%) < 25% 10/25/24 1200 Wound Bed Eschar (%) 75% to 100% 10/25/24 1200 Pressure Injury Stage U 10/25/24 1200 Wound 10/25/24 Pressure Injury Calf Left;Lateral (Active) Wound Image 10/25/24 1200 Site Assessment Yellow;Brown 10/25/24 1200 Isabel-wound Assessment Blanchable erythema;Dry 10/25/24 1200 Wound Length (cm) 3 cm 10/25/24 1200 Wound Width (cm) 2.5 cm 10/25/24 1200 Wound Surface Area (cm^2) 7.5 cm^2 10/25/24 1200 Drainage Description Serosanguineous;Yellow 10/25/24 1200 Drainage Amount Small 10/25/24 1200 Treatments Cleansed with;Soap and water 10/25/24 1200 Dressing Type Vaseline gauze;Honey Dressing;Gauze Rolled/Kerlix 10/25/24 1200 Dressing Changed New 10/25/24 1200 Dressing Status Clean;Dry;Intact 10/25/24 1200 Wound Bed Slough (%) 100% 10/25/24 1200 Wound 10/25/24 Pressure Injury Hip Left;Lateral (Active) Wound Image 10/25/24 1200 Site Assessment Yellow;Colman;Moist 10/25/24 1200 Isabel-wound Assessment Blanchable erythema 10/25/24 1200 Wound Length (cm) 0.5 cm 10/25/24 1200 Wound Width (cm) 1 cm 10/25/24 1200 Wound Surface Area (cm^2) 0.5 cm^2 10/25/24 1200 Wound Depth (cm) 0.1 cm 10/25/24 1200 Wound Volume (cm^3) 0.05 cm^3 10/25/24 1200 Drainage Description Serosanguineous;Yellow 10/25/24 1200 Drainage Amount Scant 10/25/24 1200 Treatments Cleansed with;Soap and water 10/25/24 1200 Dressing Type Triad hydro;Foam 10/25/24 1200 Wound Bed Granulation (%) < 25% 10/25/24 1200 Wound Bed Slough (%) 75% to 100% 10/25/24 1200 Pressure Injury Stage 2 10/25/24 1200 Wound 10/25/24 Pressure Injury Hip Right;Lateral (Active) Wound Image 10/25/24 1200 Site Assessment Yellow;Colman 10/25/24 1200 Isabel-wound Assessment Blanchable erythema 10/25/24 1200 Wound Length (cm) 0.3 cm 10/25/24 1200 Wound Width (cm) 0.5 cm 10/25/24 1200 Wound Surface Area (cm^2) 0.15 cm^2 10/25/24 1200 Wound Depth (cm) 0.2 cm 10/25/24 1200 Wound Volume (cm^3) 0.03 cm^3 10/25/24 1200 Drainage Description Serosanguineous;Yellow 10/25/24 1200 Drainage Amount Scant 10/25/24 1200 Treatments Cleansed with;Soap and water 10/25/24 1200 Dressing Type Triad hydro;Foam 10/25/24 1200 Dressing Changed New 10/25/24 1200 Dressing Status Clean;Dry;Intact 10/25/241199 Wound Bed Slough (%) 100% 10/25/241199 Pressure Injury Stage 2 10/25/24 1200 Wound 10/25/24 Pressure Injury Buttocks Left (Active) Wound Image 10/25/241199 Site Assessment Purple;Red 10/25/241199 Isabel-wound Assessment Blanchable erythema 10/25/241199 Wound Length (cm) 15 cm 10/25/24 1200 Wound Width (cm) 12 cm 10/25/241199 Wound Surface Area (cm^2) 180 cm^2 10/25/24 1200 Wound Depth (cm) 0.3 cm 10/25/241199 Wound Volume (cm^3) 54 cm^3 10/25/241199 Drainage Description Serosanguineous;Yellow 10/25/241199 Drainage Amount Moderate 10/25/241199 Treatments Cleansed with;Soap and water 10/25/24 1200 Dressing Type Abdominal dressing;Triad hydro 10/25/24 1200 Dressing Changed New 10/25/24 1200 Dressing Status Clean;Dry;Intact 10/25/24 1200 Wound Plan Dressing: Right lateral ankle and left lateral calf: Cleanse with soap and water then pat dry. Apply medi honey to adaptic then place on wound bed. Secure with roll gauze. Change daily Right Heel: Cleanse with soap and water then pat dry. Apply alginate to wound bed then Cover with roll gauze. Change daily Left Heel: Cleanse with soap and water then pat dry. Lightly pack with 0.125% dakin's moistened gauze then cover with Abdominal dressing secure with roll gauze. Change 2 times a day. Buttocks and groin: Cleanse with soap and water then pat dry. Apply thin layer of triad (Do Not Scrub off before reapplying). Apply daily Bilateral Hips: Cleanse with soap and water then pat dry. Apply thin layer of triad (Do Not Scrub off before reapplying) and cover with foam dressing. Change foam dressing every 3 days. Offloading: Turn patient every 2 hours. Ordered low air loss mattress. Patient has shelly kim boots. Skin Care: Moisturize all dry and intact skin Edema Management: Luis Alfredo wraps to bilateral lower extremities Follow up: Will continue to see while inpatient.Patient is unsure to what wound clinic he will be going to at discharge. Patient being [facility] to [facility] Thank you for allowing us to participate in the care of this patient. Please feel free to call us with any questions or concerns. Lata Durant RN [facility] Preferred contact via Ext. [phone], Epic Chat or [facility] [place] WOOL PULLER: ANTONIO Freitas DISCHARGE PLANNING NOTE 10/25/24 1149 Services Requested Patient expects to be discharged to: [facility] SNF Name [facility] SNF Per [facility] can accept; typewriter repairer met with pt regarding choice, pt had no preference & deferred to [facility]. Call placed to [facility], informed on acceptance; preference is [facility]. [facility]stone Cleaner sent messages via [facility] to non-selected SNF's & confirmed [facility] in [facility]. Sticky note on chart regarding DC plan. Care Navigation following for safe care transition. DISCHARGE PLANNING NOTE Referral sent to. Asuncion Gonzales at [place] (P# ; F# ) [facility] (P#: ; F#: ) [address] [address] Images from the original note were not included. DISCHARGE PLANNING NOTE 10/25/24 0959 Discharge Disposition Discharge Disposition SNF Patient Information Primary Caregiver Self Accompanied by/Relationship pt on phone with pt while typewriter repairer in room completing DC planning assessment & discussing choices of SNF's Support System Immediate family Stressors Type of stressor Health issues Explain issues is entitled to 40 hrs per week of aid services through workers comp however they are not able to find aid services Income Information Income Information Retired/Pension/Social Security Referral To Community Resources Denies needs Discharge Planning Living Arrangements Spouse/significant other Support Systems Family members;Spouse/significant other Assistance Needed adls/iadls Type of Residence Private residence Private Residence 1 story Residence Accessibility [facility] Yes Type of Home Care Services Nurse visit Community Agencies Currently Utilized Established Home care Provider Name [facility] Provided Group Home Patient expects to be discharged to: SNF Does the patient need discharge transport arranged? Yes Services Requested: Services Requested Patient expects to be discharged to:: SNF Discharge Disposition: SNF Does the patient need discharge transportation arranged?: Yes Transportation Arranged: Ambulance Mobility issues discussed with transportation provider: No Patient choice offered: Yes List Provided: Yes [facility] List Provided: Group Home Facility Initial DC Assessment Completed: Yes DC Planning Complete Discharge Milestones: Yes Patient Goals: Patient/Caregiver Goals Patient/Caregiver Goals: Group Home Care Skilled Nuring Care: Skilled Care (Short Term) Goals SNF (pt-stated) Evaluation of progress towards goal: Pt understands need for PT/OT evaluations; await MRI results. Agreeable to SNF. Chart reviewed; pt is a less than 30 day readmission. Per chart documentation was DC from [facility] 10/14/24 with Conor Jenifer [facility]. Introduced self & role of SW, pt agreeable to conversation & has his on his phone while speaking with typewriter repairer; assessment/goals as above. Pt relayed he is entitled to 40 hrs per week of aid services through workers comp however they are not able to find aid services & it is getting difficult at home to manage. Discussed SNF at DC, pt is agreeable. Millstone Cleaner reviewed [facility] SNF list with pt & , preferences are: 1. [facility] 2. [facility] 3. [facility] Informed pt on need to participate with PT/OT as able for evaluations which will be needed for SNF referral so SNF can make determination if they are able to provide care; pt states understanding. Pt does not endorse alcohol/substance use. Pt does not endorse food insecurity or financial stressors. Pt is able to afford home medications. Pt has functioning water, heat, cooling & electric in the home. Pt does not endorse anxiety, depression or other mental health concerns; negative Barber screen. Pt provides transportation & is pt primary care provider. Patient's preferred pharmacy is [facility]. PCP verified as Dr. Pedro Grove. Opportunity provided to ask questions, pt does not endorse any at this time. Plan to prevent readmission is for pt to DC to SNF, follow DC instructions including medication compliance and to reach out to health care team as needed. Tasked Transition Center to send referrals to: 1. [facility] 2. [facility] 3. [facility]; await SNF acceptance. Care Navigation will continue to follow patient progress to determine appropriate safe care transition needs. Physical Therapy PT Type of Visit: Patient refusal Reason For Patient Refusal (comment required): Just returned to bed (Patient reports he just returned from MRI and got comfortable in bed. Would like to wait until his brings wheelchair later today and try transfers at that time. Will continue to follow.) Occupational Therapy Evaluation Refused 10/25/24 0919 Visit RN Communication Yes Medical Record Reviewed Yes OT Type of Visit Patient refusal Reason For Patient Refusal (comment required) (Patient just returned from imaging. OT educated on role and purpose of evaluation. He denies at this time as he would prefer to await the arrival of his chair to simulate home environment. He reports his spouse will be bringing it later. OT to follow.) DISCHARGE PLANNING NOTE Chart reviewed. Millstone Cleaner to pt room, pt at MRI at this time; typewriter repairer will return to complete DC planning assessment. Problem: Pain Goal: Patient goal is pain score less than 4, able to rest, and participant in treatment plan as appropriate Description: INTERVENTIONS: 1. Encourage patient or legal real estate representative to report early pain and ask for pain medicine when needed 2. Assess pain using appropriate pain scale and include the scale used when documenting 3. Administer analgesics based on type and severity of pain and evaluate response within appropriate time frame 4. Implement non-pharmacological measures as appropriate and evaluate response 5. Consider cultural and social influences on pain and pain management 6. Notify LIP if interventions ineffective or patient reports new pain 7. Monitor vital signs including pulse ox, end-tidal CO2 based on pain intervention 8. Reassess pain per policy 9. 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 Problem: Safety Goal: Patient will be injury free during hospitalization Description: INTERVENTIONS: 1. Assess patient's risk for falls and implement fall prevention plan of care per policy 2. Provide and maintain a safe environment 3. Proper use of double Identifiers 4. Medication administration using the 5 rights 5. Hand hygiene 6. Specimens are labeled at the bedside 7. Instruct patient/ patient real estate representative about use of safety devices 8. Include patient/ patient real estate representative in decisions related to safety Outcome: Progressing Note: Evaluation of progress towards goal: Patient will remain free from falls. Room is clear of clutter, non- slip footwear is provided. Will continue to monitor. Problem: Knowledge Deficit Goal: Patient/patient real estate representative demonstrates understanding of disease process, treatment plan, medications, and discharge instructions Description: INTERVENTIONS 1. Complete learning assessment and assess knowledge base 2. Provide teaching at level of understanding 3. Provide teaching via preferred learning method(s) Outcome: Progressing Note: Evaluation of progress towards goal: Pt educated on treatment plan and medications. Pt asked appropriate questions. Problem: Moderate - High Risk Fall Score Description: Patiño Fall Score of =/> 25 or indicated by [facility] Assessment Goal: Patient should be free from fall Description: Interventions: 1. [place] to environment 2. Hourly rounds addressing the 4 P's (Pain, Positioning, Possessions, Potty) 3. Clear area of hazards (spills, clutter, electrical cords, unnecessary equipment) 4. Place equipment (bed & TV controls, call light, phone, urinal) within reach 5. Encourage patient to wear glasses and hearing aides as appropriate 6. Maintain bed in lowest position 7. Lock wheels on bed/wheelchair 8. Provide adequate lighting, including night light 9. Assess need for additional bedding, food/fluids, pain med's prior to sleep/routinely 10. Provide gripper slippers or personal non-skid footwear 11. Teach patient and patient real estate representative to maintain environment for safety and engage in all aspects of fall prevention program 12. Remind patient to call for help before getting out of bed 13. Initiate bed/chair/exit alarms supportive devices as appropriate, (chair wedge, no-skid floor mat, raised edge mattress, hip protectors) 14. Locate patient bed assignment for optimal visualization 15. Evaluate and identify Safe Patient Handling Equipment needs 16. Provide supervision when out of bed or chair 17. Utilize gait belt as needed to assist with ambulation 18. Place adaptive equipment (cane, walker) within reach 19. Request patient real estate representative bring adaptive equipment/mobility aids from home or obtain and provide as needed 20. Consult pharmacy regarding effects of med's affecting mobility, cognition, and alternatives 21. Obtain physician order for PT if risk factors associated with mobility are present 22. Obtain physician order for OT as appropriate 23. Utilize diversional activities 24. Educate patient and patient real estate representative how to maintain a safe environment during visitation times (notify nurse prior to leaving bedside) 25. Consider appropriateness of medical or non-medical lab specialist 26. Set up voiding schedule as appropriate (every 2 hours) Note: Evaluation of progress towards goal: Patient will remain free from falls. Room is clear of clutter, non- slip footwear is provided. Will continue to monitor. Problem: Pain Goal: Patient goal is pain score less than 4, able to rest, and participant in treatment plan as appropriate Description: INTERVENTIONS: 1. Encourage patient or legal real estate representative to report early pain and ask for pain medicine when needed 2. Assess pain using appropriate pain scale and include the scale used when documenting 3. Administer analgesics based on type and severity of pain and evaluate response within appropriate time frame 4. Implement non-pharmacological measures as appropriate and evaluate response 5. Consider cultural and social influences on pain and pain management 6. Notify LIP if interventions ineffective or patient reports new pain 7. Monitor vital signs including pulse ox, end-tidal CO2 based on pain intervention 8. Reassess pain per policy 9. Teach patient or legal real estate representative interventions for comforting Outcome: Progressing Note: Evaluation of progress towards goal: Continue to assess for pain and address accordingly Problem: Safety Goal: Patient will be injury free during hospitalization Description: INTERVENTIONS: 1. Assess patient's risk for falls and implement fall prevention plan of care per policy 2. Provide and maintain a safe environment 3. Proper use of double Identifiers 4. Medication administration using the 5 rights 5. Hand hygiene 6. Specimens are labeled at the bedside 7. Instruct patient/ patient real estate representative about use of safety devices 8. Include patient/ patient real estate representative in decisions related to safety Outcome: Progressing Note: Evaluation of progress towards goal: Pt remains free from falls or accidental injury during stay. Fall prevention measures in place. Hourly rounding per RN and NA maintained. Problem: Knowledge Deficit Goal: Patient/patient real estate representative demonstrates understanding of disease process, treatment plan, medications, and discharge instructions Description: INTERVENTIONS 1. Complete learning assessment and assess knowledge base 2. Provide teaching at level of understanding 3. Provide teaching via preferred learning method(s) Outcome: Progressing Note: Evaluation of progress towards goal: Discussed POC for HS. Questions answered. States an understanding. Review as needed. Problem: Discharge Planning Goal: Discharge to post-acute care, other facility, or home with appropriate resources Description: Patient's goal is: INTERVENTIONS 1. Conduct assessment to determine patient/family and health care team treatment goals, and need for post-acute services based on payer coverage, community resources, and patient preferences, and barriers to discharge 2. Coordinate with Social work, Care Navigation, and Utilization Review to arrange appropriate level of services according to patient's needs based on patient preference and payer coverage in collaboration with the physician and health care team 3. Address psychosocial, clinical, and financial barriers to discharge as identified in assessment in conjunction with the patient/family and health care team 4. Consult appropriate ancillary services (i.e.. PT/OT/ST, etc) as needed 5. Communicate with and update the patient/family, physician, and health care team regarding progress on the discharge plan 6. Identify discharge learning needs (meds, wound care, etc). 7. Arrange for needed discharge transportation as appropriate Outcome: Progressing Note: Evaluation of progress towards goal: Continue to collaborate with all services and work towards discharge Physical Therapy PT Type of Visit: Medical deferral Awaiting Ortho Consult. Will continue to follow as appropriate. Problem: Pain Goal: Patient goal is pain score less than 4, able to rest, and participant in treatment plan as appropriate Description: INTERVENTIONS: 1. Encourage patient or legal real estate representative to report early pain and ask for pain medicine when needed 2. Assess pain using appropriate pain scale and include the scale used when documenting 3. Administer analgesics based on type and severity of pain and evaluate response within appropriate time frame 4. Implement non-pharmacological measures as appropriate and evaluate response 5. Consider cultural and social influences on pain and pain management 6. Notify LIP if interventions ineffective or patient reports new pain 7. Monitor vital signs including pulse ox, end-tidal CO2 based on pain intervention 8. Reassess pain per policy 9. Teach patient or legal real estate representative interventions for comforting Outcome: Not Progressing Note: Evaluation of progress towards goal: Pt reports chronic pain due to spinal injury Problem: Safety Goal: Patient will be injury free during hospitalization Description: INTERVENTIONS: 1. Assess patient's risk for falls and implement fall prevention plan of care per policy 2. Provide and maintain a safe environment 3. Proper use of double Identifiers 4. Medication administration using the 5 rights 5. Hand hygiene 6. Specimens are labeled at the bedside 7. Instruct patient/ patient real estate representative about use of safety devices 8. Include patient/ patient real estate representative in decisions related to safety Outcome: Progressing Note: Evaluation of progress towards goal: Patient will remain free from falls. Room is clear of clutter, non- slip footwear is provided. Will continue to monitor. Problem: Knowledge Deficit Goal: Patient/patient real estate representative demonstrates understanding of disease process, treatment plan, medications, and discharge instructions Description: INTERVENTIONS 1. Complete learning assessment and assess knowledge base 2. Provide teaching at level of understanding 3. Provide teaching via preferred learning method(s) Outcome: Progressing Note: Evaluation of progress towards goal: Pt educated on treatment plan and medications. Problem: Moderate - High Risk Fall Score Description: [place] Fall Score of =/> 25 or indicated by [facility] Assessment Goal: Patient should be free from fall Description: Interventions: 1. [place] to environment 2. Hourly rounds addressing the 4 P's (Pain, Positioning, Possessions, Potty) 3. Clear area of hazards (spills, clutter, electrical cords, unnecessary equipment) 4. Place equipment (bed & TV controls, call light, phone, urinal) within reach 5. Encourage patient to wear glasses and hearing aides as appropriate 6. Maintain bed in lowest position 7. Lock wheels on bed/wheelchair 8. Provide adequate lighting, including night light 9. Assess need for additional bedding, food/fluids, pain med's prior to sleep/routinely 10. Provide gripper slippers or personal non-skid footwear 11. Teach patient and patient real estate representative to maintain environment for safety and engage in all aspects of fall prevention program 12. Remind patient to call for help before getting out of bed 13. Initiate bed/chair/exit alarms supportive devices as appropriate, (chair wedge, no-skid floor mat, raised edge mattress, hip protectors) 14. Locate patient bed assignment for optimal visualization 15. Evaluate and identify Safe Patient Handling Equipment needs 16. Provide supervision when out of bed or chair 17. Utilize gait belt as needed to assist with ambulation 18. Place adaptive equipment (cane, walker) within reach 19. Request patient real estate representative bring adaptive equipment/mobility aids from home or obtain and provide as needed 20. Consult pharmacy regarding effects of med's affecting mobility, cognition, and alternatives 21. Obtain physician order for PT if risk factors associated with mobility are present 22. Obtain physician order for OT as appropriate 23. Utilize diversional activities 24. Educate patient and patient real estate representative how to maintain a safe environment during visitation times (notify nurse prior to leaving bedside) 25. Consider appropriateness of medical or non-medical lab specialist 26. Set up voiding schedule as appropriate (every 2 hours) Outcome: Progressing Note: Evaluation of progress towards goal: Patient will remain free from falls. Room is clear of clutter, non- slip footwear is provided. Will continue to monitor. Problem: Multi-Drug Resistant Organism / Rule-Out Infection Prevention Goal: Prevent transmission of infection Description: INTERVENTIONS 1. Place patient in private room or in room with patient with same disease 2. Discard single-use items 3. Clean reusable equipment between patients 4. Wear gloves for direct and indirect contact with patient or contaminants 5. Change gloves between tasks and procedures 6. Wash hands before and after caring for each patient 7. Wear appropriate personal protective equipment in relation to the indicated isolation type 8. Place appropriate isolation signage on patient's door 9. Provide patient/ patient real estate representative with isolation education. Outcome: Progressing Note: Evaluation of progress towards goal: Hands cleansed in and out of room and gloves worn when administering meds. Problem: Pain Goal: Patient goal is pain score less than 4, able to rest, and participant in treatment plan as appropriate Description: INTERVENTIONS: 1. Encourage patient or legal real estate representative to report early pain and ask for pain medicine when needed 2. Assess pain using appropriate pain scale and include the scale used when documenting 3. Administer analgesics based on type and severity of pain and evaluate response within appropriate time frame 4. Implement non-pharmacological measures as appropriate and evaluate response 5. Consider cultural and social influences on pain and pain management 6. Notify LIP if interventions ineffective or patient reports new pain 7. Monitor vital signs including pulse ox, end-tidal CO2 based on pain intervention 8. Reassess pain per policy 9. Teach patient or legal real estate representative interventions for comforting Outcome: Not Progressing Note: Evaluation of progress towards goal: Pt rating pain 10 (baseline) this am. New fentanyl patch to be applied soon. Problem: Safety Goal: Patient will be injury free during hospitalization Description: INTERVENTIONS: 1. Assess patient's risk for falls and implement fall prevention plan of care per policy 2. Provide and maintain a safe environment 3. Proper use of double Identifiers 4. Medication administration using the 5 rights 5. Hand hygiene 6. Specimens are labeled at the bedside 7. Instruct patient/ patient real estate representative about use of safety devices 8. Include patient/ patient real estate representative in decisions related to safety Outcome: Progressing Note: Evaluation of progress towards goal: Pt injury free this hospitalization. Problem: Moderate - High Risk Fall Score Description: [place] Fall Score of =/> 25 or indicated by [facility] Assessment Goal: Patient should be free from fall Description: Interventions: 1. [place] to environment 2. Hourly rounds addressing the 4 P's (Pain, Positioning, Possessions, Potty) 3. Clear area of hazards (spills, clutter, electrical cords, unnecessary equipment) 4. Place equipment (bed & TV controls, call light, phone, urinal) within reach 5. Encourage patient to wear glasses and hearing aides as appropriate 6. Maintain bed in lowest position 7. Lock wheels on bed/wheelchair 8. Provide adequate lighting, including night light 9. Assess need for additional bedding, food/fluids, pain med's prior to sleep/routinely 10. Provide gripper slippers or personal non-skid footwear 11. Teach patient and patient real estate representative to maintain environment for safety and engage in all aspects of fall prevention program 12. Remind patient to call for help before getting out of bed 13. Initiate bed/chair/exit alarms supportive devices as appropriate, (chair wedge, no-skid floor mat, raised edge mattress, hip protectors) 14. Locate patient bed assignment for optimal visualization 15. Evaluate and identify Safe Patient Handling Equipment needs 16. Provide supervision when out of bed or chair 17. Utilize gait belt as needed to assist with ambulation 18. Place adaptive equipment (cane, walker) within reach 19. Request patient real estate representative bring adaptive equipment/mobility aids from home or obtain and provide as needed 20. Consult pharmacy regarding effects of med's affecting mobility, cognition, and alternatives 21. Obtain physician order for PT if risk factors associated with mobility are present 22. Obtain physician order for OT as appropriate 23. Utilize diversional activities 24. Educate patient and patient real estate representative how to maintain a safe environment during visitation times (notify nurse prior to leaving bedside) 25. Consider appropriateness of medical or non-medical lab specialist 26. Set up voiding schedule as appropriate (every 2 hours) Outcome: Progressing Note: Evaluation of progress towards goal: Pt free from falls this hospitalization. Physical Therapy PT Type of Visit: Medical deferral (Awaiting ortho consult due to L femur fx) Per chart review, consult placed for Ortho. Will await their determinations before proceeding. Problem: Multi-Drug Resistant Organism / Rule-Out Infection Prevention Goal: Prevent transmission of infection Description: INTERVENTIONS 1. Place patient in private room or in room with patient with same disease 2. Discard single-use items 3. Clean reusable equipment between patients 4. Wear gloves for direct and indirect contact with patient or contaminants 5. Change gloves between tasks and procedures 6. Wash hands before and after caring for each patient 7. Wear appropriate personal protective equipment in relation to the indicated isolation type 8. Place appropriate isolation signage on patient's door 9. Provide patient/ patient real estate representative with isolation education. Outcome: Progressing Problem: Pain Goal: Patient goal is pain score less than 4, able to rest, and participant in treatment plan as appropriate Description: INTERVENTIONS: 1. Encourage patient or legal real estate representative to report early pain and ask for pain medicine when needed 2. Assess pain using appropriate pain scale and include the scale used when documenting 3. Administer analgesics based on type and severity of pain and evaluate response within appropriate time frame 4. Implement non-pharmacological measures as appropriate and evaluate response 5. Consider cultural and social influences on pain and pain management 6. Notify LIP if interventions ineffective or patient reports new pain 7. Monitor vital signs including pulse ox, end-tidal CO2 based on pain intervention 8. Reassess pain per policy 9. Teach patient or legal real estate representative interventions for comforting Outcome: Progressing Problem: Safety Goal: Patient will be injury free during hospitalization Description: INTERVENTIONS: 1. Assess patient's risk for falls and implement fall prevention plan of care per policy 2. Provide and maintain a safe environment 3. Proper use of double Identifiers 4. Medication administration using the 5 rights 5. Hand hygiene 6. Specimens are labeled at the bedside 7. Instruct patient/ patient real estate representative about use of safety devices 8. Include patient/ patient real estate representative in decisions related to safety Outcome: Progressing Problem: Infection Goal: Absence of infection during hospitalization Description: INTERVENTIONS 1. Assess and monitor for signs and symptoms of infection. 2. Monitor lab/diagnostic results. 3. Monitor all insertion sites i.e., indwelling lines, tubes and drains. 4. Monitor endotracheal (as able) and nasal secretions for changes in amount and color. 5. Administer medications as ordered. 6. Instruct and encourage patient and family to use good hand hygiene technique. 7. Identify and instruct patient/patient real estate representative in use of appropriate isolation precautions for identified infection/symptoms. 8. Provide and discuss with patient/patient real estate representative on educational MDRO sheet. 9. Encourage and monitor nutritional status daily and consult clothes separator if indicated. 10. Implement neutropenic guidelines as needed. Outcome: Progressing Problem: Knowledge Deficit Goal: Patient/patient real estate representative demonstrates understanding of disease process, treatment plan, medications, and discharge instructions Description: INTERVENTIONS 1. Complete learning assessment and assess knowledge base 2. Provide teaching at level of understanding 3. Provide teaching via preferred learning method(s) Outcome: Progressing Problem: Discharge Planning Goal: Discharge to post-acute care, other facility, or home with appropriate resources Description: Patient's goal is: INTERVENTIONS 1. Conduct assessment to determine patient/family and health care team treatment goals, and need for post-acute services based on payer coverage, community resources, and patient preferences, and barriers to discharge 2. Coordinate with Social work, Care Navigation, and Utilization Review to arrange appropriate level of services according to patient's needs based on patient preference and payer coverage in collaboration with the physician and health care team 3. Address psychosocial, clinical, and financial barriers to discharge as identified in assessment in conjunction with the patient/family and health care team 4. Consult appropriate ancillary services (i.e.. PT/OT/ST, etc) as needed 5. Communicate with and update the patient/family, physician, and health care team regarding progress on the discharge plan 6. Identify discharge learning needs (meds, wound care, etc). 7. Arrange for needed discharge transportation as appropriate Outcome: Progressing Problem: Potential for Compromised Skin Integrity Goal: Skin integrity is maintained or improved Description: Patient's goal is: INTERVENTIONS 1. Perform initial skin assessment on admission and as needed 2. Turn patient every 2 hours and PRN 3. Relieve pressure to bony prominences 4. Avoid shearing 5. Keep skin clean and dry 6. Alternate a full bath with partial baths for elderly 7. Apply lotion/moisturizer on skin 8. Monitor patient's hygiene practices 9. Float heels 10. Collaborate with interdisciplinary team and initiate plans and interventions as needed Outcome: Progressing Goal: Patient's nutritional intake is adequate Description: Patient's goal is: INTERVENTIONS 1. Assess and monitor food intake and supplements, patient food preferences, nausea, vomiting, labs, oral cavity (gums, teeth, tongue, mucosa), proper denture fit, and cultural beliefs 2. Monitor for signs of hypoglycemia and hyperglycemia 3. Collaborate with interdisciplinary team and initiate plan and interventions as ordered 4. Monitor patient's weight 5. Assist patient with meals/food selection 6. Assist patient with eating 7. Allow adequate time for meals 8. Provide pleasant environment during mealtime 9. Increase social contact during mealtimes 10. Plan activities to conserve energy 11. Encourage/perform oral hygiene as appropriate 12. Encourage patient to take dietary supplement as ordered 13. Collaborate with clinical clothes separator 14. Include patient/ patient's real estate representative in decisions related to nutrition Outcome: Progressing Problem: Urinary Incontinence Goal: Perineal skin integrity is maintained or improved Description: INTERVENTIONS 1. Assess genitourinary system, perineal skin, labs (urinalysis), and history of incontinence to include past management, aggravating, and alleviating factors 2. Keep skin clean and dry 3. Apply skin protectant 4. Develop skin care regimen 5. Provide privacy when changing patients incontinence device to maintain their dignity 6. Consider placing an indwelling catheter 7. Collaborate with interdisciplinary team and initiate plans and interventions as needed Outcome: Progressing Problem: Moderate - High Risk Fall Score Description: [place] Fall Score of =/> 25 or indicated by [facility] Assessment Goal: Patient should be free from fall Description: Interventions: 1. [place] to environment 2. Hourly rounds addressing the 4 P's (Pain, Positioning, Possessions, Potty) 3. Clear area of hazards (spills, clutter, electrical cords, unnecessary equipment) 4. Place equipment (bed & TV controls, call light, phone, urinal) within reach 5. Encourage patient to wear glasses and hearing aides as appropriate 6. Maintain bed in lowest position 7. Lock wheels on bed/wheelchair 8. Provide adequate lighting, including night light 9. Assess need for additional bedding, food/fluids, pain med's prior to sleep/routinely 10. Provide gripper slippers or personal non-skid footwear 11. Teach patient and patient real estate representative to maintain environment for safety and engage in all aspects of fall prevention program 12. Remind patient to call for help before getting out of bed 13. Initiate bed/chair/exit alarms supportive devices as appropriate, (chair wedge, no-skid floor mat, raised edge mattress, hip protectors) 14. Locate patient bed assignment for optimal visualization 15. Evaluate and identify Safe Patient Handling Equipment needs 16. Provide supervision when out of bed or chair 17. Utilize gait belt as needed to assist with ambulation 18. Place adaptive equipment (cane, walker) within reach 19. Request patient real estate representative bring adaptive equipment/mobility aids from home or obtain and provide as needed 20. Consult pharmacy regarding effects of med's affecting mobility, cognition, and alternatives 21. Obtain physician order for PT if risk factors associated with mobility are present 22. Obtain physician order for OT as appropriate 23. Utilize diversional activities 24. Educate patient and patient real estate representative how to maintain a safe environment during visitation times (notify nurse prior to leaving bedside) 25. Consider appropriateness of medical or non-medical lab specialist 26. Set up voiding schedule as appropriate (every 2 hours) Outcome: Progressing documented in this encounter [facility] 10-26-2024 Nurse Note Phoned and setup transportation with PTN for 2100. Called and attempted to update [facility] and advised of pickling grader time. Left detailed message requesting call back to get report and updates on patient. Will attempt additional call back. [facility] faxed to [phone]. Report was called to [facility] and given to Farida. Advised of pickling grader time. [facility] 10-26-2024 Hospital course Narrative Images from the original note were not included. [facility] [address] [id number] Hospital Medicine Discharge Summary Patient: Jessica Price Date of : 1960 Room: Encounter date: 10/26/24 DATE OF ADMISSION: 10/22/2024 DATE OF DISCHARGE:10/26/2024 DISCHARGE DIAGNOSES Principal Problem: Closed displaced comminuted fracture of shaft of left femur, initial encounter ([facility]) Active Problems: Pressure injury of deep tissue of right heel Pressure injury of left heel, stage 4 ([facility]) Pressure injury of sacral region, stage 3 ([facility]) Quadriplegia, C1-C4, complete [place] Subacute osteomyelitis of left foot [place] Stage 5 chronic kidney disease not on chronic dialysis [place] Iron deficiency anemia secondary to inadequate dietary iron intake [facility] Orthopedic surgery PCP: LAWANDA GROVE MD PROCEDURES None HOSPITAL COURSE SUMMARY Per HPI: Jessica Price is a 64 y.o. male who presents with c/o abnormal lab via EMS. The patient's recent lab work showed a hemoglobin level of less than 6. He also reports falling out of his wheelchair and injuring his left knee. The patient denies any blood in his stool. Has hx of recent GI bleed. There are no other complaints at this time. Labs notable for: RH positive, protime 17.8, Inr 1.6, potassium 5.3, CO2 18, BUN 100, creatinine 4.31, glucose 146, total protein 5.9, albumin 2.3, RBC 2.45, hemoglobin 7.1, hematocrit 21.9, RDW 18.1, eGFR 14, platelets 141, lymphocyte 0.8. XR femur left: Comminuted impacted mildly angulated and displaced distal femoral fracture. Patient be admitted for orthopedic evaluation as well as physical therapy eval. While patient was here he had become quite anemic and had 2 units packed red blood cells transfused. He was seen by Orthopedics for her lower extremity fracture who place patient in immobilizing brace and made him nonweightbearing. Because of this, patient unable to go home and will require [facility] facility to learn how to transfer with 1 leg as he was nonweightbearing on the other leg. Nonweightbearing status significant as he will need to give the fracture time to heal. 10/26/24, Hospital Day: 5 Interval History: Status: improved. No overnight events or new complaints. Hemoglobin stable after packed red blood cells. Review of Systems Constitutional: Negative for activity change, appetite change, fatigue and unexpected weight change. HENT: Negative for trouble swallowing. Respiratory: Negative for cough, sputum production, shortness of breath and wheezing. Cardiovascular: Negative for chest pain, palpitations and leg swelling. Gastrointestinal: Negative for abdominal pain, blood in stool, melena, constipation, diarrhea, nausea and vomiting. Genitourinary: Negative for difficulty urinating. Skin: Negative for color change and wound. Neurological: Negative for dizziness, seizures, speech difficulty and headaches. Psychiatric/Behavioral: Negative for sleep disturbance. Physical Exam BP 114/66 Pulse 100 Temp 37.2 C (98.9 F) (Oral) Resp 18 Ht 182.9 cm (6') Wt 85.3 kg (188 lb) SpO2 96% BMI 25.50 kg/m Intake/Output Summary (Last 24 hours) at 10/26/2024 1632 Last data filed at 10/26/2024 1610 Gross per 24 hour Intake 1250.21 ml Output 1700 ml Net -449.79 ml Constitutional: General: No acute distress. Cardiovascular: Rate and Rhythm: Normal rate and regular rhythm. Heart sounds: Normal heart sounds, S1 normal and S2 normal. Pulmonary: Effort: Pulmonary effort is normal. Breath sounds: Normal breath sounds. Musculoskeletal: Right lower leg: No edema. Left lower leg: No edema. Skin: General: Skin is warm and dry. Coloration: Skin is not pale. Neurological: General: No focal deficit present. Psychiatric: Mood and Affect: Mood normal. Behavior: Behavior normal. Labs Recent Results (from the past 48 hours) Potassium Collection Time: 10/24/24 5:00 PM Result Value Ref Range Potassium, Bld 4.9 3.5 - 5.0 mmol/L Comprehensive metabolic panel Collection Time: 10/25/24 5:25 AM Result Value Ref Range Sodium 137 134 - 146 mmol/L Potassium, Bld 5.4 (H) 3.5 - 5.0 mmol/L Chloride 105 98 - 109 mmol/L CO2 17 (L) 22 - 32 mmol/L Anion gap 15 5 - 15 mmol/L BUN 97 (H) 5 - 27 mg/dL Creatinine 4.31 (H) 0.70 - 1.20 mg/dL Glucose 105 (H) 65 - 99 mg/dL Calcium 7.3 (L) 8.5 - 10.5 mg/dL Total Protein 5.1 (L) 6.0 - 8.0 g/dL Albumin 1.9 (L) 3.2 - 5.3 g/dL Alkaline Phosphatase 57 39 - 130 U/L AST 12 0 - 41 U/L ALT 9 0 - 40 U/L Total bilirubin 0.7 0.3 - 1.2 mg/dL eGFR (CKD-EPI)non-race dependent 14 (L) >59 ml/min/1.73sq.m Magnesium Collection Time: 10/25/24 5:25 AM Result Value Ref Range Magnesium 1.5 (L) 1.8 - 2.6 mg/dL CBC auto differential Collection Time: 10/25/24 5:25 AM Result Value Ref Range White Blood Cells 7.1 4.0 - 11.0 X10E9/L RBC count 2.43 (L) 4.10 - 5.70 X10E12/L Hemoglobin 7.2 (L) 13.0 - 17.0 g/dL Hematocrit 21.5 (L) 39 - 49 % MCV 88 80 - 100 fL MCH 29.4 27 - 34 pg MCHC 33.4 32 - 36 g/dL RDW 16.2 (H) 11.5 - 15.0 % Platelets 120 (L) 150 - 450 X10E9/L MPV 8.7 7 - 12 fL % neutrophils 75.5 % % lymphocytes 9.8 % % monocytes 10.9 % % eosinophils 3.2 % % Basophils 0.6 % Neutrophils Absolute (A) 5.4 1.5 - 6.6 X10E9/L Lymphocytes Absolute 0.7 (L) 1.0 - 3.5 X10E9/L Monocytes Absolute 0.8 0 - 0.9 X10E9/L Eosinophils Absolute 0.2 0.0 - 0.4 X10E9/L Basophils Absolute 0.0 0.0 - 0.2 X10E9/L Phosphorus Collection Time: 10/25/24 5:25 AM Result Value Ref Range Phosphorus 9.1 (H) 2.4 - 4.9 mg/dL POCT Ionized Calcium Collection Time: 10/25/24 7:50 AM Result Value Ref Range Portable ICA 4.1 (L) 4.5 - 5.3 mg/dL Potassium Collection Time: 10/25/24 3:55 PM Result Value Ref Range Potassium, Bld 5.3 (H) 3.5 - 5.0 mmol/L CK Total Collection Time: 10/25/24 3:55 PM Result Value Ref Range Total CK 27 24 - 195 U/L Magnesium Collection Time: 10/25/24 3:55 PM Result Value Ref Range Magnesium 1.7 (L) 1.8 - 2.6 mg/dL Comprehensive metabolic panel Collection Time: 10/26/24 4:13 AM Result Value Ref Range Sodium 139 134 - 146 mmol/L Potassium, Bld 5.1 (H) 3.5 - 5.0 mmol/L Chloride 108 98 - 109 mmol/L CO2 19 (L) 22 - 32 mmol/L Anion gap 12 5 - 15 mmol/L BUN 102 (H) 5 - 27 mg/dL Creatinine 4.28 (H) 0.70 - 1.20 mg/dL Glucose 140 (H) 65 - 99 mg/dL Calcium 7.6 (L) 8.5 - 10.5 mg/dL Total Protein 5.4 (L) 6.0 - 8.0 g/dL Albumin 1.9 (L) 3.2 - 5.3 g/dL Alkaline Phosphatase 59 39 - 130 U/L AST 13 0 - 41 U/L ALT 7 0 - 40 U/L Total bilirubin 0.7 0.3 - 1.2 mg/dL eGFR (CKD-EPI)non-race dependent 15 (L) >59 ml/min/1.73sq.m Magnesium Collection Time: 10/26/24 4:13 AM Result Value Ref Range Magnesium 1.5 (L) 1.8 - 2.6 mg/dL CBC auto differential Collection Time: 10/26/24 4:13 AM Result Value Ref Range White Blood Cells 6.0 4.0 - 11.0 X10E9/L RBC count 2.53 (L) 4.10 - 5.70 X10E12/L Hemoglobin 7.5 (L) 13.0 - 17.0 g/dL Hematocrit 22.3 (L) 39 - 49 % MCV 88 80 - 100 fL MCH 29.5 27 - 34 pg MCHC 33.5 32 - 36 g/dL RDW 16.5 (H) 11.5 - 15.0 % Platelets 113 (L) 150 - 450 X10E9/L MPV 8.3 7 - 12 fL % neutrophils 78.4 % % lymphocytes 8.5 % % monocytes 8.9 % % eosinophils 3.6 % % Basophils 0.6 % Neutrophils Absolute (A) 4.7 1.5 - 6.6 X10E9/L Lymphocytes Absolute 0.5 (L) 1.0 - 3.5 X10E9/L Monocytes Absolute 0.5 0 - 0.9 X10E9/L Eosinophils Absolute 0.2 0.0 - 0.4 X10E9/L Basophils Absolute 0.0 0.0 - 0.2 X10E9/L CK Total Collection Time: 10/26/24 4:13 AM Result Value Ref Range Total CK 20 (L) 24 - 195 U/L Radiology MR lower leg left without contrast Result Date: 10/25/2024 Narrative: HISTORY: A 64-year-old male with the history of the displaced comminuted fracture of the left distal femur. Abnormal x-rays. Complaining of the pain. TECHNIQUE: Multiplanar and multisequence MRI examination of the left lower leg is performed. COMPARISON: Comparison is made with the plain film radiographs of the left knee of 10/22/2024. FINDINGS: Recent knee radiographs reveal displaced comminuted fracture of the distal femur with the deformity. There is a deformity of the proximal tibia. MRI examination reveals a small cystic area in the proximal tibia and measures 2 cm. Appearance of the proximal tibia is suggestive of sequelae of the old trauma. No acute fracture is identified in the tibia. Fibula is intact. There is a joint effusion in the left knee. Menisci appear intact. Left ankle joint is intact with small joint effusion. There is a heterogeneous signal in the muscles of the lower legs is edema. No focal hematoma is identified. There is a diffuse swelling of the superficial soft tissues of the lower leg consistent with the edema. No focal fluid collection or hematoma is identified. IMPRESSION: * There is a deformity of the proximal tibia with appearance of the old healed fracture. A 2 cm cystic abnormality seen in the proximal tibia. No recent fractures are seen in the tibia and fibula. * There is a displaced comminuted fracture of the distal femur with the deformity. * Fluid collection in the left knee and left ankle joints. * Diffuse soft tissue edema in the left lower leg. No focal fluid collection or hematoma is identified. Finalized by Ramirez Hutchison MD on 10/25/2024 9:58 AM X-ray femur left 2+ views Result Date: 10/22/2024 Narrative: XR FEMUR LT 2+ VIEWS Clinical history:trauma and deformity acute leg pain. Comparison: None. Impression: Comminuted impacted mildly angulated and displaced distal femoral fracture. Diffuse osteopenia and demineralization. No definitive proximal injury. The proximal femur and hip are not fully visualized on the provided imaging. Finalized by Morgan Steele MD on 10/22/2024 3:03 PM X-ray knee left 3 views Result Date: 10/22/2024 Narrative: History: Pain/hematuria. Chronic renal disease.. Quadriplegia Study: Left Knee Three view study. Comparison: None Impression: Comminuted distal femoral fracture is appreciated. Severe osteoporosis is noted. More chronic appearing deformity in the proximal tibia. Follow-up with orthopedics is advised.. 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 Procedure: 1. Ultrasound-guided access into a vein as below. 2. Fluoroscopically guided tunneled hemodialysis catheter placement. Radiologist: Dr. Izquierdo Anesthesia: Continuous monitoring was provided by independent qualified radiology nursing personnel under physician supervision. Medications: 100 mcg of fentanyl Contrast: None Fluoroscopy time: 0.4 minutes Reference air Kerma: 3 mGy Complications None. Conscious sedation time: None Technique: Risks, benefits, and alternatives were discussed. All questions were answered and informed consent was obtained. Automated radiation exposure lowering techniques were utilized. Hand hygiene performed. The neck and chest were prepped and draped in the appropriate sterile fashion. A initial ultrasound of the neck demonstrated a patent, compressible vein free of clot suitable for access. A permanent ultrasound image was obtained. Under ultrasound guidance, a micropuncture needle was advanced into the vein. Nonpulsatile blood was noted. An 018 wire was advanced appropriately to confirm venous placement and the needle exchanged for the micropuncture dilator set. Attention was then turned to creation of the tunnel. The skin exit site was chosen. Local anesthesia was instilled and a skin wero made. Local anesthesia was administered into the tunnel. The catheter was tunneled to the neck access site. The micropuncture set was upsized over an 035 Amplatz to a peel-away sheath. The tip of the catheter was then passed through the peel-away sheath after wire removal. A final AP image of the chest demonstrated tip of the catheter to reside at the cava atrial junction. The catheter genevieve and flushed easily. A cap was placed. 2-0 silk suture was used to secure the catheter at the skin exit site. Skin glue was used at the neck access site. Sterile dressings were placed at the skin exit site. Patient left the angiography suite in stable condition. Impression: Status post placement of a right internal jugular vein single lumen 5 Austrian by 19 cm tip to cuff tunneled central venous catheter. The catheter is okay to use. Finalized by Juana Izquierdo MD on 10/13/2024 5:39 PM MR ankle right without contrast Result Date: 10/08/2024 Narrative: MR RIGHT ANKLE CLINICAL INFORMATION: Pain. COMPARISON: None. PROCEDURE: Routine MRI of the ankle performed. Multisequence, multiplanar imaging was obtained. FINDINGS: OSSEOUS STRUCTURES AND JOINTS Bones: No acute bone marrow signal abnormality in the ankle region. Tibiotalar joint: Small joint effusion. Chondral thinning. No osteochondral injury. Subtalar joint: No focal abnormality. Tarsal joints: Within normal limits. SOFT TISSUES Muscles: No gross muscular abnormality. Tarsal tunnel: Normal. Sinus tarsi: Normal. Plantar fascia: No gross abnormality. Intact aponeurotic attachment. There is abnormal signal within the subcutaneous and cutaneous signals of the plantar aspect of the heel and along the lateral aspect of the ankle region. Subcutaneous heterogeneity is present compatible with edema. TENDONS Achilles tendon: Normal distally. Posterior tibial tendon: Normal. Flexor digitorum longus tendon: Normal. Flexor hallucis longus: Normal. Peroneus longus tendon: Normal. Peroneus brevis tendon: Normal. Peroneal retinaculum: Normal. Anterior tibial tendon: Normal. Extensor hallucis longus: Normal. Extensor digitorum longus: Normal. LIGAMENTS Anterior inferior tibiofibular (syndesmotic) ligament: Normal. Posterior inferior tibiofibular (syndesmotic) ligament: Normal. Anterior talofibular ligament: Normal. Posterior talofibular ligament: Normal. Calcaneofibular ligament: Normal. Deltoid ligament complex (superficial): Normal. Deltoid ligament complex (deep): Normal. Spring ligament: Within normal limits. IMPRESSION: 1. Cutaneous and subcutaneous irregularity along the dorsal aspect of the ankle and in the plantar aspect of the heel compatible with edema/cellulitis. No abscess or focal abnormality evident. 2. No osseous abnormality within the ankle region. 3. No gross ligamentous or musculotendinous injury. Finalized by Jeremías Vegas MD on 10/08/2024 1:31 PM Vas art doppler lwr bilat mult lev/PVR Result Date: 10/07/2024 Narrative: Right: Essentially normal PVR waveform contour at all levels. No calf waveform augmentation noted. PT SHANTA is 0.92; DP SHANTA is 1.00. Multiphasic with diastolic flow reversal PT and DP, CW Doppler waveforms. Left: Essentially normal PVR waveform contour at all levels. No calf waveform augmentation noted. PT SHANTA is 0.96; DP SHANTA is 0.92. Multiphasic with diastolic flow reversal PT and DP, CW Doppler waveforms. General: Brachial pressures could not be performed due to patient positioning difficulties. Conclusions: BILATERAL:Normal lower extremity SHANTA at rest. Unable to obtain left brachial pressure due to patient positioning. Recommendations: Any questions prior to finalization, please call the reading physician during normal business hours at the phone number beside their name. Vas art duplex lwr bilateral Result Date: 10/06/2024 Narrative: Right: Plaque and spectral waveforms with diastolic flow reversal noted in the external iliac, common femoral, deep femoral, superficial femoral, popliteal, peroneal, posterior and anterior tibial artery without significant color flow disturbance. Left: Plaque with multiphasic waveforms and diastolic flow reversal in the common femoral, deep femoral, proximal thru mid superficial femoral and anterior tibial artery. Low resistive and hyperemic distal SFA waveforms. Monophasic popliteal, posterior tibial and peroneal artery waveforms. General: In-patient, bedside examination. Conclusions: BILATERAL: Arterial plaque with no hemodynamically significant stenosis of the lower extremity. Recommendations: Any questions prior to finalization, please call the reading physician during normal business hours at the phone number beside their name. EEG Video Monitoring Daily Result Date: 10/05/2024 Narrative: Images from the original result were not included. [facility] EEG Report EEG Service Date: 10/05/2024 06:00 until 10/04/2026 11:07. Day 3 of recording Date of Report: 10/05/2024 History: 63 year old man with concern for seizures Medications: Fentanyl Technique: This EEG was acquired with electrodes placed according to the 10-20 electrode placement system. A single EKG channel was recorded for cardiac rhythm monitoring. Video was recorded simultaneously. The quality of recording was good. The entire EEG study along with video for selected events was reviewed. EEG Classification: Abnormal I State of Consciousness: Awake and asleep EEG Findings: 1.) Dominant Rhythm: A PDR of up to 6 Hz was seen 2.) Background: The background was slow, with a PDR of up to 6 Hz. Reactivity to external stimuli was appreciated. Slow wave stage N3 sleep was seen often. EKG artifact was seen at times. 3.) There is continuous slow, generalized, underlying delta > theta waves, seen throughout the recording. 4.) HR 60-62 BPM, regular Impression: This vEEG is indicative of mild to moderate diffuse encephalopathy. No epileptiform discharges or lateralizing signs were seen. In comparison with yesterday's recording, there is no significant change. Court De Los Santos MD [facility] EEG Video Monitoring Daily Result Date: 10/05/2024 Narrative: Images from the original result were not included. [facility] [employer] EEG Report EEG Service Date: 10/04/2024 06:00 until 10/04/2026 23:02. Day 2 of recording Date of Report: 10/05/2024 History: 63 year old man with concern for seizures Medications: Fentanyl Technique: This EEG was acquired with electrodes placed according to the 10-20 electrode placement system. A single EKG channel was recorded for cardiac rhythm monitoring. Video was recorded simultaneously. The quality of recording was good. The entire EEG study along with video for selected events was reviewed. EEG Classification: Abnormal I State of Consciousness: Awake and asleep EEG Findings: 1.) Dominant Rhythm: A PDR of up to 6 Hz was seen 2.) Background: The background was slow, with a PDR of up to 6 Hz. Reactivity to external stimuli was appreciated. Slow wave stage N3 sleep was seen often. EKG artifact was seen throughout the recording. 3.) There is continuous slow, generalized, underlying delta > theta waves, seen throughout the recording. 4.) HR 60-64 BPM, regular Impression: This vEEG is indicative of mild to moderate diffuse encephalopathy. No epileptiform discharges or lateralizing signs were seen. In comparison with yesterday's recording, there is a slight improvement due to a decrease in the degree of encephalopathy. Court De Los Santos MD [facility] EEG Video Monitoring Daily Result Date: 10/05/2024 Narrative: Images from the original result were not included. [facility] [employer] EEG Report EEG Service Date: 10/04/2024 00:12 until 10/04/2026 06:00. Day 1 of recording Date of Report: 10/04/2024 History: 63 year old man with concern for seizures Medications: Fentanyl Technique: This EEG was acquired with electrodes placed according to the 10-20 electrode placement system. A single EKG channel was recorded for cardiac rhythm monitoring. Video was recorded simultaneously. The quality of recording was good. The entire EEG study along with video for selected events was reviewed. EEG Classification: Abnormal II State of Consciousness: Stupor EEG Findings: 1.) Dominant Rhythm: No clear PDR was seen 2.) Background: The background was slow, without a PDR. Reactivity to external stimuli was appreciated. No progressive sleep stages were seen. Of note, EMG artifact was seen often during the recording. 3.) There is continuous slow, generalized, underlying delta > theta waves, seen throughout the recording. 4.) HR 60-64 BPM, regular Impression: This vEEG is indicative of moderate diffuse encephalopathy. No epileptiform discharges or lateralizing signs were seen. EMG artifact was seen throughout the recording. 10 uV Sensitivity, EMG artifact Court De Los Santos MD [facility] Baseline Routine EEG Result Date: 10/04/2024 Narrative: Images from the original result were not included. [facility] EEG Report Length of Study: 30 minutes EEG Service Date: 10/03/2024 History: 63 year old man with concern for seizures Medications: Fentanyl Technique: This EEG was acquired with electrodes placed according to the 10-20 electrode placement system. A single EKG channel was recorded for cardiac rhythm monitoring. The quality of recording was good. EEG Classification: Abnormal II State of Consciousness: Stupor EEG Findings: 1.) Dominant Rhythm: No clear PDR was seen 2.) Background: The background was slow, without a PDR. Reactivity to external stimuli was appreciated. No progressive sleep stages were seen. 3.) Activating procedures: Hyperventilation was not performed. Photic stimulation was performed, but did not produce significant changes. 4.) There is continuous slow, generalized, underlying delta > theta waves, seen throughout the recording. 5.) HR 64-68 BPM, regular Impression: This EEG is indicative of moderate diffuse encephalopathy. No epileptiform discharges or lateralizing signs were seen. Court De Los Santos MD [facility] CT brain without contrast Result Date: 10/03/2024 Narrative: History: Transient alteration of awareness Technique: Contiguous axial images through the brain were obtained without the administration of intravenous contrast material. Automated exposure control was utilized. Comparison: 09/28/2024 Findings: The ventricles are normal in size. There is no evidence of midline shift. There are no areas of abnormal density to suggest presence of acute major vessel infarct, mass lesion, or hemorrhage. The visualized osseous structures are intact. Impression: Normal CT brain. All CT scans at this facility use dose modulation, iterative reconstruction, and/or weight based dosing when appropriate to reduce radiation dose to as low as reasonably achievable. Finalized by Magy Gutierres MD on 10/03/2024 11:03 PM X-ray chest 1 view Result Date: 10/03/2024 Narrative: EXAM: Chest, one view REASON FOR EXAM: dyspnea TECHNIQUE: Single AP view of the chest COMPARISON: 09/29/2024, 09/28/2024 FINDINGS: Right neck central line terminates projecting over the expected location of the SVC. The trachea is midline. Cardiomediastinal silhouette is prominent, enhanced by AP technique. There are questioned left retrocardiac air bronchograms. Possible small left pleural effusion. IMPRESSION: Possible left retrocardiac pulmonary infiltrate. Likely small left pleural effusion. Finalized by Sabina Garcia MD on 10/03/2024 9:58 PM MR ankle left without contrast Result Date: 10/03/2024 Narrative: History: Osteomyelitis suspected, ankle, xray done Wound left heel Comparison left calcaneus x-rays from October 01 PROCEDURE: Multiplanar multisequence images performed the left ankle MR ANKLE LT WO CONT Multiplanar multisequence MR imaging performed through the ankle. Findings: Extensive edema within the calcaneus consistent with osteomyelitis at its posterior aspect. Mild reactive retrocalcaneobursitis and periostitis along the plantar aspect of the calcaneus Moderate reactive effusion tibiotalar and subtalar joint Extensive soft tissue swelling of the subcutaneous tissues along the lateral dorsum of the foot which could be edema and/or cellulitis. No well-defined abscess Mild arthritic findings of the intertarsal articulations Plantar fascia unremarkable. The Achilles tendon, the peroneal tendons, and the tendons of the tarsal tunnel are unremarkable. The deltoid ligaments, talofibular ligaments, and calcaneofibular ligaments are unremarkable. The sinus tarsi is unremarkable. Angle of Gissane is unremarkable. The talar dome, tibiotalar joint, and subtalar joint are otherwise unremarkable Lisfranc ligament intact IMPRESSION: Extensive edema within the calcaneus consistent with osteomyelitis at its posterior aspect. Mild reactive retrocalcaneal bursitis and periostitis along the plantar aspect of the calcaneus Moderate reactive effusion tibiotalar and subtalar joint Extensive soft tissue swelling of the subcutaneous tissues along the lateral dorsum of the foot which could be edema and/or cellulitis. No well-defined abscess Mild arthritic findings of the intertarsal articulations Finalized by Rigoberto Mobley MD on 10/03/2024 8:51 PM X-ray calcaneus left [place] 2 views Result Date: 10/02/2024 Narrative: History: Evaluate for osteomyelitis. Exam/Technique: AP and Hale view of the calcaneus. Comparison: 09/07/2024. Findings: Marked osteopenia. Marked soft tissue swelling of the midfoot. No emphysematous changes. Significant remodeling of the hindfoot articulations with likely degenerative changes. No destructive changes of the calcaneus. IMPRESSION: No destructive changes of the calcaneus or the talocalcaneal articulation. Marked soft tissue edema and swelling. Finalized by Sree Weber MD on 10/02/2024 1:03 AM X-ray chest 1 view Result Date: 09/29/2024 Narrative: HISTORY: Central line placement COMPARISON: Chest x-ray 09/28/2024 FINDINGS: Portable AP upright view of the chest was performed. Right jugular venous catheter tip overlies the SVC. Cardiac silhouette is enlarged but stable. Left basilar airspace disease. No significant vascular congestion, pleural effusion or pneumothorax. Partially visualized cervical fusion hardware. IMPRESSION: * Appropriately positioned right jugular venous catheter. * Left basilar atelectasis versus pneumonia. Finalized by Quincy Newell MD on 09/29/2024 10:19 AM X-ray chest 1 view Result Date: 09/28/2024 Narrative: XR CHEST 1 VW 09/28/2024 10:45 PM INDICATION: Chest pain COMPARISON: [facility] dating back to 08/23/2024 TECHNIQUE: AP portable upright view the chest was obtained. FINDINGS: Left basilar patchy opacity. There is no pneumothorax. Similar mild blunting of the right costophrenic angle.. The cardiomediastinal silhouette is unremarkable. No acute osseous abnormalities. IMPRESSION: Left basilar patchy opacity, nonspecific possibly related to pneumonia in the appropriate clinical setting. Finalized by Morgan Horvath on 09/28/2024 11:18 PM DISCHARGE ASSESSMENT & PLAN No change in medications DISCHARGE INSTRUCTION Disposition: ECF Condition: Stable Activity: activity as tolerated not weight-bearing to left lower extremity Diet: Adult diet Regular Texture; No Added Salt (3-4 gm Sodium); Low Phosphorus (800-1000 mg), Low Potassium (50-70 mEq); Low Fat/Low Cholesterol Adult diet Follow up: LAWANDA GROVE MD within 7-14 days. Follow-up with orthopedics Labs/Imaging/Pathology: None Discharge Medications: Medication List START taking these medications Instructions Last Dose Given Next Dose Due sodium polystyrene powder for suspension Commonly known as: KAYEXALATE Take 15 g by mouth in the morning for 10 doses. CONTINUE taking these medications Instructions Last Dose Given Next Dose Due B complex-vitamin C-folic acid 100-1 mg tablet Commonly known as: DIALYVITE Take 1 tablet by mouth in the morning. bumetanide 2 mg tablet Commonly known as: BUMEX Take 1 tablet (2 mg total) by mouth daily as needed (For increasing leg swelling). cyanocobalamin 1000 MCG tablet Take 1 tablet (1,000 mcg total) by mouth in the morning. DAPTOmycin 625 mg in sodium chloride 0.9 % 50 mL IVPB Infuse 625 mg into a venous catheter every other day for 34 days. * fentaNYL 100 mcg/hr Commonly known as: DURAGESIC Place 1 patch on the skin every third day. Alternating every other placement with 50 mcg patch NOT 150 mcg total * fentaNYL 50 mcg/hr Commonly known as: DURAGESIC Place 1 patch on the skin every third day. Alternating every other placement with 100 mcg patch NOT 150 mcg total ferrous sulfate 325 (65 FE) mg tablet Take 1 tablet (325 mg total) by mouth daily with breakfast. fluconazole 150 mg tablet Commonly known as: DIFLUCAN Take 2 tablets (300 mg total) by mouth in the morning for 34 days. gabapentin 300 mg capsule Commonly known as: NEURONTIN Take 1 capsule (300 mg total) by mouth once daily at bedtime. * heparin lock flush (porcine) 10 unit/mL injection Infuse 1-5 mL (10-50 Units total) into a venous catheter as needed (line care per nursing agency protocol.). * heparin lock flush (porcine) injection 100 unit/mL solution Infuse 1-5 mL (100-500 Units total) into a venous catheter as needed (line care per nursing agency protocol.). meropenem 500 mg in sodium chloride 0.9 % 50 mL IVPB MINI-BAG Plus Infuse 500 mg into a venous catheter daily for 34 days. midodrine 5 mg tablet Commonly known as: PROAMATINE Take 1 tablet (5 mg total) by mouth 3 (three) times a day as needed (systolic blood pressure <90) for up to 90 days. sevelamer 800 mg tablet Commonly known as: RENVELA Take 2 tablets (1,600 mg total) by mouth in the morning and 2 tablets (1,600 mg total) at noon and 2 tablets (1,600 mg total) in the evening. Take with meals. sodium chloride injection Infuse 10-20 mL into a venous catheter as needed for line care (line care per nursing agency protocol.). tolterodine 1 mg tablet Commonly known as: DETROL Take 2 tablets (2 mg total) by mouth in the morning and 2 tablets (2 mg total) before bedtime. * This list has 4 medication(s) that are the same as other medications prescribed for you. Read the directions carefully, and ask your doctor or other care provider to review them with you. Where to Get Your Medications These medications were sent to [facility]/pharmacy #[id number] [place] [address] AT [place] [id number] sodium polystyrene powder for suspension >30 minutes were spent on discharging this patient. Alan Powell APRN-RADHA, 10/26/2024 4:32 PM [facility] 7AM-7PM (all facilities): EpicChat or page through [employer]. 7PM-7AM ([facility], [facility]): EpicChat or page, [phone]. 7PM-7AM ([place], [place], [place], [place] and [facility]): EpicChat or page through [employer]. This note is dictated with the use of M*Modal. Please note that this dictation was completed with computer voice recognition software. Quite often unanticipated grammatical, syntax, homophones, and other interpretive errors are inadvertently transcribed by the computer software. Please disregard these errors. Please excuse any errors that have escaped final proofreading. JUDITH Serrato 10/26/24 1614 Physician Attestation I, Jose Garcia MD, personally performed a face to face diagnostic evaluation on this patient. I have reviewed the note authored by the advance practice provider including history, review of systems,physical examination,medical decision making and agree with the assessment and plan as written. I have seen and evaluated the patient, I have repeated the beard portions of the physical exam and concur with the KADEEM findings. I have reviewed all laboratory findings and imaging reports/films. I agree with the plan as noted. Patient cardioplegic with CKD 5 not on chronic dialysis, hyperkalemia was admitted with left femur fracture. Patient was managed conservatively per Orthopedic surgery. Kayexalate 15 g daily for 10 days for hyperkalemia recheck BMP in 1 week. PCP in 1 week Follow up with Orthopedics in 10 days [facility] Progress note Formatting of t his note might be different from the original. DISCHARGE PLANNING NOTE Preadmission Screening & Resident Review (PASSR) PASSR completed via the [employer] ([place] Electronic Notification System) ODM 3622 (long form) completed and submitted? yes Is a Level II Evaluation required? no SNF notified on CarePort of PASSR completion. yes - Karen Barron 10/26/24 12:11 PM [facility] Progress note Formatting of t his note is different from the original. Occupational Therapy Evaluation Discharge Recommendations OT Recommendations : Group Home Facility (versus [facility] care dependent on baseline) SNF/ECF Comments: OT recommends SNF at this time in order to promote maximum independence throughout his daily tasks, including transfers. Per patient at baseline, his spouse would assist with transfers but he is currently requiring assistance from 3 people. 6 Clicks: Daily Activity Putting on and taking off regular lower body clothing?: Total Bathing (including washing, rinsing, drying)?: Total Toileting, which includes using toilet, bedpan or urinal?: Total Putting on and taking off regular upper body clothing?: Total Taking care of personal grooming such as brushing teeth?: Total Eating meals?: Total Scoring Daily Activity Raw Score: 6 [facility] G Code Modifier: CN Therapy Plan Need for skilled Occupational Therapy to address deficits in ADL independence and functional mobility due to a status decline resulting from closed displaced comminuted fracture of shaft of L femur. Past Medical History: Diagnosis Date Chronic renal failure, stage 4 (severe) ([facility]) Quadriplegia ([facility]) Past Surgical History: Procedure Laterality Date BOWEL RESECTION COLON SURGERY COLOSTOMY DEBRIDEMENT LEFT HEEL Left 10/07/2024 Performed by David Dumont MD at [facility] ESOPHAGOGASTRODUODENOSCOPY DIAGNOSTIC N/A 09/02/2024 Performed by Maryann Villegas MD at [facility] ESOPHAGOGASTRODUODENOSCOPY DIAGNOSTIC N/A 08/30/2024 Performed by Maryann Villegas MD at [facility] SPINAL FUSION c5 and c6 VENA CAVA FILTER PLACEMENT 1998 No Current Skilled OT: No acute OT goals identified Assessment Patient Assessment Therapy Problem List: Decreased ADL status, Decreased balance, Decreased endurance, Decreased high-level ADLs, Decreased mobility, Decreased safe judgement during ADL Patient Response to Treatment: Tolerated evaluation without adverse reaction Mood/Affect: Appropriate for circumstances Rehab Prognosis: Fair, With continued OT status post acute discharge Visit RN Communication: Yes Medical Record Reviewed: Yes OT Type of Visit: Evaluation Precautions Activity: As tolerated, okay to evaluate Equipment: Slide board, maxi lift, bond, power wheelchair Weight Bearing Status: NWB LLE Telemetry/Rehabilitation Aide: Yes Oxygen Used: None Other: Quadraplegic, L femur fracture Pain Assessment Pain Assessment: 0-10 Pain Score: 10 ( It's nerve pain, 10 plus all the time. ) Home Living Type of Home: House Home Layout: One level, Ramped entrance Stairs to Enter: Ramp Bathroom Shower/Tub: Walk-in shower Bathroom Toilet: (One in each bathroom) Bathroom Equipment: Hand-held shower, Built-in shower seat Bathroom Accessibility: Accessible via wheelchair Home Equipment: Wheelchair-electric, Wheelchair-manual, Hospital bed (Slide board) Prior Function Lives With: Spouse Level of Mobility: Needs assistance with ADLs or functional transfers or gait Homemaking Assistance: Needs assistance Other: Patient's spouse provides total assistance for transfers. He is able to control his power chair with increased time. ADL / IADL Eating Assistance: Total assist Grooming Assistance: Total assist Bathing/Showering Assistance: Total assist Toilet/Commode Assistance: Total assist UE Dressing Assistance: Total assist LE Dressing Assistance: Total assist Other: Assessment of ability to perform ADLs based on clinical judgement/observation on patient's performance with bed mobility and transfer from bed to wheelchair. He required Total Assistance +3. He communicated strategies utilized at home. Patient requiring increased assistance due to LE fracture. Home Management - IADL Other: Assessment of ability to perform ADLs based on clinical judgement/observation on patient's performance with bed mobility and transfer from bed to wheelchair. He required Total Assistance +3. He communicated strategies utilized at home. Patient requiring increased assistance due to LE fracture. Hearing / Speech / Vision Hearing: Within Functional Limits Speech: Within Functional Limits Current Vision: Wears glasses all the time Bed Mobility Supine to Sit: Total assist (+3) Transfers Bed to Chair: Total assist (+3) Gait Other: Patient able to manipulate wheelchair controls with Modified independence. Balance Sitting Balance: Static: Poor Sitting Balance: Dynamic: Poor RUE Assessment: (Baseline limitations, minimal elbow ROM) LUE Assessment: (Baseline limitations, minimal elbow ROM) Activity Tolerance Endurance: Tolerates <30 minutes activity WITHOUT vital sign changes Plan Occupational Therapy Care Plan Occupational Therapy Care Plan (Active) There are no active problems. Occupational Therapy Care Plan (Resolved) There are no resolved problems. Principal Problem: Closed displaced comminuted fracture of shaft of left femur, initial encounter [place] Active Problems: Pressure injury of deep tissue of right heel Pressure injury of left heel, stage 4 ([facility] Pressure injury of sacral region, stage 3 ([facility] Quadriplegia, C1-C4, complete ([facility] Subacute osteomyelitis of left foot ([facility]) Stage 5 chronic kidney disease not on chronic dialysis ([facility] Iron deficiency anemia secondary to inadequate dietary iron intake [facility] 10-26-2024 Progress note Formatting of t his note is different from the original. Physical Therapy Evaluation Discharge Recommendations PT Recommendations: Group Home Facility (vs LTC dependent on baseline) SNF/ECF Comments: Patient would benefit from SNF at this time in order to improve transfers to only requiring 1 person assistance. At this time requiring 3 people for a safe transfer due to his fracture. Past Medical History: Diagnosis Date Chronic renal failure, stage 4 (severe) ([facility]) Quadriplegia ([facility]) Past Surgical History: Procedure Laterality Date BOWEL RESECTION COLON SURGERY COLOSTOMY DEBRIDEMENT LEFT HEEL Left 10/07/2024 Performed by David Dumont MD at [facility] ESOPHAGOGASTRODUODENOSCOPY DIAGNOSTIC N/A 09/02/2024 Performed by Maryann Villegas MD at [facility] ESOPHAGOGASTRODUODENOSCOPY DIAGNOSTIC N/A 08/30/2024 Performed by Maryann Villegas MD at [facility] SPINAL FUSION c5 and c6 VENA CAVA FILTER PLACEMENT 1999 04 Clicks: Basic Mobility Turning from your back to your side while in a flat bed without using bed rails?: Total Moving from lying on your back to sitting on side of flat bed without using bed rails?: Total Moving to and from bed to a chair (including w/c)?: Total Standing up from a chair using your arms (e.g. w/c or bedside chair)?: Total To walk in hospital room?: Total Climbing 3-5 steps with a railing?: Total Scoring 6 Clicks: Basic Mobility Raw Score: 6 [facility] G Code Modifier: CN Therapy Plan Need for skilled Physical Therapy to address deficits in functional mobility due to a status decline resulting from left femur fracture. PT Treatment/Interventions: Functional transfer training, LE strengthening/ROM, Endurance training, Balance, Stair training, Bed mobility, Gait training, Functional activities, Neuromuscular reeducation PT Frequency: 2-3days/week PT Duration: 10 days Patient Response to Treatment: Tolerated evaluation without adverse reaction Assessment Patient Assessment Therapy Problem List: Abnormal posture, Decreased balance, Decreased endurance, Decreased mobility, Decreased safe judgement during ADL, Decreased LE ROM, Decreased LE strength Patient Response to Treatment: Tolerated evaluation without adverse reaction Mood/Affect: Appropriate for circumstances Rehab Prognosis: Fair, With continued PT status post acute discharge Visit RN Communication: Yes Medical Record Reviewed: Yes PT Type of Visit: Evaluation Precautions Activity: Ok to evaluate per taylor JACKSON Equipment: slide board, maxi ski, bond catheter, motorized wheelchair Telemetry/Rehabilitation Aide: Yes Oxygen Used: room air Other: quadrapalegic, left femur fracture Subjective Physical Therapy Comments: Patient reports he is dependent at home and his does everything for him. Pain Assessment Pain Assessment: 0-10 Pain Score: 10 Pain Location: Generalized Home Living Type of Home: House Home Layout: One level, Ramped entrance Stairs to Enter: ramp Bathroom Shower/Tub: Walk-in shower Bathroom Equipment: Hand-held shower, Built-in shower seat Bathroom Accessibility: Accessible via wheelchair Home Equipment: Wheelchair-electric, Wheelchair-manual, Hospital bed (slide board) Prior Function Lives With: Spouse Receives Help From: Family Level of Mobility: Needs assistance with ADLs or functional transfers or gait Transfers: Total assist Homemaking Assistance: Needs assistance Other: pagtient reports he is total A at home for transfers. He is able to move wheelchair controls for mobility. Hearing / Speech / Vision Hearing: Within Functional Limits Speech: Within Functional Limits Current Vision: Wears glasses all the time Cognition Orientation Level: Oriented X4 Bed Mobility Supine to Sit: Total assist (+3) Transfers Bed to Chair: Total assist (+3) Lateral Transfers: Total assist Gait Wheelchair Mobility: Modified independent (with controls on motorized wheelchair) Balance Sitting Balance: Static: Poor Sitting Balance: Dynamic: Poor RLE Assessment: (0/5) LLE Assessment: (0/5) Activity Tolerance Endurance: Tolerates <30 minutes activity WITHOUT vital sign changes Plan Physical Therapy Care Plan Physical Therapy Care Plan (Active) Template: PT - Physical Therapy Problem: Bed Mobility Dates: Start: 10/26/24 Disciplines: PT Goal: Patient will perform bed mobility with Maximum Assist Dates: Start: 10/26/24 Expected End: 11/04/24 Description: Goal Description: Pt to perform bed mobility in order to be able to decrease risk of further skin breakdown. Disciplines: PT Problem: Transfers Dates: Start: 10/26/24 Disciplines: PT Goal: Patient will perform transfers with Maximum Assist Dates: Start: 10/26/24 Expected End: 11/04/24 Description: Goal Description: Pt to be able to safely transfer with least amount of assistance to demonstrate decreased need for caregiver assistance and ease with home transfers. Disciplines: PT Physical Therapy Care Plan (Resolved) There are no resolved problems. Principal Problem: Closed displaced comminuted fracture of shaft of left femur, initial encounter [place] Active Problems: Pressure injury of deep tissue of right heel Pressure injury of left heel, stage 4 ([facility] Pressure injury of sacral region, stage 3 ([facility] Quadriplegia, C1-C4, complete ([facility] Subacute osteomyelitis of left foot ([facility] Stage 5 chronic kidney disease not on chronic dialysis ([facility] Iron deficiency anemia secondary to inadequate dietary iron intake Hyperkalemia [facility] 10-26-2024 Progress note Formatting of t his note is different from the original. Images from the original note were not included. DISCHARGE PLANNING NOTE Follow-up Discharge Planning Progress Note Per RN during discharge transition rounds, barriers to discharge are: Await Ortho consult for plan of care. Discharge Plan: [facility] can accept. [facility] Await updated PT/OT notes. 1500: Discussed with RADHA Phillips and pt will DC today. CRF, therapy updates sent to [facility] and admissions updated. RN to finalize DC. Services Requested: Services Requested Patient expects to be discharged to:: [facility] Discharge Disposition: SNF SNF Name: [facility] SNF SNF SNF Accepted?: Yes Does the patient need discharge transportation arranged?: Yes Transportation Arranged: Ambulance Mobility issues discussed with transportation provider: No Patient choice offered: Yes List Provided: Yes CarePort List Provided: Group Home Facility Initial DC Assessment Completed: Yes DC Planning Complete Discharge Milestones: Yes Patient Goals: Patient/Caregiver Goals Patient/Caregiver Goals: Group Home Care Skilled [place] Care: Skilled Care (Short Term) Goals: Goals SNF (pt-stated) Evaluation of progress towards goal: Pt understands need for PT/OT evaluations; await MRI results. Agreeable to SNF. Updated goal: DC to [facility] today. CARLIE Ellison, 10/26/2024, 3:04 PM [facility] 10-25-2024 Plan of care note Problem: Multi-Drug Resistant Organism / Rule-Out Infection Prevention Goal: Prevent transmission of infection Description: INTERVENTIONS 1. Place patient in private room or in room with patient with same disease 2. Discard single-use items 3. Clean reusable equipment between patients 4. Wear gloves for direct and indirect contact with patient or contaminants 5. Change gloves between tasks and procedures 6. Wash hands before and after caring for each patient 7. Wear appropriate personal protective equipment in relation to the indicated isolation type 8. Place appropriate isolation signage on patient's door 9. Provide patient/ patient real estate representative with isolation education. Outcome: Progressing Note: Evaluation of progress towards goal: iv atb as ordered. Problem: Pain Goal: Patient goal is pain score less than 4, able to rest, and participant in treatment plan as appropriate Description: INTERVENTIONS: 1. Encourage patient or legal real estate representative to report early pain and ask for pain medicine when needed 2. Assess pain using appropriate pain scale and include the scale used when documenting 3. Administer analgesics based on type and severity of pain and evaluate response within appropriate time frame 4. Implement non-pharmacological measures as appropriate and evaluate response 5. Consider cultural and social influences on pain and pain management 6. Notify LIP if interventions ineffective or patient reports new pain 7. Monitor vital signs including pulse ox, end-tidal CO2 based on pain intervention 8. Reassess pain per policy 9. Teach patient or legal real estate representative interventions for comforting Outcome: Progressing Note: Evaluation of progress towards goal: pt wearing fentanyl patch Problem: Safety Goal: Patient will be injury free during hospitalization Description: INTERVENTIONS: 1. Assess patient's risk for falls and implement fall prevention plan of care per policy 2. Provide and maintain a safe environment 3. Proper use of double Identifiers 4. Medication administration using the 5 rights 5. Hand hygiene 6. Specimens are labeled at the bedside 7. Instruct patient/ patient real estate representative about use of safety devices 8. Include patient/ patient real estate representative in decisions related to safety Outcome: Progressing Note: Evaluation of progress towards goal: pt free of injury. Problem: Infection Goal: Absence of infection during hospitalization Description: INTERVENTIONS 1. Assess and monitor for signs and symptoms of infection. 2. Monitor lab/diagnostic results. 3. Monitor all insertion sites i.e., indwelling lines, tubes and drains. 4. Monitor endotracheal (as able) and nasal secretions for changes in amount and color. 5. Administer medications as ordered. 6. Instruct and encourage patient and family to use good hand hygiene technique. 7. Identify and instruct patient/patient real estate representative in use of appropriate isolation precautions for identified infection/symptoms. 8. Provide and discuss with patient/patient real estate representative on educational MDRO sheet. 9. Encourage and monitor nutritional status daily and consult clothes separator if indicated. 10. Implement neutropenic guidelines as needed. Outcome: Progressing Note: Evaluation of progress towards goal: iv atb as ordered. Problem: Knowledge Deficit Goal: Patient/patient real estate representative demonstrates understanding of disease process, treatment plan, medications, and discharge instructions Description: INTERVENTIONS 1. Complete learning assessment and assess knowledge base 2. Provide teaching at level of understanding 3. Provide teaching via preferred learning method(s) Outcome: Progressing Note: Evaluation of progress towards goal: pt updated on plan of care. Problem: Discharge Planning Goal: Discharge to post-acute care, other facility, or home with appropriate resources Description: Patient's goal is: INTERVENTIONS 1. Conduct assessment to determine patient/family and health care team treatment goals, and need for post-acute services based on payer coverage, community resources, and patient preferences, and barriers to discharge 2. Coordinate with Social work, Care Navigation, and Utilization Review to arrange appropriate level of services according to patient's needs based on patient preference and payer coverage in collaboration with the physician and health care team 3. Address psychosocial, clinical, and financial barriers to discharge as identified in assessment in conjunction with the patient/family and health care team 4. Consult appropriate ancillary services (i.e.. PT/OT/ST, etc) as needed 5. Communicate with and update the patient/family, physician, and health care team regarding progress on the discharge plan 6. Identify discharge learning needs (meds, wound care, etc). 7. Arrange for needed discharge transportation as appropriate Outcome: Progressing Note: Evaluation of progress towards goal: d/c to snf. Problem: Potential for Compromised Skin Integrity Goal: Skin integrity is maintained or improved Description: Patient's goal is: INTERVENTIONS 1. Perform initial skin assessment on admission and as needed 2. Turn patient every 2 hours and PRN 3. Relieve pressure to bony prominences 4. Avoid shearing 5. Keep skin clean and dry 6. Alternate a full bath with partial baths for elderly 7. Apply lotion/moisturizer on skin 8. Monitor patient's hygiene practices 9. Float heels 10. Collaborate with interdisciplinary team and initiate plans and interventions as needed Outcome: Progressing Note: Evaluation of progress towards goal: wound care as ordered. Goal: Patient's nutritional intake is adequate Description: Patient's goal is: INTERVENTIONS 1. Assess and monitor food intake and supplements, patient food preferences, nausea, vomiting, labs, oral cavity (gums, teeth, tongue, mucosa), proper denture fit, and cultural beliefs 2. Monitor for signs of hypoglycemia and hyperglycemia 3. Collaborate with interdisciplinary team and initiate plan and interventions as ordered 4. Monitor patient's weight 5. Assist patient with meals/food selection 6. Assist patient with eating 7. Allow adequate time for meals 8. Provide pleasant environment during mealtime 9. Increase social contact during mealtimes 10. Plan activities to conserve energy 11. Encourage/perform oral hygiene as appropriate 12. Encourage patient to take dietary supplement as ordered 13. Collaborate with clinical clothes separator 14. Include patient/ patient's real estate representative in decisions related to nutrition Outcome: Progressing Note: Evaluation of progress towards goal: good intake. Problem: Urinary Incontinence Goal: Perineal skin integrity is maintained or improved Description: INTERVENTIONS 1. Assess genitourinary system, perineal skin, labs (urinalysis), and history of incontinence to include past management, aggravating, and alleviating factors 2. Keep skin clean and dry 3. Apply skin protectant 4. Develop skin care regimen 5. Provide privacy when changing patients incontinence device to maintain their dignity 6. Consider placing an indwelling catheter 7. Collaborate with interdisciplinary team and initiate plans and interventions as needed Outcome: Progressing Note: Evaluation of progress towards goal: bond maintained. Problem: Moderate - High Risk Fall Score Description: Patiño Fall Score of =/> 25 or indicated by [facility] Assessment Goal: Patient should be free from fall Description: Interventions: 1. [place] to environment 2. Hourly rounds addressing the 4 P's (Pain, Positioning, Possessions, Potty) 3. Clear area of hazards (spills, clutter, electrical cords, unnecessary equipment) 4. Place equipment (bed & TV controls, call light, phone, urinal) within reach 5. Encourage patient to wear glasses and hearing aides as appropriate 6. Maintain bed in lowest position 7. Lock wheels on bed/wheelchair 8. Provide adequate lighting, including night light 9. Assess need for additional bedding, food/fluids, pain med's prior to sleep/routinely 10. Provide gripper slippers or personal non-skid footwear 11. Teach patient and patient real estate representative to maintain environment for safety and engage in all aspects of fall prevention program 12. Remind patient to call for help before getting out of bed 13. Initiate bed/chair/exit alarms supportive devices as appropriate, (chair wedge, no-skid floor mat, raised edge mattress, hip protectors) 14. Locate patient bed assignment for optimal visualization 15. Evaluate and identify Safe Patient Handling Equipment needs 16. Provide supervision when out of bed or chair 17. Utilize gait belt as needed to assist with ambulation 18. Place adaptive equipment (cane, walker) within reach 19. Request patient real estate representative bring adaptive equipment/mobility aids from home or obtain and provide as needed 20. Consult pharmacy regarding effects of med's affecting mobility, cognition, and alternatives 21. Obtain physician order for PT if risk factors associated with mobility are present 22. Obtain physician order for OT as appropriate 23. Utilize diversional activities 24. Educate patient and patient real estate representative how to maintain a safe environment during visitation times (notify nurse prior to leaving bedside) 25. Consider appropriateness of medical or non-medical lab specialist 26. Set up voiding schedule as appropriate (every 2 hours) Outcome: Progressing Note: Evaluation of progress towards goal: pt free of falls. [facility] 10-25-2024 History of Present illness Narrative Images from the original note were not included. [facility] [address] [facility] [id number] Hospital Medicine Progress Note Patient: Jessica Price Date of : 1960 Room: PCP: LAWANDA GROVE MD Admission date: 10/22/2024 2:01 PM Encounter date: 10/25/24 SUBJECTIVE Chief complaints: Chief Complaint Patient presents with Abnormal Lab Interval History: Status: improved. No overnight events or new complaints. Status post 2 units packed red blood cells on 10/23/2024. Hemoglobin remaining stable since transfusion. Review of Systems Review of Systems Respiratory: Negative for shortness of breath. Cardiovascular: Negative for chest pain. Gastrointestinal: Negative for abdominal pain. Musculoskeletal: Positive for arthralgias, gait problem and myalgias. OBJECTIVE BP 133/76 Pulse 96 Temp 37.2 C (99 F) (Oral) Resp 16 Ht 182.9 cm (6') Wt 85.3 kg (188 lb) SpO2 94% BMI 25.50 kg/m Intake/Output Summary (Last 24 hours) at 10/25/2024 1543 Last data filed at 10/25/2024 1435 Gross per 24 hour Intake 760 ml Output 1600 ml Net -840 ml Physical Exam Physical Exam Constitutional: General: He is not in acute distress. HENT: Mouth/Throat: Mouth: Mucous membranes are moist. Eyes: Conjunctiva/sclera: Conjunctivae normal. Cardiovascular: Rate and Rhythm: Normal rate and regular rhythm. Pulmonary: Effort: Pulmonary effort is normal. Breath sounds: Normal breath sounds. Abdominal: Palpations: Abdomen is soft. Tenderness: There is no abdominal tenderness. Comments: Colostomy in place Genitourinary: Comments: Bond catheter in place. Clear yellow urine in drainage bag Musculoskeletal: Right lower leg: No edema. Left lower leg: No edema. Skin: General: Skin is warm and dry. Coloration: Skin is pale. Comments: Dressing to coccyx and bilateral heels dry and intact Neurological: Mental Status: He is alert. Mental status is at baseline. Motor: Atrophy and abnormal muscle tone present. Comments: Quadriplegia Medications Scheduled: cyanocobalamin, 1,000 mcg, oral, Daily DAPTOmycin (CUBICIN) 625 mg in sodium chloride 0.9 % 50 mL IVPB, 625 mg, intravenous, Q48H fentaNYL, 1 patch, transdermal, Q72H [START ON 10/29/2024] fentaNYL, 1 patch, transdermal, Once every 6 days [START ON 10/26/2024] fentaNYL, 1 patch, transdermal, Once every 6 days ferrous sulfate, 325 mg, oral, Daily with breakfast fluconazole, 300 mg, oral, Daily gabapentin, 300 mg, oral, HS iron sucrose, 200 mg, intravenous, Daily meropenem, 500 mg, intravenous, Q12H sevelamer, 1,600 mg, oral, TID with meals sodium hypochlorite, 1 Application, topical, BID trospium, 20 mg, oral, Nightly Infusions: dextrose 5 % in water, 100 mL/hr sodium chloride 0.9 %, 20 mL/hr As Needed: acetaminophen dextrose dextrose 5 % in water [COMPLETED] insulin regular AND dextrose 50 % in water (D50W) AND [COMPLETED] dextrose 50 % in water (D50W) dextrose 50 % in water (D50W) glucagon (human recombinant) midodrine ondansetron sodium chloride sodium chloride sodium chloride 0.9 % Allergies: Ancef [cefazolin], Iodinated contrast media, Promethazine, and Sulfamethoxazole-trimethoprim Labs Recent Results (from the past 24 hours) Potassium Collection Time: 10/24/24 5:00 PM Result Value Ref Range Potassium, Bld 4.9 3.5 - 5.0 mmol/L Comprehensive metabolic panel Collection Time: 10/25/24 5:25 AM Result Value Ref Range Sodium 137 134 - 146 mmol/L Potassium, Bld 5.4 (H) 3.5 - 5.0 mmol/L Chloride 105 98 - 109 mmol/L CO2 17 (L) 22 - 32 mmol/L Anion gap 15 5 - 15 mmol/L BUN 97 (H) 5 - 27 mg/dL Creatinine 4.31 (H) 0.70 - 1.20 mg/dL Glucose 105 (H) 65 - 99 mg/dL Calcium 7.3 (L) 8.5 - 10.5 mg/dL Total Protein 5.1 (L) 6.0 - 8.0 g/dL Albumin 1.9 (L) 3.2 - 5.3 g/dL Alkaline Phosphatase 57 39 - 130 U/L AST 12 0 - 41 U/L ALT 9 0 - 40 U/L Total bilirubin 0.7 0.3 - 1.2 mg/dL eGFR (CKD-EPI)non-race dependent 14 (L) >59 ml/min/1.73sq.m Magnesium Collection Time: 10/25/24 5:25 AM Result Value Ref Range Magnesium 1.5 (L) 1.8 - 2.6 mg/dL CBC auto differential Collection Time: 10/25/24 5:25 AM Result Value Ref Range White Blood Cells 7.1 4.0 - 11.0 X10E9/L RBC count 2.43 (L) 4.10 - 5.70 X10E12/L Hemoglobin 7.2 (L) 13.0 - 17.0 g/dL Hematocrit 21.5 (L) 39 - 49 % MCV 88 80 - 100 fL MCH 29.4 27 - 34 pg MCHC 33.4 32 - 36 g/dL RDW 16.2 (H) 11.5 - 15.0 % Platelets 120 (L) 150 - 450 X10E9/L MPV 8.7 7 - 12 fL % neutrophils 75.5 % % lymphocytes 9.8 % % monocytes 10.9 % % eosinophils 3.2 % % Basophils 0.6 % Neutrophils Absolute (A) 5.4 1.5 - 6.6 X10E9/L Lymphocytes Absolute 0.7 (L) 1.0 - 3.5 X10E9/L Monocytes Absolute 0.8 0 - 0.9 X10E9/L Eosinophils Absolute 0.2 0.0 - 0.4 X10E9/L Basophils Absolute 0.0 0.0 - 0.2 X10E9/L Phosphorus Collection Time: 10/25/24 5:25 AM Result Value Ref Range Phosphorus 9.1 (H) 2.4 - 4.9 mg/dL POCT Ionized Calcium Collection Time: 10/25/24 7:50 AM Result Value Ref Range Portable ICA 4.1 (L) 4.5 - 5.3 mg/dL Radiology X-ray femur left 2+ views Result Date: 10/22/2024 Narrative: XR FEMUR LT 2+ VIEWS Clinical history:trauma and deformity acute leg pain. Comparison: None. Impression: Comminuted impacted mildly angulated and displaced distal femoral fracture. Diffuse osteopenia and demineralization. No definitive proximal injury. The proximal femur and hip are not fully visualized on the provided imaging. Finalized by Morgan Steele MD on 10/22/2024 3:03 PM X-ray knee left 3 views Result Date: 10/22/2024 Narrative: History: Pain/hematuria. Chronic renal disease.. Quadriplegia Study: Left Knee Three view study. Comparison: None Impression: Comminuted distal femoral fracture is appreciated. Severe osteoporosis is noted. More chronic appearing deformity in the proximal tibia. Follow-up with orthopedics is advised.. 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 Procedure: 1. Ultrasound-guided access into a vein as below. 2. Fluoroscopically guided tunneled hemodialysis catheter placement. Radiologist: Dr. Izquierdo Anesthesia: Continuous monitoring was provided by independent qualified radiology nursing personnel under physician supervision. Medications: 100 mcg of fentanyl Contrast: None Fluoroscopy time: 0.4 minutes Reference air Kerma: 3 mGy Complications None. Conscious sedation time: None Technique: Risks, benefits, and alternatives were discussed. All questions were answered and informed consent was obtained. Automated radiation exposure lowering techniques were utilized. Hand hygiene performed. The neck and chest were prepped and draped in the appropriate sterile fashion. A initial ultrasound of the neck demonstrated a patent, compressible vein free of clot suitable for access. A permanent ultrasound image was obtained. Under ultrasound guidance, a micropuncture needle was advanced into the vein. Nonpulsatile blood was noted. An 018 wire was advanced appropriately to confirm venous placement and the needle exchanged for the micropuncture dilator set. Attention was then turned to creation of the tunnel. The skin exit site was chosen. Local anesthesia was instilled and a skin wero made. Local anesthesia was administered into the tunnel. The catheter was tunneled to the neck access site. The micropuncture set was upsized over an 035 Amplatz to a peel-away sheath. The tip of the catheter was then passed through the peel-away sheath after wire removal. A final AP image of the chest demonstrated tip of the catheter to reside at the cava atrial junction. The catheter genevieve and flushed easily. A cap was placed. 2-0 silk suture was used to secure the catheter at the skin exit site. Skin glue was used at the neck access site. Sterile dressings were placed at the skin exit site. Patient left the angiography suite in stable condition. Impression: Status post placement of a right internal jugular vein single lumen 5 Austrian by 19 cm tip to cuff tunneled central venous catheter. The catheter is okay to use. Finalized by Juana Izquierdo MD on 10/13/2024 5:39 PM MR ankle right without contrast Result Date: 10/08/2024 Narrative: MR RIGHT ANKLE CLINICAL INFORMATION: Pain. COMPARISON: None. PROCEDURE: Routine MRI of the ankle performed. Multisequence, multiplanar imaging was obtained. FINDINGS: OSSEOUS STRUCTURES AND JOINTS Bones: No acute bone marrow signal abnormality in the ankle region. Tibiotalar joint: Small joint effusion. Chondral thinning. No osteochondral injury. Subtalar joint: No focal abnormality. Tarsal joints: Within normal limits. SOFT TISSUES Muscles: No gross muscular abnormality. Tarsal tunnel: Normal. Sinus tarsi: Normal. Plantar fascia: No gross abnormality. Intact aponeurotic attachment. There is abnormal signal within the subcutaneous and cutaneous signals of the plantar aspect of the heel and along the lateral aspect of the ankle region. Subcutaneous heterogeneity is present compatible with edema. TENDONS Achilles tendon: Normal distally. Posterior tibial tendon: Normal. Flexor digitorum longus tendon: Normal. Flexor hallucis longus: Normal. Peroneus longus tendon: Normal. Peroneus brevis tendon: Normal. Peroneal retinaculum: Normal. Anterior tibial tendon: Normal. Extensor hallucis longus: Normal. Extensor digitorum longus: Normal. LIGAMENTS Anterior inferior tibiofibular (syndesmotic) ligament: Normal. Posterior inferior tibiofibular (syndesmotic) ligament: Normal. Anterior talofibular ligament: Normal. Posterior talofibular ligament: Normal. Calcaneofibular ligament: Normal. Deltoid ligament complex (superficial): Normal. Deltoid ligament complex (deep): Normal. Spring ligament: Within normal limits. IMPRESSION: 1. Cutaneous and subcutaneous irregularity along the dorsal aspect of the ankle and in the plantar aspect of the heel compatible with edema/cellulitis. No abscess or focal abnormality evident. 2. No osseous abnormality within the ankle region. 3. No gross ligamentous or musculotendinous injury. Finalized by Jeremías Vegas MD on 10/08/2024 1:31 PM Vas art doppler lwr bilat mult lev/PVR Result Date: 10/07/2024 Narrative: Right: Essentially normal PVR waveform contour at all levels. No calf waveform augmentation noted. PT SHANTA is 0.92; DP SHANTA is 1.00. Multiphasic with diastolic flow reversal PT and DP, CW Doppler waveforms. Left: Essentially normal PVR waveform contour at all levels. No calf waveform augmentation noted. PT SHANTA is 0.96; DP SHANTA is 0.92. Multiphasic with diastolic flow reversal PT and DP, CW Doppler waveforms. General: Brachial pressures could not be performed due to patient positioning difficulties. Conclusions: BILATERAL:Normal lower extremity SHANTA at rest. Unable to obtain left brachial pressure due to patient positioning. Recommendations: Any questions prior to finalization, please call the reading physician during normal business hours at the phone number beside their name. Vas art duplex lwr bilateral Result Date: 10/06/2024 Narrative: Right: Plaque and spectral waveforms with diastolic flow reversal noted in the external iliac, common femoral, deep femoral, superficial femoral, popliteal, peroneal, posterior and anterior tibial artery without significant color flow disturbance. Left: Plaque with multiphasic waveforms and diastolic flow reversal in the common femoral, deep femoral, proximal thru mid superficial femoral and anterior tibial artery. Low resistive and hyperemic distal SFA waveforms. Monophasic popliteal, posterior tibial and peroneal artery waveforms. General: In-patient, bedside examination. Conclusions: BILATERAL: Arterial plaque with no hemodynamically significant stenosis of the lower extremity. Recommendations: Any questions prior to finalization, please call the reading physician during normal business hours at the phone number beside their name. EEG Video Monitoring Daily Result Date: 10/05/2024 Narrative: Images from the original result were not included. [facility] EEG Report EEG Service Date: 10/05/2024 06:00 until 10/04/2026 11:07. Day 3 of recording Date of Report: 10/05/2024 History: 63 year old man with concern for seizures Medications: Fentanyl Technique: This EEG was acquired with electrodes placed according to the 10-20 electrode placement system. A single EKG channel was recorded for cardiac rhythm monitoring. Video was recorded simultaneously. The quality of recording was good. The entire EEG study along with video for selected events was reviewed. EEG Classification: Abnormal I State of Consciousness: Awake and asleep EEG Findings: 1.) Dominant Rhythm: A PDR of up to 6 Hz was seen 2.) Background: The background was slow, with a PDR of up to 6 Hz. Reactivity to external stimuli was appreciated. Slow wave stage N3 sleep was seen often. EKG artifact was seen at times. 3.) There is continuous slow, generalized, underlying delta > theta waves, seen throughout the recording. 4.) HR 60-62 BPM, regular Impression: This vEEG is indicative of mild to moderate diffuse encephalopathy. No epileptiform discharges or lateralizing signs were seen. In comparison with yesterday's recording, there is no significant change. Court De Los Santos MD [employer] [facility] EEG Video Monitoring Daily Result Date: 10/05/2024 Narrative: Images from the original result were not included. [employer] EEG Report EEG Service Date: 10/04/2024 06:00 until 10/04/2026 23:02. Day 2 of recording Date of Report: 10/05/2024 History: 63 year old man with concern for seizures Medications: Fentanyl Technique: This EEG was acquired with electrodes placed according to the 10-20 electrode placement system. A single EKG channel was recorded for cardiac rhythm monitoring. Video was recorded simultaneously. The quality of recording was good. The entire EEG study along with video for selected events was reviewed. EEG Classification: Abnormal I State of Consciousness: Awake and asleep EEG Findings: 1.) Dominant Rhythm: A PDR of up to 6 Hz was seen 2.) Background: The background was slow, with a PDR of up to 6 Hz. Reactivity to external stimuli was appreciated. Slow wave stage N3 sleep was seen often. EKG artifact was seen throughout the recording. 3.) There is continuous slow, generalized, underlying delta > theta waves, seen throughout the recording. 4.) HR 60-64 BPM, regular Impression: This vEEG is indicative of mild to moderate diffuse encephalopathy. No epileptiform discharges or lateralizing signs were seen. In comparison with yesterday's recording, there is a slight improvement due to a decrease in the degree of encephalopathy. Court De Los Santos MD [employer] [facility] EEG Video Monitoring Daily Result Date: 10/05/2024 Narrative: Images from the original result were not included. [employer] EEG Report EEG Service Date: 10/04/2024 00:12 until 10/04/2026 06:00. Day 1 of recording Date of Report: 10/04/2024 History: 63 year old man with concern for seizures Medications: Fentanyl Technique: This EEG was acquired with electrodes placed according to the 10-20 electrode placement system. A single EKG channel was recorded for cardiac rhythm monitoring. Video was recorded simultaneously. The quality of recording was good. The entire EEG study along with video for selected events was reviewed. EEG Classification: Abnormal II State of Consciousness: Stupor EEG Findings: 1.) Dominant Rhythm: No clear PDR was seen 2.) Background: The background was slow, without a PDR. Reactivity to external stimuli was appreciated. No progressive sleep stages were seen. Of note, EMG artifact was seen often during the recording. 3.) There is continuous slow, generalized, underlying delta > theta waves, seen throughout the recording. 4.) HR 60-64 BPM, regular Impression: This vEEG is indicative of moderate diffuse encephalopathy. No epileptiform discharges or lateralizing signs were seen. EMG artifact was seen throughout the recording. 10 uV Sensitivity, EMG artifact Court De Los Santos MD [employer] [facility] Baseline Routine EEG Result Date: 10/04/2024 Narrative: Images from the original result were not included. [facility] EEG Report Length of Study: 30 minutes EEG Service Date: 10/03/2024 History: 63 year old man with concern for seizures Medications: Fentanyl Technique: This EEG was acquired with electrodes placed according to the 10-20 electrode placement system. A single EKG channel was recorded for cardiac rhythm monitoring. The quality of recording was good. EEG Classification: Abnormal II State of Consciousness: Stupor EEG Findings: 1.) Dominant Rhythm: No clear PDR was seen 2.) Background: The background was slow, without a PDR. Reactivity to external stimuli was appreciated. No progressive sleep stages were seen. 3.) Activating procedures: Hyperventilation was not performed. Photic stimulation was performed, but did not produce significant changes. 4.) There is continuous slow, generalized, underlying delta > theta waves, seen throughout the recording. 5.) HR 64-68 BPM, regular Impression: This EEG is indicative of moderate diffuse encephalopathy. No epileptiform discharges or lateralizing signs were seen. Court De Los Santos MD [employer] [facility] Neu[facility] CT brain without contrast Result Date: 10/03/2024 Narrative: History: Transient alteration of awareness Technique: Contiguous axial images through the brain were obtained without the administration of intravenous contrast material. Automated exposure control was utilized. Comparison: 09/28/2024 Findings: The ventricles are normal in size. There is no evidence of midline shift. There are no areas of abnormal density to suggest presence of acute major vessel infarct, mass lesion, or hemorrhage. The visualized osseous structures are intact. Impression: Normal CT brain. All CT scans at this facility use dose modulation, iterative reconstruction, and/or weight based dosing when appropriate to reduce radiation dose to as low as reasonably achievable. Finalized by Magy Gutierres MD on 10/03/2024 11:03 PM X-ray chest 1 view Result Date: 10/03/2024 Narrative: EXAM: Chest, one view REASON FOR EXAM: dyspnea TECHNIQUE: Single AP view of the chest COMPARISON: 09/29/2024, 09/28/2024 FINDINGS: Right neck central line terminates projecting over the expected location of the SVC. The trachea is midline. Cardiomediastinal silhouette is prominent, enhanced by AP technique. There are questioned left retrocardiac air bronchograms. Possible small left pleural effusion. IMPRESSION: Possible left retrocardiac pulmonary infiltrate. Likely small left pleural effusion. Finalized by Sabina Garcia MD on 10/03/2024 9:58 PM MR ankle left without contrast Result Date: 10/03/2024 Narrative: History: Osteomyelitis suspected, ankle, xray done Wound left heel Comparison left calcaneus x-rays from October 01 PROCEDURE: Multiplanar multisequence images performed the left ankle MR ANKLE LT WO CONT Multiplanar multisequence MR imaging performed through the ankle. Findings: Extensive edema within the calcaneus consistent with osteomyelitis at its posterior aspect. Mild reactive retrocalcaneobursitis and periostitis along the plantar aspect of the calcaneus Moderate reactive effusion tibiotalar and subtalar joint Extensive soft tissue swelling of the subcutaneous tissues along the lateral dorsum of the foot which could be edema and/or cellulitis. No well-defined abscess Mild arthritic findings of the intertarsal articulations Plantar fascia unremarkable. The Achilles tendon, the peroneal tendons, and the tendons of the tarsal tunnel are unremarkable. The deltoid ligaments, talofibular ligaments, and calcaneofibular ligaments are unremarkable. The sinus tarsi is unremarkable. Angle of Gissane is unremarkable. The talar dome, tibiotalar joint, and subtalar joint are otherwise unremarkable Lisfranc ligament intact IMPRESSION: Extensive edema within the calcaneus consistent with osteomyelitis at its posterior aspect. Mild reactive retrocalcaneal bursitis and periostitis along the plantar aspect of the calcaneus Moderate reactive effusion tibiotalar and subtalar joint Extensive soft tissue swelling of the subcutaneous tissues along the lateral dorsum of the foot which could be edema and/or cellulitis. No well-defined abscess Mild arthritic findings of the intertarsal articulations Finalized by Rigoberto Mobley MD on 10/03/2024 8:51 PM X-ray calcaneus left minimun 2 views Result Date: 10/02/2024 Narrative: History: Evaluate for osteomyelitis. Exam/Technique: AP and Hale view of the calcaneus. Comparison: 09/07/2024. Findings: Marked osteopenia. Marked soft tissue swelling of the midfoot. No emphysematous changes. Significant remodeling of the hindfoot articulations with likely degenerative changes. No destructive changes of the calcaneus. IMPRESSION: No destructive changes of the calcaneus or the talocalcaneal articulation. Marked soft tissue edema and swelling. Finalized by Sree Weber MD on 10/02/2024 1:03 AM X-ray chest 1 view Result Date: 09/29/2024 Narrative: HISTORY: Central line placement COMPARISON: Chest x-ray 09/28/2024 FINDINGS: Portable AP upright view of the chest was performed. Right jugular venous catheter tip overlies the SVC. Cardiac silhouette is enlarged but stable. Left basilar airspace disease. No significant vascular congestion, pleural effusion or pneumothorax. Partially visualized cervical fusion hardware. IMPRESSION: * Appropriately positioned right jugular venous catheter. * Left basilar atelectasis versus pneumonia. Finalized by Quincy Newell MD on 09/29/2024 10:19 AM X-ray chest 1 view Result Date: 09/28/2024 Narrative: XR CHEST 1 VW 09/28/2024 10:45 PM INDICATION: Chest pain COMPARISON: Priors dating back to 08/23/2024 TECHNIQUE: AP portable upright view the chest was obtained. FINDINGS: Left basilar patchy opacity. There is no pneumothorax. Similar mild blunting of the right costophrenic angle.. The cardiomediastinal silhouette is unremarkable. No acute osseous abnormalities. IMPRESSION: Left basilar patchy opacity, nonspecific possibly related to pneumonia in the appropriate clinical setting. Finalized by Morgan Horvath on 09/28/2024 11:18 PM HOSPITAL PROBLEM LIST Principal Problem: Closed displaced comminuted fracture of shaft of left femur, [place] Active Problems: Pressure injury of deep tissue of right heel Pressure injury of left heel, stage 4 [place] Pressure injury of sacral region, stage 3 [place] Quadriplegia, C1-C4, complete [place] Subacute osteomyelitis of left foot [place] Stage 5 chronic kidney disease not on chronic dialysis [place] Iron deficiency anemia secondary to inadequate dietary iron intake Hyperkalemia ASSESSMENT & PLAN Closed fracture left femur: Orthopedic surgery consult. Likely not candidate for surgical intervention. Appreciate Orthopedic input. If patient would need surgical intervention, would have to transfer to higher level of care. Quadriplegia: Supportive care. Offloading of pressure points. Potassium 5.4, give Lokelma 10 g p.o. now recheck potassium in 4 hours low-potassium diet Subacute osteomyelitis: Previously seen at [facility] and was discharged with IV antibiotics in the outpatient setting. Antibiotics to be continued until November 17. Will resume/continue outpatient IV antibiotics while admitted. No coverage for infectious disease. If any issues with antibiotics, will need transferred for infectious disease input. CKD 5: Patient did see Nephrology group at [place] and patient was not candidate for dialysis. Monitor kidney function daily. Iron-deficiency anemia: Hemoglobin 7.1 on admission. Down to 6.1 today. Status post 2 units packed red blood cells on 10/23/2022. Occult stool positive. No overt signs of bleeding. Hyperkalemia: Continues today. Insulin glucose given yesterday. We will give Lokelma today. Pressure injuries: Wound team consulted. Nutrition consult. Goals of care again discussed with patient today. Patient remain full code at this time. DVT px: No pharmacological intervention secondary to anemia. hemoglobin 7.2 DC planning: Will likely need prison facility. Awaiting orthopedic consult for recommendations going forward fractured leg.. Images from the original note were not included. [facility] - [facility] [address] [facility] [id number] Hospital Medicine Progress Note Patient: Jessica Price Date of : 1960 Room: PCP: LAWANDA GROVE MD Admission date: 10/22/2024 2:01 PM Encounter date: 10/24/24 SUBJECTIVE Chief complaints: Chief Complaint Patient presents with Abnormal Lab Interval History: Status: improved. No overnight events or new complaints. Status post 2 units packed red blood cells on 10/23/2024. Hemoglobin remaining stable since transfusion. Review of Systems Review of Systems Respiratory: Negative for shortness of breath. Cardiovascular: Negative for chest pain. Gastrointestinal: Negative for abdominal pain. Musculoskeletal: Positive for arthralgias, gait problem and myalgias. OBJECTIVE BP 101/62 Pulse 95 Temp 36.8 C (98.3 F) (Oral) Resp 16 Ht 182.9 cm (6') Wt 85.3 kg (188 lb) SpO2 95% BMI 25.50 kg/m Intake/Output Summary (Last 24 hours) at 10/24/2024 1600 Last data filed at 10/24/2024 1200 Gross per 24 hour Intake 1636.58 ml Output 2900 ml Net -1263.42 ml Physical Exam Physical Exam Constitutional: General: He is not in acute distress. HENT: Mouth/Throat: Mouth: Mucous membranes are moist. Eyes: Conjunctiva/sclera: Conjunctivae normal. Cardiovascular: Rate and Rhythm: Normal rate and regular rhythm. Pulmonary: Effort: Pulmonary effort is normal. Breath sounds: Normal breath sounds. Abdominal: Palpations: Abdomen is soft. Tenderness: There is no abdominal tenderness. Comments: Colostomy in place Genitourinary: Comments: Bond catheter in place. Clear yellow urine in drainage bag Musculoskeletal: Right lower leg: No edema. Left lower leg: No edema. Skin: General: Skin is warm and dry. Coloration: Skin is pale. Comments: Dressing to coccyx and bilateral heels dry and intact Neurological: Mental Status: He is alert. Mental status is at baseline. Motor: Atrophy and abnormal muscle tone present. Comments: Quadriplegia Medications Scheduled: cyanocobalamin, 1,000 mcg, oral, Daily DAPTOmycin (CUBICIN) 625 mg in sodium chloride 0.9 % 50 mL IVPB, 625 mg, intravenous, Q48H fentaNYL, 1 patch, transdermal, Q72H [START ON 10/29/2024] fentaNYL, 1 patch, transdermal, Once every 6 days [START ON 10/26/2024] fentaNYL, 1 patch, transdermal, Once every 6 days ferrous sulfate, 325 mg, oral, Daily with breakfast fluconazole, 300 mg, oral, Daily gabapentin, 300 mg, oral, HS iron sucrose, 200 mg, intravenous, Daily meropenem, 500 mg, intravenous, Q12H sevelamer, 1,600 mg, oral, TID with meals trospium, 20 mg, oral, Nightly Infusions: dextrose 5 % in water, 100 mL/hr sodium chloride 0.9 %, 20 mL/hr sodium chloride 0.9 %, 20 mL/hr As Needed: acetaminophen dextrose dextrose 5 % in water [COMPLETED] insulin regular AND dextrose 50 % in water (D50W) AND [COMPLETED] dextrose 50 % in water (D50W) dextrose 50 % in water (D50W) glucagon (human recombinant) midodrine ondansetron sodium chloride sodium chloride sodium chloride 0.9 % sodium chloride 0.9 % Allergies: Ancef [cefazolin], Iodinated contrast media, Promethazine, and Sulfamethoxazole-trimethoprim Labs Recent Results (from the past 24 hours) Hemoglobin and hematocrit, blood Collection Time: 10/23/24 7:30 PM Result Value Ref Range Hemoglobin 6.7 (LL) 13.0 - 17.0 g/dL Hematocrit 20.2 (L) 39 - 49 % Hemoglobin and hematocrit, blood Collection Time: 10/24/24 1:10 AM Result Value Ref Range Hemoglobin 7.8 (L) 13.0 - 17.0 g/dL Hematocrit 23.9 (L) 39 - 49 % Comprehensive metabolic panel Collection Time: 10/24/24 5:00 AM Result Value Ref Range Sodium 137 134 - 146 mmol/L Potassium, Bld 5.7 (H) 3.5 - 5.0 mmol/L Chloride 106 98 - 109 mmol/L CO2 20 (L) 22 - 32 mmol/L Anion gap 11 5 - 15 mmol/L BUN 98 (H) 5 - 27 mg/dL Creatinine 4.29 (H) 0.70 - 1.20 mg/dL Glucose 105 (H) 65 - 99 mg/dL Calcium 7.3 (L) 8.5 - 10.5 mg/dL Total Protein 5.5 (L) 6.0 - 8.0 g/dL Albumin 2.2 (L) 3.2 - 5.3 g/dL Alkaline Phosphatase 61 39 - 130 U/L AST 14 0 - 41 U/L ALT 12 0 - 40 U/L Total bilirubin 0.8 0.3 - 1.2 mg/dL eGFR (CKD-EPI)non-race dependent 14 (L) >59 ml/min/1.73sq.m Magnesium Collection Time: 10/24/24 5:00 AM Result Value Ref Range Magnesium 1.6 (L) 1.8 - 2.6 mg/dL CBC auto differential Collection Time: 10/24/24 5:00 AM Result Value Ref Range White Blood Cells 8.1 4.0 - 11.0 X10E9/L RBC count 2.60 (L) 4.10 - 5.70 X10E12/L Hemoglobin 7.7 (L) 13.0 - 17.0 g/dL Hematocrit 22.9 (L) 39 - 49 % MCV 88 80 - 100 fL MCH 29.7 27 - 34 pg MCHC 33.6 32 - 36 g/dL RDW 15.9 (H) 11.5 - 15.0 % Platelets 123 (L) 150 - 450 X10E9/L MPV 8.4 7 - 12 fL % neutrophils 76.7 % % lymphocytes 8.1 % % monocytes 11.3 % % eosinophils 3.4 % % Basophils 0.5 % Neutrophils Absolute (A) 6.2 1.5 - 6.6 X10E9/L Lymphocytes Absolute 0.7 (L) 1.0 - 3.5 X10E9/L Monocytes Absolute 0.9 0 - 0.9 X10E9/L Eosinophils Absolute 0.3 0.0 - 0.4 X10E9/L Basophils Absolute 0.0 0.0 - 0.2 X10E9/L Radiology X-ray femur left 2+ views Result Date: 10/22/2024 Narrative: XR FEMUR LT 2+ VIEWS Clinical history:trauma and deformity acute leg pain. Comparison: None. Impression: Comminuted impacted mildly angulated and displaced distal femoral fracture. Diffuse osteopenia and demineralization. No definitive proximal injury. The proximal femur and hip are not fully visualized on the provided imaging. Finalized by Morgan Steele MD on 10/22/2024 3:03 PM X-ray knee left 3 views Result Date: 10/22/2024 Narrative: History: Pain/hematuria. Chronic renal disease.. Quadriplegia Study: Left Knee Three view study. Comparison: None Impression: Comminuted distal femoral fracture is appreciated. Severe osteoporosis is noted. More chronic appearing deformity in the proximal tibia. Follow-up with orthopedics is advised.. 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 Procedure: 1. Ultrasound-guided access into a vein as below. 2. Fluoroscopically guided tunneled hemodialysis catheter placement. Radiologist: Dr. Izquierdo Anesthesia: Continuous monitoring was provided by independent qualified radiology nursing personnel under physician supervision. Medications: 100 mcg of fentanyl Contrast: None Fluoroscopy time: 0.4 minutes Reference air Kerma: 3 mGy Complications None. Conscious sedation time: None Technique: Risks, benefits, and alternatives were discussed. All questions were answered and informed consent was obtained. Automated radiation exposure lowering techniques were utilized. Hand hygiene performed. The neck and chest were prepped and draped in the appropriate sterile fashion. A initial ultrasound of the neck demonstrated a patent, compressible vein free of clot suitable for access. A permanent ultrasound image was obtained. Under ultrasound guidance, a micropuncture needle was advanced into the vein. Nonpulsatile blood was noted. An 018 wire was advanced appropriately to confirm venous placement and the needle exchanged for the micropuncture dilator set. Attention was then turned to creation of the tunnel. The skin exit site was chosen. Local anesthesia was instilled and a skin wero made. Local anesthesia was administered into the tunnel. The catheter was tunneled to the neck access site. The micropuncture set was upsized over an 035 Amplatz to a peel-away sheath. The tip of the catheter was then passed through the peel-away sheath after wire removal. A final AP image of the chest demonstrated tip of the catheter to reside at the cava atrial junction. The catheter genevieve and flushed easily. A cap was placed. 2-0 silk suture was used to secure the catheter at the skin exit site. Skin glue was used at the neck access site. Sterile dressings were placed at the skin exit site. Patient left the angiography suite in stable condition. Impression: Status post placement of a right internal jugular vein single lumen 5 Austrian by 19 cm tip to cuff tunneled central venous catheter. The catheter is okay to use. Finalized by Juana Izquierdo MD on 10/13/2024 5:39 PM MR ankle right without contrast Result Date: 10/08/2024 Narrative: MR RIGHT ANKLE CLINICAL INFORMATION: Pain. COMPARISON: None. PROCEDURE: Routine MRI of the ankle performed. Multisequence, multiplanar imaging was obtained. FINDINGS: OSSEOUS STRUCTURES AND JOINTS Bones: No acute bone marrow signal abnormality in the ankle region. Tibiotalar joint: Small joint effusion. Chondral thinning. No osteochondral injury. Subtalar joint: No focal abnormality. Tarsal joints: Within normal limits. SOFT TISSUES Muscles: No gross muscular abnormality. Tarsal tunnel: Normal. Sinus tarsi: Normal. Plantar fascia: No gross abnormality. Intact aponeurotic attachment. There is abnormal signal within the subcutaneous and cutaneous signals of the plantar aspect of the heel and along the lateral aspect of the ankle region. Subcutaneous heterogeneity is present compatible with edema. TENDONS Achilles tendon: Normal distally. Posterior tibial tendon: Normal. Flexor digitorum longus tendon: Normal. Flexor hallucis longus: Normal. Peroneus longus tendon: Normal. Peroneus brevis tendon: Normal. Peroneal retinaculum: Normal. Anterior tibial tendon: Normal. Extensor hallucis longus: Normal. Extensor digitorum longus: Normal. LIGAMENTS Anterior inferior tibiofibular (syndesmotic) ligament: Normal. Posterior inferior tibiofibular (syndesmotic) ligament: Normal. Anterior talofibular ligament: Normal. Posterior talofibular ligament: Normal. Calcaneofibular ligament: Normal. Deltoid ligament complex (superficial): Normal. Deltoid ligament complex (deep): Normal. Spring ligament: Within normal limits. IMPRESSION: 1. Cutaneous and subcutaneous irregularity along the dorsal aspect of the ankle and in the plantar aspect of the heel compatible with edema/cellulitis. No abscess or focal abnormality evident. 2. No osseous abnormality within the ankle region. 3. No gross ligamentous or musculotendinous injury. Finalized by Jeremías Vegas MD on 10/08/2024 1:31 PM Vas art doppler lwr bilat mult lev/PVR Result Date: 10/07/2024 Narrative: Right: Essentially normal PVR waveform contour at all levels. No calf waveform augmentation noted. PT SHANTA is 0.92; DP SAHNTA is 1.00. Multiphasic with diastolic flow reversal PT and DP, CW Doppler waveforms. Left: Essentially normal PVR waveform contour at all levels. No calf waveform augmentation noted. PT SHANTA is 0.96; DP SHANTA is 0.92. Multiphasic with diastolic flow reversal PT and DP, CW Doppler waveforms. General: Brachial pressures could not be performed due to patient positioning difficulties. Conclusions: BILATERAL:Normal lower extremity SHANTA at rest. Unable to obtain left brachial pressure due to patient positioning. Recommendations: Any questions prior to finalization, please call the reading physician during normal business hours at the phone number beside their name. Vas art duplex lwr bilateral Result Date: 10/06/2024 Narrative: Right: Plaque and spectral waveforms with diastolic flow reversal noted in the external iliac, common femoral, deep femoral, superficial femoral, popliteal, peroneal, posterior and anterior tibial artery without significant color flow disturbance. Left: Plaque with multiphasic waveforms and diastolic flow reversal in the common femoral, deep femoral, proximal thru mid superficial femoral and anterior tibial artery. Low resistive and hyperemic distal SFA waveforms. Monophasic popliteal, posterior tibial and peroneal artery waveforms. General: In-patient, bedside examination. Conclusions: BILATERAL: Arterial plaque with no hemodynamically significant stenosis of the lower extremity. Recommendations: Any questions prior to finalization, please call the reading physician during normal business hours at the phone number beside their name. EEG Video Monitoring Daily Result Date: 10/05/2024 Narrative: Images from the original result were not included. [facility] EEG Report EEG Service Date: 10/05/2024 06:00 until 10/04/2026 11:07. Day 3 of recording Date of Report: 10/05/2024 History: 63 year old man with concern for seizures Medications: Fentanyl Technique: This EEG was acquired with electrodes placed according to the 10-20 electrode placement system. A single EKG channel was recorded for cardiac rhythm monitoring. Video was recorded simultaneously. The quality of recording was good. The entire EEG study along with video for selected events was reviewed. EEG Classification: Abnormal I State of Consciousness: Awake and asleep EEG Findings: 1.) Dominant Rhythm: A PDR of up to 6 Hz was seen 2.) Background: The background was slow, with a PDR of up to 6 Hz. Reactivity to external stimuli was appreciated. Slow wave stage N3 sleep was seen often. EKG artifact was seen at times. 3.) There is continuous slow, generalized, underlying delta > theta waves, seen throughout the recording. 4.) HR 60-62 BPM, regular Impression: This vEEG is indicative of mild to moderate diffuse encephalopathy. No epileptiform discharges or lateralizing signs were seen. In comparison with yesterday's recording, there is no significant change. Court De Los Santos MD [facility] EEG Video Monitoring Daily Result Date: 10/05/2024 Narrative: Images from the original result were not included. [facility] EEG Report EEG Service Date: 10/04/2024 06:00 until 10/04/2026 23:02. Day 2 of recording Date of Report: 10/05/2024 History: 63 year old man with concern for seizures Medications: Fentanyl Technique: This EEG was acquired with electrodes placed according to the 10-20 electrode placement system. A single EKG channel was recorded for cardiac rhythm monitoring. Video was recorded simultaneously. The quality of recording was good. The entire EEG study along with video for selected events was reviewed. EEG Classification: Abnormal I State of Consciousness: Awake and asleep EEG Findings: 1.) Dominant Rhythm: A PDR of up to 6 Hz was seen 2.) Background: The background was slow, with a PDR of up to 6 Hz. Reactivity to external stimuli was appreciated. Slow wave stage N3 sleep was seen often. EKG artifact was seen throughout the recording. 3.) There is continuous slow, generalized, underlying delta > theta waves, seen throughout the recording. 4.) HR 60-64 BPM, regular Impression: This vEEG is indicative of mild to moderate diffuse encephalopathy. No epileptiform discharges or lateralizing signs were seen. In comparison with yesterday's recording, there is a slight improvement due to a decrease in the degree of encephalopathy. Court De Los Santos MD [facility] EEG Video Monitoring Daily Result Date: 10/05/2024 Narrative: Images from the original result were not included. [facility] EEG Report EEG Service Date: 10/04/2024 00:12 until 10/04/2026 06:00. Day 1 of recording Date of Report: 10/04/2024 History: 63 year old man with concern for seizures Medications: Fentanyl Technique: This EEG was acquired with electrodes placed according to the 10-20 electrode placement system. A single EKG channel was recorded for cardiac rhythm monitoring. Video was recorded simultaneously. The quality of recording was good. The entire EEG study along with video for selected events was reviewed. EEG Classification: Abnormal II State of Consciousness: Stupor EEG Findings: 1.) Dominant Rhythm: No clear PDR was seen 2.) Background: The background was slow, without a PDR. Reactivity to external stimuli was appreciated. No progressive sleep stages were seen. Of note, EMG artifact was seen often during the recording. 3.) There is continuous slow, generalized, underlying delta > theta waves, seen throughout the recording. 4.) HR 60-64 BPM, regular Impression: This vEEG is indicative of moderate diffuse encephalopathy. No epileptiform discharges or lateralizing signs were seen. EMG artifact was seen throughout the recording. 10 uV Sensitivity, EMG artifact Court De Los Santos MD [facility] Baseline Routine EEG Result Date: 10/04/2024 Narrative: Images from the original result were not included. [facility] EEG Report Length of Study: 30 minutes EEG Service Date: 10/03/2024 History: 63 year old man with concern for seizures Medications: Fentanyl Technique: This EEG was acquired with electrodes placed according to the 10-20 electrode placement system. A single EKG channel was recorded for cardiac rhythm monitoring. The quality of recording was good. EEG Classification: Abnormal II State of Consciousness: Stupor EEG Findings: 1.) Dominant Rhythm: No clear PDR was seen 2.) Background: The background was slow, without a PDR. Reactivity to external stimuli was appreciated. No progressive sleep stages were seen. 3.) Activating procedures: Hyperventilation was not performed. Photic stimulation was performed, but did not produce significant changes. 4.) There is continuous slow, generalized, underlying delta > theta waves, seen throughout the recording. 5.) HR 64-68 BPM, regular Impression: This EEG is indicative of moderate diffuse encephalopathy. No epileptiform discharges or lateralizing signs were seen. Court De Los Santos MD [facility] CT brain without contrast Result Date: 10/03/2024 Narrative: History: Transient alteration of awareness Technique: Contiguous axial images through the brain were obtained without the administration of intravenous contrast material. Automated exposure control was utilized. Comparison: 09/28/2024 Findings: The ventricles are normal in size. There is no evidence of midline shift. There are no areas of abnormal density to suggest presence of acute major vessel infarct, mass lesion, or hemorrhage. The visualized osseous structures are intact. Impression: Normal CT brain. All CT scans at this facility use dose modulation, iterative reconstruction, and/or weight based dosing when appropriate to reduce radiation dose to as low as reasonably achievable. Finalized by Magy Gutierres MD on 10/03/2024 11:03 PM X-ray chest 1 view Result Date: 10/03/2024 Narrative: EXAM: Chest, one view REASON FOR EXAM: dyspnea TECHNIQUE: Single AP view of the chest COMPARISON: 09/29/2024, 09/28/2024 FINDINGS: Right neck central line terminates projecting over the expected location of the SVC. The trachea is midline. Cardiomediastinal silhouette is prominent, enhanced by AP technique. There are questioned left retrocardiac air bronchograms. Possible small left pleural effusion. IMPRESSION: Possible left retrocardiac pulmonary infiltrate. Likely small left pleural effusion. Finalized by Sabina Garcia MD on 10/03/2024 9:58 PM MR ankle left without contrast Result Date: 10/03/2024 Narrative: History: Osteomyelitis suspected, ankle, xray done Wound left heel Comparison left calcaneus x-rays from October 01 PROCEDURE: Multiplanar multisequence images performed the left ankle MR ANKLE LT WO CONT Multiplanar multisequence MR imaging performed through the ankle. Findings: Extensive edema within the calcaneus consistent with osteomyelitis at its posterior aspect. Mild reactive retrocalcaneobursitis and periostitis along the plantar aspect of the calcaneus Moderate reactive effusion tibiotalar and subtalar joint Extensive soft tissue swelling of the subcutaneous tissues along the lateral dorsum of the foot which could be edema and/or cellulitis. No well-defined abscess Mild arthritic findings of the intertarsal articulations Plantar fascia unremarkable. The Achilles tendon, the peroneal tendons, and the tendons of the tarsal tunnel are unremarkable. The deltoid ligaments, talofibular ligaments, and calcaneofibular ligaments are unremarkable. The sinus tarsi is unremarkable. Angle of Gissane is unremarkable. The talar dome, tibiotalar joint, and subtalar joint are otherwise unremarkable Lisfranc ligament intact IMPRESSION: Extensive edema within the calcaneus consistent with osteomyelitis at its posterior aspect. Mild reactive retrocalcaneal bursitis and periostitis along the plantar aspect of the calcaneus Moderate reactive effusion tibiotalar and subtalar joint Extensive soft tissue swelling of the subcutaneous tissues along the lateral dorsum of the foot which could be edema and/or cellulitis. No well-defined abscess Mild arthritic findings of the intertarsal articulations Finalized by Rigoberto Mobley MD on 10/03/2024 8:51 PM X-ray calcaneus left minimun 2 views Result Date: 10/02/2024 Narrative: History: Evaluate for osteomyelitis. Exam/Technique: AP and Hale view of the calcaneus. Comparison: 09/07/2024. Findings: Marked osteopenia. Marked soft tissue swelling of the midfoot. No emphysematous changes. Significant remodeling of the hindfoot articulations with likely degenerative changes. No destructive changes of the calcaneus. IMPRESSION: No destructive changes of the calcaneus or the talocalcaneal articulation. Marked soft tissue edema and swelling. Finalized by Sree Weber MD on 10/02/2024 1:03 AM X-ray chest 1 view Result Date: 09/29/2024 Narrative: HISTORY: Central line placement COMPARISON: Chest x-ray 09/28/2024 FINDINGS: Portable AP upright view of the chest was performed. Right jugular venous catheter tip overlies the SVC. Cardiac silhouette is enlarged but stable. Left basilar airspace disease. No significant vascular congestion, pleural effusion or pneumothorax. Partially visualized cervical fusion hardware. IMPRESSION: * Appropriately positioned right jugular venous catheter. * Left basilar atelectasis versus pneumonia. Finalized by Quincy Newell MD on 09/29/2024 10:19 AM X-ray chest 1 view Result Date: 09/28/2024 Narrative: XR CHEST 1 VW 09/28/2024 10:45 PM INDICATION: Chest pain COMPARISON: Priors dating back to 08/23/2024 TECHNIQUE: AP portable upright view the chest was obtained. FINDINGS: Left basilar patchy opacity. There is no pneumothorax. Similar mild blunting of the right costophrenic angle.. The cardiomediastinal silhouette is unremarkable. No acute osseous abnormalities. IMPRESSION: Left basilar patchy opacity, nonspecific possibly related to pneumonia in the appropriate clinical setting. Finalized by Morgan Horvath on 09/28/2024 11:18 PM HOSPITAL PROBLEM LIST Principal Problem: Closed displaced comminuted fracture of shaft of left femur, initial encounter ([facility]) Active Problems: Pressure injury of deep tissue of right heel Pressure injury of left heel, stage 4 ([facility]) Pressure injury of sacral region, stage 3 ([facility]) Quadriplegia, C1-C4, complete ([facility]) Subacute osteomyelitis of left foot [place] Stage 5 chronic kidney disease not on chronic dialysis [place] Iron deficiency anemia secondary to inadequate dietary iron intake Hyperkalemia ASSESSMENT & PLAN Closed fracture left femur: Orthopedic surgery consult. Likely not candidate for surgical intervention. Appreciate Orthopedic input. If patient would need surgical intervention, would have to transfer to higher level of care. Quadriplegia: Supportive care. Offloading of pressure points. Subacute osteomyelitis: Previously seen at [facility] and was discharged with IV antibiotics in the outpatient setting. Antibiotics to be continued until November 17. Will resume/continue outpatient IV antibiotics while admitted. No coverage for infectious disease. If any issues with antibiotics, will need transferred for infectious disease input. CKD 5: Patient did see Nephrology group at [place] and patient was not candidate for dialysis. Monitor kidney function daily. Iron-deficiency anemia: Hemoglobin 7.1 on admission. Down to 6.1 today. Status post 2 units packed red blood cells on 10/23/2022. Occult stool positive. No overt signs of bleeding. Hyperkalemia: Continues today. Insulin glucose given yesterday. We will give Lokelma today. Pressure injuries: Wound team consulted. Nutrition consult. Goals of care again discussed with patient today. Patient remain full code at this time. DVT px: No pharmacological intervention secondary to anemia. DC planning: Will likely need prison facility. Awaiting orthopedic consult for recommendations going forward fractured leg.. JUDITH Serrato, 10/24/2024 4:00 PM [facility] Internal Medicine 7AM-7PM (all facilities): EpicChat or page through [employer]. 7PM-7AM ([facility], [facility]): EpicChat or page, [phone]. 7PM-7AM ([place], [place], [place], [place] and [facility] Rehab): EpicChat or page through Vocera. This note is dictated with the use of M*Modal. Please note that this dictation was completed with computer voice recognition software. Quite often unanticipated grammatical, syntax, homophones, and other interpretive errors are inadvertently transcribed by the computer software. Please disregard these errors. Please excuse any errors that have escaped final proofreading. JUDITH Serrato Physician Attestation: I have reviewed the above note authored by the Advance Practice Provider (KADEEM) including history, review of systems, physical examination, medical decision making and agree with the assessment & plan. I have personally performed a face to face diagnostic evaluation on this patient. I have reviewed all laboratory findings and imaging reports/films. I have independently evaluated the patient and repeated beard portions of the physical exam. I agree with the KADEEM plan as above, unless otherwise noted. HOMER DUBOSE MD NUTRITION ADULT INITIAL EVALUATION NUTRITION ASSESSMENT Reason To Be Seen: Per dx fx of left femur, pressure injuries, left heel, right heel,sacral region, quadriplegia Hospital Occurrences: Admit Diagnosis: Patient Active Problem List Diagnosis UTI (urinary tract infection) Pressure injury of deep tissue of right heel Pressure injury of left heel, stage 4 ([facility]) Pressure injury of right upper back, stage 4 ([facility]) Pressure injury of sacral region, stage 3 ([facility]) Open wound of scrotum Skin ulcer of back with fat layer exposed ([facility]) Skin ulcer of perianal region with fat layer exposed ([facility]) Skin ulcer of right calf, limited to breakdown of skin ([facility]) Melena Quadriplegia, C1-C4, complete ([facility]) Neurogenic bladder Neurogenic bowel Sepsis due to Escherichia coli with acute renal failure and septic shock ([facility]) Acute hypoxemic respiratory failure ([facility]) Serum phosphate elevated Thrombocytopenia ([facility]) CKD (chronic kidney disease) stage 4, GFR 15-29 ml/min ([facility]) Severe sepsis ([facility]) Hypothermia Volume overload Pressure injury of deep tissue of right calf Seizure ([facility]) Subacute osteomyelitis of left foot ([facility]) Open wound of heel, left, initial encounter Closed displaced comminuted fracture of shaft of left femur, initial encounter ([facility]) Stage 5 chronic kidney disease not on chronic dialysis ([facility]) Iron deficiency anemia secondary to inadequate dietary iron intake Hyperkalemia Past Medical History: Past Medical History: Diagnosis Date Chronic renal failure, stage 4 (severe) ([facility]) Quadriplegia ([facility]) Past Surgical History: Past Surgical History: Procedure Laterality Date BOWEL RESECTION COLON SURGERY COLOSTOMY DEBRIDEMENT LEFT HEEL Left 10/07/2024 Performed by David Dumont MD at [facility] ESOPHAGOGASTRODUODENOSCOPY DIAGNOSTIC N/A 09/02/2024 Performed by Maryann Villegas MD at [facility] ESOPHAGOGASTRODUODENOSCOPY DIAGNOSTIC N/A 08/30/2024 Performed by Maryann Villegas MD at [facility] SPINAL FUSION c5 and c6 VENA CAVA FILTER PLACEMENT 1998 Diet History: good appetite reported Allergies: Allergies Allergen Reactions Ancef [Cefazolin] Anaphylaxis 11/25/2012 per chart review Iodinated Contrast Media Anaphylaxis 11/25/2012 per chart review Promethazine Anaphylaxis 11/25/2012 per chart review Sulfamethoxazole-Trimethoprim Rash Nutrition Focused Physical Findings-- No evidence of muscle wasting/malnutrition. Noted numerous pressure injuries per Avatar As per nutrition flow sheet- Skin: Skin Color: Ecchymosis, Colman, Blanchable (10/23/24 1630) Skin Temp: Warm, Dry (10/23/24 1630) Wound: Gastrointestinal: Abdomen Assessment: Soft, Other (Comment) (colostomy) (10/23/24 1630) Last BM Date: 10/23/24 (10/23/24 163) Passing Flatus: Yes (10/23/241629) Edema: Labs: Results from last 3 days Lab Units 10/23/24 1408 10/23/24 0546 10/22/24 1420 SODIUM mmol/L -- 137 136 POTASSIUM mmol/L 4.9 5.3* 5.3* CHLORIDE mmol/L -- 106 105 CO2 mmol/L -- 17* 18* BUN mg/dL -- 98* 100* CREATININE mg/dL -- 4.32* 4.31* CALCIUM mg/dL -- 7.8* 7.8* ALBUMIN g/dL -- 2.2* 2.3* ALK PHOS U/L -- 61 69 ALT U/L -- 11 14 AST U/L -- 16 20 Results from last 7 days Lab Units 10/23/24 1240 10/23/24 0546 10/22/24 1420 BEDSIDE GLUCOSE mg/dL 132* -- -- GLUCOSE mg/dL -- 120* 146* Results from last 3 days Lab Units 10/23/24 0546 MAGNESIUM mg/dL 1.7* No data from last 3 days. Results from last 3 days Lab Units 10/23/24 0546 10/22/24 1420 WBC X10E9/L 7.1 7.8 HEMOGLOBIN g/dL 6.1* 7.1* HEMATOCRIT % 19.0* 21.9* PLATELETS X10E9/L 133* 141* MCV fL 89 90 Lab Results Component Value Date [id number] 701 09/29/2024 Lab Results Component Value Date FOLATE 17.6 09/29/2024 Lab Results Component Value Date IRON 29 (L) 10/01/2024 TIBC 118 (L) 10/01/2024 FERRITIN 833 (H) 09/02/2024 Lab Results Component Value Date IRONSAT 25 10/01/2024 No results found for: HGBA1C No results found for: CHOL No results found for: HDL , LDL No results found for: LIPIDPROF No results found for: VIDHYDROX Medications/ Parenteral: Medications Prior to Admission Medication Sig Dispense Refill Last Dose/Taking B complex-vitamin C-folic acid (DIALYVITE) 100-1 mg tablet Take 1 tablet by mouth in the morning. 30 tablet 2 bumetanide (BUMEX) 2 mg tablet Take 1 tablet (2 mg total) by mouth daily as needed (For increasing leg swelling). 30 tablet 6 cyanocobalamin 1000 MCG tablet Take 1 tablet (1,000 mcg total) by mouth in the morning. 30 tablet 2 DAPTOmycin 625 mg in sodium chloride 0.9 % 50 mL IVPB Infuse 625 mg into a venous catheter every other day for 34 days. 1850 mL 0 fentaNYL (DURAGESIC) 100 mcg/hr Place 1 patch on the skin every third day. Alternating every other placement with 50 mcg patch NOT 150 mcg total fentaNYL (DURAGESIC) 50 mcg/hr Place 1 patch on the skin every third day. Alternating every other placement with 100 mcg patch NOT 150 mcg total ferrous sulfate 325 (65 FE) mg tablet Take 1 tablet (325 mg total) by mouth daily with breakfast. 30 tablet 0 fluconazole (DIFLUCAN) 150 mg tablet Take 2 tablets (300 mg total) by mouth in the morning for 34 days. 68 tablet 0 gabapentin (NEURONTIN) 300 mg capsule Take 1 capsule (300 mg total) by mouth once daily at bedtime. heparin lock flush, porcine, 10 unit/mL injection Infuse 1-5 mL (10-50 Units total) into a venous catheter as needed (line care per nursing agency protocol.). 1 mL 0 heparin lock flush, porcine, injection 100 unit/mL solution Infuse 1-5 mL (100-500 Units total) into a venous catheter as needed (line care per nursing agency protocol.). 1 mL 0 meropenem 500 mg in sodium chloride 0.9 % 50 mL IVPB MINI-BAG Plus Infuse 500 mg into a venous catheter daily for 34 days. 1 each 0 midodrine (PROAMATINE) 5 mg tablet Take 1 tablet (5 mg total) by mouth 3 (three) times a day as needed (systolic blood pressure <90) for up to 90 days. 30 tablet 2 sevelamer (RENVELA) 800 mg tablet Take 2 tablets (1,600 mg total) by mouth in the morning and 2 tablets (1,600 mg total) at noon and 2 tablets (1,600 mg total) in the evening. Take with meals. 180 tablet 6 sodium chloride injection Infuse 10-20 mL into a venous catheter as needed for line care (line care per nursing agency protocol.). 1 mL 0 tolterodine (DETROL) 1 mg tablet Take 2 tablets (2 mg total) by mouth in the morning and 2 tablets (2 mg total) before bedtime. Current Facility-Administered Medications Medication Dose Route Frequency Provider Last Rate Last Admin acetaminophen (TYLENOL) tablet 650 mg 650 mg oral Q6H PRN Alan D Krotzer, [employer] WORKER[employer]NESS AND [employer]LLNESS INSTRUCTOR 650 mg at 10/23/24 1305 cyanocobalamin tablet 1,000 mcg 1,000 mcg oral Daily Alan D Krotzer, [employer] WORK[employer]NESS AND WELLNESS INSTRUCTOR 1,000 mcg at 10/23/24 1011 [START ON 10/24/2024] DAPTOmycin (CUBICIN) 625 mg in sodium chloride 0.9 % 50 mL IVPB 625 mg intravenous Q48H Alan D Krotzer, [employer] WORK[employer]NESS AND WELLNESS INSTRUCTOR dextrose (GLUTOSE) 40 % gel 15 g 15 g oral PRN Alan D Krotzer, [employer] WORKER[employer]NESS AND WELLNESS INSTRUCTOR dextrose 5 % (D5W) infusion 100 mL/hr intravenous Continuous PRN Alan D Krotzer, [employer] WORKER[employer]NESS AND WELLNESS INSTRUCTOR dextrose 50 % in water (D50W) 50% solution 25 g 25 g intravenous Once PRN Alan D Krotzer, [employer] WORK[employer]NESS AND WELLNESS INSTRUCTOR dextrose 50 % in water (D50W) 50% solution 25 mL 25 mL intravenous PRN Alan D Krotzer, [employer] WORKER[employer]NESS AND WELLNESS INSTRUCTOR fentaNYL (DURAGESIC) 100 mcg/hr 1 patch 1 patch transdermal Q72H Alan D Krotzer, [employer] WORK[employer]NESS AND WELLNESS INSTRUCTOR 1 patch at 10/23/24 1307 [START ON 10/26/2024] fentaNYL (DURAGESIC) 50 mcg/hr 1 patch 1 patch transdermal Q72H Alan D Krotzer, GR[employer] WORKER[employer]NESS AND WELLNESS INSTRUCTOR ferrous sulfate tablet 325 mg 325 mg oral Daily with breakfast Alan D Krotzer, GR[employer] WORK[employer]NESS AND WELLNESS INSTRUCTOR 325 mg at 10/23/24 1012 fluconazole (DIFLUCAN) tablet 300 mg 300 mg oral Daily Alan D Krotzer, [employer] WORKER[employer]NESS AND WELLNESS INSTRUCTOR 300 mg at 10/23/24 1012 gabapentin (NEURONTIN) capsule 300 mg 300 mg oral HS Alan Powell, [employer] WORK[employer]NESS AND WELLNESS INSTRUCTOR 300 mg at 10/23/24 0009 glucagon HCL injection 1 mg 1 mg intramuscular PRN Alan Powell, [employer] WORK[employer]NESS AND WELLNESS INSTRUCTOR meropenem (MERREM) 500 mg in sodium chloride 0.9 % 50 mL IVPB 500 mg intravenous Q12H Alan Powell, GR[employer] WORK[employer]NESS AND WELLNESS INSTRUCTOR 20 mL/hr at 10/23/24 1816 500 mg at 10/23/24 1816 midodrine (PROAMATINE) tablet 5 mg 5 mg oral TID PRN Alan Powell, [employer] WORK[employer]NESS AND WELLNESS INSTRUCTOR ondansetron (PF) (ZOFRAN) injection 4 mg 4 mg intravenous Q6H PRN Alan Powell, GR[employer]ITE WORKER[employer]FITNESS AND WELLNESS INSTRUCTOR sevelamer (RENVELA) tablet 1,600 mg 1,600 mg oral TID with meals Alan Powell, GR[employer] WORK[employer]NESS AND WELLNESS INSTRUCTOR 1,600 mg at 10/23/24 1820 sodium chloride 0.9 % flush 3 mL 3 mL intravenous PRN Lamont Delcid, sodium chloride 0.9 % flush bag 25 mL intravenous PRN Alan Powell, [employer] WORK[employer]NESS AND WELLNESS INSTRUCTOR sodium chloride 0.9 % infusion 20 mL/hr intravenous Continuous PRN Alan Hernándezzer, [employer] WORK[employer]NESS AND WELLNESS INSTRUCTOR sodium chloride 0.9 % infusion 20 mL/hr intravenous Continuous PRN Rama Mcfarland [employer] WORK[employer]NESS [employer] WELLNESS INSTRUCTOR trospium (SANCTURA) tablet 20 mg 20 mg oral Nightly Alan Powell, [employer] WORK[employer]NESS AND WELLNESS INSTRUCTOR 20 mg at 10/23/24 0009 Nutrition Findings/Summary: noted stable weights, + colostomy, Anthropometrics: Ht Readings from Last 1 Encounters: 10/22/24 182.9 cm (6') Wt Readings from Last 10 Encounters: 10/23/24 85.3 kg (188 lb) 10/21/24 81.2 kg (179 lb) 10/06/24 81.2 kg (179 lb 0.2 oz) 09/08/24 83.5 kg (184 lb 1.4 oz) [place] Body Weight: 61.8 kg Percent [place] Body Weight: 138 % Body Mass Index: Body mass index is 25.5 kg/m . BMI Category: Pre-obese (25.00- 29.99) Diet/ Nutrition Order Review: Dietary Orders (From admission, onward) Start Ordered 10/22/242007 Adult diet Regular Texture; No Added Salt (3-4 gm Sodium); Low Phosphorus (800-1000 mg), Low Potassium (50-70 mEq); Low Fat/Low Cholesterol Diet effective now Question Answer Comment Diet Type: Regular Texture Sodium Modifiers: No Added Salt (3-4 gm Sodium) Renal Modifiers: Low Phosphorus (800-1000 mg) Renal Modifiers: Low Potassium (50-70 mEq) Fat Modifiers: Low Fat/Low Cholesterol 10/22/242006 Diet Intakes: Percent Meals Eaten (%): 100 (10/23/24 1720) 100 % [x] 75-100% [] 50-75% [] 25-50% [] <25% [] NPO [] Unable to assess Intake/ Output Last 24 hrs: Intake/Output Summary (Last 24 hours) at 10/23/2024 1932 Last data filed at 10/23/2024 1822 Gross per 24 hour Intake 1101.25 ml Output 3200 ml Net -2098.75 ml Comparative Standards: Estimated Energy Needs: 1767-8052 kcals daily. Method and weight used: 30-35 kcal/kg IBW 61.8 kg - 12.5% Estimated Protein Needs: 81-108 grams daily. Method and weight used: 1.5-2g protein/kg IBW - 12.5% Estimated Fluid Needs: 2308-4351 ml daily. Method weight used: 25-30 ml/kg IBW Comments: wound needs with -12.5% for quadriplegia Malnutrition Status: Malnutrition Present: not suspected. NUTRITION DIAGNOSIS: Intake Diagnosis: Increased nutrient needs (kcals, pro) (NI 5.1) related to wound status as evidenced by pressure ulcers requiring increased kcals and protein for healing. NUTRITION INTERVENTIONS: Meals & snacks: encourage po intakes Supplements (medical food, vitamin or mineral): will send wound care supplement GOALS: Patient to meet calorie and protein needs RECOMMENDATIONS: Started Javier BID to provide for each packet/drink HMB, 90 calories, 7g L-Arginine and 7g L-Glutamine amino acids and 2.5g protein (collagen). NUTRITION MONITORING AND EVALUATION: Will monitor Po intake, supplement acceptance, Weights, Nutrition Related Labs, POC & Follow. [x] Progressing toward goal [] Not progressing [] Progress toward goal declining [] Goal achieved Thuy Guo RD.,LD. Clinical Dietitian [facility] [phone] 10/23/24 documented in this encounter [facility] 10-25-2024 Plan of care note Problem: Pain Goal: Patient goal is pain score less than 4, able to rest, and participant in treatment plan as appropriate Description: INTERVENTIONS: 1. Encourage patient or legal real estate representative to report early pain and ask for pain medicine when needed 2. Assess pain using appropriate pain scale and include the scale used when documenting 3. Administer analgesics based on type and severity of pain and evaluate response within appropriate time frame 4. Implement non-pharmacological measures as appropriate and evaluate response 5. Consider cultural and social influences on pain and pain management 6. Notify LIP if interventions ineffective or patient reports new pain 7. Monitor vital signs including pulse ox, end-tidal CO2 based on pain intervention 8. Reassess pain per policy 9. Teach patient or legal real estate representative interventions for comforting Outcome: Not Progressing Note: Evaluation of progress towards goal: Pt able to report pain according to 0/10 pain scale. Chronic pain reported. Medicating patient for pain per orders. Problem: Safety Goal: Patient will be injury free during hospitalization Description: INTERVENTIONS: 1. Assess patient's risk for falls and implement fall prevention plan of care per policy 2. Provide and maintain a safe environment 3. Proper use of double Identifiers 4. Medication administration using the 5 rights 5. Hand hygiene 6. Specimens are labeled at the bedside 7. Instruct patient/ patient real estate representative about use of safety devices 8. Include patient/ patient real estate representative in decisions related to safety Outcome: Progressing Note: Evaluation of progress towards goal: Pt's risk for falls assessed and fall prevention implemented as needed, safe environment provided and maintained, hand hygiene completed. Problem: Infection Goal: Absence of infection during hospitalization Description: INTERVENTIONS 1. Assess and monitor for signs and symptoms of infection. 2. Monitor lab/diagnostic results. 3. Monitor all insertion sites i.e., indwelling lines, tubes and drains. 4. Monitor endotracheal (as able) and nasal secretions for changes in amount and color. 5. Administer medications as ordered. 6. Instruct and encourage patient and family to use good hand hygiene technique. 7. Identify and instruct patient/patient real estate representative in use of appropriate isolation precautions for identified infection/symptoms. 8. Provide and discuss with patient/patient real estate representative on educational MDRO sheet. 9. Encourage and monitor nutritional status daily and consult clothes separator if indicated. 10. Implement neutropenic guidelines as needed. Outcome: Progressing Note: Evaluation of progress towards goal: Patient VS WNL, remains afebrile for shift. Administered IV and PO antibiotics as ordered, see eMAR. Continue to monitor. HOSPITAL [facility] 10-25-2024 Progress note Formatting of t his note is different from the original. Images from the original note were not included. WOUND CARE NOTE Date of Admission: 10/22/2024 2:01 PM Reason for Consult: Bilateral heels and coccyx History of Present Illness: Jessica Price who presents with Closed displaced left femur fracture. Wound has been present since for a long time per patient. Patient is paralyzed from the neck down. Current wound pain 0/10. Vital Signs: BP 133/76 Pulse 96 Temp 37.2 C (99 F) (Oral) Resp 16 Ht 182.9 cm (6') Wt 85.3 kg (188 lb) SpO2 94% BMI 25.50 kg/m Wound Assessment: Wound 08/20/24 Pressure Injury Back Right Lateral (Active) Wound 08/20/24 Pressure Injury Heel Right (Active) Wound Image 10/25/24 1200 Site Assessment Red;Moist;Purple 10/25/24 1200 Isabel-wound Assessment Blanchable erythema;Colman;Dry 10/25/24 1200 Wound Length (cm) 6 cm 10/25/24 1200 Wound Width (cm) 6.5 cm 10/25/24 1200 Wound Surface Area (cm^2) 39 cm^2 10/25/24 1200 Drainage Amount Small 10/25/24 1200 Treatments Cleansed with;Soap and water 10/25/24 1200 Dressing Type Xeroform;Abdominal dressing;Gauze Rolled/Kerlix 10/25/24 1200 Dressing Changed Changed 10/25/24 1200 Dressing Status Clean;Dry;Intact 10/25/24 1200 Pressure Injury Stage DTPI 10/25/24 1200 Wound 08/20/24 Pressure Injury Heel Left (Active) Wound Image 10/25/24 1200 Site Assessment Moist;Red 10/25/24 1200 Isabel-wound Assessment White;Colman 10/25/24 1200 Shape round 10/24/24 1629 Wound Length (cm) 3 cm 10/25/24 1200 Wound Width (cm) 2.5 cm 10/25/24 1200 Wound Surface Area (cm^2) 7.5 cm^2 10/25/24 1200 Wound Depth (cm) 1.7 cm 10/25/24 1200 Wound Volume (cm^3) 12.75 cm^3 10/25/24 1200 Drainage Description Sanguineous 10/25/24 1200 Drainage Amount Moderate 10/25/24 1200 Treatments Cleansed with;Vashe/Hypochlorous Acid 10/25/24 1200 Dressing Type Moist to moist;Gauze;Abdominal dressing;Gauze Rolled/Kerlix 10/25/24 1200 Dressing Changed Changed 10/25/24 1200 Dressing Status Clean;Dry;Intact 10/25/24 1200 Wound Bed Granulation (%) 100% 10/25/24 1200 Wound 10/09/24 Buttocks Left (Active) Wound 10/09/24 Calf Left;Outer (Active) Wound 10/25/24 Pressure Injury Ankle/Malleolus Right;Medial (Active) Wound Image 10/25/24 1200 Site Assessment Eschar Unstable;Yellow 10/25/24 1200 Isabel-wound Assessment Colman;Non-blanchable erythema 10/25/24 1200 Wound Length (cm) 2 cm 10/25/24 1200 Wound Width (cm) 2 cm 10/25/24 1200 Wound Surface Area (cm^2) 4 cm^2 10/25/24 1200 Drainage Description Serosanguineous;Yellow 10/25/24 1200 Drainage Amount Scant 10/25/24 1200 Treatments Cleansed with 10/25/24 1200 Dressing Type Xeroform;Gauze Rolled/Kerlix 10/25/24 1200 Dressing Changed Changed 10/25/24 1200 Dressing Status Clean;Dry;Intact 10/25/24 1200 Wound Bed Slough (%) < 25% 10/25/24 1200 Wound Bed Eschar (%) 75% to 100% 10/25/24 1200 Pressure Injury Stage U 10/25/24 1200 Wound 10/25/24 Pressure Injury Calf Left;Lateral (Active) Wound Image 10/25/24 1200 Site Assessment Yellow;Brown 10/25/24 1200 Isabel-wound Assessment Blanchable erythema;Dry 10/25/24 1200 Wound Length (cm) 3 cm 10/25/24 1200 Wound Width (cm) 2.5 cm 10/25/24 1200 Wound Surface Area (cm^2) 7.5 cm^2 10/25/24 1200 Drainage Description Serosanguineous;Yellow 10/25/24 1200 Drainage Amount Small 10/25/24 1200 Treatments Cleansed with;Soap and water 10/25/24 1200 Dressing Type Vaseline gauze;Honey Dressing;Gauze Rolled/Kerlix 10/25/24 1200 Dressing Changed New 10/25/24 1200 Dressing Status Clean;Dry;Intact 10/25/24 1200 Wound Bed Slough (%) 100% 10/25/24 1200 Wound 10/25/24 Pressure Injury Hip Left;Lateral (Active) Wound Image 10/25/24 1200 Site Assessment Yellow;Colman;Moist 10/25/24 1200 Isabel-wound Assessment Blanchable erythema 10/25/24 1200 Wound Length (cm) 0.5 cm 10/25/24 1200 Wound Width (cm) 1 cm 10/25/24 1200 Wound Surface Area (cm^2) 0.5 cm^2 10/25/24 1200 Wound Depth (cm) 0.1 cm 10/25/24 1200 Wound Volume (cm^3) 0.05 cm^3 10/25/24 1200 Drainage Description Serosanguineous;Yellow 10/25/24 1200 Drainage Amount Scant 10/25/24 1200 Treatments Cleansed with;Soap and water 10/25/24 1200 Dressing Type Triad hydro;Foam 10/25/24 1200 Wound Bed Granulation (%) < 25% 10/25/24 1200 Wound Bed Slough (%) 75% to 100% 10/25/24 1200 Pressure Injury Stage 2 10/25/24 1200 Wound 10/25/24 Pressure Injury Hip Right;Lateral (Active) Wound Image 10/25/24 1200 Site Assessment Yellow;Colman 10/25/24 1200 Isabel-wound Assessment Blanchable erythema 10/25/24 1200 Wound Length (cm) 0.3 cm 10/25/24 1200 Wound Width (cm) 0.5 cm 10/25/24 1200 Wound Surface Area (cm^2) 0.15 cm^2 10/25/24 1200 Wound Depth (cm) 0.2 cm 10/25/24 1200 Wound Volume (cm^3) 0.03 cm^3 10/25/24 1200 Drainage Description Serosanguineous;Yellow 10/25/24 1200 Drainage Amount Scant 10/25/24 1200 Treatments Cleansed with;Soap and water 10/25/24 1200 Dressing Type Triad hydro;Foam 10/25/24 1200 Dressing Changed New 10/25/24 1200 Dressing Status Clean;Dry;Intact 10/25/241199 Wound Bed Slough (%) 100% 10/25/241199 Pressure Injury Stage 2 10/25/241199 Wound 10/25/24 Pressure Injury Buttocks Left (Active) Wound Image 10/25/241199 Site Assessment Purple;Red 10/25/241199 Isabel-wound Assessment Blanchable erythema 10/25/241199 Wound Length (cm) 15 cm 10/25/241199 Wound Width (cm) 12 cm 10/25/24 1200 Wound Surface Area (cm^2) 180 cm^2 10/25/24 1200 Wound Depth (cm) 0.3 cm 10/25/24 1200 Wound Volume (cm^3) 54 cm^3 10/25/24 1200 Drainage Description Serosanguineous;Yellow 10/25/24 1200 Drainage Amount Moderate 10/25/24 1200 Treatments Cleansed with;Soap and water 10/25/24 1200 Dressing Type Abdominal dressing;Triad hydro 10/25/24 1200 Dressing Changed New 10/25/24 1200 Dressing Status Clean;Dry;Intact 10/25/24 1200 Wound Plan Dressing: Right lateral ankle and left lateral calf: Cleanse with soap and water then pat dry. Apply medi honey to adaptic then place on wound bed. Secure with roll gauze. Change daily Right Heel: Cleanse with soap and water then pat dry. Apply alginate to wound bed then Cover with roll gauze. Change daily Left Heel: Cleanse with soap and water then pat dry. Lightly pack with 0.125% dakin's moistened gauze then cover with Abdominal dressing secure with roll gauze. Change 2 times a day. Buttocks and groin: Cleanse with soap and water then pat dry. Apply thin layer of triad (Do Not Scrub off before reapplying). Apply daily Bilateral Hips: Cleanse with soap and water then pat dry. Apply thin layer of triad (Do Not Scrub off before reapplying) and cover with foam dressing. Change foam dressing every 3 days. Offloading: Turn patient every 2 hours. Ordered low air loss mattress. Patient has shelly kim boots. Skin Care: Moisturize all dry and intact skin Edema Management: Luis Alfredo wraps to bilateral lower extremities Follow up: Will continue to see while inpatient.Patient is unsure to what wound clinic he will be going to at discharge. Patient being [facility] to [facility] Thank you for allowing us to participate in the care of this patient. Please feel free to call us with any questions or concerns. Lata Acharya Enterostomal/Wound Care Preferred contact via Ext. [phone], [facility] or [facility] [place] WOOL PULLER: ANTONIO Freitas Banyan 10-25-2024 Progress note Formatting of t his note is different from the original. DISCHARGE PLANNING NOTE 10/25/24 1149 Services Requested Patient expects to be discharged to: [facility] SNF Name [facility] SNF Per [facility] can accept; typewriter repairer met with pt regarding choice, pt had no preference & deferred to [facility]. Call placed to Hel[facility], informed on acceptance; preference is [facility]. Millstone Cleaner sent messages via Zilyo to non-selected SNF's & confirmed [facility] in [facility]. Sticky note on chart regarding DC plan. Care Navigation following for safe care transition. Banyan 10-25-2024 Progress note Formatting of t his note might be different from the original. DISCHARGE PLANNING NOTE Referral sent to. [facility] (P# ; F# ) [facility] (P#: ; F#: ) [place] [id number] [facility] 10-25-2024 Progress note Formatting of t his note is different from the original. Images from the original note were not included. DISCHARGE PLANNING NOTE 10/25/24 0959 Discharge Disposition Discharge Disposition SNF Patient Information Primary Caregiver Self Accompanied by/Relationship pt on phone with pt while typewriter repairer in room completing DC planning assessment & discussing choices of SNF's Support System Immediate family Stressors Type of stressor Health issues Explain issues is entitled to 40 hrs per week of aid services through workers comp however they are not able to find aid services Income Information Income Information Retired/Pension/Social Security Referral To Community Resources Denies needs Discharge Planning Living Arrangements Spouse/significant other Support Systems Family members;Spouse/significant other Assistance Needed adls/iadls Type of Residence Private residence Private Residence 1 [facility] Accessibility [facility] Yes Type of Home Care Services Nurse visit Community Agencies Currently Utilized Established Home care Provider Name [facility] Service Provided Group Home Patient expects to be discharged to: SNF Does the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 Interpersonal Safety: Not At Risk (10/22/2024) Humiliation, Afraid, Rape, and Kick questionnaire Fear of Current or Ex-Partner: No Emotionally Abused: No Physically Abused: No Sexually Abused: No Housing Instability: Low Risk (10/22/2024) Housing Instability Housing Instability: No Family History: No family history on file. Review of Systems REVIEW OF SYSTEMS: MUSCULOSKELETAL: Positive for gait difficulties GI: Denies abdominal pain CONSTITUTIONAL: Denies fever or chills EYES: Denies vision changes ENT: Denies CARDIOVASCULAR: Denies chest pain RESPIRATORY: Denies shortness of breath HEMATOLOGIC: Denies. Objective Physical Exam BP 127/60 Pulse 103 Temp 37.9 C (100.2 F) (Oral) Resp 18 Ht 182.9 cm (6') Wt 85.3 kg (188 lb) SpO2 91% BMI 25.50 kg/m O2 Device: None (Room air) General Appearance: Patient is alert and cooperative. He is not in any acute distress Skin: Skin color, texture normal Head: normocephalic, without obvious abnormality Eyes: negative, conjunctivae/corneas clear ENT: ears,nose, and throat intact, no sinus tracts/drainage Neck: supple, symmetrical, trachea midline Heart: regular rate Lungs: Nonlabored breathing, no cough Neurologic: Atrophy, Quadriplegia, sensory loss Extremities: Left lower extremity: Skin is pale. There are dressings covering the heel and lower leg/ankle. Patient is also in a knee immobilizer. The knee immobilizer appears well positioned. There is no evidence for any open injury of the distal femur. There is [id number]-[id number] peripheral edema present throughout the entire lower leg. Paralysis at baseline. Knee immobilizer maintained. Right lower extremity: Skin is pale. Jpuk-of-oqlotlib peripheral edema present throughout the entire lower leg. Skin changes noted. No gross deformity. Paralysis at baseline. Upper extremity bilateral: Skin is pale. Minimal edema. contracture of the right wrist. No other obvious gross deformity. Paralysis at baseline with sensory loss. Imaging X-ray femur left 2+ views Result Date: 10/22/2024 Narrative: XR FEMUR LT 2+ VIEWS Clinical history:trauma and deformity acute leg pain. Comparison: None. Impression: Comminuted impacted mildly angulated and displaced distal femoral fracture. Diffuse osteopenia and demineralization. No definitive proximal injury. The proximal femur and hip are not fully visualized on the provided imaging. Finalized by Morgan Steele MD on 10/22/2024 3:03 PM X-ray knee left 3 views Result Date: 10/22/2024 Narrative: History: Pain/hematuria. Chronic renal disease.. Quadriplegia Study: Left Knee Three view study. Comparison: None Impression: Comminuted distal femoral fracture is appreciated. Severe osteoporosis is noted. More chronic appearing deformity in the proximal tibia. Follow-up with orthopedics is advised.. 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 Procedure: 1. Ultrasound-guided access into a vein as below. 2. Fluoroscopically guided tunneled hemodialysis catheter placement. Radiologist: Dr. Izquierdo Anesthesia: Continuous monitoring was provided by independent qualified radiology nursing personnel under physician supervision. Medications: 100 mcg of fentanyl Contrast: None Fluoroscopy time: 0.4 minutes Reference air Kerma: 3 mGy Complications None. Conscious sedation time: None Technique: Risks, benefits, and alternatives were discussed. All questions were answered and informed consent was obtained. Automated radiation exposure lowering techniques were utilized. Hand hygiene performed. The neck and chest were prepped and draped in the appropriate sterile fashion. A initial ultrasound of the neck demonstrated a patent, compressible vein free of clot suitable for access. A permanent ultrasound image was obtained. Under ultrasound guidance, a micropuncture needle was advanced into the vein. Nonpulsatile blood was noted. An 018 wire was advanced appropriately to confirm venous placement and the needle exchanged for the micropuncture dilator set. Attention was then turned to creation of the tunnel. The skin exit site was chosen. Local anesthesia was instilled and a skin wero made. Local anesthesia was administered into the tunnel. The catheter was tunneled to the neck access site. The micropuncture set was upsized over an 035 Amplatz to a peel-away sheath. The tip of the catheter was then passed through the peel-away sheath after wire removal. A final AP image of the chest demonstrated tip of the catheter to reside at the cava atrial junction. The catheter genevieve and flushed easily. A cap was placed. 2-0 silk suture was used to secure the catheter at the skin exit site. Skin glue was used at the neck access site. Sterile dressings were placed at the skin exit site. Patient left the angiography suite in stable condition. Impression: Status post placement of a right internal jugular vein single lumen 5 Austrian by 19 cm tip to cuff tunneled central venous catheter. The catheter is okay to use. Finalized by Juana Izquierdo MD on 10/13/2024 5:39 PM MR ankle right without contrast Result Date: 10/08/2024 Narrative: MR RIGHT ANKLE CLINICAL INFORMATION: Pain. COMPARISON: None. PROCEDURE: Routine MRI of the ankle performed. Multisequence, multiplanar imaging was obtained. FINDINGS: OSSEOUS STRUCTURES AND JOINTS Bones: No acute bone marrow signal abnormality in the ankle region. Tibiotalar joint: Small joint effusion. Chondral thinning. No osteochondral injury. Subtalar joint: No focal abnormality. Tarsal joints: Within normal limits. SOFT TISSUES Muscles: No gross muscular abnormality. Tarsal tunnel: Normal. Sinus tarsi: Normal. Plantar fascia: No gross abnormality. Intact aponeurotic attachment. There is abnormal signal within the subcutaneous and cutaneous signals of the plantar aspect of the heel and along the lateral aspect of the ankle region. Subcutaneous heterogeneity is present compatible with edema. TENDONS Achilles tendon: Normal distally. Posterior tibial tendon: Normal. Flexor digitorum longus tendon: Normal. Flexor hallucis longus: Normal. Peroneus longus tendon: Normal. Peroneus brevis tendon: Normal. Peroneal retinaculum: Normal. Anterior tibial tendon: Normal. Extensor hallucis longus: Normal. Extensor digitorum longus: Normal. LIGAMENTS Anterior inferior tibiofibular (syndesmotic) ligament: Normal. Posterior inferior tibiofibular (syndesmotic) ligament: Normal. Anterior talofibular ligament: Normal. Posterior talofibular ligament: Normal. Calcaneofibular ligament: Normal. Deltoid ligament complex (superficial): Normal. Deltoid ligament complex (deep): Normal. Spring ligament: Within normal limits. IMPRESSION: 1. Cutaneous and subcutaneous irregularity along the dorsal aspect of the ankle and in the plantar aspect of the heel compatible with edema/cellulitis. No abscess or focal abnormality evident. 2. No osseous abnormality within the ankle region. 3. No gross ligamentous or musculotendinous injury. Finalized by Jeremías Vegas MD on 10/08/2024 1:31 PM Vas art doppler lwr bilat mult lev/PVR Result Date: 10/07/2024 Narrative: Right: Essentially normal PVR waveform contour at all levels. No calf waveform augmentation noted. PT SHANTA is 0.92; DP SHANTA is 1.00. Multiphasic with diastolic flow reversal PT and DP, CW Doppler waveforms. Left: Essentially normal PVR waveform contour at all levels. No calf waveform augmentation noted. PT SHANTA is 0.96; DP SHANTA is 0.92. Multiphasic with diastolic flow reversal PT and DP, CW Doppler waveforms. General: Brachial pressures could not be performed due to patient positioning difficulties. Conclusions: BILATERAL:Normal lower extremity SHANTA at rest. Unable to obtain left brachial pressure due to patient positioning. Recommendations: Any questions prior to finalization, please call the reading physician during normal business hours at the phone number beside their name. Vas art duplex lwr bilateral Result Date: 10/06/2024 Narrative: Right: Plaque and spectral waveforms with diastolic flow reversal noted in the external iliac, common femoral, deep femoral, superficial femoral, popliteal, peroneal, posterior and anterior tibial artery without significant color flow disturbance. Left: Plaque with multiphasic waveforms and diastolic flow reversal in the common femoral, deep femoral, proximal thru mid superficial femoral and anterior tibial artery. Low resistive and hyperemic distal SFA waveforms. Monophasic popliteal, posterior tibial and peroneal artery waveforms. General: In-patient, bedside examination. Conclusions: BILATERAL: Arterial plaque with no hemodynamically significant stenosis of the lower extremity. Recommendations: Any questions prior to finalization, please call the reading physician during normal business hours at the phone number beside their name. EEG Video Monitoring Daily Result Date: 10/05/2024 Narrative: Images from the original result were not included. [facility] EEG Report EEG Service Date: 10/05/2024 06:00 until 10/04/2026 11:07. Day 3 of recording Date of Report: 10/05/2024 History: 63 year old man with concern for seizures Medications: Fentanyl Technique: This EEG was acquired with electrodes placed according to the 10-20 electrode placement system. A single EKG channel was recorded for cardiac rhythm monitoring. Video was recorded simultaneously. The quality of recording was good. The entire EEG study along with video for selected events was reviewed. EEG Classification: Abnormal I State of Consciousness: Awake and asleep EEG Findings: 1.) Dominant Rhythm: A PDR of up to 6 Hz was seen 2.) Background: The background was slow, with a PDR of up to 6 Hz. Reactivity to external stimuli was appreciated. Slow wave stage N3 sleep was seen often. EKG artifact was seen at times. 3.) There is continuous slow, generalized, underlying delta > theta waves, seen throughout the recording. 4.) HR 60-62 BPM, regular Impression: This vEEG is indicative of mild to moderate diffuse encephalopathy. No epileptiform discharges or lateralizing signs were seen. In comparison with yesterday's recording, there is no significant change. Court De Los Santos MD [facility] EEG Video Monitoring Daily Result Date: 10/05/2024 Narrative: Images from the original result were not included. [facility] EEG Report EEG Service Date: 10/04/2024 06:00 until 10/04/2026 23:02. Day 2 of recording Date of Report: 10/05/2024 History: 63 year old man with concern for seizures Medications: Fentanyl Technique: This EEG was acquired with electrodes placed according to the 10-20 electrode placement system. A single EKG channel was recorded for cardiac rhythm monitoring. Video was recorded simultaneously. The quality of recording was good. The entire EEG study along with video for selected events was reviewed. EEG Classification: Abnormal I State of Consciousness: Awake and asleep EEG Findings: 1.) Dominant Rhythm: A PDR of up to 6 Hz was seen 2.) Background: The background was slow, with a PDR of up to 6 Hz. Reactivity to external stimuli was appreciated. Slow wave stage N3 sleep was seen often. EKG artifact was seen throughout the recording. 3.) There is continuous slow, generalized, underlying delta > theta waves, seen throughout the recording. 4.) HR 60-64 BPM, regular Impression: This vEEG is indicative of mild to moderate diffuse encephalopathy. No epileptiform discharges or lateralizing signs were seen. In comparison with yesterday's recording, there is a slight improvement due to a decrease in the degree of encephalopathy. Court De Los Santos MD [facility] EEG Video Monitoring Daily Result Date: 10/05/2024 Narrative: Images from the original result were not included. [facility] [employer] EEG Report EEG Service Date: 10/04/2024 00:12 until 10/04/2026 06:00. Day 1 of recording Date of Report: 10/04/2024 History: 63 year old man with concern for seizures Medications: Fentanyl Technique: This EEG was acquired with electrodes placed according to the 10-20 electrode placement system. A single EKG channel was recorded for cardiac rhythm monitoring. Video was recorded simultaneously. The quality of recording was good. The entire EEG study along with video for selected events was reviewed. EEG Classification: Abnormal II State of Consciousness: Stupor EEG Findings: 1.) Dominant Rhythm: No clear PDR was seen 2.) Background: The background was slow, without a PDR. Reactivity to external stimuli was appreciated. No progressive sleep stages were seen. Of note, EMG artifact was seen often during the recording. 3.) There is continuous slow, generalized, underlying delta > theta waves, seen throughout the recording. 4.) HR 60-64 BPM, regular Impression: This vEEG is indicative of moderate diffuse encephalopathy. No epileptiform discharges or lateralizing signs were seen. EMG artifact was seen throughout the recording. 10 uV Sensitivity, EMG artifact Court De Los Santos MD [facility] Baseline Routine EEG Result Date: 10/04/2024 Narrative: Images from the original result were not included. [facility] EEG Report Length of Study: 30 minutes EEG Service Date: 10/03/2024 History: 63 year old man with concern for seizures Medications: Fentanyl Technique: This EEG was acquired with electrodes placed according to the 10-20 electrode placement system. A single EKG channel was recorded for cardiac rhythm monitoring. The quality of recording was good. EEG Classification: Abnormal II State of Consciousness: Stupor EEG Findings: 1.) Dominant Rhythm: No clear PDR was seen 2.) Background: The background was slow, without a PDR. Reactivity to external stimuli was appreciated. No progressive sleep stages were seen. 3.) Activating procedures: Hyperventilation was not performed. Photic stimulation was performed, but did not produce significant changes. 4.) There is continuous slow, generalized, underlying delta > theta waves, seen throughout the recording. 5.) HR 64-68 BPM, regular Impression: This EEG is indicative of moderate diffuse encephalopathy. No epileptiform discharges or lateralizing signs were seen. Court De Los Santos MD [facility] CT brain without contrast Result Date: 10/03/2024 Narrative: History: Transient alteration of awareness Technique: Contiguous axial images through the brain were obtained without the administration of intravenous contrast material. Automated exposure control was utilized. Comparison: 09/28/2024 Findings: The ventricles are normal in size. There is no evidence of midline shift. There are no areas of abnormal density to suggest presence of acute major vessel infarct, mass lesion, or hemorrhage. The visualized osseous structures are intact. Impression: Normal CT brain. All CT scans at this facility use dose modulation, iterative reconstruction, and/or weight based dosing when appropriate to reduce radiation dose to as low as reasonably achievable. Finalized by Magy Gutierres MD on 10/03/2024 11:03 PM X-ray chest 1 view Result Date: 10/03/2024 Narrative: EXAM: Chest, one view REASON FOR EXAM: dyspnea TECHNIQUE: Single AP view of the chest COMPARISON: 09/29/2024, 09/28/2024 FINDINGS: Right neck central line terminates projecting over the expected location of the SVC. The trachea is midline. Cardiomediastinal silhouette is prominent, enhanced by AP technique. There are questioned left retrocardiac air bronchograms. Possible small left pleural effusion. IMPRESSION: Possible left retrocardiac pulmonary infiltrate. Likely small left pleural effusion. Finalized by Sabina Garcia MD on 10/03/2024 9:58 PM MR ankle left without contrast Result Date: 10/03/2024 Narrative: History: Osteomyelitis suspected, ankle, xray done Wound left heel Comparison left calcaneus x-rays from October 01 PROCEDURE: Multiplanar multisequence images performed the left ankle MR ANKLE LT WO CONT Multiplanar multisequence MR imaging performed through the ankle. Findings: Extensive edema within the calcaneus consistent with osteomyelitis at its posterior aspect. Mild reactive retrocalcaneobursitis and periostitis along the plantar aspect of the calcaneus Moderate reactive effusion tibiotalar and subtalar joint Extensive soft tissue swelling of the subcutaneous tissues along the lateral dorsum of the foot which could be edema and/or cellulitis. No well-defined abscess Mild arthritic findings of the intertarsal articulations Plantar fascia unremarkable. The Achilles tendon, the peroneal tendons, and the tendons of the tarsal tunnel are unremarkable. The deltoid ligaments, talofibular ligaments, and calcaneofibular ligaments are unremarkable. The sinus tarsi is unremarkable. Angle of [place] is unremarkable. The talar dome, tibiotalar joint, and subtalar joint are otherwise unremarkable Lisfranc ligament intact IMPRESSION: Extensive edema within the calcaneus consistent with osteomyelitis at its posterior aspect. Mild reactive retrocalcaneal bursitis and periostitis along the plantar aspect of the calcaneus Moderate reactive effusion tibiotalar and subtalar joint Extensive soft tissue swelling of the subcutaneous tissues along the lateral dorsum of the foot which could be edema and/or cellulitis. No well-defined abscess Mild arthritic findings of the intertarsal articulations Finalized by Rigoberto Mobley MD on 10/03/2024 8:51 PM X-ray calcaneus left [place] 2 views Result Date: 10/02/2024 Narrative: History: Evaluate for osteomyelitis. Exam/Technique: AP and Hale view of the calcaneus. Comparison: 09/07/2024. Findings: Marked osteopenia. Marked soft tissue swelling of the midfoot. No emphysematous changes. Significant remodeling of the hindfoot articulations with likely degenerative changes. No destructive changes of the calcaneus. IMPRESSION: No destructive changes of the calcaneus or the talocalcaneal articulation. Marked soft tissue edema and swelling. Finalized by Sree Weber MD on 10/02/2024 1:03 AM X-ray chest 1 view Result Date: 09/29/2024 Narrative: HISTORY: Central line placement COMPARISON: Chest x-ray 09/28/2024 FINDINGS: Portable AP upright view of the chest was performed. Right jugular venous catheter tip overlies the SVC. Cardiac silhouette is enlarged but stable. Left basilar airspace disease. No significant vascular congestion, pleural effusion or pneumothorax. Partially visualized cervical fusion hardware. IMPRESSION: * Appropriately positioned right jugular venous catheter. * Left basilar atelectasis versus pneumonia. Finalized by Quincy Newell MD on 09/29/2024 10:19 AM X-ray chest 1 view Result Date: 09/28/2024 Narrative: XR CHEST 1 VW 09/28/2024 10:45 PM INDICATION: Chest pain COMPARISON: Priors dating back to 08/23/2024 TECHNIQUE: AP portable upright view the chest was obtained. FINDINGS: Left basilar patchy opacity. There is no pneumothorax. Similar mild blunting of the right costophrenic angle.. The cardiomediastinal silhouette is unremarkable. No acute osseous abnormalities. IMPRESSION: Left basilar patchy opacity, nonspecific possibly related to pneumonia in the appropriate clinical setting. Finalized by Morgan Horvath on 09/28/2024 11:18 PM Lab Review Recent Results (from the past 48 hours) Comprehensive metabolic panel Collection Time: 10/23/24 5:46 AM Result Value Ref Range Sodium 137 134 - 146 mmol/L Potassium, Bld 5.3 (H) 3.5 - 5.0 mmol/L Chloride 106 98 - 109 mmol/L CO2 17 (L) 22 - 32 mmol/L Anion gap 14 5 - 15 mmol/L BUN 98 (H) 5 - 27 mg/dL Creatinine 4.32 (H) 0.70 - 1.20 mg/dL Glucose 120 (H) 65 - 99 mg/dL Calcium 7.8 (L) 8.5 - 10.5 mg/dL Total Protein 5.4 (L) 6.0 - 8.0 g/dL Albumin 2.2 (L) 3.2 - 5.3 g/dL Alkaline Phosphatase 61 39 - 130 U/L AST 16 0 - 41 U/L ALT 11 0 - 40 U/L Total bilirubin 0.6 0.3 - 1.2 mg/dL eGFR (CKD-EPI)non-race dependent 14 (L) >59 ml/min/1.73sq.m Magnesium Collection Time: 10/23/24 5:46 AM Result Value Ref Range Magnesium 1.7 (L) 1.8 - 2.6 mg/dL CBC auto differential Collection Time: 10/23/24 5:46 AM Result Value Ref Range White Blood Cells 7.1 4.0 - 11.0 X10E9/L RBC count 2.13 (L) 4.10 - 5.70 X10E12/L Hemoglobin 6.1 (LL) 13.0 - 17.0 g/dL Hematocrit 19.0 (L) 39 - 49 % MCV 89 80 - 100 fL MCH 28.8 27 - 34 pg MCHC 32.3 32 - 36 g/dL RDW 17.5 (H) 11.5 - 15.0 % Platelets 133 (L) 150 - 450 X10E9/L MPV 8.0 7 - 12 fL % neutrophils 77.9 % % lymphocytes 8.7 % % monocytes 9.7 % % eosinophils 3.1 % % Basophils 0.6 % Neutrophils Absolute (A) 5.5 1.5 - 6.6 X10E9/L Lymphocytes Absolute 0.6 (L) 1.0 - 3.5 X10E9/L Monocytes Absolute 0.7 0 - 0.9 X10E9/L Eosinophils Absolute 0.2 0.0 - 0.4 X10E9/L Basophils Absolute 0.0 0.0 - 0.2 X10E9/L Bedside Glucose *Place/Obtain serum glucose if >500(>600 [facility]H) per glucometer. Collection Time: 10/23/24 12:40 PM Result Value Ref Range Bedside glucose 132 (H) 65 - 99 mg/dL Occult blood x 1, stool Collection Time: 10/23/24 2:00 PM Result Value Ref Range Occult blood Positive (A) Negative^Negative Potassium Collection Time: 10/23/24 2:08 PM Result Value Ref Range Potassium, Bld 4.9 3.5 - 5.0 mmol/L Hemoglobin and hematocrit, blood Collection Time: 10/23/24 7:30 PM Result Value Ref Range Hemoglobin 6.7 (LL) 13.0 - 17.0 g/dL Hematocrit 20.2 (L) 39 - 49 % Hemoglobin and hematocrit, blood Collection Time: 10/24/24 1:10 AM Result Value Ref Range Hemoglobin 7.8 (L) 13.0 - 17.0 g/dL Hematocrit 23.9 (L) 39 - 49 % Comprehensive metabolic panel Collection Time: 10/24/24 5:00 AM Result Value Ref Range Sodium 137 134 - 146 mmol/L Potassium, Bld 5.7 (H) 3.5 - 5.0 mmol/L Chloride 106 98 - 109 mmol/L CO2 20 (L) 22 - 32 mmol/L Anion gap 11 5 - 15 mmol/L BUN 98 (H) 5 - 27 mg/dL Creatinine 4.29 (H) 0.70 - 1.20 mg/dL Glucose 105 (H) 65 - 99 mg/dL Calcium 7.3 (L) 8.5 - 10.5 mg/dL Total Protein 5.5 (L) 6.0 - 8.0 g/dL Albumin 2.2 (L) 3.2 - 5.3 g/dL Alkaline Phosphatase 61 39 - 130 U/L AST 14 0 - 41 U/L ALT 12 0 - 40 U/L Total bilirubin 0.8 0.3 - 1.2 mg/dL eGFR (CKD-EPI)non-race dependent 14 (L) >59 ml/min/1.73sq.m Magnesium Collection Time: 10/24/24 5:00 AM Result Value Ref Range Magnesium 1.6 (L) 1.8 - 2.6 mg/dL CBC auto differential Collection Time: 10/24/24 5:00 AM Result Value Ref Range White Blood Cells 8.1 4.0 - 11.0 X10E9/L RBC count 2.60 (L) 4.10 - 5.70 X10E12/L Hemoglobin 7.7 (L) 13.0 - 17.0 g/dL Hematocrit 22.9 (L) 39 - 49 % MCV 88 80 - 100 fL MCH 29.7 27 - 34 pg MCHC 33.6 32 - 36 g/dL RDW 15.9 (H) 11.5 - 15.0 % Platelets 123 (L) 150 - 450 X10E9/L MPV 8.4 7 - 12 fL % neutrophils 76.7 % % lymphocytes 8.1 % % monocytes 11.3 % % eosinophils 3.4 % % Basophils 0.5 % Neutrophils Absolute (A) 6.2 1.5 - 6.6 X10E9/L Lymphocytes Absolute 0.7 (L) 1.0 - 3.5 X10E9/L Monocytes Absolute 0.9 0 - 0.9 X10E9/L Eosinophils Absolute 0.3 0.0 - 0.4 X10E9/L Basophils Absolute 0.0 0.0 - 0.2 X10E9/L Potassium Collection Time: 10/24/24 5:00 PM Result Value Ref Range Potassium, Bld 4.9 3.5 - 5.0 mmol/L Assessment: Patient Active Problem List Diagnosis UTI (urinary tract infection) Pressure injury of deep tissue of right heel Pressure injury of left heel, stage 4 ([facility]) Pressure injury of right upper back, stage 4 ([facility]) Pressure injury of sacral region, stage 3 ([facility]) Open wound of scrotum Skin ulcer of back with fat layer exposed ([facility]) Skin ulcer of perianal region with fat layer exposed ([facility]) Skin ulcer of right calf, limited to breakdown of skin ([facility]) Melena Quadriplegia, C1-C4, complete ([facility]) Neurogenic bladder Neurogenic bowel Sepsis due to Escherichia coli with acute renal failure and septic shock ([facility]) Acute hypoxemic respiratory failure ([facility]) Serum phosphate elevated Thrombocytopenia [place] CKD (chronic kidney disease) stage 4, GFR 15-29 ml/min ([facility] Severe sepsis [facility] Hypothermia Volume overload Pressure injury of deep tissue of right calf Seizure ([facility] Subacute osteomyelitis of left foot ([facility] Open wound of heel, left, initial encounter Closed displaced comminuted fracture of shaft of left femur, initial encounter ([facility] Stage 5 chronic kidney disease not on chronic dialysis ([facility] Iron deficiency anemia secondary to inadequate dietary iron intake Hyperkalemia Comminuted impacted mildly angulated and displaced distal femoral fracture. Diffuse osteopenia and demineralization. Plan: Imaging, diagnosis and plan discussed and reviewed in detail with the patient, the patient's , nursing staff as well as with surgeon Dr. Chacorta Smith. Patient is a quadriplegic who fell out of his chair 2 days ago landing directly on his left knee. X-rays were taken in the emergency department and independently reviewed by myself which revealed a comminuted, impacted as well as displaced distal femur fracture. Patient also with diffuse osteopenia and demineralization with osteoarthritis of the knee. There is also a subtle irregularity over the proximal tibia concerning for possible additional fracture. Comminuted impacted and angulated displaced distal femoral fracture of the left leg: - review of imaging by myself as well as surgeon Dr. Chacorta Smith. Patient is a quadriplegic and is otherwise not a good surgical candidate due to the patient's medical comorbidities as well as the diffuse osteopenia and demineralization of his bones. Recommendation is for non operative intervention. Continue immobilization. Thorough discussion with the patient as well as his on treatments were reviewed. They verbalized understanding. They were in agreement with this plan. - continue knee immobilizer of the left knee - strict nonweightbearing of the left lower extremity to protect the fracture as well as to allow for healing and to prevent further displacement. - PT/OT to evaluate on the need for prison facility versus home care and the ability to transfer the patient while maintaining nonweightbearing of the left lower extremity in the knee immobilizer - irregular x-ray of the knee shows possible fracture of the proximal tibia. We will proceed with an MRI of the left tibia/fibula for further evaluation. - decubitus precautions. Continue medical management. - continue discharge planning pending MRI results as well as evaluation from PT/OT For questions or concerns, contact myself or the surgeon Dr. Chacorta Smith. Signed, not reviewed in detail Jim Mckeon PA-C 10/24/24 [id number] documented in this encounter [facility] 10-24-2024 Plan of care note Problem: Pain Goal: Patient goal is pain score less than 4, able to rest, and participant in treatment plan as appropriate Description: INTERVENTIONS: 1. Encourage patient or legal real estate representative to report early pain and ask for pain medicine when needed 2. Assess pain using appropriate pain scale and include the scale used when documenting 3. Administer analgesics based on type and severity of pain and evaluate response within appropriate time frame 4. Implement non-pharmacological measures as appropriate and evaluate response 5. Consider cultural and social influences on pain and pain management 6. Notify LIP if interventions ineffective or patient reports new pain 7. Monitor vital signs including pulse ox, end-tidal CO2 based on pain intervention 8. Reassess pain per policy 9. Teach patient or legal real estate representative interventions for comforting Outcome: Progressing Note: Evaluation of progress towards goal: Continue to assess for pain and address accordingly Problem: Safety Goal: Patient will be injury free during hospitalization Description: INTERVENTIONS: 1. Assess patient's risk for falls and implement fall prevention plan of care per policy 2. Provide and maintain a safe environment 3. Proper use of double Identifiers 4. Medication administration using the 5 rights 5. Hand hygiene 6. Specimens are labeled at the bedside 7. Instruct patient/ patient real estate representative about use of safety devices 8. Include patient/ patient real estate representative in decisions related to safety Outcome: Progressing Note: Evaluation of progress towards goal: Pt remains free from falls or accidental injury during stay. Fall prevention measures in place. Hourly rounding per RN and NA maintained. Problem: Knowledge Deficit Goal: Patient/patient real estate representative demonstrates understanding of disease process, treatment plan, medications, and discharge instructions Description: INTERVENTIONS 1. Complete learning assessment and assess knowledge base 2. Provide teaching at level of understanding 3. Provide teaching via preferred learning method(s) Outcome: Progressing Note: Evaluation of progress towards goal: Discussed POC for HS. Questions answered. States an understanding. Review as needed. Problem: Discharge Planning Goal: Discharge to post-acute care, other facility, or home with appropriate resources Description: Patient's goal is: INTERVENTIONS 1. Conduct assessment to determine patient/family and health care team treatment goals, and need for post-acute services based on payer coverage, community resources, and patient preferences, and barriers to discharge 2. Coordinate with Social work, Care Navigation, and Utilization Review to arrange appropriate level of services according to patient's needs based on patient preference and payer coverage in collaboration with the physician and health care team 3. Address psychosocial, clinical, and financial barriers to discharge as identified in assessment in conjunction with the patient/family and health care team 4. Consult appropriate ancillary services (i.e.. PT/OT/ST, etc) as needed 5. Communicate with and update the patient/family, physician, and health care team regarding progress on the discharge plan 6. Identify discharge learning needs (meds, wound care, etc). 7. Arrange for needed discharge transportation as appropriate Outcome: Progressing Note: Evaluation of progress towards goal: Continue to collaborate with all services and work towards [facility] Nurse Note Pt requesting to take all AM PO medications after breakfast. [facility] 10-24-2024 Progress note Formatting of t his note is different from the original. Physical Therapy PT Type of Visit: Medical deferral Awaiting Ortho Consult. Will continue to follow as appropriate. [facility] 10-24-2024 Plan of care note Problem: Pain Goal: Patient goal is pain score less than 4, able to rest, and participant in treatment plan as appropriate Description: INTERVENTIONS: 1. Encourage patient or legal real estate representative to report early pain and ask for pain medicine when needed 2. Assess pain using appropriate pain scale and include the scale used when documenting 3. Administer analgesics based on type and severity of pain and evaluate response within appropriate time frame 4. Implement non-pharmacological measures as appropriate and evaluate response 5. Consider cultural and social influences on pain and pain management 6. Notify LIP if interventions ineffective or patient reports new pain 7. Monitor vital signs including pulse ox, end-tidal CO2 based on pain intervention 8. Reassess pain per policy 9. Teach patient or legal real estate representative interventions for comforting Outcome: Not Progressing Note: Evaluation of progress towards goal: Pt reports chronic pain due to spinal injury Problem: Safety Goal: Patient will be injury free during hospitalization Description: INTERVENTIONS: 1. Assess patient's risk for falls and implement fall prevention plan of care per policy 2. Provide and maintain a safe environment 3. Proper use of double Identifiers 4. Medication administration using the 5 rights 5. Hand hygiene 6. Specimens are labeled at the bedside 7. Instruct patient/ patient real estate representative about use of safety devices 8. Include patient/ patient real estate representative in decisions related to safety Outcome: Progressing Note: Evaluation of progress towards goal: Patient will remain free from falls. Room is clear of clutter, non- slip footwear is provided. Will continue to monitor. Problem: Knowledge Deficit Goal: Patient/patient real estate representative demonstrates understanding of disease process, treatment plan, medications, and discharge instructions Description: INTERVENTIONS 1. Complete learning assessment and assess knowledge base 2. Provide teaching at level of understanding 3. Provide teaching via preferred learning method(s) Outcome: Progressing Note: Evaluation of progress towards goal: Pt educated on treatment plan and medications. Problem: Moderate - High Risk Fall Score Description: Patiño Fall Score of =/> 25 or indicated by [facility] Assessment Goal: Patient should be free from fall Description: Interventions: 1. [place] to environment 2. Hourly rounds addressing the 4 P's (Pain, Positioning, Possessions, Potty) 3. Clear area of hazards (spills, clutter, electrical cords, unnecessary equipment) 4. Place equipment (bed & TV controls, call light, phone, urinal) within reach 5. Encourage patient to wear glasses and hearing aides as appropriate 6. Maintain bed in lowest position 7. Lock wheels on bed/wheelchair 8. Provide adequate lighting, including night light 9. Assess need for additional bedding, food/fluids, pain med's prior to sleep/routinely 10. Provide gripper slippers or personal non-skid footwear 11. Teach patient and patient real estate representative to maintain environment for safety and engage in all aspects of fall prevention program 12. Remind patient to call for help before getting out of bed 13. Initiate bed/chair/exit alarms supportive devices as appropriate, (chair wedge, no-skid floor mat, raised edge mattress, hip protectors) 14. Locate patient bed assignment for optimal visualization 15. Evaluate and identify Safe Patient Handling Equipment needs 16. Provide supervision when out of bed or chair 17. Utilize gait belt as needed to assist with ambulation 18. Place adaptive equipment (cane, walker) within reach 19. Request patient real estate representative bring adaptive equipment/mobility aids from home or obtain and provide as needed 20. Consult pharmacy regarding effects of med's affecting mobility, cognition, and alternatives 21. Obtain physician order for PT if risk factors associated with mobility are present 22. Obtain physician order for OT as appropriate 23. Utilize diversional activities 24. Educate patient and patient real estate representative how to maintain a safe environment during visitation times (notify nurse prior to leaving bedside) 25. Consider appropriateness of medical or non-medical lab specialist 26. Set up voiding schedule as appropriate (every 2 hours) Outcome: Progressing Note: Evaluation of progress towards goal: Patient will remain free from falls. Room is clear of clutter, non- slip footwear is provided. Will continue to monitor. [facility] 10-23-2024 Plan of care note Problem: Multi-Drug Resistant Organism / Rule-Out Infection Prevention Goal: Prevent transmission of infection Description: INTERVENTIONS 1. Place patient in private room or in room with patient with same disease 2. Discard single-use items 3. Clean reusable equipment between patients 4. Wear gloves for direct and indirect contact with patient or contaminants 5. Change gloves between tasks and procedures 6. Wash hands before and after caring for each patient 7. Wear appropriate personal protective equipment in relation to the indicated isolation type 8. Place appropriate isolation signage on patient's door 9. Provide patient/ patient real estate representative with isolation education. Outcome: Progressing Note: Evaluation of progress towards goal: Hands cleansed in and out of room and gloves worn when administering meds. Problem: Pain Goal: Patient goal is pain score less than 4, able to rest, and participant in treatment plan as appropriate Description: INTERVENTIONS: 1. Encourage patient or legal real estate representative to report early pain and ask for pain medicine when needed 2. Assess pain using appropriate pain scale and include the scale used when documenting 3. Administer analgesics based on type and severity of pain and evaluate response within appropriate time frame 4. Implement non-pharmacological measures as appropriate and evaluate response 5. Consider cultural and social influences on pain and pain management 6. Notify LIP if interventions ineffective or patient reports new pain 7. Monitor vital signs including pulse ox, end-tidal CO2 based on pain intervention 8. Reassess pain per policy 9. Teach patient or legal real estate representative interventions for comforting Outcome: Not Progressing Note: Evaluation of progress towards goal: Pt rating pain 10 (baseline) this am. New fentanyl patch to be applied soon. Problem: Safety Goal: Patient will be injury free during hospitalization Description: INTERVENTIONS: 1. Assess patient's risk for falls and implement fall prevention plan of care per policy 2. Provide and maintain a safe environment 3. Proper use of double Identifiers 4. Medication administration using the 5 rights 5. Hand hygiene 6. Specimens are labeled at the bedside 7. Instruct patient/ patient real estate representative about use of safety devices 8. Include patient/ patient real estate representative in decisions related to safety Outcome: Progressing Note: Evaluation of progress towards goal: Pt injury free this hospitalization. Problem: Moderate - High Risk Fall Score Description: Patiño Fall Score of =/> 25 or indicated by [facility] Assessment Goal: Patient should be free from fall Description: Interventions: 1. [place] to environment 2. Hourly rounds addressing the 4 P's (Pain, Positioning, Possessions, Potty) 3. Clear area of hazards (spills, clutter, electrical cords, unnecessary equipment) 4. Place equipment (bed & TV controls, call light, phone, urinal) within reach 5. Encourage patient to wear glasses and hearing aides as appropriate 6. Maintain bed in lowest position 7. Lock wheels on bed/wheelchair 8. Provide adequate lighting, including night light 9. Assess need for additional bedding, food/fluids, pain med's prior to sleep/routinely 10. Provide gripper slippers or personal non-skid footwear 11. Teach patient and patient real estate representative to maintain environment for safety and engage in all aspects of fall prevention program 12. Remind patient to call for help before getting out of bed 13. Initiate bed/chair/exit alarms supportive devices as appropriate, (chair wedge, no-skid floor mat, raised edge mattress, hip protectors) 14. Locate patient bed assignment for optimal visualization 15. Evaluate and identify Safe Patient Handling Equipment needs 16. Provide supervision when out of bed or chair 17. Utilize gait belt as needed to assist with ambulation 18. Place adaptive equipment (cane, walker) within reach 19. Request patient real estate representative bring adaptive equipment/mobility aids from home or obtain and provide as needed 20. Consult pharmacy regarding effects of med's affecting mobility, cognition, and alternatives 21. Obtain physician order for PT if risk factors associated with mobility are present 22. Obtain physician order for OT as appropriate 23. Utilize diversional activities 24. Educate patient and patient real estate representative how to maintain a safe environment during visitation times (notify nurse prior to leaving bedside) 25. Consider appropriateness of medical or non-medical lab specialist 26. Set up voiding schedule as appropriate (every 2 hours) Outcome: Progressing Note: Evaluation of progress towards goal: Pt free from falls this hospitalization. [facility] 10-23-2024 Progress note Formatting of t his note is different from the original. Physical Therapy PT Type of Visit: Medical deferral (Awaiting ortho consult due to L femur fx) Per chart review, consult placed for Ortho. Will await their determinations before proceeding. [facility] 10-23-2024 History and physical note Images from the original note were not included. [facility] - [facility] [address] [place] [id number] Hospital Medicine History & Physical Patient: Jessica Price Date of : 1960 Room: PCP: LAWANDA GROVE MD Admission date: 10/22/2024 2:01 PM Encounter date: 10/23/24 Hospital Day: 2 SUBJECTIVE Jessica Price is a 64 y.o. male who presents with c/o abnormal lab via EMS. The patient's recent lab work showed a hemoglobin level of less than 6. He also reports falling out of his wheelchair and injuring his left knee. The patient denies any blood in his stool. Has hx of recent GI bleed. There are no other complaints at this time. Labs notable for: RH positive, protime 17.8, Inr 1.6, potassium 5.3, CO2 18, BUN 100, creatinine 4.31, glucose 146, total protein 5.9, albumin 2.3, RBC 2.45, hemoglobin 7.1, hematocrit 21.9, RDW 18.1, eGFR 14, platelets 141, lymphocyte 0.8. XR femur left: Comminuted impacted mildly angulated and displaced distal femoral fracture. Patient be admitted for orthopedic evaluation as well as physical therapy eval. Allergies: Ancef [cefazolin], Iodinated contrast media, Promethazine, and Sulfamethoxazole-trimethoprim Prior to Admission medications Medication Sig Start Date End Date Taking? Authorizing Provider B complex-vitamin C-folic acid (DIALYVITE) 100-1 mg tablet Take 1 tablet by mouth in the morning. 09/08/24 Tereso Leigh MD bumetanide (BUMEX) 2 mg tablet Take 1 tablet (2 mg total) by mouth daily as needed (For increasing leg swelling). 10/14/24 Dory Preston MD cyanocobalamin 1000 MCG tablet Take 1 tablet (1,000 mcg total) by mouth in the morning. 09/09/24 Tereso Leigh MD DAPTOmycin 625 mg in sodium chloride 0.9 % 50 mL IVPB Infuse 625 mg into a venous catheter every other day for 34 days. 10/14/24 11/17/24 Katie Bliss APRN-RADHA fentaNYL (DURAGESIC) 100 mcg/hr Place 1 patch on the skin every third day. Alternating every other placement with 50 mcg patch NOT 150 mcg total Not In System Ref Prov fentaNYL (DURAGESIC) 50 mcg/hr Place 1 patch on the skin every third day. Alternating every other placement with 100 mcg patch NOT 150 mcg total Not In System Ref Prov ferrous sulfate 325 (65 FE) mg tablet Take 1 tablet (325 mg total) by mouth daily with breakfast. 10/15/24 Dory Preston MD fluconazole (DIFLUCAN) 150 mg tablet Take 2 tablets (300 mg total) by mouth in the morning for 34 days. 10/14/24 11/17/24 Dory Preston MD gabapentin (NEURONTIN) 300 mg capsule Take 1 capsule (300 mg total) by mouth once daily at bedtime. Not In System Ref Prov heparin lock flush, porcine, 10 unit/mL injection Infuse 1-5 mL (10-50 Units total) into a venous catheter as needed (line care per nursing agency protocol.). 10/12/24 Domenico Crokcett MD heparin lock flush, porcine, injection 100 unit/mL solution Infuse 1-5 mL (100-500 Units total) into a venous catheter as needed (line care per nursing agency protocol.). 10/12/24 Domenico Crockett MD meropenem 500 mg in sodium chloride 0.9 % 50 mL IVPB MINI-BAG Plus Infuse 500 mg into a venous catheter daily for 34 days. 10/14/24 11/17/24 Katie Bliss APRN-[employer]NESS [employer]LLNESS INSTRUCTOR midodrine (PROAMATINE) 5 mg tablet Take 1 tablet (5 mg total) by mouth 3 (three) times a day as needed (systolic blood pressure <90) for up to 90 days. 09/08/24 12/07/24 Tereso Leigh MD sevelamer (RENVELA) 800 mg tablet Take 2 tablets (1,600 mg total) by mouth in the morning and 2 tablets (1,600 mg total) at noon and 2 tablets (1,600 mg total) in the evening. Take with meals. 10/13/24 Herbert Marie MD sodium chloride injection Infuse 10-20 mL into a venous catheter as needed for line care (line care per nursing agency protocol.). 10/12/24 Domenico Crockett MD tolterodine (DETROL) 1 mg tablet Take 2 tablets (2 mg total) by mouth in the morning and 2 tablets (2 mg total) before bedtime. 06/08/24 Not In System Ref Prov Code Status: Full Code Past Medical History: Patient has a past medical history of Chronic renal failure, stage 4 (severe) ([facility]) and Quadriplegia ([facility]). Past Surgical History: Patient has a past surgical history that includes Esophagogastroduodenoscopy (N/A, 08/30/2024); Esophagogastroduodenoscopy (N/A, 09/02/2024); Spinal fusion; Colon surgery; Bowel resection; Colostomy; Vena cava filter placement (1998); and Wound debridement (Left, 10/07/2024). Family History: Patient's family history is not on file. Social History: Patient reports that he has never smoked. He has never used smokeless tobacco. He reports that he does not drink alcohol and does not use drugs. Review of Systems Review of Systems Respiratory: Negative for shortness of breath. Cardiovascular: Negative for chest pain. Gastrointestinal: Negative for abdominal pain. Musculoskeletal: Positive for arthralgias, gait problem and myalgias. OBJECTIVE BP 106/58 Pulse 94 Temp 37.9 C (100.2 F) (Oral) Resp 18 Ht 182.9 cm (6') Wt 85.3 kg (188 lb) SpO2 93% BMI 25.50 kg/m Temp: [36.9 C (98.4 F)-37.9 C (100.2 F)] 37.9 C (100.2 F) Pulse: [84-100] 94 Resp: [18-20] 18 BP: (73-123)/(42-82) 106/58 SpO2: [93 %-96 %] 93 % O2 Device: None (Room air) O2 Flow Rate (L/min): [0 L/min] 0 L/min Intake/Output Summary (Last 24 hours) at 10/23/2024 1124 Last data filed at 10/23/2024 1030 Gross per 24 hour Intake 893.69 ml Output 1200 ml Net -306.31 ml Physical Exam Physical Exam Constitutional: General: He is not in acute distress. HENT: Mouth/Throat: Mouth: Mucous membranes are moist. Eyes: Conjunctiva/sclera: Conjunctivae normal. Cardiovascular: Rate and Rhythm: Normal rate and regular rhythm. Pulmonary: Effort: Pulmonary effort is normal. Breath sounds: Normal breath sounds. Abdominal: Palpations: Abdomen is soft. Tenderness: There is no abdominal tenderness. Comments: Colostomy in place Genitourinary: Comments: Bond catheter in place. Clear yellow urine in drainage bag Musculoskeletal: Right lower leg: No edema. Left lower leg: No edema. Skin: General: Skin is warm and dry. Coloration: Skin is pale. Comments: Dressing to coccyx and bilateral heels dry and intact Neurological: Mental Status: He is alert. Mental status is at baseline. Motor: Atrophy and abnormal muscle tone present. Comments: Quadriplegia Medications Scheduled: cyanocobalamin, 1,000 mcg, oral, Daily [START ON 10/24/2024] DAPTOmycin (CUBICIN) 625 mg in sodium chloride 0.9 % 50 mL IVPB, 625 mg, intravenous, Q48H fentaNYL, 1 patch, transdermal, Q72H [START ON 10/26/2024] fentaNYL, 1 patch, transdermal, Q72H ferrous sulfate, 325 mg, oral, Daily with breakfast fluconazole, 300 mg, oral, Daily gabapentin, 300 mg, oral, HS heparin (porcine), 5,000 Units, subcutaneous, Q12H SHIKHA insulin regular, 10 Units, intravenous, Once AND dextrose 50 % in water (D50W), 25 g, intravenous, Once PRN AND dextrose 50 % in water (D50W), 50 g, intravenous, Once PRN meropenem (MERREM) 500 mg in sodium chloride 0.9 % 50 mL IVPB-MBP, 500 mg, intravenous, Q24H sevelamer, 1,600 mg, oral, TID with meals trospium, 20 mg, oral, Nightly Infusions: dextrose 5 % in water, 100 mL/hr sodium chloride 0.9 %, 20 mL/hr sodium chloride 0.9 %, 20 mL/hr As Needed: acetaminophen dextrose dextrose 5 % in water insulin regular AND dextrose 50 % in water (D50W) AND dextrose 50 % in water (D50W) dextrose 50 % in water (D50W) glucagon (human recombinant) midodrine ondansetron sodium chloride sodium chloride sodium chloride 0.9 % sodium chloride 0.9 % Allergies: Ancef [cefazolin], Iodinated contrast media, Promethazine, and Sulfamethoxazole-trimethoprim Labs Recent Results (from the past 24 hours) CBC auto differential Collection Time: 10/22/24 2:20 PM Result Value Ref Range White Blood Cells 7.8 4.0 - 11.0 X10E9/L RBC count 2.45 (L) 4.10 - 5.70 X10E12/L Hemoglobin 7.1 (L) 13.0 - 17.0 g/dL Hematocrit 21.9 (L) 39 - 49 % MCV 90 80 - 100 fL MCH 28.9 27 - 34 pg MCHC 32.3 32 - 36 g/dL RDW 18.1 (H) 11.5 - 15.0 % Platelets 141 (L) 150 - 450 X10E9/L MPV 7.9 7 - 12 fL % neutrophils 82.0 % % lymphocytes 9.6 % % monocytes 7.0 % % eosinophils 0.8 % % Basophils 0.6 % Neutrophils Absolute (A) 6.4 1.5 - 6.6 X10E9/L Lymphocytes Absolute 0.8 (L) 1.0 - 3.5 X10E9/L Monocytes Absolute 0.5 0 - 0.9 X10E9/L Eosinophils Absolute 0.1 0.0 - 0.4 X10E9/L Basophils Absolute 0.0 0.0 - 0.2 X10E9/L Protime & INR Collection Time: 10/22/24 2:20 PM Result Value Ref Range Protime 17.8 (H) 9.8 - 13.2 sec Inr 1.6 (H) 0.8 - 1.1 APTT Collection Time: 10/22/24 2:20 PM Result Value Ref Range aPTT 35 26 - 37 sec Comprehensive metabolic panel Collection Time: 10/22/24 2:20 PM Result Value Ref Range Sodium 136 134 - 146 mmol/L Potassium, Bld 5.3 (H) 3.5 - 5.0 mmol/L Chloride 105 98 - 109 mmol/L CO2 18 (L) 22 - 32 mmol/L Anion gap 13 5 - 15 mmol/L BUN 100 (H) 5 - 27 mg/dL Creatinine 4.31 (H) 0.70 - 1.20 mg/dL Glucose 146 (H) 65 - 99 mg/dL Calcium 7.8 (L) 8.5 - 10.5 mg/dL Total Protein 5.9 (L) 6.0 - 8.0 g/dL Albumin 2.3 (L) 3.2 - 5.3 g/dL Alkaline Phosphatase 69 39 - 130 U/L AST 20 0 - 41 U/L ALT 14 0 - 40 U/L Total bilirubin 0.6 0.3 - 1.2 mg/dL eGFR (CKD-EPI)non-race dependent 14 (L) >59 ml/min/1.73sq.m Type and screen(includes indirect valerie) Collection Time: 10/22/24 2:30 PM Result Value Ref Range ABO O RH Positive Antibody Screen Positive ABO Rh Repeat Collection Time: 10/22/24 2:30 PM Result Value Ref Range ABO O RH Positive Antibody ID Collection Time: 10/22/24 2:30 PM Result Value Ref Range Antibody ID No new antibodies Comprehensive metabolic panel Collection Time: 10/23/24 5:46 AM Result Value Ref Range Sodium 137 134 - 146 mmol/L Potassium, Bld 5.3 (H) 3.5 - 5.0 mmol/L Chloride 106 98 - 109 mmol/L CO2 17 (L) 22 - 32 mmol/L Anion gap 14 5 - 15 mmol/L BUN 98 (H) 5 - 27 mg/dL Creatinine 4.32 (H) 0.70 - 1.20 mg/dL Glucose 120 (H) 65 - 99 mg/dL Calcium 7.8 (L) 8.5 - 10.5 mg/dL Total Protein 5.4 (L) 6.0 - 8.0 g/dL Albumin 2.2 (L) 3.2 - 5.3 g/dL Alkaline Phosphatase 61 39 - 130 U/L AST 16 0 - 41 U/L ALT 11 0 - 40 U/L Total bilirubin 0.6 0.3 - 1.2 mg/dL eGFR (CKD-EPI)non-race dependent 14 (L) >59 ml/min/1.73sq.m Magnesium Collection Time: 10/23/24 5:46 AM Result Value Ref Range Magnesium 1.7 (L) 1.8 - 2.6 mg/dL CBC auto differential Collection Time: 10/23/24 5:46 AM Result Value Ref Range White Blood Cells 7.1 4.0 - 11.0 X10E9/L RBC count 2.13 (L) 4.10 - 5.70 X10E12/L Hemoglobin 6.1 (LL) 13.0 - 17.0 g/dL Hematocrit 19.0 (L) 39 - 49 % MCV 89 80 - 100 fL MCH 28.8 27 - 34 pg MCHC 32.3 32 - 36 g/dL RDW 17.5 (H) 11.5 - 15.0 % Platelets 133 (L) 150 - 450 X10E9/L MPV 8.0 7 - 12 fL % neutrophils 77.9 % % lymphocytes 8.7 % % monocytes 9.7 % % eosinophils 3.1 % % Basophils 0.6 % Neutrophils Absolute (A) 5.5 1.5 - 6.6 X10E9/L Lymphocytes Absolute 0.6 (L) 1.0 - 3.5 X10E9/L Monocytes Absolute 0.7 0 - 0.9 X10E9/L Eosinophils Absolute 0.2 0.0 - 0.4 X10E9/L Basophils Absolute 0.0 0.0 - 0.2 X10E9/L Radiology X-ray femur left 2+ views Result Date: 10/22/2024 Narrative: XR FEMUR LT 2+ VIEWS Clinical history:trauma and deformity acute leg pain. Comparison: None. Impression: Comminuted impacted mildly angulated and displaced distal femoral fracture. Diffuse osteopenia and demineralization. No definitive proximal injury. The proximal femur and hip are not fully visualized on the provided imaging. Finalized by Morgan Steele MD on 10/22/2024 3:03 PM X-ray knee left 3 views Result Date: 10/22/2024 Narrative: History: Pain/hematuria. Chronic renal disease.. Quadriplegia Study: Left Knee Three view study. Comparison: None Impression: Comminuted distal femoral fracture is appreciated. Severe osteoporosis is noted. More chronic appearing deformity in the proximal tibia. Follow-up with orthopedics is advised.. 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 Procedure: 1. Ultrasound-guided access into a vein as below. 2. Fluoroscopically guided tunneled hemodialysis catheter placement. Radiologist: Dr. Izquierdo Anesthesia: Continuous monitoring was provided by independent qualified radiology nursing personnel under physician supervision. Medications: 100 mcg of fentanyl Contrast: None Fluoroscopy time: 0.4 minutes Reference air Kerma: 3 mGy Complications None. Conscious sedation time: None Technique: Risks, benefits, and alternatives were discussed. All questions were answered and informed consent was obtained. Automated radiation exposure lowering techniques were utilized. Hand hygiene performed. The neck and chest were prepped and draped in the appropriate sterile fashion. A initial ultrasound of the neck demonstrated a patent, compressible vein free of clot suitable for access. A permanent ultrasound image was obtained. Under ultrasound guidance, a micropuncture needle was advanced into the vein. Nonpulsatile blood was noted. An 018 wire was advanced appropriately to confirm venous placement and the needle exchanged for the micropuncture dilator set. Attention was then turned to creation of the tunnel. The skin exit site was chosen. Local anesthesia was instilled and a skin wero made. Local anesthesia was administered into the tunnel. The catheter was tunneled to the neck access site. The micropuncture set was upsized over an 035 Amplatz to a peel-away sheath. The tip of the catheter was then passed through the peel-away sheath after wire removal. A final AP image of the chest demonstrated tip of the catheter to reside at the cava atrial junction. The catheter genevieve and flushed easily. A cap was placed. 2-0 silk suture was used to secure the catheter at the skin exit site. Skin glue was used at the neck access site. Sterile dressings were placed at the skin exit site. Patient left the angiography suite in stable condition. Impression: Status post placement of a right internal jugular vein single lumen 5 Austrian by 19 cm tip to cuff tunneled central venous catheter. The catheter is okay to use. Finalized by Juana Izquierdo MD on 10/13/2024 5:39 PM MR ankle right without contrast Result Date: 10/08/2024 Narrative: MR RIGHT ANKLE CLINICAL INFORMATION: Pain. COMPARISON: None. PROCEDURE: Routine MRI of the ankle performed. Multisequence, multiplanar imaging was obtained. FINDINGS: OSSEOUS STRUCTURES AND JOINTS Bones: No acute bone marrow signal abnormality in the ankle region. Tibiotalar joint: Small joint effusion. Chondral thinning. No osteochondral injury. Subtalar joint: No focal abnormality. Tarsal joints: Within normal limits. SOFT TISSUES Muscles: No gross muscular abnormality. Tarsal tunnel: Normal. Sinus tarsi: Normal. Plantar fascia: No gross abnormality. Intact aponeurotic attachment. There is abnormal signal within the subcutaneous and cutaneous signals of the plantar aspect of the heel and along the lateral aspect of the ankle region. Subcutaneous heterogeneity is present compatible with edema. TENDONS Achilles tendon: Normal distally. Posterior tibial tendon: Normal. Flexor digitorum longus tendon: Normal. Flexor hallucis longus: Normal. Peroneus longus tendon: Normal. Peroneus brevis tendon: Normal. Peroneal retinaculum: Normal. Anterior tibial tendon: Normal. Extensor hallucis longus: Normal. Extensor digitorum longus: Normal. LIGAMENTS Anterior inferior tibiofibular (syndesmotic) ligament: Normal. Posterior inferior tibiofibular (syndesmotic) ligament: Normal. Anterior talofibular ligament: Normal. Posterior talofibular ligament: Normal. Calcaneofibular ligament: Normal. Deltoid ligament complex (superficial): Normal. Deltoid ligament complex (deep): Normal. Spring ligament: Within normal limits. IMPRESSION: 1. Cutaneous and subcutaneous irregularity along the dorsal aspect of the ankle and in the plantar aspect of the heel compatible with edema/cellulitis. No abscess or focal abnormality evident. 2. No osseous abnormality within the ankle region. 3. No gross ligamentous or musculotendinous injury. Finalized by Jeremías Vegas MD on 10/08/2024 1:31 PM Vas art doppler lwr bilat mult lev/PVR Result Date: 10/07/2024 Narrative: Right: Essentially normal PVR waveform contour at all levels. No calf waveform augmentation noted. PT SHANTA is 0.92; DP SHANTA is 1.00. Multiphasic with diastolic flow reversal PT and DP, CW Doppler waveforms. Left: Essentially normal PVR waveform contour at all levels. No calf waveform augmentation noted. PT SHANTA is 0.96; DP SHANTA is 0.92. Multiphasic with diastolic flow reversal PT and DP, CW Doppler waveforms. General: Brachial pressures could not be performed due to patient positioning difficulties. Conclusions: BILATERAL:Normal lower extremity SHANTA at rest. Unable to obtain left brachial pressure due to patient positioning. Recommendations: Any questions prior to finalization, please call the reading physician during normal business hours at the phone number beside their name. Vas art duplex lwr bilateral Result Date: 10/06/2024 Narrative: Right: Plaque and spectral waveforms with diastolic flow reversal noted in the external iliac, common femoral, deep femoral, superficial femoral, popliteal, peroneal, posterior and anterior tibial artery without significant color flow disturbance. Left: Plaque with multiphasic waveforms and diastolic flow reversal in the common femoral, deep femoral, proximal thru mid superficial femoral and anterior tibial artery. Low resistive and hyperemic distal SFA waveforms. Monophasic popliteal, posterior tibial and peroneal artery waveforms. General: In-patient, bedside examination. Conclusions: BILATERAL: Arterial plaque with no hemodynamically significant stenosis of the lower extremity. Recommendations: Any questions prior to finalization, please call the reading physician during normal business hours at the phone number beside their name. EEG Video Monitoring Daily Result Date: 10/05/2024 Narrative: Images from the original result were not included. [employer] EEG Report EEG Service Date: 10/05/2024 06:00 until 10/04/2026 11:07. Day 3 of recording Date of Report: 10/05/2024 History: 63 year old man with concern for seizures Medications: Fentanyl Technique: This EEG was acquired with electrodes placed according to the 10-20 electrode placement system. A single EKG channel was recorded for cardiac rhythm monitoring. Video was recorded simultaneously. The quality of recording was good. The entire EEG study along with video for selected events was reviewed. EEG Classification: Abnormal I State of Consciousness: Awake and asleep EEG Findings: 1.) Dominant Rhythm: A PDR of up to 6 Hz was seen 2.) Background: The background was slow, with a PDR of up to 6 Hz. Reactivity to external stimuli was appreciated. Slow wave stage N3 sleep was seen often. EKG artifact was seen at times. 3.) There is continuous slow, generalized, underlying delta > theta waves, seen throughout the recording. 4.) HR 60-62 BPM, regular Impression: This vEEG is indicative of mild to moderate diffuse encephalopathy. No epileptiform discharges or lateralizing signs were seen. In comparison with yesterday's recording, there is no significant change. Court De Los Santos MD [employer] [facility] EEG Video Monitoring Daily Result Date: 10/05/2024 Narrative: Images from the original result were not included. [employer] EEG Report EEG Service Date: 10/04/2024 06:00 until 10/04/2026 23:02. Day 2 of recording Date of Report: 10/05/2024 History: 63 year old man with concern for seizures Medications: Fentanyl Technique: This EEG was acquired with electrodes placed according to the 10-20 electrode placement system. A single EKG channel was recorded for cardiac rhythm monitoring. Video was recorded simultaneously. The quality of recording was good. The entire EEG study along with video for selected events was reviewed. EEG Classification: Abnormal I State of Consciousness: Awake and asleep EEG Findings: 1.) Dominant Rhythm: A PDR of up to 6 Hz was seen 2.) Background: The background was slow, with a PDR of up to 6 Hz. Reactivity to external stimuli was appreciated. Slow wave stage N3 sleep was seen often. EKG artifact was seen throughout the recording. 3.) There is continuous slow, generalized, underlying delta > theta waves, seen throughout the recording. 4.) HR 60-64 BPM, regular Impression: This vEEG is indicative of mild to moderate diffuse encephalopathy. No epileptiform discharges or lateralizing signs were seen. In comparison with yesterday's recording, there is a slight improvement due to a decrease in the degree of encephalopathy. Court De Los Santos MD [employer] [facility] EEG Video Monitoring Daily Result Date: 10/05/2024 Narrative: Images from the original result were not included. [employer] EEG Report EEG Service Date: 10/04/2024 00:12 until 10/04/2026 06:00. Day 1 of recording Date of Report: 10/04/2024 History: 63 year old man with concern for seizures Medications: Fentanyl Technique: This EEG was acquired with electrodes placed according to the 10-20 electrode placement system. A single EKG channel was recorded for cardiac rhythm monitoring. Video was recorded simultaneously. The quality of recording was good. The entire EEG study along with video for selected events was reviewed. EEG Classification: Abnormal II State of Consciousness: Stupor EEG Findings: 1.) Dominant Rhythm: No clear PDR was seen 2.) Background: The background was slow, without a PDR. Reactivity to external stimuli was appreciated. No progressive sleep stages were seen. Of note, EMG artifact was seen often during the recording. 3.) There is continuous slow, generalized, underlying delta > theta waves, seen throughout the recording. 4.) HR 60-64 BPM, regular Impression: This vEEG is indicative of moderate diffuse encephalopathy. No epileptiform discharges or lateralizing signs were seen. EMG artifact was seen throughout the recording. 10 uV Sensitivity, EMG artifact Court De Los Santos MD [employer] [facility] Baseline Routine EEG Result Date: 10/04/2024 Narrative: Images from the original result were not included. SD Routine EEG Report Length of Study: 30 minutes EEG Service Date: 10/03/2024 History: 63 year old man with concern for seizures Medications: Fentanyl Technique: This EEG was acquired with electrodes placed according to the 10-20 electrode placement system. A single EKG channel was recorded for cardiac rhythm monitoring. The quality of recording was good. EEG Classification: Abnormal II State of Consciousness: Stupor EEG Findings: 1.) Dominant Rhythm: No clear PDR was seen 2.) Background: The background was slow, without a PDR. Reactivity to external stimuli was appreciated. No progressive sleep stages were seen. 3.) Activating procedures: Hyperventilation was not performed. Photic stimulation was performed, but did not produce significant changes. 4.) There is continuous slow, generalized, underlying delta > theta waves, seen throughout the recording. 5.) HR 64-68 BPM, regular Impression: This EEG is indicative of moderate diffuse encephalopathy. No epileptiform discharges or lateralizing signs were seen. Court De Los Santos MD [employer] [facility] CT brain without contrast Result Date: 10/03/2024 Narrative: History: Transient alteration of awareness Technique: Contiguous axial images through the brain were obtained without the administration of intravenous contrast material. Automated exposure control was utilized. Comparison: 09/28/2024 Findings: The ventricles are normal in size. There is no evidence of midline shift. There are no areas of abnormal density to suggest presence of acute major vessel infarct, mass lesion, or hemorrhage. The visualized osseous structures are intact. Impression: Normal CT brain. All CT scans at this facility use dose modulation, iterative reconstruction, and/or weight based dosing when appropriate to reduce radiation dose to as low as reasonably achievable. Finalized by Magy Gutierres MD on 10/03/2024 11:03 PM X-ray chest 1 view Result Date: 10/03/2024 Narrative: EXAM: Chest, one view REASON FOR EXAM: dyspnea TECHNIQUE: Single AP view of the chest COMPARISON: 09/29/2024, 09/28/2024 FINDINGS: Right neck central line terminates projecting over the expected location of the SVC. The trachea is midline. Cardiomediastinal silhouette is prominent, enhanced by AP technique. There are questioned left retrocardiac air bronchograms. Possible small left pleural effusion. IMPRESSION: Possible left retrocardiac pulmonary infiltrate. Likely small left pleural effusion. Finalized by Sabina Garcia MD on 10/03/2024 9:58 PM MR ankle left without contrast Result Date: 10/03/2024 Narrative: History: Osteomyelitis suspected, ankle, xray done Wound left heel Comparison left calcaneus x-rays from October 01 PROCEDURE: Multiplanar multisequence images performed the left ankle MR ANKLE LT WO CONT Multiplanar multisequence MR imaging performed through the ankle. Findings: Extensive edema within the calcaneus consistent with osteomyelitis at its posterior aspect. Mild reactive retrocalcaneobursitis and periostitis along the plantar aspect of the calcaneus Moderate reactive effusion tibiotalar and subtalar joint Extensive soft tissue swelling of the subcutaneous tissues along the lateral dorsum of the foot which could be edema and/or cellulitis. No well-defined abscess Mild arthritic findings of the intertarsal articulations Plantar fascia unremarkable. The Achilles tendon, the peroneal tendons, and the tendons of the tarsal tunnel are unremarkable. The deltoid ligaments, talofibular ligaments, and calcaneofibular ligaments are unremarkable. The sinus tarsi is unremarkable. Angle of Gissane is unremarkable. The talar dome, tibiotalar joint, and subtalar joint are otherwise unremarkable Lisfranc ligament intact IMPRESSION: Extensive edema within the calcaneus consistent with osteomyelitis at its posterior aspect. Mild reactive retrocalcaneal bursitis and periostitis along the plantar aspect of the calcaneus Moderate reactive effusion tibiotalar and subtalar joint Extensive soft tissue swelling of the subcutaneous tissues along the lateral dorsum of the foot which could be edema and/or cellulitis. No well-defined abscess Mild arthritic findings of the intertarsal articulations Finalized by Rigoberto Mobley MD on 10/03/2024 8:51 PM X-ray calcaneus left minimun 2 views Result Date: 10/02/2024 Narrative: History: Evaluate for osteomyelitis. Exam/Technique: AP and Hale view of the calcaneus. Comparison: 09/07/2024. Findings: Marked osteopenia. Marked soft tissue swelling of the midfoot. No emphysematous changes. Significant remodeling of the hindfoot articulations with likely degenerative changes. No destructive changes of the calcaneus. IMPRESSION: No destructive changes of the calcaneus or the talocalcaneal articulation. Marked soft tissue edema and swelling. Finalized by Sree Weber MD on 10/02/2024 1:03 AM X-ray chest 1 view Result Date: 09/29/2024 Narrative: HISTORY: Central line placement COMPARISON: Chest x-ray 09/28/2024 FINDINGS: Portable AP upright view of the chest was performed. Right jugular venous catheter tip overlies the SVC. Cardiac silhouette is enlarged but stable. Left basilar airspace disease. No significant vascular congestion, pleural effusion or pneumothorax. Partially visualized cervical fusion hardware. IMPRESSION: * Appropriately positioned right jugular venous catheter. * Left basilar atelectasis versus pneumonia. Finalized by Quincy Newell MD on 09/29/2024 10:19 AM X-ray chest 1 view Result Date: 09/28/2024 Narrative: XR CHEST 1 VW 09/28/2024 10:45 PM INDICATION: Chest pain COMPARISON: Priors dating back to 08/23/2024 TECHNIQUE: AP portable upright view the chest was obtained. FINDINGS: Left basilar patchy opacity. There is no pneumothorax. Similar mild blunting of the right costophrenic angle.. The cardiomediastinal silhouette is unremarkable. No acute osseous abnormalities. IMPRESSION: Left basilar patchy opacity, nonspecific possibly related to pneumonia in the appropriate clinical setting. Finalized by Morgan Horvath on 09/28/2024 11:18 PM HOSPITAL PROBLEM LIST Principal Problem: Closed displaced comminuted fracture of shaft of left femur, [place] Active Problems: Pressure injury of deep tissue of right heel Pressure injury of left heel, stage 4 ([facility]) Pressure injury of sacral region, stage 3 ([facility]) Quadriplegia, C1-C4, complete ([facility]) Subacute osteomyelitis of left foot [place] Stage 5 chronic kidney disease not on chronic dialysis [place] Iron deficiency anemia secondary to inadequate dietary iron intake Hyperkalemia ASSESSMENT & PLAN Closed fracture left femur: Orthopedic surgery consult. Likely not candidate for surgical intervention. Appreciate Orthopedic input. If patient would need surgical intervention, would have to transfer to higher level of care. Quadriplegia: Supportive care. Offloading of pressure points. Subacute osteomyelitis: Previously seen at [facility] and was discharged with IV antibiotics in the outpatient setting. Antibiotics to be continued until November 17. Will resume/continue outpatient IV antibiotics while admitted. No coverage for infectious disease. If any issues with antibiotics, will need transferred for infectious disease input. CKD 5: Patient did see Nephrology group at [place] and patient was not candidate for dialysis. Monitor kidney function daily. Iron-deficiency anemia: Hemoglobin 7.1 on admission. Down to 6.1 today. 1 unit packed red blood cells ordered. Awaiting blood to be delivered. No overt signs of bleeding. Hyperkalemia: Insulin and glucose ordered. Monitor potassium q.4 hours x2. Pressure injuries: Wound team consulted. Nutrition consult. Admission orders placed and home medications reconciled. DVT prophylaxis: EPC's and no pharmacological intervention secondary to anemia requiring blood transfusion. GI prophylaxis. Protonix PT/OT to evaluate and treat. DC planning: Coarse pending. Plan to transfuse packed red blood cells and monitor response. Appreciate Orthopedic input about femur fracture. JUDITH Serrato, 10/23/2024 11:24 AM [facility] Internal Medicine 7AM-7PM (all facilities): [employer] or page through [employer]. 7PM-7AM ([facility], [facility]): [employer] or page, [phone]. 7PM-7AM ([facility] and [facility]): [employer] or page through [employer]. This note is dictated with the use of M*Modal. Please note that this dictation was completed with computer voice recognition software. Quite often unanticipated grammatical, syntax, homophones, and other interpretive errors are inadvertently transcribed by the computer software. Please disregard these errors. Please excuse any errors that have escaped final proofreading. JUDITH Serrato Physician Attestation: I have reviewed the above note authored by the Advance Practice Provider (KADEEM) including history, review of systems, physical examination, medical decision making and agree with the assessment & plan. I have personally performed a face to face diagnostic evaluation on this patient. I have reviewed all laboratory findings and imaging reports/films. I have independently evaluated the patient and repeated beard portions of the physical exam. I agree with the KADEEM plan as above, unless otherwise noted. HOMER DUBOSE MD Had over 30 mins of discuss about Goals of care. Introduced DNR CCA/DNI. and patient at bedside. Will consider and review tomorrow. [facility] 10-23-2024 History and physical note Images from the original note were not included. [facility] MEDICINE [facility] [address] [facility] [id number] Hospital Medicine History & Physical Patient: Jessica Price Date of : 1960 Room: [facility] PCP: LAWANDA GROVE MD Admission date: 10/22/2024 2:01 PM Encounter date: 10/23/24 Hospital Day: 2 SUBJECTIVE Jessica Price is a 64 y.o. male who presents with c/o abnormal lab via EMS. The patient's recent lab work showed a hemoglobin level of less than 6. He also reports falling out of his wheelchair and injuring his left knee. The patient denies any blood in his stool. Has hx of recent GI bleed. There are no other complaints at this time. Labs notable for: RH positive, protime 17.8, Inr 1.6, potassium 5.3, CO2 18, BUN 100, creatinine 4.31, glucose 146, total protein 5.9, albumin 2.3, RBC 2.45, hemoglobin 7.1, hematocrit 21.9, RDW 18.1, eGFR 14, platelets 141, lymphocyte 0.8. XR femur left: Comminuted impacted mildly angulated and displaced distal femoral fracture. Patient be admitted for orthopedic evaluation as well as physical therapy eval. Allergies: Ancef [cefazolin], Iodinated contrast media, Promethazine, and Sulfamethoxazole-trimethoprim Prior to Admission medications Medication Sig Start Date End Date Taking? Authorizing Provider B complex-vitamin C-folic acid (DIALYVITE) 100-1 mg tablet Take 1 tablet by mouth in the morning. 09/08/24 Tereso Leigh MD bumetanide (BUMEX) 2 mg tablet Take 1 tablet (2 mg total) by mouth daily as needed (For increasing leg swelling). 10/14/24 Dory Preston MD cyanocobalamin 1000 MCG tablet Take 1 tablet (1,000 mcg total) by mouth in the morning. 09/09/24 Tereso Leigh MD DAPTOmycin 625 mg in sodium chloride 0.9 % 50 mL IVPB Infuse 625 mg into a venous catheter every other day for 34 days. 10/14/24 11/17/24 JUDITH Llamas fentaNYL (DURAGESIC) 100 mcg/hr Place 1 patch on the skin every third day. Alternating every other placement with 50 mcg patch NOT 150 mcg total Not In System Ref Prov fentaNYL (DURAGESIC) 50 mcg/hr Place 1 patch on the skin every third day. Alternating every other placement with 100 mcg patch NOT 150 mcg total Not In System Ref Prov ferrous sulfate 325 (65 FE) mg tablet Take 1 tablet (325 mg total) by mouth daily with breakfast. 10/15/24 Dory Preston MD fluconazole (DIFLUCAN) 150 mg tablet Take 2 tablets (300 mg total) by mouth in the morning for 34 days. 10/14/24 11/17/24 Dory Preston MD gabapentin (NEURONTIN) 300 mg capsule Take 1 capsule (300 mg total) by mouth once daily at bedtime. Not In System Ref Prov heparin lock flush, porcine, 10 unit/mL injection Infuse 1-5 mL (10-50 Units total) into a venous catheter as needed (line care per nursing agency protocol.). 10/12/24 Domenico Crockett MD heparin lock flush, porcine, injection 100 unit/mL solution Infuse 1-5 mL (100-500 Units total) into a venous catheter as needed (line care per nursing agency protocol.). 10/12/24 Domenico Crockett MD meropenem 500 mg in sodium chloride 0.9 % 50 mL IVPB MINI-BAG Plus Infuse 500 mg into a venous catheter daily for 34 days. 10/14/24 11/17/24 JUDITH Llamas midodrine (PROAMATINE) 5 mg tablet Take 1 tablet (5 mg total) by mouth 3 (three) times a day as needed (systolic blood pressure <90) for up to 90 days. 09/08/24 12/07/24 Tereso Leigh MD sevelamer (RENVELA) 800 mg tablet Take 2 tablets (1,600 mg total) by mouth in the morning and 2 tablets (1,600 mg total) at noon and 2 tablets (1,600 mg total) in the evening. Take with meals. 10/13/24 Herbert Marie MD sodium chloride injection Infuse 10-20 mL into a venous catheter as needed for line care (line care per nursing agency protocol.). 10/12/24 Domenico Crockett MD tolterodine (DETROL) 1 mg tablet Take 2 tablets (2 mg total) by mouth in the morning and 2 tablets (2 mg total) before bedtime. 06/08/24 Not In System Ref Prov Code Status: Full Code Past Medical History: Patient has a past medical history of Chronic renal failure, stage 4 (severe) ([facility]) and Quadriplegia ([facility]). Past Surgical History: Patient has a past surgical history that includes Esophagogastroduodenoscopy (N/A, 08/30/2024); Esophagogastroduodenoscopy (N/A, 09/02/2024); Spinal fusion; Colon surgery; Bowel resection; Colostomy; Vena cava filter placement (1998); and Wound debridement (Left, 10/07/2024). Family History: Patient's family history is not on file. Social History: Patient reports that he has never smoked. He has never used smokeless tobacco. He reports that he does not drink alcohol and does not use drugs. Review of Systems Review of Systems Respiratory: Negative for shortness of breath. Cardiovascular: Negative for chest pain. Gastrointestinal: Negative for abdominal pain. Musculoskeletal: Positive for arthralgias, gait problem and myalgias. OBJECTIVE BP 106/58 Pulse 94 Temp 37.9 C (100.2 F) (Oral) Resp 18 Ht 182.9 cm (6') Wt 85.3 kg (188 lb) SpO2 93% BMI 25.50 kg/m Temp: [36.9 C (98.4 F)-37.9 C (100.2 F)] 37.9 C (100.2 F) Pulse: [84-100] 94 Resp: [18-20] 18 BP: (73-123)/(42-82) 106/58 SpO2: [93 %-96 %] 93 % O2 Device: None (Room air) O2 Flow Rate (L/min): [0 L/min] 0 L/min Intake/Output Summary (Last 24 hours) at 10/23/2024 1124 Last data filed at 10/23/2024 1030 Gross per 24 hour Intake 893.69 ml Output 1200 ml Net -306.31 ml Physical Exam Physical Exam Constitutional: General: He is not in acute distress. HENT: Mouth/Throat: Mouth: Mucous membranes are moist. Eyes: Conjunctiva/sclera: Conjunctivae normal. Cardiovascular: Rate and Rhythm: Normal rate and regular rhythm. Pulmonary: Effort: Pulmonary effort is normal. Breath sounds: Normal breath sounds. Abdominal: Palpations: Abdomen is soft. Tenderness: There is no abdominal tenderness. Comments: Colostomy in place Genitourinary: Comments: Bond catheter in place. Clear yellow urine in drainage bag Musculoskeletal: Right lower leg: No edema. Left lower leg: No edema. Skin: General: Skin is warm and dry. Coloration: Skin is pale. Comments: Dressing to coccyx and bilateral heels dry and intact Neurological: Mental Status: He is alert. Mental status is at baseline. Motor: Atrophy and abnormal muscle tone present. Comments: Quadriplegia Medications Scheduled: cyanocobalamin, 1,000 mcg, oral, Daily [START ON 10/24/2024] DAPTOmycin (CUBICIN) 625 mg in sodium chloride 0.9 % 50 mL IVPB, 625 mg, intravenous, Q48H fentaNYL, 1 patch, transdermal, Q72H [START ON 10/26/2024] fentaNYL, 1 patch, transdermal, Q72H ferrous sulfate, 325 mg, oral, Daily with breakfast fluconazole, 300 mg, oral, Daily gabapentin, 300 mg, oral, HS heparin (porcine), 5,000 Units, subcutaneous, Q12H SHIKHA insulin regular, 10 Units, intravenous, Once AND dextrose 50 % in water (D50W), 25 g, intravenous, Once PRN AND dextrose 50 % in water (D50W), 50 g, intravenous, Once PRN meropenem (MERREM) 500 mg in sodium chloride 0.9 % 50 mL IVPB-MBP, 500 mg, intravenous, Q24H sevelamer, 1,600 mg, oral, TID with meals trospium, 20 mg, oral, Nightly Infusions: dextrose 5 % in water, 100 mL/hr sodium chloride 0.9 %, 20 mL/hr sodium chloride 0.9 %, 20 mL/hr As Needed: acetaminophen dextrose dextrose 5 % in water insulin regular AND dextrose 50 % in water (D50W) AND dextrose 50 % in water (D50W) dextrose 50 % in water (D50W) glucagon (human recombinant) midodrine ondansetron sodium chloride sodium chloride sodium chloride 0.9 % sodium chloride 0.9 % Allergies: Ancef [cefazolin], Iodinated contrast media, Promethazine, and Sulfamethoxazole-trimethoprim Labs Recent Results (from the past 24 hours) CBC auto differential Collection Time: 10/22/24 2:20 PM Result Value Ref Range White Blood Cells 7.8 4.0 - 11.0 X10E9/L RBC count 2.45 (L) 4.10 - 5.70 X10E12/L Hemoglobin 7.1 (L) 13.0 - 17.0 g/dL Hematocrit 21.9 (L) 39 - 49 % MCV 90 80 - 100 fL MCH 28.9 27 - 34 pg MCHC 32.3 32 - 36 g/dL RDW 18.1 (H) 11.5 - 15.0 % Platelets 141 (L) 150 - 450 X10E9/L MPV 7.9 7 - 12 fL % neutrophils 82.0 % % lymphocytes 9.6 % % monocytes 7.0 % % eosinophils 0.8 % % Basophils 0.6 % Neutrophils Absolute (A) 6.4 1.5 - 6.6 X10E9/L Lymphocytes Absolute 0.8 (L) 1.0 - 3.5 X10E9/L Monocytes Absolute 0.5 0 - 0.9 X10E9/L Eosinophils Absolute 0.1 0.0 - 0.4 X10E9/L Basophils Absolute 0.0 0.0 - 0.2 X10E9/L Protime & INR Collection Time: 10/22/24 2:20 PM Result Value Ref Range Protime 17.8 (H) 9.8 - 13.2 sec Inr 1.6 (H) 0.8 - 1.1 APTT Collection Time: 10/22/24 2:20 PM Result Value Ref Range aPTT 35 26 - 37 sec Comprehensive metabolic panel Collection Time: 10/22/24 2:20 PM Result Value Ref Range Sodium 136 134 - 146 mmol/L Potassium, Bld 5.3 (H) 3.5 - 5.0 mmol/L Chloride 105 98 - 109 mmol/L CO2 18 (L) 22 - 32 mmol/L Anion gap 13 5 - 15 mmol/L BUN 100 (H) 5 - 27 mg/dL Creatinine 4.31 (H) 0.70 - 1.20 mg/dL Glucose 146 (H) 65 - 99 mg/dL Calcium 7.8 (L) 8.5 - 10.5 mg/dL Total Protein 5.9 (L) 6.0 - 8.0 g/dL Albumin 2.3 (L) 3.2 - 5.3 g/dL Alkaline Phosphatase 69 39 - 130 U/L AST 20 0 - 41 U/L ALT 14 0 - 40 U/L Total bilirubin 0.6 0.3 - 1.2 mg/dL eGFR (CKD-EPI)non-race dependent 14 (L) >59 ml/min/1.73sq.m Type and screen(includes indirect valerie) Collection Time: 10/22/24 2:30 PM Result Value Ref Range ABO O RH Positive Antibody Screen Positive ABO Rh Repeat Collection Time: 10/22/24 2:30 PM Result Value Ref Range ABO O RH Positive Antibody ID Collection Time: 10/22/24 2:30 PM Result Value Ref Range Antibody ID No new antibodies Comprehensive metabolic panel Collection Time: 10/23/24 5:46 AM Result Value Ref Range Sodium 137 134 - 146 mmol/L Potassium, Bld 5.3 (H) 3.5 - 5.0 mmol/L Chloride 106 98 - 109 mmol/L CO2 17 (L) 22 - 32 mmol/L Anion gap 14 5 - 15 mmol/L BUN 98 (H) 5 - 27 mg/dL Creatinine 4.32 (H) 0.70 - 1.20 mg/dL Glucose 120 (H) 65 - 99 mg/dL Calcium 7.8 (L) 8.5 - 10.5 mg/dL Total Protein 5.4 (L) 6.0 - 8.0 g/dL Albumin 2.2 (L) 3.2 - 5.3 g/dL Alkaline Phosphatase 61 39 - 130 U/L AST 16 0 - 41 U/L ALT 11 0 - 40 U/L Total bilirubin 0.6 0.3 - 1.2 mg/dL eGFR (CKD-EPI)non-race dependent 14 (L) >59 ml/min/1.73sq.m Magnesium Collection Time: 10/23/24 5:46 AM Result Value Ref Range Magnesium 1.7 (L) 1.8 - 2.6 mg/dL CBC auto differential Collection Time: 10/23/24 5:46 AM Result Value Ref Range White Blood Cells 7.1 4.0 - 11.0 X10E9/L RBC count 2.13 (L) 4.10 - 5.70 X10E12/L Hemoglobin 6.1 (LL) 13.0 - 17.0 g/dL Hematocrit 19.0 (L) 39 - 49 % MCV 89 80 - 100 fL MCH 28.8 27 - 34 pg MCHC 32.3 32 - 36 g/dL RDW 17.5 (H) 11.5 - 15.0 % Platelets 133 (L) 150 - 450 X10E9/L MPV 8.0 7 - 12 fL % neutrophils 77.9 % % lymphocytes 8.7 % % monocytes 9.7 % % eosinophils 3.1 % % Basophils 0.6 % Neutrophils Absolute (A) 5.5 1.5 - 6.6 X10E9/L Lymphocytes Absolute 0.6 (L) 1.0 - 3.5 X10E9/L Monocytes Absolute 0.7 0 - 0.9 X10E9/L Eosinophils Absolute 0.2 0.0 - 0.4 X10E9/L Basophils Absolute 0.0 0.0 - 0.2 X10E9/L Radiology X-ray femur left 2+ views Result Date: 10/22/2024 Narrative: XR FEMUR LT 2+ VIEWS Clinical history:trauma and deformity acute leg pain. Comparison: None. Impression: Comminuted impacted mildly angulated and displaced distal femoral fracture. Diffuse osteopenia and demineralization. No definitive proximal injury. The proximal femur and hip are not fully visualized on the provided imaging. Finalized by Morgan Steele MD on 10/22/2024 3:03 PM X-ray knee left 3 views Result Date: 10/22/2024 Narrative: History: Pain/hematuria. Chronic renal disease.. Quadriplegia Study: Left Knee Three view study. Comparison: None Impression: Comminuted distal femoral fracture is appreciated. Severe osteoporosis is noted. More chronic appearing deformity in the proximal tibia. Follow-up with orthopedics is advised.. 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 Procedure: 1. Ultrasound-guided access into a vein as below. 2. Fluoroscopically guided tunneled hemodialysis catheter placement. Radiologist: Dr. Izquierdo Anesthesia: Continuous monitoring was provided by independent qualified radiology nursing personnel under physician supervision. Medications: 100 mcg of fentanyl Contrast: None Fluoroscopy time: 0.4 minutes Reference air Kerma: 3 mGy Complications None. Conscious sedation time: None Technique: Risks, benefits, and alternatives were discussed. All questions were answered and informed consent was obtained. Automated radiation exposure lowering techniques were utilized. Hand hygiene performed. The neck and chest were prepped and draped in the appropriate sterile fashion. A initial ultrasound of the neck demonstrated a patent, compressible vein free of clot suitable for access. A permanent ultrasound image was obtained. Under ultrasound guidance, a micropuncture needle was advanced into the vein. Nonpulsatile blood was noted. An 018 wire was advanced appropriately to confirm venous placement and the needle exchanged for the micropuncture dilator set. Attention was then turned to creation of the tunnel. The skin exit site was chosen. Local anesthesia was instilled and a skin wero made. Local anesthesia was administered into the tunnel. The catheter was tunneled to the neck access site. The micropuncture set was upsized over an 035 Amplatz to a peel-away sheath. The tip of the catheter was then passed through the peel-away sheath after wire removal. A final AP image of the chest demonstrated tip of the catheter to reside at the cava atrial junction. The catheter genevieve and flushed easily. A cap was placed. 2-0 silk suture was used to secure the catheter at the skin exit site. Skin glue was used at the neck access site. Sterile dressings were placed at the skin exit site. Patient left the angiography suite in stable condition. Impression: Status post placement of a right internal jugular vein single lumen 5 Austrian by 19 cm tip to cuff tunneled central venous catheter. The catheter is okay to use. Finalized by Juana Izquierdo MD on 10/13/2024 5:39 PM MR ankle right without contrast Result Date: 10/08/2024 Narrative: MR RIGHT ANKLE CLINICAL INFORMATION: Pain. COMPARISON: None. PROCEDURE: Routine MRI of the ankle performed. Multisequence, multiplanar imaging was obtained. FINDINGS: OSSEOUS STRUCTURES AND JOINTS Bones: No acute bone marrow signal abnormality in the ankle region. Tibiotalar joint: Small joint effusion. Chondral thinning. No osteochondral injury. Subtalar joint: No focal abnormality. Tarsal joints: Within normal limits. SOFT TISSUES Muscles: No gross muscular abnormality. Tarsal tunnel: Normal. Sinus tarsi: Normal. Plantar fascia: No gross abnormality. Intact aponeurotic attachment. There is abnormal signal within the subcutaneous and cutaneous signals of the plantar aspect of the heel and along the lateral aspect of the ankle region. Subcutaneous heterogeneity is present compatible with edema. TENDONS Achilles tendon: Normal distally. Posterior tibial tendon: Normal. Flexor digitorum longus tendon: Normal. Flexor hallucis longus: Normal. Peroneus longus tendon: Normal. Peroneus brevis tendon: Normal. Peroneal retinaculum: Normal. Anterior tibial tendon: Normal. Extensor hallucis longus: Normal. Extensor digitorum longus: Normal. LIGAMENTS Anterior inferior tibiofibular (syndesmotic) ligament: Normal. Posterior inferior tibiofibular (syndesmotic) ligament: Normal. Anterior talofibular ligament: Normal. Posterior talofibular ligament: Normal. Calcaneofibular ligament: Normal. Deltoid ligament complex (superficial): Normal. Deltoid ligament complex (deep): Normal. Spring ligament: Within normal limits. IMPRESSION: 1. Cutaneous and subcutaneous irregularity along the dorsal aspect of the ankle and in the plantar aspect of the heel compatible with edema/cellulitis. No abscess or focal abnormality evident. 2. No osseous abnormality within the ankle region. 3. No gross ligamentous or musculotendinous injury. Finalized by Jeremías Vegas MD on 10/08/2024 1:31 PM Vas art doppler lwr bilat mult lev/PVR Result Date: 10/07/2024 Narrative: Right: Essentially normal PVR waveform contour at all levels. No calf waveform augmentation noted. PT SHANTA is 0.92; DP SHANTA is 1.00. Multiphasic with diastolic flow reversal PT and DP, CW Doppler waveforms. Left: Essentially normal PVR waveform contour at all levels. No calf waveform augmentation noted. PT SHANTA is 0.96; DP SHANTA is 0.92. Multiphasic with diastolic flow reversal PT and DP, CW Doppler waveforms. General: Brachial pressures could not be performed due to patient positioning difficulties. Conclusions: BILATERAL:Normal lower extremity SHANTA at rest. Unable to obtain left brachial pressure due to patient positioning. Recommendations: Any questions prior to finalization, please call the reading physician during normal business hours at the phone number beside their name. Vas art duplex lwr bilateral Result Date: 10/06/2024 Narrative: Right: Plaque and spectral waveforms with diastolic flow reversal noted in the external iliac, common femoral, deep femoral, superficial femoral, popliteal, peroneal, posterior and anterior tibial artery without significant color flow disturbance. Left: Plaque with multiphasic waveforms and diastolic flow reversal in the common femoral, deep femoral, proximal thru mid superficial femoral and anterior tibial artery. Low resistive and hyperemic distal SFA waveforms. Monophasic popliteal, posterior tibial and peroneal artery waveforms. General: In-patient, bedside examination. Conclusions: BILATERAL: Arterial plaque with no hemodynamically significant stenosis of the lower extremity. Recommendations: Any questions prior to finalization, please call the reading physician during normal business hours at the phone number beside their name. EEG Video Monitoring Daily Result Date: 10/05/2024 Narrative: Images from the original result were not included. [facility] EEG Report EEG Service Date: 10/05/2024 06:00 until 10/04/2026 11:07. Day 3 of recording Date of Report: 10/05/2024 History: 63 year old man with concern for seizures Medications: Fentanyl Technique: This EEG was acquired with electrodes placed according to the 10-20 electrode placement system. A single EKG channel was recorded for cardiac rhythm monitoring. Video was recorded simultaneously. The quality of recording was good. The entire EEG study along with video for selected events was reviewed. EEG Classification: Abnormal I State of Consciousness: Awake and asleep EEG Findings: 1.) Dominant Rhythm: A PDR of up to 6 Hz was seen 2.) Background: The background was slow, with a PDR of up to 6 Hz. Reactivity to external stimuli was appreciated. Slow wave stage N3 sleep was seen often. EKG artifact was seen at times. 3.) There is continuous slow, generalized, underlying delta > theta waves, seen throughout the recording. 4.) HR 60-62 BPM, regular Impression: This vEEG is indicative of mild to moderate diffuse encephalopathy. No epileptiform discharges or lateralizing signs were seen. In comparison with yesterday's recording, there is no significant change. Court De Los Santos MD [facility] EEG Video Monitoring Daily Result Date: 10/05/2024 Narrative: Images from the original result were not included. [facility] [employer] EEG Report EEG Service Date: 10/04/2024 06:00 until 10/04/2026 23:02. Day 2 of recording Date of Report: 10/05/2024 History: 63 year old man with concern for seizures Medications: Fentanyl Technique: This EEG was acquired with electrodes placed according to the 10-20 electrode placement system. A single EKG channel was recorded for cardiac rhythm monitoring. Video was recorded simultaneously. The quality of recording was good. The entire EEG study along with video for selected events was reviewed. EEG Classification: Abnormal I State of Consciousness: Awake and asleep EEG Findings: 1.) Dominant Rhythm: A PDR of up to 6 Hz was seen 2.) Background: The background was slow, with a PDR of up to 6 Hz. Reactivity to external stimuli was appreciated. Slow wave stage N3 sleep was seen often. EKG artifact was seen throughout the recording. 3.) There is continuous slow, generalized, underlying delta > theta waves, seen throughout the recording. 4.) HR 60-64 BPM, regular Impression: This vEEG is indicative of mild to moderate diffuse encephalopathy. No epileptiform discharges or lateralizing signs were seen. In comparison with yesterday's recording, there is a slight improvement due to a decrease in the degree of encephalopathy. Court De Los Santos MD [facility] EEG Video Monitoring Daily Result Date: 10/05/2024 Narrative: Images from the original result were not included. [facility] [employer] EEG Report EEG Service Date: 10/04/2024 00:12 until 10/04/2026 06:00. Day 1 of recording Date of Report: 10/04/2024 History: 63 year old man with concern for seizures Medications: Fentanyl Technique: This EEG was acquired with electrodes placed according to the 10-20 electrode placement system. A single EKG channel was recorded for cardiac rhythm monitoring. Video was recorded simultaneously. The quality of recording was good. The entire EEG study along with video for selected events was reviewed. EEG Classification: Abnormal II State of Consciousness: Stupor EEG Findings: 1.) Dominant Rhythm: No clear PDR was seen 2.) Background: The background was slow, without a PDR. Reactivity to external stimuli was appreciated. No progressive sleep stages were seen. Of note, EMG artifact was seen often during the recording. 3.) There is continuous slow, generalized, underlying delta > theta waves, seen throughout the recording. 4.) HR 60-64 BPM, regular Impression: This vEEG is indicative of moderate diffuse encephalopathy. No epileptiform discharges or lateralizing signs were seen. EMG artifact was seen throughout the recording. 10 uV Sensitivity, EMG artifact Court De Los Santos MD [facility] Baseline Routine EEG Result Date: 10/04/2024 Narrative: Images from the original result were not included. [facility] EEG Report Length of Study: 30 minutes EEG Service Date: 10/03/2024 History: 63 year old man with concern for seizures Medications: Fentanyl Technique: This EEG was acquired with electrodes placed according to the 10-20 electrode placement system. A single EKG channel was recorded for cardiac rhythm monitoring. The quality of recording was good. EEG Classification: Abnormal II State of Consciousness: Stupor EEG Findings: 1.) Dominant Rhythm: No clear PDR was seen 2.) Background: The background was slow, without a PDR. Reactivity to external stimuli was appreciated. No progressive sleep stages were seen. 3.) Activating procedures: Hyperventilation was not performed. Photic stimulation was performed, but did not produce significant changes. 4.) There is continuous slow, generalized, underlying delta > theta waves, seen throughout the recording. 5.) HR 64-68 BPM, regular Impression: This EEG is indicative of moderate diffuse encephalopathy. No epileptiform discharges or lateralizing signs were seen. Court De Los Santos MD [employer] [facility] CT brain without contrast Result Date: 10/03/2024 Narrative: History: Transient alteration of awareness Technique: Contiguous axial images through the brain were obtained without the administration of intravenous contrast material. Automated exposure control was utilized. Comparison: 09/28/2024 Findings: The ventricles are normal in size. There is no evidence of midline shift. There are no areas of abnormal density to suggest presence of acute major vessel infarct, mass lesion, or hemorrhage. The visualized osseous structures are intact. Impression: Normal CT brain. All CT scans at this facility use dose modulation, iterative reconstruction, and/or weight based dosing when appropriate to reduce radiation dose to as low as reasonably achievable. Finalized by Magy Gutierres MD on 10/03/2024 11:03 PM X-ray chest 1 view Result Date: 10/03/2024 Narrative: EXAM: Chest, one view REASON FOR EXAM: dyspnea TECHNIQUE: Single AP view of the chest COMPARISON: 09/29/2024, 09/28/2024 FINDINGS: Right neck central line terminates projecting over the expected location of the SVC. The trachea is midline. Cardiomediastinal silhouette is prominent, enhanced by AP technique. There are questioned left retrocardiac air bronchograms. Possible small left pleural effusion. IMPRESSION: Possible left retrocardiac pulmonary infiltrate. Likely small left pleural effusion. Finalized by Sabian Garcia MD on 10/03/2024 9:58 PM MR ankle left without contrast Result Date: 10/03/2024 Narrative: History: Osteomyelitis suspected, ankle, xray done Wound left heel Comparison left calcaneus x-rays from October 01 PROCEDURE: Multiplanar multisequence images performed the left ankle MR ANKLE LT WO CONT Multiplanar multisequence MR imaging performed through the ankle. Findings: Extensive edema within the calcaneus consistent with osteomyelitis at its posterior aspect. Mild reactive retrocalcaneobursitis and periostitis along the plantar aspect of the calcaneus Moderate reactive effusion tibiotalar and subtalar joint Extensive soft tissue swelling of the subcutaneous tissues along the lateral dorsum of the foot which could be edema and/or cellulitis. No well-defined abscess Mild arthritic findings of the intertarsal articulations Plantar fascia unremarkable. The Achilles tendon, the peroneal tendons, and the tendons of the tarsal tunnel are unremarkable. The deltoid ligaments, talofibular ligaments, and calcaneofibular ligaments are unremarkable. The sinus tarsi is unremarkable. Angle of Gissane is unremarkable. The talar dome, tibiotalar joint, and subtalar joint are otherwise unremarkable Lisfranc ligament intact IMPRESSION: Extensive edema within the calcaneus consistent with osteomyelitis at its posterior aspect. Mild reactive retrocalcaneal bursitis and periostitis along the plantar aspect of the calcaneus Moderate reactive effusion tibiotalar and subtalar joint Extensive soft tissue swelling of the subcutaneous tissues along the lateral dorsum of the foot which could be edema and/or cellulitis. No well-defined abscess Mild arthritic findings of the intertarsal articulations Finalized by Rigoberto Mobley MD on 10/03/2024 8:51 PM X-ray calcaneus left minim[place] 2 views Result Date: 10/02/2024 Narrative: History: Evaluate for osteomyelitis. Exam/Technique: AP and Hale view of the calcaneus. Comparison: 09/07/2024. Findings: Marked osteopenia. Marked soft tissue swelling of the midfoot. No emphysematous changes. Significant remodeling of the hindfoot articulations with likely degenerative changes. No destructive changes of the calcaneus. IMPRESSION: No destructive changes of the calcaneus or the talocalcaneal articulation. Marked soft tissue edema and swelling. Finalized by Sree Weber MD on 10/02/2024 1:03 AM X-ray chest 1 view Result Date: 09/29/2024 Narrative: HISTORY: Central line placement COMPARISON: Chest x-ray 09/28/2024 FINDINGS: Portable AP upright view of the chest was performed. Right jugular venous catheter tip overlies the SVC. Cardiac silhouette is enlarged but stable. Left basilar airspace disease. No significant vascular congestion, pleural effusion or pneumothorax. Partially visualized cervical fusion hardware. IMPRESSION: * Appropriately positioned right jugular venous catheter. * Left basilar atelectasis versus pneumonia. Finalized by Quincy Newell MD on 09/29/2024 10:19 AM X-ray chest 1 view Result Date: 09/28/2024 Narrative: XR CHEST 1 VW 09/28/2024 10:45 PM INDICATION: Chest pain COMPARISON: [facility] dating back to 08/23/2024 TECHNIQUE: AP portable upright view the chest was obtained. FINDINGS: Left basilar patchy opacity. There is no pneumothorax. Similar mild blunting of the right costophrenic angle.. The cardiomediastinal silhouette is unremarkable. No acute osseous abnormalities. IMPRESSION: Left basilar patchy opacity, nonspecific possibly related to pneumonia in the appropriate clinical setting. Finalized by Morgan Horvath on 09/28/2024 11:18 PM HOSPITAL PROBLEM LIST Principal Problem: Closed displaced comminuted fracture of shaft of left femur, [place] Active Problems: Pressure injury of deep tissue of right heel Pressure injury of left heel, stage 4 [place] Pressure injury of sacral region, stage 3 [place] Quadriplegia, C1-C4, complete [place] Subacute osteomyelitis of left foot [place] Stage 5 chronic kidney disease not on chronic dialysis [place] Iron deficiency anemia secondary to inadequate dietary iron intake Hyperkalemia ASSESSMENT & PLAN Closed fracture left femur: Orthopedic surgery consult. Likely not candidate for surgical intervention. Appreciate Orthopedic input. If patient would need surgical intervention, would have to transfer to higher level of care. Quadriplegia: Supportive care. Offloading of pressure points. Subacute osteomyelitis: Previously seen at [facility] and was discharged with IV antibiotics in the outpatient setting. Antibiotics to be continued until November 17. Will resume/continue outpatient IV antibiotics while admitted. No coverage for infectious disease. If any issues with antibiotics, will need transferred for infectious disease input. CKD 5: Patient did see Nephrology group at [place] and patient was not candidate for dialysis. Monitor kidney function daily. Iron-deficiency anemia: Hemoglobin 7.1 on admission. Down to 6.1 today. 1 unit packed red blood cells ordered. Awaiting blood to be delivered. No overt signs of bleeding. Hyperkalemia: Insulin and glucose ordered. Monitor potassium q.4 hours x2. Pressure injuries: Wound team consulted. Nutrition consult. Admission orders placed and home medications reconciled. DVT prophylaxis: EPC's and no pharmacological intervention secondary to anemia requiring blood transfusion. GI prophylaxis. Protonix PT/OT to evaluate and treat. DC planning: Coarse pending. Plan to transfuse packed red blood cells and monitor response. Appreciate Orthopedic input about femur fracture. Alan Powell APRN-RADHA, 10/23/2024 11:24 AM [facility] 7AM-7PM (all facilities): EpicChat or page through Vocera. 7PM-7AM ([facility], [facility]): EpicChat or page, [phone]. 7PM-7AM ([place], [place], [place], [place] and [facility]): EpicChat or page through Vocera. This note is dictated with the use of M*Modal. Please note that this dictation was completed with computer voice recognition software. Quite often unanticipated grammatical, syntax, homophones, and other interpretive errors are inadvertently transcribed by the computer software. Please disregard these errors. Please excuse any errors that have escaped final proofreading. JUDITH Serrato Physician Attestation: I have reviewed the above note authored by the Advance Practice Provider (KADEEM) including history, review of systems, physical examination, medical decision making and agree with the assessment & plan. I have personally performed a face to face diagnostic evaluation on this patient. I have reviewed all laboratory findings and imaging reports/films. I have independently evaluated the patient and repeated beard portions of the physical exam. I agree with the KADEEM plan as above, unless otherwise noted. HOMER DUBOSE MD Had over 30 mins of discuss about Goals of care. Introduced DNR CCA/DNI. and patient at bedside. Will consider and review tomorrow. documented in this encounter [facility] [facility] 10-22-2024 Nurse Note Consult called out to Orthopedic Surgery, page sent per molded goods operator. [facility] [facility] 10-22-2024 Plan of care note Problem: Multi-Drug Resistant Organism / Rule-Out Infection Prevention Goal: Prevent transmission of infection Description: INTERVENTIONS 1. Place patient in private room or in room with patient with same disease 2. Discard single-use items 3. Clean reusable equipment between patients 4. Wear gloves for direct and indirect contact with patient or contaminants 5. Change gloves between tasks and procedures 6. Wash hands before and after caring for each patient 7. Wear appropriate personal protective equipment in relation to the indicated isolation type 8. Place appropriate isolation signage on patient's door 9. Provide patient/ patient real estate representative with isolation education. Outcome: Progressing Problem: Pain Goal: Patient goal is pain score less than 4, able to rest, and participant in treatment plan as appropriate Description: INTERVENTIONS: 1. Encourage patient or legal real estate representative to report early pain and ask for pain medicine when needed 2. Assess pain using appropriate pain scale and include the scale used when documenting 3. Administer analgesics based on type and severity of pain and evaluate response within appropriate time frame 4. Implement non-pharmacological measures as appropriate and evaluate response 5. Consider cultural and social influences on pain and pain management 6. Notify LIP if interventions ineffective or patient reports new pain 7. Monitor vital signs including pulse ox, end-tidal CO2 based on pain intervention 8. Reassess pain per policy 9. Teach patient or legal real estate representative interventions for comforting Outcome: Progressing Problem: Safety Goal: Patient will be injury free during hospitalization Description: INTERVENTIONS: 1. Assess patient's risk for falls and implement fall prevention plan of care per policy 2. Provide and maintain a safe environment 3. Proper use of double Identifiers 4. Medication administration using the 5 rights 5. Hand hygiene 6. Specimens are labeled at the bedside 7. Instruct patient/ patient real estate representative about use of safety devices 8. Include patient/ patient real estate representative in decisions related to safety Outcome: Progressing Problem: Infection Goal: Absence of infection during hospitalization Description: INTERVENTIONS 1. Assess and monitor for signs and symptoms of infection. 2. Monitor lab/diagnostic results. 3. Monitor all insertion sites i.e., indwelling lines, tubes and drains. 4. Monitor endotracheal (as able) and nasal secretions for changes in amount and color. 5. Administer medications as ordered. 6. Instruct and encourage patient and family to use good hand hygiene technique. 7. Identify and instruct patient/patient real estate representative in use of appropriate isolation precautions for identified infection/symptoms. 8. Provide and discuss with patient/patient real estate representative on educational MDRO sheet. 9. Encourage and monitor nutritional status daily and consult clothes separator if indicated. 10. Implement neutropenic guidelines as needed. Outcome: Progressing Problem: Knowledge Deficit Goal: Patient/patient real estate representative demonstrates understanding of disease process, treatment plan, medications, and discharge instructions Description: INTERVENTIONS 1. Complete learning assessment and assess knowledge base 2. Provide teaching at level of understanding 3. Provide teaching via preferred learning method(s) Outcome: Progressing Problem: Discharge Planning Goal: Discharge to post-acute care, other facility, or home with appropriate resources Description: Patient's goal is: INTERVENTIONS 1. Conduct assessment to determine patient/family and health care team treatment goals, and need for post-acute services based on payer coverage, community resources, and patient preferences, and barriers to discharge 2. Coordinate with Social work, Care Navigation, and Utilization Review to arrange appropriate level of services according to patient's needs based on patient preference and payer coverage in collaboration with the physician and health care team 3. Address psychosocial, clinical, and financial barriers to discharge as identified in assessment in conjunction with the patient/family and health care team 4. Consult appropriate ancillary services (i.e.. PT/OT/ST, etc) as needed 5. Communicate with and update the patient/family, physician, and health care team regarding progress on the discharge plan 6. Identify discharge learning needs (meds, wound care, etc). 7. Arrange for needed discharge transportation as appropriate Outcome: Progressing Problem: Potential for Compromised Skin Integrity Goal: Skin integrity is maintained or improved Description: Patient's goal is: INTERVENTIONS 1. Perform initial skin assessment on admission and as needed 2. Turn patient every 2 hours and PRN 3. Relieve pressure to bony prominences 4. Avoid shearing 5. Keep skin clean and dry 6. Alternate a full bath with partial baths for elderly 7. Apply lotion/moisturizer on skin 8. Monitor patient's hygiene practices 9. Float heels 10. Collaborate with interdisciplinary team and initiate plans and interventions as needed Outcome: Progressing Goal: Patient's nutritional intake is adequate Description: Patient's goal is: INTERVENTIONS 1. Assess and monitor food intake and supplements, patient food preferences, nausea, vomiting, labs, oral cavity (gums, teeth, tongue, mucosa), proper denture fit, and cultural beliefs 2. Monitor for signs of hypoglycemia and hyperglycemia 3. Collaborate with interdisciplinary team and initiate plan and interventions as ordered 4. Monitor patient's weight 5. Assist patient with meals/food selection 6. Assist patient with eating 7. Allow adequate time for meals 8. Provide pleasant environment during mealtime 9. Increase social contact during mealtimes 10. Plan activities to conserve energy 11. Encourage/perform oral hygiene as appropriate 12. Encourage patient to take dietary supplement as ordered 13. Collaborate with clinical clothes separator 14. Include patient/ patient's real estate representative in decisions related to nutrition Outcome: Progressing Problem: Urinary Incontinence Goal: Perineal skin integrity is maintained or improved Description: INTERVENTIONS 1. Assess genitourinary system, perineal skin, labs (urinalysis), and history of incontinence to include past management, aggravating, and alleviating factors 2. Keep skin clean and dry 3. Apply skin protectant 4. Develop skin care regimen 5. Provide privacy when changing patients incontinence device to maintain their dignity 6. Consider placing an indwelling catheter 7. Collaborate with interdisciplinary team and initiate plans and interventions as needed Outcome: Progressing Problem: Moderate - High Risk Fall Score Description: [place] Fall Score of =/> 25 or indicated by [facility] Assessment Goal: Patient should be free from fall Description: Interventions: 1. [place] to environment 2. Hourly rounds addressing the 4 P's (Pain, Positioning, Possessions, Potty) 3. Clear area of hazards (spills, clutter, electrical cords, unnecessary equipment) 4. Place equipment (bed & TV controls, call light, phone, urinal) within reach 5. Encourage patient to wear glasses and hearing aides as appropriate 6. Maintain bed in lowest position 7. Lock wheels on bed/wheelchair 8. Provide adequate lighting, including night light 9. Assess need for additional bedding, food/fluids, pain med's prior to sleep/routinely 10. Provide gripper slippers or personal non-skid footwear 11. Teach patient and patient real estate representative to maintain environment for safety and engage in all aspects of fall prevention program 12. Remind patient to call for help before getting out of bed 13. Initiate bed/chair/exit alarms supportive devices as appropriate, (chair wedge, no-skid floor mat, raised edge mattress, hip protectors) 14. Locate patient bed assignment for optimal visualization 15. Evaluate and identify Safe Patient Handling Equipment needs 16. Provide supervision when out of bed or chair 17. Utilize gait belt as needed to assist with ambulation 18. Place adaptive equipment (cane, walker) within reach 19. Request patient real estate representative bring adaptive equipment/mobility aids from home or obtain and provide as needed 20. Consult pharmacy regarding effects of med's affecting mobility, cognition, and alternatives 21. Obtain physician order for PT if risk factors associated with mobility are present 22. Obtain physician order for OT as appropriate 23. Utilize diversional activities 24. Educate patient and patient real estate representative how to maintain a safe environment during visitation times (notify nurse prior to leaving bedside) 25. Consider appropriateness of medical or non-medical lab specialist 26. Set up voiding schedule as appropriate (every 2 hours) Outcome: Progressing [facility] 10-22-2024 Physician Emergency department Note Associated Order(s): Splint Application Images from the original note were not included. [facility] - EMERGENCY Pt Name: Jessica Price Birthdate: 1960 Chief Complaint: Chief Complaint Patient presents with Abnormal Lab History of Present Illness: Initial evaluation by at 2:08 PM. 64 y.o. male presents to ED for c/o abnormal lab via EMS. The patient's recent lab work showed a hemoglobin level of less than 6. He also reports falling out of his wheelchair and injuring his left knee lower leg. The patient denies any blood in his stool. Has hx of recent GI bleed. The patient has been hospitalized multiple times in recent weeks for GI bleeds and other issues and has been home without specific complaints other than the normal lab testing and the leg concern. There are no other complaints at this time. History provided by: Patient and spouse emergency management program specialist used?: No Past Medical History: Past Medical History: Diagnosis Date Chronic renal failure, stage 4 (severe) (CMS-HCC) Quadriplegia (CMS-HCC) Past Surgical History: Past Surgical History: Procedure Laterality Date BOWEL RESECTION COLON SURGERY COLOSTOMY DEBRIDEMENT LEFT HEEL Left 10/07/2024 Performed by David Dumont MD at [facility] ESOPHAGOGASTRODUODENOSCOPY DIAGNOSTIC N/A 09/02/2024 Performed by Maryann Villegas MD at [facility] ESOPHAGOGASTRODUODENOSCOPY DIAGNOSTIC N/A 08/30/2024 Performed by Maryann Villegas MD at [facility] SPINAL FUSION c5 and c6 VENA CAVA FILTER PLACEMENT 1998 Family History: No family history on file. Social History: Social History Socioeconomic History Marital status: Tobacco Use Smoking status: Never Smokeless tobacco: Never Vaping Use Vaping status: Never Used Substance and Sexual Activity Alcohol use: Never Drug use: Never Sexual activity: Defer Social Drivers of Health Food Insecurity: No Food Insecurity (10/22/2024) Hunger Screening Food Insecurity - Worry: Never True Food Insecurity - Inability: Never True Transportation Needs: No Transportation Needs (10/22/2024) PRAPARE - Transportation Lack of Transportation (Medical): No Lack of Transportation (Non-Medical): No Interpersonal Safety: Not At Risk (10/22/2024) Humiliation, Afraid, Rape, and Kick questionnaire Fear of Current or Ex-Partner: No Emotionally Abused: No Physically Abused: No Sexually Abused: No Housing Instability: Low Risk (10/22/2024) Housing Instability Housing Instability: No Review of Systems: Review of Systems Gastrointestinal: Negative for abdominal pain, anal bleeding, blood in stool and diarrhea. All other systems are reviewed and are negative except as noted. Physical Exam: ED Triage Vitals Temp Heart Rate Resp BP SpO2 10/22/24 1330 10/22/24 1330 10/22/24 1330 10/22/24 1334 10/22/24 1330 37.1 C (98.7 F) 98 20 (!) 77/42 93 % Temp src Heart Rate Source Patient Position BP Location FiO2 (%) -- -- -- -- -- Vitals: 10/22/24 1915 10/22/24 2027 10/23/24 0500 10/23/24 0836 BP: 109/82 123/80 106/58 Temp: 36.9 C (98.4 F) 37.9 C (100.2 F) TempSrc: Oral Oral Pulse: 84 87 94 Resp: 19 19 18 SpO2: 94% 94% 93% MAP (mmHg): 90 94 72 Height: 182.9 cm (6') Weight: 85.3 kg (188 lb) 85.3 kg (188 lb) 94 Physical Exam Vitals and nursing note reviewed. Constitutional: General: He is not in acute distress. Appearance: Normal appearance. HENT: Head: Normocephalic and atraumatic. Right Ear: External ear normal. Left Ear: External ear normal. Nose: Nose normal. Mouth/Throat: Mouth: Mucous membranes are moist. Pharynx: Oropharynx is clear. Eyes: General: Right eye: No discharge. Left eye: No discharge. Extraocular Movements: Extraocular movements intact. Conjunctiva/sclera: Conjunctivae normal. Cardiovascular: Rate and Rhythm: Normal rate and regular rhythm. Pulses: Normal pulses. Heart sounds: Normal heart sounds. Pulmonary: Effort: Pulmonary effort is normal. Breath sounds: Normal breath sounds. Abdominal: Palpations: Abdomen is soft. Tenderness: There is no abdominal tenderness. Musculoskeletal: General: Normal range of motion. Cervical back: Normal range of motion and neck supple. Left knee: Swelling and deformity present. Left lower leg: Deformity present. Comments: Pt has obvious deformity and crepitance to the distal femur and sig. Swelling to the left knee. Consistent with fracture. Pt has chronic peripheral edema to the lower extremities bilaterally and the paralysis noted as well. Skin: General: Skin is warm and dry. Capillary Refill: Capillary refill takes less than 2 seconds. Neurological: General: No focal deficit present. Mental Status: He is alert and oriented to person, place, and time. Sensory: No sensory deficit. Comments: Pt is paralyzed from the neck down with chronic muscle wasting and sensory loss. Procedure: Splint Application Date/Time: 10/23/2024 11:36 AM Performed by: Lamont Delcid DO Authorized by: Lamont Delcid DO Consent: Consent obtained: Verbal Consent given by: Patient Risks, benefits, and alternatives were discussed: yes Risks discussed: Discoloration, numbness, pain and swelling Alternatives discussed: No treatment and alternative treatment Henderson protocol: Procedure explained and questions answered to patient or proxy's satisfaction: yes Relevant documents present and verified: yes Test results available: yes Imaging studies available: yes Required blood products, implants, devices, and special equipment available: yes Site/side marked: yes Immediately prior to procedure a time out was called: yes Patient identity confirmed: Verbally with patient and arm band Pre-procedure details: Pre-procedure CMS: pt is quadriplegic with permanent paralysis and sensory deficit. Procedure details: Location: Leg Leg location: L upper leg Splint type: Knee immobilizer Supplies: Elastic bandage Attestation: Splint applied and adjusted personally by me Post-procedure details: Post-procedure CMS: Patient vascular is intact distally neurologic is stable and again severely diminished to absent because of the quadriplegia. Distal perfusion: unchanged Procedure completion: Tolerated Post-procedure imaging: not applicable Re-evaluation: Justino Dexter (scribe), documented on behalf and in the presence of Dr. Alicea. 5:[address] Alicea saw the pt and his , she expresses her concern for her ability to get him up stairs and into bed with the knee immobilizer. Dr. Alicea agrees that it is a valid concern, and explains that the pt will be unable to go home. Medical Decision Making . Amount and/or Complexity of Data Reviewed Labs: ordered. Details: Labs notable for: RH positive, protime 17.8, Inr 1.6, potassium 5.3, CO2 18, BUN 100, creatinine 4.31, glucose 146, total protein 5.9, albumin 2.3, RBC 2.45, hemoglobin 7.1, hematocrit 21.9, RDW 18.1, eGFR 14, platelets 141, lymphocyte 0.8 Radiology: ordered. Details: Imaging was independently viewed and is notable for XR femur left: Comminuted impacted mildly angulated and displaced distal femoral fracture. Diffuse osteopenia and demineralization. No definitive proximal injury. The proximal femur and hip are not fully visualized on the provided imaging. XR knee left: Comminuted distal femoral fracture is appreciated. Severe osteoporosis is noted. More chronic appearing deformity in the proximal tibia. Follow-up with orthopedics is advised. Discussion of management or test interpretation with external provider(s): 5:48 PM Spoke with Alan Powell hospitalist, who reviewed the case and is agreeable to admit the patient for further care and evaluation. Risk Prescription drug management. ED Course: Clinical Impressions as of 10/23/24 1138 Closed displaced comminuted fracture of shaft of left femur, initial encounter ([facility]) Stage 5 chronic kidney disease not on chronic dialysis ([facility]) . Transfer of Care: Justino Dexter(scribe), documented on behalf and in the presence of Dr. Alicea. 10/22/2024 4:[address] Alicea accepted sign out from Dr. Delcid. ED Disposition ED Disposition Admit Date/Time FriOct 22, 2024 5:49 PM Comment At this time, the patient has objective evidence of an acute process that will likely require hospitalization for greater than 2 midnights. The patient will be admitted. ED Prescriptions None Scribe Attestation I, Dr. Delcid personally performed the services described in the documentation, as scribed by Dwaine Sotomayor in my presence, and it is both accurate and complete. Please note that portions of this note were completed with a voice recognition program. Efforts were made to edit the dictations but occasionally words are mis-transcribed. Badamsuren Erdenebayar 10/22/24 1413 Badamsuren Erdenebayar 10/22/24 1419 Badamsuren Erdenebayar 10/22/24 1443 Badamsdick Erdenebayar 10/22/24 1501 Badamsuren Erdenebayar 10/22/24 1522 Badamsdick Erdenebayar 10/22/24 1535 Justino Streacker 10/22/24 1614 Justino Streacker 10/22/24 1739 Justino Streacker 10/22/24 1748 Lamont Delcid DO 10/23/24 1138 [facility] Emergency department Note Associated Order(s): Splint Application Images from the original note were not included. [facility] - EMERGENCY Pt Name: Jessica Price Birthdate: 1960 Chief Complaint: Chief Complaint Patient presents with Abnormal Lab History of Present Illness: Initial evaluation by at 2:08 PM. 64 y.o. male presents to ED for c/o abnormal lab via EMS. The patient's recent lab work showed a hemoglobin level of less than 6. He also reports falling out of his wheelchair and injuring his left knee lower leg. The patient denies any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 total) by mouth in the morning and 2 tablets (2 mg total) before bedtime. No current facility-administered medications on file prior to visit. ALLERGIES: Allergies Allergen Reactions Ancef [Cefazolin] Anaphylaxis 11/25/2012 per chart review Iodinated Contrast Media Anaphylaxis 11/25/2012 per chart review Promethazine Anaphylaxis 11/25/2012 per chart review Sulfamethoxazole-Trimethoprim Rash PHYSICAL EXAMINATION: Vital signs: There were no vitals taken for this visit. Telephone visit LABORATORY DATA: Lab Results Component Value Date WBC 9.7 09/08/2024 HGB 10.0 (L) 09/08/2024 HCT 29.9 (L) 09/08/2024 MCV 92 09/08/2024 PLT 278 09/08/2024 Lab Results Component Value Date GLU 85 09/08/2024 CALCIUM 8.6 09/08/2024 SODIUM 138 09/08/2024 K 4.5 09/08/2024 CO2 18 (L) 09/08/2024 BUN 82 (H) 09/08/2024 CREATININE 3.48 (H) 09/08/2024 Lab Results Component Value Date ALT <3 08/29/2024 AST 11 08/29/2024 ALKPHOS 83 08/21/2024 Lab Results Component Value Date INR 1.2 (H) 09/04/2024 INR 1.3 (H) 09/03/2024 INR 1.3 (H) 09/02/2024 PROTIME 14.4 (H) 09/04/2024 PROTIME 15.0 (H) 09/03/2024 PROTIME 15.2 (H) 09/02/2024 IMAGING: Reviewed in [employer] BILLING: Total time spent was 35 minutes: Preparing to see the patient (e.g., review of tests) Obtaining and/or reviewing separately obtained history Performing a medically appropriate examination and/or evaluation Counseling and educating the patient/family/caregiver Ordering medications, tests, or procedures Documenting clinical information in the electronic or other health record ASSESSMENT: Anemia due to chronic kidney disease: At discharge his hemoglobin was improved to 10. While inpatient he received Aranesp therapy. Repeat labs pending to assess kidney function and anemia. If his hemoglobin remains below 10 we will start Retacrit therapy 40 K weekly at home using his home nurse from [facility]. History of intermittent thrombocytopenia: Upon discharge from the hospital his platelet count was normal at 278. Repeat platelet count pending. History of elevated INR. While inpatient his INR was elevated as high as 3.6 on 08/28/2024. Mixing study with reflex factors consistent with vitamin K deficiency. Patient was given 10 mg of IV vitamin K followed by 5 mg oral daily while inpatient. We will continue to monitor INR to ensure it stays in normal range. RECOMMENDATIONS: - repeat CBC, BMP, and coagulation studies pending - if hemoglobin is below 10 we plan to start Retacrit 40 K weekly at home using his home nurse - follow-up visit in 2-3 months. Airam Pettit PA-C Benign Hematology [facility] 09/24/24 11:58 AM Airam Pettit PA-C 09/24/24 1228 documented in this encounter [facility] 09-23-2024 Miscellaneous Notes LM for pt to confirm appt with emch 09/24 at 10:30am documented in this encounter [facility] 09-23-2024 Telephone encounter Note LM for pt to confirm appt with emch 09/24 [facility] 10:[facility] Miscellaneous Notes Spoke with pt to schedule 1 month f/u post discharge with rashaun, also spoke with pt to update communcations and add the spouse's number for appt information [facility] Telephone encounter Note Spoke with pt to schedule 1 month f/u post discharge with rashaun, also spoke with pt to update communcations and add the [facility]'s number for appt [facility] Miscellaneous Notes LM for pt to schedule 1 month outpt f/u with emch documented in this encounter [facility] 09-13-2024 Telephone encounter Note LM for pt to schedule 1 month outpt f/u with emch [facility] Evaluation note Diagnosis Anemia in chronic kidney disease, unspecified CKD stage- Primary Thrombocytopenia ([facility]) Unspecified thrombocytopenia Elevated INR Abnormal coagulation profile documented in this encounter [facility]* Diagnosis Subacute osteomyelitis of left foot ([facility])- Primary Open wound of heel, left, initial encounter documented in this encounter [facility]* Diagnosis Subacute osteomyelitis of left foot ([facility])- Primary Open wound of heel, left, initial encounter Closed displaced comminuted fracture of shaft of left femur, initial encounter ([facility])- Primary Closed displaced comminuted fracture of shaft of left femur, initial encounter ([facility]) Stage 5 chronic kidney disease not on chronic dialysis ([facility]) Hyperkalemia Hyperpotassemia Quadriplegia, C1-C4, complete ([facility]-HCC) Quadriplegia, C1-C4, complete Subacute osteomyelitis of left foot ([facility]) Stage 5 chronic kidney disease not on chronic dialysis ([facility]) Iron deficiency anemia secondary to inadequate dietary iron intake Hyperkalemia Hyperpotassemia Pressure injury of deep tissue of right heel Pressure injury of left heel, stage 4 ([facility]) Pressure injury of sacral region, stage 3 ([facility]) documented in this encounter [facility]* Diagnosis Chronic pain due to trauma- Primary [facility] instructionsNot on filedocumented in this [facility]Pro[facility] SystemInstructionsNot on filedocumented in this encounterProUniversity [facility] SystemInstructionsNot on filedocumented in this encounterProUniversity Hospitals [facility] SystemInstructionsNot on filedocumented in this encounterProUniversity [facility] SystemInstructionsNot on filedocumented in this encounterProUniversity Hospitals [facility] SystemInstructionsNot on filedocumented in this encounterProUniversity [facility]als [facility] Summary Purpose Family History No Family History Records FoundNo Family History Records FoundNo Family History Records FoundNo Family History Records FoundNo Family History Records FoundNo Family History Records FoundNo Family History Records Found Advance Directives Date Activated Date Inactivated Comments 08/20/2024 3:15 PM 09/08/2024 7:36 PM Date Activated Date Inactivated Comments 09/28/2024 10:19 PM 10/14/2024 7:08 PM Date Activated Date Inactivated Comments 08/20/2024 3:15 PM 09/08/2024 7:36 PM Documents on File Type Date Recorded Patient 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 Communications Specialist Expl 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 Durable Power of Palliative Care Specialist 10/20/2024 3:08 PM Living Will 10/20/2024 2:57 PM Documents on File Type Date Recorded Patient Employee Communications Specialist Expl anation Durable Power of Palliative Care Specialist 10/20/2024 3:08 PM Living Will 10/20/2024 2:57 PM Date Activated Date Inactivated Comments 10/22/2024 6:07 PM Date Activated Date Inactivated Comments 09/28/2024 10:19 PM 10/14/2024 7:08 PM Date Activated Date Inactivated Comments 08/20/2024 3:15 PM 09/08/2024 7:36 PM Additional Source Comments (unrecognized sect ion and content) No Status Records FoundNo Status Records FoundNo Status Records FoundNo Status Records FoundNo Status Records FoundNo Status Records FoundNo Status Records Found INFORMATION SOURCE (unrecogn ized section and content) DATE CREATED AUTHOR 09/19/2020 [facility] DATE CREATED AUTHOR AUTHOR'S ORGANIZ ATION 03/06/2023 [facility] DATE CREATED AUTHOR AUTHOR'S ORGANIZ ATION 06/07/2023 [facility] DATE CREATED AUTHOR AUTHOR'S ORGANIZ ATION 10/28/2024 [facility] DATE CREATED AUTHOR AUTHOR'S ORGANIZ ATION 11/02/2024 [facility] DATE CREATED AUTHOR AUTHOR'S ORGANIZ ATION 11/18/2024 [facility] DATE CREATED AUTHOR AUTHOR'S ORGANIZ ATION 11/20/2024 [facility] Care Teams (unrecognized sec tion and content) Art Historian Relationship Specialty Start Date End Date Lawanda Grove MD [address], [place] [address] PCP - General Family Medicine 08/21/24 Art Historian Relationship Specialty Start Date End Date Lawanda Grove MD [address], [place] [address] PCP - General Family Medicine 08/21/24 Art Historian Relationship Specialty Start Date End Date Lawanda Grove MD [address], [place] [address] PCP - General Family Medicine 08/21/24 Art Historian Relationship Specialty Start Date End Date Lawanda Grove MD [address] [place] [address] PCP - General Family Medicine 08/21/24 Art Historian Relationship Specialty Start Date End Date Lawanda Grove MD [address] [place] [address] PCP - General Family Medicine 08/21/24 Art Historian Relationship Specialty Start Date End Date Lawanda Grove MD [address], [place] [address] PCP - General Family Medicine 08/21/24 Art Historian Relationship Specialty Start Date End Date Lawanda Grove MD [address], [place] [address] PCP - General Family Medicine 08/21/24 Art Historian Relationship Specialty Start Date End Date Lawanda Grove MD [address], [place] [address] PCP - General Family Medicine 08/21/24 Reason for Visit (unrecogniz ed section and content) Reason Onset Date Comments Hospital Follow-up 10/12/2024 Reason Comments left calcaneal neena Left heel dressing r emoved moderate amount old drainage serosang on dressing. Hasn't been removed since surgery. Packing removed today. Granular tissue to wound bed Reason Comments Abnormal Lab Specialty Diagnoses / Procedures Referred By Contac t Referred To Contact Diagnoses Closed displaced comminuted fracture of shaft of left femur, initial encounter [facility] Stage 5 chronic kidney disease not on chronic dialysis [facility] Homer Dubose MD [address], [place] [address] Phone: tel: fax: Referral ID Status Reason Start Date Expiration Date Visits Re quested Visits Authorized [id number] 1 1 Scheduled Active and Recently Administ ered Medications (unrecognized section and content) Medication Order 10/25/2024 10/26/2024 10/27/2024 cyanocobalamin tablet 1,000 mcg 1,000 mcg, oral, Daily, First dose on Fri10/22/24 at 2014 0921 (Given - Provider: Taylor Magana RN) 0932 (Given - Provider: Taylor Magana RN) 0900 (Due) DAPTOmycin (CUBICIN) 625 mg in sodium chloride 0.9 % 50 mL IVPB 625 mg, intravenous, at 125 mL/hr, Administer over 30 Minutes, Every 48 hours, First dose on Fri10/24/24 at 0900, Approved Indications: Osteoarticular, Authorizing Service: No ID specialist at hospital, I acknowledge that an appropriate consult is REQUIRED to use this drug at [facility], [facility] and per [facility]-approved policy # MM 1.15: Yes 0928 (New Bag - Provider: Taylor Magana RN)0956 (Stop Bag - Provider: Taylor Magana, RN)0958 (Stop Bag - Provider: Taylor Magana, RN) fentaNYL (DURAGESIC) 100 mcg/hr 1 patch 1 patch, transdermal, Administer over 72 Hours, User Specified (Once every 6 days), First dose on Fri10/29/24 at 0900, Alternate with fentanyl patch 50 mcg every 72 hour. DO NOT GIVE BOTH PATCHES. Look-alike/sound-alike medication - verify indication for use. Remove patch prior to MRI procedure as serious gregg may occur. Remove previous patch, if present, before applying new. fentaNYL (DURAGESIC) 100 mcg/hr 1 patch 1 patch, transdermal, Administer over 72 Hours, Every 72 hours, First dose on Fri10/25/24 at 1630, Look-alike/sound-alike medication - verify indication for use. Remove patch prior to MRI procedure as serious gregg may occur. Remove previous patch, if present, before applying new. 1635 (Medication Applied - Provider: Taylor Magana RN - Comment: L Shoulder) fentaNYL (DURAGESIC) 50 mcg/hr 1 patch 1 patch, transdermal, Administer over 72 Hours, User Specified (Once every 6 days), First dose (after last modification) on Fri10/26/24 at 0900, Alternate with fentanyl 100mcg patch. DO NOT GIVE BOTH PATCHES. Look-alike/sound-alike medication - verify indication for use. Remove patch prior to MRI procedure as serious gregg may occur. Remove previous patch, if present, before applying new. 0931 (Medication Applied - Provider: Taylor Magana RN - Comment: hayleyt) ferrous sulfate tablet 325 mg 325 mg, oral, Daily with breakfast, First dose on Fri10/23/24 at 0800, Give ferrous sulfate 2 hours before or 4 hours after antacids. 0921 (Given - Provider: Taylor Magana RN) 0932 (Given - Provider: Taylor Magana RN) 0800 (Due) fluconazole (DIFLUCAN) tablet 300 mg 300 mg, oral, Daily, First dose on Fri10/22/24 at 2015, HAZARDOUS - Handle with care. Look-alike/sound-alike medication - verify indication for use., Indication: Other, Specify: Osteomyelitis 0921 (Given - Provider: Taylor Magana RN) 0931 (Given - Provider: Taylor Magana RN) 0900 (Due - Provider: Melissa Quezada [facility]) gabapentin (NEURONTIN) capsule 300 mg 300 mg, oral, Bedtime, First dose on Fri10/22/24 at 2200, Look-alike/sound-alike medication - verify indication for use. 2028 (Given - Provider: Jessica Wen, RENETTA) 2206 (Given - Provider: Hayley Freedman RN) 2200 (Due) iron sucrose (VENOFER) 200 mg in sodium chloride 0.9 % 100 mL IVPB 200 mg, intravenous, at 440 mL/hr, Administer over 15 Minutes, Daily, First dose on 10/23/24 at 2030, For 6 doses, Monitor patient for hypersensitivity reactions for at least 30 minutes after the infusion. AVOID the use of H1 antihistamines, such as diphenhydramine, as this may worsen hypersensitivity reactions. Have resuscitation equipment and medications available. 0927 (New Bag - Provider: Taylor Magana RN)0942 (Stop Bag - Provider: Taylor Magana, RENETTA) 1016 (New Bag - Provider: Taylor Magana, RENETTA)1031 (Stop Bag - Provider: Taylor Magana, RN) 0900 (Due) magnesium oxide (MAGOX) tablet 400 mg (COMPLETED) 400 mg, oral, Once, On 10/25/24 at 0930, For 1 dose 1057 (Given - Provider: Taylor Magana RN)1200 (Not Given - Provider: Taylor Magana RN - Reason: Contraindicated - Comment: resched) meropenem (MERREM) 500 mg in sodium chloride 0.9 % 50 mL IVPB 500 mg, intravenous, at 20 mL/hr, Administer over 3 Hours, Every 12 hours, First dose on 10/23/24 at 1400, Indication: Bacteremia, Authorizing Service: No ID, Pulmonary, or budget specialist at hospital 0211 (New Bag - Provider: Moon Norris RN)0511 (Stop Bag - Provider: Moon Norris RN)1435 (New Bag - Provider: Taylor Magana, RENETTA)1557 (Paused - Provider: Taylor Magana RN)1601 (Restarted - Provider: Taylor Magana, RENETTA)1726 (Stop Bag - Provider: Taylor Magana, RENETTA)1726 (Stop Bag - Provider: Taylor Magana, RN)1735 (Stop Bag - Provider: Taylor Magana, RN) 0426 (New Bag - Provider: Jessica Wen RN)0708 (Stop Bag - Provider: Taylor Magana RN)0709 (Stop Bag - Provider: Taylor Magana RN)0726 (Stop Bag - Provider: Taylor Magana RN)1559 (New Bag - Provider: Taylor Magana RN)1610 (Rate/Dose Verify - Provider: Taylor Magana RN)1859 (Stop Bag - Provider: Hayley Freedman RN) 0114 (New Bag - Provider: Hayley Freedman RN)0311 (Stop Bag - Provider: Hayley Freedman RN - Comment: transport here to take patient to facility)1400 (Due) sevelamer (RENVELA) tablet 1,600 mg 1,600 mg, oral, 3 times daily with meals, First dose on Fri10/23/24 at 0800, Look-alike/sound-alike medication - verify indication for use Give with meals Administer other medications 1 hour before or 3 hours after Enteral Feeding: Lanthanum and sevelamer TABLETS are not recommended to be crushed and administered in feeding tube due to risk of clogging tube Alternative: sevelamer carbonate suspension/packets or calcium carbonate per tube 0921 (Given - Provider: Taylor Magana RN)1315 (Given - Provider: Taylor Magana RN)1632 (Given - Provider: Taylor Magana RN) 0931 (Given - Provider: Taylor Magana RN)1400 (Not Given - Provider: Taylor Magana RN - Reason: Other - Comment: pt not eating)1642 (Given - Provider: Taylor Magana RN) 0800 (Due)1200 (Due)1700 (Due) sodium hypochlorite (DAKIN'S 1/4 STRENGTH) 0.125 % external solution 1 Application 1 Application, topical, 2 times daily, First dose on Fri10/25/24 at 2100, Moistened gauze directly to LEFT HEEL wound bed, do not apply over periwound 1923 (Not Given - Provider: Jessica Wen RN - Reason: Other - Comment: changed per day RN) 1012 (Given - Provider: Taylor Magana RN)2100 (Not Given - Provider: Hayley Freedman RN - Reason: Other - Comment: wound care done before shift change) 0900 (Due)2100 (Due) sodium zirconium cyclosilicate (LOKELMA) packet 10 g (COMPLETED) 10 g, oral, Once, On Fri10/25/24 at 1000, For 1 dose, Empty entire contents of the packet(s) into a glass with 3 tablespoons (45 mL) or more water. Stir well and drink immediately; if powder remains in the glass, add water, stir and drink immediately; repeat until no powder remains. Administer other oral medications 2 or more hours before or 2 hours after dose. 1056 (Given - Provider: Taylor Magana RN)1200 (Hold - Provider: Taylor Magana RN - Reason: Other - Comment: see previous dose) sodium zirconium cyclosilicate (LOKELMA) packet 10 g 10 g, oral, Daily with lunch, First dose on Fri10/26/24 at 1630, Empty entire contents of the packet(s) into a glass with 3 tablespoons (45 mL) or more water. Stir well and drink immediately; if powder remains in the glass, add water, stir and drink immediately; repeat until no powder remains. Administer other oral medications 2 or more hours before or 2 hours after dose. 1642 (Given - Provider: Taylor Magana RN) 1200 (Due) trospium (SANCTURA) tablet 20 mg 20 mg, oral, Nightly, First dose on Fri10/22/24 at 2200 2028 (Given - Provider: Jessica Wen RN) 220 (Given - Provider: Hayley Freedman RN) 220 (Due) PRN Medication Order 10/25/2024 10/26/2024 10/27/2024 acetaminophen (TYLENOL) tablet 650 mg 650 mg, oral, Every 6 hours PRN, mild pain - pain scale 1-3, headaches, temperature greater than 38 C, Temperature greater than 38.3 C, Starting on Fri10/22/24 at 2006, [Warning: Total Acetaminophen not to exceed more than 4 grams (4000 mg) in 24 hours] 0406 (Given - Provider: Moon Norris RN) 2206 (Given - Provider: Hayley Freedman RN) dextrose (GLUTOSE) 40 % gel 15 g 15 g, oral, As needed, low blood sugar, blood glucose less than 70 mg/dL, Starting on Fri10/22/24 at 2006, If patient conscious and taking PO. If blood glucose is not greater than 70 mg/dL after initial treatment, repeat treatment. dextrose 5 % (D5W) infusion 100 mL/hr, intravenous, Continuous PRN, blood glucose less than 70 mg/dL, Starting on Fri10/22/24 at 2006, Use immediately following dextrose 50% or glucagon treatment for patients who are unconscious or NPO. Contact prescriber for additional orders. If blood glucose is not greater than 70 mg/dL after initial treatment, repeat treatment. dextrose 50 % in water (D50W) 50% solution 25 g(Linked Group 1) 25 g, intravenous, Once as needed, low blood sugar, as needed for Pre-insulin glucose level 150-250 mg/dL, Starting on Fri10/23/24 at 1122, For 1 dose, VESICANT (RED) Warning: HYPERTONIC solution. dextrose 50 % in water (D50W) 50% solution 25 mL 25 mL, intravenous, As needed, low blood sugar, blood glucose less than 70 mg/dL and unconscious or NPO with IV access, Starting on Fri10/22/24 at 2006, Push over 1-3 minutes STAT. If conscious and not NPO, immediately follow with meal tray or high protein (7 grams) snack if tray not available. If NPO, initiate 5% dextrose in water at 100 mL/hr and contact prescriber for additional orders. If blood glucose is not greater than 70 mg/dL after initial treatment, repeat treatment. VESICANT (RED) Warning: HYPERTONIC solution. glucagon HCL injection 1 mg 1 mg, intramuscular, As needed, low blood sugar, blood glucose less than 70 mg/dL and unconscious or NPO without IV access., Starting on Fri10/22/24 at 2006, If conscious and not NPO, immediately follow with meal tray or high protein (7Grams) snack if tray not available. If NPO, initiate IV 5% Dextrose/Water at 100 mL/hr and contact prescriber for additional orders. If blood glucose is not greater than 70 mg/dL after initial treatment, repeat treatment. midodrine (PROAMATINE) tablet 5 mg 5 mg, oral, 3 times daily PRN, systolic blood pressure <90, Starting on Fri10/22/24 at 2006, Look-alike/sound-alike medication - verify indication for use. ondansetron (PF) (ZOFRAN) injection 4 mg 4 mg, intravenous, Every 6 hours PRN, nausea, vomiting, Starting on Fri10/22/24 at 2006, Administer over 2-5 minutes. sodium chloride 0.9 % flush 3 mL 3 mL, intravenous, As needed, line care, before and after each intermittent use, Starting on Fri10/22/24 at 1424 sodium chloride 0.9 % flush bag 25 mL, intravenous, at 100 mL/hr, Administer over 15 Minutes, As needed, line care, line care after IVPB administration, Starting on Fri10/22/24 at 2006 sodium chloride 0.9 % infusion 20 mL/hr, intravenous, Continuous PRN, to maintain patency of lines, Starting on Fri10/22/24 at 2006 Linked Groups Order Group 1: insulin regular (HumuLIN R,NovoLIN R) injection 10 Units (COMPLETED) 10 Units, intravenous, Once, On 10/23/24 at 1130, For 1 dose, Look-alike/sound-alike medication - verify indication for use. Prandial/supplemental insulin. Stable for 28 days at room temperature. And dextrose 50 % in water (D50W) 50% solution 25 gJump to med 25 g, intravenous, Once as needed, low blood sugar, as needed for Pre-insulin glucose level 150-250 mg/dL, Starting on 10/23/24 at 1122, For 1 dose, VESICANT (RED) Warning: HYPERTONIC solution. And dextrose 50 % in water (D50W) 50% solution 50 g (COMPLETED) 50 g, intravenous, Once as needed, low blood sugar, as needed for Pre-insulin glucose level less than 150 mg/dL, Starting on 10/23/24 at 1122, For 1 dose, VESICANT (RED) Warning: HYPERTONIC solution. Dialysis Access Sites (unrec ognized section and content) Type Status Location Placement Date Removal Da te Hemodialysis Catheter Triple 09/29/24 Right Internal Jugular Inactive Right Neck (side) - Anterior 09/29/2024 10/12/2024 Hemodialysis Catheter Triple 08/29/24 Right Internal Jugular Inactive Right Neck (side) - Anterior 08/29/2024 09/08/2024 FOR RECORDS PERTAINING TO PATIENTS WHO ARE [...] BE BASED ON THE PRIMARY CLINICAL RECORDS. [facility] [employer] [facility]. provides no warranty or guarantee of the accuracy or completeness of information in this document.
[2024-11-20 15:17] LABS: Mean Corpuscular HGB Conc 29.7 g/dL (29.9-35.2); Mean Platelet Volume 10.4 fL (9.5-13.5); Platelet Count 144 10^3/uL (150-450); Red Cell Distribution Width 17.4 % (11.0-15.0); White Blood Count 9.3 10^3/uL (4.0-11.0)
[2024-11-20 15:20] LABS: Bilirubin Urine NEGATIVE (NEGATIVE); Blood Urine MODERATE (NEGATIVE); Clarity Urine CLEAR (CLEAR); Color Urine LT. YELLOW (YELLOW); Glucose Urine UA NEGATIVE (NEGATIVE); Ketones Urine NEGATIVE (NEGATIVE); Leukocyte Esterase Urine LARGE (NEGATIVE); Nitrite Urine NEGATIVE (NEGATIVE); Protein Urine 100 mg/dL (NEG/TRACE); Urobilinogen Urine 0.2 EU/dL (0.2-1.0); pH Urine 5.5 (5.0-9.0)
[2024-11-20 15:25] LABS: Anion Gap 18.9; BUN Creatinine Ratio 18.9; Calcium 7.6 mg/dL (8.5-10.1); Carbon Dioxide 12.7 mmol/L (21.0-32.0); Chloride 112 mmol/L (98-107); Estimated GFR (African America 11 (>=60 mL/min/1.73m^2); Estimated GFR (Non-African Ame 9 (>=60 mL/min/1.73m^2); Glucose 157 mg/dL (74-106); Sodium 137 mmol/L (136-145)
[2024-11-20 15:44] LABS: Potassium 6.6 mmol/L (3.5-5.1)
[2024-11-20 16:32] LABS: Hemoglobin 5.4 g/dL (14.0-18.0)
[2024-11-20 16:33] LABS: Hematocrit 18.2 % (42.0-54.0)
== END 2024-11-20 13:45 | disposition home or self-care (01) ==
LOC: LAB 13:44
PROVIDERS: PCP Family Medicine; Visit Provider Family Medicine
DX: R50.9 Fever, unspecified (principal)
CPT/HCPCS: 36415; 80048; 81003; 85027